=== PATIENT | female | born 1980 | race Caucasian/White ===

== ENCOUNTER 2019-04-14 20:53 | Inpatient (IN) | payer OTHER, SELFPAY ==
--- NOTE | ~2019-04-14 | XR_ITS ---
EXAMINATION: XR chest 2V DATE: 04/15/2019 07:27 INDICATION: Asthma. TECHNIQUE: Frontal and lateral views of the chest were obtained. COMPARISON: Chest single view 07/23/2017 FINDINGS: The chest demonstrates clear lungs without pneumonia, pleural effusion, or pneumothorax. Th e heart size is normal. IMPRESSION: 1. No acute cardiopulmonary disease. Reviewed, dictated and finalized at location A. NING BATH PERSON
--- NOTE | ~2019-04-14 | NM_ITS ---
EXAM: NM gastric emptying study DATE: 04/17/2019 17:10 INDICATION: Frequent nausea and vomiting. Assess for gastroparesis. TECHNIQUE: A gastric emptying study was performed using the methodology of Yeny BATES, et al. J Nucl Med 2007; 48:568-572. The patient was given a meal consisting of 2 scrambled eggs labeled with 1 mCi Tc-99m sulfur colloid, 2 slices of toast, two packages of jam, and approximately 120 mL of water. Si multaneous anterior and posterior 1-min images of the abdomen were obtained with the patient supine a t multiple time points over a total period of 4 hours. The geometric mean of anterior and posterior v iews was determined, and the percentage retention was calculated for each time point. COMPARISON: 07/25/2015 FINDINGS: Gastric retention of the radiotracer-labeled meal was 100%, 97%, and 32% at the 1-hour, 2-hour, and 4 -hour time points, respectively. With this technique, apparent rapid gastric emptying is suggested by <30% gastric retention at 1 hour. Delayed gastric emptying is defined by gastric retention of >90% a t 1 hour, >60% retention at 2 hours, or >10% retention at 4 hours. IMPRESSION: 1. Delayed gastric emptying. Reviewed, dictated and finalized at location A. RVISOR REMELT
[2019-04-14] MEDS: SODIUM CHLORIDE 0.45% 1,000 ML 125 ML IV CONT (23:03)
[2019-04-14 23:05] VITALS: BP 153/91; PULSE 123; RESP 20; TEMP 36.4; O2SAT 98; BMI 42.2
--- NOTE | 2019-04-14 23:14 | PC.NURSE ---
This patient, Alannah Ruano, was admitted to 2 Medical Room 245-. Patient/family oriented to hospital policies and general routines including ID bracelet, bed and alarms, visiting hours, pain management, procedures, bathroom and other care routines, personal items, smoking policy, room service/diet, and visiting hours. Valuables list has been completed. Information on how to activate the Rapid Response Team has been discussed. Patient/Family are encouraged to report perceived risks to care and to ask questions if they do not understand what they are told or what they should do. Dr. Nascimento called and orders received.
[2019-04-14] MEDS: MONTELUKAST SODIUM 10 MG TABLET PO (23:50)
[2019-04-15] VITALS (17 sets, daily range): BP systolic 112–160; BP diastolic 67–98; PULSE 93–116; RESP 12–24; TEMP 36.3–38.1; O2SAT 93–100
[2019-04-15 06:19] LABS: Basophils Absolute Auto 0.1 K/mm3 (0.0-0.1); Basophils Percent Auto 0.6 % (0.2-1.2); Eosinophils Absolute Auto 0.2 K/mm3 (0-0.3); Eosinophils Percent Auto 1.8 % (0-4.4); Hematocrit 40.7 % (37.0-47.0); Hemoglobin 13.9 g/dL (12.0-15.0); Immature Granulocyte Absolute 0.06 K/mm3 (0.00-0.031); Immature Granulocyte Percent A 0.7 % (0-0.5); Lymphocytes Absolute Auto 1.62 K/mm3 (0.9-3.2); Lymphocytes Percent Auto 17.9 % (18.3-44.2); Mean Corpuscular HGB Conc 34.2 g/dl (32-36); Mean Corpuscular Hemoglobin 29.1 pg (26-34); Mean Corpuscular Volume 85.3 fl (80-100); Monocytes Absolute Auto 0.7 K/mm3 (0.1-0.6); Monocytes Percent Auto 8.2 % (2.6-8.5); Neutrophils Absolute Auto 6.4 K/mm3 (1.3-6.7); Neutrophils Percent Auto 70.8 % (45.5-73.1); Platelet Count Result 184 k/mm3 (150-375); Red Blood Count 4.77 M/mm3 (4.2-5.4); Red Cell Distribution Width 12.5 % (11.5-14.5); White Blood Count 9.1 K/mm3 (4.5-10.0)
--- NOTE | 2019-04-15 07:15 | PM.IMHP ---
H&P: HPI History of Present Illness Chief complaint: dm hypertension,perineal abccess Narrative: Alannah Ruano is a 39 year old female Review of Systems Review of Systems: All systems reviewed & are unremarkable except as noted in HPI and below PMFSH Past Medical History Medical History Asthma Eczema GERD (gastroesophageal reflux disease) Kidney stones Migraines PCOS (polycystic ovarian syndrome) Seasonal allergies Surgical History Surgical History S/P cubital tunnel release Left S/P tonsillectomy and adenoidectomy Family History Family History (Updated 04/15/19 @ 07:18 by Whitney Pinto PA-C) Father Family history of heart disease in male family member before age 55 Diabetes mellitus Asthma Hypertension Sibling Hypertension Social History Social History Smoking status: Former smoker Tobacco type: cigarettes Smoking end date: 04/14/19 Alcohol intake: never Substance use: never Gender identity (if verbalized by the patient): Female Spiritual care concerns: No Agree to blood products: Yes Meds Home Medications and Allergies Home Medications Medication Instructions Recorded Confirmed Type Benadryl 25 mg BYMOUTH QID PRN 04/14/19 04/14/19 History albuterol sulfate [ProAir HFA] 2 puff INHALATION QID PRN 04/14/19 04/14/19 History carbamazepine 100 mg BYMOUTH TID 04/14/19 04/14/19 History clonazepam 0.5 mg PO DAILY 04/14/19 04/14/19 History fenofibrate 160 mg PO DAILY 04/14/19 04/14/19 History fexofenadine-pseudoephedrine 1 tablet PO QAM PRN 04/14/19 04/14/19 History [Sherri-D 24 Hour] lisinopril 20 mg PO DAILY 04/14/19 04/14/19 History montelukast [Singulair] 10 mg PO HS 04/14/19 04/14/19 History ondansetron HCl [Zofran] 8 mg PO Q8H PRN 04/14/19 04/14/19 History propranolol 40 mg PO DAILY 04/14/19 04/14/19 History rizatriptan 10 mg PO ONCE PRN 04/14/19 04/14/19 History sertraline 200 mg PO DAILY 04/14/19 04/14/19 History topiramate 400 mg PO DAILY 04/14/19 04/14/19 History Vital Signs Vital Signs - 24 hr 04/14/19 23:05 04/15/19 06:28 Temperature 97.6 F 97.4 F L Pulse Rate 123 H 94 Respiratory Rate 20 18 Blood Pressure 153/91 H 122/67 Pulse Oximetry 98 98 Exam Narrative: Exam Narrative: General: 39-year-old woman laying flat in bed. Appears comfortable. In no acute distress. Skin: No jaundice or cyanosis. Good skin turgor. Neck: Full range of motion. Supple. Nontender. Respiratory: Lungs are clear to auscultation bilaterally. No bony chest wall tenderness. Cardiovascular: The heart has a regular rate and rhythm without murmur. No carotid bruits. Lower extremities: No lower extremity edema. Distal pulses are easily palpated. No calf tenderness to palpation. Gastrointestinal: The abdomen is soft, nontender and nondistended with active bowel sounds. Psychiatric: Lucid and oriented. Memory intact. Neurologic: No focal deficits. Speech is clear. No facial drooping. H&P: Results Labs Labs: Short CBC 04/15/19 Range/Units 04:49 WBC 9.1 (4.5-10.0) K/mm3 Hgb 13.9 (12.0-15.0) g/dL Hct 40.7 (37.0-47.0) % Plt Count 184 (150-375) k/mm3 Quality VTE Prophylaxis VTE prophylaxis: mechanical ordered
--- NOTE | 2019-04-15 07:50 | PC.NURSE ---
Spoke with Dr. Nascimento in regards to patients AM oral medications. Received orders okay to give meds even though patient NPO for surgery today.
[2019-04-15 08:15] LABS: Estimated CRCL calculation 189 ml/min; Estimated Glomerular Filt Rate > 60
[2019-04-15] MEDS: ONDANSETRON INJ 4 MG/2 ML VIAL 8 MG IV PUSH ×2 (08:25→16:28)
[2019-04-15 08:46] LABS: Glucose Point of Care 322 (65-105)
--- NOTE | 2019-04-15 09:09 | PM.IMCN ---
Assessment and Plan Assessment and plan (1) Abscess of right buttock: Code(s): L02.31 - Cutaneous abscess of buttock Status: Acute Assessment and Plan: Dr. Nascimento SEPARATOR OPERATOR [employer] is the admitting physician and is going to take the patient to the OR this afternoon for an I&D. The patient was started on IV vancomycin. Dr. Nascimento consulted infectious disease doctor pattern painter on the case for further evaluation and treatment with IV antibiotics. The patient's pain is improved today rated 3/10. Will continue IV antibiotics at this time. Continue monitoring patient's symptoms and appreciate human resources benefits coordinator and Infectious Disease input. (2) Hyperglycemia due to type 2 diabetes mellitus: Code(s): E11.65 - Type 2 diabetes mellitus with hyperglycemia Status: Acute Assessment and Plan: The patient serum glucose was 322 this morning. The patient is NPO at this time and I gave her 1 dose of 5 units NovoLog. Instructed the nurse to recheck her glucose 2 hours after administration and prior to surgery. Will check hemoglobin A1c in the morning. Continue monitoring glucose ACHS, sliding scale NovoLog as needed, continue patient's home long-acting insulin. Hypoglycemia protocol in place. (3) Nausea & vomiting: Code(s): R11.2 - Nausea with vomiting, unspecified Status: Acute Assessment and Plan: Patient reports multiple episodes of vomiting over the last few days. Currently she is no longer nauseous. Continue IV Zofran as needed for nausea. (4) Essential (primary) hypertension: Code(s): I10 - Essential (primary) hypertension Status: Acute Assessment and Plan: Patient's blood pressure was elevated on arrival. Today BP is 120/70. Will continue monitoring her blood pressure and continue her home medications. [facility] Data of Consult Consult date: 04/15/19 Requesting Physician: Kylee Nascimento MD Primary Care Provider: Bisi Low, PA-C Consult Narrative Narrative: Alannah Ruano is a 39 year old female with a history of diabetes mellitus type 2, asthma, chronic sinusitis, who was directly admitted by Dr. Nascimento fws faculty assistant for further evaluation and treatment for right buttock abscess. The patient reports having multiple abscesses over the last few months. She had 1 over her right shoulder, and on her stomach which both opened and drained on their own. Then she had a abscess on her labia that she saw Dr. Nascimento and he performed an I&D. The patient reports having swelling, pain, warmth to her right buttock which has been gradually worsening since Saturday (4 days). The patient reports associated symptoms of nausea, vomiting, decreased appetite, subjective fevers and chills. The patient called Dr. Nascimento's office for an appointment yesterday and upon his evaluation he decided to directly admit her into the hospital for IV antibiotics and to take the patient to the OR for an I and D. The patient states her glucose is normally well controlled in ranges about 120 before breakfast and around 140 before dinner. She states when she is normally sick she changes her diet to a Brat diet and this normally cause her glucose was to be more elevated than normal and she is normally unable to keep her glipizide down and does not administer her insulin. She has not taken her diabetes medication since Saturday when her symptoms began. Currently the patient's pain to her buttock is rated 3/10. She was taking Tylenol and Excedrin as needed at home with only slight relief. She reports having headache to the back of her head which is ?aching? in nature. She denies any vision changes, neck pain, neck stiffness. She also reports sinus pressure, postnasal drip, and a dry cough. She denies any dysuria, frequent urination, calf pain, leg swelling, chest
[2019-04-15] MEDS: INSULIN ASPART (*BKC) 100 UNITS/ML SUB-Q ×2 (09:35→16:31)
[2019-04-15] MEDS: SODIUM CHLORIDE 0.45% 1,000 ML 125 ML IV CONT ×2 (09:40→21:52)
--- NOTE | 2019-04-15 12:12 | WPDINFPN2 ---
Progress Note: A&P Assessment and Plan (1) Abscess of right buttock: Code(s): L02.31 - Cutaneous abscess of buttock Status: Acute Assessment and Plan: perirectal abscess. DM, poor control REC AmpSulbactam #1, Vanc #2. Request intra-operative cultures: Aerobic and anaerobic. Subjective Date/time seen: 04/15/19 12:12 Objective Data Vital Signs Vital Signs: Vital Signs - 24 hr 04/14/19 23:05 04/15/19 06:28 Temperature 36.4 C 36.3 C L Pulse Rate 123 H 94 Respiratory Rate 20 18 Blood Pressure 153/91 H 122/67 Pulse Oximetry 98 98 Intake/Output Intake/Output: Intake & Output 04/12/19 04/13/19 04/14/19 04/15/19 23:59 23:59 23:59 23:59 Intake Total 1500 Output Total 600 Balance 900 Meds/Results Medications: Active Medications Generic Name Dose Route Start Last Admin Trade Name Freq PRN Reason Stop Dose Admin Acetaminophen 650 mg 04/14/19 22:28 Tylenol Tablet PO Q4H PRN Pain or Fever Albuterol 2 puff 04/14/19 22:30 Proventil Hfa INHALATION QIDRT PRN Shortness Of Breath Carbamazepine 100 mg 04/15/19 09:00 04/15/19 09:05 Tegretol Chew BY MOUTH 05/15/19 09:01 Not Given TID CARMEN Clonazepam 0.5 mg 04/15/19 09:00 04/15/19 09:05 Klonopin Tablet PO Not Given DAILY CARMEN Dextrose 12.5 gm 04/15/19 09:03 Dextrose 50% Syringe IV PUSH PRN PRN Hypoglycemia Protocol Diphenhydramine HCl 25 mg 04/14/19 22:30 Benadryl Cap BY MOUTH QID PRN Itching Fenofibrate 160 mg 04/15/19 09:00 04/15/19 09:05 Fenofibrate PO Not Given DAILY [facility] Fentanyl Citrate 100 mcg 04/15/19 07:47 04/15/19 11:06 Sublimaze IV PUSH 100 mcg Q2H PRN Administration PAIN 7-10 Glucagon 1 mg 04/15/19 09:03 Glucagon For Inj IM PRN PRN Hypoglycemia Protocol Glucose 15 gm 04/15/19 09:03 Glutose 15 PO PRN PRN Hypoglycemia Protocol Sodium Chloride 1,000 mls @ 125 mls/hr 04/14/19 22:25 04/15/19 09:40 Sodium Chloride 0.45% IV CONT 125 mls/hr .Q8H CARMEN Administration Vancomycin HCl 1,750 mg in 500 mls @ 250 mls/hr 04/15/19 12:00 Vancomycin 1,750 Mg/D5w 500 Ml IVPB Q12H CARMEN Dextrose 1,000 mls @ 100 mls/hr 04/15/19 09:03 Dextrose 5% 1,000 Ml IVPB PRN PRN Hypoglycemia Protocol Insulin Aspart 2 - 5 units 04/15/19 12:00 Novolog SUB-Q TIDWM CARMEN Protocol Lisinopril 20 mg 04/15/19 09:00 04/15/19 09:05 Prinivil PO Not Given DAILY [facility] Loratadine/Pseudoephedrine Sulfate 1 tab 04/14/19 22:30 Claritin-D 24 Hour Tablet PO QAM PRN Allergy Symptoms Montelukast Sodium 10 mg 04/14/19 23:30 04/14/19 23:50 Singulair PO 10 mg HS CARMEN Administration Ondansetron HCl 8 mg 04/15/19 07:48 04/15/19 08:25 Zofran Inj IV PUSH 8 mg Q8HR PRN Administration Nausea Propranolol HCl 40 mg 04/15/19 09:00 04/15/19 09:05 Inderal PO Not Given DAILY [facility] Rizatriptan Benzoate 10 mg 04/14/19 22:30 Maxalt Sander Portable Machine PO DAILY PRN Headache Sertraline HCl 200 mg 04/15/19 09:00 04/15/19 09:05 Zoloft PO Not Given DAILY [facility] Topiramate 200 mg 04/15/19 09:00 04/15/19 09:05 Topamax PO Not Given BID [facility] Radiology Results: ITS Impressions Chest X-Ray 04/15/19 07:29 IMPRESSION: 1. No acute cardiopulmonary disease. Labs Labs: Laboratory Results - last 24 hr 04/15/19 04/15/19 04/15/19 04:49 07:58 08:32 WBC 9.1 RBC 4.77 Hgb 13.9 Hct 40.7 MCV 85.3 MCH 29.1 MCHC 34.2 RDW 12.5 Plt Count 184 MPV 9.0 Immature Gran % (Auto) 0.7 H Neut % (Auto) 70.8 Lymph % (Auto) 17.9 L [place] % (Auto) 8.2 Eos % (Auto) 1.8 Baso % (Auto) 0.6 Lymph # (Auto) 1.62 [place] # (Auto) 0.7 H Eos # (Auto) 0.2 Baso # (Auto) 0.1 Abs Immat Gran (auto) 0.06 H Absolute Neuts (auto) 6.4 Absolute Nuclea
--- NOTE | 2019-04-15 12:26 | PM.IMHP ---
H&P: HPI History of Present Illness Chief complaint: dm hypertension,perineal abccess Narrative: Alannah Ruano is a 39 year old female she has recurrence vulvar and perineal abscesses. She presented yesterday with a painful abscess at the right gluteal fold, medially. It is been present and getting worse for about a week. There has been no discharge from the area. It is firm and hard. It covers a a large area according to the patient. We have drained 2 previous abscess in this area over the last year. Her pelvis complicated by obesity, diabetes and hypertension. She reports feeling a fever. She says she measured a fever at home. She denies any nausea or vomiting. She denies any chest pain or shortness of breath. Review of Systems Constitutional: Constitutional: Reports no additional constitutional complaints, Denies fatigue, Denies headache(s), Denies lethargy and Denies weakness Eyes: Eyes: Reports no additional eye complaints, Denies blurry vision and Denies photophobia ENT: Reports as per HPI, Denies headache(s) and Denies neck pain Cardiovascular: Cardiovascular: Denies chest pain, Denies diaphoresis, Denies leg edema, Denies palpitations and Denies dyspnea Respiratory: Respiratory: Denies hemoptysis, Denies dyspnea and Denies wheezing Gastrointestinal: Gastrointestinal: Denies abdominal pain, Denies melena, Denies bloating, Denies hematochezia, Denies nausea and Denies vomiting Genitourinary: Genitourinary: Reports no additional female genitourinary complaints Musculoskeletal: Musculoskeletal: Denies joint swelling, Denies neck pain, Denies numbness and Denies stiffness Neurologic: Denies Abnormal speech present, Denies confusion, Denies headache(s), Denies numbness and Denies weakness Psychiatric: Psychiatric: Denies anxiety, Denies confusion, Denies depression, Denies homicidal ideation and Denies suicidal ideation Endocrine: Endocrine: Denies fatigue and Denies palpitations Allergic/Immunologic: Allergic/Immunologic: Denies wheezing PMFSH Past Medical History Medical History (Updated 04/15/19 @ 11:14 by Whitney Pinto PA-C) Asthma Chronic sinusitis Diabetes mellitus Eczema Essential (primary) hypertension GERD (gastroesophageal reflux disease) HLD (hyperlipidemia) Kidney stones Migraines PCOS (polycystic ovarian syndrome) Seasonal allergies Surgical History Surgical History (Updated 04/15/19 @ 11:14 by Whitney Pinto PA-C) S/P cubital tunnel release Left S/P myringotomy with insertion of tube S/P nasal surgery Dr. Grimm for chronic sinusitis S/P tonsillectomy and adenoidectomy Family History Family History (Updated 04/15/19 @ 11:16 by Whitney Pinto PA-C) Father Family history of heart disease in male family member before age 55 Diabetes mellitus Asthma Hypertension Acute myocardial infarction Cerebrovascular accident COPD (chronic obstructive pulmonary disease) Sibling Hypertension Mother COPD (chronic obstructive pulmonary disease) Grandparent Cerebrovascular accident Alzheimer disease Parkinson disease Social History Social History (Updated 04/15/19 @ 11:17 by Whitney Pinto PA-C) Smoking status: Never smoker Alcohol intake: never Substance use: never Additional living arrangements comments: Lives in [place], [place] Occupation/Education: occupation Additional occupation/education comments: Works at a [employer] Gender identity (if verbalized by the patient): Female Spiritual care concerns: No Agree to blood products: Yes Meds Home Medications and Allergies Home Medications Medication Instructions Recorded Confirmed Type Benadryl 25 mg BYMOUTH QID PRN 04/14/19 04/14/19 History albuterol sulfate [ProAir HFA] 2 puff INHALATION QID PRN 04/14/19 04/14/19 History carbamazepine 100 mg BYMOUTH TID 04/14/19 04/14/19 History clonazepam 0.5 mg PO BID 04/14/19 04/15/19 History fenofibrate 160 mg PO DAILY 04/14/19 0
[2019-04-15 12:36] LABS: Glucose Point of Care 212 (65-105)
--- NOTE | 2019-04-15 12:49 | PC.NURSE ---
To OR per bed, IV saline locked.
--- NOTE | 2019-04-15 12:50 | PC.NURSE ---
Notified DELMER Muir of patient blood sugar recheck after receiving 5U Novolog this morning. Blood sugar now 212. Patient headed to OR. Nancy stated okay to not give patient any additional insulin. Will continue to monitor.
--- NOTE | 2019-04-15 13:14 | WPDANESEPPF ---
Anes - Initial Pre Proc Eval Procedure: Operation Date: 04/15/19 13:30 Proposed Procedures p INCISION AND DRAINAGE PERINEAL ABSCESS - Kylee Nascimento MD Date/Time: 04/15/19 13:14 Surgeon: Kylee Nascimento MD Pre Op Diagnosis: dm hypertension,perineal abccess Patient Data Age: 39 Gender: F Height: 5 ft 4 in Weight: 111.5 kg Last Vital Signs Temp 36.3 C L 04/15/19 06:28 Pulse 94 04/15/19 06:28 Resp 18 04/15/19 06:28 BP 122/67 04/15/19 06:28 Pulse Ox 98 04/15/19 06:28 Allergies Allergy/AdvReac Type Severity Reaction Status Date / Time Enviromental Allergy Sneezing Uncoded 04/15/19 07:40 Home Medications Medication Instructions Recorded Confirmed Type Benadryl 25 mg BYMOUTH QID PRN 04/14/19 04/14/19 History albuterol sulfate [ProAir HFA] 2 puff INHALATION QID PRN 04/14/19 04/14/19 History carbamazepine 100 mg BYMOUTH TID 04/14/19 04/14/19 History clonazepam 0.5 mg PO BID 04/14/19 04/15/19 History fenofibrate 160 mg PO DAILY 04/14/19 04/14/19 History lisinopril 20 mg PO DAILY 04/14/19 04/14/19 History montelukast [Singulair] 10 mg PO HS 04/14/19 04/14/19 History ondansetron HCl [Zofran] 8 mg PO Q8H PRN 04/14/19 04/14/19 History propranolol 40 mg PO DAILY 04/14/19 04/14/19 History rizatriptan 10 mg PO ONCE PRN 04/14/19 04/14/19 History sertraline 200 mg PO DAILY 04/14/19 04/14/19 History topiramate 400 mg PO DAILY 04/14/19 04/14/19 History fexofenadine [Sherri Allergy] 180 mg PO DAILY 04/15/19 04/15/19 History glimepiride 4 mg PO BID 04/15/19 04/15/19 History insulin glargine [Basaglar KwikPen 68 unit SUBCUT HS 04/15/19 04/15/19 History U-100 Insulin] Laboratory Tests 04/15/19 04/15/19 04/15/19 04:49 07:58 08:32 WBC 9.1 K/mm3 K/mm3 (4.5-10.0) RBC 4.77 M/mm3 M/mm3 (4.2-5.4) Hgb 13.9 g/dL g/dL (12.0-15.0) Hct 40.7 % % (37.0-47.0) MCV 85.3 fl fl (80-100) MCH 29.1 pg pg (26-34) MCHC 34.2 g/dl g/dl (32-36) RDW 12.5 % % (11.5-14.5) Plt Count 184 k/mm3 k/mm3 (150-375) MPV 9.0 fl fl (7.4-10.4) Immature Gran % (Auto) 0.7 % H % (0-0.5) Neut % (Auto) 70.8 % % (45.5-73.1) Lymph % (Auto) 17.9 % L % (18.3-44.2) [place] % (Auto) 8.2 % % (2.6-8.5) Eos % (Auto) 1.8 % % (0-4.4) Baso % (Auto) 0.6 % % (0.2-1.2) Lymph # (Auto) 1.62 K/mm3 K/mm3 (0.9-3.2) [place] # (Auto) 0.7 K/mm3 H K/mm3 (0.1-0.6) Eos # (Auto) 0.2 K/mm3 K/mm3 (0-0.3) Baso # (Auto) 0.1 K/mm3 K/mm3 (0.0-0.1) Abs Immat Gran (auto) 0.06 K/mm3 H K/mm3 (0.00-0.031) Absolute Neuts (auto) 6.4 K/mm3 K/mm3 (1.3-6.7) Absolute Nucleated RBC 0.0 K/mm3 K/mm3 (0.0-0.012) Nucleated RBC % 0.0 % % (0.0-0.2) Creatinine 0.40 mg/dL L mg/dL (0.7-1.0) Estim Creat Clear Calc 189 ml/min ml/min Estimated GFR > 60 (59 - ) POC Capillary Glucose 322 mg/dl H mg/dl (65-105) 04/15/19 12:33 WBC RBC Hgb Hct MCV MCH MCHC RDW Plt Count MPV Immature Gran % (Auto) Neut % (Auto) Lymph % (Auto) [place] % (Auto) Eos % (Auto) Baso % (Auto) Lymph # (Auto) [place] # (Auto) Eos # (Auto) Baso # (Auto) Abs Immat Gran (auto) Absolute Neuts (auto) Absolute Nucleated RBC Nucleated RBC % Creatinine Estim Creat Clear Calc Estimated GFR POC Capillary Glucose 212 mg/dl H mg/dl (65-105) Patient hx anesthesia problems: none Family hx anesthesia problems: none [facility] Past Medical History Medical History Asthma Chronic sinusitis Diabetes mellitus Eczema Essential (primary) hypertension GERD (gastroesophageal reflux disease) HLD (h
[2019-04-15] MEDS: LACTATED RINGERS 1,000 ML 30 ML IV CONT ×2 (13:32→15:16)
[2019-04-15] MEDS: AMPICILLIN SULB 3 GM/NS 100 ML 3 GM/100 ML VIAL IVPB ×3 (14:13→23:14)
--- NOTE | 2019-04-15 14:23 | SUR.OPER ---
culture given to sara in lab at [id number]
--- NOTE | 2019-04-15 14:26 | P.OP_ITS ---
Procedure Note - Detailed Date of procedure: 04/15/19 Pre-op diagnosis: dm hypertension,perineal abccess Post-op diagnosis: same Procedure performed: Incision and drainage of perineal abscess Description of procedure: The patient was taken the operating room. She was prepped and draped in the dorsal lithotomy position. The flocculent area of the abscess was identified. The abscess was located in the medial right gluteal fold. It was just adjacent to the perineum. The entire indurated area was about 15 cm. The flocculent area was about 4 cm. The flocculent area was stabbed with a scalpel. A 3 cm incision was made in this area. The incision ran from anterior to posterior. Copious amounts of pus drained from the abscess. The inner cavity of the abscess was probed. It was a single open cavity. It was debrided. It was debrided using a [place] that was soaked with Betadine using a forceps. When that was completed stay sutures were placed in each side of the linear incision to keep it open. It was then packed with half- inch iodoform gauze. The procedure was terminated. The surrounding tissue was infiltrated with lidocaine. She tolerated the procedure well. She does take cover stable condition. Sponge lap and needle counts were correct x2. Anesthesia: GETA Surgeon: Kylee Nascimento MD Estimated blood loss (mL): 25 Packing: Yes Complications: No immediate complications Condition: stable Disposition: PACU Findings: Three and half cm perineal abscess cavity. It was a single cavity. It was located between the perineum and the right gluteal fold. This is the area where the gluteal fold the medial superior thigh and the perineum come together on the patient's right. The total area of induration was 15 x 10 cm.
[2019-04-15] MEDS: LIDO 1%/EPINEPHRINE 1:100,000 20 ML VIAL 10 ML INFILTRATE (14:27)
[2019-04-15] MEDS: ONDANSETRON INJ 4 MG/2 ML VIAL IV PUSH (15:03)
--- NOTE | 2019-04-15 15:40 | SUR.PHASEI ---
1541 RESP THERAPY AT BEDSIDE FOR TREATMENT
--- NOTE | 2019-04-15 15:43 | SUR.PHASEI ---
1433 PT VANCOMYCIN CONTINUES PER PLUM PUMP
[2019-04-15 15:52] LABS: Glucose Point of Care 374 (65-105)
--- NOTE | 2019-04-15 15:58 | SUR.PHASEI ---
1558 report given to floor rn, all questions answered. rn aware of pt blood sugar and states she will follow their protocol.
--- NOTE | 2019-04-15 16:23 | PC.NURSE ---
Returned from OR per bed. Report received from SILVER Grant.
[2019-04-15 16:48] LABS: Glucose Point of Care 379 (65-105)
--- NOTE | 2019-04-15 17:05 | CONS_ITS ---
DATE OF CONSULTATION: 04/15/2019 REASON FOR CONSULTATION: Perirectal abscess. HISTORY OF PRESENT ILLNESS: The patient is a 39-year-old female who 3 months ago had a right labial abscess, which required incision and drainage and postoperative oral antibiotics with clinical resolution. In the interim, she has had skin abscesses in the right upper quadrant and in the left posterior shoulder as well, neither one of these required operative intervention. Otherwise, she was in her usual state of health until about 9 days before admission when she developed chills without rigors, sweats, and temperature is high as 38.9. Two days prior to admission, she had new onset of swelling in the right perirectal area, which progressed over the next 48 hours. The area has been painful with pressure or whenever she sits. Also painful with passage of her bowel movement. She denies any skin trauma and there has been no drainage at this time. She was admitted last evening and has been started on vancomycin. Consultation was requested. She has been on no antibiotics from the last month for any other reason and no longer-term fevers. ALLERGIES: NO DRUG ALLERGIES. PRESENT MEDICATIONS: As above. No immunosuppressants. HABITS: No alcohol. No tobacco. PAST MEDICAL HISTORY: Hypertension, diabetes, obesity, chronic sinusitis, eczema, GERD, hyperlipidemia, nephrolithiasis, migraine headaches, PCOS, myringotomy, and sinus surgery. The latter was performed by Dr. Redmond some 3 years ago with improvement in her chronic sinusitis. SOCIAL HISTORY: She is single. Lives locally. Works at [employer]. FAMILY HISTORY: Diabetes, stroke, and COPD. REVIEW OF SYSTEMS: Blood sugars usually 130 to 170, but higher recently. Her A1c sometime last year was over 11% and Dr. Herrera adjusted the patient's medications; otherwise, endocrine, allergic, immunologic, constitutional, skin, GI, negative. PHYSICAL EXAMINATION: GENERAL: This is a young female, appears her actual age. No distress. VITAL SIGNS: Afebrile, 94, 18, 122/67, 98% on room air. SKIN: No generalized rashes. Warm and dry. EENT: The conjunctivae appear clear. The oral mucosa is normal. Teeth in excellent repair. NECK: No masses. No thyromegaly. No meningismus (viral meningitis 1 year ago). LUNGS: Clear to auscultation and percussion. CARDIAC: Regular rate and rhythm. No murmur, gallop, or rub. Pulses are 1+. ABDOMEN: Obese. No tenderness. No masses. EXTREMITIES: Well perfused. No clubbing, cyanosis, or edema. PELVIC: External vaginal exam reveals no abnormalities. She has a 3 cm indurated tender subcutaneous nodule in the right perirectal at approximately 5 o'clock position. No overlying erythema nor sinus tract. LABORATORY DATA: Blood cultures, no growth after short incubation. White blood cell count 9.1, hemoglobin 13.9, platelets are 184, her differential was normal. Creatinine 0.4. Accu-Chek 322. The remainder of chemistries are not yet available. RADIOLOGY DATA: Chest x-ray normal. ASSESSMENT: 1. Right buttock pain with fever, chills, sweats, suspected perirectal abscess. It is indeterminate if this is cutaneous or rectal in origin. There is no history of rectal fissures, rectal surgery, or previous I and D. 2. Past labial abscess, the patient is unaware of any positive microbiology. 3. Diabetes mellitus, poorly controlled overall. RECOMMENDATIONS: 1. Glycemic control underway. 2. Addition of ampicillin-sulbactam to the vancomycin. Target trough 10 to 15. 3. When taken for I and D today either bedside or operating room, request aerobic and anaerobic cultures. 4. We will follow up and advise on length of therapy. Thank you very much for asking me to see her.
[2019-04-15] MEDS: GLIMEPIRIDE 2 MG TABLET 4 MG PO (17:11)
[2019-04-15] MEDS: CARBAMAZEPINE 100 MG CHEW BY MOUTH (17:11)
[2019-04-15] MEDS: ACETAMINOPHEN 325 MG TABLET 650 MG PO (17:12)
[2019-04-15] MEDS: TOPIRAMATE 100 MG TABLET 200 MG PO (17:14)
[2019-04-15] MEDS: PROMETHAZINE HCL 25 MG/ML AMPUL 12.5 MG IV PUSH ×2 (17:47→22:31)
[2019-04-15 18:15] LABS: Glucose Point of Care 373 (65-105)
[2019-04-15] MEDS: INSULIN GLARGINE (*BKC) 100 UNITS/ML 40 UNITS SUB-Q (18:33)
[2019-04-15] MEDS: MONTELUKAST SODIUM 10 MG TABLET PO (21:52)
[2019-04-15 22:13] LABS: Glucose Point of Care 274 (65-105)
[2019-04-16] MEDS: PROMETHAZINE HCL 25 MG/ML AMPUL 12.5 MG IV PUSH (03:26)
[2019-04-16] MEDS: AMPICILLIN SULB 3 GM/NS 100 ML 3 GM/100 ML VIAL IVPB ×4 (06:01→23:36)
[2019-04-16 06:36] LABS: Basophils Absolute Auto 0.1 K/mm3 (0.0-0.1); Basophils Percent Auto 0.6 % (0.2-1.2); Eosinophils Absolute Auto 0.1 K/mm3 (0-0.3); Eosinophils Percent Auto 0.6 % (0-4.4); Hematocrit 39.2 % (37.0-47.0); Immature Granulocyte Absolute 0.07 K/mm3 (0.00-0.031); Immature Granulocyte Percent A 0.8 % (0-0.5); Lymphocytes Absolute Auto 1.02 K/mm3 (0.9-3.2); Lymphocytes Percent Auto 11.4 % (18.3-44.2); Mean Corpuscular HGB Conc 33.2 g/dl (32-36); Mean Corpuscular Hemoglobin 28.7 pg (26-34); Mean Corpuscular Volume 86.5 fl (80-100); Mean Platelet Volume 8.9 fl (7.4-10.4); Monocytes Absolute Auto 0.6 K/mm3 (0.1-0.6); Monocytes Percent Auto 7.2 % (2.6-8.5); Neutrophils Absolute Auto 7.1 K/mm3 (1.3-6.7); Neutrophils Percent Auto 79.4 % (45.5-73.1); Platelet Count Result 199 k/mm3 (150-375); Red Blood Count 4.53 M/mm3 (4.2-5.4); Red Cell Distribution Width 12.6 % (11.5-14.5); White Blood Count 8.9 K/mm3 (4.5-10.0)
[2019-04-16 06:41] VITALS: BP 142/71; PULSE 78; RESP 16; TEMP 35.7; O2SAT 99
[2019-04-16 06:49] LABS: Hemoglobin A1C 10.8 % (<5.7)
[2019-04-16 06:50] LABS: Blood Urea Nitrogen 8 mg/dL (7-17); Calcium 8.8 mg/dL (8.4-10.2); Carbon Dioxide 22 mmol/L (22-30); Chloride 99 mmol/L (98-107); Estimated CRCL calculation 189 ml/min; Estimated Glomerular Filt Rate > 60; Glucose 272 mg/dL (65-105); Potassium 4.8 mmol/L (3.4-5.0); Sodium 132 mmol/L (137-145)
[2019-04-16] MEDS: ONDANSETRON INJ 4 MG/2 ML VIAL 8 MG IV PUSH ×2 (09:18→17:31)
[2019-04-16 09:45] LABS: Glucose Point of Care 185 (65-105)
[2019-04-16] MEDS: SODIUM CHLORIDE 0.45% 1,000 ML 125 ML IV CONT (10:21)
[2019-04-16] MEDS: TOPIRAMATE 100 MG TABLET 200 MG PO ×2 (10:22→16:42)
[2019-04-16] MEDS: FENOFIBRATE 160 MG TABLET PO (10:22)
[2019-04-16 10:23] VITALS: PULSE 74
[2019-04-16] MEDS: CLONAZEPAM 0.5 MG TAB PO ×2 (10:23→16:35)
[2019-04-16] MEDS: PROPRANOLOL HCL 40 MG TABLET PO (10:23)
[2019-04-16] MEDS: GLIMEPIRIDE 2 MG TABLET 4 MG PO ×2 (10:24→16:34)
[2019-04-16] MEDS: lisinopriL 20 MG TABLET PO (10:25)
[2019-04-16] MEDS: CARBAMAZEPINE 100 MG CHEW BY MOUTH ×2 (10:25→16:34)
[2019-04-16 11:41] LABS: Vancomycin Trough 7.3 ug/mL (10.0-20.0)
--- NOTE | 2019-04-16 12:19 | PM.IMPN ---
Progress Note: A&P Assessment and Plan (1) Abscess of right buttock: Code(s): L02.31 - Cutaneous abscess of buttock Status: Acute Assessment and Plan: Dr. Nascimento FELT HAT FLANGING OPERATOR is the admitting physician and took the patient to the OR for an I&D on 04/15/2019. Dr. Nascimento consulted infectious disease doctor painter maintenance on the case for further evaluation and treatment with IV antibiotics. The patient's pain is rated 8/10. Infectious disease started the patient on IV Unasyn yesterday afternoon and continued IV vancomycin for therapy at this time. The patient's culture results from abscess has grown Gram-positive cocci in chains. We are pending official culture results and Infectious Disease recommendations for antibiotic usage and length of antibiotic therapy. Continue monitoring patient's symptoms and appreciate chainstitch tunnel elastic operator and Infectious Disease input. (2) Hyperglycemia due to type 2 diabetes mellitus: Code(s): E11.65 - Type 2 diabetes mellitus with hyperglycemia Status: Acute Assessment and Plan: The patient serum glucose was 272 this morning. Hemoglobin A1c was 10.8% this morning. We will continue on her long acting insulin, Glargine 40 Units and Sliding Scale Insulin TIDWM. I have consulted the DM educator and Oil Well Drilling Manager for better diet and DM education. Continue monitoring glucose ACHS, sliding scale NovoLog as needed, continue patient's home long-acting insulin. Hypoglycemia protocol in place. (3) Nausea & vomiting: Code(s): R11.2 - Nausea with vomiting, unspecified Status: Acute Assessment and Plan: Patient reports multiple episodes of vomiting over the last few days. Since surgery she has had increased nausea, no vomiting. She is on Zofran and Phenergan IV as needed for nausea at this time. Due to the patient's symptoms intermittent abdominal issues, nausea, vomiting I am going to work her up for possible gastroparesis and will order a nuclear medicine gastric emptying study. Will continue monitoring the patient's symptoms in the results of her study. (4) Essential (primary) hypertension: Code(s): I10 - Essential (primary) hypertension Status: Acute Assessment and Plan: Patient's blood pressure was elevated on arrival. Today BP is 142/71, elevated this morning most likely secondary to pain and IV fluids. Will continue monitoring her blood pressure and continue her home medications. Time Spent With Patient Time with patient: 25 - 35 minutes Subjective Date/time seen: 04/16/19 12:19 Interval history: Date of service 04/16/2019: She reports being in much pain today after her surgery yesterday. Currently her pain is rated at an 8/10. She has been intermittently nauseous since her surgery at having 2 different antiemetics as helped and she has not vomited all. She has not been eating too much since surgery as well or drinking very much, due to nausea and lack of appetite. She does report some intermittent fevers and chills right after her surgery last night has not had any at today. She also reports a slight cough and feels like it is in the back of her throat and upper chest but she is unable to produce any sputum. She also reports some chest tightness which could be related to her asthma and she would like to have her albuterol inhaler. She also takes DuoNeb nebulizer treatments but she does not think she needs 20 these at this time. She denies any chest pain, shortness of breath, abdominal pain, leg swelling, calf pains, or any other symptom this time. Review of Systems Review of Systems: All systems reviewed & are unremarkable except as noted in HPI and below Exam Narrative: Exam Narrative: General: 39-year-old woman laying on her right-side in bed. Appears comfortable. In no
[2019-04-16 12:58] LABS: Glucose Point of Care 233 (65-105)
--- NOTE | 2019-04-16 13:15 | WPDANESPN ---
Anes - Prog Note Post-Op Date/Time: 04/16/19 13:15 Cardiovascular status: normal Respiratory status: normal Airway patency: baseline Mental status: baseline Post-Op hydration status: normal Vital Signs: Last Vital Signs Temp 35.7 C L 04/16/19 06:41 Pulse 74 04/16/19 10:23 Resp 16 04/16/19 06:41 BP 142/71 H 04/16/19 06:41 Pulse Ox 99 04/16/19 06:41 I/O: Intake & Output 04/15/19 04/16/19 04/16/19 23:59 07:59 15:59 Intake Total 2330 1900 100 Output Total 2100 2000 Balance 230 -100 100 Laboratory Tests 04/16/19 06:00 04/16/19 06:00 04/15/19 04/15/19 04/15/19 15:49 16:32 18:12 WBC RBC Hgb Hct MCV MCH MCHC RDW Plt Count MPV Immature Gran % (Auto) Neut % (Auto) Lymph % (Auto) [place] % (Auto) Eos % (Auto) Baso % (Auto) Lymph # (Auto) [place] # (Auto) Eos # (Auto) Baso # (Auto) Abs Immat Gran (auto) Absolute Neuts (auto) Absolute Nucleated RBC Nucleated RBC % Sodium Potassium Chloride Carbon Dioxide BUN Creatinine Estim Creat Clear Calc Estimated GFR Glucose POC Capillary Glucose 374 H 379 H 373 H Hemoglobin A1c Calcium Vancomycin Trough 04/15/19 04/16/19 04/16/19 21:59 06:00 06:00 WBC 8.9 RBC 4.53 Hgb 13.0 Hct 39.2 MCV 86.5 MCH 28.7 MCHC 33.2 RDW 12.6 Plt Count 199 MPV 8.9 Immature Gran % (Auto) 0.8 H Neut % (Auto) 79.4 H Lymph % (Auto) 11.4 L [place] % (Auto) 7.2 Eos % (Auto) 0.6 Baso % (Auto) 0.6 Lymph # (Auto) 1.02 [place] # (Auto) 0.6 Eos # (Auto) 0.1 Baso # (Auto) 0.1 Abs Immat Gran (auto) 0.07 H Absolute Neuts (auto) 7.1 H Absolute Nucleated RBC 0.0 Nucleated RBC % 0.0 Sodium 132 L Potassium 4.8 Chloride 99 Carbon Dioxide 22 BUN 8 Creatinine 0.40 L Estim Creat Clear Calc 189 Estimated GFR > 60 Glucose 272 H POC Capillary Glucose 274 H Hemoglobin A1c Calcium 8.8 Vancomycin Trough 04/16/19 04/16/19 04/16/19 06:00 09:13 11:03 WBC RBC Hgb Hct MCV MCH MCHC RDW Plt Count MPV Immature Gran % (Auto) Neut % (Auto) Lymph % (Auto) [place] % (Auto) Eos % (Auto) Baso % (Auto) Lymph # (Auto) [place] # (Auto) Eos # (Auto) Baso # (Auto) Abs Immat Gran (auto) Absolute Neuts (auto) Absolute Nucleated RBC Nucleated RBC % Sodium Potassium Chloride Carbon Dioxide BUN Creatinine Estim Creat Clear Calc Estimated GFR Glucose POC Capillary Glucose 185 H Hemoglobin A1c 10.8 H Calcium Vancomycin Trough 7.3 L 04/16/19 12:54 WBC RBC Hgb Hct MCV MCH MCHC RDW Plt Count MPV Immature Gran % (Auto) Neut % (Auto) Lymph % (Auto) [place] % (Auto) Eos % (Auto) Baso % (Auto) Lymph # (Auto) [place] # (Auto) Eos # (Auto) Baso # (Auto) Abs Immat Gran (auto) Absolute Neuts (auto) Absolute Nucleated RBC Nucleated RBC % Sodium Potassium Chloride Carbon Dioxide BUN Creatinine Estim Creat Clear Calc Estimated GFR Glucose POC Capillary Glucose 233 H Hemoglobin A1c Calcium Vancomycin Trough Microbiology 04/15/19 14:17 Abscess Wound Culture - Preliminary 04/14/19 23:12 Blood Blood Culture - Preliminary 04/14/19 23:21 Blood Blood Culture - Preliminary Post-procedural complaints: none Patient Feedback: Patient satisfied with anesthetic care.
--- NOTE | 2019-04-16 13:28 | PCDIET ---
Nutrition Consult Complete: Pt current nutrition is DBCC. Nutrition recommendation:Agree Last recorded weight is 111.5 kg. Bowel Motility: Pt c/o gas/bloating/diarrhea/constipation Labs Reviewed:A1c 10.8, Glucose 272, Na 132 Meds Noted:Novolog, Lantus Additional Notes: Seeing pt today for uncontrolled DM. Pt states struggling with GI options as long as she can remember. Pt believes her DM was caused by need for BRAT diet due to GI issues. She states a 60+lb wt gain from eating low fiber, bland foods. She cannot tolerate raw veggies and c/o diarrhea or constipation, gas, bloating. She states she was checked for celiac disease but was not eating gluten at the time of testing. I explained it would be prudent to recheck due to this as she is eating gluten at this time. Due to symptoms of gas/bloating, diarrhea/constipation and a diet low in fiber she may also benefit from SIBO testing. Pt encouraged to discuss both testing options with MD. Diabetic diet edu was provided including balancing meals with well cooked veggies and protein, and limiting carb intake to 45g per meal as well as how to calculate carb grams. Pt eats keto drink and candi bar in am and normal L&D with celery and peanut butter in the evening with insulin. Handouts and contact info were provided. We will continue to monitor PO intake and labs every seven days.
--- NOTE | 2019-04-16 13:30 | PC.NURSE ---
Patient 0900 medications given late d/t patient request. She wanted to wait until after she ate breakfast before she received medications.
[2019-04-16] MEDS: ALBUTEROL SULFATE (*SP) AEROSOL 1 PUFF 2 PUFF INHALATION (13:31)
[2019-04-16] MEDS: INSULIN ASPART (*BKC) 100 UNITS/ML SUB-Q (13:43)
--- NOTE | 2019-04-16 13:59 | WPDINFPN2 ---
Progress Note: A&P Assessment and Plan (1) Abscess of right buttock: Code(s): L02.31 - Cutaneous abscess of buttock Status: Acute Assessment and Plan: 1. Perirectal abscess. Operative findings reviewed. Gram stain as above 2. DM, poor control REC AmpSulbactam #2 (antibiotic #3), and stop vanc. F/U intra-op culture and modify accordingly. Local care. IV therapy at least 2 days more. Subjective Date/time seen: 04/16/19 13:59 Interval history: + pain, no radiation. Exam Narrative: Exam Narrative: afebrile. Teary eyed from pain Const: General: in distress Eyes: General: appearance normal, both eyes and all related structures Resp: Effort & Inspection: normal respiratory effort Auscultation: clear to auscultation bilaterally Cardio: Rate: regular rate Rhythm: regular rhythm Heart sounds: no gallops and no murmurs GI: Inspection: non-distended GI Palp: Yes Soft to palpation, No Tenderness to palpation present (GI) and No Guarding due to palpation present (GI) Objective Data Vital Signs Vital Signs: Vital Signs - 24 hr 04/15/19 14:33 04/15/19 14:45 04/15/19 14:50 Temperature 36.4 C Pulse Rate 105 H 102 H 106 H Respiratory Rate 24 H 19 22 H Blood Pressure 160/84 H 134/85 Pulse Oximetry 100 100 04/15/19 15:00 04/15/19 15:15 04/15/19 15:30 Temperature Pulse Rate 110 H 112 H 113 H Respiratory Rate 12 12 13 Blood Pressure 131/81 116/98 H 123/80 Pulse Oximetry 95 93 95 04/15/19 15:45 04/15/19 16:00 04/15/19 16:15 Temperature 37.9 C H Pulse Rate 111 H 113 H 115 H Respiratory Rate 24 H 24 H 24 H Blood Pressure 132/78 142/81 H 151/84 H Pulse Oximetry 93 94 97 04/15/19 16:30 04/15/19 17:00 04/15/19 17:12 Temperature 38.1 C H 38.1 C H 37.9 C H Pulse Rate 109 H 112 H Respiratory Rate 22 H 20 Blood Pressure 139/75 112/68 Pulse Oximetry 97 98 04/15/19 18:00 04/15/19 18:14 04/15/19 22:21 Temperature 37.3 C 37.3 C 36.6 C Pulse Rate 116 H 93 Respiratory Rate 22 H 18 Blood Pressure 131/71 126/73 Pulse Oximetry 96 99 04/16/19 06:41 04/16/19 10:23 Temperature 35.7 C L Pulse Rate 78 74 Respiratory Rate 16 Blood Pressure 142/71 H Pulse Oximetry 99 Intake/Output Intake/Output: Intake & Output 04/13/19 04/14/19 04/15/19 04/16/19 23:59 23:59 23:59 23:59 Intake Total 4930 1999 Output Total 2700 1999 Balance 2230 0 Meds/Results Medications: Active Medications Generic Name Dose Route Start Last Admin Trade Name Freq PRN Reason Stop Dose Admin Acetaminophen 650 mg 04/14/19 22:28 04/15/19 17:12 Tylenol Tablet PO 650 mg Q4H PRN Administration Pain or Fever Hydrocodone Bitart/Acetaminophen 2 tab 04/16/19 12:36 04/16/19 12:48 [place] 5-325 Mg PO 2 tab Q4H PRN Administration Pain Rated 4-6 Albuterol 2 puff 04/14/19 22:30 04/16/19 13:31 Proventil Hfa INHALATION 2 puff QIDRT PRN Administration Shortness Of Breath Albuterol 2.5 mg 04/16/19 13:12 Albuterol Sulf Neb 2.5mg/0.5ml INHALATION Q6HRT PRN Shortness Of Breath Carbamazepine 100 mg 04/15/19 09:00 04/16/19 13:42 Tegretol Chew BY MOUTH 05/15/19 09:01 Not Given TID CARMEN Clonazepam 0.5 mg 04/15/19 17:30 04/16/19 10:23 Klonopin Tablet PO 0.5 mg BID CARMEN Administration Dextrose 12.5 gm 04/15/19 09:03 Dextrose 50% Syringe IV PUSH PRN PRN Hypoglycemia Protocol Diphenhydramine HCl 25 mg 04/14/19 22:30 Benadryl Cap BY MOUTH QID PRN Itching Fenofibrate 160 mg 04/15/19 09:00 04/16/19 10:22 Fenofibrate PO 160 mg DAILY CARMEN Administration Fentanyl Citrate 25 mcg 04/16/19 05:59 04/16/19 13:38 Sublimaze IV PUSH 25 mcg Q2H PRN Administration PAIN 7-10 Glimepiride 4 mg 04/15/19 17:00 04/16/19 10:24 Amaryl PO 4 mg BIDWM CARMEN Administration Glucagon 1 mg 04/15/19 09:03 Glucagon For Inj IM PRN PRN Hypoglycemia Protocol Gl
[2019-04-16 14:00] VITALS: BP 120/55; PULSE 74; RESP 20; TEMP 36.5; O2SAT 96
[2019-04-16] MEDS: MORPHINE SULFATE 2 MG/ML INJ IV PUSH ×3 (15:06→20:28)
--- NOTE | 2019-04-16 15:54 | PM.GYNPNOP ---
MILK INSPECTOR - A/P Assessment and plan (1) Abscess of right buttock: Code(s): L02.31 - Cutaneous abscess of buttock Status: Acute Assessment and Plan: Packing was removed at the bedside. New packing was placed inside the abscess. Patient had severe pain with the packing removal and with the new packing placement. Less packing was used. This was in hopes of having less pressure pain in this area. The patient cried uncontrollably. We aim to improve her pain control. She is afebrile. The area is much softer. There is little drainage from this open area. To follow up tomorrow with dressing changes. The patient needs a consult for home health. This will be for dressing changes daily. (2) Essential (primary) hypertension: Code(s): I10 - Essential (primary) hypertension Status: Acute (3) Hyperglycemia due to type 2 diabetes mellitus: Code(s): E11.65 - Type 2 diabetes mellitus with hyperglycemia Status: Acute (4) Nausea & vomiting: Code(s): R11.2 - Nausea with vomiting, unspecified Status: Acute Postoperative Procedures: Procedures Operation Date: 04/15/19 13:30 Actual Procedures Side Surgeon p INCISION AND DRAINAGE PERINEAL ABSCESS Right Kylee Nascimento MD Time Spent With Patient Time: Total time spent is greater than 50% in coordination of care (as documented) at patient's floor/unit and/or counseling patient: Time with patient: 15 - 25 minutes MILK INSPECTOR- PN:Subj Post-Op Subjective Date/time seen: 04/16/19 15:54 the patient has persistent pain. It is severe. I was hoping that the pain to be diminished after incision and drainage. Severe sharp pain in the right buttock near the perineum. No nausea, vomiting, fever, chills. No chest pain or shortness of breath. Interval history: + pain, no radiation. Exam Const: General: healthy appearing, comfortable and no acute distress Resp: Auscultation: clear to auscultation bilaterally, no rales, no rhonchi and no wheezes Cardio: Rate: regular rate Heart sounds: no click, no murmurs and no rubs GI: Inspection: non-distended Auscultation: normal bowel sounds Extrem: General: normal to inspection, no pedal edema and no calf tenderness MILK INSPECTOR - PN: Obj Data Vital Signs Vital Signs: Vital Signs - 24 hr 04/15/19 16:00 04/15/19 16:15 04/15/19 16:30 Temperature 100.3 F H 100.6 F H Pulse Rate 113 H 115 H 109 H Respiratory Rate 24 H 24 H 22 H Blood Pressure 142/81 H 151/84 H 139/75 Pulse Oximetry 94 97 97 04/15/19 17:00 04/15/19 17:12 04/15/19 18:00 Temperature 100.6 F H 100.3 F H 99.2 F Pulse Rate 112 H 116 H Respiratory Rate 20 22 H Blood Pressure 112/68 131/71 Pulse Oximetry 98 96 04/15/19 18:14 04/15/19 22:21 04/16/19 06:41 Temperature 99.2 F 97.8 F 96.3 F L Pulse Rate 93 78 Respiratory Rate 18 16 Blood Pressure 126/73 142/71 H Pulse Oximetry 99 99 04/16/19 10:23 04/16/19 14:00 Temperature 97.7 F Pulse Rate 74 74 Respiratory Rate 20 Blood Pressure 120/55 L Pulse Oximetry 96 Intake/Output Intake/Output: Intake & Output 04/13/19 04/14/19 04/15/19 04/16/19 23:59 23:59 23:59 23:59 Intake Total 4930 2360 Output Total 2700 2000 Balance 2230 360 Meds/Results Medications: Active Medications Generic Name Dose Route Start Last Admin Trade Name Freq PRN Reason Stop Dose Admin Acetaminophen 650 mg 04/14/19 22:28 04/15/19 17:12 Tylenol Tablet PO 650 mg Q4H PRN Administration Pain or Fever Hydrocodone Bitart/Acetaminophen 2 tab 04/16/19 12:36 04/16/19 12:48 [place] 5-325 Mg PO 2 tab Q4H PRN Administration Pain Rated 4-6 Albuterol 2 puff 04/14/19 22:30 04/16/19 13:31 Proventil Hfa INHALATION 2 puff QIDRT PRN Administration Shortness Of Breath Albuterol 2.5 mg 04/16/19 13:12 Albuterol Sulf Neb 2.5mg/0.5ml INHALATION Q6HRT PRN Shortness Of Breath Carbamazepine 100 mg 04/15/19 09:00 04/16/19 13:42 Tegretol
--- NOTE | 2019-04-16 16:55 | PC.NURSE ---
Patient has an order for 1800 Lantus. Blood sugar is currently 131.However, she has not tolerated her diet today and is complaining of nausea. Currently stating she is not going to eat dinner tonight. Spoke with DELMER Abraham and received orders to nonadminister Lantus dose for this evening.
[2019-04-16 17:02] LABS: Glucose Point of Care 131 (65-105)
[2019-04-16] MEDS: SERTRALINE HCL 50 MG TABLET 200 MG PO (17:32)
--- NOTE | 2019-04-16 18:04 | PC.NURSE ---
On 04/16/19, the student, Zamzam Emanuel, provided care and completed [facility] documentation on this patient. I have reviewed the student's documentation and agree with the findings.
[2019-04-16] MEDS: MONTELUKAST SODIUM 10 MG TABLET PO (20:04)
[2019-04-16 20:05] LABS: Glucose Point of Care 127 (65-105)
[2019-04-16 22:00] VITALS: BP 100/60; PULSE 79; RESP 20; TEMP 36.6; O2SAT 98
[2019-04-16] MEDS: SODIUM CHLORIDE 0.45% 1,000 ML 100 ML IV CONT (23:36)
[2019-04-17] MEDS: AMPICILLIN SULB 3 GM/NS 100 ML 3 GM/100 ML VIAL IVPB ×3 (05:10→17:47)
[2019-04-17 05:36] LABS: Basophils Absolute Auto 0.1 K/mm3 (0.0-0.1); Basophils Percent Auto 0.9 % (0.2-1.2); Eosinophils Absolute Auto 0.2 K/mm3 (0-0.3); Eosinophils Percent Auto 2.7 % (0-4.4); Hematocrit 37.2 % (37.0-47.0); Hemoglobin 12.2 g/dL (12.0-15.0); Immature Granulocyte Absolute 0.06 K/mm3 (0.00-0.031); Immature Granulocyte Percent A 0.8 % (0-0.5); Lymphocytes Absolute Auto 2.22 K/mm3 (0.9-3.2); Lymphocytes Percent Auto 28.9 % (18.3-44.2); Mean Corpuscular HGB Conc 32.8 g/dl (32-36); Mean Corpuscular Hemoglobin 28.8 pg (26-34); Mean Corpuscular Volume 87.9 fl (80-100); Mean Platelet Volume 8.7 fl (7.4-10.4); Monocytes Absolute Auto 0.6 K/mm3 (0.1-0.6); Monocytes Percent Auto 8.2 % (2.6-8.5); Neutrophils Absolute Auto 4.5 K/mm3 (1.3-6.7); Neutrophils Percent Auto 58.5 % (45.5-73.1); Platelet Count Result 180 k/mm3 (150-375); Red Blood Count 4.23 M/mm3 (4.2-5.4); White Blood Count 7.7 K/mm3 (4.5-10.0)
[2019-04-17 05:46] LABS: Blood Urea Nitrogen 10 mg/dL (7-17); Calcium 8.8 mg/dL (8.4-10.2); Carbon Dioxide 23 mmol/L (22-30); Chloride 104 mmol/L (98-107); Estimated CRCL calculation 132 ml/min; Estimated Glomerular Filt Rate > 60; Glucose 154 mg/dL (65-105); Potassium 3.5 mmol/L (3.4-5.0); Sodium 136 mmol/L (137-145)
[2019-04-17] MEDS: MORPHINE SULFATE 2 MG/ML INJ IV PUSH ×5 (05:55→21:29)
[2019-04-17 06:00] VITALS: BP 108/59; PULSE 74; RESP 20; TEMP 36.6; O2SAT 98
--- NOTE | 2019-04-17 09:14 | PM.IMPN ---
Progress Note: A&P Assessment and Plan (1) Abscess of right buttock: Code(s): L02.31 - Cutaneous abscess of buttock Status: Acute Assessment and Plan: Dr. Nascimento PLANNING CONSULTANT is the admitting physician and took the patient to the OR for an I&D on 04/15/2019. Dr. Nascimento consulted infectious disease doctor hand touch up painter on the case for further evaluation and treatment with IV antibiotics. The patient's pain is rated 10/10, after packing was changed. Infectious disease started the patient on IV Unasyn and IV vancomycin was discontinued. The patient's culture results from abscess has grown Gram-positive cocci in chains. Still pending official results. We are pending official culture results and Infectious Disease recommendations for antibiotic usage and length of antibiotic therapy. Continue monitoring patient's symptoms and appreciate card player and Infectious Disease input. (2) Hyperglycemia due to type 2 diabetes mellitus: Code(s): E11.65 - Type 2 diabetes mellitus with hyperglycemia Status: Acute Assessment and Plan: The patient serum glucose was 154 this morning. Hemoglobin A1c was 10.8% . We will continue on her long acting insulin, Glargine 40 Units and Sliding Scale Insulin TIDWM. I have consulted the DM educator and Director Child Abuse Therapy for better diet and DM education. Continue monitoring glucose ACHS, sliding scale NovoLog as needed, continue patient's home long-acting insulin. Hypoglycemia protocol in place. (3) Nausea & vomiting: Code(s): R11.2 - Nausea with vomiting, unspecified Status: Acute Assessment and Plan: Patient reports multiple episodes of vomiting over the last few days. Since surgery she has had increased nausea, no vomiting and not eating much. She is on Zofran and Phenergan IV as needed for nausea at this time. Due to the patient's symptoms intermittent abdominal issues, nausea, vomiting I am going to work her up for possible gastroparesis and will order a nuclear medicine gastric emptying study. Pending Gastric Emptying Study. Will continue monitoring the patient's symptoms in the results of her study. (4) Essential (primary) hypertension: Code(s): I10 - Essential (primary) hypertension Status: Acute Assessment and Plan: Patient's blood pressure was elevated on arrival. Today BP is 108/59, normal today, she has not been eating much. Continue IV fluids at this time. Will continue monitoring her blood pressure and continue her home medications. Time Spent With Patient Time with patient: 25 - 35 minutes Subjective Date/time seen: 04/17/19 09:14 Interval history: Date of service 04/17/2019: The patient's pain is better controlled today. She does had her packing changed by wound care and she is in pain but it is improved from yesterday. Her pain prior to having the packing change was rated 7/10 and now it is 10/10. She also continues to have associated nausea related to her pain. She did not eat any lunch or dinner yesterday and is currently NPO for a test today. She has not vomited all. She does have decreased appetite. She denies any fevers or chills. She also reports a slight cough but is better today. She denies any chest pain, shortness of breath, abdominal pain, leg swelling, calf pains, or any other symptom this time. Review of Systems Review of Systems: All systems reviewed & are unremarkable except as noted in HPI and below Exam Narrative: Exam Narrative: General: 39-year-old woman laying on her right-side in bed with wound care at bedside. Appears comfortable. In no acute distress. Skin: Dressing in place to right buttock, dressing was not removed. Appears to be healing well at this time with only slight erythema noted around surgical opening.No jaundice or
[2019-04-17 09:45] LABS: Glucose Point of Care 114 (65-105)
[2019-04-17] MEDS: SODIUM CHLORIDE 0.45% 1,000 ML 100 ML IV CONT (11:17)
[2019-04-17 11:31] LABS: Glucose Point of Care 90 (65-105)
--- NOTE | 2019-04-17 13:29 | WPDPN ---
Progress Note: A&P Additional Plan unavailable to be seen, in Nuc Med Objective Data Vital Signs Vital Signs: Vital Signs - 24 hr 04/16/19 14:00 04/16/19 22:00 04/17/19 06:00 Temperature 36.5 C 36.6 C 36.6 C Pulse Rate 74 79 74 Respiratory Rate 20 20 20 Blood Pressure 120/55 L 100/60 108/59 L Pulse Oximetry 96 98 98 Intake/Output Intake/Output: Intake & Output 04/14/19 04/15/19 04/16/19 04/17/19 23:59 23:59 23:59 23:59 Intake Total 4930 4300 1980 Output Total 2700 2650 1050 Balance 2230 1650 930 Meds/Results Medications: Active Medications Generic Name Dose Route Start Last Admin Trade Name Freq PRN Reason Stop Dose Admin Acetaminophen 650 mg 04/14/19 22:28 04/15/19 17:12 Tylenol Tablet PO 650 mg Q4H PRN Administration Pain or Fever Hydrocodone Bitart/Acetaminophen 2 tab 04/16/19 12:36 04/17/19 08:37 [place] 5-325 Mg PO 2 tab Q4H PRN Administration Pain Rated 4-6 Albuterol 2 puff 04/14/19 22:30 04/16/19 13:31 Proventil Hfa INHALATION 2 puff QIDRT PRN Administration Shortness Of Breath Albuterol 2.5 mg 04/16/19 13:12 Albuterol Sulf Neb 2.5mg/0.5ml INHALATION Q6HRT PRN Shortness Of Breath Carbamazepine 100 mg 04/15/19 09:00 04/16/19 16:34 Tegretol Chew BY MOUTH 05/15/19 09:01 100 mg TID CARMEN Administration Clonazepam 0.5 mg 04/15/19 17:30 04/16/19 16:35 Klonopin Tablet PO 0.5 mg BID CARMEN Administration Dextrose 12.5 gm 04/15/19 09:03 Dextrose 50% Syringe IV PUSH PRN PRN Hypoglycemia Protocol Diphenhydramine HCl 25 mg 04/14/19 22:30 Benadryl Cap BY MOUTH QID PRN Itching Docusate Sodium 100 mg 04/17/19 09:14 Colace Capsule PO Q12H PRN Constipation Fenofibrate 160 mg 04/15/19 09:00 04/16/19 10:22 Fenofibrate PO 160 mg DAILY CARMEN Administration Glimepiride 4 mg 04/15/19 17:00 04/16/19 16:34 Amaryl PO 4 mg BIDWM CARMEN Administration Glucagon 1 mg 04/15/19 09:03 Glucagon For Inj IM PRN PRN Hypoglycemia Protocol Glucose 15 gm 04/15/19 09:03 Glutose 15 PO PRN PRN Hypoglycemia Protocol Guaifenesin 600 mg 04/16/19 21:00 04/16/19 20:03 Mucinex 12 Hr Tab PO 600 mg Q12HR CARMEN Administration Sodium Chloride 1,000 mls @ 100 mls/hr 04/14/19 22:25 04/17/19 12:50 Sodium Chloride 0.45% IV CONT 0 mls/hr .Q10H CARMEN Infusion Dextrose 1,000 mls @ 100 mls/hr 04/15/19 09:03 Dextrose 5% 1,000 Ml IVPB PRN PRN Hypoglycemia Protocol Ampicillin Sodium/Sulbactam Sodium 3 gm in 100 mls @ 200 mls/hr 04/15/19 13:00 04/17/19 12:43 Unasyn 3 Gm/Ns 100 Ml IVPB Infused Q6HR CARMEN Infusion Insulin Aspart 2 - 5 units 04/15/19 12:00 04/17/19 11:25 Novolog SUB-Q Not Given TIDWM [facility] Protocol Insulin Glargine 40 units 04/15/19 18:25 04/16/19 16:54 Lantus SUB-Q Not Given QPM CARMEN Ipratropium [place] 0.5 mg 04/16/19 13:12 Atrovent Neb INHALATION Q6HRT PRN Shortness Of Breath Lisinopril 20 mg 04/15/19 09:00 04/16/19 10:25 Prinivil PO 20 mg DAILY CARMEN Administration Loratadine/Pseudoephedrine Sulfate 1 tab 04/14/19 22:30 Claritin-D 24 Hour Tablet PO QAM PRN Allergy Symptoms Montelukast Sodium 10 mg 04/14/19 23:30 04/16/19 20:04 Singulair PO 10 mg HS CARMEN Administration Morphine Sulfate 2 mg 04/16/19 13:59 04/17/19 11:22 Morphine Sulfate Inj IV PUSH 2 mg Q1H PRN Administration Pain Rated 7-10 Ondansetron HCl 8 mg 02/05/20 07:48 04/16/19 17:31 Zofran Inj IV PUSH 8 mg Q8HR PRN Administration Nausea Promethazine HCl 12.5 mg 04/15/19 17:26 04/16/19 03:26 Phenergan Inj IV PUSH 12.5 mg Q4H PRN Administration Nausea And Vomiting Propranolol HCl 40 mg 04/15/19 09:00 04/16/19 10:23 Inderal PO 40 mg DAILY CARMEN Administration Rizatriptan Benzoate 10 mg
[2019-04-17 14:00] VITALS: BP 110/65; PULSE 82; RESP 16; TEMP 36.9; O2SAT 97
[2019-04-17] MEDS: ONDANSETRON INJ 4 MG/2 ML VIAL 8 MG IV PUSH (14:15)
--- NOTE | 2019-04-17 15:10 | PC.NURSE ---
Outpatient referral for initial DSMT and MNT started. [facility] and to Deedee Low PA-C.
--- NOTE | 2019-04-17 15:11 | PC.NURSE ---
Outpatient referral started for Initial DSMT and MNT. Faxed to [facility]. Patient is unable to remember the name of his PCP.
[2019-04-17 16:40] VITALS: BMI 42.2
[2019-04-17] MEDS: PROMETHAZINE HCL 25 MG/ML AMPUL 12.5 MG IV PUSH (17:41)
--- NOTE | 2019-04-17 17:42 | PM.GYNPNOP ---
FRAME CLEANER - A/P Assessment and plan (1) Abscess of right buttock: Code(s): L02.31 - Cutaneous abscess of buttock Status: Acute Assessment and Plan: To continue daily wound packing of the abscess cavity. Wound care change the packing today and examined the area. Medicine infectious sees have seen the patient today Postoperative Procedures: Procedures Operation Date: 04/15/19 13:30 Actual Procedures Side Surgeon p INCISION AND DRAINAGE PERINEAL ABSCESS Right Kylee Nascimento MD Time Spent With Patient Time: Total time spent is greater than 50% in coordination of care (as documented) at patient's floor/unit and/or counseling patient: Time with patient: less than 15 minutes FRAME CLEANER- PN:Subj Post-Op Subjective Date/time seen: 04/17/19 17:42 Patient reports improvement in pain. She is afebrile. She states the area of the abscess softer. She continues to have nausea and vomiting. Interval history: Date of service 04/17/2019: The patient's pain is better controlled today. She does had her packing changed by wound care and she is in pain but it is improved from yesterday. Her pain prior to having the packing change was rated 7/10 and now it is 10/10. She also continues to have associated nausea related to her pain. She did not eat any lunch or dinner yesterday and is currently NPO for a test today. She has not vomited all. She does have decreased appetite. She denies any fevers or chills. She also reports a slight cough but is better today. She denies any chest pain, shortness of breath, abdominal pain, leg swelling, calf pains, or any other symptom this time. Exam Const: General: healthy appearing, comfortable and no acute distress Resp: Auscultation: clear to auscultation bilaterally, no rales, no rhonchi and no wheezes Cardio: Rate: regular rate Heart sounds: no click, no murmurs and no rubs GI: Inspection: non-distended Auscultation: normal bowel sounds Extrem: General: normal to inspection, no pedal edema and no calf tenderness FRAME CLEANER - PN: Obj Data Vital Signs Vital Signs: Vital Signs - 24 hr 04/16/19 22:00 04/17/19 06:00 04/17/19 14:00 Temperature 97.8 F 97.9 F 98.4 F Pulse Rate 79 74 82 Respiratory Rate 20 20 16 Blood Pressure 100/60 108/59 L 110/65 Pulse Oximetry 98 98 97 Intake/Output Intake/Output: Intake & Output 04/14/19 04/15/19 04/16/19 04/17/19 23:59 23:59 23:59 23:59 Intake Total 4930 4300 1980 Output Total 2700 2650 2050 Balance 2230 1650 -70 Meds/Results Medications: Active Medications Generic Name Dose Route Start Last Admin Trade Name Freq PRN Reason Stop Dose Admin Acetaminophen 650 mg 04/14/19 22:28 04/15/19 17:12 Tylenol Tablet PO 650 mg Q4H PRN Administration Pain or Fever Hydrocodone Bitart/Acetaminophen 2 tab 04/16/19 12:36 04/17/19 08:37 [place] 5-325 Mg PO 2 tab Q4H PRN Administration Pain Rated 4-6 Albuterol 2 puff 04/14/19 22:30 04/16/19 13:31 Proventil Hfa INHALATION 2 puff QIDRT PRN Administration Shortness Of Breath Albuterol 2.5 mg 04/16/19 13:12 Albuterol Sulf Neb 2.5mg/0.5ml INHALATION Q6HRT PRN Shortness Of Breath Carbamazepine 100 mg 04/15/19 09:00 04/17/19 17:33 Tegretol Chew BY MOUTH 05/15/19 09:01 Not Given TID CARMEN Clonazepam 0.5 mg 04/15/19 17:30 04/17/19 17:32 Klonopin Tablet PO Not Given BID CARMEN Dextrose 12.5 gm 04/15/19 09:03 Dextrose 50% Syringe IV PUSH PRN PRN Hypoglycemia Protocol Diphenhydramine HCl 25 mg 04/14/19 22:30 Benadryl Cap BY MOUTH QID PRN Itching Docusate Sodium 100 mg 04/17/19 09:14 Colace Capsule PO Q12H PRN Constipation Fenofibrate 160 mg 04/15/19 09:00 04/16/19 10:22 Fenofibrate PO 160 mg DAILY CARMEN Administration Glimepiride 4 mg 04/15/19 17:00 04/17/19 17:32 Amaryl PO Not Given BIDWM CARMEN Glucagon 1 mg 04/15/19 09:03 Glucagon For Inj IM
[2019-04-17 17:58] LABS: Glucose Point of Care 101 (65-105)
[2019-04-17 18:37] VITALS: PULSE 104
[2019-04-17] MEDS: lisinopriL 20 MG TABLET PO (18:37)
[2019-04-17] MEDS: FENOFIBRATE 160 MG TABLET PO (18:37)
[2019-04-17] MEDS: PROPRANOLOL HCL 40 MG TABLET PO (18:37)
[2019-04-17] MEDS: TOPIRAMATE 100 MG TABLET 200 MG PO (18:39)
[2019-04-17] MEDS: CARBAMAZEPINE 100 MG CHEW BY MOUTH (18:39)
[2019-04-17] MEDS: GLIMEPIRIDE 2 MG TABLET 4 MG PO (18:39)
[2019-04-17] MEDS: CLONAZEPAM 0.5 MG TAB PO (18:39)
[2019-04-17] MEDS: SERTRALINE HCL 50 MG TABLET 200 MG PO (18:40)
[2019-04-17] MEDS: INSULIN GLARGINE (*BKC) 100 UNITS/ML 10 UNITS SUB-Q (19:01)
[2019-04-17] MEDS: MONTELUKAST SODIUM 10 MG TABLET PO (21:24)
[2019-04-17 21:27] VITALS: BP 114/68; PULSE 89; RESP 18; TEMP 36.8; O2SAT 95
[2019-04-17] MEDS: DOCUSATE SODIUM 100 MG CAPSULE PO (21:32)
[2019-04-17 21:36] VITALS: PULSE 89; RESP 18; O2SAT 95
[2019-04-17 22:09] VITALS: O2SAT 96
[2019-04-18 00:07] LABS: Glucose Point of Care 117 (65-105)
[2019-04-18] MEDS: SODIUM CHLORIDE 0.45% 1,000 ML 100 ML IV CONT (00:13)
[2019-04-18] MEDS: MORPHINE SULFATE 2 MG/ML INJ IV PUSH ×6 (00:15→21:00)
[2019-04-18] MEDS: AMPICILLIN SULB 3 GM/NS 100 ML 3 GM/100 ML VIAL IVPB ×5 (00:19→23:36)
[2019-04-18 05:52] VITALS: BP 128/65; PULSE 76; RESP 16; TEMP 36.5; O2SAT 94
[2019-04-18 05:55] VITALS: BP 128/65; PULSE 112; RESP 20; TEMP 36.7; O2SAT 97
[2019-04-18 06:46] LABS: Hematocrit 38.1 % (37.0-47.0); Hemoglobin 12.8 g/dL (12.0-15.0); Mean Corpuscular HGB Conc 33.6 g/dl (32-36); Mean Corpuscular Hemoglobin 29.1 pg (26-34); Mean Corpuscular Volume 86.6 fl (80-100); Mean Platelet Volume 8.7 fl (7.4-10.4); Platelet Count Result 213 k/mm3 (150-375); Red Cell Distribution Width 12.9 % (11.5-14.5); White Blood Count 5.8 K/mm3 (4.5-10.0)
[2019-04-18 07:01] LABS: Blood Urea Nitrogen 8 mg/dL (7-17); Calcium 8.5 mg/dL (8.4-10.2); Carbon Dioxide 19 mmol/L (22-30); Chloride 103 mmol/L (98-107); Estimated CRCL calculation 156 ml/min; Estimated Glomerular Filt Rate > 60; Glucose 112 mg/dL (65-105); Magnesium 1.9 mg/dL (1.6-2.3); Potassium 3.1 mmol/L (3.4-5.0); Sodium 138 mmol/L (137-145)
--- NOTE | 2019-04-18 08:24 | ECG_ITS ---
Measurements Intervals [place] Rate: 76 P: 21 MT: 164 QRS: -17 QRSD: 96 T: -5 QT: 374 QTc: 422 Interpretive Statements SINUS RHYTHM CONSIDER INFERIOR INFARCT, AGE INDETERMINATE BASELINE ARTIFACT- V5-V6 ABNORMAL ECG Electronically Signed On 04-18-2019 9:32:08 GAMMA RAY OPERATOR by Giovani Woodard D.O.
[2019-04-18] MEDS: ONDANSETRON INJ 4 MG/2 ML VIAL 8 MG IV PUSH ×2 (09:43→23:00)
[2019-04-18] MEDS: DOCUSATE SODIUM 100 MG CAPSULE PO (10:05)
[2019-04-18] MEDS: CARBAMAZEPINE 100 MG CHEW BY MOUTH ×3 (10:06→17:30)
[2019-04-18] MEDS: FENOFIBRATE 160 MG TABLET PO (10:06)
[2019-04-18] MEDS: CLONAZEPAM 0.5 MG TAB PO ×2 (10:06→17:29)
[2019-04-18] MEDS: TOPIRAMATE 100 MG TABLET 200 MG PO ×2 (10:08→17:30)
[2019-04-18] MEDS: PROPRANOLOL HCL 40 MG TABLET PO (10:08)
[2019-04-18] MEDS: lisinopriL 20 MG TABLET PO (10:09)
[2019-04-18] MEDS: POTASSIUM CHLORIDE 20 MEQ TABLET 40 MEQ PO (10:10)
[2019-04-18 11:10] LABS: Glucose Point of Care 90 (65-105)
[2019-04-18] MEDS: METOCLOPRAMIDE HCL 10 MG/10 ML SOLN UDC 5 MG PO ×3 (12:10→20:56)
[2019-04-18 13:18] LABS: Glucose Point of Care 118 (65-105)
[2019-04-18 14:00] VITALS: BP 116/65; PULSE 77; RESP 20; TEMP 36.3; O2SAT 100
--- NOTE | 2019-04-18 17:07 | PM.IMPN ---
Progress Note: A&P Assessment and Plan (1) Abscess of right buttock: Code(s): L02.31 - Cutaneous abscess of buttock Status: Acute Assessment and Plan: Dr. Nascimento TRADER is the admitting physician and took the patient to the OR for an I&D on 04/15/2019. Dr. Nascimento consulted infectious disease doctor painter ordnance on the case for further evaluation and treatment with IV antibiotics. The patient's pain is still elevated at times and requiring IV pain medications. Will try and wean her off IV medications and stick to PO [place]. Infectious disease continued the patients IV Unasyn and we are pending culture results at this time. The patient's culture results from abscess has grown: Moderate amount of Staph aureus, Heavy growth of Group B Strep. Still pending official results and sensitivities. Appreciate input fro Infectious Disease about antibiotic usage and length of antibiotic therapy. Continue monitoring patient's symptoms and appreciate lawn caretaker and Infectious Disease input. (2) Delayed gastric emptying: Code(s): K30 - Functional dyspepsia Status: Acute Assessment and Plan: Due to the patient's symptoms intermittent abdominal issues, nausea, vomiting I am going to work her up for possible gastroparesis The patient also has a history of Benzoars in the past on EGD. Gastric Emptying Study did show delayed gastric output. I started the patient on Reglan 5 mg ACHS 15 minutes before meals to help with her intestinal mobility. I also consulted Dr. Tobar (GI) Specialist about the patient since this would be a new diagnosis. Continue monitoring patients symptoms. Appreciate GI Input at this time. (3) Hyperglycemia due to type 2 diabetes mellitus: Code(s): E11.65 - Type 2 diabetes mellitus with hyperglycemia Status: Acute Assessment and Plan: The patient serum glucose was 112 this morning. Hemoglobin A1c was 10.8% . We will continue on her long acting insulin, Glargine 40 Units and Sliding Scale Insulin TIDWM. I have consulted the DM educator and Hedge Trimmer for better diet and DM education. Continue monitoring glucose ACHS, sliding scale NovoLog as needed, continue patient's home long-acting insulin. Hypoglycemia protocol in place. (4) Nausea & vomiting: Code(s): R11.2 - Nausea with vomiting, unspecified Status: Acute Assessment and Plan: Patient reports multiple episodes of vomiting over the last few days. Nausea is improved today except with increased pain. She is on Zofran IV as needed for nausea at this time. Will continue monitoring the patient's symptoms in the results of her study. (5) Essential (primary) hypertension: Code(s): I10 - Essential (primary) hypertension Status: Acute Assessment and Plan: Patient's blood pressure was elevated on arrival. Today BP is normal, she has not been eating much. Continue IV fluids at this time. Will continue monitoring her blood pressure and continue her home medications. Time Spent With Patient Time with patient: 25 - 35 minutes Subjective Date/time seen: 04/18/19 17:07 Interval history: Date of service 04/18/2019: The patient's pain is better controlled today, but she just had the packing changed by the nurse and is in increased pain. She is eating better since yesterday. She still has intermittent nausea with pain, but denies any vomiting. She denies any fevers or chills. She denies any chest pain, shortness of breath, abdominal pain, leg swelling, calf pains, or any other symptom this time. Review of Systems Review of Systems: All systems reviewed & are unremarkable except as noted in HPI and below Exam Narrative: Exam Narrative: General: 39-year-old woman laying on
[2019-04-18] MEDS: SERTRALINE HCL 50 MG TABLET 200 MG PO (17:30)
[2019-04-18] MEDS: GLIMEPIRIDE 2 MG TABLET 4 MG PO (19:19)
[2019-04-18 19:22] LABS: Glucose Point of Care 119 (65-105)
--- NOTE | 2019-04-18 19:28 | PM.GYNPNOP ---
STUNT PERFORMER - A/P Assessment and plan (1) Abscess of right buttock: Code(s): L02.31 - Cutaneous abscess of buttock Status: Acute Assessment and Plan: immproved significantly - consider dc tomorrow Postoperative Procedures: Procedures Operation Date: 04/15/19 13:30 Actual Procedures Side Surgeon p INCISION AND DRAINAGE PERINEAL ABSCESS Right Kylee Nascimento MD Time Spent With Patient Time: Total time spent is greater than 50% in coordination of care (as documented) at patient's floor/unit and/or counseling patient: Time with patient: less than 15 minutes STUNT PERFORMER- PN:Subj Post-Op Subjective Date/time seen: 04/18/19 19:28 much improved pain, BM, tolerating regular diet Interval history: Date of service 04/17/2019: The patient's pain is better controlled today. She does had her packing changed by wound care and she is in pain but it is improved from yesterday. Her pain prior to having the packing change was rated 7/10 and now it is 10/10. She also continues to have associated nausea related to her pain. She did not eat any lunch or dinner yesterday and is currently NPO for a test today. She has not vomited all. She does have decreased appetite. She denies any fevers or chills. She also reports a slight cough but is better today. She denies any chest pain, shortness of breath, abdominal pain, leg swelling, calf pains, or any other symptom this time. STUNT PERFORMER - PN: Obj Data Vital Signs Vital Signs: Vital Signs - 24 hr 04/17/19 21:27 04/17/19 21:36 04/17/19 22:09 Temperature 98.3 F Pulse Rate 89 89 Respiratory Rate 18 18 Blood Pressure 114/68 Pulse Oximetry 95 95 96 04/18/19 05:52 04/18/19 05:55 04/18/19 14:00 Temperature 97.7 F 98.0 F 97.4 F L Pulse Rate 76 112 H 77 Respiratory Rate 16 20 20 Blood Pressure 128/65 128/65 116/65 Pulse Oximetry 94 97 100 Intake/Output Intake/Output: Intake & Output 04/15/19 04/16/19 04/17/19 04/18/19 23:59 23:59 23:59 23:59 Intake Total 4930 4300 3080 2507 Output Total 2700 2650 2050 2500 Balance 2230 1650 1030 7 Meds/Results Medications: Active Medications Generic Name Dose Route Start Last Admin Trade Name Freq PRN Reason Stop Dose Admin Acetaminophen 650 mg 04/14/19 22:28 04/15/19 17:12 Tylenol Tablet PO 650 mg Q4H PRN Administration MILD Pain or Fever Hydrocodone Bitart/Acetaminophen 2 tab 04/16/19 12:36 04/18/19 17:40 [place] 5-325 Mg PO 2 tab Q4H PRN Administration Pain Rated 4-6 Albuterol 2 puff 04/14/19 22:30 04/16/19 13:31 Proventil Hfa INHALATION 2 puff QIDRT PRN Administration Shortness Of Breath Albuterol 2.5 mg 04/16/19 13:12 Albuterol Sulf Neb 2.5mg/0.5ml INHALATION Q6HRT PRN Shortness Of Breath Carbamazepine 100 mg 04/15/19 09:00 04/18/19 17:30 Tegretol Chew BY MOUTH 05/15/19 09:01 100 mg TID CARMEN Administration Clonazepam 0.5 mg 04/15/19 17:30 04/18/19 17:29 Klonopin Tablet PO 0.5 mg BID CARMEN Administration Dextrose 12.5 gm 04/15/19 09:03 Dextrose 50% Syringe IV PUSH PRN PRN Hypoglycemia Protocol Diphenhydramine HCl 25 mg 04/14/19 22:30 Benadryl Cap BY MOUTH QID PRN Itching Docusate Sodium 100 mg 04/17/19 09:14 04/18/19 10:05 Colace Capsule PO 100 mg Q12H PRN Administration Constipation Fenofibrate 160 mg 04/15/19 09:00 04/18/19 10:06 Fenofibrate PO 160 mg DAILY CARMEN Administration Glimepiride 4 mg 04/15/19 17:00 04/18/19 19:19 Amaryl PO 4 mg BIDWM CARMEN Administration Glucagon 1 mg 04/15/19 09:03 Glucagon For Inj IM PRN PRN Hypoglycemia Protocol Glucose 15 gm 04/15/19 09:03 Glutose 15 PO PRN PRN Hypoglycemia Protocol Guaifenesin 600 mg 04/16/19 21:00 04/18/19 10:07 Mucinex 12 Hr Tab PO 600 mg Q12HR CARMEN Administration Dextrose 1,000 mls @ 100 mls/hr 04/15/19 09:03 Dextrose 5% 1,000 Ml IVPB PRN PRN
[2019-04-18] MEDS: MONTELUKAST SODIUM 10 MG TABLET PO (20:55)
[2019-04-18 21:35] LABS: Glucose Point of Care 176 (65-105)
[2019-04-18 22:54] VITALS: BP 118/66; PULSE 74; RESP 16; TEMP 35.9; O2SAT 95
[2019-04-19 05:51] VITALS: BP 118/65; PULSE 72; RESP 16; TEMP 36; O2SAT 96
[2019-04-19 05:56] LABS: Blood Urea Nitrogen 8 mg/dL (7-17); Calcium 8.8 mg/dL (8.4-10.2); Carbon Dioxide 21 mmol/L (22-30); Chloride 105 mmol/L (98-107); Estimated CRCL calculation 156 ml/min; Estimated Glomerular Filt Rate > 60; Glucose 156 mg/dL (65-105); Potassium 3.5 mmol/L (3.4-5.0); Sodium 139 mmol/L (137-145)
[2019-04-19] MEDS: AMPICILLIN SULB 3 GM/NS 100 ML 3 GM/100 ML VIAL IVPB (06:33)
[2019-04-19] MEDS: METOCLOPRAMIDE HCL 10 MG/10 ML SOLN UDC 5 MG PO ×2 (06:34→13:33)
--- NOTE | 2019-04-19 07:49 | WPDGICN ---
Assessment and Plan Additional Plan This is a 39-year-old white female patient I am asked to see at the request of the hospitalist. Patient has ongoing nausea. She was admitted to the hospital on April 15 with an abscess to her right buttock. This has subsequently been drained. She has been maintained on morphine for pain control. And continues to have nausea. Her past medical history is significant for diabetes mellitus. She is felt to have diabetic gastroparesis. In 2012 had an EGD with a gastric bezoar. She reports having several subsequent endoscopies that have also shown retained gastric contents and bezoars. During this hospital stay patient had a gastric emptying scan which confirms delayed gastric emptying at the current time. Patient reports that she remains somewhat nauseated. Past medical history is significant for diabetes. as stated diabetic gastroparesis .she has been treated for hypertension. Medications. Patient has recently been started on Reglan. She is also on broad-spectrum antibiotics. Physical exam reveals her to be alert. Oriented x3. Vital signs stable. She is anicteric. Lungs are clear to auscultation and percussion. Heart is without murmur or extra sounds. Abdominal exam is somewhat obese. Bowel sounds are present. No succession splash is identified. No localized tenderness. Impression 1. Diabetes mellitus. 2. Diabetic gastroparesis by history. Delayed gastric emptying on gastric emptying scan could be related to narcotic use. But agree with trial of Reglan. Will change to oral Reglan. Patient is advised to remain on a softer diet. Elevate head of bed at night. Reglan should only be used for brief several month interval at a time. Because of black box warning of potential tardive dyskinesia. 3. Right buttock abscess. Plan is as stated for a trial of Reglan. I can see her in my office electively over the next several weeks if nausea persists. GI Consult Note Consult date/time: 04/19/19 07:49 HPI: Alannah Ruano is a 39 year old female [facility] Past Medical History Medical History Asthma Chronic sinusitis Diabetes mellitus Eczema Essential (primary) hypertension GERD (gastroesophageal reflux disease) HLD (hyperlipidemia) Kidney stones Migraines PCOS (polycystic ovarian syndrome) Seasonal allergies Surgical History Surgical History S/P cubital tunnel release Left S/P myringotomy with insertion of tube S/P nasal surgery Dr. Grimm for chronic sinusitis S/P tonsillectomy and adenoidectomy Family History Family History Father Family history of heart disease in male family member before age 55 Diabetes mellitus Asthma Hypertension Acute myocardial infarction Cerebrovascular accident COPD (chronic obstructive pulmonary disease) Sibling Hypertension Mother COPD (chronic obstructive pulmonary disease) Grandparent Cerebrovascular accident Alzheimer disease Parkinson disease Social History Social History Smoking status: Never smoker Alcohol intake: never Substance use: never Additional living arrangements comments: Lives in [place], [place] Occupation/Education: occupation Additional occupation/education comments: Works at [employer] Gender identity (if verbalized by the patient): Female Spiritual care concerns: No Agree to blood products: Yes Meds Home Medications and Allergies Home Medications Medication Instructions Recorded Confirmed Type Benadryl 25 mg BYMOUTH QID PRN 04/14/19 04/14/19 History albuterol sulfate [ProAir HFA] 2 puff INHALATION QID PRN 04/14/19 04/14/19 History carbamazepine 100 mg BYMOUTH TID 04/14/19 04/14/19 History clonazepam 0.5 mg PO BID 04/14/19 04/15/19 History fenofibrat
[2019-04-19 08:04] VITALS: BP 100/65; PULSE 74
[2019-04-19] MEDS: PROPRANOLOL HCL 40 MG TABLET PO (08:05)
[2019-04-19] MEDS: FENOFIBRATE 160 MG TABLET PO (08:06)
[2019-04-19] MEDS: TOPIRAMATE 100 MG TABLET 200 MG PO (08:06)
[2019-04-19] MEDS: CARBAMAZEPINE 100 MG CHEW BY MOUTH ×2 (08:06→13:33)
[2019-04-19] MEDS: lisinopriL 20 MG TABLET PO (08:06)
[2019-04-19] MEDS: CLONAZEPAM 0.5 MG TAB PO (08:06)
[2019-04-19] MEDS: DOCUSATE SODIUM 100 MG CAPSULE PO (08:06)
[2019-04-19] MEDS: GLIMEPIRIDE 2 MG TABLET 4 MG PO (09:31)
[2019-04-19 11:36] LABS: Glucose Point of Care 139 (65-105)
--- NOTE | 2019-04-19 13:15 | PM.GYNPNOP ---
AMPHIBIOUS OPERATIONS OFFICER - A/P Assessment and plan (1) Abscess of right buttock: Code(s): L02.31 - Cutaneous abscess of buttock Status: Acute Assessment and Plan: Patient is a 39-year-old female with a abscess of the right buttock near the perineum. It was drained. Is been packed daily for 5 days. It has improved and healed well. Home Health has been arranged for wound packing at home. Doing it 2-3 times over the next 5 days should be fine. I will also see her in the office during that time. If the packing falls on she should do well even if it is not packed until the next day. The wound is open and not likely to collapse. Strep species were grown from the wound culture. She will be treated with oral antibiotics and oral pain medication upon discharge. She will follow up shortly. Postoperative Procedures: Procedures Operation Date: 04/15/19 13:30 Actual Procedures Side Surgeon p INCISION AND DRAINAGE PERINEAL ABSCESS Right Kylee Nascimento MD Time Spent With Patient Time: Total time spent is greater than 50% in coordination of care (as documented) at patient's floor/unit and/or counseling patient: Time with patient: 15 - 25 minutes AMPHIBIOUS OPERATIONS OFFICER- PN:Subj Post-Op Subjective Date/time seen: 04/19/19 13:15 improved pain today. Wound packing was changed. The patient tolerated it well. She denies any nausea, vomiting, fever, chills. She denies any chest pain or shortness of breath. She denies any discharge from the wound. She still reports significant pain from the site of the abscess. Interval history: Date of service 04/18/2019: The patient's pain is better controlled today, but she just had the packing changed by the nurse and is in increased pain. She is eating better since yesterday. She still has intermittent nausea with pain, but denies any vomiting. She denies any fevers or chills. She denies any chest pain, shortness of breath, abdominal pain, leg swelling, calf pains, or any other symptom this time. Exam Const: General: healthy appearing, comfortable and no acute distress Resp: Auscultation: clear to auscultation bilaterally, no rales, no rhonchi and no wheezes Cardio: Rate: regular rate Heart sounds: no click, no murmurs and no rubs GI: Inspection: non-distended Auscultation: normal bowel sounds : Other: There is improved induration of the tissue surrounding the opened abscess cavity. There is minimal discharge from the open cavity. The packing was removed and it was repacked. The defect is about 2 cm in diameter. Extrem: General: normal to inspection, no pedal edema and no calf tenderness AMPHIBIOUS OPERATIONS OFFICER - PN: Obj Data Vital Signs Vital Signs: Vital Signs - 24 hr 04/18/19 14:00 04/18/19 22:54 04/19/19 05:51 Temperature 97.4 F L 96.7 F L 96.8 F L Pulse Rate 77 74 72 Respiratory Rate 20 16 16 Blood Pressure 116/65 118/66 118/65 Pulse Oximetry 100 95 96 04/19/19 08:04 Temperature Pulse Rate 74 Respiratory Rate Blood Pressure 100/65 Pulse Oximetry Intake/Output Intake/Output: Intake & Output 04/16/19 04/17/19 04/18/19 04/19/19 23:59 23:59 23:59 23:59 Intake Total 4300 3080 2607 660 Output Total 2650 2050 2500 600 Balance 1650 1030 107 60 Meds/Results Medications: Active Medications Generic Name Dose Route Start Last Admin Trade Name Freq PRN Reason Stop Dose Admin Acetaminophen 650 mg 04/14/19 22:28 04/15/19 17:12 Tylenol Tablet PO 650 mg Q4H PRN Administration MILD Pain or Fever Hydrocodone Bitart/Acetaminophen 2 tab 04/16/19 12:36 04/19/19 09:38 [place] 5-325 Mg PO 2 tab Q4H PRN Administration Pain Rated 4-6 Albuterol 2 puff 04/14/19 22:30 04/16/19 13:31 Proventil Hfa INHALATION 2 puff QIDRT PRN Administration Shortness Of Breath Albuterol 2.5 mg 04/16/19 13:12 Albuterol Sulf Neb 2.5mg/0.5ml INHALATION Q6HRT PRN Shortness Of Breath Carbamazepine 100 mg 04/15/19 09:00 04/19/19 08:06 Tegretol Chew BY MOUTH 05/15/19 09:
--- NOTE | 2019-04-19 13:22 | PM.DS ---
DS: Diagnosis Admitting Diagnosis Admitting Diagnosis: Cutaneous abscess of buttock Discharge Diagnosis (1) Delayed gastric emptying: (2) Essential (primary) hypertension: (3) Hyperglycemia due to type 2 diabetes mellitus: (4) Nausea & vomiting: (5) Abscess of right buttock: DS: Summary Hospital Course Reason for hospitalization: Abscess of this subcutaneous skin in the area the right buttock where it meets the perineum. It was drained. She had a lot of pain prior to the drainage. The incision and drainage was performed in the operating room. It was packed daily for the following 5 days. Infectious Disease was consulted to determine antibiotic choices and ongoing therapy. Hospitalist has been taking care of her medical problems. Her hospital course since the I and D of the abscess has been unremarkable. She has been afebrile. Pain control was a bit of an issue. Over time we where able to controlled the pain. She will be discharged with pain medication and oral antibiotics. Status at Discharge Functional status at discharge: independent ambulation Time Spent with Patient Time attestation: Total time spent providing and/or coordinating discharge services: Time spent: Greater than 30 minutes DS: Data Data Completed and Pending Labs on day of discharge: Labs from last 24 hours 04/19/19 04/19/19 04/18/19 09:11 05:01 21:05 Sodium 139 Potassium 3.5 Chloride 105 Carbon Dioxide 21 L BUN 8 Creatinine 0.50 L Estim Creat Clear Calc 156 Estimated GFR > 60 Glucose 156 H POC Capillary Glucose 139 H 176 H Calcium 8.8 04/18/19 18:32 Sodium Potassium Chloride Carbon Dioxide BUN Creatinine Estim Creat Clear Calc Estimated GFR Glucose POC Capillary Glucose 119 H Calcium Preliminary micro results at discharge 04/14/19 23:12 Blood Culture - Preliminary Blood 04/14/19 23:21 Blood Culture - Preliminary Blood Discharge Plan Discharge Attending physician on discharge: Kylee Nascimento Consulting providers: Whitney Pinto ; Destin Barnard ; Dax Tobar ; Phong Bernard ; Eliot Keys V. ; Alo Hooks ; Giovani Woodard Patient Disposition: Home Health Service Activity: no straining and no driving Diet: regular Wound Care Instructions: change dressing daily Discharge Instructions: [facility] has been arranged at discharge to follow for wound care. [facility] will contact you prior to their first visit. [facility] can be reached at [phone]. Patient Instructions: Antibiotic Form, Pain Management (DC), Meal Planning with Diabetes Exchanges (DC), Abscess Incision and Drainage (DC) Stand Alone Forms: General Discharge Information Follow-up/Referrals: Kylee Nascimento MD [Physician] - Discharge Medications: New oxycodone [Roxicodone] 5 mg tablet 15 mg PO Q8H PRN (Reason: pain) Qty: 30 RF: 0 metoclopramide HCl 10 mg tablet 10 mg PO Q6H PRN (Reason: nausea and vomiting) Qty: 10 RF: 3 amoxicillin-pot clavulanate [Augmentin] 500-125 mg tablet 1 tablet PO TID Qty: 20 RF: 0 ibuprofen 600 mg tablet 600 mg PO TID Qty: 20 RF: 0 Continued ondansetron HCl [Zofran] 8 mg Tablet 8 mg PO Q8H PRN (Reason: Nausea) RF: 0 clonazepam 0.5 mg Tablet 0.5 mg PO BID RF: 0 sertraline 100 mg Tablet 200 mg PO DAILY RF: 0 topiramate 200 mg Tablet 400 mg PO DAILY RF: 0 fenofibrate 160 mg Tablet 160 mg PO DAILY RF: 0 lisinopril 20 mg Tablet 20 mg PO DAILY RF: 0 propranolol 40 mg Tablet 40 mg PO DAILY RF: 0 albuterol sulfate [ProAir HFA] 90 mcg/actuation Hfa Aerosol Inhaler 2 puff INHALATION QID PRN (Reason: Shortness Of Breath) RF: 0 rizatriptan 10 mg Tablet,Disintegrating 10 mg PO ONCE PRN (Reason: Headache) RF: 0 montelukast [Singulair] 10 mg Tablet 10 mg PO HS RF: 0 Benadryl tablet 25 mg BYMOUTH QID PRN (Reason: Itching) RF:
[2019-04-19 13:55] LABS: Glucose Point of Care 134 (65-105)
--- NOTE | 2019-04-19 16:05 | PM.IMPN ---
Progress Note: A&P Assessment and Plan (1) Abscess of right buttock: Code(s): L02.31 - Cutaneous abscess of buttock Status: Acute Assessment and Plan: Dr. Nascimento SUPERINTENDENT [employer]ION is the admitting physician and took the patient to the OR for an I&D on 04/15/2019. Dr. Nascimento consulted infectious disease doctor vehicle painter on the case for further evaluation and treatment with IV antibiotics. The patient's pain is better controlled today. The patient's culture results from abscess has grown: Moderate amount of Staph aureus, Heavy growth of Group B Strep. Still pending official results and sensitivities. Sensitivities were sensitive to everything other than clindamycin and erythromycin. From a medicine standpoint the patient is stable for discharge today. Dr. Nascimento motor and chassis inspector will be discharging the patient later today with antibiotics to continue and dressing changes with home health. (2) Delayed gastric emptying: Code(s): K30 - Functional dyspepsia Status: Acute Assessment and Plan: Due to the patient's symptoms intermittent abdominal issues, nausea, vomiting I am going to work her up for possible gastroparesis The patient also has a history of Benzoars in the past on EGD. Gastric Emptying Study did show delayed gastric output. I started the patient on Reglan 5 mg ACHS 15 minutes before meals to help with her intestinal mobility. I also consulted Dr. Tobar (GI) Specialist who evaluated the patient and recommended continuing the Reglan and have her follow-up in his office for further evaluation for nausea or abdominal issues in the future. I explained her that she should not be on Reglan constantly. She can follow with her primary care provider in every few months stop the medication because of his potential side effects of tardive dyskinesia and QT prolongation. The patient EKG prior to starting Reglan was normal with no signs of QT prolongation. This is something her primary care can follow-up with and Dr. Tobar she sees him as an outpatient for her GI issues. (3) Hyperglycemia due to type 2 diabetes mellitus: Code(s): E11.65 - Type 2 diabetes mellitus with hyperglycemia Status: Acute Assessment and Plan: The patient serum glucose was 156 this morning. Hemoglobin A1c was 10.8%. We had told her home glargine 40 units for the last few nights due to her decreased appetite and low glucose levels. I told the patient if she is not eating regularly that she should not take her diabetes medications. This is something that she has been doing on her own at home. Told her check her glucose 5 times a day and call her doctor if her glucose is greater than 350 or less than 70. Told her the signs and symptoms of low blood sugar. I have consulted the DM educator and Furnace Liner for better diet and DM education. She will follow-up with both of these as an outpatient for further education on diabetes and nutrition. (4) Nausea & vomiting: Code(s): R11.2 - Nausea with vomiting, unspecified Status: Acute Assessment and Plan: Patient reports multiple episodes of vomiting over the last few days. Nausea is improved today. (5) Essential (primary) hypertension: Code(s): I10 - Essential (primary) hypertension Status: Acute Assessment and Plan: Patient's blood pressure was elevated on arrival. Today BP is normal Time Spent With Patient Time with patient: 25 - 35 minutes Subjective Date/time seen: 04/19/19 12:05 Interval history: Date of service 04/19/2019: The patient's pain is better controlled today. She is eating better since yesterday. She had a bowel movement 2 days ago but feels like she is going to have another one today. She still has intermit
--- NOTE | 2019-04-24 13:11 | PC.NURSE ---
Blood cultures are negative.
== END 2019-04-19 15:00 | disposition home health service (06) | DRG 580 ==
PROVIDERS: Physician Assistant; Admitting Provider Obstetrics & Gynecology; PCP Physician Assistant; Visit Provider Obstetrics & Gynecology
PROC: 0J990ZZ Drainage of Buttock Subcutaneous Tissue and Fascia, Open Approach (ICD-10-PCS; principal; 2019-04-15 13:30)
DX: L02.31 Cutaneous abscess of buttock (principal); Z68.41 Body mass index [BMI] 40.0-44.9, adult; K30 Functional dyspepsia; E11.65 Type 2 diabetes mellitus with hyperglycemia; I10 Essential (primary) hypertension; R11.2 Nausea with vomiting, unspecified; J32.8 Other chronic sinusitis; J45.909 Unspecified asthma, uncomplicated; L30.9 Dermatitis, unspecified; K21.9 Gastro-esophageal reflux disease without esophagitis; E78.5 Hyperlipidemia, unspecified; E28.2 Polycystic ovarian syndrome; E66.01 Morbid (severe) obesity due to excess calories
CPT/HCPCS: 36415; 71046; 78264; 80048; 80202; 82565; 83036; 83735; 85025; 85027; 87040; 87070; 87147; 87186; 87205; 93005; 94640; A9270; A9541; G0378; J0295; J0330; J1100; J1815; J2250; J2270; J2405; J2550; J2704; J3010; J3370; J7120

== ENCOUNTER 2019-04-20 19:27 | Emergency (ER) | payer OTHER, SELFPAY ==
[2019-04-20 19:34] VITALS: BP 135/95; PULSE 110; RESP 16; TEMP 36.2; O2SAT 100
[2019-04-20 20:30] VITALS: BP 126/84; PULSE 84; RESP 18; TEMP 37; O2SAT 100
--- NOTE | 2019-04-20 21:07 | ED.WOUNDLAC ---
HPI - Wound/Laceration General Chief Complaint: Wound/Laceration <Hernesto Joiner PA-C - Last Filed: 04/20/19 21:42> Stated Complaint: post op complications <Hernesto Joiner PA-C - Last Filed: 04/20/19 21:42> Time Seen by Provider: 04/20/19 19:40 <Hernesto Joiner PA-C - Last Filed: 04/20/19 21:42> Source: patient <RUSS Lo Last Filed: 04/20/19 21:42> Mode of arrival: ambulatory <Hernesto Joiner PA-C - Last Filed: 04/20/19 21:42> Limitations: no limitations <RUSS Lo Last Filed: 04/20/19 21:42> History of Present Illness HPI narrative: Patient presents with chief complaint of feeling feverish and having pain to the right buttock. Patient states she was admitted last week and the abscess was drained by Dr. Nascimento and packing was placed. Patient states that her packing has been fallen out multiple times. Patient states she is on Augmentin and OxyContin. Patient was discharged on Saturday and has reported continually worsening pain to the area. Patient states that she called Dr. Nascimento's office who told her to come to the emergency department. Patient has a history of uncontrolled diabetes and chronic abdominal issues. <Hernesto Joiner PA-C - Last Filed: 04/20/19 21:42> Related Data Home Medications: Home Medications Medication Instructions Recorded Confirmed Pro HFA 8.5 02/11/19 carbamazepine mg PO 02/11/19 clonazepam 0.5 mg DAILY 02/11/19 02/11/19 ergocalciferol (vitamin D2) 50,000 unit PO WEEKLY 02/11/19 02/11/19 [Vitamin D2] fenofibrate 160 mg PO DAILY 02/11/19 02/11/19 fexofenadine-pseudoephedrine 1 tablet PO QAM 02/11/19 02/11/19 [Sherri-D 24 Hour] glimepiride 4 mg BID 02/11/19 02/11/19 lisinopril 20 mg DAILY 02/11/19 02/11/19 propranolol 40 mg PO DAILY 02/11/19 02/11/19 rizatriptan 10 mg PO ONCE 02/11/19 02/11/19 sertraline mg DAILY 02/11/19 topiramate 400 mg DAILY 02/11/19 02/11/19 sertraline 100 mg PO DAILY 03/17/19 03/17/19 <Hernesto Joiner PA-C - Last Filed: 04/20/19 21:42> Allergies/Adverse Reactions: Allergies Allergy/AdvReac Type Severity Reaction Status Date / Time No Known Allergies Allergy Unknown Uncoded 02/11/19 11:34 <Hernesto Joiner PA-C - Last Filed: 04/20/19 21:42> Review of Systems Review of Systems: Narrative: CONSTITUTIONAL: Denies fever, chills, or sweats. EYES: Denies visual changes, redness, or discharge. ENT: Denies rhinorrhea, congestion, sore throat, or otalgia. CARDIOVASCULAR: Denies chest pain, palpitations, or edema. RESPIRATORY: Denies cough or dyspnea. GASTROINTESTINAL: Denies abdominal pain, nausea, vomiting, or diarrhea. GENITOURINARY: Denies dysuria or hematuria. SKIN: Open abscess right buttock MUSCULOSKELETAL: Denies back pain, joint pain, or myalgia. NEUROLOGIC: Denies headache, numbness, dizziness, or weakness. PSYCHIATRIC: Denies anxiety or depression. <Hernesto Joiner PA-C - Last Filed: 04/20/19 21:42> PMFSH Social History Social History: Social History Gender identity (if verbalized by the patient): Female <Hernesto Joiner PA-C - Last Filed: 04/20/19 21:42> Exam Narrative: Exam Narrative: GENERAL: Well-appearing, well-nourished. Patient is tearful HEAD: Normocephalic, atraumatic. EYES: PERRLA and EOMI. ENT: Nares clear, no rhinorrhea or epistaxis. Mucous membranes moist. Oropharynx without tonsillar hypertrophy exudate or other lesions. Bilateral TMs pearly alva nonbulging NECK: Supple. No adenopathy or masses. No carotid bruits or JVD CHEST: Clear to auscultation. No respiratory distress. No wheezes rales or rhonchi HEART: Regular rate and rhythm. No murmur heard. Normal peripheral pulses. EXTREMITIES: Normal range of motion. No edema. SKIN: Abscess to the lower right buttock with opening without active draining and surrounding induration NEURO: No focal deficits. Alert and oriented x3. PSYCH: Normal
[2019-04-20 21:32] LABS: Basophils Absolute Auto 0.1 K/mm3 (0.0-0.1); Basophils Percent Auto 0.8 % (0.2-1.2); Eosinophils Absolute Auto 0.1 K/mm3 (0-0.3); Eosinophils Percent Auto 1.9 % (0-4.4); Hemoglobin 13.4 g/dL (12.0-15.0); Immature Granulocyte Absolute 0.12 K/mm3 (0.00-0.031); Immature Granulocyte Percent A 1.6 % (0-0.5); Lymphocytes Percent Auto 24.4 % (18.3-44.2); Mean Corpuscular HGB Conc 32.7 g/dl (32-36); Mean Corpuscular Hemoglobin 28.6 pg (26-34); Mean Corpuscular Volume 87.4 fl (80-100); Mean Platelet Volume 8.8 fl (7.4-10.4); Monocytes Absolute Auto 0.5 K/mm3 (0.1-0.6); Monocytes Percent Auto 7.2 % (2.6-8.5); Neutrophils Absolute Auto 4.7 K/mm3 (1.3-6.7); Neutrophils Percent Auto 64.1 % (45.5-73.1); Platelet Count Result 230 k/mm3 (150-375); Red Blood Count 4.69 M/mm3 (4.2-5.4); Red Cell Distribution Width 12.8 % (11.5-14.5); White Blood Count 7.4 K/mm3 (4.5-10.0)
[2019-04-20 21:49] LABS: Lactic Acid 0.7 mmol/L (0.7-2.1)
[2019-04-20 21:59] LABS: Alanine Aminotransferase 40 U/L (4-35); Albumin Level 3.9 g/dL (3.5-5.1); Alkaline Phosphatase 49 U/L (38-126); Aspartate Amino Transferase 44 U/L (14-36); Bilirubin,Total 0.3 mg/dL (0.2-1.3); Blood Urea Nitrogen 9 mg/dL (7-17); Calcium 9.6 mg/dL (8.4-10.2); Carbon Dioxide 23 mmol/L (22-30); Chloride 102 mmol/L (98-107); Estimated Glomerular Filt Rate > 60; Glucose 153 mg/dL (65-105); Potassium 4.2 mmol/L (3.4-5.0); Sodium 137 mmol/L (137-145)
[2019-04-20 22:25] VITALS: BP 135/84; PULSE 81; RESP 16; TEMP 36.9; O2SAT 100
== END 2019-04-20 22:26 | disposition home or self-care (01) ==
PROVIDERS: Physician Assistant; Emergency Provider Emergency Medicine; PCP Physician Assistant
DX: L02.31 Cutaneous abscess of buttock (principal); E11.9 Type 2 diabetes mellitus without complications
CPT/HCPCS: 36415; 80053; 83605; 85025; 87040; 99283

== ENCOUNTER → 2019-09-17 13:48 | Outpatient (CLI) | payer OTHER, SELFPAY ==
--- NOTE | ~2019-09-17 | XR_ITS ---
XR chest 2V DATE: 09/17/2019 14:17 INDICATION: Cough TECHNIQUE: 2 views COMPARISON: 04/15/2019 PA and lateral chest FINDINGS: Normal heart size. No hilar or mediastinal enlargement. No pulmonary infiltrate or consolid ation, pleural effusion, pulmonary vascular congestion, adenopathy or pneumothorax. IMPRESSION: No active cardiopulmonary disease Reviewed, dictated and finalized at location B.
== END ==
PROVIDERS: PCP Physician Assistant; Visit Provider Physician Assistant
DX: R05 Cough (principal)
CPT/HCPCS: 71046

== ENCOUNTER 2019-10-22 11:00 | Outpatient (RCR) | payer OTHER, SELFPAY ==
[2019-07-28 08:00] VITALS: BMI 42.2
[2019-10-22 10:48] VITALS: BMI 43.8
[2019-10-22 10:57] VITALS: BMI 43.8
== END 2019-10-26 23:59 | disposition home or self-care (01) ==
LOC: ANHDMC 11:00
PROVIDERS: PCP Physician Assistant; Visit Provider Physician Assistant
DX: E11.65 Type 2 diabetes mellitus with hyperglycemia (principal); L02.31 Cutaneous abscess of buttock; Z71.3 Dietary counseling and surveillance; Z71.89 Other specified counseling
CPT/HCPCS: 97802; 97803; G0108

== ENCOUNTER 2019-10-26 13:43 | Emergency (ER) | payer OTHER, SELFPAY ==
--- NOTE | ~2019-10-26 | CT_ITS ---
EXAMINATION: CT abdomen pelvis w con DATE: 10/26/2019 15:19 INDICATION: Low abdominal pain. TECHNIQUE: Computed tomography (CT) of the abdomen and pelvis was performed with 100 mL Omnipaque 350 intravenous contrast. Automated exposure control and iterative reconstruction technique were employe d. The dose-length product was 1403.99 mGy-cm. COMPARISON: Ultrasound abdomen 02/02/2013 FINDINGS: The visualized portions of the lung bases demonstrate minimal atelectasis. No pleural effus ion. The heart size is normal. No pericardial effusion. The liver, gallbladder, spleen, pancreas, adr enal glands, and left kidney are normal. There is a 5.6 cm mass in right kidney. There is a 4 mm ston e in right kidney. There is a 10 mm cyst in right kidney. There is an intrauterine device in expected position. There are no dilated loops of bowel. The appendix is normal. There is mild periportal lymp hadenopathy. There is no free intraperitoneal fluid. There is mild thoracolumbar spondylosis. IMPRESSION: 1. 5.6 cm right kidney mass, which may be a hemorrhagic cyst or less likely a solid neoplasm. Abdomen CT without and with contrast is recommended. 2. 4 mm nonobstructing right kidney stone. 3. Mild periportal lymphadenopathy, likely reactive. Reviewed, dictated and finalized at location A. IMPRESSION: 1. 5.6 cm right kidney mass, which may be a hemorrhagic cyst or less likely a s olid neoplasm. Abdomen CT without and with contrast is recommended. 2. 4 mm nonobstructing right kidney stone. 3. Mild periportal lymphadenopathy, likely reactive.
[2019-10-26 13:45] VITALS: BP 145/114; PULSE 105; RESP 20; TEMP 36.3; O2SAT 100
[2019-10-26 14:11] LABS: Basophils Absolute Auto 0.1 K/mm3 (0.0-0.1); Basophils Percent Auto 0.7 % (0.2-1.2); Eosinophils Absolute Auto 0.1 K/mm3 (0-0.3); Eosinophils Percent Auto 1.3 % (0-4.4); Hematocrit 44.7 % (37.0-47.0); Hemoglobin 15.6 g/dL (12.0-15.0); Immature Granulocyte Absolute 0.09 K/mm3 (0.00-0.031); Lymphocytes Absolute Auto 1.85 K/mm3 (0.9-3.2); Lymphocytes Percent Auto 20.5 % (18.3-44.2); Mean Corpuscular HGB Conc 34.9 g/dl (32-36); Mean Corpuscular Hemoglobin 29.6 pg (26-34); Mean Corpuscular Volume 84.8 fl (80-100); Mean Platelet Volume 9.3 fl (7.4-10.4); Monocytes Absolute Auto 0.6 K/mm3 (0.1-0.6); Monocytes Percent Auto 6.2 % (2.6-8.5); Neutrophils Absolute Auto 6.4 K/mm3 (1.3-6.7); Neutrophils Percent Auto 70.3 % (45.5-73.1); Platelet Count Result 255 k/mm3 (150-375); Red Blood Count 5.27 M/mm3 (4.2-5.4); Red Cell Distribution Width 12.8 % (11.5-14.5)
[2019-10-26] MEDS: SODIUM CHLORIDE 0.9% IV 1,000 ML 999 ML IV CONT (14:14)
[2019-10-26] MEDS: FAMOTIDINE 20 MG/2 ML VIAL IV PUSH (14:15)
[2019-10-26 14:22] VITALS: BP 144/109; PULSE 106; RESP 20; O2SAT 100
[2019-10-26 14:23] LABS: Alanine Aminotransferase 20 U/L (4-35); Albumin Level 4.6 g/dL (3.5-5.1); Alkaline Phosphatase 66 U/L (38-126); Anion Gap 12 mmol/L (8-16); Aspartate Amino Transferase 24 U/L (14-36); Bilirubin,Total 0.7 mg/dL (0.2-1.3); Blood Urea Nitrogen 12 mg/dL (7-17); Carbon Dioxide 23 mmol/L (22-30); Chloride 97 mmol/L (98-107); Estimated CRCL calculation 246 ml/min; Estimated Glomerular Filt Rate > 60; Glucose 229 mg/dL (65-105); Lipase 54 U/L (23-300); Sodium 132 mmol/L (137-145)
--- NOTE | 2019-10-26 14:40 | ED.ABDPAIN ---
HPI - Abdominal Pain General Chief Complaint: Abdominal Pain <RUSS Cedeño Last Filed: 10/26/19 16:32> Stated Complaint: lower abd pain <RUSS Cedeño Last Filed: 10/26/19 16:32> Time Seen by Provider: 10/26/19 13:52 <RUSS Cedeño Last Filed: 10/26/19 16:32> Source: patient <RUSS Cedeño Last Filed: 10/26/19 16:32> Mode of arrival: ambulatory <RUSS Cedeño Last Filed: 10/26/19 16:32> Limitations: no limitations <RUSS Cedeño Last Filed: 10/26/19 16:32> History of Present Illness HPI narrative: Patient is a 39-year-old female who presents to emergency department for evaluation of lower abdominal pain that is moderate to severe in nature began a few hours ago with associated nausea denies similar occurrence or etiology as the cause patient denies any recent illness or contacts with similar occurrence or any diarrhea vaginal or urinary complaints patient has not taken anything for symptoms and presents uncomfortable in no distress <RUSS Cedeño Last Filed: 10/26/19 16:32> Related Data Home Medications: Home Medications Medication Instructions Recorded Confirmed ProAir HFA 8.5 g 02/11/19 carbamazepine 100 mg PO TID 02/11/19 clonazepam 0.5 mg BID 02/11/19 02/11/19 ergocalciferol (vitamin D2) 50,000 unit PO WEEKLY 02/11/19 02/11/19 [Vitamin D2] sertraline 100 mg PO BID 03/17/19 03/17/19 fenofibrate 160 mg PO DAILY 04/14/19 04/14/19 lisinopril 20 mg PO DAILY 04/14/19 04/14/19 ondansetron HCl [Zofran] 8 mg PO Q8H PRN 04/14/19 04/14/19 propranolol 40 mg PO DAILY 04/14/19 04/14/19 rizatriptan 10 mg PO ONCE PRN 04/14/19 04/14/19 topiramate 400 mg PO DAILY 04/14/19 04/14/19 cetirizine [Zyrtec] 10 mg PO DAILY 10/26/19 doxycycline hyclate 100 mg PO DAILY 10/26/19 esomeprazole magnesium [Nexium] 20 mg PO DAILY 10/26/19 hydroxyzine HCl 25 mg PO 10/26/19 insulin aspart U-100 [Novolog 6 - 18 unit SUBCUT 10/26/19 Flexpen U-100 Insulin] insulin detemir U-100 [Levemir 25 unit SUBCUT HS 10/26/19 FlexTouch U-100 Insuln] <Ji Vyas PA-C - Last Filed: 10/26/19 16:32> Allergies/Adverse Reactions: Allergies Allergy/AdvReac Type Severity Reaction Status Date / Time No Known Allergies Allergy Unknown Uncoded 10/26/19 13:52 <Ji Vyas PA-C - Last Filed: 10/26/19 16:32> Review of Systems Review of Systems: All systems reviewed & are unremarkable except as noted in HPI and below <Ji Vyas PA-C - Last Filed: 10/26/19 16:32> [facility] Past Medical History Medical History: Medical History Asthma Chronic sinusitis Diabetes mellitus Eczema Essential (primary) hypertension GERD (gastroesophageal reflux disease) HLD (hyperlipidemia) Kidney stones Migraines PCOS (polycystic ovarian syndrome) Seasonal allergies <Ji Vyas PA-C - Last Filed: 10/26/19 16:32> Surgical History Surgical History: Surgical History S/P cubital tunnel release Left S/P myringotomy with insertion of tube S/P nasal surgery Dr. Grimm for chronic sinusitis S/P tonsillectomy and adenoidectomy <Ji Vyas PA-C - Last Filed: 10/26/19 16:32> Family History Family History: Family History Father Family history of heart disease in male family member before age 55 Diabetes mellitus Asthma Hypertension Acute myocardial infarction Cerebrovascular accident COPD (chronic obstructive pulmonary disease) Sibling Hypertension Mother COPD (chronic obstructive pulmonary disease) Grandparent Cerebrovascular accident Alzheimer disease Parkinson disease <Ji Vyas PA-C - Last Filed: 10/26/19 16:32> Social History Social History: Social History (Reviewed 10/26/19 @ 14:40 by Triston
[2019-10-26 14:43] LABS: Add Urine Microscopic? YES; Appearance Urine Clear (Clear); Bacteria Urine Trace /hpf; Bilirubin Urine Negative (Negative); Blood Urine Negative (Negative); Color Urine Yellow (Yellow); Glucose Urine UA 2+ mg/dL (Negative); Ketones Urine Negative (Negative); Leukocyte Esterase Ur Trace LEU/UL (Negative); Mucus Urine Rare /lpf; Nitrate Urine Negative (Negative); Protein Urine 2+ mg/dL (Negative); RBC Urine 0-2 /hpf (0-2); Specific Grav Ur 1.021 (1.001-1.035); Squamous Epithelial Cell Urine Moderate /hpf (Few); Urobilinogen Urine Negative mg/dL (<2.0); WBC Urine 0-3 /hpf
[2019-10-26 15:26] VITALS: BP 152/99; PULSE 103; RESP 13; O2SAT 99
[2019-10-26] MEDS: IBUPROFEN IV 800 MG/200 ML 800 MG/200 ML BAG 400 MG IVPB (17:01)
== END 2019-10-26 18:01 | disposition home or self-care (01) ==
PROVIDERS: Emergency Medicine Emergency Medical Services; Emergency Provider Emergency Medicine; PCP Physician Assistant
DX: N28.89 Other specified disorders of kidney and ureter (principal); R10.30 Lower abdominal pain, unspecified; J45.909 Unspecified asthma, uncomplicated; E11.9 Type 2 diabetes mellitus without complications; I10 Essential (primary) hypertension; K21.9 Gastro-esophageal reflux disease without esophagitis; E78.5 Hyperlipidemia, unspecified; Z79.4 Long term (current) use of insulin
CPT/HCPCS: 36415; 74177; 80053; 81001; 81025; 83690; 85025; 96361; 96365; 96367; 96375; 99284; J0131; J1741; J7030; Q9967

== ENCOUNTER 2019-11-05 06:41 | Outpatient (CLI) | payer OTHER, SELFPAY ==
--- NOTE | ~2019-11-05 | CT_ITS ---
EXAMINATION: CT abdomen pelvis wo/w con DATE: 11/05/2019 07:10 INDICATION: Right kidney mass. TECHNIQUE: Computed tomography (CT) of the abdomen and pelvis was performed without and with 100 mL O mnipaque 350 intravenous contrast. Automated exposure control and iterative reconstruction technique were employed. The dose-length product was 2237.01 mGy-cm. COMPARISON: CT abdomen and pelvis 10/26/2019 FINDINGS: The visualized portions of the lung bases are clear without pneumonia or pleural effusion. The heart size is normal. No pericardial effusion. There is diffuse hepatic steatosis. The gallbladde r is normal. There is splenomegaly measuring 17.4 cm. The pancreas, adrenal glands, and left kidney a re normal. There is a 5.6 cm hemorrhagic cyst in right kidney. There is an 11 mm cyst in right kidney . There is a 4 mm stone in right kidney. There is an intrauterine device in expected position. There are no dilated loops of bowel. The appendix is normal. There is mild periportal lymphadenopathy. Ther e is no free intraperitoneal fluid. There is mild thoracolumbar spondylosis. IMPRESSION: 1. Benign cysts in right kidney. 2. 4 mm nonobstructing right kidney stone. 3. Mild periportal lymphadenopathy, likely reactive. 4. Mild splenomegaly, which may be secondary to obesity. 5. Diffuse hepatic steatosis. Reviewed, dictated and finalized at location B.
== END 2019-11-05 06:42 | disposition home or self-care (01) ==
LOC: ANHIMG 06:42
PROVIDERS: PCP Physician Assistant; Visit Provider Physician Assistant
DX: K76.0 Fatty (change of) liver, not elsewhere classified (principal); N28.1 Cyst of kidney, acquired; N20.0 Calculus of kidney; R16.1 Splenomegaly, not elsewhere classified
CPT/HCPCS: 74178; Q9967

== ENCOUNTER 2019-12-24 08:00 | Outpatient (RCR) | payer OTHER, SELFPAY ==
[2019-12-24 08:09] VITALS: BMI 43.8
== END 2020-01-18 09:46 | disposition home or self-care (01) ==
LOC: ANHDMC 08:00
PROVIDERS: PCP Physician Assistant; Visit Provider Physician Assistant
DX: E11.65 Type 2 diabetes mellitus with hyperglycemia (principal); L02.31 Cutaneous abscess of buttock; Z71.89 Other specified counseling; Z71.3 Dietary counseling and surveillance
CPT/HCPCS: 97803; G0108

== ENCOUNTER 2020-02-25 13:00 | Outpatient (RCR) | payer OTHER, SELFPAY | END 2020-02-25 16:35 | disposition home or self-care (01) | LOC: ANHDMC 13:00 | PROVIDERS: PCP Physician Assistant; Visit Provider Physician Assistant | DX: E11.65 Type 2 diabetes mellitus with hyperglycemia (principal); L02.31 Cutaneous abscess of buttock; Z71.89 Other specified counseling | CPT/HCPCS: G0108 ==

== ENCOUNTER 2020-05-30 09:13 | Outpatient (RCR) | payer OTHER, SELFPAY | END 2020-05-30 13:45 | disposition home or self-care (01) | LOC: ANHDMC 09:13 | PROVIDERS: PCP Physician Assistant; Visit Provider Physician Assistant | DX: E11.65 Type 2 diabetes mellitus with hyperglycemia (principal); L02.31 Cutaneous abscess of buttock; Z71.89 Other specified counseling | CPT/HCPCS: G0108 ==

== ENCOUNTER 2020-07-21 15:52 | Outpatient (CLI) | payer OTHER, SELFPAY ==
--- NOTE | ~2020-07-21 | US_ITS ---
US venous doppler LE DATE: 07/21/2020 16:14 INDICATION: Swelling, mass of right leg TECHNIQUE: Real-time and color flow imaging and Doppler analysis of the veins of the right lower extr emity COMPARISON: None FINDINGS: The right greater saphenous vein is patent. There is spontaneous and phasic flow and normal augmentation and color flow signal and normal compression of the deep veins of the right leg. IMPRESSION: Negative examination; no evidence of deep venous thrombosis Reviewed, dictated and finalized at Location A. Reviewed, dictated and finalized at location A.
== END 2020-07-21 15:53 | disposition home or self-care (01) ==
LOC: ANHIMG 15:53
PROVIDERS: PCP Physician Assistant; Visit Provider Physician Assistant
DX: R22.41 Localized swelling, mass and lump, right lower limb (principal)
CPT/HCPCS: 93971

== ENCOUNTER 2020-07-22 06:54 | Outpatient (CLI) | payer OTHER, SELFPAY ==
--- NOTE | 2020-07-22 | ECHO_ITS ---
Patient Info Name: Alannah Ruano Age: 40 years : 1980 Gender: Female Ht: 62 in Wt: 282 lbs BSA: 2.45 m2 HR: 72 bpm BP: 124 / 94 mmHg Heart Rhythm: Sinus Rhythm Technical Quality: Good Exam Date: 07/22/2020 7:21 AM Exam Location: [facility] Patient Status: Outpatient Admit Date: 07/22/2020 Staff Ordering Physician: MarandaBisi PA-C Pattern Checker: [place], DENITA, RT Attending Provider: EbonyBisi PA-C Exam Type: CA echo doppler color flow Study Info Indications R60.0 - Localized edema Complete two-dimensional, color flow and Doppler transthoracic echocardiogram is performed. Strain analysis performed. Summary 1. Complete two-dimensional, color flow and Doppler transthoracic echocardiogram is performed. 2. Left ventricular chamber dimension is normal. 3. Left ventricular systolic function is normal, estimated at 65-70%. 4. There is mildly increased left ventricular wall thickness. 5. The left ventricular diastolic function is normal. 6. Global longitudinal strain is abnormal at -14 %. 7. There is trace aortic valve regurgitation. Left Ventricle Left ventricular chamber dimension is normal. Left ventricular systolic function is normal, estimated at 65-70%. There is mildly increased left ventricular wall thickness. The left ventricular diastolic function is normal. Global longitudinal strain is abnormal at -14 %. Right Ventricle Right ventricular chamber dimension is normal. Right ventricular systolic function is normal. Left Atria Left atrial chamber dimension is normal. Right Atria Right atrial chamber dimension is normal. Atrial Septum Intact interatrial septum visualized by color flow imaging. Aortic Valve The aortic valve is probable trileaflet. There is no aortic valve sclerosis. There is no aortic valve stenosis. There is trace aortic valve regurgitation. Pulmonic Valve The pulmonic valve is normal. There is no pulmonic valve stenosis. There is trace pulmonic regurgitation. Mitral Valve The mitral valve has normal leaflets. There is no mitral valve stenosis. There is trace mitral valve regurgitation. Tricuspid Valve The tricuspid valve leaflets are normal. There is no significant tricuspid valve stenosis. There is trace tricuspid valve regurgitation. Pericardium/Pleural The pericardium appears normal. There is no pericardial effusion. Inferior Vena Cava Normal inferior vena cava with >50% collapse upon inspiration consistent with normal right atrial pressure, 5 mmHg. Aorta The aortic root size at the sinus of Valsalva is normal. The prox ascending aorta size is normal. Left Ventricular Outflow Tract Name Value Normal LVOT 2D LVOT Diameter 2.0 cm LVOT Doppler LVOT Peak Gradient 3 mmHg LVOT Mean Gradient 1 mmHg LVOT VTI 19 cm LVOT VTI/AV VTI Ratio 0.7 LVOT Stroke Volume 60 ml LVOT CO 4.4 l/min LVOT CI
== END 2020-07-22 06:55 | disposition home or self-care (01) ==
PROVIDERS: PCP Physician Assistant; Visit Provider Physician Assistant
DX: R22.41 Localized swelling, mass and lump, right lower limb (principal)
CPT/HCPCS: 93306

== ENCOUNTER 2022-03-02 15:52 | Emergency (ER) | payer OTHER, SELFPAY ==
[2022-03-02 16:03] VITALS: BP 163/107; PULSE 84; RESP 16; TEMP 36.3; O2SAT 100
[2022-03-02 16:09] VITALS: BP 163/107; PULSE 84; RESP 16; TEMP 36.3; O2SAT 100
--- NOTE | 2022-03-02 16:17 | ED.EAR ---
HPI - Ear Problem General Chief complaint: Ear Stated complaint: rt ear pain,fever Time Seen by Provider: 03/02/22 16:17 Source: patient, RN notes reviewed and old records reviewed Mode of arrival: ambulatory Limitations: no limitations History of Present Illness HPI Narrative: 41 year old female who presents to [facility] with complaints of right ear ache, sinus congestion, drainage, sore throat, some cough worsening over the past 5 days.Patient reports that her ear pain has aggravated her trigeminal neuralgia and she has been having migraine headaches which have not resolved completely with us of Nurtec, and Topamax. Patient has taken OTC medication of Sherri, Tylenol cold and sinus, Sudafed PE and Coricidin HBP Complaint: ear pain and other (sinus congestion headache) Location: right ear Severity: moderate Treatment prior to arrival: other (sherri, coricidin, sudafed PE, ) Related Data Home Medications Medication Instructions Recorded Confirmed ergocalciferol (vitamin D2) 1,250 50,000 unit PO WEEKLY 02/11/19 03/02/22 mcg (50,000 unit) capsule (Vitamin D2) fenofibrate 160 mg tablet 160 mg PO DAILY 04/14/19 03/02/22 doxycycline hyclate 100 mg capsule 100 mg PO DAILY 10/26/19 03/02/22 esomeprazole magnesium 20 mg 20 mg PO DAILY 10/26/19 03/02/22 capsule,delayed release (Nexium) albuterol sulfate 2.5 mg/3 mL 2.5 mg continuous nebulization 03/02/22 03/02/22 (0.083 %) solution for nebulization DIRECTED atorvastatin 40 mg tablet 40 mg PO DAILY 03/02/22 03/02/22 bupropion HCl 100 mg tablet 100 mg PO DAILY 03/02/22 03/02/22 dapagliflozin 10 mg tablet 10 mg PO DAILY 03/02/22 03/02/22 (Farxiga) ergocalciferol (vitamin D2) 1,250 1,250 mcg PO DAILY 03/02/22 03/02/22 mcg (50,000 unit) capsule eszopiclone 3 mg tablet 3 mg PO DAILY 03/02/22 03/02/22 fluticasone 250 mcg-salmeterol 50 250 inh inhalation DIRECTED 03/02/22 03/02/22 mcg/dose blistr powdr for inhalation (Advair Diskus) insulin aspart U-100 100 unit/mL 100 unit subcut DAILY 03/02/22 03/02/22 subcutaneous solution (Novolog U-100 Insulin aspart) ketorolac 0.5 % eye drops 0.5 drp ophthalmic (eye) DAILY 03/02/22 03/02/22 losartan 50 mg tablet 50 mg PO DAILY 03/02/22 03/02/22 montelukast 10 mg tablet 10 mg PO DAILY 03/02/22 03/02/22 pantoprazole 40 mg tablet,delayed 40 mg PO DAILY 03/02/22 03/02/22 release semaglutide 0.25 mg or 0.5 mg (2 0.25 mg subcut WEEKLY 03/02/22 03/02/22 mg/1.5 mL) subcutaneous pen injector (Ozempic) topiramate 200 mg tablet 200 mg PO DAILY 03/02/22 03/02/22 Allergies Allergy/AdvReac Type Severity Reaction Status Date / Time No Known Allergies Allergy Unknown Uncoded 03/02/22 16:21 Review of Systems Review of Systems: CONSTITUTIONAL: Denies malaise, chills, sweats, or fever. EYES: Denies visual changes, redness, or discharge. ENT: Reports rhinorrhea, congestion, sinus pain, right otalgia and sore throat. CARDIOVASCULAR: Denies chest pain, palpitations, or edema. RESPIRATORY: Reports cough.? Denies dyspnea. GASTROINTESTINAL: Denies abdominal pain, nausea, vomiting, diarrhea SKIN: Denies rash or itching. MUSCULOSKELETAL: Denies myalgia. NEUROLOGIC: Reports headache. All systems reviewed & are unremarkable except as noted in HPI and below PMFSH Past Medical History Medical History Asthma Chronic sinusitis Diabetes mellitus Eczema Essential (primary) hypertension GERD (gastroesophageal reflux disease) HLD (hyperlipidemia) Kidney stones Migraines PCOS (polycystic ovarian syndrome) Seasonal allergies Surgical History Surgical History S/P cubital tunnel release Left S/P myringotomy with insertion of tube S/P nasal surgery Dr. Grimm for chronic sinusitis S/P tonsillectomy and adenoidectomy Family History Family History (Reviewed 03/02/22 @ 17:14 by Jen Dale, [employer] ARCHITECT
== END 2022-03-02 16:40 | disposition home or self-care (01) ==
PROVIDERS: Emergency Provider Registered Nurse; PCP Physician Assistant
DX: H60.311 Diffuse otitis externa, right ear (principal); J01.40 Acute pansinusitis, unspecified; J45.909 Unspecified asthma, uncomplicated; E11.9 Type 2 diabetes mellitus without complications; I10 Essential (primary) hypertension; K21.9 Gastro-esophageal reflux disease without esophagitis; E78.5 Hyperlipidemia, unspecified; E28.2 Polycystic ovarian syndrome
CPT/HCPCS: 99213; G0463

== ENCOUNTER 2023-04-03 10:43 | Emergency (ER) | payer OTHER, SELFPAY ==
[2023-04-03 10:54] VITALS: BP 137/105; PULSE 76; RESP 16; TEMP 36.7; O2SAT 100
--- NOTE | 2023-04-03 11:54 | ED.HA ---
HPI - Headache General Chief Complaint: Headache Stated Complaint: HEADACHE/EARACHE Time Seen by Provider: 04/03/23 11:35 Source: patient and RN notes reviewed Mode of arrival: ambulatory Limitations: no limitations History of Present Illness HPI Narrative: Patient presents today complaining of headache, right ear pain with muffled hearing. Since yesterday. Denies any additional symptoms to include congestion, rhinorrhea, cough, nausea or vomiting, fever. Currently rates her pain 6/10. She has tried sinus medication, Tylenol, ibuprofen, and multiple migraine medications. She does have history of migraine and states this does not feel similar. This is not her worst headache ever. Related Data Home Medications Medication Instructions Recorded Confirmed ergocalciferol (vitamin D2) 1,250 50,000 unit PO WEEKLY 02/11/19 04/03/23 mcg (50,000 unit) capsule (Vitamin D2) doxycycline hyclate 100 mg capsule 100 mg PO DAILY 10/26/19 04/03/23 albuterol sulfate 2.5 mg/3 mL 2.5 mg continuous nebulization 03/02/22 04/03/23 (0.083 %) solution for nebulization DIRECTED atorvastatin 40 mg tablet 40 mg PO DAILY 03/02/22 04/03/23 bupropion HCl 100 mg tablet 100 mg PO DAILY 03/02/22 04/03/23 dapagliflozin propanediol 10 mg 10 mg PO DAILY 03/02/22 04/03/23 tablet (Farxiga) ergocalciferol (vitamin D2) 1,250 1,250 mcg PO DAILY 03/02/22 04/03/23 mcg (50,000 unit) capsule eszopiclone 3 mg tablet 3 mg PO DAILY 03/02/22 04/03/23 fluticasone 250 mcg-salmeterol 50 250 inh inhalation DIRECTED 03/02/22 04/03/23 mcg/dose blistr powdr for inhalation (Advair Diskus) insulin aspart U-100 100 unit/mL 100 unit subcut DAILY 03/02/22 04/03/23 subcutaneous solution (Novolog U-100 Insulin aspart) losartan 50 mg tablet 50 mg PO DAILY 03/02/22 04/03/23 montelukast 10 mg tablet 10 mg PO DAILY 03/02/22 04/03/23 pantoprazole 40 mg tablet,delayed 40 mg PO DAILY 03/02/22 04/03/23 release semaglutide 0.25 mg or 0.5 mg (2 0.25 mg subcut WEEKLY 03/02/22 04/03/23 mg/1.5 mL) subcutaneous pen injector (Ozempic) topiramate 200 mg tablet 200 mg PO DAILY 03/02/22 04/03/23 carbamazepine 200 mg tablet 100 mg PO TID 04/03/23 04/03/23 oxymetazoline 1 % topical cream 1 applic topical DAILY 04/03/23 04/03/23 (Rhofade) rabeprazole 20 mg tablet,delayed 20 mg PO BID 04/03/23 04/03/23 release rimegepant 75 mg disintegrating 75 mg PO DAILY 04/03/23 04/03/23 tablet (Nurtec ODT) ubrogepant 100 mg tablet (Ubrelvy) 100 mg PO PRN PRN Migraine Headache 04/03/23 04/03/23 Allergies Allergy/AdvReac Type Severity Reaction Status Date / Time No Known Allergies Allergy Unknown Uncoded 04/03/23 11:17 Review of Systems Review of Systems: CONSTITUTIONAL: Denies body aches, fever, chills, or sweats. EYES: Denies visual changes, redness, or discharge. ENT: Denies rhinorrhea, congestion, sore throat. + right ear pain and muffled hearing CARDIOVASCULAR: Denies chest pain, palpitations, or edema. RESPIRATORY: Denies cough or dyspnea. GASTROINTESTINAL: Denies abdominal pain, nausea, vomiting, or diarrhea. GENITOURINARY: Denies dysuria or hematuria. SKIN: Denies rash, itching, or wounds. MUSCULOSKELETAL: Denies back pain, joint pain, or myalgia. NEUROLOGIC: Denies numbness, tingling, or weakness.+ headache PSYCH: Denies depression or anxiety. FOR[facility]LY [facility], [facility] Past Medical History Medical History Asthma Chronic sinusitis Diabetes mellitus Eczema Essential (primary) hypertension GERD (gastroesophageal reflux disease) HLD (hyperlipidemia) Kidney stones Migraines PCOS (polycystic ovarian syndrome) Seasonal allergies Surgical History Surgical History S/P cubital tunnel release Left S/P myringotomy with insertion of tube S/P nasal surgery Dr. Grimm for chronic sinusitis S/P tonsillectomy and adenoidectomy Family History Family
== END 2023-04-03 11:52 | disposition home or self-care (01) ==
PROVIDERS: Emergency Provider Nurse Practitioner; PCP Physician Assistant
DX: R51.9 Headache, unspecified (principal); H92.01 Otalgia, right ear; J45.909 Unspecified asthma, uncomplicated; E11.9 Type 2 diabetes mellitus without complications; Z79.4 Long term (current) use of insulin; I10 Essential (primary) hypertension; K21.9 Gastro-esophageal reflux disease without esophagitis; E78.5 Hyperlipidemia, unspecified; E28.2 Polycystic ovarian syndrome
CPT/HCPCS: 99213; G0463

== ENCOUNTER 2023-04-04 12:21 | Emergency (ER) | payer OTHER, SELFPAY ==
[2023-04-04 12:25] VITALS: BP 165/105; PULSE 124; RESP 17; TEMP 36.8; O2SAT 99
[2023-04-04] MEDS: SODIUM CHLORIDE 0.9% IV 1,000 ML 999 ML IV CONT (13:09)
[2023-04-04] MEDS: diphenhydrAMINE HCl INJ 50 MG/ML VIAL 25 MG IV PUSH (13:10)
[2023-04-04] MEDS: KETOROLAC 30 MG/ML VIAL (*BKC) IV PUSH (13:10)
[2023-04-04] MEDS: METOCLOPRAMIDE HCL INJ 10 MG/2 ML VIAL IV PUSH (13:10)
--- NOTE | 2023-04-04 15:08 | ED.HA ---
HPI - Headache General Chief Complaint: Headache Stated Complaint: Migraine Time Seen by Provider: 04/04/23 12:28 Patient is a 41-year-old female who presents to the ER with right-sided migraine headache. Patient has history of migraines headaches. She was seen at an urgent care yesterday concerned that she may have a sinus infection. She has been taking her home medication without improvement. No fevers or chills or sweats. No chest pain or chest pressure. patient has some photophobia. Related Data Home Medications Medication Instructions Recorded Confirmed ergocalciferol (vitamin D2) 1,250 50,000 unit PO WEEKLY 02/11/19 04/03/23 mcg (50,000 unit) capsule (Vitamin D2) doxycycline hyclate 100 mg capsule 100 mg PO DAILY 10/26/19 04/03/23 albuterol sulfate 2.5 mg/3 mL 2.5 mg continuous nebulization 03/02/22 04/03/23 (0.083 %) solution for nebulization DIRECTED atorvastatin 40 mg tablet 40 mg PO DAILY 03/02/22 04/03/23 bupropion HCl 100 mg tablet 100 mg PO DAILY 03/02/22 04/03/23 dapagliflozin propanediol 10 mg 10 mg PO DAILY 03/02/22 04/03/23 tablet (Farxiga) ergocalciferol (vitamin D2) 1,250 1,250 mcg PO DAILY 03/02/22 04/03/23 mcg (50,000 unit) capsule eszopiclone 3 mg tablet 3 mg PO DAILY 03/02/22 04/03/23 fluticasone 250 mcg-salmeterol 50 250 inh inhalation DIRECTED 03/02/22 04/03/23 mcg/dose blistr powdr for inhalation (Advair Diskus) insulin aspart U-100 100 unit/mL 100 unit subcut DAILY 03/02/22 04/03/23 subcutaneous solution (Novolog U-100 Insulin aspart) losartan 50 mg tablet 50 mg PO DAILY 03/02/22 04/03/23 montelukast 10 mg tablet 10 mg PO DAILY 03/02/22 04/03/23 pantoprazole 40 mg tablet,delayed 40 mg PO DAILY 03/02/22 04/03/23 release semaglutide 0.25 mg or 0.5 mg (2 0.25 mg subcut WEEKLY 03/02/22 04/03/23 mg/1.5 mL) subcutaneous pen injector (Ozempic) topiramate 200 mg tablet 200 mg PO DAILY 03/02/22 04/03/23 carbamazepine 200 mg tablet 100 mg PO TID 04/03/23 04/03/23 oxymetazoline 1 % topical cream 1 applic topical DAILY 04/03/23 04/03/23 (Rhofade) rabeprazole 20 mg tablet,delayed 20 mg PO BID 04/03/23 04/03/23 release rimegepant 75 mg disintegrating 75 mg PO DAILY 04/03/23 04/03/23 tablet (Nurtec ODT) ubrogepant 100 mg tablet (Ubrelvy) 100 mg PO PRN PRN Migraine Headache 04/03/23 04/03/23 Allergies Allergy/AdvReac Type Severity Reaction Status Date / Time No Known Allergies Allergy Unknown Uncoded 04/03/23 11:17 Review of Systems Review of Systems: All systems reviewed & are unremarkable except as noted in HPI and below Constitutional: Constitutional: Reports no additional constitutional complaints ENT: Reports system reviewed and no additional complaints, except as documented Cardiovascular: Cardiovascular: Reports no additional cardiovascular complaints Respiratory: Respiratory: Reports no additional respiratory complaints Gastrointestinal: Gastrointestinal: Reports no additional gastrointestinal complaints Musculoskeletal: Musculoskeletal: Reports no additional musculoskeletal complaints Neurologic: Denies syncope, Reports headache(s), Denies focal weakness and Denies numbness PMFSH Past Medical History Medical History (Updated 04/04/23 @ 15:09 by Nathan Zhang MD) Asthma Chronic sinusitis Diabetes mellitus Eczema Essential (primary) hypertension GERD (gastroesophageal reflux disease) HLD (hyperlipidemia) Kidney stones Migraines PCOS (polycystic ovarian syndrome) Seasonal allergies Surgical History Surgical History S/P cubital tunnel release Left S/P myringotomy with insertion of tube S/P nasal surgery Dr. Grimm for chronic sinusitis S/P tonsillectomy and adenoidectomy Family History Family History Father Family history of heart disease in male family member before age 55 Diabetes mellitus Ast
== END 2023-04-04 15:18 | disposition home or self-care (01) ==
PROVIDERS: Emergency Provider Emergency Medicine; PCP Physician Assistant
DX: G43.909 Migraine, unspecified, not intractable, without status migrainosus (principal); J45.909 Unspecified asthma, uncomplicated; J32.9 Chronic sinusitis, unspecified; I10 Essential (primary) hypertension; E11.9 Type 2 diabetes mellitus without complications; E78.5 Hyperlipidemia, unspecified; E28.2 Polycystic ovarian syndrome; K21.9 Gastro-esophageal reflux disease without esophagitis; Z87.442 Personal history of urinary calculi; Z79.85 Long-term (current) use of injectable non-insulin antidiabetic drugs; Z79.4 Long term (current) use of insulin
CPT/HCPCS: 96361; 96374; 96375; 99284; J1200; J1885; J2765; J7030

== ENCOUNTER 2024-02-21 14:15 | Outpatient (CLI) | payer OTHER, SELFPAY ==
--- NOTE | ~2024-02-21 | XR_ITS ---
EXAMINATION: XR abdomen/kub 1V DATE: 02/21/2024 14:32 INDICATION: Right ureteral stone. TECHNIQUE: A supine view of the abdomen on 2 radiographs was obtained. COMPARISON: CT abdomen and pelvis 11/05/2019 FINDINGS: There are no dilated loops of bowel. There is an intrauterine device in expected position. There are surgical clips in the abdomen. IMPRESSION: 1. No visible urolithiasis. Reviewed, dictated and finalized at location A. PER MACHINE IMPRESSION: 1. No visible urolithiasis.
--- OUTSIDE RECORDS SUMMARY | 2024-02-24 16:56 | XMS_ITS ---
Author Organization [facility] Address [address] [place] [address] Care Team Providers Care Paving Foreman Name Role Phone Deedee Low Primary Care Provider UnavailJung Boswell Unavailable [phone] Dwight KIM, Noam Unavailable Unavailable Car Angulo Unavailable [phone] REASON FOR VISIT SCIT (Aeroallergen) Encounters Encounter Location Date Provider Diagnosis [facility] [address] [place] [address] 02/10/2024 Car Angulo Plan Of Treatment Next Appt Details Provider Name:Car Angulo , 02/26/2024 08:00:00 AM, [address], [address], Provider Name:Car Angulo , 03/02/2024 12:40:00 PM, [address], [address], [place], [address], Provider Name:Car Angulo , 03/09/2024 08:30:00 AM, [address], [place], [address], Progress Notes * Alannah RUANODOB:[birth year] (43 yo F)Acc No.[id number]:02/10/2024 Generic Cluster 1 hour Patient:?Alannah RUANO Provider:?Car Angulo MD :[id number]???Age:43 Y???Sex:Female D ate:02/10/2024 Address:[address] [place] [address] [place], [id number] Pcp:Deedee Low Subjective: * Chief Complaints: * ???1. SCIT (Aeroallergen). * Medical History:? Objective: * Vitals:? Assessment: Plan: * Treatment: * Billing Information: * Visit Code:? * Procedure Codes:? * Electronic signature of Zulma Angulo MD, FAAAAI on 02/24/2024 at 04:56 PM C[employer]IER AND SALESPERSON Sign off status: Pending * Provider:?Car Angulo MD Date:?02/09 Generated for Sharoni rebekah/Kam/eTransmitting on:?02/24/2024 04:56 PM C[employer]IER AND SALESPERSON
--- OUTSIDE RECORDS SUMMARY | 2024-02-24 16:56 | XMS_ITS ---
Author Organization [facility] Address [address] [place] [address] Care Team Providers Care Emergency Vehicle Dispatcher Name Role Phone Deedee Low Primary Care Provider UnavailJung Boswell Unavailable [phone] Dwight KIM, Noam Unavailable Unavailable Car Angulo Unavailable [phone] REASON FOR VISIT SCIT - Cluster Schedule Immunotherapy (Week ), Needs evaluation for pre- immunotherapy health questionnaire to assess health status and medication review Medications Medication SIG (Take, Route, Frequency, Duration) Notes Start Date End Date Status Amoxicillin-Pot Clavulanate 875-125 MG as directed orally every 12 hours for 10 day(s) 1 Not-Taking SIT (Cluster) variable - see record per schedule subcutaneous per schedule for 999 days 4 Active Montelukast Sodium 10 MG Take 1 tablet b y mouth once daily for 30 Active Lisinopril 20 MG 1 tab(s) orally once a day Not-Taking Atorvastatin Calcium 20 MG 1 tab(s) orally once a day for 30 day(s) Not-Taking Topiramate 200 MG 2 CAPS ORALLY ONCE A DAY *Please review and pick correct strength-formul ation from [employer] options. If intended option is not shown, discontinue and re-order from Quick Search* Not-Taking Ziprasidone HCl 20 MG 1 cap(s) orally 2 times a day Not-Taking Linzess 72 MCG 1 cap(s) orally once a day for 30 day(s) Not-Taking Sherri Allergy 180 MG 1 tab(s) orally BID Not-Taking Advair Diskus 250 MCG-50 MCG INHALE 1 PUFF BY MOUTH TWICE DAILY for 30 *Please review and pick correct strength-formul ation from [employer] options. If intended option is not shown, discontinue and re-order from Quick Search* Not-Taking Farxiga 10 MG 1 tablet Orally Once a day for 30 day(s) 4 Active Ondansetron 4 MG 1 tablet on the tongue and allow to dissolve Orally Once a day for 30 day(s) 4 Active traZODone HCl 50 MG Oral for 30 Days Active Losartan Potassium 50 MG 1 tab(s) orally once a day Active Pantoprazole Sodium 40 MG 1 tab(s) orally once a day for 30 day(s) Active Vyepti 100 MG/ML as directed Intravenous Active Nurtec 75 MG 1 tablet on the tongue and allow to dissolve Orally Active Lunesta 2 MG 1 tablet immediately before bedtime Orally Once a day Active ZyrTEC Allergy 10 MG 1 tablet Orally Once a day Active lamoTRIgine 200 MG 1 tab(s) orally 2 times a day Active hydroCHLOROthiazide 25 MG 1 tablet in the morning Orally Once a day Active Avastin 100 MG/4ML as directed Intravenous Active Ketorolac Tromethamine 10 MG 1 tablet with food or milk as needed Orally every 6 hrs Active Airsupra 90-80 MCG/ACT 2 puffs as needed Inhalation Six times a day Active SIT (TRADITIONAL) variable per schedule 9 per schedule for 999 days Active AUVI -Q 0.3 mg 0.3 mg intramuscularly once for 30 day(s) Active NASAL WASHES N/A as directed intranasally as needed for 30 Active TRIAMCINOLONE ACETONIDE TOPICAL 0.1% 1 alex applied topically 3 times a day for 30 day(s) Active OLOPATADINE NASAL 665 mcg/inh 2 spray(s) intranasally 2 times a day for 30 days Active Trelegy Ellipta 100-62.5-25 MCG/ACT 1 puff Inhalation Once a day for 30 days Active ALBUTEROL SULFATE 2.5 mg/3 mL (0.083%) 3 mL by nebulizer every 6 hours for 30 day(s) Active SHERRI 24 HOUR ALLERGY 180 mg 1 tab(s) orally BID Active FLONASE SENSIMIST 27.5 mcg/inh 2 spray(s) intranasally once a day for 30 day(s) Active AEROCHAMBER MDI SPACER - MOUTHPIECE (ADULT) N/A As directed PO Per asthma action plan Active ADVAIR DISKUS 250 mcg-50 mcg 1 inh inhaled 2 times a day for 30 days Active CARBAMAZEPINE 200 mg 1 tab(s) orally 4 times a day Active INSULIN varies subcutaneously continuous Active DOXYCYCLINE hyclate 100 mg 1 tab(s) orally 2 times a day Active PROPRANOLOL 20 mg 2 tab(s) orally qhs Active PROAIR HFA 90 mcg/inh 2 puff(s) inhaled 4 times a day, prn Active TOPIRAMATE 200 mg 2 caps orally once a day Active ZIPRASIDONE 20 mg 1 cap(s) orally 2 times a day Active MOTEGRITY 2 mg 1 tab(s) orally once a day Active DIAZEPAM 5 mg 1 tab(s) orally 3 times a day Active VITAMIN D3 50,000 intl units as directed orally once a week Active Famotidine 40 mg 1 tab(s) orally 30 mins prior to SCIT for 30 days Active LAMOTRIGINE 200 mg 1 tab(s) orally 2 times a day Active BUPROPION 300 mg/24 hours 1 tab(s) orally every 24 hours Active Vital Signs Blood pressure systolic 133 mm Hg 02/12/20 24 Blood pressure diastolic 87 mm Hg 024 Oximetry 95 % 02/12/2024 Height 64 in 02/12/2024 Encounters Encounter Location Date Provider Diagnosis [facility] [address] [facility] [address] [place] [address] 02/12/2024 Car Angulo Allergic rhinitis du e to pollen J30.1 ; Allergic rhinitis due to animal (cat) (dog) hair and dander J30.81 ; Other allergic rhinitis J30.89 and Other chronic allergic conjunctivitis H10.45 Assessments Encounter Date Diagnosis (ICD Code) Assessment Notes Treatment Notes Treatment Clinical Notes Section Notes 02/12/2024 Allergic rhinitis due to pollen (ICD-10 - J30.1) 02/12/2024 Allergic rhinitis due to animal (cat) (dog) hair and dander (ICD-10 - J30.81) 02/12/2024 Other allergic rhinitis (ICD-10 - J30.89) 02/12/2024 Other chronic allergic conjunctivitis (ICD-10 - H10.45) 02/12/2024 Other Plan Of Treatment Next Appt Details Follow Up: 1 Week, Reason: E valuation and Management,Cluster/Rapid Desensitization Provider Name:Car Angulo , 02/26/2024 08:00:00 AM, [address], [address], [place], [address], Provider Name:Car Angulo , 03/02/2024 12:40:00 PM, [address] [facility] [employer], [address] [facility], [place], [address], Provider Name:Car Angulo , 03/09/2024 08:30:00 AM, [address] [facility] [employer], [address] [address], [place], [address], Procedure Notes * Category Sub-Category Detail Notes Cluster/Rapid IT Desensitization Cluster Visit: Cluster: 8 Dose 1 Nivia Villela 1 04/14/2023 03:11:12 PM PUMP TENDER >, Please see immunotherapy specialty forms for specifics on dosing of vaccine Dose 2 Nivia Villela 1 04/14/2023 03:42:46 PM PUMP TENDER >, Please see immunotherapy specialty forms for specifics on dosing of vaccine Post-procedural Vital Signs: Raulito Villela 02/12/2024 04:14:19 PM PUMP TENDER >, Patient was monitored for 30 minutes after last SCIT dose before discharge Progress Notes * Alannah RUANODOB:[birth year] (43 yo F)Acc No.[id number]:02/12/2024 Generic Cluster 1 hour Patient:?Alannah RUANO Provider:?Car Angulo MD :1980???Age:43 Y???Sex:Female D ate:02/12/2024 Address:[address] [place] [address] [facility] Pcp:Deedee Low Subjective: * Chief Complaints: * ???SCIT - Cluster Schedule I mmunotherapy (Week )Needs evaluation for pre-immunotherapy health questionnaire to assess health status and medication review * HPI: ???*Introduction:? The patient is here for scheduled immunotherapy via cluster desensitization. Please see the attached specialty form regarding the specifics of the administration of these vaccines. As per our protocol, they must undergo a screening health questionnaire (medication changes, reaction(s) to last immunotherapy dose(s), current health status, ACT (if appropriate), self-injectable epinephrine on patient(?) and peak flow (if appropriate)). Also, the patient must wait in our office for 30 minutes after receiving the vaccine(s). Furthermore, every patient must have an epinephrine pen (self-injectable) with them at the time of administration--and carry if for the following 1.5 hours after they leave our office. The patient must also have taken their antihistamine the day of the injection, preferably 2 hours prior. The consent form for SCIT (subcutaneous immunotherapy) is on file. * ROS:?ALLERGY:?Positive?per the HPI and history, otherwise unremarkable.?SPECIAL SENSES:?Positve for?none.?CONSTITUTIONAL:?Positive for?none.?ENT:?Positive?per the HPI and history, otherwise unremarkable.?RESPIRATORY:?Positive for?per the HPI and history, otherwise unremarkable.?OPHTHALMOLOGY:?Positive for?per the HPI and history, otherwise unremarkable.?ENDOCRINOLOGY:?Positive for?none.?CARDIOLOGY:?Positive for?none.?GASTROENTEROLOGY:?Positive for?none.?UROLOGY:?Positive for?none.?DERMATOLOGY:?Positive for?none.?NEUROLOGY:?Positive for?none.?HEMATOLOGY/LYMPH:?Positive for?none.?MUSCULOSKELETAL:?Positive for?none.?PSYCHOLOGY:?Positive for?none.?All other review of systems per the HPI and history, othwise unremarkable. * Medical History:? * Surgical History:? * Hospitalization/Major Diagno stic Procedure:? * Medications:?TakingFamotidin e 40 mg tablet 1 tab(s) orally 30 mins prior to SCIT Famotidine 40 mg tablet 1 tab(s) orally 30 mins prior to SCIT LAMOTRIGINE 200 mg tablet 1 tab(s) orally 2 times a day BUPROPION 300 mg/24 hours tablet, extended release 1 tab(s) orally every 24 hours VITAMIN D3 50,000 intl units capsule as directed orally once a week TOPIRAMATE 200 mg capsule, extended release 2 caps orally once a day ZIPRASIDONE 20 mg capsule 1 cap(s) orally 2 times a day MOTEGRITY 2 mg tablet 1 tab(s) orally once a day DIAZEPAM 5 mg tablet 1 tab(s) orally 3 times a day CARBAMAZEPINE 200 mg tablet 1 tab(s) orally 4 times a day INSULIN varies pump subcutaneously continuous DOXYCYCLINE hyclate 100 mg tablet 1 tab(s) orally 2 times a day PROPRANOLOL 20 mg tablet 2 tab(s) orally qhs PROAIR HFA 90 mcg/inh aerosol 2 puff(s) inhaled 4 times a day, prn AEROCHAMBER MDI SPACER - MOUTHPIECE (ADULT) N/A Spacer for MDI use As directed PO Per asthma action plan ADVAIR DISKUS 250 mcg- 50 mcg powder 1 inh inhaled 2 times a day ALBUTEROL SULFATE 2.5 mg/3 mL (0.083%) solution 3 mL by nebulizer every 6 hours SHERRI 24 HOUR ALLERGY 180 mg tablet 1 tab(s) orally BID FLONASE SENSIMIST 27.5 mcg/inh spray 2 spray(s) intranasally once a day AUVI -Q 0.3 mg kit 0.3 mg intramuscularly once NASAL WASHES N/A 1 quart of sterilized tap water or distilled water, 1 tsp NaCl, 1 pinch of baking soda as directed intranasally as needed TRIAMCINOLONE ACETONIDE TOPICAL 0.1% ointment 1 alex applied topically 3 times a day OLOPATADINE NASAL 665 mcg/inh spray 2 spray(s) intranasally 2 times a day Trelegy Ellipta 100-62.5-25 MCG/ACT Aerosol Powder Breath Activated 1 puff Inhalation Once a day Airsupra 90-80 MCG/ACT Aerosol 2 puffs as needed Inhalation Six times a day SIT (TRADITIONAL) variable see record per schedule 9 per schedule hydroCHLOROthiazide 25 MG Tablet 1 tablet in the morning Orally Once a day Avastin 100 MG/4ML Solution as directed Intravenous Ketorolac Tromethamine 10 MG Tablet 1 tablet with food or milk as needed Orally every 6 hrs Vyepti 100 MG/ML Solution as directed Intravenous Nurtec 75 MG Tablet Disintegrating 1 tablet on the tongue and allow to dissolve Orally Lunesta 2 MG Tablet 1 tablet immediately before bedtime Orally Once a day ZyrTEC Allergy 10 MG Tablet 1 tablet Orally Once a day lamoTRIgine 200 MG Tablet 1 tab(s) orally 2 times a day Losartan Potassium 50 MG Tablet 1 tab(s) orally once a day Pantoprazole Sodium 40 MG Tablet Delayed Release 1 tab(s) orally once a day Farxiga 10 MG Tablet 1 tablet Orally Once a day Ondansetron 4 MG Tablet Disintegrating 1 tablet on the tongue and allow to dissolve Orally Once a day traZODone HCl 50 MG Tablet Oral SIT (Cluster) variable - see record variable - see record per schedule subcutaneous per schedule Montelukast Sodium 10 MG Tablet Take 1 tablet by mouth once daily Taking Famotidine 40 mg tablet 1 tab(s) orally 30 mins prior to SCIT Taking Famotidine 40 mg tablet 1 tab(s) orally 30 mins prior to SCIT Taking LAMOTRIGINE 200 mg tablet 1 tab(s) orally 2 times a day Taking BUPROPION 300 mg/24 hours tablet, extended release 1 tab(s) orally every 24 hours Taking VITAMIN D3 50,000 intl units capsule as directed orally once a week Taking TOPIRAMATE 200 mg capsule, extended release 2 caps orally once a day Taking ZIPRASIDONE 20 mg capsule 1 cap(s) orally 2 times a day Taking MOTEGRITY 2 mg tablet 1 tab(s) orally once a day Taking DIAZEPAM 5 mg tablet 1 tab(s) orally 3 times a day Taking CARBAMAZEPINE 200 mg tablet 1 tab(s) orally 4 times a day Taking INSULIN varies pump subcutaneously continuous Taking DOXYCYCLINE hyclate 100 mg tablet 1 tab(s) orally 2 times a day Taking PROPRANOLOL 20 mg tablet 2 tab(s) orally qhs Taking PROAIR HFA 90 mcg/inh aerosol 2 puff(s) inhaled 4 times a day, prn Taking AEROCHAMBER MDI SPACER - MOUTHPIECE (ADULT) N/A Spacer for MDI use As directed PO Per asthma action plan Taking ADVAIR DISKUS 250 mcg-50 mcg powder 1 inh inhaled 2 times a day Taking ALBUTEROL SULFATE 2.5 mg/3 mL (0.083%) solution 3 mL by nebulizer every 6 hours Taking SHERRI 24 HOUR ALLERGY 180 mg tablet 1 tab(s) orally BID Taking FLONASE SENSIMIST 27.5 mcg/inh spray 2 spray(s) intranasally once a day Taking AUVI -Q 0.3 mg kit 0.3 mg intramuscularly once Taking NASAL WASHES N/A 1 quart of sterilized tap water or distilled water, 1 tsp NaCl, 1 pinch of baking soda as directed intranasally as needed Taking TRIAMCINOLONE ACETONIDE TOPICAL 0.1% ointment 1 alex applied topically 3 times a day Taking OLOPATADINE NASAL 665 mcg/inh spray 2 spray(s) intranasally 2 times a day Taking Trelegy Ellipta 100-62.5-25 MCG/ACT Aerosol Powder Breath Activated 1 puff Inhalation Once a day Taking Airsupra 90-80 MCG/ACT Aerosol 2 puffs as needed Inhalation Six times a day Taking SIT (TRADITIONAL) variable see record per schedule 9 per schedule Taking hydroCHLOROthiazide 25 MG Tablet 1 tablet in the morning Orally Once a day Taking Avastin 100 MG/4ML Solution as directed Intravenous Taking Ketorolac Tromethamine 10 MG Tablet 1 tablet with food or milk as needed Orally every 6 hrs Taking Vyepti 100 MG/ML Solution as directed Intravenous Taking Nurtec 75 MG Tablet Disintegrating 1 tablet on the tongue and allow to dissolve Orally Taking Lunesta 2 MG Tablet 1 tablet immediately before bedtime Orally Once a day Taking ZyrTEC Allergy 10 MG Tablet 1 tablet Orally Once a day Taking lamoTRIgine 200 MG Tablet 1 tab(s) orally 2 times a day Taking Losartan Potassium 50 MG Tablet 1 tab(s) orally once a day Taking Pantoprazole Sodium 40 MG Tablet Delayed Release 1 tab(s) orally once a day Taking Farxiga 10 MG Tablet 1 tablet Orally Once a day Taking Ondansetron 4 MG Tablet Disintegrating 1 tablet on the tongue and allow to dissolve Orally Once a day Taking traZODone HCl 50 MG Tablet Oral Taking SIT (Cluster) variable - see record variable - see record per schedule subcutaneous per schedule Taking Montelukast Sodium 10 MG Tablet Take 1 tablet by mouth once daily Not-Taking/PRNTopiramate 200 MG CAPSULE, EXTENDED RELEASE 2 CAPS ORALLY ONCE A DAY , Notes to Pharmacist: *Please review and pick correct strength-formulation from [employer] options. If intended option is not shown, discontinue and re-order from Quick Search*Ziprasidone HCl 20 MG Capsule 1 cap(s) orally 2 times a day Linzess 72 MCG Capsule 1 cap(s) orally once a day Sherri Allergy 180 MG Tablet 1 tab(s) orally BID Advair Diskus 250 MCG-50 MCG POWDER INHALE 1 PUFF BY MOUTH TWICE DAILY , Notes to Pharmacist: *Please review and pick correct strength-formulation from [employer] options. If intended option is not shown, discontinue and re-order from Quick Search*Lisinopril 20 MG Tablet 1 tab(s) orally once a day Atorvastatin Calcium 20 MG Tablet 1 tab(s) orally once a day Amoxicillin-Pot Clavulanate 875-125 MG Tablet as directed orally every 12 hours Not-Taking/PRN Topiramate 200 MG CAPSULE, EXTENDED RELEASE 2 CAPS ORALLY ONCE A DAY , Notes to Pharmacist: *Please review and pick correct strength-formulation from [employer] options. If intended option is not shown, discontinue and re-order from Quick Search*Not-Taking/PRN Ziprasidone HCl 20 MG Capsule 1 cap(s) orally 2 times a day Not-Taking/PRN Linzess 72 MCG Capsule 1 cap(s) orally once a day Not-Taking/PRN Sherri Allergy 180 MG Tablet 1 tab(s) orally BID Not-Taking/PRN Advair Diskus 250 MCG-50 MCG POWDER INHALE 1 PUFF BY MOUTH TWICE DAILY , Notes to Pharmacist: *Please review and pick correct strength-formulation from [employer] options. If intended option is not shown, discontinue and re-order from Quick Search*Not-Taking/PRN Lisinopril 20 MG Tablet 1 tab(s) orally once a day Not-Taking/PRN Atorvastatin Calcium 20 MG Tablet 1 tab(s) orally once a day Not-Taking/PRN Amoxicillin-Pot Clavulanate 875-125 MG Tablet as directed orally every 12 hours Objective: * Vitals:?BP:133/87mm Hg, HR:1 06/min, Pulse Oximetry:95%, Ht: 64 in. Assessment: * Assessment: 1.?Allergic rhinitis due to pollen - J30.1 (Primary)???2.?Allergic rhinitis due to animal (cat) (dog) hair and dander - J30.81???3.?Other allergic rhinitis - J30.89???4.?Other chronic allergic conjunctivitis - H10.45??? Plan: * Treatment: * Procedures:?Cluster/Rapid IT Desensitization:?Cluster Visit:?Cluster: 8.?Dose 1?ManoharMemoNivia M 02/12/2024 03:11:12 PM PUMP TENDER >, Please see immunotherapy specialty forms for specifics on dosing of vaccine.?Dose 2?Nivia Villela 02/12/2024 03:42:46 PM PUMP TENDER >, Please see immunotherapy specialty forms for specifics on dosing of vaccine.?Post-procedural Vital Signs:?Nivia Villela Jessie 02/12/2024 04:14:19 PM PUMP TENDER >, Patient was monitored for 30 minutes after last SCIT dose before discharge.? * Procedure Codes:?18355 RAPID DESENSITIZATION * Preventive Medicine:? ??Counseling:?Exercise?Continue activity as usual, Avoid heavy lifting on days of allergy immunotherapy.?Medication instruction:?Watch for side effects of prescribed medications.?Education:?Our staff spent an additional 30 minutes in direct contact with the patient educating them on their current diagnoses and proper treatment and prevention of symptoms and the proper use of medications.?Education 2:?Our staff discussed the appropriate allergen avoidance measures and medication utilization including upper airway hygiene with daily nasal washes given the patient's clinical status and diagnoses.?Previously discussed allergy immunotherapy including the relative risks, benefits and alternatives to this treatment as an adjunctive measure to current therapy, Allergy Immunotherapy: Risks: bleeding, infection, allergic reaction, anaphylaxis = severe allergic reaction that can cause ; Benefits: reduced need for medications, improved symptoms, disease modification. Alternatives: watch/wait, change medication regimen, improve allergy avoidance measures, Our staff discussed the warning signs of anaphylaxis and the indications to use self-injectable epinephrine and seek urgent or emergent care. Able to return demonstration of self-injectable epinephrine. * Follow Up:?1 Week (Reason: E valuation and Management,Cluster/Rapid Desensitization) * Billing Information: * Visit Code:? * Procedure Codes:? 35782 RAPID DESENSITIZATION. * TENDER Sign off status: Completed true * Provider:?Car Angulo MD Date:?02/11 Generated for Nguyễn welch/Kam/Anupam on:?02/24/2024 04:56 PM PUMP TENDER History and Physical Notes * HPI (History of Present Illness) Category Sub-Category Detail Notes Category Not es *Introduction The patient is here for scheduled immunotherapy via cluster desensitization. Please see the attached specialty form regarding the specifics of the administration of these vaccines. As per our protocol, they must undergo a screening health questionnaire (medication changes, reaction(s) to last immunotherapy dose(s), current health status, ACT (if appropriate), self-injectable epinephrine on patient(?) and peak flow (if appropriate)). Also, the patient must wait in our office for 30 minutes after receiving the vaccine(s). Furthermore, every patient must have an epinephrine pen (self-injectable) with them at the time of administration--and carry if for the following 1.5 hours after they leave our office. The patient must also have taken their antihistamine the day of the injection, preferably 2 hours prior. The consent form for SCIT (subcutaneous immunotherapy) is on file.
--- OUTSIDE RECORDS SUMMARY | 2024-02-24 16:56 | XMS_ITS ---
Author Organization [facility] Address [address] [place] [address] Care Team Providers Care Box Loader Name Role Phone Deedee Low Primary Care Provider UnavailJung Boswell Unavailable [phone] Dwight KIM, Noam Unavailable Unavailable Car Angulo Unavailable [phone] REASON FOR VISIT Cluster (Aeroallergen) Encounters Encounter Location Date Provider Diagnosis [facility] [address] [place] [address] 02/20/2024 Car Angulo Plan Of Treatment Next Appt Details Provider Name:Car Angulo , 02/26/2024 08:00:00 AM, [address], [address], Provider Name:Car Angulo , 03/02/2024 12:40:00 PM, [address], [address], [address], Provider Name:Car Angulo , 03/09/2024 08:30:00 AM, [address], [address], [place], [address], Progress Notes * Alannah RUANODOB:[birth year] (43 yo F)Acc No.[id number]:02/20/2024 Generic Cluster 1 hour Patient:?Alannah RUANO Provider:?Car Angulo MD :1980???Age:43 Y???Sex:Female D ate:02/20/2024 Address:[address] [place] [address] [facility] Pcp:Deedee Low Subjective: * Chief Complaints: * ???1. Cluster (Aeroallergen) . * Medical History:? Objective: * Vitals:? Assessment: Plan: * Treatment: * Billing Information: * Visit Code:? * Procedure Codes:? * Electronic signature of Zulma Angulo MD, FAAAAI on 02/24/2024 at 04:55 PM PICKER / PACKER Sign off status: Pending * Provider:?Car Angulo MD Date:?02/19 Generated for Nguyễn welch/Kam/eTransmitting on:?02/24/2024 04:55 PM PICKER / PACKER
--- OUTSIDE RECORDS SUMMARY | 2024-02-24 16:56 | XMS_ITS | Data Portability ---
Author Organization [facility] Address [address] [place] [address] Assessment Encounter Date Assessment Date Assessment LastModified by Organization Details LastModified Time 08/16/2020 08/16/2020 Annual gynecological exam performed. Patient will come back in a year unless there are new symptoms. Not available 08/16/2020 09:45:23 09/28/2022 09/28/2022 Annual gynecological exam performed. Patient will come back in a year unless there are new symptoms. Not available 09/28/2022 16:10:58 10/03/2023 10/03/2023 Annual gynecological exam performed. Patient will come back in a year unless there are new symptoms. [email or web address] Not available 10/03/2023 09:39:05 Plan of Treatment Reminders Order Date Submit Date Provider Last Modified By Organization Details Last Modified Time Details Appointments None record ed. Lab None record ed. Referral None record ed. Procedures None record ed. Surgeries None record ed. Imaging None record ed. Medication Orders None record ed. Patient TargetsNo targets recorded. Patient InstructionsNo instructions recorded. Reason for Referral None Reported. Results Created Date Observation Date Name Description Value Unit Range Abnormal Flag Note LastModifiedBy Organization Detail LastModifiedTime 08/17/1908/16/2020 pap, IG + HR HPV image guided Pap, HPV regardless of Pap result SEE RESULT S BELOW CASE REPOR T: Cytol ogy Gynec ologi garima Repor t Case: [id number] Autho kassandra g Provi haily: Agnes Nascimento MD Colle cted: 06/08 /2021 1041 Order ing Locat ion: [place] Patho loggabino Recei prince: 08/16 2358 First Scree n: Sheri fontanez, [place] , [place] Speci men: Scree irish Pap - Image d, Cervi x STATE MENT OF ADEQU ACY: Satis facto ry for evalu ation Trans forma tion zone compo nent prese nt FINAL DIAGN OSIS: Negat chris for Intra epith elial Lesio n or Silverig kendall Elect yahirshaw mickey daljit d by Sheri fontanez, [place] , [place] on 021 at 2:37 PM ----- ----- ----- ----- ----- ----- ----- ----- ----- ----- ----- ----- ----- ----- ----- ----- ----- ---- HPV RESUL TS: HPV mRNA E6/E7 : No HPV mRNA Detec erika NOTE: This high risk HPV mRNA assay detec ts fourt een high- risk HPV types (16, 18, 31, 33, 35, 39, 45, 51, 52, 56, 58, 59, 66, 68) witho ut diffe renti ation . CHART ABLE COMME NT: Note: This speci men was revie wed by a Cytot echno logis t and/o r Patho logis t (as indic ated in this repor t) after evalu ation using the Thinp rep Imagi ng Syste m. CLINI GARIMA INFOR MATIO N: Menst rual Statu s: LMP (if appli cable ): 017 Clini garima Histo ry/Pr eviou s Pap: Type of Neopl kendell (if appli cable ): Other Histo ry: Hormo ryder (if appli cable ): PAP EDUCA DAVID L NOTE: The Pap Test is a scree irish test with an inher ent false negat chris rate. Liqui d-bas e sampl ing may decre ase, but will not elimi analia, false negat chris resul ts. A negat chris resul t does not precl ude the prese nce and/o r devel opmen t of disea se, since the prese nce of abnor mal cells in the sampl e depen ds on the locat ion of the lesio n and sampl ing techn ique. Gurmeet nued regul ar scree irish is the best metho d of cance r preve ntion . If repor erika cytol ogic findi ng do not corre late with physi garima and/o r histo rical findi ngs, furth er inves tigat ion is recom kaiser d, as clini kyle bui nted. Not Available [facility] (Lab) [address], [place], [address], 08/17/2020 16:09:43 09/29/19 23 09/28/2022 IMAGE GUIDE D PAP AND HPV REGAR DLESS image guided Pap, HPV regardless of Pap result SEE RESULT S BELOW CASE REPOR T: Cytol ogy Gynec ologi garima Repor t Case: [id number] Autho kassandra jackson Provi haily: Agnes Nascimento MD Colle cted: 09/28 1610 Order ing Locat ion: [place] Patho logy Recei prince: 09/29 0122 First Scree n: Cira Loya, [place] Rescr een: Gustavo ontiveros, [place], [place] Speci men: Scree irish Pap - Image d, Cervi x STATE MENT OF ADEQU ACY: Satis facto ry for evalu ation Trans forma tion zone compo nent absen t The absen ce of an endoc ervic al compo nent was confi rmed by an addit ional scree ner. FINAL DIAGN OSIS: Negat chris for Intra epith elial Lesio n or Leonie argeuta (NIL) . Elect concetta arevalo daljit d by Gustavo ontiveros, [place], [place] on 2022 at 4:14 PM ----- ----- ----- ----- ----- ----- ----- ----- ----- ----- ----- ----- ----- ----- ----- ----- ----- ---- HPV RESUL TS: HPV mRNA E6/E7 : No HPV mRNA Detec erika NOTE: This high risk HPV mRNA assay detec ts fourt een high- risk HPV types (16, 18, 31, 33, 35, 39, 45, 51, 52, 56, 58, 59, 66, 68) witho ut diffe renti ation . COMME NT: This speci men was revie wed by a Cytot echno logis t and/o r Patho logis t (as indic ated in this repor t) after evalu ation using the Thinp rep Imagi ng Syste m. CLINI GARIMA INFOR MATIO N: Menst rual Statu s: LMP (if appli cable ): Clini garima Histo ry/Pr eviou s Pap: Type of Neopl kendell (if appli cable ): Signi fican t Clini garima Findi ngs: Other Histo ry: Hormo ryder (if appli cable ): PAP EDUCA DAVID L NOTE: The Pap Test is a scree irish test with an inher ent false negat chris rate. Liqui d-bas ed sampl ing may decre ase, but will not elimi analia, false negat chris resul ts. A negat chris resul t does not precl ude the prese nce and/o r devel opmen t of disea se, since the prese nce of abnor mal cells in the sampl e depen ds on the locat ion of the lesio n and sampl ing techn ique. Gurmeet nued regul ar scree irish is the best metho d of cance r preve ntion . If repor erika cytol ogic findi ng do not corre late with physi garima and/o r histo rical findi ngs, furth er inves tigat ion is recom kaiser d, as clini kyle bui nted. Not Available [facility] (Lab) [address], [place], [address], 10/01/2022 17:18:55 10/03/1910/03/2023 IMAGE GUIDE D PAP AND HPV REGAR DLESS image guided Pap, HPV regardless of Pap result SEE RESULT S BELOW CASE REPOR T: Cytol ogy Gynec ologi garima Repor t Case: [id number] Autho kassandra jackson Provi haily: Agnes Nascimento MD Colle cted: 10/02 1106 Order ing Locat ion: [place] Patho loggabino Recei prince: 10/03 0254 First Scree n: Cira Loay ay, [place] Rescr een: Veronica David ret, [place] Speci men: Scree irish Pap - Image d, Cervi x STATE MENT OF ADEQU ACY: Satis facto ry for evalu ation Trans forma tion zone compo nent absen t The absen ce of an endoc ervic al compo nent was confi rmed by an addit ional scree ner. ----- ----- ----- ----- ----- ----- ----- ----- ----- ----- ----- ----- ----- ----- ----- ----- ----- ---- FINAL DIAGN OSIS: Negat chris for Intra epith elial Silverio james or Leonie argueta (NIL) . Elect concetta bocanegra d by Veronica David ret, [place] on 024 at 10:49 AM ----- ----- ----- ----- ----- ----- ----- ----- ----- ----- ----- ----- ----- ----- ----- ----- ----- ---- HPV RESUL TS: HPV mRNA E6/E7 : No HPV mRNA Detec erika NOTE: This high risk HPV mRNA assay detec ts fourt een high- risk HPV types (16, 18, 31, 33, 35, 39, 45, 51, 52, 56, 58, 59, 66, 68) witho ut diffe renti ation . COMME NT: This speci men was revie wed by a Cytot echno logis t and/o r Patho logis t (as indic ated in this repor t) after evalu ation using the Thinp rep Imagi ng Syste m. CLINI GARIMA INFOR MATIO N: Menst rual Statu s: LMP (if appli cable ): Clini garima Histo ry/Pr eviou s Pap: Type of Neopl kendell (if appli cable ): Signi fican t Clini garima Findi ngs: Other Histo ry: Hormo ryder (if appli cable ): PAP EDUCA DAVID L NOTE: The Pap Test is a scree irish test with an inher ent false negat chris rate. Liqui d-bas ed sampl ing may decre ase, but will not elimi analia, false negat chris resul ts. A negat chris resul t does not precl ude the prese nce and/o r devel opmen t of disea se, since the prese nce of abnor mal cells in the sampl e depen ds on the locat ion of the lesio n and sampl ing techn ique. Gurmeet nued regul ar scree irish is the best metho d of cance r preve ntion . If repor erika cytol ogic findi ng do not corre late with physi garima and/o r histo rical findi ngs, furth er inves tigat ion is recom kaiser d, as clini kyle bui nted. Not Available [facility] (Lab) [address], [place], [address], 10/10/2023 11:54:46 Result Notes None recorded. Problems Name Problem SNOMED Code Status Onset Date Resolution Date Notes Provider Name and Address Organization Details Recorded Time Asthma 233538357 Completed 201908/16/2020 [facility] 09:46:39 Type 1 diabetes mellitus 90432787 Active 2019 Regi bedoya [facility] 0 12:01:15 Hypercho lesterol emia 37851039 Completed 201908/16/2020 Darlin bedoya [facility] 1 09:46:52 Hyperten sive disorder 91071912 Active 2019 Regitrudi Kaur [facility], [facility] 0 12:08:57 Mental disorder 46921465 [facility] 2019 [facility] 0 12:09:25 Abscess of vulva [id number] Completed 201908/16/2020 Abscess of vulva;Re corded Elsewher e: No Locat ion: [facility] S ource: EHR Bioinformatics Programmer jayna: N Willie ce ID: 0001 Cristopher lable Time: 03:15:00 PM Darlinisaura Schmitt [facility] 1 09:46:[address] Concept Completed 201508/16/2020 Encntr for general adult medical exam w/o abnormal findings ;Recorde d Elsewher e: No Locat ion: [facility] S ource: EHR Bioinformatics Programmer jayna: N Willie ce ID: 0001 Cristopher lable Time: 03:30:00 PM Darlinisaura Schmitt [facility] 1 09:47:05 Clinical finding Completed 201608/16/2020 Presence of (intraut erine) contrace ptive device;R ecorded Elsewher e: No Locat ion: [facility] S ource: EHR Bioinformatics Programmer jayna: N Wolfti ce ID: 0001 Cristopher lable Time: 12:45:00 PM Darlinisaura Schmitt [facility] 1 09:46:44 Pregnanc y test negative [id number] Completed 201608/16/2020 Encounte r for pregnanc y test, result negative ;Recorde d Elsewher e: No Locat ion: [facility] S ource: EHR Bioinformatics Programmer jayna: N Wolfti ce ID: 0001 Cristopher lable Time: 12:45:00 PM Darlin bedoya [facility] 1 09:47:[address] Concept Completed 201508/16/2020 Encntr for board catcher exam (general ) (routine ) w/o abn findings ;Recorde d Elsewher e: No Locat ion: [facility] S ource: EHR Bioinformatics Programmer jayna: N Practi ce ID: 0001 Cristopher lable Time: 03:30:00 PM Darlin bedoya [facility] 1 09:47:07 Insertio n of intraute rine contrace ptive device Completed 201608/16/2020 Encounte r for insertio n of intraute rine contrace ptive device;R ecorded Elsewher e: No Locat ion: [facility] S ource: EHR Bioinformatics Programmer jayna: N Practi ce ID: 0001 Cristopher lable Time: 12:45:00 PM Darlin Schmitt [facility] 1 09:46:58 Syphilis test finding [id number] Active 2016 Encntr screen for infectio ns w sexl mode of transmis s;Record ed Elsewher e: No Locat ion: [facility] S ource: EHR Bioinformatics Programmer jayna: N Wolfti ce ID: 0001 Cristopher lable Time: 10:00:00 AM Not Available [facility] 0 14:28:21 Acute vaginiti s 20971377 Completed 201608/16/2020 Vaginiti s;Record ed Elsewher e: No Locat ion: [facility] S ource: EHR Bioinformatics Programmer jayna: N Practi ce ID: 0001 Cristopher lable Time: 10:00:00 AM Darlin bedoya [facility] 1 09:46:38 Educatio n Completed 201508/16/2020 Encounte r for other general counseli ng and advice on contrace ption;Re corded Elsewher e: No Locat ion: [facility] S ource: EHR Bioinformatics Programmer jayna: N Practi ce ID: 0001 Cristopher lable Time: 03:30:00 PM Darlin bedoya [facility] 09:46:50 Contrace ptive sheath status [id number] Completed 201608/16/2020 IUD follow up;Recor ded Elsewher e: No Locat ion: [facility] S ource: EHR Bioinformatics Programmer jayna: N Practi ce ID: 0001 Cristopher lable Time: 04:30:00 PM Darlin Schmitt [facility] 09:46:47 Infectio n screenin g Completed 201608/16/2020 Encounte r for screenin g for oth infec/pa rastc diseases ;Recorde d Elsewher e: No Locat ion: [facility] S ource: EHR Bioinformatics Programmer jayna: N Practi ce ID: 0001 Cristopher lable Time: 10:00:00 AM Darlin bedoya [facility] 1 09:46:56 Wound dehiscen ce Completed 201908/16/2020 Disrupti on of wound, unspecif ied, initial encounte r;Record ed Elsewher e: No Locat ion: [facility] S ource: EHR Bioinformatics Programmer jyana: N Practi ce ID: 0001 Cristopher lable Time: 05:00:00 PM Darlin bedoya [facility] 09:46:41 Abscess of buttock [id number] Completed 201908/16/2020 Cutaneou s abscess of buttock; Practice ID: 0001 Darlin Schmitt [facility] 09:46:33 Nausea and vomiting [id number] Completed 201908/16/2020 Nausea with vomiting , unspecif ied;Prac junie ID: 0001 Darlin Schmitt [facility] 1 09:47:01 Problem Notes None recorded. Procedures Surgical History Date Name Laterality Status Provider Name and Address Organization Details Recorded Time 3 Date of Last Colonoscopy completed [facility] 10/03/2023 09:43:32 3 Date of Last Pap Smear completed [facility] 10/03/2023 09:44:05 Unlisted px accessory sinus completed [facility] 06/18/2019 12:25:51 tonsilectomy/ad enoids completed [facility] 06/18/2019 12:25:57 repair of ulnar digital nerve completed [facility] 06/18/2019 12:25:44 Bariatric Surgery completed Darlin Schmitt [facility] 09/28/2022 16:12:11 Imaging Results None recorded. Procedure Notes None recorded. Medical Equipment None Reported. Allergies No known drug allergies Medications Name Sig Start Date Stop Date Status Note LastModified by Organization Details LastModified Time losartan 50 mg tablet TAKE 1 TABLET BY MOUTH ONCE DAILY active Not Available Not Available No t Available amoxicill in 500 mg capsule TAKE 1 CAPSULE BY MOUTH THREE TIMES A DAY UNTIL GONE 09/28 completed Not Available Not Available Not Available atorvasta tin 40 mg tablet TAKE 1 TABLET BY MOUTH ONCE DAILY WITH DINNER active Not Available Not Available No t Available rabeprazo le 20 mg tablet,de layed release TAKE 1 TABLET BY MOUTH TWICE DAILY active Not Available Not Available No t Available doxycycli ne hyclate 100 mg capsule TAKE 1 CAPSULE BY MOUTH ONCE DAILY active Not Available Not Available No t Available cefuroxim e axetil 250 mg tablet 09/28 completed Not Available Not Available Not Available atorvasta tin 20 mg tablet TAKE 1 TABLET BY MOUTH EVERY DAY IN THE EVENING 10/01 completed Not Available Not Available Not Available lamotrigi ne 200 mg tablet TAKE 1 TABLET BY MOUTH EVERY DAY 10/01 completed Not Available Not Available Not Available clindamyc in HCl 300 mg capsule 09/28 completed Not Available Not Available Not Available albuterol sulfate 2.5 mg/3 mL (0.083 %) solution for nebulizat ion USE 1 VIAL IN NEBULIZE R EVERY 6 HOURS NEEDED 10/02 completed Not Available Not Available Not Available trazodone 50 mg tablet TAKE 1 TO 2 TABLETS BY MOUTH ONCE DAILY AT NIGHT active Not Available Not Available No t Available azithromy estelle 250 mg tablet TAKE 2 TABLETS BY MOUTH ON DAY 1, AND THEN TAKE 1 TABLET BY MOUTH ONCE A DAY ON DAY 2 THROUGH DAY 5 09/28 completed Not Available Not Available Not Available fluconazo le 150 mg tablet take 1 tablet by oral route once every other day x 3 09/28 completed Not Available Not Available Not Available benzonata te 200 mg capsule TAKE 1 CAPSULE BY MOUTH THREE TIMES DAILY NEEDED FOR COUGH active Not Available Not Available No t Available Lotrisone 1 %-0.05 % topical cream apply by topical route 2 times every day for 2 weeks to the affected and surround ing areas of skin in the morning and evening 01/11 completed Prescrib ed Elsewher e: No [facility] od[facility] By: [email or web address] Encounte r DateTime : 12/30/19 03:15:00 PM Not Available Not Available Not Available hydrocodo ne 5 mg-acetam inophen 325 mg tablet take 1-2 tablet by oral route every 6 hours as needed for pain 09/28 completed Not Available Not Available Not Available promethaz ine 6.25 mg/5 mL oral syrup 10/01 completed Not Available Not Available Not Available lisinopri l 20 mg tablet TAKE 1 TABLET BY MOUTH EVERY DAY 10/01 completed Not Available Not Available Not Available clonazepa m 0.5 mg tablet TAKE 1 TABLET BY MOUTH TWICE DAILY 09/28 completed Not Available Not Available Not Available rizatript an 10 mg tablet take 1 tablet by oral route once, may repeat at 2 hour interval s; do not exceed 30 mg in 24 hours active Not Available Not Available No t Available propranol ol ER 60 mg capsule,2 4 hr,extend ed release take 2 capsule by oral route every day 10/01 completed Prescrib ed Elsewher e: Yes Loca tion: Dionte barnett [facility] odify By: eden Oliver r DateTime : 12/17/19 04:45:00 PM Not Available Not Available Not Available sertralin e 100 mg tablet TAKE 1 TABLET BY MOUTH EVERYDAY AT BEDTIME active Not Available Not Available No t Available clonazepa m 1 mg tablet take 1 tablet by oral route 3 times every day 09/28 completed Prescrib ed Elsewher e: Yes Loca tion: Dionte [facility] odify By: savi Oliver r DateTime : 12/07/19 16 03:30:00 PM Not Available Not Available Not Available methylpre dnisolone 4 mg tablet TAKE 1 TABLET BY MOUTH ONCE DAILY FOR 7 DAYS active Not Available Not Available No t Available clindamyc in HCl 150 mg capsule 09/28 completed Not Available Not Available Not Available Wellbutri n SR 150 mg tablet, 12 hr sustained -release active Not Available Not Available Not Available metronida zole 500 mg tablet TAKE 1 TABLET BY MOUTH TWICE A DAY UNTIL FINISHED active Not Available Not Available No t Available phentermi ne 37.5 mg tablet TAKE 1 TABLET BY MOUTH ONCE DAILY BEFORE BREAKFAS T active Not Available Not Available No t Available sulfameth oxazole 800 mg-trimet hoprim 160 mg tablet Take 1 tablet every 72 hours by oral route. active Not Available Not Available No t Available peg-elect rolyte solution 420 gram oral solution FOLLOW THE INSTRUCT IONS FROM DR. ROBLEDO OFFICE. DO NOT FOLLOW THE INSTRUCT IONS ON BOTTLE. active Not Available Not Available No t Available triamcino lone acetonide 0.1 % topical cream 10/02 completed Not Available Not Available Not Available glimepiri de 2 mg tablet 09/28 completed Not Available Not Available Not Available glimepiri de 1 mg tablet take 1 tablet by oral route every day 09/28 completed Prescrib ed Elsewher e: Yes Loca tion: Dionte [facility] odify By: eden Oliver r DateTime : 12/17/19 04:45:00 PM Not Available Not Available Not Available lamotrigi ne 25 mg tablet TAKE 1 TAB DAILY FOR 2 WEEKS, THEN 2 TABLETS DAILY FOR 2 WEEKS, THEN 4 TABLETS DAILY 10/01 completed Not Available Not Available Not Available ketorolac 10 mg tablet active Not Available Not Available Not Available ketorolac 0.5 % eye drops INSTILL 1 DROP INTO EACH EYE 4 TIMES DAILY active Not Available Not Available No t Available carbamaze pine 200 mg tablet TAKE 1/2 (ONE-MISSY F) TABLET BY MOUTH THREE TIMES DAILY active Not Available Not Available No t Available Zofran 4 mg tablet Take 1 tablet every day by oral route. 2019 active Not Available Not Available Not Avai lable oxycodone -acetamin ophen 5 mg-325 mg tablet take 1 tablet by oral route every 6 hours as needed active Not Available Not Available No t Available bupropion HCl 100 mg tablet TAKE 1 TABLET BY MOUTH TWICE DAILY active Not Available Not Available No t Available ofloxacin 0.3 % ear drops INSTILL 5 DROPS INTO RIGHT EAR TWICE DAILY FOR 7 DAYS active Not Available Not Available No t Available ziprasido ne 20 mg capsule TAKE 1 CAPSULE BY MOUTH TWICE A DAY active Not Available Not Available No t Available famotidin e 20 mg tablet TAKE 1 TABLET BY MOUTH TWICE A DAY 09/28 completed Not Available Not Available Not Available lorazepam 0.5 mg tablet TAKE 1 2 TABLETS BY MOUTH EVERY DAY NEEDED FOR PANIC ATTACKS 10/01 completed Not Available Not Available Not Available Humalog U-100 Insulin 100 unit/mL subcutane ous solution INJECT UP TO 100 UNITS DAILY VIA INSULIN PUMP active Not Available Not Available No t Available OneTouch Ultra Test strips USE DIRECTED THREE TIMES DAILY active Not Available Not Available No t Available dexametha sone 1 mg tablet TAKE 1 TABLET BY MOUTH WHEN DIRECTED 09/28 completed Not Available Not Available Not Available cephalexi n 500 mg capsule active Not Available Not Available Not Available pantopraz ole 40 mg tablet,de layed release TAKE 1 TABLET BY MOUTH ONCE DAILY active Not Available Not Available No t Available hyoscyami ne sulfate 0.125 mg tablet TAKE 1 TABLET BY MOUTH FOUR TIMES A DAY active Not Available Not Available No t Available triamcino lone acetonide 0.1 % topical ointment APPLY OINTMENT TOPICALL Y TO THE AFFECTED AREA(S) THREE TIMES DAILY active Not Available Not Available No t Available lisinopri l 10 mg tablet take 1 tablet by oral route every day 10/01 completed Prescrib ed Elsewher e: Yes Loca tion: Dionte barnett [facility] M odify By: savi mehta DateTime : 12/07/19 16 03:30:00 PM Not Available Not Available Not Available prednison e 50 mg tablet TAKE 1 TABLET BY MOUTH ONCE DAILY FOR 5 DAYS 10/02 completed Not Available Not Available Not Available carbamaze pine 100 mg chewable tablet CHEW AND SWALLOW 1 TABLET BY MOUTH THREE TIMES DAILY active Not Available Not Available No t Available promethaz ine 25 mg tablet TAKE 1 TABLET BY MOUTH EVERY 6 HOURS NEEDED active Not Available Not Available No t Available Advair Diskus 250 mcg-50 mcg/dose powder for inhalatio n INHALE 1 DOSE BY MOUTH TWICE DAILY active Not Available Not Available No t Available hydrochlo rothiazid e 12.5 mg capsule TAKE 1 CAPSULE BY MOUTH ONCE DAILY active Not Available Not Available No t Available monteluka st 10 mg tablet TAKE 1 TABLET BY MOUTH ONCE DAILY active Not Available Not Available No t Available hydroxyzi ne HCl 25 mg tablet 09/28 completed Not Available Not Available Not Available codeine 10 mg-guaife nesin 100 mg/5 mL oral liquid TAKE 10 ML BY MOUTH EVERY 4 HOURS NEEDED 09/28 completed Not Available Not Available Not Available topiramat e 200 mg tablet TAKE 1 TABLET BY MOUTH TWICE DAILY active Not Available Not Available No t Available mupirocin 2 % topical ointment APPLY TOPICALL Y TO THE AFFECTED AREA THREE TIMES DAILY active Not Available Not Available No t Available THSC Propranol ol HCl 20 mg tablet 10/01 completed Not Available Not Available Not Available ergocalci ferol (vitamin D2) 1,250 mcg (50,000 unit) capsule TAKE 1 CAPSULE BY MOUTH ONCE A WEEK active Not Available Not Available No t Available Novolog U-100 Insulin aspart 100 unit/mL subcutane ous solution USE UP TO 160 UNITS DAILY USING INSULIN PUMP active Not Available Not Available No t Available lorazepam 1 mg tablet TAKE 1 TABLET FOUR TIMES A DAY NEEDED 10/01 completed Not Available Not Available Not Available ibuprofen 600 mg tablet TAKE 1 TABLET BY MOUTH FOUR TIMES A DAY NEEDED active Not Available Not Available No t Available hydrocodo ne 10 mg-chlorp heniramin e 8 mg/5 mL oral susp extend.re l 12hr TAKE 5 ML BY MOUTH EVERY 12 HOURS 07/21 /2023 completed Not Available Not Available Not Available albuterol sulfate HFA 90 mcg/actua tion aerosol inhaler INHALE 2 PUFFS BY MOUTH FOUR TIMES DAILY NEEDED 10/02 completed Not Available Not Available Not Available propranol ol 20 mg tablet TAKE 1 TABLET BY MOUTH TWICE DAILY active Not Available Not Available No t Available Zoloft 25 mg tablet take 1 tablet by oral route every day 2015 active Prescrib ed Elsewher e: Yes Loca tion: Sandradeborah ericka [facility] odify By: savi Oliver r DateTime : 12/07/19 16 03:30:00 PM Not Available Not Available Not Available ondansetr on 4 mg disintegr ating tablet active Not Available Not Available Not Available losartan 100 mg tablet TAKE 1 TABLET BY MOUTH ONCE DAILY active Not Available Not Available No t Available doxycycli ne hyclate 100 mg tablet TAKE 1 TABLET BY MOUTH ONCE DAILY 09/28 completed Not Available Not Available Not Available lamotrigi ne 100 mg tablet TAKE 1 TABLET BY MOUTH IN THE MORNING AND 2 NIGHTLY active Not Available Not Available No t Available Ketostix strips active Not Available Not Available Not Available risperido ne 0.5 mg tablet TAKE 1 TABLET TWICE A DAY (OR MAY TAKE AT NIGHT) active Not Available Not Available No t Available Microlet Lancet active Not Available Not Available Not Available diazepam 5 mg tablet TAKE 1 TABLET BY MOUTH THREE TIMES DAILY NEEDED active Not Available Not Available No t Available metoclopr amide 10 mg tablet active Not Available Not Available No t Available amoxicill in 500 mg-potass ium clavulana te 125 mg tablet 09/28 completed Not Available Not Available Not Available oxycodone 5 mg tablet active Not Available Not Available Not Available albuterol sulfate ER 4 mg tablet,ex tended release,1 2 hr take 1 tablet by oral route every 12 hours 09/28 completed Prescrib ed Elsewher e: Yes Loca tion: Dionte barnett [facility] odify By: savi mehta DateTime : 12/07/19 16 03:30:00 PM Not Available Not Available Not Available Vitamin D3 25 mcg (1,000 unit) capsule 2015 active Prescrib ed Elsewher e: Yes Loca tion: Dionte [facility] odify By: emernst Encounte r DateTime : 12/07/19 16 03:30:00 PM Not Available Not Available Not Available monteluka st 4 mg oral granules in packet 10/01 completed Prescrib ed Elsewher e: Yes [facility] By: eden Oliver r DateTime : 12/17/19 19 04:45:00 PM Not Available Not Available Not Available Novolog FlexPen U-100 Insulin aspart 100 unit/mL (3 mL) subcutane ous INJECT UP TO 44 UNITS 3 TIMES A DAY BEFORE MEALS active Not Available Not Available No t Available ketorolac 0.4 % eye drops INSTILL 1 DROP INTO EACH EYE 4 TIMES DAILY active Not Available Not Available No t Available bupropion HCl XL 150 mg 24 hr tablet, extended release TAKE 1 TABLET DAILY FOR 7 DAYS, THEN 2 TABLETS DAILY 09/28 completed Not Available Not Available Not Available hydrocodo ne 10 mg-acetam inophen 300 mg tablet Take 1 tablet every 6 hours by oral route. 09/28 completed Not Available Not Available Not Available eszopiclo ne 3 mg tablet TAKE 1 TABLET BY MOUTH ONCE DAILY AT BEDTIME active Not Available Not Available No t Available eszopiclo ne 2 mg tablet TAKE 1 TABLET BY MOUTH EVERY NIGHT AT BEDTIME 09/28 completed Not Available Not Available Not Available carbamaze pine ER 100 mg capsule,e xtended release [id number] r take 1 capsule by oral route every 12 hours 09/28 completed Prescrib ed Elsewher e: Yes Loca tion: Dionte [facility] M odify By: eden Oliver r DateTime : 12/17/19 04:45:00 PM Not Available Not Available Not Available fenofibra te 160 mg tablet 09/28 completed Not Available Not Available Not Available Zoloft 10/02 completed Not Available Not Available Not Available carbamaze pine 09/28 completed Not Available Not Available Not Available propranol ol 10/01 completed Not Available Not Available Not Available monteluka st 10/01 completed Not Available Not Available Not Available lisinopri l 10/01 completed Not Available Not Available Not Available rizatript an active Not Available Not Available Not Available Botox active Not Available Not Availa ble Not Available Vitamin D3 10/01 completed Not Available Not Available Not Available glimepiri de 09/28 completed Not Available Not Available Not Available clonazepa m 09/28 completed Not Available Not Available Not Available Avastin 10/02 completed Not Available Not Available Not Available fenofibra te 09/28 completed Not Available Not Available Not Available fenofibra te 50 mg capsule take 1 capsule by oral route every day with a meal 09/28 completed Prescrib ed Elsewher e: Yes Loca tion: [facility] odify By: savi Oliver r DateTime : 12/07/19 16 03:30:00 PM Not Available Not Available Not Available lubiprost one 8 mcg capsule TAKE 1 CAPSULE BY MOUTH TWICE DAILY WITH MEALS active Not Available Not Available No t Available olopatadi ne 0.6 % nasal spray SPRAY 2 SPRAY(S) IN EACH NOSTRIL TWICE DAILY active Not Available Not Available No t Available asenapine 5 mg sublingua l tablet PLACE 1 TABLET UNDER THE TONGUE EACH MORNING AND 2 TABLETS EACH NIGHT 09/28 completed Not Available Not Available Not Available BD Ultra-Fin e Florina Pen Needle 32 gauge x 5/32 USE DIRECTED UP TO 7 TIMES DAILY active Not Available Not Available No t Available Sherri Allergy 60 mg tablet take 1 tablet by oral route 2 times every day 09/28 completed Prescrib ed Elsewher e: Yes Loca tion: [facility] odify By: savi Oliver r DateTime : 12/07/19 16 03:30:00 PM Not Available Not Available Not Available Sherri Allergy 09/28 completed Not Available Not Available Not Available Auvi-Q 0.3 mg/0.3 mL injection , auto-inje ctor ADMINIST ER 0.3 MG IN THE MUSCLE 1 TIME 10/02 completed Not Available Not Available Not Available Farxiga 10 mg tablet TAKE 1 TABLET BY MOUTH ONCE DAILY active Not Available Not Available No t Available Levemir FlexTouch U-100 Insulin 100 unit/mL (3 mL) subcutane ous pen INJECT 50 UNITS UNDER THE SKIN NIGHTLY active Not Available Not Available No t Available Jardiance 25 mg tablet TAKE 1 TABLET BY MOUTH ONCE DAILY active Not Available Not Available No t Available Invokamet 150 mg-1,000 mg tablet take 1 tablet by oral route 2 times every day with meals active Prescrib ed Elsewher e: Yes Loca tion: Dionte barnett [facility] odify By: eden Oliver r DateTime : 12/17/19 19 04:45:00 PM Not Available Not Available Not Available Invokamet active Not Available Not Bhumi ilable Not Available Xigduo XR 10 mg-1,000 mg tablet,ex tended release take 1 tablet by oral route every day in the morning with food 12/16 completed Prescrib ed Elsewher e: Yes Loca tion: Dionte barnett [facility] odify By: eden Oliver r DateTime : 12/07/19 16 03:30:00 PM Not Available Not Available Not Available Soolantra 1 % topical cream APPLY A PEA SIZED AMOUNT TO RED AREAS ON THE FACE EVERY NIGHT AT BEDTIME active Not Available Not Available No t Available Christoph Bryant U-300 Insulin 300 unit/mL (1.5 mL) subcutane ous pen inject by subcutan eous route as per insulin protocol 12/16 completed Prescrib ed Elsewher e: Yes Loca tion: [facility] odify By: eden Oliver r DateTime : 12/07/19 16 03:30:00 PM Not Available Not Available Not Available Linzess 72 mcg capsule TAKE 1 CAPSULE BY MOUTH ONCE DAILY active Not Available Not Available No t Available Rhofade 1 % topical cream active Not Available Not Available Not Available Ozempic 0.25 mg or 0.5 mg (2 mg/1.5 mL) subcutane ous pen injector INJECT 1/2 (ONE-MISSY F) MG SUBCUTAN EOUSLY ONCE A WEEK active Not Available Not Available No t Available Dexcom G6 Sensor device REPLACE SENSOR DIRECTED EVERY 10 DAYS active Not Available Not Available No t Available Dexcom G6 Transmitt er device CHANGE EVERY 3 MONTHS DIRECTED active Not Available Not Available No t Available Dexcom G6 Sensor active Not Available Not Available Not Available Omnipod Dash Pods (Gen 4) subcutane ous cartridge CHANGE EVERY 3 DAYS 10/02 completed Not Available Not Available Not Available Omnipod Dash Pods (Gen 4) 10/02 completed Not Available Not Available Not Available Motegrity 2 mg tablet TAKE 1 TABLET BY MOUTH ONCE DAILY active Not Available Not Available No t Available OneTouch Ultra2 Meter USE DIRECTED active Not Available Not Available No t Available OneTouch Delica Plus Lancet 33 gauge TEST THREE TIMES DAILY active Not Available Not Available No t Available Baqsimi 3 mg/actuat ion nasal spray USE 1 SPRAY INTO ONE NOSTRIL ONCE DIRECTED FOR LOW BLOOD SUGAR 09/28 completed Not Available Not Available Not Available albuterol sulf 90 mcg/actua tion breath activated powder inhaler,s ensor Inhale 2 puffs every 4 hours by inhalati on route. 10/02 completed Not Available Not Available Not Available Amzeeq 4 % topical foam active Not Available Not Available Not Available Ubrelvy 100 mg tablet TAKE 1 TABLET BY MOUTH TWICE DAILY . DO NOT EXCEED 2 EVERY 24 HOURS . active Not Available Not Available No t Available Nurtec ODT 75 mg disintegr ating tablet DISSOLVE 1 TABLET BY MOUTH ONCE DAILY NEEDED. MAX OF 1 TABELT IN 24 HOURS. active Not Available Not Available No t Available Vyepti 2023 active Not Available Not Available Not Avai lable FreeStyle Sofie 2 Sensor kit APPLY ONE NEW SENSOR EVERY 14 DAYS active Not Available Not Available No t Available FreeStyle Sofie 2 [place] USE TO SCAN BLOOD SUGAR 4 TIMES DAILY active Not Available Not Available No t Available Ozempic 1 mg/dose (4 mg/3 mL) subcutane ous pen injector INJECT 1 MG UNDER THE SKIN EVERY 7 DAYS 10/02 completed Not Available Not Available Not Available Qulipta 60 mg tablet TAKE 1 TABLET BY MOUTH ONCE DAILY active Not Available Not Available No t Available Paxlovid 300 mg (150 mg x 2)-100 mg tablets in a dose pack TAKE 3 TABLETS TOGETHER (TWO 150 MG NIRMATRE LVIR TABLETS AND ONE 100 MG RITONAVI R TABLET) BY MOUTH TWICE DAILY FOR 5 DAYS. active Not Available Not Available No t Available Ozempic 2 mg/dose (8 mg/3 mL) subcutane ous pen injector INJECT 2 MG UNDER THE SKIN EVERY 7 DAYS 10/02 completed Not Available Not Available Not Available Omnipod 5 G6 Pods (Gen 5) subcutane ous cartridge CHANGE POD EVERY 3 DAYS active Not Available Not Available No t Available Omnipod 5 G6 Intro Kit (Gen 5) subcutane ous cartridge with controlle r CHANGE POD EVERY 3 DAYS active Not Available Not Available No t Available Mounjaro 5 mg/0.5 mL subcutane ous pen injector INJECT 5 MG SUBCUTAN EOUSLY ONCE A WEEK active Not Available Not Available No t Available Mounjaro 2.5 mg/0.5 mL subcutane ous pen injector INJECT 2 & 1/2 (TWO & ONE-HALF ) MG SUBCUTAN EOUSLY ONCE A WEEK active Not Available Not Available No t Available Ozempic 0.25 mg or 0.5 mg (2 mg/3 mL) subcutane ous pen injector active Not Available Not Available Not Available Vitals Date Recorded Body height Body mass index (BMI) Body weight Systolic blood pressure Diastolic blood pressure Provider Name and Address Organization Details Last Updated DateTime 08/16/2020 162.56 cm 46.2 kg/m2 970182.3 5 g 119 mm[Hg] 81 mm[Hg] [facility] 1 09:45:56 Date Recorded Body weight Body mass index (BMI) Body height Systolic blood pressure Diastolic blood pressure Provider Name and Address Organization Details Last Updated DateTime 06/18/2019 374399.6 8 g 43.1 kg/m2 162.56 cm 153 mm[Hg] 100 mm[Hg] [facility] 0 11:56:37 Date Recorded Body height Body mass index (BMI) Body weight Systolic blood pressure Diastolic blood pressure Provider Name and Address Organization Details Last Updated DateTime 09/28/2022 162.56 cm 37.6 kg/m2 68786.73 g 136 mm[Hg] 82 mm[Hg] [facility] 3 16:11:33 Date Recorded Body height Body mass index (BMI) Body weight Systolic blood pressure Diastolic blood pressure Provider Name and Address Organization Details Last Updated DateTime 10/03/2023 162.56 cm 37.8 kg/m2 54888.32 g 132 mm[Hg] 88 mm[Hg] Kelsi Anguiano [facility] 4 09:41:47 Social History Question Answer Notes LastModified by Organizat ion Details LastModified Time Tobacco Smoking Status Never Smoker Darlin Schmitt elke, [facility] 09/28/2022 16:12:03 Do You Have An Advance Directive? No Information not available 08/16/2020 What Is Your Level Of Alcohol Consumption? Occasional Information not available 09/28/2022 How Many Years Have You Consumed Alcohol? 20 [email or web address] Information not available 10/03/2023 Are You Blind Or Do You Have Difficulty Seeing? No Information not available 08/16/2020 What Is Your Level Of Caffeine Consumption? Moderate Information not available 08/16/2020 How Much Tobacco Do You Chew? None Information not available 09/28/2022 In The 14 Days Before Symptom Onset, Have You Had Close Contact With A Laboratory-confir med COVID-19 While That Case Was Ill? No Information not available 08/16/2020 In The 14 Days Before Symptom Onset, Have You Had Close Contact With A Person Who Is Under Investigation For COVID-19 While That Person Was Ill? No Information not available 08/16/2020 Have You Been To An Area Known To Be High Risk For COVID-19? No Information not available 08/16/2020 Are You Deaf Or Do You Have Serious Difficulty Hearing? No Information not available 08/16/2020 What Type Of Diet Are You Following? DIABETIC Information not available 08/16/2020 What Is The Highest Grade Or Level Of School You Have Completed Or The Highest Degree You Have Received? 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 No Information not available 08/16/2020 Do You Use Protection During Sex? Always Information not available 08/16/2020 Do You Use Your Seat Belt Or Car Seat Routinely? Yes Information not available 08/16/2020 Do You Have Smoke And Carbon Monoxide Detectors In Your Home? Yes Information not available 08/16/2020 How Much Tobacco Do You Smoke? No Information not available 08/16/2020 Do You Feel Stressed (tense, Restless, Nervous, Or Anxious, Or Unable To Sleep At Night)? [id number] Information not available 08/16/2020 Do You Use Any Illicit Or Recreational Drugs? No Information not available 08/16/2020 Do You Use Sunscreen Routinely? Yes Information not available 08/16/2020 Have You Used IV Drugs? No Information not available 08/16/2020 Sex: Unknown Functional Status Question Answer Note LastModified by Organizat ion Details LastModified Time Do you have difficulty walking or climbing stairs? No [email or web address] Information not available 10/03/2023 Are you able to walk? YESWOREST Information not available 08/16/2020 Are you able to care for yourself? Yes [email or web address] Information not available 10/03/2023 Do you have difficulty dressing or bathing? No [email or web address] Information not available 10/03/2023 What is your exercise level? Occasional Information not available 08/16/2020 Mental Status None recorded. Family History Relationship Description Onset Age of this Age Resolved Age Notes LastModified by Organization Details LastModified Time Father Hypercholest erolemia [email or web address] Not available 2019 12:22:49 Father Asthma [email or web address] Not available 12:22:58 Father Hypertensive disorder [email or web address] Not available 2019 12:23:07 Father Mental disorder Not available 2022 16:11:38 Maternal Grandmother Anemia smcaley Not available 2019 12:23:16 Maternal Grandfather Hypercholest erolemia smcaley Not available 2019 12:23:29 Maternal Grandfather Hypertensive disorder smcaley Not available 2019 12:24:06 Sister Mental disorder [email or web address] Not available 2019 12:24:23 Medical History Condition Response Diabetes Y Anxiety Disorder Y Allergies (Food, seasonal, environmental ) Y Other High Cholesterol Y Acid Reflux (GERD) Y Headaches Y Hypertension Y Asthma Y Psychiatric Illness Y Gynecological History Statement/Question Response Abnormal Pap N Date of Last Mammogram On BCP's at Conception? N N Was last menstrual period normal Y STIs/STDs N HPV Vaccine Y Current Control Method IUD Date of Last Colonoscopy 11/01/2022 Sexually Active? N IUD Age of first menstrual cycle 12 Date of Last Pap Smear 09/28/2022 Sexual Problems? N Desired Control Method IUD LMP Unknown N Obstetrics History GPAL:G 0 P 0 0 0 0 Past Encounters Encounter ID Performer Location Encounter Start Date Encounter Closed Date Diagnosis/Indication Diagnosis SNOMED-CT Code Diagnosis ICD10 Code [id number] Epifanio Nascimento MD [facility] [address],[place] [address] 06/18/2019 11:40:02 06/18/2019 16:17:59 Abscess of vulva 84558568 N76.4 [id number] Epifanio Nascimento MD [place] [address],[place] [address] 08/16/2020 09:33:34 08/16/2020 10:11:26 Gynecologic examination 45229557 Z01.419 [id number] Epifanio Nascimento MD [place] [address],[place] [address] 09/28/2022 15:44:49 09/28/2022 17:03:32 Gynecologic examination 35208169 Z01.419 Z11.51 [id number] Epifanio Nascimento MD [place] [address],[place] [address] 10/03/2023 09:35:38 10/03/2023 10:55:06 Gynecologic examination 48200677 Z01.419 Z11.51 Health Concerns Section Related Observation LastModified by Organization Detai ls LastModified Time None Recorded Concern Status LastModified by Organization Details LastModified Time None Recorded Advance Directives Directive N: Payers Encounter Date Sequence Insurance Name Policy Number Policy Acevedo Covered Member ID Acevedo Member ID Guarantor Name 06/18/2019 1 [employer] (POS) [id number] Alannah Ruano [id number] Alannah Ruano 08/16/2020 1 T (POS) [id number] Alannah Ruano [id number] Alannah Ruano 09/28/2022 1 [facility] (PPO) [id number] Alannah Ruano [id number] Alannah Ruano 10/03/2023 1 [facility] [id number] Alannah Ruano [id number] Alannah Ruano Notes Date Note Type Note Provider Name and Address Organization Details Recorded Time 06/18/2019 text/html TThis patient is a 34-year-old female who was seen previously for pelvic pain. She had concerns about her IUD placement. During the exam string could just be visualized. Ultrasound was performed today. The IUD is well position. Her ovaries are normal. The patient discussed some recent physical exertion the may account for her lower abdominal pain. We agreed to observe. She will contact us for continued problems or further investigation of her concerns. Epifanio Nascimento MD [address], [place], [address], [facility] 06/18/2019 12:41:56 08/16/2020 text/html Annual GYNReport ed bypatient.History:n o gynecologic complaints Menstrual cycle:Amenorrhea due to mirena Urinary symptoms:No hematuria; No incontinence Vulva:No genital lesion Vagina:Normal vaginal discharge Breast:No breast pain; No breast lump; No nipple discharge Current Contraception:Satis fied with current contraception; Intrauterine device (iud) Menopausal Symptoms:No menopausal symptoms; Normal vaginal lubrication Psychological symptoms:Depression ;Anxiety; Stable Preventive measures:Encourage self breast examination; Encourage regular exercise Epifanio Nascimento MD [address], [place], [address], [facility] 08/16/2020 10:10:14 09/28/2022 text/html Annual GYNReport ed bypatient.History:n o gynecologic complaints Menstrual cycle:Normal menses Urinary symptoms:No hematuria Vulva:No genital lesion Vagina:Normal vaginal discharge Breast:No breast pain; No breast lump Current Contraception:Satis fied with current contraception; Intrauterine device (iud) Sexual complaints:No sexual complaints Menopausal Symptoms:No menopausal symptoms Psychological symptoms:Depression ;Anxiety; stable, treated Preventive measures:Encourage self breast examination; Encourage regular exercise Epifanio Nascimento MD [address], [place], [address], [facility] 09/28/2022 16:56:33 10/03/2023 text/html Annual GYNReport ed bypatient.History:n o gynecologic complaints Urinary symptoms:No hematuria Vulva:No genital lesion Vagina:Normal vaginal discharge Breast:No breast pain; No breast lump Sexual complaints:No sexual complaints; No pain during intercourse Menopausal Symptoms:No menopausal symptoms Psychological symptoms:Depression ;Anxiety; Txed Preventive measures:Encourage self breast examination; Encourage regular exercise Epifanio Nascimento MD [address], [place], [address], [facility] 10/03/2023 10:14:53 OBGyn Episode No OBEpisode recorded.
--- OUTSIDE RECORDS SUMMARY | 2024-02-24 16:57 | XMS_ITS | Encounter Summary ---
Author Organization [facility] Address [address] [place] [address]. [place] [address] [place] [address] Care Team Providers Care Subassembler Name Role Phone Deedee Low Primary Care Provider [phone] Reason for Visit * Reason Onset Date Comments Question 11/04/2023 Encounter Details Date Type Department Care Team (Late st Contact Info) Description 11/04/2023 Telephone [facility] - [address] [place] [address] Presley Hernandez MD [address] [place] [id number] Question Social History Tobacco Use Types Packs/Day Years Used Date Smoking Tobacco: Former Cigarettes Passive Smoke Exposure: Past Smokeless Tobacco: Former Comments: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 * Gia Bone - 11/04/2023 11:40 AM CDT [facility] called concerning BOTOX doses. Please call her back [phone] Jen. Reference # [id number] documented in this encounter Plan of Treatment Upcoming Encounters Date Type Department Care Team (Late st Contact Info) Description 04/15/2024 1:00 PM PROJECT LEAD [facility] [address] [facility], [address] [place] [id number] Presley Hernandez MD [address] [place] [address] 04/30/2024 10:40 AM PROJECT LEAD [facility] [address] [facility], [address] [place] [address] Presley Hernandez MD [address] [place] [address] documented as of this encounter Visit Diagnoses Not on filedocumented in this encounter Care Teams Subassembler Relationship Specialty Start Date End Date Deedee Low PA [address] [place] [address] PCP - General PHYSICIAN ACCOUNTS PAYABLE TECHNICIAN 07/22/20 documented as of this encounter
--- OUTSIDE RECORDS SUMMARY | 2024-02-24 16:57 | XMS_ITS | Encounter Summary ---
Author Organization [facility] Address [address] [place] [address]. [place], [place] [id number] [place] [address] Care Team Providers Care Housekeeping Associate Name Role Phone Jennifermary Deedee DELMER Primary Care Provider [phone] Encounter Details Date Type Department Care Team (Latest Contact Info) Description 12/12/2023 Scan HEALTH INFO [facility] Scanned, Doc Med Group Social History Tobacco Use Types Packs/Day Years [...] on file documented as of this encounter Plan of Treatment Upcoming Encounters Date Type Department Care Team (Late st Contact Info) Description 04/15/2024 1:[address] BOSS Office Visit [facility] - [facility] [address] [facility], [address] [place] [id number] Presley Hernandez MD [address] [place] [address] 04/30/2024 10:[address] BOSS Office Visit [facility] - [facility] [address] [facility], [address] [place] [address] Presley Hernandez MD [address] [place] [address] documented as of this encounter Visit Diagnoses Not on filedocumented in this encounter Care Teams Housekeeping Associate Relationship Specialty Start Date End Date Deedee Low PA [address] [place] [address] PCP - General PHYSICIAN CLINIC LEAD 07/22/20 documented as of this encounter
--- OUTSIDE RECORDS SUMMARY | 2024-02-24 16:57 | XMS_ITS | Encounter Summary ---
Author Organization [facility] Address [address] [place] [address]. [place], [place] [id number] [place] [address] Care Team Providers Care Log Marker Name Role Phone Jennifermary Deedee DELMER Primary Care Provider [phone] Encounter Details Date Type Department Care Team (Latest Contact Info) Description 01/30/2024 Scan HEALTH INFO SRVCS Scanned, Doc Med Group Social History Tobacco Use Types Packs/Day Years Used Date Smoking Tobacco: Former Cigarettes Passive Smoke Exposure: Past Smokeless Tobacco: Former Comments:Pt states just tri ed in high school Alcohol Use Standard Drinks/Week Comments Yes 0 (1 standard drink = 0.6 oz pur e alcohol) occasionally PHQ-2 Answer Date Recorded Patient Health Questionnaire-2 Score 0 01/22/2024 Comments No Sex and Gender Information Value Date Recorded Sex Assigned at Not on file Legal Sex Female 2:06 PM CDT Gender Identity Not on file Sexual Orientation Not on file documented as of this encounter Plan of Treatment Upcoming Encounters Date Type Department Care Team (Late st Contact Info) Description 04/15/2024 1:00 PM FINANCIAL SERVICES AUDITOR Office Visit [facility] Multispecialty Care - [facility] [address] [facility], [address] [place] [phone] Presley Hernandez MD 3 [place] [address] 04/30/2024 10:40 AM FINANCIAL SERVICES AUDITOR Office Visit [facility] Multispecialty Care - [facility] [address] [facility], [address] [place] [address] Presley Hernandez MD 3 [place] [address] documented as of this encounter Visit Diagnoses Not on filedocumented in this encounter Care Teams Log Marker Relationship Specialty Start Date End Date Deedee Low PA [address] [place] [address] PCP - General PHYSICIAN COMPUTER TECHNOLOGIST 07/22/20 documented as of this encounter
--- OUTSIDE RECORDS SUMMARY | 2024-02-24 16:57 | XMS_ITS | Encounter Summary ---
Author Organization [facility] Address [address] [place] [address]. [place], [place] [address] [place] [address] Care Team Providers Care Backhoe Operator Name Role Phone Jennifermary Deedee DELMER Primary Care Provider [phone] Encounter Details Date Type Department Care Team (Latest Contact Info) Description 10/23/2023 Scan HEALTH INFO SRVCS Scanned, Doc Med [...] st Contact Info) Description 04/15/2024 1:00 PM HOSE MAKER Office Visit [facility] Medical Group Multispecialty Care - [facility] [address] [facility], [address] [place] [phone] Presley Hernandez MD 3 [place] [address] 04/30/2024 10:40 AM HOSE MAKER Office Visit [facility] Medical Group Multispecialty Care - [facility] [address] [facility], [address] [place] [address] Presley Hernandez MD 3 [place] [address] documented as of this encounter Visit Diagnoses Not on filedocumented in this encounter Care Teams Backhoe Operator Relationship Specialty Start Date End Date Deedee Low PA [address] [place] [address] PCP - General PHYSICIAN LEGAL STENOGRAPHER 07/22/20 documented as of this encounter
--- OUTSIDE RECORDS SUMMARY | 2024-02-24 16:57 | XMS_ITS | Encounter Summary ---
Author Organization [facility] Address [address] [place] [address]. [place], [place] [address] [place] [address] Care Team Providers Care [place] Name Role Phone Deedee Low Primary Care Provider [phone] Encounter Details Date Type Department Care Team (Latest Contact Info) Description 08/08/2023 Travel Social History Tobacco Use Types Packs/Day Years Used Date Smoking Tobacco: Former Cigarettes Passive Smoke Exposure: Past Smokeless Tobacco: Former Comments:Pt states just tri ed in high school Alcohol Use Standard Drinks/Week Comments Yes 0 (1 standard drink = 0.6 oz pur e alcohol) occasionally PHQ-2 Answer Date Recorded Patient Health Questionnaire-2 Score 0 10/10/2022 Comments No Sex and Gender Information Value Date Recorded Sex Assigned at Not on file Legal Sex Female 2:06 PM CDT Gender Identity Not on file Sexual Orientation Not on file documented as of this encounter Plan of Treatment Upcoming Encounters Date Type Department Care Team (Late st Contact Info) Description 04/15/2024 1:00 PM POST SPLITTER Office Visit [facility] Multispecialty Care - [facility] 3 [facility], [address] [place] [address] Presley Hernandez MD 3 [place] [address] 04/30/2024 10:40 AM POST SPLITTER Office Visit [facility] Multispecialty Care - [facility] [address] [facility], [address] [place] [address] Presley Hernandez MD 3 [place] [address] documented as of this encounter Visit Diagnoses Not on filedocumented in this encounter Care Teams [place] Relationship Specialty Start Date End Date Deedee Low PA [address] [address] [place] [address] PCP - General PHYSICIAN ORGANIC GARDENING TEACHER 07/22/20 documented as of this encounter
--- OUTSIDE RECORDS SUMMARY | 2024-02-24 16:57 | XMS_ITS | Encounter Summary ---
Author Organization [facility] [employer] Address [address] [place] [address] Care Team Providers Care Cutter And Paster Press Clippings Name Role Phone Deedee Huerta Primary Care Pr ovider Reason for Visit * Reason Onset Date Comments Follow-up 09/10/2018 Encounter Details Date Type Department Care Team (Late st Contact Info) Description 09/10/2018 Telephone [facility] [employer] [facility] AT [address] [phone] Provider, [facility] Exp Success Follow-up Social History Tobacco Use Types Packs/Day Years Used Date Smoking Tobacco: Former Smokeless Tobacco: Never Sex and Gender Information Value Date Recorded Sex Assigned at Not on file Gender Identity Not on file Sexual Orientation Not on file documented as of this encounter Miscellaneous Notes * Telephone Encounter - Khushi Austin - 09/10/2018 9:56 AM CDT Courtesy follow-up phone call made to patient. Message left advising patient to call [facility] [phone] if they have any questions or concerns. Khushi Austin 09/10/2018 10:01 AM documented in this encounter Plan of Treatment Not on file documented as of this encounter Visit Diagnoses Not on filedocumented in this encounter Care Teams Cutter And Paster Press Clippings Relationship Specialty Start Date End Date Deedee Huerta PA [address] [place] [address] [place] [phone] PCP - General Physician Leasing Agent 02/08/18 documented as of this encounter
--- OUTSIDE RECORDS SUMMARY | 2024-02-24 16:57 | XMS_ITS | Encounter Summary ---
Author Organization [facility] Address [address] [place] [address]. [place], [place] [address] [place] [address] Care Team Providers Care Director Of Financial Aid Name Role Phone Jennifermary Deedee DELMER Primary Care Provider [phone] Encounter Details Date Type Department Care Team (Latest Contact Info) Description 08/13/2023 Scan HEALTH INFO SRVCS Scanned, Doc Med Group Social History Tobacco Use Types Packs/Day Years Used Date Smoking Tobacco: Former Cigarettes Passive Smoke Exposure: Past Smokeless Tobacco: Former Comments:Pt states just tri ed in high school Alcohol Use Standard Drinks/Week Comments Yes 0 (1 standard drink = 0.6 oz pur e alcohol) occasionally PHQ-2 Answer Date Recorded Patient Health Questionnaire-2 Score 0 08/22/2023 Comments No Sex and Gender Information Value Date Recorded Sex Assigned at Not on file Legal Sex Female 2:06 PM CDT Gender Identity Not on file Sexual Orientation Not on file documented as of this encounter Plan of Treatment Upcoming Encounters Date Type Department Care Team (Late st Contact Info) Description 04/15/2024 1:00 PM COOK FAST FOOD Office Visit [facility] Group Multispecialty Care - [facility] [address] [facility], [address] [place] [address] Presley Hernandez MD 3 [place] [address] 04/30/2024 10:40 AM COOK FAST FOOD Office Visit [facility] Multispecialty Care - [facility] [address] [facility], [address] [place] [address] Presley Hernandez MD 3 [place] [address] documented as of this encounter Visit Diagnoses Not on filedocumented in this encounter Care Teams Director Of Financial Aid Relationship Specialty Start Date End Date Deedee Low PA [address] [place] [address] PCP - General PHYSICIAN DATA INTEGRITY ANALYST 07/22/20 documented as of this encounter
--- OUTSIDE RECORDS SUMMARY | 2024-02-24 16:57 | XMS_ITS | Encounter Summary ---
Author Organization [facility] Address [address] [place] [address]. [place], [place] [address] [place] [address] Care Team Providers Care Coffee Roaster Helper Name Role Phone Deedee Low Primary Care Provider [phone] Encounter Details Date Type Department Care Team (Latest Contact Info) Description 01/30/2024 Travel Social History Tobacco Use Types Packs/Day [...] st Contact Info) Description 04/15/2024 1:00 PM DISTRIBUTION OPERATIONS SUPERVISOR Office Visit [facility] Multispecialty Care - [facility] [address] [facility], [address] [place] [address] Presley Hernandez MD 3 [place] [address] 04/30/2024 10:40 AM DISTRIBUTION OPERATIONS SUPERVISOR Office Visit [facility] Multispecialty Care - [facility] [address] [facility], [address] [place] [address] Presley Hernandez MD 3 [place] [address] documented as of this encounter Visit Diagnoses Not on filedocumented in this encounter Care Teams Coffee Roaster Helper Relationship Specialty Start Date End Date Deedee Low PA [address] [facility] [place] [address] PCP - General PHYSICIAN MILLSTONE CLEANER 07/22/20 documented as of this encounter
--- OUTSIDE RECORDS SUMMARY | 2024-02-24 16:57 | XMS_ITS | Encounter Summary ---
Author Organization [facility] Address [address] [facility] [place] [address] Care Team Providers Care Substation Engineer Name Role Phone Deedee Huerta Primary Care Pr ovider Reason for Visit * Reason Comments URI Encounter Details Date Type Department Care Team (Late st Contact Info) Description 02/08/2018 2:20 PM RN LONG TERM CARE Office Visit [facility] AT [address] [address] [facility] [place] Acute maxillary sinusitis, recurrence not specified (Primary Dx) Social History Tobacco Use Types Packs/Day Years Used Date Smoking Tobacco: Former Smokeless Tobacco: Never Sex and Gender Information Value Date Recorded Sex Assigned at Not on file Gender Identity Not on file Sexual Orientation Not on file documented as of this encounter Last Filed Vital Signs Vital Sign Reading Time Taken Comments Blood Pressure 124/82 02/08/2018 2:58 PM RN LONG TERM CARE Pulse 102 02/08/2018 2:58 PM RN LONG TERM CARE Temperature 36.7 ??C (98 ??F) 02/08/2018 2:58 PM RN LONG TERM CARE Respiratory Rate 20 02/08/2018 2:58 PM RN LONG TERM CARE Oxygen Saturation 99% 02/08/2018 2:58 PM RN LONG TERM CARE Inhaled Oxygen Concentration - - Weight 113.4 kg (250 lb) 02/08/2018 2:58 PM RN LONG TERM CARE Height 162.6 cm (5' 4 ) 02/08/2018 2:58 PM RN LONG TERM CARE Body Mass Index 42.91 02/08/2018 2:58 PM RN LONG TERM CARE documented in this encounter Patient Instructions * Patient Instructions* Angelita Schilling, KHARI-ROBERTO - 02/08/2018 3:13 PM RN LONG TERM CARE Images from the original note were not included. 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 It is most often caused by a virus. Acute sinusitis may last up to 12 weeks. Chronic sinusitis lasts longer than 12 weeks. Recurrent sinusitis means you have 4 or more times in 1 year. Common symptoms include the following: ?? Fever ?? Pain, pressure, redness, or swelling around the forehead, cheeks, or eyes ?? Thick yellow or green discharge from your nose ?? Tenderness when you touch your face over your sinuses ?? Dry cough that happens mostly at night or when you lie down ?? Headache and face pain that is worse when you lean forward ?? Tooth pain, or pain when you chew Seek care immediately if: ?? Your eye and eyelid are red, swollen, and painful. ?? You cannot open your eye. ?? You have vision changes, such as double vision. ?? Your eyeball bulges out or you cannot move your eye. ?? You are more sleepy than normal, or you notice changes in your ability to think, move, or talk. ?? You have a stiff neck, a fever, or a bad headache. ?? You have swelling of your forehead or scalp. Contact your healthcare provider if: ?? Your symptoms do not improve after 3 days. ?? Your symptoms do not go away after 10 days. ?? You have nausea and are vomiting. ?? Your nose is bleeding. ?? You have questions or concerns about your condition or care. Treatment for sinusitis: Your symptoms may go away on their own. Your healthcare provider may recommend watchful waiting for up to 10 days before starting antibiotics. You may need any of the following: ?? Acetaminophen decreases pain and fever. It is available without a doctor's order. Ask how much to take and how often to take it. Follow directions. Read the labels of all other medicines you are using to see if they also contain acetaminophen, or ask your doctor or pharmacist. Acetaminophen can cause liver damage if not taken correctly. Do not use more than 4 grams (4,000 milligrams) total of acetaminophen in one day. ?? NSAIDs , such as ibuprofen, help decrease swelling, pain, and fever. This medicine is available with or without a doctor's order. NSAIDs can cause stomach bleeding or kidney problems in certain people. If you take blood thinner medicine, always ask your healthcare provider if NSAIDs are safe foryou. Always read the medicine label and follow directions. ?? Nasal steroid sprays may help decrease inflammation in your nose and sinuses. ?? Decongestants help reduce swelling and drain mucus in the nose and sinuses. They may help you breathe easier. ?? Antihistamines help dry mucus in the nose and relieve sneezing. ?? Antibiotics help treat or prevent a bacterial infection. ?? Take your medicine as directed. Contact your healthcare provider if you think your medicine is not helping or if you have side effects. Tell him or her if you are allergic to any medicine. Keep a list of the medicines, vitamins, and herbs you take. Include the amounts, and when and why you take them. Bring the list or the pill bottles to follow-up visits. Carry your medicine list with you in case of an emergency. Self-care: ?? Rinse your sinuses. Use a sinus rinse device to rinse your nasal passages with a saline (salt water) solution or distilled water. Do not use tap water. This will help thin the mucus in your nose and rinse away pollen and dirt. It will also help reduce swelling so you can breathe normally. Ask your healthcare provider how often to do this. ?? Breathe in steam. Heat a bowl of water until you see steam. Lean over the bowl and make a tent over your head with a large towel. Breathe deeply for about 20 minutes. Be careful not to get too close to the steam or burn yourself. Do this 3 times a day. You can also breathe deeply when you take ahot shower. ?? Sleep with your head elevated. Place an extra pillow under your head before you go to sleep to help your sinuses drain. ?? Drink liquids as directed. Ask your healthcare provider how much liquid to drink each day and which liquids are best for you. Liquids will thin the mucus in your nose and help it drain. Avoid drinks that contain alcohol or caffeine. ?? Do not smoke, and avoid secondhand smoke. Nicotine and other chemicals in cigarettes and cigars can make your symptoms worse. Ask your healthcare provider for information if you currently smoke and need help to quit. E-cigarettes or smokeless tobacco still contain nicotine. Talk to your healthcare provider before you use these products. Prevent the spread of germs that cause sinusitis: Wash your hands often with soap and water. Wash your hands after you use the bathroom, change a child's diaper, or sneeze. Wash your hands before youprepare or eat food. Follow up with your healthcare provider as directed: You may be referred to an ear, nose, and throat specialist. Write down your questions so you remember to ask them during your visits. ?? Copyright [employer] 2018 Information is for End User's use only and may not be sold, redistributed or otherwise used for commercial purposes. All illustrations and images included in CareNotes?? are the copyrighted property of [employer]. or [employer]pp The above information is an cafe aide only. It is not intended as medical advice for individual conditions or treatments. Talk to your doctor, nurse or pharmacist before following any medical regimen to see if it is safe and effective for you. 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 Common causes of an acute cough include a cold, allergies, or a lung infection. Seek care immediately if: ?? You have trouble breathing or feel short of breath. ?? You cough up blood, or you see blood in your mucus. ?? You faint or feel weak or dizzy. ?? You have chest pain when you cough or take a deep breath. ?? You have new wheezing. Contact your healthcare provider if: ?? You have a fever. ?? Your cough lasts longer than 4 weeks. ?? Your symptoms do not improve with treatment. ?? You have questions or concerns about your condition or care. Treatment: An acute cough usually goes away on its own. Ask your healthcare provider about medicines you can take to decrease your cough. You may need medicine to stop the cough, decrease swelling inyour airways, or help open your airways. Medicine may also be given to help you cough up mucus. If you have an infection caused by bacteria, you may need antibiotics. Manage your symptoms: ?? Do not smoke and stay away from others who smoke. Nicotine and other chemicals in cigarettes andcigars can cause lung damage and make your cough worse. Ask your healthcare provider for information if you currently smoke and need help to quit. E-cigarettes or smokeless tobacco still contain nicotine. Talk to your healthcare provider before you use these products. ?? Drink extra liquids as directed. Liquids will help thin and loosen mucus so you can cough it up.Liquids will also help prevent dehydration. Examples of good liquids to drink include water, fruit juice, and broth. Do not drink liquids that contain caffeine. Caffeine can increase your risk for dehydration. Ask your healthcare provider how much liquid to drink each day. ?? Rest as directed. Do not do activities that make your cough worse, such as exercise. ?? Use a humidifier or vaporizer. Use a cool mist humidifier or a vaporizer to increase air moisture in your home. This may make it easier for you to breathe and help decrease your cough. ?? Eat 2 to 5 mL of honey 2 times each day. Honey can help thin mucus and decrease your cough. ?? Use cough drops or lozenges. These can help decrease throat irritation and your cough. Follow up with your healthcare provider as directed: Write down your questions so you remember to ask them during your visits. ?? Copyright [employer] Software 2018 Information is for End User's use only and may not be sold, redistributed or otherwise used for commercial purposes. All illustrations and images included in CareNotes?? are the copyrighted property of [employer]. or [employer]pp The above information is an cafe aide only. It is not intended as medical advice for individual conditions or treatments. Talk to your doctor, nurse or pharmacist before following any medical regimen to see if it is safe and effective for you. LONG TERM CARE documented in this encounter Progress Notes * Angelita Schilling APRN-CNP - 02/08/2018 3:06 PM CST Subjective: Alannah Ruano is a 37 y.o. female who presents for evaluation: Chief Complaint Patient presents with ??? URI Primary Care Physician is DELMER Basurto. Symptoms include URI symptoms including Cough, congestion, runny, bilateral ear pain, sore throat pt states from drainage, sore throat is worse in am and pm, feverish 101F was the highest, with sweats and chills, decreased sense of smell. Onset of symptoms was 10 days ago, gradually worsening since that time. She is drinking moderate amounts of fluids. Evaluation to date: none. Treatment to date: theraflu No Known Allergies Outpatient Prescriptions Marked as Taking for the 02/08/18 encounter (Office Visit) with Provider, Joesph Eid Medication Sig ??? clonazePAM (KLONOPIN) 0.5 MG tablet Take 0.5 mg by mouth 2 times daily ??? topiramate (TOPAMAX) 200 MG tablet Take 200 mg by mouth 2 times daily ??? sertraline (ZOLOFT) 100 MG tablet Take 100 mg by mouth 2 times daily ??? fenofibrate (LOFIBRA) 160 MG tablet Take 160 mg by mouth once daily Take with largest meal of the day. ??? ondansetron (ZOFRAN) 8 MG tablet Take 8 mg by mouth every 6 hours as needed for Nausea/Vomiting ??? albuterol HFA (PROAIR HFA) 108 (90 BASE) MCG/ACT inhaler Inhale 2 puffs by mouth every 6 hours as needed ??? Cholecalciferol (VITAMIN D3) 91429 UNITS TABS Take by mouth every 36 hours ??? lisinopril (PRINIVIL; ZESTRIL) 20 MG tablet Take 20 mg by mouth once daily ??? propranolol (INDERAL) 40 MG tablet Take 40 mg by mouth once daily ??? rizatriptan (MAXALT) 10 MG tablet Take 10 mg by mouth daily as needed - may repeat one time forMigraine N ??? MONTELUKAST SODIUM PO ??? carBAMazepine XR 12hr (TEGRETOL XR) 100 MG tablet Take 100 mg by mouth 3 times daily ??? Fexofenadine HCl (OCHOA PO) ??? Exenatide (BYDUREON SC) Inject subcutaneously every 7 days ??? canagliflozin-metFORMIN (INVOKAMET) 150-1000 MG tablet Take 1 tablet by mouth 2 times daily with morning and evening meal ??? Insulin Degludec (TRESIBA FLEXTOUCH SC) ??? levonorgestrel (MIRENA, 52 MG,) 20 MCG/24HR IUD 1 device by Intrauterine route as directed ??? doxycycline hyclate (VIBRAMYCIN) 100 MG capsule Take 1 capsule by mouth 2 times daily for 7 days ??? benzonatate (TESSALON) 200 MG capsule Take 1 capsule by mouth 3 times daily as needed for Cough Past Medical History: Diagnosis Date ??? Anxiety ??? Depression ??? Diabetes 2 ??? Environmental and seasonal allergies ??? Hypertension ??? Meningitis spinal Social History Social History ??? Marital status: Single Spouse name: N/A ??? Number of children: N/A ??? Years of education: N/A Occupational History ??? Not on file. Social History Main Topics ??? Smoking status: Former Smoker ??? Smokeless tobacco: Never Used ??? Alcohol use Not on file ??? Drug use: Not on file ??? Sexual activity: Not on file Other Topics Concern ??? Not on file Social History Narrative ??? No narrative on file Medications reviewed. Review of Systems Pertinent items are noted in HPI Constitutional: Positive for fevers, chills, sweats Eyes: Negative Ears, nose, mouth, and throat: Positive for congestion, runny nose, bilateral ear pain, sore throatpt states it feels like it is from drainage, sore throat is worse in am and pm, decreased sense of smell. Respiratory: Positive for acute cough Cardiovascular: Negative Gastrointestinal: Negative Skin: Negative Hematologic/lymphatic: Negative Musculoskeletal:Negative Neurological: Negative Objective: BP 124/82 (BP SITE: LEFT ARM, BP POSITION: SITTING, BP CUFF SIZE: 12) Pulse 102 Temp 98 ??F (36.7 ??C) (Oral) Resp 20 Ht 1.626 m (5' 4 ) Wt 113.4 kg (250 lb) SpO2 99% BMI 42.91 kg/m2 Skin: Physical Exam Exam General appearance: alert, cooperative, no distress, oriented to person, place, and time, wellappearing Head: normocephalic, without trauma Eyes: sclera and conjunctiva clear, EOMI and PERRLA, lids normal Ears: canals clear, tympanic membranes normal, hearing intact to voice Nose: nares open; no septal deviation is noted, mucosa erythematous and swollen, maxillary and ethmoid tenderness bilaterally, No ethmoid tenderness Throat: no mucous membrane abnormalities, lips, mucosa, and tongue normal; teeth and gums normal Neck: range of motion is intact, Nodes: no cervical adenopathy, non tender Lungs: breath sounds normal and symmetric; no rales or wheezes, non-productive cough noted with exam Heart: regular rhythm, normal S1 and S2, without murmurs, gallops or rubs Neurologic: mental status normal; alert and oriented X 3 Assessment: . Encounter Diagnoses Name Primary? Acute maxillary sinusitis, recurrence not specified Yes Plan: Discussed dx and tx of URIs Discussed the dx and tx of sinusitis. Discussed the importance of avoiding unnecessary abx therapy. Suggested symptomatic OTC remedies. Antibiotics per orders. RTC prn. You can take tylenol as needed for pain and discomfort as needed (per package directions). You can take Coricidin as needed (per package directions). Avoid other decongestants due to the risk of increasing your blood pressure. Monitor blood pressure at least 2-3 times per week during illness, call your Primary physician or go to the ER if blood pressure is greater than 160/90. If you begin to run a fever or if symptoms worsen, such as difficulty breathing or shortness of breath, seek medial attention as soon as possible. Humidifier may be helpful especially at night Drink plenty of fluids and get plenty of rest If symptoms persist or worsen at any time, follow up with a health care provider, clinic or emergency care Continue to follow up with DELMER Basurto as directed. After Visit Summary reviewed with patient. The patient indicates understanding of these issues and agrees with the plan. Patient discharged to Home .HERNANDEZ Ken 02/08/2018 3:19 PM Orders Placed This Encounter ??? INFLUENZA A+B - POINT OF CARE (AMB) ??? doxycycline hyclate (VIBRAMYCIN) 100 MG capsule Sig: Take 1 capsule by mouth 2 times daily for 7 days Dispense: 14 capsule Refill: 0 ??? benzonatate (TESSALON) 200 MG capsule Sig: Take 1 capsule by mouth 3 times daily as needed for Cough Dispense: 30 capsule Refill: 0 Recent Results (from the past 24 hour(s)) INFLUENZA A+B - POINT OF CARE (AMB) Collection Time: 02/08/18 3:08 PM Result Value Ref Range Influenza A Antigen Rapid Negative Negative Influenza B Antigen Rapid Negative Negative Influenza Internal Control positive NEGATIVE - POSITIVE Influenza Lot Number [id number] Influenza Expiration Date [id number] LONG TERM CARE documented in this encounter Plan of Treatment Not on file documented as of this encounter Procedures Procedure Name Priority Date/Time Associated Diagnosis Comments INFLUENZA A+B - POINT OF CARE (AMB) Routine 02/08/2018 3:08 PM RN LONG TERM CARE Acute maxillary sinusitis, recurrence not specified documented in this encounter Results * INFLUENZA A+B - POINT OF CARE (AMB) (02/08/2018 3:08 PM RN LONG TERM CARE) Influenza A Antigen Rapid Negative Negative Influenza B Antigen Rapid Negative Negative Influenza Internal Control positive NEGATIVE - POSITIVE Influenza Lot Number [id number] Influenza Expiration Date Other NASOPHARYNGEAL SWAB / Unknown 02/08/2018 3:08 PM RN LONG TERM CARE Angelita Schilling APRN-[employer] ADVANCED OPERATOR MAINTAINER LAB - POINT OF CA RE ORDERABLES documented in this encounter Visit Diagnoses Diagnosis Acute maxillary sinusitis, recurrence not specified- Primary documented in this encounter Care Teams Substation Engineer Relationship Specialty Start Date End Date Deedee Huerta PA [address] [place] [address] PCP - General Physician Administrative Court Justice 02/08/18 documented as of this encounter
--- OUTSIDE RECORDS SUMMARY | 2024-02-24 16:57 | XMS_ITS | Encounter Summary ---
Author Organization [facility] Address [address] [place] [address]. 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 MANAGER Office Visit [facility] - [facility] [address], [address] [place] [id number] Presley Hernandez MD [address] [place] [address] 04/30/2024 10:40 AM BROWNFIELD REDEVELOPMENT SITE MANAGER Office Visit [facility] - [facility] [address], [address] [place] [address] Presley Hernandez MD [address] [place] [address] documented as of this encounter Visit Diagnoses Not on filedocumented in this encounter Care Teams Postal Clerk Relationship Specialty Start Date End Date Deedee Low PA [address] [facility] [place] [address] PCP - General PHYSICIAN VALVE REPAIRER RECLAMATION 07/22/20 documented as of this encounter
--- OUTSIDE RECORDS SUMMARY | 2024-02-24 16:57 | XMS_ITS | Clinical Summary ---
Author Organization [facility] Address [address] [place] [address] Care Team Providers Care Director Law Enforcement Name Role Phone Deedee Huerta Primary Care Pr ovider Source Comments [facility],non-owned Affiliates and Associated Physician Practices is amultiple site organization consisting of ambulatory clinics and hospital sitesin [place], [place], [place]. This disclosure is being madepursuant to the Care Everywhere program and may not contain all information available regarding this patient. Last updated [employer] [facility] Allergies No known active allergies Medications * Be aware that medications may not be up to date on this document. Alwaysverify current medications with the patient. Medication Sig Dispensed Refills Start Date End Date Status clonazePAM (KLONOPIN) 0.5 MG tablet Take 0.5 mg by mouth 2 times daily Active topiramate (TOPAMAX) 200 MG tablet Take 200 mg by mouth 2 times daily Active sertraline (ZOLOFT) 100 MG tablet Take 100 mg by mouth 2 times daily Active fenofibrate (LOFIBRA) 160 MG tablet Take 160 mg by mouth once daily Take with largest meal of the day. Active ondansetron (ZOFRAN) 8 MG tablet Take 8 mg by mouth every 6 hours as needed for Nausea/Vomiting Active albuterol HFA (PROAIR HFA) 108 (90 BASE) MCG/ACT inhaler Inhale 2 puffs by mouth every 6 hours as needed Active Cholecalciferol (VITAMIN D3) 77547 UNITS TABS Take by mouth every 36 hours Active lisinopril (PRINIVIL; ZESTRIL) 20 MG tablet Take 20 mg by mouth once daily Active propranolol (INDERAL) 40 MG tablet Take 40 mg by mouth once daily Active rizatriptan (MAXALT) 10 MG tablet Take 10 mg by mouth daily as needed - may repeat one time for Migraine N Active MONTELUKAST SODIUM PO Active carBAMazepine XR 12hr (TEGRETOL XR) 100 MG tablet Take 100 mg by mouth 3 times daily Active Fexofenadine HCl (OCHOA PO) Active Exenatide (BYDUREON SC) Inject subcutaneously every 7 days Active canagliflozin-met FORMIN (INVOKAMET) 150-1000 MG tablet Take 1 tablet by mouth 2 times daily with morning and evening meal Active Insulin Degludec (TRESIBA FLEXTOUCH SC) Active levonorgestrel (MIRENA, 52 MG,) 20 MCG/24HR IUD 1 device by Intrauterine route as directed Active benzonatate (TESSALON) 200 MG capsuleIndication s:Acute maxillary sinusitis, recurrence not specified Take 1 capsule by mouth 3 times daily as needed for Cough 30 capsule 02/08/2018 Active Additional Information Patient not taking.Reported on 09/08/2018 Insulin Glargine (BASAGLAR KWIKPEN SC) Active benzonatate (TESSALON) 200 MG capsule Take 1 capsule by mouth 3 times daily as needed for Cough 30 capsule 08/26/2018 Active Additional Information Patient not taking.Reported on 09/08/2018 albuterol-ipratro pium (DUO-NEB) 0.5-2.5 (3) MG/3ML nebulizer solutionIndicatio ns:Asthma, unspecified asthma severity, unspecified whether complicated, unspecified whether persistent (HCC),Medication refill Inhale 3 mL by mouth 4 times daily as needed for Shortness of Breath or Wheezing 1 Box 08/26/2018 Active Family History Medical History Relation Name Comments CAD (Coronary Artery Disease) Father CVA Father Cataract Father Diabetes - Type 2 Father Macular Degeneration Father Relation Name Status Comments Father Social History Tobacco Use Types Packs/Day Years Used Date Smoking Tobacco: Former Smokeless Tobacco: Never Sex and Gender Information Value Date Recorded Sex Assigned at Not on file Gender Identity Not on file Sexual Orientation Not on file Last Filed Vital Signs Vital Sign Reading Time Taken Comments Blood Pressure 128/88 09/08/2018 10:14 AM CDT Pulse 74 09/08/2018 10:14 AM CDT Temperature 36.7 ??C (98 ??F) 09/08/2018 10:14 AM CDT Respiratory Rate 16 09/08/2018 10:14 AM CDT Oxygen Saturation 98% 09/08/2018 10:14 AM CDT Inhaled Oxygen Concentration - - Weight 108.9 kg (240 lb) 09/08/2018 10:14 AM CDT Height 162.6 cm (5' 4 ) 09/08/2018 10:14 AM CDT Body Mass Index 41.2 09/08/2018 10:14 AM CDT Plan of Treatment Health Maintenance Due Date Last Done Comments LIPID TESTING 1981 MAMMOGRAM 1981 PAP SMEAR 1981 HIV SCREENING 1996 HEPATITIS C SCREENING 03/20/1999 DTAP/TDAP/TD VACCINES (1 - Tdap) 2000 HEPATITIS B VACCINE (1 of 3 - 19+ 3-dose series) 2000 DEPRESSION SCREENING 03/11/2023 COVID-19 VACCINE (1 - 2023-2 5 season) 2023 INFLUENZA VACCINE (#1) 2023 ZOSTER VACCINE (1 of 2) 2031 HIB VACCINE Aged Out No longer eligi ble based on patient's age to complete this topic HPV VACCINE Aged Out No longer eligi ble based on patient's age to complete this topic MENINGOCOCCAL VACCINE Aged Out No nevaeh ree eligible based on patient's age to complete this topic PNEUMOCOCCAL VACCINE Aged Out No long er eligible based on patient's age to complete this topic Care Teams Director Law Enforcement Relationship Specialty Start Date End Date Deedee Huerta PA [facility] [place] [id number] PCP - General Physician [employer] 02/08/18
--- OUTSIDE RECORDS SUMMARY | 2024-02-24 16:57 | XMS_ITS | Data Portability ---
Author Organization [place] - [facility], Main Office Address [address] [place] [address] Assessment No assessment recorded. Plan of Treatment Reminders Order Date Submit Date Provider Last Modified By Organization Details Last Modified Time Details Appointments None recorded. Lab lipid panel, serum 2022 024 [facility], [address], [place], [address], 4 18:33:17 HbA1c (hemoglobin A1c), blood 2022 024 [email or web address] [facility], [address], [place], [address], 4 18:33:17 CBC w/ auto diff 2022 024 [email or web address] [facility], [address], [place], [address], 4 18:33:16 CMP, serum or plasma 2022 024 [email or web address] [facility], [address], [place], [address], 4 18:33:16 TSH + free T4, serum 2022 024 [facility], [address], [place], [address], 4 18:33:16 vitamin B12 + folate, serum or blood 2022 024 [email or web address] [facility], [address], [place], [address], 4 18:33:17 Referral None recorded. Procedures None recorded. Surgeries None recorded. Imaging None recorded. Medication Orders benzonatate 200 mg capsule 2022 [email or web address] [place] [address] Pharmacy 4878, [address], [place], [address], 3 11:58:43 prednisone 50 mg tablet 2022 [email or web address] [place] [address] Pharmacy 4878, [address], [place], [address], 3 11:59:13 hydrocodone 10 mg-chlorphe niramine 8 mg/5 mL oral susp extend.rel 12hr 2022 [email or web address] [place] [address] Pharmacy 4878, [address], [place], [address], 3 11:58:55 azithromyci n 250 mg tablet 2022 [email or web address] [place] [address] Pharmacy 48, [address] [place], [address], 3 11:58:35 albuterol sulfate 2.5 mg/3 mL (0.083 %) solution for nebulizatio n 2022 023 [facility], [address] [place], [address], 3 11:34:03 losartan 100 mg tablet 2023 024 [facility], [address] [place], [address], 15:48:54 Patient TargetsNo targets recorded. Patient InstructionsNo instructions recorded. Reason for Referral None Reported. Results Created Date Observation Date Name Description Value Unit Range Abnormal Flag Note LastModifiedBy Organization Detail LastModifiedTime 11/08/1911/08/2022 IRON, TIBC AND RAJEEV TIN PANEL iron, total 71 mcg/d L 40-190 normal Not Available [address], [address], 11/08/2022 15:27:43 11/08/19 23 11/08/2022 IRON, TIBC AND RAJEEV TIN PANEL iron binding capacity 254 mcg/d L_(ca lc) 250-45 0 normal Not Available [address], [address], 11/08/2022 15:27:43 11/08/19 23 11/08/2022 IRON, TIBC AND RAJEEV TIN PANEL % saturation 28 %_(ca lc) 16-45 normal Not Available [address], [address], 11/08/2022 15:27:43 11/08/1911/08/2022 IRON, TIBC AND RAJEEV TIN PANEL ferritin 60 NG/mL 16-232 normal Not Available [address], [address], 11/08/2022 15:27:43 11/08/1911/08/2022 TSH+F REE T4 TSH 0.76 mIU/L normal Refer ence Range > or = 20 Years 0.40- 4.50 Pregn roslyn Range s First trime ster 0.26- 2.66 Secon d trime ster 0.55- 2.73 Third trime ster 0.43- 2.91 Not Available [address], [address], 11/08/2022 15:27:44 11/08/19 23 11/08/2022 TSH+F REE T4 T4, free 1.0 NG/dL 0.8-1. 8 normal Not Available [facility] [place] [address] [place], [address], 11/08/2022 15:27:44 11/08/19 23 11/08/2022 LIPID PANEL WITH RATIO S cholesterol, total 181 mg/dL <200 normal Not Available [facility] [place] [address] [place], [address], 11/08/2022 15:27:44 11/08/19 23 11/08/2022 LIPID PANEL WITH RATIO S HDL cholesterol 43 mg/dL > or = 50 low Not Available [facility] [address], [address], 11/08/2022 15:27:44 11/08/19 23 11/08/2022 LIPID PANEL WITH RATIO S triglyceride s 163 mg/dL <150 high Not Available [address], [address], 11/08/2022 15:27:44 11/08/19 23 11/08/2022 LIPID PANEL WITH RATIO S LDL-choleste rol 110 mg/dL _(garima c) high Refer ence range : <100 Jose able range <100 mg/dL for prima ry preve ntion ; <70 mg/dL for patie nts with CHD or diabe tic patie nts with > or = 2 CHD risk facto rs. LDL-C is now calcu lated using the Gilda n-Hop kins calcu randi n, which is a valid ated novel metho d lizyi maxine mehta accur acy than the Fried ananda equat ion in the estim ation of LDL-C . Gilda james SS et al. SEAN. 2013; 310(1 9): 2061- 2068 (http ://ed ucati on.Qu Booker encarnacionCREOpoints. com/f aq/FA Q164) Not Available [facility] [place] [address] [place], [address], 11/08/2022 15:27:44 11/08/19 23 11/08/2022 LIPID PANEL WITH RATIO S chol/HDLC ratio 4.2 (calc ) <5.0 normal Not Available [address], [address], 11/08/2022 15:27:44 11/08/19 23 11/08/2022 LIPID PANEL WITH RATIO S LDL/HDL ratio 2.6 (calc ) Below avera ge Risk: <2.34 [place] ge Risk: 2.35- 4.12 Moder ate Risk: 4.13- 5.56 High Risk: >5.57 Not Available [address], [address], 11/08/2022 15:27:44 11/08/19 23 11/08/2022 LIPID PANEL WITH RATIO S non HDL cholesterol 138 mg/dL _(garima c) <130 high For patie nts with diabe denita plus 1 major ASCVD risk facto r, treat ing to a non-H DL-C goal of <100 mg/dL (LDL- C of <70 mg/dL ) is consi daniela a lela pepancho c optio n. Not Available [address], [address], 11/08/2022 15:27:44 11/08/19 23 11/08/2022 COMPR EHENS MAGGIE METAB OLIC PANEL glucose 90 mg/dL 65-99 normal Fasti ng refer ence inter gem Not Available [address] [place], [address], 11/08/2022 15:27:45 11/08/19 23 11/08/2022 COMPR EHENS MAGGIE METAB OLIC PANEL urea nitrogen (BUN) 16 mg/dL 7-25 normal Not Available [address], [address], 11/08/2022 15:27:45 11/08/19 23 11/08/2022 COMPR EHENS MAGGIE METAB OLIC PANEL creatinine 0.69 mg/dL 0.50-0 .99 normal Not Available [address], [address], 11/08/2022 15:27:45 11/08/19 23 11/08/2022 COMPR EHENS MAGGIE METAB OLIC PANEL eGFR 112 mL/mi n/1.7 3m2 > or = 60 normal Not Available [address], [address], 11/08/2022 15:27:45 11/08/19 23 11/08/2022 COMPR EHENS MAGGIE METAB OLIC PANEL BUN/creatini ne ratio SEE NOTE: (calc ) 6-22 Not Repor erika: BUN and Creat inine are withi n refer ence range . Not Available [address], [address], 11/08/2022 15:27:45 11/08/19 23 11/08/2022 COMPR EHENS MAGGIE METAB OLIC PANEL sodium 139 mmol/ L 135-14 6 normal Not Available [address], [address], 11/08/2022 15:27:45 11/08/19 23 11/08/2022 COMPR EHENS MAGGIE METAB OLIC PANEL potassium 4.7 mmol/ L 3.5-5. 3 normal Not Available [address], [address], 11/08/2022 15:27:45 11/08/19 23 11/08/2022 COMPR EHENS MAGGIE METAB OLIC PANEL chloride 106 mmol/ L 98-110 normal Not Available [address], [address], 11/08/2022 15:27:45 11/08/19 23 11/08/2022 COMPR EHENS MAGGIE METAB OLIC PANEL carbon dioxide 27 mmol/ L 20-32 normal Not Available [address], [address], 11/08/2022 15:27:45 11/08/19 23 11/08/2022 COMPR EHENS MAGGIE METAB OLIC PANEL calcium 9.4 mg/dL 8.6-10 .2 normal Not Available [address], [address], 11/08/2022 15:27:45 11/08/19 23 11/08/2022 COMPR EHENS MAGGEI METAB OLIC PANEL protein, total 6.4 g/dL 6.1-8. 1 normal Not Available [address], [address], 11/08/2022 15:27:45 11/08/19 23 11/08/2022 COMPR EHENS MAGGIE METAB OLIC PANEL albumin 4.4 g/dL 3.6-5. 1 normal Not Available [address], [address], 11/08/2022 15:27:45 11/08/19 23 11/08/2022 COMPR EHENS MAGGIE METAB OLIC PANEL globulin 2.0 g/dL_ (calc ) 1.9-3. 7 normal Not Available [address], [address], 11/08/2022 15:27:45 11/08/19 23 11/08/2022 COMPR EHENS MAGGIE METAB OLIC PANEL albumin/glob ulin ratio 2.2 (calc ) 1.0-2. 5 normal Not Available [address], [address], 11/08/2022 15:27:45 11/08/19 23 11/08/2022 COMPR EHENS MAGGIE METAB OLIC PANEL bilirubin, total 0.3 mg/dL 0.2-1. 2 normal Not Available [address], [address], 11/08/2022 15:27:45 11/08/19 23 11/08/2022 COMPR EHENS MAGGIE METAB OLIC PANEL alkaline phosphatase 65 U/L 31-125 normal Not Available [facility] [place] [address] [place], [address], 11/08/2022 15:27:45 11/08/19 23 11/08/2022 COMPR EHENS MAGGIE METAB OLIC PANEL AST 21 U/L 10-30 normal Not Available [facility] [place] [address] [place], [address], 11/08/2022 15:27:45 11/08/19 23 11/08/2022 COMPR EHENS MAGGIE METAB OLIC PANEL ALT 32 U/L 6-29 high Not Available [facility] [place] [address] [place], [address], 11/08/2022 15:27:45 11/08/19 23 11/08/2022 HEMOG LOBIN A1C hemoglobin A1C 5.3 %_of_ total _HGB <5.7 normal For the purpo se of screericka patrickg for the prese nce of diabe denita: <5.7% Consi stent with the absen ce of diabe denita 5.7-6 .4% Consi stent with incre ased risk for diabe denita (pred iabet es) > or =6.5% Consi stent with diabe denita This assay resul t is consi stent with a decre ased risk of diabe denita. Curre ntly, no conse nsus exist s antoinette goodman use of hemog lobin A1c for diagn osis of diabe denita in [place]. Accor ding to Ameri can Diabe denita Assoc iatio n (ADA) guide lines , hemog lobin A1c <7.0% repre sents optim al contr ol in non-p regna nt diabe tic patie nts. Diffe rent metri cs may apply to speci fic patie nt popul ation s. Stand ards of Medic al Care in Diabe denita(A DA). Not Available [facility] [place] [address] [place], [address], 11/08/2022 15:27:46 11/08/19 23 11/08/2022 VITAM IN D,25- OH,TO MEAGHAN,I A vitamin D,25-oh,tota l,ia 80 NG/mL 30-100 normal Vitam in D Statu s 25-OH Vitam in D: Defic iency : <20 ng/mL Insuf ficie ncy: 20 - 29 ng/mL Optim al: > or = 30 ng/mL For 25-OH Vitam in D testi ng on patie nts on D2-willis pplem entat ion and patie nts for whom quant itati on of D2 and D3 fract ions is requi red, the [facility] Ass[facility] eD(TM ) 25-OH VIT D, (D2,D 3), LC/MS /MS is recom kaiser d: order code 47306 (jonathan ents >2yrs ). See Note 1 Note 1 For addit ional infor devon jarvis e refer to http: //[facility] Reedia gnost ics.c om/fa q/FAQ 199 (This link is being provi ded for infor salena betancur/ david rees purpo ses only. ) Not Available [address], [address], 11/08/2022 15:27:47 11/08/19 23 11/08/2022 MAGNE SIUM magnesium 2.3 mg/dL 1.5-2. 5 normal Not Available [address], [address], 11/08/2022 15:27:48 11/08/19 23 11/08/2022 CBC (INCL UDES DIFF/ PLT) white blood cell count 7.6 thous and/u L 3.8-10 .8 normal Not Available [address], [address], 11/08/2022 15:27:48 11/08/19 23 11/08/2022 CBC (INCL UDES DIFF/ PLT) red blood cell count 4.76 santiago on/uL 3.80-5 .10 normal Not Available [address], [address], 11/08/2022 15:27:48 11/08/19 23 11/08/2022 CBC (INCL UDES DIFF/ PLT) hemoglobin 14.5 g/dL 11.7-1 5.5 normal Not Available [address], [address], 11/08/2022 15:27:48 11/08/19 23 11/08/2022 CBC (INCL UDES DIFF/ PLT) hematocrit 44.1 % 35.0-4 5.0 normal Not Available [address], [address], 11/08/2022 15:27:48 11/08/19 23 11/08/2022 CBC (INCL UDES DIFF/ PLT) MCV 92.6 fL 80.0-1 00.0 normal Not Available [address], [address], 11/08/2022 15:27:48 11/08/19 23 11/08/2022 CBC (INCL UDES DIFF/ PLT) MCH 30.5 pg 27.0-3 3.0 normal Not Available [address], [address], 11/08/2022 15:27:48 11/08/19 23 11/08/2022 CBC (INCL UDES DIFF/ PLT) MCHC 32.9 g/dL 32.0-3 6.0 normal Not Available [address], [address], 11/08/2022 15:27:48 11/08/19 23 11/08/2022 CBC (INCL UDES DIFF/ PLT) RDW 12.6 % 11.0-1 5.0 normal Not Available [address], [place], [address], 11/08/2022 15:27:48 11/08/19 23 11/08/2022 CBC (INCL UDES DIFF/ PLT) platelet count 253 thous and/u L 140-40 0 normal Not Available [address], [address], 11/08/2022 15:27:48 11/08/19 23 11/08/2022 CBC (INCL UDES DIFF/ PLT) MPV 9.4 fL 7.5-12 .5 normal Not Available [facility] [address], [address], 11/08/2022 15:27:48 11/08/19 23 11/08/2022 CBC (INCL UDES DIFF/ PLT) absolute neutrophils 4438 cells /uL 1500-7 800 normal Not Available [address], [address], 11/08/2022 15:27:48 11/08/19 23 11/08/2022 CBC (INCL UDES DIFF/ PLT) absolute lymphocytes 2348 cells /uL 850-39 00 normal Not Available [address], [address], 11/08/2022 15:27:48 11/08/19 23 11/08/2022 CBC (INCL UDES DIFF/ PLT) absolute monocytes 540 cells /uL 200-95 0 normal Not Available [address], [address], 11/08/2022 15:27:48 11/08/19 23 11/08/2022 CBC (INCL UDES DIFF/ PLT) absolute eosinophils 190 cells /uL 15-500 normal Not Available [address], [address], 11/08/2022 15:27:48 11/08/19 23 11/08/2022 CBC (INCL UDES DIFF/ PLT) absolute basophils 84 cells /uL 0-200 normal Not Available [address], [address], 11/08/2022 15:27:48 11/08/19 23 11/08/2022 CBC (INCL UDES DIFF/ PLT) neutrophils 58.4 % normal Not Available [address], [address], 11/08/2022 15:27:48 11/08/19 23 11/08/2022 CBC (INCL UDES DIFF/ PLT) lymphocytes 30.9 % normal Not Available [address], [address], 11/08/2022 15:27:48 11/08/19 23 11/08/2022 CBC (INCL UDES DIFF/ PLT) monocytes 7.1 % normal Not Available [address], [address], 11/08/2022 15:27:48 11/08/19 23 11/08/2022 CBC (INCL UDES DIFF/ PLT) eosinophils 2.5 % normal Not Available [address], [address], 11/08/2022 15:27:48 11/08/19 23 11/08/2022 CBC (INCL UDES DIFF/ PLT) basophils 1.1 % normal Not Available [address], [address], 11/08/2022 15:27:48 11/08/19 23 11/08/2022 VITAM IN B12/F OLATE , SERUM PANEL vitamin B12 814 pg/mL 200-11 00 normal Not Available [address], [address], 11/08/2022 15:27:49 11/08/19 23 11/08/2022 VITAM IN B12/F OLATE , SERUM PANEL folate, serum 15.2 NG/mL normal Refer ence Range Low: <3.4 Borde rline : 3.4-5 .4 Debi l: >5.4 Not Available [email or web address] [facility] [address] [place], [address], 11/08/2022 15:27:49 11/03/19 22 10/25/2021 MRI, lumba r spine , w/o contr ast No observ ation record ed. [id number] [facility]: Pulmonology 1 [facility], [place], [address], 05/09/2022 17:01:28 11/03/19 22 10/26/2021 moo nuous elect roenc ephal ogram with video No observ ation record ed. [id number] Not Available 05/09/2022 17:01:28 11/30/19 22 11/27/2021 CT, head, w/o contr ast No observ ation record ed. [id number] Not Available 05/09/2022 17:01:28 01/03/20 22 01/02/2022 US, duple x, renal arter y No observ ation record ed. [id number] [facility] 1 [facility], [place], [address], 05/09/2022 17:01:28 01/18/20 22 11/27/2021 CT, head, w/o contr ast No observ ation record ed. [id number] [facility], [place], [address], 05/09/2022 17:01:28 06/05/19 23 05/14/2022 event monit or No observ ation record ed. [email or web address] Not Available 2022 13:56:17 11/02/19 23 11/01/2022 upper endos copy proce dure (EGD) (PROC ) No observ ation record ed. [email or web address] Not Available 2022 08:59:56 03/20/19 24 03/19/2023 MRI, brain + brain stem, w/wo contr ast No observ ation record ed. [email or web address] [facility]: Pulmonology [address], [place], [address], 03/21/2023 16:35:04 Result Notes None recorded. Problems Name Problem SNOMED Code Status Onset Date Resolution Date Notes Provider Name and Address Organization Details Recorded Time Intermittent palpitations 742629913 Active 2022 Not Available [facility] 3 17:54:24 Viral gastroenterit is 882417388 Active Not Available [facility] 3 17:54:24 Benign essential hypertension 0506963 Active Not Available [facility] 3 17:54:24 Injury of hand 772952412 Active Not Available [facility] 3 17:54:24 Acute sinusitis 73249485 Active Not Available [facility] 3 17:54:24 Body mass index 30+ - obesity 300003245 Active 2021 Not Available [facility] 3 17:54:24 Nausea and vomiting 00108446 Active Not Available [facility] 3 17:54:24 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 2 diabetes mellitus Active 2021 Not Available [facility] 3 17:54:24 Asthma 207220183 Active Not Available [facility] 3 17:54:24 Claustrophobi a 11918542 Active Not Available [facility] 3 17:54:24 Generalized anxiety disorder 97646404 Active Not Available [facility] 3 17:54:24 Panic attack 860750808 Active Not Available [facility] 3 17:54:24 Gastroesophag eal reflux disease 174684583 Active Not Available [facility] 3 17:54:24 Bezoar 627198570 Active Not Available [facility] 3 17:54:24 Microalbuminu apolonia diabetic nephropathy 633152767 Active Not Available [facility] 3 17:54:24 Long-term drug therapy Active 2021 Not Available [facility] 3 17:54:24 Mixed hyperlipidemi a 639002745 Active Not Available [facility] 3 17:54:24 Eruption 831887091 Active Not Available [facility] 3 17:54:24 Foot joint pain 963041228 Active Not Available [facility] 3 17:54:24 Vitamin D deficiency 90746965 Active Not Available [facility] 3 17:54:24 Major depressive disorder 533564010 Active Not Available [facility] 3 17:54:24 Dyslipidemia 335221027 Active Not Available [facility] 3 17:54:24 Migraine 13449368 Active Not Available [facility] 3 17:54:24 Headache following lumbar puncture 021284267 Active 2021 Not Available [facility] 3 17:54:24 Body mass index 40+ - severely obese 239683341 Active Not Available [facility] 3 17:54:24 Cyst of pineal gland 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 Active Not Available [facility] 3 17:54:24 Vomiting 858412312 Active Not Available [facility] 3 17:54:24 Chronic recurrent sinusitis 552925686 Active Not Available [facility] 3 17:54:24 Uncontrolled type 2 diabetes mellitus 466404421 Active Not Available [facility] 3 17:54:24 Well controlled type 2 diabetes mellitus 226977992 Active 2021 Not Available [facility] 3 17:54:24 Anxiety 64988752 Active Not Available [facility] 3 17:54:24 Sinus headache 0259429 Active Not Available [facility] 3 17:54:24 Cough 28322420 Active Not Available [facility] 3 17:54:24 Stomach cramps 29168424 Active Not Available [facility] 3 17:54:24 Keratosis pilaris 6306404 Active Not Available [facility] 3 17:54:25 Injury of finger 71125160 Active Not Available [facility] 3 17:54:25 Hyperlipidemi a 52666112 Active Not Available [facility] 3 17:54:25 Carpal tunnel syndrome 92469897 Active Not Available [facility] 3 17:54:25 Occult blood detected in feces 56882079 Active Not Available [facility] 3 17:54:25 History of bariatric surgical procedure 039008816 Active 2021 Not Available [facility] 3 17:54:25 Diarrhea 92195855 Active Not Available [facility] 3 17:54:25 Acute stress disorder 64339308 Active Not Available [facility] 3 17:54:25 Mild anxiety 99067052 Active Not Available [facility] 3 17:54:25 Posterior rhinorrhea 81803437 Active Not Available [facility] 3 17:54:25 Irregular periods 67347700 Active 2021 Not Available [facility] 3 17:54:25 Mild major depression 51468441 Active Not Available [facility] 3 17:54:25 Disorder of vision 11516215 Active 2021 Not Available [facility] 3 17:54:25 Conjunctiviti s 3878150 Active Not Available [facility] 3 17:54:25 COVID-19 277247755 Active 2022 Not Available [facility] 3 17:54:25 Postviral cough 138611221 Active 2022 DELMER Ardon [address], [address], [place], [address] , [facility] [employer] [facility] 3 16:16:20 Tachycardia 4422230 Active 2022 DELMER Ardon [address], [address], [place], [address] , [facility] 3 16:12:16 Facial paresthesia 39584654 Active 2023 DELMER Ardon [address], [address], [place], [address] , [place] [facility] [employer] [facility] 18:40:14 Notes:COVID pos 06/03/22 Problem Notes None recorded. Procedures Surgical History Date Name Laterality Status Provider Name and Address Organization Details Recorded Time 11/06/19 17 Date of Last Colonoscopy completed Not Available [facility] 05/09/2022 16:57:30 11/06/19 17 colonoscopy completed Not Available [facility] 05/10/19 16:57:30 08/04/19 16 ENT Surgery completed Not Available [facility] 05/10/19 16:57:30 ENT Surgery completed Not Available [facility] 05/09/2022 16:57:30 incision and drainage of wound completed Not Available [facility] 16:57:30 other completed Not Available [facility] 03/2022 16:57:30 Tonsillectomy and/or Adenoidectomy completed Not Available [facility] 05/09/2022 16:57:30 Imaging Results Imaging Date Name Status LastModified by Organization Details LastModified Time 11/27/2021 CT, head, w/o contrast completed [id number] Information not available 05/09/2022 17:01:28 11/27/2021 CT, head, w/o contrast completed [id number] [place], [address], 05/09/2022 17:01:28 01/02/2022 US, duplex, renal artery completed [id number], [address], 05/09/2022 17:01:28 10/25/2021 MRI, lumbar spine, w /o contrast completed [id number] [facility]: Pulmonology [address] [place], [address], 05/09/2022 17:01:28 10/26/2021 continuous electroencephalogram with video completed [id number] Information not available 05/09/2022 17:01:28 05/14/2022 event monitor completed Information not available 07/12/2022 13:56:17 11/01/2022 upper endoscopy procedure (EGD) (PROC) completed Information not available 12/28/2022 08:59:56 03/19/2023 MRI, brain + brain stem, w/wo contrast completed [email or web address] [facility]: Pulmonology 1 [facility], [place], [address], 03/21/2023 16:35:04 Procedure Notes None recorded. Medical Equipment None Reported. Allergies No known drug allergies Medications Name Sig Start Date Stop Date Status Note LastModified by Organization Details LastModified Time losartan 50 mg tablet TAKE 1 TABLET BY MOUTH ONCE DAILY 03/15 completed Not Available Not Available Not Available amoxicill in 500 mg capsule TAKE 1 CAPSULE BY MOUTH THREE TIMES A DAY UNTIL GONE active Not Available Not Available No t Available atorvasta tin 40 mg tablet TAKE 1 TABLET BY MOUTH ONCE DAILY WITH DINNER active Not Available Not Available No t Available metformin 500 mg tablet Take 1 tablet twice a day by oral route with meals. active Not Available Not Available No t Available hydrocodo ne 7.5 mg-ibupro fen 200 mg tablet 03/13 completed Not Available Not Available Not Available rabeprazo le 20 mg tablet,de layed release TAKE 1 TABLET BY MOUTH TWICE DAILY active Not Available Not Available No t Available doxycycli ne hyclate 100 mg capsule TAKE 1 CAPSULE BY MOUTH ONCE DAILY active Not Available Not Available No t Available cefuroxim e axetil 250 mg tablet TK 1 T PO BID 05/04 completed Not Available Not Available Not Available atorvasta tin 20 mg tablet TAKE 1 TABLET BY MOUTH EVERY DAY IN THE EVENING 05/04 completed Not Available Not Available Not Available lamotrigi ne 200 mg tablet TAKE 1 TABLET BY MOUTH EVERY DAY 05/03 completed Not Available Not Available Not Available ipratropi um 0.5 mg-albute rol 3 mg (2.5 mg base)/3 mL nebulizat ion soln Inhale 3 mL 4 times a day by nebuliza tion route as needed. 08/10 completed Not Available Not Available Not Available clindamyc in HCl 300 mg capsule 03/25 completed Not Available Not Available Not Available albuterol sulfate 2.5 mg/3 mL (0.083 %) solution for nebulizat ion USE 1 VIAL IN NEBULIZE R EVERY 6 HOURS NEEDED active Not Available Not Available No t Available trazodone 50 mg tablet TAKE 1 TO 2 TABLETS BY MOUTH ONCE DAILY AT NIGHT active Not Available Not Available No t Available Sulfatrim 200 mg-40 mg/5 mL oral suspensio n Take 20 mL every 12 hours by oral route. 05/03 completed Not Available Not Available Not Available Pneumovax -23 25 mcg/0.5 mL injection solution INJECT 0.5 ML INTRAMUS CULARLY DIRECTED . active Not Available Not Available No t Available Maxalt-ML T 10 mg disintegr ating tablet take one tablet po at onset of migraine . may repeat after 2 hours if needed. max of 2 tabs/24 hrs 08/21 completed Not Available Not Available Not Available azithromy estelle 250 mg tablet TAKE 2 TABLETS BY MOUTH ON DAY 1, AND THEN TAKE 1 TABLET BY MOUTH ONCE A DAY ON DAY 2 THROUGH DAY 5 12/27 completed Not Available Not Available Not Available fluconazo le 150 mg tablet 09/15 completed Not Available Not Available Not Available benzonata te 200 mg capsule TAKE 1 CAPSULE BY MOUTH THREE TIMES DAILY 12/27 completed Not Available Not Available Not Available Xanax 2 mg tablet Take 1 tablet as needed by oral route. 06/21 completed Not Available Not Available Not Available amoxicill in 250 mg-potass ium clavulana te 62.5 mg/5 mL oral suspensio n Take 10 mL every 12 hours by oral route for 7 days. 05/02 completed Not Available Not Available Not Available hydrocodo ne 5 mg-acetam inophen 325 mg tablet as needed active Not Available Not Available No t Available Cheratuss in DAC 30 mg-10 mg-100 mg/5 mL oral syrup Take 5 mL every 6 hours by oral route. active Not Available Not Available No t Available promethaz ine 6.25 mg/5 mL oral syrup 12/27 completed Not Available Not Available Not Available lisinopri l 20 mg tablet TAKE 1 TABLET BY MOUTH EVERY DAY 11/29 completed Not Available Not Available Not Available ondansetr on HCl 4 mg tablet take 1-2 tablets po q6 hours PRN nausea/v omiting. 09/15 completed Not Available Not Available Not Available prednison e 20 mg tablet TK 2 TS PO D FOR 5 DAYS 06/11 completed Not Available Not Available Not Available clonazepa m 0.5 mg tablet TAKE 1 TABLET BY MOUTH TWICE DAILY active Not Available Not Available No t Available rizatript an 10 mg tablet TAKE 1 TABLET BY MOUTH AT ONSET OF HEADACHE . MAY REPEAT AFTER 2 HOURS. MAX 2 PER DAY active Not Available Not Available No t Available sertralin e 100 mg tablet TAKE 1 TABLET BY MOUTH EVERYDAY AT BEDTIME 06/21 completed Not Available Not Available Not Available Zantac 300 mg tablet Take 2 tablets every day by oral route. 05/24 completed for acid reflux Not Available Not Available Not Available clonazepa m 1 mg tablet 10/29 completed Not Available Not Available Not Available methylpre dnisolone 4 mg tablet active Not Available Not Available Not Available moxifloxa estelle 400 mg tablet TK 1 T PO QD active Not Available Not Available No t Available clindamyc in HCl 150 mg capsule 02/13 completed Not Available Not Available Not Available penicilli n V potassium 500 mg tablet TK 1 T PO QID TAT WF active Not Available Not Available No t Available topiramat e 25 mg tablet 03/13 completed Not Available Not Available Not Available metronida zole 500 mg tablet TAKE 1 TABLET BY MOUTH TWICE A DAY UNTIL FINISHED active Not Available Not Available No t Available phentermi ne 37.5 mg tablet TAKE 1 TABLET BY MOUTH ONCE DAILY BEFORE BREAKFAS T active Not Available Not Available No t Available acetamino phen 300 mg-codein e 30 mg tablet TK 1 T PO Q 4 H PRN P active Not Available Not Available No t Available prochlorp erazine maleate 10 mg tablet TAKE 1 TABLET BY MOUTH EVERY 6 HORUS NEEDED FOR NAUSEA active Not Available Not Available No t Available sulfameth oxazole 800 mg-trimet hoprim 160 mg tablet Take 1 tablet every 12 hours by oral route. active Not Available Not Available No t Available peg-elect rolyte solution 420 gram oral solution FOLLOW THE INSTRUCT IONS FROM DR. ROBLEDO OFFICE. DO NOT FOLLOW THE INSTRUCT IONS ON BOTTLE. 12/28 completed Not Available Not Available Not Available triamcino lone acetonide 0.1 % topical cream APPLY A THIN LAYER TO THE AFFECTED AREA(S) arms/leg s/abdome n BY TOPICAL ROUTE 2 TIMES PER DAY active Not Available Not Available No t Available glimepiri de 2 mg tablet TAKE 2 TABLETS BY MOUTH TWICE DAILY WITH MEALS active Not Available Not Available No t Available ondansetr on 8 mg disintegr ating tablet DISSOLVE ONE TABLET IN MOUTH EVERY 8 HOURS NEEDED 05/04 completed Not Available Not Available Not Available fenofibra te micronize d 134 mg capsule Take 1 capsule every day by oral route at bedtime. active Not Available Not Available No t Available glimepiri de 1 mg tablet TK 1 T PO QD. active Not Available Not Available No t Available lamotrigi ne 25 mg tablet TAKE 1 TAB DAILY FOR 2 WEEKS, THEN 2 TABLETS DAILY FOR 2 WEEKS, THEN 4 TABLETS DAILY active Not Available Not Available No t Available nitrofura ntoin 25 mg/5 mL oral suspensio n Take 20 mL twice a day by oral route. 05/03 completed Not Available Not Available Not Available ketorolac 10 mg tablet Take 1 tablet every 6 hours by oral route as needed for 5 days. 05/04 completed Not Available Not Available Not Available ketorolac 0.5 % eye drops INSTILL 1 DROP INTO EACH EYE 4 TIMES DAILY 12/28 completed Not Available Not Available Not Available Nexium 20 mg capsule,d elayed release Take 1 capsule every day by oral route. 08/10 completed Not Available Not Available Not Available carbamaze pine 200 mg tablet TAKE 1/2 (ONE-MISSY F) TABLET BY MOUTH THREE TIMES DAILY active Not Available Not Available No t Available oxycodone -acetamin ophen 5 mg-325 mg tablet 09/15 completed Not Available Not Available Not Available bupropion HCl 100 mg tablet TAKE 1 TABLET BY MOUTH TWICE DAILY active Not Available Not Available No t Available alprazola m 0.5 mg tablet 05/31 completed Not Available Not Available Not Available ofloxacin 0.3 % ear drops INSTILL 5 DROPS INTO RIGHT EAR TWICE DAILY FOR 7 DAYS 05/04 completed Not Available Not Available Not Available amoxicill in 875 mg tablet Take 1 tablet every 12 hours by oral route. active Not Available Not Available No t Available citalopra m 20 mg tablet Take 1 tablet every day by oral route. active Not Available Not Available No t Available ziprasido ne 20 mg capsule TAKE 1 CAPSULE BY MOUTH TWICE A DAY 05/03 completed Not Available Not Available Not Available famotidin e 20 mg tablet TAKE 1 TABLET BY MOUTH TWICE A DAY active Not Available Not Available No t Available lorazepam 0.5 mg tablet TAKE 1 2 TABLETS BY MOUTH EVERY DAY NEEDED FOR PANIC ATTACKS active Not Available Not Available No t Available metoclopr amide 5 mg tablet 05/18 completed Not Available Not Available Not Available Humalog U-100 Insulin 100 unit/mL subcutane ous solution INJECT UP TO 100 UNITS DAILY VIA INSULIN PUMP active Not Available Not Available No t Available OneTouch Ultra Test strips USE DIRECTED THREE TIMES DAILY active Not Available Not Available No t Available dexametha sone 1 mg tablet TAKE 1 TABLET BY MOUTH WHEN DIRECTED 08/10 completed Not Available Not Available Not Available lorazepam 2 mg tablet active Not Available Not Available Not Available lithium carbonate 300 mg capsule TK ONE C PO TID active Not Available Not Available No t Available benzonata te 100 mg capsule 03/13 completed Not Available Not Available Not Available pantopraz ole 40 mg tablet,de layed release TAKE 1 BY MOUTH TWICE DAILY active Not Available Not Available No t Available simvastat in 20 mg tablet TK 1 T PO QPM active Not Available Not Available No t Available hyoscyami ne sulfate 0.125 mg tablet TAKE 1 TABLET BY MOUTH FOUR TIMES A DAY active Not Available Not Available No t Available tobramyci n 0.3 % eye drops Instill by ophthalm ic route as needed for 5 days. active Not Available Not Available No t Available triamcino lone acetonide 0.1 % topical ointment APPLY OINTMENT TOPICALL Y TO THE AFFECTED AREA(S) THREE TIMES DAILY active Not Available Not Available No t Available nystatin 100,000 unit/gram topical cream APPLY TO THE AFFECTED AREA(S) BY TOPICAL ROUTE 2 TIMES PER DAY PRN rash active Not Available Not Available No t Available buspirone 10 mg tablet take Half to One tablet PO BID active pt stopped due to vomittin g Not Available Not Available Not Available clotrimaz ole-betam ethasone 1 %-0.05 % topical cream 05/24 completed Not Available Not Available Not Available prednison e 50 mg tablet TAKE 1 TABLET BY MOUTH ONCE DAILY FOR 5 DAYS 12/27 completed Not Available Not Available Not Available carbamaze pine 100 mg chewable tablet CHEW AND SWALLOW 1 TABLET BY MOUTH THREE TIMES DAILY active Not Available Not Available No t Available promethaz ine 25 mg tablet TAKE 1 TABLET BY MOUTH EVERY 6 HOURS NEEDED active Not Available Not Available No t Available polymyxin B sulfate 10,000 unit-trim ethoprim 1 mg/mL eye drops 02/12 completed Not Available Not Available Not Available Advair Diskus 250 mcg-50 mcg/dose powder for inhalatio n INHALE 1 DOSE BY MOUTH TWICE DAILY active Not Available Not Available No t Available nystatin- triamcino lone 100,000 unit/g-0. 1 % topical cream APPLY TO THE AFFECTED AREA(S) BY TOPICAL ROUTE 2 TIMES PER DAY IN THEMORNI NG AND EVENING PRN rash flare up active Not Available Not Available No t Available hydrocort isone 2.5 % topical cream PRN 03/17 completed Not Available Not Available Not Available monteluka st 10 mg tablet TAKE 1 TABLET BY MOUTH ONCE DAILY active Not Available Not Available No t Available hydroxyzi ne HCl 25 mg tablet take 1-2 tabs po qhs active Not Available Not Available No t Available codeine 10 mg-guaife nesin 100 mg/5 mL oral liquid TAKE 10 ML BY MOUTH EVERY 4 HOURS NEEDED 06/27 completed Not Available Not Available Not Available topiramat e 200 mg tablet TAKE 1 TABLET BY MOUTH TWICE DAILY active Not Available Not Available No t Available mupirocin 2 % topical ointment 08/10 completed Not Available Not Available Not Available ziprasido ne 40 mg capsule 05/03 completed Not Available Not Available Not Available ergocalci ferol (vitamin D2) 1,250 mcg (50,000 unit) capsule TAKE 1 CAPSULE BY MOUTH ONCE A WEEK DIRECTED active Not Available Not Available No t Available Novolog U-100 Insulin aspart 100 unit/mL subcutane ous solution USE UP TO 160 UNITS DAILY USING INSULIN PUMP active Not Available Not Available No t Available Prometheg an 25 mg rectal supposito ry 03/17 completed Not Available Not Available Not Available lorazepam 1 mg tablet TAKE 1 TABLET FOUR TIMES A DAY NEEDED active Not Available Not Available No t Available azelastin e 137 mcg (0.1 %) nasal spray [place] 2 sprays every day by nasal route for 31 days. active She is off of them for a couple months. Not Available Not Available Not Available ibuprofen 600 mg tablet TAKE 1 TABLET BY MOUTH FOUR TIMES A DAY NEEDED active Not Available Not Available No t Available cefuroxim e axetil 500 mg tablet TK 1 T PO Q 12 H active Not Available Not Available No t Available levofloxa estelle 500 mg tablet Take 1 tablet every 24 hours by oral route. active Not Available Not Available No t Available levofloxa estelle 750 mg tablet 06/11 completed Not Available Not Available Not Available [place] 7.5 mg-325 mg tablet Take 1 tablet every 6-8 hours by oral route as needed. 06/19 completed Not Available Not Available Not Available zolpidem 10 mg tablet take one tab po as directed 03/17 completed Not Available Not Available Not Available scopolami ne 1 mg over 3 days transderm al patch 05/03 completed Not Available Not Available Not Available methylpre dnisolone 4 mg tablets in a dose pack take as directed 06/11 completed Not Available Not Available Not Available hydrocodo ne 10 mg-chlorp heniramin e 8 mg/5 mL oral susp extend.re l 12hr TAKE 5 ML BY MOUTH EVERY 12 HOURS 12/27 completed Not Available Not Available Not Available albuterol sulfate HFA 90 mcg/actua tion aerosol inhaler INHALE 2 PUFFS PO Q 4-6 H PRN active Not Available Not Available No t Available propranol ol 20 mg tablet TAKE 1 TABLET BY MOUTH TWICE DAILY active Not Available Not Available No t Available ziprasido ne 60 mg capsule Take 1 capsule every day by oral route for 30 days. 11/29 completed Not Available Not Available Not Available ondansetr on 4 mg disintegr ating tablet DISSOLVE 2 TABLETS IN MOUTH EVERY 8 HOURS NEEDED FOR NAUSEA AND FOR VOMITING active Not Available Not Available No t Available cefdinir 300 mg capsule Take 1 capsule every 12 hours by oral route. active Not Available Not Available No t Available topiramat e 100 mg tablet taking 400mg daily 03/17 completed Not Available Not Available Not Available losartan 100 mg tablet TAKE 1 TABLET BY MOUTH ONCE DAILY active Not Available Not Available No t Available fluticaso ne propionat e 50 mcg/actua tion nasal spray,[place] inhale 2 sprays each nostril daily active Not Available Not Available No t Available doxycycli ne hyclate 100 mg tablet TAKE 1 TABLET BY MOUTH ONCE DAILY 06/27 completed Not Available Not Available Not Available lamotrigi ne 100 mg tablet TAKE 1 TABLET BY MOUTH TWICE DAILY active Not Available Not Available No t Available risperido ne 0.5 mg tablet TAKE 1 TABLET TWICE A DAY (OR MAY TAKE AT NIGHT) active Not Available Not Available No t Available Microlet Lancet active Not Available Not Available Not Available diazepam 5 mg tablet TAKE 1 TABLET BY MOUTH THREE TIMES DAILY NEEDED active Not Available Not Available No t Available metoclopr amide 10 mg tablet 05/24 completed Not Available Not Available Not Available amoxicill in 875 mg-potass ium clavulana te 125 mg tablet Take 1 tablet every 12 hours by oral route. 02/12 completed Not Available Not Available Not Available amoxicill in 500 mg-potass ium clavulana te 125 mg tablet 05/24 completed Not Available Not Available Not Available oxycodone 5 mg tablet 05/24 completed Not Available Not Available Not Available enoxapari n 40 mg/0.4 mL subcutane ous syringe 05/03 completed Not Available Not Available Not Available bupropion HCl SR 200 mg tablet,12 hr sustained -release TK 1 T PO BID active Not Available Not Available No t Available Lexapro 10 mg tablet Take 1 tablet every day by oral route. active Not Available Not Available No t Available Novolog FlexPen U-100 Insulin aspart 100 unit/mL (3 mL) subcutane ous INJECT UP TO 44 UNITS 3 TIMES A DAY BEFORE MEALS active Not Available Not Available No t Available cyclobenz aprine 5 mg tablet 03/13 completed Not Available Not Available Not Available ketorolac 0.4 % eye drops INSTILL 1 DROP INTO EACH EYE 4 TIMES DAILY 05/04 completed Not Available Not Available Not Available bupropion HCl XL 150 mg 24 hr tablet, extended release TAKE 1 TABLET DAILY FOR 7 DAYS, THEN 2 TABLETS DAILY 05/03 completed Not Available Not Available Not Available hydrocodo ne 7.5 mg-acetam inophen 325 mg/15 mL oral solution TK 15ML PO Q 4 H PRN 05/03 completed Not Available Not Available Not Available eszopiclo ne 3 mg tablet TAKE 1 TABLET BY MOUTH ONCE DAILY AT BEDTIME active Not Available Not Available No t Available eszopiclo ne 2 mg tablet TAKE 1 TABLET BY MOUTH EVERY NIGHT AT BEDTIME 05/04 completed Not Available Not Available Not Available Boostrix Tdap 2.5 Lf unit-8 mcg-5 Lf/0.5 mL intramusc ular suspensio n INJECT 0.5 ML INTRAMUS CULARLY DIRECTED . active Not Available Not Available No t Available fenofibra te 160 mg tablet Take 1 tablet every day by oral route. 08/10 completed Not Available Not Available Not Available Compazine take 4 tablets daily PRN 06/19 completed Not Available Not Available Not Available Benadryl 2017 active Not Available Not Available Not Avai lable Sudafed will take 4 hour one if needed 05/18 completed Not Available Not Available Not Available trazodone takes one daily PRN 2015 active Not Available Not Available Not Avai lable clonazepa m 2014 active Not Available Not Available Not Avai lable BD Ultra-Fin e Short Pen Needle 31 gauge x 5/16 U A NEW PEN NEEDLE D UTD WITH INSULIN PEN active Not Available Not Available No t Available fenofibra te nanocryst allized 145 mg tablet Take 1 tablet every day by oral route. active Not Available Not Available No t Available Januvia 50 mg tablet TK 1 T PO QD active Not Available Not Available No t Available hydrochlo rothiazid e 12.5 mg tablet TK 1 T PO QAM active Not Available Not Available No t Available peg 3350 240 gram-elec trolytes 22.72 gram-6.72 g-5.84 g powdr for soln 03/13 completed Not Available Not Available Not Available lubiprost one 8 mcg capsule TAKE 1 CAPSULE BY MOUTH TWICE DAILY WITH MEALS active Not Available Not Available No t Available olopatadi ne 0.6 % nasal spray SPRAY 2 SPRAY(S) IN EACH NOSTRIL TWICE DAILY active Not Available Not Available No t Available ketorolac 30 mg/mL injection solution Inject 1 mL by intraven ous route. 10/[address] [facility] # [id number] Not Available Not Available Not Available asenapine 5 mg sublingua l tablet PLACE 1 TABLET UNDER THE TONGUE EACH MORNING AND 2 TABLETS EACH NIGHT 05/04 completed Not Available Not Available Not Available BD Ultra-Fin e Florina Pen Needle 32 gauge x 5/32 USE DIRECTED UP TO 7 TIMES DAILY active Not Available Not Available No t Available Sherri [employer]ergy 2017 active Not Available Not Available Not Avai lable Linzess 145 mcg capsule Take 1 capsule every day by oral route. active Not Available Not Available No t Available Auvi-Q 0.3 mg/0.3 mL injection , auto-inje ctor ADMINIST ER 0.3 MG IN THE MUSCLE 1 TIME 11/29 completed Not Available Not Available Not Available Farxiga 10 mg tablet TAKE 1 TABLET BY MOUTH ONCE DAILY active Not Available Not Available No t Available Levemir FlexTouch U-100 Insulin 100 unit/mL (3 mL) subcutane ous pen INJECT 50 UNITS UNDER THE SKIN NIGHTLY 05/03 completed Not Available Not Available Not Available Fluvirin [id number] (PF) 45 mcg (15 mcg x3)/0.5 mL intramusc ular syringe INJECT 0.5 ML INTRAMUS CULARLY DIRECTED . active Not Available Not Available No t Available Bydureon 2 mg/0.65 mL subcutane ous pen injector 05/24 completed Not Available Not Available Not Available Jardiance 25 mg tablet TAKE 1 TABLET BY MOUTH ONCE DAILY active Not Available Not Available No t Available Invokamet 150 mg-1,000 mg tablet TAKE 1 TABLET BY MOUTH TWICE DAILY WITH MEALS 05/24 completed Not Available Not Available Not Available Xigduo XR 5 mg-1,000 mg tablet,ex tended release 03/17 completed Not Available Not Available Not Available Soolantra 1 % topical cream APPLY A PEA SIZED AMOUNT TO RED AREAS ON THE FACE EVERY NIGHT AT BEDTIME active Not Available Not Available No t Available Flonase Allergy Relief 2 prays in each nostril 2014 active for allergie s Not Available Not Available Not Available Toujeo SoloStar U-300 Insulin 300 unit/mL (1.5 mL) subcutane ous pen INJECT 45-50 UNITS SUBCUTAN EOUSLY EVERY DAY DIRECTED . 08/13 completed Not Available Not Available Not Available Christoph SoloStar U-300 Insulin 40-45 units 08/13 completed Not Available Not Available Not Available Fluvirin [id number] (PF) 45 mcg (15 mcg x 3)/0.5 mL IM syringe active Not Available Not Available Not Available Tresiba FlexTouch U-200 insulin 200 unit/mL (3 mL) subcutane ous pen Inject 60 units every day by subcutan eous route at bedtime for 30 days. 01/27 completed Not Available Not Available Not Available Basaglar KwikPen U-100 Insulin 100 unit/mL (3 mL) subcutane ous INJECT UP TO 60 UNITS UNDER THE SKIN AT BEDTIME 03/17 completed Not Available Not Available Not Available Linzess 72 mcg capsule TAKE 1 CAPSULE BY MOUTH ONCE DAILY 12/28 completed Not Available Not Available Not Available Rhofade 1 % topical cream active Not Available Not Available Not Available Bydureon BCise 2 mg/0.85 mL subcutane ous auto-inje ctor Inject 2 mg every week by subcutan eous route with meals for 30 days. 06/21 completed Not Available Not Available Not Available Ozempic 0.25 mg or 0.5 mg (2 mg/1.5 mL) subcutane ous pen injector INJECT 1/2 (ONE-MISSY F) MG SUBCUTAN EOUSLY ONCE A WEEK 12/28 completed Not Available Not Available Not Available Dexcom G6 Sensor device REPLACE SENSOR DIRECTED EVERY 10 DAYS active Not Available Not Available No t Available Dexcom G6 Transmitt er device CHANGE EVERY 3 MONTHS DIRECTED active Not Available Not Available No t Available Omnipod Dash Pods (Gen 4) subcutane ous cartridge CHANGE EVERY 3 DAYS 12/28 completed Not Available Not Available Not Available Motegrity 2 mg tablet TAKE 1 TABLET BY MOUTH EVERY DAY 05/03 completed Not Available Not Available Not Available OneTouch Ultra2 Meter USE DIRECTED active Not Available Not Available No t Available OneTouch Delica Plus Lancet 33 gauge TEST THREE TIMES DAILY active Not Available Not Available No t Available Baqsimi 3 mg/actuat ion nasal spray USE 1 SPRAY INTO ONE NOSTRIL ONCE DIRECTED FOR LOW BLOOD SUGAR active Not Available Not Available No t Available Amzeeq 4 % topical foam active [...] Not Available Not Available No t Available ID NOW COVID-19 Test Kit TEST DIRECTED TODAY 05/03 completed Not Available Not Available Not Available FreeStyle Sofie 2 Sensor kit APPLY ONE NEW SENSOR EVERY 14 DAYS active Not Available Not Available No t Available FreeStyle Sofie 2 [place] USE TO SCAN BLOOD SUGAR 4 TIMES DAILY active Not Available Not Available No t Available Ozempic 1 mg/dose (4 mg/3 mL) subcutane ous pen injector INJECT 1 MG UNDER THE SKIN EVERY 7 DAYS active Not Available Not Available No t Available Qulipta 60 mg tablet TAKE 1 TABLET BY MOUTH ONCE DAILY 06/27 completed Not Available Not Available Not Available Paxlovid 300 mg (150 mg x 2)-100 mg tablets in a dose pack TAKE 3 TABLETS TOGETHER (TWO 150 MG NIRMATRE LVIR TABLETS AND ONE 100 MG RITONAVI R TABLET) BY MOUTH TWICE DAILY FOR 5 DAYS. 06/27 completed Not Available Not Available Not Available Omnipod 5 G6 Pods (Gen 5) subcutane ous cartridge CHANGE POD EVERY 3 DAYS active Not Available Not Available No t Available Omnipod 5 G6 Intro Kit (Gen 5) subcutane ous cartridge with controlle r CHANGE POD EVERY 3 DAYS 12/28 completed Not Available Not Available Not Available Mounjaro 5 mg/0.5 mL subcutane ous pen injector INJECT 5 MG SUBCUTAN EOUSLY ONCE A WEEK 03/15 completed Not Available Not Available Not Available Mounjaro 2.5 mg/0.5 mL subcutane ous pen injector INJECT 2 & 1/2 (TWO & ONE-HALF ) MG SUBCUTAN EOUSLY ONCE A WEEK 12/28 completed Not Available Not Available Not Available Ozempic 0.25 mg or 0.5 mg (2 mg/3 mL) subcutane ous pen injector INJECT 0.5MG SUBCUTAN EOUSLY ONCE A WEEK, EVERY 7 DAYS 12/28 completed Not Available Not Available Not Available Vitals Date Recorded Body mass index (BMI) Body height Oxygen saturation Oxygen saturation in Arterial blood by Pulse oximetry Heart rate Respiratory rate Body temperature Body weight Systolic blood pressure Diastolic blood pressure Provider Name and Address Organization Details Last Updated DateTime 2 36.5 kg/m2 162.56 cm 99 % 99 % 85 /min 16 /min 97.3 [degF] 19708.4 6 g 120 mm[Hg] 80 mm[Hg] Not Available [facility] 3 16:58:33 Date Recorded Body mass index (BMI) Body height Oxygen saturation Oxygen saturation in Arterial blood by Pulse oximetry Body temperature Body weight Systolic blood pressure Diastolic blood pressure Provider Name and Address Organization Details Last Updated DateTime 3 36 kg/m2 162.56 cm 98 % 98 % 97.4 [degF] 48028.4 g 116 mm[Hg] 70 mm[Hg] Not Available [facility] 3 16:58:33 Date Recorded Body height Body temperature Body mass index (BMI) Body weight Respiratory rate Oxygen saturation Oxygen saturation in Arterial blood by Pulse oximetry Heart rate Systolic blood pressure Diastolic blood pressure Provider Name and Address Organization Details Last Updated DateTime 3 162.56 cm 96.4 [degF] 36.6 kg/m2 62317.1 7 g 16 /min 99 % 99 % 90 /min 140 mm[Hg] 90 mm[Hg] INDER Gonzalez [employer] 3 16:06:06 Date Recorded Body height Body temperature Body mass index (BMI) Body weight Respiratory rate Oxygen saturation Oxygen saturation in Arterial blood by Pulse oximetry Heart rate Systolic blood pressure Diastolic blood pressure Provider Name and Address Organization Details Last Updated DateTime 3 162.56 cm 97.3 [degF] 38.4 kg/m2 867528. 69 g 16 /min 98 % 98 % 83 /min 138 mm[Hg] 80 mm[Hg] INDER Gonzalez [facility] [employer] [facility] 3 08:53:53 Date Recorded Systolic blood pressure Diastolic blood pressure Provider Name and Address Organization Details Last Updated DateTime 12/28/2022 124 mm[Hg] 80 mm[Hg] DELMER Ardon [address] [facility], [place] [address], [place], [address], [employer] 12/28/2022 09:14:39 Date Recorded Body height Body weight Body temperature Heart rate Respiratory rate Oxygen saturation Oxygen saturation in Arterial blood by Pulse oximetry Systolic blood pressure Diastolic blood pressure Provider Name and Address Organization Details Last Updated DateTime 162.56 cm 33765.6 6 g 97.7 [degF] 110 /min 16 /min 98 % 98 % 140 mm[Hg] 92 mm[Hg] INDER Gonzalez [employer] 4 15:11:16 Date Recorded Body mass index (BMI) Systolic blood pressure Diastolic blood pressure Provider Name and Address Organization Details Last Updated DateTime 03/15/2023 34.7 kg/m2 130 mm[Hg] 80 mm[Hg] DELMER Ardon [address] [facility], [address], [address], [employer] 03/15/2023 15:34:06 Date Recorded Systolic blood pressure Diastolic blood pressure Provider Name and Address Organization Details Last Updated DateTime 11/29/2021 110 mm[Hg] 80 mm[Hg] Not Available [facility] 0 05/09/2022 16:58:33 Social History Question Answer Notes LastModified by Organizat ion Details LastModified Time Tobacco Smoking Status Former Smoker 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 Occasional [id number] Information not available 05/09/2022 What Is Your Level Of Caffeine Consumption? Moderate Coffee/So da [id number] Information not available 05/09/2022 How Much Tobacco Do You Chew? None [id number] Information not available 05/09/2022 In The 14 Days Before Symptom Onset, Have You Had Close Contact With A Laboratory-confir med COVID-19 While That Case Was Ill? No [email or web address] Information not available 03/15/2023 In The 14 Days Before Symptom Onset, Have You Had Close Contact With A Person Who Is Under Investigation For COVID-19 While That Person Was Ill? No [email or web address] Information not available 03/15/2023 What Type Of Diet Are You Following? REGULAR [id number] Information not available 05/09/2022 Which Illicit Or Recreational Drugs Have You Used? None [email or web address] Information not available 03/15/2023 Do You Or Have You Ever Used E-cigarettes Or Vape? 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 No [email or web address] Information no t available 03/15/2023 Do You Use Insect Repellent Routinely? No [email or web address] Information not available 03/15/2023 What Is Your Relationship Status? Single [id number] Information not available 05/09/2022 Do You Use Your Seat Belt Or Car Seat Routinely? Yes [email or web address] Information not available 03/15/2023 Do You Have Smoke And Carbon Monoxide Detectors In Your Home? Yes [email or web address] Information not available 03/15/2023 At What Age Did You Start Smoking Tobacco? 17 [email or web address] Information not available 03/15/2023 Do You Or Have You Ever Used Smokeless Tobacco? Never Used Smokeless Tobacco MIGRATION.[id number] Information not available 05/09/2022 Do You Use Any Illicit Or Recreational Drugs? No [email or web address] Information not available 03/15/2023 Do You Use Sunscreen Routinely? Yes [email or web address] Information not available 03/15/2023 Have You Recently Traveled Abroad? No [email or web address] Information not available 03/15/2023 Do You Have Any Dietary Restrictions? No [email or web address] Information not available 03/15/2023 Do You Or Have You Ever Used Any Other Forms Of Tobacco Or Nicotine? No [email or web address] Information not available 03/15/2023 Sex: Unknown Functional Status Question Answer Note LastModified by Organizat ion Details LastModified Time What is your exercise level? Occasional [id number] Information not available 05/09/2022 Mental Status None recorded. Family History Relationship Description Onset Age of this Age Resolved Age Notes LastModified by Organization Details LastModified Time Father Myocardial infarction [id number] Not available 05/09/2022 16:57:32 Father Diabetes mellitus [id number] Not available 05/09/2022 16:57:32 Father Chronic obstructive pulmonary disease Not available 03/15 15:02:48 Father Cerebrovascu lar accident 75 [email or web address] Not available 15:02:48 Paternal Grandfather Diabetes mellitus [id number] Not available 05/09/2022 16:57:32 Maternal Grandmother Alzheimer's disease 84 [email or web address] Not available 03/15 15:02:48 Paternal Grandmother Dementia [email or web address] Not available 15:02:48 Sister Bipolar disorder [email or web address] Not available 03/15 15:02:48 Maternal Uncle Cardiac pacemaker in situ [email or web address] Not available 03/15 15:02:48 Medical History Condition Response NERVE DISEASE Y HEARTBURN / REFLUX Y EYE PROBLEMS Y DEPRESSION (INCLUDING POST ) Y BOWEL PROBLEMS Y HEADACHES/MIGRAINES Y DIZZINESS Y KIDNEY DISEASE Y HYPERTENSION Y OBESITY Y ANXIETY DISORDER Y Gynecological History Statement/Question Response Date of Last Colonoscopy 11/05/2016 Sexually Active? N Obstetrics History GPAL:G 0 P 0 0 0 0 Immunizations Vaccine Type Date Status Note Provider Nam e and Address Organization Details Recorded Time SARS-COV-2 (COVID-19) vaccine, UNSPECIFIED 1 completed Not Available [facility] 06/07/2022 17:54:25 influenza, unspecified formulation 4 completed Not Available [facility] 06/07/2022 17:54:25 tetanus toxoid, unspecified formulation 4 completed Not Available [facility] 06/07/2022 17:54:25 Pneumococcal Conjugate, unspecified formulation 4 completed Not Available [facility] 06/07/2022 17:54:25 influenza, unspecified formulation 5 completed Not Available [facility] 06/07/2022 17:54:25 Past Encounters Encounter ID Performer Location Encounter Start Date Encounter Closed Date Diagnosis/Indication Diagnosis SNOMED-CT Code Diagnosis ICD10 Code [id number] [facility] [address] [place] [address] 06/21/2020 00:00:00 07/08/2020 14:59:35 [id number] [facility] [place] [address] [place] [address] 07/15/2020 00:00:00 08/04/2020 23:14:50 [id number] [facility] [place] [address] [place] [address] 08/10/2020 00:00:00 09/03/2020 14:47:55 [id number] [facility] [place] [address] [place] [address] 09/13/2020 00:00:00 09/25/2020 19:54:24 [id number] [facility] [place] [address] [place] [address] 10/04/2020 00:00:00 10/04/2020 22:21:13 [id number] [facility] [place] [address] [place] [address] 05/03/2021 00:00:00 05/06/2021 21:22:17 [id number] [facility] [place] [address] [place] [address] 06/16/2021 00:00:00 07/08/2021 19:57:10 [id number] [facility] [place] [address] [place] [address] 09/19/2021 00:00:00 10/08/2021 16:14:59 [id number] [facility] [place] [address] [place] [address] 11/01/2021 00:00:00 11/04/2021 23:37:08 [id number] [facility] [place] [address] [place] [address] 11/29/2021 00:00:00 12/06/2021 17:54:41 [id number] [facility] [place] [address] [place] [address] 05/04/2022 00:00:00 05/05/2022 14:50:59 [id number] DELMER Ardon [facility] [place] [address] [place] [address] 06/27/2022 15:58:46 06/27/2022 16:18:05 Postviral cough 410611117 B94.8 [id number] DELMER Ardon [facility] [place] [address] [place] [address] 12/28/2022 08:45:06 12/28/2022 09:18:09 Mixed hyperlipidemia 473565072 E78.2 Long-term drug therapy 416051539 Z79.899 History of bariatric surgical procedure 982992037 Z98.84 Uncontroll ed type 2 diabetes mellitus 273524512 E11.65 Gastroesop hageal reflux disease 075203877 K21.9 Major depr essive disorder 548986576 F32.9 Benign ess ential hypertension 1582049 I10 Body mass index 30+ - obesity 637857450 Z68.37 [id number] DELMER Ardon [facility] [place] [address] [place] [address] 03/15/2023 15:02:41 03/15/2023 16:34:02 Benign essential hypertension 6167599 I10 Facial paresthesia 26340 007 R20.2 Health Concerns Section Related Observation LastModified by Organization Detai ls LastModified Time None Recorded Concern Status LastModified by Organization Details LastModified Time None Recorded Advance Directives Directive None Recorded Payers Encounter Date Sequence Insurance Name Policy Number Policy Acevedo Covered Member ID Acevedo Member ID Guarantor Name 06/27/2022 1 [employer] [id number] Alannah Ruano [id number] Alannah Ruano 12/28/2022 1 [facility] [id number] Alannah Ruano [id number] Alannah Ruano 03/15/2023 1 [facility] [id number] Alannah Ruano [id number] Alannah Ruano Notes Date Note Type Note Provider Name and Address Organization Details Recorded Time 022 text/ht ml Generic HPI TemplateReported bypatient.Notes:Pt is here for an e/r f/u. We have called for records and they haven't sent any. She went on 11/27/21 for headaches and they did tests and everything was fine. Today she still has the headache. Headache is located in forehead and down the R side of her head and into her shoulder. Pain rated 6/10. She has a neurologist managing her headache problems but was told to f/u here. Not Available [facility] 12/06/2021 17:54:41 023 text/ht ml Anxiety/DepressionReported bypatient.Quality:increased anxiety Severity:denies suicidal ideations; able to maintain relationships; does not interfere with activities of daily living Context:no major life stressors Associated Symptoms:denies homicidal ideations; no significant weight gain; no significant weight loss; no visual/auditory hallucinations; no delusions; no shortness of breath; no crying spells; no panic; no isolation; energy good; no apathy; maintaining functionality;eating less;eating more;anxiety;insomniaDiabetesReporte d bypatient.Control:usually well controlled; improved since last visit; normal range of home blood sugars (in the low 100s) Compliance:compliant with medications; compliant with follow-up visits; compliant with diet; compliant with home glucose monitoring Self Care:monitoring glucose Context:seeing eye doctor regularly; checking feet regularly Associated Symptoms:no weight gain; no weight loss; no dizziness; no sweats; no headaches; no confusion; no increased thirst; no increased appetite; no increased urination; no blurred vision; no numbness of feet; no calluses on feet; no fatigue; no blurred vision; no paresthesiasHyperlipidemiaReported bypatient.Control:usually well controlled; improving; at goal Compliance:compliant; compliant with diet; exercises Complications:no coronary artery disease; no peripheral artery disease; no cardiovascular diseaseHypertensionReported bypatient.Onset/Timing:better Self Care:not under emotional stress Associated Symptoms:no shortness of breath; no fatigue; no decline in exercise capacity; no snoring;palpitationsReflux/GERDRepor erika bypatient.Symptomsasymptomatic; no pain swallowing; no postprandial pain; heartburn; with acid / burning taste;difficulty swallowing (dysphagia) Severity:improving Context:non-smoker; no drug/alcohol abuse; no drug alcohol withdrawal; not related to food/drink Associated Symptoms:no frequent coughing; no feeling of fullness/mass in throat; no hoarseness; no food getting stuck; no belching/burping; no nausea; no vomiting; not vomiting blood; no regurgitation; no shortness of breath; no chest pain; no heartburn; no difficulty swallowing; no pain when swallowing; no bad taste; no decreased appetite; no weight loss; no black/tarry stools; no fatigue; no throat pain; no dental erosion; no bloating; no early satiety; no halitosis Not Available [employer] 05/05/2022 14:50:59 023 text/ht ml CoughReported bypatient.Quality:loose; non productive; no hemoptysis;harsh;tight Severity:improving;pain with cough Duration:symptoms lasting over 2 weeks Timing:gradual; actual date: (3 weeks) Context:non-smoker;worse at night;history of asthma;history of bronchitis; Had COVID 3 weeks ago. Modifying Factors:inhaler; took paxlovid and the cough syrup Associated Symptoms:no orthopnea; no wheezing ; no edema; no chest pain; no paroxysmal nocturnal dyspnea; no daytime somnolence; no snoring; no fever; no chills; no vomiting; no agitation; no sleep attacks;dyspnea with exertion(at rest);post nasal drip;chest pain(w/coughing);heartburn;nausea She has an event monitor in review DELMER Ardon [address] [place] [address], [address], [employer] 07/05/2022 22:47:37 023 text/ht ml Anxiety/DepressionReported bypatient.Quality:doesnt matter time of day. Severity:denies suicidal ideations; able to maintain relationships; does not interfere with activities of daily living Duration:symptoms lasting over 2 weeks Onset/Timing:still present Context:no major life stressors Associated Symptoms:denies homicidal ideations; no significant weight gain; no significant weight loss; no visual/auditory hallucinations; no delusions; no shortness of breathDiabetesReported bypatient.Duration:chronic Control:usually well controlled Compliance:compliant with medications; compliant with follow-up visits; compliant with diet; compliant with home glucose monitoring; had eye doctor visit in last year;has not had dietitian visit in last year;does not wear a medic alert bracelet or necklace;does not keep rapid-acting carbohydrate in car Self Care:monitoring glucose daily Context:normal range of home blood sugars (in the low 100s); seeing eye doctor regularly; checking feet regularly;not taking aspirin daily Associated Symptoms:no weight gain; no weight loss; no dizziness; no sweats; no headaches; no confusion; no increased thirst; no increased appetite; no increased urination; no blurred vision; no numbness of feet; no calluses on feet; no coronary artery disease; no kidney disease; no peripheral vascular disease; no diabetic retinopathy; no diabetic neuropathyHyperlipidemiaReported bypatient.Duration:chronic Control:usually well controlled Compliance:compliant; compliant with diet;does not exercise Complications:no coronary artery disease; no peripheral artery disease; no cardiovascular disease Risk Factors:diabetes;hypertensionHyperte nsionReported bypatient.Duration:has noted for years Onset/Timing:better Alleviating Factors:medication Associated Symptoms:no shortness of breath; no fatigue; no palpitations; no decline in exercise capacity; no snoring DELMER Ardon [address], [address], [place] [facility] 01/06/2023 13:44:20 024 text/ht ml Elevated Blood PressureReported bypatient.Quality:numbess Duration:has noted for months Onset/Timing:worse Alleviating Factors:medication; increased her losartan yesterday Associated Symptoms:no shortness of breath; no decline in exercise capacity; no snoring;fatigue;palpitations;numbnes s; chest tightnessNotes:She went to the e/r on 03/11/23 and her BP was high there. losartan was increased to 100mg yesterday DELMER Ardon [address] [facility], [facility] [address], [place], [address], [facility] [employer] [facility] 03/15/2023 18:40:48 OBGyn Episode No OBEpisode recorded.
--- OUTSIDE RECORDS SUMMARY | 2024-02-24 16:57 | XMS_ITS | Encounter Summary ---
Author Organization [facility] Address [address] [place] [address]. [place], [place] [address] [place] [address] Care Team Providers Care Produce Buyer Name Role Phone Jennifermary Deedee DELMER Primary Care Provider [phone] Encounter Details Date Type Department Care Team (Late Contact Info) Description 01/21/2024 [email or web address] Message Enc [address], [address] [place] [address] Presley Hernandez MD 3 [place] [address] FMLA Social History Tobacco Use Types Packs/Day Years [...] st Contact Info) Description 04/15/2024 1:00 PM ACTIVE DIRECTORY ARCHITECT [facility] [address] [facility], [address] [place] [address] Presley Hernandez MD 3 [place] [address] 04/30/2024 10:40 AM ACTIVE DIRECTORY ARCHITECT Office Visit [facility] [address] [facility], [address] [place] [address] Presley Hernandez MD [address] [place] [address] documented as of this encounter Visit Diagnoses Not on filedocumented in this encounter Care Teams Produce Buyer Relationship Specialty Start Date End Date Deedee Low PA [address] [place] [address] PCP - General PHYSICIAN SECRET CODE EXPERT 07/22/20 documented as of this encounter
--- OUTSIDE RECORDS SUMMARY | 2024-02-24 16:57 | XMS_ITS | Encounter Summary ---
Author Organization [facility] Address [address] [place] [address]. [place], [place] [address] [place] [address] Care Team Providers Care Biomedical Instrument Technician Name Role Phone Jennifermary Deedee DELMER Primary Care Provider [phone] Encounter Details Date Type Department Care Team (Latest Contact Info) Description 01/22/2024 Scan HEALTH INFO SRVCS Scanned, Doc Med [...] st Contact Info) Description 04/15/2024 1:00 PM WELT BEATER Office Visit [facility] Multispecialty Care - [facility] [address] [facility], [address] [place] [address] Presley Hernandez MD 3 [place] [address] 04/30/2024 10:40 AM WELT BEATER Office Visit [facility] Mult[facility]pec[facility]ty Care - [facility] [address] [facility], [address] [place] [address] Presley Hernandez MD 3 [place] [address] documented as of this encounter Visit Diagnoses Not on filedocumented in this encounter Care Teams Biomedical Instrument Technician Relationship Specialty Start Date End Date Deedee Low PA [address] [place] [address] PCP - General PHYSICIAN WINDSCREEN FITTER 07/22/20 documented as of this encounter
--- OUTSIDE RECORDS SUMMARY | 2024-02-24 16:57 | XMS_ITS | Encounter Summary ---
Author Organization [facility] Address [address] [place] [address]. [place] [address] [place] [address] Care Team Providers Care Metal Stud Framer Name Role Phone Jennifermary Deedee DELMER Primary Care Provider [phone] Encounter Details Date Type Department Care Team (Late Contact Info) Description 09/05/2023 Abstract [facility] BUSINESS OFFICE [address] [place] [address] Abstract, Doc Med Group Social History Tobacco Use [...] Upcoming Encounters Date Type Department Care Team ([facility] Contact Info) Description 04/15/2024 1:00 PM CERTIFIED CODING SPECIALIST Office Visit [facility] Multispecialty Care - [address], [address] [place] [address] Presley Hernandez MD 3 [place] [address] 04/30/2024 10:40 AM CERTIFIED CODING SPECIALIST Office Visit [facility] Multispecialty Care - [facility] [address] [facility], [address] [place] [address] Presley Hernandez MD 3 [place] [address] documented as of this encounter Procedures Procedure Name Priority Date/Time Associated Diagnosis Comments HEMOGLOBIN, GLYCOSYLATED Routine 09/05/2023 documented in this encounter Results * HEMOGLOBIN, GLYCOSYLATED (09/05/2023) HGB A1C 5.8 % 09/05/2023 us Default History Genericprovider LABORATORY Final Result documented in this encounter Visit Diagnoses Not on filedocumented in this encounter Care Teams Metal Stud Framer Relationship Specialty Start Date End Date Deedee Low PA [address] [place] [address] PCP - General PHYSICIAN BRANCH CUSTOMER SERVICE REPRESENTATIVE 07/22/20 documented as of this encounter
--- OUTSIDE RECORDS SUMMARY | 2024-02-24 16:57 | XMS_ITS | Encounter Summary ---
Author Organization [facility] Address [address] [place] [address]. [place], [place] [address] [place] [address] Care Team Providers Care Hospice Chaplain Name Role Phone Deedee Low Primary Care Provider [phone] Encounter Details Date Type Department Care Team (Latest Contact Info) Description 08/22/2023 Travel Social History Tobacco Use Types Packs/Day [...] st Contact Info) Description 04/15/2024 1:00 PM IMPROVEMENT MANAGER Office Visit [facility] Multispecialty Care - [facility] [address] [facility], [address] [place] [address] Presley Hernandez MD 3 [place] [address] 04/30/2024 10:40 AM IMPROVEMENT MANAGER Office Visit [facility] - [facility] [address] [facility], [address] [place] [address] Presley Hernandez MD 3 [place] [address] documented as of this encounter Visit Diagnoses Not on filedocumented in this encounter Care Teams Hospice Chaplain Relationship Specialty Start Date End Date Deedee Low PA [address] [facility] [address] [place] [address] PCP - General PHYSICIAN MECHANOTHERAPIST 07/22/20 documented as of this encounter
--- OUTSIDE RECORDS SUMMARY | 2024-02-24 16:57 | XMS_ITS | Encounter Summary ---
Author Organization [facility] Address [address] [place] [address]. [place] [address] [place] [address] Care Team Providers Care Fabrication Department Supervisor Name Role Phone Jennifermary Deedee DOWELL Primary Care Provider [phone] Encounter Details Date Type Department Care Team (Late st Contact Info) Description 10/24/2023 Therapy Plan [facility] Medical Group Multispecialty Care - [facility] [address] [facility] [address], [address] [place] [phone] Presley Hernandez MD 3 [place] [address] Social History Tobacco Use Types Packs/Day Years [...] as of this encounter Progress Notes * Juno Poe RN - 10/24/2023 11:24 AM CDTAddended by: JUNO POE on: 12/17/2023 02:56 PM Modules accepted: Orders documented in this encounter Plan of Treatment Upcoming Encounters Date Type Department Care Team (Late st Contact Info) Description 04/15/2024 1:00 PM ENGINEER OF SYSTEM DEVELOPMENT Office Visit [facility] - [facility] [address], [address] [place] [address] Presley Hernandez MD 3 [place] [address] 04/30/2024 10:40 AM ENGINEER OF SYSTEM DEVELOPMENT Office Visit [facility] - [facility] [address], [address] [place] [address] Presley Hernandez MD [address] [place] [address] documented as of this encounter Visit Diagnoses Not on filedocumented in this encounter Care Teams Fabrication Department Supervisor Relationship Specialty Start Date End Date Deedee Low PA [address] [place] [address] PCP - General PHYSICIAN ORACLE MANAGER 07/22/20 documented as of this encounter
--- OUTSIDE RECORDS SUMMARY | 2024-02-24 16:57 | XMS_ITS | Encounter Summary ---
Author Organization [facility] Address [address] [place] [address]. [place], [place] [address] [place] [address] Care Team Providers Care Fast Food Sales Assistant Name Role Phone Jennifermary Deedee DELMER Primary Care Provider [phone] Encounter Details Date Type Department Care Team (Latest Contact Info) Description 09/03/2023 Scan HEALTH INFO SRVCS Scanned, Doc Med [...] st Contact Info) Description 04/15/2024 1:00 PM FAST FOOD SALES ASSISTANT Office Visit [facility] Medical Group Multispecialty Care - [facility] [address] [facility], [address] [place] [phone] Presley Hernandez MD 3 [place] [address] 04/30/2024 10:40 AM FAST FOOD SALES ASSISTANT Office Visit [facility] Medical Group Multispecialty Care - [facility] [address] [facility], [address] [place] [address] Presley Hernandez MD 3 [place] [address] documented as of this encounter Visit Diagnoses Not on filedocumented in this encounter Care Teams Fast Food Sales Assistant Relationship Specialty Start Date End Date Deedee Low PA [address] [place] [address] PCP - General PHYSICIAN PRODUCTION TESTER 07/22/20 documented as of this encounter
--- OUTSIDE RECORDS SUMMARY | 2024-02-24 16:57 | XMS_ITS | Clinical Summary ---
Author Organization [facility] Address [address] [place] [address]. [place] [address] [place] [address] Care Team Providers Care Systems Coordinator Name Role Phone Deedee Low Primary Care Provider [phone] Allergies Active Allergy Reactions Criticality Noted Date Comments Mushroom Extract Complex (Do Not Select) Anaphylaxis High 01/04/2016 Pecans Anaphylaxis High 09/05/2021 Medications lamoTRIgine 100 MG tablet Take 1 tablet (100 mg total) by mouth 2 (two) times daily. Active diazePAM 5 MG tablet Take 1 tablet (5 mg total) by mouth every 8 (eight) hours as needed for Anxiety. Active montelukast 10 MG tablet Take 1 tablet (10 mg total) by mouth nightly at bedtime. Active doxycycline hyclate 100 MG tablet Take 1 tablet (100 mg total) by mouth daily. on an empty stomach Active cetirizine 10 MG tablet Take 1 tablet (10 mg total) by mouth daily. Active insulin aspart 100 UNIT/ML injection (VIAL) Inject into the skin 3 (three) times daily before meals. Active insulin aspart 100 UNIT/ML injection (PEN) Inject into the skin 3 (three) times daily before meals. Active albuterol sulfate HFA 108 (90 Base) MCG/ACT inhaler Inhale 2 puffs into the lungs every 6 (six) hours as needed for Wheezing. Active diphenhydrAMINE 25 MG capsule Take 1 capsule (25 mg total) by mouth every 6 (six) hours as needed for Itching. Active topiramate (TOPAMAX) 200 MG tabletIndications: MS (multiple sclerosis) (CMS/HCC HHS/HCC),Migraine without aura, not intractable, without status migrainosus Take 1 tablet (200 mg total) by mouth 2 (two) times daily. 60 tablet 6 08/09/19 Active Continuous Blood Gluc Sensor (DEXCOM G6 SENSOR) [facility] 09/29/19 Active Continuous Blood Gluc Transmit (DEXCOM G6 TRANSMITTER) [facility] 09/28/19 Active EPINEPHrine (EPIPEN) 0.3 MG/0.3ML injection Auvi-Q 0.3 mg/0.3 mL injection, auto-injector ADMINISTER 0.3 MG IN THE MUSCLE 1 TIME Active Glucagon (BAQSIMI ONE PACK) 3 MG/DOSE Powder Baqsimi 3 mg/actuation nasal spray USE 1 SPRAY INTO ONE NOSTRIL ONCE DIRECTED FOR LOW BLOOD SUGAR 09/13/19 Active pantoprazole EC (PROTONIX) 40 MG tablet Take 1 tablet (40 mg total) by mouth 2 (two) times daily. Active triamcinolone (KENALOG) 0.1 % ointment triamcinolone acetonide 0.1 % topical ointment Active losartan (COZAAR) 50 MG tablet Take 1 tablet (50 mg total) by mouth daily. Active fluticasone-salmet donavan (ADVAIR DISKUS) 250-50 MCG/ACT inhaler 2 (two) times daily. Active fenofibrate 160 MG tablet Take 1 tablet (160 mg total) by mouth daily. Active Insulin Disposable Pump (OMNIPOD DASH PODS, GEN 4,) [facility] Omnipod Dash Pods (Gen 4) Active atorvastatin (LIPITOR) 40 MG tablet atorvastatin 40 mg tablet TAKE 1 TABLET BY MOUTH ONCE DAILY WITH DINNER Active buPROPion (WELLBUTRIN) 100 MG tablet Take 1 tablet (100 mg total) by mouth 2 (two) times daily. Active traZODone (DESYREL) 50 MG tablet TAKE 1 TO 2 TABLETS BY MOUTH ONCE DAILY AT NIGHT Active vitamin D2, ergocalciferol, (DRISDOL) 1.25 mg capsule TAKE 1 CAPSULE BY MOUTH ONCE A WEEK DIRECTED Active fluticasone propionate (FLONASE) 50 MCG/ACT nasal spray fluticasone propionate 50 mcg/actuation nasal spray,suspension inhale 2 sprays each nostril daily Active eszopiclone (LUNESTA) 1 MG tablet Take 1 tablet (1 mg total) by mouth nightly at bedtime. at bedtime. Active carBAMazepine (TEGRETOL) 200 MG tabletIndications: MS (multiple sclerosis) (CMS/HCC HHS/HCC),Migraine without aura, not intractable, without status migrainosus TAKE 1/2 (ONE-HALF) TABLET BY MOUTH THREE TIMES DAILY 135 tablet 12/28/19 23 Active bevacizumab (AVASTIN) 0.625 mg/0.025 ml ophthalmic injection (NICU) 0.025 mLs (0.625 mg total) by Intravitreal route once. Active rimegepant (NURTEC) 75 MG disintegrating tabletIndications: Migraine without aura, not intractable, without status migrainosus Take 1 tablet (75 mg total) by mouth as needed. Max of 1 tablet (75 mg) in 24 hours. 16 tablet 11 01/24/20 23 Active ubrogepant (UBRELVY) 100 MG tabletIndications: Migraine without aura, not intractable, without status migrainosus Take 1 tablet (100 mg total) by mouth 2 (two) times daily as needed. Max of 2 tablets (200 mg) in 24 hours 16 tablet 11 03/12/19 24 Active Additional Information Patient not taking.Reported on 01/30/2024 JARDIANCE 25 MG tablet Take 1 tablet (25 mg total) by mouth daily. Active insulin lispro (HUMALOG) 100 UNIT/ML injection (VIAL) Inject 10,000 Units into the skin once. Active OZEMPIC 1 mg/dose injection (PEN) Inject 1 mg into the skin once a week. Active ketorolac (TORADOL) 10 MG tabletIndications: Migraine without aura, not intractable, without status migrainosus Take 1 tablet (10 mg total) by mouth every 6 (six) hours as needed for Pain. 20 tablet 11 06/03/19 24 Active hydroCHLOROthiazid e (MICROZIDE) 12.5 MG capsule Take 1 capsule (12.5 mg total) by mouth daily. 05/09/19 24 Active phentermine (ADIPEX-P) 37.5 MG tablet Take 1 tablet (37.5 mg total) by mouth before breakfast. Active RHOFADE 1 % Cream 07/02/19 24 Active MOTEGRITY 2 MG Tab Take 1 tablet by mouth daily. Active RABEprazole EC (ACIPHEX) 20 MG tablet Take 1 tablet (20 mg total) by mouth 2 (two) times daily. Active AMZEEQ 4 % Foam 08/20/19 Active SOOLANTRA 1 % Cream APPLY A PEA SIZED AMOUNT TO RED AREAS ON THE FACE EVERY NIGHT AT BEDTIME 09/21/19 23 Active propranolol (INDERAL) 20 MG tabletIndications: MS (multiple sclerosis) ([facility]),Migraine without aura, not intractable, without status migrainosus Take 1 tablet by mouth twice daily 120 tablet 09/02/19 24 Active ondansetron (ZOFRAN-ODT) 4 MG disintegrating tabletIndications: Nausea DISSOLVE 1 TABLET IN MOUTH EVERY 8 HOURS NEEDED FOR NAUSEA 20 tablet 09/09/19 Active KETOSTIX Strip Test if BG are high, or in case of abdominal pain / nausea, vomiting, suspected DKA 09/05/19 Active Active Problems Problem Noted Date Diagnosed Date Morbid obesity ([facility]) 07/24/2023 Skin eruption 07/24/2023 Sinus headache 07/24/2023 Stomach cramps 07/24/2023 Viral gastroenteritis 07/24/2023 Injury of hand 07/24/2023 Bezoar 07/24/2023 Asthma ([facility]) 07/24/2023 Acute sinusitis 07/24/2023 Facial paresthesia 03/14/2023 Nonsustained ventricular tachycardia ([facility]) 08/29/2022 Tachycardia 07/12/2022 Chronic migraine without aura 06/25/2022 Trigeminal neuralgia 06/25/2022 Spasmodic torticollis 06/25/2022 COVID-19 06/04/2022 Lumbar radiculopathy 05/23/2022 Overview (05/23/2022): Added automatically from request for surgery [id number] Cervical radiculopathy 05/07/2022 Overview (05/07/2022): Added automatically from request for surgery [id number] Intermittent palpitations 05/03/2022 Panic attack 11/23/2021 Posterior rhinorrhea 11/23/2021 Vitamin D deficiency 11/23/2021 Mild major depression 11/23/2021 Mild anxiety 11/23/2021 Microalbuminuric diabetic nephropathy ([facility]) 11/23/2021 Keratosis pilaris 11/23/2021 Generalized anxiety disorder 11/23/2021 Foot joint pain 11/23/2021 Dyslipidemia 11/23/2021 Diarrhea 11/23/2021 Cyst of pineal gland 11/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 Gave her info on target, AIT when she switches to OP5, along with setting up a [employer] account. She is planning to start on it this weekend. Diabetes mellitus type 2 wit h complications ([facility]) 10/08/2021 Physical deconditioning 09/11/2021 Overview (07/24/2023): Last Assessment & Plan: Patient's friends concerned about ability to care for herself -PT ordered, but unable to participate d/t BATES Migraine 09/10/2021 Overview (07/24/2023): Last Assessment & Plan: Patient has hx of migraines and is on prophylactic topamax, propranolol, lamictal. Also is on PRN maxalt. - will resume her prophylactic regimen and treatment of headache as above Hypoglycemia due to type 1 d iabetes mellitus ([facility]) 09/10/2021 Carpal tunnel syndrome 09/10/2021 Lumbar puncture headache 09/09/2021 Overview (07/24/2023): Last Assessment & Plan: Developed severe generalized headache radiating all the way to her toes and is positional since getting LP on 09/07, that is not consistent with her usual migraine headache and is associated with intractable n/v, dizziness and an episode of ?syncope. Her headache is most likely worsened due to further dehydration from poor oral intake and continued n/v. - No improvement in BATES despite IVF and analgesics. - Pain management consulted for blood patch. - continue analgesics and antiemetics Visual field constriction, bilateral 08/25/2021 Macular edema, diabetic ([facility]) 2021 Overview (07/24/2023): Last Assessment & Plan: Patient has bilateral macular edema and thought to be 2/2 her underlying diabetes. She follows with Dr Seth - continue Ketorolac ocular drop BID as reported by patient. 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 Hypercholesterolemia 06/18/2019 Type 1 diabetes mellitus ([facility]) 06/17 Mental disorder 06/18/2019 Hypertension associated with diabetes ([facility]) 06/18/2019 Overview (07/24/2023): Last Assessment & Plan: Chronic problem, not at goal. Add HCTZ 12.5 mg daily. Continue monitoring BP at home. Abscess of vulva 05/05/2019 Overview (07/24/2023): Abscess of vulva;Recorded Elsewhere: No Location: [facility] Source: EHR Chronic: N Practice ID: [id number] Billable Time: 03:15:00 PM Wound dehiscence 04/20/2019 Overview (07/24/2023): Disruption of wound, unspecified, initial encounter;Recorded Elsewhere: No Location: [facility] Source: EHR Chronic: N Practice ID: [id number] Billable Time: 05:00:00 PM Disruption of wound, unspecified, initial encounter;Recorded Elsewhere: No Location: [facility] Source: EHR Chronic: N Practice ID: [id number] Billable Time: 05:00:00 PM Nausea and vomiting 04/14/2019 Overview (07/24/2023): Nausea with vomiting, unspecified;Practice ID: [id number] Abscess of buttock 04/14/2019 Overview (07/24/2023): Cutaneous abscess of buttock;Practice ID: [id number] Gastroesophageal reflux disease without esophagi tis 07/18/2017 Irritable bowel syndrome 03/13/2017 Hemorrhoids 03/13/2017 Hematochezia 10/19/2016 Acute vaginitis 04/03/2016 Overview (07/24/2023): Vaginitis;Recorded Elsewhere: No Location: [facility] Source: EHR Chronic: N Practice ID: [id number] Billable Time: 10:00:00 AM Seasonal allergic rhinitis due to pollen 016 Severe recurrent major depre ssion without psychotic features ([facility]) 01/03/2016 Encounters Date Type Department Care Team Description 02/10/2024 Telephone [facility] - [address], [address] ' [place] [address] Presley Hernandez MD Prior Authorization ([facility]) 01/30/2024 10:40 AM HOT MIX OPERATOR [facility] [address], [address] [place] [address] Presley Hernandez MD Botox (botox cervical dystonia, neuralgia 100unit/) 01/30/2024 Scan [facility] HEALTH INFO SRVCS Scanned, Doc Med Group 01/30/2024 Travel 01/22/2024 1:40 PM HOT MIX OPERATOR [facility] [address] [facility], [address] [place] [phone] Presley Hernandez MD Botox (botox migraines 155 units/) 01/22/2024 Scan [facility] HEALTH INFO SRVCS Scanned, Doc Med Group 01/22/2024 Travel 01/21/2024 MyChart Message Enc [facility] [address] [facility], [address] [place] [phone] Presley Hernandez MD [facility] 12/24/2023 MyChart Message Enc [facility] [address], [address] [place] [phone] Presley Hernandez MD [facility] 12/20/2023 Therapy Plan [facility] [address], [address] [place] [address] Presley Hernandez MD 12/19/2023 Scan [facility] HEALTH INFO SRVCS Scanned, Doc Med Group 12/12/2023 Scan [facility] HEALTH INFO SRVCS Scanned, Doc Med Group 12/10/2023 MyChart Message Enc [facility] [address] [facility] [address] [place] [phone] Presley Hernandez MD Insurance update and prior authorizations 12/01/2023 Orders Only [facility] [address], [address] [place] [address] Presley Hernandez MD from Last 3 Months Immunizations Name Administration Dates Next Due COVID-19 Vaccine (Generic) 05/13/2020 Dtp (Generic) 08/30/1986, 4,1981,1981,1981 Influenza (Generic) 11/25/2014, 5,12/21/2013,2013,11/28/2012 Influenza Adult (Generic) 12/18/2021,11/30/2020 MMR (MMRII) 07/22/1991,09/28/1982 PFIZER COVID-19 (MOTTA CAP), MRNA, LNP-S, PF, 30 MCG/0.3 ML DOMINIQUE-SUCROSE, IM 05/05/2021 Pneumococcal (Generic) 03/11/2013 Pneumococcal (Pneumovax 23) 10/30/2013 Polio Opv (Generic) 08/30/1986, 4,1981,1981,1981 Td (TDVAX) 09/24/1995 Tdap (Generic) 10/30/2013 Tetanus Toxoid Inj 03/11/2013 Family History Medical History Relation Comments Diabetes type II Father Heart Attack Father Hypertension Father Migraines Father Stroke Father Macular Degeneration Maternal Grandmother Valve Disease Maternal Grandmother enlarged heart Maternal Uncle leaking valve Maternal Uncle Migraines Sister leaking valve Sister Relation Status Comments Father Maternal Grandmother Maternal Uncle Sister Social History Tobacco Use Types Packs/Day Years Used Date Smoking Tobacco: Former Cigarettes Passive Smoke Exposure: Past Smokeless Tobacco: Former Tobacco Cessation:Counseling Given: Yes Comments:Pt states just tried in high school Alcohol Use Standard Drinks/Week [...] Sign Reading Time Taken Comments Blood Pressure 148/91 01/30/2024 11:00 AM HOT MIX OPERATOR Pulse 91 01/30/2024 11:00 AM HOT MIX OPERATOR Temperature 36.7 ??C (98.1 ??F) 01/30/2024 1 1:00 AM HOT MIX OPERATOR Respiratory Rate 18 07/24/2023 3:55 PM CDT Oxygen Saturation 96% 01/30/2024 11: 00 AM HOT MIX OPERATOR Inhaled Oxygen Concentration - - Weight 102.1 kg (225 lb 1.6 oz) 024 11:00 AM HOT MIX OPERATOR Height 162.6 cm (5' 4 ) 01/30/2024 11:0 0 AM HOT MIX OPERATOR Body Mass Index 38.64 01/30/2024 11:00 AM HOT MIX OPERATOR Plan of Treatment Upcoming Encounters Date Type Department Care Team (Late st Contact Info) Description 04/15/2024 1:00 PM HOT MIX OPERATOR [facility] - [address], [address] [place] [address] Presley Hernandez MD [address] [place] [address] 04/30/2024 10:40 AM HOT MIX OPERATOR [facility] [address] [facility], [address] [place] [address] Presley Hernandez MD [address] [place] [address] Health Maintenance Due Date Last Done Comments ASCVD LDL 1981 ASCVD Statin 1981 Cervical Cancer Screening Pap Smear (Age 30 to 64) Every 3 Years 1981 Kidney Health Evaluation 1981 Lipid Panel 1981 Annual Physical 1984 Diabetes: Retinopathy Eye Exam 1999 Hepatitis C 1999 Hepatitis B Vaccines (1 of 3 - 19+ 3-dose series) 2000 Cervical Cancer Screening Pap with HPV Testing (Age 30 to 64) Every 5 Years 2011 Cervical Cancer Screening with HPV 2011 Pneumococcal Vaccine: Pediatrics (0 to 5 Years) and At-Risk Patients (6 to 64 Years) (2 of 2 - PCV) 10/30/2014 10/30/2013, 03/11/2013 Mammogram Screening 2021 DTaP, Tdap and Td Vaccines (7 - Td or Tdap) 10/31/2023 10/30/2013, 03/11/2013, 09/24/1995, Additional history exists COVID-19 Vaccine ( - season) 2023 05/05/2021, 05/13/2020, 05/13/2020 Influenza Adult (#1) 2023 12/18/2021, 11/30/2020, 11/25/2014, Additional history exists Hemoglobin A1C 03/06/2024 09/05/2023, 07/0 04/2021, 08/11/2020 HPV Vaccines Aged Out No longer eligi ble based on patient's age to complete this topic Meningococcal Vaccine Aged Out No nevaeh ree eligible based on patient's age to complete this topic RSV Immunizations Under 20 Months Aged Out No longer eligible based on patient's age to complete this topic Procedures Procedure Name Priority Date/Time Associated Diagnosis Comments HEMOGLOBIN, GLYCOSYLATED Routine 09/05/2023 from Last 3 Months or Most Recently Relevant to Health Maintenance Results * HEMOGLOBIN, GLYCOSYLATED (09/05/2023) HGB A1C 5.8 % 09/05/2023 us Default History Genericprovider LABORATORY Final Result from Last 3 Months or Most Recently Relevant to Health Maintenance Insurance [employer] Care Teams Systems Coordinator Relationship Specialty Start Date End Date Deedee Low PA [address] [place] [address] PCP - General PHYSICIAN WOMEN'S GARMENT FITTER 07/22/20
--- OUTSIDE RECORDS SUMMARY | 2024-02-24 16:57 | XMS_ITS | Encounter Summary ---
Author Organization [facility] Address [address] [place] [address]. [place] [address] [place] [address] Care Team Providers Care Resident Care Manager Name Role Phone Deedee Low Primary Care Provider [phone] Reason for Visit * Reason Onset Date Comments Prior Authorization 02/10/2024 [facility] Encounter Details Date Type Department Care Team (Late st Contact Info) Description 02/10/2024 Telephone [facility] Medical Group Multispecialty Care - [facility] [address] [facility] [facility], [address] [place] [phone] Presley Hernandez MD [address] [place] [address] Prior Authorization ([facility]) Social History Tobacco Use Types Packs/Day Years [...] Progress Notes * Lizy Suresh RN - 02/10/2024 12:13 PM CST Shanelle PA started through [facility] TOR TECH documented in this encounter Plan of Treatment Upcoming Encounters Date Type Department Care Team (Late st Contact Info) Description 04/15/2024 1:00 PM MONITOR TECH [facility] [address] [facility] [facility], [address] [place] [address] Presley Hernandez MD [address] [place] [address] 04/30/2024 10:40 AM MONITOR TECH Office Visit [facility] [address] [facility] [facility], [address] [place] [address] Presley Hernandez MD [address] [place] [address] documented as of this encounter Visit Diagnoses Not on filedocumented in this encounter Care Teams Resident Care Manager Relationship Specialty Start Date End Date Deedee Low PA [address] [place] [address] PCP - General PHYSICIAN CIGAR BANDER HAND 07/22/20 documented as of this encounter
--- OUTSIDE RECORDS SUMMARY | 2024-02-24 16:57 | XMS_ITS | Patient Health Summary ---
Author Organization [facility] [employer] Address [address] [place] [address] Care Team Providers Care Children'S Nursery Assistant Name Role Phone Deedee Huerta Primary Care Pr ovider Note from [facility] [place],non-owned Affiliates and Associated Physician Practices is amultiple site organization consisting of ambulatory clinics and hospital sitesin [place], [place], [place] and [place]. This disclosure is being madepursuant to the Care Everywhere program and may not contain all information available regarding this patient. Last updated 17.[facility] Allergies No known active allergies Medications * Be aware that medications may not be up to date on this document. Alwaysverify current medications with the patient. * clonazePAM (KLONOPIN) 0.5 MG tablet Take 0.5 mg by mouth 2 times daily * topiramate (TOPAMAX) 200 MG tablet Take 200 mg by mouth 2 times daily * sertraline (ZOLOFT) 100 MG tablet Take 100 mg by mouth 2 times daily * fenofibrate (LOFIBRA) 160 MG tablet Take 160 mg by mouth once daily Take with largest meal of the day. * ondansetron (ZOFRAN) 8 MG tablet Take 8 mg by mouth every 6 hours as needed for Nausea/Vomiting * albuterol HFA (PROAIR HFA) 108 (90 BASE) MCG/ACT inhaler Inhale 2 puffs by mouth every 6 hours as needed * Cholecalciferol (VITAMIN D3) 56552 UNITS TABS Take by mouth every 36 hours * lisinopril (PRINIVIL; ZESTRIL) 20 MG tablet Take 20 mg by mouth once daily * propranolol (INDERAL) 40 MG tablet Take 40 mg by mouth once daily * rizatriptan (MAXALT) 10 MG tablet Take 10 mg by mouth daily as needed - may repeat one time for Migraine N * MONTELUKAST SODIUM PO * carBAMazepine XR 12hr (TEGRETOL XR) 100 MG tablet Take 100 mg by mouth 3 times daily * Fexofenadine HCl (OCHOA PO) * Exenatide (BYDUREON SC) Inject subcutaneously every 7 days * canagliflozin-metFORMIN (INVOKAMET) 150-1000 MG tablet Take 1 tablet by mouth 2 times daily with morning and evening meal * Insulin Degludec (TRESIBA FLEXTOUCH SC) * levonorgestrel (MIRENA, 52 MG,) 20 MCG/24HR IUD 1 device by Intrauterine route as directed * benzonatate (TESSALON) 200 MG capsule(Started 02/08/2018) Take 1 capsule by mouth 3 times daily as needed for Cough * Insulin Glargine (BASAGLAR KWIKPEN SC) * benzonatate (TESSALON) 200 MG capsule(Started 08/26/2018) Take 1 capsule by mouth 3 times daily as needed for Cough * albuterol-ipratropium (DUO-NEB) 0.5-2.5 (3) MG/3ML nebulizer solution(Started 08/26/2018) Inhale 3 mL by mouth 4 times daily as needed for Shortness of Breath or Wheezing Social History Tobacco Use Types Packs/Day Years [...] Mass Index 41.2 09/08/2018 10:14 AM CDT Procedures * PULSE OXIMETRY - POINT OF CARE (AMB)(Performed 08/26/2018) Performed for Asthma, unspecified asthma severity, unspecified whether complicated, unspecified whether persistent (HCC) * INFLUENZA A+B - POINT OF CARE (AMB)(Performed 02/08/2018) Performed for Acute maxillary sinusitis, recurrence not specified Results * PULSE OXIMETRY - POINT OF CARE (AMB) (08/26/2018 3:15 PM CDT) Oximetry POCT 96 0 - 100 % QC Verified Yes Yes Blood BLOOD SPECIMEN / Unknown 08/26/2018 3:15 PM CDT Angelita Schilling APRN-REAL ESTATE ACQUISITION ANALYST LAB - POINT OF CA RE ORDERABLES * INFLUENZA A+B - POINT OF CARE (AMB) (02/08/2018 3:08 PM HAIR PREPARER) Influenza A Antigen Rapid Negative Negative Influenza B Antigen Rapid Negative Negative Influenza Internal Control positive NEGATIVE - POSITIVE Influenza Lot Number [id number] Influenza Expiration Date Other NASOPHARYNGEAL SWAB / Unknown 02/08/2018 3:08 PM HAIR PREPARER Angelita MCGHEEREAL ESTATE ACQUISITION ANALYST LAB - POINT OF CA RE ORDERABLES Care Teams Children'S Nursery Assistant Relationship Specialty Start Date End Date Deedee Huerta PA [address] [place] [phone] PCP - General Physician [address]Rd Pressman 02/08/18
--- OUTSIDE RECORDS SUMMARY | 2024-02-24 16:57 | XMS_ITS | Referral Summary ---
Author Organization [facility] [employer] Address [address] [facility] [facility] [place] [address] Care Team Providers Care Recovery Engineer Name Role Phone Deedee Huerta Primary Care Pr ovider Source Comments [facility] [employer],non-owned Affiliates and Associated Physician Practices is amultiple site organization consisting of ambulatory clinics and hospital sitesin [place], [place], [place] and [place]. This disclosure is being madepursuant to the Care Everywhere program and may not contain all information available regarding this patient. Last updated 17.[facility] [employer] Allergies No known active allergies Medications * [...] hours as needed Active Cholecalciferol (VITAMIN D3) 90744 UNITS TABS Take by mouth every 36 [...] Breath or Wheezing 1 Box 08/26/2018 Active Social History Tobacco Use Types Packs/Day Years [...] 09/08/2018 10:14 AM CDT Plan of Treatment Not on file Care Teams Recovery Engineer Relationship Specialty Start Date End Date Deedee Huerta PA [address] [place] [address] PCP - General Physician Doctor Of Naprapathy 02/08/18
--- OUTSIDE RECORDS SUMMARY | 2024-02-24 16:57 | XMS_ITS | Encounter Summary ---
Author Organization [facility] Address [address] [place] [address]. [place], [place] [address] [place] [address] Care Team Providers Care Hot Air Furnace Installer And Repairer Name Role Phone Jennifermary Deedee DOWELL Primary Care Provider [phone] Reason for Visit * Reason Comments Botox botox migraines 155 units * Treatment/Therapy Plan Authorization (Routine) - Closed Specialty Diagnoses / Procedures Referred By Angelita silva Referred To Contact Diagnoses Chronic migraine without aura without status migrainosus, not intractable Trigeminal neuralgia Spasmodic torticollis Procedures BOTULINUM TOXIN A PER UNIT Presley Hernandez MD [address] [place] [address] Phone: tel: fax: [facility] - [address], [address] [place] [phone] Phone: tel: Referral ID Status Reason Start Date Expiration Date Visits Re quested Visits Authorized [id number] Closed 12/14/2022 12/15/2023 8 8 Encounter Details Date Type Department Care Team (Latest Contact Info) Description 10/23/2023 3:20 PM CDT [facility] - [address], [address] [place] [phone] Presley Hernandez MD [address] [place] [address] Botox ( botox migraines 155 units/) Social History Tobacco Use Types Packs/Day Years [...] Sign Reading Time Taken Comments Blood Pressure 138/89 10/23/2023 3:29 PM CDT rec heck Pulse 91 10/23/2023 3:29 PM CDT Temperature 36.9 ??C (98.5 ??F) 10/23/2023 3:29 PM CD T Respiratory Rate - - Oxygen Saturation 99% 10/23/2023 3:29 PM CDT Inhaled Oxygen Concentration - - Weight 98.4 kg (217 lb) 10/23/2023 3:29 PM CDT Height 162.6 cm (5' 4 ) 10/23/2023 3:29 PM CDT Body Mass Index 37.25 10/23/2023 3:29 PM CDT documented in this encounter Progress Notes * Presley Hernandez MD - 10/23/2023 3:20 PM CDT Botox treatment cycle number: 11 Botox side effect: None Medication effect lasted for: 80% in 2.5 months Lot type: Buy and bill Wastage: 45 Botox Injection Procedure Informed consent: signed by patient. Confirmed: patient, procedure, safety procedures followed. Preparation: no contraindications noted to Botox, sterile preparation of site in usual fashion. Procedure tolerated: well. Complications: none. Indication : Chronic Migraines The patient was explained about the benefits and the possible side effects associated with Botox injections. The patient vocalized understanding and agreed to proceed with the injections. After the patient was prepped in a sterile manner, Botox was administered at 31 different sites andthe total amount of Botox administered was 155 units. PREEMPT protocol was followed for the administration. Per PREMPT protocol, patient was injected with botox - 155 units at 31 different sites. A. Health Occupations Teacher : 10 Units divided in 2 sites B. Procerus : 5 Units in one site C. Frontalis : 20 units divided in 4 sites D. Temporalis : 40 Units divided between 8 sites E. Occipitalis : 30 Units divided between 6 sites F. Cervical Paraspinals : 20 Units divided between 4 sites G. Trapezius : 30 Units divided in 6 sites Patient tolerated the procedure very well. There is very minimal blood loss during this procedure. There were no immediate post procedure complications. I educated the patient about the nature of the therapy, the usual therapeutic onset of the drug andthe duration of efficacy and also about the common side effects to watch out for. Return to neurology clinic 3 months documented in this encounter Plan of Treatment Upcoming Encounters Date Type Department Care Team (Late st Contact Info) Description 04/15/2024 1:00 PM ELECTRIC CRANE OPERATOR Office Visit [facility] - [address], [address] [phone] Presley Hernandez MD [address] [place] [phone] 04/30/2024 10:40 AM ELECTRIC CRANE OPERATOR [facility] - [address], [address] [place] [phone] Presley Hernandez MD [address] [place] [phone] Scheduled Orders Name Type Priority Associated Diagnoses Orde r Schedule CHEMODENERVATION MUSCLE INNERVTD, BILAT Procedures Routine Chronic migraine without aura without status migrainosus, not intractable Ordered: 10/24/2023 documented as of this encounter Visit Diagnoses Diagnosis Chronic migraine without aura without status migrainosus, not intractable- Primary Chronic migraine without aura, without mention of intractable migraine without mention of status migrainosus documented in this encounter Administered Medications Inactive Administered Medications - up to 3 most recent administrations Medication Order MAR Action Action Date Dose Rate Site botulinum toxin type A (BOTOX) injection 155 Units 155 Units, Intramuscular, Once, 1 dose, On Sat10/23/23 at 1645, * 200 unit vial *Indications:Chronic migraine without aura without status migrainosus, not intractable Given 10/23/2023 4:20 PM CDT 155 Units Other documented in this encounter Care Teams Hot Air Furnace Installer And Repairer Relationship Specialty Start Date End Date Deedee Low PA [address] [place] [address] PCP - General PHYSICIAN SPECIAL NEEDS NANNY 07/22/20 documented as of this encounter
--- OUTSIDE RECORDS SUMMARY | 2024-02-24 16:57 | XMS_ITS | Encounter Summary ---
Author Organization [facility] Address [address] [place] [address]. [place], [place] [id number] [place] [address] Care Team Providers Care Bilingual Teacher Assistant Name Role Phone Jennifermary Deedee DELMER Primary Care Provider [phone] Encounter Details Date Type Department Care Team (Latest Contact Info) Description 12/19/2023 Scan HEALTH INFO SRVCS Scanned, Doc Med [...] st Contact Info) Description 04/15/2024 1:00 PM NUCLEAR OPERATIONS SPECIALIST Office Visit [facility] Multispecialty Care - [facility] [address] [facility], [address] [place] [phone] Presley Hernandez MD [address] [place] [address] 04/30/2024 10:40 AM NUCLEAR OPERATIONS SPECIALIST Office Visit [facility] Multispecialty Care - [facility] [address] [facility], [address] [place] [address] Presley Hernandez MD [address] [place] [address] documented as of this encounter Visit Diagnoses Not on filedocumented in this encounter Care Teams Bilingual Teacher Assistant Relationship Specialty Start Date End Date Deedee Low PA [address] [place] [address] PCP - General PHYSICIAN DRILL OPERATOR 07/22/20 documented as of this encounter
--- OUTSIDE RECORDS SUMMARY | 2024-02-24 16:57 | XMS_ITS | Encounter Summary ---
Author Organization [facility] Address [address] [place] [address]. [place] [address] [place] [address] Care Team Providers Care Elevator Troubleshooter Name Role Phone Zeyadseveriano Deedee DELMER Primary Care Provider [phone] Encounter Details Date Type Department Care Team (Late Contact Info) Description 12/01/2023 Orders Only [facility] - [address], [address] [place] [phone] Presley Hernandez MD [address] [place] [phone] Social History Tobacco Use Types Packs/Day Years [...] Encounters Date Type Department Care Team (Late Contact Info) Description 04/15/2024 1:00 PM SEWING MACHINE OPERATOR PAPER BAGS [facility] [address] [facility], [address] [place] [address] Presley Hernandez MD [address] [place] [address] 04/30/2024 10:40 AM SEWING MACHINE OPERATOR PAPER BAGS Office Visit [facility] Multispecialty Care - [facility] [address] [facility], [address] [place] [phone] Presley Hernandez MD [address] [place] [address] documented as of this encounter Visit Diagnoses Not on filedocumented in this encounter Care Teams Elevator Troubleshooter Relationship Specialty Start Date End Date Deedee Lwo PA [address] [facility] [address] [place] [address] PCP - General PHYSICIAN PUBLIC POLICY PROFESSOR 07/22/20 documented as of this encounter
--- OUTSIDE RECORDS SUMMARY | 2024-02-24 16:57 | XMS_ITS | Encounter Summary ---
Author Organization [facility] Address [address] [facility] [place] [address] Care Team Providers Care Raftsman Name Role Phone Deedee Huerta Primary Care Pr ovider Reason for Visit * Reason Onset Date Comments Follow-up 02/10/2018 Encounter Details Date Type Department Care Team ([facility] Contact Info) Description 02/10/2018 Telephone [facility] [employer] [facility] [address] [phone] Provider, [facility] Follow-up Social History Tobacco Use Types Packs/Day Years Used Date Smoking Tobacco: Former Smokeless Tobacco: Never Sex and Gender Information Value Date Recorded Sex Assigned at Not on file Gender Identity Not on file Sexual Orientation Not on file documented as of this encounter Plan of Treatment Not on file documented as of this encounter Visit Diagnoses Not on filedocumented in this encounter Care Teams Raftsman Relationship Specialty Start Date End Date Deedee Huerta PA [address] [place] [address] PCP - General Physician Roll Reclaimer 02/08/18 documented as of this encounter
--- OUTSIDE RECORDS SUMMARY | 2024-02-24 16:57 | XMS_ITS | Patient Health Record ---
Author Organization [facility] Address [address] [place] [address] Care Team Providers Care Photo Lab Specialist Name Role Phone Deedee Low Primary Care Provider Unavailab Jung Ramirez Unavailable [phone] Noam Quintanilla MD Unavailable Unavailable Car Angulo Unavailable [phone] Tripp, Provider Unavailable Unavailab tobias Allergies Allergen (clinical drug ingredient) Drug/Non Drug Allergy documented on EMR Reaction Allergy Type Onset Date Status Streptococcus pneumoniae type 1 capsular polysaccharide antigen / Streptococcus pneumoniae type 10A capsular polysaccharide antigen / Streptococcus pneumoniae type 11A capsular polysaccharide antigen / Streptococcus pneumoniae type 12F capsular polysaccharide antigen / Streptococcus pneumoniae type 14 capsular polysaccharide antigen / Streptococcus pneumoniae type 15B capsular polysaccharide antigen / Streptococcus pneumoniae type 17F capsular polysaccharide antigen / Streptococcus pneumoniae type 18C capsular polysaccharide antigen / Streptococcus pneumoniae type 19A capsular polysaccharide antigen / Streptococcus pneumoniae type 19F capsular polysaccharide antigen / Streptococcus pneumoniae type 2 capsular polysaccharide antigen / Streptococcus pneumoniae type 20 capsular polysaccharide antigen / Streptococcus pneumoniae type 22F capsular polysaccharide antigen / Streptococcus pneumoniae type 23F capsular polysaccharide antigen / Streptococcus pneumoniae type 3 capsular polysaccharide antigen / Streptococcus pneumoniae type 33F capsular polysaccharide antigen / Streptococcus pneumoniae type 4 capsular polysaccharide antigen / Streptococcus pneumoniae type 5 capsular polysaccharide antigen / Streptococcus pneumoniae type 6B capsular polysaccharide antigen / Streptococcus pneumoniae type 7F capsular polysaccharide antigen / Streptococcus pneumoniae type 8 capsular polysaccharide antigen / Streptococcus pneumoniae type 9N capsular polysaccharide antigen / Streptococcus pneumoniae type 9V capsular polysaccharide antigen Pneumovax 23 fever, large local reaction Drug Allergy Active Results Component Value Reference Range Notes Spirometry Reviewed date:12/05/2023 08:07:43 AM Interpretation: Performing Lab: Notes/Report: SpiroPreBronchodilator_FVC 2.44 SpiroPostBronchodilator_FEF25_75 0 SpiroPreBronchodilator_FEF25_75 2.36 SpiroPreBronchodilator_FEV1 2.04 SpiroPrecentPredictionPost_F EF25_ 75 0 SpiroPrecentPredictionPost_FEV1 0 SpiroPrecentPredictionPost_F EV1_O VER_FVC 0 SpiroPrecentPredictionPost_FVC 0 SpiroPrecentPredictionPre_FE F25_7 5 72.6 SpiroPrecentPredictionPre_FEV1 70.1 SpiroPrecentPredictionPre_FE V1_OV ER_FVC 100.6 SpiroPrecentPredictionPre_FVC 70.1 SpiroPredicted_FEF25_75 3.25 SpiroPreBronchodilator_FEV1_ OVER_ FVC 83.7 SpiroPreBronchodilator_PEF 5.7 SpiroPostBronchodilator_FVC 0 SpiroPostBronchodilator_FEV1 0 SpiroPostBronchodilator_FEV1 _OVER _FVC 0 SpiroPostBronchodilator_PEF 0 SpiroPredicted_FVC 3.48 SpiroPredicted_FEV1 2.91 SpiroPredicted_FEV1_OVER_FVC 83.16 SpiroPredicted_PEF 6.18 Spirometry Reviewed date:11/05/2023 11:22:20 AM Interpretation:Abnormal - BD response Performing Lab: Notes/Report: Abnormal - BD response SpiroPreBronchodilator_FVC 2.34 SpiroPostBronchodilator_FEF25_75 3.44 SpiroPreBronchodilator_FEF25_75 2.51 SpiroPreBronchodilator_FEV1 2.01 SpiroPrecentPredictionPost_F EF25_ 75 105.8 SpiroPrecentPredictionPost_FEV1 93.1 SpiroPrecentPredictionPost_F EV1_O VER_FVC 105.1 SpiroPrecentPredictionPost_FVC 89.1 SpiroPrecentPredictionPre_FE F25_7 5 77.2 SpiroPrecentPredictionPre_FEV1 69.1 SpiroPrecentPredictionPre_FE V1_OV ER_FVC 102.9 SpiroPrecentPredictionPre_FVC 67.2 SpiroPredicted_FEF25_75 3.25 SpiroPreBronchodilator_FEV1_ OVER_ FVC 85.56 SpiroPreBronchodilator_PEF 4.48 SpiroPostBronchodilator_FVC 3.1 SpiroPostBronchodilator_FEV1 2.71 SpiroPostBronchodilator_FEV1 _OVER _FVC 87.38 SpiroPostBronchodilator_PEF 6.41 SpiroPredicted_FVC 3.48 SpiroPredicted_FEV1 2.91 SpiroPredicted_FEV1_OVER_FVC 83.16 SpiroPredicted_PEF 6.18 -Pneumococcal Ab (23 Serotyp e) Reviewed date:11/21/2023 04:51:04 PM Interpretation:Normal Performing Lab:[facility], [address], [facility], [place], [place] [id number], Phone - [phone], Director - PhDNein Notes/Report: Pneumo Ab Type 1* 10.7 >1.3 ug/mL Pneumo Ab Type 3* 0.2 >1.3 ug/mL Pneumo Ab Type 4* 0.9 >1.3 ug/mL Pneumo Ab Type 8* 61.6 >1.3 ug/mL Pneumo Ab Type 9 (9N)* 4.9 >1.3 ug/mL Pneumo Ab Type 12 (12F)* <0.1 >1.3 ug/mL Pneumo Ab Type 14* 29.2 >1.3 ug/mL Pneumo Ab Type 17 (17F)* >39.5 >1.3 ug/mL Pneumo Ab Type 19 (19F)* 8.1 >1.3 ug/mL Pneumo Ab Type 2* 3.8 >1.3 ug/mL Pneumo Ab Type 20* 15.7 >1.3 ug/mL Pneumo Ab Type 22 (22F)* 0.4 >1.3 ug/mL Pneumo Ab Type 23 (23F)* 8.8 >1.3 ug/mL Pneumo Ab Type 26 (6B)* 10.1 >1.3 ug/mL Pneumo Ab Type 34 (10A)* 25.5 >1.3 ug/mL Pneumo Ab Type 43 (11A)* 0.1 >1.3 ug/mL Pneumo Ab Type 5* 38.9 >1.3 ug/mL Pneumo Ab Type 51 (7F)* 4.1 >1.3 ug/mL Pneumo Ab Type 54 (15B)* 6.1 >1.3 ug/mL Pneumo Ab Type 56 (18C)* 1.7 >1.3 ug/mL Pneumo Ab Type 57 (19A)* 2.9 >1.3 ug/mL Pneumo Ab Type 68 (9V)* 0.8 >1.3 ug/mL Pneumo Ab Type 70 (33F)* 8.0 >1.3 ug/mL *This test was developed and its performance characteristics determined by [employer]. It has not been cleared or approved by the U.S. Food and Drug Administration. FLAG Interpretation: A = Abnormal, H = High, L = Low -Tetanus/Diphtheria Ab Reviewed date:11/18/2023 09:16:06 AM Interpretation:Normal Performing Lab:[address] [id number], Phone - [phone], Director - Bhavna Notes/Report: Tetanus Antitoxoid IgG Ab 1.38 <0.10 IU/mL Interpretation: Non-Protective <0.10 Protective >=0.10 Results for this test are for research purposes only by the assay's boarder steam. The performance characteristics of this product have not been established. Results should not be used as a diagnostic procedure without confirmation of the diagnosis by another medically established diagnostic product or procedure. Diphtheria Antitoxoid Ab 0.23 <0.10 IU/mL Interpretation: Non-Protective <0.10 Protective >=0.10 . For research use only. -Haemophilus influenzae B Ig G Reviewed date:11/18/2023 09:16:17 AM Interpretation:Normal Performing Lab:[address] [id number], Phone - [phone], Director - Bhavna Notes/Report: Haemophilus influenzae B IgG 1.71 NOTE: An anti-Hib level of 0.15 ug/mL is generally accepted as the minimum level for protection. Optimal protection post-vaccination requires a level greater than 1.00 ug/mL. -Immunoglobulins A/G/M, Qn, Ser Reviewed date:11/14/2023 08:14:41 AM Interpretation:Normal [facility]forming [facility] [address] [place] [id number], Phone - [phone], Director - Monica Notes/Report: Immunoglobulin G, Qn, Serum 944 538-9213 mg/d L Immunoglobulin A, Qn, Serum 128 87-352 mg/dL Immunoglobulin M, Qn, Serum 62 26-217 mg/dL Reason For Referral No Information Medications Medication SIG (Take, Route, Frequency, Duration) Notes Start Date End Date Status TOPIRAMATE 200 mg 2 caps orally once a day Active Farxiga 10 MG 1 tablet Orally Once a day for 30 day(s) 4 Active Ondansetron 4 MG 1 tablet on the tongue and allow to dissolve Orally Once a day for 30 day(s) 4 Active traZODone HCl 50 MG Oral for 30 Days Active Topiramate 200 MG 2 CAPS ORALLY ONCE A DAY *Please review and pick correct strength-formul ation from [employer] options. If intended option is not shown, [...] review and pick correct strength-formul ation from [employer] options. If intended option is not shown, discontinue and re-order from Quick Search* Not-Taking Famotidine 40 mg 1 tab(s) orally 30 mins prior to SCIT for 30 days Active Lisinopril 20 MG 1 tab(s) orally once a day Not-Taking Atorvastatin Calcium 20 MG 1 tab(s) orally once a day for 30 day(s) Not-Taking LAMOTRIGINE 200 mg 1 tab(s) orally 2 times a day Active FAMOTIDINE 40 mg 1 tab(s) orally 30 mins prior to SCIT for 30 days Active BUPROPION 300 mg/24 hours 1 tab(s) orally every 24 hours Active VITAMIN D3 50,000 intl units as directed orally once a week Active Amoxicillin-Pot Clavulanate 875-125 MG as directed orally every 12 hours for 10 day(s) 1 Not-Taking SIT (Cluster) variable - see record per schedule subcutaneous per schedule for 999 days 4 Active Montelukast Sodium 10 MG Take 1 tablet b y mouth once daily for 30 Active ZIPRASIDONE 20 mg 1 cap(s) orally 2 times a day Active MOTEGRITY 2 mg 1 tab(s) orally once a day Active DIAZEPAM 5 mg 1 tab(s) orally 3 times a day Active CARBAMAZEPINE 200 mg 1 tab(s) orally 4 times a day Active INSULIN varies subcutaneously continuous Active DOXYCYCLINE hyclate 100 mg 1 tab(s) orally 2 times a day Active PROPRANOLOL 20 mg 2 tab(s) orally qhs Active PROAIR HFA 90 mcg/inh 2 puff(s) inhaled 4 times a day, prn Active AEROCHAMBER MDI SPACER - MOUTHPIECE (ADULT) N/A As directed PO Per asthma action plan Active ADVAIR DISKUS 250 mcg-50 mcg 1 inh inhaled 2 times a day for 30 days Active ALBUTEROL SULFATE 2.5 mg/3 mL (0.083%) 3 mL by nebulizer every 6 hours for 30 day(s) Active SHERRI 24 HOUR ALLERGY 180 mg 1 tab(s) orally BID Active FLONASE SENSIMIST 27.5 mcg/inh 2 spray(s) intranasally once a day for 30 day(s) Active AUVI -Q 0.3 mg 0.3 mg [...] Once a day for 30 days Active Airsupra 90-80 MCG/ACT 2 puffs as needed Inhalation Six times a day Active SIT (TRADITIONAL) variable per schedule 9 per schedule for 999 days Active hydroCHLOROthiazide 25 MG 1 tablet in the morning Orally Once a day Active Avastin 100 MG/4ML as directed Intravenous Active Ketorolac Tromethamine 10 MG 1 tablet with food or milk as needed Orally every 6 hrs Active Vyepti 100 MG/ML as directed Intravenous Active Nurtec 75 MG 1 tablet on the tongue and allow to dissolve Orally Active Lunesta 2 MG 1 tablet immediately before bedtime Orally Once a day Active ZyrTEC Allergy 10 MG 1 tablet Orally Once a day Active lamoTRIgine 200 MG 1 tab(s) orally 2 times a day Active Losartan Potassium 50 MG 1 tab(s) orally once a day Active Pantoprazole Sodium 40 MG 1 tab(s) orally once a day for 30 day(s) Active Immunizations Vaccine Route Administration Date Status Comme nts NOC Fluzone Quadrivalent Unknown 04/03/2018 Refused Social History Tobacco Use: Social History Observation Description Date Details (start date - stop date) Former Smoker NA - NA Smoking Smart Form: Question Answer Notes Are you a: former smoker How long it has been since you last smoked? 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) Active confirmed Problem Essential hypertension (46134730) Essential (primary) hypertension (I10) Active confirmed Problem Allergic rhinitis (39813131) Other allergic rhinitis (J30.89) Active confirmed Problem Chronic sinusitis (44330611) Other chronic sinusitis (J32.8) Active confirmed Problem Adverse reaction to food (910683291) Other adverse food reactions, not elsewhere classified, subsequent encounter (T78.1XXD) Active confirmed Problem Food allergy (728621635) Allergy to other foods (Z91.018) Active confirmed Problem Allergic rhinitis caused by pollen (disorder) (74248285) Allergic rhinitis due to pollen (J30.1) Active confirmed Problem Allergic rhinitis caused by animal hair and dander (780485134831988) Allergic rhinitis due to animal (cat) (dog) hair and dander (J30.81) Active confirmed Problem Allergic rhinitis (47079562) Other allergic rhinitis (J30.89) Active confirmed Problem Uncomplicated moderate persistent asthma (227129383) Moderate persistent asthma, uncomplicated (J45.40) Active confirmed Problem Chronic allergic conjunctivitis (08799673) Other chronic allergic conjunctivitis (H10.45) Active confirmed Problem Idiopathic urticaria (80237482) Idiopathic urticaria (L50.1) Active confirmed Problem Lactose intolerance, unspecified (E73.9) Active confirmed Problem Swelling of head (323779307) Localized swelling, mass and lump, head (R22.0) Active confirmed Problem Acute cough (3084825741883243 04) Acute cough (R05.1) Active confirmed Problem Chronic cough (28836185) Chronic cough (R05.3) Active confirmed Vital Signs Oximetry 95 % 02/12/2024 Blood pressure diastolic 87 mm Hg 02/12/2024 Height 64 in 02/12/2024 Blood pressure systolic 133 mm Hg 02/12/2024 Weight 230 lbs 12/03/2023 BMI 39.48 kg/m2 12/03/2023 Encounters Encounter Location Date Provider Diagnosis [address] [address] 08/24/2023 Provider [facility] [address] [place], [place] [address] [address] [address] 11/05/2023 Jung Vidal Allergic rhinitis du e to pollen J30.1 ; Other allergic rhinitis J30.89 ; Other chronic allergic conjunctivitis H10.45 ; Other chronic sinusitis J32.8 ; Moderate persistent asthma, uncomplicated J45.40 ; Chronic cough R05.3 ; Idiopathic urticaria L50.1 ; Localized swelling, mass and lump, head R22.0 ; Viral meningitis, unspecified A87.9 ; Methicillin resistant Staphylococcus aureus infection as the cause of diseases classified elsewhere B95.62 ; Allergy to other foods Z91.018 ; Other adverse food reactions, not elsewhere classified, subsequent encounter T78.1XXD and Essential (primary) hypertension I10 [facility] [address] [address] 12/03/2023 Jung Vidal Allergic rhinitis du e to pollen J30.1 ; Other allergic rhinitis J30.89 ; Other chronic allergic conjunctivitis H10.45 ; Other chronic sinusitis J32.8 ; Moderate persistent asthma, uncomplicated J45.40 ; Chronic cough R05.3 ; Idiopathic urticaria L50.1 ; Localized swelling, mass and lump, head R22.0 ; Viral meningitis, unspecified A87.9 ; Methicillin resistant Staphylococcus aureus infection as the cause of diseases classified elsewhere B95.62 ; Allergy to other foods Z91.018 ; Other adverse food reactions, not elsewhere classified, subsequent encounter T78.1XXD and Essential (primary) hypertension I10 [facility] [address] [place] [phone] 12/18/2023 Car Angulo Allergic rhinitis du e to pollen J30.1 ; Allergic rhinitis due to animal (cat) (dog) hair and dander J30.81 ; Other allergic rhinitis J30.89 and Other chronic allergic conjunctivitis H10.45 [facility] [address] [place] [phone] 01/01/2024 Car Angulo Allergic rhinitis du e to pollen J30.1 ; Allergic rhinitis due to animal (cat) (dog) hair and dander J30.81 ; Other allergic rhinitis J30.89 and Other chronic allergic conjunctivitis H10.45 [facility] [address] [place] [phone] 01/06/2024 Car Angulo Allergic rhinitis du e to pollen J30.1 ; Allergic rhinitis due to animal (cat) (dog) hair and dander J30.81 ; Other allergic rhinitis J30.89 and Other chronic allergic conjunctivitis H10.[address] [address] 01/14/2024 Car Angulo Allergic rhinitis du e to pollen J30.1 ; Allergic rhinitis due to animal (cat) (dog) hair and dander J30.81 ; Other allergic rhinitis J30.89 and Other chronic allergic conjunctivitis H10.[address] [address] 01/23/2024 Car Angulo Allergic rhinitis du e to pollen J30.1 ; Allergic rhinitis due to animal (cat) (dog) hair and dander J30.81 ; Other allergic rhinitis J30.89 and Other chronic allergic conjunctivitis H10.[address] [address] 02/04/2024 Car Angulo Allergic rhinitis du e to pollen J30.1 ; Allergic rhinitis due to animal (cat) (dog) hair and dander J30.81 ; Other allergic rhinitis J30.89 and Other chronic allergic conjunctivitis H10.45 [facility] [address] [address] 02/12/2024 Car Angulo Allergic rhinitis du e to pollen J30.1 ; Allergic rhinitis due to animal (cat) (dog) hair and dander J30.81 ; Other allergic rhinitis J30.89 and Other chronic allergic conjunctivitis H10.[address] [address] 10/24/2023 Jung Vidal [facility] [address] [place], [place] [address] [address] 11/05/2023 Jung Vidal [address] [phone] 11/14/2023 Jung Vidal [address] [address] 11/14/2023 Jung Vidal Assessments Encounter Date Diagnosis (ICD Code) Assessment Notes Treatment Notes Treatment Clinical Notes Section Notes 11/05/2023 Other allergic rhinitis (ICD-10 - J30.89) Follow allergen avoidance, and meds as above. Continue SCIT 11/05/2023 Allergic rhinitis due to pollen (ICD-10 - J30.1) Alannah clearly suffers from atopic disease based upon our recent skin testing. Accordingly, we reintroduced a new, aggressive medication regimen, discussed nasal washes and allergy-specific avoidance measures. She initially started SCIT in early July 2017 and had been tolerating weekly build-up injections without problems. 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 She was back on MM with minimal issue but had to stop to help with a family member's medical care. Will plan on restarting SCIT via cluster build-up. Discussed continuing triple premedicating prior to SCIT. Hold BB 2 hours prior to SCIT. She knows to keep AIE on hand 2 hours after each visit. Return in one month fto restart SCIT and 3 months for E&M 12/03/2023 Other allergic rhinitis (ICD-10 - J30.89) Follow allergen avoidance, and meds as above. Continue SCIT 12/03/2023 Allergic rhinitis due to pollen (ICD-10 - J30.1) Alannah clearly suffers from atopic disease based upon our recent skin testing. Accordingly, we reintroduced a new, aggressive medication regimen, discussed nasal washes and allergy-specific avoidance measures. She initially started SCIT in early July 2017 and had been tolerating weekly build-up injections without problems. 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 She was back on MM with minimal issue but had to stop to help with a family member's medical care. We elected to restart SCIT via cluster build-up. Procedure tolerated today without issue. Continue triple premedicating prior to SCIT. Hold BB 2 hours prior to SCIT. She knows to keep AIE on hand 2 hours after each visit. Return in one week for SCIT and 7 weeks for E&M 12/18/2023 Allergic rhinitis due to pollen (ICD-10 - J30.1) 01/01/2024 Allergic rhinitis due to pollen (ICD-10 - J30.1) 01/06/2024 Allergic rhinitis due to pollen (ICD-10 - J30.1) 01/14/2024 Allergic rhinitis due to pollen (ICD-10 - J30.1) 01/23/2024 Allergic rhinitis due to pollen (ICD-10 - J30.1) 02/04/2024 Allergic rhinitis due to pollen (ICD-10 - J30.1) 02/12/2024 Allergic rhinitis due to pollen (ICD-10 - J30.1) 02/12/2024 Allergic rhinitis due to animal (cat) (dog) hair and dander (ICD-10 - J30.81) 02/04/2024 Allergic rhinitis due to animal (cat) (dog) hair and dander (ICD-10 - J30.81) 01/23/2024 Allergic rhinitis due to animal (cat) (dog) hair and dander (ICD-10 - J30.81) 01/14/2024 Allergic rhinitis due to animal (cat) (dog) hair and dander (ICD-10 - J30.81) 01/06/2024 Allergic rhinitis due to animal (cat) (dog) hair and dander (ICD-10 - J30.81) 01/01/2024 Allergic rhinitis due to animal (cat) (dog) hair and dander (ICD-10 - J30.81) 12/18/2023 Allergic rhinitis due to animal (cat) (dog) hair and dander (ICD-10 - J30.81) 12/03/2023 Other chronic allergic conjunctivitis (ICD-10 - H10.45) Given ocular signs and symptoms I encouraged allergy avoidance measures and meds as above. If symptoms persist, consider adding additional medications including intraocular antihistamine/mast cell stabilizer, PRN. Continue SCIT 11/05/2023 Other chronic allergic conjunctivitis (ICD-10 - H10.45) Given ocular signs and symptoms I encouraged allergy avoidance measures and meds as above. If symptoms persist, consider adding additional medications including intraocular antihistamine/mast cell stabilizer, PRN. Continue SCIT 12/03/2023 Other chronic sinusitis (ICD-10 - J32.8) Recurrent sinus infections occurring 6 times a year meeting JMF criteria for modified PIDD work-up. PI work-up returned normal. Vitamin D in managed by PCP. Of note, she does reprot priro LLR with pneumovax 10 years ago occuring a day later along with rash along her arm. No other systemic symptoms noted. Consider dose challenge 11/05/2023 Other chronic sinusitis (ICD-10 - J32.8) Recurrent sinus infections occurring 6 times a year meeting JMF criteria for modified PIDD work-up. Plan on obtaining modified PIDD work-up and plan on boosters based on results. Vitamin D in managed by PCP. Of note, she does reprot priro LLR with pneumovax 10 years ago occuring a day later along with rash along her arm. No other systemic symptoms noted. Consider dose challenge 12/18/2023 Other allergic rhinitis (ICD-10 - J30.89) 01/01/2024 Other allergic rhinitis (ICD-10 - J30.89) 01/06/2024 Other allergic rhinitis (ICD-10 - J30.89) 01/14/2024 Other allergic rhinitis (ICD-10 - J30.89) 01/23/2024 Other allergic rhinitis (ICD-10 - J30.89) 02/04/2024 Other allergic rhinitis (ICD-10 - J30.89) 02/12/2024 Other allergic rhinitis (ICD-10 - J30.89) 02/04/2024 Other chronic allergic conjunctivitis (ICD-10 - H10.45) 02/12/2024 Other chronic allergic conjunctivitis (ICD-10 - H10.45) 01/14/2024 Other chronic allergic conjunctivitis (ICD-10 - H10.45) 01/23/2024 Other chronic allergic conjunctivitis (ICD-10 - H10.45) 01/06/2024 Other chronic allergic conjunctivitis (ICD-10 - H10.45) 12/18/2023 Other chronic allergic conjunctivitis (ICD-10 - H10.45) 01/01/2024 Other chronic allergic conjunctivitis (ICD-10 - H10.45) 12/03/2023 Moderate persistent asthma, uncomplicated (ICD-10 - J45.40) Alannah carries a diagnosis of asthma but was previously not on a controller medication for >5 years. Initial spirometry and flow-volume loop were completely normal. Cough typically onset by PND and talking. At baseline she has had increased cough since surgery as above. Prior spirometry was performed showing decrease in FEV from 2017 by 17% and 480cc. There was also inspiratory blunting c/w VCD. No significant change in Post-BD. S/p evaluation with Yana Palacios, SHOOTING GALLERY OPERATOR who does not believe it be VCD. We elected to trial Advair given prior success with use. Since then, she reports subjective benefit with use. She has since seen Dr. Silverman who thought it may be related to MITESH inhibitor use though denies improvement since stopping. Spirometry last visit showed significant decline in FEV1 and FVC with significant improvement post-BD meeting ATS criteria for asthma. She was started on Trelegy with inital benefit thouhg with increased cough and congestion the past 4-5 days after going to a concert. COVID negative. Spritomery today essentially unchaged. Lugns clear today. Though with URI present, plan on repeating spiromtery at end of cluster. Pending results, consider biologic 11/05/2023 Moderate persistent asthma, uncomplicated (ICD-10 - J45.40) Alannah carries a diagnosis of asthma but was previously not on a controller medication for >5 years. Initial spirometry and flow-volume loop were completely normal. Cough typically onset by PND and talking. At baseline she has had increased cough since surgery as above. Prior spirometry was performed showing decrease in FEV from 2017 by 17% and 480cc. There was also inspiratory blunting c/w VCD. No significant change in Post-BD. S/p evaluation with Yana Palacios, SHOOTING GALLERY OPERATOR who does not believe it be VCD. We elected to trial Advair given prior success with use. Since then, she reports subjective benefit with use. She has since seen Dr. Silverman who thought it may be related to MITESH inhibitor use though denies improvement since stopping. Spirometry today showed significant decline in FEV1 and FVC with significant improvement post-BD meeting ATS criteria for asthma. Given this, will plan to increase Trelegy to assess benefit. Will also plan to trial Airsupra. Continue to use with spacer. Restart SCIT as above. Return in one month for repeat spirometry 12/03/2023 Chronic cough (ICD-10 - R05.3) as above 11/05/2023 Chronic cough (ICD-10 - R05.3) as above 12/03/2023 Idiopathic urticaria (ICD-10 - L50.1) Noted history of recurrent hives for the past 17-18 years occurring sporadically. Happening 2-3 times a month. Also noted eyelid swelling occurring once a week. No clear triggers. No regular NSAID use. Will treat with Benadryl PRN with benefit. Typically occurring to the chest without relation to heat or pressure. Continues on Sherri BID and nightly Singulair. Also with noted eyelid swelling in association with hives. Already keeps AIE on hand at all times. Holding daily Pepcid given ongoing PPI multiple times a day. Continue to take pictures when hives occur. Only one epsidoe in the past few months after messing in the bushes . If hives persist consider Xolair 11/05/2023 Idiopathic urticaria (ICD-10 - L50.1) Noted history of recurrent hives for the past 17-18 years occurring sporadically. Happening 2-3 times a month. Also noted eyelid swelling occurring once a week. No clear triggers. No regular NSAID use. Will treat with Benadryl PRN with benefit. Typically occurring to the chest without relation to heat or pressure. Continues on Sherri BID and nightly Singulair. Also with noted eyelid swelling in association with hives. Already keeps AIE on hand at all times. Holding daily Pepcid given ongoing PPI multiple times a day. Continue to take pictures when hives occur. Only one epsidoe in the past few months after messing in the bushes . If hives persist consider Xolair 12/03/2023 Localized swelling, mass and lump, head (ICD-10 - R22.0) Noted recurrent eyelid swelling occuring approx once a week in the setting of hives. Will plan on treating as above 11/05/2023 Localized swelling, mass and lump, head (ICD-10 - R22.0) Noted recurrent eyelid swelling occuring approx once a week in the setting of hives. Will plan on treating as above 12/03/2023 Viral meningitis, unspecified (ICD-10 - A87.9) Alannah has recovered from prior meningitis. Previously requested records from Dr. Jensen to further assess but never obtained. Continue per neurologist 11/05/2023 Viral meningitis, unspecified (ICD-10 - A87.9) Alannah has recovered from prior meningitis. Previously requested records from Dr. Jensen to further assess but never obtained. Continue per neurologist 11/05/2023 Methicillin resistant Staphylococcus aureus infection as the cause of diseases classified elsewhere (ICD-10 - B95.62) Reported prior MRSA infections. Now following with ID - Dr. Ventura with [facility]. Taking Doxy q daily. No current symptoms. Records previously requested but never obtained. Continue to follow with Dr. Ventura. 12/03/2023 Methicillin resistant Staphylococcus aureus infection as the cause of diseases classified elsewhere (ICD-10 - B95.62) Reported prior MRSA infections. Now following with ID - Dr. Ventura with [facility]. Taking Doxy q daily. No current symptoms. Records previously requested but never obtained. Continue to follow with Dr. Ventura. 12/03/2023 Allergy to other foods (ICD-10 - Z91.018) Alannah's reaction to macadamia nut in 2004 could have been an IgE-mediated process, as could her oral/cutaneous reactions to other tree nuts and peanut. Her isolated vomiting from wheat ingestion is less likely to represent IgE-mediated process. ImmunoCAPs to wheat, peanut and all available tree nuts was negative, making IgE-mediated process highly unlikely. Skin testing to tree nuts also with negative results. Passed OFC to Occupational Medicine Officer [employer] mixed nut butter without issue at prior visit. She is thus free to incorporate all tree nuts into diet. Prior ImmunoCAPs negative to macadamia. Consider oral challenge 11/05/2023 Allergy to other foods (ICD-10 - Z91.018) Alannah's reaction to macadamia nut in 2004 could have been an IgE-mediated process, as could her oral/cutaneous reactions to other tree nuts and peanut. Her isolated vomiting from wheat ingestion is less likely to represent IgE-mediated process. ImmunoCAPs to wheat, peanut and all available tree nuts was negative, making IgE-mediated process highly unlikely. Skin testing to tree nuts also with negative results. Passed OFC to Occupational Medicine Officer [place] mixed nut butter without issue at prior visit. She is thus free to incorporate all tree nuts into diet. Prior ImmunoCAPs negative to macadamia. Consider oral challenge 11/05/2023 Other adverse food reactions, not elsewhere classified, subsequent encounter (ICD-10 - T78.1XXD) Alannah's isolated oropharyngeal symptoms from fresh fruits likely represents oral allergy syndrome (OAS), a mild form of food allergy due to cross-reactivity between plant proteins on fresh produce and pollens. Food allergy testing is generally not indicated in this situation. Aeroallergen skin testing did reveal multiple pollen sensitizations. This will likely improve within one year of starting SCIT 12/03/2023 Other adverse food reactions, not elsewhere classified, subsequent encounter (ICD-10 - T78.1XXD) Alannah's isolated oropharyngeal symptoms from fresh fruits likely represents oral allergy syndrome (OAS), a mild form of food allergy due to cross-reactivity between plant proteins on fresh produce and pollens. Food allergy testing is generally not indicated in this situation. Aeroallergen skin testing did reveal multiple pollen sensitizations. This will likely improve within one year of starting SCIT 12/03/2023 Essential (primary) hypertension (ICD-10 - I10) Elevated BP w/o signs of hypertensive urgency or emergency. Continue serial checks Hold Beta-myah until 2 hours after SCIT given it's relative contraindication to SCIT in the setting of anaphylaxis 11/05/2023 Essential (primary) hypertension (ICD-10 - I10) Elevated BP w/o signs of hypertensive urgency or emergency. Continue serial checks Hold Beta-myah until 2 hours after SCIT given it's relative contraindication to SCIT in the setting of anaphylaxis 01/29/2024 Other 11/05/2023 Other 12/03/2023 Other 12/18/2023 Other 01/01/2024 Other 01/06/2024 Other 01/14/2024 Other 01/23/2024 Other 02/04/2024 Other 02/12/2024 Other Plan Of Treatment Next Appt Details Provider Name:Car Angulo , 02/26/2024 08:00:00 AM, [address], [address] [place] [address], [phone], Provider Name:Car Angulo , 03/02/2024 12:40:00 PM, [address], [address] [place] [address], [phone], Provider Name:Car Gilman Kev , 03/09/2024 08:30:00 AM, [address], [address] [place] [address], [phone], Insurance Providers Payer Name Payer Address Payer Phone Subscriber Number Group Number Insured Name Patient Relationship to Insured Coverage Start Date Coverage End Date [employer] POS II [address] [place] [address] [id number] 1 Alannah Ruano Self - patient is the insured Medical (General) History Medical History History ICD Code Anxiety disorder, unspecified Unspecified mood [affective] disorder Allergy to other foods Cough Other chronic sinusitis Gastro-esophageal reflux disease without esophagitis Type 2 diabetes mellitus without complic ations Headache Viral meningitis, unspecified Essential (primary) hypertension Aphasia MRSA Diabetes Menagitis Allergic rhinitis due to pollen J30.1 Other allergic rhinitis J30.89 Other chronic allergic conjunctivitis H1 0.45 Other adverse food reactions, not elsewh ere classified, subsequent encounter T78.1XXD Fibromyalgia M79.7 Venous engorgement, bilateral H34.823 Surgical History Surgery Date(Month/Year) sinus surgery - Dr. Quintanilla 07/29/2015 ulnar nerve transposition 10/15/2011 tonsillectomy/adenoidectomy 01/11/2006
--- OUTSIDE RECORDS SUMMARY | 2024-02-24 16:57 | XMS_ITS | Encounter Summary ---
Author Organization [facility] Address [address] [place] [address]. [place], [place] [address] [place] [address] Care Team Providers Care Check Cashier Name Role Phone Deedee Low Primary Care Provider Reason for Visit * Reason Comments Botox cervical dystonia, n euralgia 100unit * Treatment/Therapy Plan Authorization (Routine) - Closed Specialty Diagnoses / Procedures Referred By Contac t Referred To Contact Diagnoses Chronic migraine without aura without status migrainosus, not intractable Trigeminal neuralgia Spasmodic torticollis Procedures BOTULINUM TOXIN A PER UNIT Presley Hernandez MD [address] [place] [address] Phone: tel: fax: [facility] - [address], [address] [place] [phone] Phone: tel: Referral ID Status Reason Start Date Expiration Date Visits Re quested Visits Authorized [id number] Closed 12/14/2022 12/15/2023 8 8 Encounter Details Date Type Department Care Team (Latest Contact Info) Description 11/07/2023 9:40 AM CDT [facility] - [address], [address] [place] [phone] Presley Hernandez MD [address] [place] [address] Botox (cervical dystonia, neuralgia 100unit/) Social History Tobacco Use Types Packs/Day Years Used Date Smoking Tobacco: Former Cigarettes Passive Smoke Exposure: Past Smokeless Tobacco: Former Tobacco Cessation:Counseling Given: No Comments:Pt states just tried in high school [...] Sign Reading Time Taken Comments Blood Pressure 145/82 11/07/2023 10:02 AM CDT Pulse 94 11/07/2023 10:02 AM CDT Temperature 36.6 ??C (97.9 ??F) 11/07/2023 10:02 AM C DT Respiratory Rate - - Oxygen Saturation 98% 11/07/2023 10:02 AM CDT Inhaled Oxygen Concentration - - Weight 99.4 kg (219 lb 3.2 oz) 11/07/2023 10:02 AM CDT Height 162.6 cm (5' 4 ) 11/07/2023 10:02 AM CDT Body Mass Index 37.63 11/07/2023 10:02 AM CDT documented in this encounter Progress Notes * Presley Hernandez MD - 11/07/2023 9:40 AM CDT Botox treatment cycle number:9 Lot type: Buy and bill Benefits: 80% in 2 months Side effects: none Wastage: 30 Botox Injection Procedure Informed consent: signed by patient. Confirmed: patient, procedure, safety procedures followed. Preparation: no contraindications noted to Botox, sterile preparation of site in usual fashion. Procedure tolerated: well. Complications: none. Indication : Cervical dystonia The patient was explained about the benefits and the possible side effects associated with Botox injections. The patient vocalized understanding and agreed to proceed with the injections. This is a patient with cervical dystonia. We did time out procedure and confirmed patient identity and procedure planned, including target of injection. After informed consent was obtained, using aseptic technique and under EMG guidance the following muscles were injected with botulinum toxin type A (BOTOX). Under EMG Guidance We injected 15 units to left splenius capitis, 15 units to right splenius capitis, 15 units to right middle trapezius, 15 units to left middle trapezius A total of 60 units of botulinum toxin type A (BOTOX) were injected. The procedure was tolerated well without complication. will return to clinic in three months' time for repeat injections. Botox treatment cycle number: 3 Lot type: buy and bill Wastage: 5 Botox Injection Procedure Informed consent: signed by patient. Confirmed: patient, procedure, safety procedures followed. Preparation: no contraindications noted to Botox, sterile preparation of site in usual fashion. Procedure tolerated: well. Complications: none. Indication : b/lblepharospasm/neuralgia The patient was explained about the benefits and the possible side effects associated with Botox injections. The patient vocalized understanding and agreed to proceed with the injections. This is a patient with blepharospasm. We did time out procedure and confirmed patient identity and procedure planned, including target of injection. After informed consent was obtained, using aseptic technique the following areas of orbicularis oculi were injected with botulinum toxin type A (BOTOX) Right lateral lower eyelid 2.5 units. Right mediolateral eyelid: 2.5 units A total of 5 units of botulinum toxin type A (BOTOX) were injected;. The procedure was tolerated well without complication. The patient will return to clinic in three months' time for repeat injections. documented in this encounter Plan of Treatment Upcoming Encounters Date Type Department Care Team (Late st Contact Info) Description 04/15/2024 1:00 PM LAMINATE FLOOR INSTALLER Office Visit [facility] - [facility] [address] [facility], [address] [place] [address] Presley Hernandez MD [address] [place] [address] 04/30/2024 10:40 AM LAMINATE FLOOR INSTALLER Office Visit [facility] - [facility] [address] [facility], [address] [place] [address] Presley Hernandez MD 3 [place] [address] Scheduled Orders Name Type Priority Associated Diagnoses Orde r Schedule CHEMODENERVATION MUSCLE NECK UNILAT FOR SYSTONIA Procedures Routine Spasmodic torticollis Trigeminal neuralgia Ordered: 11/07/2023 NEEDLE EMG GUID W/CHEMODENERVATION Procedures Routine Spasmodic torticollis Trigeminal neuralgia Ordered: 11/07/2023 DEST,NERVE,FACIAL Procedures Routine Spasmodic torticollis Trigeminal neuralgia Ordered: 11/07/2023 documented as of this encounter Visit Diagnoses Diagnosis Spasmodic torticollis- Primary Trigeminal neuralgia documented in this encounter Administered Medications Inactive Administered Medications - up to 3 most recent administrations Medication Order MAR Action Action Date Dose Rate Site onabotulinumtoxinA (BOTOX) injection 100 Units 100 Units, Intramuscular, Once, 1 dose, On Mariaelena 11/07/23 at 1100, * 100 unit vial *Indications:Spasmodic torticollis,Trigeminal neuralgia Given 11/07/2023 10:35 AM CDT 65 Units Othe r documented in this encounter Care Teams Check Cashier Relationship Specialty Start Date End Date Deedee Low PA [address] [place] [address] PCP - General PHYSICIAN CHILLING HOOD OPERATOR 07/22/20 documented as of this encounter
--- OUTSIDE RECORDS SUMMARY | 2024-02-24 16:57 | XMS_ITS | Encounter Summary ---
Author Organization [facility] Address [address] [place] [address]. [place] [address] [place] [address] Care Team Providers Care Director Of Consulting Services Name Role Phone Zeyadseveriano Deedee DELMER Primary Care Provider [phone] Encounter Details Date Type Department Care Team (Late Contact Info) Description 12/20/2023 Therapy Plan [address], [address] [place] [phone] Presley Hernandez MD [address] [place] [address] Social History Tobacco Use Types Packs/Day Years [...] (Late Contact Info) Description 04/15/2024 1:00 PM BUSINESS CONTINUITY ANALYST [facility] [address] [facility], [address] [place] [address] Presley Hernandez MD 3 [place] [address] 04/30/2024 10:40 AM BUSINESS CONTINUITY ANALYST Office Visit [facility] Mult[facility]pecialty Care - [facility] [address] [facility], [address] [place] [address] Presley Hernandez MD [address] [place] [address] documented as of this encounter Visit Diagnoses Not on filedocumented in this encounter Care Teams Director Of Consulting Services Relationship Specialty Start Date End Date Deedee Low PA [address] [facility] [address] [place] [address] - [address] FREIGHT BRAKE COUPLER 07/22/20 documented as of this encounter
--- OUTSIDE RECORDS SUMMARY | 2024-02-24 16:57 | XMS_ITS | Encounter Summary ---
Author Organization [facility] Address [address] [place] [address]. [place], [place] [address] [place] [address] Care Team Providers Care Slope Runner Name Role Phone Jennifermary Deedee DELMER Primary Care Provider [phone] Encounter Details Date Type Department Care Team (Latest Contact Info) Description 08/08/2023 Scan HEALTH INFO SRVCS Scanned, Doc Med [...] st Contact Info) Description 04/15/2024 1:00 PM SPORTS CARTOONIST Office Visit [facility] Multispecialty Care - [facility] [address] [facility], [address] [place] [address] Presley Hernandez MD 3 [place] [address] 04/30/2024 10:40 AM SPORTS CARTOONIST Office Visit [facility] Multispecialty Care - [facility] [address] [facility], [address] [place] [address] Presley Hernandez MD 3 [place] [address] documented as of this encounter Visit Diagnoses Not on filedocumented in this encounter Care Teams Slope Runner Relationship Specialty Start Date End Date Deedee Low PA [address] [place] [address] PCP - General PHYSICIAN CONTRACT DESIGN AGENT 07/22/20 documented as of this encounter
--- OUTSIDE RECORDS SUMMARY | 2024-02-24 16:57 | XMS_ITS | Encounter Summary ---
Author Organization [facility] Address [address] [place] [address]. [place], [place] [address] [place] [address] Care Team Providers Care Director Of Recruiting Name Role Phone Jennifermray Deedee DOWELL Primary Care Provider [phone] Encounter Details Date Type Department Care Team (Latest Contact Info) Description 12/10/2023 Bridgestreamt Message Enc [facility] [address] [facility], [address] [place] [phone] Presley Hernandez MD 3 [place] [address] Insurance update and prior authorizations Social History Tobacco Use Types Packs/Day Years [...] st Contact Info) Description 04/15/2024 1:00 PM COCOA BEAN CLEANER [facility] [address] [facility], [address] [place] [address] Presley Hernandez MD 3 [place] [address] 04/30/2024 10:40 AM COCOA BEAN CLEANER [facility] [address] [facility], [address] [place] [address] Presley Hernandez MD [address] [place] [address] documented as of this encounter Visit Diagnoses Not on filedocumented in this encounter Care Teams Director Of Recruiting Relationship Specialty Start Date End Date Deedee Low PA [address] [place] [address] PCP - General PHYSICIAN HOG CONFINEMENT SYSTEM MANAGER 07/22/20 documented as of this encounter
--- OUTSIDE RECORDS SUMMARY | 2024-02-24 16:57 | XMS_ITS | Encounter Summary ---
Author Organization [facility] Address [address] [place] [address]. [place], [place] [address] [place] [address] Care Team Providers Care Minute Clerk For Basic Traffic Name Role Phone Jennifermary Deedee DELMER Primary Care Provider [phone] Encounter Details Date Type Department Care Team (Latest Contact Info) Description 11/07/2023 Scan HEALTH INFO SRVCS Scanned, Doc Med [...] st Contact Info) Description 04/15/2024 1:00 PM DIGITAL ANALYTICS MANAGER Office Visit [facility] Multispecialty Care - [facility] [address] [facility], [address] [place] [address] Presley Hernandez MD 3 [place] [address] 04/30/2024 10:40 AM DIGITAL ANALYTICS MANAGER Office Visit [facility] Mult[facility]pecialty Care - [facility] [address] [facility], [address] [place] [address] Presley Hernandez MD 3 [place] [address] documented as of this encounter Visit Diagnoses Not on filedocumented in this encounter Care Teams Minute Clerk For Basic Traffic Relationship Specialty Start Date End Date Deedee Low PA [address] [place] [address] PCP - General PHYSICIAN WOOD DOWEL MACHINE OPERATOR 07/22/20 documented as of this encounter
--- OUTSIDE RECORDS SUMMARY | 2024-02-24 16:57 | XMS_ITS | Encounter Summary ---
Author Organization [facility] Address [address] [place] [address]. [place], [place] [address] [place] [address] Care Team Providers Care Postal Mail Carrier Name Role Phone Deedee Low Primary Care Provider [phone] Encounter Details Date Type Department Care Team (Latest Contact Info) Description 01/22/2024 Travel Social History Tobacco Use Types Packs/Day [...] st Contact Info) Description 04/15/2024 1:00 PM CORPORATE DIRECTOR OF PHARMACY Office Visit [facility] - [facility] [address] [facility], [address] [place] [address] Presley Hernandez MD [address] [place] [address] 04/30/2024 10:40 AM CORPORATE DIRECTOR OF PHARMACY Office Visit [facility] - [facility] [address] [facility], [address] [place] [address] Presley Hernandez MD [address] [place] [address] documented as of this encounter Visit Diagnoses Not on filedocumented in this encounter Care Teams Postal Mail Carrier Relationship Specialty Start Date End Date Deedee Low PA [address] [facility] [address] [place] [address] PCP - General PHYSICIAN RIG MECHANIC 07/22/20 documented as of this encounter
--- OUTSIDE RECORDS SUMMARY | 2024-02-24 16:57 | XMS_ITS | Encounter Summary ---
Author Organization [facility] Address [address] [place] [address]. [place], [place] [id number] [place] [id number] Care Team Providers Care Metal Roaster Name Role Phone Jennifermary Deedee DOWELL Primary Care Provider [phone] Reason for Visit * Reason Comments Botox botox migraines 155 units * Treatment/Therapy Plan Authorization (Routine) - Pending Review Specialty Diagnoses / Procedures Referred By Angelita t Referred To Contact Diagnoses Intractable chronic migraine without aura and with status migrainosus Procedures INJECTION, ONABOTULINUMTOXINA, 1 UNIT Presley Hernandez MD [address] [place] [id number] Phone: tel: fax: [facility] - [address], [address] [place] [phone] Phone: tel: Referral ID Status Reason Start Date Expiration Date V isits Requested Visits Authorized [id number] Pending Review 01/02/2024 12/31/2024 5 5 Encounter Details Date Type Department Care Team (Latest Contact Info) Description 01/22/2024 1:40 PM POTATO GRADER Office Visit [facility] - [address], [address] [place] [address] Presley Hernandez MD [address] [place] [id number] Botox (botox migraines 155 units/) Social History Tobacco Use [...] Sign Reading Time Taken Comments Blood Pressure 155/94 01/22/2024 1:44 PM POTATO GRADER Pulse 83 01/22/2024 1:44 PM POTATO GRADER Temperature 37.1 ??C (98.8 ??F) 01/22/2024 1:44 PM CS T Respiratory Rate - - Oxygen Saturation 99% 01/22/2024 1:44 PM POTATO GRADER Inhaled Oxygen Concentration - - Weight 102.1 kg (225 lb) 01/22/2024 1:44 PM POTATO GRADER Height - - Body Mass Index 38.62 11/07/2023 10:02 AM CDT documented in this encounter Progress Notes * Presley Hernandez MD - 01/22/2024 1:40 PM CST Botox treatment cycle number: 12 Botox side effect: None Medication effect lasted [...] 155 units at 31 different sites. A. Stapler Machine : 10 Units divided in 2 sites [...] for. Return to neurology clinic 3 months TO GRADER documented in this encounter Plan of Treatment Upcoming Encounters Date Type Department Care Team (Late st Contact Info) Description 04/15/2024 1:00 PM POTATO GRADER Office Visit [facility] - [address], [facility] [address] [place] [phone] Presley Hernandez MD [address] [place] [phone] 04/30/2024 10:40 AM POTATO GRADER [facility] [place] - [address], [address] [place] [phone] Presley Hernandez MD [address] [place] [id number] Scheduled Orders Name Type Priority Associated Diagnoses Orde r Schedule CHEMODENERVATION MUSCLE INNERVTD, BILAT Procedures Routine Chronic migraine w/o aura w/o status migrainosus, not intractable Ordered: 01/22/2024 documented as of this encounter Visit Diagnoses Diagnosis Intractable chronic migraine without aura and with status migrainosus- Primary Chronic migraine without aura, with intractable migraine, so stated, with status migrainosus Chronic migraine w/o aura w/o status migrainosus, not intractable Chronic migraine without aura, without mention of intractable migraine without mention of status migrainosus documented in this encounter Administered Medications Inactive Administered Medications - up to 3 most recent administrations Medication Order MAR Action Action Date Dose Rate Site botulinum toxin type A (BOTOX) injection 155 Units 155 Units, Intramuscular, Once, 1 dose, On Sat01/22/24 at 1545, * 200 unit vial *Indications:Intractable chronic migraine without aura and with status migrainosus Given 01/22/2024 3:18 PM POTATO GRADER 155 Units Other documented in this encounter Care Teams Metal Roaster Relationship Specialty Start Date End Date Deedee Low PA [address] [place] [address] PCP - General PHYSICIAN CERTIFIED CYTOTECHNOLOGIST 07/22/20 documented as of this encounter
--- OUTSIDE RECORDS SUMMARY | 2024-02-24 16:57 | XMS_ITS | Encounter Summary ---
Author Organization [facility] Address [address] [facility] [place] [address] Care Team Providers Care Maintenance Plumber Name Role Phone Deedee Huerta Primary Care Pr ovider Reason for Visit * Reason Comments Eye Problem Sinusitis as well as nausea an d vomiting Encounter Details Date Type Department Care Team (Late st Contact Info) Description 09/08/2018 10:00 AM CDT Office Visit [facility] AT [address] [phone] Provider, [facility] Acute recurrent maxillary sinusitis (Primary Dx); Mucopurulent conjunctivitis of right eye Social History Tobacco Use Types Packs/Day Years [...] Mass Index 41.2 09/08/2018 10:14 AM CDT documented in this encounter Patient Instructions * Patient Instructions* Felipe Lewis APRN-CNP - 09/08/2018 10:27 AM CDT Bacterial Conjunctivitis is contagious until you have been on antibiotic eye drops for 24 hours. -Please wash your hands frequently and avoid touching and rubbing your eye(s) -Discard any eye makeup that you have been using. -If you wear contacts please disposed of your current ones and only open a new pair when your eye returns to normal. -Cool compresses as needed for irritation. Conjunctivitis - How to use eye drops You must be on antibiotic eye drops for at least 24 hours before returning to work or school ??? Tilt your head back. With one finger gently pull down on one lower eyelid ??? Drop the prescribed number of drops into one eye. DO NOT BLINK. Repeat for the other eye. ??? Then close both eyes WITHOUT BLINKING and block your tear ducts by using your fingers to put mild pressure on your tear ducts (where your eyes meet your nose). Stay in this position for 1-2 minutes to bathe your eyes in the medication. ??? Repeat according to the instructions on your prescription. FOLLOW-UP: If your eye(s) are not improving or worsening, or if you develop vision change or eye pain, over the next 24-48 hours you need to see an eye doctor IMMEDIATELY. documented in this encounter Progress Notes * Felipe Lewis APRN-CNP - 09/08/2018 10:28 AM CDT Subjective: Alannah Ruano is a 38 year old female who presents for evaluation: Chief Complaint Patient presents with ??? Eye Problem ??? Sinusitis as well as nausea and vomiting Primary Care Physician is DELMER Basurto. Symptoms include pt states she recently finished augmentin for a sinus infection but she is not feeling better and now she is having redness, matting and drainage from right eye. Onset of symptoms was 2 weeks ago or more, gradually worsening since that time. congestion, sinus pressure, eye symptoms. She is drinking plenty of fluids. Evaluation to date: Two weeks ago Treatment to date: Augmentin No Known Allergies Outpatient Prescriptions Marked as Taking for the 09/08/18 encounter (Office Visit) with Provider, Joesph Eid Medication Sig ??? albuterol HFA (PROAIR HFA) 108 (90 BASE) MCG/ACT inhaler Inhale 2 puffs by mouth every 6 hours as needed ??? albuterol-ipratropium (DUO-NEB) 0.5-2.5 (3) MG/3ML nebulizer solution Inhale 3 mL by mouth 4 times daily as needed for Shortness of Breath or Wheezing ??? canagliflozin-metFORMIN (INVOKAMET) 150-1000 MG tablet Take 1 tablet by mouth 2 times daily with morning and evening meal ??? carBAMazepine XR 12hr (TEGRETOL XR) 100 MG tablet Take 100 mg by mouth 3 times daily ??? Cholecalciferol (VITAMIN D3) 38418 UNITS TABS Take by mouth every 36 hours ??? clonazePAM (KLONOPIN) 0.5 MG tablet Take 0.5 mg by mouth 2 times daily ??? doxycycline hyclate (VIBRAMYCIN) 100 MG tablet Take 1 tablet by mouth 2 times daily for 10 days ??? Exenatide (BYDUREON SC) Inject subcutaneously every 7 days ??? fenofibrate (LOFIBRA) 160 MG tablet Take 160 mg by mouth once daily Take with largest meal of the day. ??? Fexofenadine HCl (OCHOA PO) ??? Insulin Degludec (TRESIBA FLEXTOUCH SC) ??? Insulin Glargine (BASAGLAR KWIKPEN SC) ??? levonorgestrel (MIRENA, 52 MG,) 20 MCG/24HR IUD 1 device by Intrauterine route as directed ??? lisinopril (PRINIVIL; ZESTRIL) 20 MG tablet Take 20 mg by mouth once daily ??? MONTELUKAST SODIUM PO ??? ondansetron (ZOFRAN) 8 MG tablet Take 8 mg by mouth every 6 hours as needed for Nausea/Vomiting ??? propranolol (INDERAL) 40 MG tablet Take 40 mg by mouth once daily ??? rizatriptan (MAXALT) 10 MG tablet Take 10 mg by mouth daily as needed - may repeat one time forMigraine N ??? sertraline (ZOLOFT) 100 MG tablet Take 100 mg by mouth 2 times daily ??? topiramate (TOPAMAX) 200 MG tablet Take 200 mg by mouth 2 times daily ??? trimethoprim-polymyxin B (POLYTRIM) 76357-2.1 UNIT/ML-% ophthalmic solution Instill 1 drop intoright eye 4 times daily for 5 days Past Medical History: Diagnosis Date ??? Anxiety ??? Asthma ??? Depression ??? Diabetes 2 ??? Environmental and seasonal allergies ??? Hypertension ??? Meningitis spinal There is no problem list on file for this patient. Past Surgical History: Procedure Laterality Date ??? LAPAROSCOPY ??? SINUS SURGERY ??? Tonsillectomy and Adenoidectomy ??? Tympanostomy ??? ULNAR NERVE TRANSPOSITION Social History Social History ??? Marital status: [...] ??? Not on file Social History Narrative Medications reviewed. Review of Systems Constitutional: Negative for fatigue, fevers, chills. Eyes: Positive for redness on right, irritation on right, thick drainage, Negative for visual blurring bilaterally, eye pain bilaterally Ears, nose, mouth, and throat: Positive for sinus trouble, congestion, Negative for earaches bilaterally, vertigo, persistent sore throat Respiratory: Negative Cardiovascular: Negative Neurological: Positive for headaches Objective: BP 128/88 (BP SITE: LEFT ARM, BP POSITION: SITTING, BP CUFF SIZE: 11) Pulse 74 Temp 98 ??F (36.7 ??C) (Oral) Resp 16 Ht 1.626 m (5' 4 ) Wt 108.9 kg (240 lb) SpO2 98% BMI 41.2 kg/m2 Skin: Physical Exam Exam General appearance: alert, cooperative, no distress Eyes: sclera and conjunctiva clear, EOMI and PERRLA, lids normal, Right Eye - conjunctivae/corneas - conjunctival injection and thick mucopurulent drainage to right inner canthus and lower conjunctiva, Left Eye - normal lid, conjunctivae, and cornea clear, pupil shape and reaction normal Ears: canals clear, tympanic membranes normal, hearing intact to voice Nose: nares open; no septal deviation is noted, mucosa erythematous and swollen, purulent rhinorrhea, maxillary tenderness bilaterally, frontal tenderness bilaterally Throat: no mucous membrane abnormalities Neck: range of motion is intact, no masses, thyroid not enlarged, no adenopathy Lungs: breath sounds normal and symmetric; no rales or wheezes Heart: regular rhythm, normal S1 and S2, without murmurs, gallops or rubs Neurologic: mental status normal; alert and oriented X 3; cranial nerves II - XII are grossly intact No results found for this or any previous visit (from the past 24 hour(s)). Assessment: . Encounter Diagnoses Name Primary? Acute recurrent maxillary sinusitis Yes ??? Mucopurulent conjunctivitis of right eye Plan: Discussed the dx and tx of sinusitis. Bacterial Conjunctivitis is contagious until you have been on antibiotic eye drops for 24 hours. -Please wash your hands frequently and avoid touching and rubbing your eye(s) -Discard any eye makeup that you have been using. -If you wear contacts please disposed of your current ones and only open a new pair when your eye returns to normal. -Cool compresses as needed for irritation. Conjunctivitis - How to use eye drops You must be on antibiotic eye drops for at least 24 hours before returning to work or school ??? Tilt your head back. With one finger gently pull down on one lower eyelid ??? Drop the prescribed number of drops into one eye. DO NOT BLINK. Repeat for the other eye. ??? Then close both eyes WITHOUT BLINKING and block your tear ducts by using your fingers to put mild pressure on your tear ducts (where your eyes meet your nose). Stay in this position for 1-2 minutes to bathe your eyes in the medication. ??? Repeat according to the instructions on your prescription. FOLLOW-UP: If your eye(s) are not improving or worsening, or if you develop vision change or eye pain, over the next 24-48 hours you need to see an eye doctor IMMEDIATELY. -Take and finish your prescriptions as directed. -If not already using, please start nasal saline wash, either Neti Pot or Sinus Rinse DAILY or a saline nasal spray 3-4 times a day. -Use guaifenesin expectorants (Maximum Strength Mucinex, Robitussin, store brand) to loosen secretions. -For cough you can use dextromethorphan (Delsym syrup, Robitussin cough capsules or store brand). Dextromethorphan is considered safe for and breast feeding women. -Increase fluid intake: drink 2 liters (2 quarts) of non-caffeinated, non- alcoholic beverages daily, drinking alcohol causes nasal and sinus membranes to swell -Steam inhalation and warm compresses to face often help relieve pressure -Avoid allergens and excessively dry heat -Sleep with head of bed elevated to encourage drainage. -Use of a humidifier if environment is heated by dry forced - air system -Avoid smoking, second-hand smoke and air pollutants. -You may try decongestants such as Sudafed (purchase at pharmacy) or Sudafed PE for congestion relief. Decongestants can keep you awake at night. Do not use decongestants if you have high blood pressure or if you are Pseudoephedrine (Sudafed) and Phenylephrine (Sudafed PE) are generally con sidered safe for breast feeding mothers. -If you are not improving or worsening, or develop facial swelling,in the next 3-5 days you must RETURN to the clinic, go to your PCP, or Urgent Care/ER to be SEEN and reevaluated. No further prescriptions or refills will be given by phone without another evaluation. Orders Placed This Encounter ??? doxycycline hyclate (VIBRAMYCIN) 100 MG tablet Sig: Take 1 tablet by mouth 2 times daily for 10 days Dispense: 20 tablet Refill: 0 May interchange for whichever salt form is preferred. ??? trimethoprim-polymyxin B (POLYTRIM) 90098-0.1 UNIT/ML-% ophthalmic solution Sig: Instill 1 drop into right eye 4 times daily for 5 days Dispense: 1 bottles Refill: 0 Continue to follow up with DELMER Basurto as directed. After Visit Summary reviewed with patient. The patient indicates understanding of these issues and agrees with the plan. Patient discharged to Home .HERNANDEZ Pacheco 09/08/2018 10:28 AM documented in this encounter Plan of Treatment Not on file documented as of this encounter Visit Diagnoses Diagnosis Acute recurrent maxillary sinusitis- Primary Acute maxillary sinusitis Mucopurulent conjunctivitis of right eye documented in this encounter Care Teams Maintenance Plumber Relationship Specialty Start Date End Date Deedee Huerta PA [address] [place] [address] PCP - General Physician Image Archivist 02/08/18 documented as of this encounter
--- OUTSIDE RECORDS SUMMARY | 2024-02-24 16:57 | XMS_ITS | Encounter Summary ---
Author Organization [facility] Address [address] [place] [address]. [place], [place] [id number] [place] [id number] Care Team Providers Care Industrial Garage Servicer Name Role Phone Deedee Low Primary Care Provider [phone] Reason for Referral * Occupational Therapy (Routine) - Closed Specialty Diagnoses / Procedures Referred By Angelita silva Referred To Contact Occupational Therapy Diagnoses Carpal tunnel syndrome on right Carpal tunnel syndrome on left Procedures OFFICE/OUTPATIENT NEW LOW MDM 30-44 MINUTES OFFICE/OUTPT VISIT,NEW,LEVL IV OFFICE/OUTPT VISIT,NEW,LEVL V OFFICE/OUTPT VISIT,EST,LEVL III OFFICE/OUTPT VISIT,EST,LEVL IV OFFICE/OUTPT VISIT,EST,LEVL V Raul Wang NP [address] [place] [address] Phone: tel: fax: [facility] [place] [address] Phone: tel: fax: Referral ID Status Reason Start Date Expiration Date V isits Requested Visits Authorized [id number] Closed Specialty Services 08/22/2023 08/21/2024 99 99 Reason for Visit * Reason Comments New Patient Bilateral carpal stu meggan syndrome * Surgical (Routine) - Pending Review Specialty Diagnoses / Procedures Referred By Contac t Referred To Contact HAND SURGERY / ORTHOPAEDICS Diagnoses Bilateral carpal tunnel syndrome Procedures OFFICE/OUTPATIENT NEW LOW MDM 30-44 MINUTES OFFICE/OUTPT VISIT,NEW,LEVL IV OFFICE/OUTPT VISIT,NEW,LEVL V OFFICE/OUTPT VISIT,EST,LEVL III OFFICE/OUTPT VISIT,EST,LEVL IV OFFICE/OUTPT VISIT,EST,LEVL V Presley Hernandez MD [address] [place] [address] Phone: tel: fax: Kalin Coyle MD [address] [place] [address] Phone: tel: fax: Referral ID Status Reason Start Date Expiration Date V isits Requested Visits Authorized [id number] Pending Review 07/08/2023 08/06/2024 99 99 Encounter Details Date Type Department Care Team (Late st Contact Info) Description 08/22/2023 8:00 AM CDT Office Visit [facility] - Mobile [address] [place], [place] [id number] [phone] Raul Wang NP [address] [place] [address] New Patient (Bilateral carpal tunnel syndrome) Social History Tobacco Use Types Packs/Day Years [...] Sign Reading Time Taken Comments Blood Pressure 137/81 08/22/2023 8:14 AM CDT Pulse 82 08/22/2023 8:14 AM CDT Temperature 36.6 ??C (97.8 ??F) 08/22/2023 8:14 AM CD T Respiratory Rate - - Oxygen Saturation 100% 08/22/2023 8:14 AM CDT Inhaled Oxygen Concentration - - Weight 99 kg (218 lb 3.2 oz) 08/22/2023 8:14 AM CDT Height 162.6 cm (5' 4 ) 08/22/2023 8:14 AM CDT Body Mass Index 37.45 08/22/2023 8:14 AM CDT documented in this encounter Progress Notes * Lali Ramirez RN - 08/22/2023 8:00 AM CDTAddended by: LALI RAMIREZ on: 08/23/2023 01:55 PM Modules accepted: Orders * Raul Wang NP - 08/22/2023 8:00 AM CDT Images from the original note were not included. OFFICE VISIT SUBJECTIVE Reason for Visit: New Patient (Bilateral carpal tunnel syndrome) History of Present Illness: 43-year-old right-hand dominant female, referred by Presley Hernandez MD, presents today for evaluation of numbness/tingling and pain. She has chronic neck pain and has had MELA at C5-C6 on 12/18/2021 and 10/05/2022. She states that the numbness, tingling and pain in her hands are improved for several months after the MELA. She has Type 2 diabetes. 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 She has a history of a crush injury to the left arm approximately 10 years ago. She states that shewas unloading a truck and her left arm was crushed by a 200# object. She states that after the injury, she had constant numbness to the small finger, she was unable to actively adduct her fingers, and that her pinky finger remained abducted. After the injury, she underwent a left ulnar nerve transpo sition. She continues to have constant numbness to the pinky finger, and her pinky finger remains in abduction and remains stable without worsening. Patient complaining of 5+ years history of a gradual onset of intermittent numbness, tingling and pain of Bilateral hands R>L involving thumb, index, and middle fingers primarily. She denies numbness, tingling and pain at the right ring and pinky fingers. Also describes associated aching pain on the volar aspect of the wrist that radiates up forearm. Inaddition describes stiffness, sensation of swelling and hot/cold sensation along affected fingers. During the day symptoms exacerbate with activities such as writing, doing housework, using her phone, using the computer, doing desk work, doing hair/make-up, driving, prolonged hold/web ui designer, prolong elbow flexion, resting arm on desk/chair. Pt also complains of right sided decreased dexterity, and dropping things and denies decreased gripstrength. She complains of left sided decreased web ui designer stremgth, decreased dexterity and dropping things which she relates to her crush injury. Positive night symptoms that wake her up 4 nights a week. Pt is frequently shaking or massaging the hands for relief. Previous treatment: denies EMG/NCS of 07/07/2023 reveals evidence of bilateral mild right worse than left median mononeuropathyat the wrist [carpal tunnel syndrome]. There is no evidence of a superimposed cervical radiculopathy. Other trauma history: states that she fractured her right wrist x 4 as a child. No other complaints. ROS: Constitutional: Negative for chills and fever. HENT: Negative for sore throat and trouble swallowing. Eyes: Negative for pain and discharge. Respiratory: Negative for chest tightness and shortness of breath. Cardiovascular: Negative for chest pain and palpitations. Gastrointestinal: Negative for abdominal pain and nausea. Endocrine: Negative for cold intolerance and heat intolerance. Genitourinary: Negative for difficulty urinating and dysuria. Skin: Negative for rash and wound. Allergic/Immunologic: Negative for immunocompromised state. Neurological: Negative for light-headedness, dizziness Hematological: Negative for adenopathy. Does not bruise/bleed easily. Psychiatric/Behavioral: Negative for agitation and confusion. History: Past Medical History: Diagnosis Date Anxiety disorder, unspecified Asthma (HHS/HCC) COVID 06/02/2022 Depression Diabetes mellitus ([facility]) GERD (gastroesophageal reflux disease) Hypertension Migraines Past Surgical History: Procedure Laterality Date ADENOIDECTOMY GASTRIC SLEEVE PROCEDURE--P 2020 REVISE ULNAR NERVE AT ELBOW Left SINUS SURGERY PROC UNLISTED TONSILLECTOMY Family History Problem Relation Name Age of Onset Hypertension Father Heart Attack Father Diabetes type II Father Stroke Father Migraines Father Other (leaking valve) Sister Migraines Sister Other (enlarged heart) Maternal Uncle Other (leaking valve) Maternal Uncle Macular Degeneration Maternal Grandmother Valve Disease Maternal Grandmother Social History Tobacco Use Smoking status: Former Types: Cigarettes Passive exposure: Past Smokeless tobacco: Former Tobacco comments: Pt states just tried in high school Vaping Use Vaping status: Never Used Substance Use Topics Alcohol use: Yes Comment: occasionally Drug use: Yes Comment: marijuana cream on elbow Medications and Allergies: Current Outpatient Medications: albuterol sulfate HFA 108 (90 Base) MCG/ACT inhaler, Inhale 2 puffs into the lungs every 6 (six) hours as needed for Wheezing., Disp: , Rfl: AMZEEQ 4 % Foam, , Disp: , Rfl: atorvastatin (LIPITOR) 40 MG tablet, atorvastatin 40 mg tablet TAKE 1 TABLET BY MOUTH ONCE DAILY WITH DINNER, Disp: , Rfl: bevacizumab (AVASTIN) 0.625 mg/0.025 ml ophthalmic injection (NICU), 0.025 mLs (0.625 mg total) by Intravitreal route once., Disp: , Rfl: buPROPion (WELLBUTRIN) 100 MG tablet, Take 1 tablet (100 mg total) by mouth 2 (two) times daily., Disp: , Rfl: carBAMazepine (TEGRETOL) 200 MG tablet, TAKE 1/2 (ONE-HALF) TABLET BY MOUTH THREE TIMES DAILY, Disp: 135 tablet, Rfl: 0 cetirizine 10 MG tablet, Take 1 tablet (10 mg total) by mouth daily., Disp: , Rfl: Continuous Blood Gluc Sensor (DEXCOM G6 SENSOR) Misc, , Disp: , Rfl: Continuous Blood Gluc Transmit (DEXCOM G6 TRANSMITTER) Misc, , Disp: , Rfl: diazePAM 5 MG tablet, Take 1 tablet (5 mg total) by mouth every 8 (eight) hours as needed for Anxiety., Disp: , Rfl: diphenhydrAMINE 25 MG capsule, Take 1 capsule (25 mg total) by mouth every 6 (six) hours as needed for Itching., Disp: , Rfl: doxycycline hyclate 100 MG tablet, Take 1 tablet (100 mg total) by mouth daily. on an empty stomach, Disp: , Rfl: EPINEPHrine (EPIPEN) 0.3 MG/0.3ML injection, Auvi-Q 0.3 mg/0.3 mL injection, auto-injector ADMINISTER 0.3 MG IN THE MUSCLE 1 TIME, Disp: , Rfl: eszopiclone (LUNESTA) 1 MG tablet, Take 1 tablet (1 mg total) by mouth nightly at bedtime. at bedtime., Disp: , Rfl: fenofibrate 160 MG tablet, Take 1 tablet (160 mg total) by mouth daily., Disp: , Rfl: fluticasone propionate (FLONASE) 50 MCG/ACT nasal spray, fluticasone propionate 50 mcg/actuation nasal spray,suspension inhale 2 sprays each nostril daily, Disp: , Rfl: fluticasone-salmeterol (ADVAIR DISKUS) 250-50 MCG/ACT inhaler, 2 (two) times daily., Disp: , Rfl: Glucagon (BAQSIMI ONE PACK) 3 MG/DOSE Powder, Baqsimi 3 mg/actuation nasal spray USE 1 SPRAY INTO ONE NOSTRIL ONCE DIRECTED FOR LOW BLOOD SUGAR, Disp: , Rfl: hydroCHLOROthiazide (MICROZIDE) 12.5 MG capsule, Take 1 capsule (12.5 mg total) by mouth daily., Disp: , Rfl: insulin aspart 100 UNIT/ML injection (PEN), Inject into the skin 3 (three) times daily before meals., Disp: , Rfl: insulin aspart 100 UNIT/ML injection (VIAL), Inject into the skin 3 (three) times daily before meals., Disp: , Rfl: Insulin Disposable Pump (OMNIPOD DASH PODS, GEN 4,) Misc, Omnipod Dash Pods (Gen 4), Disp: , Rfl: insulin lispro (HUMALOG) 100 UNIT/ML injection (VIAL), Inject 10,000 Units into the skin once., Disp: , Rfl: JARDIANCE 25 MG tablet, Take 1 tablet (25 mg total) by mouth daily., Disp: , Rfl: ketorolac (TORADOL) 10 MG tablet, Take 1 tablet (10 mg total) by mouth every 6 (six) hours as needed for Pain., Disp: 20 tablet, Rfl: 11 lamoTRIgine 100 MG tablet, Take 1 tablet (100 mg total) by mouth 2 (two) times daily., Disp: , Rfl: losartan (COZAAR) 50 MG tablet, Take 1 tablet (50 mg total) by mouth daily., Disp: , Rfl: montelukast 10 MG tablet, Take 1 tablet (10 mg total) by mouth nightly at bedtime., Disp: , Rfl: ondansetron (ZOFRAN ODT) 4 MG disintegrating tablet, Take 1 tablet (4 mg total) by mouth every 8 (eight) hours as needed for Nausea., Disp: 20 tablet, Rfl: 11 OZEMPIC 1 mg/dose injection (PEN), Inject 1 mg into the skin once a week., Disp: , Rfl: pantoprazole EC (PROTONIX) 40 MG tablet, Take 1 tablet (40 mg total) by mouth 2 (two) times daily.,Disp: , Rfl: phentermine (ADIPEX-P) 37.5 MG tablet, Take 1 tablet (37.5 mg total) by mouth before breakfast., Disp: , Rfl: propranolol (INDERAL) 20 MG tablet, Take 1 tablet by mouth twice daily, Disp: 120 tablet, Rfl: 0 RHOFADE 1 % Cream, , Disp: , Rfl: rimegepant (NURTEC) 75 MG disintegrating tablet, Take 1 tablet (75 mg total) by mouth as needed. Max of 1 tablet (75 mg) in 24 hours., Disp: 16 tablet, Rfl: 11 SOOLANTRA 1 % Cream, APPLY A PEA SIZED AMOUNT TO RED AREAS ON THE FACE EVERY NIGHT AT BEDTIME, Disp: , Rfl: topiramate (TOPAMAX) 200 MG tablet, Take 1 tablet (200 mg total) by mouth 2 (two) times daily., Disp: 60 tablet, Rfl: 6 traZODone (DESYREL) 50 MG tablet, TAKE 1 TO 2 TABLETS BY MOUTH ONCE DAILY AT NIGHT, Disp: , Rfl: triamcinolone (KENALOG) 0.1 % ointment, triamcinolone acetonide 0.1 % topical ointment, Disp: , Rfl: ubrogepant (UBRELVY) 100 MG tablet, Take 1 tablet (100 mg total) by mouth 2 (two) times daily as needed. Max of 2 tablets (200 mg) in 24 hours, Disp: 16 tablet, Rfl: 11 vitamin D2, ergocalciferol, (DRISDOL) 1.25 mg capsule, TAKE 1 CAPSULE BY MOUTH ONCE A WEEK DIRECTED, Disp: , Rfl: MOTEGRITY 2 MG Tab, Take 1 tablet by mouth daily., Disp: , Rfl: RABEprazole EC (ACIPHEX) 20 MG tablet, Take 1 tablet (20 mg total) by mouth 2 (two) times daily., Disp: , Rfl: Review of patient's allergies indicates: Allergen Reactions Mushroom Extract Complex Anaphylaxis Pecans Anaphylaxis OBJECTIVE Vital Signs: Filed Vitals: 08/22/23 0814 BP: 137/81 Pulse: 82 Temp: 97.8 ??F (36.6 ??C) TempSrc: Temporal SpO2: 100% Weight: 99 kg (218 lb 3.2 oz) Height: 1.626 m (5' 4 ) Body mass index is 37.45 kg/m??. Physical Exam: Physical Exam Constitutional: She is oriented to person, place, and time. She appears obese and well-developed. HENT: Head: Normocephalic. Eyes: EOM are normal. Lymph nodes: No palpable lymphadenopathy involving bilateral upper extremities. Cardiovascular: Intact distal pulses. Pulmonary/Chest: Effort normal. No respiratory distress. Neurological: She is alert and oriented to person, place, and time. Psychiatric: She has a normal mood and affect. Upper Extremity Exam: Right Upper Extremity Upper Arm : no tenderness, no swelling, no masses, no deformities Elbow: Inspection/Palpation: no tenderness, no swelling, no erythema, no induration, no bruising. All muscle compartments soft, no joint effusion present, no deformities noted, no masses present, no arthritic changes. Negative lateral/medial epicondylitis provocation test Range of Motion: Active and Passive ROM within functional range for age/activity level Strength: flexion and extension 5/5 Stability: no joint instability on provocative testing Tests/Signs: Tinel's and compression sign negative over cubital tunnel Forearm: no tenderness to palpation, no swelling, no forearm deformities noted, no masses present Wrist: Inspection/Palpation: no tenderness, no swelling, no erythema, no induration, no bruising. All muscle compartments soft, no joint effusion present, no deformities noted, no masses present, no arthritic changes, no crepitus noted in wrist/carpus Range of Motion: Active and Passive ROM within functional range for age/activity level Strength: flexion and extension and lateral deviation 5/5 Stability: no joint instability on provocative testing Tests/Signs: Tinel's and compression sign negative over carpal tunnel, Martín test negative, Froment's negative Hand : Inspection/Palpation: no tenderness, no swelling, no erythema, no induration, no bruising. All muscle compartments soft, no joint effusion present, no deformities noted, no masses present, no arthritic changes. No crepitus hand/fingers on ROM testing, no deformities of hand or fingers Range of Motion: Active and passive ROM within functional range for age/activity level Strength: all muscles 5/5 Stability: no joint instability on provocative testing Sensation: hand sensory exam intact Muscle Tone: tone normal Muscle Bulk: muscle bulk normal Skin: no skin lesions or discoloration Vascular Exam: radial artery pulse 2, ulnar artery pulse 2, capillary refill < 2 seconds Left Upper Extremity Upper Arm : no tenderness, no swelling, no masses, no deformities Elbow : Inspection/Palpation: well healed surgical scar at the medial elbow. No tenderness, no swelling, noerythema, no induration, no bruising. All muscle compartments soft, no joint effusion present, no deformities noted, no masses present, no arthritic changes. Negative lateral/medial epicondylitis provocation test Range of Motion: Active and Passive ROM within functional range for age/activity level Strength: flexion and extension 5/5 Stability: no joint instability on provocative testing Tests/Signs: Tinel's and compression sign negative over cubital tunnel Forearm: no tenderness to palpation, no swelling, no forearm deformities noted, no masses present Wrist: Inspection/Palpation: no tenderness, no swelling, no erythema, no induration, no bruising. All muscle compartments soft, no joint effusion present, no deformities noted, no masses present, no arthritic changes, no crepitus noted in wrist/carpus Range of Motion: Active and Passive ROM within functional range for age/activity level Strength: flexion and extension and lateral deviation 5/5 Stability: no joint instability on provocative testing Tests/Signs: Tinel's and compression sign positive over carpal tunnel, Martín test negative, Froment's negative Hand : Inspection/Palpation: +Wartenbergs, no clawing, no tenderness, no swelling, no erythema, no induration, no bruising. All muscle compartments soft, no joint effusion present, no deformities noted, no masses present, no arthritic changes. No crepitus hand/fingers on ROM testing, no deformities of hand or fingers Range of Motion: Unable to touch thumb to pinky finger. Minimal active adduction of fingers againstresistance, otherwise active and passive ROM within functional range for age/activity level Strength: finger adduction 3/5, Environmental Aid strength 4/5 otherwise all other muscles 5/5 Stability: no joint instability on provocative testing Sensation: subjective decrease in sensation to the ulnar nerve distribution, otherwise hand sensoryexam intact Muscle Tone: tone normal Muscle Bulk: muscle bulk normal Skin: no skin lesions or discoloration Vascular Exam: radial artery pulse 2, ulnar artery pulse 2, capillary refill < 2 seconds Recent Imaging: MRI of the cervical spine WWO contrast of 10/25/2021 reveals Findings: There is straightening of the normal cervical lordosis that is likely positional. The cervical vertebral bodies and facets are well aligned. The cervical vertebral body heights are preserved. There is incomplete segmentation of the C3 and C4 vertebral bodies. There is no abnormal prevertebral or par aspinal soft tissue swelling. The cervical spinal cord is a normal signal throughout its course. There is no abnormal enhancement of the cervical spinal cord. C2-3: No significant spinal canal or neural foraminal stenosis. C3-4: No significant spinal canal stenosis. Uncovertebral joint hypertrophy. Moderate left neural foraminal stenosis. No right neural foraminal stenosis. C4-5: Disc bulge impressing the ventral thecal sac. Mild spinal canal stenosis. Uncovertebral jointhypertrophy. Mild to moderate bilateral neural foraminal stenosis. C5-6: No significant spinal canal stenosis. Uncovertebral joint hypertrophy. Mild to moderate left neural foraminal stenosis. Mild right neural foraminal stenosis. C6-7: No significant spinal canal or neural foraminal stenosis. C7-T1: No significant spinal canal or neural foraminal stenosis. IMPRESSION: Mild multilevel cervical spondylosis, as described above. ASSESSMENT Alannah was seen today for new patient. Diagnoses and all orders for this visit: Carpal tunnel syndrome on right - Ambulatory referral to Occupational Therapy Carpal tunnel syndrome on left - Ambulatory referral to Occupational Therapy Cubital tunnel syndrome on right - provocative signs, asymptomatic Cervical spondylosis Injury of left ulnar nerve, unspecified injury location, sequela PLAN Treatment/Counselling: Carpal Tunnel Syndrome Discussed the etiology, pathophysiology and natural history of nerve compression neuropathies, including carpal tunnel, cubital tunnel and double crush phenomenon including a detailed explanation of anatomy. Patient provided with the following educational handout: Carpal Tunnel Syndrome, Cubital Tunnel Syndrome, Numbness and Tingling by the [place] [employer] Detailed review of non-operative and operative treatment options were discussed with patient including indications, risks and benefits. Treatment criteria such as nerve function status and quality oflife were discussed. Options such as NSAIDs, splinting, OT, oral and injected steroids, activity modification, open surgery and endoscopic surgery were discussed. Discussed risks of permanent nerve function deterioration associated with increase duration and/or severity of symptoms/nerve compression. Discussed possible risk of nerve entrapment from thickened (epineurum) tissue surrounding nerve which could require a separate procedure. Discussed surgical risks including but not limited to, infection, bleeding, injury to surrounding structures, cicatrix, recurrence, joint stiffness, joint pain, chronic swelling, incisional tenderness, chronic numbness, need of further surgery, possible anesthesia complications. Possible need of post-operative rehabilitation was also discussed. Acknowledgment of shared decision making. Patient voices understanding and wishes to proceed with bilateral nighttime bracing, OT referral. Observation for cubital tunnel syndrome as patient is asymptomatic. Splint use was discussed and demonstrated with appropriate return-demonstration of use. Discussed comfort measures: taking stretch breaks throughout the day - especially during prolonged desk work; avoiding heavy gripping and repetitive vibratory tasks, avoid repetitive activities that cause pain and begin to modify activities as needed. All questions answered to the patient's satisfaction. Verbalized understanding of all instructions. Return to the clinic in 6 - 8 weeks if no improvement, sooner if symptoms worsen. Injury of left ulnar nerve, unspecified injury location, sequela Sensory-motor deficits along ulnar distribution seem to be a result of the original injury and subsequent damage, and have not shown signs of further deterioration. Therefore subsequent treatments are not likely to be of benefit. I personally spent a total of 40 minutes on the day of the encounter. This includes [id number] and que-ebzt-[id number]-face time I provided on the day of the encounter & excludes time spent performing separately reportable services RAUL WANG NP 08/22/2023 Cc. DELMER BELL MD Cosigned by Kalin Coyle MD at 08/27/2023 1:34 PM CDT documented in this encounter Plan of Treatment Upcoming Encounters Date Type Department Care Team (Late st Contact Info) Description 04/15/2024 1:00 PM BRANCH ACCOUNT EXECUTIVE [facility] [address], [address] [place] [address] Presley Hernandez MD [address] [place] [address] 04/30/2024 10:40 AM BRANCH ACCOUNT EXECUTIVE Office Visit [facility] [address] [facility], [address] [place] [address] Presley Hernandez MD [address] [place] [address] Scheduled Referrals Name Type Priority Associated Diagnoses Orde r Schedule Ambulatory referral to Occupational Therapy Referral Routine Carpal tunnel syndrome on right Carpal tunnel syndrome on left Ordered: 08/23/2023 documented as of this encounter Visit Diagnoses Diagnosis Carpal tunnel syndrome on right- Primary Carpal tunnel syndrome Carpal tunnel syndrome on left Carpal tunnel syndrome Cubital tunnel syndrome on right Lesion of ulnar nerve Cervical spondylosis Cervical spondylosis without myelopathy Injury of left ulnar nerve, unspecified injury location, sequela documented in this encounter Care Teams Industrial Garage Servicer Relationship Specialty Start Date End Date Deedee Lwo PA [address] [place] [address] PCP - General PHYSICIAN BENEFITS ANALYST 07/22/20 documented as of this encounter
--- OUTSIDE RECORDS SUMMARY | 2024-02-24 16:57 | XMS_ITS | Encounter Summary ---
Author Organization [facility] Address [address] [place] [address]. [place] [address] [place] [address] Care Team Providers Care Insolvency Practitioner Name Role Phone Jennifermary Deedee DOWELL Primary Care Provider [phone] Reason for Visit * Reason Onset Date Comments Prior Authorization 11/05/2023 Encounter Details Date Type Department Care Team (Late st Contact Info) Description 11/05/[address] [facility]ty Care - [facility] [address] [facility], [address] [place] [phone] Presley Hernandez MD 3 [place] [address] Prior Authorization Social History Tobacco Use Types Packs/Day Years [...] Progress Notes * Lizy Suresh RN - 11/07/2023 10:34 AM CDT Approved on November 05 by [employer] 2017 [employer] Request Reference Number: [id number]. NURTEC TAB 75MG ODT is approved through 11/05/2024. * Lizy Suresh RN - 11/05/2023 11:50 AM CDT PA for Nurtec started on CMM. documented in this encounter Plan of Treatment Upcoming Encounters Date Type Department Care Team (Late st Contact Info) Description 04/15/2024 1:00 PM ANIMAL ANATOMY TEACHER Office Visit [facility] Care - [facility] [address] [facility], [address] [place] [phone] Presley Hernandez MD 3 [place] [address] 04/30/2024 10:40 AM ANIMAL ANATOMY TEACHER Office Visit [facility] Care - [facility] [address] [facility], [address] [place] [address] Presley Hernandez MD [address] [place] [address] documented as of this encounter Visit Diagnoses Not on filedocumented in this encounter Care Teams Insolvency Practitioner Relationship Specialty Start Date End Date Deedee Low PA [address] [place] [address] PCP - General PHYSICIAN CONSTRUCTION SAFETY CONSULTANT 07/22/20 documented as of this encounter
--- OUTSIDE RECORDS SUMMARY | 2024-02-24 16:57 | XMS_ITS | Encounter Summary ---
Author Organization [facility] Address [address] [place] [address]. [place], [place] [address] [place] [address] Care Team Providers Care Dental Ceramist Name Role Phone Deedee Low Primary Care Provider [phone] Reason for Visit * Reason Comments Botox botox cervical dysto isabel, neuralgia 100unit * Treatment/Therapy Plan Authorization (Routine) - Authorized Specialty Diagnoses / Procedures Referred By Angelita t Referred To Contact Diagnoses Spasmodic torticollis Presley Hernandez MD [address] [place] [address] Phone: tel: fax: [facility] - [address], [address] [place] [address] Phone: tel: Referral ID Status Reason Start Date Expiration Date V isits Requested Visits Authorized [id number] Authorized 01/14/2024 01/12/2025 4 4 Encounter Details Date Type Department Care Team (Latest Contact Info) Description 01/30/2024 10:40 AM CURRENCY COUNTER Office Visit [address], [address] [place] [address] Presley Hernandez MD 3 [place] [address] Botox (botox cervical dystonia, neuralgia 100unit/) Social History Tobacco Use [...] Comments Blood Pressure 148/91 01/30/2024 11:00 AM CURRENCY COUNTER Pulse 91 01/30/2024 11:00 AM CURRENCY COUNTER Temperature 36.7 ??C (98.1 ??F) 01/30/2024 1 1:00 AM CURRENCY COUNTER Respiratory Rate - - Oxygen Saturation 96% 01/30/2024 11: 00 AM CURRENCY COUNTER Inhaled Oxygen Concentration - - Weight 102.1 kg (225 lb 1.6 oz) 024 11:00 AM CURRENCY COUNTER Height 162.6 cm (5' 4 ) 01/30/2024 11:0 0 AM CURRENCY COUNTER Body Mass Index 38.64 01/30/2024 11:00 AM CURRENCY COUNTER documented in this encounter Progress Notes * Presley Hernandez MD - 01/30/2024 10:40 AM CST Botox treatment cycle number: 10 Lot type: Buy and bill Benefits: 80% in 2 months Side effects: none Wastage: 45 Botox Injection Procedure Informed consent: [...] capitis, 15 units to right splenius capitis, 10 units to right middle trapezius, 10 units to left middle trapezius A total of 50 units of botulinum toxin type A (BOTOX) were injected. The procedure was tolerated well without complication. will return to clinic in three months' time for repeat injections. Botox treatment cycle number: 3 Lot type: buy and bill Wastage: 0 Botox Injection Procedure Informed consent: signed by patient. Confirmed: patient, procedure, safety procedures followed. Preparation: no contraindications noted to Botox, sterile preparation of site in usual fashion. Procedure tolerated: well. Complications: none. Indication : right blepharospasm/neuralgia The patient was explained about the benefits [...] in three months' time for repeat injections. ENCY COUNTER documented in this encounter Plan of Treatment Upcoming Encounters Date Type Department Care Team (Late st Contact Info) Description 04/15/2024 1:00 PM CURRENCY COUNTER Office Visit [facility] Multispecialty Care - [facility] [address] [facility], [address] [place] [address] Presley Hernandez MD [address] [place] [address] 04/30/2024 10:40 AM CURRENCY COUNTER Office Visit [facility] Multispecialty Care - [facility] [address] [facility], [address] [place] [address] Presley Hernandez MD 3 [place] [address] Scheduled Orders Name Type Priority Associated Diagnoses Orde r Schedule CHEMODENERVATION MUSCLE NECK UNILAT FOR SYSTONIA Procedures Routine Spasmodic torticollis Ordered: 01/31/2024 NEEDLE EMG GUID W/CHEMODENERVATION Procedures Routine Spasmodic torticollis Ordered: 01/31/2024 DEST,NERVE,FACIAL Procedures Routine Hemifacial spasm of right side of face Ordered: 01/31/2024 documented as of this encounter Visit Diagnoses Diagnosis Spasmodic torticollis- Primary Hemifacial spasm of right side of face documented in this encounter Administered Medications Inactive Administered Medications - up to 3 most recent administrations Medication Order MAR Action Action Date Dose Rate Site onabotulinumtoxinA (BOTOX) injection 100 Units 100 Units, Intramuscular, Once, 1 dose, On Mariael[place] 01/30/24 at 1145, * 100 unit vial *Indications:Spasmodic torticollis Given 01/30/2024 11:27 AM CURRENCY COUNTER 55 Units Othe r documented in this encounter Care Teams Dental Ceramist Relationship Specialty Start Date End Date Deedee Low PA [address] [place] [address] PCP - General PHYSICIAN THERAPEUTIC CASE MANAGER 07/22/20 documented as of this encounter
--- OUTSIDE RECORDS SUMMARY | 2024-02-24 16:57 | XMS_ITS | Encounter Summary ---
Author Organization [facility] Address [address] [place] [address]. [place], [place] [address] [place] [address] Care Team Providers Care Pressure Dispatcher Name Role Phone Jennifermary Deedee DELMER Primary Care Provider [phone] Encounter Details Date Type Department Care Team (Late Contact Info) Description 12/24/2023 Antriat Message Enc [facility] [address] [facility], [address] [place] [address] Presley Hernandez MD 3 [place] [address] FMLA Social History Tobacco Use Types Packs/Day [...] (Late Contact Info) Description 04/15/2024 1:00 PM TEACHER OF GIFTED STUDENTS [facility] [address] [facility], [address] [place] [address] Presley Hernandez MD 3 [place] [address] 04/30/2024 10:40 AM TEACHER OF GIFTED STUDENTS Office [facility] [address] [facility], [address] [place] [address] Presley Hernandez MD [address] [place] [address] documented as of this encounter Visit Diagnoses Not on filedocumented in this encounter Care Teams Pressure Dispatcher Relationship Specialty Start Date End Date Deedee Low PA [address] [place] [address] PCP - General PHYSICIAN REMEDY DEVELOPER 07/22/20 documented as of this encounter
--- OUTSIDE RECORDS SUMMARY | 2024-02-24 16:57 | XMS_ITS | Encounter Summary ---
Author Organization [facility] Address [address] [place] [address] Care Team Providers Care Thread Cutter Name Role Phone Deedee Huerta Primary Care Pr ovider Reason for Visit * Reason Comments Cough sinus pressure Encounter Details Date Type Department Care Team (Late st Contact Info) Description 08/26/2018 2:40 PM CDT Office Visit [facility] AT [address] [phone] Provider, [facility] Acute maxillary sinusitis, recurrence not specified (Primary Dx); Asthma, unspecified asthma severity, unspecified whether complicated, unspecified whether persistent (HCC); Medication refill; Hypertension, unspecified type Social History Tobacco Use Types Packs/Day Years Used Date Smoking Tobacco: Former Smokeless Tobacco: Never Sex and Gender Information Value Date Recorded Sex Assigned at Not on file Gender Identity Not on file Sexual Orientation Not on file documented as of this encounter Last Filed Vital Signs Vital Sign Reading Time Taken Comments Blood Pressure 146/100 08/26/2018 2:56 PM CDT Pulse 100 08/26/2018 2:56 PM CDT Temperature 36.8 ??C (98.3 ??F) 08/26/2018 2:56 PM CD T Respiratory Rate 20 08/26/2018 2:56 PM CDT Oxygen Saturation 96% 08/26/2018 2:56 PM CDT Inhaled Oxygen Concentration - - Weight 108.9 kg (240 lb) 08/26/2018 2:56 PM CDT Height 162.6 cm (5' 4 ) 08/26/2018 2:56 PM CDT Body Mass Index 41.2 08/26/2018 2:56 PM CDT documented in this encounter Patient Instructions * Patient Instructions* Angelita Schilling, KHARI-SHEET METAL PATTERN CUTTER - 08/26/2018 3:05 PM CDT Cold Symptoms LAWYER: Cold symptoms include sneezing, dry throat, a stuffy nose, headache, watery eyes, and a cough. Yourcough may be dry, or you may cough up mucus. You may also have muscle aches, joint pain, and tiredness. Rarely, you may have a fever. Cold symptoms occur from inflammation in your upper respiratory system caused by a virus. Most colds go away without treatment. Seek care immediately if: ?? You have increased tiredness and weakness. ?? You are unable to eat. ?? Your heart is beating much faster than usual for you. ?? You see white spots in the back of your throat and your neck is swollen and sore to the touch. ?? You see pinpoint or larger reddish-purple dots on your skin. Contact your healthcare provider if: ?? You have a fever higher than 102??F (38.9??C). ?? You have new or worsening shortness of breath. ?? You have thick nasal drainage for more than 2 days. ?? Your symptoms do not improve or get worse within 5 days. ?? You have questions or concerns about your condition or care. Treatment for cold symptoms may include NSAIDS to decrease muscle aches and fever. Cold medicines may also be given to decrease coughing, nasal stuffiness, sneezing, and a runny nose. Manage your cold symptoms: The following may help relieve cold symptoms, such as a dry throat and congestion: ?? Gargle with mouthwash or warm salt water as directed. ?? Suck on throat lozenges or hard candy. ?? Use a cold or warm vaporizer or humidifier to ease your breathing. ?? Rest for at least 2 days and then as needed to decrease tiredness and weakness. ?? Use petroleum based jelly around your nostrils to decrease irritation from blowing your nose. ?? Drink plenty of liquids. Liquids will help thin and loosen thick mucus so you can cough it up. Liquids will also keep you hydrated. Ask your healthcare provider which liquids are best for you and how much to drink each day. Prevent the spread of germs by washing your hands often. You can spread your cold germs to others for at least 3 days after your symptoms start. Do not share items, such as eating utensils. Cover your nose and mouth when you cough or sneeze using the crook of your elbow instead of your hands. Throwused tissues in the garbage. Do not smoke: Smoking may worsen your symptoms and increase the length of time you feel sick. Talk with your healthcare provider if you need help to stop smoking. Follow up with your healthcare provider as directed: Write down your questions so you remember to ask them during your visits. ?? Copyright [employer] 2019 Information is for End User's use only and may not be sold, redistributed or otherwise used for commercial purposes. All illustrations and images included in CareNotes?? are the copyrighted property of [employer] or [employer] The above information is an braiding machine operator only. It is not intended as medical advice for individual conditions or treatments. Talk to your doctor, nurse or pharmacist before following any medical regimen to see if it is safe and effective for you. Acute Cough LAWYER: An acute cough can last up to [...] ask them during your visits. ?? Copyright [employer] 2019 Information is for End User's use only and may not be sold, redistributed or otherwise used for commercial purposes. All illustrations and images included in CareNotes?? are the copyrighted property of [employer] or [employer] The above information is an braiding machine operator only. It is not intended as medical advice for individual conditions or treatments. Talk to your doctor, nurse or pharmacist before following any medical regimen to see if it is safe and effective for you. documented in this encounter Progress Notes * Angelita Schilling APRN-CNP - 08/26/2018 2:59 PM CDT Subjective: Alannah Ruano is a 38 year old female who presents for evaluation: Chief Complaint Patient presents with ??? Cough sinus pressure Primary Care Physician is DELMER Basurto. Symptoms include Sinus drainage, mild left ear pain, cough, not sleeping well due to cough, and pt also having a low grade fever - never over 100F. Pt states she has been using her albuterol inhaler more often and is currently out of solution for her nebulizer Onset of symptoms was 1 week ago, gradually worsening since that time. She is drinking moderate amounts of fluids. Evaluation to date: none. Treatment to date: coricidin, and otc tylenol sinus and congestion, states the coricidin was not working so she switched to the tylenol sinus No Known Allergies Outpatient Prescriptions Marked as Taking for the 08/26/18 encounter (Office Visit) with Provider, Joesph Delgadowood Medication Sig ??? albuterol-ipratropium (DUO-NEB) 0.5-2.5 (3) MG/3ML nebulizer solution Inhale 3 mL by mouth 4 times daily as needed for Shortness of Breath or Wheezing ??? amoxicillin-clavulanate (AUGMENTIN) 875-125 MG tablet Take 1 tablet by mouth 2 times daily withmorning and evening meal for 7 days ??? benzonatate (TESSALON) 200 MG capsule Take 1 capsule by mouth 3 times daily as needed for Cough ??? canagliflozin-metFORMIN (INVOKAMET) 150-1000 MG tablet Take 1 tablet by mouth 2 times daily with morning and evening meal ??? carBAMazepine XR 12hr (TEGRETOL XR) 100 MG tablet Take 100 mg by mouth 3 times daily ??? Cholecalciferol (VITAMIN D3) 93730 UNITS TABS Take by mouth every 36 hours ??? clonazePAM (KLONOPIN) 0.5 MG tablet Take 0.5 mg by mouth 2 times daily ??? Exenatide (BYDUREON SC) Inject subcutaneously every 7 days ??? fenofibrate (LOFIBRA) 160 MG tablet Take 160 mg by mouth once daily Take with largest meal of the day. ??? Fexofenadine HCl (OCHOA PO) ??? Insulin Glargine (BASAGLAR KWIKPEN SC) ??? [...] 200 mg by mouth 2 times daily Past Medical History: Diagnosis Date ??? Anxiety [...] History Narrative Medications reviewed. Review of Systems Pertinent items are noted in HPI Constitutional: Positive for low grade fever, Eyes: Negative Ears, nose, mouth, and throat: Positive for nasal congestion, left ear pain, nasal drainage, post nasal drainage, sinus pressure and pain Respiratory: Positive for acute cough, asthma, wheezing Cardiovascular: Negative Gastrointestinal: Negative Hematologic/lymphatic: Negative Musculoskeletal:Negative Neurological: Negative Objective: BP 146/100 (BP SITE: LEFT ARM, BP POSITION: SITTING, BP CUFF SIZE: 11) Pulse 100 Temp 98.3 ??F (36.8 ??C) (Oral) Resp 20 Ht 1.626 m (5' 4 ) Wt 108.9 kg (240 lb) SpO2 96% BMI 41.2 kg/m2 Skin: Physical Exam Exam General appearance: alert, cooperative, no distress, oriented to person, place, and time, wellappearing Head: normocephalic, without trauma Eyes: sclera and conjunctiva clear, EOMI and PERRLA, lids normal Ears: canals clear, clear fluid noted behind tympanic membranes bilaterally, no erythema or bulging, hearing intact to voice Nose: nares open; no septal deviation is noted, mucosa erythematous and swollen, maxillary tenderness bilaterally Throat: no mucous membrane abnormalities, lips, mucosa, and tongue normal; teeth and gums normal Neck: range of motion is intact, Nodes: mild, benign-appearing anterior cervical adenopathy Lungs: breath sounds normal and symmetric; no rales or wheezes, non productive cough noted during exam Heart: regular rhythm, normal S1 and S2, without murmurs, gallops or rubs Neurologic: mental status normal; alert and oriented X 3 Recent Results (from the past 24 hour(s)) PULSE OXIMETRY - POINT OF CARE (AMB) Collection Time: 08/26/18 3:15 PM Result Value Ref Range Oximetry POCT 96 0 - 100 % QC Verified Yes Yes Assessment: . Encounter Diagnoses Name Primary? Acute maxillary sinusitis, recurrence not specified Yes ??? Asthma, unspecified asthma severity, unspecified whether complicated, unspecified whether persistent ??? Medication refill ??? Hypertension, unspecified type Plan: Discussed dx and tx of URIs Discussed the dx and tx of sinusitis. Discussed the importance of avoiding unnecessary abx therapy. Suggested symptomatic OTC remedies. Antibiotics per orders. RTC prn. If you begin to run a fever or if symptoms worsen, such as difficulty breathing or shortness of breath, seek medial attention as soon as possible. Honey can be used to help with cough. The honey (2.5 to 5 ml [0.5 to 1 teaspoon]) can be given straight or diluted in liquid (eg, tea, juice) Humidifier may be helpful especially at night You can take tylenol as needed for pain and discomfort as needed (per package directions). You can take Coricidin as needed (per package directions). Avoid other decongestants due to the risk of increasing your blood pressure. Monitor blood pressure at least 2-3 times per week during illness, call your Primary physician or go to the ER if blood pressure is greater than 160/90. Stop the otc medication with sudafed in it. If symptoms persist or worsen at any time, follow up with your primary health care provider, clinicor emergency care Orders Placed This Encounter ??? PULSE OXIMETRY - POINT OF CARE (AMB) ??? benzonatate (TESSALON) 200 MG capsule Sig: Take 1 capsule by mouth 3 times daily as needed for Cough Dispense: 30 capsule Refill: 0 ??? amoxicillin-clavulanate (AUGMENTIN) 875-125 MG tablet Sig: Take 1 tablet by mouth 2 times daily with morning and evening meal for 7 days Dispense: 14 tablet Refill: 0 ??? albuterol-ipratropium (DUO-NEB) 0.5-2.5 (3) MG/3ML nebulizer solution Sig: Inhale 3 mL by mouth 4 times daily as needed for Shortness of Breath or Wheezing Dispense: 1 Box Refill: 0 Continue to follow up with DELMER Basurto as directed. After Visit Summary reviewed with patient. The patient indicates understanding of these issues and agrees with the plan. Patient discharged to Home .HERNANDEZ Ken 08/26/2018 3:15 PM documented in this encounter Plan of Treatment Not on file documented as of this encounter Procedures Procedure Name Priority Date/Time Associated Diagnosis Comments PULSE OXIMETRY - POINT OF CARE (AMB) Routine 08/26/2018 3:15 PM CDT Asthma, unspecified asthma severity, unspecified whether complicated, unspecified whether persistent (HCC) documented in this encounter Results * PULSE OXIMETRY - POINT OF CARE (AMB) (08/26/2018 3:15 PM CDT) Oximetry POCT 96 0 - 100 % QC Verified Yes Yes Blood BLOOD SPECIMEN / Unknown 08/26/2018 3:15 PM CDT Angelita NG LAB - POINT OF CA RE ORDERABLES documented in this encounter Visit Diagnoses Diagnosis Acute maxillary sinusitis, recurrence not specified- Primary Asthma, unspecified asthma severity, unspecified whether complicated, unspecified whether persistent (HCC) Medication refill Issue of repeat prescriptions Hypertension, unspecified type documented in this encounter Care Teams Thread Cutter Relationship Specialty Start Date End Date Deedee Huerta PA [address] [place] [address] PCP - General Physician Horse Breaker 02/08/18 documented as of this encounter
--- OUTSIDE RECORDS SUMMARY | 2024-02-24 16:57 | XMS_ITS | Encounter Summary ---
Author Organization [facility] Address [address] [place] [address] Care Team Providers Care Material Attendant Name Role Phone Deedee Huerta Primary Care Pr ovider Reason for Visit * Reason Onset Date Comments Follow-up 08/28/2018 Encounter Details Date Type Department Care Team ([facility] Contact Info) Description 08/28/2018 Telephone [facility] [address] [phone] Provider, [facility] Follow-up Social History Tobacco Use [...] on filedocumented in this encounter Care Teams Material Attendant Relationship Specialty Start Date End Date Deedee Huerta PA [address] [place] [address] PCP - General Physician Mineralogy Teacher 02/08/18 documented as of this encounter
--- OUTSIDE RECORDS SUMMARY | 2024-02-24 16:57 | XMS_ITS | Encounter Summary ---
Author Organization [facility] Address [address] [place] [address]. [place], [place] [address] [place] [address] Care Team Providers Care Manager Hospitality Name Role Phone Deedee Low Primary Care Provider [phone] Encounter Details Date Type Department Care Team (Latest Contact Info) Description 10/23/2023 Travel Social History Tobacco Use Types Packs/Day [...] st Contact Info) Description 04/15/2024 1:00 PM VARNISH MELTER Office Visit [facility] Multispecialty Care - [facility] [address] [facility], [address] [place] [address] Presley Hernandez MD 3 [place] [address] 04/30/2024 10:40 AM VARNISH MELTER Office Visit [facility] Multispecialty Care - [facility] [address] [facility], [address] [place] [address] Presley Hernandez MD [address] [place] [address] documented as of this encounter Visit Diagnoses Not on filedocumented in this encounter Care Teams Manager Hospitality Relationship Specialty Start Date End Date Deedee Low PA [address] [facility] [address] [place] [address] PCP - General PHYSICIAN AMF MECHANIC 07/22/20 documented as of this encounter
--- OUTSIDE RECORDS SUMMARY | 2024-02-24 16:57 | XMS_ITS | Encounter Summary ---
Author Organization [facility] Address [address] [place] [address] Care Team Providers Care Sweeper Driver Name Role Phone Deedee Huerta Primary Care Pr ovider Reason for Visit * Reason Onset Date Comments Follow-up 08/28/2018 Encounter Details Date Type Department Care Team ([facility] Contact Info) Description 08/28/2018 Telephone [facility] [employer] [facility] [address] [phone] Provider, [facility] Follow-up Social History Tobacco Use Types Packs/Day [...] on filedocumented in this encounter Care Teams Sweeper Driver Relationship Specialty Start Date End Date Deedee Huerta PA [address] [place] [address] PCP - General Physician Licensed Bondsman 02/08/18 documented as of this encounter
--- OUTSIDE RECORDS SUMMARY | 2024-02-24 16:58 | XMS_ITS | Encounter Summary ---
Author Organization [facility] - [facility] Address [address] [place] [address]. [place] [address] [place] [address] Care Team Providers Care Cuff Runner Name Role Phone Jennifermary Deedee DOWELL Primary Care Provider [phone] Reason for Visit * Reason Onset Date Comments Prior Authorization 04/17/2023 Nurtec[address] Maldonado Encounter Details Date Type Department Care Team (Late st Contact Info) Description 04/17/2023 Telephone [facility] Medical Group Multispecialty Care - [facility] [address] [facility], [address] [place] [phone] Presley Hernandez MD 3 [place], [place] [id number] Prior Authorization (Shanelle/Dr. Maldonado) Social History Tobacco Use Types Packs/Day Years [...] as of this encounter Progress Notes * Tania Ha MA - 04/18/2023 10:11 AM CST Approval received for 8 tablets a month. Denied for 16 tablets a month. Spoke with pharmacy about filling 8 tablets and they stated that it went through for the 8 tablets. Patient advised that the pharmacy is filling for 8 to be taken for acute treatment of her migraines. RAM MANAGEMENT MANAGER * Tania Ha MA - 04/17/2023 4:42 PM CST Prior authorization started on CoverMyMeds for Nurtec. Kaur [id number] RAM MANAGEMENT MANAGER documented in this encounter Plan of Treatment Upcoming Encounters Date Type Department Care Team (Late st Contact Info) Description 04/15/2024 1:00 PM PROGRAM MANAGEMENT MANAGER Office Visit [facility] - [address], [address] [place] [phone] Presley Hernandez MD [address] [place] [id number] 04/30/2024 10:40 AM PROGRAM MANAGEMENT MANAGER Office Visit [facility] - [facility] [address] [facility], [address] [place] [phone] Presley Hernandez MD [address] [place] [phone] documented as of this encounter Visit Diagnoses Not on filedocumented in this encounter Care Teams Cuff Runner Relationship Specialty Start Date End Date Deedee Low PA [address] [facility] [address] [place] [address] PCP - General PHYSICIAN SENIOR QUALITY ENGINEER 07/22/20 documented as of this encounter
--- OUTSIDE RECORDS SUMMARY | 2024-02-24 16:58 | XMS_ITS | Encounter Summary ---
Author Organization [facility] Address [address] [place] [address]. [place], [place] [id number] [place] [address] Care Team Providers Care Computer Installation Engineer Name Role Phone Deedee Low Primary Care Provider [phone] Reason for Visit * Reason Comments Botox * Treatment/Therapy Plan Authorization (Routine) - Closed Specialty Diagnoses / Procedures Referred By Angelita silva Referred To Contact Diagnoses Chronic migraine without aura Spasmodic torticollis Procedures BOTULINUM TOXIN A PER UNIT Presley Hernandez MD [address] [place] [address] Phone: tel: fax: [facility] - [address], [address] [place] [address] Phone: tel: Referral ID Status Reason Start Date Expiration Date Visits Re quested Visits Authorized [id number] Closed 01/08/2022 01/07/2023 4 4 Encounter Details Date Type Department Care Team (Late st Contact Info) Description 10/10/2022 1:40 PM CDT Office Visit [address], [address] [place] [address] Presley Hernandez MD 3 [place] [address] Botox Social History Tobacco Use Types Packs/Day Years Used Date Smoking Tobacco: Former Cigarettes Smokeless Tobacco: Former Alcohol Use Standard Drinks/Week Comments Yes 0 [...] Sign Reading Time Taken Comments Blood Pressure 157/92 10/10/2022 2:21 PM CDT Pulse 95 10/10/2022 1:51 PM CDT Temperature 36.9 ??C (98.4 ??F) 10/10/2022 1:51 PM C DT Respiratory Rate - - Oxygen Saturation 98% 10/10/2022 1:51 PM CDT Inhaled Oxygen Concentration - - Weight 99.2 kg (218 lb 9.6 oz) 10/10/2022 1:51 P M CDT Height 162.6 cm (5' 4 ) 10/10/2022 1:51 PM CDT Body Mass Index 37.52 10/10/2022 1:51 PM CDT documented in this encounter Progress Notes * Michelle Meyer RN - 10/10/2022 1:40 PM CDTAddended by: MICHELLE MEYER on: 10/11/2022 07:35 AM Modules accepted: Orders * Presley Hernandez MD - 10/10/2022 1:40 PM CDTAddended by: PRESLEY HERNANDEZ on: 10/11/2022 10:38 AM Modules accepted: Orders * Presley Hernandez MD - 10/10/2022 1:40 PM CDT Botox treatment cycle number: 5 Botox side effect: None Medication effect lasted [...] 155 units at 31 different sites. A. Cost Estimator : 10 Units divided in 2 sites [...] st Contact Info) Description 04/15/2024 1:00 PM TRANSMISSION SUPERINTENDENT Office Visit [facility] Medical Group Multispecialty Care - [facility] [address] [facility], [address] [place] [address] Presley Hernandez MD 3 [place] [address] 04/30/2024 10:40 AM TRANSMISSION SUPERINTENDENT Office Visit [facility] Medical Group Multispecialty Care - [facility] [address] [facility], [address] [place] [address] Presley Hernandez MD 3 [place] [address] Scheduled Orders Name Type Priority Associated Diagnoses Orde r Schedule NECK MUSCLE EXCLUDING MUSCLES OF THE LARYNX UNILATERAL Procedures Routine Cervical dystonia Ordered: 10/11/2022 documented as of this encounter Visit Diagnoses Diagnosis Cervical dystonia- Primary Spasmodic torticollis Spasmodic torticollis Trigeminal neuralgia Chronic migraine without aura Chronic migraine without aura, without mention of intractable migraine without mention of status migrainosus documented in this encounter Administered Medications Inactive Administered Medications - up to 3 most recent administrations Medication Order MAR Action Action Date Dose Rate Site onabotulinumtoxinA (BOTOX) injection 210 Units 210 Units, Intramuscular, Once, 1 dose, On Mariaelena 10/11/22 at 0800Indications:Spasmodic torticollis,Trigeminal neuralgia,Chronic migraine without aura Given 10/10/2022 1:40 PM CDT 210 Units Other documented in this encounter Care Teams Computer Installation Engineer Relationship Specialty Start Date End Date Deedee Low PA [address] [place] [address] PCP - General PHYSICIAN STORE WORKER 07/22/20 documented as of this encounter
--- OUTSIDE RECORDS SUMMARY | 2024-02-24 16:58 | XMS_ITS | Encounter Summary ---
Author Organization [facility] Address [address] [place] [address]. [place], [place] [address] [place] [address] Care Team Providers Care Frame Welder Cargo Utility Trailers Name Role Phone Deedee Low Primary Care Provider [phone] Reason for Referral * Imaging (Urgent) - Closed Specialty Diagnoses / Procedures Referred By Angeilta silva Referred To Contact RADIOLOGY Diagnoses TIA (transient ischemic attack) Procedures MRI BRAIN WWO CON Presley Hernandez MD 3 [place] [address] Phone: tel: fax: Referral ID Status Reason Start Date Expiration Date Visits Re quested Visits Authorized [id number] Closed 03/12/2023 03/12/2024 1 1 DRIER OPERATOR * Imaging (Urgent) - Closed Specialty Diagnoses / Procedures Referred By Angelita silva Referred To Contact RADIOLOGY Diagnoses TIA (transient ischemic attack) Procedures MRA NECK WWO CON Presley Hernandez MD 3 [place] [address] Phone: tel: fax: Referral ID Status Reason Start Date Expiration Date Visits Re quested Visits Authorized [id number] Closed 03/12/2023 03/12/2024 1 1 DRIER OPERATOR * Imaging (Urgent) - Closed Specialty Diagnoses / Procedures Referred By Angelita silva Referred To Contact RADIOLOGY Diagnoses TIA (transient ischemic attack) Procedures MRA HEAD [facility] Presley Lea MD 3 [place] [address] Phone: tel: fax: Referral ID Status Reason Start Date Expiration Date Visits Re quested Visits Authorized [id number] Closed 03/12/2023 04/11/2024 1 1 DRIER OPERATOR Reason for Visit * Imaging (Urgent) - Closed Specialty Diagnoses / Procedures Referred By Angelita silva Referred To Contact RADIOLOGY Diagnoses TIA (transient ischemic attack) Procedures MRA HEAD [facility] CON Presley Hernandez MD 3 [place] [address] Phone: tel: fax: Referral ID Status Reason Start Date Expiration Date Visits Re quested Visits Authorized [id number] Closed 03/12/2023 04/11/2024 1 1 Encounter Details Date Type Department Care Team (Latest Contact Info) Description 03/19/2023 5:58 PM TRAY DRIER OPERATOR - 03/19/2023 11:59 PM TRAY DRIER OPERATOR Hospital Encounter [facility] [place] [address] Presley Hernandez MD 3 [place], [place] [address] Discharge Disposition: Home or Self Care (Routine Discharge) Social History Tobacco Use Types Packs/Day Years [...] on file documented as of this encounter Medications at Time of Discharge albuterol sulfate HFA 108 (90 Base) MCG/ACT inhaler Inhale 2 puffs into the lungs every 6 (six) hours as needed for Wheezing. atorvastatin (LIPITOR) 40 MG tablet atorvastatin 40 mg tablet TAKE 1 TABLET BY MOUTH ONCE DAILY WITH DINNER bevacizumab (AVASTIN) 0.625 mg/0.025 ml ophthalmic injection (NICU) 0.025 mLs (0.625 mg total) by Intravitreal route once. buPROPion (WELLBUTRIN) 100 MG tablet Take 1 tablet (100 mg total) by mouth 2 (two) times daily. carBAMazepine (TEGRETOL) 200 MG tabletIndications:M S (multiple sclerosis) ([facility]),Migraine without aura, not intractable, without status migrainosus TAKE 1/2 (ONE-HALF) TABLET BY MOUTH THREE TIMES DAILY 135 tablet 3 cetirizine 10 MG tablet Take 1 tablet (10 mg total) by mouth daily. Continuous Blood Gluc Sensor (DEXCOM G6 SENSOR[place] [facility] [place] Blood Gluc Transmit (DEXCOM G6 TRANSMITTER[place] [facility] [place] diazePAM 5 MG tablet Take 1 tablet (5 mg total) by mouth every 8 (eight) hours as needed for Anxiety. diphenhydrAMINE 25 MG capsule Take 1 capsule (25 mg total) by mouth every 6 (six) hours as needed for Itching. doxycycline hyclate 100 MG tablet Take 1 tablet (100 mg total) by mouth daily. on an empty stomach EPINEPHrine (EPIPEN) 0.3 MG/0.3ML injection Auvi-Q 0.3 mg/0.3 mL injection, auto-injector ADMINISTER 0.3 MG IN THE MUSCLE 1 TIME eszopiclone (LUNESTA) 1 MG tablet Take 1 tablet (1 mg total) by mouth nightly at bedtime. at bedtime. fenofibrate 160 MG tablet Take 1 tablet (160 mg total) by mouth daily. fluticasone propionate (FLONASE) 50 MCG/ACT nasal spray fluticasone propionate 50 mcg/actuation nasal spray,suspension inhale 2 sprays each nostril daily fluticasone-salmete rol (ADVAIR DISKUS) 250-50 MCG/ACT inhaler 2 (two) times daily. Glucagon (BAQSIMI ONE PACK) 3 MG/DOSE Powder Baqsimi 3 mg/actuation nasal spray USE 1 SPRAY INTO ONE NOSTRIL ONCE DIRECTED FOR LOW BLOOD SUGAR 2 insulin aspart 100 UNIT/ML injection (PEN) Inject into the skin 3 (three) times daily before meals. insulin aspart 100 UNIT/ML injection (VIAL) Inject into the skin 3 (three) times daily before meals. Insulin Disposable Pump (OMNIPOD DASH PODS, GEN 4,) Misc Omnipod Dash Pods (Gen 4) lamoTRIgine 100 MG tablet Take 1 tablet (100 mg total) by mouth 2 (two) times daily. losartan (COZAAR) 50 MG tablet Take 1 tablet (50 mg total) by mouth daily. montelukast 10 MG tablet Take 1 tablet (10 mg total) by mouth nightly at bedtime. pantoprazole EC (PROTONIX) 40 MG tablet Take 1 tablet (40 mg total) by mouth 2 (two) times daily. rimegepant (NURTEC) 75 MG disintegrating tabletIndications:M igraine without aura, not intractable, without status migrainosus Take 1 tablet (75 mg total) by mouth as needed. Max of 1 tablet (75 mg) in 24 hours. 16 tablet 11 3 SOOLANTRA 1 % Cream APPLY A PEA SIZED AMOUNT TO RED AREAS ON THE FACE EVERY NIGHT AT BEDTIME 3 topiramate (TOPAMAX) 200 MG tabletIndications:M S (multiple sclerosis) ([facility]/H[facility]),Migraine without aura, not intractable, without status migrainosus Take 1 tablet (200 mg total) by mouth 2 (two) times daily. 60 tablet 6 2 traZODone (DESYREL) 50 MG tablet TAKE 1 TO 2 TABLETS BY MOUTH ONCE DAILY AT NIGHT triamcinolone (KENALOG) 0.1 % ointment triamcinolone acetonide 0.1 % topical ointment ubrogepant (UBRELVY) 100 MG tabletIndications:M igraine without aura, not intractable, without status migrainosus Take 1 tablet (100 mg total) by mouth 2 (two) times daily as needed. Max of 2 tablets (200 mg) in 24 hours 16 tablet 11 4 vitamin D2, ergocalciferol, (DRISDOL) 1.25 mg capsule TAKE 1 CAPSULE BY MOUTH ONCE A WEEK DIRECTED FARXIGA 10 MG Tab 2 08/22/19 24 ondansetron (ZOFRAN ODT) 4 MG disintegrating tabletIndications:N ausea Take 1 tablet (4 mg total) by mouth every 8 (eight) hours as needed for Nausea. 20 tablet 2 09/09/19 24 propranolol (INDERAL) 20 MG tabletIndications:M S (multiple sclerosis) ([facility] HHS/HCC),Migraine without aura, not intractable, without status migrainosus Take 1 tablet by mouth twice daily 120 tablet 3 05/10/19 24 rimegepant (NURTEC) 75 MG disintegrating tabletIndications:M igraine without aura, not intractable, without status migrainosus Take 1 tablet (75 mg total) by mouth daily as needed for Migraine. 16 tablet 5 2 07/24/19 24 rimegepant (NURTEC) 75 MG disintegrating tabletIndications:M igraine without aura, not intractable, without status migrainosus Take 1 tablet (75 mg total) by mouth as needed for Migraine. 16 tablet 3 07/24/19 24 rimegepant (NURTEC) 75 MG disintegrating tabletIndications:M igraine without aura, not intractable, without status migrainosus Take 1 tablet (75 mg total) by mouth as needed. Max of 1 tablet (75 mg) in 24 hours. 16 tablet 11 3 07/24/19 24 rizatriptan (MAXALT) 10 MG tabletIndications:M S (multiple sclerosis) ([facility] HHS/HCC),Migraine without aura, not intractable, without status migrainosus Take 1 tablet (10 mg total) by mouth as needed for Migraine. May repeat in 2 hours if needed 16 tablet 5 2 07/24/19 24 documented as of this encounter Plan of Treatment Upcoming Encounters Date Type Department Care Team (Rodney st Contact Info) Description 04/15/2024 1:00 PM TRAY DRIER OPERATOR [facility] [address] [facility], [address] [place] [phone] Presley Hernandez MD 3 [place] [address] 04/30/2024 10:40 AM TRAY DRIER OPERATOR [facility] [address] [facility], [address] [place] [address] Presley Hernandez MD 3 [place] [address] documented as of this encounter Procedures Procedure Name Priority Date/Time Associated Diagnosis Comments MRI BRAIN WWO CON [facility] 03/19/2023 7:1 7 PM TRAY DRIER OPERATOR TIA (transient ischemic attack) MRA NECK WWO CON [facility] 03/19/2023 7:10 PM TRAY DRIER OPERATOR TIA (transient ischemic attack) MRA HEAD WWO CON [facility] 03/19/2023 7:08 PM TRAY DRIER OPERATOR TIA (transient ischemic attack) documented in this encounter Results * MRI BRAIN WWO CON (03/19/2023 7:17 PM TRAY DRIER OPERATOR) Anatomical Region Laterality Modality Head Magnetic Resonan ce 03/20/2023 7:00 AM TRAY DRIER OPERATOR Impressions 03/20/2023 7:04 AM TRAY DRIER OPERATOR IMPRESSION: Unremarkable contrast enhanced brain MRI. ??No focal signal abnormality, abnormal enhancement or interval change. Referred By: PRESLEY HERNANDEZ Interpreted By: Jose Garay MD, 03/20/2023 7:00 AM Narrative 03/20/2023 7:04 AM TRAY DRIER OPERATOR EXAMINATION:Brain MRI with and without contrast 03/19/2023 INDICATION:Facial numbness, TIA TECHNIQUE: Imaging of the head was performed prior to and following the administration of 20 mL of Dotarem contrast intravenously. COMPARISON: Head CT 11/27/2021, brain MRI 09/04/2021 FINDINGS:No restricted diffusion. ??No acute hemorrhage, mass effect, midline shift or extra-axial fluid collection. ??No ventriculomegaly. Flow-voids are noted within the intracranial internal carotid, vertebral and basilar arteries.. ??The cerebellopontine angles and internal auditory canals are unremarkable The pituitary gland midline structures are unremarkable. ??Bone marrow signal is within normal limits. ??The orbits and globes are unremarkable. ??Expected signal voids are seen within the paranasal sinuses and mastoid air cells. ??Small mucous retention cyst is noted within the inferior right maxillary sinus, unchanged Procedure Note Jose Garay MD - 03/20/2023 EXAMINATION:Brain MRI with and without contrast 03/19/2023 INDICATION:Facial numbness, TIA TECHNIQUE: Imaging of the head was performed prior to and following theadministration of 20 mL of Dotarem contrast intravenously. COMPARISON: Head CT 11/27/2021, brain MRI 09/04/2021 FINDINGS:No restricted diffusion. No acute hemorrhage, mass effect,midline shift or extra-axial fluid collection. No ventriculomegaly. Flow-voids are noted within the intracranial internal carotid, vertebraland basilar arteries.. The cerebellopontine angles and internal auditorycanals are unremarkable The pituitary gland midline structures are unremarkable. Bone marrowsignal is within normal limits. The orbits and globes are unremarkable.Expected signal voids are seen within the paranasal sinuses and mastoidair cells. Small mucous retention cyst is noted within the inferior rightmaxillary sinus, unchanged IMPRESSION: Unremarkable contrast enhanced brain MRI. No focal signalabnormality, abnormal enhancement or interval change. Referred By: PRESLEY HERNANDEZ Interpreted By: Jose Garay MD, 03/20/2023 7:00 AM us Presley Hernandez MD MRI Final Res ult * MRA NECK WWO CON (03/19/2023 7:10 PM TRAY DRIER OPERATOR) Anatomical Region Laterality Modality Neck Magnetic Resonan ce 03/20/2023 7:04 AM TRAY DRIER OPERATOR Impressions 03/20/2023 7:07 AM TRAY DRIER OPERATOR IMPRESSION: No measurable carotid or vertebral artery stenosis. ??No evidence of aneurysm or dissection within the neck. Referred By: PRESLEY HERNANDEZ Interpreted By: Jose Garay MD, 03/20/2023 7:04 AM Narrative 03/20/2023 7:07 AM TRAY DRIER OPERATOR EXAMINATION:Neck MRA with and without contrast 03/19/2023 INDICATION:Facial numbness TECHNIQUE: Noncontrast 3-D [id number] and postcontrast coronal 3-D images of the neck were constructed. COMPARISON: None FINDINGS:The aortic arch is grossly unremarkable.. ??Is common origin the innominate and left common carotid artery. ??The visualized proximal subclavian arteries are unremarkable. ??The common carotid and cervical internal carotid arteries are unremarkable The vertebral arteries are codominant and unremarkable No measurable carotid or vertebral artery stenosis. ??No evidence of aneurysm or dissection within the neck. Procedure Note Jose Garay MD - 03/20/2023 EXAMINATION:Neck MRA with and without contrast 03/19/2023 INDICATION:Facial numbness TECHNIQUE: Noncontrast 3-D [id number] and postcontrast coronal 3-Dimages of the neck were constructed. COMPARISON: None FINDINGS:The aortic arch is grossly unremarkable.. Is common origin theinnominate and left common carotid artery. The visualized proximalsubclavian arteries are unremarkable. The common carotid and cervicalinternal carotid arteries are unremarkable The vertebral arteries are codominant and unremarkable No measurable carotid or vertebral artery stenosis. No evidence ofaneurysm or dissection within the neck. IMPRESSION: No measurable carotid or vertebral artery stenosis. Noevidence of aneurysm or dissection within the neck. Referred By: PRESLEY HERNANDEZ Interpreted By: Jose Garay MD, 03/20/2023 7:04 AM us Presley Hernandez MD MRI Final Res ult * MRA HEAD WWO CON (03/19/2023 7:08 PM TRAY DRIER OPERATOR) Anatomical Region Laterality Modality Head Magnetic Resonan ce 03/20/2023 7:07 AM TRAY DRIER OPERATOR Impressions 03/20/2023 7:18 AM TRAY DRIER OPERATOR IMPRESSION: No focal intracranial stenosis, large vessel occlusion or aneurysm. Referred By: PRESLEY HERNANDEZ Interpreted By: Jose Garay MD, 03/20/2023 7:07 AM Narrative 03/20/2023 7:18 AM TRAY DRIER OPERATOR EXAMINATION:Brain MRI with and without contrast 03/19/2023 INDICATION:Facial numbness, TIA TECHNIQUE: Noncontrast 3-D cyyc-gz-[id number] and contrast-enhanced MRA images of the head were acquired in 3-D maximum intensity reduction images were constructed. COMPARISON: None FINDINGS:Flow signal is noted within the intracranial internal carotid, vertebral basilar is. ??Flow signal is noted within the anterior, middle and posterior cerebral arteries. There is a origin of the left posterior cerebral artery. ??No focal intracranial stenosis, large vessel occlusion or aneurysm. Procedure Note Jose Garay MD - 03/20/2023 EXAMINATION:Brain MRI with and without contrast 03/19/2023 INDICATION:Facial numbness, TIA TECHNIQUE: Noncontrast 3-D [id number]-gy-[id number] and contrast-enhanced MRA imagesof the head were acquired in 3-D maximum intensity reduction images wereconstructed. COMPARISON: None FINDINGS:Flow signal is noted within the intracranial internal carotid,vertebral basilar is. Flow signal is noted within the anterior, middleand posterior cerebral arteries. There is a origin of the left posterior cerebral artery. No focalintracranial stenosis, large vessel occlusion or aneurysm. IMPRESSION: No focal intracranial stenosis, large vessel occlusion oraneurysm. Referred By: PRESLEY HERNANDEZ Interpreted By: Jose Garay MD, 03/20/2023 7:07 AM Presley Hernandez MD MRI Final Res ult documented in this encounter Visit Diagnoses Diagnosis TIA (transient ischemic attack) Unspecified transient cerebral ischemia documented in this encounter Administered Medications Inactive Administered Medications - up to 3 most recent administrations Medication Order MAR Action Action Date Dose Rate Site gadoterate meglumine (DOTAREM) 10 MMOL/20ML injection 20 mL 20 mL, Intravenous, IMG once as needed, Contrast, 1 dose, Starting on Sat03/19/23 at 1909, Until Sat03/19/23 at 1909 Given 03/19/2023 7:09 PM TRAY DRIER OPERATOR 20 mLs Right Arm documented in this encounter Care Teams Frame Welder Cargo Utility Trailers Relationship Specialty Start Date End Date Deedee Low PA [address] [place] [address] PCP - General PHYSICIAN BAKER PAINT 07/22/20 documented as of this encounter
--- OUTSIDE RECORDS SUMMARY | 2024-02-24 16:58 | XMS_ITS | Encounter Summary ---
Author Organization [facility] Address [address] [place] [address]. [place], [place] [address] [place] [address] Care Team Providers Care Building Carpenter Helper Name Role Phone Jennifermary Deedee DOWELL Primary Care Provider [phone] Encounter Details Date Type Department Care Team (Latest Contact Info) Description 10/10/2022 Travel Social History Tobacco Use Types Packs/Day [...] st Contact Info) Description 04/15/2024 1:00 PM HEEL WASHER STRINGING MACHINE OPERATOR Office Visit [facility] - [address], [address] [place] [phone] Presley Hernandez MD [address] [place] [address] 04/30/2024 10:40 AM HEEL WASHER STRINGING MACHINE OPERATOR [facility] [address] [place] [address] Presley Hernandez MD 3 [place] [address] documented as of this encounter Visit Diagnoses Not on filedocumented in this encounter Care Teams Building Carpenter Helper Relationship Specialty Start Date End Date Deedee Low PA [address] [facility] [address] [place] [address] PCP - General PHYSICIAN NEWSPAPER DELIVERY DRIVER 07/22/20 documented as of this encounter
--- OUTSIDE RECORDS SUMMARY | 2024-02-24 16:58 | XMS_ITS | Encounter Summary ---
Author Organization [facility] Address [address] [place] [address]. [place], [place] [address] [place] [address] Care Team Providers Care House Furnishings Supervisor Name Role Phone Deedee Low Primary Care Provider [phone] Encounter Details Date Type Department Care Team (Latest Contact Info) Description 03/11/2023 Travel Social History Tobacco Use Types Packs/Day [...] st Contact Info) Description 04/15/2024 1:00 PM EMBEDDED SOFTWARE DEVELOPMENT ENGINEER Office Visit [facility] Multispecialty Care - [facility] [address] [facility], [address] [place] [phone] Presley Hernandez MD [address] [place] [address] 04/30/2024 10:40 AM EMBEDDED SOFTWARE DEVELOPMENT ENGINEER Office Visit [facility] Multispecialty Care - [facility] [address] [facility], [address] [place] [address] Presley Hernandez MD 3 [place] [address] documented as of this encounter Visit Diagnoses Not on filedocumented in this encounter Care Teams House Furnishings Supervisor Relationship Specialty Start Date End Date Deedee Low PA [address] [facility] [address] [place] [address] PCP - General PHYSICIAN COATER SLATE 07/22/20 documented as of this encounter
--- OUTSIDE RECORDS SUMMARY | 2024-02-24 16:58 | XMS_ITS | Encounter Summary ---
Author Organization [facility] Address [address] [place] [address]. [place], [place] [address] [place] [address] Care Team Providers Care Telecommunication Lines Repairer Name Role Phone Deedee Low Primary Care Provider [phone] Reason for Referral * Surgical (Routine) - Closed Specialty Diagnoses / Procedures Referred By Angelita silva Referred To Contact Diagnoses Cervical radiculopathy Procedures Case request operating room: INJECTION EPIDURAL STEROID CERVICAL C5-6 Tania Yang APNP Phone: tel: fax: Referral ID Status Reason Start Date Expiration Date Visits Re quested Visits Authorized [id number] Closed 08/07/2022 08/08/2023 1 1 Encounter Details Date Type Department Care Team (Late st Contact Info) Description 08/07/2022 Prep for Procedure [facility] [place] [address] [id number] Tania Yang APNP [address] [place] [phone] Social History Tobacco Use Types Packs/Day Years Used Date Smoking Tobacco: Former Cigarettes Smokeless Tobacco: Former Alcohol Use Standard Drinks/Week Comments Yes 0 (1 standard drink = 0.6 oz pur e alcohol) occasionally PHQ-2 Answer Date Recorded Patient Health Questionnaire-2 Score 0 07/11/2022 Comments No Sex and Gender Information Value Date Recorded Sex Assigned at Not on file Legal Sex Female 2:06 PM CDT Gender Identity Not on file Sexual Orientation Not on file COVID-19 Exposure Response Date Recorded In the last 10 days, have yo u been in contact with someone who was confirmed or suspected to have Coronavirus/COVID-19? No / Unsure 08/07/2022 7:09 AM CDT documented as of this encounter Plan of Treatment Upcoming Encounters Date Type Department Care Team (Late st Contact Info) Description 04/15/2024 1:00 PM MERCHANDISE PROCESSOR Office Visit [facility] - [address], [address] [place] [phone] Presley Hernandez MD [address] [place] [address] 04/30/2024 10:40 AM MERCHANDISE PROCESSOR Office Visit [facility] - [address], [address] [place] [phone] Presley Hernandez MD [address] [place] [address] Scheduled Orders Name Type Priority Associated Diagnoses Orde r Schedule Case request operating room: INJECTION EPIDURAL STEROID CERVICAL C5-6 Case Request Routine Cervical radiculopathy Once for 1 Occurrences starting 08/07/2022 until 08/07/2022 documented as of this encounter Visit Diagnoses Diagnosis Cervical radiculopathy- Primary Brachial neuritis or radiculitis nos documented in this encounter Care Teams Telecommunication Lines Repairer Relationship Specialty Start Date End Date Deedee Low PA [address] [place] [address] PCP - General PHYSICIAN HELIX COIL WINDER 07/22/20 documented as of this encounter
--- OUTSIDE RECORDS SUMMARY | 2024-02-24 16:58 | XMS_ITS | Encounter Summary ---
Author Organization [facility] Address [address] [place] [address]. [place], [place] [address] [place] [address] Care Team Providers Care Hull Drafter Name Role Phone Jennifermary Deedee DELMER Primary Care Provider [phone] Encounter Details Date Type Department Care Team (Latest Contact Info) Description 03/28/2023 Scan HEALTH INFO SRVCS Scanned, Doc Med [...] st Contact Info) Description 04/15/2024 1:00 PM WAITER/WAITRESS CAPTAIN Office Visit [facility] Mult[facility]pecialty Care - [facility] [address] [facility], [address] [place] [phone] Presley Hernandez MD [address] [place] [address] 04/30/2024 10:40 AM WAITER/WAITRESS CAPTAIN Office Visit [facility] Multispecialty Care - [facility] [address] [facility], [address] [place] [address] Presley Hernandez MD [address] [place] [address] documented as of this encounter Visit Diagnoses Not on filedocumented in this encounter Care Teams Hull Drafter Relationship Specialty Start Date End Date Deedee Low PA [address] [place] [address] PCP - General PHYSICIAN REMEDIATION PROJECT ENGINEER 07/22/20 documented as of this encounter
--- OUTSIDE RECORDS SUMMARY | 2024-02-24 16:58 | XMS_ITS | Encounter Summary ---
Author Organization [facility] Address [address] [place] [address]. [place], [place] [phone] [place] [address] Care Team Providers Care Janitor Cleaner Name Role Phone Deedee Low Primary Care Provider [phone] Reason for Visit * Reason Comments Botox Botox cervical dysto isabel, neuralgia 100 units * Treatment/Therapy Plan Authorization (Routine) - Closed Specialty Diagnoses / Procedures Referred By Contchicho t Referred To Contact Diagnoses Chronic migraine without aura Spasmodic torticollis Procedures BOTULINUM TOXIN A PER UNIT Presley Hernandez MD [address] [place] [address] Phone: tel: fax: [facility] - [address], [address] [place] [address] Phone: tel: Referral ID Status Reason Start Date Expiration Date Visits Re quested Visits Authorized [id number] Closed 01/08/2022 01/07/2023 4 4 Encounter Details Date Type Department Care Team (Latest Contact Info) Description 10/17/2022 9:40 AM CDT Office Visit [address], [address] [place] [phone] Presley Hernandez MD [address] [place] [address] Botox (Botox cervical dystonia, neuralgia 100 units) Social History Tobacco Use Types Packs/Day Years Used Date Smoking Tobacco: Former Cigarettes Passive Smoke Exposure: Past Smokeless Tobacco: Former Tobacco Cessation:Counseling Given: Not Answered Comments:Pt states just tried in high school [...] Sign Reading Time Taken Comments Blood Pressure 155/90 10/17/2022 10:27 AM CDT Pulse 77 10/17/2022 9:48 AM CDT Temperature 36.4 ??C (97.6 ??F) 10/17/2022 9:48 AM CD T Respiratory Rate 17 10/17/2022 9:48 AM CDT Oxygen Saturation 100% 10/17/2022 9:48 AM CDT Inhaled Oxygen Concentration - - Weight 99.9 kg (220 lb 4.8 oz) 10/17/2022 9:48 A M CDT Height 162.6 cm (5' 4 ) 10/17/2022 9:48 AM CDT Body Mass Index 37.81 10/17/2022 9:48 AM CDT documented in this encounter Progress Notes * Meghan Meyer MA - 10/17/2022 9:40 AM CDTAddended by: MEGHAN MEYER on: 10/22/2022 08:41 AM Modules accepted: Orders * Presley Hernandez MD - 10/17/2022 9:40 AM CDT Botox treatment cycle number:5 Lot type:?Buy and bill Benefits: 80% in 2 months Side effects: none?? Wastage:??30 ?? Botox Injection Procedure Informed consent: signed by patient.? Confirmed: patient, procedure, safety procedures followed.? Preparation: no contraindications noted to Botox, sterile preparation of site in usual fashion.? Procedure tolerated: well.? Complications: none.? Indication : Cervical dystonia ?? The patient was explained about the benefits and the possible side effects associated with Botox injections. The patient vocalized understanding and agreed to proceed with the injections. ?This is a patient with cervical dystonia.?We did time out procedure and confirmed patient identity and procedure planned, including target of injection.?After informed consent was obtained, using aseptic technique and under EMG guidance the following muscles were injected with botulinumtoxin type A (BOTOX).? Under EMG Guidance We injected 15 units to left splenius capitis, 15 units to right splenius capitis, 15??units to right middle trapezius, 15??units to left middle trapezius ?? A total of??60??units of botulinum toxin type A (BOTOX) were injected.?The procedure was tolerated well without complication. will return to clinic in three months' time for repeat injections Botox treatment cycle number: 1 Lot type: macy and bill Wastage: 10 Botox Injection Procedure Informed consent: signed by [...] 2.5 units. Right mediolateral eyelid: 2.5 units Left lateral lower eyelid 2.5 units. Left mediolateral eyelid: 2.5 units A total of 10 units of botulinum toxin type A (BOTOX) were injected;. The procedure was tolerated well without complication. The patient will return to clinic in three months' time for repeat injections. documented in this encounter Plan of Treatment Upcoming Encounters Date Type Department Care Team (Late st Contact Info) Description 04/15/2024 1:00 PM COUNSELOR AIDE Office Visit [facility] - [address], [address] [place] [address] Presley Hernandez MD [address] [place] [address] 04/30/2024 10:40 AM COUNSELOR AIDE Office Visit [facility] - [facility] [address] [facility], [address] [place] [address] Presley Hernandez MD [address] [place] [address] Scheduled Orders Name Type Priority Associated Diagnoses Orde r Schedule NECK MUSCLE EXCLUDING MUSCLES OF THE LARYNX UNILATERAL Procedures Routine Cervical dystonia Ordered: 10/17/2022 NDL EMG GDN CONJUNCT CHEMODNRVTJ Procedures Routine Cervical dystonia Ordered: 10/17/2022 DEST,NERVE,FACIAL Procedures Routine Blepharospasm Ordered: 10/17/2022 documented as of this encounter Visit Diagnoses Diagnosis Cervical dystonia- Primary Spasmodic torticollis Blepharospasm Spasmodic torticollis Trigeminal neuralgia documented in this encounter Administered Medications Inactive Administered Medications - up to 3 most recent administrations Medication Order MAR Action Action Date Dose Rate Site onabotulinumtoxinA (BOTOX) injection 210 Units 210 Units, Intramuscular, Once, 1 dose, On Sat10/22/22 at 0900Indications:Spasmodic torticollis,Trigeminal neuralgia Given 10/17/2022 9:40 AM CDT 70 Units Other documented in this encounter Care Teams Janitor Cleaner Relationship Specialty Start Date End Date Deedee Low PA [address] [place] [address] PCP - General PHYSICIAN RETAIL PRICING COORDINATOR 07/22/20 documented as of this encounter
--- OUTSIDE RECORDS SUMMARY | 2024-02-24 16:58 | XMS_ITS | Encounter Summary ---
Author Organization [facility] Address [address] [place] [address]. [place], [place] [id number] [place] [id number] Care Team Providers Care Licensed Mortgage Loan Officer Name Role Phone Deedee Low Primary Care Provider [phone] Reason for Visit * Auth/Cert (Routine) Specialty Diagnoses / Procedures Referred By Angelita t Referred To Contact Diagnoses Cervical radiculopathy cervical radiculopathy Procedures NJX INTERLAMINAR CRV/THRC INJECTION EPIDURAL STEROID CERVICAL C5-6 Lidia Weston MD Three [facility] [address] [place] [address] Phone: tel: fax: Referral ID Status Reason Start Date Expiration Date Visits Re quested Visits Authorized [id number] 1 1 Encounter Details Date Type Department Care Team (Late st Contact Info) Description 10/05/2022 9:40 AM CDT - 10/05/2022 10:00 AM CDT Surgery [facility] [address] [place], [place] [id number] Lidia Weston MD Three [facility] [address] [place] [address] [id number] INJECTION EPIDURAL STEROID CERVICAL C5-6 Surgery Details Date/Time Status Location OR Service Patient Class Case Class Case Type Trauma Case? 10/05/2022 9:40 AM Posted [facility] Proc Rm Pain Medicine Short Stay/Outpa tient Surgery E - Elective No Panel 1 Procedure LRB Anes Op Region Wound Class Comments INJECTION EPIDURAL STEROID CERVICAL C5-6 N/A Local Clean JESICA - returning patient will take valium from home - requests Hydrocodone upon admission no blood thinners dr Erica Azar scheduled 08/07/22 [facility] Surgeon Surgeon Role Service Panel Lidia Weston MD Primary Pain Medicine 1 documented in this encounter Social History Tobacco Use Types Packs/Day Years [...] AM CDT documented as of this encounter Last Filed Vital Signs Vital Sign Reading Time Taken Comments Blood Pressure 146/91 10/05/2022 9:50 AM CDT Pulse 91 10/05/2022 9:50 AM CDT Temperature 36.7 ??C (98 ??F) 10/05/2022 9:20 AM CDT Respiratory Rate 20 10/05/2022 9:50 AM CDT Oxygen Saturation 100% 10/05/2022 9:50 AM CDT Inhaled Oxygen Concentration - - Weight 99 kg (218 lb 3.2 oz) 10/05/2022 9:20 AM CDT Height 162.6 cm (5' 4 ) 10/05/2022 9:20 AM CDT Body Mass Index 37.45 10/05/2022 9:20 AM CDT documented in this encounter Discharge Instructions * Discharge Instructions* Tyra Sterling RN - 10/05/2022 9:08 AM CDT FOLLOW UP NEEDED AND CALL US WHEN PAIN RETURNS AND PERSISTS [place] Interventional Pain Management Discharge Instructions WHAT TO DO TODAY: Limit your activity today, but bedrest is not required You may resume your normal activity tomorrow as tolerated Do not drive a vehicle or operate hazardous equipment for the first 24 hours after your procedure. You may experience numbness, tingling, and weakness in your extremities for several hours after your injection. Please be careful when walking or standing so you do not fall. You may remove your bandage in the morning and you may shower. WHAT TO EXPECT OVER THE NEXT FEW DAYS TO A WEEK: Any weakness or tingling typically wears off after several hours but you may have some tingling forseveral days after some injections It is normal that once the numbing medicine wears off that you could be sore for several days before you notice relief. Pain should get better day by day. The steroid will start working after 2-3 days and can take up to 2 weeks for it to fully work. Everyone has different response to the injection depending on the amount of inflammation and diagnosis. HOW TO CONTROL YOUR PAIN: Injection site soreness is normal and will subside in a few days. We suggest ice packs to the injection site for 10-20 at a time every 2-3 hours. After 24 hours you may use heat if preferred or you may alternate heat and ice. Your pain may be worse for a couple of days; you may use any medications that you were using beforeyour visit. You may also use Tylenol, Motrin or Aleve if not contraindicated by your Primary Care Physician. If you no longer have any prescribed medicine, please get your refill from the physician who fist prescribed it for you. For patients who had a Radiofrequency Ablation your pain could last for up to 2 weeks. We are an Interventional pain management. We do not prescribe pain medicine. COMMON SIDE EFFECTS OF STEROIDS: You may experience warm, flushing sensation with redness in your face, neck and chest. You may feel anxious, jittery, irritable or have trouble sleeping. You may have increased hunger or menstrual changes (for women). If you are a diabetic you may have increased blood sugars. If you do and are unable to control please call your doctor who manages your diabetes. All side effects are temporary and should subside in approximately a week. WHEN TO CALL THE DOCTOR AND HOW TO REACH US: Call [phone] ext. [phone] for scheduling, insurance questions or speak with a nurse. Our hours are Saturday- 8:00am-4:00pm Call the number above for any bleeding/drainage/redness/swelling at the injection site, severe pain, persistent chills, fever over 101 or greater, or new or different pain or numbness. If you are unable to reach us call 911 or go to the nearest emergency room. If you have shortness of breath, fast heart rate, throat/tongue swelling call 911 or go to the nearest emergency room. ANY NEW BOWEL OR BLADDER INCONTINENCE ISSUES OR NUMBNESS TO PELVIC REGION PLEASE GO TO THE EMERGENCY ROOM IMMEDIATELY! If you have the following insurances, please read CAREFULLY. Medicare, Medicare replacement plans, and/or Government plans [facility] Commercial plans Your insurance recommends we do ONE injection every THREE months depending on the amount of relief that you obtained from your injection. You should call our clinic in 2 months to schedule your next injection. Your insurance would like to measure your overall percentage of relief along with improvements in activity 3 months after your injection. Our office will need to document your progress at the 3 monthmarker. AFTER 14 DAYS, if you feel like the injection did not give you sufficient relief, please call our office to discuss with a nurse. If your pain RETURNS AND PERSISTS BEFORE the 2 month kavita, please call our office to discuss with anurse. PLEASE CALL WITH YOUR PERCENTAGE OF RELIEF IN {[facility] F/U:[id number]} Please call [phone] Ext. [phone] option 4. You may need to leave a message. Please leave the following information... 1. Name, date of , a number we can reach you for questions and the date you were here. 2. The amount of relief you received from your injection in percentage and how long it has lasted or if it is still currently helping you. 3. If you still have pain where is the pain? 4. Are you taking any medications for your pain? 5. Are you doing your physical therapy exercises/stretches or any physical activity? 6. Is there any activity that you are able to do that you were unable to do prior to your injection? Please know that if we do not receive this information your next injection may not get authorized by your insurance company and your treatment could be delayed. documented in this encounter Medications at Time of Discharge albuterol sulfate HFA 108 (90 Base) MCG/ACT inhaler Inhale 2 puffs into the lungs every 6 (six) hours as needed for Wheezing. atorvastatin (LIPITOR) 40 MG tablet atorvastatin 40 mg tablet TAKE 1 TABLET BY MOUTH ONCE DAILY WITH DINNER buPROPion (WELLBUTRIN) 100 MG tablet Take 1 tablet (100 mg total) by mouth 2 (two) times daily. cetirizine 10 MG tablet Take 1 tablet (10 mg total) by mouth daily. Continuous Blood Gluc Sensor (DEXCOM G6 SENSOR) [facility] 2 Continuous Blood Gluc Transmit (DEXCOM G6 TRANSMITTER) [facility] 2 diazePAM 5 MG tablet Take 1 [...] total) by mouth 2 (two) times daily. SOOLANTRA 1 % Cream APPLY A PEA SIZED AMOUNT TO RED AREAS ON THE FACE EVERY NIGHT AT BEDTIME 3 topiramate (TOPAMAX) 200 MG tabletIndications:M S (multiple sclerosis) ([facility]),Migraine without aura, not intractable, without status migrainosus Take 1 tablet (200 mg total) by mouth 2 (two) times daily. 60 tablet 6 2 traZODone (DESYREL) 50 MG tablet TAKE 1 TO 2 TABLETS BY MOUTH ONCE DAILY AT NIGHT triamcinolone (KENALOG) 0.1 % ointment triamcinolone acetonide 0.1 % topical ointment vitamin D2, ergocalciferol, (DRISDOL) 1.25 mg capsule TAKE 1 CAPSULE BY MOUTH ONCE A WEEK DIRECTED carBAMazepine 200 MG tabletIndications:M S (multiple sclerosis) ([facility]),Migraine without aura, not intractable, without status migrainosus Take 0.5 tablets (100 mg total) by mouth 3 (three) times daily. 90 tablet 6 2 12/28/19 23 FARXIGA 10 MG Tab 2 08/22/19 24 ketorolac (ACULAR) 0.5 % ophthalmic solution ketorolac 0.5 % eye drops INSTILL 1 DROP INTO EACH EYE 4 TIMES DAILY 01/24/20 23 ondansetron (ZOFRAN ODT) 4 MG disintegrating tabletIndications:N ausea Take 1 tablet (4 mg total) by mouth every 8 (eight) hours as needed for Nausea. 20 tablet 11 2 09/09/19 24 propranolol (INDERAL) 20 MG tabletIndications:M S (multiple sclerosis) ([facility]),Migraine without aura, not intractable, without status migrainosus Take 1 tablet by mouth twice daily 120 tablet 3 10/10/19 23 rimegepant (NURTEC) 75 MG disintegrating tabletIndications:M igraine [...] for Migraine. 16 tablet 3 07/24/19 24 rizatriptan (MAXALT) 10 MG tabletIndications:M S (multiple sclerosis) ([facility]),Migraine without aura, not intractable, without status migrainosus Take 1 tablet (10 mg total) by mouth as needed for Migraine. May repeat in 2 hours if needed 16 tablet 2 07/24/19 24 documented as of this encounter H&P Notes * Lidia Weston MD - 10/05/2022 9:04 AM CDT Admission Note With PreProc Assess CC: NECK PAIN HPI: 42-year-old female seen as a follow-up patient was last seen for reevaluation 07/11/2022 no new pain complaints Prior to Admission medications Medication Sig Start Date End Date Taking? Authorizing Provider albuterol sulfate HFA 108 (90 Base) MCG/ACT inhaler Inhale 2 puffs into the lungs every 6 (six) hours as needed for Wheezing. Doc [facility] Abstract atorvastatin (LIPITOR) 40 MG tablet atorvastatin 40 mg tablet TAKE 1 TABLET BY MOUTH ONCE DAILY WITH DINNER Default History Genericprovider buPROPion (WELLBUTRIN) 100 MG tablet Take 1 tablet (100 mg total) by mouth 2 (two) times daily. Default History Genericprovider carBAMazepine 200 MG tablet Take 0.5 tablets (100 mg total) by mouth 3 (three) times daily. 08/08/21Presley Hernandez MD cetirizine 10 MG tablet Take 1 tablet (10 mg total) by mouth daily. Doc [facility] Abstract Continuous Blood Gluc Sensor (DEXCOM G6 SENSOR) [facility] 09/28/21 Doc [facility] Abstract Continuous Blood Gluc Transmit (DEXCOM G6 TRANSMITTER) [facility] 09/27/21 Doc [facility] diazePAM 5 MG tablet Take 1 tablet (5 mg total) by mouth every 8 (eight) hours as needed for Anxiety. Doc [facility] diphenhydrAMINE 25 MG capsule Take 1 capsule (25 mg total) by mouth every 6 (six) hours as needed for Itching. Doc [facility] doxycycline hyclate 100 MG tablet Take 1 tablet (100 mg total) by mouth daily. on an empty stomach Doc [facility] EPINEPHrine (EPIPEN) 0.3 MG/0.3ML injection Auvi-Q 0.3 mg/0.3 mL injection, auto-injector ADMINISTER 0.3 MG IN THE MUSCLE 1 TIME [facility] eszopiclone (LUNESTA) 1 MG tablet Take 1 tablet (1 mg total) by mouth nightly at bedtime. at bedtime. Default History Genericprovider FARXIGA 10 MG Tab 09/16/21 Doc [facility] fenofibrate 160 MG tablet Take 1 tablet (160 mg total) by mouth daily. Default History Genericprovider fluticasone propionate (FLONASE) 50 MCG/ACT nasal spray fluticasone propionate 50 mcg/actuation nasal spray,suspension inhale 2 sprays each nostril daily Default History Genericprovider fluticasone-salmeterol (ADVAIR DISKUS) 250-50 MCG/ACT inhaler 2 (two) times daily. Default History Genericprovider Glucagon (BAQSIMI ONE PACK) 3 MG/DOSE Powder Baqsimi 3 mg/actuation nasal spray USE 1 SPRAY INTO ONE NOSTRIL ONCE DIRECTED FOR LOW BLOOD SUGAR 09/12/21 Doc [facility] insulin aspart 100 UNIT/ML injection (PEN) Inject into the skin 3 (three) times daily before meals.Doc [facility] Abstract insulin aspart 100 UNIT/ML injection (VIAL) Inject into the skin 3 (three) times daily before meals. Doc [facility] Insulin Disposable Pump (OMNIPOD DASH PODS, GEN 4,) [facility] Omnipod Dash Pods (Gen 4) Default History Genericprovider ketorolac (ACULAR) 0.5 % ophthalmic solution ketorolac 0.5 % eye drops INSTILL 1 DROP INTO EACH EYE 4 TIMES DAILY Default History Genericprovider lamoTRIgine 100 MG tablet Take 1 tablet (100 mg total) by mouth 2 (two) times daily. Doc [facility] losartan (COZAAR) 50 MG tablet Take 1 tablet (50 mg total) by mouth daily. Doc [facility] montelukast 10 MG tablet Take 1 tablet (10 mg total) by mouth nightly at bedtime. Doc [facility] ondansetron (ZOFRAN ODT) 4 MG disintegrating tablet Take 1 tablet (4 mg total) by mouth every 8 (eight) hours as needed for Nausea. 10/05/21 Presley Hernandez MD OZEMPIC, 0.25 OR 0.5 MG/DOSE, 2 MG/3ML injection (PEN) Ozempic 0.25 mg or 0.5 mg (2 mg/3 mL) subcutaneous pen injector Default History Genericprovider pantoprazole EC (PROTONIX) 40 MG tablet Take 1 tablet (40 mg total) by mouth 2 (two) times daily. Doc [facility] phentermine (ADIPEX-P) 37.5 MG tablet 09/16/21 Doc [facility] propranolol (INDERAL) 20 MG tablet Take 1 tablet by mouth twice daily 08/17/22 Presley Hernandez MD rimegepant (NURTEC) 75 MG disintegrating tablet Take 1 tablet (75 mg total) by mouth daily as needed for Migraine. 08/08/21 Presley Hernandez MD rimegepant (NURTEC) 75 MG disintegrating tablet Take 1 tablet (75 mg total) by mouth as needed for Migraine. 10/04/22 Presley Hernandez MD rizatriptan (MAXALT) 10 MG tablet Take 1 tablet (10 mg total) by mouth as needed for Migraine. May repeat in 2 hours if needed 08/08/21 Presley Hernandez MD topiramate (TOPAMAX) 200 MG tablet Take 1 tablet (200 mg total) by mouth 2 (two) times daily. 08/08/21 Presley Hernandez MD traZODone (DESYREL) 50 MG tablet TAKE 1 TO 2 TABLETS BY MOUTH ONCE DAILY AT NIGHT Default History Genericprovider triamcinolone (KENALOG) 0.1 % ointment triamcinolone acetonide 0.1 % topical ointment Doc [facility] Abstract vitamin D2, ergocalciferol, (DRISDOL) 1.25 mg capsule TAKE 1 CAPSULE BY MOUTH ONCE A WEEK DIRECTED Default History Genericprovider Allergies Allergen Reactions Mushroom Extract Complex Anaphylaxis Pecans Anaphylaxis Past Medical History: Diagnosis Date Anxiety disorder, unspecified Asthma COVID 06/02/2022 Depression Diabetes mellitus ([facility]) GERD (gastroesophageal reflux disease) Hypertension Migraines Past Surgical History: Procedure Laterality Date ADENOIDECTOMY GASTRIC SLEEVE PROCEDURE--P 2020 REVISE ULNAR NERVE AT ELBOW Left SINUS SURGERY PROC UNLISTED TONSILLECTOMY Social History Socioeconomic History Marital status: Single Spouse name: Not on file Number of children: 0 Years of education: Some college Highest education level: Not on file Occupational History Not on file Tobacco Use Smoking status: Former Types: Cigarettes Smokeless tobacco: Former Vaping Use Vaping Use: Never used Substance and Sexual Activity Alcohol use: Yes Comment: occasionally Drug use: Yes Comment: marijuana cream on elbow Sexual activity: Not on file Other Topics Concern Service Not Asked Blood Transfusions Not Asked Caffeine Concern Not Asked Occupational Exposure Not Asked Hobby Hazards Not Asked Sleep Concern Not Asked Stress Concern Not Asked Weight Concern Not Asked Special Diet Not Asked Back Care Not Asked Exercise Not Asked Bike Helmet Not Asked Seat Belt Not Asked Self-Exams Not Asked Wheelchair Not Asked Walker Not Asked Upper extremity braces/slings Not Asked Lower extermity braces/slings Not Asked Self Care Yes Social History Narrative Lives at home alone. Social Determinants of Health Financial Resource Strain: Not on file Food Insecurity: Not on file Transportation Needs: Not on file Physical Activity: Not on file Stress: Not on file Social Connections: Not on file Intimate Partner Violence: Not on file Housing Stability: Not on file Review of Systems: no changes except specified in HPI, no bladder or bowel incontinence PHYSICAL EXAM There were no vitals filed for this visit. General: alert, appears stated age and cooperative Skin: normal and no rash or abnormalities HEENT: neck supple with midline trachea Lungs: no respiratory distress Heart: regular rate and rhythm Abdomen: soft Neuro: Unchanged 08/07/2022 ASSESSMENT Cervical radiculopathy PLAN 42-year-old female seen as a follow-up we will proceed with cervical epidural injection. Risk, benefits, alternatives were discussed. Patient agreeable plan. Risks including, but not limited to infection, permanent neurological deficit due to nerve root injury, bleeding, anaphylaxis, flushing, cerebral spinal fluid leak, paralysis, spinal cord injury, thinning of the skin, thinning of the bones, muscle cramping. documented in this encounter OR Notes * Op Note - Lidia Weston MD - 10/05/2022 9:50 AM CDT PROCEDURE: midline CERVICAL INTERLAMIINAR EPIDURAL STEROID INJECTION UNDER FLUOROSCOPY PREOPERATIVE DIAGNOSIS: CERVICAL RADICULOPATHY POSTOPERATIVE DIAGNOSIS: SAME PREOP RISKS, BENEFITS, ALTERNATE TREATMENTS DISCUSSED. WRITTEN CONSENT OBTAINED. PATIENT TAKEN TO PROCEDURE ROOM PLACED IN PRONE POSITION. PILLOW UNDER CHEST. HEAD IN A NEUTRAL POSITION. STERILE PREP AND DRAPE OF CERVICAL SPINE PERFORMED. ASA STANDARD MONITORS APPLIED. Risks including, but not limited to infection, permanent neurological deficit due to nerve root injury, bleeding, anaphylaxis, flushing, cerebral spinal fluid leak, paralysis, spinal cord injury, thinning of the skin, thinning of the bones, muscle cramping. VERTEBRAL BODIES WERE SQUARED.. SKIN AND SUBCUTANEOUS TISSUES ANESTHETIZED WITH 1% LIDOCAINE. 20 GAUGE TOUHY EPIDURAL NEEDLE WAS PLACED midline AT THE LEVEL OF C5-6 USING LOSS OF RESISTANCE TO SALINE. APPROPRIATE NEEDLE TIP POSITION WAS CONFIRMED IN THE AP AND LATERAL VIEWS. AFTER NEGATIVE ASPIRATION, 3 CC OF CONTRAST WAS INJECTED IN THE LATERAL VIEW CONFIRMING SPREAD IN THE POSTERIOR EPIDURAL SPACE. NEGATIVE ASPIRATION PRIOR TO 3 CC OF CONTRAST INJECTED IN THE AP VIEW CONFIRMING SPREAD IN THE EPIDURAL SPACE NO INTRAVASCULAR OR INTRATHECAL UPTAKE NOTED. NEGATIVE ASPIRATION PRIOR TO INJECTION OF 20 MG DECADRON and 2 CC 1% lidocaine. NEEDLE REMOVED. NO COMPLICATIONS. POST PROCEDURE: PATIENT TOLERATED PROCEDURE WELL AND OBSERVED PRIOR TO DISCHARGE. DISCHARGED IN STABLE CONDITION WITH APPROPRIATE POST-PROCEDURE INSTRUCTIONS. documented in this encounter Plan of Treatment Upcoming Encounters Date Type Department Care Team (Late st Contact Info) Description 04/15/2024 1:00 PM SOFTWARE ENGINEER Office Visit [facility] [address], [address] [place] [id number] Presley Hernandez MD [address] [place] [address] 04/30/2024 10:40 AM SOFTWARE ENGINEER Office Visit [facility] [address], [address] [place] [phone] Presley Hernandez MD [address] [place] [address] documented as of this encounter Procedures Procedure Name Priority Date/Time Associated Diagnosis Comments NJX INTERLAMINAR CRV/THRC 10/05/2022 9:37 AM CDT Cervical radiculopathy XR PAIN CLINIC C-ARM Today 10/05/2022 8:54 AM CDT documented in this encounter Results * XR PAIN CLINIC C-ARM (10/05/2022 8:54 AM CDT) Narrative Radiology, Technologist - 10/05/2022 8:54 AM CDT This report does not contain a radiologist's interpretation. Please review associated procedure and/or operative report. Lidia Weston MD GENERAL IMAGING Final Result documented in this encounter Visit Diagnoses Diagnosis Cervical radiculopathy- Primary Brachial neuritis or radiculitis nos Lumbar radiculopathy Thoracic or lumbosacral neuritis or radiculitis, unspecified Cervical radiculopathy Brachial neuritis or radiculitis nos Cervical radiculopathy Brachial neuritis or radiculitis nos documented in this encounter Admitting Diagnoses Diagnosis Cervical radiculopathy Brachial neuritis or radiculitis nos documented in this encounter Administered Medications Inactive Administered Medications - up to 3 most recent administrations Medication Order MAR Action Action Date Dose Rate Site chlorhexidine (PERIDEX) 0.12 % solution 15 mL 15 mL, Mouth/Throat, PRN, Prior to surgery, 1 dose, Starting on Sat10/05/22 at 0912, Until Sat10/05/22 at 1159, Patient to perform oral care first. Swish/Gargle in mouth for 30 seconds, and then discard, prior to going to surgery/ If ventilated use saturated swab to clean oral cavity., Pre-Op dexamethasone PF (DECADRON) injection As needed, Starting on Sat10/05/22 at 0944, Until Sat10/05/22 at 0945, Intra-Op Given 10/05/2022 9:44 AM CDT 20 mg diazePAM (VALIUM) tablet 10 mg 10 mg, Oral, Once as needed, Anxiety, 1 dose, Starting on Sat10/05/22 at 0912, Until Sat10/05/22 at 0930, Pre-Op Given 10/05/2022 9:30 AM CDT 10 mg HYDROcodone-acetaminophen (NORCO) 5-325 MG tablet 1 tablet 1 tablet, Oral, Once, 1 dose, On Sat10/05/22 at 0930, Maximum dose of acetaminophen is 4000 mg from all sources in 24 hours. Given 10/05/2022 9:29 AM CDT 1 tablet iopamidol (ISOVUE-M 300) 61 % injection As needed, Starting on Sat10/05/22 at 0944, Until Sat10/05/22 at 0945, Intra-Op Given 10/05/2022 9:44 AM CDT 5 mLs lidocaine (PF) (XYLOCAINE) 1 % injection As needed, Starting on Sat10/05/22 at 0941, Until Sat10/05/22 at 0945, Intra-Op Given 10/05/2022 9:41 AM CDT 2 mLs Other documented in this encounter Active and Recently Administered Medications Times are shown in CDT. Scheduled Medication Order 10/03/2022 10/04/2022 10/05/2022 HYDROcodone-acetaminophen (NORCO) 5-325 MG tablet 1 tablet (COMPLETED) 1 tablet, Oral, Once, 1 dose, On Sat10/05/22 at 0930, Maximum dose of acetaminophen is 4000 mg from all sources in 24 hours. 928 (Given - Provid er: Elyssa L Javed, RN) PRN Medication Order 10/03/2022 10/04/2022 10/05/2022 chlorhexidine (PERIDEX) 0.12 % solution 15 mL 15 mL, Mouth/Throat, PRN, Prior to surgery, 1 dose, Starting on Sat10/05/22 at 0912, Until Sat10/05/22 at 1159, Patient to perform oral care first. Swish/Gargle in mouth for 30 seconds, and then discard, prior to going to surgery/ If ventilated use saturated swab to clean oral cavity., Pre-Op dexamethasone PF (DECADRON) injection (CANCELED) As needed, Starting on Sat10/05/22 at 0944, Until Sat10/05/22 at 0945, Intra-Op 0944 (Given - Provid er: Lidia Weston MD) diazePAM (VALIUM) tablet 10 mg (COMPLETED) 10 mg, Oral, Once as needed, Anxiety, 1 dose, Starting on Sat10/05/22 at 0912, Until Sat10/05/22 at 0930, Pre-Op 0930 (Given - Provid er: Elyssa Burt RN) iopamidol (ISOVUE-M 300) 61 % injection (CANCELED) As needed, Starting on Sat10/05/22 at 0944, Until Sat10/05/22 at 0945, Intra-Op 0944 (Given - Provid er: Lidia Weston MD) lidocaine (PF) (XYLOCAINE) 1 % injection (CANCELED) As needed, Starting on Sat10/05/22 at 0941, Until Sat10/05/22 at 0945, Intra-Op 0941 (Given - Provid er: Lidia Weston MD) documented in this encounter Care Teams Licensed Mortgage Loan Officer Relationship Specialty Start Date End Date Deedee Low PA [address] [place] [address] PCP - General PHYSICIAN FREIGHT MANAGER 07/22/20 documented as of this encounter
--- OUTSIDE RECORDS SUMMARY | 2024-02-24 16:58 | XMS_ITS | Encounter Summary ---
Author Organization [facility] Address [address] [place] [address]. [place], [place] [id number] [place] [id number] Care Team Providers Care Electrical Continuity Inspector Name Role Phone Zeyadseveriano Deedee DELMER Primary Care Provider [phone] Reason for Visit * Reason Comments Numbness Encounter Details Date Type Department Care Team (Late st Contact Info) Description 03/11/2023 3:21 AM MOLD CLEANING AND STORAGE SUPERVISOR - 03/11/2023 6:35 AM MOLD CLEANING AND STORAGE SUPERVISOR Emergency [facility] [place] [address] Campbell Stoner MD,PHD [address] [place] [address] Numbness Discharge Disposition: Home or Self Care (Routine [...] Sign Reading Time Taken Comments Blood Pressure 129/86 03/11/2023 6:00 AM MOLD CLEANING AND STORAGE SUPERVISOR Pulse 95 03/11/2023 5:00 AM MOLD CLEANING AND STORAGE SUPERVISOR Temperature 36.9 ??C (98.4 ??F) 03/11/2023 3:18 AM CS T Respiratory Rate 18 03/11/2023 6:00 AM MOLD CLEANING AND STORAGE SUPERVISOR Oxygen Saturation 94% 03/11/2023 6:00 AM MOLD CLEANING AND STORAGE SUPERVISOR Inhaled Oxygen Concentration - - Weight 98 kg (216 lb) 03/11/2023 3:18 AM MOLD CLEANING AND STORAGE SUPERVISOR Height 162.6 cm (5' 4 ) 03/11/2023 3:18 AM MOLD CLEANING AND STORAGE SUPERVISOR Body Mass Index 37.08 03/11/2023 3:18 AM MOLD CLEANING AND STORAGE SUPERVISOR documented in this encounter Discharge Instructions * Attachments The following attachments cannot be sent through Care Everywhere. * Paresthesia Discharge Instructions (Mauritian) documented in this encounter Medications at Time [...] (TEGRETOL) 200 MG tabletIndications:M S (multiple sclerosis) ([facility]),Migraine without aura, not intractable, without status migrainosus TAKE 1/2 (ONE-HALF) TABLET BY MOUTH THREE TIMES DAILY 135 tablet 3 cetirizine 10 MG tablet Take 1 tablet (10 mg total) by mouth daily. Continuous Blood Gluc Sensor (DEXCOM G6 SENSOR) [facility] 2 Continuous Blood Gluc Transmit (DEXCOM G6 TRANSMITTER) [facility] 2 diazePAM 5 MG [...] (TOPAMAX) 200 MG tabletIndications:M S (multiple sclerosis) (CMS/HCC [facility]),Migraine without aura, not intractable, without status migrainosus [...] (INDERAL) 20 MG tabletIndications:M S (multiple sclerosis) (CMS/HCC HHS/HCC),Migraine without aura, not [...] mouth as needed for Migraine. 16 tablet 11 3 07/24/19 24 rimegepant (NURTEC) 75 MG disintegrating tabletIndications:M igraine without aura, not intractable, without status migrainosus Take 1 tablet (75 mg total) by mouth as needed. Max of 1 tablet (75 mg) in 24 hours. 16 tablet 11 3 07/24/19 24 rizatriptan (MAXALT) 10 MG tabletIndications:M S (multiple sclerosis) (CMS/HCC HHS/HCC),Migraine without aura, not intractable, without status migrainosus Take 1 tablet (10 mg total) by mouth as needed for Migraine. May repeat in 2 hours if needed 16 tablet 5 2 07/24/19 24 documented as of this encounter ED Notes * Campbell Stoner MD,PHD - 03/11/2023 4:53 AM CST EMERGENCY DEPARTMENT ENCOUNTER Chief Complaint Chief Complaint Patient presents with Numbness History of Present Illness 42-year-old female with a history of migraine headaches as well as trigeminal neuralgia presenting to the emergency department with perioral paresthesias. The patient has had the symptoms since sometimes yesterday. She has not had a headache though did states she had visual disturbances earlier in the day consistent with aura she has seen in the past associated with migraines. Physical Exam Filed Vitals: 03/11/23 0318 03/11/23 0500 03/11/23 0530 03/11/23 0600 BP: (!) 174/141 (!) 159/110 (!) 131/92 129/86 Pulse: 98 95 Resp: 18 18 18 Temp: 98.4 ??F (36.9 ??C) TempSrc: Temporal SpO2: 98% 98% 98% 94% Weight: 98 kg (216 lb) Height: 1.626 m (5' 4 ) CONSTITUTIONAL: Patient is awake, alert, in no acute distress, conversant RESPIRATORY: No respiratory distress or tachypnea NEUROLOGIC: GCS 15, moves all extremities clear without drift, ambulates without difficulty, fine touch sensation is intact in the face but subjectively different when comparing the perioral region to the forehead and cheek, this is equal bilaterally though the patient states it is slightly worse on the left, the cranial nerves are otherwise intact Diagnostic Studies / Procedures LABORATORY STUDIES: Results for orders placed or performed during the hospital encounter of 03/11/23 CBC W/DIFF AUTOMATED Result Value Ref Range WBC 8.0 4.5 - 11.0 x10'3/uL RBC 4.81 4.20 - 5.40 x10'6/uL HGB 14.7 12.0 - 16.0 G/DL HCT 43.7 38.0 - 48.0 % MCV 90.9 81.0 - 99.0 FL MCH 30.6 27.0 - 31.0 PG MCHC 33.6 32.0 - 36.0 G/DL RDW 12.6 11.5 - 14.5 % PLT 257 130 - 400 x10'3/uL MPV 9.0 (L) 9.3 - 12.2 FL DIFFERENTIAL TYPE AUTOMATED DIFFERENTIAL NEUTROPHILS 54.8 % LYMPHOCYTES 34.4 % MONOCYTES 6.8 % EOSINOPHILS 2.5 % BASOPHILS 1.1 % IMMATURE GRANS 0.4 % ABS. NEUTROPHILS TOTAL 4.40 1.80 - 7.70 x10'3/uL ABS. LYMPHOCYTES 2.76 1.00 - 4.80 x10'3/uL ABS. MONOCYTES 0.55 0.24 - 0.86 x10'3/uL ABS. EOSINOPHILS 0.20 0.04 - 0.36 x10'3/uL ABS. BASOPHILS 0.09 (H) 0.01 - 0.08 x10'3/uL ABS. IMMATURE GRANULOCYTES 0.03 0.00 - 0.49 x10'3/uL COMPREHENSIVE METABOLIC PANEL Result Value Ref Range GLUCOSE 104 (H) 70 - 99 MG/DL BUN 10 7 - 18 MG/DL CREATININE S/P/B 0.60 0.55 - 1.02 MG/DL SODIUM S/P/B 137 136 - 145 MMOL/L POTASSIUM S/P/B 3.7 3.5 - 5.1 MMOL/L CHLORIDE S/P/B 105 100 - 108 MMOL/L CO2 29.1 21 - 32 MMOL/L CALCIUM S/P/B 9.7 8.5 - 10.1 MG/DL BILIRUBIN TOTAL S/P/B 1.0 0.2 - 1.2 MG/DL TOTAL PROTEIN S/P/B 7.1 6.4 - 8.2 G/DL ALBUMIN S/P/B 3.8 3.4 - 5.0 G/DL AST 18 15 - 37 U/L ALT 28 14 - 55 U/L ALKALINE PHOSPHATASE S/P/B 65 50 - 136 U/L ANION GAP 2.9 (L) 5 - 15 MMOL/L BUN CREATININE RATIO 16.6 6 - 26 A/G RATIO 1.2 1.0 - 2.0 RATIO GFR ESTIMATE >90 >90 ML/MIN/1.73 M2 MAGNESIUM Result Value Ref Range MAGNESIUM 2.3 1.8 - 2.4 MG/DL PHOSPHORUS, INORGANIC PHOSPHATE Result Value Ref Range PHOSPHORUS 3.2 2.5 - 4.9 MG/DL ED Course / Medical Decision Making Patient presenting with a chief complaint of perioral paresthesias I reviewed the patient's labs, which are significant for borderline hyperglycemia and they are otherwise unremarkable and this includes a CBC, CMP, magnesium, and phosphorus. I interpreted the patient's pulse oximeter at rest, which is 94% on room air, which is normal and determined that this patient is not hypoxic Medication management: The patient takes a dose of Nurtec which she brought with her to the emergency department and has improvement in her paresthesias The patient's neurologic exam is normal. The distribution of her paresthesias is not consistent with a central nervous system lesion due to its bilateral nature periorally and thus neuroimaging is deemed not indicated. Due to her having improvement with Nurtec, I think this may be possibly an indicator of a complex migraine. The patient is established with neurology. The patient was thus deemed stable for discharge from emergency department Clinical Impression Paresthesias (Primary) Disposition: Discharge home Patient provided with printed and verbal discharge care instructions and was instructed to return to the emergency department immediately with worsening symptoms or new worrisome symptoms. Patient was instructed to follow-up with primary care physician within 1 week for further evaluation and treatment. Diagnoses & treatment discussed with patient Patient expressed understanding and agreed. Campbell Stoner MD,PHD 03/11/23 [id number] CLEANING AND STORAGE SUPERVISOR * Reyes Boyd RN - 03/11/2023 3:17 AM CST Patient ambulatory to triage from home with complaint of numbness to face and tongue and pain underright eye, numbness starts at nose and goes down, patient is A&Ox4 denies any other complaints at this time. Stroke scale Negative. CLEANING AND STORAGE SUPERVISOR documented in this encounter Plan of Treatment Upcoming Encounters Date Type Department Care Team (Late st Contact Info) Description 04/15/2024 1:00 PM MOLD CLEANING AND STORAGE SUPERVISOR Office Visit [facility] - [address], [address] [place] [address] Presley Hernandez MD [address] [place] [address] 04/30/2024 10:40 AM MOLD CLEANING AND STORAGE SUPERVISOR Office Visit [facility] - [address], [address] [place] [address] Presley Hernandez MD [address] [place] [address] documented as of this encounter Procedures Procedure Name Priority Date/Time Associated Diagnosis Comments COMPREHENSIVE METABOLIC PANEL STAT 03/11/2023 5:00 AM MOLD CLEANING AND STORAGE SUPERVISOR CBC W/DIFF AUTOMATED STAT 03/11/2023 5:00 AM MOLD CLEANING AND STORAGE SUPERVISOR PHOSPHORUS, INORGANIC PHOSPHATE STAT 03/11/2023 5:00 AM MOLD CLEANING AND STORAGE SUPERVISOR MAGNESIUM STAT 03/11/2023 5:00 AM MOLD CLEANING AND STORAGE SUPERVISOR documented in this encounter Results * PHOSPHORUS, INORGANIC PHOSPHATE (03/11/2023 5:00 AM MOLD CLEANING AND STORAGE SUPERVISOR) PHOSPHORUS 3.2 2.5 - 4.9 MG/DL 03/11/2023 6:01 AM MOLD CLEANING AND STORAGE SUPERVISOR [facility] 03/11/2023 5:00 AM MOLD CLEANING AND STORAGE SUPERVISOR Campbell Stoner MD,PHD LABORATORY Final Resu lt [facility] [address] [place] [address], [place] [phone] * MAGNESIUM (03/11/2023 5:00 AM MOLD CLEANING AND STORAGE SUPERVISOR) MAGNESIUM 2.3 1.8 - 2.4 MG/DL 03/11/2023 6:01 AM [facility] 03/11/2023 5:00 AM MOLD CLEANING AND STORAGE SUPERVISOR Campbell Stoner MD,PHD LABORATORY Final Resu lt [facility] [address] [place] [address], * (ABNORMAL) COMPREHENSIVE METABOLIC PANEL (03/11/2023 5:00 AM MOLD CLEANING AND STORAGE SUPERVISOR) Pathologist [facility] GLUCOSE 104(H) 70 - 99 MG/DL 03/11/2023 6:01 AM [facility] BUN 10 7 - 18 MG/DL 03/11/2023 6:01 AM [facility] CREATININE S/P/B 0.60 0.55 - 1.02 MG/DL 03/11/2023 6:01 AM [facility] SODIUM S/P/B 137 136 - 145 MMOL/L 03/11/2023 6:01 AM [facility] POTASSIUM S/P/B 3.7 3.5 - 5.1 MMOL/L 03/11/2023 6:01 AM [facility] CHLORIDE S/P/B 105 100 - 108 MMOL/L 03/11/2023 6:01 AM [facility] CO2 29.1 21 - 32 MMOL/L 03/11/2023 6:01 AM [facility] CALCIUM S/P/B 9.7 8.5 - 10.1 MG/DL 03/11/2023 6:01 AM [facility] BILIRUBIN TOTAL S/P/B 1.0 0.2 - 1.2 MG/DL 03/11/2023 6:01 AM [facility] Comment: THIS ASSAY IS NOT RECOMMENDED FOR PATIENTS UNDERGOING TREATMENT WITH ELTROMBOPAG DUE TO THE POTENTIAL FOR FALSELY ELEVATED RESULTS. TOTAL PROTEIN S/P/B 7.1 6.4 - 8.2 G/DL 03/11/2023 6:01 AM [facility] ALBUMIN S/P/B 3.8 3.4 - 5.0 G/DL 03/11/2023 6:01 AM [facility] AST 18 15 - 37 U/L 03/11/2023 6:01 AM [facility] ALT 28 14 - 55 U/L 03/11/2023 6:01 AM [facility] ALKALINE PHOSPHATASE S/P/B 65 50 - 136 U/L 03/11/2023 6:01 AM [facility] ANION GAP 2.9(L) 5 - 15 MMOL/L 03/11/2023 6:01 AM [facility] BUN CREATININE RATIO 16.6 6 - 26 03/11/2023 6:01 AM [facility] A/G RATIO 1.2 1.0 - 2.0 RATIO 03/11/2023 6:01 AM [facility] GFR ESTIMATE >90 >90 ML/MIN/1.7 3 M2 03/11/2023 6:01 AM [facility] Comment: NOTE: eGFR is not calculated for patients <18 years of age. This is an estimated GFR calculation using the new CKD EPI creatinine equation without race and so does not require a correction factor for race. This estimated GFR should not be used for calculating drug doses. 03/11/2023 5:00 AM MOLD CLEANING AND STORAGE SUPERVISOR us Campbell Stoner MD,PHD LABORATORY Final Resu lt [facility] [address] [place] [address], [place] [phone] * (ABNORMAL) CBC W/DIFF AUTOMATED (03/11/2023 5:00 AM MOLD CLEANING AND STORAGE SUPERVISOR) [facility] WBC 8.0 4.5 - 11.0 x10'3/uL 03/11/2023 5:12 AM [facility] RBC 4.81 4.20 - 5.40 x10'6/uL 03/11/2023 5:12 AM [facility] HGB 14.7 12.0 - 16.0 G/DL 03/11/2023 5:12 AM [facility] HCT 43.7 38.0 - 48.0 % 03/11/2023 5:12 AM [facility] MCV 90.9 81.0 - 99.0 FL 03/11/2023 5:12 AM [facility] MCH 30.6 27.0 - 31.0 PG 03/11/2023 5:12 AM [facility] MCHC 33.6 32.0 - 36.0 G/DL 03/11/2023 5:12 AM [facility] RDW 12.6 11.5 - 14.5 % 03/11/2023 5:12 AM [facility] PLT 257 130 - 400 x10'3/uL 03/11/2023 5:12 AM [facility] MPV 9.0(L) 9.3 - 12.2 FL 03/11/2023 5:12 AM [facility] DIFFERENTIAL TYPE AUTOMATED DIFFERENTIAL 03/11/2023 5:12 AM [facility] NEUTROPHILS % 54.8 % 03/11/2023 5:12 AM [facility] LYMPHOCYTES % 34.4 % 03/11/2023 5:12 AM [facility] MONOCYTES % 6.8 % 03/11/2023 5:12 AM MOLD CLEANING AND STORAGE SUPERVISOR [facility] EOSINOPHILS 2.5 % 03/11/2023 5:12 AM MOLD CLEANING AND STORAGE SUPERVISOR [facility] BASOPHILS 1.1 % 03/11/2023 5:12 AM MOLD CLEANING AND STORAGE SUPERVISOR [facility] IMMATURE GRANS % 0.4 % 03/11/19 5:12 AM MOLD CLEANING AND STORAGE SUPERVISOR [facility] ABS. NEUTROPHILS TOTAL 4.40 1.80 - 7.70 x10'3/uL 03/11/2023 5:12 AM MOLD CLEANING AND STORAGE SUPERVISOR [facility] ABS. LYMPHOCYTES 2.76 1.00 - 4.80 x10'3/uL 03/11/2023 5:12 AM MOLD CLEANING AND STORAGE SUPERVISOR [facility] ABS. MONOCYTES 0.55 0.24 - 0.86 x10'3/uL 03/11/2023 5:12 AM MOLD CLEANING AND STORAGE SUPERVISOR [facility] ABS. EOSINOPHILS 0.20 0.04 - 0.36 x10'3/uL 03/11/2023 5:12 AM MOLD CLEANING AND STORAGE SUPERVISOR [facility] ABS. BASOPHILS 0.09(H) 0.01 - 0.08 x10'3/uL 03/11/2023 5:12 AM [facility] ABS. IMMATURE GRANULOCYTES 0.03 0.00 - 0.49 x10'3/uL 03/11/2023 5:12 AM [facility] 03/11/2023 5:00 AM MOLD CLEANING AND STORAGE SUPERVISOR us Campbell Stoner MD,PHD LABORATORY Final Resu lt [facility] [address] [place] [address], [place] [phone] documented in this encounter Visit Diagnoses Diagnosis Paresthesias- Primary Disturbance of skin sensation documented in this encounter Care Teams Electrical Continuity Inspector Relationship Specialty Start Date End Date Deedee Low PA [address] [facility] [address] [place] [address] PCP - General PHYSICIAN [employer] REDEVELOPMENT SPECIALIST 07/22/20 documented as of this encounter
--- OUTSIDE RECORDS SUMMARY | 2024-02-24 16:58 | XMS_ITS | Encounter Summary ---
Author Organization [facility] Address [address] [place] [address]. [place], [place] [address] [place] [address] Care Team Providers Care Launch Commander [employer] Name Role Phone Deedee Low Primary Care Provider [phone] Reason for Referral * Procedure (Routine) - Closed Specialty Diagnoses / Procedures Referred By Contac t Referred To Contact Diagnoses Radiculopathy, cervical region Procedures NCVS\EMG (Hosp Performed) Presley Hernandez MD [address] [place] [address] Phone: tel: fax: Presley Hernandez MD [address] [place] [address] Phone: tel: fax: Referral ID Status Reason Start Date Expiration Date V isits Requested Visits Authorized [id number] Closed Office Procedure 06/03/2023 06/02/2024 1 1 Reason for Visit * Reason Comments Follow Up * Consultation/Treatment (Routine) - Pending Review Specialty Diagnoses / Procedures Referred By Contact Referred To Contact NEUROMUSCULOSKELETAL MEDICIN E / NEUROLOGY Diagnoses 2 mo f/u Procedures FOLLOW UP Presley Hernandez MD [address] [place] [address] Phone: tel:[phone] fax:[phone] Presley Hernandez MD [address] [place] [address] Phone: tel:[phone] fax:[phone] Referral ID Status Reason Start Date Expiration Date V isits Requested Visits Authorized [id number] Pending Review 06/03/2023 06/02/2024 99 99 Encounter Details Date Type Department Care Team (Late st Contact Info) Description 06/03/2023 3:00 PM CDT Office Visit [facility] Multispecialty Care - [address], [address] [place] [address] Presley Hernandez MD [address] [place], [place] [id number] Follow Up Social History Tobacco Use Types Packs/Day Years [...] Sign Reading Time Taken Comments Blood Pressure 133/84 06/03/2023 3:15 PM CDT Pulse 85 06/03/2023 3:15 PM CDT Temperature 36.8 ??C (98.3 ??F) 06/03/2023 3:15 PM CD T Respiratory Rate - - Oxygen Saturation 98% 06/03/2023 3:15 PM CDT Inhaled Oxygen Concentration - - Weight 97 kg (213 lb 12.8 oz) 06/03/2023 3:15 PM CDT Height 162.6 cm (5' 4 ) 06/03/2023 3:15 PM CDT Body Mass Index 36.7 06/03/2023 3:15 PM CDT documented in this encounter Progress Notes * Presley Hernandez MD - 06/03/2023 3:00 PM CDT Chief Complaint: Migraine HPI: With the pleasure of seeing Ms. Ruano in the clinic. Since I last saw her, she notes that her migraines have worsened. Botox has brought on the migraines, but she still having multiple days of migraine. Nurtec does help her. There is no side effects. Her neuralgia symptoms are also flared up in between. She is okay to get a Toradol shot today. Tinnitus is about the same. She still has neck pain.Its gotten worse as compared to before. MRI cervical spine done previously shows moderate level of neuroforaminal stenosis. She is okay to undergo nerve conduction EMG to see if this has worsened. She denies any recent falls or near falls. There is no concussion. There is no motor recollection. There is no change in the character of the headache, just become more frequent and severe. She is stillon Topamax 200 mg twice a day. I have asked her to make it once a day at bedtime. Review of Systems Gen: denies recent fever Eyes: denies double vision ENT: denies epistaxis Pulm: denies shortness of breath Cardiac: denies Chest pain Musc: denies back pain Heme: denies easy bruising Neuro: See HPI Current Outpatient Medications Medication Sig Dispense Refill albuterol sulfate HFA 108 (90 Base) MCG/ACT [...] (two) times daily. carBAMazepine (TEGRETOL) 200 MG tablet TAKE 1/2 (ONE-HALF) TABLET BY MOUTH THREE TIMES DAILY 135 tablet 0 cetirizine 10 MG tablet Take 1 tablet (10 mg total) by mouth daily. Continuous Blood Gluc Sensor (DEXCOM G6 SENSOR) [facility] Continuous Blood Gluc Transmit (DEXCOM G6 TRANSMITTER) [facility] diazePAM 5 MG tablet Take 1 tablet [...] by mouth nightly at bedtime. at bedtime. FARXIGA 10 MG Tab fenofibrate 160 MG tablet Take 1 tablet (160 mg total) by mouth daily. fluticasone propionate (FLONASE) 50 MCG/ACT nasal spray fluticasone propionate 50 mcg/actuation nasal spray,suspension inhale 2 sprays each nostril daily fluticasone-salmeterol (ADVAIR DISKUS) 250-50 MCG/ACT inhaler 2 (two) times daily. Glucagon (BAQSIMI ONE PACK) 3 MG/DOSE Powder Baqsimi 3 mg/actuation nasal spray USE 1 SPRAY INTO ONE NOSTRIL ONCE DIRECTED FOR LOW BLOOD SUGAR insulin aspart 100 UNIT/ML injection (PEN) Inject into the skin 3 (three) times daily before meals. insulin aspart 100 UNIT/ML injection (VIAL) Inject into the skin 3 (three) times daily before meals. Insulin Disposable Pump (OMNIPOD DASH PODS, GEN 4,) Misc Omnipod Dash Pods (Gen 4) insulin lispro (HUMALOG) 100 UNIT/ML injection (VIAL) Inject 10,000 Units into the skin once. JARDIANCE 25 MG tablet Take 1 tablet (25 mg total) by mouth daily. ketorolac (TORADOL) 10 MG tablet Take 1 tablet (10 mg total) by mouth every 6 (six) hours as neededfor Pain. 20 tablet 11 lamoTRIgine 100 MG tablet Take 1 tablet (100 mg total) by mouth 2 (two) times daily. losartan (COZAAR) 50 MG tablet Take 1 tablet (50 mg total) by mouth daily. montelukast 10 MG tablet Take 1 tablet (10 mg total) by mouth nightly at bedtime. ondansetron (ZOFRAN ODT) 4 MG disintegrating tablet Take 1 tablet (4 mg total) by mouth every 8 (eight) hours as needed for Nausea. 20 tablet 11 OZEMPIC 1 mg/dose injection (PEN) Inject 1 mg into the skin once a week. pantoprazole EC (PROTONIX) 40 MG tablet Take 1 tablet (40 mg total) by mouth 2 (two) times daily. propranolol (INDERAL) 20 MG tablet Take 1 tablet by mouth twice daily 120 tablet 0 rimegepant (NURTEC) 75 MG disintegrating tablet Take 1 tablet (75 mg total) by mouth daily as needed for Migraine. 16 tablet 5 rizatriptan (MAXALT) 10 MG tablet Take 1 tablet (10 mg total) by mouth as needed for Migraine. May repeat in 2 hours if needed 16 tablet 5 topiramate (TOPAMAX) 200 MG tablet Take 1 tablet (200 mg total) by mouth 2 (two) times daily. 60 tablet 6 traZODone (DESYREL) 50 MG tablet TAKE 1 TO 2 TABLETS BY MOUTH ONCE DAILY AT NIGHT triamcinolone (KENALOG) 0.1 % ointment triamcinolone acetonide 0.1 % topical ointment vitamin D2, ergocalciferol, (DRISDOL) 1.25 mg capsule TAKE 1 CAPSULE BY MOUTH ONCE A WEEK DIRECTED rimegepant (NURTEC) 75 MG disintegrating tablet Take 1 tablet (75 mg total) by mouth as needed for Migraine. (Patient not taking: Reported on 06/03/2023) 16 tablet 11 rimegepant (NURTEC) 75 MG disintegrating tablet Take 1 tablet (75 mg total) by mouth as needed. Maxof 1 tablet (75 mg) in 24 hours. (Patient not taking: Reported on 06/03/2023) 16 tablet 11 rimegepant (NURTEC) 75 MG disintegrating tablet Take 1 tablet (75 mg total) by mouth as needed. Maxof 1 tablet (75 mg) in 24 hours. (Patient not taking: Reported on 06/03/2023) 16 tablet 11 ubrogepant (UBRELVY) 100 MG tablet Take 1 tablet (100 mg total) by mouth 2 (two) times daily as needed. Max of 2 tablets (200 mg) in 24 hours (Patient not taking: Reported on 06/03/2023) 16 tablet 11 No current facility-administered medications for this visit. Filed Vitals: 06/03/23 1515 BP: 133/84 Pulse: 85 Temp: 98.3 ??F (36.8 ??C) TempSrc: Temporal SpO2: 98% Weight: 97 kg (213 lb 12.8 oz) Height: 1.626 m (5' 4 ) Past Medical History: Diagnosis Date Anxiety disorder, unspecified Asthma ([facility]) COVID 06/02/2022 Depression Diabetes mellitus ([facility]) GERD (gastroesophageal reflux disease) Hypertension Migraines Past [...] tried in high school Vaping Use Vaping Use: Never used Substance Use Topics Alcohol use: Yes Comment: occasionally Drug use: Yes Comment: marijuana cream on elbow MOTOR: Normal strength 5/5 on MRC scale in the upper and lower extremities. Normal muscle tone. Fine finger movements were normal bilaterally. No pronator drift COORDINATION: Absent dysmetria on finger -nose -finger. No tremor. GAIT: Normal stride and base. REFLEXES: Normal 2+/4 in upper and lower extremities.. Weiss's negative. Assessment and plan In summary Ms. Ruano has chronic migraine with aura not in status migrainosus not intractable. With Botox her migraines have come down from 25 days a month to 16 days a month. To further reduce the migraines, I will do IV Vyepti infusion every 3 months. She has previously been on gabapentin, Cymbalta, Topamax, amitriptyline, Qulipta, without much benefit. I will continue Botox for her neuralgia/hemifacial spasm. I will manage the tinnitus conservatively. For breakthrough migraine, she will useNurtec as needed. If Nurtec does not work, I will give her oral Toradol as well. She has a migrainetoday for which I am giving her Toradol 15 mg. I did not do in case oral Toradol or Nurtec is not he lping, she can come to the clinic for Toradol injection. I will also fill out her FMLA form to helpwith her migraines better. I will see her back soon for Botox, and I will complete workup by doing nerve conduction EMG of the upper limb to see if there is worsening cervical radiculopathy. Based onthat she would benefit from a MRI of the cervical spine as well. Time spent: 30 total minutes reviewing records, history that was separately obtained, performing the exam, providing education to the patient/caregiver, ordering medicine and documenting in the medical record. PRESLEY HERNANDEZ MD documented in this encounter Plan of Treatment Upcoming Encounters Date Type Department Care Team (Late st Contact Info) Description 04/15/2024 1:00 PM HEAVY DUTY DIESEL MECHANIC [facility] [address], [address] [place] [phone] Presley Hernandez MD [address] [place] [id number] 04/30/2024 10:40 AM HEAVY DUTY DIESEL MECHANIC [facility] [address], [address] [place] [phone] Presley Hernandez MD [address] [place] [id number] documented as of this encounter Results * NCVS\EMG (Hosp Performed) (07/05/2023 11:00 AM CDT) Narrative [facility] - 07/05/2023 11:00 AM CDT Presley Hernandez MD ? 07/07/2023 ??3:07 PM For sensory nerve conduction studies, the amplitude is measured [id number], the latency reported is the distal peak latency, and the conduction velocity, if measured, is determined from onset latencies and is over the forearm. For motor nerve conduction studies, the amplitude is measured [id number], the latency reported is the distal onset latency, the conduction velocity is calculated over the forearm, and the F wave latency is the minimum latency. Unless otherwise noted, the hand temperature was monitored continuously and remained between 32??C and 36??C during the performance of the NCSs.The study was performed with a concentric needle electrode. Fibrillation and fasciculation activity is graded from none (0) to continuous (4+). The configuration and recruitment pattern of motor unit action potentials under voluntary control, if not normal, are described below. Abbreviations: NCS= nerve conduction study SNAP= sensory nerve action potential CMAP= compound muscle action potential MUP= motor unit potential EMG= electromyogram F IBS= fibrillations PS W's= positive sharp waves Summary of findings Bilateral median motor NCS is normal Bilateral ulnar motor NCS is normal Bilateral median sensory NCS shows prolonged latency Bilateral ulnar sensory NCS is absent Bilateral radial sensory NCS shows normal snap amplitude Bilateral median and ulnar orthodromic mixed NCS is normal Needle EMG of the right upper limb is normal Conclusion This shows evidence of bilateral mild right worse than left median mononeuropathy at the wrist [carpal tunnel syndrome]. ?? There is no evidence of a superimposed cervical radiculopathy. us Presley Hernandez MD NEUROLOGY ORDERABLES Sarah l Result [facility] [address] [place] [address], [place] [phone] documented in this encounter Visit Diagnoses Diagnosis Migraine without aura, not intractable, without status migrainosus- Primary Radiculopathy, cervical region Brachial neuritis or radiculitis nos Bilateral carpal tunnel syndrome- Primary Carpal tunnel syndrome Radiculopathy, cervical region Brachial neuritis or radiculitis nos documented in this encounter Administered Medications Inactive Administered Medications - up to 3 most recent administrations Medication Order MAR Action Action Date Dose Rate Site ketorolac (TORADOL) injection 15 mg 15 mg, Intramuscular, Once, 1 dose, On 06/03/23 at 1545Indications:Migraine without aura, not intractable, without status migrainosus Given 06/03/2023 3:47 PM CDT 15 mg Right Deltoid documented in this encounter Care Teams Launch Commander [employer] Relationship Specialty Start Date End Date Deedee Low PA [address] [facility] [address] [place] [address] PCP - General PHYSICIAN MEDICAL PRACTITIONERS 07/22/20 documented as of this encounter
--- OUTSIDE RECORDS SUMMARY | 2024-02-24 16:58 | XMS_ITS | Encounter Summary ---
Author Organization [facility] Address [address] [place] [address]. [place], [place] [address] [place] [address] Care Team Providers Care Mixing Machine Tender Cork Rod Name Role Phone Deedee Low Primary Care Provider [phone] Reason for Visit * Reason Comments Botox botox cervical dysto isabel, neuralgia 100units * Treatment/Therapy Plan Authorization (Routine) - Closed Specialty Diagnoses / Procedures Referred By Angelita t Referred To Contact Diagnoses Chronic migraine without aura without status migrainosus, not intractable Trigeminal neuralgia Spasmodic torticollis Procedures BOTULINUM TOXIN A PER UNIT Presley Hernandez MD [address] [place] [address] Phone: tel: fax: [facility] - [address], [address] [place] [address] Phone: tel: Referral ID Status Reason Start Date Expiration Date Visits Re quested Visits Authorized [id number] Closed 12/14/2022 12/15/2023 8 8 Encounter Details Date Type Department Care Team (Latest Contact Info) Description 04/25/2023 9:20 AM LASTING FLOORWORKER Office Visit [address], [address] [place] [address] Presley Hernandez MD [address] [place] [address] Botox (botox cervical dystonia, neuralgia 100units) Social History Tobacco Use Types Packs/Day Years [...] Sign Reading Time Taken Comments Blood Pressure 138/86 04/25/2023 9:29 AM LASTING FLOORWORKER Pulse 95 04/25/2023 9:29 AM LASTING FLOORWORKER Temperature 36.6 ??C (97.9 ??F) 04/25/2023 9:29 AM CS T Respiratory Rate - - Oxygen Saturation 100% 04/25/2023 9:29 AM LASTING FLOORWORKER Inhaled Oxygen Concentration - - Weight 97.3 kg (214 lb 9.6 oz) 04/25/2023 9:29 A M LASTING FLOORWORKER Height 162.6 cm (5' 4 ) 04/25/2023 9:29 AM LASTING FLOORWORKER Body Mass Index 36.84 04/25/2023 9:29 AM LASTING FLOORWORKER documented in this encounter Progress Notes * Tuyet Torres MA - 04/25/2023 9:20 AM CSTAddended by: TUYET TORRES on: 05/01/2023 10:44 AM Modules accepted: Orders ING FLOORWORKER * Presley Hernandez MD - 04/25/2023 9:20 AM CST Botox treatment cycle number:7 Lot type: Buy and bill Benefits: 80% [...] for repeat injections. Botox treatment cycle number: 2 Lot type: Glaxstar and bill Wastage: 0 Botox Injection Procedure [...] in three months' time for repeat injections. ING FLOORWORKER ING FLOORWORKER documented in this encounter Plan of Treatment Upcoming Encounters Date Type Department Care Team (Late st Contact Info) Description 04/15/2024 1:00 PM LASTING FLOORWORKER Office Visit [facility] - [address], [address] [place] [address] Presley Hernandez MD [address] [place] [address] 04/30/2024 10:40 AM LASTING FLOORWORKER Office Visit [facility] - [address], [address] [place] [address] Presley Hernandez MD [address] [place] [address] Scheduled Orders Name Type Priority Associated Diagnoses Orde r Schedule CHEMODENERVATION MUSCLE NECK UNILAT FOR SYSTONIA Procedures Routine Cervical dystonia Ordered: 04/25/2023 NDL EMG GDN CONJUNCT CHEMODNRVTJ Procedures Routine Cervical dystonia Ordered: 04/25/2023 DEST,NERVE,FACIAL Procedures Routine Hemifacial spasm affecting both sides of face Ordered: 04/25/2023 documented as of this encounter Visit Diagnoses Diagnosis Chronic migraine w/o aura w/o status migrainosus, not intractable- Primary Chronic migraine without aura, without mention of intractable migraine without mention of status migrainosus Cervical dystonia Spasmodic torticollis Hemifacial spasm affecting both sides of face Spasmodic torticollis Trigeminal neuralgia documented in this encounter Administered Medications Inactive Administered Medications - up to 3 most recent administrations Medication Order MAR Action Action Date Dose Rate Site onabotulinumtoxinA (BOTOX) injection 100 Units 100 Units, Intramuscular, Once, 1 dose, On Sat05/01/23 at 1100, * 100 unit vial *Indications:Spasmodic torticollis,Trigeminal neuralgia Given 04/25/2023 9:00 AM LASTING FLOORWORKER 100 Units Other documented in this encounter Care Teams Mixing Machine Tender Cork Rod Relationship Specialty Start Date End Date Deedee Low PA [address] [place] [address] PCP - General PHYSICIAN FISH CLEANER 07/22/20 documented as of this encounter
--- OUTSIDE RECORDS SUMMARY | 2024-02-24 16:58 | XMS_ITS | Encounter Summary ---
Author Organization [facility] Address [address] [place] [address]. [place], [place] [address] [place] [address] Care Team Providers Care Gm Name Role Phone Deedee Low Primary Care Provider [phone] Encounter Details Date Type Department Care Team (Latest Contact Info) Description 07/24/2023 Travel Social History Tobacco Use Types Packs/Day [...] st Contact Info) Description 04/15/2024 1:00 PM SILK SNAPPER Office Visit [facility]pec[facility]ty Care - [facility] [address] [facility], [address] [place] [address] Presley Hernandez MD 3 [place] [address] 04/30/2024 10:40 AM SILK SNAPPER Office Visit [facility]pec[facility] Care - [facility] [address] [facility], [address] [place] [address] Presley Hernandez MD 3 [place] [address] documented as of this encounter Visit Diagnoses Not on filedocumented in this encounter Care Teams Gm Relationship Specialty Start Date End Date Deedee Low PA [address] [facility] [address] [place] [address] PCP - General PHYSICIAN LANDSCAPE PHOTOGRAPHER 07/22/20 documented as of this encounter
--- OUTSIDE RECORDS SUMMARY | 2024-02-24 16:58 | XMS_ITS | Encounter Summary ---
Author Organization [facility] Address [address] [place] [address]. [place], [place] [address] [place] [address] Care Team Providers Care Ukrainian Folk Arts Instructor Name Role Phone Jennifermary Deedee DELMER Primary Care Provider [phone] Encounter Details Date Type Department Care Team (Latest Contact Info) Description 08/07/2022 Travel Social History Tobacco Use Types Packs/Day [...] st Contact Info) Description 04/15/2024 1:00 PM JEWEL GAUGER Office Visit [facility] Multispecialty Care - [address], [address] [place] [address] Presley Hernandez MD 3 [place] [address] 04/30/2024 10:40 AM JEWEL GAUGER Office Visit [facility] Multispecialty Care - [facility] [address] [facility], [address] [place] [address] Presley Hernandez MD [address] [place] [address] documented as of this encounter Visit Diagnoses Not on filedocumented in this encounter Care Teams Ukrainian Folk Arts Instructor Relationship Specialty Start Date End Date Deedee Low PA [address] [place] [address] PCP - General PHYSICIAN LITERACY COACH 07/22/20 documented as of this encounter
--- OUTSIDE RECORDS SUMMARY | 2024-02-24 16:58 | XMS_ITS | Encounter Summary ---
Author Organization [facility] Address [address] [place] [address]. [place], [place] [address] [place] [address] Care Team Providers Care Technical Marketing Consultant Name Role Phone Jennifermary Deedee DEMLER Primary Care Provider [phone] Encounter Details Date Type Department Care Team (Latest Contact Info) Description 05/10/2023 Scan HEALTH INFO SRVCS Scanned, Doc Med [...] st Contact Info) Description 04/15/2024 1:00 PM FUNERAL DIRECTOR'S ASSISTANT Office Visit [facility] Multispecialty Care - [facility] [address] [facility], [address] [place] [phone] Presley Hernandez MD 3 [place] [address] 04/30/2024 10:40 AM FUNERAL DIRECTOR'S ASSISTANT Office Visit [facility] Multispecialty Care - [facility] [address] [facility], [address] [place] [address] Presley Hernandez MD [address] [place] [address] documented as of this encounter Visit Diagnoses Not on filedocumented in this encounter Care Teams Technical Marketing Consultant Relationship Specialty Start Date End Date Deedee Low PA [address] [place] [address] PCP - General PHYSICIAN GENERAL INTERNAL MEDICINE DOCTOR 07/22/20 documented as of this encounter
--- OUTSIDE RECORDS SUMMARY | 2024-02-24 16:58 | XMS_ITS | Encounter Summary ---
Author Organization [facility] Address [address] [place] [address]. [place], [place] [address] [place] [address] Care Team Providers Care Operating Room Surgical Technician Name Role Phone Jennifermary Deedee DELMER Primary Care Provider [phone] Encounter Details Date Type Department Care Team (Latest Contact Info) Description 04/25/2023 Scan HEALTH INFO SRVCS Scanned, Doc Med [...] st Contact Info) Description 04/15/2024 1:00 PM RACKING TECHNICIAN Office Visit [facility] Multispecialty Care - [facility] [address] [facility], [address] [place] [address] Presley Hernandez MD 3 [place] [address] 04/30/2024 10:40 AM RACKING TECHNICIAN Office Visit [facility] Multispecialty Care - [facility] [address] [facility], [address] [place] [address] Presley Hernandez MD 3 [place] [address] documented as of this encounter Visit Diagnoses Not on filedocumented in this encounter Care Teams Operating Room Surgical Technician Relationship Specialty Start Date End Date Deedee Low PA [address] [place] [address] PCP - General PHYSICIAN BUSINESS CENTER REPRESENTATIVE 07/22/20 documented as of this encounter
--- OUTSIDE RECORDS SUMMARY | 2024-02-24 16:58 | XMS_ITS | Encounter Summary ---
Author Organization [facility] Address [address] [place] [address]. [place], [place] [address] [place] [address] Care Team Providers Care Plastic Shaper Name Role Phone Deedee Low Primary Care Provider [phone] Encounter Details Date Type Department Care Team (Latest Contact Info) Description 01/16/2023 Travel Social History Tobacco Use Types Packs/Day [...] st Contact Info) Description 04/15/2024 1:00 PM CYLINDER PRESS OPERATOR HELPER Office Visit [facility] Multispecialty Care - [facility] [address] [facility], [address] [place] [address] Presley Hernandez MD 3 [place] [address] 04/30/2024 10:40 AM CYLINDER PRESS OPERATOR HELPER Office Visit [facility]pec[facility]ty Care - [facility] [address] [facility], [address] [place] [address] Presley Hernandez MD 3 [place] [address] documented as of this encounter Visit Diagnoses Not on filedocumented in this encounter Care Teams Plastic Shaper Relationship Specialty Start Date End Date Deedee Low PA [address] [place] [address] PCP - General PHYSICIAN DIETITIAN CONSULTANT 07/22/20 documented as of this encounter
--- OUTSIDE RECORDS SUMMARY | 2024-02-24 16:58 | XMS_ITS | Encounter Summary ---
Author Organization [facility] Address [address] [place] [address]. [place], [place] [address] [place] [address] Care Team Providers Care Technical Support Engineer Name Role Phone Deedee Low Primary Care Provider [phone] Reason for Referral * Consultation (Routine) - Pending Review Specialty Diagnoses / Procedures Referred By Angelita silva Referred To Contact OTOLARYNGOLOGY Diagnoses Nasal polyp Procedures OFFICE/OUTPATIENT NEW LOW MDM 30-44 MINUTES OFFICE/OUTPT VISIT,NEW,LEVL IV OFFICE/OUTPT VISIT,NEW,LEVL V OFFICE/OUTPT VISIT,EST,LEVL III OFFICE/OUTPT VISIT,EST,LEVL IV OFFICE/OUTPT VISIT,EST,LEVL V Presley Hernandez MD [address] [place] [address] Phone: tel: fax: [facility], [address] [address] Phone: tel: fax: Referral ID Status Reason Start Date Expiration Date V isits Requested Visits Authorized [id number] Pending Review 03/12/2023 03/12/2024 99 99 GER MARITIME * Imaging (Urgent) - Closed Specialty Diagnoses / Procedures Referred By Contac t Referred To Contact RADIOLOGY Diagnoses TIA (transient ischemic attack) Procedures MRI BRAIN WWO CON Presley Hernandez MD 3 [place] [address] Phone: tel: fax: Referral ID Status Reason Start Date Expiration Date Visits Re quested Visits Authorized [id number] Closed 03/12/2023 03/12/2024 1 1 GER MARITIME * Imaging (Urgent) - Closed Specialty Diagnoses / Procedures Referred By Contac t Referred To Contact RADIOLOGY Diagnoses TIA (transient ischemic attack) Procedures MRA NECK WWO CON Presley Hernandez MD 3 [place] [address] Phone: tel: fax: Referral ID Status Reason Start Date Expiration Date Visits Re quested Visits Authorized [id number] Closed 03/12/2023 03/12/2024 1 1 GER MARITIME * Imaging (Urgent) - Closed Specialty Diagnoses / Procedures Referred By Contchicho t Referred To Contact RADIOLOGY Diagnoses TIA (transient ischemic attack) Procedures MRA HEAD WWO CON Presley Hernandez MD [address] [place] [address] Phone: tel: fax: Referral ID Status Reason Start Date Expiration Date Visits Re quested Visits Authorized [id number] Closed 03/12/2023 04/11/2024 1 1 GER MARITIME Reason for Visit * Reason Comments Headache Encounter Details Date Type Department Care Team (Late st Contact Info) Description 03/12/2023 3:40 PM MANAGER MARITIME Office Visit [facility]pec[facility]ty Care - [facility] [address] [facility], [address] [place] [address] Presley Hernandez MD 3 [place] [address] Headache Social History Tobacco Use Types Packs/Day Years [...] Sign Reading Time Taken Comments Blood Pressure 154/115 03/12/2023 3:52 PM MANAGER MARITIME Pulse 87 03/12/2023 3:52 PM MANAGER MARITIME Temperature 36.4 ??C (97.5 ??F) 03/12/2023 3:52 PM CS T Respiratory Rate 16 03/12/2023 3:52 PM MANAGER MARITIME Oxygen Saturation 98% 03/12/2023 3:52 PM MANAGER MARITIME RA Inhaled Oxygen Concentration - - Weight 94.3 kg (208 lb) 03/12/2023 3:52 PM MANAGER MARITIME Height 162.6 cm (5' 4 ) 03/12/2023 3:52 PM MANAGER MARITIME Body Mass Index 35.7 03/12/2023 3:52 PM MANAGER MARITIME documented in this encounter Progress Notes * Presley Hernandez MD - 03/12/2023 3:40 PM CST Chief Complaint: Face numbness HPI: We had the pleasure of seeing Ms. Ruano in the clinic. Since we last saw her, she has a lot episodes of right hemifacial numbness. She also has pain along the mid cheek region on the right side. Shehad gone to the ER. She had no workup done, she was told this is part of migraine and discharged home. She is currently on statin. She does not take an aspirin. She notes that she gets migraine headaches. The migraine headache symptoms are independent of the hemifacial symptoms. Nurtec does help with the migraine headache, and also helps with the hemifacial symptoms unfortunately the symptoms do come back. With Nurtec she is only able to take 1 a day, and she has no abortive therapy available. She is okay to try Ubrelvy as it gives the option of twice a day dosing. Botox is helping her migraines, there are no major side effects. Her blood pressure has been running high. She has been unable to touch base with her primary care, apparently she is leaving. She is her heart doctor recently whodid not comment on her blood pressure being high. She also has nasal polyp and allergy, worse on the right as compared to left. She has not seen ENT in a while. Current Outpatient Medications Medication Sig Dispense Refill [...] Continuous Blood Gluc Sensor (DEXCOM G6 SENSOR) Misc Continuous Blood Gluc Transmit (DEXCOM G6 TRANSMITTER) Mis diazePAM 5 MG tablet Take 1 tablet [...] tablet (50 mg total) by mouth daily. methylPREDNISolone (MEDROL) 4 MG tablet Take 1 tablet (4 mg total) by mouth daily for 7 days. 7 tablet 0 montelukast 10 MG tablet Take 1 tablet (10 mg total) by mouth nightly at bedtime. ondansetron (ZOFRAN ODT) 4 MG disintegrating tablet Take 1 tablet (4 mg total) by mouth every 8 (eight) hours as needed for Nausea. 20 tablet 11 pantoprazole EC (PROTONIX) 40 MG tablet Take 1 tablet (40 mg total) by mouth 2 (two) times daily. propranolol (INDERAL) 20 MG tablet Take 1 tablet by mouth twice daily 120 tablet 0 rimegepant (NURTEC) 75 MG disintegrating tablet Take 1 tablet (75 mg total) by mouth daily as needed for Migraine. 16 tablet 5 rimegepant (NURTEC) 75 MG disintegrating tablet Take 1 tablet (75 mg total) by mouth as needed for Migraine. 16 tablet 11 rimegepant (NURTEC) 75 MG disintegrating tablet Take 1 tablet (75 mg total) by mouth as needed. Maxof 1 tablet (75 mg) in 24 hours. 16 tablet 11 rimegepant (NURTEC) 75 MG disintegrating tablet Take 1 tablet (75 mg total) by mouth as needed. Maxof 1 tablet (75 mg) in 24 hours. 16 tablet 11 rizatriptan (MAXALT) 10 MG tablet Take 1 [...] % topical ointment ubrogepant (UBRELVY) 100 MG tablet Take 1 tablet (100 mg total) by mouth 2 (two) times daily as needed. Max of 2 tablets (200 mg) in 24 hours 16 tablet 11 vitamin D2, ergocalciferol, (DRISDOL) 1.25 mg capsule TAKE 1 CAPSULE BY MOUTH ONCE A WEEK DIRECTED No current facility-administered medications for this visit. Filed Vitals: 03/12/23 1552 BP: (!) 154/115 Pulse: 87 Resp: 16 Temp: 97.5 ??F (36.4 ??C) TempSrc: Temporal SpO2: 98% Weight: 94.3 kg (208 lb) Height: 1.626 m (5' 4 ) Past Medical History: Diagnosis Date Anxiety disorder, unspecified Asthma COVID 06/02/2022 Depression Diabetes mellitus ([facility]/HCC) ([facility]/HCC) GERD (gastroesophageal reflux disease) Hypertension Migraines Past [...] in upper and lower extremities.. Weiss's negative. Impression and Plan: In summary Ms. Ruano has chronic migraine with aura. I will continue Botox injections for migraine. She has also developed hemifacial numbness, and pain worse on the right hemiface. TIA is in the differential. I will do MRI of the brain with and without contrast to rule out any vascular event. I will complete workup by doing MRA of the head with and without contrast and MRI of the neck with and without contrast. I have ordered these MRI scans to be done JOHANNY. However, if her symptoms worsen, Antonella asked her to come to the ER right away. Given her vascular risk factors, I have asked her to take aspirin 81 mg daily, and continue with her atorvastatin. I recommend LDL goal of less than 70 mg/dL, and A1c less than 6.5. Her blood pressure has been running high. Unfortunately she has not beenable to get in touch with her primary care, and her pe manager has not given any feedback on the blood pressure. I suspect some of her symptoms could be coming from the high blood pressure as well.I did note to her that untreated high blood pressure could be responsible for more severe stroke. Antonella asked her to touch base with her PCP and pe manager are in case they are unable to help her,she will contact me at which time I will put referral to a new PCP and a new pe manager here locally. Migraine with aura symptoms are also differential. To help with the symptoms, I given a tapering course of Medrol Dosepak as well. For abortive therapy, she has been using Nurtec. We cannot use triptans because of the vasoconstrictive side effects, and increased risk of stroke and TIA. Unfortunately effects of Nurtec do not last. I will just prescribe her Ubrelvy 100 mg take 1 tablet twice a day as needed 2 hours apart. She also has sinusitis nasal polyp. For this I will refer her to ENT. Itzel call her with results of testing, and see her back in the clinic for Botox for migraine. Time spent: 30 total minutes reviewing records, history that was separately obtained, performing the exam, providing education to the patient/caregiver, ordering medicine and documenting in the medical record. PRESLEY HERNANDEZ MD GER MARITIME documented in this encounter Plan of Treatment Upcoming Encounters Date Type Department Care Team (Late st Contact Info) Description 04/15/2024 1:00 PM MANAGER MARITIME Office Visit [facility] Emergency Department - [facility] [address] [facility], [address] [place] [phone] Presley Hernandez MD 3 [place] [address] 04/30/2024 10:40 AM MANAGER MARITIME Office Visit [facility] Emergency Department - [facility] [address] [facility], [address] [place] [address] Presley Hernandez MD 3 [place] [address] Scheduled Referrals Name Type Priority Associated Diagnoses Orde r Schedule Ambulatory referral to ENT Referral Routine Nasal polyp Ordered: 03/12/2023 documented as of this encounter Results * MRI BRAIN WWO CON (03/19/2023 7:17 PM MANAGER MARITIME) Anatomical Region Laterality Modality Head Magnetic Resonan ce 03/20/2023 7:00 AM MANAGER MARITIME Impressions 03/20/2023 7:04 AM MANAGER MARITIME IMPRESSION: Unremarkable contrast enhanced brain MRI. ??No focal signal abnormality, abnormal enhancement or interval change. Referred By: PRESLEY HERNANDEZ Interpreted By: Jose Garay MD, 03/20/2023 7:00 AM Narrative 03/20/2023 7:04 AM MANAGER MARITIME EXAMINATION:Brain MRI with and without contrast 03/19/2023 [...] MRA NECK WWO CON (03/19/2023 7:10 PM MANAGER MARITIME) Anatomical Region Laterality Modality Neck Magnetic Resonan ce 03/20/2023 7:04 AM MANAGER MARITIME Impressions 03/20/2023 7:07 AM MANAGER MARITIME IMPRESSION: No measurable carotid or vertebral artery stenosis. ??No evidence of aneurysm or dissection within the neck. Referred By: PRESLEY HERNANDEZ Interpreted By: Jose Garay MD, 03/20/2023 7:04 AM Narrative 03/20/2023 7:07 AM MANAGER MARITIME EXAMINATION:Neck MRA with and without contrast 03/19/2023 INDICATION:Facial numbness TECHNIQUE: Noncontrast 3-D xlqk-ol-nryutv and postcontrast coronal 3-D images of the [...] contrast 03/19/2023 INDICATION:Facial numbness TECHNIQUE: Noncontrast 3-D jlcq-hh-yonvag and postcontrast coronal 3-Dimages of the neck [...] By: Jose Garay MD, 03/20/2023 7:04 AM Presley Hernandez MD MRI Final Res ult * MRA HEAD WWO CON (03/19/2023 7:08 PM MANAGER MARITIME) Anatomical Region Laterality Modality Head Magnetic Resonan ce 03/20/2023 7:07 AM MANAGER MARITIME Impressions 03/20/2023 7:18 AM MANAGER MARITIME IMPRESSION: No focal intracranial stenosis, large vessel occlusion or aneurysm. Referred By: PRESLEY HERNANDEZ Interpreted By: Jose Garay MD, 03/20/2023 7:07 AM Narrative 03/20/2023 7:18 AM MANAGER MARITIME EXAMINATION:Brain MRI with and without contrast 03/19/2023 INDICATION:Facial numbness, TIA TECHNIQUE: Noncontrast 3-D lfcb-bi-[id number] and contrast-enhanced MRA images of the head [...] 03/19/2023 INDICATION:Facial numbness, TIA TECHNIQUE: Noncontrast 3-D gmoe-de-[id number] and contrast-enhanced MRA imagesof the head were [...] encounter Visit Diagnoses Diagnosis TIA (transient ischemic attack)- Primary Unspecified transient cerebral ischemia Migraine without aura, not intractable, without status migrainosus Nasal polyp Unspecified nasal polyp TIA (transient ischemic attack) Unspecified transient cerebral ischemia documented in this encounter Care Teams Technical Support Engineer Relationship Specialty Start Date End Date Deedee Low PA [address] [place] [address] PCP - General PHYSICIAN PHARMACIST TECHNICIAN 07/22/20 documented as of this encounter
--- OUTSIDE RECORDS SUMMARY | 2024-02-24 16:58 | XMS_ITS | Encounter Summary ---
Author Organization [facility] Address [address] [place] [address]. [place], [place] [address] [place] [address] Care Team Providers Care Thermite Bomb Loader Name Role Phone Deedee Low Primary Care Provider [phone] Reason for Visit * Reason Comments Botox Botox- cervical dyst onia, neuralgia 100 units * Treatment/Therapy Plan Authorization (Routine) - Closed Specialty Diagnoses / Procedures Referred By Contac t Referred To Contact Diagnoses Chronic migraine without aura without status migrainosus, not intractable Trigeminal neuralgia Spasmodic torticollis Procedures BOTULINUM TOXIN A PER UNIT Presley Hernandez MD [address] [place] [address] Phone: tel: fax: [facility] - [address], [address] [place] [address] Phone: tel: Referral ID Status Reason Start Date Expiration Date Visits Re quested Visits Authorized [id number] Closed 12/14/2022 12/15/2023 8 8 Encounter Details Date Type Department Care Team (Latest Contact Info) Description 01/23/2023 9:40 AM PRODUCT MGR Office Visit [address], [address] [place] [address] Presley Hernandez MD [address] [place] [address] Botox (Botox- cervical dystonia, neuralgia 100 units ) Social History Tobacco Use Types Packs/Day Years [...] Sign Reading Time Taken Comments Blood Pressure 139/90 01/23/2023 9:43 AM PRODUCT MGR Pulse 85 01/23/2023 9:43 AM PRODUCT MGR Temperature 36.9 ??C (98.4 ??F) 01/23/2023 9:43 AM CS T Respiratory Rate - - Oxygen Saturation 99% 01/23/2023 9:43 AM PRODUCT MGR Inhaled Oxygen Concentration - - Weight 98 kg (216 lb) 01/23/2023 9:43 AM PRODUCT MGR Height 162.6 cm (5' 4 ) 01/23/2023 9:43 AM PRODUCT MGR Body Mass Index 37.08 01/23/2023 9:43 AM PRODUCT MGR documented in this encounter Progress Notes * Farideh Martins MA - 01/23/2023 9:40 AM CSTAddended by: FARIDEH MARTINS on: 01/25/2023 08:10 AM Modules accepted: Orders UCT MGR * Presley Hernandez MD - 01/23/2023 9:40 AM CSTAddended by: PRESLEY HERNANDEZ on: 02/05/2023 01:20 PM Modules accepted: Orders UCT MGR * Presley Hernandez MD - 01/23/2023 9:40 AM CST Botox treatment cycle number:6 Lot type: Buy and bill Benefits: 80% [...] in three months' time for repeat injections For her abortive therapy for migraine, I have refilled Nurtec 75 mg ODT take 1 tablet as needed daily. She does have a history of poorly controlled diabetes, poorly controlled hypertension, cardiovascular and several risk of complication. I will thus avoid triptans as noted does not have these complications. UCT MGR UCT MGR documented in this encounter Plan of Treatment Upcoming Encounters Date Type Department Care Team (Late st Contact Info) Description 04/15/2024 1:00 PM PRODUCT MGR Office Visit [facility] Multispecialty Care - [facility] [address] [facility], [address] [place] [address] Presley Hernandez MD 3 [place] [address] 04/30/2024 10:40 AM PRODUCT MGR Office Visit [facility] Multispecialty Care - [facility] [address] [facility], [address] [place] [address] Presley Hernandez MD 3 [place] [address] Scheduled Orders Name Type Priority Associated Diagnoses Orde r Schedule NECK MUSCLE EXCLUDING MUSCLES OF THE LARYNX UNILATERAL Procedures Routine Spasmodic torticollis Ordered: 02/05/2023 NDL EMG GDN CONJUNCT CHEMODNRVTJ Procedures Routine Spasmodic torticollis Ordered: 02/05/2023 documented as of this encounter Visit Diagnoses Diagnosis Migraine without aura, not intractable, without status migrainosus- Primary Chronic migraine w/o aura w/o status migrainosus, not intractable Chronic migraine without aura, without mention of intractable migraine without mention of status migrainosus Spasmodic torticollis Trigeminal neuralgia documented in this encounter Administered Medications Inactive Administered Medications - up to 3 most recent administrations Medication Order MAR Action Action Date Dose Rate Site onabotulinumtoxinA (BOTOX) injection 100 Units 100 Units, Intramuscular, Once, 1 dose, On Sat01/25/23 at 0830, * 100 unit vial *Indications:Spasmodic torticollis,Trigeminal neuralgia Given 01/23/2023 9:40 AM PRODUCT MGR 100 Units Other documented in this encounter Care Teams Thermite Bomb Loader Relationship Specialty Start Date End Date Deedee Low PA [address] [place] [address] PCP - General PHYSICIAN FORENSIC TOXICOLOGIST 07/22/20 documented as of this encounter
--- OUTSIDE RECORDS SUMMARY | 2024-02-24 16:58 | XMS_ITS | Encounter Summary ---
Author Organization [facility] Address [address] [place] [address]. [place], [place] [address] [place] [address] Care Team Providers Care Compliance Monitor Name Role Phone Deedee Low Primary Care Provider Encounter Details Date Type Department Care Team (Latest Contact Info) Description 04/17/2023 Travel Social History Tobacco Use Types Packs/Day [...] st Contact Info) Description 04/15/2024 1:00 PM MACHINIST MECHANIC Office Visit [facility] Multispecialty Care - [facility] [address] [facility], [address] [place] [address] Presley Hernandez MD 3 [place] [address] 04/30/2024 10:40 AM MACHINIST MECHANIC Office Visit [facility] - [facility] [address] [facility], [address] [place] [address] Presley Hernandez MD 3 [place] [address] documented as of this encounter Visit Diagnoses Not on filedocumented in this encounter Care Teams Compliance Monitor Relationship Specialty Start Date End Date Deedee Low PA [address] [facility] [address] [place] [address] PCP - General PHYSICIAN PRODUCTION BORING MACHINE OPERATOR 07/22/20 documented as of this encounter
--- OUTSIDE RECORDS SUMMARY | 2024-02-24 16:58 | XMS_ITS | Encounter Summary ---
Author Organization [facility] Address [address] [place] [address]. [place], [place] [address] [place] [address] Care Team Providers Care Drop Hammer Set Up Operator Name Role Phone Deedee Low Primary Care Provider Encounter Details Date Type Department Care Team (Latest Contact Info) Description 03/12/2023 Travel Social History Tobacco Use Types Packs/Day [...] st Contact Info) Description 04/15/2024 1:00 PM INSEAM TRIMMER Office Visit [facility] Multispecialty Care - [facility] [address] [facility], [address] [place] [address] Presley Hernandez MD 3 [place] [address] 04/30/2024 10:40 AM INSEAM TRIMMER Office Visit [facility] - [facility] [address] [facility], [address] [place] [address] Presley Hernandez MD 3 [place] [address] documented as of this encounter Visit Diagnoses Not on filedocumented in this encounter Care Teams Drop Hammer Set Up Operator Relationship Specialty Start Date End Date Deedee Low PA [address] [facility] [address] [place] [address] PCP - General PHYSICIAN STATION BAGGAGE AGENT 07/22/20 documented as of this encounter
--- OUTSIDE RECORDS SUMMARY | 2024-02-24 16:58 | XMS_ITS | Encounter Summary ---
Author Organization [facility] Address [address] [place] [address]. [place] [address] [place] [address] Care Team Providers Care University Teacher Name Role Phone Maranda Deedee DOWELL Primary Care Provider [phone] Reason for Visit * Reason Onset Date Comments Orders 06/04/2023 Vyepti Encounter Details Date Type Department Care Team (Late st Contact Info) Description 06/04/2023 Telephone [facility] Multispecialty Care - [facility] [address] [facility], [address] [place] [phone] Presley Hernandez MD 3 [place] [address] Orders (Vyepti) Social History Tobacco Use Types Packs/Day Years [...] as of this encounter Progress Notes * Tuyet Torres MA - 06/04/2023 9:41 AM CDT Vyepti Referral form was completed and faxed to [facility] along with 06/03/23 progress note, pt demographics, insurance card. documented in this encounter Plan of Treatment Upcoming Encounters Date Type Department Care Team (Late st Contact Info) Description 04/15/2024 1:00 PM BEADING SAWYER Office Visit [facility] Care - [facility] [address] [facility], [address] [place] [phone] Presley Hernandez MD [address] [place] [address] 04/30/2024 10:40 AM BEADING SAWYER Office Visit [facility] [address] [facility], [address] [place] [phone] Presley Hernandez MD [address] [place] [address] documented as of this encounter Visit Diagnoses Not on filedocumented in this encounter Care Teams University Teacher Relationship Specialty Start Date End Date Deedee Low PA [address] [place] [address] PCP - General PHYSICIAN WHOLESALE MANAGER 07/22/20 documented as of this encounter
--- OUTSIDE RECORDS SUMMARY | 2024-02-24 16:58 | XMS_ITS | Encounter Summary ---
Author Organization [facility] Address [address] [place] [address]. [place] [address] [place] [address] Care Team Providers Care Concrete Inspector Name Role Phone Deedee Low Primary Care Provider [phone] Reason for Visit * Reason Onset Date Comments Results 03/20/2023 Encounter Details Date Type Department Care Team (Late st Contact Info) Description 03/20/2023 Telephone [facility] - [address] [place] [phone] Presley Hernandez MD [address] [place] [address] Results Social History Tobacco Use Types Packs/Day Years [...] as of this encounter Progress Notes * Sandra Watson MA - 03/20/2023 9:45 AM CST Patient reviewed results in my chart RITY RISK ANALYST * Sandra Watson MA - 03/20/2023 9:45 AM CST ----- Message from Presley Hernandez MD sent at 03/20/2023 8:48 AM SECURITY RISK ANALYST ----- Please let patient know MRI of the brain, MR angiogram of the head and neck was normal RITY RISK ANALYST documented in this encounter Plan of Treatment Upcoming Encounters Date Type Department Care Team (Late st Contact Info) Description 04/15/2024 1:00 PM SECURITY RISK ANALYST [facility] [address], [address] [place] [address] Presley Hernandez MD [address] [place] [address] 04/30/2024 10:40 AM SECURITY RISK ANALYST Office Visit [facility] - [address], [address] [place] [address] Presley Hernandez MD [address] [place] [address] documented as of this encounter Visit Diagnoses Not on filedocumented in this encounter Care Teams Concrete Inspector Relationship Specialty Start Date End Date Deedee Low PA [address] [place] [address] PCP - General PHYSICIAN ROBOT DESIGNER 07/22/20 documented as of this encounter
--- OUTSIDE RECORDS SUMMARY | 2024-02-24 16:58 | XMS_ITS | Encounter Summary ---
Author Organization [facility] Address [address] [place] [address]. [place], [place] [address] [place] [address] Care Team Providers Care Livestock Handler Name Role Phone Jennifermary Deedee DELMER Primary Care Provider [phone] Encounter Details Date Type Department Care Team (Latest Contact Info) Description 10/03/2022 GlassBoxt Message Enc [facility] Multispecialty Care - [address], [address] [place] [phone] Presley Hernandez MD [address] [place] [address] [facility] Social History Tobacco Use Types Packs/Day Years [...] as of this encounter Progress Notes * Presley Hernandez MD - 10/04/2022 10:26 AM CDTFrom: Alannah Ruano To: Dr. Presley Hernandez Sent: 10/03/2022 11:36 AM CDT Subject: Nurtec prescription Hello, my prescription and I need a refill. Can I get a new prescription or do I need to schedule an appointment? Thank you! documented in this encounter Plan of Treatment Upcoming Encounters Date Type Department Care Team (Late st Contact Info) Description 04/15/2024 1:00 PM IT ARCHITECT Office Visit [facility] - [address], [address] [place] [address] Presley Hernandez MD [address] [place] [address] 04/30/2024 10:40 AM IT ARCHITECT Office Visit [facility] - [address], [facility] [address] [place] [address] Presley Hernandez MD [address] [place] [address] documented as of this encounter Visit Diagnoses Diagnosis Migraine without aura, not intractable, without status migrainosus- Primary documented in this encounter Care Teams Livestock Handler Relationship Specialty Start Date End Date Deedee Low PA [address] [place] [address] PCP - General PHYSICIAN VIDEO EDITING INTERN 07/22/20 documented as of this encounter
--- OUTSIDE RECORDS SUMMARY | 2024-02-24 16:58 | XMS_ITS | Encounter Summary ---
Author Organization [facility] Address [address] [place] [address]. [place] [address] [place] [address] Care Team Providers Care Yarn Weight And Strength Tester Name Role Phone Jennifermary Deedee DELMER Primary Care Provider [phone] Encounter Details Date Type Department Care Team (Late st Contact Info) Description 03/14/2023 Medication Management [facility] Multispecialty Care - [facility] [address] [facility], [address] [place] [address] Presley Hernandez MD [address] [place] [address] Social History Tobacco Use Types Packs/Day Years [...] Progress Notes * Tuyet Torres MA - 03/14/2023 10:18 AM CST Ubrelvy 100mg prior auth was started through [employer]. Wtg on determination. TRESSED CONCRETE LABORER documented in this encounter Plan of Treatment Upcoming Encounters Date Type Department Care Team (Late st Contact Info) Description 04/15/2024 1:00 PM PRESTRESSED CONCRETE LABORER Office Visit [facility] [address] [facility], [address] [place] [address] Presley Hernandez MD [address] [place] [address] 04/30/2024 10:40 AM PRESTRESSED CONCRETE LABORER Office Visit [facility] [address] [facility], [address] [place] [address] Presley Hernandez MD [address] [place] [address] documented as of this encounter Visit Diagnoses Not on filedocumented in this encounter Care Teams Yarn Weight And Strength Tester Relationship Specialty Start Date End Date Deedee Low PA [address] [place] [address] PCP - General PHYSICIAN CHECK EXAMINER 07/22/20 documented as of this encounter
--- OUTSIDE RECORDS SUMMARY | 2024-02-24 16:58 | XMS_ITS | Encounter Summary ---
Author Organization [facility] Address [address] [place] [address]. [place], [place] [address] [place] [address] Care Team Providers Care Property Field Adjuster Name Role Phone Deedee Low Primary Care Provider Encounter Details Date Type Department Care Team (Latest Contact Info) Description 01/23/2023 Travel Social History Tobacco Use Types Packs/Day [...] st Contact Info) Description 04/15/2024 1:00 PM GUARD MUSEUM Office Visit [facility] Multispecialty Care - [facility] [address] [facility], [address] [place] [address] Presley Hernandez MD 3 [place] [address] 04/30/2024 10:40 AM GUARD MUSEUM Office Visit [facility] Multispecialty Care - [facility] [address] [facility], [address] [place] [address] Presley Hernandez MD [address] [place] [address] documented as of this encounter Visit Diagnoses Not on filedocumented in this encounter Care Teams Property Field Adjuster Relationship Specialty Start Date End Date Deedee Low PA [address] [facility] [address] [place] [address] PCP - General PHYSICIAN MANAGER PAYER 07/22/20 documented as of this encounter
--- OUTSIDE RECORDS SUMMARY | 2024-02-24 16:58 | XMS_ITS | Encounter Summary ---
Author Organization [facility] Address [address] [place] [address]. [place] [address] [place] [address] Care Team Providers Care Diamond Cleaver Name Role Phone JennifermaryDeedee Primary Care Provider [phone] Reason for Visit * Reason Onset Date Comments Fax 08/07/2022 Encounter Details Date Type Department Care Team (Late st Contact Info) Description 08/07/2022 Telephone [facility] [place] [id number] Tania Yang APNP [address] [place] [phone] Fax Social History Tobacco Use Types Packs/Day Years [...] AM CDT documented as of this encounter Progress Notes * Maryjane Casanova RN - 08/07/2022 10:17 AM CDT Order for PT faxed to [facility] at [phone]. documented in this encounter Plan of Treatment Upcoming Encounters Date Type Department Care Team (Late st Contact Info) Description 04/15/2024 1:00 PM HUMAN RESOURCES COORDINATOR Office Visit [facility] [address] [facility], [address] [place] [address] Presley Hernandez MD [address] [place] [address] 04/30/2024 10:40 AM HUMAN RESOURCES COORDINATOR Office Visit [facility] [address] [facility], [address] [place] [address] Presley Hernandez MD [address] [place] [address] documented as of this encounter Visit Diagnoses Not on filedocumented in this encounter Care Teams Diamond Cleaver Relationship Specialty Start Date End Date Deedee Low PA [address] [facility] [address] [place] [address] PCP - General PHYSICIAN QUILL PICKING MACHINE OPERATOR 07/22/20 documented as of this encounter
--- OUTSIDE RECORDS SUMMARY | 2024-02-24 16:58 | XMS_ITS | Encounter Summary ---
Author Organization [facility] Address [address] [place] [address]. [place], [place] [address] [place] [address] Care Team Providers Care Hvac/R Instructor Name Role Phone Jennifermary Deedee DELMER Primary Care Provider Encounter Details Date Type Department Care Team (Latest Contact Info) Description 07/11/2022 Scan HEALTH INFO SRVCS Scanned, Doc Med [...] suspected to have Coronavirus/COVID-19? No / Unsure 07/18/2022 9:14 AM CDT documented as of this encounter Plan of Treatment Upcoming Encounters Date Type Department Care Team (Late st Contact Info) Description 04/15/2024 1:00 PM TEAM ASSEMBLY LINE MACHINE OPERATOR Office Visit [facility] Multispecialty Care - [address], [address] [place] [address] Presley Hernandez MD [address] [place] [address] 04/30/2024 10:40 AM TEAM ASSEMBLY LINE MACHINE OPERATOR Office Visit [facility] Multispecialty Care - [facility] [address] [facility], [address] [place] [address] Presley Hernandez MD 3 [place] [address] documented as of this encounter Visit Diagnoses Not on filedocumented in this encounter Care Teams Hvac/R Instructor Relationship Specialty Start Date End Date Deedee Low PA [address] [place] [address] PCP - General PHYSICIAN TOWER WATCHMAN 07/22/20 documented as of this encounter
--- OUTSIDE RECORDS SUMMARY | 2024-02-24 16:58 | XMS_ITS | Encounter Summary ---
Author Organization [facility] Address [address] [place] [address]. [place], [place] [address] [place] [address] Care Team Providers Care Boilermaker Fitter Name Role Phone Deedee Low Primary Care Provider [phone] Encounter Details Date Type Department Care Team (Latest Contact Info) Description 03/19/2023 Travel Social History Tobacco Use Types Packs/Day [...] st Contact Info) Description 04/15/2024 1:00 PM SANITARIAN AIDE Office Visit [facility] Multispecialty Care - [facility] [address] [facility], [address] [place] [address] Presley Hernandez MD 3 [place] [address] 04/30/2024 10:40 AM SANITARIAN AIDE Office Visit [facility] - [facility] [address] [facility], [address] [place] [address] Presley Hernandez MD [address] [place] [address] documented as of this encounter Visit Diagnoses Not on filedocumented in this encounter Care Teams Boilermaker Fitter Relationship Specialty Start Date End Date Deedee Low PA [address] [facility] [address] [place] [address] PCP - General PHYSICIAN EVAPORATOR OPERATOR 07/22/20 documented as of this encounter
--- OUTSIDE RECORDS SUMMARY | 2024-02-24 16:58 | XMS_ITS | Encounter Summary ---
Author Organization [facility] Address [address] [place] [address]. [place], [place] [address] [place] [address] Care Team Providers Care County Demonstrator Name Role Phone Jennifermary Deedee DELMER Primary Care Provider [phone] Encounter Details Date Type Department Care Team (Latest Contact Info) Description 07/18/2022 Travel Social History Tobacco Use Types Packs/Day [...] st Contact Info) Description 04/15/2024 1:00 PM GRIPPER INSTALLER Office Visit [facility] Group Multispecialty Care - [address], [address] [place] [address] Presley Hernandez MD 3 [place] [address] 04/30/2024 10:40 AM GRIPPER INSTALLER Office Visit [facility] Group Multispecialty Care - [facility] [address] [facility], [address] [place] [address] Presley Hernandez MD [address] [place] [address] documented as of this encounter Visit Diagnoses Not on filedocumented in this encounter Care Teams County Demonstrator Relationship Specialty Start Date End Date Deedee Low PA [address] [place] [address] PCP - General PHYSICIAN COIL MAKER 07/22/20 documented as of this encounter
--- OUTSIDE RECORDS SUMMARY | 2024-02-24 16:58 | XMS_ITS | Encounter Summary ---
Author Organization [facility] Address [address] [place] [address]. [place], [place] [address] [place] [address] Care Team Providers Care Heat Curer Name Role Phone Jennifermary Deedee DOWELL Primary Care Provider [phone] Reason for Visit * Reason Comments Botox botox migraines 155 units * Treatment/Therapy Plan Authorization (Routine) - Closed Specialty Diagnoses / Procedures Referred By Angelita silva Referred To Contact Diagnoses Chronic migraine without aura without status migrainosus, not intractable Trigeminal neuralgia Spasmodic torticollis Procedures BOTULINUM TOXIN A PER UNIT Presley Hernandez MD [address] [place] [address] Phone: tel: fax: [facility] - [address], [address] [place] [address] Phone: tel: Referral ID Status Reason Start Date Expiration Date Visits Re quested Visits Authorized [id number] Closed 12/14/2022 12/15/2023 8 8 Encounter Details Date Type Department Care Team (Latest Contact Info) Description 01/16/2023 1:40 PM ICE CREAM TRUCK DRIVER [facility] - [address], [address] [place] [address] Presley Hernandez MD [address] [place] [address] Botox ( botox migraines 155 units/) Social [...] Sign Reading Time Taken Comments Blood Pressure 145/90 01/16/2023 2:01 PM ICE CREAM TRUCK DRIVER Pulse 80 01/16/2023 2:01 PM ICE CREAM TRUCK DRIVER Temperature 36.7 ??C (98 ??F) 01/16/2023 2:01 PM ICE CREAM TRUCK DRIVER Respiratory Rate 17 01/16/2023 2:01 PM ICE CREAM TRUCK DRIVER Oxygen Saturation 99% 01/16/2023 2:01 PM ICE CREAM TRUCK DRIVER Inhaled Oxygen Concentration - - Weight 97.6 kg (215 lb 3.2 oz) 01/16/2023 2:01 P M ICE CREAM TRUCK DRIVER Height 162.6 cm (5' 4 ) 01/16/2023 2:01 PM ICE CREAM TRUCK DRIVER Body Mass Index 36.94 01/16/2023 2:01 PM ICE CREAM TRUCK DRIVER documented in this encounter Progress Notes * Michelle Meyer RN - 01/16/2023 1:40 PM CSTAddended by: MICHELLE MEYER on: 01/17/2023 03:01 PM Modules accepted: Orders CREAM TRUCK DRIVER * Presley Hernandez MD - 01/16/2023 1:40 PM CSTAddended by: PRESLEY HERNANDEZ on: 01/29/2023 11:00 AM Modules accepted: Orders CREAM TRUCK DRIVER * Presley Hernandez MD - 01/16/2023 1:40 PM CST Botox treatment cycle number: 6 Botox side effect: None Medication effect lasted [...] 155 units at 31 different sites. A. Exchange Engineer : 10 Units divided in 2 sites [...] for. Return to neurology clinic 3 months Nurtec has reduced number of migraine days from 10 days a month to less than 5 days a month. I willthus refill Nurtec 75 mg ODT take 1 tablet as needed for abortive therapy for migraine. CREAM TRUCK DRIVER documented in this encounter Plan of Treatment Upcoming Encounters Date Type Department Care Team (Late st Contact Info) Description 04/15/2024 1:00 PM ICE CREAM TRUCK DRIVER Office Visit [facility] Multispecialty Care - [address], [address] [place], [place] [address] Presley Hernandez MD 3 [place] [address] 04/30/2024 10:40 AM ICE CREAM TRUCK DRIVER Office Visit [facility] Multispecialty Care - [facility] [address] [facility], [address] [place] [address] Presley Hernandez MD [address] [place] [address] Scheduled Orders Name Type Priority Associated Diagnoses Orde r Schedule CHEMODENERVATION MUSCLE INNERVTD, BILAT Procedures Routine Chronic migraine without aura without status migrainosus, not intractable Ordered: 01/29/2023 documented as of this encounter Visit Diagnoses Diagnosis Migraine without aura, not intractable, without status migrainosus- Primary Chronic migraine without aura without status migrainosus, not intractable Chronic migraine without aura, without mention of intractable migraine without mention of status migrainosus documented in this encounter Administered Medications Inactive Administered Medications - up to 3 most recent administrations Medication Order MAR Action Action Date Dose Rate Site botulinum toxin type A (BOTOX) injection 155 Units 155 Units, Intramuscular, Once, 1 dose, On Mariaelena 01/17/23 at 1515, * 200 unit vial *Indications:Chronic migraine without aura without status migrainosus, not intractable Given 01/16/2023 1:40 PM ICE CREAM TRUCK DRIVER 155 Units Other documented in this encounter Care Teams Heat Curer Relationship Specialty Start Date End Date Deedee Low PA [address] [place] [address] PCP - General PHYSICIAN OUTSIDE RIGGER 07/22/20 documented as of this encounter
--- OUTSIDE RECORDS SUMMARY | 2024-02-24 16:58 | XMS_ITS | Encounter Summary ---
Author Organization [facility] Address [address] [place] [address]. [place], [place] [address] [place] [address] Care Team Providers Care Medicaid Service Coordinator Name Role Phone Jennifermary Deedee DELMER Primary Care Provider [phone] Encounter Details Date Type Department Care Team (Latest Contact Info) Description 10/17/2022 Scan HEALTH INFO SRVCS Scanned, Doc Med [...] Contact Info) Description 04/15/2024 1:00 PM SILK BLOCKER Office Visit [facility] Group Multispecialty Care - [facility] 3 [facility], [address] [place] [address] Presley Hernandez MD [address] [place] [address] 04/30/2024 10:40 AM SILK BLOCKER Office Visit [facility] Medical Group Multispecialty Care - [facility] 3 [facility], [address] [place] [address] Presley Hernandez MD 3 [place] [address] documented as of this encounter Visit Diagnoses Not on filedocumented in this encounter Care Teams Medicaid Service Coordinator Relationship Specialty Start Date End Date Deedee Low PA [address] [place] [address] PCP - General PHYSICIAN BETTING CLERKS 07/22/20 documented as of this encounter
--- OUTSIDE RECORDS SUMMARY | 2024-02-24 16:58 | XMS_ITS | Encounter Summary ---
Author Organization [facility] Address [address] [place] [address]. [place], [place] [address] [place] [address] Care Team Providers Care Manager Customs Name Role Phone Deedee Low Primary Care Provider [phone] Reason for Referral * Surgical (Routine) - Pending Review Specialty Diagnoses / Procedures Referred By Angelita silva Referred To Contact HAND SURGERY / ORTHOPAEDICS Diagnoses Bilateral carpal tunnel syndrome Procedures OFFICE/OUTPATIENT NEW LOW MDM 30-44 MINUTES OFFICE/OUTPT VISIT,NEW,LEVL IV OFFICE/OUTPT VISIT,NEW,LEVL V OFFICE/OUTPT VISIT,EST,LEVL III OFFICE/OUTPT VISIT,EST,LEVL IV OFFICE/OUTPT VISIT,EST,LEVL V Presley Hernandez MD [address] [place] [address] Phone: tel: fax: Kalin Coyle MD [address] [place] [address] Phone: tel: fax: Referral ID Status Reason Start Date Expiration Date V isits Requested Visits Authorized [id number] Pending Review 07/08/2023 08/06/2024 99 99 Reason for Visit * Reason Comments EMG Testing BUE*CERVICAL RADICUL OPATHY * Procedure (Routine) - Closed Specialty Diagnoses / Procedures Referred By Angelita t Referred To Contact Diagnoses Radiculopathy, cervical region Procedures NCVS\EMG (Hosp Performed) Presley Hernandez MD [address] [place] [address] Phone: tel: fax: Presley Hernandez MD [address] [place] [address] Phone: tel: fax: Referral ID Status Reason Start Date Expiration Date V isits Requested Visits Authorized [id number] Closed Office Procedure 06/03/2023 06/02/2024 1 1 Encounter Details Date Type Department Care Team (Latest Contact Info) Description 07/05/2023 11:00 AM CDT Office Visit [facility] Multispecialty Care - [address], [address] [place] [address] Presley Hernandez MD [address] [place] [address] EMG Testing (BUE*CERVICAL RADICULOPATHY) Social History Tobacco Use Types Packs/Day Years [...] Progress Notes * Presley Hernandez MD - 07/05/2023 11:00 AM CDTAddended by: PRESLEY HERNANDEZ on: 07/08/2023 12:04 PM Modules accepted: Orders * Presley Hernandez MD - 07/05/2023 11:00 AM CDT EMG documented in this encounter Procedure Notes * Presley Hernandez MD - 07/05/2023 11:00 AM CDTAssociated Order(s): EMG For sensory nerve conduction studies, the amplitude is measured pyzg-ri-[id number], the latency reported is the distal peak latency, and the conduction velocity, if measured, is determined from onset latencies and is over the forearm. For motor nerve conduction studies, the amplitude is measured [id number], the latency reported is the distal onset [...] mononeuropathy at the wrist [carpal tunnel syndrome]. There is no evidence of a superimposed cervical radiculopathy. documented in this encounter Plan of Treatment Upcoming Encounters Date Type Department Care Team (Late st Contact Info) Description 04/15/2024 1:00 PM ROUNDER HAND Office Visit [facility] [address] [facility], [address] [place] [address] Persley Hernandez MD 3 [place] [address] 04/30/2024 10:40 AM ROUNDER HAND [facility] [address] [facility], [address] [place] [phone] Presley Hernandez MD [address] [place] [address] Scheduled Orders Name Type Priority Associated Diagnoses Orde r Schedule NERVE CONDUCTION, 13+ STUDIES Procedures Routine Radiculopathy, cervical region Ordered: 07/07/2023 COMPLETE FIVE OR MORE MUSCLES STUDIED INNERVATED Procedures Routine Radiculopathy, cervical region Ordered: 07/07/2023 Scheduled Referrals Name Type Priority Associated Diagnoses Orde r Schedule Ambulatory referral to Hand Surgery Referral Routine Bilateral carpal tunnel syndrome Ordered: 07/08/2023 documented as of this encounter Procedures Procedure Name Priority Date/Time Associated Diagnosis Comments EMG Routine 07/05/2023 11:00 AM CDT Radiculopathy, cervical region documented in this encounter Results * NCVS\EMG (Hosp Performed) (07/05/2023 11:00 AM CDT) Narrative [facility] - 07/05/2023 11:00 AM CDT Presley Hernandez MD ? 07/07/2023 ??3:07 PM For sensory nerve conduction studies, the amplitude is measured [id number], the latency reported is the distal peak latency, and the conduction velocity, if measured, is determined from onset latencies and is over the forearm. For motor nerve conduction studies, the amplitude is measured [id number]-[id number], the latency reported is the distal onset [...] us Presley Hernandez MD NEUROLOGY ORDERABLES Sarah rees Result [facility] [address] [place] [address], documented in this encounter Visit Diagnoses Diagnosis Bilateral carpal tunnel syndrome- Primary Carpal tunnel syndrome Radiculopathy, cervical region Brachial neuritis or radiculitis nos documented in this encounter Care Teams Manager Customs Relationship Specialty Start Date End Date Deedee Low PA [address] [place] [address] PCP - General PHYSICIAN STUDIO TECHNICIAN VIDEO OPERATOR 07/22/20 documented as of this encounter
--- OUTSIDE RECORDS SUMMARY | 2024-02-24 16:58 | XMS_ITS | Encounter Summary ---
Author Organization [facility] Address [address] [place] [address]. [place], [place] [address] [place] [address] Care Team Providers Care Psychologist Clinical Name Role Phone Deedee Low Primary Care Provider [phone] Reason for Visit * Reason Comments Botox * Treatment/Therapy Plan Authorization (Routine) - Closed Specialty Diagnoses / Procedures Referred By Angelita silva Referred To Contact Diagnoses Chronic migraine without aura without status migrainosus, not intractable Trigeminal neuralgia Spasmodic torticollis Procedures BOTULINUM TOXIN A PER UNIT Presley Hernandez MD [address] [place] [address] Phone: tel: fax: [facility] - [address], [address] [place] [address] Phone: tel: Referral ID Status Reason Start Date Expiration Date Visits Re quested Visits Authorized [id number] Closed 12/14/2022 12/15/2023 8 8 Encounter Details Date Type Department Care Team (Late st Contact Info) Description 08/08/2023 9:40 AM CDT Office Visit [address], [address] [place] [address] Presley Hernandez MD [address] [place] [address] Botox Social History Tobacco Use Types Packs/Day [...] Sign Reading Time Taken Comments Blood Pressure 131/84 08/08/2023 10:02 AM CDT Pulse 81 08/08/2023 10:02 AM CDT Temperature 36.3 ??C (97.3 ??F) 08/08/2023 10:02 AM C DT Respiratory Rate - - Oxygen Saturation 98% 08/08/2023 10:02 AM CDT Inhaled Oxygen Concentration - - Weight 98.9 kg (218 lb) 08/08/2023 10:02 AM CDT Height 162.6 cm (5' 4 ) 08/08/2023 10:02 AM CDT Body Mass Index 37.42 08/08/2023 10:02 AM CDT documented in this encounter Progress Notes * Amada Schuster MA - 08/08/2023 9:40 AM CDTAddended by: AMADA SCHUSTER on: 08/09/2023 09:06 AM Modules accepted: Orders * Presley Hernandez MD - 08/08/2023 9:40 AM CDT Botox treatment cycle number:8 Lot type: Buy and bill Benefits: 80% [...] Contact Info) Description 04/15/2024 1:00 PM MANAGER METROLOGY Office Visit [facility] Mult[facility]pecialty Care - [facility] [address] [facility], [address] [place] [address] Presley Hernandez MD 3 [place] [address] 04/30/2024 10:40 AM MANAGER METROLOGY Office Visit [facility] Mult[facility] - [facility] [address] [facility], [address] [place] [address] Presley Hernandez MD 3 [place] [address] Scheduled Orders Name Type Priority Associated Diagnoses Orde r Schedule CHEMODENERVATION MUSCLE NECK UNILAT FOR SYSTONIA Procedures Routine Cervical dystonia Ordered: 08/08/2023 NDL EMG GDN CONJUNCT CHEMODNRVTJ Procedures Routine Cervical dystonia Ordered: 08/08/2023 DEST,NERVE,FACIAL Procedures Routine Blepharospasm Ordered: 08/08/2023 documented as of this encounter Visit Diagnoses Diagnosis Cervical dystonia- Primary Spasmodic torticollis Blepharospasm Spasmodic torticollis Trigeminal neuralgia documented in this encounter Administered Medications Inactive Administered Medications - up to 3 most recent administrations Medication Order MAR Action Action Date Dose Rate Site onabotulinumtoxinA (BOTOX) injection 100 Units 100 Units, Intramuscular, Once, 1 dose, On Sat08/09/23 at 0930, * 100 unit vial *Indications:Spasmodic torticollis,Trigeminal neuralgia Given 08/08/2023 9:40 AM CDT 100 Units Other documented in this encounter Care Teams Psychologist Clinical Relationship Specialty Start Date End Date Deedee Low PA [address] [place] [address] PCP - General PHYSICIAN TELECOMMUNICATIONS LINE INSTALLER 07/22/20 documented as of this encounter
--- OUTSIDE RECORDS SUMMARY | 2024-02-24 16:58 | XMS_ITS | Encounter Summary ---
Author Organization [facility] Address [address] [place] [address]. [place] [address] [place] [address] Care Team Providers Care Warehouse Representative Name Role Phone Deedee Low Primary Care Provider [phone] Reason for Visit * Reason Onset Date Comments Prior Authorization 01/10/2023 Encounter Details Date Type Department Care Team (Late st Contact Info) Description 01/10/2023 Telephone [facility] - [place] [phone] [facility] [address] [place] [address] Presley Hernandez MD [address] [place] [address] Prior Authorization Social History Tobacco Use Types [...] as of this encounter Progress Notes * Michelle Begum RN - 01/10/2023 9:35 AM CDT Returned call to patient. Her botox is not authorized at this time. Patient voiced understanding. * Iris Sinclair - 01/10/2023 9:29 AM CDT Pt called today with some questions about her prior auth for Botox,Please call to discuss documented in this encounter Plan of Treatment Upcoming Encounters Date Type Department Care Team (Late st Contact Info) Description 04/15/2024 1:00 PM SENIOR CONSTRUCTION MANAGER [facility] [address], [address] [place] [address] Presley Hernandez MD [address] [place] [address] 04/30/2024 10:40 AM SENIOR CONSTRUCTION MANAGER [facility] [address] [facility], [address] [place] [address] Presley Hernandez MD [address] [place] [address] documented as of this encounter Visit Diagnoses Not on filedocumented in this encounter Care Teams Warehouse Representative Relationship Specialty Start Date End Date Deedee Low PA [address] [place] [address] PCP - General PHYSICIAN SPECIALTY MANUFACTURING SUPERVISOR 07/22/20 documented as of this encounter
--- OUTSIDE RECORDS SUMMARY | 2024-02-24 16:58 | XMS_ITS | Encounter Summary ---
Author Organization [facility] Address [address] [place] [address]. [place], [place] [address] [place] [address] Care Team Providers Care Stock Counter Name Role Phone Jennifermary Deedee DOWELL Primary Care Provider [phone] Reason for Visit * Reason Comments Botox Procedure Chronic migraines * Treatment/Therapy Plan Authorization (Routine) - Closed Specialty Diagnoses / Procedures Referred By Angelita silva Referred To Contact Diagnoses Chronic migraine without aura without status migrainosus, not intractable Trigeminal neuralgia Spasmodic torticollis Procedures BOTULINUM TOXIN A PER UNIT Presley Hernandez MD [address] [place] [address] Phone: tel: fax: [facility] - [address], [address] [place] [address] Phone: tel: Referral ID Status Reason Start Date Expiration Date Visits Re quested Visits Authorized [id number] Closed 12/14/2022 12/15/2023 8 8 Encounter Details Date Type Department Care Team (Latest Contact Info) Description 07/24/2023 3:40 PM CDT [facility] - [address], [address] [place] [address] Presley Hernandez MD [address] [place] [address] Botox Procedure (Chronic migraines) Social History Tobacco Use Types Packs/Day Years [...] Sign Reading Time Taken Comments Blood Pressure 144/92 07/24/2023 3:55 PM CDT Pulse 96 07/24/2023 3:55 PM CDT Temperature 36.8 ??C (98.2 ??F) 07/24/2023 3:55 PM CD T Respiratory Rate 18 07/24/2023 3:55 PM CDT Oxygen Saturation 99% 07/24/2023 3:55 PM CDT Inhaled Oxygen Concentration - - Weight 100.2 kg (221 lb) 07/24/2023 3:55 PM CDT Height 162.6 cm (5' 4 ) 07/24/2023 3:55 PM CDT Body Mass Index 37.93 07/24/2023 3:55 PM CDT documented in this encounter Progress Notes * Amada Schuster MA - 07/24/2023 3:40 PM CDTAddended by: AMADA SCHUSTER on: 07/26/2023 01:36 PM Modules accepted: Orders * Presley Hernandez MD - 07/24/2023 3:40 PM CDT Botox treatment cycle number: 10 Botox side effect: None Medication effect lasted [...] 155 units at 31 different sites. A. Extrusion Former : 10 Units divided in 2 sites [...] for. Return to neurology clinic 3 months Chief Complaint: migraine HPI: We had the pleasure of seeing Ms. Ruano in the clinic. Since I last saw her, she notes that Botox has been helping her migraine. But she still has 15 migraine headache days a month. She is also on Botox for cervical dystonia which is helping her. She is following up with hand specialist. She is going to follow-up with pain specialist as well. She wants to try IV Vyepti to help with migraines. Review of Systems Gen: denies recent fever Eyes: denies double vision ENT: denies epistaxis Pulm: denies shortness of breath Cardiac: denies Chest pain Musc:denies back pain Heme: denies easy bruising Neuro: [...] Continuous Blood Gluc Transmit (DEXCOM G6 TRANSMITTER) Misc diazePAM 5 MG tablet Take 1 tablet [...] NOSTRIL ONCE DIRECTED FOR LOW BLOOD SUGAR hydroCHLOROthiazide (MICROZIDE) 12.5 MG capsule Take 1 capsule (12.5 mg total) by mouth daily. insulin aspart 100 UNIT/ML injection (PEN) Inject [...] total) by mouth 2 (two) times daily. phentermine (ADIPEX-P) 37.5 MG tablet Take 1 tablet (37.5 mg total) by mouth before breakfast. propranolol (INDERAL) 20 MG tablet Take 1 tablet by mouth twice daily 120 tablet 0 RHOFADE 1 % Cream rimegepant (NURTEC) 75 MG disintegrating tablet Take 1 tablet (75 mg total) by mouth as needed. Maxof 1 tablet (75 mg) in 24 hours. 16 tablet 11 topiramate (TOPAMAX) 200 MG tablet Take 1 [...] facility-administered medications for this visit. Filed Vitals: 07/24/23 1555 BP: (!) 144/92 Pulse: 96 Resp: 18 Temp: 98.2 ??F (36.8 ??C) TempSrc: Temporal SpO2: 99% Weight: 100.2 kg (221 lb) Height: 1.626 m (5' 4 ) Past Medical History: Diagnosis Date Anxiety disorder, unspecified Asthma ([facility]) COVID 06/02/2022 Depression Diabetes mellitus ([facility]) GERD (gastroesophageal reflux disease) Hypertension Migraines Past [...] use: Yes Comment: marijuana cream on elbow MENTAL STATUS: Patient was alert, awake and oriented x3, regards and follows commands. Normal language. CRANIAL NERVES: II: Pupils were equal, round and reactive to light and accommodation. III, IV, : normal extraocular movements VII: face was symmetric. IX-X: palate elevates at midline. XI: normal symmetric shoulder shrug. XII: tongue was midline and strong. No fasciculations. MOTOR: Normal strength 5/5 on MRC scale in the upper and lower extremities. Normal muscle tone. COORDINATION: Absent dysmetria on finger -nose -finger. No tremor. GAIT: Normal stride and base. REFLEXES: Normal 2+/4 in upper and lower extremities. Weiss's negative. Impression and Plan: In summary Ms. Ruano has chronic migraine with aura not in status migrainosus not intractable. Shehas been on gabapentin, Cymbalta, Topamax, metoprolol, Aimovig, without much benefit. With Botox, number of migraine headaches has come down from 30 days a month to 15 days a month. For chronic migraine, I will do IV Vyepti infusions every 3 months. Time spent: 20 total minutes reviewing records, history that was separately obtained, performing the exam, providing education to the patient/caregiver, ordering medicine and documenting in the medical record. PRESLEY HERNANDEZ MD documented in this encounter Plan of Treatment Upcoming Encounters Date Type Department Care Team (Late st Contact Info) Description 04/15/2024 1:00 PM ACTIVITIES AIDE [facility] [address], [address] [place] [address] Presley Hernandez MD [address] [place] [address] 04/30/2024 10:40 AM ACTIVITIES AIDE [facility] [address], [address] [place] [address] Presley Hernandez MD [address] [place] [address] Scheduled Orders Name Type Priority Associated Diagnoses Orde r Schedule CHEMODENERVATION MUSCLE INNERVTD, BILAT Procedures Routine Chronic migraine w/o aura w/o status migrainosus, not intractable Ordered: 07/24/2023 documented as of this encounter Visit Diagnoses Diagnosis Chronic migraine w/o aura w/o status migrainosus, not intractable- Primary Chronic migraine without aura, without mention of intractable migraine without mention of status migrainosus Chronic migraine without aura without status migrainosus, not intractable Chronic migraine without aura, without mention of intractable migraine without mention of status migrainosus documented in this encounter Administered Medications Inactive Administered Medications - up to 3 most recent administrations Medication Order MAR Action Action Date Dose Rate Site botulinum toxin type A (BOTOX) injection 155 Units 155 Units, Intramuscular, Once, 1 dose, On Sat07/26/23 at 1345, * 200 unit vial *Indications:Chronic migraine without aura without status migrainosus, not intractable Given 07/24/2023 3:40 AM CDT 155 Units Other documented in this encounter Care Teams Stock Counter Relationship Specialty Start Date End Date Deedee Low PA [address] [place] [address] PCP - General PHYSICIAN MOLD WORKER 07/22/20 documented as of this encounter
--- OUTSIDE RECORDS SUMMARY | 2024-02-24 16:58 | XMS_ITS | Encounter Summary ---
Author Organization [facility] Address [address] [place] [address]. [place] [address] [place] [address] Care Team Providers Care Topper Packer Name Role Phone Deedee Low Primary Care Provider [phone] Reason for Visit * Reason Onset Date Comments Referral 07/12/2023 Encounter Details Date Type Department Care Team (Late st Contact Info) Description 07/12/2023 Telephone [facility] Orthopedic & [facility] Medicine - [place] [address] [place], [place] [address] [phone] Kalin Coyle MD [address] [place] [address] Referral Social History Tobacco Use Types Packs/Day Years [...] as of this encounter Progress Notes * Lali Zapata RN - 07/12/2023 2:38 PM CDT Called pt from referral no answer left message to call back. When pt calls back we will schedule with flakita. documented in this encounter Plan of Treatment Upcoming Encounters Date Type Department Care Team (Late st Contact Info) Description 04/15/2024 1:00 PM LEAVE SPECIALIST Office Visit [facility] [address] [facility], [address] [place] [address] Presley Hernandez MD [address] [place] [address] 04/30/2024 10:40 AM LEAVE SPECIALIST Office Visit [facility] [address] [facility], [address] [place] [address] Presley Hernandez MD [address] [place] [address] documented as of this encounter Visit Diagnoses Not on filedocumented in this encounter Care Teams Topper Packer Relationship Specialty Start Date End Date Deedee Low PA [address] [place] [address] PCP - General PHYSICIAN BREED TO WEAN PRODUCTION TECHNICIAN 07/22/20 documented as of this encounter
--- OUTSIDE RECORDS SUMMARY | 2024-02-24 16:58 | XMS_ITS | Encounter Summary ---
Author Organization [facility] Address [address] [place] [address]. [place], [place] [address] [place] [address] Care Team Providers Care Refractory Grinder Operator Name Role Phone Jennifermary Deedee DOWELL Primary Care Provider Encounter Details Date Type Department Care Team (Latest Contact Info) Description 10/05/2022 Travel Social History Tobacco Use Types Packs/Day [...] st Contact Info) Description 04/15/2024 1:00 PM HEALTH SAFETY COORDINATOR Office Visit [facility] - [address], [address] [place] [address] Presley Hernandez MD [address] [place] [address] 04/30/2024 10:40 AM HEALTH SAFETY COORDINATOR [facility] [address] [place] [address] Presley Hernandez MD [address] [place] [address] documented as of this encounter Visit Diagnoses Not on filedocumented in this encounter Care Teams Refractory Grinder Operator Relationship Specialty Start Date End Date Deedee Low PA [address] [facility] [address] [place] [address] PCP - General PHYSICIAN INDUSTRIAL RELATIONS COMMISSIONER 07/22/20 documented as of this encounter
--- OUTSIDE RECORDS SUMMARY | 2024-02-24 16:58 | XMS_ITS | Encounter Summary ---
Author Organization [facility] Address [address] [place] [address]. [place], [place] [address] [place] [address] Care Team Providers Care Appetizer Packer Name Role Phone Deedee Low Primary Care Provider [phone] Encounter Details Date Type Department Care Team (Latest Contact Info) Description 07/05/2023 Travel Social History Tobacco Use Types Packs/Day [...] st Contact Info) Description 04/15/2024 1:00 PM GLUE SPRAYER Office Visit [facility] - [facility] [address] [facility], [address] [place] [address] Presley Hernandez MD 3 [place] [address] 04/30/2024 10:40 AM GLUE SPRAYER Office Visit [facility] - [facility] [address] [facility], [address] [place] [address] Presley Hernandez MD [address] [place] [address] documented as of this encounter Visit Diagnoses Not on filedocumented in this encounter Care Teams Appetizer Packer Relationship Specialty Start Date End Date Deedee Low PA [address] [facility] [address] [place] [address] PCP - General PHYSICIAN BAR POINTER 07/22/20 documented as of this encounter
--- OUTSIDE RECORDS SUMMARY | 2024-02-24 16:58 | XMS_ITS | Encounter Summary ---
Author Organization [facility] Address [address] [place] [address]. [place], [place] [address] [place] [address] Care Team Providers Care Pulverizer Name Role Phone Deedee Low Primary Care Provider [phone] Reason for Referral * Physical Medicine (Routine) - Closed Specialty Diagnoses / Procedures Referred By Contac t Referred To Contact PHYSICAL THERAPY Diagnoses Lumbar radiculopathy Procedures OFFICE/OUTPT VISIT,NEW,LEVL III OFFICE/OUTPT VISIT,NEW,LEVL IV OFFICE/OUTPT VISIT,NEW,LEVL V OFFICE/OUTPT VISIT,EST,LEVL III OFFICE/OUTPT VISIT,EST,LEVL IV OFFICE/OUTPT VISIT,EST,LEVL V Tania Yang APNP Phone: tel: fax: Referral ID Status Reason Start Date Expiration Date V isits Requested Visits Authorized [id number] Closed Physical Therapy 08/07/2022 08/08/2023 1 1 Reason for Visit * Consultation/Treatment (Routine) - Closed Specialty Diagnoses / Procedures Referred By Contact Referred To Contact PAIN MANAGEMENT / [facility] Pain Management Diagnoses Lumbosacral radiculopathy Procedures OFFICE/OUTPT VISIT,NEW,LEVL III OFFICE/OUTPT VISIT,NEW,LEVL IV OFFICE/OUTPT VISIT,NEW,LEVL V OFFICE/OUTPT VISIT,EST,LEVL III OFFICE/OUTPT VISIT,EST,LEVL IV OFFICE/OUTPT VISIT,LASHAUNLEVL V Presley Hernandez MD [address] [place] [address] Phone: tel:[phone] fax:[phone] [facility] [place] [address] Phone: tel: [phone] Referral ID Status Reason Start Date Expiration Date V isits Requested Visits Authorized [id number] Closed Specialty Services 10/25/2021 11/25/2022 10 10 Encounter Details Date Type Department Care Team (Latest Contact Info) Description 08/07/2022 7:11 AM CDT - 08/07/2022 11:59 PM CDT Hospital Encounter [facility] [place], [place] [id number] Tania Yang APNP [address] [place] [phone] Discharge Disposition: Home or Self Care (Routine [...] Sign Reading Time Taken Comments Blood Pressure 131/86 08/07/2022 7:22 AM CDT Pulse 79 08/07/2022 7:22 AM CDT Temperature 35.8 ??C (96.4 ??F) 08/07/2022 7:22 AM CD T Respiratory Rate 18 08/07/2022 7:22 AM CDT Oxygen Saturation 100% 08/07/2022 7:22 AM CDT Inhaled Oxygen Concentration - - Weight 95.8 kg (211 lb 3.2 oz) 08/07/2022 7:22 A M CDT Height 162.6 cm (5' 4 ) 08/07/2022 7:22 AM CDT Body Mass Index 36.25 08/07/2022 7:22 AM CDT documented in this encounter Medications at Time [...] Continuous Blood Gluc Sensor (DEXCOM G6 SENSOR) [facility] 2 Continuous Blood Gluc Transmit (DEXCOM G6 TRANSMITTER) [facility] 2 diazePAM 5 MG tablet Take 1 [...] total) by mouth 2 (two) times daily. topiramate (TOPAMAX) 200 MG tabletIndications:M S (multiple sclerosis) (CMS/HCC HHS/HCC),Migraine [...] carBAMazepine 200 MG tabletIndications:M S (multiple sclerosis) (CMS/HCC HHS/HCC),Migraine [...] Nausea. 20 tablet 11 2 09/09/19 24 OZEMPIC, 0.25 OR 0.5 MG/DOSE, 2 MG/3ML injection (PEN) Ozempic 0.25 mg or 0.5 mg (2 mg/3 mL) subcutaneous pen injector 10/06/19 23 phentermine (ADIPEX-P) 37.5 MG tablet 2 10/06/19 23 propranolol (INDERAL) 20 MG tabletIndications:M S (multiple sclerosis) ([facility] HHS/HCC),Migraine without aura, not intractable, without status migrainosus Take 1 tablet by mouth twice daily 120 tablet 3 08/18/19 23 rimegepant (NURTEC) 75 MG disintegrating tabletIndications:M igraine without aura, not intractable, without status migrainosus Take 1 tablet (75 mg total) by mouth daily as needed for Migraine. 16 tablet 2 07/24/19 24 rizatriptan (MAXALT) 10 MG tabletIndications:M S (multiple sclerosis) ([facility] HHS/HCC),Migraine without aura, not intractable, without status migrainosus Take 1 tablet (10 mg total) by mouth as needed for Migraine. May repeat in 2 hours if needed 16 tablet 2 07/24/19 24 documented as of this encounter H&P Notes * Tania Yang, NICO - 08/07/2022 8:00 AM CDTSummary: Neck pain that radiates across her shoulders and down her arms to her hands Interventional Pain Management History & Physical Chief Complaint: Neck pain that radiates across her shoulders and down her arms to her hands with a zapping sensation to all fingers of both hands HPI: Alannah Ruano is a right hand dominant 42-year-old female who has is seen today for reevaluation of neck pain. She is status post C5-6 cervical epidural steroid injection on 01/18/2022, reports 80% improvement that lasted for 3-1/2 months following the procedure. She began to notice return of pain, denies trauma. She underwent bilateral L5-S1 lumbar transforaminal epidural steroid injection completed by Dr. Weston on 07/02/2022, and states she experienced 90% improvement of the pain/burning sensation to her lateral feet, and 50% improvement of the low back pain. She says she no longer experiences significant pain to her feet with ambulation. She denies urinary or bowel incontinence, de nies anesthesia to the saddle region. Her chief complaint today is the neck pain, which she rates a6 on a 0-to-10 scale. She said the neck pain and pain to the posterior shoulders is constant, but that she experiences intermittent zapping sensation down her arms into all digits of her hands. Shesays she notices this particularly when she extends her arms. She said that opening things is impossible , she does use devices at home to open jars, and lift lives from jars and cans. She says she also has a specialty can e commerce manager that is attached to one of her cabinets. She does mention she continues to receive Botox injections completed by Dr. Hernandez. She said that she uses Tylenol, applic ation of ice and heat for pain relief. Past medications include Heath and Toradol. Past Medical History: Diagnosis Date Anxiety disorder, unspecified Asthma COVID 06/02/2022 Depression Diabetes mellitus ([facility]) GERD (gastroesophageal reflux disease) Hypertension Migraines Past Surgical History: Procedure Laterality Date ADENOIDECTOMY GASTRIC SLEEVE PROCEDURE--P 2020 REVISE ULNAR NERVE AT ELBOW Left SINUS SURGERY PROC UNLISTED TONSILLECTOMY (Not in a hospital admission) Allergies Allergen Reactions Mushroom Extract Complex Anaphylaxis Pecans Anaphylaxis Social History Socioeconomic History Marital status: Single [...] on file Housing Stability: Not on file No family history on file. Review of Systems Constitutional: Negative. HENT: Negative. Eyes: Negative. Respiratory: Negative. Cardiovascular: Negative. Gastrointestinal: Negative. Denies incontinence of bowels Endocrine: Negative. Genitourinary: Negative. Denies urinary incontinence Musculoskeletal: Neck pain that radiates across her shoulders and down her arms to her hands with a zapping sensation to all fingers of both hands. Low back pain. Skin: Negative. Allergic/Immunologic: Negative. Neurological: She reports a zapping sensation to all fingers of both hands Hematological: Negative. Psychiatric/Behavioral: Negative. Filed Vitals: 08/07/22 0722 BP: 131/86 Pulse: 79 Resp: 18 Temp: 96.4 ??F (35.8 ??C) TempSrc: Skin SpO2: 100% Weight: 95.8 kg (211 lb 3.2 oz) Height: 5' 4 (1.626 m) Diagnostic Workup: She had a cervical MRI completed on 10/25/2021. The radiologist report was reviewed and is copied below: Findings: There is straightening of the normal [...] Mild multilevel cervical spondylosis, as described above. Ordered By: PRESLEY HERNANDEZ Interpreted By: Ciaran Franco MD, 10/25/2021 11:46 AM Physical Exam Body mass index is 36.25 kg/m??. The patient is alert and oriented x 3, and follows directions and answers questions appropriately. Skin is warm and dry. Mood and affect: Calm, pleasant, and cooperative. General examination of her heart lungs and abdomen was unremarkable. No scarring, redness, discoloration or sign of infection noted to the cervical region or shoulders. No pain to direct palpation of the cervical spine. Tenderness and muscle shortening is noted palpation of the cervical paraspinous, as well as across trapezius muscles. No pain to palpation of the cervical facets. No pain to palpation of the clavicals, scapulae, or shoulder joint lines bilaterally. Range of motion of her neck is limited with extension, forward flexion, left lateral rotation, right lateral rotation. Negative Weiss's sign. No cervical adenopathy noted to palpation. Range of motion of the upper extremities is within normal limits with abduction, reaching posteriorly toward the cervical and thoracic spine, with elbow flexion extension. Motor strength to the upper extremities is 5/5 with shoulder shrug, abduction, elbow extension and flexion, lift off test, vault worker and finger abduction. No color changes,redness, warmth, edema is present to the upper extremities. Triceps, biceps, and brachiaradialis reflexes are 2/4 bilaterally. Sensation to palpation of the upper extremities is equal and intact bilaterally. Radial pulses are +2 bilaterally. Capillary refill of the upper extremities is less than 3 seconds bilaterally. Impression: Cervical radiculopathy Recommendations: I spent 30 minutes today reviewing the patient's medical record, obtaining history, performing an exam, ordering medications, tests, and/or procedures, documenting in the medical record, referring and/or communicating with other health care providers, counseling and educating the patient, reviewingand communicating test results, and coordinating care. She has been experiencing neck with a zapping sensation to all fingers of both hands. pain that radiates across her shoulders and down her arms to her hands . We discussed a C5-6 cervical epidural steroid injection as a treatment option. The procedure was described in detail as were the benefits and risks[; risks including, but not limited to infection, permanent neurological deficit due to nerve root injury, bleeding, anaphylaxis, flushing, elevations in blood glucose levels, increased urinary frequency, cerebral spinal fluid leak, paralysis, spinal cord injury, thinning of the skin, thinning of the bones, muscle cramping were discussed, and patient verbalized understanding. She is agreeable to a plan to move forward with the cervical epidural steroid injection injection procedure, which will be completed by Dr. Weston at her next office visit. I did place referral for aqua therapy for continued low back pain, which will be forwarded to [facility] in [place], [place], and she is agreeable. It was my pleasure to participate in her care. Thank you for referring this very pleasant patient. NICO BLANDON CC: Presley Hernandez MD Cosigned by Lidia Weston MD at 08/07/2022 10:30 AM CDT documented in this encounter Plan of Treatment Upcoming Encounters Date Type Department Care Team (Late st Contact Info) Description 04/15/2024 1:00 PM LABORATORY ANIMAL FACILITY SUPERVISOR [facility] [address] [facility], [address] [place] [phone] Presley Hernandez MD [address] [place] [address] 04/30/2024 10:40 AM LABORATORY ANIMAL FACILITY SUPERVISOR Office Visit [facility] [address] [facility], [address] [place] [address] Presley Hernandez MD [address] [place] [address] Scheduled Referrals Name Type Priority Associated Diagnoses Orde r Schedule Ambulatory referral to Physical Therapy Referral Routine Lumbar radiculopathy Ordered: 08/07/2022 documented as of this encounter Visit Diagnoses Diagnosis Lumbar radiculopathy- Primary Thoracic or lumbosacral neuritis or radiculitis, unspecified documented in this encounter Care Teams Pulverizer Relationship Specialty Start Date End Date Deedee Low PA [address] [place] [address] PCP - General PHYSICIAN STATIONARY ENGINEER REFRIGERATION 07/22/20 documented as of this encounter
--- OUTSIDE RECORDS SUMMARY | 2024-02-24 16:58 | XMS_ITS | Encounter Summary ---
Author Organization [facility] Address [address] [place] [address]. [place] [address] [place] [address] Care Team Providers Care Auto Club Travel Counselor Name Role Phone Jennifermary Deedee DELMER Primary Care Provider [phone] Encounter Details Date Type Department Care Team (Latest Contact Info) Description 12/18/2022 [place] 1 Credit Facilityt Message Enc [facility] [address] [facility], [address] [place] [phone] Presley Hernandez MD [address] [place] [address] Insurance Change - prior authorizations Social History Tobacco Use Types [...] st Contact Info) Description 04/15/2024 1:00 PM MOTORBOAT MECHANIC HELPER [facility] [address] [facility], [address] [place] [address] Presley Hernandez MD [address] [place] [address] 04/30/2024 10:40 AM MOTORBOAT MECHANIC HELPER [facility] [address] [facility], [address] [place] [address] Presley Hernandez MD [address] [place] [address] documented as of this encounter Visit Diagnoses Not on filedocumented in this encounter Care Teams Auto Club Travel Counselor Relationship Specialty Start Date End Date Deedee Low PA [address] [place] [address] PCP - General PHYSICIAN REJECTED ITEMS CLERK 07/22/20 documented as of this encounter
--- OUTSIDE RECORDS SUMMARY | 2024-02-24 16:58 | XMS_ITS | Encounter Summary ---
Author Organization [facility] Address [address] [place] [address]. [place] [address] [place] [address] Care Team Providers Care Sales Floor Associate Name Role Phone Deedee Low Primary Care Provider [phone] Reason for Visit * Reason Onset Date Comments Medication 01/24/2023 Encounter Details Date Type Department Care Team (Late st Contact Info) Description 01/24/2023 Telephone [facility] - [address] [place] [phone] Presley Hernandez MD [address] [place] [address] Medication Social History Tobacco Use Types Packs/Day Years [...] as of this encounter Progress Notes * Farideh Martins MA - 01/24/2023 3:19 PM CST Called and was transferred 3 times and on the phone for 30 minutes. States that pt was denied for 16 tablets, but was approved for 8 tablets since her migraines have come down. DESK TROUBLE LOCATOR * Gia Bone - 01/24/2023 12:22 PM CST Macrina from [facility] called today to see if the patient has more then 8 migraines per month. Please call her at [phone] DESK TROUBLE LOCATOR documented in this encounter Plan of Treatment Upcoming Encounters Date Type Department Care Team (Late st Contact Info) Description 04/15/2024 1:00 PM TEST DESK TROUBLE LOCATOR Office Visit [facility] - [address], [address] [place] [address] Presley Hernandez MD [address] [place] [address] 04/30/2024 10:40 AM TEST DESK TROUBLE LOCATOR Office Visit [facility] - [address], [address] [place] [address] Presley Hernandez MD [address] [place] [address] documented as of this encounter Visit Diagnoses Not on filedocumented in this encounter Care Teams Sales Floor Associate Relationship Specialty Start Date End Date Deedee Low PA [address] [place] [address] PCP - General PHYSICIAN EARLY CHILDHOOD ASSOCIATE TEACHER 07/22/20 documented as of this encounter
--- OUTSIDE RECORDS SUMMARY | 2024-02-24 16:58 | XMS_ITS | Encounter Summary ---
Author Organization [facility] Address [address] [place] [address]. [place], [place] [address] [place] [address] Care Team Providers Care Electrician Machine Shop Name Role Phone Jennifermary Deedee DELMER Primary Care Provider [phone] Encounter Details Date Type Department Care Team (Latest Contact Info) Description 07/24/2023 Scan HEALTH INFO SRVCS Scanned, Doc Med [...] st Contact Info) Description 04/15/2024 1:00 PM PYTHON DEVELOPER Office Visit [facility] - [facility] [address] [facility], [address] [place] [phone] Presley Hernandez MD [address] [place] [address] 04/30/2024 10:40 AM PYTHON DEVELOPER Office Visit [facility] [address] [facility], [address] [place] [address] Presley Hernandez MD [address] [place] [address] documented as of this encounter Visit Diagnoses Not on filedocumented in this encounter Care Teams Electrician Machine Shop Relationship Specialty Start Date End Date Deedee Low PA [address] [place] [address] PCP - General PHYSICIAN SHANK ARCHER 07/22/20 documented as of this encounter
--- OUTSIDE RECORDS SUMMARY | 2024-02-24 16:58 | XMS_ITS | Encounter Summary ---
Author Organization [facility] Address [address] [place] [address]. [place], [place] [address] [place] [address] Care Team Providers Care Auto Parker Name Role Phone Deedee Low Primary Care Provider [phone] Encounter Details Date Type Department Care Team (Latest Contact Info) Description 10/17/2022 Travel Social History Tobacco Use Types Packs/Day [...] Contact Info) Description 04/15/2024 1:00 PM MANAGER RESORT Office Visit [facility] [address] [facility], [address] [place] [address] Presley Hernandez MD 3 [place] [address] 04/30/2024 10:40 AM MANAGER RESORT Office Visit [facility] [address] [facility], [address] [place] [address] Presley Hernandez MD 3 [place] [address] documented as of this encounter Visit Diagnoses Not on filedocumented in this encounter Care Teams Auto Parker Relationship Specialty Start Date End Date Deedee Low PA [address] [facility] [address] [place] [address] PCP - General PHYSICIAN RECREATION TECHNICIAN 07/22/20 documented as of this encounter
--- OUTSIDE RECORDS SUMMARY | 2024-02-24 16:58 | XMS_ITS | Encounter Summary ---
Author Organization [facility] Address [address] [place] [address]. [place], [place] [address] [place] [address] Care Team Providers Care Unit Support Representative Name Role Phone Jennifermary Deedee DELMER Primary Care Provider [phone] Encounter Details Date Type Department Care Team (Latest Contact Info) Description 04/17/2023 Scan HEALTH INFO SRVCS Scanned, Doc Med [...] st Contact Info) Description 04/15/2024 1:00 PM CAREER EDUCATION TEACHER Office Visit [facility] - [facility] [address] [facility], [address] [place] [address] Presley Hernandez MD 3 [place] [address] 04/30/2024 10:40 AM CAREER EDUCATION TEACHER Office Visit [facility] - [facility] [address] [facility], [address] [place] [address] Presley Hernandez MD [address] [place] [address] documented as of this encounter Visit Diagnoses Not on filedocumented in this encounter Care Teams Unit Support Representative Relationship Specialty Start Date End Date Deedee Low PA [address] [place] [address] PCP - General PHYSICIAN TABLE RUNNER 07/22/20 documented as of this encounter
--- OUTSIDE RECORDS SUMMARY | 2024-02-24 16:58 | XMS_ITS | Encounter Summary ---
Author Organization [facility] Address [address] [place] [address]. [place], [place] [address] [place] [address] Care Team Providers Care Glass Embosser Name Role Phone Deedee Low Primary Care Provider [phone] Reason for Visit * Reason Comments Botox * Treatment/Therapy Plan Authorization (Routine) - Closed Specialty Diagnoses / Procedures Referred By Angelita silva Referred To Contact Diagnoses Chronic migraine without aura Spasmodic torticollis Procedures BOTULINUM TOXIN A PER UNIT Presley Hernandez MD [address] [place] [address] Phone: tel: fax: [facility] - [address], [address] [place] [address] Phone: tel: Referral ID Status Reason Start Date Expiration Date Visits Re quested Visits Authorized [id number] Closed 01/08/2022 01/07/2023 4 4 Encounter Details Date Type Department Care Team (Late st Contact Info) Description 07/18/2022 9:20 AM CDT Office Visit [address], [address] [place] [address] Presley Hernandez MD [address] [place] [address] Botox Social History Tobacco Use Types Packs/Day [...] Reading Time Taken Comments Blood Pressure 131/86 07/18/2022 9:30 AM CDT Pulse 75 07/18/2022 9:30 AM CDT Temperature 36.7 ??C (98 ??F) 07/18/2022 9:30 AM CDT Respiratory Rate - - Oxygen Saturation 98% 07/18/2022 9:30 AM CDT Inhaled Oxygen Concentration - - Weight 95.8 kg (211 lb 3.2 oz) 07/18/2022 9:30 A M CDT Height 162.6 cm (5' 4 ) 07/18/2022 9:30 AM CDT Body Mass Index 36.25 07/18/2022 9:30 AM CDT documented in this encounter Progress Notes * Larry Villanueva MA - 07/18/2022 9:20 AM CDTAddended by: LARRY VILLANUEVA on: 07/19/2022 02:23 PM Modules accepted: Orders * Presley Hernandez MD - 07/18/2022 9:20 AM CDT Botox treatment cycle number:4 Lot type:?Buy and bill Benefits: 80% in 2 months Side effects: none Wastage:??40 ?? Botox Injection Procedure Informed consent: signed [...] trapezius, 15 units to left middle trapezius ?? A total of??60??units of botulinum toxin type A (BOTOX) were injected.?The procedure was tolerated well without complication. will return to clinic in three months' time for repeat injections documented in this encounter Plan of Treatment Upcoming Encounters Date Type Department Care Team (Late st Contact Info) Description 04/15/2024 1:00 PM CLINICAL NURSING COORDINATOR [facility] - [address], [address] [place] [address] Presley Hernandez MD [address] [place] [address] 04/30/2024 10:40 AM CLINICAL NURSING COORDINATOR [facility] - [address], [address] [place] [address] Presley Hernandez MD [address] [place] [address] Scheduled Orders Name Type Priority Associated Diagnoses Orde r Schedule NECK MUSCLE EXCLUDING MUSCLES OF THE LARYNX UNILATERAL Procedures Routine Cervical dystonia Ordered: 07/18/2022 [facility] EM[facility] GDN CONJUNCT CHEMODNRVTJ Procedures Routine Cervical dystonia Ordered: 07/18/2022 documented as of this encounter Visit Diagnoses [...] Units, Intramuscular, Once, 1 dose, On Mariaelena 07/19/22 at 1445Indications:Spasmodic torticollis,Trigeminal neuralgia,Chronic migraine without aura Given 07/18/2022 9:00 AM CDT 210 Units Other documented in this encounter Care Teams Glass Embosser Relationship Specialty Start Date End Date Deedee Low PA [address] [place] [address] PCP - General PHYSICIAN POWER NUT RUNNER OPERATOR 07/22/20 documented as of this encounter
--- OUTSIDE RECORDS SUMMARY | 2024-02-24 16:58 | XMS_ITS | Encounter Summary ---
Author Organization [facility] Address [address] [place] [address]. [place], [place] [address] [place] [address] Care Team Providers Care Reconstructive Dentist Name Role Phone JennifermaryDeedee Primary Care Provider [phone] Reason for Visit * Reason Comments Botox Patient here for Bot ox. * Treatment/Therapy Plan Authorization (Routine) - Closed Specialty Diagnoses / Procedures Referred By Angelita silva Referred To Contact Diagnoses Chronic migraine without aura without status migrainosus, not intractable Trigeminal neuralgia Spasmodic torticollis Procedures BOTULINUM TOXIN A PER UNIT Presley Hernandez MD [address] [place] [address] Phone: tel: fax: [facility] - [address], [address] [place] [address] Phone: tel: Referral ID Status Reason Start Date Expiration Date Visits Re quested Visits Authorized [id number] Closed 12/14/2022 12/15/2023 8 8 Encounter Details Date Type Department Care Team (Latest Contact Info) Description 04/17/2023 3:40 PM CREMATORY OPERATOR [facility] - [address], [address] [place] [address] Presley Hernandez MD [address] [place] [id number] Botox (Patient here for Botox.) Social History Tobacco Use Types Packs/Day Years [...] Sign Reading Time Taken Comments Blood Pressure 138/94 04/17/2023 4:08 PM CREMATORY OPERATOR Pulse 88 04/17/2023 3:30 PM CREMATORY OPERATOR Temperature 36.6 ??C (97.9 ??F) 04/17/2023 3:30 PM CS T Respiratory Rate 18 04/17/2023 3:30 PM CREMATORY OPERATOR Oxygen Saturation 100% 04/17/2023 3:30 PM CREMATORY OPERATOR Inhaled Oxygen Concentration - - Weight 96.6 kg (212 lb 14.4 oz) 04/17/2023 3:30 PM CREMATORY OPERATOR Height 162.6 cm (5' 4 ) 04/17/2023 3:30 PM CREMATORY OPERATOR Body Mass Index 36.54 04/17/2023 3:30 PM CREMATORY OPERATOR documented in this encounter Progress Notes * Tuyet Torres MA - 04/17/2023 3:40 PM CSTAddended by: TUYET TORRES on: 04/19/2023 03:02 PM Modules accepted: Orders ATORY OPERATOR * Presley Hernandez MD - 04/17/2023 3:40 PM CST Botox treatment cycle number: 9 Botox side effect: None Medication effect lasted [...] 155 units at 31 different sites. A. Automation And Control Engineer : 10 Units divided in 2 [...] for. Return to neurology clinic 3 months ATORY OPERATOR documented in this encounter Plan of Treatment Upcoming Encounters Date Type Department Care Team (Late st Contact Info) Description 04/15/2024 1:00 PM CREMATORY OPERATOR [facility] [address] [facility], [address] [place] [address] Presley Hernandez MD 3 [place] [address] 04/30/2024 10:40 AM CREMATORY OPERATOR [facility] [address] [facility], [address] [place] [address] Presley Hernandez MD 3 [place] [address] Scheduled Orders Name Type Priority Associated Diagnoses Orde r Schedule CHEMODENERVATION MUSCLE INNERVTD, BILAT Procedures Routine Chronic migraine w/o aura w/o status migrainosus, not intractable Ordered: 04/18/2023 documented as of this encounter Visit Diagnoses Diagnosis Chronic migraine w/o aura w/o status migrainosus, not intractable- Primary Chronic migraine without aura, without mention of intractable migraine without mention of status migrainosus Spasmodic torticollis Trigeminal neuralgia Chronic migraine without aura without status migrainosus, not intractable Chronic migraine without aura, without mention of intractable migraine without mention of status migrainosus documented in this encounter Administered Medications Inactive Administered Medications - up to 3 most recent administrations Medication Order MAR Action Action Date Dose Rate Site botulinum toxin type A (BOTOX) injection 155 Units 155 Units, Intramuscular, Once, 1 dose, On Sat04/19/23 at 1515, * 200 unit vial *Indications:Spasmodic torticollis,Trigeminal neuralgia,Chronic migraine without aura without status migrainosus, not intractable Given 04/17/2023 3:40 PM CREMATORY OPERATOR 155 Units Other documented in this encounter Care Teams Reconstructive Dentist Relationship Specialty Start Date End Date Deedee Low PA [address] [place] [address] PCP - General PHYSICIAN VICE PRESIDENT COMM[employer]CIAL BANK 07/22/20 documented as of this encounter
--- OUTSIDE RECORDS SUMMARY | 2024-02-24 16:58 | XMS_ITS | Encounter Summary ---
Author Organization [facility] Address [address] [place] [address]. [place], [place] [address] [place] [address] Care Team Providers Care Commissioner Of Conciliation Name Role Phone Deedee Low Primary Care Provider [phone] Encounter Details Date Type Department Care Team (Latest Contact Info) Description 04/25/2023 Travel Social History Tobacco Use Types Packs/Day [...] st Contact Info) Description 04/15/2024 1:00 PM BAND SALVAGER Office Visit [facility] - [facility] 3 [facility], [address] [place] [address] Presley Hernandez MD 3 [place] [address] 04/30/2024 10:40 AM BAND SALVAGER Office Visit [facility] - [facility] [address] [facility], [address] [place] [address] Presley Hernandez MD 3 [place] [address] documented as of this encounter Visit Diagnoses Not on filedocumented in this encounter Care Teams Commissioner Of Conciliation Relationship Specialty Start Date End Date Deedee Low PA [address] [facility] [address] [place] [address] PCP - General PHYSICIAN BICYCLE COURIER 07/22/20 documented as of this encounter
--- OUTSIDE RECORDS SUMMARY | 2024-02-24 16:58 | XMS_ITS | Encounter Summary ---
Author Organization [facility] Address [address] [place] [address]. [place], [place] [address] [place] [address] Care Team Providers Care Intensive Care Specialist Name Role Phone Jennifermary Deedee DELMER Primary Care Provider Encounter Details Date Type Department Care Team (Latest Contact Info) Description 05/29/2023 Scan HEALTH INFO SRVCS Scanned, Doc Med [...] st Contact Info) Description 04/15/2024 1:00 PM WELDER ASSEMBLER Office Visit [facility] - [facility] 3 [facility], [address] [place] [address] Presley Hernandez MD 3 [place] [address] 04/30/2024 10:40 AM WELDER ASSEMBLER Office Visit [facility] - [facility] [address] [facility], [address] [place] [address] Presley Hernandez MD 3 [place] [address] documented as of this encounter Visit Diagnoses Not on filedocumented in this encounter Care Teams Intensive Care Specialist Relationship Specialty Start Date End Date Deedee Low PA [address] [place] [address] PCP - General PHYSICIAN JUVENILE JUSTICE SPECIALIST 07/22/20 documented as of this encounter
--- OUTSIDE RECORDS SUMMARY | 2024-02-24 16:58 | XMS_ITS | Encounter Summary ---
Author Organization [facility] Address [address] [place] [address]. [place], [place] [address] [place] [address] Care Team Providers Care Sorter Packer Name Role Phone Deedee Low Primary Care Provider [phone] Encounter Details Date Type Department Care Team (Latest Contact Info) Description 06/03/2023 Travel Social History Tobacco Use Types Packs/Day [...] st Contact Info) Description 04/15/2024 1:00 PM JOGGER OPERATOR Office Visit [facility]ty Care - [facility] 3 [facility], [address] [place] [address] Presley Hernandez MD 3 [place] [address] 04/30/2024 10:40 AM JOGGER OPERATOR Office Visit [facility] - [facility] 3 [facility], [address] [place] [address] Presley Hernandez MD 3 [place] [address] documented as of this encounter Visit Diagnoses Not on filedocumented in this encounter Care Teams Sorter Packer Relationship Specialty Start Date End Date Deedee Low PA [address] [facility] [address] [place] [address] PCP - General PHYSICIAN MACHINE SHOP WORKER 07/22/20 documented as of this encounter
--- OUTSIDE RECORDS SUMMARY | 2024-02-24 16:58 | XMS_ITS | Encounter Summary ---
Author Organization [facility] Address [address] [place] [address]. [place], [place] [address] [place] [address] Care Team Providers Care Manager Of Distribution Name Role Phone Deedee Low Primary Care Provider [phone] Reason for Visit * Auth/Cert (Routine) Specialty Diagnoses / Procedures Referred By Angelita t Referred To Contact Diagnoses Cervical radiculopathy cervical radiculopathy Procedures NJX INTERLAMINAR CRV/THRC INJECTION EPIDURAL STEROID CERVICAL C5-6 Lidia Weston MD [facility] [address] [place] [address] Phone: tel: fax: Referral ID Status Reason Start Date Expiration Date Visits Re quested Visits Authorized [id number] 1 1 Encounter Details Date Type Department Care Team (Latest Contact Info) Description 10/05/2022 8:50 AM CDT - 10/05/2022 9:53 AM T Hospital Encounter [facility] [place], [place] [phone] Lidia Weston MD [facility] [address] [place] [phone] Discharge Disposition: Home or Self Care (Routine [...] CALL US WHEN PAIN RETURNS AND PERSISTS [place] Inter[facility] Management Discharge Instructions WHAT TO [...] DOCTOR AND HOW TO REACH US: Call [phone] ext. [phone] for scheduling, insurance questions or speak with [...] Medicare, Medicare replacement plans, and/or Government plans [facility] Commercial plans Your insurance recommends we do [...] PERCENTAGE OF RELIEF IN {[facility] F/U:07599} Please call [phone] Ext. [phone] option 4. You may need to leave [...] Continuous Blood Gluc Sensor (DEXCOM G6 SENSOR) [facility] 2 Continuous Blood Gluc Transmit (DEXCOM G6 TRANSMITTER) [facility] 2 diazePAM 5 MG tablet Take 1 [...] Disposable Pump (OMNIPOD DASH PODS, GEN 4,) [facility] Omnipod Dash Pods (Gen 4) lamoTRIgine 100 [...] (TOPAMAX) 200 MG tabletIndications:M S (multiple sclerosis) ([facility]),Migraine without aura, not intractable, without status migrainosus [...] carBAMazepine 200 MG tabletIndications:M S (multiple sclerosis) ([facility]),Migraine without aura, not intractable, without status migrainosus [...] (INDERAL) 20 MG tabletIndications:M S (multiple sclerosis) ([facility]),Migraine without aura, not intractable, without status migrainosus [...] Migraine. 16 tablet 11 3 07/24/19 24 rizatriptan [...] Continuous Blood Gluc Sensor (DEXCOM G6 SENSOR) [facility] 09/28/21 Doc Prevea Abstract Continuous Blood Gluc Transmit (DEXCOM G6 TRANSMITTER) [facility] 09/27/21 Doc Prevea Abstract diazePAM 5 MG [...] Disposable Pump (OMNIPOD DASH PODS, GEN 4,) [facility] Omnipod Dash Pods (Gen 4) Default History [...] unspecified Asthma COVID 06/02/2022 Depression Diabetes mellitus ([facility]) GERD (gastroesophageal reflux disease) Hypertension Migraines [...] st Contact Info) Description 04/15/2024 1:00 PM FORESTRY PATROLMAN [facility] - [address], [address] [place] [address] Presley Hernandez MD [address] [place] [address] 04/30/2024 10:40 AM FORESTRY PATROLMAN [facility] [address] [facility], [address] [place] [address] Presley Hernandez MD 3 [place] [address] documented as of this encounter Procedures Procedure [...] saturated swab to clean oral cavity., Pre-Op diazePAM (VALIUM) tablet 10 mg 10 mg, [...] Given 10/05/2022 9:29 AM CDT 1 tablet documented in this encounter Active and Recently Administered Medications Times are shown in CDT. Scheduled Medication Order 10/03/2022 10/04/2022 10/05/2022 HYDROcodone-acetaminophen (NORCO) 5-325 MG tablet 1 tablet (COMPLETED) 1 tablet, Oral, Once, 1 dose, On Sat10/05/22 at 0930, Maximum dose of acetaminophen is 4000 mg from all sources in 24 hours. 928 (Given - Provid er: Elyssa Burt RN) PRN Medication Order 10/03/2022 10/04/2022 10/05/2022 [...] at 0944, Until Sat10/05/22 at 0945, Intra-Op 943 (Given - Provid er: Lidia Weston MD) diazePAM (VALIUM) tablet 10 mg (COMPLETED) 10 mg, Oral, Once as needed, Anxiety, 1 dose, Starting on Sat10/05/22 at 0912, Until Sat10/05/22 at 0930, Pre-Op 929 (Given - Provid er: Elyssa Burt RN) [...] MD) documented in this encounter Care Teams Manager Of Distribution Relationship Specialty Start Date End Date Deedee Low PA [address] [facility] [address] [place] [address] PCP - General PHYSICIAN EVALUATION ADVISOR 07/22/20 documented as of this encounter
--- OUTSIDE RECORDS SUMMARY | 2024-02-24 16:58 | XMS_ITS | Encounter Summary ---
Author Organization [facility] Address [address] [place] [address]. [place], [place] [address] [place] [address] Care Team Providers Care Tank Builder Name Role Phone Jennifermary Deedee DELMER Primary Care Provider [phone] Encounter Details Date Type Department Care Team (Latest Contact Info) Description 01/16/2023 Scan HEALTH INFO SRVCS Scanned, Doc Med [...] st Contact Info) Description 04/15/2024 1:00 PM US CUSTOMS AND BORDER OFFICER Office Visit [facility] Care - [facility] [address] [facility], [address] [place] [address] Presley Hernandez MD 3 [place] [address] 04/30/2024 10:40 AM US CUSTOMS AND BORDER OFFICER Office Visit [facility] - [facility] [address] [facility], [address] [place] [address] Presley Hernandez MD 3 [place] [address] documented as of this encounter Visit Diagnoses Not on filedocumented in this encounter Care Teams Tank Builder Relationship Specialty Start Date End Date Deedee Low PA [address] [place] [address] PCP - General PHYSICIAN STRIP CUTTING MACHINE OPERATOR 07/22/20 documented as of this encounter
--- OUTSIDE RECORDS SUMMARY | 2024-02-24 16:58 | XMS_ITS | Encounter Summary ---
Author Organization [facility] Address [address] [place] [address]. [place] [address] [place] [address] Care Team Providers Care Supervisor Graphite Name Role Phone Jennifermary Deedee DOWELL Primary Care Provider [phone] Reason for Visit * Reason Onset Date Comments Appointment Request 04/17/2023 Encounter Details Date Type Department Care Team (Late st Contact Info) Description 04/17/2023 Telephone [facility]ty Care - [facility] [address] [facility], [address] [place] [address] Presley Hernandez MD 3 [place] [address] Appointment Request Social History Tobacco Use Types Packs/Day Years [...] Progress Notes * Tania Ha MA - 04/17/2023 1:15 PM CST Left voicemail for patient to return call to the office or come in early for today's appointment-- patient can come in anytime 2PM or after today. ONHOLE MAKER documented in this encounter Plan of Treatment Upcoming Encounters Date Type Department Care Team (Late st Contact Info) Description 04/15/2024 1:00 PM BUTTONHOLE MAKER Office Visit [facility] - [address], [address] [place] [address] Presley Hernandez MD [address] [place] [address] 04/30/2024 10:40 AM BUTTONHOLE MAKER Office Visit [facility] - [address], [address] [place] [address] Presley Hernandez MD [address] [place] [address] documented as of this encounter Visit Diagnoses Not on filedocumented in this encounter Care Teams Supervisor Graphite Relationship Specialty Start Date End Date Deedee Low PA [address] [place] [address] PCP - General PHYSICIAN DOUBLE END CHUCKING MACHINE OPERATOR 07/22/20 documented as of this encounter
--- OUTSIDE RECORDS SUMMARY | 2024-02-24 16:58 | XMS_ITS | Encounter Summary ---
Author Organization [facility] Address [address] [place] [address]. [place], [place] [address] [place] [address] Care Team Providers Care Silk Screen Operator Name Role Phone Deedee Low Primary Care Provider [phone] Encounter Details Date Type Department Care Team (Latest Contact Info) Description 10/10/2022 Scan HEALTH INFO SRVCS Scanned, Doc Med [...] st Contact Info) Description 04/15/2024 1:00 PM RUG FRAME MOUNTER [facility] - [facility] [address] [facility], [address] [place] [address] Presley Hernandez MD 3 [place] [address] 04/30/2024 10:40 AM RUG FRAME MOUNTER Office Visit [facility] - [facility] [address] [facility], [address] [place] [address] Presley Hernandez MD 3 [place] [address] documented as of this encounter Visit Diagnoses Not on filedocumented in this encounter Care Teams Silk Screen Operator Relationship Specialty Start Date End Date Deedee Low PA [address] [place] [address] PCP - General PHYSICIAN TAPE FASTENER MACHINE OPERATOR 07/22/20 documented as of this encounter
--- OUTSIDE RECORDS SUMMARY | 2024-02-24 16:58 | XMS_ITS | Encounter Summary ---
Author Organization [facility] Address [address] [place] [address]. [place], [place] [address] [place] [address] Care Team Providers Care Dealer Sales Rep Name Role Phone Jennifermary Deedee DELMER Primary Care Provider [phone] Encounter Details Date Type Department Care Team (Latest Contact Info) Description 07/18/2022 Scan HEALTH INFO SRVCS Scanned, Doc Med [...] st Contact Info) Description 04/15/2024 1:00 PM MANUFACTURING APPLICATIONS ENGINEER Office Visit [facility] Multispec[facility]ty Care - [address], [address] [place] [address] Presley Hernandez MD 3 [place] [address] 04/30/2024 10:40 AM MANUFACTURING APPLICATIONS ENGINEER Office Visit [facility] Care - [facility] 3 [facility], [address] [place] [address] Presley Hernandez MD 3 [place] [address] documented as of this encounter Visit Diagnoses Not on filedocumented in this encounter Care Teams Dealer Sales Rep Relationship Specialty Start Date End Date Deedee Low PA [address] [place] [address] PCP - General PHYSICIAN SUPERVISOR STERILE PROCESSING 07/22/20 documented as of this encounter
--- OUTSIDE RECORDS SUMMARY | 2024-02-24 16:58 | XMS_ITS | Encounter Summary ---
Author Organization [facility] Address [address] [place] [address]. [place], [place] [address] [place] [address] Care Team Providers Care Planer Tailer Name Role Phone Jennifermray Deedee DELMER Primary Care Provider [phone] Encounter Details Date Type Department Care Team (Latest Contact Info) Description 07/11/2022 Travel Social History Tobacco Use Types Packs/Day [...] suspected to have Coronavirus/COVID-19? No / Unsure 07/11/2022 1:27 PM CDT documented as of this encounter Plan of Treatment Upcoming Encounters Date Type Department Care Team (Late st Contact Info) Description 04/15/2024 1:00 PM WEB ANALYTICS SPECIALIST Office Visit [facility] Multispecialty Care - [address], [address] [place] [address] Presley Hernandez MD 3 [place] [address] 04/30/2024 10:40 AM WEB ANALYTICS SPECIALIST Office Visit [facility] - [facility] 3 [facility], [address] [place] [address] Presley Hernandez MD 3 [place] [address] documented as of this encounter Visit Diagnoses Not on filedocumented in this encounter Care Teams Planer Tailer Relationship Specialty Start Date End Date Deedee Low PA [address] [place] [address] PCP - General PHYSICIAN INTERNAL CONSULTANT 07/22/20 documented as of this encounter
--- OUTSIDE RECORDS SUMMARY | 2024-02-24 16:59 | XMS_ITS | Encounter Summary ---
Author Organization [facility] Address [address] [place] [address]. [place], [place] [address] [place] [address] Care Team Providers Care Maintenance Helper Utility Engineer Name Role Phone Jennifermary Deedee DELMER Primary Care Provider [phone] Encounter Details Date Type Department Care Team (Latest Contact Info) Description 07/02/2022 Travel Social History Tobacco Use Types Packs/Day Years Used Date Smoking Tobacco: Former Cigarettes Smokeless Tobacco: Former Alcohol Use Standard Drinks/Week Comments Yes 0 (1 standard drink = 0.6 oz pur e alcohol) occasionally PHQ-2 Answer Date Recorded Patient Health Questionnaire-2 Score 0 04/18/2022 Comments No Sex and Gender Information Value Date Recorded Sex Assigned at Not on file Legal Sex Female 2:06 PM CDT Gender Identity Not on file Sexual Orientation Not on file COVID-19 Exposure Response Date Recorded In the last 10 days, have yo u been in contact with someone who was confirmed or suspected to have Coronavirus/COVID-19? No / Unsure 07/02/2022 8:01 AM CDT documented as of this encounter Plan of Treatment Upcoming Encounters Date Type Department Care Team (Late st Contact Info) Description 04/15/2024 1:00 PM WATER QUALITY SPECIALIST Office Visit [facility] Multispecialty Care - [address], [address] [place] [address] Presley Hernandez MD 3 [place] [address] 04/30/2024 10:40 AM WATER QUALITY SPECIALIST Office Visit [facility]ialty Care - [facility] 3 [facility], [address] [place] [address] Presley Hernandez MD 3 [place] [address] documented as of this encounter Visit Diagnoses Not on filedocumented in this encounter Care Teams Maintenance Helper Utility Engineer Relationship Specialty Start Date End Date Deedee Low PA [address] [place] [address] PCP - General PHYSICIAN FLY RAISER LOCKSTITCH 07/22/20 documented as of this encounter
--- OUTSIDE RECORDS SUMMARY | 2024-02-24 16:59 | XMS_ITS | Encounter Summary ---
Author Organization [facility] Address [address] [place] [address]. [place], [place] [address] [place] [address] Care Team Providers Care Identity Access Management Architect Name Role Phone Deedee Low Primary Care Provider [phone] Reason for Visit * Reason Comments Botox * Injection (Routine) - Closed Specialty Diagnoses / Procedures Referred By Angelita silva Referred To Contact Diagnoses Chronic migraine without aura, not intractable, without status migrainosus Trigeminal neuralgia Spasmodic torticollis chronic migraines--200 units trigeminal neuralgia--50 units Procedures BOTOX Presley Hernandez MD [address] [place] [address] Phone: tel: fax: Presley Hernandez MD [address] [place] [address] Phone: tel: fax: Referral ID Status Reason Start Date Expiration Date Visits Re quested Visits Authorized [id number] Closed 01/07/2022 01/08/2023 8 8 Encounter Details Date Type Department Care Team (Late st Contact Info) Description 04/18/2022 9:20 AM CANVAS REPAIRER Office Visit [facility] Multispecialty Care - [address], [address] [place] [address] Presley Hernandez MD [address] [place] [address] Botox Social History Tobacco Use Types Packs/Day Years Used Date Smoking Tobacco: Former Cigarettes Smokeless Tobacco: Former Tobacco Cessation:Counseling Given: Yes Alcohol Use Standard Drinks/Week Comments Yes 0 [...] Sign Reading Time Taken Comments Blood Pressure 141/82 04/18/2022 9:22 AM CANVAS REPAIRER Pulse 74 04/18/2022 9:22 AM CANVAS REPAIRER Temperature 37.1 ??C (98.7 ??F) 04/18/2022 9:22 AM CS T Respiratory Rate 18 04/18/2022 9:22 AM CANVAS REPAIRER Oxygen Saturation 100% 04/18/2022 9:22 AM CANVAS REPAIRER Inhaled Oxygen Concentration - - Weight 97.8 kg (215 lb 8 oz) 04/18/2022 9:22 AM CANVAS REPAIRER Height 162.6 cm (5' 4 ) 04/18/2022 9:22 AM CANVAS REPAIRER Body Mass Index 36.99 04/18/2022 9:22 AM CANVAS REPAIRER documented in this encounter Progress Notes * Presley Hernandez MD - 04/18/2022 9:20 AM CSTAddended by: PRESLEY HERNANDEZ on: 07/04/2022 11:06 AM Modules accepted: Orders * Presley Hernandez MD - 04/18/2022 9:20 AM CST Botox treatment cycle number:3 Lot type: Buy and bill Benefits: 80% in 2 months Side effects: none Wastage: 40 ?? Botox Injection Procedure Informed consent: signed [...] to left middle trapezius ?? A total of 60 units of botulinum toxin type A (BOTOX) were injected.?The procedure was toleratedwell without complication. will return to clinic in three months' time for repeat injections AS REPAIRER documented in this encounter Plan of Treatment Upcoming Encounters Date Type Department Care Team (Late st Contact Info) Description 04/15/2024 1:00 PM CANVAS REPAIRER Office Visit [facility] [address] [facility], [address] [place] [phone] Presley Hernandez MD [address] [place] [address] 04/30/2024 10:40 AM CANVAS REPAIRER [facility] [address], [address] [place] [phone] Presley Hernandez MD [address] [place] [address] Scheduled Orders Name Type Priority Associated Diagnoses Orde r Schedule NECK MUSCLE EXCLUDING MUSCLES OF THE LARYNX UNILATERAL Procedures Routine Cervical dystonia Ordered: 04/18/2022 NDL EMG GDN CONJUNCT CHEMODNRVTJ Procedures Routine Cervical dystonia Ordered: 04/18/2022 documented as of this encounter Visit Diagnoses Diagnosis Cervical dystonia- Primary Spasmodic torticollis Migraine without aura, not intractable, without status migrainosus documented in this encounter Administered Medications Inactive Administered Medications - up to 3 most recent administrations Medication Order MAR Action Action Date Dose Rate Site onabotulinumtoxinA (BOTOX) injection 100 Units 100 Units, Intramuscular, Once, 1 dose, On Sat04/18/22 at 2100Indications:Cervical dystonia Given 04/18/2022 9:20 AM CANVAS REPAIRER 100 Units Other documented in this encounter Care Teams Identity Access Management Architect Relationship Specialty Start Date End Date Deedee Low PA [address] [place] [address] PCP - General PHYSICIAN RECORD SEARCHER 07/22/20 documented as of this encounter
--- OUTSIDE RECORDS SUMMARY | 2024-02-24 16:59 | XMS_ITS | Encounter Summary ---
Author Organization [facility] Address [address] [place] [address]. [place], [place] [address] [place] [address] Care Team Providers Care Reshipping Clerk Name Role Phone Deedee Low Primary Care Provider [phone] Reason for Referral * Surgical (Routine) - Closed Specialty Diagnoses / Procedures Referred By Angelita silva Referred To Contact Diagnoses Lumbar radiculopathy Procedures Case request operating room: INJECTION EPIDURAL TRANSFORAMINAL L5-S1 Tania Yang APNP Phone: tel: fax: Referral ID Status Reason Start Date Expiration Date Visits Re quested Visits Authorized [id number] Closed 05/23/2022 05/24/2023 1 1 Encounter Details Date Type Department Care Team (Late st Contact Info) Description 05/23/2022 Prep for Procedure [facility] [place] [address] [phone] Tania Yang APNP [address] [place] [phone] Social History Tobacco Use Types Packs/Day Years [...] suspected to have Coronavirus/COVID-19? No / Unsure 05/23/2022 8:06 AM CDT documented as of this encounter Plan of Treatment Upcoming Encounters Date Type Department Care Team (Late st Contact Info) Description 04/15/2024 1:00 PM TRANSPORTATION AID Office Visit [facility] - [address], [address] [address] Presley Hernandez MD [address] [place] [address] 04/30/2024 10:40 AM TRANSPORTATION AID Office Visit [facility] - [address], [address] [place] [address] Presley Hernandez MD [address] [place] [address] Scheduled Orders Name Type Priority Associated Diagnoses Orde r Schedule Case request operating room: INJECTION EPIDURAL TRANSFORAMINAL L5-S1 Case Request Routine Lumbar radiculopathy Once for 1 Occurrences starting 05/23/2022 until 05/23/2022 documented as of this encounter Visit Diagnoses Diagnosis Lumbar radiculopathy- Primary Thoracic or lumbosacral neuritis or radiculitis, unspecified documented in this encounter Care Teams Reshipping Clerk Relationship Specialty Start Date End Date Deedee Low PA [address] [place] [address] PCP - General PHYSICIAN PROFESSIONAL NURSING TUTOR 07/22/20 documented as of this encounter
--- OUTSIDE RECORDS SUMMARY | 2024-02-24 16:59 | XMS_ITS | Encounter Summary ---
Author Organization [facility] Address [address] [place] [address]. [place], [place] [address] [place] [address] Care Team Providers Care Assistant Credit Manager Name Role Phone Deedee Low Primary Care Provider [phone] Reason for Visit * Reason Onset Date Comments Question 05/07/2022 Encounter Details Date Type Department Care Team (Late st Contact Info) Description 05/07/2022 Telephone [facility] [place] [address] [phone] Nadia Gallo, RN Question Social History Tobacco Use Types Packs/Day [...] suspected to have Coronavirus/COVID-19? No / Unsure 04/18/2022 9:01 AM LEGISLATIVE AIDE documented as of this encounter Progress Notes * Nadia Gallo RN - 05/07/2022 1:54 PM CSTSummary: pt questions Pt called today to get scheduled for lower back injections. Pt states she has had SI already, pt states she had good relief on one side. Pt states there was talk about changing procedure/levels. Pt states pain is in lower back and hips/ right side is worse than left. Pt also questioning level of cervical injection. States she thought she may be getting a level up injected instead of repeating last procedure. SLATIVE AIDE documented in this encounter Plan of Treatment Upcoming Encounters Date Type Department Care Team (Late st Contact Info) Description 04/15/2024 1:00 PM LEGISLATIVE AIDE Office Visit [facility] [address] [facility], [address] [place] [phone] Presley Hernandez MD [address] [place] [phone] 04/30/2024 10:40 AM LEGISLATIVE AIDE Office Visit [facility] [address] [facility], [address] [place] [address] Presley Hernandez MD [address] [place] [address] documented as of this encounter Visit Diagnoses Not on filedocumented in this encounter Care Teams Assistant Credit Manager Relationship Specialty Start Date End Date Deedee Low PA [address] [place] [address] PCP - General PHYSICIAN CUSTOMER SERVICE CONSULTANT 07/22/20 documented as of this encounter
--- OUTSIDE RECORDS SUMMARY | 2024-02-24 16:59 | XMS_ITS | Encounter Summary ---
Author Organization [facility] Address [address] [place] [address]. [place], [place] [address] [place] [address] Care Team Providers Care [employer] Instruments Inspector Name Role Phone Jennifermary Deedee DELMER Primary Care Provider [phone] Encounter Details Date Type Department Care Team (Latest Contact Info) Description 04/18/2022 Travel Social History Tobacco Use Types Packs/Day [...] Coronavirus/COVID-19? No / Unsure 04/18/2022 9:01 AM SENIOR QUALITY CONTROL INSPECTOR documented as of this encounter Plan of Treatment Upcoming Encounters Date Type Department Care Team (Late st Contact Info) Description 04/15/2024 1:00 PM SENIOR QUALITY CONTROL INSPECTOR Office Visit [facility] Multispecialty [facility] - [address], [address] [place] [address] Presley Hernandez MD [address] [place] [address] 04/30/2024 10:40 AM SENIOR QUALITY CONTROL INSPECTOR Office Visit [facility] - [facility] [address] [facility], [address] [place] [address] Presley Hernandez MD [address] [place] [address] documented as of this encounter Visit Diagnoses Not on filedocumented in this encounter Care Teams [employer] Inspector Relationship Specialty Start Date End Date Deedee Low PA [address] [place] [address] PCP - General PHYSICIAN TECHNICIAN TEST SYSTEMS 07/22/20 documented as of this encounter
--- OUTSIDE RECORDS SUMMARY | 2024-02-24 16:59 | XMS_ITS | Encounter Summary ---
Author Organization [facility] Address [address] [place] [address]. [place] [address] [place] [address] Care Team Providers Care Senior Instructor Name Role Phone Deedee Low Primary Care Provider [phone] Reason for Visit * Reason Onset Date Comments Medication 06/18/2022 Encounter Details Date Type Department Care Team (Late st Contact Info) Description 06/18/2022 Telephone [facility] - [address] [place] [phone] Presley Hernandez MD [address] [place] [address] Medication Social History Tobacco Use Types Packs/Day [...] Progress Notes * Michelle Begum RN - 06/18/2022 2:16 PM CDT Spoke with Aylin. Explained that office notes states she had 3 headaches and 20 headaches. Unfortunately this will have to go to an MD to review. * Haydee De Los Santos - 06/18/2022 2:12 PM CDT Aylin with [facility] retn call, xferred to AF * Michelle Begum RN - 06/18/2022 1:20 PM CDT LVM for return call. * Haydee De Los Santos - 06/18/2022 9:55 AM CDT Aylin with [facility] calling re: form we sent for Qulipta We stated pt has more than 15 h/a per month Med can only be approved if h/a per month are between 4-15. If this is just an error on our part please let her know and she will approve the meds [phone] Aylin, this is her direct line documented in this encounter Plan of Treatment Upcoming Encounters Date Type Department Care Team (Late st Contact Info) Description 04/15/2024 1:00 PM SHARK BIOLOGIST Office Visit [facility] Mult[facility]pecial[facility] - [facility] [address] [facility], [address] [place] [phone] Presley Hernandez MD [address] [place] [address] 04/30/2024 10:40 AM SHARK BIOLOGIST Office Visit [facility] Mult[facility]pec[facility] - [facility] [address] [facility], [address] [place] [address] Presley Hernandez MD [address] [place] [address] documented as of this encounter Visit Diagnoses Not on filedocumented in this encounter Care Teams Senior Instructor Relationship Specialty Start Date End Date Deedee Low PA [address] [place] [address] PCP - General PHYSICIAN INSTRUCTIONAL CONSULTANT 07/22/20 documented as of this encounter
--- OUTSIDE RECORDS SUMMARY | 2024-02-24 16:59 | XMS_ITS | Encounter Summary ---
Author Organization [facility] Address [address] [place] [address]. [place], [place] [address] [place] [address] Care Team Providers Care Speech Pathologist Name Role Phone Deedee Low Primary Care Provider [phone] Reason for Visit * Auth/Cert (Routine) Specialty Diagnoses / Procedures Referred By Angelita t Referred To Contact Diagnoses Lumbar radiculopathy lumbar radiculopathy Procedures INJECTION EPIDURAL TRANSFORAMINAL L5-S1 Ishmael Weston MD [facility] [address] [place] [address] Phone: tel: fax: Referral ID Status Reason Start Date Expiration Date Visits Re quested Visits Authorized [id number] 1 1 Encounter Details Date Type Department Care Team (Late st Contact Info) Description 07/02/2022 9:00 AM CDT - 07/02/2022 9:20 AM CDT Surgery [facility] [place], [place] [phone] [phone] Ishmael Weston MD [facility] [address] [place] [address] [phone] INJECTION EPIDURAL TRANSFORAMINAL L5-S1 Surgery Details Date/Time Status Location OR Service Patient Class Case Class Case Type Trauma Case? 07/02/2022 9:00 AM Posted [facility] Rm Pain Medicine Short Stay/Outpa tient Surgery No Panel 1 Procedure LRB Anes Op Region Wound Class Comments INJECTION EPIDURAL TRANSFORAMINAL L5-S1 Bilateral Local Clean INJECTION EPIDURAL TRANSFORAMINAL L5-S1 NO BT [employer]IG[employer] OPEN ACCESS SCHED 05/23/22 CN Surgeon Surgeon Role Service Panel Ishmael Weston MD Primary Pain Medicine 1 documented in this encounter Social History Tobacco Use Types Packs/Day Years Used Date Smoking Tobacco: Former Cigarettes Smokeless Tobacco: Former Tobacco Cessation:Counseling Given: Not Answered Alcohol Use Standard Drinks/Week Comments Yes 0 [...] Sign Reading Time Taken Comments Blood Pressure 140/96 07/02/2022 8:30 AM CDT Pulse 94 07/02/2022 8:30 AM CDT Temperature 36.6 ??C (97.8 ??F) 07/02/2022 8:30 AM CD T Respiratory Rate 18 07/02/2022 8:30 AM CDT Oxygen Saturation 100% 07/02/2022 8:30 AM CDT Inhaled Oxygen Concentration - - Weight 96.7 kg (213 lb 3.2 oz) 07/02/2022 8:30 A M CDT Height 162.6 cm (5' 4 ) 07/02/2022 8:30 AM CDT Body Mass Index 36.6 07/02/2022 8:30 AM CDT documented in this encounter Discharge Instructions * Discharge Instructions* Tyra Sterling RN - 07/02/2022 9:31 AM CDT FOLLOW UP WITH JACQUELYN WOODS N.P. ON JULY 20 ARRIVE AT 0700 AM AT REGISTRATION DESK FOR RE-EVALUATION [place] Interventional Pain Management Discharge Instructions WHAT [...] injection site for 10-20 at a time ever 2-3 hours. After 24 hours you may [...] DOCTOR AND HOW TO REACH US: Call [phone] ext. [phone] for scheduling, insurance questions or speak with [...] PLEASE GO TO THE EMERGENCY ROOM IMMEDIATELY! documented in this encounter Medications at Time of Discharge albuterol sulfate HFA 108 (90 Base) MCG/ACT inhaler Inhale 2 puffs into the lungs every 6 (six) hours as needed for Wheezing. cetirizine 10 MG tablet Take 1 tablet (10 mg total) by mouth daily. Continuous Blood Gluc Sensor (DEXCOM G6 SENSOR) [facility] 2 Continuous Blood Gluc Transmit (DEXCOM G6 TRANSMITTER) [facility] 2 diazePAM 5 MG [...] 0.3 MG IN THE MUSCLE 1 TIME Glucagon (BAQSIMI ONE PACK) 3 MG/DOSE Powder Baqsimi 3 mg/actuation nasal spray USE 1 SPRAY INTO ONE NOSTRIL ONCE DIRECTED FOR LOW BLOOD SUGAR 2 insulin aspart 100 UNIT/ML injection (PEN) Inject into the skin 3 (three) times daily before meals. insulin aspart 100 UNIT/ML injection (VIAL) Inject into the skin 3 (three) times daily before meals. lamoTRIgine 100 MG tablet Take 1 tablet [...] (TOPAMAX) 200 MG tabletIndications:M S (multiple sclerosis) ([facility]/HCC HHS/HCC),Migraine without aura, not intractable, without status migrainosus Take 1 tablet (200 mg total) by mouth 2 (two) times daily. 60 tablet 2 triamcinolone (KENALOG) 0.1 % ointment triamcinolone acetonide 0.1 % topical ointment ADVAIR DISKUS 250-50 MCG/ACT inhaler 2 07/19/19 23 asenapine (SAPHRIS) 5 MG SL tablet 2 07/12/19 23 atogepant (QULIPTA) tabletIndications:M igraine without aura, not intractable, without status migrainosus Take 1 tablet (60 mg total) by mouth daily. 30 tablet 2 07/12/19 23 atogepant (QULIPTA) tabletIndications:M igraine without aura, not intractable, without status migrainosus Take 1 tablet (60 mg total) by mouth daily. 30 tablet 3 07/12/19 23 atorvastatin (LIPITOR) 20 MG tablet atorvastatin 20 mg tablet 07/12/19 23 buPROPion (WELLBUTRIN) 100 MG tablet bupropion HCl 100 mg tablet TAKE 1 TABLET BY MOUTH TWICE DAILY 07/19/19 23 carBAMazepine 200 MG tabletIndications:M S (multiple sclerosis) ([facility]/HCC HHS/HCC),Migraine without aura, not intractable, without status migrainosus Take 0.5 tablets (100 mg total) by mouth 3 (three) times daily. 90 tablet 6 2 12/28/19 23 diazePAM (VALIUM) 5 MG tabletIndications:C ervical radiculopathy Take 3 tabs po 1 hour prior to procedure 3 tablet 2 07/12/19 23 FARXIGA 10 MG Tab 2 08/22/19 24 Insulin Disposable Pump (OMNIPOD DASH PODS, GEN 4,) Misc 2 07/19/19 23 ketorolac (ACULAR LS) 0.4 % ophthalmic solution Apply 1 drop to eye 2 (two) times daily. 07/19/19 23 Nirmatrelvir-Ritona vir (PAXLOVID, 300/100, OR) TAKE 3 TABLETS TOGETHER (TWO 150 MG NIRMATRELVIR TABLETS AND ONE 100 MG RITONAVIR TABLET) BY MOUTH TWICE DAILY FOR 5 DAYS. 3 07/19/19 23 ondansetron (ZOFRAN ODT) 4 MG disintegrating tabletIndications:N ausea Take 1 tablet (4 mg total) by mouth every 8 (eight) hours as needed for Nausea. 20 tablet 11 2 09/09/19 24 ondansetron 8 MG tablet Take by mouth every 8 (eight) hours as needed for Nausea. 07/12/19 23 phentermine (ADIPEX-P) 37.5 MG tablet 2 10/06/19 23 promethazine 6.25 MG/5ML syrupIndications:MS (multiple sclerosis) ([facility] HHS/HCC),Migraine without aura, not intractable, without status migrainosus Take 10 mLs (12.5 mg total) by mouth once as needed for Nausea. 120 mL 5 2 07/12/19 23 propranolol (INDERAL) 20 MG tabletIndications:M S (multiple sclerosis) ([facility] HHS/HCC),Migraine without aura, not intractable, without status migrainosus Take 1 tablet by mouth twice daily 120 tablet 3 08/18/19 23 rimegepant (NURTEC) 75 MG disintegrating tabletIndications:M igraine without aura, not intractable, without status migrainosus Take 1 tablet (75 mg total) by mouth daily as needed for Migraine. 16 tablet 5 2 07/24/19 24 rizatriptan (MAXALT) 10 MG tabletIndications:M S (multiple sclerosis) (CMS/HCC HHS/HCC),Migraine without aura, not intractable, without status migrainosus Take 1 tablet (10 mg total) by mouth as needed for Migraine. May repeat in 2 hours if needed 16 tablet 5 2 07/24/19 24 documented as of this encounter H&P Notes * Ishmael Weston MD - 07/02/2022 9:22 AM CDT Admission Note With PreProc Assess CC: Low back and leg pain HPI: 42 year old female seen as a follow up. Patient last seen for re-eval 05/23/22 Prior to Admission medications Medication Sig Start Date End Date Taking? Authorizing Provider ADVAIR DISKUS 250-50 MCG/ACT inhaler 08/28/21 Yes Doc [facility] albuterol sulfate HFA 108 (90 Base) MCG/ACT inhaler Inhale 2 puffs into the lungs every 6 (six) hours as needed for Wheezing. Yes Doc [facility] atorvastatin (LIPITOR) 20 MG tablet atorvastatin 20 mg tablet Yes Doc [facility] buPROPion (WELLBUTRIN) 100 MG tablet bupropion HCl 100 mg tablet TAKE 1 TABLET BY MOUTH TWICE DAILY Yes Doc [facility] carBAMazepine 200 MG tablet Take 0.5 tablets (100 mg total) by mouth 3 (three) times daily. 08/08/21Yes Presley Hernandez MD cetirizine 10 MG tablet Take 1 tablet (10 mg total) by mouth daily. Yes Doc [facility] Continuous Blood Gluc Sensor (DEXCOM G6 SENSOR) Misc 09/28/21 Yes Doc [facility] diazePAM (VALIUM) 5 MG tablet Take 3 tabs po 1 hour prior to procedure 01/04/22 Yes Ishmael Weston MD diazePAM 5 MG tablet Take 1 tablet (5 mg total) by mouth every 8 (eight) hours as needed for Anxiety. Yes Doc [facility] diphenhydrAMINE 25 MG capsule Take 1 capsule (25 mg total) by mouth every 6 (six) hours as needed for Itching. Yes Doc [facility] doxycycline hyclate 100 MG tablet Take 1 tablet (100 mg total) by mouth daily. on an empty stomach Yes Doc [facility] EPINEPHrine (EPIPEN) 0.3 MG/0.3ML injection Auvi-Q 0.3 mg/0.3 mL injection, auto-injector ADMINISTER 0.3 MG IN THE MUSCLE 1 TIME Yes [facility] FARXIGA 10 MG Tab 09/16/21 Yes [facility] Glucagon (BAQSIMI ONE PACK) 3 MG/DOSE Powder Baqsimi 3 mg/actuation nasal spray USE 1 SPRAY INTO ONE NOSTRIL ONCE DIRECTED FOR LOW BLOOD SUGAR 09/12/21 Yes [facility] insulin aspart 100 UNIT/ML injection (PEN) Inject into the skin 3 (three) times daily before meals.Yes [facility] insulin aspart 100 UNIT/ML injection (VIAL) Inject into the skin 3 (three) times daily before meals. Yes [facility] Insulin Disposable Pump (OMNIPOD DASH PODS, GEN 4,) Misc 09/28/21 Yes [facility] ketorolac (ACULAR LS) 0.4 % ophthalmic solution Apply 1 drop to eye 2 (two) times daily. Yes [facility] lamoTRIgine 100 MG tablet Take 1 tablet (100 mg total) by mouth 2 (two) times daily. Yes [facility] losartan (COZAAR) 50 MG tablet Take 1 tablet (50 mg total) by mouth daily. Yes Doc [facility] montelukast 10 MG tablet Take 1 tablet (10 mg total) by mouth nightly at bedtime. Yes [facility] ondansetron (ZOFRAN ODT) 4 MG disintegrating tablet Take 1 tablet (4 mg total) by mouth every 8 (eight) hours as needed for Nausea. 10/05/21 Yes Presley Hernandez MD ondansetron 8 MG tablet Take by mouth every 8 (eight) hours as needed for Nausea. Yes Doc [facility] pantoprazole EC (PROTONIX) 40 MG tablet Take 1 tablet (40 mg total) by mouth 2 (two) times daily. Yes [facility] phentermine (ADIPEX-P) 37.5 MG tablet 09/16/21 Yes [facility] propranolol (INDERAL) 20 MG tablet Take 1 tablet by mouth twice daily 06/25/22 Yes Presley Hernandez MD rimegepant (NURTEC) 75 MG disintegrating tablet Take 1 tablet (75 mg total) by mouth daily as needed for Migraine. 08/08/21 Yes Presley Hernandez MD rizatriptan (MAXALT) 10 MG tablet Take 1 tablet (10 mg total) by mouth as needed for Migraine. May repeat in 2 hours if needed 08/08/21 Yes Presley Hernandez MD topiramate (TOPAMAX) 200 MG tablet Take 1 tablet (200 mg total) by mouth 2 (two) times daily. 08/08/21 Yes Presley Hernandez MD triamcinolone (KENALOG) 0.1 % ointment triamcinolone acetonide 0.1 % topical ointment Yes Doc [facility] asenapine (SAPHRIS) 5 MG SL tablet 10/11/21 Doc [facility] atogepant (QULIPTA) tablet Take 1 tablet (60 mg total) by mouth daily. Patient taking differently: Take 1 tablet (60 mg total) by mouth daily. PA Not approved yet 11/28/21Presley Hernandez MD Continuous Blood Gluc Transmit (DEXCOM G6 TRANSMITTER) Misc 09/27/21 Doc [facility] promethazine 6.25 MG/5ML syrup Take 10 mLs (12.5 mg total) by mouth once as needed for Nausea. 08/08/21 Presley Hernandez MD Allergies Allergen Reactions Mushroom Extract Complex Anaphylaxis Pecans Anaphylaxis Past Medical History: Diagnosis Date Anxiety disorder, unspecified Asthma COVID 06/02/2022 Depression Diabetes mellitus ([facility]) GERD (gastroesophageal reflux disease) Hypertension [...] no bladder or bowel incontinence PHYSICAL EXAM Filed Vitals: 07/02/22 0830 BP: (!) 140/96 Pulse: 94 Resp: 18 Temp: 97.8 ??F (36.6 ??C) TempSrc: Tympanic SpO2: 100% Weight: 96.7 kg (213 lb 3.2 oz) Height: 5' 4 (1.626 m) General: alert, appears stated age and cooperative Skin: normal and no rash or abnormalities HEENT: neck supple with midline trachea Lungs: no respiratory distress Heart: regular rate and rhythm Abdomen: soft Neuro: No change 05/23/22 ASSESSMENT Lumbar radiculopathy PLAN 42 year old seen as a follow up. We will proceed with bilat L5-S1 transforaminal injections. Risks including, but not limited to infection, permanent neurological deficit due to nerve root injury, bleeding, anaphylaxis, flushing, cerebral spinal fluid leak, paralysis, spinal cord injury, thinning of the skin, thinning of the bones, muscle cramping. documented in this encounter OR Notes * Op Note - Ishmael Weston MD - 07/02/2022 9:33 AM CDT PROCEDURE: LUMBAR TRANSFORAMINAL EPIDURAL STEROID INJECTION UNDER FLUOROSCOPY LEVELS: Bilateral L5-S1 PREOPERATIVE DIAGNOSIS: LUMBAR RADICULOPATHY POSTOPERATIVE DIAGNOSIS: SAME PREOP SURGEON: ISHMAEL WESTON MD RISKS, BENEFITS, ALTERNATE TREATMENTS DISCUSSED. WRITTEN CONSENT OBTAINED. PATIENT TAKEN TO PROCEDURE ROOM PLACED IN PRONE POSITION. PILLOW UNDER ABDOMEN TO REDUCE LUMBAR LORDOSIS. STERILE PREP AND DRAPE OF LUMBOSACRAL SPINE PERFORMED. ASA STANDARD MONITORS APPLIED. Risks including, but not limited to infection, permanent neurological deficit due to nerve root injury, bleeding, anaphylaxis, flushing, cerebral spinal fluid leak, paralysis, spinal cord injury, thinning of the skin, thinning of the bones, muscle cramping. PROCEDURE: VERTEBRAL BODIES WERE SQUARED.. SKIN AND SUBCUTANEOUS TISSUES ANESTHETIZED WITH 1% LIDOCAINE. 22 GAUGE CHIBA NEEDLES WITH BENT TIPS WERE USED. C ARM WAS MOVED TO THE OBLIQUE X RAY VIEW. TARGET FOR L 5-S1 NERVE ROOT IS THE 6 O???CLOCK POSITION OF THE PEDICLE SHADOW IN THE OBLIQUE X RAYVIEW AT THE LEVEL OF L 5-S1 ON THE left and right SIDE. APPROPRIATE NEEDLE TIP POSITION WAS CONFIRMED IN THE AP,OBLIQUE AND LATERAL VIEWS. AFTER NEGATIVE ASPIRATION, 5 CC OF CONTRAST SPLIT BETWEEN THE ABOVE MENTIONED LEVELS WAS INJECTED IN THE LATERAL VIEW CONFIRMING SPREAD IN THE ANTERIOR EPIDURAL SPACE. NEGATIVE ASPIRATION PRIOR TO 5 CC OF CONTRAST INJECTED IN THE AP VIEW CONFIRMING SPREAD ALONG THE APPROPRIATE NERVE ROOTS ALONG WITH EDIDURAL SPREAD. NO INTRAVASCULAR OR INTRATHECAL UPTAKE NOTED. NEGATIVE ASPIRATION PRIOR TO INJECTION OF 4OMG DEPOMEDROL AND 2 CC OF 0.25% BUPIVACAINE INJECTED PER LEVEL. NEEDLES REMOVED. NO COMPLICATIONS. POST PROCEDURE: PATIENT TOLERATED PROCEDURE WELL AND OBSERVED PRIOR TO DISCHARGE. DISCHARGED IN STABLE CONDITION WITH APPROPRIATE POST-PROCEDURE INSTRUCTIONS. documented in this encounter Plan of Treatment Upcoming Encounters Date Type Department Care Team (Late st Contact Info) Description 04/15/2024 1:00 PM DIRECTOR OF PLACEMENT Office Visit [facility] - [address], [address] [place] [phone] Presley Hernandez MD [address] [place] [address] 04/30/2024 10:40 AM DIRECTOR OF PLACEMENT [facility] - [address], [address] [place] [phone] Presley Hernandez MD [address] [place], [place] [address], [place] [address] Scheduled Referrals Name Type Priority Associated Diagnoses Orde r Schedule Ambulatory referral to Physical Therapy Referral Routine Lumbar radiculopathy Ordered: 07/02/2022 documented as of this encounter Procedures Procedure Name Priority Date/Time Associated Diagnosis Comments INJECTION EPIDURAL TRANSFORAMINAL 07/02/2022 9:21 AM CDT Lumbar radiculopathy XR PA[facility] C-[facility] Today 07/02/2022 8:16 AM CDT documented in this encounter Results * XR PAIN CLINIC C-ARM (07/02/2022 8:16 AM CDT) Narrative Radiology, Technologist - 07/02/2022 8:16 AM CDT This report does not contain a radiologist's interpretation. Please review associated procedure and/or operative report. Ishmael Weston MD GENERAL IMAGING Final Result documented in this encounter Visit Diagnoses Diagnosis Lumbar radiculopathy- Primary Thoracic or lumbosacral neuritis or radiculitis, unspecified Lumbar radiculopathy Thoracic or lumbosacral neuritis or radiculitis, unspecified Lumbar radiculopathy Thoracic or lumbosacral neuritis or radiculitis, unspecified documented in this encounter Admitting Diagnoses Diagnosis Lumbar radiculopathy Thoracic or lumbosacral neuritis or radiculitis, unspecified documented in this encounter Administered Medications Inactive Administered Medications - up to 3 most recent administrations Medication Order MAR Action Action Date Dose Rate Site BUpivacaine (PF) (MARCAINE) 0.25 % injection As needed, Starting on Sat07/02/22 at 0930, Until Sat07/02/22 at 0931, Intra-Op Given 07/02/2022 9:30 AM CDT 4 mLs chlorhexidine (PERIDEX) 0.12 % solution 15 mL 15 mL, Mouth/Throat, PRN, Prior to surgery, 1 dose, Starting on Sat07/02/22 at 0817, Until Sat07/02/22 at 1155, Patient to perform oral care first. Swish/Gargle in mouth for 30 seconds, and then discard, prior to going to surgery/ If ventilated use saturated swab to clean oral cavity., Pre-Op diazePAM (VALIUM) tablet 10 mg 10 mg, Oral, Once as needed, Anxiety, 1 dose, Starting on Sat07/02/22 at 0817, Until Sat07/02/22 at 1155, Pre-Op HYDROcodone-acetaminophen (NORCO) 5-325 MG tablet 1 tablet 1 tablet, Oral, Once, 1 dose, On Sat07/02/22 at 0845, Maximum dose of acetaminophen is 4000 mg from all sources in 24 hours. Given 07/02/2022 8:28 AM CDT 1 tablet HYDROcodone-acetaminophen (NORCO) 5-325 MG tablet 1 dose, Starting on Sat07/02/22 at 0825, Until Sat07/02/22 at 0828, Created by cabinet randalide iopamidol (ISOVUE-M 300) 61 % injection As needed, Starting on Sat07/02/22 at 0929, Until Sat07/02/22 at 0931, Intra-Op Given 07/02/2022 9:29 AM CDT 5 mLs Other lidocaine (PF) (XYLOCAINE) 1 % injection As needed, Starting on Sat07/02/22 at 0927, Until Sat07/02/22 at 0931, Intra-Op Given 07/02/2022 9:27 AM CDT 5 mLs Other methylPREDNISolone acetate (DEPO-Medrol) injection As needed, Starting on Sat07/02/22 at 0930, Until Sat07/02/22 at 0931, Intra-Op Given 07/02/2022 9:30 AM CDT 80 mg documented in this encounter Active and Recently Administered Medications Times are shown in CDT. Scheduled Medication Order 06/30/2022 07/01/2022 07/02/2022 HYDROcodone-acetaminophen (NORCO) 5-325 MG tablet 1 tablet (COMPLETED) 1 tablet, Oral, Once, 1 dose, On Sat07/02/22 at 0845, Maximum dose of acetaminophen is 4000 mg from all sources in 24 hours. 0828 (Given - Provid er: Kelly Medeiros RN) PRN Medication Order 06/30/2022 07/01/2022 07/02/2022 BUpivacaine (PF) (MARCAINE) 0.25 % injection (CANCELED) As needed, Starting on Sat07/02/22 at 0930, Until Sat07/02/22 at 0931, Intra-Op 09 (Given - Provid er: Ishmael Weston MD) chlorhexidine (PERIDEX) 0.12 % solution 15 mL 15 mL, Mouth/Throat, PRN, Prior to surgery, 1 dose, Starting on Sat07/02/22 at 0817, Until Sat07/02/22 at 1155, Patient to perform oral care first. Swish/Gargle in mouth for 30 seconds, and then discard, prior to going to surgery/ If ventilated use saturated swab to clean oral cavity., Pre-Op diazePAM (VALIUM) tablet 10 mg 10 mg, Oral, Once as needed, Anxiety, 1 dose, Starting on Sat07/02/22 at 0817, Until Sat07/02/22 at 1155, Pre-Op iopamidol (ISOVUE-M 300) 61 % injection (CANCELED) As needed, Starting on Sat07/02/22 at 0929, Until Sat07/02/22 at 0931, Intra-Op 09 (Given - Provid er: Ishmael Weston MD) lidocaine (PF) (XYLOCAINE) 1 % injection (CANCELED) As needed, Starting on Sat07/02/22 at 0927, Until Sat07/02/22 at 0931, Intra-Op 09 (Given - Provid er: Ishmael Weston MD) methylPREDNISolone acetate (DEPO-Medrol) injection (CANCELED) As needed, Starting on Sat07/02/22 at 0930, Until Sat07/02/22 at 0931, Intra-Op 09 (Given - Provid er: Ishmael Weston MD) documented in this encounter Care Teams Speech Pathologist Relationship Specialty Start Date End Date Deedee Low PA [address] [place] [address] PCP - General PHYSICIAN COFFEE TASTER 07/22/20 documented as of this encounter
--- OUTSIDE RECORDS SUMMARY | 2024-02-24 16:59 | XMS_ITS | Encounter Summary ---
Author Organization [facility] Address [address] [place] [address]. [place], [place] [id number] [place] [address] Care Team Providers Care Religious Educator Name Role Phone Jennifermary Deedee DELMER Primary Care Provider [phone] Encounter Details Date Type Department Care Team (Latest Contact Info) Description 04/11/2022 Travel Social History Tobacco Use Types Packs/Day Years Used Date Smoking Tobacco: Former Cigarettes Smokeless Tobacco: Former Alcohol Use Standard Drinks/Week Comments Yes 0 (1 standard drink = 0.6 oz pur e alcohol) occasionally PHQ-2 Answer Date Recorded Patient Health Questionnaire-2 Score 0 04/11/2022 Comments No Sex and Gender Information Value Date Recorded Sex Assigned at Not on file Legal Sex Female 2:06 PM CDT Gender Identity Not on file Sexual Orientation Not on file COVID-19 Exposure Response Date Recorded In the last 10 days, have yo u been in contact with someone who was confirmed or suspected to have Coronavirus/COVID-19? No / Unsure 04/11/2022 10:30 AM SEASONAL GREENERY BUNDLER documented as of this encounter Plan of Treatment Upcoming Encounters Date Type Department Care Team (Late st Contact Info) Description 04/15/2024 1:00 PM SEASONAL GREENERY BUNDLER Office Visit [facility] - [address], [address] [place] [address] Presley Hernandez MD [address] [place] [address] 04/30/2024 10:40 AM SEASONAL GREENERY BUNDLER Office Visit [facility] - [facility] [address] [facility], [address] [place] [address] Presley Hernandez MD [address] [place] [address] documented as of this encounter Visit Diagnoses Not on filedocumented in this encounter Care Teams Religious Educator Relationship Specialty Start Date End Date Deedee Low PA [address] [place] [address] PCP - General PHYSICIAN GEOSPATIAL APPLICATIONS DEVELOPER 07/22/20 documented as of this encounter
--- OUTSIDE RECORDS SUMMARY | 2024-02-24 16:59 | XMS_ITS | Encounter Summary ---
Author Organization [facility] Address [address] [place] [address]. [place], [place] [address] [place] [address] Care Team Providers Care Patient Financial Representative Name Role Phone Jennifermary Deedee DELMER Primary Care Provider [phone] Encounter Details Date Type Department Care Team (Latest Contact Info) Description 04/11/2022 Scan HEALTH INFO SRVCS Scanned, Doc Med [...] Coronavirus/COVID-19? No / Unsure 04/18/2022 9:01 AM CHANNEL PROCESS SUPERVISOR documented as of this encounter Plan of Treatment Upcoming Encounters Date Type Department Care Team (Late st Contact Info) Description 04/15/2024 1:00 PM CHANNEL PROCESS SUPERVISOR Office Visit [facility] Multispec[facility] - [address], [address] [place] [phone] Presley Hernandez MD [address] [place] [address] 04/30/2024 10:40 AM CHANNEL PROCESS SUPERVISOR Office Visit [facility] - [facility] [address] [facility], [address] [place] [address] Presley Hernandez MD [address] [place] [address] documented as of this encounter Visit Diagnoses Not on filedocumented in this encounter Care Teams Patient Financial Representative Relationship Specialty Start Date End Date Deedee Low PA [address] [place] [address] PCP - General PHYSICIAN ORTHOPEDIC CODER 07/22/20 documented as of this encounter
--- OUTSIDE RECORDS SUMMARY | 2024-02-24 16:59 | XMS_ITS | Encounter Summary ---
Author Organization [facility] Address [address] [place] [address]. [place], [place] [address] [place] [address] Care Team Providers Care Rug Sizer Name Role Phone Deedee Low Primary Care Provider [phone] Reason for Referral * Physical Medicine (Routine) - Closed Specialty Diagnoses / Procedures Referred By Angelita silva Referred To Contact PHYSICAL THERAPY Diagnoses Lumbar radiculopathy Procedures OFFICE/OUTPT VISIT,NEW,LEVL III OFFICE/OUTPT VISIT,NEW,LEVL IV OFFICE/OUTPT VISIT,NEW,LEVL V OFFICE/OUTPT VISIT,EST,LEVL III OFFICE/OUTPT VISIT,EST,LEVL IV OFFICE/OUTPT VISIT,EST,LEVL V Ishmael Weston MD [facility] [address] [place] [address] Phone: tel: fax: Referral ID Status Reason Start Date Expiration Date V isits Requested Visits Authorized [id number] Closed Physical Therapy 07/02/2022 07/03/2023 1 1 Reason for Visit * Auth/Cert (Routine) Specialty Diagnoses / Procedures Referred By Angelita silva Referred To Contact Diagnoses Lumbar radiculopathy lumbar radiculopathy Procedures INJECTION EPIDURAL TRANSFORAMINAL L5-S1 Ishmael Weston MD [facility] [address] [place] [address] Phone: tel: fax: Referral ID Status Reason Start Date Expiration Date Visits Re quested Visits Authorized [id number] 1 1 Encounter Details Date Type Department Care Team (Latest Contact Info) Description 07/02/2022 8:02 AM CDT - 07/02/2022 9:50 AM CDT Hospital Encounter [facility] Interventional Pain Management [place] [address] [id number] Ishmael Weston MD [facility] [address] [place], [place] [id number] Discharge Disposition: Home or Self Care (Routine [...] Sign Reading Time Taken Comments Blood Pressure 141/99 07/02/2022 9:37 AM CDT Pulse 89 07/02/2022 9:37 AM CDT Temperature 36.6 ??C (97.8 ??F) 07/02/2022 8:30 AM CD T Respiratory Rate 20 07/02/2022 9:37 AM CDT Oxygen Saturation 100% 07/02/2022 9:37 AM CDT Inhaled Oxygen Concentration - - [...] 0700 AM AT REGISTRATION DESK FOR RE-EVALUATION [place] Interventional Pain Management Discharge Instructions WHAT [...] DOCTOR AND HOW TO REACH US: Call [phone] for scheduling, insurance questions or speak with [...] Continuous Blood Gluc Sensor (DEXCOM G6 SENSOR) [facility] 2 Continuous Blood Gluc Transmit (DEXCOM G6 TRANSMITTER) [facility] 2 diazePAM 5 MG tablet Take 1 [...] (TOPAMAX) 200 MG tabletIndications:M S (multiple sclerosis) ([facility]/HCC [facility]/HCC),Migraine without aura, not intractable, without status migrainosus Take 1 tablet (200 mg total) by mouth 2 (two) times daily. 60 tablet 6 2 triamcinolone (KENALOG) 0.1 % ointment triamcinolone acetonide 0.1 % topical ointment ADVAIR DISKUS 250-50 MCG/ACT inhaler 2 07/19/19 23 asenapine (SAPHRIS) 5 MG SL tablet 2 07/12/19 23 atogepant (QULIPTA) tabletIndications:M igraine without aura, not intractable, without status migrainosus Take 1 tablet (60 mg total) by mouth daily. 30 tablet 11 2 07/12/19 23 atogepant (QULIPTA) tabletIndications:M igraine without aura, not intractable, without status migrainosus Take 1 tablet (60 mg total) by mouth daily. 30 tablet 11 3 07/12/19 23 atorvastatin (LIPITOR) 20 MG tablet atorvastatin 20 mg tablet 07/12/19 23 buPROPion (WELLBUTRIN) 100 MG tablet bupropion HCl 100 mg tablet TAKE 1 TABLET BY MOUTH TWICE DAILY 07/19/19 23 carBAMazepine 200 MG tabletIndications:M S (multiple sclerosis) ([facility] H[facility]/HCC),Migraine without aura, not intractable, [...] 23 promethazine 6.25 MG/5ML syrupIndications:MS (multiple sclerosis) ([facility] H[facility]/HCC),Migraine without aura, not intractable, without status migrainosus Take 10 mLs (12.5 mg total) by mouth once as needed for Nausea. 120 mL 5 2 07/12/19 23 propranolol (INDERAL) 20 MG tabletIndications:M S (multiple sclerosis) ([facility] HHS/HCC),Migraine without aura, not intractable, [...] (eight) hours as needed for Anxiety. Yes Hemant Daviesea Abstract diphenhydrAMINE 25 MG capsule Take 1 capsule (25 mg total) by mouth every 6 (six) hours as needed for Itching. Yes Hemant Chatterjee Abstract doxycycline hyclate 100 MG tablet Take 1 tablet (100 mg total) by mouth daily. on an empty stomach Yes Hemant Chatterjee Abstract EPINEPHrine (EPIPEN) 0.3 MG/0.3ML injection Auvi-Q 0.3 mg/0.3 mL injection, auto-injector ADMINISTER 0.3 MG IN THE MUSCLE 1 TIME Yes Hemant Chatterjee Abstract FARXIGA 10 MG Tab 09/16/21 Yes Hemant Chatterjee Abstract Glucagon (BAQSIMI ONE PACK) 3 MG/DOSE Powder Baqsimi 3 mg/actuation nasal spray USE 1 SPRAY INTO ONE NOSTRIL ONCE DIRECTED FOR LOW BLOOD SUGAR 09/12/21 Yes Hemant Chatterjee Abstract insulin aspart 100 UNIT/ML injection (PEN) Inject into the skin 3 (three) times daily before meals.Yes Hemant Daviesea Abstract insulin aspart 100 UNIT/ML injection (VIAL) Inject into the skin 3 (three) times daily before meals. Yes Hemant Daviesea Abstract Insulin Disposable Pump (OMNIPOD DASH PODS, GEN 4,) Misc 09/28/21 Yes Hemant Chatterjee Abstract ketorolac (ACULAR LS) 0.4 % ophthalmic solution Apply 1 drop to eye 2 (two) times daily. Yes Hemant Daviesea Abstract lamoTRIgine 100 MG tablet Take 1 tablet (100 mg total) by mouth 2 (two) times daily. Yes Hemant PreveaAbstract losartan (COZAAR) 50 MG tablet Take 1 tablet (50 mg total) by mouth daily. Yes Hemant Prevea Abstract montelukast 10 MG tablet Take [...] (eight) hours as needed for Nausea. Yes Hemant Prevea Abstract pantoprazole EC (PROTONIX) 40 MG tablet Take 1 tablet (40 mg total) by mouth 2 (two) times daily. Yes Doc Prevea Abstract phentermine (ADIPEX-P) 37.5 MG tablet 09/16/21 Yes Doc Prevea Abstract propranolol (INDERAL) 20 MG [...] unspecified Asthma COVID 06/02/2022 Depression Diabetes mellitus (CMS/HCC) GERD (gastroesophageal reflux disease) Hypertension Migraines Past [...] st Contact Info) Description 04/15/2024 1:00 PM RETAIL SUPERVISOR Office Visit [facility] - [address], [address] [place] [address] Presley Hernandez MD [address] [place] [address] 04/30/2024 10:40 AM RETAIL SUPERVISOR Office Visit [facility] - [facility] [address] [facility], [address] [place] [address] Presley Hernandez MD [address] [place] [address] Scheduled Referrals Name Type Priority Associated Diagnoses [...] Until Sat07/02/22 at 0828, Created by cabinet override documented in this encounter Active and Recently [...] at 0930, Until Sat07/02/22 at 0931, Intra-Op 0930 (Given - Provid er: Ishmael Weston MD) [...] at 0929, Until Sat07/02/22 at 0931, Intra-Op 0929 (Given - Provid er: Ishmael Weston MD) lidocaine (PF) (XYLOCAINE) 1 % injection (CANCELED) As needed, Starting on Sat07/02/22 at 0927, Until Sat07/02/22 at 0931, Intra-Op 09 (Given - Provid er: Ishmael Weston MD) methylPREDNISolone acetate (DEPO-Medrol) injection (CANCELED) As needed, Starting on Sat07/02/22 at 0930, Until Sat07/02/22 at 0931, Intra-Op 0930 (Given - Provid er: Ishmael Weston MD) documented in this encounter Care Teams Rug Sizer Relationship Specialty Start Date End Date Deedee Low PA [address] [place] [address] PCP - General PHYSICIAN ENGINE MECHANIC 07/22/20 documented as of this encounter
--- OUTSIDE RECORDS SUMMARY | 2024-02-24 16:59 | XMS_ITS | Encounter Summary ---
Author Organization [facility] Address [address] [place] [address]. [place], [place] [id number] [place] [address] Care Team Providers Care Taxicab Driver Name Role Phone Jennifermary Deedee DELMER Primary Care Provider Encounter Details Date Type Department Care Team (Latest Contact Info) Description 04/18/2022 Scan HEALTH INFO SRVCS Scanned, Doc Med [...] Coronavirus/COVID-19? No / Unsure 04/18/2022 9:01 AM INDUSTRIAL GARAGE SERVICER documented as of this encounter Plan of Treatment Upcoming Encounters Date Type Department Care Team (Late st Contact Info) Description 04/15/2024 1:00 PM INDUSTRIAL GARAGE SERVICER Office Visit [facility] - [address], [address] [place] [id number] Presley Hernandez MD [address] [place] [address] 04/30/2024 10:40 AM INDUSTRIAL GARAGE SERVICER Office Visit [facility] - [facility] [address] [facility], [address] [place] [address] Presley Hernandez MD [address] [place] [address] documented as of this encounter Visit Diagnoses Not on filedocumented in this encounter Care Teams Taxicab Driver Relationship Specialty Start Date End Date Deedee Low PA [address] [place] [address] PCP - General PHYSICIAN AERONAUTICS COMMISSION DIRECTOR 07/22/20 documented as of this encounter
--- OUTSIDE RECORDS SUMMARY | 2024-02-24 16:59 | XMS_ITS | Encounter Summary ---
Author Organization [facility] Address [address] [place] [address]. [place], [place] [id number] [place] [address] Care Team Providers Care Green Chain Puller Name Role Phone Deedee Low Primary Care Provider [phone] Reason for Referral * Physical Medicine (Routine) - Closed Specialty Diagnoses / Procedures Referred By Angelita silva Referred To Contact PHYSICAL THERAPY Diagnoses Lumbar radiculopathy Procedures OFFICE/OUTPT VISIT,NEW,LEVL III OFFICE/OUTPT VISIT,NEW,LEVL IV OFFICE/OUTPT VISIT,NEW,LEVL V OFFICE/OUTPT VISIT,EST,LEVL III OFFICE/OUTPT VISIT,EST,LEVL IV OFFICE/OUTPT VISIT,EST,LEVL V Tania Yang APNP Phone: tel: fax: Referral ID Status Reason Start Date Expiration Date V isits Requested Visits Authorized [id number] Closed Physical Therapy 05/23/2022 05/24/2023 1 1 Reason for Visit * Consultation/Treatment (Routine) - Closed Specialty Diagnoses / Procedures Referred By Angelita silva Referred To Contact NURSE PRACTITIONER / [facility] Pain Management Diagnoses RTN PT, REVAL, LUMBAR, NO BT, [employer] OPEN ACCESS, SCHED 05/23/2022 CW Procedures [place] RE-EVAL Tania Yang APNP Phone: tel: fax: Tania Yang APNP [address] [place] [address] Phone: tel: fax: Referral ID Status Reason Start Date Expiration Date Visits Requested Visits Authorized [id number] Closed Pain Management 05/23/2022 1 1 Encounter Details Date Type Department Care Team (Latest Contact Info) Description 05/23/2022 8:08 AM CDT - 05/23/2022 11:59 PM CDT Hospital Encounter [facility] Interventional Pain Management Center [address] [place], [place] [phone] [id number] Tania Yang APNP [address] [place] [phone] Discharge Disposition: Home or Self Care (Routine [...] Sign Reading Time Taken Comments Blood Pressure 138/92 05/23/2022 8:18 AM CDT Pulse 90 05/23/2022 8:18 AM CDT Temperature 36.5 ??C (97.7 ??F) 05/23/2022 8:18 AM CD T Respiratory Rate 20 05/23/2022 8:18 AM CDT Oxygen Saturation 100% 05/23/2022 8:18 AM CDT Inhaled Oxygen Concentration - - Weight 99.4 kg (219 lb 3.2 oz) 05/23/2022 8:18 A M CDT Height 162.6 cm (5' 4 ) 05/23/2022 8:18 AM CDT Body Mass Index 37.63 05/23/2022 8:18 AM CDT documented in this encounter Medications at Time of Discharge albuterol sulfate HFA 108 (90 Base) MCG/ACT inhaler Inhale 2 puffs into the lungs every 6 (six) hours as needed for Wheezing. cetirizine 10 MG tablet Take 1 tablet (10 mg total) by mouth daily. Continuous Blood Gluc Sensor (DEXCOM G6 SENSOR) [facility] 2 Continuous Blood Gluc Transmit (DEXCOM G6 TRANSMITTER) [facility] [...] (TOPAMAX) 200 MG tabletIndications:M S (multiple sclerosis) ([facility] HHS/HCC),Migraine without aura, not intractable, [...] carBAMazepine 200 MG tabletIndications:M S (multiple sclerosis) ([facility] HHS/HCC),Migraine without aura, not intractable, [...] eye 2 (two) times daily. 07/19/19 23 ondansetron (ZOFRAN ODT) 4 MG disintegrating tabletIndications:N ausea Take 1 tablet (4 mg total) by mouth every 8 (eight) hours as needed for Nausea. 20 tablet 11 2 09/09/19 24 ondansetron 8 MG tablet Take by mouth every 8 (eight) hours as needed for Nausea. 07/12/19 23 phentermine (ADIPEX-P) 37.5 MG tablet 2 10/06/19 23 promethazine 6.25 MG/5ML syrupIndications:MS (multiple sclerosis) ([facility]),Migraine without aura, not intractable, without status migrainosus Take 10 mLs (12.5 mg total) by mouth once as needed for Nausea. 120 mL 2 07/12/19 23 propranolol 20 MG tabletIndications:M S (multiple sclerosis) ([facility] HHS/[facility]),Migraine without aura, not intractable, without status migrainosus Take 1 tablet (20 mg total) by mouth 2 (two) times daily. 60 tablet 6 2 06/26/19 23 rimegepant (NURTEC) 75 MG disintegrating tabletIndications:M igraine without aura, not intractable, without status migrainosus Take 1 tablet (75 mg total) by mouth daily as needed for Migraine. 16 tablet 2 07/24/19 24 rizatriptan (MAXALT) 10 MG tabletIndications:M S (multiple sclerosis) ([facility]),Migraine without aura, not intractable, without status migrainosus Take 1 tablet (10 mg total) by mouth as needed for Migraine. May repeat in 2 hours if needed 16 tablet 2 07/24/19 24 documented as of this encounter H&P Notes * NICO Blandon - 05/23/2022 8:45 AM CDTSummary: Low back pain, radiates to buttocks, right hip, down the post/lat legs, to lateral right fo ot, numbness of lateral left thigh, tingling feet Interventional Pain Management History & Physical Chief Complaint: Low back pain, radiates to buttocks, right hip, down the posterior legs, to lateral right foot, numbness of lateral left thigh, tingling feet HPI: Alannah Ruano is a 42-year-old female who is seen today for reevaluation of low back pain. She is status post bilateral sacroiliac joint injections completed by Dr. Weston on 01/04/2022, and reports about 60% improvement of the back pain. She was last seen in this office on 01/18/2022, underwent C5-6 cervical epidural steroid injection at that time, reports significant improvement, but does states she has begun to notice a return of numbness of her hands, and continues to experience somemid posterior neck pain as well. Her chief complaint today is the low back pain. She says she has been experiencing low back pain, radiates to her buttocks to right hip, down the posterior/lateral legs, to the lateral right foot, with numbness of lateral left thigh, as well as tingling of her feet she denies recent trauma. She rates her pain today as 6 on a 0-to-10 scale, describe the pain as sharp, shooting, cramping, aching. She said her pain increases with all activity and movement, so the pain is at times sharp, but she notices some aching pain with ambulation. She said the pain makes it difficult for her to sleep and get comfortable. She denies urinary or bowel incontinence, denies anesthesia in the saddle region, denies foot drop. She said she has gotten some reduction of pain with application of a heating pad, and said that massager provides some temporary benefit. She says she has been getting some benefit with swimming; however the gym where she had been using the pool has since closed. She says she has been using Tylenol for pain relief. Past Medical History: Diagnosis Date ??? Anxiety disorder, unspecified ??? Asthma ??? Depression ??? Diabetes mellitus (CMS/HCC) ??? GERD (gastroesophageal reflux disease) ??? Hypertension ??? Migraines Past Surgical History: Procedure Laterality Date ??? ADENOIDECTOMY ??? GASTRIC SLEEVE PROCEDURE--P 2020 ??? REVISE ULNAR NERVE AT [place] Left ??? SINUS SURGERY PROC UNLISTED ??? TONSILLECTOMY (Not in a hospital admission) Allergies Allergen Reactions ??? Mushroom Extract Complex Anaphylaxis ??? Pecans Anaphylaxis Social History Socioeconomic History ??? Marital status: Single Spouse name: Not on file ??? Number of children: 0 ??? Years of education: Some college ??? Highest education level: Not on file Occupational History ??? Not on file Tobacco Use ??? Smoking status: Former Types: Cigarettes ??? Smokeless tobacco: Former Vaping Use ??? Vaping Use: Never used Substance and Sexual Activity ??? Alcohol use: Yes Comment: occasionally ??? Drug use: Yes Comment: marijuana cream on elbow ??? Sexual activity: Not on file Other Topics Concern ??? Service Not Asked ??? Blood Transfusions Not Asked ??? Caffeine Concern Not Asked ??? Occupational Exposure Not Asked ??? Hobby Hazards Not Asked ??? Sleep Concern Not Asked ??? Stress Concern Not Asked ??? Weight Concern Not Asked ??? Special Diet Not Asked ??? Back Care Not Asked ??? Exercise Not Asked ??? Bike Helmet Not Asked ??? Seat Belt Not Asked ??? Self-Exams Not Asked ??? Wheelchair Not Asked ??? Walker Not Asked ??? Upper extremity braces/slings Not Asked ??? Lower extermity braces/slings Not Asked ??? Self Care Yes Social History Narrative Lives [...] history on file. Review of Systems Constitutional: Disturbed sleeping habits, said pain makes it difficult for her to get comfortable. HENT: Negative. Eyes: Negative. Respiratory: Negative. Cardiovascular: Negative. Gastrointestinal: Denies incontinence of bowels Endocrine: Negative. Genitourinary: Denies urinary incontinence Musculoskeletal: Low back pain, radiates to her buttocks to right hip, down the posterior/lateral legs, to lateral right foot, with numbness of lateral left thigh, and tingling of her feet. Skin: Negative. Allergic/Immunologic: Negative. Neurological: Numbness of the lateral left thigh, tingling of her feet Hematological: Negative. Psychiatric/Behavioral: Negative. Filed Vitals: 05/23/22 0818 BP: (!) 138/92 Pulse: 90 Resp: 20 Temp: 97.7 ??F (36.5 ??C) TempSrc: Skin SpO2: 100% Weight: 99.4 kg (219 lb 3.2 oz) Height: 5' 4 (1.626 m) She she had an MRI of the lumbar spine on 10/25/2021. Radiologist report was reviewed and is copied below: FINDINGS: There are 5 nonrib-bearing lumbar-type vertebral bodies. The lumbar vertebral bodies and facets are well aligned. The lumbar vertebral body heights are preserved. There is intervertebral disc height loss at L4-5 and to a lesser extent at L5-S1 with endplate degenerative changes at these levels. Hemangioma of L1, normal. The conus medullaris terminates at T12-L1, normal. There is a normal distribution of the cauda equina within the thecal sac. There renal cysts. L1-2: There is no significant spinal canal or neural foraminal stenosis. L2-3: There is no significant spinal canal or neural foraminal stenosis. L3-4: There is no significant spinal canal or neural foraminal stenosis. L4-5: There is no significant spinal canal stenosis. Mild to moderate facet hypertrophy. Mild bilateral neural foraminal stenosis. L5-S1: No significant spinal canal stenosis. Mild facet hypertrophy. Mild left neural foraminal stenosis. No right neural foraminal stenosis. =====IMPRESSION:===== Mild multilevel lumbar spondylosis, as described above. Ordered By: PRESLEY HERNANDEZ Interpreted By: Ciaran Franco MD, 10/25/2021 11:16 AM Physical Exam Body mass index is 37.63 kg/m??. The patient is alert and oriented x 3 and follows directions and answers questions appropriately. Her skin is warm and dry. Mood and affect: Calm, pleasant, and cooperative. General examination of her heart, lungs and abdomen was unremarkable. The patient rises fromthe seated position without difficulty. Her gait is steady. She said that heel and toe walk is difficult for her due to pain to the lateral right foot, so these maneuvers were deferred at this time. No scarring, redness, lesions, or sign of infection noted to the lumbar region. She experiences painto deep palpation across the lumbar facets, as well as pain with facet loading. Tenderness noted topalpation of the lumbar paraspinous muscles, scattered trigger points noted palpation. She also experiences tenderness palpation over the SI joints, as well as across the upper buttocks.. Range of motion of her back is limited with extension, forward flexion and left and right lateral rotation. Right sitting straight leg raise produced pain to the posterior right leg. Motor strength to lower extremities is 5/5 with hip flexion, knee extension and flexion, ankle dorsiflexion, plantar flexion andhallux extension bilaterally. No color change, redness, warmth, edema or discrepancy in calf size noted to the lower extremities. Sensation to palpation of the lower extremities is equal and intact bilaterally. No clonus and downgoing Babinski's bilaterally. Patellar and achilles reflexes are dimini shed bilaterally. Dorsalis pedis pulses are +2 bilaterally. Capillary refill of the lower extremities is less than 3 seconds bilaterally. Impression: Lumbar radiculopathy Recommendations: I spent 40 minutes today reviewing the patient's medical record, obtaining history, performing an exam, ordering medications, tests, and/or procedures, documenting in the medical record, referring and/or communicating with other health care providers, counseling and educating the patient, reviewingand communicating test results and coordinating careDianne has been experiencing low back pain, radiates to her buttocks to right hip, down the posterior/lateral legs, to lateral right foot, with numbness of lateral left thigh, and tingling of her feet. We discussed a bilateral L5-S1 lumbar transforaminal epidural steroid as a treatment option. The procedure was described in detail as were the risks, benefits and alternative treatments, and she verbalized understanding. Risks including, but not limited to infection, elevations in blood glucose levels, permanent neurological deficit due to nerve root injury, bleeding, anaphylaxis, flushing, cerebral spinal fluid leak, paralysis, spinal cord inju ry, thinning of the skin, thinning of the bones, muscle cramping, were reviewed with her and she verbalized understanding. She is agreeable to a plan to move forward with the lumbar transforaminal epidural steroid procedure, which will be completed by Dr. Weston at her next office visit. She does report some pain to the mid posterior neck, as well as return of the numbness of her hands as well, we did discuss potential for C4-5 versus C5-6 cervical epidural steroid injection as future treatmentoptions. She will be provided with a referral for PT/aquatherapy, which will be forwarded to [facility]. NICO BLANDON CC: Presley Hernandez MD Cosigned by Lidia Weston MD at 06/01/2022 10:06 AM CDT documented in this encounter Plan of Treatment Upcoming Encounters Date Type Department Care Team (Late st Contact Info) Description 04/15/2024 1:00 PM DUST COLLECTOR ORE CRUSHING Office Visit [facility] - [address], [address] [place] [id number] Presley Hernandez MD [address] [place] [address] 04/30/2024 10:40 AM DUST COLLECTOR ORE CRUSHING Office Visit [facility] - [address], [address] [place] [address] Presley Hernandez MD [address] [place] [address] Scheduled Referrals Name Type Priority Associated Diagnoses Orde r Schedule Ambulatory referral to Physical Therapy Referral Routine Lumbar radiculopathy Ordered: 05/23/2022 documented as of this encounter Visit Diagnoses Diagnosis Lumbar radiculopathy- Primary Thoracic or lumbosacral neuritis or radiculitis, unspecified documented in this encounter Care Teams Green Chain Puller Relationship Specialty Start Date End Date Deedee Low PA [address] [place] [address] PCP - General PHYSICIAN LEGAL ADVISER 07/22/20 documented as of this encounter
--- OUTSIDE RECORDS SUMMARY | 2024-02-24 16:59 | XMS_ITS | Encounter Summary ---
Author Organization [facility] Address [address] [place] [address]. [place], [place] [address] [place] [address] Care Team Providers Care Human Resources Technician Name Role Phone Jennifermary Deedee DOWELL Primary Care Provider [phone] Reason for Visit * Reason Onset Date Comments Follow Up 05/24/2022 Encounter Details Date Type Department Care Team (Late st Contact Info) Description 05/24/2022 Telephone [facility] Interventional [place] [address] [id number] Tyra Sterling RN Follow Up Social History Tobacco Use Types [...] as of this encounter Progress Notes * Tyra Sterling RN - 05/24/2022 8:22 AM CDT PHYSICAL THERAPY REFERRAL ORDER AND INFO FAXED TO [facility] [place] [phone] documented in this encounter Plan of Treatment Upcoming Encounters Date Type Department Care Team (Late st Contact Info) Description 04/15/2024 1:00 PM MATERIAL HANDLER 1ST SHIFT Office Visit [facility] 3 [facility], [address] [place] [address] Presley Hernandez MD 3 [place] [address] 04/30/2024 10:40 AM MATERIAL HANDLER 1ST SHIFT Office Visit [facility] 3 [facility], [address] [place] [address] Presley Hernandez MD [address] [place] [address] documented as of this encounter Visit Diagnoses Not on filedocumented in this encounter Care Teams Human Resources Technician Relationship Specialty Start Date End Date Deedee Low PA [address] [place] [address] PCP - General PHYSICIAN REPLANTER 07/22/20 documented as of this encounter
--- OUTSIDE RECORDS SUMMARY | 2024-02-24 16:59 | XMS_ITS | Encounter Summary ---
Author Organization [facility] Address [address] [place] [address]. [place], [place] [address] [place] [address] Care Team Providers Care Special Education Secretary Name Role Phone Deedee Low Primary Care Provider [phone] Reason for Visit * Reason Comments Botox * Treatment/Therapy Plan Authorization (Routine) - Closed Specialty Diagnoses / Procedures Referred By Angelita silva Referred To Contact Diagnoses Chronic migraine without aura Spasmodic torticollis Procedures BOTULINUM TOXIN A PER UNIT Presley Hernandez MD [address] [place] [address] Phone: tel: fax: [facility] - [address], [address] [place] [address] Phone: tel: Referral ID Status Reason Start Date Expiration Date Visits Re quested Visits Authorized [id number] Closed 01/08/2022 01/07/2023 4 4 Encounter Details Date Type Department Care Team (Late st Contact Info) Description 07/11/2022 1:40 PM CDT Office Visit [address], [address] [place] [address] Presley Hernandez MD 3 [place] [address] Botox Social History Tobacco Use Types Packs/Day [...] PM CDT documented as of this encounter Last Filed Vital Signs Vital Sign Reading Time Taken Comments Blood Pressure 161/104 07/11/2022 2:19 PM CDT Pulse 81 07/11/2022 1:53 PM CDT Temperature 36.9 ??C (98.5 ??F) 07/11/2022 1:53 PM CD T Respiratory Rate - - Oxygen Saturation 98% 07/11/2022 1:53 PM CDT Inhaled Oxygen Concentration - - Weight 95.1 kg (209 lb 11.2 oz) 07/11/2022 1:53 PM CDT Height 162.6 cm (5' 4 ) 07/11/2022 1:53 PM CDT Body Mass Index 35.99 07/11/2022 1:53 PM CDT documented in this encounter Progress Notes * Meghan Meyer MA - 07/11/2022 1:40 PM CDTAddended by: MEGHAN MEYER on: 07/12/2022 10:04 AM Modules accepted: Orders * Presley Hernandez MD - 07/11/2022 1:40 PM CDT Botox treatment cycle number:??4 Botox side effect:?None?? Medication effect lasted for:??80% in 2.5 months?? Lot type:?Buy and bill Wastage:??45 ? Botox Injection Procedure Informed consent: signed by patient.? Confirmed: patient, procedure, safety procedures followed.? Preparation: no contraindications noted to Botox, sterile preparation of site in usual fashion.? Procedure tolerated: well.? Complications: none.? Indication : Chronic Migraines ? The patient was explained about the benefits and the possible side effects associated with Botox injections. The patient vocalized understanding and agreed to proceed with the injections. ?? After the patient was prepped in a sterile manner, Botox was administered at 31 different sites andthe total amount of Botox administered was 155 units. PREEMPT protocol was followed for the administration. ?? Per PREMPT protocol, patient was injected with??botox??- 155 units at 31 different sites. ?? A. Woods Manager : 10 Units divided in 2 sites B. Procerus?: 5 Units in one site C. Frontalis : 20 units divided in 4 sites D. Temporalis : 40 Units divided between 8 sites E. Occipitalis : 30 Units divided between 6 sites F. Cervical??Paraspinals??: 20 Units divided between 4 sites G. Trapezius : 30 Units divided in 6 sites ?? Patient tolerated the procedure very well. There is very minimal blood loss during this procedure. There were no immediate post procedure??complications. I educated the patient about the nature of the therapy, the usual therapeutic onset of the drug andthe duration of efficacy and also about the common side effects to watch out for. ?? Return to neurology clinic 3 months documented in this encounter Plan of Treatment Upcoming Encounters Date Type Department Care Team (Late st Contact Info) Description 04/15/2024 1:00 PM AIR CONDITIONING MECHANIC Office Visit [facility] Mult[facility]pecialty Care - [address], [address] [place] [address] Presley Hernandez MD [address] [place] [address] 04/30/2024 10:40 AM AIR CONDITIONING MECHANIC Office Visit [facility] - [facility] 3 [facility], [address] [place] [address] Presley Hernandez MD 3 [place] [address] Scheduled Orders Name Type Priority Associated Diagnoses Orde r Schedule CHEMODENERVATION MUSCLE INNERVTD, BILAT Procedures Routine Chronic migraine w/o aura, not intractable, w stat migr Ordered: 07/11/2022 documented as of this encounter Visit Diagnoses Diagnosis Chronic migraine w/o aura, not intractable, w stat migr- Primary Spasmodic torticollis Trigeminal neuralgia Chronic migraine without aura Chronic migraine without aura, without mention of intractable migraine without mention of status migrainosus documented in this encounter Administered Medications Inactive Administered Medications - up to 3 most recent administrations Medication Order MAR Action Action Date Dose Rate Site onabotulinumtoxinA (BOTOX) injection 210 Units 210 Units, Intramuscular, Once, 1 dose, On Mariaelena 07/12/22 at 1030Indications:Spasmodic torticollis,Trigeminal neuralgia,Chronic migraine without aura Given 07/11/2022 1:40 PM CDT 210 Units Other documented in this encounter Care Teams Special Education Secretary Relationship Specialty Start Date End Date Deedee Low PA [address] [place] [address] PCP - General PHYSICIAN CHEESE TESTER 07/22/20 documented as of this encounter
--- OUTSIDE RECORDS SUMMARY | 2024-02-24 16:59 | XMS_ITS | Encounter Summary ---
Author Organization [facility] Address [address] [place] [address]. [place] [address] [place] [address] Care Team Providers Care Catalogue Maker Name Role Phone Deedee Low Primary Care Provider [phone] Reason for Visit * Reason Onset Date Comments Medication Information 02/27/2022 Encounter Details Date Type Department Care Team (Late st Contact Info) Description 02/27/2022 Telephone [facility] Mult[facility]ty [facility] - [facility] 3 [facility], [address] [place] [address] Presley Hernandez MD 3 [place], [place] [phone] Medication Information Social History Tobacco Use Types Packs/Day Years Used Date Smoking Tobacco: Former Cigarettes Smokeless Tobacco: Former Alcohol Use Standard Drinks/Week Comments Yes 0 (1 standard drink = 0.6 oz pur e alcohol) occasionally PHQ-2 Answer Date Recorded PHQ-2 Score - If the patient scores above 3, please move on to questions 3-9 0 01/17/2022 Comments No Sex and Gender Information Value Date Recorded Sex Assigned at Not on file Legal Sex Female 2:06 PM CDT Gender Identity Not on file Sexual Orientation Not on file documented as of this encounter Progress Notes * Francis Gifford - 02/27/2022 9:59 AM CST Milind carbone [facility] called regarding the Pt medication. Call transferred to [place] OLOGIC MODELER documented in this encounter Plan of Treatment Upcoming Encounters Date Type Department Care Team (Late st Contact Info) Description 04/15/2024 1:00 PM HYDROLOGIC MODELER Office Visit [facility] 3 [facility], [address] [place] [address] Presley Hernandez MD [address] [place] [address] 04/30/2024 10:40 AM HYDROLOGIC MODELER Office Visit [facility] 3 [facility], [address] [place] [address] Presley Hernandez MD [address] [place] [address] documented as of this encounter Visit Diagnoses Not on filedocumented in this encounter Care Teams Catalogue Maker Relationship Specialty Start Date End Date Deeede Low PA [address] [place] [address] PCP - General PHYSICIAN FAN BLADE TRUER 07/22/20 documented as of this encounter
--- OUTSIDE RECORDS SUMMARY | 2024-02-24 16:59 | XMS_ITS | Encounter Summary ---
Author Organization [facility] Address [address] [place] [address]. [place], [place] [address] [place] [address] Care Team Providers Care Supervisor Riveting Name Role Phone Jennifermary Deedee DELMER Primary Care Provider [phone] Encounter Details Date Type Department Care Team (Latest Contact Info) Description 05/23/2022 Travel Social History Tobacco Use Types Packs/Day [...] st Contact Info) Description 04/15/2024 1:00 PM FLOOR COVERING INSTALLER Office Visit [facility] Multispecialty Care - [address], [address] [place] [address] Presley Hernandez MD 3 [place] [address] 04/30/2024 10:40 AM FLOOR COVERING INSTALLER Office Visit [facility] Mult[facility]pec[facility]ty Care - [facility] 3 [facility], [address] [place] [address] Presley Hernandez MD 3 [place] [address] documented as of this encounter Visit Diagnoses Not on filedocumented in this encounter Care Teams Supervisor Riveting Relationship Specialty Start Date End Date Deedee Low PA [address] [place] [address] PCP - General PHYSICIAN MORNING BABYSITTER 07/22/20 documented as of this encounter
--- OUTSIDE RECORDS SUMMARY | 2024-02-24 16:59 | XMS_ITS | Encounter Summary ---
Author Organization [facility] Address [address] [place] [address]. [place], [place] [address] [place] [address] Care Team Providers Care It Engineer Name Role Phone Deedee Low Primary Care Provider [phone] Reason for Visit * Reason Comments Botox * Injection (Routine) - Closed Specialty Diagnoses / Procedures Referred By Angelita silva Referred To Contact Diagnoses Chronic migraine without aura, not intractable, without status migrainosus Trigeminal neuralgia Spasmodic torticollis chronic migraines--200 units trigeminal neuralgia--50 units Procedures BOTOX Presley Hernandez MD [address] [place] [address] Phone: tel: fax: Presley Hernandez MD [address] [place] [address] Phone: tel: fax: Referral ID Status Reason Start Date Expiration Date Visits Re quested Visits Authorized [id number] Closed 01/07/2022 01/08/2023 8 8 Encounter Details Date Type Department Care Team (Late st Contact Info) Description 04/11/2022 10:20 AM SHEAR HELPER Office Visit [facility] Multispecialty Care - [address], [address] [place] [address] Presley Hernandez MD [address] [place] [address] Botox Social History Tobacco Use Types Packs/Day [...] Coronavirus/COVID-19? No / Unsure 04/11/2022 10:30 AM SHEAR HELPER documented as of this encounter Last Filed Vital Signs Vital Sign Reading Time Taken Comments Blood Pressure 132/87 04/11/2022 10:42 AM SHEAR HELPER Pulse 84 04/11/2022 10:42 AM SHEAR HELPER Temperature 37.4 ??C (99.3 ??F) 04/11/2022 10:[address] Respiratory Rate 18 04/11/2022 10:42 AM SHEAR HELPER Oxygen Saturation 98% 04/11/2022 10:42 AM SHEAR HELPER Inhaled Oxygen Concentration - - Weight 97.3 kg (214 lb 6.4 oz) 04/11/2022 10:42 AM SHEAR HELPER Height 162.6 cm (5' 4 ) 04/11/2022 10:42 AM SHEAR HELPER Body Mass Index 36.8 04/11/2022 10:42 AM SHEAR HELPER documented in this encounter Progress Notes * Presley Hernandez MD - 04/11/2022 10:20 AM CST Botox treatment cycle number:??3 Botox side effect:?None?? Medication effect lasted for:??80% [...] units at 31 different sites. ?? A. Tobacco Drummer : 10 Units divided in 2 sites [...] ?? Return to neurology clinic 3 months R HELPER documented in this encounter Plan of Treatment Upcoming Encounters Date Type Department Care Team (Late st Contact Info) Description 04/15/2024 1:00 PM SHEAR HELPER Office Visit [facility] 3 [facility], [address] [place] [address] Presley Hernandez MD 3 [place] [address] 04/30/2024 10:40 AM SHEAR HELPER [facility] 3 [facility], [address] [place] [address] Presley Hernandez MD 3 [place] [address] Scheduled Orders Name Type Priority Associated Diagnoses Orde r Schedule CHEMODENERVATION MUSCLE INNERVTD, BILAT Procedures Routine Chronic migraine w/o aura w/o status migrainosus, not intractable Ordered: 04/11/2022 documented as of this encounter Visit Diagnoses Diagnosis Chronic migraine w/o aura w/o status migrainosus, not intractable- Primary Chronic migraine without aura, without mention of intractable migraine without mention of status migrainosus documented in this encounter Administered Medications Inactive Administered Medications - up to 3 most recent administrations Medication Order MAR Action Action Date Dose Rate Site botulinum toxin type A (BOTOX) injection 145 Units 145 Units, Intramuscular, Once, 1 dose, On Sat04/11/22 at 2030Indications:Chronic migraine w/o aura w/o status migrainosus, not intractable Given 04/11/2022 10:20 AM SHEAR HELPER 155 Units Other documented in this encounter Care Teams It Engineer Relationship Specialty Start Date End Date Deedee Low PA [address] [place] [address] PCP - General PHYSICIAN CAPACITY PLANNING ANALYST 07/22/20 documented as of this encounter
--- OUTSIDE RECORDS SUMMARY | 2024-02-24 16:59 | XMS_ITS | Encounter Summary ---
Author Organization [facility] Address [address] [place] [address]. [place], [place] [address] [place] [address] Care Team Providers Care Construction Worker Name Role Phone Deedee Low Primary Care Provider [phone] Encounter Details Date Type Department Care Team (Latest Contact Info) Description 02/23/2022 Scan HEALTH INFO SRVCS Scanned, Doc Med [...] st Contact Info) Description 04/15/2024 1:00 PM DEPUTY CHIEF COUNSEL Office Visit [facility] Multispecialty Care - [facility] 3 [facility], [address] [place] [address] Presley Hernandez MD 3 [place] [address] 04/30/2024 10:40 AM DEPUTY CHIEF COUNSEL Office Visit [facility] Mult[facility]pec[facility] - [facility] 3 [facility], [address] [place] [address] Presley Hernandez MD 3 [place] [address] documented as of this encounter Visit Diagnoses Not on filedocumented in this encounter Care Teams Construction Worker Relationship Specialty Start Date End Date Deedee Low PA [address] [place] [address] PCP - General PHYSICIAN HOSPICE ENTRANCE ATTENDANT 07/22/20 documented as of this encounter
--- OUTSIDE RECORDS SUMMARY | 2024-02-24 16:59 | XMS_ITS | Encounter Summary ---
Author Organization [facility] Address [address] [place] [address]. [place], [place] [address] [place] [address] Care Team Providers Care Grain Inspector Name Role Phone JennifermaryDeedee Primary Care Provider [phone] Reason for Visit * Reason Onset Date Comments Follow Up 01/24/2022 Encounter Details Date Type Department Care Team (Late st Contact Info) Description 01/24/2022 Telephone [facility] Interventional Pain [place] [address] [id number] Tyra Sterling RN Follow Up Social History [...] suspected to have Coronavirus/COVID-19? No / Unsure 01/17/2022 9:02 AM ENVIRONMENTAL HEALTH PHYSICIAN documented as of this encounter Progress Notes * Tyra Sterling RN - 01/24/2022 9:06 AM CST SHE LEFT MESSAGE ON RN LINE. SHE SAID SHE HAS SIJ 01/04/22. SHE GOT 60% RELIEF MOSTLY ON LT SIDE. RT SIDE STILL QUITE A BIT OF PAIN AND NUMBNESS MOST OF THE TIME AND RT FOOT. CONSIDERABLY DIFFERENT THAN IT WAS BEFORE INJECTION. SHE ISN'T TAKING ANY PAIN MEDS JUST TYLENOL/MOTRIN ONCE IN AWHILE. NOT ANY PHYSICAL THERAPY BEFORE OR AFTER INJECTION. RONMENTAL HEALTH PHYSICIAN documented in this encounter Plan of Treatment Upcoming Encounters Date Type Department Care Team (Late st Contact Info) Description 04/15/2024 1:00 PM ENVIRONMENTAL HEALTH PHYSICIAN Office Visit [facility] - [address], [address] [place] [address] Presley Hernandez MD [address] [place] [address] 04/30/2024 10:40 AM ENVIRONMENTAL HEALTH PHYSICIAN Office Visit [facility] - [address], [address] [place] [address] Presley Hernandez MD [address] [place] [address] documented as of this encounter Visit Diagnoses Not on filedocumented in this encounter Care Teams Grain Inspector Relationship Specialty Start Date End Date Deedee Low PA [address] [place] [address] PCP - General PHYSICIAN LUMBER YARD WORKER 07/22/20 documented as of this encounter
--- OUTSIDE RECORDS SUMMARY | 2024-02-24 16:59 | XMS_ITS | Encounter Summary ---
Author Organization [facility] Address [address] [place] [address]. [place] [address] [place] [address] Care Team Providers Care Director Global Development Name Role Phone Deedee Low Primary Care Provider [phone] Encounter Details Date Type Department Care Team (Late st Contact Info) Description 06/25/2022 Therapy Plan [facility] - [address] [place] [address] Presley Hernandez MD [address] [place] [address] Social History Tobacco Use Types Packs/Day Years [...] of this encounter Progress Notes * Michelle Meyer RN - 06/25/2022 3:29 PM CDTAddended by: MICHELLE MEYER on: 12/14/2022 07:58 AM Modules accepted: Orders documented in this encounter Plan of Treatment Upcoming Encounters Date Type Department Care Team (Late st Contact Info) Description 04/15/2024 1:00 PM CAMPUS SAFETY OFFICER [facility] 3 [facility], [address] [place] [address] Presley Hernandez MD [address] [place] [address] 04/30/2024 10:40 AM CAMPUS SAFETY OFFICER Office Visit [facility] 3 [facility], [address] [place] [address] Presley Hernandez MD [address] [place] [address] documented as of this encounter Visit Diagnoses Not on filedocumented in this encounter Care Teams Director Global Development Relationship Specialty Start Date End Date Deedee Low PA [address] [place] [address] PCP - General PHYSICIAN PAINT SUPERVISOR 07/22/20 documented as of this encounter
--- OUTSIDE RECORDS SUMMARY | 2024-02-24 17:00 | XMS_ITS | Encounter Summary ---
Author Organization [facility] Address [address] [place] [address]. [place], [place] [address] [place] [address] Care Team Providers Care Neon Sign Erector Name Role Phone Deedee Low Primary Care Provider [phone] Reason for Referral * Imaging (Routine) - Closed Specialty Diagnoses / Procedures Referred By Angelita silva Referred To Contact RADIOLOGY Diagnoses Essential hypertension, malignant Procedures USV ABD PEL OR RETRO DUPLEX COMP Deedee Low PA [address] [facility] [address] [place] [address] Phone: tel: fax: Referral ID Status Reason Start Date Expiration Date Visits Re quested Visits Authorized [id number] Closed 11/29/2021 12/30/2022 1 1 Reason for Visit * Imaging (Routine) - Closed Specialty Diagnoses / Procedures Referred By Angelita silva Referred To Contact RADIOLOGY Diagnoses Essential hypertension, malignant Procedures USV ABD PEL OR RETRO DUPLEX COMP Deedee Low PA [address] [facility] [address] [place] [address] Phone: tel: fax: Referral ID Status Reason Start Date Expiration Date Visits Re quested Visits Authorized [id number] Closed 11/29/2021 12/30/2022 1 1 Encounter Details Date Type Department Care Team (Latest Contact Info) Description 01/02/2022 7:00 AM CDT - 01/02/2022 11:59 PM CDT Hospital Encounter [facility] [address] [facility] [place] [address] Deedee Low PA [address] [place] [address] Discharge Disposition: Home or Self Care (Routine Discharge) Social History Tobacco Use Types Packs/Day Years Used Date Smoking Tobacco: Former Cigarettes Smokeless Tobacco: Never Alcohol Use Standard Drinks/Week Comments Yes 0 (1 standard drink = 0.6 oz pur e alcohol) occasionally PHQ-2 Answer Date Recorded PHQ-2 Score - If the patient scores above 3, please move on to questions 3-9 2 10/04/2021 Comments No Sex and Gender Information Value Date Recorded Sex Assigned at Not on file Legal Sex Female 2:06 PM CDT Gender Identity Not on file Sexual Orientation Not on file COVID-19 Exposure Response Date Recorded In the last 10 days, have yo u been in contact with someone who was confirmed or suspected to have Coronavirus/COVID-19? No / Unsure 01/02/2022 7:23 AM CDT documented as of this encounter Medications at Time of Discharge albuterol sulfate HFA 108 (90 Base) MCG/ACT inhaler Inhale 2 puffs into the lungs every 6 (six) hours as needed for Wheezing. cetirizine 10 MG tablet Take 1 tablet (10 mg total) by mouth daily. Continuous Blood Gluc Sensor (DEXCOM G6 SENSOR) [facility] [place] Continuous Blood Gluc Transmit (DEXCOM G6 TRANSMITTER) [facility] [place] diazePAM 5 MG tablet Take 1 [...] (TOPAMAX) 200 MG tabletIndications:M S (multiple sclerosis) ([facility]/HCC HHS/HCC),Migraine without aura, not intractable, without status [...] daily. 30 tablet 11 2 07/12/19 23 atorvastatin (LIPITOR) 20 MG tablet [...] eye 2 (two) times daily. 07/19/19 23 ketorolac 0.4 % ophthalmic solution 1 drop 4 (four) times daily. 01/19/20 22 ondansetron (ZOFRAN ODT) 4 MG disintegrating tabletIndications:N ausea Take 1 tablet (4 mg total) by mouth every 8 (eight) hours as needed for Nausea. 20 tablet 11 2 09/09/19 24 ondansetron 8 MG tablet Take by mouth every 8 (eight) hours as needed for Nausea. 07/12/19 23 phentermine (ADIPEX-P) 37.5 MG tablet 2 10/06/19 23 promethazine 6.25 MG/5ML syrupIndications:MS (multiple sclerosis) ([facility] HHS/HCC),Migraine without aura, not intractable, without status migrainosus Take 10 mLs (12.5 mg total) by mouth once as needed for Nausea. 120 mL 5 2 07/12/19 23 propranolol 20 MG tabletIndications:M S (multiple sclerosis) ([facility] HHS/HCC),Migraine without aura, not intractable, [...] (MAXALT) 10 MG tabletIndications:M S (multiple sclerosis) ([facility]),Migraine without aura, not intractable, without status migrainosus Take 1 tablet (10 mg total) by mouth as needed for Migraine. May repeat in 2 hours if needed 16 tablet 5 2 07/24/19 24 documented as of this encounter Plan of Treatment Upcoming Encounters Date Type Department Care Team (Late st Contact Info) Description 04/15/2024 1:00 PM TECH INTERN Office Visit [facility] - [address], [address] [place] [phone] Presley Hernandez MD [address] [place] [address] 04/30/2024 10:40 AM TECH INTERN Office Visit [facility] - [facility] [address] [facility], [address] [place] [phone] Presley Hernandez MD [address] [place] [address] documented as of this encounter Procedures Procedure Name Priority Date/Time Associated Diagnosis Comments USV ABD PEL OR RETRO DUPLEX COMP Routine 01/02/2022 7:59 AM CDT Essential hypertension, malignant documented in this encounter Results * USV ABD PEL OR RETRO DUPLEX COMP (01/02/2022 7:59 AM CDT) Anatomical Region Laterality Modality NA Vascular Ultraso und 01/02/2022 7:30 AM CDT Narrative 01/03/2022 9:15 PM CDT ?RENAL-MESENTERIC DUPLEX IMAGING ? VASCULAR LAB Pat.Name: ??JUANA RUANO ?? Pat.ID: ?[id number] ? St.Date: ?? 01/02/2022 ?Exam Time: 7:30:00 AM ? Study Type:ELOINA VS Renal Mesenteric Duplex JERRICA ??Age: ??1980,41Y ? Sex: ? FEMALE ?Sonogrphr: Jose Murguia, RVS ? Pat. Stat.:Outpatient ? History / Clinical:HTN; PMH- xtob, HTN, DM, obese, no prior Procedures: Azar scale, Color Doppler imaging, Doppler Spectral Analysis Race: ?W ? ++++++++++++++++++++++++++++++++++++ SUMMARY: ++++++++++++++++++++++++++++++++++++ Herbert Renal artery Stenosis Criteria: ? < 60% = PSV >180 with RAR <3.5; ? >60% = PSV >180 with RAR >3.5; ? (RI >.80 = abnormal, kidney dz.) Right renal artery no evident narrowing, normal velocity, with RAR 1.66 . ??RI 0.57, with kidney length within normal range. There is a defined 5.07 x 3.14 cm right renal hypoechoic, fluid collection or mass noted. ?? There is a defined 0.84 cm right renal calcification noted. ?? Left renal artery no evident narrowing, normal velocity, with RAR 1.11 . ??RI 0.63, with kidney length within normal range. Renal veins are patent bilaterally. ??Aorta no evident narrowing, triphasic. CONCLUSION: Bilateral renal artery stenosis <60% with good kidney preservation bilaterally. ? ++++++++++++++++++++++++++++++++++++ FINDINGS: ++++++++++++++++++++++++++++++++++++ ++++++++++++++++++++++++++++++++++++ MEASUREMENTS: ++++++++++++++++++++++++++++++++++++ ? AO-ILIAC Left Kidney ?? Kidney Size ? 13 cm ? Right Kidney ?? Kidney Size ? 13.6 cm ?RENAL ART Right Origin ?? Origin PSV ? 105 cm/s ? Right Prox ?? Prox PSV ? 188 cm/s ? Right Mid ?? Mid PSV ?111 cm/s ? Right Distal ?? Distal PSV ?86.7 cm/s ? Right RAR ?? RAR PSV ? 1.66 ? Left Origin ?? Origin PSV ?70.2 cm/s ? Left Prox ?? Prox PSV ? 125 cm/s ? Left Mid ?? Mid PSV ?122 cm/s ? Left Distal ?? Distal PSV ?79.9 cm/s ? Left RAR ?? RAR PSV ? 1.11 ?PARENCHYMA Left Lower Pole Segmental Artery ?? Lower Pole Segm ??0.63 ? Left Upper Pole Segmental Artery ?? Upper Pole Segm ??0.58 ? Right Lower Pole Segmental Artery ?? Lower Pole Segm ?? 0.5 ? Right Upper Pole Segmental Artery ?? Upper Pole Segm ??0.57 ?DOPPLER Supra AO ?? Supra AO PSV ? 113 cm/s ? Signed 01/03/2022 09:15 PM Ciaran Vinson M.D. Procedure Note Ciaran Vinson MD - 01/03/2022 RENAL-MESENTERIC DUPLEX IMAGING VASCULAR LAB Pat.Name: JUANA RUANO Pat.ID: [id number] St.Date: 01/02/2022 Exam Time: 7:30:00 AM Study Type:ELOINA VS Renal Mesenteric Duplex JERRICA Age: 1 1980,41Y Sex: FEMALE Sonogrphr: ZEV Sandoval Pat. Stat.:Outpatient History / Clinical:HTN; PMH- xtob, HTN, DM, obese, no prior Procedures: Azar scale, Color Doppler imaging, Doppler Spectral Analysis Race: W ++++++++++++++++++++++++++++++++++++ SUMMARY: ++++++++++++++++++++++++++++++++++++ Herbert Renal artery Stenosis Criteria: < 60% = PSV >180 with RAR <3.5; >60% = PSV >180 with RAR >3.5; (RI >.80 = abnormal, kidney dz.) Right renal artery no evident narrowing, normal velocity, with RAR 1.66 . RI 0.57, with kidney length within normal range. There is a defined 5.07 x 3.14 cm right renal hypoechoic, fluid collection or mass noted. There is a defined 0.84 cm right renal calcification noted. Left renal artery no evident narrowing, normal velocity, with RAR 1.11 . RI 0.63, with kidney length within normal range. Renal veins are patent bilaterally. Aorta no evident narrowing, triphasic. CONCLUSION: Bilateral renal artery stenosis <60% with good kidney preservation bilaterally. ++++++++++++++++++++++++++++++++++++ FINDINGS: ++++++++++++++++++++++++++++++++++++ ++++++++++++++++++++++++++++++++++++ MEASUREMENTS: ++++++++++++++++++++++++++++++++++++ AO-ILIAC Left Kidney Kidney Size 13 cm Right Kidney Kidney Size 13.6 cm RENAL ART Right Origin Origin PSV 105 cm/s Right Prox Prox PSV 188 cm/s Right Mid Mid PSV 111 cm/s Right Distal Distal PSV 86.7 cm/s Right RAR RAR PSV 1.66 Left Origin Origin PSV 70.2 cm/s Left Prox Prox PSV 125 cm/s Left Mid Mid PSV 122 cm/s Left Distal Distal PSV 79.9 cm/s Left RAR RAR PSV 1.11 PARENCHYMA Left Lower Pole Segmental Artery Lower Pole Segm 0.63 Left Upper Pole Segmental Artery Upper Pole Segm 0.58 Right Lower Pole Segmental Artery Lower Pole Segm 0.5 Right Upper Pole Segmental Artery Upper Pole Segm 0.57 DOPPLER Supra AO Supra AO PSV 113 cm/s Signed 01/03/2022 09:15 PM Ciaran Vinson M.D. us Deedee DOWELL VASC Final Result documented in this encounter Visit Diagnoses Diagnosis Essential hypertension, malignant documented in this encounter Care Teams Neon Sign Erector Relationship Specialty Start Date End Date Deedee Low PA [address] [place] [address] PCP - General PHYSICIAN RETAIL BUSINESS DEVELOPMENT MANAGER 07/22/20 documented as of this encounter
--- OUTSIDE RECORDS SUMMARY | 2024-02-24 17:00 | XMS_ITS | Encounter Summary ---
Author Organization [facility] Address [address] [place] [address]. [place], [place] [address] [place] [address] Care Team Providers Care Community Theater Actor Name Role Phone Deedee Low Primary Care Provider [phone] Encounter Details Date Type Department Care Team (Latest Contact Info) Description 12/07/2021 Travel Social History Tobacco Use Types Packs/Day [...] suspected to have Coronavirus/COVID-19? No / Unsure 12/07/2021 12:16 PM CDT documented as of this encounter Plan of Treatment Upcoming Encounters Date Type Department Care Team (Late st Contact Info) Description 04/15/2024 1:00 PM PROCESS TRAINER Office Visit [facility] - [address], [address] [place] [address] Presley Hernandez MD [address] [place] [address] 04/30/2024 10:40 AM PROCESS TRAINER Office Visit [facility] - [address], [address] [place] [address] Presley Hernandez MD [address] [place] [address] documented as of this encounter Visit Diagnoses Not on filedocumented in this encounter Care Teams Community Theater Actor Relationship Specialty Start Date End Date Deedee Low PA [address] [place] [address] PCP - General PHYSICIAN BREAK AND LOAD OPERATOR 07/22/20 documented as of this encounter
--- OUTSIDE RECORDS SUMMARY | 2024-02-24 17:00 | XMS_ITS | Encounter Summary ---
Author Organization [facility] Address [address] [place] [address]. [place], [place] [address] [place] [address] Care Team Providers Care District Gauger Name Role Phone Deedee Low Primary Care Provider [phone] Encounter Details Date Type Department Care Team (Latest Contact Info) Description 01/10/2022 Travel Social History Tobacco Use Types Packs/Day Years Used Date Smoking Tobacco: Former Cigarettes Smokeless Tobacco: Former Alcohol Use Standard Drinks/Week Comments Yes 0 (1 standard drink = 0.6 oz pur e alcohol) occasionally PHQ-2 Answer Date Recorded PHQ-2 Score - If the patient scores above 3, please move on to questions 3-9 0 01/10/2022 Comments No Sex and Gender Information Value Date Recorded Sex Assigned at Not on file Legal Sex Female 2:06 PM CDT Gender Identity Not on file Sexual Orientation Not on file COVID-19 Exposure Response Date Recorded In the last 10 days, have yo u been in contact with someone who was confirmed or suspected to have Coronavirus/COVID-19? No / Unsure 01/10/2022 10:46 AM CDT documented as of this encounter Plan of Treatment Upcoming Encounters Date Type Department Care Team (Late st Contact Info) Description 04/15/2024 1:00 PM SUGAR HOUSE SUPERVISOR Office Visit [facility] - [address], [address] [place] [address] Presley Hernandez MD [address] [place] [address] 04/30/2024 10:40 AM SUGAR HOUSE SUPERVISOR Office Visit [facility] - [address], [address] [place] [address] Prseley Hernandez MD [address] [place] [address] documented as of this encounter Visit Diagnoses Not on filedocumented in this encounter Care Teams District Gauger Relationship Specialty Start Date End Date Deedee Low PA [address] [place] [address] PCP - General PHYSICIAN MONITORING TECH 07/22/20 documented as of this encounter
--- OUTSIDE RECORDS SUMMARY | 2024-02-24 17:00 | XMS_ITS | Encounter Summary ---
Author Organization [facility] Address [address] [place] [address]. [place] [address] [place] [address] Care Team Providers Care Hydraulic Chair Assembler Name Role Phone Deedee Low Primary Care Provider [phone] Encounter Details Date Type Department Care Team (Latest Contact Info) Description 10/26/2021 11:54 AM CDT - 10/26/2021 11:59 PM CDT Hospital Encounter [facility] [place] [address] Presley Hernandez MD [address] [place] [address] Discharge Disposition: Home or Self Care (Routine [...] suspected to have Coronavirus/COVID-19? No / Unsure 10/26/2021 11:54 AM CDT documented as of this encounter Medications at Time of Discharge albuterol sulfate HFA 108 (90 Base) MCG/ACT inhaler Inhale 2 puffs into the lungs every 6 (six) hours as needed for Wheezing. cetirizine 10 MG tablet Take 1 tablet (10 mg total) by mouth daily. Continuous Blood Gluc Sensor (DEXCOM G6 SENSOR) [facility] 09/28/2021 Continuous Blood Gluc Transmit (DEXCOM G6 TRANSMITTER) [facility] 09/27/2021 diazePAM 5 MG tablet Take 1 tablet (5 mg total) by mouth every 8 (eight) hours as needed for Anxiety. diphenhydrAMINE 25 MG capsule Take 1 capsule (25 mg total) by mouth every 6 (six) hours as needed for Itching. doxycycline hyclate 100 MG tablet Take 1 tablet (100 mg total) by mouth daily. on an empty stomach Glucagon (BAQSIMI ONE PACK) 3 MG/DOSE Powder Baqsimi 3 mg/actuation nasal spray USE 1 SPRAY INTO ONE NOSTRIL ONCE DIRECTED FOR LOW BLOOD SUGAR 09/12/2021 insulin aspart 100 UNIT/ML injection (PEN) Inject into the skin 3 (three) times daily before meals. insulin aspart 100 UNIT/ML injection (VIAL) Inject into the skin 3 (three) times daily before meals. lamoTRIgine 100 MG tablet Take 1 tablet (100 mg total) by mouth 2 (two) times daily. montelukast 10 MG tablet Take 1 tablet (10 mg total) by mouth nightly at bedtime. topiramate (TOPAMAX) 200 MG tabletIndications:MS (multiple sclerosis) (CMS/HCC HHS/HCC),Migraine without aura, not intractable, without status migrainosus Take 1 tablet (200 mg total) by mouth 2 (two) times daily. 60 tablet 6 08/08/2021 ADVAIR DISKUS 250-50 MCG/ACT inhaler 08/28/2021 3 asenapine (SAPHRIS) 5 MG SL tablet 10/11/2021 3 atogepant (QULIPTA) tabletIndications:Mi graine without aura, not intractable, without status migrainosus Take 1 tablet (60 mg total) by mouth daily. 30 tablet 11 11/28/2021 3 buPROPion SR 100 MG 12 hr tablet Take 100 mg by mouth 2 (two) times daily. 2 carBAMazepine 200 MG tabletIndications:MS (multiple sclerosis) ([facility] HHS/HCC),Migraine without aura, not intractable, without status migrainosus Take 0.5 tablets (100 mg total) by mouth 3 (three) times daily. 90 tablet 6 08/08/2021 3 FARXIGA 10 MG Tab 09/16/2021 02 4 Insulin Disposable Pump (OMNIPOD DASH PODS, GEN 4,) Misc 09/28/2021 3 ketorolac 0.4 % ophthalmic solution 1 drop 4 (four) times daily. 2 lamoTRIgine (LAMICTAL) 100 MG tablet Take 100 mg by mouth daily. 05/29/2021 2 lisinopril 20 MG tablet Take 20 mg by mouth daily. 06/16/2021 2 ondansetron (ZOFRAN ODT) 4 MG disintegrating tabletIndications:Na usea Take 1 tablet (4 mg total) by mouth every 8 (eight) hours as needed for Nausea. 20 tablet 11 10/05/2021 4 ondansetron 8 MG tablet Take by mouth every 8 (eight) hours as needed for Nausea. 3 pantoprazole EC 40 MG tablet Take 40 mg by mouth every 12 (twelve) hours. 2 phentermine (ADIPEX-P) 37.5 MG tablet 09/16/2021 3 promethazine 6.25 MG/5ML syrupIndications:MS (multiple sclerosis) ([facility] HHS/HCC),Migraine without aura, not intractable, without status migrainosus Take 10 mLs (12.5 mg total) by mouth once as needed for Nausea. 120 mL 5 08/08/2021 3 propranolol 20 MG tabletIndications:MS (multiple sclerosis) ([facility] HHS/HCC),Migraine without aura, not intractable, without status migrainosus Take 1 tablet (20 mg total) by mouth 2 (two) times daily. 60 tablet 6 08/08/2021 3 rimegepant (NURTEC) 75 MG disintegrating tabletIndications:Mi graine without aura, not intractable, without status migrainosus Take 1 tablet (75 mg total) by mouth daily as needed for Migraine. 16 tablet 5 08/08/2021 4 rizatriptan (MAXALT) 10 MG tabletIndications:MS (multiple sclerosis) (CMS/HCC HHS/HCC),Migraine without aura, not intractable, without status migrainosus Take 1 tablet (10 mg total) by mouth as needed for Migraine. May repeat in 2 hours if needed 16 tablet 5 08/08/2021 4 ziprasidone 20 MG capsule Take 60 mg by mouth daily. 2 documented as of this encounter Procedure Notes * Presley Hernandez MD - 10/26/2021 12:00 PM CDTAssociated Order(s): EEG AWAKE OR DROWSY ROUTINE EEG REPORT Type of EEG study: Extended EEG with video (>60min). Requesting Provider: Dr Hernandez Date of Study: 10/26/2021 Reason for EEG: seizures Technical Description and EEG Findings This is a 21-channel EEG recording utilizing the standard international 10-20 electrode placement along with additional electrodes to monitor eye movements; a single ECG channel was also utilized to record ECG. Bipolar and referential montages were utilized for analysis. EEG description: Awake: In the waking state, a continuous generalized medium-amplitude mixed- frequency background was noted; a symmetric posterior dominant rhythm of 10 Hz was recorded in the occipital regions bilaterally. The posterior dominant rhythm attenuated with eye opening and enhanced with eye closure. Drowsiness: There was waxing and waning of posterior dominant rhythm with appearance of diffuse synchronous and asynchronous theta-alpha activity during drowsiness. Provocative maneuvers: Hyperventilation: Hyperventilation for 3 minutes Provocative Maneuvers Hyperventilation: did not produce any significant change Photic stimulation: Intermittent photic stimulation produced Provocative maneuvers photic stimulation: symmetrical bi-occipital response ECG: Single ECG channel showed regular cardiac rhythm. Impression/Clinical Correlation This extended EEG (>60) recorded in awake and drowsy states is normal. Of note, a normal EEG does not rule out seizure/epilepsy. documented in this encounter Plan of Treatment Upcoming Encounters Date Type Department Care Team (Late st Contact Info) Description 04/15/2024 1:00 PM HEALTH AND SAFETY MANAGER Office Visit [facility] [address] [facility], [address] [place] [phone] Presley Hernandez MD [address] [place] [address] 04/30/2024 10:40 AM HEALTH AND SAFETY MANAGER Office Visit [facility] [address] [facility], [address] [place] [phone] Presley Hernandez MD [address] [place] [address] documented as of this encounter Procedures Procedure Name Priority Date/Time Associated Diagnosis Comments EEG AWAKE OR DROWSY ROUTINE Routine 10/26/2021 3:47 PM CDT Alteration of awareness EEG AWAKE OR DROWSY ROUTINE Routine 10/26/2021 12:00 PM CDT Alteration of awareness documented in this encounter Results * EEG awake or drowsy routine (10/26/2021 12:00 PM CDT) Narrative [facility] - 10/26/2021 12:00 PM CDT Presley Hernandez MD ? 10/26/2021 ??2:41 PM EEG REPORT Type of EEG study: Extended EEG with video (>60min). Requesting Provider: Dr Hernandez Date of Study: 10/26/2021 Reason for EEG: ?? seizures Technical Description and EEG Findings This is a 21-channel EEG recording utilizing the standard international 10-20 electrode placement along with additional electrodes to monitor eye movements; a single ECG channel was also utilized to record ECG. Bipolar and referential montages were utilized for analysis. EEG description: Awake: In the waking state, a continuous generalized medium-amplitude mixed-frequency background was noted; a symmetric posterior dominant rhythm of 10 Hz was recorded in the occipital regions bilaterally. The posterior dominant rhythm attenuated with eye opening and enhanced with eye closure. Drowsiness: ??There was waxing and waning of posterior dominant rhythm with appearance of diffuse synchronous and asynchronous theta-alpha activity during drowsiness. Provocative maneuvers: Hyperventilation: Hyperventilation for 3 minutes Provocative Maneuvers Hyperventilation: did not produce any significant change Photic stimulation: Intermittent photic stimulation produced Provocative maneuvers photic stimulation: symmetrical bi-occipital response ECG: Single ECG channel showed regular cardiac rhythm. Impression/Clinical Correlation This extended EEG (>60) recorded in awake and drowsy states is normal. Of note, a normal EEG does not rule out seizure/epilepsy. us Presley Hernandez MD NEUROLOGY ORDERABLES Sarah l Result [facility] [address] [place] [address], documented in this encounter Visit Diagnoses Diagnosis Alteration of awareness documented in this encounter Care Teams Hydraulic Chair Assembler Relationship Specialty Start Date End Date Deedee Low PA [address] [place] [address] PCP - General PHYSICIAN MEXICAN FOOD MAKER 07/22/20 documented as of this encounter
--- OUTSIDE RECORDS SUMMARY | 2024-02-24 17:00 | XMS_ITS | Encounter Summary ---
Author Organization [facility] Address [address] [place] [address]. [place] [address] [place] [address] Care Team Providers Care Photovoltaic Power Systems Engineer Name Role Phone Jenniefrmary Deedee DOWELL Primary Care Provider [phone] Reason for Visit * Reason Onset Date Comments Results 10/26/2021 Encounter Details Date Type Department Care Team (Late st Contact Info) Description 10/26/2021 Telephone [facility] Mult[facility]ty [facility] - [facility] [address] [facility], [address] [place] [phone] Presley Hernandez MD [address] [place], [place] [id number] Results Social History Tobacco Use Types Packs/Day [...] as of this encounter Progress Notes * Baylee Keen MA - 10/26/2021 3:11 PM CDT Spoke with pt about result. Pt verbalized understanding. * Baylee Keen MA - 10/26/2021 3:11 PM CDT ----- Message from Presley Hernandez MD sent at 10/26/2021 2:42 PM CDT ----- Please let her know eeg was normal documented in this encounter Plan of Treatment Upcoming Encounters Date Type Department Care Team (Late st Contact Info) Description 04/15/2024 1:00 PM RIP SAWYER [facility] [address], [address] [place] [phone] Presley Hernandez MD [address] [place] [phone] 04/30/2024 10:40 AM RIP SAWYER [facility] [address] [facility], [address] [place] [phone] Presley Hernandez MD [address] [place] [phone] documented as of this encounter Visit Diagnoses Not on filedocumented in this encounter Care Teams Photovoltaic Power Systems Engineer Relationship Specialty Start Date End Date Deedee Low PA [address] [place] [address] PCP - General PHYSICIAN WHITE SPOOLER 07/22/20 documented as of this encounter
--- OUTSIDE RECORDS SUMMARY | 2024-02-24 17:00 | XMS_ITS | Encounter Summary ---
Author Organization [facility] Address [address] [place] [address]. [place], [place] [address] [place] [address] Care Team Providers Care Manager Php Name Role Phone Deedee Low Primary Care Provider [phone] Reason for Referral * Surgical (Routine) - Closed Specialty Diagnoses / Procedures Referred By Angelita silva Referred To Contact Procedures Case request operating room: BLOCK SACROILIAC JOINT Tania Yang APNP Phone: tel: fax: Referral ID Status Reason Start Date Expiration Date Visits Re quested Visits Authorized [id number] Closed 11/01/2021 11/01/2022 1 1 Encounter Details Date Type Department Care Team (Late st Contact Info) Description 11/01/2021 Prep for Procedure [facility] [place] [address] [id number] Tania Yang APNP [address] [place] [phone] Social History Tobacco Use Types Packs/Day Years [...] suspected to have Coronavirus/COVID-19? No / Unsure 11/01/2021 7:48 AM CDT documented as of this encounter Plan of Treatment Upcoming Encounters Date Type Department Care Team (Late st Contact Info) Description 04/15/2024 1:00 PM FAN ENGINE ENGINEER Office Visit [facility] - [address], [address] [place] [address] Presley Hernandez MD [address] [place] [address] 04/30/2024 10:40 AM FAN ENGINE ENGINEER Office Visit [facility] - [address], [address] [place] [address] Presley Hernandez MD [address] [place] [address] Scheduled Orders Name Type Priority Associated Diagnoses Orde r Schedule Case request operating room: BLOCK SACROILIAC JOINT Case Request Routine Once for 1 Occurrences starting 11/01/2021 until 11/01/2021 documented as of this encounter Visit Diagnoses Not on filedocumented in this encounter Care Teams Manager Php Relationship Specialty Start Date End Date Deedee Low PA [address] [place] [address] PCP - General PHYSICIAN PERSONAL LINES SALES EXECUTIVE 07/22/20 documented as of this encounter
--- OUTSIDE RECORDS SUMMARY | 2024-02-24 17:00 | XMS_ITS | Encounter Summary ---
Author Organization [facility] Address [address] [place] [address]. [place], [place] [phone] [place] [address] Care Team Providers Care Diploma Pharmacy Technician Name Role Phone Deedee Low Primary Care Provider [phone] Reason for Visit * Auth/Cert Specialty Diagnoses / Procedures Referred By Angelita silva Referred To Contact Diagnoses sacroiliitis Procedures BLOCK SACROILIAC JOINT Lidia Weston MD [facility] [address] [place] [address] Phone: tel: fax: Referral ID Status Reason Start Date Expiration Date Visits Re quested Visits Authorized [id number] 1 1 Encounter Details Date Type Department Care Team (Late st Contact Info) Description 01/04/2022 9:00 AM CDT - 01/04/2022 9:20 AM CDT Surgery [facility] Interventional [place] [address] [id number] Lidia Weston MD [facility] [address] [place] [phone] BLOCK SACROILIAC JOINT Surgery Details Date/Time Status Location OR Service Patient Class Case Class Case Type Trauma Case? 01/04/2022 9:00 AM Posted [facility] Pain Proc Rm Pain Medicine Short Stay/Outpa tient Surgery No Panel 1 Procedure LRB Anes Op Region Wound Class Comments BLOCK SACROILIAC JOINT Bilateral Local Back Clean RTN PT BILAT SI INJ 01/04/22 PT IS REQUESTING ORAL PAIN PILL TO HELP WITH ANXIETY. 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 No / Unsure 01/04/2022 8:07 AM CDT documented as of this encounter Last Filed Vital Signs Vital Sign Reading Time Taken Comments Blood Pressure 152/99 01/04/2022 8:59 AM CDT Pulse 79 01/04/2022 8:59 AM CDT Temperature 36.8 ??C (98.3 ??F) 01/04/2022 8:59 AM CD T Respiratory Rate 18 01/04/2022 8:59 AM CDT Oxygen Saturation 100% 01/04/2022 8:59 AM CDT Inhaled Oxygen Concentration - - Weight 98.2 kg (216 lb 6.4 oz) 01/04/2022 8:36 A M CDT Height 162.6 cm (5' 4 ) 01/04/2022 8:36 AM CDT Body Mass Index 37.14 01/04/2022 8:36 AM CDT documented in this encounter Discharge Instructions * Discharge Instructions* Kaylan Toribio RN - 01/04/2022 9:51 AM CDT [place] Interventional [facility] Management Discharge Instructions You are scheduled for cervical injections . On January 18. Please arrive at registration desk [id number] AM. . Please arrive in outpatient registration at 7:55 AM . Please bring a responsible adult with you for your appointment along with someone who will drive you home. Please do not eat or drink anything for 4 hours prior to your appointment. Please shower the morning of your procedure to help prevent infection. Please take your medications as prescribed with sips of water. WHAT TO DO TODAY: Limit your activity [...] DOCTOR AND HOW TO REACH US: Call [phone] ext. [phone] for scheduling, insurance questions or speak with [...] Continuous Blood Gluc Sensor (DEXCOM G6 SENSOR) [facility] 2 Continuous Blood Gluc Transmit (DEXCOM G6 TRANSMITTER) [facility] 2 diazePAM 5 MG tablet Take 1 [...] 23 promethazine 6.25 MG/5ML syrupIndications:MS (multiple sclerosis) ([facility] HHS/HCC),Migraine without aura, not intractable, without status migrainosus Take 10 mLs (12.5 mg total) by mouth once as needed for Nausea. 120 mL 5 2 07/12/19 23 propranolol 20 MG tabletIndications:M S (multiple sclerosis) ([facility] HHS/HCC),Migraine without aura, not intractable, [...] (MAXALT) 10 MG tabletIndications:M S (multiple sclerosis) ([facility]),Migraine without aura, not intractable, without status migrainosus Take 1 tablet (10 mg total) by mouth as needed for Migraine. May repeat in 2 hours if needed 16 tablet 5 2 07/24/19 24 documented as of this encounter H&P Notes * Lidia Weston MD - 01/04/2022 9:00 AM CDT HISTORY AND PHYSICAL INTERVAL NOTE: I have reviewed Alannah Ruano History & Physical which was performed within the past 30 days. After examining Alannah Ruano, no change has occurred in the patient's condition since the H&P was completed. Informed Consent Discussion: Risks, benefits, alternatives as well as the consequences of not performing the surgery/procedure were discussed with the patient and/or family/personal account development representative. Questions were answered and the patient/family/personal account development representative verbalized understanding and desires to proceed. Previous Adverse Experience with Sedation, Analgesia, or Anesthesia? No Risk benefits and alternate treatments were discussed. Signed: LIDIA WESTON MD 9:20 AM Source Note - NICO Blandon - 12/07/2021 1:00 PM CDT Summary: Neck pain that radiates across her posterior shoulders and down her arms to her hands Interventional Pain Management History & Physical Referring Provider: Presley Hernandez MD Chief Complaint: Neck pain that radiates across her posterior shoulders and down her arms to her hands HPI: Alannah Ruano is a right hand dominant 41-year-old female who has is seen today as referred by Presley Hernandez MD for cervical radiculopathy. She was last seen in this office for evaluation of low back pain on 11/01/2021, and was diagnosed with sacroiliitis, and does plan to proceed withthe SI joint injection procedure to be completed by Dr. Weston. She presents today with neck pain that radiates across her posterior shoulders and down her arms to her hands. She said that she has had chronic neck pain and migraine headaches that began gradually. She also mentions some pain to the base of her palms, to the bones of her wrist, said that she receives daytime caregiver and does receive wrist injections. She does mention she is status post left ulnar nerve transposition completed by Dr. Dunbar in 2012. She also said that she underwent evaluation last week in the emergency room formigraine headache with elevation in blood pressure and heart rate. She has been receiving Botox injections, completed by Dr. Hernandez, said today has undergone 1 Botox injection procedure. She rates her pain today as 6 on a 0 to 10 scale, with an overlap to 4-5 on a 0-to-10 scale pain level, worst pain being 9 on a 0-to-10 scale, least pain being 2 on a 0-to-10 scale. She describes the pain as dull, achy, moderate, constant, intermittent, about the same over time. Associated symptoms includes numbness of her hands. She also reports nausea and vomiting, says she notices this in conjunctionwith migraines and particularly when she first lies down in bed at night. She denies urinary or bowel incontinence, denies anesthesia the saddle region. She said her pain is worsened with standing, weather changes, stress and fatigue. 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 She does report some relief of pain with lying down, massage, relaxation, application of heat and medications. Previous treatments: She has undergone physical therapy in the past at [place]. She has tried application of cold and heat, said has benefited from the heat. She receives daytime caregiver with [facility] in [place], [place]. She has tried TENS. She has tried [place], Toradol, Tylenol for pain relief. Past Medical History: [...] file Tobacco Use ??? Smoking status: Former Smoker Types: Cigarettes ??? Smokeless tobacco: Never Used Vaping Use ??? Vaping Use: Never used [...] Eyes: Negative. Respiratory: Negative. Cardiovascular: Negative. Gastrointestinal: She reports some nausea and vomiting in conjunction with migraines, says she notices particularly when she first lies in bed at night. She denies incontinence of bowels. Endocrine: Negative. Genitourinary: Negative. Denies urinary incontinence. Musculoskeletal: Neck pain that radiates across her posterior shoulders and down her arms to her hands. Low back pain. Skin: Negative. Allergic/Immunologic: Negative. Neurological: Migraine headaches, follows for management of the headaches with Dr. Hernandez. She says she hastoday undergone one Botox injection procedure. Numbness of her hands. Hematological: Negative. Psychiatric/Behavioral: Negative. Filed Vitals: 12/07/21 1253 BP: (!) 140/92 Pulse: 88 Resp: 20 Temp: 98 ??F (36.7 ??C) TempSrc: Skin SpO2: 99% Weight: 95.7 kg (211 lb) Height: 5' 4 (1.626 m) Diagnostic Workup: [...] AM Physical Exam Body mass index is 36.22 kg/m??. The patient is alert and oriented x 3, and follows directions and answers questions appropriately. Skin is warm and dry. Mood and affect: Calm, pleasant, and cooperative. General examination of her heart lungs and abdomen was unremarkable. No scarring, redness, discoloration or sign of infection noted to the cervical region or shoulders. A tattoo is present to theposterior left shoulder, which is well approximated with no sign of infection. Marked tenderness isnoted to palpation of the left and right occiput. She experiences tenderness palpation of the cervical paraspinous and thoracic paraspinous muscles, scattered trigger points are noted to palpation. No pain to palpation of the scapulae, or shoulder joint lines, but does report tenderness to palpation across the left and right clavicle. No lymphadenopathy noted to palpation. Range of motion of her neck is limited with extension, forward flexion, left lateral rotation, right lateral rotation. Negative Spurling's. Negative Weiss's sign. No cervical adenopathy noted to palpation. Range of motionof the upper extremities is within normal limits with abduction, reaching posteriorly toward the cervical and thoracic spine, with elbow flexion extension. Motor strength to the upper extremities is 5/5 with shoulder shrug, abduction, elbow extension and flexion, lift off test, fourdrinier tender and finger abduc tion. No color changes, redness, warmth, edema is present to the upper extremities. Triceps, biceps, and brachiaradialis reflexes are 2/4 bilaterally. She reports numbness of her hands. Radial pulsesare +2 bilaterally. Capillary refill of the upper extremities is less than 3 seconds bilaterally. Impression: Cervical radiculopathy Recommendations: I spent 35 minutes today reviewing the patient's medical record, obtaining history, performing an exam, ordering medications, tests, and/or procedures, documenting in the medical record, counseling and educating the patient/family/caregiver, reviewing and communicating test results and coordinationof care. She has been experiencing neck pain that radiates across her posterior shoulders and down her arms to her hands. We discussed a C5-6 cervical epidural steroid Inj as a treatment option. The procedure was described in detail as were the benefits and risks, and she voiced understanding. Risks including, but not limited to infection, permanent neurological deficit due to nerve root injury, bleeding, anaphylaxis, flushing, elevations in blood glucose levels, increased urinary frequency, cerebral spinal fluid leak, paralysis, spinal cord injury, thinning of the skin, thinning of the bones, muscle cramping were reviewed with her and she verbalized understanding. She is agreeable to a plan to move forward with the cervical epidural steroid Inj injection procedure, which will be completed by Dr. Weston. The cervical epidural and SI joint injection procedures will be completed by Dr. Weston in separate sessions. It was my pleasure to participate in her care. Thank you for referring this very pleasant patient. NICO BLANDON CC: Presley Hernandez MD Cosigned by Lidia Weston MD at 12/08/2021 12:15 PM CDT documented in this encounter OR Notes * Op Note - Lidia Weston MD - 01/04/2022 9:44 AM CDT PROCEDURE: bilateral SACROILIAC JOINT INJECTION UNDER FLUOROSCOPY PREOPERATIVE DIAGNOSIS: SACRAL ILIAC JOINT INFLAMMATION POSTOPERATIVE DIAGNOSIS: SAME PREOP SURGEON: LIDIA WESTON MD CHIEF COMPLAINT: LOW BACK PAIN RISKS, BENEFITS, ALTERNATE TREATMENTS DISCUSSED. WRITTEN CONSENT OBTAINED. PATIENT TAKEN TO PROCEDURE ROOM PLACED IN PRONE POSITION. PILLOW UNDER ABDOMEN TO REDUCE LUMBAR LORDOSIS.. STERILE PREP AND DRAPE OF LUMBOSACRAL SPINE PERFORMED. ASA STANDARD MONITORS APPLIED. Risks including, but not limited to infection, permanent neurological deficit due to nerve root injury, bleeding, anaphylaxis, flushing, cerebral spinal fluid leak, paralysis, spinal cord injury, thinning of the skin, thinning of the bones, muscle cramping. VERTEBRAL BODIES WERE SQUARED. SKIN AND SUBCUTANEOUS TISSUES ANESTHETIZED WITH 1% LIDOCAINE. OPTIMAL VIEW OF THE bilateral SACROILIAC JOINT WAS OBTAINED. THE POSTERIOR INFERIOR ASPECT OF THE JOINT WAS IDENTIFIED. USING A 22 GAUGE 3.5 INCH SPINAL NEEDLE WITH A BENT TIP WAS USED TO UNDER THE MEDIAL INFERIOR ASPECTS OF THE JOINT. NEEDLE TIP POSITION WAS CONFIRMED IN AP, OBLIQUE AND LATERAL VIEWS. NEGATIVE ASPIRATION PRIOR TO 2 CC OF CONTRAST INJECTED OUTLINING THE APPROPRIATE SACROLIAC JOINT. NEGATIVE ASPIRATION PRIOR TO INJECTING 2 CC OF 0.75% BUPIVACAINE AND 40MG OF KENALOG. NO COMPLICATIONS. POST PROCEDURE: PATIENT TOLERATED PROCEDURE WELL AND OBSERVED PRIOR TO DISCHARGE. DISCHARGED IN STABLE CONDITION WITH APPROPRIATE POST-PROCEDURE INSTRUCTIONS. documented in this encounter Plan of Treatment Upcoming Encounters Date Type Department Care Team (Late st Contact Info) Description 04/15/2024 1:00 PM TIRE INSPECTOR [facility] [address] [facility], [address] [place] [phone] Presley Hernandez MD [address] [place] [phone] 04/30/2024 10:40 AM TIRE INSPECTOR [facility] [address] [facility], [address] [place] [phone] Presley Hernandez MD [address] [place] [phone] documented as of this encounter Procedures Procedure Name Priority Date/Time Associated Diagnosis Comments BLOCK SACROILIAC JOINT 01/04/2022 9:26 AM CDT sacroiliitis XR PAIN CLINIC C-ARM Today 01/04/2022 9:20 AM CDT POCT GLUCOSE - [facility] DEVICE Routine 01/04/2022 8:57 AM CDT XR PAIN CLINIC C-ARM Today 01/04/2022 8:18 AM CDT documented in this encounter Results * XR PAIN CLINIC C-ARM (01/04/2022 9:20 AM CDT) Narrative Radiology, Technologist - 01/04/2022 9:20 AM CDT This report does not contain a radiologist's interpretation. Please review associated procedure and/or operative report. Lidia Weston MD GENERAL IMAGING Final Result * (ABNORMAL) POCT glucose (01/04/2022 8:57 AM CDT) GLUCOSE POC 119(H) 70 - 99 mg/dL 01/04/2022 9:02 AM CDT [facility] 01/04/2022 8:57 AM CDT us Lidia Weston MD POCT ORDERABLES - DEVICE Sarah l Result [facility] [address] [place] [address], [place] [phone] * XR PAIN CLINIC C-ARM (01/04/2022 8:18 AM CDT) Narrative Radiology, Technologist - 01/04/2022 8:18 AM CDT This report does not contain a radiologist's interpretation. Please review associated procedure and/or operative report. us Lidia Weston MD GENERAL IMAGING Final Result documented in this encounter Visit Diagnoses Not on filedocumented in this encounter Administered Medications Inactive Administered Medications - up to 3 most recent administrations Medication Order MAR Action Action Date Dose Rate Site bupivacaine (PF) (MARCAINE) 0.75 % injection As needed, Starting on Mariaelena 01/04/22 at 0937, Until Mariaelena 01/04/22 at 0939, Intra-Op Given 01/04/2022 9:37 AM CDT 4 mLs Operative Site chlorhexidine (PERIDEX) 0.12 % solution 15 mL 15 mL, Mouth/Throat, PRN, Prior to surgery, 1 dose, Starting on Mariaelena 01/04/22 at 0818, Until Mariaelena 01/04/22 at 1203, Patient to perform oral care first. Swish/Gargle in mouth for 30 seconds, and then discard, prior to going to surgery/ If ventilated use saturated swab to clean oral cavity., Pre-Op diazePAM (VALIUM) 5 MG tablet 1 dose, Starting on Mariaelena 01/04/22 at 0905, Until Mariaelena 01/04/22 at 0906, Created by cabinet override diazePAM (VALIUM) tablet 10 mg 10 mg, Oral, Once as needed, Anxiety, 1 dose, Starting on Mariaelena 01/04/22 at 0818, Until Mariaelena 01/04/22 at 1203, Pre-Op diazePAM (VALIUM) tablet 5 mg 5 mg, Oral, Once, 1 dose, On Mariaelena 01/04/22 at 0930 Given 01/04/2022 9:06 AM CDT 5 mg HYDROcodone-acetaminophen (NORCO) 5-325 MG tablet 2 tablet 2 tablet, Oral, Once, 1 dose, On Mariaelena 01/04/22 at 0900, Maximum dose of acetaminophen is 4000 mg from all sources in 24 hours. Given 01/04/2022 8:49 AM CDT 2 tablets HYDROcodone-acetaminophen (NORCO) 5-325 MG tablet 1 dose, Starting on Mariaelena 01/04/22 at 0845, Until Mariaelena 01/04/22 at 0849, Created by cabinet override iopamidol (ISOVUE-M 300) 61 % injection As needed, Starting on Mariaelena 01/04/22 at 0936, Until Mariaelena 01/04/22 at 0939, Intra-Op Given 01/04/2022 9:36 AM CDT 5 mLs Operative Site lidocaine (PF) (XYLOCAINE) 1 % injection As needed, Starting on Mariaelena 01/04/22 at 0931, Until Mariaelena 01/04/22 at 0939, Intra-Op Given 01/04/2022 9:31 AM CDT 2 mLs Back triamcinolone acetonide (KENALOG-40) injection As needed, Starting on Mariaelena 01/04/22 at 0937, Until Mariaelena 01/04/22 at 0939, Intra-Op Given 01/04/2022 9:37 AM CDT 80 mg Operative Site documented in this encounter Active and Recently Administered Medications Times are shown in CDT. Scheduled Medication Order 01/02/2022 01/03/2022 01/04/2022 diazePAM (VALIUM) tablet 5 mg (COMPLETED) 5 mg, Oral, Once, 1 dose, On Mariaelena 01/04/22 at 0930 0906 (Given - Provid er: Debbie Bai RN) HYDROcodone-acetaminophen (NORCO) 5-325 MG tablet 2 tablet (COMPLETED) 2 tablet, Oral, Once, 1 dose, On Mariaelena 01/04/22 at 0900, Maximum dose of acetaminophen is 4000 mg from all sources in 24 hours. 0849 (Given - Provid er: Debbie Bai RN) PRN Medication Order 01/02/2022 01/03/2022 01/04/2022 bupivacaine (PF) (MARCAINE) 0.75 % injection (CANCELED) As needed, Starting on Mariaelena 01/04/22 at 0937, Until Mariaelena 01/04/22 at 0939, Intra-Op 0937 (Given - Provid er: Lidia Wesotn MD) chlorhexidine (PERIDEX) 0.12 % solution 15 mL 15 mL, Mouth/Throat, PRN, Prior to surgery, 1 dose, Starting on Mariaelena 01/04/22 at 0818, Until Mariaelena 01/04/22 at 1203, Patient to perform oral care first. Swish/Gargle in mouth for 30 seconds, and then discard, prior to going to surgery/ If ventilated use saturated swab to clean oral cavity., Pre-Op diazePAM (VALIUM) tablet 10 mg 10 mg, Oral, Once as needed, Anxiety, 1 dose, Starting on Mariaelena 01/04/22 at 0818, Until Mariaelena 01/04/22 at 1203, Pre-Op iopamidol (ISOVUE-M 300) 61 % injection (CANCELED) As needed, Starting on Mariaelena 01/04/22 at 0936, Until Mariaelena 01/04/22 at 0939, Intra-Op 0936 (Given - Provid er: Lidia Weston MD) lidocaine (PF) (XYLOCAINE) 1 % injection (CANCELED) As needed, Starting on Mariaelena 01/04/22 at 0931, Until Mariaelena 01/04/22 at 0939, Intra-Op 0931 (Given - Provid er: Lidia Weston MD) triamcinolone acetonide (KENALOG-40) injection (CANCELED) As needed, Starting on Mariaelena 01/04/22 at 0937, Until Mariaelena 01/04/22 at 0939, Intra-Op 0937 (Given - Provid er: Lidia Weston MD) documented in this encounter Care Teams Diploma Pharmacy Technician Relationship Specialty Start Date End Date Deedee Low PA [address] [place] [address] PCP - General PHYSICIAN VEHICLE LEASING AND RENTAL MANAGER 07/22/20 documented as of this encounter
--- OUTSIDE RECORDS SUMMARY | 2024-02-24 17:00 | XMS_ITS | Encounter Summary ---
Author Organization [facility] Address [address] [place] [address]. [place] [address] [place] [address] Care Team Providers Care Application Architect Manager Name Role Phone Deedee Low Primary Care Provider [phone] Encounter Details Date Type Department Care Team (Late st Contact Info) Description 01/03/2022 Dinomarkett Message Enc [facility] Medical Group Multispecialty Care - [facility] [address] [facility], [address] [place] [phone] Presley Hernandez MD 3 [place] [address] FMLA Social History Tobacco Use Types Packs/Day [...] Progress Notes * Michelle Begum RN - 01/03/2022 11:48 AM CDT Please advise documented in this encounter Plan of Treatment Upcoming Encounters Date Type Department Care Team (Late st Contact Info) Description 04/15/2024 1:00 PM OPERATIONS AND MAINTENANCE MANAGER Office Visit [facility] [address] [facility], [address] [place] [address] Presley Hernandez MD 3 [place] [address] 04/30/2024 10:40 AM OPERATIONS AND MAINTENANCE MANAGER Office Visit [facility] [address] [facility], [address] [place] [address] Presley Hernandez MD 3 [place] [address] documented as of this encounter Visit Diagnoses Not on filedocumented in this encounter Care Teams Application Architect Manager Relationship Specialty Start Date End Date Deedee Low PA [address] [facility] [address] [place] [address] PCP - General PHYSICIAN FAST FOOD SHIFT LEAD 07/22/20 documented as of this encounter
--- OUTSIDE RECORDS SUMMARY | 2024-02-24 17:00 | XMS_ITS | Encounter Summary ---
Author Organization [facility] Address [address] [place] [address]. [place] [address] [place] [address] Care Team Providers Care Wood Tile Installation Helper Name Role Phone Jennifermary Deedee DOWELL Primary Care Provider [phone] Encounter Details Date Type Department Care Team (Late st Contact Info) Description 10/26/2021 Orders Only [facility] Medical Group Multispecialty Care - [facility] [address] [facility], [address] [place] [address] Presley Hernandez MD 3 [place] [address] Social History Tobacco Use Types Packs/Day Years [...] Progress Notes * Michelle Meyer RN - 10/26/2021 2:36 PM CDTAddended by: MICHELLE MEYER on: 10/26/2021 02:36 PM Modules accepted: Orders documented in this encounter Plan of Treatment Upcoming Encounters Date Type Department Care Team (Late st Contact Info) Description 04/15/2024 1:00 PM COORDINATE MEASURING MACHINE OPERATOR Office Visit [facility] [address] [facility], [address] [place] [address] Presley Hernandez MD [address] [place] [address] 04/30/2024 10:40 AM COORDINATE MEASURING MACHINE OPERATOR Office Visit [facility] [address] [facility], [address] [place] [address] Presley Hernandez MD [address] [place] [address] documented as of this encounter Visit Diagnoses Diagnosis Epilepsy without status epilepticus, not intractable ([facility]/HCC [facility])- Primary Unspecified epilepsy without mention of intractable epilepsy Alteration of awareness documented in this encounter Care Teams Wood Tile Installation Helper Relationship Specialty Start Date End Date Deedee Low PA [address] [place] [address] PCP - General PHYSICIAN BEATER ROOM HELPER 07/22/20 documented as of this encounter
--- OUTSIDE RECORDS SUMMARY | 2024-02-24 17:00 | XMS_ITS | Encounter Summary ---
Author Organization [facility] Address [address] [place] [address]. [place] [address] [place] [address] Care Team Providers Care Senior Abap Developer Name Role Phone Deedee Low Primary Care Provider [phone] Encounter Details Date Type Department Care Team (Latest Contact Info) Description 12/22/2021 Cardiosolutions Message Enc [facility] Medical Group Multispecialty Care - [address], [address] [place] [address] Presley Hernandez MD 3 [place] [address] Insurance change - new pre authorization needed Social History Tobacco Use Types Packs/Day Years [...] st Contact Info) Description 04/15/2024 1:00 PM POKER MACHINE ATTENDANT Office [facility] [address] [facility], [address] [place] [address] Presley Hernandez MD [address] [place] [address] 04/30/2024 10:40 AM POKER MACHINE ATTENDANT Office Visit [facility] - [address], [address] [place] [address] Presley Hernandez MD [address] [place] [address] documented as of this encounter Visit Diagnoses Not on filedocumented in this encounter Care Teams Senior Abap Developer Relationship Specialty Start Date End Date Deedee Low PA [address] [facility] [address] [place] [address] PCP - General PHYSICIAN AUTO BODY BUILDER APPRENTICE 07/22/20 documented as of this encounter
--- OUTSIDE RECORDS SUMMARY | 2024-02-24 17:00 | XMS_ITS | Encounter Summary ---
Author Organization [facility] Address [address] [place] [address]. [place], [place] [address] [place] [address] Care Team Providers Care Rack Room Worker Name Role Phone Deedee Low Primary Care Provider [phone] Encounter Details Date Type Department Care Team (Latest Contact Info) Description 11/27/2021 Travel Social History Tobacco Use Types Packs/Day [...] suspected to have Coronavirus/COVID-19? No / Unsure 11/27/2021 2:53 PM CDT documented as of this encounter Plan of Treatment Upcoming Encounters Date Type Department Care Team (Late st Contact Info) Description 04/15/2024 1:00 PM SAND CAR WORKER Office Visit [facility] Medical Group Multispecialty Care - [address], [address] [place] [address] Presley Hernandez MD 3 [place] [address] 04/30/2024 10:40 AM SAND CAR WORKER Office Visit [facility] Medical Group Multispecialty Care - [address], [address] [place] [address] Presley Hernandez MD 3 [place] [address] documented as of this encounter Visit Diagnoses Not on filedocumented in this encounter Care Teams Rack Room Worker Relationship Specialty Start Date End Date Deedee Low PA [address] [place] [address] PCP - General PHYSICIAN DOOR REPAIRER BUS 07/22/20 documented as of this encounter
--- OUTSIDE RECORDS SUMMARY | 2024-02-24 17:00 | XMS_ITS | Encounter Summary ---
Author Organization [facility] Address [address] [place] [address]. [place], [place] [address] [place] [address] Care Team Providers Care Track Man Name Role Phone Deedee Low Primary Care Provider [phone] Reason for Visit * Consultation/Treatment (Routine) - Closed Specialty Diagnoses / Procedures Referred By Contact Referred To Contact PAIN MANAGEMENT / [facility] Pain Management Diagnoses Lumbosacral radiculopathy Procedures OFFICE/OUTPT VISIT,NEW,LEVL III OFFICE/OUTPT VISIT,NEW,LEVL IV OFFICE/OUTPT VISIT,NEW,LEVL V OFFICE/OUTPT VISIT,EST,LEVL III OFFICE/OUTPT VISIT,EST,LEVL IV OFFICE/OUTPT VISIT,EST,LEVL V Presley Hernandez MD 3 [place] [address] Phone: tel:[phone] fax:[phone] [facility] [place] [address] Phone: tel: [phone] Referral ID Status Reason Start Date Expiration Date V isits Requested Visits Authorized [id number] Closed Specialty Services 10/25/2021 11/25/2022 10 10 Encounter Details Date Type Department Care Team (Latest Contact Info) Description 12/07/2021 12:19 PM CDT - 12/07/2021 11:59 PM CDT Hospital Encounter [facility] [place] [address] [id number] Tania Yang APNP [address] [place] [phone] Discharge Disposition: Home or Self Care (Routine [...] Sign Reading Time Taken Comments Blood Pressure 140/92 12/07/2021 12:53 PM CDT Pulse 88 12/07/2021 12:53 PM CDT Temperature 36.7 ??C (98 ??F) 12/07/2021 12:53 PM CDT Respiratory Rate 20 12/07/2021 12:53 PM CDT Oxygen Saturation 99% 12/07/2021 12:53 PM CDT Inhaled Oxygen Concentration - - Weight 95.7 kg (211 lb) 12/07/2021 12:53 PM CDT Height 162.6 cm (5' 4 ) 12/07/2021 12:53 PM CDT Body Mass Index 36.22 12/07/2021 12:53 PM CDT documented in this encounter Medications at Time of Discharge albuterol sulfate HFA 108 (90 Base) MCG/ACT inhaler Inhale 2 puffs into the lungs every 6 (six) hours as needed for Wheezing. cetirizine 10 MG tablet Take 1 tablet (10 mg total) by mouth daily. Continuous Blood Gluc Sensor (DEXCOM G6 SENSOR) [facility] 2 Continuous Blood Gluc Transmit (DEXCOM G6 TRANSMITTER) [facility] 2 diazePAM 5 MG tablet Take 1 [...] 200 MG tabletIndications:M S (multiple sclerosis) (CMS/HCC [facility]),Migraine without aura, not [...] mouth daily. 30 tablet 2 07/12/19 23 atorvastatin (LIPITOR) 20 MG tablet atorvastatin 20 mg tablet 07/12/19 23 buPROPion (WELLBUTRIN) 100 MG tablet bupropion HCl 100 mg tablet TAKE 1 TABLET BY MOUTH TWICE DAILY 07/19/19 23 carBAMazepine 200 MG tabletIndications:M S (multiple sclerosis) ([facility] HHS/[facility]),Migraine without aura, not [...] for Nausea. 20 tablet 2 09/09/19 24 ondansetron 8 MG tablet Take by mouth every 8 (eight) hours as needed for Nausea. 07/12/19 23 phentermine (ADIPEX-P) 37.5 MG tablet 2 10/06/19 23 promethazine 6.25 MG/5ML syrupIndications:MS (multiple sclerosis) ([facility] HHS/HCC),Migraine without aura, not intractable, without status migrainosus Take 10 mLs (12.5 mg total) by mouth once as needed for Nausea. 120 mL 5 2 07/12/19 23 propranolol 20 MG tabletIndications:M S (multiple sclerosis) ([facility] HHS/HCC),Migraine without [...] (MAXALT) 10 MG tabletIndications:M S (multiple sclerosis) ([facility] HHS/HCC),Migraine without aura, not intractable, without status migrainosus Take 1 tablet (10 mg total) by mouth as needed for Migraine. May repeat in 2 hours if needed 16 tablet 5 2 07/24/19 24 documented as of this encounter H&P Notes * NICO Blandon - 12/07/2021 1:00 PM CDTSummary: Neck pain that radiates across her posterior [...] of her wrist, said that she receives rn progressive care unit and does receive wrist injections. 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 She does report some relief of pain with lying down, massage, relaxation, application of heat and medications. Previous treatments: She has undergone physical therapy in the past at [facility]. She has tried application of cold and heat, said has benefited from the heat. She receives rn progressive care unit with [facility] in [place], [place]. She has tried TENS. She has tried Rumsey, Toradol, Tylenol for pain relief. Past Medical History: Diagnosis Date ??? Anxiety disorder, unspecified ??? Asthma ??? Depression ??? Diabetes mellitus ([facility]) ??? GERD (gastroesophageal reflux disease) ??? Hypertension [...] elbow extension and flexion, lift off test, pressurised container filler and finger abduc tion. No color changes, [...] 12:15 PM CDT documented in this encounter Plan of Treatment Upcoming Encounters Date Type Department Care Team (Late st Contact Info) Description 04/15/2024 1:00 PM INFORMATICS PHYSICIAN LIAISON Office Visit [facility] [address] [facility], [address] [place] [address] Presley Hernandez MD 3 [place] [address] 04/30/2024 10:40 AM INFORMATICS PHYSICIAN LIAISON Office Visit [facility] [address] [facility], [address] [place] [address] Presley Hernandez MD [address] [place] [address] documented as of this encounter Visit Diagnoses Not on filedocumented in this encounter Care Teams Track Man Relationship Specialty Start Date End Date Deedee Low PA [address] [place] [address] PCP - General PHYSICIAN DEFENCE INTELLIGENCE ANALYST 07/22/20 documented as of this encounter
--- OUTSIDE RECORDS SUMMARY | 2024-02-24 17:00 | XMS_ITS | Encounter Summary ---
Author Organization [facility] Address [address] [place] [address]. [place], [place] [address] [place] [address] Care Team Providers Care Cook Restaurant Name Role Phone Deedee Low Primary Care Provider [phone] Encounter Details Date Type Department Care Team (Latest Contact Info) Description 10/04/2021 Travel Social History Tobacco Use Types Packs/Day [...] suspected to have Coronavirus/COVID-19? No / Unsure 10/04/2021 10:35 AM CDT documented as of this encounter Plan of Treatment Upcoming Encounters Date Type Department Care Team (Late st Contact Info) Description 04/15/2024 1:00 PM CAN DRAGGER Office Visit [facility] Medical Group Multispecialty Care - [address], [address] [place] [address] Presley Hernandez MD 3 [place] [address] 04/30/2024 10:40 AM CAN DRAGGER Office Visit [facility] Medical Group Multispecialty Care - [address], [address] [place] [address] Presley Hernandez MD 3 [place] [address] documented as of this encounter Visit Diagnoses Not on filedocumented in this encounter Care Teams Cook Restaurant Relationship Specialty Start Date End Date Deedee Low PA [address] [place] [address] PCP - General PHYSICIAN VISCOSITY INSPECTOR 07/22/20 documented as of this encounter
--- OUTSIDE RECORDS SUMMARY | 2024-02-24 17:00 | XMS_ITS | Encounter Summary ---
Author Organization [facility] Address [address] [place] [address]. [place], [place] [address] [place] [address] Care Team Providers Care Lime Sludge Kiln Operator Name Role Phone Deedee Low Primary Care Provider [phone] Reason for Visit * Reason Comments Botox * Injection (Routine) - Closed Specialty Diagnoses / Procedures Referred By Angelita silva Referred To Contact Diagnoses Chronic migraine without aura, not intractable, without status migrainosus Trigeminal neuralgia Spasmodic torticollis chronic migraines--200 units trigeminal neuralgia--50 units Procedures BOTOX Presley Hernandez MD [address] [place] [address] Phone: tel: fax: Presley Hernandez MD [address] [place] [address] Phone: tel: fax: Referral ID Status Reason Start Date Expiration Date Visits Re quested Visits Authorized [id number] Closed 01/07/2022 01/08/2023 8 8 Encounter Details Date Type Department Care Team (Late st Contact Info) Description 01/17/2022 9:00 AM DIRECTOR WORKERS COMPENSATION Office Visit [facility] Medical Group Multispecialty Care - [address], [address] [place] [address] Presley Hernandez MD [address] [place] [address] Botox Social History Tobacco Use Types Packs/Day [...] Coronavirus/COVID-19? No / Unsure 01/17/2022 9:02 AM DIRECTOR WORKERS COMPENSATION documented as of this encounter Last Filed Vital Signs Vital Sign Reading Time Taken Comments Blood Pressure 139/84 01/17/2022 9:13 AM DIRECTOR WORKERS COMPENSATION Pulse 77 01/17/2022 9:13 AM DIRECTOR WORKERS COMPENSATION Temperature 36.9 ??C (98.4 ??F) 01/17/2022 9:13 AM CS T Respiratory Rate 18 01/17/2022 9:13 AM DIRECTOR WORKERS COMPENSATION Oxygen Saturation 100% 01/17/2022 9:13 AM DIRECTOR WORKERS COMPENSATION Inhaled Oxygen Concentration - - Weight 94.6 kg (208 lb 8 oz) 01/17/2022 9:13 AM DIRECTOR WORKERS COMPENSATION Height 162.6 cm (5' 4 ) 01/17/2022 9:13 AM DIRECTOR WORKERS COMPENSATION Body Mass Index 35.79 01/17/2022 9:13 AM DIRECTOR WORKERS COMPENSATION documented in this encounter Progress Notes * Presley Hernandez MD - 01/17/2022 9:00 AM CST Botox treatment cycle number: Lot type: Buy and bill Wastage: 50 Botox Injection Procedure Informed consent: signed by [...] injected. The procedure was tolerated well without complication.@ will return to clinic in three months' time for repeat injections. CTOR WORKERS COMPENSATION documented in this encounter Plan of Treatment Upcoming Encounters Date Type Department Care Team (Late st Contact Info) Description 04/15/2024 1:00 PM DIRECTOR WORKERS COMPENSATION Office Visit [facility] - [address], [address] [phone] Presley Hernandez MD [address] [place] [address] 04/30/2024 10:40 AM DIRECTOR WORKERS COMPENSATION Office Visit [facility] Care - [address], [address] [place] [address] Presley Hernandez MD [address] [place] [address] Scheduled Orders Name Type Priority Associated Diagnoses Orde r Schedule NECK MUSCLE EXCLUDING MUSCLES OF THE LARYNX UNILATERAL Procedures Routine Cervical dystonia Ordered: 01/17/2022 NDL EMG GDN CONJUNCT CHEMODNRVTJ Procedures Routine Cervical dystonia Ordered: 01/17/2022 documented as of this encounter Visit Diagnoses Diagnosis Cervical dystonia- Primary Spasmodic torticollis documented in this encounter Administered Medications Inactive Administered Medications - up to 3 most recent administrations Medication Order MAR Action Action Date Dose Rate Site onabotulinumtoxinA (BOTOX) injection 100 Units 100 Units, Intramuscular, Once, 1 dose, On Sat01/17/22 at 2015Indications:Cervical dystonia Given 01/17/2022 9:00 AM DIRECTOR WORKERS COMPENSATION 100 Units Other documented in this encounter Care Teams Lime Sludge Kiln Operator Relationship Specialty Start Date End Date Deedee Low PA [address] [facility] [address] [place] [address] PCP - General PHYSICIAN WEIR FISHER 07/22/20 documented as of this encounter
--- OUTSIDE RECORDS SUMMARY | 2024-02-24 17:00 | XMS_ITS | Encounter Summary ---
Author Organization [facility] Address [address] [place] [address]. [place], [place] [address] [place] [address] Care Team Providers Care Environmental Field Professional Name Role Phone Deedee Low Primary Care Provider [phone] Encounter Details Date Type Department Care Team (Latest Contact Info) Description 10/25/2021 Travel Social History Tobacco Use Types Packs/Day [...] suspected to have Coronavirus/COVID-19? No / Unsure 10/25/2021 6:59 AM CDT documented as of this encounter Plan of Treatment Upcoming Encounters Date Type Department Care Team (Late st Contact Info) Description 04/15/2024 1:00 PM SOCK LINING EXAMINER Office Visit [facility] Medical Group Multispecialty Care - [address], [address] [place] [address] Presley Hernandez MD 3 [place] [address] 04/30/2024 10:40 AM SOCK LINING EXAMINER Office Visit [facility] Medical Group Multispecialty Care - [address], [address] [place] [address] Presley Hernandez MD 3 [place] [address] documented as of this encounter Visit Diagnoses Not on filedocumented in this encounter Care Teams Environmental Field Professional Relationship Specialty Start Date End Date Deedee Low PA [address] [place] [address] PCP - General PHYSICIAN ASSOCIATE BUYER 07/22/20 documented as of this encounter
--- OUTSIDE RECORDS SUMMARY | 2024-02-24 17:00 | XMS_ITS | Encounter Summary ---
Author Organization [facility] Address [address] [place] [address]. [place], [place] [address] [place] [address] Care Team Providers Care Research Contracts Supervisor Name Role Phone Deedee Low Primary Care Provider [phone] Reason for Visit * Reason Comments Botox * Injection (Routine) - Closed Specialty Diagnoses / Procedures Referred By Angeliat silva Referred To Contact Diagnoses Chronic migraine without aura, not intractable, without status migrainosus Trigeminal neuralgia Spasmodic torticollis chronic migraines--200 units trigeminal neuralgia--50 units Procedures BOTOX Presley Hernandez MD [address] [place] [address] Phone: tel: fax: Presley Hernandez MD [address] [place] [address] Phone: tel: fax: Referral ID Status Reason Start Date Expiration Date Visits Re quested Visits Authorized [id number] Closed 01/07/2022 01/08/2023 8 8 Encounter Details Date Type Department Care Team (Late st Contact Info) Description 01/10/2022 10:40 AM CDT [facility] Mult[facility]pecialty Care - [address], [address] [place] [address] Presley Hernandez MD [address] [place] [address] Botox Social History Tobacco Use Types Packs/Day [...] Sign Reading Time Taken Comments Blood Pressure 138/91 01/10/2022 11:30 AM CDT Pulse 97 01/10/2022 11:00 AM CDT Temperature 36.6 ??C (97.8 ??F) 01/10/2022 1 1:00 AM CDT Respiratory Rate 18 01/10/2022 11:0 0 AM CDT Oxygen Saturation 99% 01/10/2022 11: 00 AM CDT Inhaled Oxygen Concentration - - Weight 95.6 kg (210 lb 12.8 oz) 022 11:00 AM CDT Height 162.6 cm (5' 4 ) 01/10/2022 11:0 0 AM CDT Body Mass Index 36.18 01/10/2022 11:00 AM CDT documented in this encounter Progress Notes * Presley Hernandez MD - 01/10/2022 10:40 AM CDT Botox treatment cycle number: 2 Botox side effect: None Medication effect lasted for: 80% in 2 months Lot type: Buy and bill Wastage: 45 ? Botox Injection Procedure Informed consent: signed [...] units at 31 different sites. ?? A. Field Attendant : 10 Units divided in 2 sites [...] st Contact Info) Description 04/15/2024 1:00 PM WELL DRILLER HELPER [facility] Mult[facility] Care - [facility] [address] [facility], [address] [place] [address] Presley Hernandez MD 3 [place] [address] 04/30/2024 10:40 AM WELL DRILLER HELPER [facility] Mult[facility]pecialty Care - [facility] [address] [facility], [address] [place] [address] Presley Hernandez MD 3 [facility] [place] [address] Scheduled Orders Name Type Priority Associated Diagnoses Orde r Schedule CHEMODENERVATION MUSCLE INNERVTD, BILAT Procedures Routine Chronic migraine w/o aura w/o status migrainosus, not intractable Ordered: 01/10/2022 documented as of this encounter Visit Diagnoses [...] 155 Units, Intramuscular, Once, 1 dose, On Sat01/10/22 at 2215Indications:Chronic migraine w/o aura w/o status migrainosus, not intractable Given 01/10/2022 10:40 AM CDT 155 Units Other documented in this encounter Care Teams Research Contracts Supervisor Relationship Specialty Start Date End Date Deedee Low PA [address] [place] [address] PCP - General PHYSICIAN LEARNING DISABLED TEACHER 07/22/20 documented as of this encounter
--- OUTSIDE RECORDS SUMMARY | 2024-02-24 17:00 | XMS_ITS | Encounter Summary ---
Author Organization [facility] Address [address] [place] [address]. [place], [place] [address] [place] [address] Care Team Providers Care Traffic Operator Name Role Phone Deedee Low Primary Care Provider [phone] Encounter Details Date Type Department Care Team (Latest Contact Info) Description 12/27/2021 Scan HEALTH INFO SRVCS Scanned, Doc Med [...] Contact Info) Description 04/15/2024 1:00 PM DIGITAL MARKETING ASSISTANT Office Visit [facility] Mult[facility]pec[facility] - [facility] 3 [facility], [address] [place] [address] Presley Hernandez MD 3 [place] [address] 04/30/2024 10:40 AM DIGITAL MARKETING ASSISTANT Office Visit [facility] Medical [facility] Multispecialty Care - [facility] 3 [facility], [address] [place] [address] Presley Hernandez MD 3 [place] [address] documented as of this encounter Visit Diagnoses Not on filedocumented in this encounter Care Teams Traffic Operator Relationship Specialty Start Date End Date Deedee Low PA [address] [place] [address] PCP - General PHYSICIAN PLEATING MACHINE OPERATOR 07/22/20 documented as of this encounter
--- OUTSIDE RECORDS SUMMARY | 2024-02-24 17:00 | XMS_ITS | Encounter Summary ---
Author Organization [facility] Address [address] [place] [address]. [place], [place] [address] [place] [address] Care Team Providers Care Oxidized Finish Plater Name Role Phone Deedee Low Primary Care Provider [phone] Encounter Details Date Type Department Care Team (Latest Contact Info) Description 10/05/2021 Travel Social History Tobacco Use Types Packs/Day [...] suspected to have Coronavirus/COVID-19? No / Unsure 10/05/2021 11:34 AM CDT documented as of this encounter Plan of Treatment Upcoming Encounters Date Type Department Care Team (Late st Contact Info) Description 04/15/2024 1:00 PM SALES PROMOTION REPRESENTATIVE Office Visit [facility] Medical Group Multispecialty Care - [address], [address] [place] [address] Presley Hernandez MD 3 [place] [address] 04/30/2024 10:40 AM SALES PROMOTION REPRESENTATIVE Office Visit [facility] Medical Group Multispecialty Care - [address], [address] [place] [address] Presley Hernandez MD 3 [place] [address] documented as of this encounter Visit Diagnoses Not on filedocumented in this encounter Care Teams Oxidized Finish Plater Relationship Specialty Start Date End Date Deedee Low PA [address] [place] [address] PCP - General PHYSICIAN R AND D LAB TECHNICIAN 07/22/20 documented as of this encounter
--- OUTSIDE RECORDS SUMMARY | 2024-02-24 17:00 | XMS_ITS | Encounter Summary ---
Author Organization [facility] Address [address] [place] [address]. [place] [address] [place] [address] Care Team Providers Care Power Generation Turbine Room Operator Name Role Phone Jennifermary Deedee DOWELL Primary Care Provider [phone] Reason for Visit * Reason Onset Date Comments Follow Up Call 09/18/2021 Encounter Details Date Type Department Care Team (Late st Contact Info) Description 09/18/2021 Telephone [facility] Medical Group Multispecialty Care - [facility] 3 [facility], [address] [place] [address] Presley Hernandez MD 3 [place] [address] Follow Up Call Social History Tobacco Use Types Packs/Day Years Used Date Smoking Tobacco: Former Cigarettes Smokeless Tobacco: Never Alcohol Use Standard Drinks/Week Comments Yes 0 (1 standard drink = 0.6 oz pur e alcohol) occasionally Comments No Sex and Gender Information Value Date Recorded Sex Assigned at Not on file Legal Sex Female 2:06 PM CDT Gender Identity Not on file Sexual Orientation Not on file COVID-19 Exposure Response Date Recorded In the last 10 days, have yo u been in contact with someone who was confirmed or suspected to have Coronavirus/COVID-19? No / Unsure 09/07/2021 7:35 AM CDT documented as of this encounter Progress Notes * Baylee Keen MA - 09/18/2021 3:15 PM CDT Spoke with Alannah. I had to make her a new appointment for September 27 Whoever made her first botoxapt didn't schedule her Visit Type as BOTOX they put it as a Follow Up. So, I made her a new apt. And Assigned the Botox Referral. * Haydee De Los Santos - 09/18/2021 2:02 PM CDT Pt is calling to verify that her September 27 and Botox appts are correct. The times are incorrect inthe computer and one appt is sched as a follow up not a botox appt. Please call pt back to f/u. documented in this encounter Plan of Treatment Upcoming Encounters Date Type Department Care Team (Late st Contact Info) Description 04/15/2024 1:00 PM FLORIST DESIGNER Office Visit [facility] - [address], [address] [place] [address] Presley Hernandez MD [address] [place] [phone] 04/30/2024 10:40 AM FLORIST DESIGNER [facility] 3 [facility], [address] [place] [address] Presley Hernandez MD [address] [place] [phone] documented as of this encounter Visit Diagnoses Not on filedocumented in this encounter Care Teams Power Generation Turbine Room Operator Relationship Specialty Start Date End Date Deedee Low PA [address] [facility] [address] [place] [address] PCP - General PHYSICIAN LAP POLISHER 07/22/20 documented as of this encounter
--- OUTSIDE RECORDS SUMMARY | 2024-02-24 17:00 | XMS_ITS | Encounter Summary ---
Author Organization [facility] Address [address] [place] [address]. [place], [place] [address] [place] [address] Care Team Providers Care Rib Trim Separator Name Role Phone Deedee Low Primary Care Provider [phone] Encounter Details Date Type Department Care Team (Latest Contact Info) Description 01/17/2022 Scan HEALTH INFO SRVCS Scanned, Doc Med [...] Coronavirus/COVID-19? No / Unsure 01/17/2022 9:02 AM JITTERBUG OPERATOR documented as of this encounter Plan of Treatment Upcoming Encounters Date Type Department Care Team (Late st Contact Info) Description 04/15/2024 1:00 PM JITTERBUG OPERATOR Office Visit [facility] Multispecialty Care - [facility] 3 [facility], [address] [place] [address] Presley Hernandez MD 3 [place] [address] 04/30/2024 10:40 AM JITTERBUG OPERATOR Office Visit [facility] Mult[facility]pecialty Care - [facility] 3 [facility], [address] [place] [address] Presley Hernandez MD 3 [place] [address] documented as of this encounter Visit Diagnoses Not on filedocumented in this encounter Care Teams Rib Trim Separator Relationship Specialty Start Date End Date Deedee Low PA [address] [place] [address] PCP - General PHYSICIAN POWDER SHOVELER 07/22/20 documented as of this encounter
--- OUTSIDE RECORDS SUMMARY | 2024-02-24 17:00 | XMS_ITS | Encounter Summary ---
Author Organization [facility] Address [address] [place] [address]. [place], [place] [address] [place] [address] Care Team Providers Care Cable Stretcher And Tester Name Role Phone Deedee Low Primary Care Provider [phone] Encounter Details Date Type Department Care Team (Latest Contact Info) Description 01/04/2022 Travel Social History Tobacco Use Types Packs/Day [...] Contact Info) Description 04/15/2024 1:00 PM FLOOR ASSEMBLER Office Visit [facility] Medical Group Multispecialty Care - [address], [address] [place] [address] Presley Hernandez MD 3 [place] [address] 04/30/2024 10:40 AM FLOOR ASSEMBLER Office Visit [facility] Medical Group Multispecialty Care - [address], [address] [place] [address] Presley Hernandez MD 3 [place] [address] documented as of this encounter Visit Diagnoses Not on filedocumented in this encounter Care Teams Cable Stretcher And Tester Relationship Specialty Start Date End Date Deedee Low PA [address] [place] [address] PCP - General PHYSICIAN CLINIC BUSINESS MANAGER 07/22/20 documented as of this encounter
--- OUTSIDE RECORDS SUMMARY | 2024-02-24 17:00 | XMS_ITS | Encounter Summary ---
Author Organization [facility] Address [address] [place] [address]. [place], [place] [address] [place] [address] Care Team Providers Care Hand Zipper Trimmer Name Role Phone Deedee Low Primary Care Provider [phone] Reason for Referral * Consultation/Treatment (Routine) - Closed Specialty Diagnoses / Procedures Referred By Contact Referred To Contact PAIN MANAGEMENT / [facility] Pain Management Diagnoses Radiculopathy, cervical region Procedures OFFICE/OUTPT VISIT,NEW,LEVL III OFFICE/OUTPT VISIT,NEW,LEVL IV OFFICE/OUTPT VISIT,NEW,LEVL V OFFICE/OUTPT VISIT,EST,LEVL III OFFICE/OUTPT VISIT,EST,LEVL IV OFFICE/OUTPT VISIT,EST,LEVL V Presley Hernandez MD 3 [place] [address] Phone: tel: fax: [facility] [place] [address] Phone: tel: [phone] Referral ID Status Reason Start Date Expiration Date V isits Requested Visits Authorized [id number] Closed Specialty Services 10/25/2021 11/25/2022 10 10 Encounter Details Date Type Department Care Team (Late st Contact Info) Description 10/25/2021 Orders Only [facility] - [address], [address] [place] [address] Presley Hernandez MD [address] [place] [address] Social History Tobacco Use Types Packs/Day Years [...] Info) Description 04/15/2024 1:00 PM DIRECTOR OF HEAD START [facility] [address], [address] [place] [address] Presley Hernandez MD [address] [place] [address] 04/30/2024 10:40 AM DIRECTOR OF HEAD START [facility] - [address], [address] [place] [address] Presley Hernandez MD [address] [place] [address] Scheduled Referrals Name Type Priority Associated Diagnoses Orde r Schedule Ambulatory Referral to Pain Management Referral Routine Radiculopathy, cervical region Ordered: 10/25/2021 documented as of this encounter Visit Diagnoses Diagnosis Radiculopathy, cervical region- Primary Brachial neuritis or radiculitis nos documented in this encounter Care Teams Hand Zipper Trimmer Relationship Specialty Start Date End Date Deedee Low PA [address] [facility] [address] [place] [address] PCP - General PHYSICIAN TRANSIT DEPARTMENT CLERK 07/22/20 documented as of this encounter
--- OUTSIDE RECORDS SUMMARY | 2024-02-24 17:00 | XMS_ITS | Encounter Summary ---
Author Organization [facility] Address [address] [place] [address]. [place], [place] [address] [place] [address] Care Team Providers Care Associate Project Manager Name Role Phone Jennifermary Deedee DOWELL Primary Care Provider [phone] Encounter Details Date Type Department Care Team (Latest Contact Info) Description 09/04/2021 Travel Social History Tobacco Use Types Packs/Day [...] suspected to have Coronavirus/COVID-19? No / Unsure 09/04/2021 4:38 PM CDT documented as of this encounter Plan of Treatment Upcoming Encounters Date Type Department Care Team (Late st Contact Info) Description 04/15/2024 1:00 PM INSIGHTS MANAGER Office Visit [facility] Medical Group Multispecialty Care - [facility] 3 [facility], [address] [place] [address] Presley Henrandez MD 3 [place] [address] 04/30/2024 10:40 AM INSIGHTS MANAGER Office Visit [facility] Medical Group Multispecialty Care - [facility] 3 [facility], [address] [place] [address] Presley Hernandez MD 3 [place] [address] documented as of this encounter Visit Diagnoses Not on filedocumented in this encounter Care Teams Associate Project Manager Relationship Specialty Start Date End Date Deedee Low PA [address] [place] [address] PCP - General PHYSICIAN X RAY TECH 07/22/20 documented as of this encounter
--- OUTSIDE RECORDS SUMMARY | 2024-02-24 17:00 | XMS_ITS | Encounter Summary ---
Author Organization [facility] Address [address] [place] [address]. [place], [place] [address] [place] [address] Care Team Providers Care Make Ready Mechanic Name Role Phone Deedee Low Primary Care Provider [phone] Encounter Details Date Type Department Care Team (Latest Contact Info) Description 11/01/2021 Travel Social History Tobacco Use Types Packs/Day [...] st Contact Info) Description 04/15/2024 1:00 PM PUBLIC EMPLOYMENT MEDIATOR Office Visit [facility] Medical Group Multispecialty Care - [address], [address] [place] [address] Presley Hernandez MD 3 [place] [address] 04/30/2024 10:40 AM PUBLIC EMPLOYMENT MEDIATOR Office Visit [facility] Medical Group Multispecialty Care - [address], [address] [place] [address] Presley Hernandez MD 3 [place] [address] documented as of this encounter Visit Diagnoses Not on filedocumented in this encounter Care Teams Make Ready Mechanic Relationship Specialty Start Date End Date Deedee Low PA [address] [place] [address] PCP - General PHYSICIAN DIRECTOR ELECTRICAL ENGINEERING 07/22/20 documented as of this encounter
--- OUTSIDE RECORDS SUMMARY | 2024-02-24 17:00 | XMS_ITS | Encounter Summary ---
Author Organization [facility] Address [address] [place] [address]. [place], [place] [address] [place] [address] Care Team Providers Care Sales Training Coordinator Name Role Phone Deedee Low Primary Care Provider [phone] Reason for Visit * Auth/Cert Specialty Diagnoses / Procedures Referred By Angelita silva Referred To Contact Diagnoses cervical radiculopathy Procedures NJX INTERLAMINAR CRV/THRC INJECTION EPIDURAL STEROID CERVICAL C5-6 Lidia Weston MD Three [facility] [address] [place] [address] Phone: tel: fax: Referral ID Status Reason Start Date Expiration Date Visits Re quested Visits Authorized [id number] 1 1 Encounter Details Date Type Department Care Team (Latest Contact Info) Description 01/18/2022 8:01 AM JEEPER OPERATOR - 01/18/2022 9:08 AM [facility] Hospital Encounter [facility] [place], [place] [id number] [phone] Lidia Weston MD Three [facility] [address] [place] [address] [phone] Discharge Disposition: Home or Self Care (Routine [...] Coronavirus/COVID-19? No / Unsure 01/17/2022 9:02 AM JEEPER OPERATOR documented as of this encounter Last Filed Vital Signs Vital Sign Reading Time Taken Comments Blood Pressure 141/94 01/18/2022 8:59 AM JEEPER OPERATOR Pulse 92 01/18/2022 8:59 AM JEEPER OPERATOR Temperature 36.4 ??C (97.5 ??F) 01/18/2022 8:00 AM CS T Respiratory Rate 22 01/18/2022 8:59 AM JEEPER OPERATOR Oxygen Saturation 100% 01/18/2022 8:59 AM JEEPER OPERATOR Inhaled Oxygen Concentration - - Weight 95.3 kg (210 lb) 01/18/2022 8:00 AM JEEPER OPERATOR Height 162.6 cm (5' 4 ) 01/18/2022 8:00 AM JEEPER OPERATOR Body Mass Index 36.05 01/18/2022 8:00 AM JEEPER OPERATOR documented in this encounter Discharge Instructions * Discharge Instructions* Debbie Bai RN - 01/18/2022 8:28 AM JEEPER OPERATOR [place] Interventional Pain Management Discharge Instructions PLEASE CALL WITH % OF RELIEF FROM YOUR INJECTION IN 3 WEEKS FOR INSURANCE AUTHORIZATION APPROVAL PER BS Please call [phone] Ext. [phone] option 4. You may need to leave a message. Please leave the following information... 1. Name, date of , a number we can reach you for questions and the date you were here. 2. The amount of relief you received from your injection in NUMBER percentage and how long it has lasted [...] that if we do not receive this in formation your next injection may not get authorized by your insurance company and your treatment could be delayed. FOLLOW UP NEEDED AND CALL US WHEN PAIN RETURNS AND PERSISTS WHAT TO DO TODAY: Limit your activity [...] call your doctor who manages your diabetes. BLOOD SUGAR 87 All side effects are temporary and should subside in approximately a week. WHEN TO CALL THE DOCTOR AND HOW TO REACH US: Call [phone] ext. [phone] for scheduling, insurance questions or speak with [...] PLEASE GO TO THE EMERGENCY ROOM IMMEDIATELY! ER OPERATOR ER OPERATOR documented in this encounter Medications at Time of Discharge albuterol sulfate HFA 108 (90 Base) MCG/ACT inhaler Inhale 2 puffs into the lungs every 6 (six) hours as needed for Wheezing. cetirizine 10 MG tablet Take 1 tablet (10 mg total) by mouth daily. Continuous Blood Gluc Sensor (DEXCOM G6 SENSOR) [facility] 2 Continuous Blood Gluc Transmit (DEXCOM G6 TRANSMITTER) [facility] 2 diazePAM 5 MG tablet Take 1 [...] (TOPAMAX) 200 MG tabletIndications:M S (multiple sclerosis) ([facility] HHS/HCC),Migraine without aura, not intractable, without status [...] carBAMazepine 200 MG tabletIndications:M S (multiple sclerosis) ([facility] H[facility]/HCC),Migraine without aura, not intractable, without status [...] 23 promethazine 6.25 MG/5ML syrupIndications:MS (multiple sclerosis) ([facility] H[facility]/HCC),Migraine without aura, not intractable, without status migrainosus Take 10 mLs (12.5 mg total) by mouth once as needed for Nausea. 120 mL 2 07/12/19 23 propranolol 20 MG tabletIndications:M S (multiple sclerosis) ([facility] H[facility]/HCC),Migraine without aura, not intractable, without status [...] (MAXALT) 10 MG tabletIndications:M S (multiple sclerosis) ([facility]/HCC),Migraine without aura, not intractable, without status migrainosus Take 1 tablet (10 mg total) by mouth as needed for Migraine. May repeat in 2 hours if needed 16 tablet 5 2 07/24/19 24 documented as of this encounter H&P Notes * Lidia Weston MD - 01/18/2022 8:38 AM CSTSummary: Neck pain that radiates across her posterior shoulders and down her arms to her hands Admission Note CC: Neck pain that radiates across her posterior shoulders and down her arms to her hands HPI: Alannah Galvin is a 41-year-old female patient seen today for follow-up for neck pain. She undergo evaluation for neck pain on 12/07/2021, and we discussed C5-6 cervical epidural steroid injection as a treatment option. She has been experiencing neck pain that radiates across her posterior shoulders and down her arms to her hands. She denies changes since her last office visit, which was on 01/04/2022. She underwent bilateral SI joint injections at that time, reports 50% improvement of the left low back pain, continues to experience right low back pain, which she said increases with walking and moving from sitting to standing. She says she has a sensation of coldness to her hands and feet as well as pain to her hands and feet. She said that the pain she is experiencing awakens her during the night. She denies urinary or bowel incontinence, denies anesthesia the saddle region. She does report constipation, says she follows with GI specialist and has an upcoming appointment in June,. Prior to Admission medications Medication Sig Start [...] Hernandez MD cetirizine 10 MG tablet Take 10 mg by mouth daily. Yes Doc [facility] Continuous Blood Gluc Sensor (DEXCOM G6 SENSOR) [facility] 09/28/21 Yes Hemant [facility] Abstract Continuous Blood Gluc Transmit (DEXCOM G6 TRANSMITTER) [facility] 09/27/21 Yes Hemant [facility] Abstract diazePAM (VALIUM) 5 MG tablet Take 3 tabs po 1 hour prior to procedure 01/04/22 Yes Lidia Weston MD diazePAM 5 MG tablet Take 5 mg by mouth every 8 (eight) hours as needed for Anxiety. Yes Hemant [facility] diphenhydrAMINE 25 MG capsule Take 25 mg by mouth every 6 (six) hours as needed for Itching. Yes Hemant [facility] doxycycline hyclate 100 MG tablet Take 1 tablet by mouth daily. on an empty stomach Yes Hemant [facility] EPINEPHrine (EPIPEN) 0.3 MG/0.3ML injection Auvi-Q 0.3 mg/0.3 mL injection, auto-injector ADMINISTER 0.3 MG IN THE MUSCLE 1 TIME Yes Hemant [facility] Abstract FARXIGA 10 MG Tab 09/16/21 Yes [...] Disposable Pump (OMNIPOD DASH PODS, GEN 4,) [facility] 09/28/21 Yes Hemant [facility] ketorolac (ACULAR LS) 0.4 % ophthalmic solution Apply 1 drop to eye 2 (two) times daily. Yes Hemant [facility] lamoTRIgine 100 MG tablet Take 100 mg by mouth 2 (two) times daily. Yes Doc [facility] losartan (COZAAR) 50 MG tablet Take 50 mg by mouth daily. Yes Hemant [facility] montelukast 10 MG tablet Take 10 mg by mouth nightly at bedtime. Yes Hemant [facility] ondansetron (ZOFRAN ODT) 4 MG disintegrating tablet Take 1 tablet (4 mg total) by mouth every 8 (eight) hours as needed for Nausea. 10/05/21 Yes Presley Hernandez MD ondansetron 8 MG tablet Take by mouth every 8 (eight) hours as needed for Nausea. Yes Doc [facility] pantoprazole EC (PROTONIX) 40 MG tablet Take 40 mg by mouth 2 (two) times daily. Yes Doc [facility] phentermine (ADIPEX-P) 37.5 MG tablet 09/16/21 Yes Doc [facility] promethazine 6.25 MG/5ML syrup Take 10 mLs (12.5 mg total) by mouth once as needed for Nausea. 08/08/21 Yes Presley Hernandez MD propranolol 20 MG tablet Take 1 tablet (20 mg total) by mouth 2 (two) times daily. 08/08/21 Yes Presley Hernandez MD rimegepant (NURTEC) 75 [...] by mouth daily. Patient taking differently: Take 60 mg by mouth daily. PA Not approved yet 11/28/21 Presley Hernandez MD Allergies Allergen Reactions ??? Mushroom Extract Complex Anaphylaxis ??? Pecans Anaphylaxis Past Medical History: Diagnosis Date ??? Anxiety disorder, unspecified ??? Asthma ??? Depression ??? Diabetes mellitus (CMS/HCC) ??? GERD (gastroesophageal reflux disease) ??? Hypertension ??? Migraines Past Surgical History: Procedure Laterality Date ??? ADENOIDECTOMY ??? GASTRIC SLEEVE PROCEDURE--P 2020 ??? REVISE ULNAR NERVE AT [place] Left ??? SINUS SURGERY PROC UNLISTED ??? TONSILLECTOMY Social History Socioeconomic History ??? Marital status: Single Spouse name: Not on file ??? Number of children: 0 ??? Years of education: Some college ??? Highest education level: Not on file Occupational History ??? Not on file Tobacco Use ??? Smoking status: Former Smoker Types: Cigarettes ??? Smokeless tobacco: Former User Vaping Use ??? Vaping Use: Never used [...] Stability: Not on file Review of Systems: 12 point review of systems was reviewed and is negative other than listed in HPI. She denies urinary or bowel incontinence, denies anesthesias in saddle region. She does report sheexperiences constipation, does follow with GI specialist PHYSICAL EXAM Filed Vitals: 01/18/22 0800 BP: (!) 145/95 Pulse: 84 Resp: 20 Temp: 97.5 ??F (36.4 ??C) TempSrc: Tympanic SpO2: 99% Weight: 95.3 kg (210 lb) Height: 5' 4 (1.626 m) General: alert, appears stated age and cooperative. Body mass index is 36.05 kg/m??. Skin: normal and no rash or abnormalities HEENT: neck supple with midline trachea Lungs: no respiratory distress Heart: regular rate and rhythm Abdomen: soft Neuro: No redness, warmth, edema, or sign of infection noted to the shoulder or cervical spine region. Motor strength testing of the upper extremities is 5/5 with shoulder abduction, elbow flexion extension, hostess party sales representative bilaterally ASSESSMENT Cervical radiculopathy PLAN Alannah Galvin is a 41-year-old female patient seen today for follow-up for neck pain. She undergo evaluation for neck pain on 12/07/2021, and we discussed C5-6 cervical epidural steroid injection as a treatment option. She has been experiencing neck pain that radiates across her posterior shoulders and down her arms to her hands. The procedure was described in detail as were the risks, benefits and alternative of treatments. Risks including, but not limited to infection, permanent neurological deficit due to nerve root injury, bleeding, anaphylaxis, flushing, increased urinary frequency,cerebral spinal fluid leak, paralysis, spinal cord injury, thinning of the skin, elevations in blood glucose levels, thinning of the bones were reviewed with her, and she verbalized understanding. She is agreeable to plan to proceed today with the cervical epidural steroid injection procedure, which will be completed by Dr. Weston. She will follow-up as needed. NICO BLANDON Patient seen and agrees with plan ER OPERATOR ER OPERATOR ER OPERATOR documented in this encounter OR Notes * Op Note - Lidia Weston MD - 01/18/2022 8:56 AM CST PROCEDURE: midline CERVICAL INTERLAMIINAR EPIDURAL STEROID INJECTION [...] IN STABLE CONDITION WITH APPROPRIATE POST-PROCEDURE INSTRUCTIONS. ER OPERATOR documented in this encounter Plan of Treatment Upcoming Encounters Date Type Department Care Team (Late st Contact Info) Description 04/15/2024 1:00 PM JEEPER OPERATOR Office Visit [facility] - [address], [address] [place] [phone] Presley Hernandez MD [address] [place] [address] [phone] 04/30/2024 10:40 AM JEEPER OPERATOR Office Visit [facility] [place] - [address], [address] [place] [phone] Presley Hernandez MD [address] [place] [phone] documented as of this encounter Procedures Procedure Name Priority Date/Time Associated Diagnosis Comments NJX INTERLAMINAR CRV/THRC 01/18/2022 8:41 AM JEEPER OPERATOR cervical radiculopathy XR PAIN CLINIC C-ARM Today 01/18/2022 8:17 AM JEEPER OPERATOR documented in this encounter Results * XR PAIN CLINIC C-ARM (01/18/2022 8:17 AM JEEPER OPERATOR) Narrative Radiology, Technologist - 01/18/2022 8:17 AM JEEPER OPERATOR This report does not contain a radiologist's [...] to surgery, 1 dose, Starting on Mariaelena 01/18/22 at 0826, Until Mariaelena 01/18/22 at 1129, Patient to perform oral care first. Swish/Gargle in mouth for 30 seconds, and then discard, prior to going to surgery/ If ventilated use saturated swab to clean oral cavity., Pre-Op HYDROcodone-acetaminophen (NORCO) 5-325 MG tablet 1 dose, Starting on Mariaelena 01/18/22 at 0830, Until Mariaelena 01/18/22 at 0831, Created by cabinet override Given 01/18/2022 8:31 AM JEEPER OPERATOR 2 tablets documented in this encounter Active and Recently Administered Medications Times are shown in JEEPER OPERATOR. PRN Medication Order 01/16/2022 01/17/2022 01/18/2022 chlorhexidine (PERIDEX) 0.12 % solution 15 mL 15 mL, Mouth/Throat, PRN, Prior to surgery, 1 dose, Starting on Mariaelena 01/18/22 at 0826, Until Mariaelena 01/18/22 at 1129, Patient to perform oral care first. Swish/Gargle in mouth for 30 seconds, and then discard, prior to going to surgery/ If ventilated use saturated swab to clean oral cavity., Pre-Op dexamethasone PF (DECADRON) injection (CANCELED) As needed, Starting on Mariaelena 01/18/22 at 0848, Until Mariaelena 01/18/22 at 0852, Intra-Op 0848 (Given - Provid er: Lidia Weston MD) iopamidol (ISOVUE-M 300) 61 % injection (CANCELED) As needed, Starting on Mariaelena 01/18/22 at 0848, Until Mariaeelna 01/18/22 at 0852, Intra-Op 0848 (Given - Provid er: Lidia Weston MD) lidocaine (PF) (XYLOCAINE) 1 % injection (CANCELED) As needed, Starting on Mariaelena 01/18/22 at 0846, Until Mariaelena 01/18/22 at 0852, Intra-Op 0846 (Given - Provid er: Lidia Weston MD) No Frequency Medication Order 01/16/2022 01/17/2022 01/18/2022 HYDROcodone-acetaminophen (NORCO) 5-325 MG tablet (COMPLETED) 1 dose, Starting on Mariaelena 01/18/22 at 0830, Until Mariaelena 01/18/22 at 0831, Created by cabinet override 0831 (Given - Provid er: Tyra Sterling RN) documented in this encounter Care Teams Sales Training Coordinator Relationship Specialty Start Date End Date Deedee Low PA [address] [place] [address] PCP - General PHYSICIAN SHEET METAL OPERATOR 07/22/20 documented as of this encounter
--- OUTSIDE RECORDS SUMMARY | 2024-02-24 17:00 | XMS_ITS | Encounter Summary ---
Author Organization [facility] Address [address] [place] [address]. [place], [place] [id number] [place] [address] Care Team Providers Care Furnace Firer Name Role Phone Deedee Low Primary Care Provider [phone] Reason for Referral * Surgical (Routine) - Closed Specialty Diagnoses / Procedures Referred By Angelita silva Referred To Contact Procedures Case request operating room: INJECTION EPIDURAL STEROID CERVICAL C5-6 Tania Yang APNP Phone: tel: fax: Referral ID Status Reason Start Date Expiration Date Visits Re quested Visits Authorized [id number] Closed 12/07/2021 12/07/2022 1 1 Encounter Details Date Type Department Care Team (Late st Contact Info) Description 12/07/[address] [facility] [place] [address] [phone] Tania Yang APNP [address] [place] [phone] Social History Tobacco Use Types Packs/Day Years [...] st Contact Info) Description 04/15/2024 1:00 PM LIME MIXER TENDER Office Visit [facility] - [address], [facility] [address] [place] [phone] Presley Hernandez MD [address] [place] [address] 04/30/2024 10:40 AM LIME MIXER TENDER Office Visit [facility] - [address], [facility] [address] [place] [phone] Presley Hernandez MD [address] [place] [address] Scheduled Orders Name Type Priority Associated Diagnoses Orde r Schedule Case request operating room: INJECTION EPIDURAL STEROID CERVICAL C5-6 Case Request Routine Once for 1 Occur rences starting 12/07/2021 until 12/07/2021 documented as of this encounter Visit Diagnoses Not on filedocumented in this encounter Care Teams Furnace Firer Relationship Specialty Start Date End Date Deedee Low PA [address] [place] [address] PCP - General PHYSICIAN MOTORCOACH DRIVER 07/22/20 documented as of this encounter
--- OUTSIDE RECORDS SUMMARY | 2024-02-24 17:00 | XMS_ITS | Encounter Summary ---
Author Organization [facility] Address [address] [place] [address]. [place], [place] [phone] [place] [address] Care Team Providers Care Yarder Operator Name Role Phone Deedee Lwo Primary Care Provider [phone] Encounter Details Date Type Department Care Team (Latest Contact Info) Description 10/26/2021 Travel Social History Tobacco Use Types Packs/Day [...] st Contact Info) Description 04/15/2024 1:00 PM MAT PACKER Office Visit [facility] - [address], [address] [place] [address] Presley Hernandez MD [address] [place] [address] 04/30/2024 10:40 AM MAT PACKER Office Visit [facility] - [address], [address] [place] [address] Presley Hernandez MD [address] [place] [address] documented as of this encounter Visit Diagnoses Not on filedocumented in this encounter Care Teams Yarder Operator Relationship Specialty Start Date End Date Deedee Low PA [address] [place] [address] PCP - General PHYSICIAN ALUMINUM MOLDING MACHINE OPERATOR 07/22/20 documented as of this encounter
--- OUTSIDE RECORDS SUMMARY | 2024-02-24 17:00 | XMS_ITS | Encounter Summary ---
Author Organization [facility] Address [address] [place] [address]. [place], [place] [address] [place] [address] Care Team Providers Care Senior Abap Developer Name Role Phone Deedee Low Primary Care Provider [phone] Reason for Referral * Imaging (Routine) - Closed Specialty Diagnoses / Procedures Referred By Angelita silva Referred To Contact Diagnoses MS (multiple sclerosis) ([facility]) Procedures IR LUMB PUNCTURE DIAGNOSTIC Presley Hernandez MD [address] [place] [address] Phone: tel: fax: [place] [address] Phone: tel: Referral ID Status Reason Start Date Expiration Date Visits Re quested Visits Authorized [id number] Closed 08/08/2021 09/07/2022 2 2 Reason for Visit * Imaging (Routine) - Closed Specialty Diagnoses / Procedures Referred By Angelita silva Referred To Contact Diagnoses MS (multiple sclerosis) ([facility]) Procedures IR LUMB PUNCTURE DIAGNOSTIC Presley Hernandez MD [address] [place] [address] Phone: tel: fax: [facility] [place] [address] Phone: tel: Referral ID Status Reason Start Date Expiration Date Visits Re quested Visits Authorized [id number] Closed 08/08/2021 09/07/2022 2 2 Encounter Details Date Type Department Care Team (Latest Contact Info) Description 09/07/2021 7:36 AM CDT - 09/07/2021 2:20 PM CDT Hospital [facility] [place] [place] [address] Presley Hernandez MD [address] [place], [place] [id number] Discharge Disposition: Home or Self Care (Routine [...] Sign Reading Time Taken Comments Blood Pressure 135/92 09/07/2021 1:55 PM CDT Pulse 81 09/07/2021 11:30 AM CDT Temperature 36.6 ??C (97.8 ??F) 09/07/2021 1:55 PM CD T Respiratory Rate 16 09/07/2021 1:55 PM CDT Oxygen Saturation 98% 09/07/2021 1:30 PM CDT Inhaled Oxygen Concentration - - Weight - - Height - - Body Mass Index - - documented in this encounter Discharge Instructions * Discharge Instructions* Bailey Castelan RN - 09/07/2021 9:14 AM CDT Rest today. Prefer 12 hours bedrest with bathroom privileges. You may remove your bandage and shower after 24 hours. Increase your fluid intake for the next 24 hours. You may resume taking any medications that were being held prior to your exam after 24 hours. Take tylenol for any headache. Caffeine may also be helpful. If you experience a severe headache lasting longer than 24 hours and is unrelieved with tylenol, caffeine and increasing your fluid intake please contact interventional radiology at [phone]. Follow up with your ordering provider to discuss the results of your exam. * Attachments The following attachments cannot be sent through Care Everywhere. * Lumbar Puncture Discharge Instructions (Italian) documented in this encounter Medications at Time of Discharge albuterol sulfate HFA 108 (90 Base) MCG/ACT inhaler Inhale 2 puffs into the lungs every 6 (six) hours as needed for Wheezing. cetirizine 10 MG tablet Take 1 tablet (10 mg total) by mouth daily. diazePAM 5 MG tablet Take 1 tablet (5 mg total) by mouth every 8 (eight) hours as needed for Anxiety. diphenhydrAMINE 25 MG capsule Take 1 capsule (25 mg total) by mouth every 6 (six) hours as needed for Itching. doxycycline hyclate 100 MG tablet Take 1 tablet (100 mg total) by mouth daily. on an empty stomach insulin aspart 100 UNIT/ML injection (PEN) Inject [...] (TOPAMAX) 200 MG tabletIndications:MS (multiple sclerosis) (CMS/HCC [facility]/HCC),Migraine without aura, not intractable, without status migrainosus Take 1 tablet (200 mg total) by mouth 2 (two) times daily. 60 tablet 6 08/08/2021 ADVAIR DISKUS 250-50 MCG/ACT inhaler 08/28/2021 3 buPROPion SR 100 MG 12 hr tablet Take 100 mg by mouth 2 (two) times daily. 2 carBAMazepine 200 MG tabletIndications:MS (multiple sclerosis) ([facility]),Migraine without aura, not intractable, without status migrainosus Take 0.5 tablets (100 mg total) by mouth 3 (three) times daily. 90 tablet 6 08/08/2021 3 ketorolac 0.4 % ophthalmic solution 1 drop 4 (four) times daily. 2 lamoTRIgine (LAMICTAL) 100 MG tablet Take 100 mg by mouth daily. 05/29/2021 2 lisinopril 20 MG tablet Take 20 mg by mouth daily. 06/16/2021 2 ondansetron 8 MG tablet Take by mouth every 8 (eight) hours as needed for Nausea. 3 pantoprazole EC 40 MG tablet Take 40 mg by mouth every 12 (twelve) hours. 2 promethazine 6.25 MG/5ML syrupIndications:MS (multiple sclerosis) ([facility]),Migraine without aura, not intractable, without status migrainosus Take 10 mLs (12.5 mg total) by mouth once as needed for Nausea. 120 mL 5 08/08/2021 3 propranolol 20 MG tabletIndications:MS (multiple sclerosis) ([facility]),Migraine without aura, not intractable, without [...] rizatriptan (MAXALT) 10 MG tabletIndications:MS (multiple sclerosis) ([facility] H[facility]/HCC),Migraine without aura, not intractable, without status migrainosus Take 1 tablet (10 mg total) by mouth as needed for Migraine. May repeat in 2 hours if needed 16 tablet 5 08/08/2021 4 ziprasidone 20 MG capsule Take 60 mg by mouth daily. 2 documented as of this encounter Nursing Notes * Dimple Thomas RN - 09/07/2021 11:15 AM CDT Pt. C/o back pain. Tylenol given * Coty Mcneill RN - 09/07/2021 9:17 AM CDT [id number] IR nurse aware that patients has contact. 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 Office Visit [facility] - [address], [facility] [address] [place] [phone] Presley Hernandez MD [address] [place] [address] 04/30/2024 10:40 AM PROFESSIONAL POKER PLAYER [facility] - [address], [address] [place] [phone] Presley Hernandez MD [address] [place] [address] documented as of this encounter Procedures Procedure Name Priority Date/Time Associated Diagnosis Comments IR LUMB PUNCTURE DIAGNOSTIC Routine 09/07/2021 10:06 AM CDT MS (multiple sclerosis) ([facility]) MYELIN OLIGODENDROCYTE GLYCOPROTEIN(MOG)ANTIBO DY W/REFLEX TITER, SERUM Routine 09/07/2021 9:50 AM CDT CELL COUNT CSF Routine 09/07/2021 9:50 AM CDT GLUCOSE CSF Routine 09/07/2021 9:50 AM CDT ANGIOTENSIN I ENZYME CSF Routine 09/07/2021 9:50 AM CDT PROTEIN TOTAL CSF Routine 09/07/2021 9:5 0 AM CDT MISCELLANEOUS LAB TEST Routine 2 9:50 AM CDT MYELIN BASIC PROTEIN, CSF Routine 09/07/2021 9:50 AM CDT IGG SYNTHESIS RATE *CSF AND SERUM REQUIRED* Routine 09/07/2021 8:20 AM CDT MISCELLANEOUS LAB TEST Routine 2 8:20 AM CDT PLATELET COUNT, AUTO Routine 09/07/2021 8:20 AM CDT PARTIAL THROMBOPLASTIN TIME,PTT Routine 09/07/2021 8:20 AM CDT PROTHROMBIN TIME, VENOUS Routine 09/07/2021 8:20 AM CDT documented in this encounter Results * IR LUMB PUNCTURE DIAGNOSTIC (09/07/2021 10:06 AM CDT) Anatomical Region Laterality Modality Spine Interventional R adiology, Radiographic Imaging, Radiographic Imaging 09/07/2021 12:5 1 PM CDT Impressions 09/07/2021 1:01 PM CDT IMPRESSION: Fluoroscopically guided lumbar puncture with acquisition of diagnostic fluid for laboratory evaluation. Opening pressure 10 cm H2O. Ordered By: PRESLEY HERNANDEZ Interpreted By: Cb Loaiza, 09/07/2021 12:51 PM Narrative 09/07/2021 1:01 PM CDT IMAGING STUDIES: ??IR LUMB PUNCTURE DIAGNOSTIC ? DATE: ??09/07/2021 8:57 AM HISTORY: ??MS ?41-year-old female with reported history of right facial pain, migraine headaches, dizziness, and ear ringing sensation/tinnitus. Neuromusculoskeletal medicine clinical note of 08/08/2021 was reviewed. Clinical concern for demyelinating disease. Reported height of 5 feet 4 inches and weight of 210 pounds. COMPARISON: ??MRI brain and internal auditory canal 09/04/2021. MRI brain 07/03/2021. DISCUSSION: Following discussion of the risks, benefits, and alternatives to the procedure, informed written consent was obtained from the patient. Discussed risks included but were not limited to spinal fluid leak, headache, bleeding, infection, nerve damage, paralysis, bladder and bowel problems and worsening of current symptoms. The patient agreed to proceed with the procedure. Patient was placed prone on the fluoroscopy table. On dietetics teacher fluoroscopy, there is a transitional vertebral body at the lumbosacral junction. At the thoracolumbar junction, transitional vertebral body with potential rudimentary left rib. The lumbar level was fluoroscopically localized and marked which may correspond to L3 or L4 level depending on the designation of the transitional vertebral bodies. Timeout procedure performed. Patient was sterilely prepped and draped and 5 mL lidocaine 1% utilized for local anesthesia. Using fluoroscopic guidance, a 22-gauge 5 inch length needle was advanced into the thecal sac with return of clear CSF. Opening pressure 10 cm H2O. A total of approximately 9 mL CSF acquired by gravity drainage into 4 vials. Needle was removed and compression applied. Sterile bandage applied. Patient tolerated the procedure well. Fluoroscopy time: 0.6 minutes Images acquired for the study: 2 Recorded radiation exposure: Total ED ??26.6 mGy, total DAP ??3073 mGycm2. Procedure Note Cb Loaiza MD - 09/07/2021 IMAGING STUDIES: IR LUMB PUNCTURE DIAGNOSTICDATE: 09/07/2021 8:57AM HISTORY: MS 41-year-old female with reported history of right facialpain, migraine headaches, dizziness, and ear ringing sensation/tinnitus.Neuromusculoskeletal medicine clinical note of 08/08/2021 was reviewed.Clinical concern for demyelinating disease. Reported height of 5 feet 4inches and weight of 210 pounds. COMPARISON: MRI brain and internal auditory canal 09/04/2021. MRI brain07/03/2021. DISCUSSION: Following discussion of the risks, benefits, and alternatives to theprocedure, informed written consent was obtained from the patient.Discussed risks included but were not limited to spinal fluid leak,headache, bleeding, infection, nerve damage, paralysis, bladder and bowelproblems and worsening of current symptoms. The patient agreed to proceedwith the procedure. Patient was placed prone on the fluoroscopy table. On dietetics teacher fluoroscopy,there is a transitional vertebral body at the lumbosacral junction. At thethoracolumbar junction, transitional vertebral body with potentialrudimentary left rib. The lumbar level was fluoroscopically localized andmarked which may correspond to L3 or L4 level depending on the designationof the transitional vertebral bodies. Timeout procedure performed. Patient was sterilely prepped and draped and 5 mL lidocaine 1% utilizedfor local anesthesia. Using fluoroscopic guidance, a 22-gauge 5 inch length needle was advancedinto the thecal sac with return of clear CSF. Opening pressure 10 cm H2O. A total of approximately 9 mL CSF acquired by gravity drainage into 4vials. Needle was removed and compression applied. Sterile bandage applied.Patient tolerated the procedure well. Fluoroscopy time: 0.6 minutes Images acquired for the study: 2 Recorded radiation exposure: Total ED 26.6 mGy, total DAP 3073 mGycm2. IMPRESSION: Fluoroscopically guided lumbar puncture with acquisition of diagnosticfluid for laboratory evaluation. Opening pressure 10 cm H2O. Ordered By: PRESLEY HERNANDEZ Interpreted By: Cb Loaiza, 09/07/2021 12:51 PM Presley Hernandez MD INTERVENTIONAL RADIOLOGY Final Result * MYELIN OLIGODENDROCYTE GLYCOPROTEIN(MOG)ANTIBODY W/REFLEX TITER, SERUM (09/07/2021 9:50 AM CDT) [facility] MOG AB CBA S/P/B NEGATIVE NEGATIVE 09/26/19 6:11 PM CDT [employer] ANDREWANSHUL BAIRES Comment: This test was developed and its analytical performance characteristics have been determined by [employer] [place]. It has not been cleared or approved by FDA. This assay has been validated pursuant to the CLIA regulations and is used for clinical purposes. Test performed by [employer] [facility] ? [address] [facility], ? [place] [address] ? Supervisor Phosphorus Processing: Blanca Tellez MD,PHD,SKYLER Test Reported by [facility], [employer] [facility], [address] [place] [address] Car Arroyo M.D., Ph.D., Director of Laboratories , CLIA [id number] 09/07/2021 9:50 AM CDT Presley Hernandez MD LABORATORY Final Res ult [facility] [address] [place], [place] , * MISCELLANEOUS LAB TEST (09/07/2021 9:50 AM CDT) TEST NAME: [id number] lyme lolis ancheloody igg igm 09/07/2021 11:00 AM CDT [facility] SPECIMEN TYPE CSF .5ML 09/07/2021 11:00 AM CDT [facility] TEST RESULT: Flexitest 1 09/22/2021 7:08 PM CDT [employer]UL [facility] Comment: Flexitest 1 TESTS RESULTS--------UNITS--REF. RANGE--- LYME DISEASE ANTIBODY (IgG), IBL (CSF) LYME DISEASE AB (IgG), IMMUNOB NO BANDS DETECTED LYME DISEASE ANTIBODY (IgM), IMMUNOBLOT, CSF LYME DISEASE AB (IgM), IMMUNOB NO BANDS DETECTED REFERENCE RANGE: NO BANDS DETECTED Lyme Disease (Borrelia burgdorferi) immunoblot (IBL) testing of CSF should only be performed on patients whose serum is POSITIVE for Lyme disease antibodies using an FDA/CDC recommended testing algorithm (either the standard two-tiered or modified two-tiered algorithm). No interpretive criteria for Lyme Disease IBL results have been established for CSF. ??The presence of reactive antibodies in CSF may represent compartmental antibody production, suggestive of neuroborreliosis; however, their presence may represent a false positive result either due to nonspecific transudation of plasma antibodies across the blood-brain barrier, or non-specific cross-reactivity. The preferred test to aid in diagnosing neuroborreliosis is the Lyme Antibody Index for INSURANCE LOSS ASSESSOR infection, [facility] national test code 91935. Test performed by [employer] ? [address] [facility], ? [place] [address] ? Supervisor Phosphorus Processing: Blanca Tellez MD,PHD,SKYLER Test Reported by [facility], [employer] [place], [address] [place], [place] Car Arroyo M.D., Ph.D., Director of Laboratories , CLIA [id number] CSF, LUMBAR 09/07/2021 9:50 AM CDT us Presley Hernandez MD LABORATORY Final Res ult Performing Organization Address City/[facility]/ZIP Co de Phone Number [facility] [address] [place], [place] , [place] [phone] [facility] [address] [place] [address], [place] [phone] * ANGIOTENSIN I ENZYME CSF (09/07/2021 9:50 AM CDT) MITESH (CSF) 9 <=15 U/L 09/12/2021 11:25 AM CDT [employer] CHARLY LAY Comment: Test Performed by Joseph Mccann, [employer] [place], [address] [place], [place] Car Arroyo M.D., Ph.D., Director of Laboratories , CLIA [id number] CSF, LUMBAR 09/07/2021 9:50 AM CDT us Presley Hernandez MD BODY FLUIDS AND STOOLS OR DERABLES Final Result Performing Organization Address [facility] Co de Phone Number [facility]opiPIERREP[facility] [address] [place], [place] , [place] [phone] * MYELIN BASIC PROTEIN, CSF (09/07/2021 9:50 AM CDT) MYELIN BASIC PROTEIN (CSF) <2.0 2.0 - 4.0 mcg/L 09/14/2021 1:14 PM CDT [employer] CHARLY LY Comment: Reference ranges for Myelin Basic Protein: Result ? Interpretation 2.0 - 4.0 mcg/L ?Negative 4.1 - 6.0 mcg/L ?Weakly Positive Greater than 6.0 mcg/L ? Positive This test was developed and its analytical performance characteristics have been determined by [employer] [place], [place]. It has not been cleared or approved by the U.S. Food and Drug Administration. This assay has been validated pursuant to the CLIA regulations and is used for clinical purposes. Test Performed by [facility], [employer] [facility], [address] [place], [place] Car Arroyo M.D., Ph.D., Director of Laboratories , CLIA [id number] CSF, LUMBAR 09/07/2021 9:50 AM CDT Presley Hernandez MD BODY FLUIDS AND STOOLS OR DERABLES Final Result [facility] [address] [place], [place] , [place] [phone] * CELL COUNT CSF (09/07/2021 9:50 AM CDT) SPECIMEN TYPE CEREBROSPINAL FLUID 09/07/2021 11:07 AM CDT [facility] TOTAL VOLUME (CSF) 9.0 mL 09/07/2021 11:07 AM CDT [facility] COLOR (CSF) PINK 09/07/2021 11:07 AM CDT [facility] CLARITY (CSF) CLOUDY 09/07/2021 11:07 AM CDT [facility] RBC (FLUID) 2,353 /cumm 09/07/2021 11:07 AM CDT [facility] WBC (FLUID) 0 0 - 5 /cumm 09/07/2021 11:07 AM CDT [facility] CSF, LUMBAR 09/07/2021 9:50 AM CDT us Presley Hernandez MD BODY FLUIDS AND STOOLS OR DERABLES Final Result Performing Organization Address [facility]/ZIP Co de Phone Number [facility] [address] [place] [address], [place] [phone] * (ABNORMAL) GLUCOSE CSF (09/07/2021 9:50 AM CDT) GLUCOSE (CSF) 74(H) 40 - 70 MG/DL 09/07/2021 11:00 AM CDT [facility] CSF, LUMBAR 09/07/2021 9:50 AM CDT us Presley Hernandez MD BODY FLUIDS AND STOOLS OR DERABLES Final Result Performing Organization Address [facility] Co de Phone Number [facility] [address] [place] [address], [place] [phone] * (ABNORMAL) PROTEIN TOTAL CSF (09/07/2021 9:50 AM CDT) TOTAL PROTEIN (CSF) 53(H) 15 - 45 MG/DL 09/07/2021 11:00 AM CDT [facility] CSF, LUMBAR 09/07/2021 9:50 AM CDT us Presley Hernandez MD BODY FLUIDS AND STOOLS OR DERABLES Final Result Performing Organization Address City/[facility]/ZIP Co de Phone Number [facility] [address] [place] [address], [place] [phone] * MISCELLANEOUS LAB TEST (09/07/2021 8:20 AM CDT) TEST NAME: [id number] MYELIN OLIGOE 09/07/2021 11:15 AM CDT [facility] SPECIMEN TYPE SERUM .5ML 09/07/2021 11:15 AM CDT [facility] TEST RESULT: Flexitest 1 09/21/2021 2:18 AM CDT [employer] WIL BAIRES Comment: Flexitest 1 TESTS RESULTS--------UNITS--REF. RANGE--- MOG Ab CBA, Serum ?NEGATIVE ? NEGATIVE This test was developed and its analytical performance characteristics have been determined by [employer] [facility]. It has not been cleared or approved by FDA. This assay has been validated pursuant to the CLIA regulations and is used for clinical purposes. Test performed by [employer] ? [address], ? [place] [address] ? Supervisor Phosphorus Processing: Blanca Tellez MD,PHD,SKYLER Test Reported by [facility], [employer] [place], [address] [place], [place] Car Arroyo M.D., Ph.D., Director of Laboratories , [place] [id number] CSF, LUMBAR 09/07/2021 8:20 AM CDT us Presley Hernandez MD LABORATORY Final Res ult [facility] [address] [place] [address], [place] [phone] [facility] [address] [place] [address], [place] [phone] * IGG SYNTHESIS RATE BLOOD/CSF (09/07/2021 8:20 AM CDT) CSF IGG SYNTH RATE minus0.6 minus9.9- 3.3 mg/24 h 09/13/2021 1:10 PM CDT [facility] DOUGLASS-ANSHUL BAIRES IGG INDEX (CSF) 0.51 <0.66 1:10 PM CDT [employer] [facility] DOUGLASS-ANSHUL LLY Comment: The IgG Synthesis rate, CSF and IgG index, CSF are two formulae for estimating the amount of IgG produced in the central nervous system. ??Evidence of increased synthesis of IgG provides support for the diagnosis of multiple sclerosis. ALBUMIN (CSF) 38.1 8.0 - 42.0 mg/dL 09/13/2021 1:10 PM CDT [employer] WIL BAIRES IGG (CSF) 3.4 0.8 - 7.7 mg/dL 09/13/2021 1:10 PM CDT [facility] [facility] DOUGLASSROSALINO BAIRES IMMUNOGLOBULIN G 798 600 - 1,640 mg/dL 09/13/2021 1:10 PM CDT [employer] [facility] DOUGLASSROSALINO COOKY ALBUMIN S/P/B 4.6 3.5 - 5.2 g/dL 09/13/2021 1:10 PM CDT [facility] [facility] WIL LLY Comment: Test Performed by [facility] Mccann, [facility], [address] [place] [address] Car Arroyo M.D., Ph.D., Director of Laboratories , CLIA [id number] CSF & SERUM 09/07/2021 8:20 AM CDT Presley Hernandez MD LABORATORY Final Res ult [facility] [address] [place], [place] , [place] [phone] * (ABNORMAL) PLATELET COUNT, AUTO (09/07/2021 8:20 AM CDT) PLT 228 130 - 400 x10'3/uL 09/07/2021 8:42 AM CDT [facility] MPV 9.2(L) 9.3 - 12.2 FL 09/07/2021 8:42 AM CDT [facility] 09/07/2021 8:20 AM CDT us Cb Loaiza MD LABORATORY Final Resul t Performing Organization Address [facility] Co de Phone Number [facility] [address] [place] [address], [place] [phone] * PTT, PARTIAL THROMBOPLASTIN TIME (09/07/2021 8:20 AM CDT) PTT 31.9 25.1 - 36.5 SEC 09/07/2021 8:59 AM CDT [facility] 09/07/2021 8:20 AM CDT us Cb Loaiza MD LABORATORY Final Resul t [facility] [address] [place] [address], [place] [phone] * PROTIME/INR, VENOUS (09/07/2021 8:20 AM CDT) PROTIME 11.6 10.2 - 12.9 SEC 09/07/2021 8:59 AM CDT [facility] INR 1.0 09/07/2021 8:59 AM CDT [facility] Comment: Recommended INR Therapeutic Goals: ??2.0-3.0 Routine Therapy ??2.5-3.5 Mechanical Prosthetic Valves (High Risk) 09/07/2021 8:20 AM CDT us Cb Loaiza MD LABORATORY Final Resul t [facility] [address] [facility] [place] [address], [place] [phone] documented in this encounter Visit Diagnoses Diagnosis MS (multiple sclerosis) ([facility]/H[facility]) Multiple sclerosis documented in this encounter Administered Medications Inactive Administered Medications - up to 3 most recent administrations Medication Order MAR Action Action Date Dose Rate Site acetaminophen (TYLENOL) tablet 1,000 mg 1,000 mg, Oral, Once, 1 dose, On Mariaelena 09/07/21 at 1130, Maximum dose of acetaminophen is 4000 mg from all sources in 24 hours. Given 09/07/2021 11:15 AM CDT 1,000 mg HYDROcodone-acetaminophen (NORCO) 5-325 MG tablet 1 tablet 1 tablet, Oral, Once, 1 dose, On Mariaelena 09/07/21 at 1300, Maximum dose of acetaminophen is 4000 mg from all sources in 24 hours. Given 09/07/2021 12:39 PM CDT 1 tablet documented in this encounter Active and Recently Administered Medications Times are shown in CDT. Scheduled Medication Order 09/05/2021 09/06/2021 09/07/2021 acetaminophen (TYLENOL) tablet 1,000 mg (COMPLETED) 1,000 mg, Oral, Once, 1 dose, On Mariaelena 09/07/21 at 1130, Maximum dose of acetaminophen is 4000 mg from all sources in 24 hours. 1115 (Given - Provid er: Dimple Thomas RN) HYDROcodone-acetaminophen (NORCO) 5-325 MG tablet 1 tablet (COMPLETED) 1 tablet, Oral, Once, 1 dose, On Mariaelena 09/07/21 at 1300, Maximum dose of acetaminophen is 4000 mg from all sources in 24 hours. 1239 (Given - Provid er: Coty Randhawa V RN) lidocaine (XYLOCAINE) 1 % injection SOLN 5 mL 5 mL, Intradermal, Once, 1 dose, On Mariaelena 09/07/21 at 1030 1030 (Canceled Entry - Provider: Automatic Discharge Provider - Comment: Automatically canceled at discontinue of medication order) documented in this encounter Care Teams Senior Abap Developer Relationship Specialty Start Date End Date Deedee Low PA [address] [place] [address] PCP - General PHYSICIAN COMMUNICATIONS ASSISTANT 07/22/20 documented as of this encounter
--- OUTSIDE RECORDS SUMMARY | 2024-02-24 17:00 | XMS_ITS | Encounter Summary ---
Author Organization [facility] Address [address] [place] [address]. [place] [address] [place] [address] Care Team Providers Care Meteorology Faculty Member Name Role Phone Jennifermary Deedee DOWELL Primary Care Provider [phone] Reason for Visit * Reason Onset Date Comments Results 10/25/2021 Encounter Details Date Type Department Care Team (Late st Contact Info) Description 10/25/[address] [facility] Multispecialty Care - [facility] [address] [facility], [address] [place] [phone] Presley Hernandez MD 3 [place], [place] [id number] Results Social History Tobacco Use Types Packs/Day [...] Progress Notes * Michelle Begum RN - 10/26/2021 8:29 AM CDT Spoke with patient to let her know that her EEG has updated to say no auth required. * Gia Bone - 10/25/2021 1:11 PM CDT Alannah called today to see if her EEG is authorized. Please call her to discuss. Michelle called from referrals and said they don't get the authorizations./ * Michelle Begum RN - 10/25/2021 12:50 PM CDT Patient verbalized understanding. 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 For this I will refer her to our pain specialist to get further opinion. documented in this encounter Plan of Treatment Upcoming Encounters Date Type Department Care Team (Late st Contact Info) Description 04/15/2024 1:00 PM OXYACETYLENE TORCH OPERATOR Office Visit [facility] Multispecialty Care - [facility] [address] [facility], [address] [place] [address] Presley Hernandez MD 3 [place] [address] 04/30/2024 10:40 AM OXYACETYLENE TORCH OPERATOR Office Visit [facility] Multispecialty Care - [facility] [address] [facility], [address] [place] [address] Presley Hernandez MD 3 [place] [address] documented as of this encounter Visit Diagnoses Not on filedocumented in this encounter Care Teams Meteorology Faculty Member Relationship Specialty Start Date End Date Deedee Low PA [address] [place] [address] PCP - General PHYSICIAN SYSTEMS SECURITY CONSULTANT 07/22/20 documented as of this encounter
--- OUTSIDE RECORDS SUMMARY | 2024-02-24 17:00 | XMS_ITS | Encounter Summary ---
Author [employer] Preferred Language Dutch Marital Status Single Confucianist Affiliation Unknown Race White Ethnic Group Not or Lati no Author Organization [facility] Address [address] [place] [address]. [place], [place] [id number] [place] [address] Care Team Providers Care Snow Plow Tractor Operator Name Role Phone Deedee Low Primary Care Provider [phone] Reason for Visit * Reason Onset Date Comments Returned Call 11/29/2021 Encounter Details Date Type Department Care Team (Late st Contact Info) Description 11/29/2021 Telephone [facility] [place] [address] [id number] Jo Ann Marley RN Returned Call Social History Tobacco Use Types Packs/Day [...] PM CDT documented as of this encounter Progress Notes * Jo Ann Marley RN - 11/29/2021 4:07 PM CDT PT CALLED SCHED LINE ASKING FOR CALL BACK, I RETURNED HER CALL AND SHE VERBALIZED THAT SHE HAS AN PPT SCHEDULED WITH OUR CLINIC FOR 12/14/[address] CASPER, SHE IS AWARE WE NEED PRIOR AUTH BUT HER INSCHANGES OF December 09 2021. SHE CALLED [employer] TODAY AND THEY SUPPLIED HER WITH A GRP NUMBER AND MEMBER NUMBER. THEY ALSO ADVISED HER TO TELL OUR OFFICE TO GO AHEAD AND SUBMIT FOR AUTH NOW, WE SHOULDASK FOR IT TO BE EXPEDITED B/C OF INSURANCE CHANGE. GRP # [id number] [employer] OPEN ACCESS PLUS SENDING THIS INFO TO [facility] TO REQUEST AUTH BE STARTED WITHIN THE NEXT 24 HOURS. documented in this encounter Plan of Treatment Upcoming Encounters Date Type Department Care Team (Late st Contact Info) Description 04/15/2024 1:00 PM MEDICAL TECHNOLOGIST HEMATOLOGY [facility] - [address], [facility] [address] [place] [phone] Presley Hernandez MD [address] [place] [address] 04/30/2024 10:40 AM MEDICAL TECHNOLOGIST HEMATOLOGY Office Visit [facility] Care - [address], [address] [place] [phone] Presley Hernandez MD [address] [place] [address] documented as of this encounter Visit Diagnoses Not on filedocumented in this encounter Care Teams Snow Plow Tractor Operator Relationship Specialty Start Date End Date Deedee Low PA [address] [place] [address] PCP - General PHYSICIAN RN CLINICAL 07/22/20 documented as of this encounter
--- OUTSIDE RECORDS SUMMARY | 2024-02-24 17:00 | XMS_ITS | Encounter Summary ---
Author Organization [facility] Address [address] [place] [address]. [place], [place] [address] [place] [address] Care Team Providers Care Dealer Card Room Name Role Phone Deedee Low Primary Care Provider [phone] Reason for Visit * Consultation/Treatment (Routine) - Closed Specialty Diagnoses / Procedures Referred By Contact Referred To Contact PAIN MANAGEMENT / [facility] Pain Management Diagnoses Lumbosacral radiculopathy Procedures OFFICE/OUTPT VISIT,NEW,LEVL III OFFICE/OUTPT VISIT,NEW,LEVL IV OFFICE/OUTPT VISIT,NEW,LEVL V OFFICE/OUTPT VISIT,EST,LEVL III OFFICE/OUTPT VISIT,EST,LEVL IV OFFICE/OUTPT VISIT,EST,LEVL V Presley Hernandez MD 3 [place] [address] Phone: tel:[phone] fax:[phone] [facility] Interventional [place] [address] Phone: [phone]: [phone] Referral ID Status Reason Start Date Expiration Date V isits Requested Visits Authorized [id number] Closed Specialty Services 10/25/2021 11/25/2022 10 10 Encounter Details Date Type Department Care Team (Latest Contact Info) Description 11/01/2021 7:49 AM CDT - 11/01/2021 11:59 PM CDT Hospital Encounter [facility] [place] [address] [phone] Tania Yang APNP [address] [place] [phone] Discharge Disposition: Home or Self Care (Routine [...] Sign Reading Time Taken Comments Blood Pressure 138/95 11/01/2021 8:11 AM CDT Pulse 72 11/01/2021 8:11 AM CDT Temperature 36.3 ??C (97.3 ??F) 11/01/2021 8:11 AM CD T Respiratory Rate 20 11/01/2021 8:11 AM CDT Oxygen Saturation 100% 11/01/2021 8:11 AM CDT Inhaled Oxygen Concentration - - Weight 97.1 kg (214 lb) 11/01/2021 8:11 AM CDT Height 162.6 cm (5' 4 ) 11/01/2021 8:11 AM CDT Body Mass Index 36.73 11/01/2021 8:11 AM CDT documented in this encounter Medications at Time of Discharge albuterol sulfate HFA 108 (90 Base) MCG/ACT inhaler Inhale 2 puffs into the lungs every 6 (six) hours as needed for Wheezing. cetirizine 10 MG tablet Take 1 tablet (10 mg total) by mouth daily. Continuous Blood Gluc Sensor (DEXCOM G6 SENSOR) [facility] 2 Continuous Blood Gluc Transmit (DEXCOM G6 TRANSMITTER) [facility] 2 diazePAM 5 MG tablet Take 1 [...] (TOPAMAX) 200 MG tabletIndications:M S (multiple sclerosis) ([facility]/H[facility]),Migraine without aura, not intractable, without [...] TABLET BY MOUTH TWICE DAILY 07/19/19 23 buPROPion SR 100 MG 12 hr tablet Take 100 mg by mouth 2 (two) times daily. 12/08/19 22 carBAMazepine 200 MG tabletIndications:M S (multiple sclerosis) ([facility]),Migraine without aura, not intractable, without [...] drop 4 (four) times daily. 01/19/20 22 lamoTRIgine (LAMICTAL) 100 MG tablet Take 100 mg by mouth daily. 2 12/08/19 22 lisinopril 20 MG tablet Take 20 mg by mouth daily. 2 12/08/19 22 ondansetron (ZOFRAN ODT) 4 MG disintegrating tabletIndications:N ausea Take 1 tablet (4 mg total) by mouth every 8 (eight) hours as needed for Nausea. 20 tablet 11 2 09/09/19 24 ondansetron 8 MG tablet Take by mouth every 8 (eight) hours as needed for Nausea. 07/12/19 23 pantoprazole EC 40 MG tablet Take 40 mg by mouth every 12 (twelve) hours. 12/08/19 22 phentermine (ADIPEX-P) 37.5 MG tablet 2 10/06/19 23 promethazine 6.25 MG/5ML syrupIndications:MS (multiple sclerosis) ([facility]CC),Migraine without aura, not intractable, without status migrainosus Take 10 mLs (12.5 mg total) by mouth once as needed for Nausea. 120 mL 2 07/12/19 23 propranolol 20 MG tabletIndications:M S (multiple sclerosis) ([facility] HHS/HCC),Migraine without aura, not intractable, [...] (MAXALT) 10 MG tabletIndications:M S (multiple sclerosis) ([facility] HHS/HCC),Migraine without aura, not intractable, without status migrainosus Take 1 tablet (10 mg total) by mouth as needed for Migraine. May repeat in 2 hours if needed 16 tablet 2 07/24/19 24 ziprasidone 20 MG capsule Take 60 mg by mouth daily. 12/08/19 22 documented as of this encounter H&P Notes * NICO Blandon - 11/01/2021 8:45 AM CDTSummary: Low back pain from upper lumbar region to lower lumbar that radiates toward the right lateral hip Interventional Pain Management History & Physical Referring Provider: Presley Hernandez MD Chief Complaint: Low back pain from upper lumbar region to lower lumbar that radiates toward the right lateral hip. HPI: Alannah Ruano is a 41-year-old female who is seen today as a new patient at referred by Presley Hernandez MD for lumbar radiculopathy. She reports history of migraine headaches, which are being addressed by Dr. Hernandez. She does state that she has headache pain, mid back pain, radiating pain, states headaches run through her body . She has had ongoing low back pain for years, that radiates toward the right hip. She is the pain begins at the upper lumbar region/mid back, and radiates to the lower lumbar region. She said that she did undergo trigger point injections at age 21, and has received customer care associate for management of her back pain. She mentions a couple of injuries whenluciana was a child, said that she injured her back during a gymnastics session, fell down some stairs,fell from a horse, but is not able to attribute the back pain specifically to these factors. She says she does not remember the incidents, but said her mother did let her know that they occurred. Shesaid the pain seems to start at her head, face, shoulders, collarbone, sometimes radiates to the hip, frequently to her toes, through her arm, is also one side or the other. She rates her pain today as 5 on a 0-to-10 scale, with an overall average of 5-6 on a 0-to-10 scale, worst pain being 9 on a 0-to-10 scale, least pain being 1 on a 0-to-10 scale. She described the pain as aching, sharp, electric shocklike, moderate, constant lately, intermittent, very variable, worsening over time. Associated symptoms includes numbness and tingling over thighs and calves, says she has episodic numbness ofher legs, like her legs are going to sleep , said this occurs a couple times a week and lasts from30 minutes to 1 hour. She also reports some nausea and headaches. She denies urinary or bowel incontinence, denies anesthesia the saddle region. She says she is experiencing difficulty urinating/emptying her bladder, says she notices 6 months ago, does mention she will be undergoing evaluation withher primary care provider today for further evaluation. She said her pain is worsened with coughing, noise, exercise, bright lights, sitting, menstrual cycle, sneezing, moving from sitting to standing, cold, weather changes, stress fatigue. Facet related pain include lying down, massage, walking, relaxation, application of ice and heat, medications. Previous treatments tried: She has undergone physical therapy in 2003 at [facility], says she completed a couple of rounds of therapy for the back pain, which did not really provide relief. She said she has gotten some benefit with application of cold, uses a heating pad, also has a massage/heat pad which has been beneficial. She has tried chiropractic treatment with Dr. Crocker in [place], [place], which she said has been helpful. She says she does follow with psychologist/psychiatrist. Medications tried for pain relief: She has tried hydrocodone, tramadol, ketorolac, gabapentin, Flexeril, carbamazepine, topical marijuana cream, all of which have been beneficial. Past Medical History: Diagnosis Date ??? Anxiety [...] use: Yes Comment: occasionally ??? Drug use: Not on file Comment: marijuana cream on elbow ??? Sexual [...] of Systems Constitutional: Negative. HENT: Negative. Eyes: She reports blurred vision, says she has undergone evaluation with neurological wound care technician forthe blurred vision. Respiratory: Negative. Cardiovascular: Negative. Gastrointestinal: Negative. Denies incontinence of bowels. Endocrine: Negative. Genitourinary: Denies urinary incontinence, does report difficulty with urination/emptying her bladder. She said this has been occurring for approximately 6 months. She does states she has an appointment with her primary care provider to discuss urinary difficulties today. Musculoskeletal: Low back pain from upper lumbar region to lower lumbar that radiates toward the right lateral hip. Skin: Negative. Allergic/Immunologic: Negative. Neurological: Migraine headaches, which are being addressed by Dr. Hernandez. She reports some intermittent numbness and tingling of her legs, said this occurs approximately 2 times per week, lasts for 30 minutes to an hour when it occurs, says her legs feel assist they are going to sleep . Hematological: Negative. Psychiatric/Behavioral: She does report history of depression, says she follows with psychiatrist. Filed Vitals: 11/01/21 0811 BP: (!) 138/95 Pulse: 72 Resp: 20 Temp: 97.3 ??F (36.3 ??C) TempSrc: Skin SpO2: 100% Weight: 97.1 kg (214 lb) Height: 5' 4 (1.626 m) Diagnostic Workup: She had an MRI of the cervical spine on 10/25/2021. The radiologist report was reviewed [...] spondylosis, as described above. Ordered By: PRESLEY HERNANEDZ Interpreted By: Ciaran Franco MD, 10/25/2021 11:46 AM She she had an MRI of the [...] AM Physical Exam Body mass index is 36.73 kg/m??. The patient is alert and oriented x 3 and follows directions and answers questions appropriately. Her skin is warm and dry. Mood and affect: Calm, pleasant, and cooperative. General examination of her heart, lungs and abdomen was unremarkable. The patient rises fromthe seated position without difficulty. Her gait is steady, no difficulty with heel and toe walk. No scarring, redness, lesions, or sign of infection noted to the lumbar region. She experiences pain to deep palpation across the lumbar facets, as well as pain with facet loading. Marked tenderness isnoted palpation of the SI joints, KAMILLA/thigh thrust, compression test are positive. Range of motion of her back is limited with right lateral flexion and extension. Sitting straight leg lift is negative bilaterally. Motor strength to lower extremities is 5/5 with hip flexion, knee extension and flexion, ankle dorsiflexion, plantar flexion and hallux extension bilaterally. No color change, redness, warmth, edema or discrepancy in calf size noted to the lower extremities. Sensation to palpation of the lower extremities is equal and intact bilaterally. No clonus and downgoing Babinski's bilaterally. Patellar reflexes are diminished. Achilles reflexes are 2/4 bilaterally. Dorsalis pedis pulsesare +2 bilaterally. Capillary refill of the lower extremities is less than 3 seconds bilaterally. Impression: Sacroiliitis Recommendations: I spent 45 minutes today reviewing the patient's medical record, obtaining history, performing an exam, ordering medications, tests, and/or procedures, documenting in the medical record, counseling and educating the patient/family/caregiver, reviewing and communicating test results and coordinationof care. She has been experiencing low back pain from upper lumbar region to lower lumbar that radiates toward the right lateral hip. I believe she has more than 1 generator of pain which include neuropathic pain, lumbar facet arthropathy, and SI joint pain, with the sacroiliitis being the primary source of her discomfort at this time. Marked tenderness is noted palpation of the SI joints, KAMILLA/thigh thrust, compression test are positive. We discussed a bilateral SI joint injection as a treatment option. The procedure was described in detail as were the risks, benefits and alternative treatments, and she verbalized understanding. Risks including, but not limited to infection, elevations inblood glucose levels, permanent neurological deficit due to nerve root injury, bleeding, anaphylaxis, flushing, cerebral spinal fluid leak, paralysis, spinal cord injury, thinning of the skin, thinning of the bones, muscle cramping, were reviewed with her and she verbalized understanding. She is agreeable to a plan to move forward with the SI joint injection procedure, which will be completed by Dr. Weston at her next office visit. Would consider bilateral L4-5, L5-S1 lumbar facets versus bilateral L4-5 lumbar transforaminal epidural steroid injections as potential future treatment options. It was my pleasure to participate in her care. Thank you for referring this very pleasant patient. NICO BLANDON CC: Presley Hernandez MD Cosigned by Lidia Weston MD at 11/02/2021 11:00 AM CDT documented in this encounter Plan of Treatment Upcoming Encounters Date Type Department Care Team (Late st Contact Info) Description 04/15/2024 1:00 PM DATER ASSEMBLER Office Visit [facility] Care - [address], [address] [place] [phone] Presley Hernandez MD [address] [place] [address] 04/30/2024 10:40 AM DATER ASSEMBLER [facility] [address] [facility], [address] [place] [phone] Presley Hernandez MD [address] [place] [address] documented as of this encounter Visit Diagnoses Not on filedocumented in this encounter Care Teams Dealer Card Room Relationship Specialty Start Date End Date Deedee Low PA [address] [place] [address] PCP - General PHYSICIAN ENVIRONMENTAL DEPARTMENT MANAGER 07/22/20 documented as of this encounter
--- OUTSIDE RECORDS SUMMARY | 2024-02-24 17:00 | XMS_ITS | Encounter Summary ---
Author Organization [facility] Address [address] [place] [address]. [place], [place] [address] [place] [address] Care Team Providers Care Fuel Agent Name Role Phone Deedee Low Primary Care Provider [phone] Encounter Details Date Type Department Care Team (Latest Contact Info) Description 10/04/2021 Scan HEALTH INFO SRVCS Scanned, Documents Social History Tobacco Use Types Packs/Day Years [...] st Contact Info) Description 04/15/2024 1:00 PM FAMILY CONSUMER SCIENCE FCS TEACHER Office Visit [facility] Multispecialty Care - [facility] [address] [facility], [address] [place] [address] Presley Hernandez MD 3 [place] [address] 04/30/2024 10:40 AM FAMILY CONSUMER SCIENCE FCS TEACHER Office Visit [facility] Multispecialty Care - [facility] [address] [facility], [address] [place] [address] Presley Hernandez MD 3 [place] [address] documented as of this encounter Visit Diagnoses Not on filedocumented in this encounter Care Teams Fuel Agent Relationship Specialty Start Date End Date Deedee Low PA [address] [place] [address] PCP - General PHYSICIAN INJECTION MOLD TECHNICIAN 07/22/20 documented as of this encounter
--- OUTSIDE RECORDS SUMMARY | 2024-02-24 17:00 | XMS_ITS | Encounter Summary ---
Author Organization [facility] Address [address] [place] [address]. [place], [place] [address] [place] [address] Care Team Providers Care Frozen Food Selector Name Role Phone Jennifermary Deedee DOWELL Primary Care Provider [phone] Encounter Details Date Type Department Care Team (Latest Contact Info) Description 09/07/2021 Travel Social History Tobacco Use Types Packs/Day [...] st Contact Info) Description 04/15/2024 1:00 PM DEVELOPMENT MGR Office Visit [facility] Group Multispecialty Care - [facility] [address] [facility], [address] [place] [address] Presley Hernandez MD 3 [place] [address] 04/30/2024 10:40 AM DEVELOPMENT MGR Office Visit [facility] Multispecialty Care - [facility] [address] [facility], [address] [place] [address] Presley Hernandez MD 3 [place] [address] documented as of this encounter Visit Diagnoses Not on filedocumented in this encounter Care Teams Frozen Food Selector Relationship Specialty Start Date End Date Deedee Low PA [address] [place] [address] PCP - General PHYSICIAN DISCOTHEQUE DANCER 07/22/20 documented as of this encounter
--- OUTSIDE RECORDS SUMMARY | 2024-02-24 17:00 | XMS_ITS | Encounter Summary ---
Author Organization [facility] Address [address] [place] [address]. [place], [place] [address] [place] [address] Care Team Providers Care Fur Matcher Name Role Phone Deedee Low Primary Care Provider [phone] Encounter Details Date Type Department Care Team (Latest Contact Info) Description 01/17/2022 Travel Social History Tobacco Use Types Packs/Day [...] Coronavirus/COVID-19? No / Unsure 01/17/2022 9:02 AM BANQUET CHEF documented as of this encounter Plan of Treatment Upcoming Encounters Date Type Department Care Team (Late st Contact Info) Description 04/15/2024 1:00 PM BANQUET CHEF Office Visit [facility] Multispecialty Care - [address], [address] [place] [address] Presley Hernandez MD 3 [place] [address] 04/30/2024 10:40 AM BANQUET CHEF Office Visit [facility] Multispecialty Care - [address], [address] [place] [address] Presley Hernandez MD 3 [place] [address] documented as of this encounter Visit Diagnoses Not on filedocumented in this encounter Care Teams Fur Matcher Relationship Specialty Start Date End Date Deedee Low PA [address] [place] [address] PCP - General PHYSICIAN SHEEP SORTER 07/22/20 documented as of this encounter
--- OUTSIDE RECORDS SUMMARY | 2024-02-24 17:00 | XMS_ITS | Encounter Summary ---
Author Organization [facility] Address [address] [place] [address]. [place], [place] [address] [place] [address] Care Team Providers Care Health Sciences Manager Name Role Phone JennifermaryDeedee Primary Care Provider [phone] Reason for Visit * Reason Comments Botox Botox #2 neuralgia * Injection (Routine) - Closed Specialty Diagnoses / Procedures Referred By Contact Referred To Contact NEUROMUSCULOSKELETAL MEDICIN E / NEUROLOGY Diagnoses Neuralgia Migraine without aura, not intractable, without status migrainosus botox/neuralgia Procedures BOTULINUM TOXIN A PER UNIT BOTOX Presley Hernandez MD [address] [place] [address] Phone: tel:[phone] fax:[phone] Presley Hernandez MD [address] [place] [address] Phone: tel:[phone] fax:[phone] Referral ID Status Reason Start Date Expiration Date Visits Re quested Visits Authorized [id number] Closed 10/04/2021 04/05/2022 99 99 Encounter Details Date Type Department Care Team (Latest Contact Info) Description 10/04/2021 10:50 AM CDT Office Visit [facility] Mult[facility]pec[facility]ty Care - [address], [address] [place] [phone] Presley Hernandez MD [address] [place] [address] Botox (Botox #2 neuralgia /) Social History Tobacco Use Types Packs/Day Years [...] Sign Reading Time Taken Comments Blood Pressure 110/70 10/04/2021 10:45 AM CDT Pulse 97 10/04/2021 10:45 AM CDT Temperature 36.7 ??C (98 ??F) 10/04/2021 10:45 AM CDT Respiratory Rate - - Oxygen Saturation 97% 10/04/2021 10:45 AM CDT Inhaled Oxygen Concentration - - Weight 93 kg (205 lb) 10/04/2021 10:45 AM CDT Height 162.6 cm (5' 4 ) 10/04/2021 10:45 AM CDT Body Mass Index 35.19 10/04/2021 10:45 AM CDT documented in this encounter Progress Notes * Presley Hernandez MD - 10/04/2021 10:50 AM CDT Botox treatment cycle number: 1 Lot type: buy and bill Wastage: 50 Botox Injection Procedure [...] A (BOTOX). Under EMG Guidance We injected 10 units to splenius capitis on the right, 10 units to splenius capitis on the left, 20units to trapezius on the right, 5 units to trapezius on the left, 5 units to right suboccipitalis A total of 50 units of botulinum toxin type A (BOTOX) were injected. The procedure was tolerated well without complication. will return to clinic in three months' time for repeat injections. Botox for trigeminal neuralgia, cycle 1 Waste: 95 Lot: buy and bill After obtaining informed consent, under aseptic precautions, we injected 2.5 units on the right medial zygomaticus, 2.5 units into right lateral zygomaticus. In addition, we also give Toradol injection 15 mg IM for the migraines. documented in this encounter Plan of Treatment Upcoming Encounters Date Type Department Care Team (Late st Contact Info) Description 04/15/2024 1:00 PM FARMWORKER FRUIT [facility] - [address], [address] [place] [phone] Presley Hernandez MD [address] [place] [address] 04/30/2024 10:40 AM FARMWORKER FRUIT [facility] [address] [facility], [address] [place] [phone] Presley Hernandez MD [address] [place] [address] Scheduled Orders Name Type Priority Associated Diagnoses Orde r Schedule NECK MUSCLE EXCLUDING MUSCLES OF THE LARYNX UNILATERAL Procedures Routine Cervical dystonia Trigeminal neuralgia of right side of face Ordered: 10/04/2021 NDL EMG GDN CONJUNCT CHEMODNRVTJ Procedures Routine Cervical dystonia Trigeminal neuralgia of right side of face Ordered: 10/04/2021 DEST,NERVE,FACIAL Procedures Routine Cervical dystonia Trigeminal neuralgia of right side of face Ordered: 10/04/2021 documented as of this encounter Visit Diagnoses Diagnosis Cervical dystonia- Primary Spasmodic torticollis Trigeminal neuralgia of right side of face documented in this encounter Administered Medications Inactive Administered Medications - up to 3 most recent administrations Medication Order MAR Action Action Date Dose Rate Site botulinum toxin type A (BOTOX) injection 200 Units 200 Units, Intramuscular, Once, 1 dose, On Sat10/04/21 at 1715Indications:Cervical dystonia,Trigeminal neuralgia of right side of face Given 10/04/2021 5:15 PM CDT 200 Units Other ketorolac (TORADOL) injection 15 mg 15 mg, Intramuscular, Once, 1 dose, On Sat10/04/21 at 1715Indications:Cervical dystonia,Trigeminal neuralgia of right side of face Given 10/04/2021 5:15 PM CDT 15 mg Other documented in this encounter Care Teams Health Sciences Manager Relationship Specialty Start Date End Date Deedee Low PA [address] [place] [address] PCP - General PHYSICIAN BRICK OR BLOCK MAKER 07/22/20 documented as of this encounter
--- OUTSIDE RECORDS SUMMARY | 2024-02-24 17:00 | XMS_ITS | Encounter Summary ---
Author Organization [facility] Address [address] [place] [address]. [place], [place] [id number] [place] [address] Care Team Providers Care Parking Regulation Enforcement Officer Name Role Phone Deedee Low Primary Care Provider Reason for Visit * Auth/Cert Specialty Diagnoses / Procedures Referred By Angelita silva Referred To Contact Diagnoses cervical radiculopathy Procedures NJX INTERLAMINAR CRV/THRC INJECTION EPIDURAL STEROID CERVICAL C5-6 Lidia Weston MD [facility] [address] [place] [address] Phone: tel: fax: Referral ID Status Reason Start Date Expiration Date Visits Re quested Visits Authorized [id number] 1 1 Encounter Details Date Type Department Care Team (Late st Contact Info) Description 01/18/2022 8:40 AM SLUNK SKINNER - 01/18/2022 9:00 AM SLUNK SKINNER Surgery [facility] [place], [place] [id number] [id number] Lidia Weston MD [facility] [address] [place] [phone] INJECTION EPIDURAL STEROID CERVICAL C5-6 Surgery Details Date/Time Status Location OR Service Patient Class Case Class Case Type Trauma Case? 01/18/2022 8:40 AM Posted [facility] Pain Proc Rm Pain Medicine Short Stay/Outpa tient Surgery No Panel 1 Procedure LRB Anes Op Region Wound Class Comments INJECTION EPIDURAL STEROID CERVICAL C5-6 N/A Local Spine Cervical Clean INJECTION EPIDURAL STEROID CERVICAL C5-6 NO BLOOD THINNERS RETURN PT SCHEDULED 12/07/2021 CELE VELÁSQUEZ Surgeon Surgeon Role Service Panel Lidia Weston [...] Coronavirus/COVID-19? No / Unsure 01/17/2022 9:02 AM SLUNK SKINNER documented as of this encounter Last Filed Vital Signs Vital Sign Reading Time Taken Comments Blood Pressure 141/94 01/18/2022 8:59 AM SLUNK SKINNER Pulse 92 01/18/2022 8:59 AM SLUNK SKINNER Temperature 36.4 ??C (97.5 ??F) 01/18/2022 8:00 AM CS T Respiratory Rate 22 01/18/2022 8:59 AM SLUNK SKINNER Oxygen Saturation 100% 01/18/2022 8:59 AM SLUNK SKINNER Inhaled Oxygen Concentration - - Weight 95.3 kg (210 lb) 01/18/2022 8:00 AM SLUNK SKINNER Height 162.6 cm (5' 4 ) 01/18/2022 8:00 AM SLUNK SKINNER Body Mass Index 36.05 01/18/2022 8:00 AM SLUNK SKINNER documented in this encounter Discharge Instructions * Discharge Instructions* Debbie Bai, SILVER - 01/18/2022 8:28 AM SLUNK SKINNER [place] Interventional Pain Management Discharge Instructions PLEASE CALL WITH % OF RELIEF FROM YOUR INJECTION IN 3 WEEKS FOR INSURANCE AUTHORIZATION APPROVAL PER [facility] Please call [phone] Ext. [phone] option 4. You may need to leave [...] DOCTOR AND HOW TO REACH US: Call [phone] ext. [phone] for scheduling, insurance questions or speak with [...] PLEASE GO TO THE EMERGENCY ROOM IMMEDIATELY! K SKINNER K SKINNER documented in this encounter Medications at Time [...] carBAMazepine 200 MG tabletIndications:M S (multiple sclerosis) ([facility] HHS/HCC),Migraine without aura, not intractable, [...] 23 promethazine 6.25 MG/5ML syrupIndications:MS (multiple sclerosis) ([facility] HHS/HCC),Migraine without aura, not intractable, without status migrainosus Take 10 mLs (12.5 mg total) by mouth once as needed for Nausea. 120 mL 5 2 07/12/19 23 propranolol 20 MG tabletIndications:M S (multiple sclerosis) ([facility] HHS/HCC),Migraine without aura, not intractable, [...] MG tablet atorvastatin 20 mg tablet Yes [facility] buPROPion (WELLBUTRIN) 100 MG tablet bupropion HCl 100 mg tablet TAKE 1 TABLET BY MOUTH TWICE DAILY Yes [facility] carBAMazepine 200 MG tablet Take 0.5 tablets (100 mg total) by mouth 3 (three) times daily. 08/08/21Yes Presley Hernandez MD cetirizine 10 MG tablet Take 10 mg by mouth daily. Yes Doc [facility] Continuous Blood Gluc Sensor (DEXCOM G6 SENSOR) [facility] 09/28/21 Yes [facility] Continuous Blood Gluc Transmit (DEXCOM G6 TRANSMITTER) [facility] 09/27/21 Yes [facility] diazePAM (VALIUM) 5 MG tablet Take 3 tabs po 1 hour prior to procedure 01/04/22 Yes Lidia Weston MD diazePAM 5 MG tablet Take 5 mg by mouth every 8 (eight) hours as needed for Anxiety. Yes Doc [facility] diphenhydrAMINE 25 MG capsule Take 25 [...] FARXIGA 10 MG Tab 09/16/21 Yes [facility] Glucagon (BAQSIMI ONE PACK) 3 MG/DOSE [...] Disposable Pump (OMNIPOD DASH PODS, GEN 4,) [facility] 09/28/21 Yes [facility] ketorolac (ACULAR LS) 0.4 % ophthalmic solution Apply 1 drop to eye 2 (two) times daily. Yes Doc [facility] lamoTRIgine 100 MG tablet Take 100 mg by mouth 2 (two) times daily. Yes Doc [facility] losartan (COZAAR) 50 MG tablet Take 50 mg by mouth daily. Yes Doc [facility] montelukast 10 MG tablet Take 10 mg by mouth nightly at bedtime. 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 K SKINNER documented in this encounter Plan of Treatment Upcoming Encounters Date Type Department Care Team (Late st Contact Info) Description 04/15/2024 1:00 PM SLUNK SKINNER [facility] [address], [address] [place] [phone] Presley Hernandez MD [address] [place] [address] 04/30/2024 10:40 AM SLUNK SKINNER [facility] [place] [address] [facility], [address] [place] [phone] Presley Hernandez MD [address] [place] [address] documented as of this encounter Procedures Procedure Name Priority Date/Time Associated Diagnosis Comments NJX INTERLAMINAR CRV/THRC 01/18/2022 8:41 AM SLUNK SKINNER cervical radiculopathy XR PAIN CLINIC C-ARM Today 01/18/2022 8:17 AM SLUNK SKINNER documented in this encounter Results * XR PAIN CLINIC C-ARM (01/18/2022 8:17 AM SLUNK SKINNER) Narrative Radiology, Technologist - 01/18/2022 8:17 AM SLUNK SKINNER This report does not contain a radiologist's [...] PF (DECADRON) injection As needed, Starting on Mariaelena 01/18/22 at 0848, Until Mariaelena 01/18/22 at 0852, Intra-Op Given 01/18/2022 8:48 AM SLUNK SKINNER 20 mg Operative Site HYDROcodone-acetaminophe n (NORCO) 5-325 MG tablet 1 dose, Starting on Mariaelena 01/18/22 at 0830, Until Mariaelena 01/18/22 at 0831, Created by cabinet override Given 01/18/2022 8:31 AM SLUNK SKINNER 2 tablets iopamidol (ISOVUE-M 300) 61 % injection As needed, Starting on Mariaelena 01/18/22 at 0848, Until Mariaelena 01/18/22 at 0852, Intra-Op Given 01/18/2022 8:48 AM SLUNK SKINNER 5 mLs Operative Site lidocaine (PF) (XYLOCAINE) 1 % injection As needed, Starting on Mariaelena 01/18/22 at 0846, Until Mariaelena 01/18/22 at 0852, Intra-Op Given 01/18/2022 8:46 AM SLUNK SKINNER 2 mLs Operative Site documented in this encounter Active and Recently Administered Medications Times are shown in SLUNK SKINNER. PRN Medication Order 01/16/2022 01/17/2022 01/18/2022 chlorhexidine [...] override 0831 (Given - Provid er: Tyra Sterling, SILVER) documented in this encounter Care Teams Parking Regulation Enforcement Officer Relationship Specialty Start Date End Date Deedee Low PA [address] [place] [address] PCP - General PHYSICIAN NURSE RECEPTIONIST 07/22/20 documented as of this encounter
--- OUTSIDE RECORDS SUMMARY | 2024-02-24 17:00 | XMS_ITS | Encounter Summary ---
Author Organization [facility] Address [address] [place] [address]. [place] [address] [place] [address] Care Team Providers Care Corrections Counselor Name Role Phone Deedee Low Primary Care Provider [phone] Reason for Visit * Reason Onset Date Comments Medication 11/27/2021 Headache 11/27/2021 Encounter Details Date Type Department Care Team (Late st Contact Info) Description 11/27/2021 Telephone [facility] Multispecialty Care - [facility] [address] [facility], [address] [place] [address] Presley Hernandez MD [address] [place], [place] [id number] Medication; Headache Social History Tobacco Use Types Packs/Day [...] Progress Notes * Michelle Begum RN - 11/28/2021 4:19 PM CDT Patient stated headaches are not better. Please order Qulipta. * Michelle eBgum RN - 11/28/2021 2:23 PM CDT Please advise. * Haydee De Los Santos - 11/28/2021 12:05 PM CDT Pt was seen in ER for migraine yesterday She is calling to follow up with Dr Maldonado per the ER instruction * Baylee Keen MA - 11/27/2021 1:53 PM CDT Spoke with pt I let her know what Dr. Maldonado stated Pt verbalized understanding and will go to the ER and keep us updated. * Sandra Santos - 11/27/2021 11:30 AM CDT Patient had a migraine early this morning and took medication Nurtek and then Maxalt. Her heart rate is high in the 120's and she feels shaky. Patient still having Migraine. Patient took Nurtek at 3 am and then took Maxalt at 6:30 am. Patient started feeling heart rate about 4:30 am. Patient had Migraine yesterday as well and took only Nurtek yesterday with no issues. Call patient to discuss [phone] documented in this encounter Plan of Treatment Upcoming Encounters Date Type Department Care Team (Late st Contact Info) Description 04/15/2024 1:00 PM FUR VAULT ATTENDANT [facility] [address] [facility], [address] [place] [phone] Presley Hernandez MD [address] [place] [address] 04/30/2024 10:40 AM FUR VAULT ATTENDANT [facility] [address] [facility], [address] [place] [phone] Presley Hernandez MD [address] [place] [address] documented as of this encounter Visit Diagnoses Not on filedocumented in this encounter Care Teams Corrections Counselor Relationship Specialty Start Date End Date Deedee Low PA [address] [place] [address] PCP - General PHYSICIAN UPHOLSTERY TECH 07/22/20 documented as of this encounter
--- OUTSIDE RECORDS SUMMARY | 2024-02-24 17:00 | XMS_ITS | Encounter Summary ---
Author Organization [facility] Address [address] [place] [address]. [place], [place] [phone] [place] [address] Care Team Providers Care Conservation Biology Professor Name Role Phone Jennifermary Deedee DOWELL Primary Care Provider [phone] Encounter Details Date Type Department Care Team (Latest Contact Info) Description 09/27/2021 Travel Social History Tobacco Use Types Packs/Day [...] suspected to have Coronavirus/COVID-19? No / Unsure 09/27/2021 10:41 AM CDT documented as of this encounter Plan of Treatment Upcoming Encounters Date Type Department Care Team (Late st Contact Info) Description 04/15/2024 1:00 PM NURSE TRANSITION Office Visit [facility] Mult[facility] - [facility] [address] [facility], [address] [place] [address] Presley Hernandez MD [address] [place] [address] 04/30/2024 10:40 AM NURSE TRANSITION Office Visit [facility] Mult[facility] - [facility] [address] [facility], [address] [place] [address] Presley Hernandez MD [address] [place] [address] documented as of this encounter Visit Diagnoses Not on filedocumented in this encounter Care Teams Conservation Biology Professor Relationship Specialty Start Date End Date Deedee Low PA [address] [place] [address] PCP - General PHYSICIAN MICROBIOLOGY TECHNOLOGIST 07/22/20 documented as of this encounter
--- OUTSIDE RECORDS SUMMARY | 2024-02-24 17:00 | XMS_ITS | Encounter Summary ---
Author Organization [facility] Address [address] [place] [address]. [place], [place] [address] [place] [address] Care Team Providers Care Administrative Representative Name Role Phone Deedee Low Primary Care Provider [phone] Reason for Referral * Imaging (Routine) - Closed Specialty Diagnoses / Procedures Referred By Angelita silva Referred To Contact RADIOLOGY Diagnoses Cervical radiculopathy Procedures MRI CERV SPINE WWO CON Presley Hernandez MD 3 [place] [address] Phone: tel: fax: Referral ID Status Reason Start Date Expiration Date Visits Re quested Visits Authorized [id number] Closed 10/20/2021 04/18/2022 1 1 * Imaging (Routine) - Closed Specialty Diagnoses / Procedures Referred By Angelita silva Referred To Contact RADIOLOGY Diagnoses Lumbosacral radiculopathy Procedures MRI LUMB SPINE WO CON Presley Hernandez MD 3 [place] [address] Phone: tel: fax: Referral ID Status Reason Start Date Expiration Date Visits Re quested Visits Authorized [id number] Closed 10/20/2021 04/18/2022 1 1 Reason for Visit * Imaging (Routine) - Closed Specialty Diagnoses / Procedures Referred By Angelita silva Referred To Contact RADIOLOGY Diagnoses Lumbosacral radiculopathy Procedures MRI LUMB SPINE WO CON Presley Hernandez MD 3 [place] [address] Phone: tel: fax: Referral ID Status Reason Start Date Expiration Date Visits Re quested Visits Authorized [id number] Closed 10/20/2021 04/18/2022 1 1 Encounter Details Date Type Department Care Team (Latest Contact Info) Description 10/25/2021 6:59 AM CDT - 10/25/2021 11:59 PM CDT Hospital Encounter [facility] [place], [place] [id number] Presley Hernandez MD [address] [place] [address] Discharge Disposition: Home or Self Care (Routine [...] Continuous Blood Gluc Sensor (DEXCOM G6 SENSOR) [facility] 09/28/2021 Continuous Blood Gluc Transmit (DEXCOM G6 TRANSMITTER) [facility] 09/27/2021 diazePAM 5 MG tablet Take 1 [...] topiramate (TOPAMAX) 200 MG tabletIndications:MS (multiple sclerosis) ([facility] HHS/HCC),Migraine without aura, not intractable, without status [...] 2 carBAMazepine 200 MG tabletIndications:MS (multiple sclerosis) (CMS/HCC HHS/HCC),Migraine [...] 3 promethazine 6.25 MG/5ML syrupIndications:MS (multiple sclerosis) ([facility]),Migraine without aura, not intractable, without status migrainosus Take 10 mLs (12.5 mg total) by mouth once as needed for Nausea. 120 mL 5 08/08/2021 3 propranolol 20 MG tabletIndications:MS (multiple sclerosis) ([facility]),Migraine without aura, not intractable, without status migrainosus Take 1 tablet (20 mg total) by mouth 2 (two) times daily. 60 tablet 6 08/08/2021 3 rimegepant (NURTEC) 75 MG disintegrating tabletIndications:Mi graine without aura, not intractable, without status migrainosus Take 1 tablet (75 mg total) by mouth daily as needed for Migraine. 16 tablet 5 08/08/2021 4 rizatriptan (MAXALT) 10 MG tabletIndications:MS (multiple sclerosis) ([facility]),Migraine without aura, not intractable, without status migrainosus Take 1 tablet (10 mg total) by mouth as needed for Migraine. May repeat in 2 hours if needed 16 tablet 5 08/08/2021 4 ziprasidone 20 MG capsule Take 60 mg by mouth daily. 2 documented as of this encounter Plan of Treatment Upcoming Encounters Date Type Department Care Team (Late st Contact Info) Description 04/15/2024 1:00 PM POLE SHAVER [facility] [address], [address] [address] Presley Hernandez MD [address] [place] [address] 04/30/2024 10:40 AM POLE SHAVER Office Visit [facility] - [address], [address] [place] [address] Presley Hernandez MD [address] [place] [address] documented as of this encounter Procedures Procedure Name Priority Date/Time Associated Diagnosis Comments MRI CERV SPINE WWO CON Routine 10/25/2021 8:26 AM CDT Cervical radiculopathy MRI LUMB SPINE WO CON Routine 10/25/2021 7:35 AM CDT Lumbosacral radiculopathy documented in this encounter Results * MRI CERV SPINE WWO CON (10/25/2021 8:26 AM CDT) Anatomical Region Laterality Modality Spine Magnetic Resonan ce 10/25/2021 11:4 6 AM CDT Impressions 10/25/2021 3:01 PM CDT IMPRESSION: Mild multilevel cervical spondylosis, as described above. Ordered By: PRESLEY HERNANDEZ Interpreted By: Ciaran Franco MD, 10/25/2021 11:46 AM Narrative 10/25/2021 3:01 PM CDT Examination: MRI CERV SPINE WWO CON, 10/25/2021 11:46 AM. Technique: Axial and sagittal T1, sagittal T2, sagittal T2 STIR, axial and sagittal T2 GRE, sagittal and sagittal oblique T2 3-D space, as well as axial and sagittal T1-weighted fat-saturated postcontrast magnetic resonance images of the cervical spine were obtained without intravenous contrast. Clinical history: Headaches/migraines with radiation of pain to body Comparison: MRI brain 09/04/2021 Findings: There is straightening of the normal cervical lordosis that is likely positional. The cervical vertebral bodies and facets are well aligned. The cervical vertebral body heights are preserved. There is incomplete segmentation of the C3 and C4 vertebral bodies. There is no abnormal prevertebral or paraspinal soft tissue swelling. The cervical spinal cord [...] thecal sac. Mild spinal canal stenosis. Uncovertebral joint hypertrophy. Mild to moderate bilateral neural foraminal stenosis. C5-6: No significant spinal canal stenosis. Uncovertebral joint hypertrophy. Mild to moderate left neural foraminal stenosis. Mild right neural foraminal stenosis. C6-7: No significant spinal canal or neural foraminal stenosis. C7-T1: No significant spinal canal or neural foraminal stenosis. Procedure Note Ciaran Franco MD - 10/25/2021 Examination: MRI CERV SPINE WWO CON, 10/25/2021 11:46 AM. Technique: Axial and sagittal T1, sagittal T2, sagittal T2 STIR, axial andsagittal T2 GRE, sagittal and sagittal oblique T2 3-D space, as well asaxial and sagittal T1-weighted fat-saturated postcontrast magneticresonance images of the cervical spine were obtained without intravenouscontrast. Clinical history: Headaches/migraines with radiation of pain to body Comparison: MRI brain 09/04/2021 Findings: There is straightening of the normal cervical lordosis that is likelypositional. The cervical vertebral bodies and facets are well aligned. Thecervical vertebral body heights are preserved. There is incompletesegmentation of the C3 and C4 vertebral bodies. There is no abnormalprevertebral or paraspinal soft tissue swelling. The cervical spinal cordis a normal signal throughout its course. There is no abnormal enhancementof the cervical spinal cord. C2-3: No significant spinal canal or neural foraminal stenosis. C3-4: No significant spinal canal stenosis. Uncovertebral jointhypertrophy. Moderate left neural foraminal stenosis. No right neuralforaminal stenosis. C4-5: Disc bulge impressing the ventral thecal sac. Mild spinal canalstenosis. Uncovertebral joint hypertrophy. Mild to moderate bilateralneural foraminal stenosis. C5-6: No significant spinal canal stenosis. Uncovertebral jointhypertrophy. Mild to moderate left neural foraminal stenosis. Mild rightneural foraminal stenosis. C6-7: No significant spinal canal or neural foraminal stenosis. C7-T1: No significant spinal canal or neural foraminal stenosis. IMPRESSION: Mild multilevel cervical spondylosis, as described above. Ordered By: PRESLEY HERNANDEZ Interpreted By: Ciaran Franco MD, 10/25/2021 11:46 AM us Presley Hernandez MD MRI Final Res ult * MRI LUMB SPINE WO CON (10/25/2021 7:35 AM CDT) Anatomical Region Laterality Modality Spine Magnetic Resonan ce 10/25/2021 11:1 6 AM CDT Impressions 10/25/2021 11:46 AM CDT =====IMPRESSION:===== Mild multilevel lumbar spondylosis, as described above. Ordered By: PRESLEY HERNANDEZ Interpreted By: Ciaran Franco MD, 10/25/2021 11:16 AM Narrative 10/25/2021 11:46 AM CDT EXAMINATION: MRI lumbar spine without contrast EXAM DATE/TIME: 10/25/2021 7:19 AM REASON FOR EXAM: ??lumbosacral radiculopathy, headaches/migraines with radiation to the body, patient describes pain from head to toes. COMPARISON: None available TECHNIQUE: Mutiplanar, multisequence MRI of the lumbar spine was obtained without the use of an IV contrast agent. FINDINGS: There are 5 nonrib-bearing lumbar-type vertebral [...] foraminal stenosis. No right neural foraminal stenosis. Procedure Note Ciaran Franco MD - 10/25/2021 EXAMINATION: MRI lumbar spine without contrast EXAM DATE/TIME: 10/25/2021 7:19 AM REASON FOR EXAM: lumbosacral radiculopathy, headaches/migraines withradiation to the body, patient describes pain from head to toes. COMPARISON: None available TECHNIQUE: Mutiplanar, multisequence MRI of the lumbar spine was obtainedwithout the use of an IV contrast agent. FINDINGS: There are 5 nonrib-bearing lumbar-type vertebral bodies. Thelumbar vertebral bodies and facets are well aligned. The lumbar vertebralbody heights are preserved. There is intervertebral disc height loss atL4-5 and to a lesser extent at L5-S1 with endplate degenerative changes atthese levels. Hemangioma of L1, normal. The conus medullaris terminates [id number], normal. There is a normal distribution of the cauda equina withinthe thecal sac. There renal cysts. L1-2: There is no significant spinal canal or neural foraminal stenosis. L2-3: There is no significant spinal canal or neural foraminal stenosis. L3-4: There is no significant spinal canal or neural foraminal stenosis. L4-5: There is no significant spinal canal stenosis. Mild to moderatefacet hypertrophy. Mild bilateral neural foraminal stenosis. L5-S1: No significant spinal canal stenosis. Mild facet hypertrophy. Mildleft neural foraminal stenosis. No right neural foraminal stenosis. =====IMPRESSION:===== Mild multilevel lumbar spondylosis, as described above. Ordered By: PRESLEY HERNANDEZ Interpreted By: Ciaran Franco MD, 10/25/2021 11:16 AM Presley Hernandez MD MRI Final Res ult documented in this encounter Visit Diagnoses Diagnosis Lumbosacral radiculopathy Thoracic or lumbosacral neuritis or radiculitis, unspecified Cervical radiculopathy Brachial neuritis or radiculitis nos documented in this encounter Administered Medications Inactive Administered Medications - up to 3 most recent administrations Medication Order MAR Action Action Date Dose Rate Site gadoterate meglumine (DOTAREM) 10 MMOL/20ML injection 20 mL 20 mL, Intravenous, IMG once as needed, Contrast, 1 dose, Starting on Sat10/25/21 at 0908, Until Sat10/25/21 at 0908 Given 10/25/2021 9:08 AM CDT 20 mLs Right Arm documented in this encounter Care Teams Administrative Representative Relationship Specialty Start Date End Date Deedee Low PA [address] [place] [address] PCP - General PHYSICIAN VACUUM FRAME OPERATOR 07/22/20 documented as of this encounter
--- OUTSIDE RECORDS SUMMARY | 2024-02-24 17:00 | XMS_ITS | Encounter Summary ---
Author Organization [facility] Address [address] [place] [address]. [place] [address] [place] [address] Care Team Providers Care Automatic Head Sawyer Name Role Phone Jennifermary Deedee DELMER Primary Care Provider [phone] Reason for Visit * Reason Onset Date Comments Medication Question 09/13/2021 Encounter Details Date Type Department Care Team (Late st Contact Info) Description 09/13/2021 Telephone [facility] Multispecialty Care - [facility] 3 [facility], [address] [place] [address] Presley Hernandez MD 3 [place], [place] [id number] Medication Question Social History Tobacco Use Types Packs/Day [...] Progress Notes * Presley Hernandez MD - 09/14/2021 1:15 PM CDTAddended by: PRESLEY HERNANDEZ on: 09/14/2021 01:15 PM Modules accepted: Orders * Miranda Wendi Espino - 09/13/2021 1:23 PM CDT Alannah called and asked to speak with someone about what medication she should take. She was in [facility] over the weekend with a lumbar puncture and is experiencing a different headache experience. Please follow up to advise. documented in this encounter Plan of Treatment Upcoming Encounters Date Type Department Care Team (Late st Contact Info) Description 04/15/2024 1:00 PM CAN CRIMPER [facility] [address], [facility] [address] [place] [phone] Presley Hernandez MD [address] [place] [address] 04/30/2024 10:40 AM CAN CRIMPER Office Visit [facility] Care - [address], [address] [place] [phone] Presley Hernandez MD [address] [place] [address] documented as of this encounter Visit Diagnoses Diagnosis Migraine without aura, not intractable, without status migrainosus- Primary documented in this encounter Care Teams Automatic Head Sawyer Relationship Specialty Start Date End Date Deedee Low PA [address] [place] [address] PCP - General PHYSICIAN MARBLE CLEANER 07/22/20 documented as of this encounter
--- OUTSIDE RECORDS SUMMARY | 2024-02-24 17:00 | XMS_ITS | Encounter Summary ---
Author Organization [facility] Address [address] [place] [address]. [id number] [place] [address] Care Team Providers Care Pediatric Surgeon Name Role Phone Deedee Low Primary Care Provider [phone] Reason for Referral * Consultation/Treatment (Routine) - Closed Specialty Diagnoses / Procedures Referred By Contact Referred To Contact PAIN MANAGEMENT / [facility] Pain Management Diagnoses Lumbosacral radiculopathy Procedures OFFICE/OUTPT VISIT,NEW,LEVL III OFFICE/OUTPT VISIT,NEW,LEVL IV OFFICE/OUTPT VISIT,NEW,LEVL V OFFICE/OUTPT VISIT,EST,LEVL III OFFICE/OUTPT VISIT,EST,LEVL IV OFFICE/OUTPT VISIT,EST,LEVL V Presley Hernandez MD 3 [place] [address] Phone: tel:[phone] fax:[phone] [facility] [place] [address] Phone: tel: [phone] Referral ID Status Reason Start Date Expiration Date V isits Requested Visits Authorized [id number] Closed Specialty Services 10/25/2021 11/25/2022 10 10 Encounter Details Date Type Department Care Team (Late st Contact Info) Description 10/25/2021 Orders Only [facility] - [address], [address] [place] [phone] Presley Hernandez MD 3 [place] [address] Social History Tobacco Use Types Packs/Day Years [...] st Contact Info) Description 04/15/2024 1:00 PM BUDGET COUNSELOR [facility] - [address], [address] [place] [phone] Presley Hernandez MD [address] [place] [address] 04/30/2024 10:40 AM BUDGET COUNSELOR Office Visit [facility] - [address], [address] [place] [phone] Presley Hernandez MD [address] [place] [address] [place] [address] Scheduled Referrals Name Type Priority Associated Diagnoses Orde r Schedule Ambulatory Referral to Pain Management Referral Routine Lumbosacral radiculopathy Ordered: 10/25/2021 documented as of this encounter Visit Diagnoses Diagnosis Lumbosacral radiculopathy- Primary Thoracic or lumbosacral neuritis or radiculitis, unspecified documented in this encounter Care Teams Pediatric Surgeon Relationship Specialty Start Date End Date Deedee Low PA [address] [place] [address] PCP - General PHYSICIAN RECEIVER SETTER 07/22/20 documented as of this encounter
--- OUTSIDE RECORDS SUMMARY | 2024-02-24 17:00 | XMS_ITS | Encounter Summary ---
Author Organization [facility] Address [address] [place] [address]. [place], [place] [phone] [place] [address] Care Team Providers Care Cargo Inspector Name Role Phone Deedee Low Primary Care Provider [phone] Encounter Details Date Type Department Care Team (Latest Contact Info) Description 01/09/2022 Scan HEALTH INFO SRVCS Scanned, Doc Med [...] Coronavirus/COVID-19? No / Unsure 01/17/2022 9:02 AM INSURANCE HEALTHCARE CONSULTANT documented as of this encounter Plan of Treatment Upcoming Encounters Date Type Department Care Team (Late st Contact Info) Description 04/15/2024 1:00 PM INSURANCE HEALTHCARE CONSULTANT Office Visit [facility] Medical Group Multispecialty Care - [facility] 3 [facility], [address] [place] [address] Presley Hernandez MD 3 [place] [address] 04/30/2024 10:40 AM INSURANCE HEALTHCARE CONSULTANT Office Visit [facility] Medical Group Multispecialty Care - [facility] 3 [facility], [address] [place] [address] Presley Hernandez MD 3 [place] [address] documented as of this encounter Visit Diagnoses Not on filedocumented in this encounter Care Teams Cargo Inspector Relationship Specialty Start Date End Date Deedee Low PA [address] [place] [address] PCP - General PHYSICIAN AUDIO VISUAL AIDE 07/22/20 documented as of this encounter
--- OUTSIDE RECORDS SUMMARY | 2024-02-24 17:00 | XMS_ITS | Encounter Summary ---
Author Organization [facility] Address [address] [place] [address]. [place], [place] [id number] [place] [id number] Care Team Providers Care Cable Television Technician Name Role Phone Deedee Low Primary Care Provider [phone] Reason for Referral * Imaging (Emergency) - Closed Specialty Diagnoses / Procedures Referred By Angelita silva Referred To Contact RADIOLOGY Procedures CT HEAD WO CON Chris Ch PA [address] [place] [address] Phone: tel: fax: Referral ID Status Reason Start Date Expiration Date Visits Re quested Visits Authorized [id number] Closed 11/27/2021 11/27/2022 1 1 Reason for Visit * Reason Comments Headache Recurrent Or Know Dx Migraine Tachycardia Encounter Details Date Type Department Care Team (Late st Contact Info) Description 11/27/2021 4:36 PM CDT - 11/28/2021 12:39 AM CDT Emergency [facility] [place] [address] Court Gaines PA [address] [place], [place] [address] Headache Recurrent Or Know Dx Migraine; Tachycardia Discharge Disposition: Home or Self Care (Routine [...] Sign Reading Time Taken Comments Blood Pressure 148/114 11/27/2021 11:42 PM CDT Pulse 100 11/27/2021 11:42 PM CDT Temperature 36.3 ??C (97.3 ??F) 11/27/2021 3:15 PM CD T Respiratory Rate 18 11/27/2021 11:4 2 PM CDT Oxygen Saturation 99% 11/27/2021 11: 42 PM CDT Inhaled Oxygen Concentration - - Weight 95.7 kg (210 lb 15.7 oz) 022 3:15 PM CDT Height 162.6 cm (5' 4 ) 11/27/2021 3:15 PM CDT Body Mass Index 36.21 11/27/2021 3:15 PM CDT documented in this encounter Discharge Instructions * Discharge Instructions* DELMER Padilla - 11/28/2021 12:32 AM CDT Follow up with Dr. Maldonado. Take all daily medication as directed. Try the toradol for pain relief at home, do not take in combination with other NSAIDs Thank you for giving us the opportunity to care for you today. If at any point you are becoming more ill, your condition worsens or you have concerns, please call your doctor or return for re-evaluation. You are always welcome back. Our practice is committed to providing you the exceptional care. We want to hear from you! Please fill out the survey you get from us. Your feedback is anonymous & helps us improve the patient experience for you and others in the community we serve. - Court Gaines PA-C - Emergency Medicine Provider documented in this encounter Medications at Time [...] 2 (two) times daily. 07/19/19 23 ketorolac (TORADOL) 10 MG tablet Take 1 tablet (10 mg total) by mouth 4 (four) times daily as needed for Pain. 20 tablet 2 12/04/19 22 ketorolac 0.4 % ophthalmic solution 1 drop [...] 23 promethazine 6.25 MG/5ML syrupIndications:MS (multiple sclerosis) (CMS/HCC HHS/HCC),Migraine without aura, not intractable, without status migrainosus Take 10 mLs (12.5 mg total) by mouth once as needed for Nausea. 120 mL 5 2 07/12/19 23 propranolol 20 MG tabletIndications:M S (multiple sclerosis) (CMS/HCC [...] needed 16 tablet 5 2 07/24/19 24 ziprasidone 20 MG capsule Take 60 mg by mouth daily. 12/08/19 22 documented as of this encounter ED Notes * Wendy Scott RN - 11/28/2021 12:39 AM CDT Discharge instructions reviewed with patient. No further questions. IV removed. No s/s distress. Ambulatory out of ED. * DELMER Padilla - 11/27/2021 10:45 PM CDT ED NOTE Chief Complaint Chief Complaint Patient presents with ??? Headache Recurrent Or Know Dx Migraine ??? Tachycardia History of Present Illness Alannah Ruano is a 41-year-old female presents ambulatory with stable gait for migraine headache and rapid heart rate. Has migraine headaches and is on several abortive and preventative medications, noting that this migraine has been ongoing for 3 days. Is under the care of a neurologist, Dr. Maldonado. This is her typical migraine but it has been ongoing longer than usual and wasn't improving with migraine headaches. Nausea was noted but improved with Zofran at home. Denies chest pain, shortness of breath, upper back pain, visual changes, or unexplained sweating. Medical History ALLERGIES: Allergies Allergen Reactions ??? Mushroom Extract Complex Anaphylaxis ??? Pecans Anaphylaxis MEDICATIONS: Prior to Admission medications Medication Sig Start Date End Date Taking? Authorizing Provider ketorolac (TORADOL) 10 MG tablet Take 1 tablet (10 mg total) by mouth 4 (four) times daily as needed for Pain. 11/28/21 12/03/21 Yes DELMER Padilla ADVAIR DISKUS 250-50 MCG/ACT inhaler 08/28/21 [facility] albuterol sulfate HFA 108 (90 Base) MCG/ACT inhaler Inhale 2 puffs into the lungs every 6 (six) hours as needed for Wheezing. [facility] asenapine (SAPHRIS) 5 MG SL tablet 10/11/21 [facility] atogepant (QULIPTA) tablet Take 1 tablet (60 mg total) by mouth daily. 11/28/21 Presley Hernandez MD atorvastatin (LIPITOR) 20 MG tablet atorvastatin 20 mg tablet [facility] buPROPion (WELLBUTRIN) 100 MG tablet bupropion HCl 100 mg tablet TAKE 1 TABLET BY MOUTH TWICE DAILY [facility] buPROPion SR 100 MG 12 hr tablet Take 100 mg by mouth 2 (two) times daily. [facility] carBAMazepine 200 MG tablet Take 0.5 tablets (100 mg total) by mouth 3 (three) times daily. 08/08/21Presley Hernandez MD cetirizine 10 MG tablet Take 10 mg by mouth daily. [facility] Continuous Blood Gluc Sensor (DEXCOM G6 SENSOR) [facility] 09/28/21 [facility] Continuous Blood Gluc Transmit (DEXCOM G6 TRANSMITTER) [facility] 09/27/21 [facility] diazePAM 5 MG tablet Take 5 mg by mouth every 8 (eight) hours as needed for Anxiety. [facility] diphenhydrAMINE 25 MG capsule Take 25 mg by mouth every 6 (six) hours as needed for Itching. [facility] doxycycline hyclate 100 MG tablet Take 1 tablet by mouth daily. on an empty stomach [facility] EPINEPHrine (EPIPEN) 0.3 MG/0.3ML injection Auvi-Q 0.3 mg/0.3 mL injection, auto-injector ADMINISTER 0.3 MG IN THE MUSCLE 1 TIME [facility] FARXIGA 10 MG Tab 09/16/21 [facility] Glucagon (BAQSIMI ONE PACK) 3 [...] Disposable Pump (OMNIPOD DASH PODS, GEN 4,) [facility] 09/28/21 [facility] ketorolac (ACULAR LS) 0.4 % ophthalmic solution Apply 1 drop to eye 2 (two) times daily. [facility] ketorolac 0.4 % ophthalmic solution 1 drop 4 (four) times daily. [facility] lamoTRIgine (LAMICTAL) 100 MG tablet Take 100 mg by mouth daily. 05/29/21 [facility] lamoTRIgine 100 MG tablet Take 100 mg by mouth 2 (two) times daily. [facility] lisinopril 20 MG tablet Take 20 mg by mouth daily. 06/16/21 [facility] montelukast 10 MG tablet Take 10 mg by mouth nightly at bedtime. [facility] ondansetron (ZOFRAN ODT) 4 MG disintegrating tablet Take 1 tablet (4 mg total) by mouth every 8 (eight) hours as needed for Nausea. 10/05/21 Presley Hernandez MD ondansetron 8 MG tablet Take by mouth every 8 (eight) hours as needed for Nausea. [facility] pantoprazole EC (PROTONIX) 40 MG tablet Take 40 mg by mouth 2 (two) times daily. [facility] pantoprazole EC 40 MG tablet Take 40 mg by mouth every 12 (twelve) hours. [facility] phentermine (ADIPEX-P) 37.5 MG tablet 09/16/21 [facility] promethazine 6.25 MG/5ML syrup Take 10 mLs (12.5 mg total) by mouth once as needed for Nausea. 08/08/21 Presley Hernandez MD propranolol 20 MG tablet Take 1 tablet (20 mg total) by mouth 2 (two) times daily. 08/08/21 Presley Hernandez MD rimegepant (NURTEC) 75 MG disintegrating tablet Take 1 tablet (75 mg total) by mouth daily as needed for Migraine. 08/08/21 Presley Hernandez MD rizatriptan (MAXALT) 10 MG tablet Take 1 tablet (10 mg total) by mouth as needed for Migraine. May repeat in 2 hours if needed 08/08/21 Presley Hernandez MD topiramate (TOPAMAX) 200 MG tablet Take 1 tablet (200 mg total) by mouth 2 (two) times daily. 08/08/21 Presley Hernandez MD triamcinolone (KENALOG) 0.1 % ointment triamcinolone acetonide 0.1 % topical ointment [facility] ziprasidone 20 MG capsule Take 60 mg by mouth daily. [facility] PAST MEDICAL HISTORY: Past Medical History: Diagnosis Date ??? Anxiety disorder, unspecified ??? Asthma ??? Depression ??? Diabetes mellitus (CMS/HCC) ??? GERD (gastroesophageal reflux disease) ??? Hypertension ??? Migraines PAST SURGICAL HISTORY: Past Surgical History: Procedure Laterality Date ??? ADENOIDECTOMY ??? GASTRIC SLEEVE PROCEDURE--P 2020 ??? REVISE ULNAR NERVE AT ELBOW Left ??? SINUS SURGERY PROC UNLISTED ??? TONSILLECTOMY FAMILY HISTORY: No family history on file. SOCIAL HISTORY: Social History Tobacco Use ??? Smoking status: Former Smoker Types: Cigarettes ??? Smokeless tobacco: Never Used Vaping Use ??? Vaping Use: Never used Substance Use Topics ??? Alcohol use: Yes Comment: occasionally ??? Drug use: Yes Comment: marijuana cream on elbow Review of Systems Review of Systems Constitutional: Negative for diaphoresis and fever. Eyes: Negative for visual disturbance. Respiratory: Negative for shortness of breath. Cardiovascular: Positive for palpitations. Negative for chest pain. Musculoskeletal: Negative for neck stiffness. Neurological: Positive for headaches. Negative for syncope, facial asymmetry, speech difficulty andweakness. Physical Exam Filed Vitals: 11/27/21 1515 11/27/21 1640 11/27/21 2252 11/27/21 2342 BP: (!) 165/132 (!) 174/104 (!) 200/108 (!) 148/114 Pulse: 141 134 130 100 Resp: 18 Temp: 97.3 ??F (36.3 ??C) TempSrc: Temporal SpO2: 99% 98% 99% Weight: 95.7 kg (210 lb 15.7 oz) Height: 5' 4 (1.626 m) Physical Exam Vitals and nursing note reviewed. Constitutional: General: She is not in acute distress. Appearance: Normal appearance. She is not ill-appearing. HENT: Head: Normocephalic and atraumatic. Nose: Nose normal. Mouth/Throat: Mouth: Mucous membranes are moist. Eyes: Extraocular Movements: Extraocular movements intact. Conjunctiva/sclera: Conjunctivae normal. Pupils: Pupils are equal, round, and reactive to light. Cardiovascular: Rate and Rhythm: Normal rate and regular rhythm. Pulses: Normal pulses. Heart sounds: Normal heart sounds. No murmur heard. Pulmonary: Effort: Pulmonary effort is normal. No respiratory distress. Breath sounds: Normal breath sounds. Musculoskeletal: General: Normal range of motion. Cervical back: Normal range of motion and neck supple. No rigidity. Skin: General: Skin is warm and dry. Neurological: General: No focal deficit present. Mental Status: She is alert and oriented to person, place, and time. Mental status is at baseline. Sensory: No sensory deficit. Motor: No weakness. Psychiatric: Mood and Affect: Mood normal. Behavior: Behavior normal. 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: : 1980 Requested By: CHRIS CH Order Number: [id number] Reading MD: Josep Cheatham Measurements Intervals [place] Rate: 117 P: 16 NH: 155 QRS: -40 QRSD: 77 T: 16 QT: 317 QTc: 443 Interpretive Statements SINUS TACHYCARDIA LEFT AXIS DEVIATION [QRS AXIS < -30] PATTERN CONSISTENT WITH PULMONARY DISEASE No previous ECG available for comparison LABORATORY STUDIES: Results for orders placed or performed during the hospital encounter of 11/27/21 CBC W/DIFF AUTOMATED Result Value Ref Range WBC 9.3 4.5 - 11.0 x10'3/uL RBC 4.94 4.20 - 5.40 x10'6/uL HGB 15.1 12.0 - 16.0 G/DL HCT 44.1 38.0 - 48.0 % MCV 89.3 81.0 - 99.0 FL MCH 30.6 27.0 - 31.0 PG MCHC 34.2 32.0 - 36.0 G/DL RDW 12.9 11.5 - 14.5 % PLT 258 130 - 400 x10'3/uL MPV 9.1 (L) 9.3 - 12.2 FL DIFFERENTIAL TYPE AUTOMATED DIFFERENTIAL NEUTROPHILS 65.8 % LYMPHOCYTES 25.3 % MONOCYTES 7.1 % EOSINOPHILS 0.9 % BASOPHILS 0.6 % IMMATURE GRANS 0.3 % ABS. NEUTROPHILS TOTAL 6.08 1.80 - 7.70 x10'3/uL ABS. LYMPHOCYTES 2.34 1.00 - 4.80 x10'3/uL ABS. MONOCYTES 0.66 0.24 - 0.86 x10'3/uL ABS. EOSINOPHILS 0.08 0.04 - 0.36 x10'3/uL ABS. BASOPHILS 0.06 0.01 - 0.08 x10'3/uL ABS. IMMATURE GRANULOCYTES 0.03 0.00 - 0.49 x10'3/uL COMPREHENSIVE METABOLIC PANEL Result Value Ref Range GLUCOSE 128 (H) 70 - 99 MG/DL BUN 12 7 - 18 MG/DL CREATININE S/P/B 0.59 0.55 - 1.02 MG/DL SODIUM 138 136 - 145 MMOL/L POTASSIUM 3.9 3.5 - 5.1 MMOL/L CHLORIDE S/P/B 106 100 - 108 MMOL/L CO2 23.5 21 - 32 MMOL/L CALCIUM 9.3 8.5 - 10.1 MG/DL BILIRUBIN TOTAL S/P/B 0.3 0.2 - 1.2 MG/DL TOTAL PROTEIN S/P/B 7.7 6.4 - 8.2 G/DL ALBUMIN S/P/B 4.0 3.4 - 5.0 G/DL AST 17 15 - 37 U/L ALT 41 14 - 55 U/L ALKALINE PHOSPHATASE S/P/B 81 50 - 136 U/L ANION GAP 8.5 5 - 15 MMOL/L BUN CREATININE RATIO 20.2 6 - 26 A/G RATIO 1.1 1.0 - 2.0 RATIO GFR ESTIMATE >90 >90 ML/MIN/1.73 M2 TROPONIN, QUANT Result Value Ref Range TROPONIN I HIGH SENSITIVITY 4 <54 ng/L TSH W/REFLEX Result Value Ref Range TSH 0.381 0.358 - 3.74 uIU/ML MAGNESIUM Result Value Ref Range MAGNESIUM 2.3 1.8 - 2.4 MG/DL PHOSPHORUS, INORGANIC PHOSPHATE Result Value Ref Range PHOSPHORUS 2.7 2.5 - 4.9 MG/DL TSH W/REFLEX Result Value Ref Range TSH 0.375 0.358 - 3.74 uIU/ML THYROXINE, FREE (FT4) Result Value Ref Range FREE T4 1.14 0.76 - 1.46 NG/DL IMAGING STUDIES CT HEAD WO CON Final Result by User, [id number] (11/27 1364) EXAMINATION: CT of the head CLINICAL HISTORY: Headache COMPARISON: None TECHNIQUE: CT examination of the head without contrast was performed with axial images obtained. A radiation dose lowering technique was used for this procedure, which may include, but is not limited to, dose reduction technique, automated exposure control, the use of iterative reconstruction, ALARA (As Low As Reasonably Achievable) techniques, and Image Gently techniques. FINDINGS: There is no evidence of acute intracranial hemorrhage, abnormal extra-axial collections, intracranial mass effect, or midline shift. The ventricles and extra-axial/subarachnoid spaces are unremarkable. The alva-white matter differentiation is grossly preserved. There is no definite CT evidence to suggest acute territorial infarction. The calvarium is unremarkable without evidence of acute fracture. The visualized mastoid air cells, paranasal sinuses, and orbits are grossly unremarkable. IMPRESSION: No definite CT evidence for acute intracranial abnormality. Please note that CT has limited sensitivity for the detection of acute ischemia. Referred By: Interpreted By: Gian Henderson MD, 11/27/2021 5:35 PM ED Course / Medical Decision Making MDM Number of Diagnoses or Management Options Migraine headache Diagnosis management comments: Pt presents w/ migraine BATES, pretty typical but lasting longer. No acute thunderclap sensation to suggest SAH. No fever/neck stiffness or meningitic signs seen on exam to suggest meningitis. No trauma/injury. No neurological findings, CN deficit or focal weakness. Benign PE as noted above. Pt reports improvement in sx after migraine cocktail but returned after long visit in ED (please refer to ED course below for additional details). CT scan negative for acute intracranial abnormality. Advised follow up with PCP/neurologist for further work up/evaluation. Strict verbal return precautions reviewed. Patient expresses verbal understanding and agreement with plan. All questions answered to the best of my ability. Nontoxic exit exam. Patient discharged home in stable condition. Amount and/or Complexity of Data Reviewed Clinical lab tests: ordered Tests in the radiology section of CPT??: ordered ED Course as of 11/29/21 1148 Tue Nov 28, 2021 2300 Patient notes that headache did improve with migraine cocktail. States that if she had left after the migraine cocktail and gone home to rest, she expects that her headache would have continued to improve. But since she stayed in the ED waiting to be discharged her headache returned. [AN] ED Course User Index [AN] An T Gaines, PA Medications sodium chloride 0.9% bolus infusion 1,000 mL (0 mLs Intravenous Infusion Stop Time 11/27/21 225) ketorolac (TORADOL) injection 30 mg (30 mg Intravenous Given 11/27/21 1705) diphenhydrAMINE (BENADRYL) injection 25 mg (25 mg Intravenous Given 11/27/21 1705) metoclopramide (REGLAN) injection 10 mg (10 mg Intravenous Given 11/27/21 1704) labetalol (TRANDATE) injection 20 mg (20 mg Intravenous Given 11/27/21 2313) Clinical Impression Migraine headache (Primary) Discharge Medication List as of 11/28/2021 12:33 AM START taking these medications Details ketorolac (TORADOL) 10 MG tablet Take 1 tablet (10 mg total) by mouth 4 (four) times daily as needed for Pain., Starting 11/28/2021, Until 12/03/2021 at 2449, Eprescribe Class: Eprescribe Pharmacy: [id number] [place], [place] - [facility] [place] [address]) [facility] ( #: [phone]) Disposition: Discharge Follow-Up: Presley Hernandez MD [address] [place] [address] Call DELMER PADILLA 11/29/2021 DELMER Padilla 11/29/21 1148 Cosigned by Campbell Stoner MD,PHD at 11/30/2021 6:43 AM CDT * Rosa Shepard RN - 11/27/2021 4:44 PM CDT Notified patient neurologist, per her request, that patient is here in ED. * DELMER Shah - 11/27/2021 3:10 PM CDT [place], [place] EMERGENCY DEPARTMENT ENCOUNTER Medical Screening Examination 11/27/21 3:22 PM Chief Complaint : Headache Recurrent Or Know Dx Migraine and Tachycardia HPI : Alannah Ruano is a 41-year-old female who presents with migraine, typical for her, for the past 3 days. States it has not improved with medications she takes for migraines (nurtec, maxalt, ibu, tylenol). Pt also notes elevated HR and blood pressure which is unusual for her. Denies any cardiac history. Feels the palpitations. Vital Signs: Filed Vitals: 11/27/21 1515 BP: (!) 165/132 Pulse: 141 Resp: 20 Temp: 97.3 ??F (36.3 ??C) TempSrc: Temporal SpO2: 99% Weight: 95.7 kg (210 lb 15.7 oz) Height: 5' 4 (1.626 m) Physical exam: A brief physical exam was completed to facilitate/expedite patient care. Tachycardia noted. Ambulatory. Plan: Necessary labs/imaging/medications ordered to initiate pt care. DELMER Shah 11/27/21 1522 Cosigned by Maria Guadalupe Valiente MD at 11/27/2021 3:23 PM CDT * Wilda Borrego RN - 11/27/2021 3:06 PM CDT Pt from home with migraine for the past three days. Has elevated heart rate and states her BP was high at home this morning. Has taken Nurtec,Maxalt, and Tylenol with no relief. Is under the care of a neurologist for her migraines. BP is 165/132 in triage. Pt was nauseous this AM, but took some Zofran with relief of nausea. documented in this encounter Plan of Treatment Upcoming Encounters Date Type Department Care Team (Late st Contact Info) Description 04/15/2024 1:00 PM LINING FELLER BLINDSTITCH [facility] Emergency [facility] - [facility] [address], [address] [place] [id number] Presley Hernandez MD [address] [place] [address] 04/30/2024 10:40 AM [employer]ING [employer]LLER BLINDST[employer] [facility] [address], [address] [place] [id number] Presley Hernandez MD [address] [place] [address] documented as of this encounter Procedures Procedure Name Priority Date/Time Associated Diagnosis Comments CT HEAD WO CON STAT 11/27/2021 5:23 PM CDT ECG 12-LEAD Routine 11/27/2021 4:51 PM CDT TSH W/REFLEX Routine 11/27/2021 4:22 PM CDT TSH W/REFLEX STAT 11/27/2021 4:22 PM CDT COMPREHENSIVE METABOLIC PANEL STAT 11/27/2021 4:22 PM CDT CBC W/DIFF AUTOMATED STAT 11/27/2021 4:22 PM CDT THYROXINE, FREE (FT4) Routine 11/27/2021 4:22 PM CDT TROPONIN, QUANT STAT 11/27/2021 4:22 PM CDT PHOSPHORUS, INORGANIC PHOSPHATE Routine 11/27/2021 4:22 PM CDT MAGNESIUM Routine 11/27/2021 4:22 PM CDT documented in this encounter Results * CT HEAD WO CON (11/27/2021 5:23 PM CDT) Anatomical Region Laterality Modality Head Computed Tomogra phy 11/27/2021 5:35 PM CDT Impressions 11/27/2021 5:36 PM CDT IMPRESSION: No definite CT evidence for acute intracranial abnormality. Please note that CT has limited sensitivity for the detection of acute ischemia. ?? Referred By: ?? Interpreted By: Gian Henderson MD, 11/27/2021 5:35 PM Narrative 11/27/2021 5:36 PM CDT EXAMINATION: CT of the head CLINICAL HISTORY: Headache COMPARISON: None TECHNIQUE: CT examination of the head without contrast ??was performed with axial images obtained. ??A radiation dose lowering technique was used for this procedure, which may include, but is not limited to, dose reduction technique, automated exposure control, the use of iterative reconstruction, ALARA (As Low As Reasonably Achievable) techniques, and Image Gently techniques. FINDINGS: There is no evidence of acute intracranial hemorrhage, abnormal extra-axial collections, intracranial mass effect, or midline shift. The ventricles and extra-axial/subarachnoid spaces are unremarkable. The alva-white matter differentiation is grossly preserved. There is no definite CT evidence to suggest acute territorial infarction. The calvarium is unremarkable without evidence of acute fracture. The visualized mastoid air cells, paranasal sinuses, and orbits are grossly unremarkable. Procedure Note Gian Henderson MD - 11/27/2021 EXAMINATION: CT of the head CLINICAL HISTORY: Headache COMPARISON: None TECHNIQUE: CT examination of the head without contrast was performed withaxial images obtained. A radiation dose lowering technique was used forthis procedure, which may include, but is not limited to, dose reductiontechnique, automated exposure control, the use of iterativereconstruction, ALARA (As Low As Reasonably Achievable) techniques, andImage Gently techniques. FINDINGS: There is no evidence of acute intracranial hemorrhage, abnormalextra-axial collections, intracranial mass effect, or midline shift. Theventricles and extra-axial/subarachnoid spaces are unremarkable. Thegray-white matter differentiation is grossly preserved. There is nodefinite CT evidence to suggest acute territorial infarction. Thecalvarium is unremarkable without evidence of acute fracture. Thevisualized mastoid air cells, paranasal sinuses, and orbits are grosslyunremarkable. IMPRESSION: No definite CT evidence for acute intracranial abnormality. Please note that CT has limited sensitivity for the detection of acuteischemia. Referred By: Interpreted By: Gian Henderson MD, 11/27/2021 5:35 PM us Chris DOWELL CT Final Resul t * ECG 12 lead (11/27/2021 4:51 PM CDT) 11/27/2021 4:51 PM CDT Narrative [facility] ([facility]) RAD - 11/28/2021 3:46 PM CDT ?[facility] ? [address] [facility] [place] ? Test Date: ?2021-11-27 Pat Name: ? ALANNAH RUANO ?Department: ?? 41 ? Room: ? EXAM24 Gender: ? Female ? Annual Greenhouse Manager: ?? : ?1980 ? Requested By: CHRIS CH Order Number: [id number] ? Reading : ?? Josep Cheatham ? Measurements Intervals ?[place] ? Rate: ? 117 ?P: ?16 NH: ? 155 ?QRS: ?-40 QRSD: ? 77 ? T: ?16 QT: ? 317 ? QTc: ?443 ? Interpretive Statements SINUS TACHYCARDIA LEFT AXIS DEVIATION ??[QRS AXIS < -30] PATTERN CONSISTENT WITH PULMONARY DISEASE No previous ECG available for comparison Procedure Note Josep Cheatham MD - 11/28/[address] [place] Test Date: 2021-11-27 Pat Name: ALANNAH RUANO Department: 41 Room: EXAM24 Gender: Female Annual Greenhouse Manager: : 1980 Requested By: CHRIS CH Order Number: [id number] Reading MD: Josep Cheatham Measurements Intervals [place] Rate: 117 P: 16 NH: 155 QRS: -40 QRSD: 77 T: 16 QT: 317 QTc: 443 Interpretive Statements SINUS TACHYCARDIA LEFT AXIS DEVIATION [QRS AXIS < -30] PATTERN CONSISTENT WITH PULMONARY DISEASE No previous ECG available for comparison us Chris Ch PA ECG ORDERABLES Final Resul t Performing Organization Address City/[facility]/ZIP Co de Phone Number [facility] ([facility]) RAD * THYROXINE, FREE (FT4) (11/27/2021 4:22 PM CDT) FREE T4 1.14 0.76 - 1.46 NG/DL 11/27/2021 8:31 PM CDT [facility] 11/27/2021 4:22 PM CDT us Campbell Stoner MD,PHD LABORATORY Final Resu lt Performing Organization Address City/[facility]/ZIP Co de Phone Number [facility] [address] [place] [address], [place] [phone] * TSH W/REFLEX (11/27/2021 4:22 PM CDT) TSH 0.375 0.358 - 3.74 uIU/ML 11/27/2021 8:31 PM CDT [facility] Comment: HIGH DOSES OF BIOTIN MAY INTERFERE WITH THIS TEST RESULT. CORRELATION TO CLINICAL HISTORY AND PRESENTATION RECOMMENDED. FREE T4 NOT INDICATED 11/27/2021 4:22 PM CDT Campbell Stoner MD,PHD LABORATORY Final Resu lt [facility] [address] [place] [address], [place] [phone] * PHOSPHORUS, INORGANIC PHOSPHATE (11/27/2021 4:22 PM CDT) PHOSPHORUS 2.7 2.5 - 4.9 MG/DL 11/27/2021 8:31 PM CDT [facility] 11/27/2021 4:22 PM CDT Campbell Stoner MD,PHD LABORATORY Final Resu lt Performing Organization Address City/[facility]/ZIP Co de Phone Number [facility] [address] [place] [address], [place] [phone] * MAGNESIUM (11/27/2021 4:22 PM CDT) MAGNESIUM 2.3 1.8 - 2.4 MG/DL 11/27/2021 8:31 PM CDT [facility] 11/27/2021 4:22 PM CDT Campbell Stoner MD,PHD LABORATORY Final Resu lt Performing Organization Address City/[facility]/ZIP Co de Phone Number [facility] [address] [place] [address], [place] [phone] * TSH W/REFLEX (11/27/2021 4:22 PM CDT) TSH 0.381 0.358 - 3.74 uIU/ML 11/27/2021 5:34 PM CDT [facility] Comment: HIGH DOSES OF BIOTIN MAY INTERFERE WITH THIS TEST RESULT. CORRELATION TO CLINICAL HISTORY AND PRESENTATION RECOMMENDED. FREE T4 NOT INDICATED 11/27/2021 4:22 PM CDT Chris DOWELL LABORATORY Final Resul t Performing Organization Address [facility] Co de Phone Number [facility] [address] [place] [address], [place] [phone] * TROPONIN, QUANT (11/27/2021 4:22 PM CDT) TROPONIN I HIGH SENSITIVITY 4 <54 ng/L 11/27/2021 5:34 PM CDT [facility] Comment: HIGH DOSES OF BIOTIN, TROPONIN-SPECIFIC AUTOANTIBODIES, AND ANTIBODY THERAPY CONTAINING HAMA MAY INTERFERE WITH THIS TEST RESULT. CORRELATION TO CLINICAL HISTORY AND PRESENTATION RECOMMENDED. 11/27/2021 4:22 PM CDT Chris DOWELL LABORATORY Final Resul t Performing Organization Address [facility] Co de Phone Number [facility] [address] [place] [address], [place] [phone] * (ABNORMAL) COMPREHENSIVE METABOLIC PANEL (11/27/2021 4:22 PM CDT) GLUCOSE 128(H) 70 - 99 MG/DL 11/27/2021 5:34 PM CDT [facility] BUN 12 7 - 18 MG/DL 11/27/2021 5:34 PM CDT [facility] CREATININE S/P/B 0.59 0.55 - 1.02 MG/DL 11/27/2021 5:34 PM CDT [facility] SODIUM S/P/B 138 136 - 145 MMOL/L 11/27/2021 5:34 PM CDT [facility] POTASSIUM S/P/B 3.9 3.5 - 5.1 MMOL/L 11/27/2021 5:34 PM CDT [facility] CHLORIDE S/P/B 106 100 - 108 MMOL/L 11/27/2021 5:34 PM CDT [facility] CO2 23.5 21 - 32 MMOL/L 11/27/2021 5:34 PM CDT [facility] CALCIUM S/P/B 9.3 8.5 - 10.1 MG/DL 11/27/2021 5:34 PM CDT [facility] BILIRUBIN TOTAL S/P/B 0.3 0.2 - 1.2 MG/DL 11/27/2021 5:34 PM CDT [facility] Comment: THIS ASSAY IS NOT RECOMMENDED FOR PATIENTS UNDERGOING TREATMENT WITH ELTROMBOPAG DUE TO THE POTENTIAL FOR FALSELY ELEVATED RESULTS. TOTAL PROTEIN S/P/B 7.7 6.4 - 8.2 G/DL 11/27/2021 5:34 PM CDT [facility] ALBUMIN S/P/B 4.0 3.4 - 5.0 G/DL 11/27/2021 5:34 PM CDT [facility] AST 17 15 - 37 U/L 11/27/2021 5:34 PM CDT [facility] ALT 41 14 - 55 U/L 11/27/2021 5:34 PM CDT [facility] ALKALINE PHOSPHATASE S/P/B 81 50 - 136 U/L 11/27/2021 5:34 PM CDT [facility] ANION GAP 8.5 5 - 15 MMOL/L 11/27/2021 5:34 PM CDT [facility] BUN CREATININE RATIO 20.2 6 - 26 11/27/2021 5:34 PM CDT [facility] A/G RATIO 1.1 1.0 - 2.0 RATIO 11/27/2021 5:34 PM CDT [facility] GFR ESTIMATE >90 >90 ML/MIN/1.7 3 M2 11/27/2021 5:34 PM CDT [facility] Comment: NOTE: eGFR is not calculated for patients <18 years of age. This is an estimated GFR calculation using the new CKD EPI creatinine equation without race and so does not require a correction factor for race. This estimated GFR should not be used for calculating drug doses. 11/27/2021 4:22 PM CDT us Chris DOWELL LABORATORY Final Resul t [facility] [address] [place] [address], [place] [phone] * (ABNORMAL) CBC W/DIFF AUTOMATED (11/27/2021 4:22 PM CDT) WBC 9.3 4.5 - 11.0 x10'3/uL 11/27/2021 4:55 PM CDT [facility] RBC 4.94 4.20 - 5.40 x10'6/uL 11/27/2021 4:55 PM CDT [facility] HGB 15.1 12.0 - 16.0 G/DL 11/27/2021 4:55 PM CDT [facility] HCT 44.1 38.0 - 48.0 % 11/27/2021 4:55 PM CDT [facility] MCV 89.3 81.0 - 99.0 FL 11/27/2021 4:55 PM CDT [facility] MCH 30.6 27.0 - 31.0 PG 11/27/2021 4:55 PM CDT [facility] MCHC 34.2 32.0 - 36.0 G/DL 11/27/2021 4:55 PM CDT [facility] RDW 12.9 11.5 - 14.5 % 11/27/2021 4:55 PM CDT [facility] PLT 258 130 - 400 x10'3/uL 11/27/2021 4:55 PM CDT [facility] MPV 9.1(L) 9.3 - 12.2 FL 11/27/2021 4:55 PM CDT [facility] DIFFERENTIAL TYPE AUTOMATED DIFFERENTIAL 11/27/2021 4:55 PM CDT [facility] NEUTROPHILS % 65.8 % 11/27/2021 4:55 PM CDT [facility] LYMPHOCYTES % 25.3 % 11/27/2021 4:55 PM CDT [facility] MONOCYTES % 7.1 % 11/27/2021 4:55 PM CDT [facility] EOSINOPHILS 0.9 % 11/27/2021 4:55 PM CDT [facility] BASOPHILS 0.6 % 11/27/2021 4:55 PM CDT [facility] IMMATURE GRANS % 0.3 % 11/28/19 4:55 PM CDT [facility] ABS. NEUTROPHILS TOTAL 6.08 1.80 - 7.70 x10'3/uL 11/27/2021 4:55 PM CDT [facility] ABS. LYMPHOCYTES 2.34 1.00 - 4.80 x10'3/uL 11/27/2021 4:55 PM CDT [facility] ABS. MONOCYTES 0.66 0.24 - 0.86 x10'3/uL 11/27/2021 4:55 PM CDT [facility] ABS. EOSINOPHILS 0.08 0.04 - 0.36 x10'3/uL 11/27/2021 4:55 PM CDT [facility] ABS. BASOPHILS 0.06 0.01 - 0.08 x10'3/uL 11/27/2021 4:55 PM CDT [facility] ABS. IMMATURE GRANULOCYTES 0.03 0.00 - 0.49 x10'3/uL 11/27/2021 4:55 PM CDT [facility] 11/27/2021 4:22 PM CDT us Chris DOWELL LABORATORY Final Resul t [facility] [address] [place] [address], [place] [phone] documented in this encounter Visit Diagnoses Diagnosis Migraine headache- Primary Migraine, unspecified, without mention of intractable migraine without mention of status migrainosus documented in this encounter Administered Medications Inactive Administered Medications - up to 3 most recent administrations Medication Order MAR Action Action Date Dose Rate Site diphenhydrAMINE (BENADRYL) injection 25 mg 25 mg, Intravenous, Once, 1 dose, On Sat11/27/21 at 1700, For IV administration, give no faster than 25 mg/min. Given 11/27/2021 5:05 PM CDT 25 mg ketorolac (TORADOL) injection 30 mg 30 mg, Intravenous, Once, 1 dose, On Sat11/27/21 at 1700, For IV administration, give over 15 seconds. Given 11/27/2021 5:05 PM CDT 30 mg labetalol (TRANDATE) injection 20 mg 20 mg, Intravenous, Once, 1 dose, On Sat11/27/21 at 2315, Bolus may be administered by IV push at a rate of 10 mg/min. Monitor HR and BP prior to admin, 15 and 30 minutes post administration. Do not give if SBP <100mm or HR <55. Patient to stay supine during and for 30 minutes after IV administration due to potential for orthostatic hypotension. Given 11/27/2021 11:13 PM CDT 20 mg metoclopramide (REGLAN) injection 10 mg 10 mg, Intravenous, Once, 1 dose, On Sat11/27/21 at 1700, Administer IV over 1-2 minutes Given 11/27/2021 5:04 PM CDT 10 mg sodium chloride 0.9% bolus infusion 1,000 mL 1,000 mL, Intravenous, Administer over 60 Minutes, Once, 1 dose, On Sat11/27/21 at 1700 New Bag 11/27/2021 5:09 PM CDT 1,000 mLs 999 mL/hr documented in this encounter Active and Recently Administered Medications Times are shown in CDT. Scheduled Medication Order 11/26/2021 11/27/2021 11/28/2021 diphenhydrAMINE (BENADRYL) injection 25 mg (COMPLETED) 25 mg, Intravenous, Once, 1 dose, On Sat11/27/21 at 1700, For IV administration, give no faster than 25 mg/min. 1705 (Given - Provider: Rosa Shepard RN) ketorolac (TORADOL) injection 30 mg (COMPLETED) 30 mg, Intravenous, Once, 1 dose, On Sat11/27/21 at 1700, For IV administration, give over 15 seconds. 170 (Given - Provider: Rosa Shepard RN) labetalol (TRANDATE) injection 20 mg (COMPLETED) 20 mg, Intravenous, Once, 1 dose, On Sat11/27/21 at 2315, Bolus may be administered by IV push at a rate of 10 mg/min. Monitor HR and BP prior to admin, 15 and 30 minutes post administration. Do not give if SBP <100mm or HR <55. Patient to stay supine during and for 30 minutes after IV administration due to potential for orthostatic hypotension. 2313 (Given - Provider: Wendy Scott RN) metoclopramide (REGLAN) injection 10 mg (COMPLETED) 10 mg, Intravenous, Once, 1 dose, On Sat11/27/21 at 1700, Administer IV over 1-2 minutes 170 (Given - Provider: Rosa Shepard RN) sodium chloride 0.9% bolus infusion 1,000 mL (COMPLETED) 1,000 mL, Intravenous, Administer over 60 Minutes, Once, 1 dose, On Sat11/27/21 at 1700 170 (New Bag - Provider: Rosa Shepard RN)2252 (Infusion Stop Time - Provider: Wendy Scott RN) documented in this encounter Care Teams Cable Television Technician Relationship Specialty Start Date End Date Deedee Low PA [address] [place] [address] PCP - General PHYSICIAN AIRLINE SECURITY REPRESENTATIVE 07/22/20 documented as of this encounter
--- OUTSIDE RECORDS SUMMARY | 2024-02-24 17:00 | XMS_ITS | Encounter Summary ---
Author Organization [facility] Address [address] [place] [address]. [place], [place] [address] [place] [id number] Care Team Providers Care Service Coordinator Name Role Phone Deedee Low Primary Care Provider [phone] Reason for Referral * Imaging (Routine) - Closed Specialty Diagnoses / Procedures Referred By Angelita silva Referred To Contact RADIOLOGY Diagnoses Lumbosacral radiculopathy Procedures MRI LUMB SPINE WO CON Presley Hernandez MD [address] [place] [address] Phone: tel: fax: Referral ID Status Reason Start Date Expiration Date Visits Re quested Visits Authorized [id number] Closed 10/20/2021 04/18/2022 1 1 * Imaging (Routine) - Closed Specialty Diagnoses / Procedures Referred By Angelita silva Referred To Contact RADIOLOGY Diagnoses Cervical radiculopathy Procedures MRI CERV SPINE WWO CON Presley Hernandez MD [address] [place] [address] Phone: tel: fax: Referral ID Status Reason Start Date Expiration Date Visits Re quested Visits Authorized [id number] Closed 10/20/2021 04/18/2022 1 1 Reason for Visit * Reason Comments Follow Up * Injection (Routine) - Closed Specialty Diagnoses / Procedures Referred By Contact Referred To Contact NEUROMUSCULOSKELETAL MEDICIN E / NEUROLOGY Diagnoses Neuralgia Migraine without aura, not intractable, without status migrainosus botox/neuralgia Procedures BOTULINUM TOXIN A PER UNIT BOTOX Presley Hernandez MD [address] [place] [address] Phone: tel:[phone] fax:[phone] Presley Hernandez MD [address] [place] [address] Phone: tel: fax:[phone] Referral ID Status Reason Start Date Expiration Date Visits Re quested Visits Authorized [id number] Closed 10/04/2021 04/05/2022 99 99 Encounter Details Date Type Department Care Team (Late st Contact Info) Description 10/05/2021 11:40 AM CDT Office Visit [facility] Mult[facility] - [address], [address] [place] [phone] Presley Hernandez MD [address] [place] [id number] Follow Up Social History Tobacco Use Types [...] Sign Reading Time Taken Comments Blood Pressure 136/82 10/05/2021 11:39 AM CDT Pulse 64 10/05/2021 11:39 AM CDT Temperature 36.6 ??C (97.9 ??F) 10/05/2021 11:39 AM C DT Respiratory Rate - - Oxygen Saturation 99% 10/05/2021 11:39 AM CDT Inhaled Oxygen Concentration - - Weight - - Height - - Body Mass Index - - documented in this encounter Progress Notes * Presley Hernandez MD - 10/05/2021 11:40 AM CDTAddended by: PRESLEY HERNANDEZ on: 11/28/2021 04:30 PM Modules accepted: Orders * Presley Hernandez MD - 10/05/2021 11:40 AM CDT Chief Complaint: headaches, neck pain HPI: With the pleasure of seeing Ms. Ruano in the clinic. Since I last saw her, she notes her headachesare better. Short of neck pain are better. She got Toradol injections as well as Botox injections but this seems to have helped her. She still has migraines and notes Nurtec sometimes help her sometimes it does not. She is okay to continue Botox for this as well. Next, she has neck pain and low back pain. Neck pain radiates down her spine. She has had x-rays in the past which showed arthritis. She has done therapy for this. This has been not helpful. She also has low back pain which radiates down her spine in the leg. Again she has had x-rays and therapy in the past without much benefit. She also continues to have nausea. Unfortunately she has been having hard time keeping promethazine down. She is okay to try Zofran. She has history of macular edema. So far lumbar puncture has been unrevealing. I have asked her to follow-up with neuro-ophthalmology on this. Review of Systems Gen:?denies??recent fever Eyes:?denies??double vision ENT:?denies??epistaxis Pulm:?denies??shortness of breath Cardiac:??denies??Chest pain GI:??denies??lower abdominal pain Musc:?has??back pain Neuro: ??See HPI Current Outpatient Medications Medication Sig Dispense Refill ??? ondansetron (ZOFRAN ODT) 4 MG disintegrating tablet Take 1 tablet (4 mg total) by mouth every 8(eight) hours as needed for Nausea. 20 tablet 11 ??? ADVAIR DISKUS 250-50 MCG/ACT inhaler ??? albuterol sulfate HFA 108 (90 Base) MCG/ACT inhaler Inhale 2 puffs into the lungs every 6 (six)hours as needed for Wheezing. ??? buPROPion SR 100 MG 12 hr tablet Take 100 mg by mouth 2 (two) times daily. ??? carBAMazepine 200 MG tablet Take 0.5 tablets (100 mg total) by mouth 3 (three) times daily. 90 tablet 6 ??? cetirizine 10 MG tablet Take 10 mg by mouth daily. ??? diazePAM 5 MG tablet Take 5 mg by mouth every 8 (eight) hours as needed for Anxiety. ??? diphenhydrAMINE 25 MG capsule Take 25 mg by mouth every 6 (six) hours as needed for Itching. ??? doxycycline hyclate 100 MG tablet Take 1 tablet by mouth daily. on an empty stomach ??? insulin aspart 100 UNIT/ML injection (PEN) Inject into the skin 3 (three) times daily before meals. ??? insulin aspart 100 UNIT/ML injection (VIAL) Inject into the skin 3 (three) times daily before meals. ??? ketorolac 0.4 % ophthalmic solution 1 drop 4 (four) times daily. ??? lamoTRIgine 100 MG tablet Take 100 mg by mouth 2 (two) times daily. ??? lisinopril 20 MG tablet Take 20 mg by mouth daily. ??? montelukast 10 MG tablet Take 10 mg by mouth nightly at bedtime. ??? ondansetron 8 MG tablet Take by mouth every 8 (eight) hours as needed for Nausea. ??? pantoprazole EC 40 MG tablet Take 40 mg by mouth every 12 (twelve) hours. ??? promethazine 6.25 MG/5ML syrup Take 10 mLs (12.5 mg total) by mouth once as needed for Nausea. 120 mL 5 ??? propranolol 20 MG tablet Take 1 tablet (20 mg total) by mouth 2 (two) times daily. 60 tablet 6 ??? rimegepant (NURTEC) 75 MG disintegrating tablet Take 1 tablet (75 mg total) by mouth daily as needed for Migraine. 16 tablet 5 ??? rizatriptan (MAXALT) 10 MG tablet Take 1 tablet (10 mg total) by mouth as needed for Migraine. May repeat in 2 hours if needed 16 tablet 5 ??? topiramate (TOPAMAX) 200 MG tablet Take 1 tablet (200 mg total) by mouth 2 (two) times daily. 60 tablet 6 ??? ziprasidone 20 MG capsule Take 60 mg by mouth daily. No current facility-administered medications for this visit. Filed Vitals: 10/05/21 1139 BP: 136/82 Pulse: 64 Temp: 97.9 ??F (36.6 ??C) TempSrc: Temporal SpO2: 99% Past Medical History: Diagnosis Date ??? Anxiety disorder, unspecified ??? Asthma ??? Depression ??? Diabetes mellitus (CMS/HCC) ??? GERD (gastroesophageal reflux disease) ??? Hypertension ??? Migraines Past Surgical History: Procedure Laterality Date ??? ADENOIDECTOMY ??? GASTRIC SLEEVE PROCEDURE--P 2020 ??? REVISE ULNAR NERVE AT ELBOW Left ??? SINUS SURGERY PROC UNLISTED ??? TONSILLECTOMY No family history on file. Social History Tobacco Use ??? Smoking status: Former Smoker Types: Cigarettes ??? Smokeless tobacco: Never Used Vaping Use ??? Vaping Use: Never used Substance Use Topics ??? Alcohol use: Yes Comment: occasionally ?? MOTOR: Normal strength 5/5 on MRC scale in the upper and lower extremities. Normal muscle tone. Fine finger movements were normal bilaterally. No pronator drift ? COORDINATION: Absent dysmetria on finger -nose -finger. No tremor. ?? GAIT: Normal stride and base. REFLEXES: Normal 2+/4 in upper and lower extremities.. Weiss's negative. Impression and Plan: In summary Ms. Ruano has chronic migraine with aura. I will continue Botox injections every 3 months for 12 months for the migraine. In addition she also has features of cervical dystonia. I will doEMG guided Botox injections for this. For trigeminal neuralgia, will continue home medications and I will complete treatment with Botox injections as well. For her macular edema, I noted to her do not have a clear etiology. Extensive work-up including lumbar puncture was normal with normal opening pressure. I have asked her to make an appointment with the neuro-transitions manager to further evaluatethis. She has neck pain and low back pain. I suspect this could be mechanical in nature. I also suspect she may have a component of radiculopathy. She has had normal x-rays in the past and has done physical therapy for 6 to 8 weeks. To further evaluate this, I will do MRI of the C-spine and MRI of the lumbar spine with and without contrast. Based on this, I think she would benefit from referral to pain management as well. For her history of migraines, and aura along with nausea and vomiting, I will continue Nurtec. In addition I prescribed her Zofran 4 mg ODT. She has been using oral medication, liquid promethazine. Unfortunate she gets vomiting and she is unable to keep the medication downand the symptoms continue. Does have prescribed a already formulation as this can control her nausea and vomiting. Time spent: 30 total minutes reviewing records, history that was separately obtained, performing the exam, providing education to the patient/caregiver, ordering medicine and documenting in the medical record. PRESLEY HERNANDEZ MD documented in this encounter Plan of Treatment Upcoming Encounters Date Type Department Care Team (Late st Contact Info) Description 04/15/2024 1:00 PM QA DEVELOPER Office Visit [facility] Mult[facility] - [address], [address] [place] [phone] Presley Hernandez MD [address] [place] [address] 04/30/2024 10:40 AM QA DEVELOPER Office Visit [facility] - [facility] [address] [facility], [address] [place] [phone] Presley Hernandez MD [address] [place] [address] documented as of this encounter Results * MRI CERV SPINE [...] MD - 10/25/2021 Examination: MRI CERV SPINE [facility], 10/25/2021 11:46 AM. Technique: Axial and sagittal [...] of L1, normal. The conus medullaris terminates [id number], normal. There is a normal distribution of [...] radiculopathy- Primary Brachial neuritis or radiculitis nos Lumbosacral radiculopathy Thoracic or lumbosacral neuritis or radiculitis, unspecified Nausea Nausea alone Migraine without aura, not intractable, without status migrainosus Lumbosacral radiculopathy Thoracic or lumbosacral neuritis or radiculitis, unspecified Cervical radiculopathy Brachial neuritis or radiculitis nos documented in this encounter Care Teams Service Coordinator Relationship Specialty Start Date End Date Deedee Low PA [address] [place] [address] PCP - General PHYSICIAN MINE INSPECTOR 07/22/20 documented as of this encounter
--- OUTSIDE RECORDS SUMMARY | 2024-02-24 17:00 | XMS_ITS | Encounter Summary ---
Author Organization [facility] Address [address] [place] [address]. [place], [place] [address] [place] [address] Care Team Providers Care Agronomy Instructor Name Role Phone Deedee Low Primary Care Provider [phone] Reason for Visit * Auth/Cert Specialty Diagnoses / Procedures Referred By Angelita silva Referred To Contact Diagnoses sacroiliitis Procedures BLOCK SACROILIAC JOINT Ishmael Casper MD Three [facility] [address] [place] [address] Phone: tel: fax: Referral ID Status Reason Start Date Expiration Date Visits Re quested Visits Authorized [id number] 1 1 Encounter Details Date Type Department Care Team (Latest Contact Info) Description 01/04/2022 8:08 AM CDT - 01/04/2022 10:02 AM T Hospital Encounter [facility] Interventional Pain Management Center [place], [place] [id number] [id number] Ishmael Casper MD Three [facility] [address] [place] [address] [id number] Discharge Disposition: Home or Self Care (Routine [...] Sign Reading Time Taken Comments Blood Pressure 143/94 01/04/2022 9:46 AM CDT Pulse 78 01/04/2022 9:46 AM CDT Temperature 36.8 ??C (98.3 ??F) 01/04/2022 8:59 AM CD T Respiratory Rate 20 01/04/2022 9:37 AM CDT Oxygen Saturation 97% 01/04/2022 9:46 AM CDT Inhaled Oxygen Concentration - - Weight 98.2 kg (216 lb 6.4 oz) 01/04/2022 8:36 A M CDT Height 162.6 cm (5' 4 ) 01/04/2022 8:36 AM CDT Body Mass Index 37.14 01/04/2022 8:36 AM CDT documented in this encounter Discharge Instructions * Discharge Instructions* Kaylan Toribio RN - 01/04/2022 9:51 AM CDT [place] Interventional Pain Management Discharge Instructions You are scheduled for cervical injections . On January 18. Please arrive at registration desk [id number] AM. . Please arrive in outpatient registration [...] DOCTOR AND HOW TO REACH US: Call [phone] ext. [phone] for scheduling, insurance questions or speak with [...] Continuous Blood Gluc Sensor (DEXCOM G6 SENSOR) [facility] 2 Continuous Blood Gluc Transmit (DEXCOM G6 TRANSMITTER) [facility] 2 diazePAM 5 [...] 23 promethazine 6.25 MG/5ML syrupIndications:MS (multiple sclerosis) ([facility]),Migraine without aura, not intractable, without status migrainosus Take 10 mLs (12.5 mg total) by mouth once as needed for Nausea. 120 mL 5 2 07/12/19 23 propranolol 20 MG tabletIndications:M S (multiple sclerosis) ([facility]),Migraine without aura, not intractable, without status migrainosus [...] (MAXALT) 10 MG tabletIndications:M S (multiple sclerosis) ([facility]),Migraine without aura, not intractable, without status migrainosus Take 1 tablet (10 mg total) by mouth as needed for Migraine. May repeat in 2 hours if needed 16 tablet 5 2 07/24/19 24 documented as of this encounter H&P Notes * Ishmael Casper MD - 01/04/2022 9:00 AM CDT HISTORY [...] were discussed with the patient and/or family/personal patient financial representative. Questions were answered and the patient/family/personal patient financial representative verbalized understanding and desires to proceed. Previous Adverse Experience with Sedation, Analgesia, or Anesthesia? No Risk benefits and alternate treatments were discussed. Signed: ISHMAEL CASPER MD 9:20 AM Source Note - NICO [...] injection procedure to be completed by Dr. Casper. She presents today with neck pain that radiates across her posterior shoulders and down her arms to her hands. She said that she has had chronic neck pain and migraine headaches that began gradually. She also mentions some pain to the base of her palms, to the bones of her wrist, said that she receives managed care director and does receive wrist injections. 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 She does report some relief of pain with lying down, massage, relaxation, application of heat and medications. Previous treatments: She has undergone physical therapy in the past at [facility]. She has tried application of cold and heat, said has benefited from the heat. She receives managed care director with [facility] in [place], [place]. She has tried TENS. She has tried [place], Toradol, Tylenol for pain relief. Past Medical History: Diagnosis Date ??? Anxiety disorder, unspecified ??? Asthma ??? Depression ??? Diabetes mellitus ([facility]) ??? GERD (gastroesophageal reflux disease) ??? Hypertension [...] elbow extension and flexion, lift off test, stunt performer and finger abduc tion. No color changes, [...] procedure, which will be completed by Dr. Casper. The cervical epidural and SI joint injection procedures will be completed by Dr. Casper in separate sessions. It was my pleasure to participate in her care. Thank you for referring this very pleasant patient. NICO BLANDON CC: Presley Hernandez MD Cosigned by Ishmael Casper MD at 12/08/2021 12:15 PM CDT documented in this encounter OR Notes * Op Note - Ishmael Casper MD - 01/04/2022 9:44 AM CDT PROCEDURE: bilateral SACROILIAC JOINT INJECTION UNDER FLUOROSCOPY PREOPERATIVE DIAGNOSIS: SACRAL ILIAC JOINT INFLAMMATION POSTOPERATIVE DIAGNOSIS: SAME PREOP SURGEON: ISHMAEL CASPER MD CHIEF COMPLAINT: LOW BACK PAIN RISKS, [...] st Contact Info) Description 04/15/2024 1:00 PM SEWER CONNECTOR [facility] [address] [facility], [address] [place] [phone] Presley Hernandez MD 3 [place] [address] 04/30/2024 10:40 AM SEWER CONNECTOR [facility] [address] [facility], [address] [place] [phone] Presley Hernandez MD 3 [place] [address] documented as of this encounter Procedures Procedure Name Priority Date/Time Associated Diagnosis Comments BLOCK SACROILIAC JOINT 01/04/2022 9:26 AM CDT sacroiliitis XR PAIN CLINIC C-ARM Today 01/04/2022 9:20 AM CDT POCT GLUCOSE - PELAEZ DOCKED DEVICE Routine 01/04/2022 8:57 AM CDT XR PAIN CLINIC C-ARM Today 01/04/2022 8:18 AM CDT documented in this encounter Results * XR PAIN CLINIC C-ARM (01/04/2022 9:20 AM CDT) Narrative Radiology, Technologist - 01/04/2022 9:20 AM CDT This report does not contain a radiologist's interpretation. Please review associated procedure and/or operative report. us Ishmael Casper MD GENERAL IMAGING Final Result * (ABNORMAL) POCT glucose (01/04/2022 8:57 AM CDT) GLUCOSE POC 119(H) 70 - 99 mg/dL 01/04/2022 9:02 AM CDT [facility] 01/04/2022 8:57 AM CDT us Ishmael Casper MD POCT ORDERABLES - DEVICE Sarah l Result [facility] 3 [facility] [place] [address], [place] [phone] * XR PAIN CLINIC C-ARM (01/04/2022 8:18 AM CDT) Narrative Radiology, Technologist - 01/04/2022 8:18 AM CDT This report does not contain a radiologist's interpretation. Please review associated procedure and/or operative report. Ishmael Casper MD GENERAL IMAGING Final Result documented in [...] 01/04/22 at 0849, Created by cabinet override documented in this [...] 0939, Intra-Op 0937 (Given - Provid er: Ishmael Casper MD) chlorhexidine (PERIDEX) 0.12 % solution 15 [...] 0939, Intra-Op 0936 (Given - Provid er: Ishmael Casper MD) lidocaine (PF) (XYLOCAINE) 1 % injection (CANCELED) As needed, Starting on Mariaelena 01/04/22 at 0931, Until Mariaelena 01/04/22 at 0939, Intra-Op 0931 (Given - Provid er: Ismhael Casper MD) triamcinolone acetonide (KENALOG-40) injection (CANCELED) As needed, Starting on Mariaelena 01/04/22 at 0937, Until Mariaelena 01/04/22 at 0939, Intra-Op 0937 (Given - Provid er: Ishmael Casper MD) documented in this encounter Care Teams Agronomy Instructor Relationship Specialty Start Date End Date Deedee Low PA [address] [place] [address] PCP - General PHYSICIAN PRODUCTION SORTER 07/22/20 documented as of this encounter
--- OUTSIDE RECORDS SUMMARY | 2024-02-24 17:00 | XMS_ITS | Encounter Summary ---
Author Organization [facility] Address [address] [place] [address]. [place], [place] [phone] [place] [address] Care Team Providers Care Fleet Administrative Assistant Name Role Phone Deedee Low Primary Care Provider [phone] Reason for Visit * Reason Comments Botox Procedure * Medication (Routine) - Canceled Specialty Diagnoses / Procedures Referred By Contact Referred To Contact NEUROMUSCULOSKELETAL MEDICIN E / NEUROLOGY Diagnoses b Migraines #1 200 unit Procedures BOTOX Presley Hernandez MD [address] [place] [address] Phone: tel:[phone] fax:[phone] Presley Hernandez MD [address] [place] [address] Phone: tel:[phone] fax: Referral ID Status Reason Start Date Expiration Date V isits Requested Visits Authorized [id number] Canceled 09/27/2021 09/27/2022 4 4 Encounter Details Date Type Department Care Team (Late st Contact Info) Description 09/27/2021 10:55 AM CDT Office Visit [facility] Multispecialty Care - [address], [address] [place] [address] Presley Hernandez MD [address] [place], [place] [address], [place] [address] Botox Procedure Social History Tobacco Use Types Packs/Day Years [...] Sign Reading Time Taken Comments Blood Pressure 128/86 09/27/2021 10:56 AM CDT Pulse 77 09/27/2021 10:56 AM CDT Temperature 36.8 ??C (98.2 ??F) 09/27/2021 1 0:56 AM CDT Respiratory Rate 16 09/27/2021 10:5 6 AM CDT Oxygen Saturation 99% 09/27/2021 10: 56 AM CDT Inhaled Oxygen Concentration - - Weight 95.6 kg (210 lb 12.8 oz) 022 10:56 AM CDT Height 162.6 cm (5' 4 ) 09/27/2021 10:5 6 AM CDT Body Mass Index 36.18 09/27/2021 10:56 AM CDT documented in this encounter Progress Notes * Presley Hernandez MD - 09/27/2021 10:55 AM CDT Botox treatment cycle number: 1 Lot type: buy and bill Wastage: 45 Botox Injection Procedure [...] 155 units at 31 different sites. A. Bow Tacker : 10 Units divided in 2 sites [...] st Contact Info) Description 04/15/2024 1:00 PM DYNAMICS AX SOLUTION ARCHITECT [facility] [address], [address] [phone] Presley Hernandez MD [address] [place] [phone] 04/30/2024 10:40 AM DYNAMICS AX SOLUTION ARCHITECT [facility] [address], [address] [place] [phone] Presley Hernandez MD [address] [place] [address] Scheduled Orders Name Type Priority Associated Diagnoses Orde r Schedule CHEMODENERVATION MUSCLE INNERVTD, BILAT Procedures Routine Chronic migraine w/o aura w/o status migrainosus, not intractable Ordered: 09/27/2021 documented as of this encounter Visit Diagnoses [...] 155 Units, Intramuscular, Once, 1 dose, On Sat09/27/21 at 2200Indications:Chronic migraine w/o aura w/o status migrainosus, not intractable Given 09/27/2021 10:00 PM CDT 155 Units Other documented in this encounter Care Teams Fleet Administrative Assistant Relationship Specialty Start Date End Date Deedee Low PA [address] [place] [address] PCP - General PHYSICIAN SECOND BAKER 07/22/20 documented as of this encounter
--- OUTSIDE RECORDS SUMMARY | 2024-02-24 17:00 | XMS_ITS | Encounter Summary ---
Author Organization [facility] Address [address] [place] [address]. [place] [address] [place] [address] Care Team Providers Care Autos Disassembler Name Role Phone Jennifermary Deedee DOWELL Primary Care Provider [phone] Reason for Visit * Reason Onset Date Comments Results 10/25/2021 Encounter Details Date Type Department Care Team (Late st Contact Info) Description 10/25/2021 Telephone [facility] Mult[facility]pecialty Care - [facility] [address] [facility], [address] [place] [phone] Presley Hernandez MD 3 [place], [place] [phone] Results Social History Tobacco Use Types Packs/Day [...] Progress Notes * Michelle Begum RN - 10/25/2021 4:12 PM CDT Spoke with patient to discuss MRI results. Patient verbalized understanding. 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 AgainI will put a referral to our pain specialist to get this further evaluated. documented in this encounter Plan of Treatment Upcoming Encounters Date Type Department Care Team (Late st Contact Info) Description 04/15/2024 1:00 PM BEHAVIORAL HEALTH CONSULTANT Office Visit [facility] - [facility] [address] [facility], [address] [place] [phone] Presley Hernandez MD [address] [place] [phone] 04/30/2024 10:40 AM BEHAVIORAL HEALTH CONSULTANT [facility] [address] [facility], [address] [place] [phone] Presley Hernandez MD 3 [place], [place] [phone] documented as of this encounter Visit Diagnoses Not on filedocumented in this encounter Care Teams Autos Disassembler Relationship Specialty Start Date End Date Deedee Low PA [address] [facility] [address] [place] [address] PCP - General PHYSICIAN ASBESTOS REMOVAL WORKER 07/22/20 documented as of this encounter
--- OUTSIDE RECORDS SUMMARY | 2024-02-24 17:00 | XMS_ITS | Encounter Summary ---
Author Organization [facility] Address [address] [place] [address]. [place], [place] [address] [place] [address] Care Team Providers Care Centerless Grinder Set Up Operator Name Role Phone Deedee Low Primary Care Provider [phone] Encounter Details Date Type Department Care Team (Latest Contact Info) Description 01/02/2022 Travel Social History Tobacco Use Types Packs/Day [...] st Contact Info) Description 04/15/2024 1:00 PM FRONT END DEVELOPER DESIGNER Office Visit [facility] Multispecialty Care - [address], [address] [place] [address] Presley Hernandez MD 3 [place] [address] 04/30/2024 10:40 AM FRONT END DEVELOPER DESIGNER Office Visit [facility] Mult[facility]ty Care - [address], [address] [place] [address] Presley Hernandez MD [address] [place] [address] documented as of this encounter Visit Diagnoses Not on filedocumented in this encounter Care Teams Centerless Grinder Set Up Operator Relationship Specialty Start Date End Date Deedee Low PA [address] [place] [address] PCP - General PHYSICIAN PRODUCER ARBORIST MANAGER 07/22/20 documented as of this encounter
--- OUTSIDE RECORDS SUMMARY | 2024-02-24 17:01 | XMS_ITS | Encounter Summary ---
Author Organization [facility] Address [address] [place] [address]. [place], [place] [address] [place] [address] Care Team Providers Care Builder Beam Name Role Phone Deedee Low Primary Care Provider [phone] Reason for Visit * Reason Comments Breathing Problem * Speech Therapy (Routine) - Closed Specialty Diagnoses / Procedures Referred By Angelita silva Referred To Contact SPEECH THERAPY / [facility] Speech Therapy Diagnoses Cough COUGH RO5 / MENOSSI / AETNA Procedures EVAL 60 MIN Deedee Low PA [address] [place] [address] Phone: tel: fax: Yana Mason, [place] [address] Phone: tel: fax: Referral ID Status Reason Start Date Expiration Date Visits Re quested Visits Authorized [id number] Closed 07/25/2020 07/26/2021 10 10 Encounter Details Date Type Department Care Team (Latest Contact Info) Description 07/29/2020 8:00 AM CDT - 07/29/2020 11:59 PM CDT Hospital Encounter [facility] Outpatient [place] [address] Deedee Low PA [address] [place] [address] Y[place] [address] Breathing Problem Discharge Disposition: Home or Self Care (Routine Discharge) Social History Tobacco Use Types Packs/Day Years Used Date Smoking Tobacco: Never Assessed Comments Unknown Sex and Gender Information Value Date Recorded Sex Assigned at Not on file Legal Sex Female 2:06 PM CDT Gender Identity Not on file Sexual Orientation Not on file COVID-19 Exposure Response Date Recorded In the last month, have you been in contact with someone who was confirmed or suspected to have Coronavirus / COVID-19? No / Unsure 07/29/2020 8:13 AM CDT documented as of this encounter Medications at Time of Discharge insulin detemir (LEVEMIR FLEXTOUCH) 100 UNIT/ML flextouch PEN Levemir FlexTouch U-100 Insulin 100 unit/mL (3 mL) subcutaneous pen INJECT 50 UNITS UNDER THE SKIN NIGHTLY 06/21/2020 documented as of this encounter Progress Notes * JOBY Damico - 07/29/2020 8:00 AM CDT Speech Therapy Daily Treatment Note Patient Name: Alannah Date of report: July 29, 2020 : 07/29/2020 Age: 40-year-old Diagnosis: SNOMED CT(R) 1. Vocal cord dysfunction VOCAL CORD DYSFUNCTION Physician: DELMER BELL Therapist: JOBY DAMICO TIME IN: 08 TIME OUT: 0845 Total Treatment Time: 30 min Visit 2 of 8 PPE Worn During Session: Therapist wore medical grade mask during the session. Patient wore mask during the session. Subjective: Patient was seen in the clinic for ST treatment to address VCD. Patient reported that she has been practicing breathing relaxation exercises, but continues to have difficulty performing them independently. Patient presents with a hoarse voice quality and persistent cough is noted. Pain: Patient reports a sore throat rated 3/10 on pain scale. Objective: After a review, patient demonstrated breathing relaxation exercises at rest independently in the seated and standing positions. She required verbal cueing to perform exercises with movement. Movementtoday consisted of walking on a flat surface. Patient presented with decreased exhalation cycle with movement. This improved with verbal cueing by the therapist given during the exhalation cycle. Patient reported that she did not experience improved symptoms with breathing relaxation exercises. Education: Therapist provided education on ways to incorporate breathing relaxation exercises into activities and overall plan of care. Patient expressed understanding and agreement. Clinical Assessment: Patient appears to understand breathing relaxation exercises, but symptoms are not improving at this time. Recommendations/Plan: Plan to continue plan of care and contact referring provider after next session if symptoms have not improve. JOBY DAMICO 07/29/2020 documented in this encounter Plan of Treatment Upcoming Encounters Date Type Department Care Team (Late st Contact Info) Description 04/15/2024 1:00 PM SOFTWARE DEVELOPMENT PROJECT MANAGER Office Visit [facility] Care - [address], [address] [place] [phone] Presley Hernandez MD [address] [place] [address] 04/30/2024 10:40 AM SOFTWARE DEVELOPMENT PROJECT MANAGER [facility] [address], [address] [place] [address] Presley Hernandez MD [address] [place] [address] documented as of this encounter Visit Diagnoses Diagnosis Vocal cord dysfunction- Primary Other diseases of vocal cords documented in this encounter Care Teams Builder Beam Relationship Specialty Start Date End Date Deedee Low PA [address] [facility] [address] [place] [address] PCP - General PHYSICIAN BARBER TOOL SHARPENER 07/22/20 documented as of this encounter
--- OUTSIDE RECORDS SUMMARY | 2024-02-24 17:01 | XMS_ITS | Encounter Summary ---
Author Organization [facility] Address [address] [place] [address]. [place], [place] [phone] [place] [address] Care Team Providers Care Poacher Wringer Operator Name Role Phone Jennifermary Deedee DELMER Primary Care Provider [phone] Encounter Details Date Type Department Care Team (Latest Contact Info) Description 07/25/2020 Travel Social History Tobacco Use Types Packs/Day [...] have Coronavirus / COVID-19? No / Unsure 07/25/2020 12:48 PM CDT documented as of this encounter Plan of Treatment Upcoming Encounters Date Type Department Care Team (Late st Contact Info) Description 04/15/2024 1:00 PM FLAGMAN [facility] 3 [facility], [address] [place] [phone] Presley Hernandez MD 3 [place] [address] 04/30/2024 10:40 AM FLAGMAN [facility] [address] [facility], [address] [place] [phone] Presley Hernandez MD 3 [place] [address] documented as of this encounter Visit Diagnoses Not on filedocumented in this encounter Care Teams Poacher Wringer Operator Relationship Specialty Start Date End Date Deedee Low PA [address] [place] [address] PCP - General PHYSICIAN AIR TRAFFIC SYSTEMS TECHNICIAN 07/22/20 documented as of this encounter
--- OUTSIDE RECORDS SUMMARY | 2024-02-24 17:01 | XMS_ITS | Encounter Summary ---
Author Organization [facility] Address [address] [place] [address]. [place], [place] [id number] [place] [address] Care Team Providers Care Admitting Coordinator Name Role Phone Deedee Snatana Primary Care Provider [phone] Reason for Visit * Reason Comments Hypoglycemia Encounter Details Date Type Department Care Team (Late st Contact Info) Description 06/13/2021 7:43 PM CDT - 06/13/2021 8:38 PM CDT Emergency [facility] Emergency Room [address] [place] [address] Brandyn Nunez MD [address] [place], [place] [id number] Hypoglycemia Discharge Disposition: Home or Self Care (Routine Discharge) Social History Tobacco Use Types Packs/Day Years Used Date Smoking Tobacco: Never Assessed Comments No Sex and Gender Information Value Date Recorded Sex Assigned at Not on file Legal Sex Female 2:06 PM CDT Gender Identity Not on file Sexual Orientation Not on file COVID-19 Exposure Response Date Recorded In the last 10 days, have yo u been in contact with someone who was confirmed or suspected to have Coronavirus/COVID-19? No / Unsure 06/13/2021 7:36 PM CDT documented as of this encounter Last Filed Vital Signs Vital Sign Reading Time Taken Comments Blood Pressure 174/106 06/13/2021 7:46 PM CDT Pulse 96 06/13/2021 8:38 PM CDT Temperature 36.3 ??C (97.4 ??F) 06/13/2021 7:46 PM CD T Respiratory Rate 20 06/13/2021 7:46 PM CDT Oxygen Saturation 97% 06/13/2021 7:46 PM CDT Inhaled Oxygen Concentration - - Weight 95.7 kg (211 lb) 06/13/2021 7:46 PM CDT Height 162.6 cm (5' 4 ) 06/13/2021 7:46 PM CDT Body Mass Index 36.22 06/13/2021 7:46 PM CDT documented in this encounter Discharge Instructions * Discharge Instructions* Brandyn Nunez MD - 06/13/2021 8:11 PM CDT Continue all present medication as prescribed. Take and record your blood sugar. Fluids. Diabetic diet. Follow-up with both your primary care provider Deedee santana and your paper inspector Dr. Mojica in next 3 to 5 days. Call both their offices in the a.m. for appointments. Return to emergency department for any problems or concerns. documented in this encounter Medications at Time [...] mg total) by mouth nightly at bedtime. buPROPion SR 100 MG 12 hr tablet Take 100 mg by mouth 2 (two) times daily. 2 carBAMazepine 100 MG chewable tablet Chew 100 mg by mouth 3 (three) times daily. 2 insulin detemir (LEVEMIR FLEXTOUCH) 100 UNIT/ML flextouch PEN Levemir FlexTouch U-100 Insulin 100 unit/mL (3 mL) subcutaneous pen INJECT 50 UNITS UNDER THE SKIN NIGHTLY 06/21/2020 2 Insulin Disposable Pump (OMNIPOD DASH PODS, GEN 4[facility] 04/12[facility]21 2 ketorolac 0.4 % ophthalmic solution 1 drop 4 (four) times daily. 2 lamoTRIgine (LAMICTAL) 100 MG tablet Take 100 mg by mouth daily. 05/29/2021 2 ondansetron 8 MG tablet Take by mouth every 8 (eight) hours as needed for Nausea. 3 pantoprazole EC 40 MG tablet Take 40 mg by mouth 2 (two) times a day. 2 propranolol 40 MG tablet Take 40 mg by mouth daily. 2 rizatriptan 10 MG tablet Take 10 mg by mouth as needed for Migraine. May repeat in 2 hours if needed 2 topiramate 200 MG tablet Take 2 tablets by mouth daily. 2 ziprasidone 20 MG capsule Take 60 mg by mouth daily. 2 documented as of this encounter ED Notes * Genoveva Castillo RN - 06/13/2021 8:37 PM CDT Discharge discussed with patient. Understanding of follow up care and medications. * Brandyn Nunez MD - 06/13/2021 8:11 PM CDT [facility] Emergency Department Note Chief Complaint Chief Complaint Patient presents with ??? Hypoglycemia History of Present Illness 41-year-old white female BMI of 36.22 presents emergency department with her blood sugar meter reading low. Her Dexcom has been reading in the 40s since approximately 2:00 today. She felt diaphoresisx1. No nausea vomit diarrhea constipation. No fevers or chills. No chest pain palpitation. No shortness breath or cough. She was unable to use her normal glucometer due to batteries being low. Blood sugar checked here was 75. Patient primary care provider is Deedee Santana. [facility] Miller is in [place] [facility] it is Dr. Mojica. Patient has no known drug allergies. Medications include albuterol bupropion cetirizine diazepam diphenhydramine insulin lamotrigine Singulair Zofran pantoprazole propranolol.. Patient did eat 75 g of carbohydrates this afternoon. Previous surgeries tonsillectomy and myringotomy tubes. Patient is non-smoker. Rarely drinks alcohol. Patient is single. Patientis employed at [employer]. Family history hypertension diabetes heart disease COPD. Patient is COVID immunized Medical History ALLERGIES: Not on File MEDICATIONS: Prior to Admission medications Medication Sig Start Date End Date Taking? Authorizing Provider albuterol sulfate HFA (PROAIR HFA) 108 (90 Base) MCG/ACT inhaler Inhale 2 puffs into the lungs every 6 (six) hours as needed for Wheezing. Yes Doc Abstract buPROPion SR 100 MG 12 hr tablet Take 100 mg by mouth 2 (two) times daily. Yes Doc Abstract carBAMazepine 100 MG chewable tablet Chew 100 mg by mouth 3 (three) times daily. Yes Doc Abstract cetirizine 10 MG tablet Take 10 mg by mouth daily. Yes Doc Abstract diazePAM 5 MG tablet Take 5 mg by mouth every 8 (eight) hours as needed for Anxiety. Yes Doc Abstract diphenhydrAMINE 25 MG capsule Take 25 mg by mouth every 6 (six) hours as needed for Itching. Yes Doc Abstract doxycycline hyclate 100 MG tablet Take 1 tablet by mouth daily. on an empty stomach Yes Doc Abstract insulin aspart 100 UNIT/ML injection (PEN) Inject into the skin 3 (three) times daily before meals.Yes Doc Abstract insulin aspart 100 UNIT/ML injection (VIAL) Inject into the skin 3 (three) times daily before meals. Yes Doc Abstract ketorolac 0.4 % ophthalmic solution 1 drop 4 (four) times daily. Yes Doc Abstract lamoTRIgine 100 MG tablet Take 100 mg by mouth 2 (two) times daily. Yes Doc Abstract montelukast 10 MG tablet Take 10 mg by mouth nightly at bedtime. Yes Doc Abstract ondansetron 8 MG tablet Take by mouth every 8 (eight) hours as needed for Nausea. Yes Doc Abstract pantoprazole EC 40 MG tablet Take 40 mg by mouth 2 (two) times a day. Yes Doc Abstract propranolol 40 MG tablet Take 40 mg by mouth daily. Yes Doc Abstract rizatriptan 10 MG tablet Take 10 mg by mouth as needed for Migraine. May repeat in 2 hours if needed Yes Doc Abstract topiramate 200 MG tablet Take 2 tablets by mouth daily. Yes Doc Abstract ziprasidone 20 MG capsule Take 60 mg by mouth daily. Yes Doc Abstract PAST MEDICAL HISTORY: No past medical history on file. PAST SURGICAL HISTORY: No past surgical history on file. FAMILY HISTORY: No family history on file. SOCIAL HISTORY: Social History Tobacco Use ??? Smoking status: Not on file Substance Use Topics ??? Alcohol use: Not on file ??? Drug use: Not on file Review of Systems Review of Systems Constitutional: Negative for chills and fever. Dexcom reading blood glucose low HENT: Negative for congestion, rhinorrhea and sore throat. Eyes: Negative for photophobia. Respiratory: Negative for cough, shortness of breath and wheezing. Cardiovascular: Negative for chest pain, palpitations and leg swelling. Gastrointestinal: Negative for abdominal pain, constipation, diarrhea, nausea and vomiting. Endocrine: Negative for polydipsia and polyuria. Genitourinary: Negative for dysuria and frequency. Musculoskeletal: Negative for back pain, neck pain and neck stiffness. Skin: Negative for pallor and rash. Allergic/Immunologic: Negative for immunocompromised state. Neurological: Negative for syncope, light-headedness, numbness and headaches. Hematological: Does not bruise/bleed easily. Psychiatric/Behavioral: Negative for suicidal ideas. Physical Exam Filed Vitals: 06/13/21194506/13/212037 BP: (!) 174/106 Pulse: 96 Resp: 20 Temp: 97.4 ??F (36.3 ??C) SpO2: 97% Weight: 95.7 kg (211 lb) Height: 5' 4 (1.626 m) Physical Exam Vitals and nursing note reviewed. Constitutional: General: She is not in acute distress. Appearance: She is well-developed. HENT: Head: Normocephalic and atraumatic. Right Ear: External ear normal. Left Ear: External ear normal. Eyes: General: No scleral icterus. Conjunctiva/sclera: Conjunctivae normal. Pupils: Pupils are equal, round, and reactive to light. Neck: Vascular: No JVD. Cardiovascular: Rate and Rhythm: Normal rate and regular rhythm. Heart sounds: Normal heart sounds. No murmur heard. No friction rub. No gallop. Pulmonary: Effort: Pulmonary effort is normal. No respiratory distress. Breath sounds: Normal breath sounds. No stridor. No wheezing or rales. Chest: Chest wall: No tenderness. Abdominal: General: Bowel sounds are normal. There is no distension. Palpations: Abdomen is soft. There is no mass. Tenderness: There is no abdominal tenderness. There is no guarding or rebound. Musculoskeletal: General: No deformity. Normal range of motion. Cervical back: Normal range of motion and neck supple. Skin: General: Skin is warm and dry. Findings: No rash. Neurological: Mental Status: She is alert and oriented to person, place, and time. Psychiatric: Behavior: Behavior normal. Thought Content: Thought content normal. Judgment: Judgment normal. Diagnostic Studies / Procedures ELECTROCARDIOGRAMS: No results found for this visit on 06/13/21. LABORATORY STUDIES: Results for orders placed or performed during the hospital encounter of 06/13/21 Bedside Blood Glucose Result Value Ref Range GLUCOSE WHOLE BLOOD 75 70 - 100 mg/dL POCT glucose Result Value Ref Range GLUCOSE POC 75 70 - 110 mg/dL IMAGING STUDIES No orders to display ED Course / Medical Decision Making MDM Number of Diagnoses or Management Options Amount and/or Complexity of Data Reviewed Clinical lab tests: reviewed and ordered Risk of Complications, Morbidity, and/or Mortality Presenting problems: moderate Diagnostic procedures: moderate Management options: moderate ED Course as of Jun 13 2301 Tue Jun 13, [id number] Discussed all results with patient and patient's family. Offered to draw blood patient prefersnot to. Will check blood sugar at home. And follow-up with her paper inspector and her primary careprovider later this week. [CA] ED Course User Index [CA] Brandyn Nunez MD Medications - No data to display Clinical Impression History of hypoglycemia (Primary) Discharge Medication List as of 06/13/2021 8:33 PM Disposition: Discharge Voice recognition software used Follow-Up: DELMER Ardon [address] [facility] [address] In 3 days Brandyn Nunez MD 06/13/2021 Brandyn Nunez MD 06/13/212301 * Ulises Ty RN - 06/13/2021 7:43 PM CDT Pt here for hypoglycemia. Pt states that her dexcom has been reading around 40 since 1400 today. Ptstates that she has had 75 grams of carbs since 1400. Stats that she a hx of non reactive hypoglycemic events. documented in this encounter Plan of Treatment Upcoming Encounters Date Type Department Care Team (Late st Contact Info) Description 04/15/2024 1:00 PM LOAN CLOSER Office Visit [facility] - [address], [address] [phone] Presley Hernandez MD [address] [place] [address] 04/30/2024 10:40 AM LOAN CLOSER Office Visit [facility] - [address], [address] [place] [id number] Presley Hernandez MD [address] [place] [address] documented as of this encounter Procedures Procedure Name Priority Date/Time Associated Diagnosis Comments POCT BEDSIDE BLOOD GLUCOSE STAT 06/13/2021 7:54 PM CDT POCT GLUCOSE - PELAEZ DOCKED DEVICE Routine 06/13/2021 7:50 PM CDT documented in this encounter Results * Bedside Blood Glucose (06/13/2021 7:54 PM CDT) GLUCOSE WHOLE BLOOD 75 70 - 100 mg/dL us Brandyn Nunez MD NURSING TREATMENT ORDERABLES - ONCE OR INTERVALS Final Result * POCT glucose (06/13/2021 7:50 PM CDT) GLUCOSE POC 75 70 - 110 mg/dL 06/13/2021 7:51 PM CDT [facility] 06/13/2021 7:50 PM CDT Attending Physician Emergency MD POCT ORDERABLES - DEVICE Final Result Performing Organization Address City/State/[facility] Co de Phone Number [facility] [address] [address] [place] [address], [place] [phone] documented in this encounter Visit Diagnoses Diagnosis History of hypoglycemia- Primary Personal history of other endocrine, metabolic, and immunity disorders documented in this encounter Care Teams Admitting Coordinator Relationship Specialty Start Date End Date Deedee Santana PA [address] [place] [address] PCP - General PHYSICIAN PRODUCT CONSULTANT 07/22/20 documented as of this encounter
--- OUTSIDE RECORDS SUMMARY | 2024-02-24 17:01 | XMS_ITS | Encounter Summary ---
Author Organization [facility] Address [address] [place] [address]. [place], [place] [id number] [place] [address] Care Team Providers Care Showplace Manager Name Role Phone Jennifermary Deedee DELMER Primary Care Provider [phone] Encounter Details Date Type Department Care Team (Latest Contact Info) Description 08/10/2021 Scan HEALTH INFO SRVCS Scanned, Documents Social [...] suspected to have Coronavirus/COVID-19? No / Unsure 08/08/2021 8:02 AM CDT documented as of this encounter Plan of Treatment Upcoming Encounters Date Type Department Care Team (Late st Contact Info) Description 04/15/2024 1:00 PM LIMEHOUSE WORKER Office Visit [facility] - [address], [address] [place] [address] Presley Hernandez MD [address] [place] [address] 04/30/2024 10:40 AM LIMEHOUSE WORKER Office Visit [facility] - [facility], [address] [place] [address] Presley Hernandez MD [address] [place] [address] documented as of this encounter Visit Diagnoses Not on filedocumented in this encounter Care Teams Showplace Manager Relationship Specialty Start Date End Date Deedee Low PA [address] [place] [address] PCP - General PHYSICIAN ACADEMIC DIRECTOR 07/22/20 documented as of this encounter
--- OUTSIDE RECORDS SUMMARY | 2024-02-24 17:01 | XMS_ITS | Encounter Summary ---
Author Organization [facility] Address [address] [place] [address]. [place], [place] [id number] [place] [id number] Care Team Providers Care Pay Per Click Strategist Name Role Phone Deedee Low Primary Care Provider [phone] Reason for Referral * Imaging (Routine) - Closed Specialty Diagnoses / Procedures Referred By Angelita silva Referred To Contact Diagnoses MS (multiple sclerosis) ([facility]) Procedures IR LUMB PUNCTURE DIAGNOSTIC Presley Hernandez MD [address] [place] [address] Phone: tel: fax: [place] [address] Phone: tel: Referral ID Status Reason Start Date Expiration Date Visits Re quested Visits Authorized [id number] Closed 08/08/2021 09/07/2022 2 2 * Imaging (Routine) - Closed Specialty Diagnoses / Procedures Referred By Angelita silva Referred To Contact RADIOLOGY Diagnoses MS (multiple sclerosis) ([facility]) Procedures MRI BRAIN WWO CON Presley Hernandez MD [address] [place] [address] Phone: tel: fax: Referral ID Status Reason Start Date Expiration Date Visits Re quested Visits Authorized [id number] Closed 08/28/2021 02/24/2022 1 1 * Imaging (Routine) - Closed Specialty Diagnoses / Procedures Referred By Contac t Referred To Contact RADIOLOGY Diagnoses MS (multiple sclerosis) ([facility]) Procedures MRI BRAIN WWO CON Presley Hernandez MD [address] [place] [address] Phone: tel: fax: Referral ID Status Reason Start Date Expiration Date Visits Re quested Visits Authorized [id number] Closed 08/28/2021 02/24/2022 1 1 Reason for Visit * Reason Comments Establish Care Pt. C/o chronic migr aines * Consultation/Treatment (Routine) - Closed Specialty Diagnoses / Procedures Referred By Contac t Referred To Contact NEUROLOGY Diagnoses Migraine, unspecified, not intractable, without status migrainosus migraine Procedures migraine Deedee Low PA [address] [facility] [address] [place] [address] Phone: tel: fax: [facility] - [address], [address] [place] [phone] Phone: tel: Referral ID Status Reason Start Date Expiration Date Visits Re quested Visits Authorized [id number] Closed 05/03/2021 07/31/2022 99 99 Encounter Details Date Type Department Care Team (Latest Contact Info) Description 08/08/2021 8:00 AM CDT Office Visit [facility] Medical [facility] - [address], [address] [place] [address] Presley Hernandez MD [address] [place] [address] Establish Care (Pt. C/o chronic migraines) Social History Tobacco Use Types Packs/Day Years Used Date Smoking Tobacco: Former Cigarettes Smokeless Tobacco: Never Tobacco Cessation:Counseling Given: No Alcohol Use Standard Drinks/Week Comments Yes 0 [...] Sign Reading Time Taken Comments Blood Pressure 122/86 08/08/2021 8:07 AM CDT Pulse 99 08/08/2021 8:07 AM CDT Temperature 36.4 ??C (97.6 ??F) 08/08/2021 8:07 AM CD T Respiratory Rate 16 08/08/2021 8:07 AM CDT Oxygen Saturation 98% 08/08/2021 8:07 AM CDT Inhaled Oxygen Concentration - - Weight 97.5 kg (215 lb) 08/08/2021 8:07 AM CDT Height 162.6 cm (5' 4 ) 08/08/2021 8:07 AM CDT Body Mass Index 36.9 08/08/2021 8:07 AM CDT documented in this encounter Progress Notes * Presley Hernandez MD - 08/08/2021 8:00 AM CDT Chief Complaint: migraines HPI: With the pleasure of seeing Ms. Ruano in the clinic. She is here for multiple complaints. First she notes that she has history of migraines. Is been going on for many years. The gotten progressivelyworse. She has headaches more than 3 days a month, last more than 6 to 8 hours. She has been on propranolol, Topamax, Tegretol, without much benefit. Initially these medications were helping, now they have stopped helping and she has headaches almost daily. She has never been on Botox. She has not had recent MRI of the brain. Next she has trigeminal neuralgia. She has sharp shooting pain that goes down to her teeth on the left hemiface. She has been on lamotrigine as well as on Tegretol withoutmuch benefit. She has seen a dentist but there is no dental issue causing her symptoms. Next, she has history of spinal meningitis. She notes the headaches come with tinnitus at times and dizziness. She has not had a spinal tap recently. She is anxious about the spinal tap. She also has macular edema and features of optic neuropathy. She has seen neuro ophthalmology. She had MRI of the orbits which was normal. Infectious and nutritional work-up has been normal. She has further work-up pending with them. She has not had work-up done for MS recently. She has not had work-up done for neuromyelitis optica. She has also noticed hemibody weakness and numbness. She has gait unsteadiness and wobblin ess. Review of Systems Gen:?denies??recent fever Eyes:?denies??double vision ENT:?denies??epistaxis Pulm:?denies??shortness of breath Cardiac:??denies??Chest pain GI:??denies??lower abdominal pain Musc:?has??back pain Neuro: ??See HPI Current Outpatient Medications Medication Sig Dispense Refill ??? carBAMazepine 200 MG tablet Take 0.5 tablets (100 mg total) by mouth 3 (three) times daily. 90 tablet 6 ??? promethazine 6.25 MG/5ML syrup Take 10 [...] (two) times daily. 60 tablet 6 ??? albuterol sulfate HFA (PROAIR HFA) 108 (90 Base) MCG/ACT inhaler Inhale 2 puffs into the lungs every 6 (six) hours as needed for Wheezing. ??? buPROPion SR 100 MG 12 hr tablet Take 100 mg by mouth 2 (two) times daily. ??? carBAMazepine 100 MG chewable tablet Chew 100 mg by mouth 3 (three) times daily. ??? cetirizine 10 MG tablet Take 10 [...] by mouth 2 (two) times daily. ??? montelukast 10 MG tablet Take 10 mg by mouth nightly at bedtime. ??? ondansetron 8 MG tablet Take by mouth every 8 (eight) hours as needed for Nausea. ??? pantoprazole EC 40 MG tablet Take 40 mg by mouth 2 (two) times a day. ??? propranolol 40 MG tablet Take 40 mg by mouth daily. ??? rizatriptan 10 MG tablet Take 10 mg by mouth as needed for Migraine. May repeat in 2 hours if needed ??? topiramate 200 MG tablet Take 2 tablets by mouth daily. ??? ziprasidone 20 MG capsule Take 60 mg by mouth daily. No current facility-administered medications for this visit. Filed Vitals: 08/08/21 0807 BP: 122/86 Pulse: 99 Resp: 16 Temp: 97.6 ??F (36.4 ??C) TempSrc: Temporal SpO2: 98% Weight: 97.5 kg (215 lb) Height: 5' 4 (1.626 m) Past Medical History: Diagnosis Date ??? Anxiety disorder, unspecified ??? Depression ??? Diabetes mellitus (CMS/HCC) ??? [...] Topics ??? Alcohol use: Yes Comment: occasionally MENTAL STATUS: Patient was alert, awake and oriented x3, regards and follows commands. Normal language. CRANIAL NERVES: II: . Pupils were equal, round and reactive to light III, IV, : normal extraocular movements V: Normal jaw closure and opening. VII: face was symmetric. IX-X: palate elevates [...] and Plan: In summary Ms. Ruano has a complex neurological history. First she has chronic migraine. She has headaches more than 20 days a month, last more than 6 hours. She has been on Topamax, propranolol, Tegretol without much benefit. For chronic migraines, I will do Botox injections 155 units every 3 months for 12 months. For abortive therapy, I will do Nurtec 75 mg ODT. She will take 1 pill as needed at the onset of migraine. Since she has nausea and UTI can cause nausea, I have prescribed Ywfffpwzz75.5 mg syrup to be taken as needed with onset of migraine. She has been on Imitrex and Maxalt without much benefit, in addition she has cardiovascular and cerebrovascular risk factors. Triptans increase the risk of having stroke and heart attacks. [facility] not [facility] of [facility] effects andthus I have prescribed for abortive therapy. Next, she has refractory trigeminal neuralgia. She hasbeen on Tegretol and lamotrigine without much benefit. For this I will do Botox injections 15 unitsevery 3 months for 12 months. She also has optic neuropathy, weakness, hemibody numbness and trigemi nal neuralgia in the setting of her gastric bypass surgeries, normal infectious work-up, normal nutritional work-up. Rule out multiple sclerosis, I will do MRI brain with and without contrast. In addition, I will send NMO antibody and Mog antibodies as well. In addition, I will do a spinal tap and send for cell count, protein, glucose, MITESH levels, Lyme's testing, IgG index, oligoclonal bands. She will continue follow-up with neuro ophthalmology at [facility]. She will keep me posted on thefindings. She also has episodes of alteration of awareness. We will complete work-up by doing EEG. She is already on lamotrigine to prevent seizure-like activity in addition to Topamax and Tegretol. She is anxious about this testing. I have asked her to use Valium as needed to help with the anxiety as she is already on it. I have asked her to refrain from driving when she takes it and to have someone drive her for Botox injections. I will see her in 8 weeks for discussing results. I will see her in 6 weeks for Botox injection for migraine. I will do Botox injections for trigeminal neuralgia in 7 weeks. Time spent: 90 total minutes reviewing records, history that was separately obtained, performing the exam, providing education to the patient/caregiver, ordering medicine and documenting in the medical record. PRESLYE HERNANDEZ MD topamax 200mg BID CBZ 100MG TID PROPRNALOL 20MG BID Lamotrigine 100 BID Maxalt 10mg Phenergan dissolvable/tablet documented in this encounter Plan of Treatment Upcoming Encounters Date Type Department Care Team (Late st Contact Info) Description 04/15/2024 1:00 PM FINANCIAL INTERN Office Visit [facility] - [facility] [address] [facility], [address] [place] [id number] Presley Hernandez MD [address] [place] [address] 04/30/2024 10:40 AM FINANCIAL INTERN Office Visit [facility] - [facility] [address], [address] [place] [phone] Presley Hernandez MD [address] [place] [phone] documented as of this encounter Results * EEG awake or drowsy routine (10/26/2021 12:00 PM CDT) Narrative [facility] - 10/26/2021 12:00 PM CDT [...] Hernandez MD NEUROLOGY ORDERABLES Sarah l Result [facility] [address] [place] [address], * IR LUMB PUNCTURE DIAGNOSTIC (09/07/2021 10:06 [...] placed prone on the fluoroscopy table. On category planner fluoroscopy, there is a transitional vertebral body [...] placed prone on the fluoroscopy table. On category planner fluoroscopy,there is a transitional vertebral body at [...] Hernandez MD INTERVENTIONAL RADIOLOGY Final Result * MRI BRAIN WWO CON (09/04/2021 6:56 PM CDT) Anatomical Region Laterality Modality Head Magnetic Resonan ce 09/04/2021 7:38 PM CDT Impressions 09/04/2021 9:48 PM CDT IMPRESSION: 1. ??Normal appearance of the brain and internal auditory canals. 2. 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 Axial, coronal and sagittal T1 weighted fat saturated postcontrast, axial T2 3-D space, coronal T2, axial and coronal T1, as well as axial T1 vibe 3-D fat saturated postcontrast magnetic resonance images of the internal auditory canals were obtained before and after the administration of intravenous contrast, as described above. HISTORY: Right-sided facial pain, chronic migraine headaches, dizziness, tinnitus COMPARISON: MRI brain 07/03/2021 FINDINGS: No restricted diffusion to suggest an acute infarction. ??The alva- white matter differentiation appear normal. ??There is no abnormally enhancing intracranial parenchyma or mass. ??There is a 0.5 cm cyst within the pineal gland. ??The sellar, callosal, and craniovertebral junction regions appear within normal limits. There is no extra-axial fluid collection. ??The ventricles are normal in size. ??The basal cisterns appear normal. ??The proximal intracranial flow voids appear normal. ??There is a mucous retention cyst within the right maxillary sinus. ??Otherwise, the paranasal sinuses and mastoid air cells are well aerated. ??The orbital contents appear normal. The internal auditory canals, cochlea and semicircular canals have a normal appearance. ??There is no abnormally enhancement of the internal auditory canals, cochlea or semicircular canals. ??The facial nerves demonstrate normal enhancement. 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 Intervertebral disc height loss at C4-5. Procedure Note Ciaran Franco MD - 09/04/2021 EXAMINATION: MRI BRAIN WWO CON, MRI IACs WWO CON, 09/04/2021 7:39 PM TECHNIQUE: Axial and sagittal T1, axial T2, axial DWI, axial and sagittalT2 FLAIR, axial T2 GRE, as well as axial, coronal and sagittal T2 1weighted postcontrast magnetic resonance images of the brain were obtainedbefore and after the administration of 20 mL of Dotarem injected throughthe right antecubital fossa, without evidence of an adverse reaction. Axial, coronal and sagittal T1 weighted fat saturated postcontrast, axialT2 3-D space, coronal T2, axial and coronal T1, as well as axial T1 vibe3-D fat saturated postcontrast magnetic resonance images of the internalauditory canals were obtained before and after the administration ofintravenous contrast, as described above. HISTORY: Right-sided facial pain, chronic migraine headaches, dizziness,tinnitus COMPARISON: MRI brain 07/03/2021 FINDINGS: No restricted diffusion to suggest an acute infarction. Thegray-white matter differentiation appear normal. There is no abnormallyenhancing intracranial parenchyma or mass. There is a 0.5 cm cyst withinthe pineal gland. The sellar, callosal, and craniovertebral junctionregions appear within normal limits. There is no extra-axial fluid collection. The ventricles are normal insize. The basal cisterns appear normal. The proximal intracranial flowvoids appear normal. There is a mucous retention cyst within the rightmaxillary sinus. Otherwise, the paranasal sinuses and mastoid air cellsare well aerated. The orbital contents appear normal. The internal auditory canals, cochlea and semicircular canals have anormal appearance. There is no abnormally enhancement of the internalauditory canals, cochlea or semicircular canals. The facial nervesdemonstrate normal enhancement. Congenital incomplete segmentation of theC3 and C4 vertebral bodies. Intervertebral disc height loss at C4-5. IMPRESSION: 1. Normal appearance of the brain and internal auditory canals. 2. 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 ??Normal appearance of the brain and internal auditory canals. 2. 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 Axial, coronal and sagittal T1 weighted fat saturated postcontrast, axial T2 3-D space, coronal T2, axial and coronal T1, as well as axial T1 vibe 3-D fat saturated postcontrast magnetic resonance images of the internal auditory canals were obtained before and after the administration of intravenous contrast, as described above. HISTORY: Right-sided facial pain, chronic migraine headaches, dizziness, tinnitus COMPARISON: MRI brain 07/03/2021 FINDINGS: No restricted diffusion to suggest an acute infarction. ??The alva- white matter differentiation appear normal. ??There is no abnormally enhancing intracranial parenchyma or mass. ??There is a 0.5 cm cyst within the pineal gland. ??The sellar, callosal, and craniovertebral junction regions appear within normal limits. There is no extra-axial fluid collection. ??The ventricles are normal in size. ??The basal cisterns appear normal. ??The proximal intracranial flow voids appear normal. ??There is a mucous retention cyst within the right maxillary sinus. ??Otherwise, the paranasal sinuses and mastoid air cells are well aerated. ??The orbital contents appear normal. The internal auditory canals, cochlea and semicircular canals have a normal appearance. ??There is no abnormally enhancement of the internal auditory canals, cochlea or semicircular canals. ??The facial nerves demonstrate normal enhancement. 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 Intervertebral disc height loss at C4-5. Procedure Note Ciaran Franco MD - 09/04/2021 EXAMINATION: MRI BRAIN WWO CON, MRI IACs WWO CON, 09/04/2021 7:39 PM TECHNIQUE: Axial and sagittal T1, axial T2, axial DWI, axial and sagittalT2 FLAIR, axial T2 GRE, as well as axial, coronal and sagittal T2 1weighted postcontrast magnetic resonance images of the brain were obtainedbefore and after the administration of 20 mL of Dotarem injected throughthe right antecubital fossa, without evidence of an adverse reaction. Axial, coronal and sagittal T1 weighted fat saturated postcontrast, axialT2 3-D space, coronal T2, axial and coronal T1, as well as axial T1 vibe3-D fat saturated postcontrast magnetic resonance images of the internalauditory canals were obtained before and after the administration ofintravenous contrast, as described above. HISTORY: Right-sided facial pain, chronic migraine headaches, dizziness,tinnitus COMPARISON: MRI brain 07/03/2021 FINDINGS: No restricted diffusion to suggest an acute infarction. Thegray-white matter differentiation appear normal. There is no abnormallyenhancing intracranial parenchyma or mass. There is a 0.5 cm cyst withinthe pineal gland. The sellar, callosal, and craniovertebral junctionregions appear within normal limits. There is no extra-axial fluid collection. The ventricles are normal insize. The basal cisterns appear normal. The proximal intracranial flowvoids appear normal. There is a mucous retention cyst within the rightmaxillary sinus. Otherwise, the paranasal sinuses and mastoid air cellsare well aerated. The orbital contents appear normal. The internal auditory canals, cochlea and semicircular canals have anormal appearance. There is no abnormally enhancement of the internalauditory canals, cochlea or semicircular canals. The facial nervesdemonstrate normal enhancement. Congenital incomplete segmentation of theC3 and C4 vertebral bodies. Intervertebral disc height loss at C4-5. IMPRESSION: 1. Normal appearance of the brain and internal auditory canals. 2. 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 RANGE--- INTERPRETATION NEGATIVE This test did not detect abnormal levels of anti-AQP4 antibodies. TECHNICAL RESULTS Interpretive Result Table INTERPRETIVE RESULT: Negative TEST: anti-AQP4 TECHNICAL RESULT: <1.5 REFERENCE RANGE: Negative <3.0 U/ml, Positive >=3.0 U/ml COMMENTS Comments: This result does not exclude a diagnosis of Neuromyelitis Optica. Recommendations: Health care providers, please contact the [facility] Client Services Department at if you wish to speak with a clinical vmware consultant regarding this test result. Background information: NMO (neuromyelitis optica, Devic disease) is an immune-mediated chronic inflammatory disease that predominantly affects the optic nerve and spinal cord and presents with optic neuritis (ON) and myelitis (1,2). Limited forms of this disease, such as isolated ON, brainstem encephalitis and longitudinal extensive transverses myelitis (LETM), have been referred to as NMO spectrum disorders (NMOSD) (2). NMO was originally thought to be a variant of multiple sclerosis, however, now is recognized as a distinct disease (2). The presence of autoantibodies against aquaporin-4 (AQP4), sometimes referred to as AQP4-IgG or NMO IgG, in patient serum is associated with NMO (3,4). Patients seropositive for AQP4 antibodies present with poor visual outcome and longitudinally extensive spinal cord lesions (3,5). METHODS Detection of antibodies was performed by Enzyme Linked Immunosorbent Assay (GIOVANNI) methodology. Limitations of analysis: Although rare, false positive or false negative results may occur. All results should be interpreted in the context of clinical findings, relevant history, and other laboratory data. REFERENCES 1. Elizabeth Tidwell, et al. (2014) SEAN Neurol 71:276-83. (PMID: 39750868) 2. Toyin C, et al. (2014) J Neurol 261: 1-16. (PMID: 40013076) 3. Jemima T, et al. (2012) J Neuroophthalmol 32: 107-10. (PMID: 62718662) 4. AliciaLEIF, et al. (2014) Neurology 82: 474-81. (PMID: 09560304) 5. Min S, et al. (2008) Brain 131: 3072-80. (PMID: 45432992) Laboratory oversight provided by Amanda Charles M.D., Ph.D., CLIA license odom, [facility] (CLIA# [id number]) Testing performed at: [facility] [address] [place] [id number] Test performed by [facility] [facility] ? [address] ? [address] ? [place] [id number] ? [employer] Technician: Amanda Charles M.D., Ph.D. Test Reported by Joseph Mccann, [facility], [address] [place], [place] Car Arroyo M.D., Ph.D., Director of Laboratories , [facility] [id number] 08/08/2021 9:42 AM CDT Presley Hernandez MD LABORATORY Final Res ult [facility] [address] [place], [place] , [place] [phone] [facility] [address] [place] [id number], documented in this encounter Visit Diagnoses Diagnosis MS (multiple sclerosis) ([facility])- Primary Multiple sclerosis Migraine without aura, not intractable, without status migrainosus Alteration of awareness MS (multiple sclerosis) ([facility]) Multiple sclerosis Alteration of awareness documented in this encounter Care Teams Pay Per Click Strategist Relationship Specialty Start Date End Date Deedee Low PA [address] [place] [address] PCP - General PHYSICIAN ALL PURPOSE CLERK 07/22/20 documented as of this encounter
--- OUTSIDE RECORDS SUMMARY | 2024-02-24 17:01 | XMS_ITS | Encounter Summary ---
Author Organization [facility] Address [address] [place] [address]. [place], [place] [address] [place] [address] Care Team Providers Care Clinical Unit Coordinator Name Role Phone Jennifermary Deedee DELMER Primary Care Provider [phone] Encounter Details Date Type Department Care Team (Latest Contact Info) Description 08/17/2020 Travel Social History Tobacco Use Types Packs/Day [...] have Coronavirus / COVID-19? No / Unsure 08/17/2020 8:14 AM CDT documented as of this encounter Plan of Treatment Upcoming Encounters Date Type Department Care Team (Late st Contact Info) Description 04/15/2024 1:00 PM INCIDENT ENGINEER [facility] [address] [facility], [address] [place] [address] Presley Hernandez MD 3 [place] [address] 04/30/2024 10:40 AM INCIDENT ENGINEER [facility] [address] [facility], [address] [place] [address] Presley Hernandez MD 3 [place] [address] documented as of this encounter Visit Diagnoses Not on filedocumented in this encounter Care Teams Clinical Unit Coordinator Relationship Specialty Start Date End Date Deedee oLw PA [address] [place] [address] PCP - General PHYSICIAN R&D LAB TECHNICIAN 07/22/20 documented as of this encounter
--- OUTSIDE RECORDS SUMMARY | 2024-02-24 17:01 | XMS_ITS | Encounter Summary ---
Author Organization [facility] Address [address] [place] [address]. [place] [address] [place] [address] Care Team Providers Care Cardiovascular Operating Room Nurse Name Role Phone Jennifermary Deedee DOWELL Primary Care Provider [phone] Reason for Visit * Reason Onset Date Comments Preprocedure Call 08/15/2021 Encounter Details Date Type Department Care Team (Late st Contact Info) Description 08/15/2021 Pre-Procedure Call [facility] Interventional Radiology [place], [place] [id number] Cb Loaiza MD [facility] [place], [place] [address] Preprocedure Call Social History Tobacco Use Types Packs/Day [...] Sign Reading Time Taken Comments Blood Pressure - - Pulse - - Temperature - - Respiratory Rate - - Oxygen Saturation - - Inhaled Oxygen Concentration - - Weight 95.3 kg (210 lb) 08/15/2021 12:01 AM CDT Height 162.6 cm (5' 4 ) 08/15/2021 12:01 AM CDT Body Mass Index 36.05 08/15/2021 12:01 AM CDT documented in this encounter Plan of Treatment Upcoming Encounters Date Type Department Care Team (Late st Contact Info) Description 04/15/2024 1:00 PM AUDIT MACHINE OPERATOR Office Visit [facility] - [address], [address] [place] [address] Presley Hernandez MD [address] [place] [address] 04/30/2024 10:40 AM AUDIT MACHINE OPERATOR Office Visit [facility] - Health system [address] [facility], [address] [place] [address] Presley Hernandez MD [address] [place] [address] documented as of this encounter Visit Diagnoses Not on filedocumented in this encounter Care Teams Cardiovascular Operating Room Nurse Relationship Specialty Start Date End Date Deedee Low PA [address] [place] [address] PCP - General PHYSICIAN INTERNAL SALES ENGINEER 07/22/20 documented as of this encounter
--- OUTSIDE RECORDS SUMMARY | 2024-02-24 17:01 | XMS_ITS | Encounter Summary ---
Author Organization [facility] Address [address] [place] [address]. [place], [place] [address] [place] [address] Care Team Providers Care Working Foreman Name Role Phone Jennifermary Deedee DOWELL Primary Care Provider [phone] Encounter Details Date Type Department Care Team (Latest Contact Info) Description 08/31/2021 Travel Social History Tobacco Use Types Packs/Day [...] suspected to have Coronavirus/COVID-19? No / Unsure 08/31/2021 2:18 AM CDT documented as of this encounter Plan of Treatment Upcoming Encounters Date Type Department Care Team (Late st Contact Info) Description 04/15/2024 1:00 PM GEOCHEMISTRY TEACHER Office Visit [facility] Multispecialty Care - [facility] [address] [facility], [address] [place] [address] Presley Hernandez MD 3 [place] [address] 04/30/2024 10:40 AM GEOCHEMISTRY TEACHER Office Visit [facility]pecialty Care - [facility] [address] [facility], [address] [place] [address] Presley Hernandez MD 3 [place] [address] documented as of this encounter Visit Diagnoses Not on filedocumented in this encounter Care Teams Working Foreman Relationship Specialty Start Date End Date Deedee Low PA [address] [place] [address] PCP - General PHYSICIAN DATA COLLECTOR 07/22/20 documented as of this encounter
--- OUTSIDE RECORDS SUMMARY | 2024-02-24 17:01 | XMS_ITS | Encounter Summary ---
Author Organization [facility] Address [address] [place] [address]. [place], [place] [address] [place] [address] Care Team Providers Care Balance Wheel Motion Inspector Name Role Phone Jennifermary Deedee DOWELL Primary Care Provider [phone] Encounter Details Date Type Department Care Team (Late st Contact Info) Description 08/08/2021 Orders Only [facility] [place] [address] Presley Hernandez MD 3 [place] [address] Social History Tobacco Use Types Packs/Day Years [...] (Late Contact Info) Description 04/15/2024 1:00 PM SCRAPER TENDER Office Visit [facility] Medical Group Multispecialty Care - [facility] [address] [facility], [address] [place] [address] Presley Hernandez MD 3 [place] [address] 04/30/2024 10:40 AM SCRAPER TENDER Office Visit [facility] Medical Group Multispecialty Care - [facility] [address] [facility], [address] [place] [address] Presley Hernandez MD 3 [place] [address] documented as of this encounter Results * MYELIN OLIGODENDROCYTE GLYCOPROTEIN(MOG)ANTIBODY W/REFLEX TITER, SERUM (08/08/2021 9:42 AM CDT) [facility] MOG AB CBA S/P/B NEGATIVE NEGATIVE 08/13/19 9:47 PM CDT [employer] ANDREWANSHUL BAIRES Comment: This test was developed and its analytical performance characteristics have been determined by [facility]. It has not been cleared or approved by FDA. This assay has been validated pursuant to the CLIA regulations and is used for clinical purposes. Test performed by [facility] ? [address] [facility], ? [place] [address] ? Concentrator Operator: Blanca Tellez MD,PHD,SKYLER Test Reported by [facility], [facility], [address] [place] [address] Car Arroyo M.D., Ph.D., Director of Laboratories , [facility] [id number] 08/08/2021 9:42 AM CDT Presley Hernandez MD LABORATORY Final Res ult [facility] [address] [address], [place] [phone] documented in this encounter Visit Diagnoses Diagnosis MS (multiple sclerosis) (CMS/HCC [facility])- Primary Multiple sclerosis documented in this encounter Care Teams Balance Wheel Motion Inspector Relationship Specialty Start Date End Date Deedee Low PA [address] [place] [address] PCP - General PHYSICIAN GUARD MUSEUM 07/22/20 documented as of this encounter
--- OUTSIDE RECORDS SUMMARY | 2024-02-24 17:01 | XMS_ITS | Encounter Summary ---
Author Organization [facility] Address [address] [place] [address]. [place], [place] [address] [place] [address] Care Team Providers Care Environmental Restoration Planner Name Role Phone Jennifermary Deedee DELMER Primary Care Provider [phone] Encounter Details Date Type Department Care Team (Latest Contact Info) Description 07/29/2020 Travel Social History Tobacco Use Types Packs/Day [...] st Contact Info) Description 04/15/2024 1:00 PM VISUALLY IMPAIRED TEACHER [facility] [address] [facility], [address] [place] [address] Presley Hernandez MD 3 [place] [address] 04/30/2024 10:40 AM VISUALLY IMPAIRED TEACHER [facility] 3 [facility], [address] [place] [address] Presley Hernandez MD 3 [place] [address] documented as of this encounter Visit Diagnoses Not on filedocumented in this encounter Care Teams Environmental Restoration Planner Relationship Specialty Start Date End Date Deedee Low PA [address] [place] [address] PCP - General PHYSICIAN CNC LATHE PROGRAMMER 07/22/20 documented as of this encounter
--- OUTSIDE RECORDS SUMMARY | 2024-02-24 17:01 | XMS_ITS | Encounter Summary ---
Author Organization [facility] Address [address] [place] [address]. [place], [place] [address] [place] [address] Care Team Providers Care Glass Edger Name Role Phone Jennifermary Deedee DELMER Primary Care Provider [phone] Encounter Details Date Type Department Care Team (Latest Contact Info) Description 08/24/2020 Travel Social History Tobacco Use Types Packs/Day [...] have Coronavirus / COVID-19? No / Unsure 08/24/2020 8:00 AM CDT documented as of this encounter Plan of Treatment Upcoming Encounters Date Type Department Care Team (Late st Contact Info) Description 04/15/2024 1:00 PM FEDERAL JUDGE [facility] [address] [facility], [address] [place] [address] Presley Hernandez MD 3 [place] [address] 04/30/2024 10:40 AM FEDERAL JUDGE [facility] [address] [facility], [address] [place] [address] Presley Hernandez MD 3 [place] [address] documented as of this encounter Visit Diagnoses Not on filedocumented in this encounter Care Teams Glass Edger Relationship Specialty Start Date End Date Deedee Low PA [address] [place] [address] PCP - General PHYSICIAN ANODE WORKER 07/22/20 documented as of this encounter
--- OUTSIDE RECORDS SUMMARY | 2024-02-24 17:01 | XMS_ITS | Encounter Summary ---
Author Organization [facility] Address [address] [place] [address]. [place] [address] [place] [address] Care Team Providers Care Real Estate Attorney Name Role Phone Jennifermary Deedee DELMER Primary Care Provider [phone] Encounter Details Date Type Department Care Team (Latest Contact Info) Description 08/22/2021 [employer] Message Enc [facility] Medical Group Multispecialty Care - [address], [address] [place] [address] Presley Hernandez MD 3 [place] [address] Pre approval from insurance for upcoming appointments Social History Tobacco Use Types Packs/Day Years [...] Progress Notes * Presley Hernandez MD - 08/23/2021 9:32 AM CDT Jennifer Michelle- any updates on her botox? Jennifer Candida-any updates on her spinal tap scheduling? Jennifer Meraz-any updates on when we can schedule her MRIs ? documented in this encounter Plan of Treatment Upcoming Encounters Date Type Department Care Team (Late st Contact Info) Description 04/15/2024 1:00 PM CHRISTIAN SCIENCE HEALER Office Visit [facility] Care - [facility] 3 [facility], [address] [place] [address] Presley Hernandez MD 3 [place] [address] 04/30/2024 10:40 AM CHRISTIAN SCIENCE HEALER Office Visit [facility] Care - [facility] 3 [facility], [address] [place] [address] Presley Hernandez MD 3 [place] [address] documented as of this encounter Visit Diagnoses Not on filedocumented in this encounter Care Teams Real Estate Attorney Relationship Specialty Start Date End Date Deedee Low PA [address] [place] [address] PCP - General PHYSICIAN STEWARD/STEWARDESS SMOKE ROOM 07/22/20 documented as of this encounter
--- OUTSIDE RECORDS SUMMARY | 2024-02-24 17:01 | XMS_ITS | Encounter Summary ---
Author Organization [facility] Address [address] [place] [address]. [place], [place] [address] [place] [address] Care Team Providers Care Historical Site Guide Name Role Phone Deedee Low Primary Care Provider [phone] Reason for Referral * Imaging (Routine) - Closed Specialty Diagnoses / Procedures Referred By Angelita silva Referred To Contact RADIOLOGY Diagnoses MS (multiple sclerosis) ([facility]) Procedures MRI BRAIN WWO CON Presley Hernandez MD 3 [place] [address] Phone: tel: fax: Referral ID Status Reason Start Date Expiration Date Visits Re quested Visits Authorized [id number] Closed 08/28/2021 02/24/2022 1 1 * Imaging (Routine) - Closed Specialty Diagnoses / Procedures Referred By Angelita silva Referred To Contact RADIOLOGY Diagnoses MS (multiple sclerosis) ([facility]) Procedures MRI BRAIN WWO CON Presley Hernandez MD 3 [place] [address] Phone: tel: fax: Referral ID Status Reason Start Date Expiration Date Visits Re quested Visits Authorized [id number] Closed 08/28/2021 02/24/2022 1 1 Reason for Visit * Imaging (Routine) - Closed Specialty Diagnoses / Procedures Referred By Angelita t Referred To Contact RADIOLOGY Diagnoses MS (multiple sclerosis) ([facility]) Procedures MRI BRAIN WWO CON Presley Hernandez MD 3 [place] [address] Phone: tel: fax: Referral ID Status Reason Start Date Expiration Date Visits Re quested Visits Authorized [id number] Closed 08/28/2021 02/24/2022 1 1 Encounter Details Date Type Department Care Team (Latest Contact Info) Description 09/04/2021 4:38 PM CDT - 09/04/2021 11:59 PM CDT Hospital Encounter [facility] [place], [place] [id number] Presley Hernandez MD 3 [place], [place] [id number] Discharge Disposition: Home or Self Care (Routine [...] PM CDT documented as of this encounter Medications [...] nightly at bedtime. topiramate (TOPAMAX) 200 MG tabletIndications:M S (multiple sclerosis) (CMS/HCC HHS/HCC),Migraine without aura, not intractable, without status migrainosus Take 1 tablet (200 mg total) by mouth 2 (two) times daily. 60 tablet 6 2 ADVAIR DISKUS 250-50 MCG/ACT inhaler 2 07/19/19 23 atorvastatin 20 MG tablet 2 09/06/19 22 AUVI-Q 0.3 MG/0.3ML injection ADMINISTER 0.3 MG IN THE MUSCLE 1 TIME 2 09/06/19 22 benzonatate 200 MG capsule benzonatate 200 mg capsule 09/06/19 22 buPROPion 100 MG tablet 2 09/06/19 22 buPROPion SR 100 MG 12 hr tablet Take 100 mg by mouth 2 (two) times daily. 12/08/19 22 Canagliflozin-metFO RMIN HCl (INVOKAMET) 150-1000 MG Tab Invokamet 150 mg-1,000 mg tablet 09/06/19 22 carBAMazepine 100 MG chewable tablet Chew 100 mg by mouth 3 (three) times daily. 09/06/19 22 carBAMazepine 200 MG tabletIndications:M S (multiple sclerosis) (CMS/HCC HHS/HCC),Migraine without aura, not intractable, without status migrainosus Take 0.5 tablets (100 mg total) by mouth 3 (three) times daily. 90 tablet 6 2 12/28/19 23 clotrimazole-betame thasone cream clotrimazole-betame thasone 1 %-0.05 % topical cream 09/06/19 22 Dapagliflozin-metFO RMIN HCl ER (XIGDUO XR) 5-1000 MG TABLET SR 24 HR daily. 09/06/19 22 Exenatide ER (BYDUREON) 2 MG Pen-injector PEN Bydureon 2 mg/0.65 mL subcutaneous pen injector 09/06/19 22 famotidine 20 MG tablet famotidine 20 mg tablet TAKE 1 TABLET BY MOUTH TWICE A DAY 09/06/19 22 FARXIGA 10 MG Tab 2 09/06/19 22 fenofibrate 160 MG tablet Take 160 mg by mouth daily. 09/06/19 22 guaiFENesin-codeine 100-10 MG/5ML syrup Virtussin AC 10 mg-100 mg/5 mL oral liquid 09/06/19 22 insulin detemir (LEVEMIR FLEXTOUCH) 100 UNIT/ML flextouch PEN Levemir FlexTouch U-100 Insulin 100 unit/mL (3 mL) subcutaneous pen INJECT 50 UNITS UNDER THE SKIN NIGHTLY 1 09/06/19 22 Insulin Disposable Pump (OMNIPOD DASH PODS, GEN 4,) [facility] 2 09/06/19 22 ketorolac 0.4 % ophthalmic solution 1 drop 4 (four) times daily. 01/19/20 ketorolac 0.4 % ophthalmic solution Place 1 drop into both eyes 4 (four) times daily. 09/06/19 22 lamoTRIgine (LAMICTAL) 100 MG tablet Take 100 mg by mouth daily. 2 12/08/19 22 lamoTRIgine 25 MG tablet lamotrigine 25 mg tablet TAKE 1 TAB DAILY FOR 2 WEEKS, THEN 2 TABLETS DAILY FOR 2 WEEKS, THEN 4 TABLETS DAILY 09/06/19 22 levonorgestrel 20 MCG/DAY IUD 1 Device by Intrauterine route. 09/06/19 22 lisinopril 20 MG tablet Take 20 mg by mouth daily. 2 12/08/19 22 metoclopramide 10 MG tablet metoclopramide 10 mg tablet 09/06/19 22 Olopatadine HCl 0.6 % Solution olopatadine 0.6 % nasal spray 09/06/19 22 ondansetron 4 MG tablet ondansetron HCl 4 mg tablet 09/06/19 22 ondansetron 8 MG tablet Take by mouth every 8 (eight) hours as needed for Nausea. 07/12/19 23 oxyCODONE immediate release 5 MG immediate release tablet oxycodone 5 mg tablet 09/06/19 22 oxyCODONE-acetamino phen 5-325 MG tablet oxycodone-acetamino phen 5 mg-325 mg tablet 09/06/19 22 pantoprazole EC 40 MG tablet Take 40 mg by mouth 2 (two) times a day. 09/06/19 22 pantoprazole EC 40 MG tablet Take 40 mg by mouth every 12 (twelve) hours. 12/08/19 22 phentermine 37.5 MG tablet 2 09/06/19 22 predniSONE 20 MG tablet prednisone 20 mg tablet 09/06/19 22 promethazine 6.25 MG/5ML syrupIndications:MS (multiple sclerosis) ([facility]),Migraine without aura, not intractable, without status migrainosus Take 10 mLs (12.5 mg total) by mouth once as needed for Nausea. 120 mL 5 2 07/12/19 23 propranolol 20 MG tabletIndications:M S (multiple sclerosis) ([facility]),Migraine without aura, not intractable, without status migrainosus Take 1 tablet (20 mg total) by mouth 2 (two) times daily. 60 tablet 6 2 06/26/19 23 propranolol 40 MG tablet Take 40 mg by mouth daily. 09/06/19 22 Prucalopride Succinate (MOTEGRITY) 2 MG Tab Motegrity 2 mg tablet TAKE 1 TABLET BY MOUTH EVERY DAY 09/06/19 22 rimegepant (NURTEC) 75 MG disintegrating tabletIndications:M igraine without aura, not intractable, without status migrainosus Take 1 tablet (75 mg total) by mouth daily as needed for Migraine. 16 tablet 5 2 07/24/19 24 rizatriptan (MAXALT) 10 MG tabletIndications:M S (multiple sclerosis) ([facility]),Migraine without aura, not intractable, without status migrainosus Take 1 tablet (10 mg total) by mouth as needed for Migraine. May repeat in 2 hours if needed 16 tablet 5 2 07/24/19 24 rizatriptan 10 MG tablet Take 10 mg by mouth as needed for Migraine. May repeat in 2 hours if needed 09/06/19 sertraline 100 MG tablet sertraline 100 mg tablet TAKE 1 TABLET BY MOUTH EVERYDAY AT BEDTIME 09/06/19 topiramate 200 MG tablet Take 2 tablets by mouth daily. 09/06/19 22 triamcinolone 0.1 % ointment 2 09/06/19 trimethoprim-polymy aimee b ophthalmic solution polymyxin B sulfate 10,000 unit-trimethoprim 1 mg/mL eye drops 09/06/19 ziprasidone 20 MG capsule Take 60 mg by mouth daily. 12/08/19 documented as of this encounter Plan of Treatment Upcoming Encounters Date Type Department Care Team (Late st Contact Info) Description 04/15/2024 1:00 PM ON CALL PHARMACY TECHNICIAN [facility] - [address], [facility] [address] [place] [phone] Presley Hernandez MD [address] [place] [address] 04/30/2024 10:40 AM ON CALL PHARMACY TECHNICIAN [facility] - [address], [address] [place] [address] Presley Hernandez MD [address] [place] [address] documented as of this encounter Procedures Procedure Name Priority Date/Time Associated Diagnosis Comments MRI BRAIN WWO CON Routine 09/04/2021 6:5 6 PM CDT MS (multiple sclerosis) (CMS/HCC HHS/HCC) MRI BRAIN WWO CON Routine 09/04/2021 6:5 2 PM CDT MS (multiple sclerosis) (CMS/HCC HHS/HCC) documented in this encounter Results * MRI BRAIN WWO CON (09/04/2021 6:56 [...] encounter Visit Diagnoses Diagnosis MS (multiple sclerosis) ([facility]) Multiple sclerosis documented in this encounter Administered Medications Inactive Administered Medications - up to 3 most recent administrations Medication Order MAR Action Action Date Dose Rate Site gadoterate meglumine (DOTAREM) 10 MMOL/20ML injection 20 mL 20 mL, Intravenous, IMG once as needed, Contrast, 1 dose, Starting on 09/04/21 at 1818, Until Sat09/04/21 at 1819 Given 09/04/2021 6:19 PM CDT 20 mLs Right Arm documented in this encounter Care Teams Historical Site Guide Relationship Specialty Start Date End Date Deedee Low PA [address] [place] [address] PCP - General PHYSICIAN TUBING OILER 07/22/20 documented as of this encounter
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
--- OUTSIDE RECORDS SUMMARY | 2024-02-24 17:01 | XMS_ITS | Encounter Summary ---
Author Organization [facility] Address [address] [place] [address]. [place], [place] [address] [place] [address] Care Team Providers Care Therapeutic Strategy Lead Name Role Phone Jennifermary Deedee DELMER Primary Care Provider [phone] Encounter Details Date Type Department Care Team (Latest Contact Info) Description 08/05/2021 Travel Social History Tobacco Use Types Packs/Day [...] suspected to have Coronavirus/COVID-19? No / Unsure 08/05/2021 1:57 PM CDT documented as of this encounter Plan of Treatment Upcoming Encounters Date Type Department Care Team (Late st Contact Info) Description 04/15/2024 1:00 PM NUCLEAR MONITORING TECHNICIAN [facility] [address] [facility], [address] [place] [address] Presley Hernandez MD [address] [place] [address] 04/30/2024 10:40 AM NUCLEAR MONITORING TECHNICIAN [facility] [address] [facility], [address] [place] [address] Presley Hernandez MD [address] [place] [address] documented as of this encounter Visit Diagnoses Not on filedocumented in this encounter Care Teams Therapeutic Strategy Lead Relationship Specialty Start Date End Date Deedee Low PA [address] [place] [address] PCP - General PHYSICIAN AERIAL CROP DUSTER 07/22/20 documented as of this encounter
--- OUTSIDE RECORDS SUMMARY | 2024-02-24 17:01 | XMS_ITS | Encounter Summary ---
Author Organization [facility] Address [address] [place] [address]. [place] [address] [place] [address] Care Team Providers Care It Applications Analyst Name Role Phone Maranda Deedee DOWELL Primary Care Provider [phone] Encounter Details Date Type Department Care Team (Latest Contact Info) Description 08/08/2021 9:23 AM CDT - 08/08/2021 11:59 PM CDT Hospital Encounter [facility] [place] [address] Presley Hernandez MD 3 [place] [address] Discharge Disposition: Home or Self Care (Routine [...] 200 MG tabletIndications:M S (multiple sclerosis) ([facility] HHS/HCC),Migraine without aura, not intractable, without status migrainosus Take 1 tablet (200 mg total) by mouth 2 (two) times daily. 60 tablet 6 2 atorvastatin 20 MG tablet 2 09/06/19 22 buPROPion 100 MG tablet 2 09/06/19 22 buPROPion SR 100 MG 12 hr tablet Take 100 mg by mouth 2 (two) times daily. 12/08/19 22 carBAMazepine 100 MG chewable tablet Chew 100 mg by mouth 3 (three) times daily. 09/06/19 22 carBAMazepine 200 MG tabletIndications:M S (multiple sclerosis) ([facility] HHS/HCC),Migraine without aura, not intractable, without status migrainosus Take 0.5 tablets (100 mg total) by mouth 3 (three) times daily. 90 tablet 6 2 12/28/19 23 insulin detemir (LEVEMIR FLEXTOUCH) 100 UNIT/ML flextouch PEN Levemir FlexTouch U-100 Insulin 100 unit/mL (3 mL) subcutaneous pen INJECT 50 UNITS UNDER THE SKIN NIGHTLY 1 09/06/19 22 Insulin Disposable Pump (OMNIPOD DASH PODS, GEN 4,) Misc 2 09/06/19 22 ketorolac 0.4 % ophthalmic solution 1 drop 4 (four) times daily. 01/19/20 22 lamoTRIgine (LAMICTAL) 100 MG tablet Take 100 mg by mouth daily. 2 12/08/19 22 lisinopril 20 MG tablet Take 20 mg by mouth daily. 2 12/08/19 22 ondansetron 8 MG tablet Take by mouth every 8 (eight) hours as needed for Nausea. 07/12/19 23 pantoprazole EC 40 MG tablet Take 40 mg by mouth 2 (two) times a day. 09/06/19 22 phentermine 37.5 MG tablet 2 09/06/19 22 promethazine 6.25 MG/5ML syrupIndications:MS (multiple sclerosis) ([facility]),Migraine without aura, not intractable, without status migrainosus Take 10 mLs (12.5 mg total) by mouth once as needed for Nausea. 120 mL 5 2 07/12/19 23 propranolol 20 MG tabletIndications:M S (multiple sclerosis) ([facility]),Migraine without aura, not intractable, without status migrainosus Take 1 tablet (20 mg total) by mouth 2 (two) times daily. 60 tablet 6 2 06/26/19 23 propranolol 40 MG tablet Take 40 mg by mouth daily. 09/06/19 22 rimegepant (NURTEC) 75 MG disintegrating tabletIndications:M igraine without aura, not intractable, without status migrainosus Take 1 tablet (75 mg total) by mouth daily as needed for Migraine. 16 tablet 5 2 07/24/19 24 rizatriptan (MAXALT) 10 MG tabletIndications:M S (multiple sclerosis) ([facility] HHS/HCC),Migraine without aura, not intractable, without status migrainosus Take 1 tablet (10 mg total) by mouth as needed for Migraine. May repeat in 2 hours if needed 16 tablet 5 2 05/15/20 24 rizatriptan 10 MG tablet Take 10 mg by mouth as needed for Migraine. May repeat in 2 hours if needed 09/06/19 topiramate 200 MG tablet Take 2 tablets by mouth daily. 09/06/19 ziprasidone 20 MG capsule Take 60 mg by mouth daily. 12/08/19 documented as of this encounter Plan of Treatment Upcoming Encounters Date Type Department Care Team (Late st Contact Info) Description 04/15/2024 1:00 PM DIRECTOR OF CONSUMER AFFAIRS Office Visit [facility] - [address], [facility] [address] [place] [address] Presley Hernandez MD [address] [place] [address] 04/30/2024 10:40 AM DIRECTOR OF CONSUMER AFFAIRS Office Visit [facility] - [address], [facility] [address] [place] [address] Presley Hernandez MD [address] [place] [address] documented as of this encounter Procedures Procedure Name Priority Date/Time Associated Diagnosis Comments MYELIN OLIGODENDROCYTE GLYCOPROTEIN(MOG)ANTIBO DY W/REFLEX TITER, SERUM Routine 08/08/2021 9:42 AM CDT MS (multiple sclerosis) ([facility]) MISCELLANEOUS LAB TEST Routine 9:42 AM CDT MS (multiple sclerosis) ([facility]) documented in this encounter Results * MYELIN OLIGODENDROCYTE GLYCOPROTEIN(MOG)ANTIBODY W/REFLEX TITER, SERUM (08/08/2021 9:42 AM CDT) MOG AB CBA S/P/B NEGATIVE NEGATIVE 08/13/19 9:47 PM CDT [facility] Comment: This test was developed and its analytical performance characteristics have been determined by [facility]. It has not been cleared or approved by FDA. This assay has been validated pursuant to the CLIA regulations and is used for clinical purposes. Test performed by [facility] ? [address], ? [place] [address] ? Animal Care Taker: Blanca Tellez MD,PHD,SKYLER Test Reported by [facility], [facility], [address] [place] [address] Car Arroyo M.D., Ph.D., Director of Laboratories , [place] [id number] 08/08/2021 9:42 AM CDT us Presley Hernandez MD LABORATORY Final Res ult [address]people [address] [address], [place] [phone] * MISCELLANEOUS LAB TEST (08/08/2021 9:42 AM CDT) TEST NAME: AQUAPORIN 4(AQP4)AB (NMO IGG), GIOVANNI 08/08/2021 11:59 AM CDT [facility] LAB SPECIMEN TYPE SERUM/2ML 08/08/2021 11:59 AM CDT [facility] LAB TEST RESULT: Flexitest 1 08/14/2021 12:21 PM CDT [employer]people WIL BAIRES Comment: Flexitest 1 Aquaporin-4 (AQP4) [...] Recommendations: Health care providers, please contact the [employer] Client Services Department at if you wish to speak with a clinical sales operations consultant regarding this test result. Background information: [...] and other laboratory data. REFERENCES 1. Elizabeth Tidwell et al. (2014) SAEN Neurol 71:276-83. (PMID: 13433132) 2. Toyin C, et al. (2014) J Neurol 261: 1-16. (PMID: 98886545) 3. Jemima T, et al. (2012) J Neuroophthalmol 32: 107-10. (PMID: 95410864) 4. AliciaLEIF, et al. (2014) Neurology 82: 474-81. (PMID: 40475253) 5. Min S, et al. (2008) Brain 131: 3072-80. (PMID: 37883448) Laboratory oversight provided by Amanda Charles M.D., Ph.D., CLIA license odom, [employer] (CLIA# [id number]) Testing performed at: [employer] [address] [place] [address] Test performed by [employer] ? [address] [place] [address] ? [address]nd Floor ? [place] [address] ? Animal Care Taker: Amanda Charles M.D., Ph.D. Test Reported by Joseph Mccann, [email or web address], [address] [place] [address] Car Arroyo M.D., Ph.D., Director of Laboratories , CLIA [id number] 08/08/2021 9:42 AM CDT us Presley Hernandez MD LABORATORY Final Res ult [facility] [place] [id number] [place], [place] , [place] [phone] [facility] [address] [place] [address], documented in this encounter Visit Diagnoses Diagnosis MS (multiple sclerosis) ([facility]/HCC [facility]) Multiple sclerosis documented in this encounter Care Teams It Applications Analyst Relationship Specialty Start Date End Date Deedee Low PA [address] [facility] [address] [place] [address] PCP - General PHYSICIAN BRAKE LINING MAKER 07/22/20 documented as of this encounter
--- OUTSIDE RECORDS SUMMARY | 2024-02-24 17:01 | XMS_ITS | Encounter Summary ---
Author Organization [facility] Address [address] [place] [address]. [place], [place] [address] [place] [address] Care Team Providers Care Raised Printer Name Role Phone Deedee Low Primary Care Provider [phone] Reason for Visit * Reason Comments Voice Disorder * Speech Therapy (Routine) - Closed Specialty Diagnoses / Procedures Referred By Angelita silva Referred To Contact SPEECH THERAPY / [facility] Speech Therapy Diagnoses Cough COUGH RO5 / MENOSSI / AETNA Procedures EVAL 60 MIN Deedee Lwo PA [address] [place] [address] Phone: tel: fax: Yana Mason, BARREL [place] [address] Phone: tel: fax: Referral ID Status Reason Start Date Expiration Date Visits Re quested Visits Authorized [id number] Closed 07/25/2020 07/26/2021 10 10 Encounter Details Date Type Department Care Team (Latest Contact Info) Description 08/24/2020 8:00 AM CDT - 08/24/2020 11:59 PM CDT Hospital Encounter [facility] Outpatient [place] [address] Deedee Low PA [address] [place] [address] Yana Mason, BARREL [place] [address] Voice Disorder Discharge Disposition: Home or Self Care (Routine [...] encounter Progress Notes * JOBY Damico - 08/24/2020 8:00 AM CDT SPEECH THERAPY DISCHARGE NOTE Date: 08/24/20 Name: Alannah Ruano : 1980 Diagnosis: SNOMED CT(R) 1. Vocal cord dysfunction VOCAL CORD DYSFUNCTION PPE Worn During Session: Therapist wore medical grade mask during the session. Patient wore mask during the session. Subjective: Patient has attended 3 out of 3 for the reporting period of 07/25/20 to 08/24/20. Patientis compliant with home program. Patient/Family reports: that she understands her exercises and is able to perform them independently. However, the patient reports that exercises provided do not provide complete relief of her symptoms. The patient reported that she recently received allergy testing and that she will soon start treatment to alleviate allergy symptoms. Patient reported that she is allergic to many things found in the outside environment and that her VCD symptoms often start or worsen when she is outside. OBJECTIVE DATA: N/A Assessment: Remains the Same. Patient has participated well in therapy and has implemented vocal cord dysfunction exercises as recommended. However, frequent coughing persists. Patient's primary complaint is a frequent cough. This appears to be triggered by her allergies. Further treatment is not recommended at this time. Current Goal Status: 1.??MET-Patient will use breathing relaxation exercises to decrease symptoms of vocal cord dysfunction at rest with verbal cueing from the therapist 2.??MET-Patient will use breathing relaxation exercises to decrease symptoms of vocal cord dysfunction at rest independently 3.??MET-Patient will use breathing relaxation exercises to decrease symptoms of vocal cord dysfunction with movement for greater than 10 min across??2??consecutive sessions given verbal cueing by thetherapist 4. NOT TARGETED-Patient will use breathing relaxation exercises to decrease symptoms of vocal cord dysfunction with movement for greater than 10 min across??2??consecutive sessions independently 5. ??NOT MET-Patient will use breathing relaxation exercises to decrease symptoms of vocal cord dysfunction in the home environment??independently Family Contact: Patient has been informed of the progress and are in agreement with this new treatment plan. PLAN: Discontinue direct ST services at this time. Patient will continue HEP and continue to be followed by aerial sprayer. Physician Contact: A copy of this report will be sent to the referring physician. BARREL RAISER HELPER: JOBY DAMICO Date: 08/24/20?? Time: 9:23 AM I HAVE READ AND APPROVED THE TREATMENT PLAN FOR THIS PATIENT. Provider Signature: Date: Time: Patient Name: Alannah Ruano : 1980 documented in this encounter Plan of Treatment Upcoming Encounters Date Type Department Care Team (Late st Contact Info) Description 04/15/2024 1:00 PM CUSTOM SHOE DESIGNER AND MAKER Office Visit [facility] Medical Group Multispecialty Care - [facility] [address] [facility], [address] [place] [address] Presley Hernandez MD [address] [place] [address] 04/30/2024 10:40 AM CUSTOM SHOE DESIGNER AND MAKER Office Visit [facility] [address] [facility], [address] [place] [address] Presley Hernandez MD [address] [place] [address] documented as of this encounter Visit Diagnoses Diagnosis Vocal cord dysfunction- Primary Other diseases of vocal cords documented in this encounter Care Teams Raised Printer Relationship Specialty Start Date End Date Deedee Low PA [address] [place] [address] PCP - General PHYSICIAN OPTHALMIC TECH 07/22/20 documented as of this encounter
--- OUTSIDE RECORDS SUMMARY | 2024-02-24 17:01 | XMS_ITS | Encounter Summary ---
Author Organization [facility] Address [address] [place] [address]. [place], [place] [address] [place] [address] Care Team Providers Care Religious Education Director Name Role Phone JennifermaryDeedee Primary Care Provider Encounter Details Date Type Department Care Team (Latest Contact Info) Description 1980 Scan HEALTH INFO SR[facility]CS Scanned, Doc Med Group Social History Tobacco Use Types Packs/Day Years Used Date Smoking Tobacco: Never Assessed PHQ-2 Answer Date Recorded Patient Health Questionnaire-2 Score 0 10/10/2022 Comments Unknown Sex and Gender Information Value [...] st Contact Info) Description 04/15/2024 1:00 PM CATHEAD WORKER Office Visit [facility] Medical Group Multispecialty Care - [facility] [address] [facility], [address] [place] [address] Presley Hernandez MD 3 [place] [address] 04/30/2024 10:40 AM CATHEAD WORKER Office Visit [facility] Medical Group Multispecialty Care - [facility] [address] [facility], [address] [place] [address] Presley Hernandez MD 3 [place] [address] documented as of this encounter Visit Diagnoses Not on filedocumented in this encounter Care Teams Religious Education Director Relationship Specialty Start Date End Date Deedee Low PA [address] [place] [address] PCP - General PHYSICIAN BRUSH OR BROOM CUTTER 07/22/20 documented as of this encounter
--- OUTSIDE RECORDS SUMMARY | 2024-02-24 17:01 | XMS_ITS | Encounter Summary ---
Author Organization [facility] Address [address] [place] [address]. [place] [address] [place] [address] Care Team Providers Care Grain Picker Name Role Phone Jennifermary Deedee DELMER Primary Care Provider [phone] Reason for Visit * Reason Onset Date Comments Prior Authorization 08/23/2021 Encounter Details Date Type Department Care Team (Late st Contact Info) Description 08/23/2021 Telephone [facility] Multispecialty Care - [facility] [address] [facility], [address] [place] [id number] Presley Hernandez MD [address] [place] [address] Prior Authorization Social History Tobacco Use Types [...] st Contact Info) Description 04/15/2024 1:00 PM ROTARY DRYER OPERATOR [facility] [address], [address] [place] [phone] Presley Hernandez MD [address] [place] [address] 04/30/2024 10:40 AM ROTARY DRYER OPERATOR Office Visit [facility] Care - [address], [address] [place] [id number] Presley Hernandez MD [address] [place] [address] documented as of this encounter Visit Diagnoses Not on filedocumented in this encounter Care Teams Grain Picker Relationship Specialty Start Date End Date Deedee Low PA [address] [place] [address] PCP - General PHYSICIAN EMPLOYMENT PROGRAMS ANALYST 07/22/20 documented as of this encounter
--- OUTSIDE RECORDS SUMMARY | 2024-02-24 17:01 | XMS_ITS | Encounter Summary ---
Author Organization [facility] Address [address] [place] [address]. [place], [place] [id number] [place] [address] Care Team Providers Care Crew Attendant Name Role Phone Jennifermary Deedee DOWELL Primary Care Provider [phone] Encounter Details Date Type Department Care Team (Latest Contact Info) Description 08/08/2021 Travel Social History Tobacco Use Types Packs/Day [...] st Contact Info) Description 04/15/2024 1:00 PM INTERN Office Visit [facility] Medical [facility] Multispecialty Care - [facility] [address] [facility], [address] [place] [address] Presley Hernandez MD 3 [place] [address] 04/30/2024 10:40 AM INTERN Office Visit [facility] Medical Group Multispecialty Care - [facility] [address] [facility], [address] [place] [address] Presley Hernandez MD 3 [place] [address] documented as of this encounter Visit Diagnoses Not on filedocumented in this encounter Care Teams Crew Attendant Relationship Specialty Start Date End Date Deedee Low PA [address] [place] [address] PCP - General PHYSICIAN COMPOUND WORKER 07/22/20 documented as of this encounter
--- OUTSIDE RECORDS SUMMARY | 2024-02-24 17:01 | XMS_ITS | Encounter Summary ---
Author Organization [facility] Address [address] [place] [address]. [place], [place] [id number] [place] [address] Care Team Providers Care Air Conditioning Installer Name Role Phone Jennifermary Deedee DELMER Primary Care Provider Encounter Details Date Type Department Care Team (Latest Contact Info) Description 06/13/2021 Travel Social History Tobacco Use Types Packs/Day [...] Contact Info) Description 04/15/2024 1:00 PM BUDGET OFFICER [facility] [address] [facility], [address] [place] [phone] Presley Hernandez MD 3 [place] [address] 04/30/2024 10:40 AM BUDGET OFFICER [facility] [address] [facility], [address] [place] [phone] Presley Hernandez MD 3 [place] [address] documented as of this encounter Visit Diagnoses Not on filedocumented in this encounter Care Teams Air Conditioning Installer Relationship Specialty Start Date End Date Deedee Low PA [address] [place] [address] PCP - General PHYSICIAN SURGICAL ATTENDANT 07/22/20 documented as of this encounter
--- OUTSIDE RECORDS SUMMARY | 2024-02-24 17:09 | XMS_ITS | Clinical Summary ---
Author Organization [facility] Care Team Providers Care Field Application Engineer Name Role Phone Unavailable Primary Care Provider Unavailabl e Social History Tobacco Use Types Packs/Day Years Used Date Smoking Tobacco: Never Assessed Comments Unknown Sex and Gender Information Value Date Recorded Sex Assigned at Not on file Legal Sex Female 10:06 PM CDT Gender Identity Not on file Sexual Orientation Not on file Plan of Treatment Not on file
--- OUTSIDE RECORDS SUMMARY | 2024-02-24 17:10 | XMS_ITS | Encounter Summary ---
Author Organization [facility] Healthcare Address [address] [place] [address] Care Team Providers Care Manager Housekeeping Name Role Phone Deedee Low Primary Care Pr ovider Reason for Referral * MRI/CAT/PET Scan (Routine) - Denied Specialty Diagnoses / Procedures Referred By Contac t Referred To Contact Radiology Diagnoses Cervical radiculopathy Procedures MRI [place]ervical [place] [address] [place] [address] Phone: tel: fax: [address] [phone] Referral ID Status Reason Start Date Expiration Date Visits Re quested Visits Authorized [id number] Denied 01/07/2024 02/05/2025 1 0 * MRI/CAT/PET Scan (Routine) - Denied Specialty Diagnoses / Procedures Referred By Contac t Referred To Contact Radiology Diagnoses Lumbar radiculopathy Procedures MRI Lumbar [place] [id number] [place] [id number] Phone: tel: fax: [address] [phone] Referral ID Status Reason Start Date Expiration Date Visits Re quested Visits Authorized [id number] Denied 01/07/2024 02/05/2025 1 0 * Consultation (Routine) - Closed Specialty Diagnoses / Procedures Referred By Angelita silva Referred To Contact Pain Management Diagnoses [place] [address] [place] [address] Phone: tel: fax: Brendan Oconnell [place] [id number] [place] [address] Phone: tel: fax: Referral ID Status Reason Start Date Expiration Date V isits Requested Visits Authorized [id number] Closed Specialty Services Required 01/01/2024 01/30/2025 1 1 Question Answer Please select the performing region: [facility] [[id number]] Please select the performing department: [facility] [[id number]] To provider: BRENDAN OCONNELL [[id number]] # of visits: 1 Reason for Visit * Reason Comments Initial Consult Back Pain * Consultation (Routine) - Closed Specialty Diagnoses / Procedures Referred By Angelita silva Referred To Contact Pain Management Diagnoses Chronic [place] [address] [place] [address] Phone: tel: fax: Brendan Oconnell MD [id number] [place] [address] Phone: tel: fax: Referral ID Status Reason Start Date Expiration Date V isits Requested Visits Authorized [id number] Closed Specialty Services Required 01/01/2024 01/30/2025 1 1 Encounter Details Date Type Department Care Team (Latest Contact Info) Description 01/07/2024 8:25 AM CDT - 01/07/2024 11:59 PM CDT Hospital Encounter [facility] [address] [place] [address] [place] [id number] [facility] [address] [place] [address] Cervical radiculopathy (Primary Dx); Chronic pain syndrome; Lumbar radiculopathy; Myofascial pain Discharge Disposition: Discharge to home or self care Social History Tobacco Use Types Packs/Day Years Used Date Smoking Tobacco: Former Cigarettes Smokeless Tobacco: Never Comments:Randomly in late [employer] school Alcohol Use Standard Drinks/Week Comments Yes 0 (1 standard drink = 0.6 oz pur e alcohol) AUDIT-C Answer Date Recorded Q1: How often do you have a drink containing alcohol? Never 09/05/2023 Q2: How many drinks containi ng alcohol do you have on a typical day when you are drinking? Patient does not drink Q3: How often do you have si x or more drinks on one occasion? Never 09/05/2023 PHQ-2 Answer Date Recorded PHQ-2 Total Score (If total score is 3 or more points, staff should administer the PHQ-9) 0 09/05/2023 Personal Safety Answer Date Recorded Have you ever been in or are you currently in a harmful physical or emotional relationship or is someone making you feel afraid or unsafe? 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 Gender Identity Female 09/21/2019 9:02 PM CDT Sexual Orientation Not on file Occupation Industry Job Start Date Job End Date [address] [employer] Not on file Not on file Not on file documented as of this encounter Last Filed Vital Signs Vital Sign Reading Time Taken Comments Blood Pressure 129/89 01/07/2024 8:49 AM CDT Pulse 79 01/07/2024 8:49 AM CDT Temperature - - Respiratory Rate 18 01/07/2024 8:49 AM CDT Oxygen Saturation 100% 01/07/2024 8:49 AM CDT Inhaled Oxygen Concentration - - Weight 100.8 kg (222 lb 3.2 oz) 01/07/2024 8:49 AM CDT Height - - Body Mass Index 38.14 10/07/2023 11:30 AM CDT documented in this encounter Medications at Time of Discharge acetone, urine, test strip Test if BG are high, or in case of abdominal pain / nausea, vomiting, suspected DKA 20 strip 3 4 albuterol 2.5 mg /3 mL (0.083 %) nebulizer solution albuterol sulfate 2.5 mg/3 mL (0.083 %) solution for nebulization PRN albuterol ER (VOSPIRE ER) 8 mg 12 hr tablet every 12 (twelve) hours 6 albuterol HFA (ProAir HFA) 90 mcg/actuation inhaler albuterol HFA (ProAir HFA) 90 mcg/actuation inhaler Inhale 2 puffs every 4 (four) hours as needed for wheezing or shortness of breath 3 each 4 4 10/07/19 25 albuterol HFA (PROVENTIL HFA,VENTOLIN HFA,PROAIR HFA) 90 mcg/actuation inhaler Inhale 2 puffs every 6 (six) hours as needed for wheezing or shortness of breath (cough) 1 each 4 Amzeeq 4 % foam qd 3 atorvastatin (LIPITOR) 40 mg tablet 1 tablet (40 mg total) azelastine (ASTELIN) 137 mcg (0.1 %) nasal spray azelastine 137 mcg (0.1 %) nasal spray aerosol [place] 2 sprays every day by nasal route for 31 days. bevacizumab (AVASTIN) 25 mg/mL injection prn blood glucose diagnostic stripIndications:Ty pe 2 diabetes mellitus with hyperglycemia, with long-term current use of insulin ([facility]) Use to check bg 7 times daily 500 each 1 0 blood-glucose meter miscIndications:Typ e 2 diabetes mellitus with hyperglycemia, with long-term current use of insulin (HCC) Check bg daily 1 each 0 blood-glucose transmitter (Dexcom G6 Transmitter) device USE DIRECTED CHANGE EVERY 3 MONTHS 1 each 3 3 buPROPion (WELLBUTRIN) 100 mg tablet Take 1 tablet (100 mg total) by mouth 2 (two) times a day carBAMazepine (TEGretol) 200 mg tablet Take 0.5 tablets (100 mg total) by mouth 3 (three) times a day 0 cetirizine (ZyrTEC) 10 mg tablet Take 1 tablet (10 mg total) by mouth daily diazePAM (VALIUM) 5 mg tablet Take 1 tablet (5 mg total) by mouth every 8 (eight) hours as needed 1 diphenhydrAMINE (BENADRYL) 25 mg capsule Take 1 tablet/capsule (25 mg total) by mouth every 6 (six) hours as needed doxycycline 100 mg capsuleIndications: Prophylaxis, Medical,Skin/Soft Tissue Infection Take 1 tablet/capsule (100 mg total) by mouth daily 90 tablet/capsu le 3 4 05/01/19 25 EPINEPHrine 0.3 mg/0.3 mL auto-injection syringe eptinezumab-jjmr (Vyepti) Infuse 1 mL (100 mg total) into a venous catheter every 3 (three) months ergocalciferol (VITAMIN D) 50,000 unit capsule ergocalciferol (vitamin D2) 1,250 mcg (50,000 unit) capsule TAKE 1 CAPSULE BY MOUTH EVERY WEEK DIRECTED eszopiclone (LUNESTA) 1 mg tablet Take 1 tablet (1 mg total) by mouth daily fenofibrate (TRIGLIDE) 160 mg tablet Take 1 tablet (160 mg total) by mouth daily 4 fexofenadine (OCHOA) 180 mg tablet daily 6 fluticasone propion-salmeteroL (ADVAIR DISKUS) 250-50 mcg/dose diskus inhaler glucagon (Baqsimi) 3 mg/actuation spray,non-aerosol One spray into one nostril once as directed by provider for low blood sugar. 1 each 2 HumaLOG 100 unit/mL vial for injectionIndication s:Type 2 diabetes mellitus with hyperglycemia, with long-term current use of insulin (HCC) INJECT UP TO 100 UNITS DAILY VIA INSULIN PUMP 90 mL 1 4 hydroCHLOROthiazide (MICROZIDE) 12.5 mg capsule Take 1 capsule (12.5 mg total) by mouth daily 90 capsule 1 4 05/08/19 25 hydrOXYzine (ATARAX) 25 mg tablet Take 1 tablet (25 mg total) by mouth 1-2 nightly insulin pump cart,auto,BT-cntr (Omnipod 5 G6 Intro Kit, Gen 5,) cartridge Change pod q 3days 1 each 3 insulin pump cart,automated,BT (Omnipod 5 G6 Pods, Gen 5,) cartridge Change pod q 3 days 30 each 3 3 ketorolac (TORADOL) 10 mg tablet 4 ketorolac (TORADOL) 10 mg tablet Take 1 tablet (10 mg total) by mouth every 6 (six) hours as needed 4 lamoTRIgine (LaMICtal) 100 mg tablet Take 1 tablet (100 mg total) by mouth daily 2 linaCLOtide (Linzess) 72 mcg capsule daily losartan (COZAAR) 100 mg tablet Take 1 tablet (100 mg total) by mouth daily 4 montelukast (SINGULAIR) 10 mg tablet nightly 1 olopatadine 0.6 % spray,non-aerosol olopatadine 0.6 % nasal spray OneTouch Delica Plus Lancet 33 gauge misc 2 oxymetazoline (Rhofade) 1 % cream Rhofade 1 % topical cream pen needle, diabetic (BD Ultra-Fine Florina Pen Needle) 32 gauge x 5/32 needleIndications:T ype 2 diabetes mellitus with hyperglycemia, with long-term current use of insulin (HCC) USE DIRECTED up to 7 times daily 700 each 0 propranoloL (INDERAL) 20 mg tablet Take 1 tablet (20 mg total) by mouth 2 (two) times a day 0 rimegepant (NURTEC ODT) tablet,disintegrati ng Take 1 tablet (75 mg total) by mouth daily as needed 2 Soolantra 1 % cream APPLY A PEA SIZED AMOUNT TO RED AREAS ON THE FACE EVERY NIGHT AT BEDTIME 3 topiramate (TOPAMAX) 200 mg tablet 1 tablet (200 mg total) 2 (two) times a day 2 topiramate (TOPAMAX) 200 mg tablet daily traZODone (DESYREL) 50 mg tablet Take 1 tablet (50 mg total) by mouth nightly triamcinolone (KENALOG) 0.1 % ointment 2 (two) times a day 09/17/19 2 2 blood-glucose sensor (Dexcom G6 Sensor) device REPLACE SENSOR DIRECTED EVERY 10 DAYS 9 each 4 01/20/20 24 empagliflozin (JARDIANCE) 25 mg tablet Take 1 tablet (25 mg total) by mouth daily 90 tablet 3 3 02/18/20 24 ketorolac (TORADOL) 10 mg tablet 4 02/12/20 24 ondansetron ODT (ZOFRAN-ODT) 4 mg disintegrating tablet DISSOLVE 2 TABLETS IN MOUTH EVERY 8 HOURS NEEDED FOR NAUSEA FOR VOMITING 20 tablet 4 02/18/[address] (PROTONIX) 40 mg EC tablet Take 1 tablet (40 mg total) by mouth daily 60 tablet 11 4 02/18/20 24 phentermine (ADIPEX-P) 37.5 mg tabletIndications:T ype 2 diabetes mellitus with hyperglycemia, with long-term current use of insulin (HCC) TAKE 1 TABLET BY MOUTH ONCE DAILY BEFORE BREAKFAST 30 tablet 4 01/21/[address] (ACIPHEX) 20 mg EC tablet Take 1 tablet (20 mg total) by mouth 2 (two) times a day 02/18/20 24 semaglutide (OZEMPIC) 2 mg/dose (8 mg/3 mL) pen injector injection Inject 2 mg under the skin every 7 days 9 mL 3 4 02/18/20 24 documented as of this encounter Discharge Disposition Disposition Code Departure Means Destination Discharge to home or self care documented in this encounter Progress Notes * Mesfin Epstein NP - 01/07/2024 8:30 AM CDT Images from the original note were not included. Patient Name: Alannah Ruano : 1980 Today's Date: 01/07/2024 PCP: Deedee Low PA Referring: Deedee Low PA Chief Complaint Patient presents with Initial Consult Back Pain HPI: Alannah is here for initial visit. She referred to our clinic by her primary care provider. Alannah has a history of morbid obesity, chronic pain since 2003 without inciting event. Over the years, she underwent trigger point, epidural and sacroiliac joint injection with some pain relief. Her last injection was done in 2022, she is not sure what kind. In the past she tried and failed at least 6 months of conservative care including physical therapy, ice and heat application, prescribed and [id number] NSAIDs. The patient states that often, physical therapy aggravated her pain. Today she presents complaining of aching sharp and burning neck pain radiating to shoulders bilaterally. Additionally, she is complaining of sensation of pins and needles in her upper extremities. This pain is usually worse with ambulation and standing and can be relieved by sitting down and layingdown Additionally, she is complaining of aching and sharp ???muscular?? pain around her bra line. This pain is felt as aching. Usually, this pain is worse after standing and walking, sometimes it can be relieved by rest and lying down. Additionally, she is complaining of severe aching and sharp axial low back pain made worse with lumbar spine extension and lateral rotation. At times, her pain will radiate to hips, but axial low back pain is certainly the worst. This pain is often worse in the morning hours and can improve throughout the day. Today she is rating her pain 4/10 with PEG score of 5. Going forward, she is asking for imaging for neck and low back. She would like to return in 2 weeks for imaging review and possible injection planning. Currently, for relief of the pain, she is taking Tylenol, gabapentin, methocarbamol and p.r.n. Toradol which all are somewhat helpful. The patient denies any acute onset of upper or lower extremity numbness or weakness or changes in bowel or bladder function. Previous treatments: Epidural injections, trigger point injections, sacroiliac joint injection Prior medications utilized: [x] Tylenol [] Aspirin [x] Aleve/ Naproxen [x] Ibuprofen [] Meloxicam/ Mobic [] Diclofenac [] Celebrex [] Gabapentin [] Lyrica [] Cymbalta [] Amitriptyline [] Nortriptyline [] Topamax [] Tylenol #3/ #4 [] Tramadol [] Kersey/ Hydrocodone [] Percocet/ Oxycodone [] Morphine [] Nucynta [] Oxycontin [] Hydromorphone/ Dilaudid [] Fentanyl [] Belbuca [] Butrans [] Steroids [] Flexeril [] Zanaflex/ Tizanidine [] Soma [] Skelaxin [x] gabapentin Other: Allergies Allergen Reactions Mushroom Anaphylaxis Nut Flavor Anaphylaxis MAINLY PECANS CAN TOLERATE PEANUTS Pecan Nut Anaphylaxis Pneumovax-23 [Pneumococcal 23-Giselle Ps Vaccine] Unknown Past Medical History: Diagnosis Date Anxiety and depression Asthma Back pain Chronic constipation Cough Diarrhea Fatigue GERD (gastroesophageal reflux disease) Hypercholesterolemia Hypertension Infection Kidney stone Menstrual problem Migraines Muscle pain Numbness and tingling Pain with urination PONV (postoperative nausea and vomiting) Seizure ([facility]) TMJ dysfunction Type 2 diabetes mellitus ([facility]) Insulin pump Patient Active Problem List Diagnosis Type 2 diabetes mellitus with hyperglycemia, with long-term current use of insulin ([facility]) BMI 38.0-38.9,adult Hypertension associated with diabetes ([facility]) Mixed hyperlipidemia hand edger associated with adverse incidents Visual field constriction, bilateral Macular edema, diabetic ([facility]) Lumbar puncture headache Migraine Trigeminal neuralgia Recurrent boils Carpal tunnel syndrome Hypoglycemia due to type 1 diabetes mellitus (CMS/HCC) ([facility]) Physical deconditioning Hyperlipidemia associated with type 2 diabetes mellitus ([facility]) Insulin pump in place Abscess of buttock Abscess of vulva Asthma Chronic recurrent sinusitis Claustrophobia Conjunctivitis Cough Cyst of pineal gland Diarrhea Disorder of vision Dyslipidemia Foot joint pain Gastroesophageal reflux disease without esophagitis Generalized anxiety disorder Hematochezia Hemorrhoids Irregular periods Irritable bowel syndrome Keratosis pilaris Mental disorder Microalbuminuric diabetic nephropathy (CMS/HCC) ([facility]) Mild anxiety Mild major depression ([facility]) Occult blood in stools Panic attack Posterior rhinorrhea Routine general medical examination at a health care facility Seasonal allergic rhinitis due to pollen Severe recurrent major depression without psychotic features ([facility]) Uncontrolled type 2 diabetes mellitus Vitamin D deficiency Morbid (severe) obesity due to excess calories ([facility]) Nausea and vomiting Nonsustained ventricular tachycardia ([facility]) Cervical radiculopathy Lumbar radiculopathy Chronic migraine without aura COVID-19 Intermittent palpitations Spasmodic torticollis Tachycardia Wound dehiscence Myofascial pain Past Surgical History: Procedure Laterality Date ADENOIDECTOMY adenoidectomy BARIATRIC SURGERY 09/07/20 COLONOSCOPY 2007 GASTRECTOMY LUMBAR PUNCTURE WO INJECTION, DIAGNOSTIC N/A 09/07/2021 ORAL SURGERY Oral Surgery SINUS SURGERY 2014 TONSILLECTOMY tonsillectomy Social History Tobacco Use Smoking status: Former Types: Cigarettes Smokeless tobacco: Never Tobacco comments: Randomly in late high school Substance and Sexual Activity Drug use: Never Comment: Rare alcohol use Sexual activity: Not Currently Partners: Male control/protection: Abstinence, Condom Male, I.U.D. Alcohol Use: Not At Risk (09/05/2023) AUDIT-C Frequency of Alcohol Consumption: Never Average Number of Drinks: Patient does not drink Frequency of Binge Drinking: Never Family History Problem Relation Age of Onset Other (smoker) Mother Heart attack Father Family history of myocardial infarction - (Added by TW Conv) Stroke Father Migraines Father Hypertension Father Diabetes Father Asthma Father COPD Father Depression Father Obesity Father Hypertension Sister Family history of hypertension - (Added by TW Conv) Depression Sister Family history of depression - (Added by TW Conv) Mental illness Sister FH: mental illness - (Added by TW Conv) Migraines Sister Family history of migraine headaches - (Added by TW Conv) Hypertension Sister Family history of hypertension - (Added by TW Conv) Hypertension Sister Depression Sister Mental illness Sister Obesity Sister Glaucoma Maternal Grandmother Macular degeneration Maternal Grandmother Hearing loss Maternal Grandmother HOME MEDICATIONS : acetone, urine, test strip albuterol 2.5 mg /3 mL (0.083 %) nebulizer solution albuterol HFA (ProAir HFA) 90 mcg/actuation inhaler albuterol HFA (ProAir HFA) 90 mcg/actuation inhaler albuterol HFA (PROVENTIL HFA,VENTOLIN HFA,PROAIR HFA) 90 mcg/actuation inhaler Amzeeq 4 % foam atorvastatin (LIPITOR) 40 mg tablet azelastine (ASTELIN) 137 mcg (0.1 %) nasal spray bevacizumab (AVASTIN) 25 mg/mL injection blood glucose diagnostic strip blood-glucose meter misc blood-glucose sensor (Dexcom G6 Sensor) device blood-glucose transmitter (Dexcom G6 Transmitter) device buPROPion (WELLBUTRIN) 100 mg tablet carBAMazepine (TEGretol) 200 mg tablet cetirizine (ZyrTEC) 10 mg tablet diazePAM (VALIUM) 5 mg tablet diphenhydrAMINE (BENADRYL) 25 mg capsule doxycycline 100 mg capsule empagliflozin (JARDIANCE) 25 mg tablet ergocalciferol (VITAMIN D) 50,000 unit capsule eszopiclone (LUNESTA) 1 mg tablet fenofibrate (TRIGLIDE) 160 mg tablet fexofenadine (OCHOA) 180 mg tablet HumaLOG 100 unit/mL vial for injection hydroCHLOROthiazide (MICROZIDE) 12.5 mg capsule insulin pump cart,auto,BT-cntr (Omnipod 5 G6 Intro Kit, Gen 5,) cartridge insulin pump cart,automated,BT (Omnipod 5 G6 Pods, Gen 5,) cartridge ketorolac (TORADOL) 10 mg tablet lamoTRIgine (LaMICtal) 100 mg tablet losartan (COZAAR) 100 mg tablet montelukast (SINGULAIR) 10 mg tablet olopatadine 0.6 % spray,non-aerosol ondansetron ODT (ZOFRAN-ODT) 4 mg disintegrating tablet OneTouch Delica Plus Lancet 33 gauge misc oxymetazoline (Rhofade) 1 % cream pantoprazole DR (PROTONIX) 40 mg EC tablet pen needle, diabetic (BD Ultra-Fine Florina Pen Needle) 32 gauge x 5/32 needle phentermine (ADIPEX-P) 37.5 mg tablet propranoloL (INDERAL) 20 mg tablet rimegepant (NURTEC ODT) tablet,disintegrating semaglutide (OZEMPIC) 2 mg/dose (8 mg/3 mL) pen injector injection traZODone (DESYREL) 50 mg tablet triamcinolone (KENALOG) 0.1 % ointment albuterol ER (VOSPIRE ER) 8 mg 12 hr tablet EPINEPHrine 0.3 mg/0.3 mL auto-injection syringe eptinezumab-jjmr (Vyepti) fluticasone propion-salmeteroL (ADVAIR DISKUS) 250-50 mcg/dose diskus inhaler glucagon (Baqsimi) 3 mg/actuation spray,non-aerosol hydrOXYzine (ATARAX) 25 mg tablet ketorolac (TORADOL) 10 mg tablet ketorolac (TORADOL) 10 mg tablet linaCLOtide (Linzess) 72 mcg capsule prucalopride (MOTEGRITY) [address] (ACIPHEX) 20 mg EC tablet Soolantra 1 % cream topiramate (TOPAMAX) 200 mg tablet topiramate (TOPAMAX) 200 mg tablet Review of Systems Significant for neck, mid back and low back pain Physical Exam Vitals: 01/07/24 0849 BP: 129/89 Pulse: 79 Resp: 18 SpO2: 100% Weight: 100.8 kg (222 lb 3.2 oz) Estimated body mass index is 38.14 kg/m?? as calculated from the following: Height as of 10/07/23: 162.6 cm (5' 4 ). Weight as of this encounter: 100.8 kg (222 lb 3.2 oz). Alert and oriented. Normal pupils. Normal respiratory effort. Abdomen not distended. CN 2-12 grossly intact. Generalized tenderness to palpation over cervical spine with multiple trigger points within cervical paraspinous musculature. Spurling's is positive bilaterally. Generalized tenderness to palpation over mid back at thoracic paraspinous musculature with multipleactive trigger points within the thoracic paraspinous musculature at the bra line. There is generalized tenderness to palpation over the lumbar spine, mostly facet joints. The patient's axial low back pain is reproducible with lumbar spine extension and lateral rotation. Straight leg raising is also positive bilaterally Assessment Encounter Diagnoses Name Primary? Chronic pain syndrome Cervical radiculopathy Yes Lumbar radiculopathy Myofascial pain Medical Decision Making / Plan: VAS reviewed with score of: 4/10 PEG Scale Assessing Pain Intensity and Interference reviewed with score of: 5/10 [facility] Prescription Drug Monitoring reviewed and found appropriate. No data to display Plan: Today I saw Helena. She presents with multiple complaints of neck mid back and low back pain. I believe the majority of the patient neck pain is a combination of cervical radiculopathy as well as cervical myofascial pain. We have discussed the plan of care. We will order cervical spine MRI to workup asource of pain. Depending on the results of the MRI, the patient might benefit from epidural injection versus cervical paraspinal trigger point injections or both. As far as the patient's mid back pain, I think it is secondary to myofascial dysfunction. We have discussed the plan of care. We will consider bilateral thoracic paraspinal trigger point injections in the future. The patient's low back and radicular pain I think is a combination of axial low back pain associated with facet arthropathy and lumbar spondylosis, however, I can not entirely rule out radicular component to the pain. We have discussed the plan of care. We will order lumbar spine MRI without contrast. Depending on the results of the MRI, we will consider lumbar medial branch nerve block and RFA fo r more durable relief of axial low back pain versus epidural injection or maybe even sacroiliac joint injection if MRI does not reveal pathology associated with lumbar radiculopathy. We have also discussed importance of continuation of physical therapy, but the patient is worried that physical therapy can make her pain worse and refuses for right now. We have also discussed importance of weight loss for overall pain relief and health promotion. Follow-up in 2 weeks for imaging review and injection schedule Goals of Treatment: Treat underlying pathology, improve pain control, improve function and quality of life. Use of Medications: The pain management contract has been previously reviewed. Questions solicited and answered, and the patient endorses a clear understanding. The patient understands random toxicology screening and prescription drug monitoring will be used. Instructed to take the smallest effective dose of opioid medication. Risks/side-effects of opioid medications, if utilizing, have been reviewed including: drowsiness, tolerance, addiction, abuse, constipation, nausea, vomiting, itching, dizziness, allergic reaction, respiratory depression, lack of benefit, endocrine abnormalities, low testosterone, sexual dysfunction, or . If utilizing, risks/side-effects of NSAID???s and potential for gastrointestinal bleeding, gastritis/esophagitis, and increased cardiac risk reviewed. Risks/side-effects of Gabapentin, Lyrica, and other potential sedative medications, if utilizing, have been reviewed including drowsiness, sedation, dizziness, fluid retention, weight gain, respiratory depression, and . If utilizing medications, the patient has been instructed to take every medication appropriately, storing and disposing properly, never sharing medication. The patient has been instructed on opioid medications, including but not limited to: do not combine with other medications such as benzodiazepines, alcohol, muscle relaxers, or other depressant medications. Patient instructed to avoid driving and operating heavy machinery. UDS screens will be performed to assess for medication, metabolites, other medications, and illicit substances. Results may be discussed at the next visit. Pre-hypertension/Hypertension: The patient has been informed that they may have pre-hypertension orhypertension based on a blood pressure reading in the office today. I recommend that the patient call their primary care provider or a physician of their choice this week to arrange follow up for further evaluation of possible pre-hypertension or hypertension. I have also recommended that they try weight loss and exercise for management. Tobacco Screening: This patient was screened for tobacco use. Patient is not a tobacco user. Tobacco counseling not applicable. Mini Shifter: Mini Shifter done with Fluency Direct: variances and inaccuracies may occur. Dictations not proofread. Problem list pertinent to today???s visit reviewed, but entire patient problem list not reviewed today. This note is prepared by MAYKEL Garcia. I electronically signed this note at 9:31 AM on 01/07/24. I, MAYKEL Garcia, have personally performed the services described in the documentation, reviewed the documentation as recorded by the scribe in my presence, and it accurately and completelyrecords my words and actions though there are potential variances in recording and regulated program manager. Dictations not proofread. Cosigned by Brendan Oconnell MD at 01/07/2024 12:34 PM CDT documented in this encounter Plan of Treatment Scheduled Orders Name Type Priority Associated Diagnoses Orde r Schedule MRI Lumbar Spine WO Contrast Imaging Schedule Routine, Read Routine (OP Routine) Lumbar radiculopathy Expected: 01/07/2024, Expires: 01/06/2025 MRI Cervical Spine WO Contrast Imaging Schedule Routine, Read Routine (OP Routine) Cervical radiculopathy Expected: 01/14/2024, Expires: 01/06/2025 Scheduled Referrals Name Type Priority Associated Diagnoses Order Schedule Ambulatory referral to Pain Management Outpatient Referral Routine Chronic pain syndrome Once for 1 Occurrences starting 01/07/2024 until 01/07/2024 documented as of this encounter Visit Diagnoses Diagnosis Cervical radiculopathy- Primary Brachial neuritis or radiculitis nos Chronic pain syndrome Lumbar radiculopathy Thoracic or lumbosacral neuritis or radiculitis, unspecified Myofascial pain Unspecified myalgia and myositis documented in this encounter Historical Medications * This list may reflect changes made after this encounter. eptinezumab-jjmr (Vyepti) Infuse 1 mL (100 mg total) into a venous catheter every 3 (three) months added in this encounter Care Teams Manager Housekeeping Relationship Specialty Start Date End Date Deedee Low PA PCP - General 03/13/17 documented as of this encounter
--- OUTSIDE RECORDS SUMMARY | 2024-02-24 17:10 | XMS_ITS | Encounter Summary ---
Author Organization [facility] Healthcare Address [address] [place] [address] Care Team Providers Care Blueprinting Machine Operator Name Role Phone Deedee Low Primary Care Pr ovider Encounter Details Date Type Department Care Team (Latest Contact Info) Description 02/20/2024 11:49 AM COMMUNITY ACTION WORKER - 02/20/2024 11:59 PM COMMUNITY ACTION WORKER Hospital Encounter [address] [address] Acute nasopharyngitis Discharge Disposition: Discharge to home or self care Social History Tobacco Use Types Packs/Day Years Used Date Smoking Tobacco: Former Cigarettes Smokeless Tobacco: Never Comments:Randomly in late [employer] Alcohol Use Standard Drinks/Week Comments [...] points, staff should administer the PHQ-9) 0 02/18/2024 Personal Safety Answer Date Recorded Have you ever been in or are you currently in a harmful physical or emotional relationship or is someone making you feel afraid or unsafe? 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 bevacizumab (AVASTIN) 25 mg/mL injection prn blood glucose diagnostic stripIndications:Typ e 2 diabetes mellitus with hyperglycemia, with long-term current use of insulin (HCC) Use to check bg 7 times daily 500 each 1 0 blood-glucose meter miscIndications:Type 2 diabetes mellitus with hyperglycemia, with long-term [...] tablet (10 mg total) by mouth daily dapagliflozin propanediol (FARXIGA) 10 mg tablet Take 1 tablet (10 mg total) by mouth daily 30 tablet 11 4 [employer] G6 Sensor device REPLACE SENSOR DIRECTED EVERY 10 DAYS 9 each 4 diazePAM (VALIUM) 5 mg tablet Take 1 tablet (5 mg total) by mouth every 8 (eight) hours as needed 1 diphenhydrAMINE (BENADRYL) 25 mg capsule Take 1 tablet/capsule (25 mg total) by mouth every 6 (six) hours as needed doxycycline 100 mg capsuleIndications:P rophylaxis, Medical,Skin/Soft Tissue Infection Take 1 tablet/capsule (100 [...] each 2 HumaLOG 100 unit/mL vial for injectionIndications :Type 2 diabetes mellitus with hyperglycemia, with long-term current use of insulin (HCC) INJECT UP TO 100 UNITS DAILY VIA INSULIN PUMP 90 mL 1 4 hydroCHLOROthiazide (MICROZIDE) 12.5 mg capsule Take 1 capsule (12.5 mg total) by mouth daily 90 capsule 1 4 05/08/19 25 hydrOXYzine (ATARAX) 25 mg tablet Take 1 tablet (25 mg total) by mouth 1-2 nightly insulin aspart (NovoLOG) 100 unit/mL vial for injection Inject up to 100 units/day via insulin pump 90 mL 3 4 insulin pump cart,auto,BT,G6/7 (Omnipod 5 G6-G7 Pods, Gen 5,) cartridge CHANGE POD EVERY 3 DAYS 10 each 11 4 insulin pump cart,auto,BT-cntr (Omnipod 5 G6 Intro [...] (100 mg total) by mouth daily 2 lidocaine viscous (XYLOCAINE) 2 % solutionIndications: Acute nasopharyngitis Apply 5-10 mL to the mouth or throat 4 (four) times a day as needed (gargle and spit) for up to 5 days 100 mL 4 02/25/20 24 linaCLOtide (Linzess) 72 mcg capsule daily losartan (COZAAR) 100 mg tablet Take 1 tablet (100 mg total) by mouth daily 4 montelukast (SINGULAIR) 10 mg tablet nightly 1 olopatadine 0.6 % spray,non-aerosol olopatadine 0.6 % nasal spray ondansetron ODT (ZOFRAN-ODT) 4 mg disintegrating tabletIndications:Ga stroparesis Take 2 tablets (8 mg total) by mouth every 8 (eight) hours as needed for nausea or vomiting 180 tablet 4 OneTouch Delica Plus Lancet 33 gauge misc 02 2 oxymetazoline (Rhofade) 1 % cream Rhofade 1 % topical cream pen needle, diabetic (BD Ultra-Fine Florina Pen Needle) 32 gauge x 5/32 needleIndications:Ty pe 2 diabetes mellitus with hyperglycemia, with long-term current use of insulin (HCC) USE DIRECTED up to 7 times daily 700 each 0 phentermine (ADIPEX-P) 37.5 mg tabletIndications:Ty pe 2 diabetes mellitus with hyperglycemia, with long-term current use of insulin (HCC) TAKE 1 TABLET BY MOUTH ONCE DAILY BEFORE BREAKFAST 30 tablet 4 propranoloL (INDERAL) 20 mg tablet Take 1 tablet (20 mg total) by mouth 2 (two) times a day 0 rimegepant (NURTEC ODT) tablet,disintegratin g Take 1 tablet (75 mg total) by mouth daily as needed 2 semaglutide (OZEMPIC) 2 mg/dose (8 mg/3 mL) pen injector injection Inject 2 mg under the skin every 7 days 3 mL 11 4 Soolantra 1 % cream APPLY A PEA [...] % ointment 2 (two) times a day 2 vonoprazan 10 mg tabletIndications:Ga stroesophageal reflux disease without esophagitis Take 10 mg by mouth daily 90 tablet 4 documented as of this encounter Discharge Disposition Disposition Code Departure Means Destination Discharge to home or self care documented in this encounter Plan of Treatment Not on file documented as of this encounter Procedures Procedure Name Priority Date/Time Associated Diagnosis Comments INFLUENZA A/B, RSV, AND COVID-19 PCR Routine 02/20/2024 11:49 AM COMMUNITY ACTION WORKER Acute nasopharyngitis THROAT CULTURE Routine 02/20/2024 11:49 AM COMMUNITY ACTION WORKER Acute nasopharyngitis documented in this encounter Results * Influenza A/B, RSV, and COVID-19 PCR Nasopharyngeal (02/20/2024 11:49 AM COMMUNITY ACTION WORKER) COVID-19 RNA Negative Negative Influenza A RNA Negative Negative [facility] Influenza B RNA Negative Negative [facility] RSV RNA Negative Negative [facility] Comment: Interpretive data: Testing performed by [facility]. This test is performed using the e[employer] Xpert Xpress CoV-2/Flu/RSV plus assay. This is a multiplex, real-time reverse transcriptase PCR assay intended for the qualitative detection of nucleic acid from SARS-CoV-2, influenza A, influenza B, and respiratory syncytial virus. This assay has been cleared by the [place] Food and Drug administration. The performance characteristics have been verified by the [facility]. ??Results must be considered in the clinical context, and a negative result does not rule out infection. Interpretive Data last revised 2023 Nasopharyngeal 02/20/2024 11 :49 AM COMMUNITY ACTION WORKER 02/20/2024 3:05 PM COMMUNITY ACTION WORKER Narrative [facility] - 02/20/2024 4:07 PM COMMUNITY ACTION WORKER Is the Patient experiencing symptoms consistent with COVID?->Yes Angelita Schilling NP LAB MICROBIOLOGY - GENERAL АННА DEL CID Final Result [facility] [address] Department [place] [address] * Throat culture Throat (02/20/2024 11:49 AM COMMUNITY ACTION WORKER) Report Final Report: No growth of pathogens. Comment:Testing performed by : [facility], [address] [facility], [place]., [address] Throat 02/20/2024 11:4 9 AM COMMUNITY ACTION WORKER 02/20/2024 6:18 PM COMMUNITY ACTION WORKER Narrative [facility] - 02/21/2024 3:15 PM COMMUNITY ACTION WORKER Testing performed by [facility] ([phone]). us Angelita Schilling NP LAB MICROBIOLOGY - GENERAL АННА DEL CID Final Result [facility] [address] Department [place] [address] documented in this encounter Visit Diagnoses Diagnosis Acute nasopharyngitis Acute nasopharyngitis (common cold) documented in this encounter Additional Health Concerns Infection Onset Date Last Indicated Resolved Time COVID: Suspected 02/20/2024 02/20/2024 02/20/2024 4:08 PM COMMUNITY ACTION WORKER documented as of this encounter Care Teams Blueprinting 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
--- OUTSIDE RECORDS SUMMARY | 2024-02-24 17:10 | XMS_ITS | Encounter Summary ---
Author Organization [facility] Healthcare Address [address] [place] [address] Care Team Providers Care Development Chemist Name Role Phone Deedee Low Primary Care Pr ovider Reason for Referral * Procedure (Routine) - Pending Review Specialty Diagnoses / Procedures Referred By Angelita silva Referred To Contact Diagnoses Cervical radiculopathy Cervical myofascial pain syndrome Procedures [place] [address] [address] [place] [address] Phone: tel: fax: [facility] [id number] [place] [id number] Phone: tel: fax: Referral ID Status Reason Start Date Expiration Date V isits Requested Visits Authorized [id number] Pending Review 02/24/2024 03/25/2025 1 1 MATIC CLIPPER * MRI/CAT/PET Scan (Routine) - Pending Review Specialty Diagnoses / Procedures Referred By Angelita silva Referred To Contact Radiology Diagnoses Cervical radiculopathy Procedures MRI Cervical [place] [address] [place] [address] Phone: tel: fax: [address] [phone] Referral ID Status Reason Start Date Expiration Date V isits Requested Visits Authorized [id number] Pending Review 02/24/2024 03/25/2025 1 1 MATIC CLIPPER Reason for Visit * Reason Comments Follow-up Back Pain Neck Pain Encounter Details Date Type Department Care Team (Latest Contact Info) Description 02/24/2024 7:22 AM AUTOMATIC CLIPPER Hospital Encounter [facility] [address] [place] [address] [place] [address] [facility] [address] [place] [address] Cervical radiculopathy (Primary Dx); Lumbar radiculopathy; Cervical myofascial pain syndrome Social History Tobacco Use Types Packs/Day Years Used Date Smoking Tobacco: Former Cigarettes Smokeless Tobacco: Never Comments:Randomly in late [employer] Alcohol Use Standard Drinks/Week Comments [...] on file Legal Sex Female 10:18 AM AUTOMATIC CLIPPER Gender Identity Female 09/21/2019 9:02 PM CDT Sexual Orientation Not on file 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 Patient Name: Alannah Ruano : 1980 Today's Date: 02/24/2024 PCP: Deedee Low PA Referring: Deedee Low PA Chief Complaint Patient presents with Follow-up Back Pain Neck Pain HPI: Today she presents complaining of aching sharp and burning neck pain radiating to shoulders bilaterally. Additionally, she is complaining of sensation of pins and needles in her upper extremities. This pain is usually worse with ambulation and standing and can be relieved by sitting down and layingdown. This pain is not improving. It was recalcitrant to at least 6 weeks of conservative care including ice and heat application, prescribed and [id number]-tjqfcko NSAIDs, at least 6 weeks' course of physical therapy. The patient continues exercises for the neck range of motion, but no significant pain relief has been achieved. She is also complaining of generalized low back pain mostly on the right. This pain is thought to be associated with kidney stones. The patient will undergo a procedure tomorrow to treat this situation. Today she is rating her pain 5/10 with PEG score of 5. Going forward, she is asking for imaging forneck . She also would like to schedule trigger point injections for relief of her neck pain. Currently, for relief of the pain, she is taking Tylenol, gabapentin, methocarbamol and p.r.n. Toradol which all are somewhat helpful. The patient denies any acute onset of upper or lower extremity numbness or weakness or changes in bowel or bladder function. Alannah is here for initial visit. She [...] therapy, ice and heat application, prescribed and zrwo-wgy-jjnonjk NSAIDs. The patient states that often, physical therapy aggravated her pain. Previous treatments: Epidural injections, trigger point injections, sacroiliac joint injection Prior medications utilized: [x] Tylenol [] Aspirin [x] Aleve/ Naproxen [x] Ibuprofen [] Meloxicam/ Mobic [] Diclofenac [] Celebrex [] Gabapentin [] Lyrica [] Cymbalta [] Amitriptyline [] Nortriptyline [] Topamax [] Tylenol #3/ #4 [] Tramadol [] Assumption/ Hydrocodone [] Percocet/ Oxycodone [] Morphine [] [...] urination PONV (postoperative nausea and vomiting) Seizure ([facility]) TMJ dysfunction Type 2 diabetes mellitus ([facility]) Insulin pump Patient Active Problem List Diagnosis Type 2 diabetes mellitus with hyperglycemia, with long-term current use of insulin ([facility]) BMI 38.0-38.9,adult Hypertension associated with diabetes ([facility]) Mixed hyperlipidemia supervisor coating associated with adverse incidents Visual field constriction, bilateral Macular edema, diabetic ([facility]) Lumbar puncture headache Migraine Trigeminal neuralgia Recurrent boils Carpal tunnel syndrome Physical deconditioning Hyperlipidemia associated with type 2 diabetes mellitus ([facility]) Insulin pump in place Abscess of buttock Abscess of vulva Asthma Chronic recurrent sinusitis Claustrophobia Conjunctivitis Cough Cyst of pineal gland Diarrhea Disorder of vision Dyslipidemia Foot joint pain Gastroesophageal reflux disease without esophagitis Generalized anxiety disorder Hematochezia Hemorrhoids Irregular periods Irritable bowel syndrome Keratosis pilaris Mental disorder Microalbuminuric diabetic nephropathy (CMS/HCC) (HCC) Mild anxiety Mild major depression (HCC) Occult blood in stools Panic attack Posterior rhinorrhea Routine general medical examination at a health care facility Seasonal allergic rhinitis due to pollen Severe recurrent major depression without psychotic features (HCC) Uncontrolled type 2 diabetes mellitus Vitamin D deficiency Morbid (severe) obesity due to excess calories (HCC) Nausea and vomiting Nonsustained ventricular tachycardia (HCC) Cervical radiculopathy Lumbar radiculopathy Chronic migraine without aura COVID-19 Intermittent palpitations Spasmodic torticollis Tachycardia Wound dehiscence Myofascial pain Past Surgical History: Procedure Laterality Date ADENOIDECTOMY adenoidectomy BARIATRIC SURGERY 09/07/20 COLONOSCOPY 2007 GASTRECTOMY LUMBAR PUNCTURE WO INJECTION, DIAGNOSTIC N/A 09/07/2021 ORAL SURGERY Oral Surgery SINUS SURGERY 2015 TONSILLECTOMY tonsillectomy Social History Tobacco Use Smoking [...] /3 mL (0.083 %) nebulizer solution albuterol ER (VOSPIRE ER) 8 mg 12 hr tablet albuterol HFA (ProAir HFA) 90 mcg/actuation inhaler albuterol HFA (ProAir HFA) 90 mcg/actuation inhaler albuterol HFA (PROVENTIL HFA,VENTOLIN HFA,PROAIR HFA) 90 mcg/actuation inhaler Amzeeq 4 % foam atorvastatin (LIPITOR) 40 mg tablet azelastine (ASTELIN) 137 mcg (0.1 %) nasal spray bevacizumab (AVASTIN) 25 mg/mL injection blood glucose diagnostic strip blood-glucose meter misc blood-glucose transmitter (Dexcom G6 Transmitter) device buPROPion (WELLBUTRIN) 100 mg tablet carBAMazepine (TEGretol) 200 mg tablet cetirizine (ZyrTEC) 10 mg tablet dapagliflozin propanediol (FARXIGA) 10 mg tablet Dexcom G6 Sensor device diazePAM (VALIUM) 5 mg tablet diphenhydrAMINE (BENADRYL) 25 mg capsule doxycycline 100 mg capsule EPINEPHrine 0.3 mg/0.3 mL auto-injection syringe eptinezumab-jjmr (Vyepti) ergocalciferol (VITAMIN D) 50,000 unit capsule eszopiclone (LUNESTA) 1 mg tablet fenofibrate (TRIGLIDE) 160 mg tablet fexofenadine (OCHOA) 180 mg tablet fluticasone propion-salmeteroL (ADVAIR DISKUS) 250-50 mcg/dose diskus inhaler glucagon (Baqsimi) 3 mg/actuation spray,non-aerosol HumaLOG 100 unit/mL vial for injection hydroCHLOROthiazide (MICROZIDE) 12.5 mg capsule hydrOXYzine (ATARAX) 25 mg tablet insulin aspart (NovoLOG) 100 unit/mL vial for injection insulin pump cart,auto,BT,G6/7 (Omnipod 5 G6-G7 Pods, Gen 5,) cartridge insulin pump cart,auto,BT-cntr (Omnipod 5 G6 Intro Kit, Gen 5,) cartridge insulin pump cart,automated,BT (Omnipod 5 G6 Pods, Gen 5,) cartridge ketorolac (TORADOL) 10 mg tablet ketorolac (TORADOL) 10 mg tablet lamoTRIgine (LaMICtal) 100 mg tablet lidocaine viscous (XYLOCAINE) 2 % solution linaCLOtide (Linzess) 72 mcg capsule losartan (COZAAR) 100 mg tablet montelukast (SINGULAIR) 10 mg tablet olopatadine 0.6 % spray,non-aerosol ondansetron ODT (ZOFRAN-ODT) 4 mg disintegrating tablet OneTouch Delica Plus Lancet 33 gauge misc oxymetazoline (Rhofade) 1 % cream pen needle, diabetic (BD Ultra-Fine Florina Pen Needle) 32 gauge x 5/32 needle phentermine (ADIPEX-P) 37.5 mg tablet propranoloL (INDERAL) 20 mg tablet rimegepant (NURTEC ODT) tablet,disintegrating semaglutide (OZEMPIC) 2 mg/dose (8 mg/3 mL) pen injector injection Soolantra 1 % cream topiramate (TOPAMAX) 200 mg tablet topiramate (TOPAMAX) 200 mg tablet traZODone (DESYREL) 50 mg tablet triamcinolone (KENALOG) 0.1 % ointment vonoprazan 10 mg tablet prucalopride (MOTEGRITY) 2 mg tablet Review of Systems Significant for neck, mid back and low back pain Physical Exam Vitals: 02/24/24 0728 BP: (!) 155/105 Comment: hasnt taken bp meds Pulse: 94 Resp: 15 SpO2: 100% Estimated body mass index is 37.42 kg/m?? as calculated from the following: Height as of 02/20/24: 162.6 cm (5' 4 ). Weight as of 02/20/24: 98.9 kg (218 lb). Alert and oriented. Normal pupils. Normal respiratory [...] positive bilaterally Assessment Encounter Diagnoses Name Primary? Lumbar radiculopathy Cervical radiculopathy Yes Cervical myofascial pain syndrome Medical Decision Making / Plan: VAS reviewed with score of: 5/10 PEG Scale Assessing Pain Intensity and Interference reviewed with score of: 5/10 [facility] Prescription Drug Monitoring reviewed and found appropriate. No data to display Plan: Today I saw Helena. I believe the majority of the patient's neck pain and radiating bilateral shoulderpain is secondary to cervical radiculopathy and at least some degree of cervical spinal stenosis. Concerning failure of conservative measures to control the patient's pain, I will order cervical spine MRI without contrast. I believe at least some of the patient's cervical pain is secondary to myofas cial dysfunction as evidenced by multiple active trigger points within cervical paraspinal musculature. We have discussed the plan of care. I will schedule the patient for bilateral cervical paraspinal trigger point injections. We will follow-up 2 weeks after the procedure. Goals of Treatment: Treat underlying pathology, improve [...] a tobacco user. Tobacco counseling not applicable. Molder Pipe Covering: Molder Pipe Covering done with Fluency Direct: variances and inaccuracies may occur. Dictations not proofread. Problem list pertinent to today???s visit reviewed, but entire patient problem list not reviewed today. This note is prepared by MAYKEL Garcia. I electronically signed this note at 8:01 AM on 02/24/24. I, MAYKEL Garcia, have personally performed the services described in the documentation, reviewed the documentation as recorded by the scribe in my presence, and it accurately and completelyrecords my words and actions though there are potential variances in recording and bag hanger. Dictations not proofread. MATIC CLIPPER documented in this encounter Miscellaneous Notes * Addendum Note - Radha Kay RN - 02/24/2024 7:30 AM CSTEncounter addended by: Radha Kay RN on: 02/24/2024 8:15 AM Actions taken: Order list changed, Diagnosis association updated MATIC CLIPPER documented in this encounter Plan of Treatment Scheduled Orders Name Type Priority Associated Diagnoses Orde r Schedule MRI Cervical Spine WO Contrast Imaging Schedule Routine, Read Routine (OP Routine) Cervical radiculopathy Expected: 02/24/2024, Expires: 02/23/2025 TRIGGER POINT INJECTION Procedures Routine Cervical radiculopathy Cervical myofascial pain syndrome 1 Occurrences starting 02/24/2024 until 02/23/2025 documented as of this encounter Visit Diagnoses Diagnosis Cervical radiculopathy- Primary Brachial neuritis or radiculitis nos Lumbar radiculopathy Thoracic or lumbosacral neuritis or radiculitis, unspecified Cervical myofascial pain syndrome documented in this encounter Care Teams Development Chemist Relationship Specialty Start Date End Date Deedee Low PA PCP - General 03/13/17 documented as of this encounter
--- OUTSIDE RECORDS SUMMARY | 2024-02-24 17:10 | XMS_ITS | Clinical Summary ---
Author Organization [facility] [place] [address] Address [address] [place] [address] Care Team Providers Care Office Support Assistant Name Role Phone ZeyadAmelia العليbul DOWELL Primary [facility] Pr ovider Allergies Active Allergy Reactions Criticality Noted Date Comments Mushroom Anaphylaxis High 01/04/2016 Nut Flavor Anaphylaxis High 01/04/2016 MAINLY PECANS CAN TOLERATE PEANUTS Pecan Nut Anaphylaxis High 09/05/2021 Pneumococcal 23-Giselle Ps Vaccine Unknown 01/09/2022 Medications albuterol ER (VOSPIRE ER) 8 mg 12 hr tablet every 12 (twelve) hours 016 Active fexofenadine (OCHOA) 180 mg tablet daily 016 Active hydrOXYzine (ATARAX) 25 mg tablet Take 1 tablet (25 mg total) by mouth 1-2 nightly Active blood-glucose meter miscIndications:T ype 2 diabetes mellitus with hyperglycemia, with long-term current use of insulin (HCC) Check bg daily 1 each 020 Active blood glucose diagnostic stripIndications: Type 2 diabetes mellitus with hyperglycemia, with long-term current use of insulin ([facility]) Use to check bg 7 times daily 500 each 1 020 Active pen needle, diabetic (BD Ultra-Fine Florina Pen Needle) 32 gauge x 5/32 needleIndications :Type 2 diabetes mellitus with hyperglycemia, with long-term current use of insulin ([facility]) USE DIRECTED up to 7 times daily 700 each 020 Active propranoloL (INDERAL) 20 mg tablet Take 1 tablet (20 mg total) by mouth 2 (two) times a day Active carBAMazepine (TEGretol) 200 mg tablet Take 0.5 tablets (100 mg total) by mouth 3 (three) times a day Active montelukast (SINGULAIR) 10 mg tablet nightly Active diazePAM (VALIUM) 5 mg tablet Take 1 tablet (5 mg total) by mouth every 8 (eight) hours as needed Active azelastine (ASTELIN) 137 mcg (0.1 %) nasal spray azelastine 137 mcg (0.1 %) nasal spray aerosol [place] 2 sprays every day by nasal route for 31 days. Active buPROPion (WELLBUTRIN) 100 mg tablet Take 1 tablet (100 mg total) by mouth 2 (two) times a day Active topiramate (TOPAMAX) 200 mg tablet 1 tablet (200 mg total) 2 (two) times a day Active lamoTRIgine (LaMICtal) 100 mg tablet Take 1 tablet (100 mg total) by mouth daily Active OneTouch Delica Plus Lancet 33 gauge misc Active albuterol 2.5 mg /3 mL (0.083 %) nebulizer solution albuterol sulfate 2.5 mg/3 mL (0.083 %) solution for nebulization PRN Active rimegepant (NURTEC ODT) tablet,disintegra ting Take 1 tablet (75 mg total) by mouth daily as needed Active diphenhydrAMINE (BENADRYL) 25 mg capsule Take 1 tablet/capsule (25 mg total) by mouth every 6 (six) hours as needed Active cetirizine (ZyrTEC) 10 mg tablet Take 1 tablet (10 mg total) by mouth daily Active atorvastatin (LIPITOR) 40 mg tablet 1 tablet (40 mg total) Active glucagon (Baqsimi) 3 mg/actuation spray,non-aerosol One spray into one nostril once as directed by provider for low blood sugar. 1 each Active triamcinolone (KENALOG) 0.1 % ointment 2 (two) times a day 07/09/2 022 Active fluticasone propion-salmetero L (ADVAIR DISKUS) 250-50 mcg/dose diskus inhaler Activ e ergocalciferol (VITAMIN D) 50,000 unit capsule ergocalciferol (vitamin D2) 1,250 mcg (50,000 unit) capsule TAKE 1 CAPSULE BY MOUTH EVERY WEEK DIRECTED Active EPINEPHrine 0.3 mg/0.3 mL auto-injection syringe Active traZODone (DESYREL) 50 mg tablet Take 1 tablet (50 mg total) by mouth nightly Active eszopiclone (LUNESTA) 1 mg tablet Take 1 tablet (1 mg total) by mouth daily Active olopatadine 0.6 % spray,non-aerosol olopatadine 0.6 % nasal spray Active oxymetazoline (Rhofade) 1 % cream Rhofade 1 % topical cream Active insulin pump cart,auto,BT-cntr (Omnipod 5 G6 Intro Kit, Gen 5,) cartridge Change pod q 3days 1 each 023 Active insulin pump cart,automated,BT (Omnipod 5 G6 Pods, Gen 5,) cartridge Change pod q 3 days 30 each 3 023 Active bevacizumab (AVASTIN) 25 mg/mL injection prn Acti ve Soolantra 1 % cream APPLY A PEA SIZED AMOUNT TO RED AREAS ON THE FACE EVERY NIGHT AT BEDTIME 023 Active Amzeeq 4 % foam qd 023 Active blood-glucose transmitter (Dexcom G6 Transmitter) device USE DIRECTED CHANGE EVERY 3 MONTHS 1 each 3 023 Active losartan (COZAAR) 100 mg tablet Take 1 tablet (100 mg total) by mouth daily 024 Active doxycycline 100 mg capsuleIndication s:Prophylaxis, Medical,Skin/Soft Tissue Infection Take 1 tablet/capsule (100 mg total) by mouth daily 90 tablet/cap yari 3 024 2024 Active fenofibrate (TRIGLIDE) 160 mg tablet Take 1 tablet (160 mg total) by mouth daily 024 Active hydroCHLOROthiazi de (MICROZIDE) 12.5 mg capsule Take 1 capsule (12.5 mg total) by mouth daily 90 capsule 1 024 02/28/ 2025 Active prucalopride (MOTEGRITY) 2 mg tablet Take 1 tablet (2 mg total) by mouth daily 30 tablet 11 Active albuterol HFA (ProAir HFA) 90 mcg/actuation inhaler Active linaCLOtide (Linzess) 72 mcg capsule daily Active ketorolac (TORADOL) 10 mg tablet Active ketorolac (TORADOL) 10 mg tablet Take 1 tablet (10 mg total) by mouth every 6 (six) hours as needed Active topiramate (TOPAMAX) 200 mg tablet daily Active acetone, urine, test strip Test if BG are high, or in case of abdominal pain / nausea, vomiting, suspected DKA 20 strip 3 Active albuterol HFA (ProAir HFA) 90 mcg/actuation inhaler Inhale 2 puffs every 4 (four) hours as needed for wheezing or shortness of breath 3 each 4 024 2024 Active albuterol HFA (PROVENTIL HFA,VENTOLIN HFA,PROAIR HFA) 90 mcg/actuation inhaler Inhale 2 puffs every 6 (six) hours as needed for wheezing or shortness of breath (cough) 1 each Active HumaLOG 100 unit/mL vial for injectionIndicati ons:Type 2 diabetes mellitus with hyperglycemia, with long-term current use of insulin (HCC) INJECT UP TO 100 UNITS DAILY VIA INSULIN PUMP 90 mL 1 Active eptinezumab-jjmr (Vyepti) Infuse 1 mL (100 mg total) into a venous catheter every 3 (three) months Active phentermine (ADIPEX-P) 37.5 mg tabletIndications :Type 2 diabetes mellitus with hyperglycemia, with long-term current use of insulin (HCC) TAKE 1 TABLET BY MOUTH ONCE DAILY BEFORE BREAKFAST 30 tablet Active Dexcom G6 Sensor device REPLACE SENSOR DIRECTED EVERY 10 DAYS 9 each Active insulin pump cart,auto,BT,G6/7 (Omnipod 5 G6-G7 Pods, Gen 5,) cartridge CHANGE POD EVERY 3 DAYS 10 each 11 Active insulin aspart (NovoLOG) 100 unit/mL vial for injection Inject up to 100 units/day via insulin pump 90 mL 3 Active dapagliflozin propanediol (FARXIGA) 10 mg tablet Take 1 tablet (10 mg total) by mouth daily 30 tablet 11 Active semaglutide (OZEMPIC) 2 mg/dose (8 mg/3 mL) pen injector injection Inject 2 mg under the skin every 7 days 3 mL 11 Active ondansetron ODT (ZOFRAN-ODT) 4 mg disintegrating tabletIndications :Gastroparesis Take 2 tablets (8 mg total) by mouth every 8 (eight) hours as needed for nausea or vomiting 180 tablet Active vonoprazan 10 mg tabletIndications :Gastroesophageal reflux disease without esophagitis Take 10 mg by mouth daily 90 tablet Active lidocaine viscous (XYLOCAINE) 2 % solutionIndicatio ns:Acute nasopharyngitis Apply 5-10 mL to the mouth or throat 4 (four) times a day as needed (gargle and spit) for up to 5 days 100 mL 024 2023 Active empagliflozin (JARDIANCE) 25 mg tablet Take 1 tablet (25 mg total) by mouth daily 90 tablet 3 023 2023 Discontinued( Alternate therapy) pantoprazole DR (PROTONIX) 40 mg EC tablet Take 1 tablet (40 mg total) by mouth daily 60 tablet 11 024 2023 Discontinued( Alternate therapy) RABEprazole DR (ACIPHEX) 20 mg EC tablet Take 1 tablet (20 mg total) by mouth 2 (two) times a day 2023 Discontinued( Alternate therapy) ketorolac (TORADOL) 10 mg tablet 024 2023 Discontinued semaglutide (OZEMPIC) 2 mg/dose (8 mg/3 mL) pen injector injection Inject 2 mg under the skin every 7 days 9 mL 3 024 2023 Discontinued( Reorder) ondansetron ODT (ZOFRAN-ODT) 4 mg disintegrating tablet DISSOLVE 2 TABLETS IN MOUTH EVERY 8 HOURS NEEDED FOR NAUSEA FOR VOMITING 20 tablet 024 2023 Discontinued( Reorder) prucalopride (Motegrity) 2 mg tablet 1 tablet (2 mg total) daily 2023 Discontinued( Alternate therapy) Active Problems Problem Noted Date Diagnosed Date Myofascial pain 01/07/2024 Nonsustained ventricular tachycardia 08/29/2022 Nausea and vomiting 08/22/2022 Tachycardia 07/12/2022 Chronic migraine without aura 06/25/2022 Spasmodic torticollis 06/25/2022 COVID-19 06/04/2022 Lumbar radiculopathy 05/23/2022 Overview (12/24/2022): Added automatically from request for surgery [id number] Cervical radiculopathy 05/07/2022 Overview (12/24/2022): Added automatically from request for surgery [id number] Intermittent palpitations 05/04/2022 Morbid (severe) obesity due to excess calories 0 03/29/2022 Assessment & Plan (05/09/2023 10:21 AM PRODUCTION CONSULTANT): Chronic stable problem. Assessment & Plan (03/29/2022 2:33 PM PRODUCTION CONSULTANT): Chronic problem. Try lowering insulin. Will leave Ozempic dose same for now but she'll let us know if she wants to try a higher dose. 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 On statin therapy, no changes. Assessment & Plan (05/09/2023 9:38 AM PRODUCTION CONSULTANT): Chronic problem. On statin therapy, no changes. Assessment & Plan (01/02/2023 10:14 AM CDT): Chronic problem. On statin therapy, no changes. Assessment & Plan (08/30/2022 4:34 PM CDT): Chronic problem. On statin therapy, no changes. Assessment & Plan (03/29/2022 2:33 PM PRODUCTION CONSULTANT): Chronic problem. On statin therapy, no changes. Assessment & Plan (11/23/2021 1:19 PM CDT): Chronic problem. On statin therapy, no changes. Insulin pump in place 11/22/2021 Assessment & Plan (02/18/2024 10:09 AM PRODUCTION CONSULTANT): Basal 12a 0.8, 12p 1.1 IC 8 SF 25 T 110, correct above 150 AIT 3 hrs Assessment & Plan (01/02/2023 10:15 AM CDT): No pump setting changes. Gave her info on target, AIT when she switches to OP5, along with setting up a [employer]ogg account. She is planning to start on it this weekend. Assessment & Plan (08/30/2022 4:30 PM CDT): No pump setting changes. Assessment & Plan (03/29/2022 1:35 PM PRODUCTION CONSULTANT): Change BR to 12a 0.8, 12p 1.1 Assessment & Plan (11/23/2021 2:07 PM CDT): No pump setting changes. Physical deconditioning 09/11/2021 Assessment & Plan (09/12/2021 1:23 PM CDT): Patient's friends concerned about ability to care for herself -PT ordered, but unable to participate d/t BATES Migraine 09/10/2021 Assessment & Plan (09/12/2021 1:20 PM CDT): Patient has hx of migraines and is on prophylactic topamax, propranolol, lamictal. Also is on PRN maxalt. - will resume her prophylactic regimen and treatment of headache as above Assessment & Plan (09/10/2021 12:15 PM CDT): Patient has hx of migraine and is on prophylactic topamax, propranolol, lamictal. Also is on PRN maxalt (trying to wean of), nurtec (should be her first line). Patient concerned that her current symptoms are not consistent with her usual migraine headache. - will resume her prophylactic regimen and treatment of headache as above Trigeminal neuralgia 09/10/2021 Assessment & Plan (09/12/2021 1:20 PM CDT): -Continue home dose of lamotrigine. Assessment & Plan (09/10/2021 12:15 PM CDT): Continue home dose of lamotrigine. Recurrent boils 09/10/2021 Assessment & Plan (09/12/2021 1:20 PM CDT): -Continue daily doxycycline. Assessment & Plan (09/10/2021 12:15 PM CDT): Continue daily doxycycline. Carpal tunnel syndrome 09/10/2021 Lumbar puncture headache 09/09/2021 Assessment & Plan (09/12/2021 1:19 PM CDT): Developed severe generalized headache radiating all the [...] blood patch. - continue analgesics and antiemetics Assessment & Plan (09/10/2021 12:14 PM CDT): Developed severe generalized headache radiating all the way to her toes and is positional since getting LP on 09/07, that is not consistent with her usual migraine headache and is associated with intractable n/v, dizziness and an episode of ?syncope. Her headache is most likely worsened due to further dehydration from poor oral intake and continued n/v. - Patient has received Tylenol 1 g x 2, Compazine 5 mg. Benadryl 25 mg, droperidol 0.625 mg, ketorolac 30 mg, LR bolus 1 L in the ED. Continue LR maintenance fluid. Control n/v with PRN zofran. Will treat headache with PRN tylenol, added oxycodone this morning - She was originally planning to follow-up with anesthesia at [place] were her procedure was performed in order to receive an epidural blood patch. Encouraged patient to follow up out patient as planned, could consider neuro radiology consult if headache does not improve Visual field constriction, bilateral 08/25/2021 Macular edema, diabetic 08/25/2021 Assessment & Plan (09/10/2021 11:34 PM CDT): Patient has bilateral macular edema and thought to be 2/2 her underlying diabetes. She follows with Dr Seth - continue Ketorolac ocular drop BID as reported by patient. Assessment & Plan (09/10/2021 12:36 AM CDT): Patient has bilateral macular edema and thought to be 2/2 her underlying diabetes. She follows with Dr Seth - continue Ketorolac ocular drop BID as reported by patient. 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 Assessment & Plan (06/22/2021 2:27 PM CDT): Change settings per below: Basal 12a 1.0, 12p 1.2 IC 8 SF 25 T 100 I also wrote down further setting adjustments if sugars drop with SGLT2i despite the changes above. She is comfortable adjusting pump settings on her own as long as someone tells her what to adjust it to. Assessment & Plan (10/27/2020 3:02 PM CDT): Change correction target to 150. Advised to adjust basal rates to keep BG in low 100's as continues to lose wt. Assessment & Plan (03/26/2020 10:24 PM PRODUCTION CONSULTANT): Increase basal to 3.2 Assessment & Plan (01/27/2020 3:17 PM PRODUCTION CONSULTANT): Increase basal rate to 3.0 per hour = 72 units TDB Lower target to 100 Assessment & Plan (12/25/2019 10:24 AM CDT): Insulin pump setting calculations as follows: Basal 2.9 units per hour = 70.5 TD basal She will run temp basal at 50% for 12 hours Bolus: IC 5 SF 15 T 120 AI 5 . She has gastroparesis and also instructed on how to extend bolus for this. Hypertension associated with diabetes 12/10/2019 Assessment & Plan (02/18/2024 9:36 AM PRODUCTION CONSULTANT): Chronic problem, Controlled on losartan, propranolol, HCTZ. No changes. Assessment & Plan (05/09/2023 10:20 AM PRODUCTION CONSULTANT): Chronic problem, not at goal. Add HCTZ 12.5 mg daily. Continue monitoring BP at home. Assessment & Plan (01/02/2023 10:14 AM CDT): Controlled on losartan. No changes. Assessment & Plan (08/30/2022 4:34 PM CDT): Controlled on losartan. No changes. Assessment & Plan (03/29/2022 2:33 PM PRODUCTION CONSULTANT): Chronic problem, improved on recheck. Continue losartan. Assessment & Plan (11/23/2021 1:19 PM CDT): Controlled on current medications, no changes. Assessment & Plan (09/12/2021 1:17 PM CDT): BP stable. -Continue home lisinopril. Assessment & Plan (09/10/2021 12:12 PM CDT): Continue home lisinopril. Assessment & Plan (06/22/2021 2:25 PM CDT): Controlled on current medications, no changes. Assessment & Plan (10/27/2020 3:04 PM CDT): Controlled on current medications. Continue plan. Assessment & Plan (03/26/2020 10:26 PM PRODUCTION CONSULTANT): Monitor home BP. Assessment & Plan (12/14/2019 3:44 PM CDT): Controlled on current medications. Continue plan. Mixed hyperlipidemia 12/10/2019 Assessment & Plan (09/10/2021 11:34 PM CDT): Continue home lipitor. Assessment & Plan (09/10/2021 12:12 PM CDT): Continue home lipitor. Assessment & Plan (06/22/2021 2:25 PM CDT): Chronic problem. On statin therapy, no changes. Assessment & Plan (10/27/2020 3:04 PM CDT): At goal on current medications. Continue statin therapy. Assessment & Plan (07/28/2020 3:23 PM CDT): Goal of treatment , LDL cholesterol less than 100 ( less than 70 in patients with history of heart attacks and / or strokes ) NonHDL cholesterol ( total cholesterol minus HDL cholesterol ) goal less than 130 ( less than 100 in patients with history of heart attacks and / or strokes ) Low cholesterol, low fat diet was discussed and advised. Daily exercise Get fasting lipid profile Start Atorvastatin Assessment & Plan (03/26/2020 10:24 PM PRODUCTION CONSULTANT): At goal on current medications. Continue statin therapy. Assessment & Plan (12/14/2019 3:44 PM CDT): Hypertriglyceridemia. Needs to be more focused on blood glucose control and diet. Continue fenofibrate. Asthma 06/18/2019 Mental disorder 06/18/2019 Type 2 diabetes mellitus wit h hyperglycemia, with long-term current use of insulin 06/04/2019 Assessment & Plan (02/18/2024 11:09 AM PRODUCTION CONSULTANT): Chronic problem, overall stable but lately issues with getting medications. Change Jardiance to Farxiga for insurance. Will do PA for Ozempic. I fixed her pump settings in the alex and updated AIT to 3 hrs. We reviewed again food bolusing, she sometimes exits auto mode so she can do extended bolus for high fat meal. But the pump itself in auto mode should have similar effect of extended bolus, or she can do dual wave if needed, 50% of the bolus at time of eating, 50% 1 hr later if blood sugar is >200. Update routine labs and request eye exam. Assessment & Plan (09/05/2023 2:02 PM CDT): Chronic, stable Increae Ozempic to 2 mg wkly In BG start dropping, pt to adjust basal by lowering it 20 % Continue Jardiance, Risk of DKA discussed Pt to check ketones, in case of abdominal pain, n /v Continue pump at current settings. Assessment & Plan (05/09/2023 10:23 AM PRODUCTION CONSULTANT): Chronic problem, generally stable. Recommend she stay in automated mode as much as possible. She should not need to extend boluses as much anymore since on an integrated system. She can try entering the carbs she thinks she will be able to eat (sometimes not able to get full meal or gets nauseated), then enter rest in after eating if higher amount. Assessment & Plan (01/02/2023 10:16 AM CDT): Chronic stable problem. She feels Ozempic 1 mg worked better for her than Mounjaro so wants to switch back. Rx sent. She also continues to use phentermine prn (maybe 2-3x/week) on her hungry days . We discussed her diet and exercise routine. Assessment & Plan (08/30/2022 4:32 PM CDT): Chronic problem, stable per A1c. Lows seems typically to be pC when she boluses for more than she ends up eating. We discussed strategies for this. She is interested in trying Mounjaro for weight loss, has tolerated Ozempic 0.5 mg well and stomach issues are actually doing better lately. Start 2.5 mg weekly x 4 weeks, then can walk up dose slowly as tolerated which we discussed. She will email in for dose adjustment between visits. Her control is very good so integrated system is not necessary, but she does have issues with gastroparesis and especially pC lows depending on food absorption. She already uses G6 alex on her phone and is interested in upgrading. I sent in rx's and she can do e-learning upgrade but will let us know if she has any issues. Update routine labs. Assessment & Plan (03/29/2022 2:34 PM PRODUCTION CONSULTANT): Chronic problem, very well controlled. Will lower BR per below. Also dicussed her bolusing habits. For meals with more carbs should try to deliver at least 50% of the bolus at time of eating to prevent PPG spike. Assessment & Plan (11/23/2021 2:08 PM CDT): Chronic problem, stable w/o hypoglycemia. Rx sent in for Ozempic, she will see first if she can get this covered. If she can, try 0.25 mg for 4 weeks to see how she tolerates (historically has GI issues with new medications) and increase to 0.5 mg if tolerated. We discussed pump adjustments as needed, she will call if having hypoglycemia. Will send request for phentermine to Dr. Saini. Assessment & Plan (09/12/2021 1:16 PM CDT): Patient has well controlled T2DM on insulin pump. Follows with Kurt Saini. Her pump setting at home is: Basal 12a 1.0, 12p 1.2 ICR 1:8, SF 25, T 100-150 - will continue insulin pump. Endocrine managing. - continue Farxiga Assessment & Plan (09/10/2021 12:15 PM CDT): Patient has well controlled T2DM on insulin pump. Follows with Kurt Saini. Her pump setting is Basal 12a 1.0, 12p 1.2 IC 8 SF 25 T 100 - will continue insulin pump. Endo consulted Assessment & Plan (06/22/2021 2:29 PM CDT): Chronic problem. Per her history and download she is overall in very good range with minimal hypoglycemia. Her A1c is 5.2% though and struggling to lose further weight, as well as noticing some pC variability based on food absorption. Will see if SGLT2i is covered now, and lowered insulin per below. Reviewed acceptable CBG targets and avoiding over-insulinization/ hypoglycemia. She will send a note in a few weeks with how this is working for her. Assessment & Plan (03/30/2021 4:10 PM PRODUCTION CONSULTANT): Hba1c was Lab Results Component Value Date HGBA1C 5.6 % 03/30/2021 today, indicating adequate DM control with hypoglycemia Goal Hba1c and blood glucose explained Diet and exercise were advised Prevention and treatment of hyypoglcyemia were discussed with the patient Blood glucose monitoring : Dexcom Adjustment to medications: BASALS 12AM 1.1 12PM 1.3 IC 7 CF 20 Start Ozempic 0.25 mg weekly x 4 weeks, then continue with 0.5 mg weekly If you have severe nausea, vomiting , abdominal pain and/or diarrhea, stop the medication and call the office. Patient to send me a message in about 3-4 wks to let me know how she is tolerating Ozempic before sending the prescription. Start phentermine. Assessment & Plan (10/27/2020 3:06 PM CDT): A1c 5.7 without hypoglycemia. Advised to check urine at home for ketones and strive to keep at trace to small. Add more carb to diet and increase exercise more slowly. BG goals ac and pc reviewed. Consider GLP1 at NOV once ketones resolved. Assessment & Plan (07/28/2020 3:23 PM CDT): Hba1c was Lab Results Component Value Date HGBA1C 6.4 07/28/2020 today, indicating adequate DM control Goal blood sugars in the 120-150 range , with Hb1c under 7.0 % was explained 1800 calorie, consistent carb diet recommended. No more than 30-45 grams of carbs per meal recommended, as well as avoiding high concentrated sweet drinks . 25-45 min daily exercise, combining both aerobic and resistance exercise recommended. The need to monitor blood glucose before meals and bedtime was discussed. Prevention and treatment of hyypoglcyemia discussed. Continue insulin pump at current settings Start Jardiance Might have to adjust dose of insulin Assessment & Plan (03/26/2020 10:34 PM PRODUCTION CONSULTANT): A1c 6.7. Basal pattern above goal. Will increase basal rate. Will additionally order dexamethasone suppression test to r/o Mary[facility] as this might also be impacting glycemic control. Conferred with Dr. Parveen VIRGEN to order Assessment & Plan (01/27/2020 3:17 PM PRODUCTION CONSULTANT): Basal pattern above goal. PC excursions acceptable. Will adjust settings and advised to upload pump q 2-4 weeks for evaluation. Assessment & Plan (12/25/2019 11:41 AM CDT): Demonstrates appropriate ability to fill and insert infusion set. Understands concepts of basal vs. Bolus and is able to enter BG and carbs into pump. Has been provided with contact information for insulin pump outside medical sales representative and how to reach our office after hours if any issues arise with BG. Has injectable basal insulin at home and understands to contact office in the event of pump failure so that appropriate basal dose can be determined. Advised follow up appt in office in one to two weeks so settings can be evaluated and adjusted as indicated. Total face to face time = 72 minutes 9:08-10:20 Greater than 50% of visit was spent counseling pt. Counseling consisted of filling of infusion set, entering carbs and BG levels, troubleshooting hyperglycemia, importance of follow up appointment in 2 weeks. Assessment & Plan (12/14/2019 3:48 PM CDT): A1c improved to 8.0, down 3%. Continue to adjust insulin as previously instructed to keep fasting/ac BG in lower 100's. Advised to scan sensor 2 hours pc and to make a concerted effort to manage diet and exercise better. Assessment & Plan (10/29/2019 12:11 PM CDT): Hba1c was Lab Results Component Value Date HGBA1C 11.0 (A) 10/29/2019 today, indicating Poor DM control 1800 calorie, consistent carb diet recommended. No more than 30-45 grams of carbs per meal recommended, as well as avoiding high concentrated sweet drinks . 25-45 min daily exercise, combining both aerobic and resistance exercise recommended. The need to monitor blood glucose before meals and bedtime was discussed. Prevention and treatment of hyypoglcyemia discussed. Insulin dose: Adjust insulin as follows: Levemir, 35 units twice a day Take Humalog, 10 units with meals if sugars are over 100. If sugars under 80, do not take any For sugars over 150, take 12 units For sugars over 200, take 16units For sugars over 250, take 20 units For sugars over 300, take 24 units For sugars over 350 , take 28 units If sugars, before meals, are persistently over 160, increase each range of the sliding scale by 4 units ,every 3 days. If morning sugars are persistently over 150, increase bedtime Levemir by 3 units every 3 days until morning sugars are persistently under 150 Will also request OmniPod insulin pump paperwork to start Assessment & Plan (09/22/2019 1:05 PM CDT): Hba1c was Lab Results Component Value Date HGBA1C 11.0 09/22/2019 today, indicating very poor DM control 1800 calorie, consistent carb diet recommended. No more than 30-45 grams of carbs per meal recommended, as well as avoiding high concentrated sweet drinks . 25-45 min daily exercise, combining both aerobic and resistance exercise recommended. The need to monitor blood glucose before meals and bedtime was discussed. Will request Freestyle Sofie CGM Prevention and treatment of hyypoglcyemia discussed. Take Levemir, 25 units twice a day, morning and bedtime Take Novolog, 6 units before meals and add as follows: For sugar over 150, add 4 units For sugars over 200, Add 6 units For sugars over 250, add 8 units For sugars over 300, add 10 units For sugars over 400 ( or HI ) , add 12 units Fax sugar logs weekly Stop glimepiride BMI 38.0-38.9,adult 06/04/2019 Assessment & Plan (09/10/2021 11:34 PM CDT): Patient is s/p gastric sleeve and has been intolerant of GLP 1. Currently on fraxiga, continue Assessment & Plan (09/10/2021 12:11 PM CDT): Patient is s/p gastric sleeve and has been intolerant of GLP 1. Currently on fraxiga, continue Assessment & Plan (10/27/2020 3:03 PM CDT): Continue recommendations from surgeon Assessment & Plan (07/28/2020 3:24 PM CDT): Diet and exercise were discussed. 1200 Calorie diet advised 45-60 min aerobic / resistance exercise most days of the week recommended. Bariatric surgery medically indicated Will send referral to bariatric center a [facility] Start Phentermine Assessment & Plan (03/26/2020 10:31 PM PRODUCTION CONSULTANT): Wt. Continues to increase. Importance of following diet and exercising discussed. Abscess of vulva 05/06/2019 Wound dehiscence 04/20/2019 Overview (12/24/2022): Disruption of wound, unspecified, initial encounter;Recorded Elsewhere: No Location: [facility] Source: EHR Chronic: N Practice ID: [id number] Billable Time: 05:00:00 PM Abscess of buttock 04/15/2019 Gastroesophageal reflux disease without esophagi tis 07/18/2017 Hemorrhoids 03/13/2017 Irritable bowel syndrome 03/13/2017 Hematochezia 10/19/2016 Routine general medical exam ination at a health care facility 01/05/2016 Seasonal allergic rhinitis due to pollen 016 Severe recurrent major depre ssion without psychotic features 01/03/2016 Resolved Problems Problem Noted Date Diagnosed Date Resolved Date Acute sinusitis 11/23/2021 07/25/2022 Injury of hand 11/23/2021 07/25/2022 Rash 11/23/2021 07/25/2022 Sinus headache 11/23/2021 07/25/2022 Stomach cramps 11/23/2021 07/25/2022 Viral gastroenteritis 11/23/20212022 Hypoglycemia due to type 1 d iabetes mellitus ([facility]) 09/10/2021 02/11/2024 Morbid obesity 06/04/2019 07/25/2022 Assessment & Plan (06/22/2021 2:27 PM CDT): Chronic problem, improving s/p gastric sleeve. Intolerant of GLP1. Will try lowering insulin dose and adding SGLT2i to see if further benefit. Assessment & Plan (03/26/2020 10:24 PM PRODUCTION CONSULTANT): No change. Importance of following diet and exercising discussed. Assessment & Plan (12/14/2019 3:42 PM CDT): Needs to be more focused on increasing to daily exercise and limiting calories. Acute vaginitis 04/04/2016 07/25/2022 Nausea and vomiting 02/16/2016 07/26/19 23 Encounters Date Type Department Care Team Description 02/24/2024 7:22 AM PRODUCTION CONSULTANT Hospital Encounter [facility] [address] [place] [address] Mesfin Epstein NP Cervical radiculopathy (Primary Dx); Lumbar radiculopathy; Cervical myofascial pain syndrome 02/20/2024 11:49 AM PRODUCTION CONSULTANT - 02/20/2024 11:59 PM PRODUCTION CONSULTANT Hospital Encounter [address] [address] Acute nasopharyngitis Discharge Disposition: Discharge to home or self care 02/20/2024 11:15 AM PRODUCTION CONSULTANT Office Visit [facility] Care at [address] [phone] Angelita Schilling NP Acute nasopharyngitis (Primary Dx) 02/19/2024 Documentation [facility] [address] [place] [address] [place] [address] Rosa Ortiz 02/19/2024 Telephone [facility] [address] [place] [address] Tania Shell RN 02/18/2024 9:00 AM PRODUCTION CONSULTANT [facility] [address] [address] Deedee Hussein PA Type 2 diabetes mellitus with hyperglycemia, with long-term current use of insulin (HCC) (Primary Dx); Hypertension associated with diabetes (HCC); Insulin pump in place; Hyperlipidemia associated with type 2 diabetes mellitus (HCC) 02/18/2024 Orders Only [facility] [address] [place] [address] [place] [address] [place] [address] Yancy Desai MD Gastroparesis (Primary Dx); Gastroesophageal reflux disease without esophagitis; Constipation, unspecified constipation type 02/18/2024 Telephone [facility] [address] [address] Deedee Hussein PA Prior Auth (Ozempic) 02/18/2024 Orders Only [facility] Diabetes and Endocrinology [address] [place] [phone] Lynn Moon MD 02/18/2024 Telephone [facility] Diabetes [facility] Endocrinology [address] [place] [phone] Deedee Hussein PA Test Results (Labs) 02/12/2024 9:40 AM PRODUCTION CONSULTANT Office Visit [facility] [address] [place] [address] [place] [phone] Yancy Desai MD Gastroparesis (Primary Dx); Gastroesophageal reflux disease without esophagitis; Other irritable bowel syndrome; Nausea and vomiting, unspecified vomiting type; Constipation, unspecified constipation type 01/10/2024 Telephone [facility] [address] [place] [address] [place] [phone] Carmelita Lopez (Motegrity 2MG tablets ) 01/07/2024 8:25 AM CDT - 01/07/2024 11:59 PM CDT Hospital Encounter [facility] [address] [place] [phone] Mesfin Epstein NP Cervical radiculopathy (Primary Dx); Chronic pain syndrome; Lumbar radiculopathy; Myofascial pain Discharge Disposition: Discharge to home or self care from Last 3 Months Immunizations Name Administration Dates Next Due DTP 08/30/1986, 4,1981,08/18,1981 Influenza, Trivalent, IM (MDV) 11/28/2012 Influenza, Trivalent, Preser vative Free, Intramuscular 11/25/2014,12/21/2013 Influenza, Unspecified 03/11/2014,03/11/2013 Neptune (J&J) SARS-CoV-2 Vaccination 05/13/2020 MMR 07/22/1991,09/28/1982 OPV 08/30/1986, 4,1981,08/18,1981 Pneumococcal Conjugate, Unspecified 03/11/2013 Pneumococcal Polysaccharide PPV23 10/30/2013 Td, adsorbed 09/24/1995 Tdap 10/30/2013 Tetanus Toxoid, Unspecified 03/11/2013 Surgical History Surgery Date Site/Laterality Comments ADENOIDECTOMY adenoidectomy TONSILLECTOMY tonsillectomy ORAL SURGERY Oral Surgery COLONOSCOPY 2007 SINUS SURGERY 2015 GASTRECTOMY BARIATRIC SURGERY 09/07/20 LUMBAR PUNCTURE WO INJECTION, DIAGNOSTIC 09/07/2021 N/A Medical History Medical History Date Comments Hypercholesterolemia Asthma Type 2 diabetes mellitus (HCC) I nsulin pump Anxiety and depression Cough Diarrhea Numbness and tingling Pain with urination Fatigue Hypertension Migraines Seizure (HCC) Muscle pain Back pain GERD (gastroesophageal reflux disease) TMJ dysfunction PONV (postoperative nausea and vomiting) Chronic constipation Infection Kidney stone Menstrual problem Family History Medical History Relation Name Comments Asthma Father Car COPD Father Car Depression Father Car Diabetes Father Car Heart attack Father Car Family history of myocardial infarction - (Added by TW Conv) Hypertension Father Car Migraines Father Car Obesity Father Car Stroke Father Car Glaucoma Maternal Grandmother Mimi Hearing loss Maternal Grandmother Mimi Macular degeneration Maternal Grandmother Mimi smoker Mother Hypertension Sister 1 Family history of hypertension - (Added by TW Conv) Depression Sister 2 Family history of depression - (Added by TW Conv) Mental illness Sister 3 FH: mental il lness - (Added by TW Conv) Migraines Sister 4 Family history of migraine headaches - (Added by TW Conv) Hypertension Sister 5 Family history of hypertension - (Added by TW Conv) Depression Sister 6 Jesika Hypertension Sister 6 Jesika Mental illness Sister 6 Jesika Obesity Sister 6 Jesika Relation Name Status Comments Father Car Maternal Grandmother Mimi Mother Alive Other Alive Sister 1 Sister 2 Sister 3 Sister 4 Sister 5 Sister 6 Jesika Social History Tobacco Use Types Packs/Day Years Used Date Smoking Tobacco: Former Cigarettes Smokeless Tobacco: Never Tobacco Cessation:Counseling Given: Not Answered Comments:Randomly in late high school Alcohol Use Standard Drinks/Week Comments [...] on file Legal Sex Female 10:18 AM PRODUCTION CONSULTANT Gender Identity Female 09/21/2019 9:02 PM CDT Sexual Orientation Not on file Occupation Industry Job Start Date Job End Date [employer] Not on file Not on file Not on file Obstetrics History Last Filed Vital Signs Vital Sign Reading Time Taken Comments Blood Pressure 155/105 02/24/2024 7:28 AM PRODUCTION CONSULTANT hasnt taken bp meds Pulse 94 02/24/2024 7:28 AM PRODUCTION CONSULTANT Temperature 36.6 ??C (97.9 ??F) 02/20/2024 1 1:16 AM PRODUCTION CONSULTANT Respiratory Rate 15 02/24/2024 7:28 AM PRODUCTION CONSULTANT Oxygen Saturation 100% 02/24/2024 7:2 8 AM PRODUCTION CONSULTANT Inhaled Oxygen Concentration - - Weight 98.9 kg (218 lb) 02/20/2024 11:1 6 AM PRODUCTION CONSULTANT Height 162.6 cm (5' 4 ) 02/20/2024 11:1 6 AM PRODUCTION CONSULTANT Body Mass Index 37.42 02/20/2024 11:16 AM PRODUCTION CONSULTANT Plan of Treatment Health Maintenance Due Date Last Done Comments Breast Cancer Screening-Mammogram 1981 Cervical Cancer Screening 1981 Hepatitis C Screening 1981 Varicella Vaccines (1 of 2 - 13+ 2-dose series) 1994 Hepatitis B Screening 1999 Regular Well Visit/Exam 18-64 1999 Zoster Vaccine (1 of 2) 2000 Pneumococcal vaccine <65 (3 of 3 - PPSV23 or PCV20) 10/30/2018 10/30/2013, 03/11/2013 Dilated Eye Exam 07/20/2023 07/19/2022 Albumin Creatinine Ratio, Urine 09/25/2023 09/24/2022, 06/09/2021, 12/07/2019 Lipid Panel 09/25/2023 09/24/2022, 06/2 03/2022, 09/09/2021, Additional history exists DTaP/Tdap/Td Vaccine (7 - Td or Tdap) 10/31/2023 10/30/2013, 09/24/1995, 08/30/1986, Additional history exists Covid-19 Vaccine ( season) 2023 05/05/2021, 05/13/2020 Influenza Vaccine (#1) 2023 , 11/30/2020, 11/25/2014, Additional history exists Hemoglobin A1C 08/18/2024 02/18/2024, 08/10, 05/09/2023, Additional history exists eGFR 02/15/2025 02/16/2024, 09/08, 09/12/2021, Additional history exists Depression Screening 02/17/2025 02/18/2024, 09/05/2023, 05/09/2023, Additional history exists Foot Exam 02/17/2025 02/18/2024, 12/10, 11/23/2021, Additional history exists HPV Vaccines Aged Out No longer eligi ble based on patient's age to complete this topic Medical Devices Implanted Type Area Tappet Adjuster Device Identifier Shelf Expiration Date Model / Serial / Lot Iud Cervix Procedures Procedure Name Priority Date/Time Associated Diagnosis Comments INFLUENZA A/B, RSV, AND COVID-19 PCR Routine 02/20/2024 11:49 AM PRODUCTION CONSULTANT Acute nasopharyngitis THROAT CULTURE Routine 02/20/2024 11:49 AM PRODUCTION CONSULTANT Acute nasopharyngitis POCT RAPID STREP Routine 02/20/2024 11:4 3 AM PRODUCTION CONSULTANT Acute nasopharyngitis POCT HEMOGLOBIN A1C Routine 02/18/2024 9 :38 AM PRODUCTION CONSULTANT Type 2 diabetes mellitus with hyperglycemia, with long-term current use of insulin (HCC) POCT GLUCOSE Routine 02/18/2024 9:35 AM PRODUCTION CONSULTANT Type 2 diabetes mellitus with hyperglycemia, with long-term current use of insulin (HCC) COMPREHENSIVE METABOLIC PANEL Routine 02/16/2024 12:41 PM PRODUCTION CONSULTANT LIPID PANEL Routine 09/24/2022 8:39 AM CDT Type 2 diabetes mellitus with hyperglycemia, with long-term current use of insulin ([facility]) ([facility]) ALBUMIN CREATININE RATIO, URINE Routine 09/24/2022 8:39 AM CDT Type 2 diabetes mellitus with hyperglycemia, with long-term current use of insulin ([facility]) ([facility]) DIABETES EYE EXAM Routine 07/19/2022 8:49 AM CDT from Last 3 Months or Most Recently Relevant to Health Maintenance Results * Influenza A/B, RSV, and COVID-19 PCR Nasopharyngeal (02/20/2024 11:49 AM PRODUCTION CONSULTANT) COVID-19 RNA Negative Negative Influenza A RNA Negative Negative [facility] Influenza B RNA Negative Negative [facility] RSV RNA Negative Negative [facility] Comment: Interpretive data: Testing performed by [facility]. This test is performed using the [employer] Xpert Xpress CoV-2/Flu/RSV plus assay. This is a multiplex, real-time reverse transcriptase PCR assay intended for the qualitative detection of nucleic acid from SARS-CoV-2, influenza A, influenza B, and respiratory syncytial virus. This assay has been cleared by the [place] Food and Drug administration. The performance characteristics have been verified by the [facility]. ??Results must be considered in the clinical context, and a negative result does not rule out infection. Interpretive Data last revised 2023 Nasopharyngeal 02/20/2024 11 :49 AM PRODUCTION CONSULTANT 02/20/2024 3:05 PM PRODUCTION CONSULTANT Narrative [facility] - 02/20/2024 4:07 PM PRODUCTION CONSULTANT Is the Patient experiencing symptoms consistent with COVID?->Yes us Angelita Schilling NP LAB MICROBIOLOGY - GENERAL АННА DEL CID Final Result [facility]LE[facility] [address] Department [place] [address] * Throat culture Throat (02/20/2024 11:49 AM PRODUCTION CONSULTANT) Report Final Report: No growth of pathogens. Comment:Testing performed by : [facility], [address], [place]., [address] Throat 02/20/2024 11:4 9 AM PRODUCTION CONSULTANT 02/20/2024 6:18 PM PRODUCTION CONSULTANT Narrative [facility]LEEN Márquez 02/21/2024 3:15 PM PRODUCTION CONSULTANT Testing performed by [facility] Laboratory ([phone]). us Angelita Schilling NP LAB MICROBIOLOGY - GENERAL ORDE RABLES Final Result [facility] [address] Department [place] [address] * POCT rapid strep A (02/20/2024 11:43 AM PRODUCTION CONSULTANT) Rapid Strep A, POC Negative Negative Swab 02/20/2024 11:4 3 AM PRODUCTION CONSULTANT us Angelita Schilling NP POINT OF CARE TEST ORDERABLES F inal Result * POCT hemoglobin A1c (02/18/2024 9:38 AM PRODUCTION CONSULTANT) Hemoglobin A1C, POC 6.0 4.0 - 5.6 % Blood 02/18/2024 9:38 AM PRODUCTION CONSULTANT Deedee DOWELL POINT OF CARE TEST ORDE RABJOSÉ Final Result * POCT glucose (02/18/2024 9:35 AM PRODUCTION CONSULTANT) Glucose Blood, POC 135 mg/dL Blood 02/18/2024 9:35 AM PRODUCTION CONSULTANT us Deedee DOWELL POINT OF CARE TEST ORDE RABJOSÉ Final Result * (ABNORMAL) Comprehensive metabolic panel (02/16/2024 12:41 PM PRODUCTION CONSULTANT) SCRIBED Sodium 140 136 - 145 mmol/L EXTERNAL LAB SCRIBED Potassium 4.2 3.4 - 5.1 mmol/L EXTERNAL LAB SCRIBED Chloride 106 98 - 107 mmol/L EXTERNAL LAB SCRIBED Carbon Dioxide 24 22 - 29 mmol/L EXTERNAL LAB SCRIBED Anion Gap 10 8 - 16 mmol/L EXTERNAL LAB SCRIBED Urea Nitrogen (BUN) 11 6 - 20 mg/dl EXTERNAL LAB SCRIBED Creatinine 1.00(A) 0.51 - 0.95 mg/dl EXTERNAL LAB SCRIBED Glucose 138(A) 74 - 99 mg/dl EXTERNAL LAB SCRIBED Calcium 9.1 8.6 - 10.4 mg/dl EXTERNAL LAB SCRIBED Bilirubin 0.5 0.3 - 1.2 mg/dl EXTERNAL LAB SCRIBED Plasma Protein 6.7 6.3 - 8.7 g/dl EXTERNAL LAB SCRIBED Albumin 4.0 3.5 - 5.2 g/dl EXTERNAL LAB SCRIBED Alkaline Phosphatase 69 40 - 150 Units/L EXTERNAL LAB SCRIBED Alanine Transaminase (ALT) 23 0 - 33 Units/L EXTERNAL LAB SCRIBED Aspartate Transaminase (AST) 29 0 - 33 Units/L EXTERNAL LAB SCRIBED eGFR in NonAfrican [place] >60 >=60 - NA EXTERNAL LAB Blood 02/16/2024 12:4 1 PM PRODUCTION CONSULTANT Historical Provider MD LAB BLOOD ORDERABLES Edit ed Result - Final EXTERNAL LAB * Albumin Creatinine Ratio, Urine (09/24/2022 8:39 AM CDT) Albumin Ur 23.4 mg/L [facility] Comment: Interpretive Data No reference range established. Current interpretive data was last revised 2018. Creatinine Ur 165.9 mg/dL [facility] Comment: Interpretive Data No reference range established. Current interpretive data was last revised 2018. Albumin Creatinine Ratio, Ur 14 1 - 29 mg/g [facility] Urine 09/24/2022 8:39 AM CDT 09/24/2022 3:18 PM CDT Deedee DOWELL LAB URINE ORDERABLES Fi nal Result [facility] [address] [facility] [place] [address] * Lipid panel (09/24/2022 8:39 AM CDT) Cholesterol 169 30 - 199 mg/dL [facility] ZHAO Comment: Interpretive Data Ages < or = 19 years ??Acceptable: ? <170 mg/dL ??Borderline high: ??170-199 mg/dL ??High: ? >or= 200 mg/dL Ages > or = 20 years ??Desirable: ?<200 mg/dL ??Borderline high: ??200-239 mg/dL ??High: ? >or= 240 mg/dL Literature References: 1. Expert Panel on Integrated Guidelines for Cardiovascular Health and Risk Reduction in Children and Adolescents. Pediatrics 2011;128:S213 2. NCEP Expert Panel. Circulation 2004;110:227 Current Interpretive Data was last revised on 2017. Triglycerides 139 <=149 mg/dL [facility] ZHAO Comment: Interpretive Data Ages < or = 9 years ??Acceptable: ? <75 mg/dL ??Borderline high: ??75-99 mg/dL ??High: ? >or= 100 mg/dL Ages 10 to 20 years ??Acceptable: ? <90 mg/dL ??Borderline high: ??90-129 mg/dL ??High: ? >or= 130 mg/dL Ages > or = 20 years ??Desirable: ?<150 mg/dL ??Borderline high: ??150-199 mg/dL ??High: ? 200-499 mg/dL ?Very high: ?? >or= 499 mg/dL Literature References: 1. Expert Panel on Integrated Guidelines for Cardiovascular Health and Risk Reduction in Children and Adolescents. Pediatrics 2011;128:S213 2. NCEP Expert Panel. Circulation 2004;110:227 Current Interpretive Data was last revised on 2017. HDL 41 >=40 mg/dL [facility] Comment: Interpretive Data Ages < or = 19 years ??Acceptable: ? >45 mg/dL ??Borderline low: ?? 40-45 mg/dL ??Low: ? <40 mg/dL Ages > or = 20 years ??Desirable: ?>or= 60 mg/dL ??Low: ? <40 mg/dL Literature References: 1. Expert Panel on Integrated Guidelines for Cardiovascular Health and Risk Reduction in Children and Adolescents. Pediatrics 2011;128:S213 2. NCEP Expert Panel. Circulation 2004;110:227 Current Interpretive Data was last revised on 2017. LDL, calculated 100 <=129 mg/dL [facility] Comment: Interpretive Data Ages < or = 19 years ??Acceptable: ? <110 mg/dL ??Borderline high: ??110-129 mg/dL ??High: ?>or= 130 mg/dL Ages > or = 20 years ??Optimal: ? <100 mg/dL ??Near optimal: ?100-129 mg/dL ??Borderline high: ?? 130-159 mg/dL ??High: ?>160 mg/dL Literature References: 1. Expert Panel on Integrated Guidelines for Cardiovascular Health and Risk Reduction in Children and Adolescents. Pediatrics 2011;128:S213 2. NCEP Expert Panel. Circulation 2004;110:227 Current Interpretive Data was last revised on 2017. Non-HDL Cholesterol 128 mg/dL [facility] Comment: Interpretive Data Ages < or = 19 years ??Acceptable: ?<120 mg/dL ??Borderline high: ??120-144 mg/dL ??High: ?>145 mg/dL Ages > or = 20 years ??When triglycerides are >200 mg/dL, Non-HDL cholesterol is a secondary target of ? therapy with treatment goals that are 30 mg/dL greater than the LDL cholesterol target. ? Literature References: 1. Expert Panel on Integrated Guidelines for Cardiovascular Health and Risk Reduction in Children and Adolescents. Pediatrics 2011;128:S213 2. NCEP Expert Panel. Circulation 2004;110:227 Current Interpretive Data was last revised on 2017. Chol/HDL ratio 4 [facility] ZHAO Blood 09/24/2022 8:39 AM CDT 09/24/2022 3:18 PM CDT Deedee DOWELL LAB BLOOD ORDERABLES nal Result [facility] ZHAO [address] Department [place] [address] * (ABNORMAL) DIABETES EYE EXAM (07/19/2022 8:49 AM CDT) Historical Provider HEALTH MAINTENANCE Edited Result - Final from Last 3 Months or Most Recently Relevant to Health Maintenance Insurance [employer] HMO/POS [employer] HMO/POS Advance Directives For more information, please contact: [phone] * Full Code (Latest Code Status on File) Date Activated Date Inactivated Comments 11/01/2022 9:49 AM 11/01/2022 4:55 PM * Full Code Date Activated Date Inactivated Comments 09/09/2021 9:24 PM 09/12/2021 7:37 PM Care Teams Office Support Assistant Relationship Specialty Start Date End Date Deedee Low PA PCP - General 03/13/17
--- OUTSIDE RECORDS SUMMARY | 2024-02-24 17:10 | XMS_ITS | Encounter Summary ---
Author Organization [facility] Healthcare Address [address] [place] [address] Care Team Providers Care Release Of Information Specialist Name Role Phone Deedee Low Primary Care Pr ovider Encounter Details Date Type Department Care Team (Late Contact Info) Description 09/11/2023 Telephone [facility] [place] [facility] [place] [facility] [address] [facility] [address] [place] [phone] [place] [id number] [id number] Social History Tobacco Use Types Packs/Day Years Used Date Smoking Tobacco: Former Cigarettes Smokeless Tobacco: Never Comments:Randomly in late [facility] school Alcohol Use Standard Drinks/Week Comments [...] on file Legal Sex Female 10:18 AM 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 Authorization Expiration Date: September 25, 2023. * Telephone Encounter - Anusha Rahman MA - 09/11/2023 12:02 PM CDT PA has been started through the [facility] BONDS:[id number] documented in this encounter Plan of Treatment Not on file documented as of this encounter Visit Diagnoses Not on filedocumented in this encounter Care Teams Release Of Information Specialist Relationship Specialty Start Date End Date Deedee Low PA PCP - General 03/13/17 documented as of this encounter
--- OUTSIDE RECORDS SUMMARY | 2024-02-24 17:10 | XMS_ITS | Encounter Summary ---
Author Organization [facility] Address [address] [place] [address] Phone Care Team Providers Care Hoop Rolls Operator Name Role Phone Deedee Low Primary Care Pr ovider Encounter Details Date Type Department Care Team (Late st Contact Info) Description 02/19/2024 Documentation [facility] [address] 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 [id number] DEGRADATION ANALYST documented in this encounter Plan of Treatment Not on file documented as of this encounter Visit Diagnoses Not on filedocumented in this encounter Care Teams Hoop Rolls Operator Relationship Specialty Start Date End Date Deedee Low PA PCP - General 03/13/17 documented as of this encounter
--- OUTSIDE RECORDS SUMMARY | 2024-02-24 17:10 | XMS_ITS | Encounter Summary ---
Author Organization [facility] Healthcare Address [address] [place] [address] Care Team Providers Care Beauty Sales Consultant Name Role Phone Deedee Low Primary Care Pr ovider Reason for Visit * Reason Comments Diabetes Type 2 Encounter Details Date Type Department Care Team (Late Contact Info) Description 02/18/2024 9:00 AM LUTE PACKER OR APPLIER Office Visit [facility] [place] [facility] [id number] [place] [phone] [place] [id number] [place] [id number] Type 2 diabetes mellitus with hyperglycemia, with long-term current use of insulin (HCC) (Primary Dx); Hypertension associated with diabetes (HCC); Insulin pump in place; Hyperlipidemia associated with type 2 diabetes mellitus (HCC) Social History Tobacco Use Types Packs/Day Years Used Date Smoking Tobacco: Former Cigarettes Smokeless Tobacco: Never Comments:Randomly in late [employer] [facility] [employer] school Alcohol Use Standard Drinks/Week Comments Yes [...] on file Legal Sex Female 10:18 AM LUTE PACKER OR APPLIER Gender Identity Female 09/21/2019 9:02 PM CDT Sexual Orientation Not on file 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 Not on file Not on file documented as of this encounter Last Filed Vital Signs Vital Sign Reading Time Taken Comments Blood Pressure 122/80 02/18/2024 9:27 AM LUTE PACKER OR APPLIER Pulse 84 02/18/2024 9:27 AM LUTE PACKER OR APPLIER Temperature - - Respiratory Rate - - Oxygen Saturation - - Inhaled Oxygen Concentration - - Weight 99 kg (218 lb 3.2 oz) 02/18/2024 9:27 AM LUTE PACKER OR APPLIER Height 162.6 cm (5' 4.02 ) 02/18/2024 9:27 AM CS T Body Mass Index 37.44 02/18/2024 9:27 AM LUTE PACKER OR APPLIER documented in this encounter Patient Instructions * Patient Instructions* Deedee Hussein PA - 02/18/2024 9:00 AM LUTE PACKER OR APPLIER Switch to Farxiga to replace Jardiance. Send me an email if they need a PA for this. Current settings: Basal rates 12a 0.8, 12p 1.1 Carb ratio 8 Correction factor 25 Target 110, correct above 150 Active insulin time 3 hrs Max basal rate: 2.5 units/hour Max bolus: 25 units PACKER OR APPLIER PACKER OR APPLIER documented in this encounter Ordered Prescriptions Prescription Sig Dispense Quantity Refills Last Filled Start Date End Date semaglutide (OZEMPIC) 2 mg/dose (8 mg/3 mL) pen injector injection Inject 2 mg under the skin every 7 days 3 mL 11 02/18/2024 dapagliflozin propanediol (FARXIGA) 10 mg tablet Take 1 tablet (10 mg total) by mouth daily 30 tablet 11 02/18/2024 documented in this encounter Progress Notes * Deedee Hussein PA - 02/18/2024 9:00 AM CST Images from the original note were not included. [facility] Diabetes Follow Up Visit Subjective/Objective Patient ID: Alannah Ruano is a 43 y.o. female who comes in today to our Endocrinology clinic tofollow up for DM management. Chief Complaint Diabetes Type 2 HPI Had an issue with the myRete alex, had to delete and reinstall it, all her settings were erased. Also having trouble with her medications at the pharmacy. Diabetes complications and/or comorbidity include: s/p gastric sleeve 08/29 (285 lbs prior to surgery, lowest 205 lbs), gastroparesis, macular edema. Current medications: Jardiance 25 mg - not covered, needs to switch to Farxiga. Ozempic 2 mg weekly - not taking, needs PA. Novolog via Omnipod 5 insulin pump Basal 12a 0.8, 12p 1.1 IC 8 SF 25 - was set at 5 T 110, correct above 150 AIT 5 hrs Also on phentermine, takes intermittently on her hungry days . Dietary habits: unchanged Exercise routine: unchanged Home CBG monitoring results: checks blood sugars 4x/day via Dexcom. Overnight pattern: generally in range Postprandial pattern: more variability off Ozempic No severe hypoglycemia. Neuropathy: Last foot exam: 03/03 Statin therapy: Yes. Atorvastatin 40 mg. Last lipid panel: 09/30. Nephropathy: On MITESH-I / ARB???s: Yes. Losartan 50 mg. Last MA: 09/30. Last creat/GFR: 03/03. Retinopathy: Date of last eye examination: 01/01 HTN - on losartan, propranolol, HCTZ. Wt Readings from Last 5 Encounters: 02/18/24 99 kg (218 lb 3.2 oz) 02/12/24 98.9 kg (218 lb) 01/07/24 100.8 kg (222 lb 3.2 oz) 10/07/23 98.9 kg (218 lb) 09/05/23 99.2 kg (218 lb 11.2 oz) Labs: Last A1c: Lab Results Component Value Date HGBA1C 6.0 02/18/2024 HGBA1C 5.8 09/05/2023 HGBA1C 5.6 05/09/2023 HGBA1C 5.4 01/02/2023 HGBA1C 5.4 08/30/2022 Microalbumin: Lab Results Component Value Date MICROALBUR 18.3 12/07/2019 Lab Results Component Value Date ALBCREATRATU 14 09/24/2022 Lab Results Component Value Date MALBCRTRAT 173 (H) 12/07/2019 Lipid profile: Lab Results Component Value Date CHOL 169 09/24/2022 Lab Results Component Value Date TRIG 139 09/24/2022 Lab Results Component Value Date HDL 41 09/24/2022 Lab Results Component Value Date LDLCALC 100 09/24/2022 Vitals: 02/18/24926 BP: 122/80 BP Location: Right arm Patient Position: Sitting Pulse: 84 Weight: 99 kg (218 lb 3.2 oz) Height: 162.6 cm (5' 4.02 ) Physical Exam Vitals reviewed. Constitutional: General: She is awake. Appearance: Normal appearance. HENT: Head: Normocephalic and atraumatic. Cardiovascular: Rate and Rhythm: Normal rate and regular rhythm. Pulses: Dorsalis pedis pulses are 2+ on the right side and 2+ on the left side. Heart sounds: Normal heart sounds. Pulmonary: Effort: Pulmonary effort is normal. Breath sounds: Normal breath sounds. Musculoskeletal: Right lower leg: No edema. Left lower leg: No edema. Right foot: No deformity. Left foot: No deformity. Feet: Right Foot: Monofilament exam: normal. Protective Sensation: 5 sites tested. 5 sites sensed. Skin Integrity: Negative for ulcer or callus. Left Foot: Monofilament exam: normal. Protective Sensation: 5 sites tested. 5 sites sensed. Skin Integrity: Negative for ulcer or callus. Neurological: General: No focal deficit present. Mental Status: She is alert. Psychiatric: Attention and Perception: Attention normal. Mood and Affect: Mood normal. Behavior: Behavior normal. Assessment/Plan Diagnoses and all orders for this visit: Type 2 diabetes mellitus with hyperglycemia, with long-term current use of insulin (HCC) (Primary) Assessment & Plan: Chronic problem, overall stable but lately issues with getting medications. Change Jardiance to OptionEasexiga for insurance. Will do PA for Ozempic. [...] 50% 1 hr later if blood sugar is>200. Update routine labs and request eye exam. Orders: - POCT glucose - POCT hemoglobin A1c - Lipid panel; Future - Albumin Creatinine Ratio, Urine; Future Hypertension associated with diabetes (HCC) Assessment & Plan: Chronic problem, Controlled on losartan, propranolol, HCTZ. No changes. Insulin pump in place Assessment & Plan: Basal 12a 0.8, 12p 1.1 IC 8 SF 25 T 110, correct above 150 AIT 3 hrs Hyperlipidemia associated with type 2 diabetes mellitus (HCC) Assessment & Plan: Chronic problem. On statin therapy, no changes. Other orders - dapagliflozin propanediol (FARXIGA) 10 mg tablet; Take 1 tablet (10 mg total) by mouth daily - semaglutide (OZEMPIC) 2 mg/dose (8 mg/3 mL) pen injector injection; Inject 2 mg under the skin every 7 days DELMER Dong PACKER OR APPLIER documented in this encounter Miscellaneous Notes * Assessment & Plan Note - Deedee Hussein PA - 02/18/2024 10:06 AM LUTE PACKER OR APPLIER Associated Problem(s): Type 2 diabetes mellitus with hyperglycemia, with long- term current use of insulin (HCC) Chronic problem, overall stable but lately issues [...] 50% 1 hr later if blood sugar is>200. Update routine labs and request eye exam. PACKER OR APPLIER PACKER OR APPLIER * Assessment & Plan Note - Deedee Hussein PA - 02/18/2024 9:53 AM LUTE PACKER OR APPLIER Associated Problem(s): Insulin pump in place Basal 12a 0.8, 12p 1.1 IC 8 SF 25 T 110, correct above 150 AIT 3 hrs PACKER OR APPLIER PACKER OR APPLIER * Assessment & Plan Note - Deedee Hussein PA - 02/18/2024 9:36 AM LUTE PACKER OR APPLIER Associated Problem(s): Hypertension associated with diabetes (HCC) Chronic problem, Controlled on losartan, propranolol, HCTZ. No changes. PACKER OR APPLIER * Assessment & Plan Note - Deedee Hussein PA - 02/18/2024 9:36 AM LUTE PACKER OR APPLIER Associated Problem(s): Hyperlipidemia associated with type 2 diabetes mellitus (HCC) Chronic problem. On statin therapy, no changes. PACKER OR APPLIER documented in this encounter Plan of Treatment Scheduled Orders Name Type Priority Associated Diagnoses Orde r Schedule Lipid panel Lab Routine Type 2 diabetes mellitus with hyperglycemia, with long-term current use of insulin (HCC) Expected: 02/21/2024, Expires: 02/17/2025 Albumin Creatinine Ratio, Urine Lab Routine Type 2 diabetes mellitus with hyperglycemia, with long-term current use of insulin (HCC) Expected: 02/21/2024, Expires: 02/17/2025 documented as of this encounter Procedures Procedure Name Priority Date/Time Associated Diagnosis Comments POCT HEMOGLOBIN A1C Routine 02/18/2024 9 :38 AM LUTE PACKER OR APPLIER Type 2 diabetes mellitus with hyperglycemia, with long-term current use of insulin (HCC) POCT GLUCOSE Routine 02/18/2024 9:35 AM LUTE PACKER OR APPLIER Type 2 diabetes mellitus with hyperglycemia, with long-term current use of insulin (HCC) documented in this encounter Results * POCT hemoglobin A1c (02/18/2024 9:38 AM LUTE PACKER OR APPLIER) Hemoglobin A1C, POC 6.0 4.0 - 5.6 % Blood 02/18/2024 9:38 AM LUTE PACKER OR APPLIER Deedee DOWELL POINT OF CARE TEST ORDE RABLES Final Result * POCT glucose (02/18/2024 9:35 AM LUTE PACKER OR APPLIER) Glucose Blood, POC 135 mg/dL Blood 02/18/2024 9:35 AM LUTE PACKER OR APPLIER Deedee DOWELL POINT OF CARE TEST ORDE RABLES Final Result documented in this encounter Visit Diagnoses Diagnosis Type 2 diabetes mellitus with hyperglycemia, with long-term current use of insulin (HCC)- Primary Hypertension associated with diabetes (HCC) Unspecified essential hypertension Insulin pump in place Insulin pump status Hyperlipidemia associated with type 2 diabetes mellitus (HCC) documented in this encounter Discontinued Medications Medication Sig Discontinue Reason Start Date End Da te empagliflozin (JARDIANCE) 25 mg tablet Take 1 tablet (25 mg total) by mouth daily Alternate therapy 01/17/2023 02/18/2024 semaglutide (OZEMPIC) 2 mg/dose (8 mg/3 mL) pen injector injection Inject 2 mg under the skin every 7 days Reorder 09/05/2023 02/18/2024 documented as of this encounter Care Teams Beauty Sales Consultant Relationship Specialty Start Date End Date Deedee Low PA PCP - General 03/13/17 documented as of this encounter
--- OUTSIDE RECORDS SUMMARY | 2024-02-24 17:10 | XMS_ITS | Referral Summary ---
Author Organization [facility] [address] Address [address] [place] [address] Care Team Providers Care Awning Erector Name Role Phone ZeyadDeedee العلي Aylin DOWELL Primary Care Pr ovider Encounters Date Type Department Care Team Description 02/24/2024 7:22 AM BAKERY ASSISTANT Hospital Encounter [facility] [id number] [place] [id number] Mesfin Epstein NP Cervical radiculopathy (Primary Dx); Lumbar radiculopathy; Cervical myofascial pain syndrome 02/20/2024 11:49 AM BAKERY ASSISTANT - 02/20/2024 11:59 PM BAKERY ASSISTANT Hospital Encounter [address] [address] Acute nasopharyngitis Discharge Disposition: Discharge to home or self care 02/20/2024 11:15 AM BAKERY ASSISTANT Office Visit [facility] at [address] [phone] Angelita Schilling NP Acute nasopharyngitis (Primary Dx) 02/19/2024 Documentation [facility] 12th [place] [address] [place] [phone] Rosa Ortiz 02/19/[address] [facility] [address] [place] [phone] Tania Shell RN 02/18/2024 Orders Only [facility] [address] [place] [address] [place] [address] Yancy Desai MD Gastroparesis (Primary Dx); Gastroesophageal reflux disease without esophagitis; Constipation, unspecified constipation type 02/18/2024 Telephone [facility] Specialists of [address] [address] Deedee Hussein PA Prior Auth (Ozempic) 02/18/2024 Orders Only [facility] Diabetes [facility] Endocrinology [address] [place] [phone] Lynn Moon MD 02/18/2024 Telephone [facility] Medical [facility] [address] [place] [phone] Deedee Hussein PA Test Results (Labs) 02/18/2024 9:00 AM BAKERY ASSISTANT Office Visit [facility] Specialists of [address] [address] Deedee Hussein PA Type 2 diabetes mellitus with hyperglycemia, with long-term current use of insulin (HCC) (Primary Dx); Hypertension associated with diabetes (HCC); Insulin pump in place; Hyperlipidemia associated with type 2 diabetes mellitus (HCC) 02/12/2024 9:40 AM BAKERY ASSISTANT Office Visit [facility] [address] [place] [address] Yancy Desai MD Gastroparesis (Primary Dx); Gastroesophageal reflux disease without esophagitis; Other irritable bowel syndrome; Nausea and vomiting, unspecified vomiting type; Constipation, unspecified constipation type 01/10/2024 Telephone [facility] [address] [place] [address] Carmelita Lopez Prior Auth (Motegrity 2MG tablets ) 01/07/2024 8:25 AM CDT - 01/07/2024 11:59 PM CDT Hospital Encounter [facility] [place] [address] Mesfin Epstein NP Cervical radiculopathy (Primary Dx); Chronic pain syndrome; Lumbar radiculopathy; Myofascial pain Discharge Disposition: Discharge to home or self care from Last 3 Months Allergies Active Allergy Reactions Criticality Noted Date Comments Mushroom Anaphylaxis High 01/04/2016 Nut Flavor Anaphylaxis High 01/04/2016 MAINLY PECANS CAN TOLERATE PEANUTS Pecan Nut Anaphylaxis High 09/05/2021 Pneumococcal 23-Giselle Ps Vaccine Unknown 01/09/2022 Medications albuterol ER (VOSPIRE ER) 8 mg 12 hr tablet every 12 (twelve) hours Active fexofenadine (OCHOA) 180 mg tablet daily Active hydrOXYzine (ATARAX) 25 mg tablet Take 1 tablet (25 mg total) by mouth 1-2 nightly Active blood-glucose meter miscIndications:T ype 2 diabetes mellitus with hyperglycemia, with long-term current use of insulin ([facility]) Check bg daily 1 each Active blood glucose diagnostic stripIndications: Type 2 diabetes mellitus with hyperglycemia, with long-term current use of insulin ([facility]) Use to check bg 7 times daily 500 each 1 Active pen needle, diabetic (BD Ultra-Fine Florina Pen Needle) 32 gauge x 5/32 needleIndications :Type 2 diabetes mellitus with hyperglycemia, with long-term current use of insulin (HCC) USE DIRECTED up to 7 times daily 700 each Active propranoloL (INDERAL) 20 mg tablet Take [...] 137 mcg (0.1 %) nasal spray aerosol [place] 2 sprays every day by nasal route [...] % ointment 2 (two) times a day Active fluticasone propion-salmetero L (ADVAIR DISKUS) 250-50 [...] 023 Active Amzeeq 4 % foam qd Active blood-glucose transmitter (Dexcom G6 Transmitter) device USE DIRECTED CHANGE EVERY 3 MONTHS 1 each 3 023 Active losartan (COZAAR) 100 mg tablet Take 1 tablet (100 mg total) by mouth daily Active doxycycline 100 mg capsuleIndication s:Prophylaxis, Medical,Skin/Soft Tissue Infection Take 1 tablet/capsule (100 mg total) by mouth daily 90 tablet/cap yari 3 024 2024 Active fenofibrate (TRIGLIDE) 160 mg tablet Take 1 tablet (160 mg total) by mouth daily Active hydroCHLOROthiazi de (MICROZIDE) 12.5 mg capsule Take 1 capsule (12.5 mg total) by mouth daily 90 capsule 1 024 2024 Active prucalopride (MOTEGRITY) 2 mg tablet Take [...] hyperglycemia, with long-term current use of insulin ([facility]) INJECT UP TO 100 UNITS DAILY VIA INSULIN PUMP 90 mL 1 Active eptinezumab-jjmr (Vyepti) Infuse 1 mL (100 mg total) into a venous catheter every 3 (three) months Active phentermine (ADIPEX-P) 37.5 mg tabletIndications :Type 2 diabetes mellitus with hyperglycemia, with long-term current use of insulin ([facility]) TAKE 1 TABLET BY MOUTH ONCE DAILY [...] (12/24/2022): Added automatically from request for surgery [id number] Cervical radiculopathy 05/07/2022 Overview (12/24/2022): Added automatically from request for surgery [id number] Intermittent palpitations 05/04/2022 Morbid (severe) obesity due to excess calories 0 03/29/2022 Assessment & Plan (05/09/2023 10:21 AM BAKERY ASSISTANT): Chronic stable problem. Assessment & Plan (03/29/2022 2:33 PM BAKERY ASSISTANT): Chronic problem. Try lowering insulin. Will leave [...] 11/23/2021 Hyperlipidemia associated with type 2 diabetes m ellitus 11/22/2021 Assessment & Plan (02/18/2024 9:36 AM BAKERY ASSISTANT): Chronic problem. On statin therapy, no changes. Assessment & Plan (05/09/2023 9:38 AM BAKERY ASSISTANT): Chronic problem. On statin therapy, no changes. Assessment & Plan (01/02/2023 10:14 AM CDT): Chronic problem. On statin therapy, no changes. Assessment & Plan (08/30/2022 4:34 PM CDT): Chronic problem. On statin therapy, no changes. Assessment & Plan (03/29/2022 2:33 PM BAKERY ASSISTANT): Chronic problem. On statin therapy, no changes. Assessment & Plan (11/23/2021 1:19 PM CDT): Chronic problem. On statin therapy, no changes. Insulin pump in place 11/22/2021 Assessment & Plan (02/18/2024 10:09 AM BAKERY ASSISTANT): Basal 12a 0.8, 12p 1.1 IC 8 SF 25 T 110, correct above 150 AIT 3 hrs Assessment & Plan (01/02/2023 10:15 AM CDT): No pump setting changes. Gave her info on target, AIT when she switches to OP5, along with setting up a [employer] account. She is planning to start on it this weekend. Assessment & Plan (08/30/2022 4:30 PM CDT): No pump setting changes. 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 Assessment & Plan (03/26/2020 10:24 PM BAKERY ASSISTANT): Increase basal to 3.2 Assessment & Plan (01/27/2020 3:17 PM BAKERY ASSISTANT): Increase basal rate to 3.0 per hour [...] 12/10/2019 Assessment & Plan (02/18/2024 9:36 AM BAKERY ASSISTANT): Chronic problem, Controlled on losartan, propranolol, HCTZ. No changes. Assessment & Plan (05/09/2023 10:20 AM BAKERY ASSISTANT): Chronic problem, not at goal. Add HCTZ 12.5 mg daily. Continue monitoring BP at home. Assessment & Plan (01/02/2023 10:14 AM CDT): Controlled on losartan. No changes. Assessment & Plan (08/30/2022 4:34 PM CDT): Controlled on losartan. No changes. Assessment & Plan (03/29/2022 2:33 PM BAKERY ASSISTANT): Chronic problem, improved on recheck. Continue losartan. [...] plan. Assessment & Plan (03/26/2020 10:26 PM BAKERY ASSISTANT): Monitor home BP. Assessment & Plan (12/14/2019 [...] Atorvastatin Assessment & Plan (03/26/2020 10:24 PM BAKERY ASSISTANT): At goal on current medications. Continue statin therapy. Assessment & Plan (12/14/2019 3:44 PM CDT): Hypertriglyceridemia. Needs to be more focused on blood glucose control and diet. Continue fenofibrate. Asthma 06/18/2019 Mental disorder 06/18/2019 Type 2 diabetes mellitus wit h hyperglycemia, with long-term current use of insulin 06/04/2019 Assessment & Plan (02/18/2024 11:09 AM BAKERY ASSISTANT): Chronic problem, overall stable but lately issues [...] settings. Assessment & Plan (05/09/2023 10:23 AM BAKERY ASSISTANT): Chronic problem, generally stable. Recommend she stay [...] labs. Assessment & Plan (03/29/2022 2:34 PM BAKERY ASSISTANT): Chronic problem, very well controlled. Will lower [...] continue insulin pump. Endocrine managing. - continue Preciousga Assessment & Plan (09/10/2021 12:15 PM CDT): [...] her. Assessment & Plan (03/30/2021 4:10 PM BAKERY ASSISTANT): Hba1c was Lab Results Component Value Date [...] insulin Assessment & Plan (03/26/2020 10:34 PM BAKERY ASSISTANT): A1c 6.7. Basal pattern above goal. Will increase basal rate. Will additionally order dexamethasone suppression test to r/o [place]'s as this might also be impacting glycemic control. Conferred with Dr. Parveen VIRGEN to order Assessment & Plan (01/27/2020 3:17 PM BAKERY ASSISTANT): Basal pattern above goal. PC excursions acceptable. Will adjust settings and advised to upload pump q 2-4 weeks for evaluation. Assessment & Plan (12/25/2019 11:41 AM CDT): Demonstrates appropriate ability to fill and insert infusion set. Understands concepts of basal vs. Bolus and is able to enter BG and carbs into pump. Has been provided with contact information for insulin pump international account representative and how to reach our office [...] Will send referral to bariatric center a [facility] Start Phentermine Assessment & Plan (03/26/2020 10:31 PM BAKERY ASSISTANT): Wt. Continues to increase. Importance of following diet and exercising discussed. Abscess of vulva 05/06/2019 Wound dehiscence 04/20/2019 Overview (12/24/2022): Disruption of wound, unspecified, initial encounter;Recorded Elsewhere: No Location: [facility] Source: EHR Chronic: N Practice ID: [id number] [...] due to type 1 d iabetes mellitus ([facility]) 09/10/2021 02/11/2024 Morbid obesity 06/04/2019 07/25/2022 Assessment & Plan (06/22/2021 2:27 PM CDT): Chronic problem, improving s/p gastric sleeve. Intolerant of GLP1. Will try lowering insulin dose and adding SGLT2i to see if further benefit. Assessment & Plan (03/26/2020 10:24 PM BAKERY ASSISTANT): No change. Importance of following diet and exercising discussed. Assessment & Plan (12/14/2019 3:42 PM CDT): Needs to be more focused on increasing to daily exercise and limiting calories. Acute vaginitis 04/04/2016 07/25/2022 Nausea and vomiting 02/16/2016 07/26/19 23 Immunizations Name Administration Dates Next Due DTP 08/30/1986, 4,1981,08/18,1981 Influenza, Trivalent, IM (MDV) 11/28/2012 Influenza, Trivalent, Preser vative Free, Intramuscular 11/25/2014,12/21/2013 Influenza, Unspecified 03/11/2014,03/11/2013 Dpivision (J&J) SARS-CoV-2 Vaccination 05/13/2020 MMR 07/22/1991,09/28/1982 OPV 08/30/1986, 4,1981,08/18,1981 Pneumococcal Conjugate, Unspecified 03/11/2013 Pneumococcal Polysaccharide PPV23 10/30/2013 Td, adsorbed 09/24/1995 Tdap 10/30/2013 Tetanus Toxoid, Unspecified 03/11/2013 Social History Tobacco Use Types Packs/Day Years [...] on file Legal Sex Female 10:18 AM BAKERY ASSISTANT Gender Identity Female 09/21/2019 9:02 PM CDT Sexual Orientation Not on file 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 Not on file Not on file Last Filed Vital Signs Vital Sign Reading Time Taken Comments Blood Pressure 155/105 02/24/2024 7:28 AM BAKERY ASSISTANT hasnt taken bp meds Pulse 94 02/24/2024 7:28 AM BAKERY ASSISTANT Temperature 36.6 ??C (97.9 ??F) 02/20/2024 1 1:16 AM BAKERY ASSISTANT Respiratory Rate 15 02/24/2024 7:28 AM BAKERY ASSISTANT Oxygen Saturation 100% 02/24/2024 7:2 8 AM BAKERY ASSISTANT Inhaled Oxygen Concentration - - Weight 98.9 kg (218 lb) 02/20/2024 11:1 6 AM BAKERY ASSISTANT Height 162.6 cm (5' 4 ) 02/20/2024 11:1 6 AM BAKERY ASSISTANT Body Mass Index 37.42 02/20/2024 11:16 AM BAKERY ASSISTANT Plan of Treatment Not on file Medical Devices Implanted Type Area Wire Frame Lamp Shade Maker Device Identifier Shelf Expiration Date Model / Serial / Lot Iud Cervix Procedures Procedure Name Priority Date/Time Associated Diagnosis Comments INFLUENZA A/B, RSV, AND COVID-19 PCR Routine 02/20/2024 11:49 AM BAKERY ASSISTANT Acute nasopharyngitis THROAT CULTURE Routine 02/20/2024 11:49 AM BAKERY ASSISTANT Acute nasopharyngitis POCT RAPID STREP Routine 02/20/2024 11:4 3 AM BAKERY ASSISTANT Acute nasopharyngitis POCT HEMOGLOBIN A1C Routine 02/18/2024 9 :38 AM BAKERY ASSISTANT Type 2 diabetes mellitus with hyperglycemia, with long-term current use of insulin ([facility]) POCT GLUCOSE Routine 02/18/2024 9:35 AM BAKERY ASSISTANT Type 2 diabetes mellitus with hyperglycemia, with long-term current use of insulin ([facility]) COMPREHENSIVE METABOLIC PANEL Routine 02/16/2024 12:41 PM BAKERY ASSISTANT LIPID PANEL Routine 09/24/2022 8:39 AM CDT Type 2 diabetes mellitus with hyperglycemia, with long-term current use of insulin ([facility]) ([facility]) ALBUMIN CREATININE RATIO, URINE Routine 09/24/2022 8:39 AM CDT Type 2 diabetes mellitus with hyperglycemia, with long-term current use of insulin ([facility]) ([facility]) DIABETES EYE EXAM Routine 07/19/2022 8:49 AM CDT from Last 3 Months or Most Recently Relevant to Health Maintenance Results * Influenza A/B, RSV, and COVID-19 PCR Nasopharyngeal (02/20/2024 11:49 AM BAKERY ASSISTANT) Pathologist [facility] COVID-19 RNA Negative Negative Influenza A RNA Negative Negative [facility] Influenza B RNA Negative Negative [facility] RSV RNA Negative Negative [facility] Comment: Interpretive data: Testing performed by [facility]. This test is performed using the Updater Xpert Xpress CoV-2/Flu/RSV plus assay. This is a multiplex, real-time reverse transcriptase PCR assay intended for the qualitative detection of nucleic acid from SARS-CoV-2, influenza A, influenza B, and respiratory syncytial virus. This assay has been cleared by the [place] Food and Drug administration. The performance characteristics have been verified by the [facility]. ??Results must be considered in the clinical context, and a negative result does not rule out infection. Interpretive Data last revised 2023 Nasopharyngeal 02/20/2024 11 :49 AM BAKERY ASSISTANT 02/20/2024 3:05 PM BAKERY ASSISTANT Narrative [facility] - 02/20/2024 4:07 PM BAKERY ASSISTANT Is the Patient experiencing symptoms consistent with COVID?->Yes us Angelita Schilling NP LAB MICROBIOLOGY - GENERAL ORDE RABLES Final Result Performing Organization Address [facility]/ZIP Co de Phone Number AILEEN ZHAO [address] [place] [address] [place] * Throat culture Throat (02/20/2024 11:49 AM BAKERY ASSISTANT) Report Final Report: No growth of pathogens. Comment:Testing performed by : [facility], [address] [place]., [address] Throat 02/20/2024 11:4 9 AM BAKERY ASSISTANT 02/20/2024 6:18 PM BAKERY ASSISTANT Narrative [facility] - 02/21/2024 3:15 PM BAKERY ASSISTANT Testing performed by [facility] Microbiology Laboratory ([phone]). us Angelita Schilling NP LAB MICROBIOLOGY - GENERAL ORDE RABJOSÉ Final Result Performing Organization Address [facility] Co de Phone Number AILEEN CECE [address] [place] [address] * POCT rapid strep A (02/20/2024 11:43 AM BAKERY ASSISTANT) Rapid Strep A, POC Negative Negative Swab 02/20/2024 11:4 3 AM BAKERY ASSISTANT us Angelita Schilling NP POINT OF CARE TEST ORDERABLES F inal Result * POCT hemoglobin A1c (02/18/2024 9:38 AM BAKERY ASSISTANT) Hemoglobin A1C, POC 6.0 4.0 - 5.6 % Blood 02/18/2024 9:38 AM BAKERY ASSISTANT Result [facility] [place] Deedee DOWELL POINT OF CARE TEST ORDE RABLES Final Result * POCT glucose (02/18/2024 9:35 AM BAKERY ASSISTANT) Glucose Blood, POC 135 mg/dL Blood 02/18/2024 9:35 AM BAKERY ASSISTANT Deedee DOWELL POINT OF CARE TEST ORDE RABLES Final Result * (ABNORMAL) Comprehensive metabolic panel (02/16/2024 12:41 PM BAKERY ASSISTANT) SCRIBED Sodium 140 136 - 145 mmol/L [...] Units/L EXTERNAL LAB SCRIBED eGFR in NonAfrican Cambodian >60 >=60 - NA EXTERNAL LAB Blood 02/16/2024 12:4 1 PM BAKERY ASSISTANT us Historical Provider MD LAB BLOOD ORDERABLES Edit ed Result - Final Performing Organization Address City/[facility] Co de Phone Number EXTERNAL LAB * Albumin Creatinine Ratio, Urine (09/24/2022 8:39 AM CDT) Albumin Ur 23.4 mg/L AILEEN ZHAO Comment: Interpretive Data No reference range established. Current interpretive data was last revised 2018. Creatinine Ur 165.9 mg/dL AILEEN Comment: Interpretive Data No reference range established. Current interpretive data was last revised 2018. Albumin Creatinine Ratio, Ur 14 1 - 29 mg/g AILEEN Urine 09/24/2022 8:39 AM CDT 09/24/2022 3:18 PM CDT Deedee DOWELL LAB URINE ORDERABLES Fi nal Result Performing Organization Address [facility] de Phone Number [facility] [address] Department [place] [address] * Lipid panel (09/24/2022 8:39 AM CDT) Cholesterol 169 30 - 199 mg/dL AILEEN Comment: Interpretive Data Ages < [...] on 2017. HDL 41 >=40 mg/dL AILEEN ZHAO Comment: Interpretive Data Ages [...] 2017. LDL, calculated 100 <=129 mg/dL AILEEN ZHAO Comment: Interpretive Data Ages [...] revised on 2017. Chol/HDL ratio 4 AILEEN Blood 09/24/2022 8:39 AM CDT 09/24/2022 3:18 PM CDT Deedee DOWELL LAB BLOOD ORDERABLES Fi nal Result AILEEN [id number] [place] [address] * (ABNORMAL) DIABETES EYE EXAM (07/19/2022 8:49 AM CDT) Historical Provider HEALTH MAINTENANCE Edited Result - Final from Last 3 Months or Most Recently Relevant to Health Maintenance Insurance [employer] [place] HMO/POS [employer] COVENTRY HMO/POS Advance Directives For more information, please contact: [phone] * Full Code (Latest Code Status on File) Date Activated Date Inactivated Comments 11/01/2022 9:49 AM 11/01/2022 4:55 PM * Full Code Date Activated Date Inactivated Comments 09/09/2021 9:24 PM 09/12/2021 7:37 PM Care Teams Awning Erector Relationship Specialty Start Date End Date Deedee Low PA PCP - General 03/13/17
--- OUTSIDE RECORDS SUMMARY | 2024-02-24 17:10 | XMS_ITS | Encounter Summary ---
Author Organization [facility] Healthcare Address [address] [place] [address] Care Team Providers Care Telehealth Case Manager Name Role Phone Deedee Low Primary Care Pr ovider Reason for Visit * Reason Comments Sore Throat Started about two da ys ago. Still has a stuffy nose. Clear drainage from nose. Sinus pressure also. At home Covid test yesterday was negative. Ear Problem Right ear popping an d ringing. Encounter Details Date Type Department Care Team (Latest Contact Info) Description 02/20/2024 11:15 AM MACHINIST GENERAL Office Visit [facility] at [address] [address] Angelita Schilling NP [address] [place] [address] [address] [place] [address] Acute nasopharyngitis (Primary Dx) Social History Tobacco Use Types Packs/Day Years Used Date Smoking Tobacco: Former Cigarettes Smokeless Tobacco: Never Comments:Randomly in late [employer] school Alcohol Use Standard Drinks/Week Comments [...] on file Legal Sex Female 10:18 AM MACHINIST GENERAL Gender Identity Female 09/21/2019 9:02 PM CDT Sexual Orientation Not on file 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 Not on file Not on file documented as of this encounter Last Filed Vital Signs Vital Sign Reading Time Taken Comments Blood Pressure 142/89 02/20/2024 11:16 AM MACHINIST GENERAL Pulse 84 02/20/2024 11:16 AM MACHINIST GENERAL Temperature 36.6 ??C (97.9 ??F) 02/20/2024 11:[address] Respiratory Rate 20 02/20/2024 11:16 AM MACHINIST GENERAL Oxygen Saturation 98% 02/20/2024 11:16 AM MACHINIST GENERAL Inhaled Oxygen Concentration - - Weight 98.9 kg (218 lb) 02/20/2024 11:16 AM MACHINIST GENERAL Height 162.6 cm (5' 4 ) 02/20/2024 11:16 AM MACHINIST GENERAL Body Mass Index 37.42 02/20/2024 11:16 AM MACHINIST GENERAL documented in this encounter Patient Instructions * Patient Instructions* Angelita Schilling NP - 02/20/2024 11:15 AM MACHINIST GENERAL If you have no improvement or worsening of your symptoms, please follow up with your Primary Care Provider, [facility] and or Emergency Room. I strive to provide you with EXCELLENT service. You may receive a survey after your visit today. If you cannot rate your experience as EXCELLENT, please let us know how we can improve and better meet your needs. Thank you for choosing [facility]! It was my pleasure to see you today, I hope you feel better soon! Angelita Schilling UNIVERSITY RELATIONS DIRECTOR INIST GENERAL * Attachments The following attachments cannot be sent through Care Everywhere. * Upper Respiratory Infection (Case Packer And Sealer) (Bangladeshi) documented in this encounter Ordered Prescriptions Prescription Sig Dispense Quantity Refills Last Filled Start Date End Date lidocaine viscous (XYLOCAINE) 2 % solutionIndications:A cute nasopharyngitis Apply 5-10 mL to the mouth or throat 4 (four) times a day as needed (gargle and spit) for up to 5 days 100 mL 02/20/2024 4 documented in this encounter Progress Notes * Angelita Schilling, SOPHIA - 02/20/2024 11:15 AM CST Images from the original note were not included. Subjective/Objective Patient ID: Alannah Ruano is a 43 y.o. female. Chief Complaint Sore Throat (Started about two days ago. Still has a stuffy nose. Clear drainage from nose. Sinus pressure also. At home Covid test yesterday was negative. ) and Ear Problem (Right ear popping and ringing. ) Pt presents to [facility] Sore Throat This is a new problem. Episode onset: saturday, 2 days ago. The problem has been gradually worsening. Neither side of throat is experiencing more pain than the other. There has been no fever. The painis at a severity of 4/10. Associated symptoms include congestion, ear pain (right ear pain, left decreased hearing and popping), headaches, a hoarse voice, a plugged ear sensation and neck pain. Pertinent negatives include no abdominal pain, coughing, diarrhea, drooling, ear discharge, shortness ofbreath, stridor, swollen glands, trouble swallowing or vomiting. She has had no exposure to strep or mono. Treatments tried: tylenol cold and sinus, salt water gargle, hot tea. The treatment providedmoderate relief. Home covid test negative. Patient denies any known exposures or recent travel Review of Systems Constitutional: Negative for appetite change, chills, diaphoresis, fatigue and fever. HENT: Positive for congestion, ear pain (right ear pain, left decreased hearing and popping), hoarse voice, rhinorrhea, sinus pressure and sore throat. Negative for drooling, ear discharge, postnasaldrip, sinus pain, sneezing and trouble swallowing. Respiratory: Negative for cough, chest tightness, shortness of breath, wheezing and stridor. Cardiovascular: Negative for chest pain. Gastrointestinal: Negative for abdominal pain, diarrhea, nausea and vomiting. Musculoskeletal: Positive for neck pain. Negative for myalgias and neck stiffness. Skin: Negative for rash. Neurological: Positive for headaches. Negative for dizziness. Hematological: Negative for adenopathy. Physical Exam Vitals and nursing note reviewed. Constitutional: General: She is awake. She is not in acute distress. Appearance: Normal appearance. HENT: Head: Normocephalic and atraumatic. Right Ear: Tympanic membrane and ear canal normal. Left Ear: Tympanic membrane and ear canal normal. Nose: Congestion and rhinorrhea present. Right Sinus: No maxillary sinus tenderness or frontal sinus tenderness. Left Sinus: No maxillary sinus tenderness or frontal sinus tenderness. Mouth/Throat: Lips: [place]. Mouth: Mucous membranes are moist. Tongue: Tongue does not deviate from midline. Pharynx: Uvula midline. No pharyngeal swelling, oropharyngeal exudate, posterior oropharyngeal erythema or uvula swelling. Tonsils: No tonsillar exudate or tonsillar abscesses. Eyes: General: Lids are normal. Pupils: Pupils are equal, round, and reactive to light. Cardiovascular: Rate and Rhythm: Normal rate and regular rhythm. Pulses: Normal pulses. Heart sounds: Normal heart sounds. Pulmonary: Effort: Pulmonary effort is normal. No respiratory distress. Breath sounds: Normal breath sounds. No decreased breath sounds, wheezing, rhonchi or rales. Musculoskeletal: Cervical back: Full passive range of motion without pain, normal range of motion and neck supple. Lymphadenopathy: Cervical: No cervical adenopathy. Skin: General: Skin is warm and dry. Neurological: Mental Status: She is alert and oriented to person, place, and time. Gait: Gait normal. Psychiatric: Behavior: Behavior is cooperative. Vitals: 02/20/24 1116 BP: 142/89 Pulse: 84 Resp: 20 Temp: 36.6 ??C (97.9 ??F) TempSrc: Oral SpO2: 98% Weight: 98.9 kg (218 lb) Height: 162.6 cm (5' 4 ) No results found. Past Medical History: Diagnosis Date Anxiety and depression Asthma Back pain Chronic constipation Cough Diarrhea Fatigue GERD (gastroesophageal reflux disease) Hypercholesterolemia Hypertension Infection Kidney stone Menstrual problem Migraines Muscle pain Numbness and tingling Pain with urination PONV (postoperative nausea and vomiting) Seizure (HCC) TMJ dysfunction Type 2 diabetes mellitus (HCC) Insulin pump Patient Active Problem List Diagnosis Type 2 diabetes mellitus with hyperglycemia, with long-term current use of insulin (HCC) BMI 38.0-38.9,adult Hypertension associated with diabetes (HCC) Mixed hyperlipidemia process development associate associated with adverse incidents Visual field constriction, bilateral Macular edema, diabetic (HCC) Lumbar puncture headache Migraine Trigeminal neuralgia Recurrent boils Carpal tunnel syndrome Physical deconditioning Hyperlipidemia associated with type 2 diabetes mellitus (HCC) Insulin pump in place Abscess of buttock Abscess of vulva Asthma Chronic recurrent sinusitis Claustrophobia Conjunctivitis Cough Cyst of pineal gland Diarrhea Disorder of vision Dyslipidemia Foot joint pain Gastroesophageal reflux disease without esophagitis Generalized anxiety disorder Hematochezia Hemorrhoids Irregular periods Irritable bowel syndrome Keratosis pilaris Mental disorder Microalbuminuric diabetic nephropathy (CMS/HCC) (HCC) Mild anxiety Mild major depression ([facility]) Occult blood in stools Panic attack Posterior rhinorrhea Routine general medical examination at a health care facility Seasonal allergic rhinitis due to pollen Severe recurrent major depression without psychotic features (HCC) Uncontrolled type 2 diabetes mellitus Vitamin D deficiency Morbid (severe) obesity due to excess calories ([facility]) Nausea and vomiting Nonsustained ventricular tachycardia (HCC) Cervical radiculopathy Lumbar radiculopathy Chronic migraine without aura COVID-19 Intermittent palpitations Spasmodic torticollis Tachycardia Wound dehiscence Myofascial pain Current Outpatient Medications: acetone, urine, test strip, Test if BG are high, or in case of abdominal pain / nausea, vomiting, suspected DKA, Disp: 20 strip, Rfl: 3 albuterol 2.5 mg /3 mL (0.083 %) nebulizer solution, albuterol sulfate 2.5 mg/3 mL (0.083 %) solution for nebulization PRN, Disp: , Rfl: albuterol ER (VOSPIRE ER) 8 mg 12 hr tablet, every 12 (twelve) hours, Disp: , Rfl: albuterol HFA (ProAir HFA) 90 mcg/actuation inhaler, , Disp: , Rfl: albuterol HFA (ProAir HFA) 90 mcg/actuation inhaler, Inhale 2 puffs every 4 (four) hours as needed for wheezing or shortness of breath, Disp: 3 each, Rfl: 4 albuterol HFA (PROVENTIL HFA,VENTOLIN HFA,PROAIR HFA) 90 mcg/actuation inhaler, Inhale 2 puffs every 6 (six) hours as needed for wheezing or shortness of breath (cough), Disp: 1 each, Rfl: 0 Amzeeq 4 % foam, qd, Disp: , Rfl: atorvastatin (LIPITOR) 40 mg tablet, 1 tablet (40 mg total), Disp: , Rfl: azelastine (ASTELIN) 137 mcg (0.1 %) nasal spray, azelastine 137 mcg (0.1 %) nasal spray aerosol Gravelly 2 sprays every day by nasal route for 31 days., Disp: , Rfl: bevacizumab (AVASTIN) 25 mg/mL injection, prn, Disp: , Rfl: blood glucose diagnostic strip, Use to check bg 7 times daily, Disp: 500 each, Rfl: 1 blood-glucose meter misc, Check bg daily, Disp: 1 each, Rfl: 0 blood-glucose transmitter (Dexcom G6 Transmitter) device, USE DIRECTED CHANGE EVERY 3 MONTHS, Disp: 1 each, Rfl: 3 buPROPion (WELLBUTRIN) 100 mg tablet, Take 1 tablet (100 mg total) by mouth 2 (two) times a day, Disp: , Rfl: carBAMazepine (TEGretol) 200 mg tablet, Take 0.5 tablets (100 mg total) by mouth 3 (three) times a day, Disp: , Rfl: cetirizine (ZyrTEC) 10 mg tablet, Take 1 tablet (10 mg total) by mouth daily, Disp: , Rfl: dapagliflozin propanediol (FARXIGA) 10 mg tablet, Take 1 tablet (10 mg total) by mouth daily, Disp:30 tablet, Rfl: 11 Dexcom G6 Sensor device, REPLACE SENSOR DIRECTED EVERY 10 DAYS, Disp: 9 each, Rfl: 0 diazePAM (VALIUM) 5 mg tablet, Take 1 tablet (5 mg total) by mouth every 8 (eight) hours as needed,Disp: , Rfl: diphenhydrAMINE (BENADRYL) 25 mg capsule, Take 1 tablet/capsule (25 mg total) by mouth every 6 (six) hours as needed, Disp: , Rfl: doxycycline 100 mg capsule, Take 1 tablet/capsule (100 mg total) by mouth daily, Disp: 90 tablet/capsule, Rfl: 3 EPINEPHrine 0.3 mg/0.3 mL auto-injection syringe, , Disp: , Rfl: eptinezumab-jjmr (Vyepti), Infuse 1 mL (100 mg total) into a venous catheter every 3 (three) months, Disp: , Rfl: ergocalciferol (VITAMIN D) 50,000 unit capsule, ergocalciferol (vitamin D2) 1,250 mcg (50,000 unit)capsule TAKE 1 CAPSULE BY MOUTH EVERY WEEK DIRECTED, Disp: , Rfl: eszopiclone (LUNESTA) 1 mg tablet, Take 1 tablet (1 mg total) by mouth daily, Disp: , Rfl: fenofibrate (TRIGLIDE) 160 mg tablet, Take 1 tablet (160 mg total) by mouth daily, Disp: , Rfl: fexofenadine (OCHOA) 180 mg tablet, daily, Disp: , Rfl: fluticasone propion-salmeteroL (ADVAIR DISKUS) 250-50 mcg/dose diskus inhaler, , Disp: , Rfl: glucagon (Baqsimi) 3 mg/actuation spray,non-aerosol, One spray into one nostril once as directed byprovider for low blood sugar., Disp: 1 each, Rfl: 0 HumaLOG 100 unit/mL vial for injection, INJECT UP TO 100 UNITS DAILY VIA INSULIN PUMP, Disp: 90 mL,Rfl: 1 hydroCHLOROthiazide (MICROZIDE) 12.5 mg capsule, Take 1 capsule (12.5 mg total) by mouth daily, Disp: 90 capsule, Rfl: 1 hydrOXYzine (ATARAX) 25 mg tablet, Take 1 tablet (25 mg total) by mouth 1-2 nightly, Disp: , Rfl: insulin aspart (NovoLOG) 100 unit/mL vial for injection, Inject up to 100 units/day via insulin pump, Disp: 90 mL, Rfl: 3 insulin pump cart,auto,BT,G6/7 (Omnipod 5 G6-G7 Pods, Gen 5,) cartridge, CHANGE POD EVERY 3 DAYS, Disp: 10 each, Rfl: 11 insulin pump cart,auto,BT-cntr (Omnipod 5 G6 Intro Kit, Gen 5,) cartridge, Change pod q 3days, Disp: 1 each, Rfl: 0 insulin pump cart,automated,BT (Omnipod 5 G6 Pods, Gen 5,) cartridge, Change pod q 3 days, Disp: 30each, Rfl: 3 ketorolac (TORADOL) 10 mg tablet, , Disp: , Rfl: ketorolac (TORADOL) 10 mg tablet, Take 1 tablet (10 mg total) by mouth every 6 (six) hours as needed, Disp: , Rfl: lamoTRIgine (LaMICtal) 100 mg tablet, Take 1 tablet (100 mg total) by mouth daily, Disp: , Rfl: linaCLOtide (Linzess) 72 mcg capsule, daily, Disp: , Rfl: losartan (COZAAR) 100 mg tablet, Take 1 tablet (100 mg total) by mouth daily, Disp: , Rfl: montelukast (SINGULAIR) 10 mg tablet, nightly, Disp: , Rfl: olopatadine 0.6 % spray,non-aerosol, olopatadine 0.6 % nasal spray, Disp: , Rfl: ondansetron ODT (ZOFRAN-ODT) 4 mg disintegrating tablet, Take 2 tablets (8 mg total) by mouth every8 (eight) hours as needed for nausea or vomiting, Disp: 180 tablet, Rfl: 0 OneTouch Delica Plus Lancet 33 gauge misc, , Disp: , Rfl: oxymetazoline (Rhofade) 1 % cream, Rhofade 1 % topical cream, Disp: , Rfl: pen needle, diabetic (BD Ultra-Fine Florina Pen Needle) 32 gauge x 5/32 needle, USE DIRECTED up to7 times daily, Disp: 700 each, Rfl: 0 phentermine (ADIPEX-P) 37.5 mg tablet, TAKE 1 TABLET BY MOUTH ONCE DAILY BEFORE BREAKFAST, Disp: 30tablet, Rfl: 0 propranoloL (INDERAL) 20 mg tablet, Take 1 tablet (20 mg total) by mouth 2 (two) times a day, Disp:, Rfl: rimegepant (NURTEC ODT) tablet,disintegrating, Take 1 tablet (75 mg total) by mouth daily as needed, Disp: , Rfl: semaglutide (OZEMPIC) 2 mg/dose (8 mg/3 mL) pen injector injection, Inject 2 mg under the skin every 7 days, Disp: 3 mL, Rfl: 11 Soolantra 1 % cream, APPLY A PEA SIZED AMOUNT TO RED AREAS ON THE FACE EVERY NIGHT AT BEDTIME, Disp: , Rfl: topiramate (TOPAMAX) 200 mg tablet, 1 tablet (200 mg total) 2 (two) times a day, Disp: , Rfl: topiramate (TOPAMAX) 200 mg tablet, daily, Disp: , Rfl: traZODone (DESYREL) 50 mg tablet, Take 1 tablet (50 mg total) by mouth nightly, Disp: , Rfl: triamcinolone (KENALOG) 0.1 % ointment, 2 (two) times a day, Disp: , Rfl: vonoprazan 10 mg tablet, Take 10 mg by mouth daily, Disp: 90 tablet, Rfl: 0 lidocaine viscous (XYLOCAINE) 2 % solution, Apply 5-10 mL to the mouth or throat 4 (four) times a day as needed (gargle and spit) for up to 5 days, Disp: 100 mL, Rfl: 0 prucalopride (MOTEGRITY) 2 mg tablet, Take 1 tablet (2 mg total) by mouth daily, Disp: 30 tablet, Rfl: 11 No current facility-administered medications for this visit. Facility-Administered Medications Ordered in Other Visits: perflutren lipid (DEFINITY) 1.5 mL in sodium chloride 0.9% 10 mL syringe, 1-10 mL, intravenous, Once in imaging, Cristhian Fernandez MD Allergies Allergen Reactions Mushroom Anaphylaxis Nut Flavor Anaphylaxis MAINLY PECANS CAN TOLERATE PEANUTS Pecan Nut Anaphylaxis Pneumovax-23 [Pneumococcal 23-Giselle Ps Vaccine] Unknown Social History Tobacco Use Smoking status: Former [...] not drink Frequency of Binge Drinking: Never Past Surgical History: Procedure Laterality Date ADENOIDECTOMY adenoidectomy BARIATRIC SURGERY 09/07/20 COLONOSCOPY 2006 GASTRECTOMY LUMBAR PUNCTURE WO INJECTION, DIAGNOSTIC N/A 09/07/2021 ORAL SURGERY Oral Surgery SINUS SURGERY 2015 TONSILLECTOMY tonsillectomy Assessment/Plan Diagnoses and all orders for this visit: Acute nasopharyngitis (Primary) - POCT rapid strep A - lidocaine viscous (XYLOCAINE) 2 % solution; Apply 5-10 mL to the mouth or throat 4 (four) times aday as needed (gargle and spit) for up to 5 days - Influenza A/B, RSV, and COVID-19 PCR Nasopharyngeal; Future - Throat culture Throat; Future Recent Results (from the past 4 hours) POCT rapid strep A Collection Time: 02/20/24 11:43 AM Result Value Ref Range Rapid Strep A, POC Negative Negative Patient Education: The main treatment for respiratory infections of any kind is to rest, eat healthy, and drink plentyof fluids. Cold symptoms will likely last anywhere from 7-14 days with symptoms feeling much worse on days 3-5. Antibiotic medications do not cure a cold nor do antibiotic medications help to shortenthe symptoms of viral illness. -You may try: Nasal saline wash, either Neti Pot or Sinus Rinse DAILY or a saline nasal spray 3-4 times a day. Guaifenesin expectorants (Maximum Strength Mucinex, Robitussin, store brand) to loosen secretions. Warm salt water gargles as needed for sore throat. For cough you can use dextromethorphan (Delsym syrup, Robitussin cough capsules or store brand). Dextromethorphan is considered safe for and breast feeding women. You may try decongestants such as Sudafed (purchase at pharmacy) or Sudafed PE for congestion relief. Decongestants can keep you awake at night. Do not use decongestants if you have high blood pressure or if you are . If you have high blood pressure you can take otc Coricidin per package directions -Increase fluid intake: drink 2 liters (2 quarts) of non-caffeinated, non- alcoholic beverages daily, drinking alcohol causes nasal and sinus membranes to swell -Steam inhalation and warm compress to face often help relieve pressure -Avoid allergens and excessively dry heat -Sleep with head of bed elevated to encourage drainage. -Use of a humidifier if environment is heated by dry forced - air system -Avoid smoking, second-hand smoke and air pollutants. -If you are not improving within 2 weeks or worsening at anytime, follow up with your primary care provider, [facility] and or the emergency room. Disposition Treatment plan including expectations, follow up, and return precautions discussed with patient/parent, verbalizes understanding. Medication dosage, use, and potential adverse reactions discussed with patient/parent. Advised to follow up with PCP if symptoms do not resolve as expected or sooner if condition worsens. Signs/symptoms warranting ER evaluation reviewed. Patient and/or guardian was given an opportunity to ask questions, questions answered. Angelita Schilling NP This office note has been partially dictated using Loccit (ML4D) software, and as a result portions of the record may have been created with this software. Occasional wrong-word or '[id number]' substitutions may have occurred due to the inherent limitations of voice recognition software. Read the chartcarefully and recognize, using context, where substitutions have occurred. Cosigned by Jose Morales MD at 02/20/2024 11:49 AM MACHINIST GENERAL INIST GENERAL INIST GENERAL documented in this encounter Plan of Treatment Not on file documented as of this encounter Procedures Procedure Name Priority Date/Time Associated Diagnosis Comments POCT RAPID STREP Routine 02/20/2024 11:4 3 AM MACHINIST GENERAL Acute nasopharyngitis documented in this encounter Results * Throat culture Throat (02/20/2024 11:49 AM MACHINIST GENERAL) Report Final Report: No growth of pathogens. Comment:Testing performed by : [facility], [address] [place]., [address] Throat 02/20/2024 11:4 9 AM MACHINIST GENERAL 02/20/2024 6:18 PM MACHINIST GENERAL Narrative [facility] 02/21/2024 3:15 PM MACHINIST GENERAL Testing performed by [facility] Microbiology Laboratory ([phone]). us Angelita Schilling NP LAB MICROBIOLOGY - GENERAL АННА DEL CID Final Result [facility] [address] Department [place] [address] * Influenza A/B, RSV, and COVID-19 PCR Nasopharyngeal (02/20/2024 11:49 AM MACHINIST GENERAL) COVID-19 RNA Negative Negative Influenza A RNA Negative Negative [facility] Influenza B RNA Negative Negative [facility] RSV RNA Negative Negative [facility] Comment: Interpretive data: Testing performed by [facility]. This test is performed using the [employer] Xpert Xpress CoV-2/Flu/RSV plus assay. This is a multiplex, real-time reverse transcriptase PCR assay intended for the qualitative detection of nucleic acid from SARS-CoV-2, influenza A, influenza B, and respiratory syncytial virus. This assay has been cleared by the [place] Food and Drug administration. The performance characteristics have been verified by the [facility]. ??Results must be considered in the clinical context, and a negative result does not rule out infection. Interpretive Data last revised 2023 Nasopharyngeal 02/20/2024 11 :49 AM MACHINIST GENERAL 02/20/2024 3:05 PM MACHINIST GENERAL Narrative [facility] - 02/20/2024 4:07 PM MACHINIST GENERAL Is the Patient experiencing symptoms consistent with COVID?->Yes Angelita Schilling NP LAB MICROBIOLOGY - [facility] АННА DEL CID Final Result [facility] [id number] Department of Laboratories [place] [phone] * POCT rapid strep A (02/20/2024 11:43 AM MACHINIST GENERAL) [facility] Rapid Strep A, POC Negative Negative Swab 02/20/2024 11:4 3 AM MACHINIST GENERAL Angelita Schilling NP POINT OF CARE TEST ORDERABLES F inal Result documented in this encounter Visit Diagnoses Diagnosis Acute nasopharyngitis- Primary Acute nasopharyngitis (common cold) Acute nasopharyngitis Acute nasopharyngitis (common cold) documented in this encounter Care Teams Telehealth Case Manager Relationship Specialty Start Date End Date Deedee Low PA PCP - General 03/13/17 documented as of this encounter
--- OUTSIDE RECORDS SUMMARY | 2024-02-24 17:10 | XMS_ITS | Encounter Summary ---
Author Organization [facility] Address [address] [place] [address] Phone Care Team Providers Care Web Offset Press Feeder Name Role Phone Deedee Low Primary Care Pr ovider Reason for Visit * Reason Onset Date Comments Prior Auth 01/10/2024 Motegrity 2MG ta blets Encounter Details Date Type Department Care Team (Late st Contact Info) Description 01/10/2024 Telephone [facility] Gastroenterology [address] [place] [address] [place] [address] Carmelita Lopez Prior Auth (Motegrity 2MG tablets ) Social History Tobacco Use Types Packs/Day Years Used Date Smoking Tobacco: Former Cigarettes Smokeless Tobacco: Never Comments:Randomly in late [employer] school Alcohol Use Standard Drinks/Week Comments [...] on file Legal Sex Female 10:18 AM AEROSOL LINE OPERATOR Gender Identity Female 09/21/2019 9:02 PM CDT Sexual Orientation Not on file 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 SOL LINE OPERATOR SOL LINE OPERATOR * Telephone Encounter - Carmelita Lopez - 01/10/2024 1:42 PM CDT Please attain PA. Medication: Motegrity 2 mg tablet Directions: take 1 tablet by mouth daily Days/ Quantity:30 per 30 New Start/ Continuation started on: 06/26/2023 Diagnosis: K59.04 Chronic Idiopathic Constipation Tried and failed medications: Linzess 72 mcg, Amitiza, Miralax, Ducolax. [employer] [id number] BIN: [id number] PCN: [id number] Group Rx: [id number] documented in this encounter Plan of Treatment Not on file documented as of this encounter Visit Diagnoses Not on filedocumented in this encounter Care Teams Web Offset Press Feeder Relationship Specialty Start Date End Date Deedee Low PA PCP - General 03/13/17 documented as of this encounter
--- OUTSIDE RECORDS SUMMARY | 2024-02-24 17:10 | XMS_ITS | Encounter Summary ---
Author Organization [facility] Healthcare Address [address] [place] [address] Care Team Providers Care Tool Liaison Name Role Phone Deedee Low Primary Care Pr ovider Reason for Visit * Reason Comments Cough Nothing coming up. F eels like constant tickle in back of throat. Congestion Symptoms started Mariaelena rsday and getting progressively worse. 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 Gender Identity Female 09/21/2019 9:02 PM CDT Sexual Orientation Not on file 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 If you develop any thick mucus drink warm liquids to help thin out secretions. Follow up with PCP if no improvement * Attachments The following attachments cannot be sent through Care Everywhere. * Upper Respiratory Infection (AfterCare(R) Instructions(ER/ED)) ([place]) documented in this encounter Ordered Prescriptions Prescription Sig Dispense Quantity Refills Last Filled Start Date End Date albuterol HFA (PROVENTIL HFA,VENTOLIN HFA,PROAIR HFA) 90 mcg/actuation inhaler Inhale 2 puffs every 6 (six) hours as needed for wheezing or shortness of breath (cough) 1 each 10/07/2023 albuterol HFA (ProAir HFA) 90 mcg/actuation inhaler Inhale 2 puffs every 4 (four) hours as needed for wheezing or shortness of breath 3 each 4 10/07/2023 benzonatate (TESSALON) 200 mg capsule Take 1 capsule (200 mg total) by mouth 3 (three) times a day as needed for cough for up to 7 days 20 capsule 10/07/2023 documented in this encounter Progress Notes * Trinity Gallego NP - 10/07/2023 11:30 AM CDT Images from the original note were not included. Subjective/Objective Patient ID: Alannah Ruano is a 43 y.o. female. Chief Complaint Cough (Nothing coming up. Feels like constant tickle in back of throat. ) and Congestion (Symptoms started and getting progressively worse. ) Pt presents to [facility] Care HPI 43 y/o female presents with c/o cough and congestion x 5 days Mucinex and Corcidin HBP No recent travel no known ill contact but went to 2 concerts. Review of Systems Constitutional: Body aches HENT: Positive for congestion, ear pain and sore throat. Negative for drooling, ear discharge and trouble swallowing. Bilateral ear pain and pressure Respiratory: Positive for cough and shortness of breath. Negative for stridor. Cough is worse at night Gastrointestinal: Negative for abdominal pain, diarrhea, nausea and vomiting. Musculoskeletal: Negative for neck pain. Neurological: Positive for headaches. Negative for dizziness. Physical Exam Vitals and nursing note reviewed. Constitutional: Appearance: Normal appearance. HENT: Head: Normocephalic and atraumatic. Ears: Comments: Bilateral TM small amount of clear air fluid present Nose: Nose normal. Mouth/Throat: Mouth: Mucous membranes are dry. Eyes: Extraocular Movements: Extraocular movements intact. Cardiovascular: Rate and Rhythm: Normal rate and regular rhythm. Heart sounds: Normal heart sounds. Pulmonary: Breath sounds: Normal breath sounds. Comments: Dry cough Musculoskeletal: Cervical back: Normal range of motion and neck supple. Neurological: General: No focal deficit present. Mental Status: She is alert and oriented to person, place, and time. Vitals: 10/07/23 1130 Weight: 98.9 kg (218 lb) Height: 162.6 cm (5' 4 ) Assessment/Plan Diagnoses and all orders for this visit: Cough, unspecified type (Primary) - POC Influenza A/B, COVID-19 antigen Other orders - benzonatate (TESSALON) 200 mg capsule; Take 1 capsule (200 mg total) by mouth 3 (three) times a day as needed for cough for up to 7 days - albuterol HFA (ProAir HFA) 90 mcg/actuation inhaler; Inhale 2 puffs every 4 (four) hours as needed for wheezing or shortness of breath - albuterol HFA (PROVENTIL HFA,VENTOLIN HFA,PROAIR HFA) 90 mcg/actuation inhaler; Inhale 2 puffs every 6 (six) hours as needed for wheezing or shortness of breath (cough) Plan Sleep with head elevated to help with cough. If you develop any thick mucus drink warm liquids to help thin out secretions. Follow up with PCP if no improvement Disposition Treatment plan including expectations, follow up, and return precautions discussed with patient/parent, verbalizes understanding. Medication dosage, use, and potential adverse reactions discussed with patient/parent. Advised to follow up with PCP if symptoms do not resolve as expected or sooner if condition worsens. Signs/symptoms warranting ER evaluation reviewed. Patient and/or guardian was given an opportunity to ask questions, questions answered. Trinity Gallego NP documented in this encounter Plan of Treatment Not on file documented as of this encounter Procedures Procedure Name Priority Date/Time Associated Diagnosis Comments POC INFLUENZA A/B, COVID-19 ANTIGEN Routine 10/07/2023 12:05 PM CDT Cough, unspecified type documented in this encounter Results * POC Influenza A/B, COVID-19 antigen (10/07/2023 12:05 PM CDT) Influenza A Ag, POC Negative Negative [facility] Influenza B Ag, POC Negative Negative [facility] COVID-19 Ag POC Presumptive Negative Presumptive Negative, Invalid [facility] Nasal 10/07/2023 12:0 5 PM CDT Trinity Gallego FLEXIBLE BABYSITTER POINT OF CARE TEST ORDERABLES Final Result [facility] [address] documented in this encounter Visit Diagnoses Diagnosis Cough, unspecified type- Primary documented in this encounter Discontinued Medications Medication Sig Discontinue Reason Start Date End Da te albuterol HFA (PROVENTIL HFA,VENTOLIN HFA,PROAIR HFA) 90 mcg/actuation inhaler Inhale 2 puffs every 6 (six) hours as needed for wheezing Reorder 10/07/2023 documented as of this encounter Additional Health Concerns Infection Onset Date Last Indicated Resolved Time COVID: Suspected 10/07/2023 10/07/2023 10/07/2023 12:06 PM CDT documented as of this encounter Care Teams Tool Liaison Relationship Specialty Start Date End Date Deedee Low PA PCP - General 03/13/17 documented as of this encounter
--- OUTSIDE RECORDS SUMMARY | 2024-02-24 17:10 | XMS_ITS | Encounter Summary ---
Author Organization [facility] Address [address] [place] [address] Phone Care Team Providers Care Lead Manufacturing Engineering Tech Name Role Phone Jennifermary Deedee DOWELL Primary Care Pr ovider Reason for Referral * (Routine) - Pending Review Specialty Diagnoses / Procedures Referred By Contac t Referred To Contact Diagnoses Constipation, unspecified constipation type Procedures High Resolution Anorectal Motility (Rectal Sensation/Tone) with Balloon Expulsion - Yancy Desai MD [address] [place] [address] Phone: tel: fax: [facility] [address] [place] [address] Referral ID Status Reason Start Date Expiration Date V isits Requested Visits Authorized [id number] Pending Review 02/18/2024 03/19/2025 1 1 IFICATION CONSULTANT Encounter Details Date Type Department Care Team (Late st Contact Info) Description 02/18/2024 Orders Only [facility] [address] [place] [address] [place] [address] Yancy Desai MD [address] [place] [address] Gastroparesis (Primary Dx); Gastroesophageal reflux disease without esophagitis; Constipation, unspecified constipation type Social History Tobacco Use Types Packs/Day Years Used Date Smoking Tobacco: Former Cigarettes Smokeless Tobacco: Never Comments:Randomly in late [facility] school Alcohol Use Standard Drinks/Week Comments [...] on file Legal Sex Female 10:18 AM SPECIFICATION CONSULTANT Gender Identity Female 09/21/2019 9:02 PM CDT Sexual Orientation Not on file 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 Not on file Not on file documented as of this encounter Ordered Prescriptions Prescription Sig Dispense Quantity Refills Last Filled Start Date End Date vonoprazan 10 mg tabletIndications:Ga stroesophageal reflux disease without esophagitis Take 10 mg by mouth daily 90 tablet 02/18/2024 ondansetron ODT (ZOFRAN-ODT) 4 mg disintegrating tabletIndications:Ga stroparesis Take 2 tablets (8 mg total) by mouth every 8 (eight) hours as needed for nausea or vomiting 180 tablet 02/18/2024 documented in this encounter Progress Notes * Jose Olson LPN - 02/18/2024 11:43 AM CST Almita Garcia, here is the plan for [place] Needs ARM We stopped her motegrity and gave her samples of Ibsrela, can you check on her in a week or two to see if she wants a prescription sent in We gave her samples of Vonoprazan 10mg a day, please send a script to her pharmacy and info to her for [facility] to help with cost/copay Please send a script for Zofran ODT 8mg to [facility], Do you have info to send her on sign up for [facility]? I did discuss with her but want to make sure she has the info IFICATION CONSULTANT documented in this encounter Miscellaneous Notes * Addendum Note - Jose Olson LPN - 02/18/2024 11:43 AM CSTAddended by: JOSE OLSON on: 02/18/2024 11:47 AM Modules accepted: Orders IFICATION CONSULTANT documented in this encounter Plan of Treatment Scheduled Orders Name Type Priority Associated Diagnoses Orde r Schedule High Resolution Anorectal Motility (Rectal Sensation/Tone) with Balloon Expulsion - GI Routine Constipation, unspecified constipation type 1 Occurrences starting 02/18/2024 until 02/17/2025 documented as of this encounter Visit Diagnoses Diagnosis Gastroparesis- Primary Gastroesophageal reflux disease without esophagitis Esophageal reflux Constipation, unspecified constipation type documented in this encounter Discontinued Medications Medication Sig Discontinue Reason Start Date End Da te prucalopride (Motegrity) 2 mg tablet 1 tablet (2 mg total) daily Alternate therapy 02/18/2024 ondansetron ODT (ZOFRAN-ODT) 4 mg disintegrating tablet DISSOLVE 2 TABLETS IN MOUTH EVERY 8 HOURS NEEDED FOR NAUSEA FOR VOMITING Reorder 12/09/2023 02/18/[address] (PROTONIX) 40 mg EC tablet Take 1 tablet (40 mg total) by mouth daily Alternate therapy 06/26/2023 02/18/[address] (ACIPHEX) 20 mg EC tablet Take 1 tablet (20 mg total) by mouth 2 (two) times a day Alternate therapy 02/18/2024 documented as of this encounter Care Teams Lead Manufacturing Engineering Tech Relationship Specialty Start Date End Date Deedee Low PA PCP - General 03/13/17 documented as of this encounter
--- OUTSIDE RECORDS SUMMARY | 2024-02-24 17:10 | XMS_ITS | Encounter Summary ---
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 Sex Female 10:18 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 Gender Identity Female 09/21/2019 9:02 PM CDT Sexual Orientation Not on file 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
--- OUTSIDE RECORDS SUMMARY | 2024-02-24 17:10 | XMS_ITS | Encounter Summary ---
Author Organization [facility] Healthcare Address [address] [place] [address] Care Team Providers Care Strategic Alliances Manager Name Role Phone Deedee Low Primary Care Pr ovider Encounter Details Date Type Department Care Team (Late Contact Info) Description 02/18/2024 Orders Only [facility] Medical Group Diabetes and Endocrinology [address] [place] [phone] Provider, MD Lynn [address] [place], [place] [id number] Social History Tobacco Use Types Packs/Day Years Used Date Smoking Tobacco: Former Cigarettes Smokeless Tobacco: Never Comments:Randomly in late [facility] school Alcohol Use Standard Drinks/Week Comments [...] on file Legal Sex Female 10:18 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 Gender Identity Female 09/21/2019 9:02 PM CDT Sexual Orientation Not on file 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 Not on file Not on file documented as of this encounter Plan of Treatment Not on file documented as of this encounter Procedures Procedure Name Priority Date/Time Associated Diagnosis Comments COMPREHENSIVE METABOLIC PANEL Routine 02/16/2024 12:41 PM 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 documented in this encounter Results * (ABNORMAL) Comprehensive metabolic panel (02/16/2024 12:41 PM 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) SCRIBED Sodium 140 136 - 145 mmol/L [...] Units/L EXTERNAL LAB SCRIBED eGFR in NonAfrican Israeli >60 >=60 - NA EXTERNAL LAB Blood 02/16/2024 12:4 1 PM 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 us Historical Provider LAB BLOOD ORDERABLES Edit ed Result - Final EXTERNAL LAB documented in this encounter Visit Diagnoses Not on filedocumented in this encounter Additional Health Concerns Infection Onset Date Last Indicated Resolved Time COVID: Suspected 02/20/2024 02/20/2024 02/20/2024 11:38 AM 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 COVID: Suspected 02/20/2024 02/20/2024 02/20/2024 4:08 PM 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 documented as of this encounter Care Teams Strategic Alliances Manager Relationship Specialty Start Date End Date Deedee Low PA PCP - General 03/13/17 documented as of this encounter
--- OUTSIDE RECORDS SUMMARY | 2024-02-24 17:10 | XMS_ITS | Encounter Summary ---
Author Organization [facility] Healthcare Address [address] [place] [address] Care Team Providers Care Air Analysis Engineering Technician Name Role Phone Deedee Low Primary Care Pr ovider Reason for Visit * Reason Onset Date Comments Prior Auth 02/18/2024 Ozempic Encounter Details Date Type Department Care Team ([facility] Contact Info) Description 02/18/2024 Telephone [facility] [id number] [place] [phone] De[place] Hussein [place] [phone] [place] [address], [place] [address] Prior Auth (Ozempic) Social History Tobacco Use Types Packs/Day Years Used Date Smoking Tobacco: Former Cigarettes Smokeless Tobacco: Never Comments:Randomly in late [employer] school Alcohol Use Standard Drinks/Week Comments [...] on file 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 Rohini informed of approval at [facility] [employer]HTENER [employer] ALIGNER IGHTENER [employer] ALIGNER * Telephone Encounter - Tania Lux MA - 02/18/2024 11:17 AM CST Prior auth for Ozempic started on CMM Kaur: [id number] IGHTENER AND ALIGNER documented in this encounter Plan of Treatment Not on file documented as of this encounter Visit Diagnoses Not on filedocumented in this encounter Care Teams Air Analysis Engineering Technician Relationship Specialty Start Date End Date Deedee Low PA PCP - General 03/13/17 documented as of this encounter
--- OUTSIDE RECORDS SUMMARY | 2024-02-24 17:10 | XMS_ITS | Encounter Summary ---
Author Organization [facility] Healthcare Address [address] [place] [address] Care Team Providers Care Food Service Kitchen Supervisor Name Role Phone Deedee Low Primary Care Pr ovider Reason for Visit * Reason Onset Date Comments Test Results 02/18/2024 Labs Encounter Details Date Type Department Care Team ([facility] Contact Info) Description 02/18/2024 Telephone [facility] Medical Group Diabetes and Endocrinology [address] [place] [phone] [place] [address] [address] Test Results (Labs) Social History Tobacco Use Types Packs/Day Years Used Date Smoking Tobacco: Former Cigarettes Smokeless Tobacco: Never Comments:Randomly in late [facility] [employer] school Alcohol Use Standard Drinks/Week Comments [...] on file Legal Sex Female 10:18 AM FUR LINER Gender Identity Female 09/21/2019 9:02 PM CDT Sexual Orientation Not on file 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 LINER documented in this encounter Plan of Treatment Not on file documented as of this encounter Visit Diagnoses Not on filedocumented in this encounter Care Teams Food Service Kitchen Supervisor Relationship Specialty Start Date End Date Deedee Low PA PCP - General 03/13/17 documented as of this encounter
--- OUTSIDE RECORDS SUMMARY | 2024-02-24 17:10 | XMS_ITS | Encounter Summary ---
Author Organization [facility] Address [address] [place] [address] Phone Care Team Providers Care Manager Discovery Name Role Phone Deedee Low Primary Care Pr ovider Encounter Details Date Type Department Care Team (Late st Contact Info) Description 02/12/2024 9:40 AM FLOATING DERRICK OPERATOR Office Visit [facility] [address] 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 on file Not on file Not on file documented as of this encounter Last Filed Vital Signs Vital Sign Reading Time Taken Comments Blood Pressure 125/86 02/12/2024 9:26 AM FLOATING DERRICK OPERATOR Pulse 85 02/12/2024 9:26 AM FLOATING DERRICK OPERATOR Temperature 36.4 ??C (97.6 ??F) 02/12/2024 9:26 AM CS T Respiratory Rate - - Oxygen Saturation - - Inhaled Oxygen Concentration - - Weight 98.9 kg (218 lb) 02/12/2024 9:26 AM FLOATING DERRICK OPERATOR Height 162.6 cm (5' 4 ) 02/12/2024 9:26 AM FLOATING DERRICK OPERATOR Body Mass Index 37.42 02/12/2024 9:26 AM FLOATING DERRICK OPERATOR documented in this encounter Patient Instructions * Patient Instructions* Coty Galaviz PA - 02/12/2024 9:40 AM FLOATING DERRICK OPERATOR Stop pantoprazole, start Vonoprazan 10mg once a day for acid reflux. [employer] for copay card Continue zofran, will send a script to [facility], please go on line and sign up for an account Stop Motegrity and start trial of Ibsrela, take 1 pill twice a day with food, message in a couple weeks if this is helpful and we can send in a script Dr Desai's nurse will call to set up the anorectal manometry Follow up with DELMER Peters in [address] Desai in 1 year TING DERRICK OPERATOR TING DERRICK OPERATOR TING DERRICK OPERATOR documented in this encounter Progress Notes * Coty Galaviz PA - 02/12/2024 9:40 AM CST Subjective NAME: Alannah Ruano : 1980 DOS: 02/12/2024 Referring Physician Consult requested by: Referral, Self Primary Care Physician: Deedee Low PA Chief Complaint: nausea, constipation, GERD, gastroparesis HPI Alannah Ruano is a 43 y.o. female here for follow up in GI clinic. Her last visit with me was 06/26/2023. She last saw Dr Desai 12/19/2022. Her PMH includes gastric sleeve 08/2020, DM2, HTN, HLD, MRSA skin infections on chronic doxy. Summary of GI history She has had GI symptoms since 2019, nausea, early satiety, bloating, constipation 04/2019 reports an abnl gastric emptying scan Started reglan, sxs improved Failed Miralax Started motegrity and PPI, helped but ins issues with motegrity 08/2020 s/p gastric sleeve - GI sxs improved until late 2021 Late 2021- nausea returned, some vomiting, acid reflux, constipation and cramping 04/2022 MBS- negative 06/2022 started Mounjaro 10/2022 EGD- LA grade A esophagitis, s/p sleeve gastrectomy , path showed minimal gastritis, H pylori negative 10/2022 Colonoscopy- 3mm polyp (TA) repeat in 7 years 12/2022 persistent reflux despite pantoprazole 40mg BID, prescribed Aciphex 20mg BID and motegrity.Ins denied motegrity, had to try amitiza 02/2023 stopped mounjara and started ozempic Persistent constipation despite amitiza Persistent reflux despite Aciphex 06/2023 started pantoprazole BID, famotidine, started motegrity She is on motegrity, still having constipation. Has a BM a few times a week. Still a lot of straining. Some rectal bleeding. Still abdominal cramping and pain. Some hard stools. Does use a squatty potty. Takes laxatives and stool softeners as needed, symptoms persist. Has been on pantoprazole once a day, still severe reflux. Severe burning in her chest. Wakes up choking on acid reflux. No dysphagia. Still having nausea, not better with motegrity. Takes zofran daily several doses a day. Does help with her nausea, takes 8mg 2-3 times a day. Still some vomiting on and off. No melena. On NSAIDs for the past 2 weeks for dental issues She is on Ozempic. Has not needed eye injections since starting this. No FH of colon cancer Past Medical History: Diagnosis Date Anxiety and depression Asthma Back pain Chronic constipation Cough Diarrhea Fatigue GERD (gastroesophageal reflux disease) Hypercholesterolemia Hypertension Infection Kidney stone Menstrual problem Migraines Muscle pain Numbness and tingling Pain with urination PONV (postoperative nausea and vomiting) Seizure ([facility]) TMJ dysfunction Type 2 diabetes mellitus ([facility]) Insulin pump Past Surgical History: Procedure Laterality Date ADENOIDECTOMY adenoidectomy BARIATRIC SURGERY 09/07/20 COLONOSCOPY 2006 GASTRECTOMY LUMBAR PUNCTURE WO INJECTION, DIAGNOSTIC N/A 09/07/2021 ORAL SURGERY Oral Surgery SINUS SURGERY 2015 TONSILLECTOMY tonsillectomy Patient Active Problem List Diagnosis Type 2 diabetes mellitus with hyperglycemia, with long-term current use of insulin ([facility]) BMI 38.0-38.9,adult Hypertension associated with diabetes ([facility]) Mixed hyperlipidemia complaint adjuster associated with adverse incidents Visual field constriction, bilateral Macular edema, diabetic ([facility]) Lumbar puncture headache Migraine Trigeminal neuralgia Recurrent boils Carpal tunnel syndrome Physical deconditioning Hyperlipidemia associated with type 2 diabetes mellitus ([facility]) Insulin pump in place Abscess of buttock Abscess of vulva Asthma Chronic recurrent sinusitis Claustrophobia Conjunctivitis Cough Cyst of pineal gland Diarrhea Disorder of vision Dyslipidemia Foot joint pain Gastroesophageal reflux disease without esophagitis Generalized anxiety disorder Hematochezia Hemorrhoids Irregular periods Irritable bowel syndrome Keratosis pilaris Mental disorder Microalbuminuric diabetic nephropathy (CMS/HCC) ([facility]) Mild anxiety Mild major depression ([facility]) Occult blood in stools Panic attack Posterior rhinorrhea Routine general medical examination at a health care facility Seasonal allergic rhinitis due to pollen Severe recurrent major depression without psychotic features ([facility]) Uncontrolled type 2 diabetes mellitus Vitamin D deficiency Morbid (severe) obesity due to excess calories ([facility]) Nausea and vomiting Nonsustained ventricular tachycardia (HCC) Cervical radiculopathy Lumbar radiculopathy Chronic migraine without aura COVID-19 Intermittent palpitations Spasmodic torticollis Tachycardia Wound dehiscence Myofascial pain Current Outpatient Medications Medication Sig Dispense Refill acetone, urine, test strip Test if BG are high, or in case of abdominal pain / nausea, vomiting, suspected DKA 20 strip 3 albuterol 2.5 mg /3 mL (0.083 %) nebulizer solution albuterol sulfate 2.5 mg/3 mL (0.083 %) solution for nebulization PRN albuterol ER (VOSPIRE ER) 8 mg 12 hr tablet every 12 (twelve) hours (Patient not taking: Reported on 09/05/2023) albuterol HFA (ProAir HFA) 90 mcg/actuation inhaler 2 PUFF(S) INHALED 4 TIMES A DAY, PRN albuterol HFA (ProAir HFA) 90 mcg/actuation inhaler Inhale 2 puffs every 4 (four) hours as needed for wheezing or shortness of breath 3 each 4 albuterol HFA (PROVENTIL HFA,VENTOLIN HFA,PROAIR HFA) 90 mcg/actuation inhaler Inhale 2 puffs every6 (six) hours as needed for wheezing or shortness of breath (cough) 1 each 0 Amzeeq 4 % foam qd atorvastatin (LIPITOR) 40 mg tablet 1 tablet (40 mg total) azelastine (ASTELIN) 137 mcg (0.1 %) nasal spray azelastine 137 mcg (0.1 %) nasal spray aerosol [place] 2 sprays every day by nasal route for 31 days. bevacizumab (AVASTIN) 25 mg/mL injection prn blood glucose diagnostic strip Use to check bg 7 times daily 500 each 1 blood-glucose meter misc Check bg daily 1 each 0 blood-glucose transmitter (Dexcom G6 Transmitter) device USE DIRECTED CHANGE EVERY 3 MONTHS 1 each 3 buPROPion (WELLBUTRIN) 100 mg tablet Take 1 tablet (100 mg total) by mouth 2 (two) times a day carBAMazepine (TEGretol) 200 mg tablet Take 0.5 tablets (100 mg total) by mouth 3 (three) times a day cetirizine (ZyrTEC) 10 mg tablet Take 1 tablet (10 mg total) by mouth daily Dexcom G6 Sensor device REPLACE SENSOR DIRECTED EVERY 10 DAYS 9 each 0 diazePAM (VALIUM) 5 mg tablet Take 1 tablet (5 mg total) by mouth every 8 (eight) hours as needed diphenhydrAMINE (BENADRYL) 25 mg capsule Take 1 tablet/capsule (25 mg total) by mouth every 6 (six)hours as needed doxycycline 100 mg capsule Take 1 tablet/capsule (100 mg total) by mouth daily 90 tablet/capsule 3 empagliflozin (JARDIANCE) 25 mg tablet Take 1 tablet (25 mg total) by mouth daily 90 tablet 3 EPINEPHrine 0.3 mg/0.3 mL auto-injection syringe Auvi-Q 0.3 mg/0.3 mL injection, auto-injector ADMINISTER 0.3 MG IN THE MUSCLE 1 TIME (Patient not taking: Reported on 01/07/2024) eptinezumab-jjmr (Vyepti) Infuse 1 mL (100 mg [...] tablet (160 mg total) by mouth daily fexofenadine (OCHOA) 180 mg tablet daily fluticasone propion-salmeteroL (ADVAIR DISKUS) 250-50 mcg/dose diskus inhaler Advair Diskus 250 mcg-50 mcg/dose powder for inhalation INHALE 1 PUFF BY MOUTH TWICE DAILY (Patient not taking: Reported on 01/07/2024) glucagon (Baqsimi) 3 mg/actuation spray,non-aerosol One spray into one nostril once as directed by provider for low blood sugar. (Patient not taking: Reported on 01/07/2024) 1 each 0 HumaLOG 100 unit/mL vial for injection INJECT UP TO 100 UNITS DAILY VIA INSULIN PUMP 90 mL 1 hydroCHLOROthiazide (MICROZIDE) 12.5 mg capsule Take 1 capsule (12.5 mg total) by mouth daily 90 capsule 1 hydrOXYzine (ATARAX) 25 mg tablet Take 1 tablet (25 mg total) by mouth 1-2 nightly (Patient not taking: Reported on 09/05/2023) insulin aspart (NovoLOG) 100 unit/mL vial for injection Inject up to 100 units/day via insulin pump90 mL 3 insulin pump cart,auto,BT,G6/7 (Omnipod 5 G6-G7 Pods, Gen 5,) cartridge CHANGE POD EVERY 3 DAYS 10 each 11 insulin pump cart,auto,BT-cntr (Omnipod 5 G6 Intro Kit, Gen 5,) cartridge Change pod q 3days 1 each0 insulin pump cart,automated,BT (Omnipod 5 G6 Pods, Gen 5,) cartridge Change pod q 3 days 30 each 3 ketorolac (TORADOL) 10 mg tablet ketorolac (TORADOL) 10 mg tablet (Patient not taking: Reported on 09/05/2023) ketorolac (TORADOL) 10 mg tablet Take 1 tablet (10 mg total) by mouth every 6 (six) hours as needed(Patient not taking: Reported on 01/07/2024) lamoTRIgine (LaMICtal) 100 mg tablet Take 1 tablet (100 mg total) by mouth daily linaCLOtide (Linzess) 72 mcg capsule daily (Patient not taking: Reported on 09/05/2023) losartan (COZAAR) 100 mg tablet Take 1 tablet (100 mg total) by mouth daily montelukast (SINGULAIR) 10 mg tablet nightly olopatadine 0.6 % spray,non-aerosol olopatadine 0.6 % nasal spray ondansetron ODT (ZOFRAN-ODT) 4 mg disintegrating tablet DISSOLVE 2 TABLETS IN MOUTH EVERY 8 HOURS NEEDED FOR NAUSEA FOR VOMITING 20 tablet 0 OneTouch Delica Plus Lancet 33 gauge misc oxymetazoline (Rhofade) 1 % cream Rhofade 1 % topical cream pantoprazole DR (PROTONIX) 40 mg EC tablet Take 1 tablet (40 mg total) by mouth daily 60 tablet 11 pen needle, diabetic (BD Ultra-Fine Florina Pen Needle) 32 gauge x 5/32 needle USE DIRECTED up to 7 times daily 700 each 0 phentermine (ADIPEX-P) 37.5 mg tablet TAKE 1 TABLET BY MOUTH ONCE DAILY BEFORE BREAKFAST 30 tablet 0 propranoloL (INDERAL) 20 mg tablet Take 1 tablet (20 mg total) by mouth 2 (two) times a day prucalopride (MOTEGRITY) 2 mg tablet Take 1 tablet (2 mg total) by mouth daily [address] (ACIPHEX) 20 mg EC tablet Take 1 tablet (20 mg total) by mouth 2 (two) times a day (Patient not taking: Reported on 09/05/2023) rimegepant (NURTEC ODT) tablet,disintegrating Take 1 tablet (75 mg total) by mouth daily as needed semaglutide (OZEMPIC) 2 mg/dose (8 mg/3 mL) pen injector injection Inject 2 mg under the skin every7 days 9 mL 3 Soolantra 1 % cream APPLY A PEA SIZED AMOUNT TO RED AREAS ON THE FACE EVERY NIGHT AT BEDTIME topiramate (TOPAMAX) 200 mg tablet 1 tablet (200 mg total) 2 (two) times a day (Patient not taking:Reported on 09/05/2023) topiramate (TOPAMAX) 200 mg tablet daily (Patient not taking: Reported on 01/07/2024) traZODone (DESYREL) 50 mg tablet Take 1 tablet (50 mg total) by mouth nightly triamcinolone (KENALOG) 0.1 % ointment 2 (two) times a day No current facility-administered medications for this visit. Facility-Administered Medications Ordered in Other Visits Medication Dose Route Frequency Provider Last Rate Last Admin perflutren lipid (DEFINITY) 1.5 mL in sodium chloride 0.9% 10 mL syringe 1-10 mL intravenous Once in imaging Cristhian Fernandez MD Mushroom, Nut flavor, Pecan nut, and Pneumovax-23 [pneumococcal 23-gem ps vaccine] Family History Problem Relation Age of Onset [...] degeneration Maternal Grandmother Hearing loss Maternal Grandmother Social History Tobacco Use Smoking [...] not drink Frequency of Binge Drinking: Never ROS As outlined in HPI. Vital Signs Ht 162.6 cm (5' 4 ) Wt 98.9 kg (218 lb) BMI 37.42 kg/m?? Wt Readings from Last 6 Encounters: 02/12/24 98.9 kg (218 lb) 01/07/24 100.8 kg (222 lb 3.2 oz) 10/07/23 98.9 kg (218 lb) 09/05/23 99.2 kg (218 lb 11.2 oz) 06/26/23 97.8 kg (215 lb 9.6 oz) 06/20/23 96.6 kg (213 lb) Estimated body mass index is 37.42 kg/m?? as calculated from the following: Height as of this encounter: 162.6 cm (5' 4 ). Weight as of this encounter: 98.9 kg (218 lb). Physical Exam GENERAL: Well-appearing, in no acute distress. HEENT: Sclerae anicteric. LUNGS: Patient breathing comfortably. Lungs clear to auscultation bilaterally. CARDIOVASCULAR: Regular rate and rhythm with no murmur. ABDOMEN: soft, mild RUQ and LLQ tenderness, EXTREMITIES: No clubbing, cyanosis or edema. SKIN: No rash or jaundice. NEUROLOGIC: Grossly nonfocal on simple observation with normal insight, memory, affect, and orientation. MENTAL STATUS/PSYCH: Alert and oriented. Answers questions appropriately with normal affect. Assessment/Plan: GERD persistent symptoms despite Aciphex, pantoprazole, Severe reflux, burning in her chest, regurgitation of acid, choking on acid. Will try vonoprazan 10mg daily. Continue lifestyle management, no eating within 3 hours before bed. Advised to make sure to take doxy with lots of water and stay upright at least 30 minutes. Will start trial of Vonoprazan 10mg daily. Discussed. Chronic nausea/gastroparesis hx of abnl gastric emptying scan 2019, had gastric bypass in 2020. GI sxs improved initially after surgery then recurred late 2021. EGD as above 2022, continue PPI. She is on low dose Ozempic more for macular edema. Advised to continue low fat, small meals. No relief with motegrity. She takes 8mg Zofran BID-TID which does help. Chronic constipation/IBS-C Symptoms persist despite motegrity, failed Linzess, Amitiza. Will try Ibsrela instead. Will proceed with anorectal manometry. Discussed dyssynergic defecation, will proceedwith ARM to eval for that. She does use a squatty potty. Colon cancer screening last colonoscopy 10/2022, small polyp, repeat in 7 years I have asked her to return for a follow up visit in 6 months. DELMER Romero-C Physician Slab Grinder for Yancy Desai MD Division of Gastroenterology [facility] No orders of the defined types were placed in this encounter. Cosigned by Yancy Desai MD at 02/14/2024 1:49 PM FLOATING DERRICK OPERATOR TING DERRICK OPERATOR TING DERRICK OPERATOR Associated attestation - Yancy Desai MD - 02/14/2024 1:49 PM FLOATING DERRICK OPERATOR I have seen and examined the patient. I agree with the findings and plan of care as documented in the note by DELMER Romero. documented in this encounter Plan of Treatment Not on file documented as of this encounter Visit Diagnoses Diagnosis Gastroparesis- Primary Gastroesophageal reflux disease without esophagitis Esophageal reflux Other irritable bowel syndrome Nausea and vomiting, unspecified vomiting type Constipation, unspecified constipation type documented in this encounter Discontinued Medications Medication Sig Discontinue Reason Start Date End Da te ketorolac (TORADOL) 10 mg tablet 06/10/2023 02/12/2024 documented as of this encounter Historical Medications * This list may reflect changes made after this encounter. prucalopride (Motegrity) 2 mg tablet 1 tablet (2 mg total) daily 02/18/2024 added in this encounter Care Teams Manager Discovery Relationship Specialty Start Date End Date Deedee Low PA PCP - General 03/13/17 documented as of this encounter
--- OUTSIDE RECORDS SUMMARY | 2024-02-24 17:11 | XMS_ITS | Encounter Summary ---
Author Organization [facility] Address [address] [place] [address] Phone Care Team Providers Care Mixer Helper Name Role Phone Deedee Low Primary Care Pr ovider Encounter Details Date Type Department Care Team (Late st Contact Info) Description 12/19/2022 Documentation [facility] [address] [facility] [facility] 12th [place] [address] [place] [address] Rosa Ortiz Social History Tobacco Use Types Packs/Day Years Used Date Smoking Tobacco: Former Smokeless Tobacco: Never Comments:smoked for 3 years Alcohol Use Standard Drinks/Week Comments Yes 0 (1 standard drink = 0.6 oz pur e alcohol) AUDIT-C Answer Date Recorded Q1: How often do you have a drink containing alc ohol? Monthly or less 11/01/2022 Q2: How many drinks containi ng alcohol do you have on a typical day when you are drinking? 1 or 2 11/01/2022 Q3: How often do you have si x or more drinks on one occasion? Never 11/01/2022 PHQ-2 Answer Date Recorded PHQ-2 Total Score (If total score is 3 or more points, staff should administer the PHQ-9) 0 06/22/2021 Personal Safety Answer Date Recorded Have you ever been in or are you currently in a harmful physical or emotional relationship or is someone making you feel afraid or unsafe? 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
--- OUTSIDE RECORDS SUMMARY | 2024-02-24 17:11 | XMS_ITS | Encounter Summary ---
Author Organization [facility] Healthcare Address [address] [place] [address] Care Team Providers Care Advisory Internship Name Role Phone Zeyadseveriano Deedee DOWELL Primary Care Pr ovider Reason for Visit * Reason Comments Cold Symptoms Pt c/o sore throat, headache, sinus pain/pressure, sinus drainage, coughing up phlegm, chest congestion, body chills, body achesPt states no fever, chest pain, SOB, nausea, vomitingS/s started 3-4 days agoPt has self medicated with tylenol and dayquil. 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 Not on file Not on file documented as of this encounter Last Filed Vital Signs Vital Sign Reading Time Taken Comments Blood Pressure 136/84 12/24/2022 3:08 PM CDT Pulse 90 12/24/2022 3:08 PM CDT Temperature 36.8 ??C (98.2 ??F) 12/24/2022 3:08 PM CD T Respiratory Rate 18 12/24/2022 3:08 PM CDT Oxygen Saturation 98% 12/24/2022 3:08 PM CDT Inhaled Oxygen Concentration - - Weight 99.8 kg (220 lb) 12/24/2022 3:08 PM CDT Height 162.6 cm (5' 4 ) 12/24/2022 3:08 PM CDT Body Mass Index 37.76 12/24/2022 3:08 PM CDT documented in this encounter Ordered Prescriptions Prescription Sig Dispense Quantity Refills Last Filled Start Date End Date benzonatate (TESSALON) 200 mg capsuleIndications :Acute cough Take 1 capsule (200 mg total) by mouth 3 (three) times a day as needed for cough 30 capsule 12/24/2022 3 documented in this encounter Progress Notes * Baylee Hector NP - 12/24/2022 3:00 PM CDT Images from the original note were not included. Patient ID: Alannah Ruano is a 42 y.o. female followed by Deedee Low PA Chief Complaint Patient presents with Cold Symptoms Pt c/o sore throat, headache, sinus pain/pressure, sinus drainage, coughing up phlegm, chest congestion, body chills, body aches Pt states no fever, chest pain, SOB, nausea, vomiting S/s started 3-4 days ago Pt has self medicated with tylenol and dayquil. Patient presents to the clinic with reports of sore throat, headache, sinus pressure, chills, body aches, and cough for 4 days. Denies fevers, chest pain, difficulty breathing, vomiting, rash, and diarrhea. She has taken tylenol and dayquil for her symptoms. Review of Systems Constitutional: Positive for chills. Negative for fatigue and fever. HENT: Positive for congestion, sinus pressure and sore throat. Negative for ear pain, postnasal drip and rhinorrhea. Respiratory: Positive for cough. Negative for chest tightness, shortness of breath and wheezing. Cardiovascular: Negative for chest pain. Gastrointestinal: Negative for diarrhea, nausea and vomiting. Musculoskeletal: Positive for myalgias. Neurological: Positive for headaches. Vitals: 12/24/22 1508 BP: 136/84 BP Location: Left arm Patient Position: Sitting Pulse: 90 Resp: 18 Temp: 36.8 ??C (98.2 ??F) TempSrc: Oral SpO2: 98% Weight: 99.8 kg (220 lb) Height: 162.6 cm (5' 4 ) Recent Results (from the past 24 hour(s)) POC Influenza A/B, COVID-19 antigen Collection Time: 12/24/22 3:21 PM Result Value Ref Range Influenza A Ag, POC Negative Negative Influenza B Ag, POC Negative Negative COVID-19 Ag POC Presumptive Negative Presumptive Negative, Invalid POCT rapid strep A Collection Time: 12/24/22 3:21 PM Result Value Ref Range Rapid Strep A, POC Negative Negative Physical Exam Vitals reviewed. Constitutional: General: She is not in acute distress. Appearance: She is well-developed. She is not ill-appearing. HENT: Right Ear: Tympanic membrane, ear canal and external ear normal. Tympanic membrane is not injected,erythematous or bulging. Left Ear: Tympanic membrane, ear canal and external ear normal. Tympanic membrane is not injected, erythematous or bulging. Nose: Congestion present. No rhinorrhea. Right Turbinates: Swollen. Left Turbinates: Swollen. Right Sinus: No maxillary sinus tenderness or frontal sinus tenderness. Left Sinus: No maxillary sinus tenderness or frontal sinus tenderness. Mouth/Throat: Lips: Hector. Mouth: Mucous membranes are moist. Pharynx: Uvula midline. No pharyngeal swelling, oropharyngeal exudate or posterior oropharyngeal erythema. Cardiovascular: Rate and Rhythm: Normal rate and regular rhythm. Pulmonary: Effort: Pulmonary effort is normal. No respiratory distress. Breath sounds: Normal breath sounds. No decreased breath sounds, wheezing or rhonchi. Lymphadenopathy: Cervical: No cervical adenopathy. Skin: General: Skin is warm and dry. Neurological: Mental Status: She is alert and oriented to person, place, and time. Diagnoses and all orders for this visit: Acute cough (Primary) - POC Influenza A/B, COVID-19 antigen - Influenza A/B, RSV, and COVID-19 PCR Nasopharyngeal; Future - POCT rapid strep A - Throat culture Throat; Future - benzonatate (TESSALON) 200 mg capsule; Take 1 capsule (200 mg total) by mouth 3 (three) times a day as needed for cough Acute URI Orders Placed This Encounter Procedures Influenza A/B, RSV, and COVID-19 PCR Nasopharyngeal Standing Status: Future Standing Expiration Date: 12/25/2023 Order Specific Question: Is the Patient experiencing symptoms consistent with COVID? Answer: Yes Order Specific Question: Date of Symptom Onset Answer: 12/21/2022 Order Specific Question: Reason for testing? Answer: Symptomatic Throat culture Throat Standing Status: Future Standing Expiration Date: 12/25/2023 POC Influenza A/B, COVID-19 antigen Order Specific Question: Is the Patient experiencing symptoms consistent with COVID? Answer: Yes Order Specific Question: Date of Symptom Onset Answer: 12/20/2022 Order Specific Question: Is the patient hospitalized? Answer: No Order Specific Question: Is the patient admitted to an ICU? Answer: No Order Specific Question: Is this the first COVID-19 test for this patient? Answer: No Order Specific Question: Does the patient currently work in a healthcare facility with direct patient contact? Answer: No Order Specific Question: Is the patient a resident of a congregate care or living setting? Answer: No Order Specific Question: ? Answer: No POCT rapid strep A Assessment/Plan # acute upper respiatory infection --likely viral --exam findings warrant no antibiotics, antiviral, or steroid at this time --recommended antihistamine with or without decongestant pending symptoms --Ctlt-xsn-qnsnyea antihistamine such as Claritin or Zyrtec will aid in alleviation of symptoms such as nasal drainage and sinus drainage. Benadryl can be sedating, I suggest using it at bedtime. --Nasal spray, such as Flonase may also aid in nasal congestion. This may also be purchased over the counter. --COVID/FLU swab negative today, pending PCR --ED presentation with one or more of the following symptoms: fever uncontrolled with antipyretics,shortness of breath, chest discomfort, uncontrolled n/v/d --f/u with PCP in 5-7 days if symptoms do not improve/worsen Disposition Treatment plan including expectations, follow up, and return precautions discussed with patient/parent, verbalizes understanding. Medication dosage, use, and potential adverse reactions discussed with patient/parent. Advised to follow up with PCP if symptoms do not resolve as expected or sooner if condition worsens. Discussed Signs/symptoms warranting ER evaluation including worsening fever, increased shortness ofbreath, chest pain, severe N/V/D, or any other worrisome symptoms Patient and/or guardian was given an opportunity to ask questions, questions answered. Patient Education The main treatment for respiratory infections of any kind is to rest, eat healthy, and drink plentyof fluids. Cold symptoms will likely last anywhere from 7-10 days with symptoms feeling much worse on days 3-5. Antibiotic medications do not cure a cold nor do antibiotic medications help to shortenthe symptoms of viral illness. The following may help you feel better: Over the counter antihistamine such as loratadine (Claritin) or cetirizine (Zyrtec) to reduce secretions. The D formula includes pseudoephedrine and can be helpful as a decongestant but should not be used if you have a history of high blood pressure. Tessalon if prescribed for cough. Don't smoke and avoid second hand smoke. Suck on cough drops or hard candies to soothe a dry or sore throat. Cough drops won't stop your cough, but they may make your throat feel better. Over the counter loratadine (Claritin) or cetirizine (Zyrtec) to reduce secretions. Mucinex to thin secretions Breathe moist air from a humidifier, a hot shower, or a sink filled with hot water. The heat and moisture can help keep mucus in your airways moist so you can cough it out easily. Use nonprescription medicine, such as acetaminophen, ibuprofen, or aspirin, to relieve fever and body aches. Don't give aspirin to anyone younger than age 20. Rest more than usual. Drink plenty of fluids so that you do not become dehydrated and to keep mucous thin. Use an rlce-mvp-pvjfaln cough medicine such as Delsym or Robitussin. (Cough medicines may not be safe for young children or for people who have certain health problems.) Cough suppressants may help you to stop coughing. Expectorants, such as Mucinex, can help you bring up mucus when you cough. Follow up with primary care physician in 1 week, or sooner if symptoms worsen. If you experience worsening shortness of breath or fever >101, go to the Emergency Room. Baylee Hector NP Cosigned by Jose Morales MD at 12/24/2022 4:24 PM CDT documented in this encounter Plan of Treatment Not on file documented as of this encounter Procedures Procedure Name Priority Date/Time Associated Diagnosis Comments POCT RAPID STREP Routine 12/24/2022 3:21 PM CDT Acute cough POC INFLUENZA A/B, COVID-19 ANTIGEN Routine 12/24/2022 3:21 PM CDT Acute cough documented in this encounter Results * POCT rapid strep A (12/24/2022 3:21 PM CDT) Rapid Strep A, POC Negative Negative Swab 12/24/2022 3:21 PM CDT Baylee Hector NP POINT OF CARE TEST ORDERABLES Final Result * POC Influenza A/B, COVID-19 antigen (12/24/2022 3:21 PM CDT) Influenza A Ag, POC Negative Negative [facility] Influenza B Ag, POC Negative Negative [facility] COVID-19 Ag POC Presumptive Negative Presumptive Negative, Invalid [facility] Nasal 12/24/2022 3:21 PM CDT us 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 Comment:Testing performed by : [facility], [address] [place] [address]., [id number] Throat 12/24/2022 1:59 PM CDT 12/25/2022 2:53 AM CDT Narrative AILEEN - 12/25/2022 10:45 PM CDT Testing performed by [facility] ([phone]). us Baylee Hector NP LAB MICROBIOLOGY - GENERAL ORD ERABLES Final Result Performing Organization Address [facility] de Phone Number [facility] [address] Department of Laboratories [place], [place] [id number] * Influenza A/B, RSV, and COVID-19 PCR Nasopharyngeal (12/24/2022 1:59 PM CDT) COVID-19 RNA Negative Negative Influenza A RNA Negative Negative [facility] Influenza B RNA Negative Negative [facility] RSV RNA Negative Negative [facility] Comment: Interpretive data: This test is performed using the [employer] Xpress CoV-2/Flu/RSV plus assay. This is a multiplex, real-time reverse transcriptase PCR assay intended for the qualitative detection of nucleic acid from SARS-CoV-2, influenza A, influenza B, and respiratory syncytial virus. This assay has been reviewed by the FDA for Emergency Use Authorization (EUA). The performance characteristics have been verified by the performing laboratory. Results must be considered in the clinical context, and a negative result does not rule out infection. Interpretive Data last revised 2021. Nasopharyngeal 12/24/2022 1: 59 PM CDT 12/24/2022 11:05 PM CDT Narrative AILEEN ZHAO - 12/25/2022 12:52 AM CDT Is the Patient experiencing symptoms consistent with COVID?->Yes Date of Symptom Onset->12/21/22 Reason for testing?->Symptomatic Baylee Hector NP LAB MICROBIOLOGY - GENERAL ORD ERABLES Final Result AILEEN ZHAO [address] Department [place] [address] documented in this encounter Visit Diagnoses Diagnosis Acute cough- Primary Acute URI Acute upper respiratory infections of unspecified site Acute cough documented in this encounter Discontinued Medications Medication Sig Discontinue Reason Start Date End Da te phentermine (ADIPEX-P) 37.5 mg tablet TAKE 1 TABLET BY MOUTH ONCE DAILY BEFORE BREAKFAST Other 07/17/2022 12/24/2022 HYDROcodone-chlorphenir amine ER (TUSSIONEX PENNKINETIC) 2-1.6 mg/mL ER suspension TAKE 5 ML BY MOUTH EVERY 12 HOURS Other 06/27/2022 12/24/2022 documented as of this encounter Historical Medications * This list may reflect changes made after this encounter. Soolantra 1 % cream APPLY A PEA SIZED AMOUNT TO RED AREAS ON THE FACE EVERY NIGHT AT BEDTIME 09/20/2022 semaglutide (Ozempic) 0.25 mg or 0.5 mg (2 mg/3 mL) pen injector injection INJECT 0.5MG SUBCUTANEOUSLY ONCE A WEEK, EVERY 7 DAYS 3 semaglutide (Ozempic) 0.25 mg or 0.5 mg(2 mg/1.5 mL) pen injector injection INJECT 1/2 (ONE-HALF) MG SUBCUTANEOUSLY ONCE A WEEK 3 risperiDONE (RisperDAL) 0.5 mg tablet TAKE 1 TABLET TWICE A DAY (OR MAY TAKE AT NIGHT) 3 methylPREDNISol one (MEDROL) 4 mg tablet 3 insulin aspart (NovoLOG) 100 unit/mL vial for injection USE UP TO 160 UNITS DAILY USING INSULIN PUMP 3 insulin aspart (NovoLOG) 100 unit/mL (3 mL) pen for injection INJECT UP TO 44 UNITS 3 TIMES A DAY BEFORE MEALS 3 dexAMETHasone (DECADRON) 1 mg tablet TAKE 1 TABLET BY MOUTH WHEN DIRECTED 02/28/20 2 3 asenapine maleate (SAPHRIS) 5 mg tablet, sublingual PLACE 1 TABLET UNDER THE TONGUE EACH MORNING AND 2 TABLETS EACH NIGHT 3 added in this encounter Care Teams Advisory Internship Relationship Specialty Start Date End Date Deedee Lwo PA PCP - General 03/13/17 documented as of this encounter
--- OUTSIDE RECORDS SUMMARY | 2024-02-24 17:11 | XMS_ITS | Encounter Summary ---
Author Organization Formerly [facility] Address [address] [place] [address] Care Team Providers Care Block Layer Name Role Phone Zyeadseveriano Deedee DOWELL Primary Care Pr ovider Reason for Visit * Auth/Cert (Routine) Specialty Diagnoses / Procedures Referred By Angelita silva Referred To Contact Diagnoses Other irritable bowel syndrome Nausea and vomiting, unspecified vomiting type Gastroesophageal reflux disease without esophagitis Diarrhea, unspecified type Hematochezia Other irritable bowel syndrome [K58.8] Nausea and vomiting, unspecified vomiting type [R11.2] Gastroesophageal reflux disease without esophagitis [K21.9] Diarrhea, unspecified type [R19.7] Hematochezia [K92.1] Procedures GA COLONOSCOPY FLX DX W/COLLJ SPEC WHEN PFRMD GA ESOPHAGOGASTRODUODENOSCOPY TRANSORAL DIAGNOSTIC ESOPHAGOGASTRODUODENOSCOPY COLONOSCOPY Referral ID Status Reason Start Date Expiration Date Visits Re quested Visits Authorized [id number] 1 1 Encounter Details Date Type Department Care Team (Late st Contact Info) Description 11/01/2022 11:16 AM CDT Anesthesia Event [facility] Endoscopy [address] [place] [address] Johnny Woodward MD [address] [facility] [address] [place] [address] Anesthesia Record Procedure Summary Procedure Name Responsible Anesthesiologist Anesthesia Start Time Anesthesia Stop Time ESOPHAGOGASTRODUODENOSCOPY BIOPSY (Esophagus) Johnny Woodward MD 11/01/22 1116 11/01/22 1210 Events Date Time Event Comment 11/01/2022 1050 1102 AN Equip Check 1116 An Start 1117 In Room 1117 An Start Data 1118 Start Supplemental O2 1122 Patient Positioned Laterally 1122 An Induction The patient was reevaluated immediately before moderate or deep sedation use and before anesthesia induction. 1123 Anesthesia Ready 1124 Proc Start 1159 Proc Fin 1202 an stop data 1203 Out of Room 1210 An Stop 1211 Handoff to RN I completed my handoff to the receiving nurse during which we: 1. Patient identified 2. Responsible provider identified 3. Pertinent medical history reviewed 4. Procedure type and surgical course discussed 5. Intraoperative anesthetic management and any significant issues discussed 6. Expectations and concerns for postop period discussed 7. Questions solicited from receiving nurse 8. Patient disposition at the time of handoff: No value filed. Meds Name Total propofol 600 mg Lidocaine IV 2 % 5 mL ondansetron (ZOFRAN) injection 4 mg 0 mg ondansetron (ZOFRAN) injection 4 mg 0 mg sodium chloride 0.9% flush 0.5-20 mL 0 m L sodium chloride 0.9% infusion 1,200 mL * Agents Name O2 N2O Air * Blood No blood administrations on file. 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 Not on file Not on file documented as of this encounter OR Notes * Anesthesia Postprocedure Evaluation - Johnny Woodward MD - 11/01/2022 1:37 PM CDT Patient: Alannah Ruano Procedure Summary Date: 11/01/22 Room / Location: [facility] ENDOSCOPY ROOM 01 / [facility] ENDOSCOPY Anesthesia Start: 1116 Anesthesia Stop: 1210 Procedures: ESOPHAGOGASTRODUODENOSCOPY BIOPSY (Esophagus) COLON REMOVAL SNARE (Colon) Diagnosis: Other irritable bowel syndrome Nausea and vomiting, unspecified vomiting type Gastroesophageal reflux disease without esophagitis Diarrhea, unspecified type Hematochezia (Other irritable bowel syndrome [K58.8]) (Nausea and vomiting, unspecified vomiting type [R11.2]) (Gastroesophageal reflux disease without esophagitis [K21.9]) (Diarrhea, unspecified type [R19.7]) (Hematochezia [K92.1]) Providers: Yancy Desai MD Responsible Provider: Johnny oWodward MD Anesthesia Type: general ASA Status: 3 Anesthesia Type: general Last vitals BP 148/95 Pulse 73 Temp 36.3 ??C (97.3 ??F) (Temporal) Resp 10 SpO2 100% Anesthesia Post Evaluation Patient location during evaluation: PACU Patient participation: complete - patient participated Level of consciousness: fully awake Pain score: 0 Pain management: adequate Airway patency: adequate Evidence of recall: no Cardiovascular status: hemodynamically stable and acceptable Respiratory status: acceptable and room air Hydration status: acceptable Pt is: normothermic Nausea/Vomiting status: none No notable events documented. * Anesthesia Preprocedure Evaluation - Johnny Woodward MD - 11/01/2022 10:50 AM CDT Images from the original note were not included. Anesthesia Evaluation Alannah Ruano is a 42 y.o. female Procedure(s): ESOPHAGOGASTRODUODENOSCOPY COLONOSCOPY Pre-Op Diagnosis Codes: * Other irritable bowel syndrome [K58.8] * Nausea and vomiting, unspecified vomiting type [R11.2] * Gastroesophageal reflux disease without esophagitis [K21.9] * Diarrhea, unspecified type [R19.7] * Hematochezia [K92.1] Patient Active Problem List Diagnosis Type 2 diabetes mellitus with hyperglycemia, with long-term current use of insulin ([facility]) ([facility]) BMI 38.0-38.9,adult Hypertension associated with diabetes ([facility]) Mixed 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 Visual field constriction, bilateral Macular edema, diabetic ([facility]) Lumbar puncture headache Migraine Trigeminal neuralgia Recurrent boils Carpal tunnel syndrome Hypoglycemia due to type 1 diabetes mellitus ([facility]) ([facility]) Physical deconditioning Hyperlipidemia associated with type 2 diabetes mellitus ([facility]) Insulin pump in place Abscess of buttock Abscess of vulva Asthma Chronic recurrent sinusitis Claustrophobia Conjunctivitis Cough Cyst of pineal gland Diarrhea Disorder of vision Dyslipidemia Foot joint pain Gastroesophageal reflux disease without esophagitis Generalized anxiety disorder Hematochezia Hemorrhoids Irregular periods Irritable bowel syndrome Keratosis pilaris Mental disorder Microalbuminuric diabetic nephropathy ([facility]) ([facility]) Mild anxiety Mild major depression ([facility]) Occult blood in stools Panic attack Posterior rhinorrhea Routine general medical examination at a health care facility Seasonal allergic rhinitis due to pollen Severe recurrent major depression without psychotic features ([facility]) Uncontrolled type 2 diabetes mellitus Vitamin D deficiency Morbid (severe) obesity due to excess calories ([facility]) Nausea and vomiting Nonsustained ventricular tachycardia ([facility]) Past Medical History: Diagnosis Date Anxiety and depression Asthma Back pain Chronic constipation Cough Diarrhea Fatigue GERD (gastroesophageal reflux disease) Hypercholesterolemia Hypertension Migraines Muscle pain Numbness and tingling Pain with urination PONV (postoperative nausea and vomiting) Seizure (HCC) TMJ dysfunction Type 2 diabetes mellitus (HCC) Insulin pump Past Surgical History: Procedure Laterality Date ADENOIDECTOMY adenoidectomy COLONOSCOPY 2007 GASTRECTOMY ORAL SURGERY Oral Surgery SINUS SURGERY 2015 TONSILLECTOMY tonsillectomy OB History No obstetric history on file. Allergies Allergen Reactions Mushroom Anaphylaxis Nut Flavor Anaphylaxis MAINLY PECANS CAN TOLERATE PEANUTS Pecan Nut Anaphylaxis Pneumovax-23 [Pneumococcal 23-Giselle Ps Vaccine] Unknown Med List Status: Nurse Complete Set By: Elin Garza RN at 11/01/2022 9:56 AM Taking? Last Dose Start Date End Date Provider albuterol 2.5 mg /3 mL (0.083 %) nebulizer solution Past Month -- -- Lynn Moon MD albuterol ER (VOSPIRE ER) 8 mg 12 hr tablet 10/31/2022 02/16/16 -- Lynn Moon MD atorvastatin (LIPITOR) 40 mg tablet 10/31/2022 -- -- Lynn Moon MD azelastine (ASTELIN) 137 mcg (0.1 %) nasal spray 10/31/2022 -- -- ProviderLynn MD blood glucose diagnostic strip -- 09/24/19 -- Kurt Saini MD Use to check bg 7 times daily blood-glucose meter misc -- 09/24/19 -- Kurt Saini MD Check bg daily blood-glucose sensor (Dexcom G6 Sensor) device -- 10/17/22 -- Kurt Saini MD USE DIRECTED CHANGE EVERY 10 DAYS blood-glucose transmitter (Dexcom G6 Transmitter) device -- 01/01/22 -- Deedee Hussein PA Change q 3 months buPROPion (WELLBUTRIN) 100 mg tablet 11/01/2022 -- -- Lynn Moon MD carBAMazepine (TEGretol) 200 mg tablet 10/31/2022 12/10/19 -- Lynn Moon MD cetirizine (ZyrTEC) 10 mg tablet 10/31/2022 -- -- Lynn Moon MD dapagliflozin propanediol (FARXIGA) 10 mg tablet 10/31/2022 08/30/22 -- Deedee Hussein PA Take 1 tablet (10 mg total) by mouth daily diazePAM (VALIUM) 5 mg tablet 10/31/2022 07/25/20 -- Lynn Moon MD diphenhydrAMINE (BENADRYL) 25 mg capsule Past Week -- -- Lynn Moon MD doxycycline 100 mg capsule 10/31/2022 05/31/22 05/31/23 Sergio Rios MD Take 1 tablet/capsule (100 mg total) by mouth daily EPINEPHrine 0.3 mg/0.3 mL auto-injection syringe More than a month -- -- Lynn Moon MD ergocalciferol (VITAMIN D) 50,000 unit capsule 10/31/2022 -- -- Lynn Moon MD eszopiclone (LUNESTA) 1 mg tablet Past Week -- -- Lynn Moon MD fenofibrate (TRIGLIDE) 160 mg tablet -- -- -- Lynn Moon MD fexofenadine (OCHOA) 180 mg tablet -- 02/16/16 -- Lynn Moon MD fluticasone propion-salmeteroL (ADVAIR DISKUS) 250-50 mcg/dose diskus inhaler 10/31/2022 -- -- Lynn Moon MD glucagon (Baqsimi) 3 mg/actuation spray,non-aerosol More than a month 09/12/21 -- Debbie Smith NP One spray into one nostril once as directed by provider for low blood sugar. hydrOXYzine (ATARAX) 25 mg tablet -- -- -- Lynn Moon MD insulin lispro (HumaLOG) 100 unit/mL vial for injection 11/01/2022 08/30/22 -- Deedee Hussein PA Inject up to 100 units daily via insulin pump insulin pump cart,auto,BT-cntr (Omnipod 5 G6 Intro Kit, Gen 5,) cartridge -- 08/30/22 -- Deedee Hussein PA Change pod q 3days insulin pump cart,automated,BT (Omnipod 5 G6 Pods, Gen 5,) cartridge -- 08/30/22 -- Deedee Hussein PA Change pod q 3 days insulin pump cart,cont inf,BT (Omnipod Dash Pods, Gen 4,) cartridge -- 08/13/22 -- Kurt Saini MD Change q 3 days ketorolac (ACULAR LS) 0.4 % drops -- -- -- ProviderLynn MD lamoTRIgine (LaMICtal) 100 mg tablet 10/31/2022 05/29/21 -- Lynn Moon MD Linzess 72 mcg capsule 10/31/2022 10/23/22 -- Yancy Desai MD Take 1 capsule by mouth once daily losartan (COZAAR) 50 mg tablet 10/31/2022 -- -- Lynn Moon MD montelukast (SINGULAIR) 10 mg tablet 10/31/2022 07/11/20 -- Lynn Moon MD olopatadine 0.6 % spray,non-aerosol -- -- -- Lynn Moon MD ondansetron ODT (ZOFRAN-ODT) 4 mg disintegrating tablet 11/01/2022 06/13/22 -- Yancy Desai MD Take 2 tablets (8 mg total) by mouth every 8 (eight) hours as needed for nausea or vomiting [facility] Delica Plus Lancet 33 gauge misc -- 06/16/21 -- Lynn Moon MD oxymetazoline (Rhofade) 1 % cream -- -- -- Provider, MD Lynn pantoprazole DR (PROTONIX) 40 mg EC tablet 11/01/2022 -- -- Provider, MD Lynn pen needle, diabetic (BD Ultra-Fine Florina Pen Needle) 32 gauge x 5/32 needle -- 11/26/19 -- Kurt Saini MD USE DIRECTED up to 7 times daily polyethylene glycol (GoLYTELY) 236-22.74-6.74 -5.86 gram solution 11/01/2022 08/22/22 -- Yancy Desai MD Follow the instructions from Dr. Desai's office not the instructions on the bottle. propranoloL (INDERAL) 20 mg tablet 11/01/2022 12/24/19 -- Lynn Moon MD rimegepant (NURTEC ODT) tablet,disintegrating 10/31/2022 08/08/21 -- Lynn Moon MD tirzepatide (Mounjaro) 5 mg/0.5 mL pen injector 10/31/2022 09/24/22 -- Deedee Hussein PA Inject 5 mg under the skin every 7 days topiramate (TOPAMAX) 200 mg tablet 10/31/2022 08/09/21 -- Lynn Moon MD traZODone (DESYREL) 50 mg tablet Past Week -- -- Lynn Moon MD triamcinolone (KENALOG) 0.1 % ointment -- 09/16/21 -- Lynn Moon MD ziprasidone (GEODON) 20 mg capsule -- 07/25/20 -- Lynn Moon MD Flag for Review Taking? Last Dose Start Date End Date Provider HYDROcodone-chlorpheniramine ER (TUSSIONEX PENNKINETIC) 2-1.6 mg/mL ER suspension -- 06/27/22 -- Lynn Moon MD phentermine (ADIPEX-P) 37.5 mg tablet -- 07/17/22 -- Kurt Saini MD TAKE 1 TABLET BY MOUTH ONCE DAILY BEFORE BREAKFAST Current Facility-Administered Medications: ondansetron (ZOFRAN) injection 4 mg, 4 mg, intravenous, Once ondansetron (ZOFRAN) injection 4 mg, 4 mg, intravenous, Q6H PRN, 4 mg at 11/01/22 1008 sodium chloride 0.9% flush 0.5-20 mL, 0.5-20 mL, intra-catheter, PRN sodium chloride 0.9% infusion, 30 mL/hr, intravenous, Continuous, Last Rate: 30 mL/hr at 11/01/22 1008, 30 mL/hr at 11/01/22 1008 Social History Tobacco Use Smoking Status Former Smokeless Tobacco Never Tobacco Comments smoked for 3 years Alcohol Use: Not At Risk (11/01/2022) AUDIT-C Frequency of Alcohol Consumption: Monthly or less Average Number of Drinks: 1 or 2 Frequency of Binge Drinking: Never Substance and Sexual Activity Drug Use Never Comment: Rare alcohol use Family History Problem Relation Age of Onset Other (smoker) Mother Heart attack Father Family history of myocardial infarction - (Added by TW Conv) Stroke Father Migraines Father Hypertension Father Diabetes Father Asthma Father Hypertension Sister Family history of hypertension - (Added by TW Conv) Depression Sister Family history of depression - (Added by TW Conv) Mental illness Sister FH: mental illness - (Added by TW Conv) Migraines Sister Family history of migraine headaches - (Added by TW Conv) Hypertension Sister Family history of hypertension - (Added by TW Conv) Hypertension Sister Glaucoma Maternal Grandmother Macular degeneration Maternal Grandmother Hearing loss Maternal Grandmother Vitals: 11/01/22 1000 11/01/22 1002 BP: 160/93 160/93 Pulse: 77 80 Resp: 15 11 Temp: 36.2 ??C (97.2 ??F) SpO2: 99% 97% PT: No results found for requested labs within last 30 days. INR: No results found for requested labs within last 30 days. APTT: No results found for requested labs within last 30 days. Hgb A1C: No results found for requested labs within last 30 days. CBC RBC: No results found for requested labs within last 30 days. RDW: No results found for requested labs within last 30 days. MCHC: No results found for requested labs within last 30 days. MCH: No results found for requested labs within last 30 days. MCV: No results found for requested labs within last 30 days. Hct: No results found for requested labs within last 30 days. Hgb: No results found for requested labs within last 30 days. WBC: No results found for requested labs within last 30 days. MPV: No results found for requested labs within last 30 days. Platelets: No results found for requested labs within last 30 days. RDW CV: No results found for requested labs within last 30 days. RDW Sd: No results found for requested labs within last 30 days. BMP Glucose: 11/01/2022: 96 mg/dL Calcium: No results found for requested labs within last 30 days. Sodium: No results found for requested labs within last 30 days. Potassium: No results found for requested labs within last 30 days. CO2: No results found for requested labs within last 30 days. Chloride: No results found for requested labs within last 30 days. BUN: No results found for requested labs within last 30 days. Creatinine: No results found for requested labs within last 30 days. DOS Physical Exam Medical history, medications, and allergies reviewed. Attestation: This PAT evaluation Airway Exam: Mallampati: III Cervical ROM: FROM Cardiovascular Exam: Rate: regular Rhythm: regular Pulmonary Exam: LCTA, bilat Anesthesia Plan ASA 3 My patient is approved for the Anesthesia Controlled Medication protocol when under care of a UNDERWRITING CONSULTANT Planned anesthesia: General Informed Consent: Anesthesia plan and risks discussed with patient. Plan and Consent Comments: M obesity Consent and Attending signature: I and/or my designee have discussed the anesthesia plan, benefits, possible alternatives, parental presence at time of induction (if indicated), and clinically relevant risks that may include dental injury, unintentional awareness, and/or other complications. The patient and/or parent/legal guardian understand, and agree to proceed. All questions answered. documented in this encounter Plan of Treatment Not on file documented as of this encounter Visit Diagnoses Not on filedocumented in this encounter Administered Medications Inactive Administered Medications - up to 3 most recent administrations Medication Order MAR Action Action Date Dose Rate Site lidocaine (XYLOCAINE) 20 mg/mL (2 %) injection intravenous, As needed, Starting on [place] 11/01/22 at 1122, Anesthesia Intra-op, Indications: Administration of Local AnesthesiaIndications:Administrati on of Local Anesthesia Given 11/01/2022 11:22 AM CDT 5 mL propofoL (DIPRIVAN) 10 mg/mL IV intravenous, As needed, Starting on [place]el[place] 11/01/22 at 1122, Anesthesia Intra-op Given 11/01/2022 11:51 AM CDT 50 mg Given 11/01/2022 11:50 AM CDT 50 mg Given 11/01/2022 11:45 AM CDT 50 mg sodium chloride 0.9% infusion 30 mL/hr, intravenous, Continuous, Starting on [place]el[place] 11/01/22 at 1030, Pre-Procedure (GI) Rate/Dose Verify 11/01/2022 11:16 AM CDT 30 mL/hr New Bag 11/01/2022 10:08 AM CDT 30 mL/hr 30 mL/hr documented in this encounter Care Teams Block Layer Relationship Specialty Start Date End Date Deedee Low PA PCP - General 03/13/17 documented as of this encounter
--- OUTSIDE RECORDS SUMMARY | 2024-02-24 17:11 | XMS_ITS | Encounter Summary ---
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 Gender Identity Female 09/21/2019 9:02 PM CDT Sexual Orientation Not on file 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
--- OUTSIDE RECORDS SUMMARY | 2024-02-24 17:11 | XMS_ITS | Encounter Summary ---
Author Organization [facility] Address [address] [facility] [address] [place] [address] Care Team Providers Care Marine Photographer Name Role Phone Deedee Low Primary Care Pr ovider Encounter Details Date Type Department Care Team (Late st Contact Info) Description 10/24/2022 Telephone [facility] Cardiology [address] [facility] [address] [facility] [address] [place] [phone] Cristhian Fernandez MD [address] [facility] [address] [place] [address] Social History Tobacco Use Types Packs/Day Years [...] on file 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 * Telephone Encounter - Yanni Galvan - 10/24/2022 11:21 AM CDT Pt requesting a call in regard to how she would go about her insulin pump the day of stress test. Idid go over instructions with her, although she states the pump in continuous and isn't sure how togo about it. Contact:[phone] documented in this encounter Plan of Treatment Not on file documented as of this encounter Visit Diagnoses Not on filedocumented in this encounter Care Teams Marine Photographer Relationship Specialty Start Date End Date Deedee Low PA PCP - General 03/13/17 documented as of this encounter
--- OUTSIDE RECORDS SUMMARY | 2024-02-24 17:11 | XMS_ITS | Encounter Summary ---
Author Organization [facility] Address [address] [place] [address] Care Team Providers Care Termite Exterminator Name Role Phone Zeyadseveriano Deedee DOWELL Primary [...] Diarrhea, unspecified type [R19.7] Hematochezia [K92.1] Procedures AL COLONOSCOPY FLX DX W/COLLJ SPEC WHEN PFRMD AL ESOPHAGOGASTRODUODENOSCOPY TRANSORAL DIAGNOSTIC ESOPHAGOGASTRODUODENOSCOPY COLONOSCOPY Referral ID Status Reason Start Date Expiration Date Visits Re quested Visits Authorized [id number] 1 1 Encounter Details Date Type Department Care Team (Latest Contact Info) Description 11/01/2022 10:45 AM CDT - 11/01/2022 11:45 AM CDT Surgery [facility] Endoscopy [id number] [place] [id number] Yancy Desai MD [address] [place] [address] ESOPHAGOGASTRODUODENOSCOPY BIOPSY Surgery Details Date/Time Status Location OR Service Patient Class Case Class Case Type Trauma Case? 11/01/2022 10:45 AM Posted [facility] ENDOSCOPY Endo 01 Gastroenterology Outpatient Elective Panel 1 Procedure LRB Anes Op Region Wound Class Comments ESOPHAGOGASTRODUODENOSCOPY BIOPSY N/A Monitor Anesthesia Care Esophagus N/A COLON REMOVAL SNARE N/A Monitor Anesthesia Care Colon N/A Surgeon Surgeon Role Service Panel Yancy Desai MD Primary Gastroenterolog y 1 documented in this encounter Social History Tobacco Use Types Packs/Day Years Used Date Smoking Tobacco: Former Smokeless Tobacco: Never Tobacco Cessation:Counseling Given: Not Answered Comments:smoked for 3 years Alcohol Use Standard [...] on file 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 Gender Identity Female 09/21/2019 9:02 PM CDT Sexual Orientation Not on file 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 Not on file Not on file documented as of this encounter Last Filed Vital Signs Vital Sign Reading Time Taken Comments Blood Pressure 139/85 11/01/2022 11:05 AM CDT Pulse 75 11/01/2022 11:15 AM CDT Temperature 36.2 ??C (97.2 ??F) 11/01/2022 10:02 AM C DT Respiratory Rate 13 11/01/2022 11:15 AM CDT Oxygen Saturation 96% 11/01/2022 11:15 AM CDT Inhaled Oxygen Concentration - - Weight 97.5 kg (215 lb) 11/01/2022 10:02 AM CDT Height 162.6 cm (5' 4 ) 11/01/2022 10:02 AM CDT Body Mass Index 36.9 11/01/2022 10:02 AM CDT documented in this encounter Discharge Instructions * Attachments The following attachments cannot be sent through Care Everywhere. * Upper Endoscopy (Discharge Care) (Romanian) * Colonoscopy (Discharge Care) (Romanian) documented in this encounter Medications at Time of Discharge albuterol 2.5 mg /3 mL (0.083 %) nebulizer solution albuterol sulfate 2.5 mg/3 mL (0.083 %) solution for nebulization PRN albuterol ER (VOSPIRE ER) 8 mg 12 hr tablet every 12 (twelve) hours 6 atorvastatin (LIPITOR) 40 mg tablet 1 tablet (40 mg total) azelastine (ASTELIN) 137 mcg (0.1 %) nasal spray azelastine 137 mcg (0.1 %) nasal spray aerosol [place] 2 sprays every day by nasal route for 31 days. blood glucose diagnostic stripIndications:Ty pe 2 diabetes mellitus with hyperglycemia, with long-term current use of insulin ([facility]) Use to check bg 7 times daily 500 each 1 0 blood-glucose meter miscIndications:Typ e 2 diabetes mellitus with hyperglycemia, with long-term current use of insulin ([facility]) Check bg daily 1 each 0 buPROPion (WELLBUTRIN) 100 mg tablet Take 1 [...] mouth every 6 (six) hours as needed EPINEPHrine 0.3 mg/0.3 mL auto-injection syringe ergocalciferol (VITAMIN D) 50,000 unit capsule ergocalciferol (vitamin D2) 1,250 mcg (50,000 unit) capsule TAKE 1 CAPSULE BY MOUTH EVERY WEEK DIRECTED eszopiclone (LUNESTA) 1 mg tablet Take 1 tablet (1 mg total) by mouth daily fexofenadine (OCHOA) 180 mg tablet daily 6 fluticasone propion-salmeteroL (ADVAIR DISKUS) 250-50 mcg/dose diskus inhaler glucagon (Baqsimi) 3 mg/actuation spray,non-aerosol One spray into one nostril once as directed by provider for low blood sugar. 1 each 2 hydrOXYzine (ATARAX) 25 mg tablet Take 1 tablet (25 mg total) by mouth 1-2 nightly insulin pump cart,auto,BT-cntr (Omnipod 5 G6 Intro Kit, Gen 5,) cartridge Change pod q 3days 1 each 3 insulin pump cart,automated,BT (Omnipod 5 G6 Pods, Gen 5,) cartridge Change pod q 3 days 30 each 3 3 lamoTRIgine (LaMICtal) 100 mg tablet Take 1 tablet (100 mg total) by mouth daily 2 montelukast (SINGULAIR) 10 mg tablet nightly 1 olopatadine 0.6 % spray,non-aerosol olopatadine 0.6 % nasal spray OneTouch Delica Plus Lancet 33 gauge misc 2 oxymetazoline (Rhofade) 1 % cream Rhofade 1 % topical cream pen needle, diabetic (BD Ultra-Fine Florina Pen Needle) 32 gauge x needleIndications:T ype 2 diabetes mellitus with hyperglycemia, [...] total) 2 (two) times a day 2 traZODone (DESYREL) 50 mg tablet Take 1 tablet (50 mg total) by mouth nightly triamcinolone (KENALOG) 0.1 % ointment 2 (two) times a day 09/17/19 2 2 blood-glucose sensor (Dexcom G6 Sensor) device USE DIRECTED CHANGE EVERY 10 DAYS 9 each 3 3 10/21/19 24 blood-glucose transmitter (Dexcom G6 Transmitter) device Change q 3 months 1 each 3 2 01/22/20 23 dapagliflozin propanediol (FARXIGA) 10 mg tablet Take 1 tablet (10 mg total) by mouth daily 90 tablet 3 3 01/18/20 23 doxycycline 100 mg capsuleIndications: Prophylaxis, Medical Take 1 tablet/capsule (100 mg total) by mouth daily 90 tablet/capsu le 3 3 05/02/19 24 fenofibrate (TRIGLIDE) 160 mg tablet Take 1 tablet (160 mg total) by mouth daily 05/09/19 24 HYDROcodone-chlorph eniramine ER (TUSSIONEX PENNKINETIC) 2-1.6 mg/mL ER suspension TAKE 5 ML BY MOUTH EVERY 12 HOURS 3 12/25/19 23 insulin lispro (HumaLOG) 100 unit/mL vial for injection Inject up to 100 units daily via insulin pump 90 mL 1 3 12/09/19 24 insulin pump cart,cont inf,BT (Omnipod Dash Pods, Gen 4,) cartridgeIndication s:Type 2 diabetes mellitus with hyperglycemia, with long-term current use of insulin (HCC) Change q 3 days 30 each 3 3 02/28/20 23 ketorolac (ACULAR LS) 0.4 % drops Administer 1 drop into both eyes 2 (two) times a day 01/03/20 23 Linzess 72 mcg capsuleIndications: Other irritable bowel syndrome Take 1 capsule by mouth once daily 90 capsule 3 12/20/19 23 losartan (COZAAR) 50 mg tablet losartan 50 mg tablet TAKE 1 TABLET BY MOUTH EVERY DAY 03/21/19 24 ondansetron ODT (ZOFRAN-ODT) 4 mg disintegrating tablet Take 2 tablets (8 mg total) by mouth every 8 (eight) hours as needed for nausea or vomiting 20 tablet 6 3 01/18/[address] (PROTONIX) 40 mg EC tablet Take 1 tablet (40 mg total) by mouth 2 (two) times a day 12/20/19 23 phentermine (ADIPEX-P) 37.5 mg tablet TAKE 1 TABLET BY MOUTH ONCE DAILY BEFORE BREAKFAST 30 tablet 3 12/25/19 23 polyethylene glycol (GoLYTELY) 236-22.74-6.74 -5.86 gram solution Follow the instructions from Dr. Desai's office not the instructions on the bottle. 4000 mL 3 01/03/20 23 tirzepatide (Mounjaro) 5 mg/0.5 mL pen injector Inject 5 mg under the skin every 7 days 2 mL 2 3 12/21/19 23 ziprasidone (GEODON) 20 mg capsule Take 1 capsule (20 mg total) by mouth 2 (two) times a day with meals 1 01/03/20 23 documented as of this encounter Discharge Disposition Disposition Code Departure Means Destination Comment s Discharge to home or self care Wheelchair documented in this encounter H&P Notes * Yancy Desai MD - 11/01/2022 11:16 AM CDT Pre Endoscopy History and Physical Alannah Ruano is a 42 y.o. female who is here for Procedure(s): ESOPHAGOGASTRODUODENOSCOPY COLONOSCOPY The indication(s) for the procedure(s): nausea, GERD, suspected GI bleeding, constipation. History of gastric sleeve, history of gastroparesis Past Medical History: Diagnosis Date Anxiety and depression Asthma Back pain Chronic constipation Cough Diarrhea Fatigue GERD (gastroesophageal reflux disease) Hypercholesterolemia Hypertension Migraines Muscle pain Numbness and tingling Pain with urination PONV (postoperative nausea and vomiting) Seizure (HCC) TMJ dysfunction Type 2 diabetes mellitus (HCC) Insulin pump Past Surgical History: Procedure Laterality Date ADENOIDECTOMY adenoidectomy COLONOSCOPY 2006 GASTRECTOMY ORAL SURGERY Oral Surgery SINUS SURGERY 2015 TONSILLECTOMY tonsillectomy Social History Tobacco Use Smoking status: Former Smokeless tobacco: Never Tobacco comments: smoked for 3 years Substance and Sexual Activity Drug use: Never Comment: Rare alcohol use Sexual activity: Defer Alcohol Use: Not At Risk (11/01/2022) AUDIT-C Frequency of Alcohol Consumption: Monthly or less Average Number of Drinks: 1 or 2 Frequency of Binge Drinking: Never Family History [...] degeneration Maternal Grandmother Hearing loss Maternal Grandmother Mushroom, Nut flavor, Pecan nut, and Pneumovax-23 [pneumococcal 23-gem ps vaccine] Prior to Admission medications Medication Sig Start Date End Date Taking? Authorizing Provider albuterol 2.5 mg /3 mL (0.083 %) nebulizer solution albuterol sulfate 2.5 mg/3 mL (0.083 %) solution for nebulization PRN Yes Lynn Moon MD albuterol ER (VOSPIRE ER) 8 mg 12 hr tablet PATIENT TAKES 8.5 GM DAILY PRN 02/16/16 Yes Lynn Moon MD atorvastatin (LIPITOR) 40 mg tablet 1 tablet (40 mg total) Yes Lynn Moon MD azelastine (ASTELIN) 137 mcg (0.1 %) nasal spray azelastine 137 mcg (0.1 %) nasal spray aerosol [place] 2 sprays every day by nasal route for 31 days. Yes Lynn Moon MD buPROPion (WELLBUTRIN) 100 mg tablet Take 1 tablet (100 mg total) by mouth 2 (two) times a day Yes Lynn Moon MD carBAMazepine (TEGretol) 200 mg tablet Take 0.5 tablets (100 mg total) by mouth 3 (three) times a day 12/10/19 Yes Lynn Moon MD cetirizine (ZyrTEC) 10 mg tablet Take 1 tablet (10 mg total) by mouth daily Yes Lynn Moon MD dapagliflozin propanediol (FARXIGA) 10 mg tablet Take 1 tablet (10 mg total) by mouth daily 08/30/22Yes Deedee Hussein PA diazePAM (VALIUM) 5 mg tablet Take 1 tablet (5 mg total) by mouth every 8 (eight) hours as needed 07/25/20 Yes Lynn Moon MD diphenhydrAMINE (BENADRYL) 25 mg capsule Take 1 tablet/capsule (25 mg total) by mouth every 6 (six)hours as needed Yes Lynn Moon MD doxycycline 100 mg capsule Take 1 tablet/capsule (100 mg total) by mouth daily 05/31/22 05/31/23 Yes Sergio Rios MD ergocalciferol (VITAMIN D) 50,000 unit capsule ergocalciferol (vitamin D2) 1,250 mcg (50,000 unit) capsule TAKE 1 CAPSULE BY MOUTH EVERY WEEK DIRECTED Yes Lynn Moon MD eszopiclone (LUNESTA) 1 mg tablet Take 1 tablet (1 mg total) by mouth daily Yes Lynn Moon MD fluticasone propion-salmeteroL (ADVAIR DISKUS) 250-50 mcg/dose diskus inhaler Advair Diskus 250 mcg-50 mcg/dose powder for inhalation INHALE 1 PUFF BY MOUTH TWICE DAILY Yes Lynn Moon MD insulin lispro (HumaLOG) 100 unit/mL vial for injection Inject up to 100 units daily via insulin pump 08/30/22 Yes Deedee Hussein PA lamoTRIgine (LaMICtal) 100 mg tablet Take 1 tablet (100 mg total) by mouth daily 05/29/21 Yes Lynn Moon MD Linzess 72 mcg capsule Take 1 capsule by mouth once daily 10/23/22 Yes Yancy Desai MD losartan (COZAAR) 50 mg tablet losartan 50 mg tablet TAKE 1 TABLET BY MOUTH EVERY DAY Yes Lynn Moon MD montelukast (SINGULAIR) 10 mg tablet 07/11/20 Yes Lynn Moon MD ondansetron ODT (ZOFRAN-ODT) 4 mg disintegrating tablet Take 2 tablets (8 mg total) by mouth every 8 (eight) hours as needed for nausea or vomiting 06/13/22 Yes Yancy Desai MD pantoprazole DR (PROTONIX) 40 mg EC tablet Take 1 tablet (40 mg total) by mouth 2 (two) times a dayYes Lynn Moon MD polyethylene glycol (GoLYTELY) 236-22.74-6.74 -5.86 gram solution Follow the instructions from Dr. Desai's office not the instructions on the bottle. 08/22/22 Yes Yancy Desai MD propranoloL (INDERAL) 20 mg tablet Take 1 tablet (20 mg total) by mouth 2 (two) times a day 12/24/19 Yes Lynn Moon MD rimegepant (NURTEC ODT) tablet,disintegrating Take 1 tablet (75 mg total) by mouth daily as needed 08/08/21 Yes Lynn Moon MD tirzepatide (Mounjaro) 5 mg/0.5 mL pen injector Inject 5 mg under the skin every 7 days 09/24/22 Deedee El PA topiramate (TOPAMAX) 200 mg tablet 1 tablet (200 mg total) 2 (two) times a day 08/09/21 Yes Lynn Moon MD traZODone (DESYREL) 50 mg tablet Take 1 tablet (50 mg total) by mouth nightly Yes Lynn Moon MD blood glucose diagnostic strip Use to check bg 7 times daily 09/24/19 Kurt Saini MD blood-glucose meter misc Check bg daily 09/24/19 Kurt Saini MD blood-glucose sensor (Dexcom G6 Sensor) device USE DIRECTED CHANGE EVERY 10 DAYS 10/17/22 Kurt Saini MD blood-glucose transmitter (Dexcom G6 Transmitter) device Change q 3 months 01/01/22 Deedee Hussein PA EPINEPHrine 0.3 mg/0.3 mL auto-injection syringe Auvi-Q 0.3 mg/0.3 mL injection, auto-injector ADMINISTER 0.3 MG IN THE MUSCLE 1 TIME Lynn Moon MD fenofibrate (TRIGLIDE) 160 mg tablet Take 1 tablet (160 mg total) by mouth daily Patient not taking: Reported on 08/29/2022 Lynn Moon MD fexofenadine (OCHOA) 180 mg tablet TAKE 1 TABLET DAILY NEEDED. 02/16/16 Lynn Moon MD glucagon (Baqsimi) 3 mg/actuation spray,non-aerosol One spray into one nostril once as directed by provider for low blood sugar. 09/12/21 Debbie Smith, SOPHIA HYDROcodone-chlorpheniramine ER (TUSSIONEX PENNKINETIC) 2-1.6 mg/mL ER suspension TAKE 5 ML BY MOUTH EVERY 12 HOURS 06/27/22 Lynn Moon MD hydrOXYzine (ATARAX) 25 mg tablet Take 1 tablet (25 mg total) by mouth 1-2 nightly Patient not taking: Reported on 08/29/2022 Lynn Moon MD insulin pump cart,auto,BT-cntr (Omnipod 5 G6 Intro Kit, Gen 5,) cartridge Change pod q 3days 08/30/22 Deedee Hussein PA insulin pump cart,automated,BT (Omnipod 5 G6 Pods, Gen 5,) cartridge Change pod q 3 days 08/30/22 eDedee Hussein PA insulin pump cart,cont inf,BT (Omnipod Dash Pods, Gen 4,) cartridge Change q 3 days 08/13/22 Kurt Saini MD ketorolac (ACULAR LS) 0.4 % drops Administer 1 drop into both eyes 2 (two) times a day Lynn Moon MD olopatadine 0.6 % spray,non-aerosol olopatadine 0.6 % nasal spray ProviderLynn MD OneTouch Delica Plus Lancet 33 gauge misc 06/16/21 Lynn Moon MD oxymetazoline (Rhofade) 1 % cream Rhofade 1 % topical cream Lynn Moon MD pen needle, diabetic (BD Ultra-Fine Florina Pen Needle) 32 gauge x 5/32 needle USE DIRECTED up to 7 times daily 11/26/19 Kurt Saini MD phentermine (ADIPEX-P) 37.5 mg tablet TAKE 1 TABLET BY MOUTH ONCE DAILY BEFORE BREAKFAST 07/17/22 Kurt Saini MD triamcinolone (KENALOG) 0.1 % ointment APPLY TOPICALLY TO THE AFFECTED AREA THREE TIMES DAILY Patient not taking: Reported on 08/29/2022 09/16/21 Lynn Moon MD ziprasidone (GEODON) 20 mg capsule Take 1 capsule (20 mg total) by mouth 2 (two) times a day with meals Patient not taking: Reported on 08/29/2022 07/25/20 Provider, MD Lynn Review of Systems A pertinent, focused review of systems was completed and negative, except as noted above. OBJECTIVE: Vitals: Vitals: 11/01/22 1000 11/01/22 1002 BP: 160/93 160/93 Pulse: 77 80 Resp: 15 11 Temp: 36.2 ??C (97.2 ??F) TempSrc: Temporal SpO2: 99% 97% Weight: 97.5 kg (215 lb) Height: 162.6 cm (5' 4 ) Physical Exam: Airway: No significant abnormality. Cardiac: No significant abnormality. Pulmonary: No significant abnormality. Neurological: No significant abnormality. Gastrointestinal: No significant abnormality. ASA Score: per Anesthesia Sedation/Anesthesia Plan: per Anesthesia The risks and complications of the procedure have been explained to the patient. Informed consent was signed. Impression and plan: Will proceed with the planned procedure for the reasons stated above. documented in this encounter Procedure Notes * Yancy Desai MD - 11/01/2022 11:34 AM CDTAssociated Order(s): COLONOSCOPY ENDOSCOPY LAB Patient Name: Alannah Ruano Procedure Date: 11/01/2022 11:34 AM Date of : 1980 Admit Type: Outpatient Age: 42 Gender: Female Attending MD: Yancy Desai M.D. Room: [facility] ENDOSCOPY ROOM 01 Note Status: Finalized Procedure: Colonoscopy Indications: Change in bowel habits, constipation, possible blood in stool Providers: Yancy Desai M.D. Referring MD: Deedee Low PA-C Medicines: Monitored Anesthesia Care Complications: No immediate complications. Estimated Blood Loss: Estimated blood loss was minimal. Procedure: Pre-Anesthesia Assessment: - Prior to the procedure, a History and Physical was performed, and patient medications, allergies and sensitivities were reviewed. The patient's tolerance of previous anesthesia was reviewed. The benefits, risks and alternatives of the procedure and sedation were discussed and informed consent was obtained. All questions were answered. Please refer to the signed informed consent document in the medical record. The scope was passed under direct vision. The [id number] was introduced through the anus and advanced to the terminal ileum, with identification of the appendiceal orifice and IC valve. The colonoscopy was performed without difficulty. The patient tolerated the procedure well. The quality of the bowel preparation was evaluated using the BBPS (T[place]man Bowel Preparation Scale) with scores of: Right Colon = 2 (minor amount of residual staining, small fragments of stool and/or opaque liquid, but mucosa seen well), Transverse Colon = 2 (minor amount of residual staining, small fragments of stool and/or opaque liquid, but mucosa seen well) and Left Colon = 2 (minor amount of residual staining, small fragments of stool and/or opaque liquid, but mucosa seen well). The total BBPS score equals 6. The bowel prep was adequate. The bowel preparation used was GoLYTELY via split dose instruction. Findings: The perianal and digital rectal examinations were normal. The terminal ileum appeared normal. A 3 mm polyp was found in the rectum. The polyp was sessile. The polyp was removed with a cold snare. Resection and retrieval were complete. The exam was otherwise without abnormality on direct and retroflexion views. Impression: - The examined portion of the ileum was normal. - One 3 mm polyp in the rectum, removed with a cold snare. Resected and retrieved. - The examination was otherwise normal on direct and retroflexion views. Recommendation: - The patient will be observed post-procedure, until all discharge criteria are met. - Await pathology results. - Repeat colonoscopy in 7 years for surveillance based on pathology results. - Biopsy results are typically available within 7 -10 days and you will be contacted with the results. If you have not recieved your results within this timeframe, please call [phone] regarding your results. - Contact Information: During normal business hours - Please call the Nurse Coordinator: [phone] After hours, evening, nights, weekends and holidays - Please call the hospital trimmer and borer machine operator at and ask for the GI fellow environmental lawyer. - . Attending Participation: I personally performed the entire procedure. Electronically Signed By: Yancy Desai M.D. Yancy Desai M.D. 11/01/2022 12:03:25 PM Number of Addenda: 0 Note Initiated On: 11/01/2022 11:34 AM * Yancy Desai MD - 11/01/2022 11:14 AM CDTAssociated Order(s): EGD ENDOSCOPY LAB Patient Name: Alannah Ruano Procedure Date: 11/01/2022 11:14 AM Date of : 1980 Admit Type: Outpatient Age: 42 Gender: Female Attending MD: Yancy Desai M.D. Room: [facility] ENDOSCOPY ROOM 01 Note Status: Finalized Procedure: Upper GI endoscopy Indications: Follow-up of gastro-esophageal reflux disease, persistent symptoms despite PPI, Nausea, history of gastric sleeve, possible blood in stool Providers: Yancy Desai M.D. Referring MD: Deedee Low PA-C Medicines: Monitored Anesthesia Care Complications: No immediate complications. Estimated Blood Loss: Estimated blood loss was minimal. Procedure: Pre-Anesthesia Assessment: - Prior to the procedure, a History and Physical was performed, and patient medications, allergies and sensitivities were reviewed. The patient's tolerance of previous anesthesia was reviewed. After obtaining informed consent, the endoscope was passed under direct vision. Throughout the procedure, the patient's blood pressure, pulse, and oxygen saturations were monitored continuously. The [id number] was introduced through the mouth, and advanced to the second part of duodenum. Findings: LA Grade A (one or more mucosal breaks less than 5 mm, not extending between tops of 2 mucosal folds) esophagitis with no bleeding was found in the lower third of the esophagus. Biopsies were taken with a cold forceps for histology. The exam of the esophagus was otherwise normal. Evidence of a sleeve gastrectomy was found in the stomach. This was characterized by healthy appearing mucosa. Biopsies were taken with a cold forceps for histology. The exam of the stomach was otherwise normal. The examined duodenum was normal. Impression: - LA Grade A reflux esophagitis with no bleeding. Biopsied. - A sleeve gastrectomy was found, characterized by healthy appearing mucosa. Biopsied. - Normal examined duodenum. Recommendation: - Await pathology results. - Follow up in GI clinic for ongoing care. - Biopsy results are typically available within 7 -10 days and you will be contacted with the results. If you have not recieved your results within this timeframe, please call [phone] regarding your results. - Contact Information: During normal business hours - Please call the Nurse Coordinator: [phone] After hours, evening, nights, weekends and holidays - Please call the hospital trimmer and borer machine operator at and ask for the GI fellow environmental lawyer. - - Attending Participation: I personally performed the entire procedure. Electronically Signed By: Yancy Desai M.D. Yancy Desai M.D. 11/01/2022 11:34:46 AM Number of Addenda: 0 Note Initiated On: 11/01/2022 11:14 AM documented in this encounter Miscellaneous Notes * Pre-Procedure Instructions - Charlotte Juarez RN - 10/30/2022 10:00 AM CDT Instructed pt to removed dexcom device preproc and bring replacement with her as well as turning off insulin pump for procedure documented in this encounter Plan of Treatment Not on file documented as of this encounter Procedures Procedure Name Priority Date/Time Associated Diagnosis Comments COLONOSCOPY 11/01/2022 11:34 AM CDT SURGICAL PATHOLOGY Routine 11/01/2022 11:27 AM CDT Other irritable bowel syndrome Nausea and vomiting, unspecified vomiting type Gastroesophageal reflux disease without esophagitis Diarrhea, unspecified type Hematochezia COLON REMOVAL SNARE 11/01/2022 11:17 AM CDT Other irritable bowel syndrome Nausea and vomiting, unspecified vomiting type Gastroesophageal reflux disease without esophagitis Diarrhea, unspecified type Hematochezia ESOPHAGOGASTRODUODENOSCOPY BIOPSY 11/01/2022 11:17 AM CDT Other irritable bowel syndrome Nausea and vomiting, unspecified vomiting type Gastroesophageal reflux disease without esophagitis Diarrhea, unspecified type Hematochezia EGD 11/01/2022 11:14 AM CDT POCT GLUCOSE DEVICE Routine 11/01/2022 10:00 AM CDT POCT HCG, URINE Routine 11/01/2022 9:52 AM CDT documented in this encounter Results * COLONOSCOPY (11/01/2022 11:34 AM CDT) Anatomical Region Laterality Modality Other Narrative Procedure Note Yancy Desai MD - 11/01/2022 11:34 AM CDT ENDOSCOPY LAB Patient Name: Alannah Ruano Procedure Date: 11/01/2022 11:34 AM Date of : 1980 Admit Type: Outpatient Age: 42 Gender: Female Attending MD: Yancy Desai M.D. Room: [facility] ENDOSCOPY ROOM 01 Note Status: Finalized Procedure: Colonoscopy Indications: Change in bowel habits, constipation, possibleblood in stool Providers: Yancy Desai M.D. Referring MD: Deedee Low PA-C Medicines: Monitored Anesthesia Care Complications: No immediate complications. Estimated Blood Loss: Estimated blood loss was minimal. Procedure: Pre-Anesthesia Assessment: - Prior to the procedure, a History and Physicalwas performed, and patient medications, allergies and sensitivities were reviewed. The patient'stolerance of previous anesthesia was reviewed. The benefits, risks and alternatives of theprocedure and sedation were discussed and informed consentwas obtained. All questions were answered. Please referto the signed informed consent document in the medical record. The scope was passed under direct vision.The [id number] was introduced through the anusand advanced to the terminal ileum, with identificationof the appendiceal orifice and IC valve. Thecolonoscopy was performed without difficulty. The patient tolerated the procedure well. The quality of thebowel preparation was evaluated using the BBPS (BostonBowel Preparation Scale) with scores of: Right Colon = 2 (minor amount of residual staining, small fragmentsof stool and/or opaque liquid, but mucosa seen well), Transverse Colon = 2 (minor amount of residual staining, small fragments of stool and/or opaque liquid, but mucosa seen well) and Left Colon = 2 (minor amount of residual staining, small fragmentsof stool and/or opaque liquid, but mucosa seen well).The total BBPS score equals 6. The bowel prep was adequate. The bowel preparation used was GoLYTELYvia split dose instruction. Findings: The perianal and digital rectal examinations were normal. The terminal ileum appeared normal. A 3 mm polyp was found in the rectum. The polyp was sessile. Thepolyp was removed with a cold snare. Resection and retrieval werecomplete. The exam was otherwise without abnormality on direct and retroflexion views. Impression: - The examined portion of the ileum was normal. - One 3 mm polyp in the rectum, removed with a cold snare. Resected and retrieved. - The examination was otherwise normal on directand retroflexion views. Recommendation: - The patient will be observed post-procedure,until all discharge criteria are met. - Await pathology results. - Repeat colonoscopy in 7 years for surveillancebased on pathology results. - Biopsy results are typically available within 7-10 days and you will be contacted with the results. If you have not recieved your results within this timeframe, please call [phone] regarding your results. - Contact Information: During normal business hours - Please call theNurse Coordinator: [phone] After hours, evening, nights, weekends and holidays- Please call the hospital trimmer and borer machine operator at and ask for the GI fellow environmental lawyer. - . Attending Participation: I personally performed the entire procedure. Electronically Signed By: Yancy Desai M.D. Yancy Desai M.D. 11/01/2022 12:03:25 PM Number of Addenda: 0 Note Initiated On: 11/01/2022 11:34 AM Yancy Desai MD ENDOSCOPY PROCEDURES Fin al Result * Surgical pathology (11/01/2022 11:27 AM CDT) Tissue (Gastric/Stomach biopsy) 11/01/2022 11:27 AM CDT Tissue (Esophageal biopsy) 11/01/2022 11:30 AM CDT Tissue (Polyp(s), colon/colorectal, esophageal, gastric) 11/01/2022 11:57 AM CDT Narrative PATHOLOGY [facility] - 11/04/2022 11:18 AM CDT EPIC results best viewed via link to PDF [facility] Daniella Wright Laboratory of Surgical Pathology [place] [address] Note to Patients: This report may contain a detailed description of human tissue sent by a health care provider to the laboratory for pathologic evaluation. The content of this report is essential for diagnosis and may provide important critical findings. This information may be unfamiliar to patients to review without a medical professional present. It is advised that the patient review this report in the presence of a health care provider who can answer questions and explain the details. SURGICAL PATHOLOGY REPORT FINAL Patient Name: ?? ALANNAH RUANO Gender: ??F : ??1980 (Age: 42) Address: ??[address] [place] [address] ??[id number] Hospital #: ??[id number] Taken:11/01/2022 Received:11/01/2022 Reported: 11/04/2022 Patient Type: [facility] EP SAME Client [facility] Service: Gastro Location: Physician(s): ??Salvatore Chandler P.A. Diagnosis: A. ??Stomach, biopsy ? - Oxyntic and antral type gastric mucosa with minimal chronic gastritis ? - No acute inflammation or ulcer ? - No Helicobacter pylori identified by H&E sections ? - No intestinal metaplasia, dysplasia or malignancy B. ??Esophagus, biopsy ? - Squamous mucosa with no histopathologic abnormality ? - Separate fragment of oxyntic/fundic type gastric mucosa with no histopathologic abnormality ? - No acute or chronic inflammation, ulcers, or microorganisms by H&E sections ? - No intestinal metaplasia, dysplasia or malignancy C. ??Large intestine, rectum polyp, biopsy/polypectomy ? - Tubular adenoma ? - No high-grade dysplasia or malignancy id2/11/02/2022 08:20 By this signature, I attest that the above diagnosis is based upon my personal examination of the slides(and/or other material indicated in the diagnosis). Nba Noble MD Report Electronically Reviewed and Signed Out By ??Nba Noble MD 11/04/2022 11:18:02 Microscopic Description and Comment: Microscopic examination substantiates the above cited diagnosis. Ibeth Matias MD History: The patient is a 42-year-old woman with a history of a gastric sleeve resection in August 2020, type 2 diabetes mellitus, on chronic doxycycline, an irritable bowel syndrome, who presents for evaluation of nausea, constipation, and gastroesophageal reflux disease. ??Operative procedure: ??Upper GI endoscopy and colonoscopy. Specimen(s) Received: A: Stomach biopsy B: Esophagus biopsy C: Rectal polyp Gross Description: Received in three formalin jars labeled with the patient's identifiers. A. ??Labeled gastric biopsies are multiple irregular tissue fragment(s) (measuring 1.3 x 0.4 x 0.1 cm in aggregate). ?? Labeled A1. Jar 0. B. ??Labeled esophagus biopsy are multiple irregular tissue fragment(s) (measuring 0.9 x 0.3 x 0.1 cm in aggregate. ??Stained with hematoxylin). ?? Labeled B1. Jar 0. C. ??Labeled rectal colon polyp; cold snare removal is a single irregular tissue fragment(s) (measuring 0.8 x 0.6 x 0.1 cm). ?? Labeled C1. Jar 0. cnewho/11/01/2022 15:01 PA(s): [facility] Maloney[facility] By this signature, I attest that the above diagnosis is based upon my personal examination of the slides(and/or other material). Addenda/Procedures Microscopic slide review and interpretation for this case was performed at [facility], Department of Surgical Pathology, [address] [facility], [place] [id number], ??[facility], [place] ??[address] ?? CLIA # [id number] The performance characteristics of some immunohistochemical stains, fluorescence in-situ hybridization tests and immunophenotyping by flow cytometry cited in this report (if any) were determined by the Surgical Pathology and Flow Cytometry Departments at [facility] as part of an ongoing senior quality assurance analyst program and in compliance with federally mandated regulations drawn from the Clinical Laboratory Improvement Act of 1988 (CLIA '88). ??Some of these tests rely on the use of analyte specific reagents and are subject to specific labeling requirements by the US Food and Drug Administration. ??Such diagnostic tests may only be performed in a facility that is certified by the Department of Health and Human Services as a high complexity laboratory under CLIA '88. ??The FDA has determined that such clearance or approval is not necessary. ??This test is used for clinical purposes. ??It should not be regarded as investigational or for research. ??Nevertheless, federal rules concerning the medical use of analyte specific reagents require that the following disclaimer be attached to the report: This test was developed and its performance characteristics determined by the Surgical Pathology and Flow Cytometry Departments of [facility]. ??It has not been cleared or approved by the U. S. Food and Drug Administration. IMAGES AND SCANNED DOCUMENTS, IF INCLUDED, ONLY VIEWABLE IN PDF VERSION OF REPORT Yancy Desai MD LAB PATHOLOGY ORDERABLES Final Result PATHOLOGY [facility] [phone] * EGD (11/01/2022 11:14 AM CDT) Anatomical Region Laterality Modality Other Narrative Procedure Note Yancy Desai MD - 11/01/2022 11:14 AM CDT ENDOSCOPY LAB Patient Name: Alannah Ruano Procedure Date: 11/01/2022 11:14 AM Date of : 1980 Admit Type: Outpatient Age: 42 Gender: Female Attending MD: Yancy Desai M.D. Room: [facility] ENDOSCOPY ROOM 01 Note Status: Finalized Procedure: Upper GI endoscopy Indications: Follow-up of gastro-esophageal reflux disease, persistent symptoms despite PPI, Nausea, history of gastric sleeve, possible blood in stool Providers: Yancy Desai M.D. Referring MD: Deedee Low PA-C Medicines: Monitored Anesthesia Care Complications: No immediate complications. Estimated Blood Loss: Estimated blood loss was minimal. Procedure: Pre-Anesthesia Assessment: - Prior to the procedure, a History and Physicalwas performed, and patient medications, allergies and sensitivities were reviewed. The patient'stolerance of previous anesthesia was reviewed. After obtaining informed consent, the endoscope was passed under direct vision. Throughout theprocedure, the patient's blood pressure, pulse, and oxygen saturations were monitored continuously. The [id number] was introduced through the mouth,and advanced to the second part of duodenum. Findings: LA Grade A (one or more mucosal breaks less than 5 mm, not extending between tops of 2 mucosal folds) esophagitis with no bleeding wasfound in the lower third of the esophagus. Biopsies were taken with a cold forceps for histology. The exam of the esophagus was otherwise normal. Evidence of a sleeve gastrectomy was found in the stomach. This was characterized by healthy appearing mucosa. Biopsies were taken with a cold forceps for histology. The exam of the stomach was otherwise normal. The examined duodenum was normal. Impression: - LA Grade A reflux esophagitis with no bleeding. Biopsied. - A sleeve gastrectomy was found, characterized by healthy appearing mucosa. Biopsied. - Normal examined duodenum. Recommendation: - Await pathology results. - Follow up in GI clinic for ongoing care. - Biopsy results are typically available within 7-10 days and you will be contacted with the results. If you have not recieved your results within this timeframe, please call [phone] regarding your results. - Contact Information: During normal business hours - Please call theNurse Coordinator: [phone] After hours, evening, nights, weekends and holidays- Please call the hospital trimmer and borer machine operator at and ask for the GI fellow environmental lawyer. - - Attending Participation: I personally performed the entire procedure. Electronically Signed By: Yancy Desai M.D. Yancy Desai M.D. 11/01/2022 11:34:46 AM Number of Addenda: 0 Note Initiated On: 11/01/2022 11:14 AM Yancy Desai MD ENDOSCOPY PROCEDURES Fin al Result * POCT glucose (11/01/2022 10:00 AM CDT) Pathologist [facility] Glucose, POC 96 70 - 199 mg/dL AILEEN LANGFORD Comment: Interpretive Data Glucose is assumed to be non-fasting. Fasting Glucose reference ranges are: 0 - 150 years: ??70 mg/dL - 99 mg/dL Current interpretive data was last revised on 2013. POC Performer [id number] [facility] Device Number [id number] [facility] Blood 11/01/2022 10:0 0 AM CDT 11/01/2022 10:00 AM CDT Yancy Desai MD LAB POCT ORDERABLES - DE VICE Final Result Performing Organization Address City/State/[facility] de Phone Number [facility] [address] [facility] [place] [address] * POCT hCG, urine (11/01/2022 9:52 AM CDT) HCG, ur, POC Negative Lot Number [id number] QC Backgroud Clear Acceptable QC Control Line Acceptable Urine 11/01/2022 9:52 AM CDT Lynn Moon MD POINT OF CARE TEST ORDERA BLES Final Result documented in this encounter Visit Diagnoses Diagnosis Other irritable bowel syndrome Nausea and vomiting, unspecified vomiting type Gastroesophageal reflux disease without esophagitis Esophageal reflux Diarrhea, unspecified type Hematochezia Blood in stool Irritable bowel syndrome Other irritable bowel syndrome Nausea and vomiting, unspecified vomiting type Gastroesophageal reflux disease without esophagitis Esophageal reflux Diarrhea, unspecified type Hematochezia Blood in stool documented in this encounter Admitting Diagnoses Diagnosis Irritable bowel syndrome Gastroesophageal reflux disease without esophagitis Esophageal reflux Diarrhea Hematochezia Blood in stool Nausea and vomiting Nausea with vomiting documented in this encounter Administered Medications Inactive Administered Medications - up to 3 most recent administrations Medication Order MAR Action Action Date Dose Rate Site famotidine (PEPCID) injection 20 mg 20 mg, intravenous, Administer over 2 Minutes, Once, On Mariaelena 11/01/22 at 1030, For 1 dose, Pre-Op Given 11/01/2022 10:08 AM CDT 20 mg ondansetron (ZOFRAN) injection 4 mg 4 mg, intravenous, Administer over 2 Minutes, Every 6 hours PRN, nausea, vomiting, Starting on Mariaelena 11/01/22 at 0949, Pre-Procedure (GI) Given 11/01/2022 12:21 PM CDT 4 mg Given 11/01/2022 10:08 AM CDT 4 mg sodium chloride 0.9% flush 0.5-20 mL 0.5-20 mL, intra-catheter, As needed, line care, Starting on Mariaelena 11/01/22 at 0949, Pre-Procedure (GI), Flush volume based on line type and size. Flush before and after each use. , Indications: FlushingIndications:Flushing sodium chloride 0.9% infusion 30 mL/hr, intravenous, Continuous, Starting on Mariaelena 11/01/22 at 1030, Pre-Procedure (GI) Rate/Dose Verify 11/01/2022 11:16 AM CDT 30 mL/hr New Bag 11/01/2022 10:08 AM CDT 30 mL/hr 30 mL/hr documented in this encounter Active and Recently Administered Medications Times are shown in CDT. Scheduled Medication Order 10/30/2022 10/31/2022 11/01/2022 famotidine (PEPCID) injection 20 mg (COMPLETED) 20 mg, intravenous, Administer over 2 Minutes, Once, On Mariaelena 11/01/22 at 1030, For 1 dose, Pre-Op 1008 (Given - Provid er: Elin Garza RN) Continuous Medication Order 10/30/2022 10/31/2022 11/01/2022 sodium chloride 0.9% infusion 30 mL/hr, intravenous, Continuous, Starting on Mariaelena 11/01/22 at 1030, Pre-Procedure (GI) 1008 (New Bag - Prov ider: Elin Garza RN)1116 (Rate/Dose Verify - Provider: Maribell Echavarria CRNA)1145 (Anesthesia Volume Adjustment - Provider: Nadia Smyth CRNA)1159 (Anesthesia Volume Adjustment - Provider: Nadia Smyth CRNA)1650 (Due: Stopped) PRN Medication Order 10/30/2022 10/31/2022 11/01/2022 ondansetron (ZOFRAN) injection 4 mg 4 mg, intravenous, Administer over 2 Minutes, Every 6 hours PRN, nausea, vomiting, Starting on Mariaelena 11/01/22 at 0949, Pre-Procedure (GI) 1008 (Given - Provid er: Elin Garza RN)1221 (Given - Provider: Tona Mcdaniels RN) sodium chloride 0.9% flush 0.5-20 mL 0.5-20 mL, intra-catheter, As needed, line care, Starting on Mariaelena 11/01/22 at 0949, Pre-Procedure (GI), Flush volume based on line type and size. Flush before and after each use. , Indications: Flushing documented in this encounter Orders Medications Ordered That Jorje ht Not Have Been Administered Count Last Ordered Date First Ordered Date famotidine (PEPCID) injection 20 mg 1 11/01 ondansetron (ZOFRAN) injection 4 mg 1 11/01 sodium chloride 0.9% flush 0.5-20 mL 1 10/10 Discharge Count Last Ordered Date First Orde red Date DISCHARGE PATIENT 1 11/01/2022 documented in this encounter Care Teams Termite Exterminator Relationship Specialty Start Date End Date Deedee Low PA PCP - General 03/13/17 documented as of this encounter
--- OUTSIDE RECORDS SUMMARY | 2024-02-24 17:11 | XMS_ITS | Encounter Summary ---
Author Organization [facility] Healthcare Address [address] [place] [address] Care Team Providers Care Superintendent Sales Name Role Phone Jennifermary Deedee DOWELL Primary Care Pr ovider Reason for Visit * Reason Comments Back Pain Pt complains of the following symptoms mid-back pain that has been radiating up causing migraines for the past 4 days. 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 Not on file Not on file documented as of this encounter Last Filed Vital Signs Vital Sign Reading Time Taken Comments Blood Pressure 119/88 02/23/2023 2:25 PM NATURAL RESOURCES EXTENSION EDUCATOR Pulse 97 02/23/2023 2:25 PM NATURAL RESOURCES EXTENSION EDUCATOR Temperature 36.7 ??C (98.1 ??F) 02/23/2023 2:25 PM CS T Respiratory Rate 16 02/23/2023 2:25 PM NATURAL RESOURCES EXTENSION EDUCATOR Oxygen Saturation 98% 02/23/2023 2:25 PM NATURAL RESOURCES EXTENSION EDUCATOR Inhaled Oxygen Concentration - - Weight 97.5 kg (215 lb) 02/23/2023 2:25 PM NATURAL RESOURCES EXTENSION EDUCATOR Height 162.6 cm (5' 4 ) 02/23/2023 2:25 PM NATURAL RESOURCES EXTENSION EDUCATOR Body Mass Index 36.9 02/23/2023 2:25 PM NATURAL RESOURCES EXTENSION EDUCATOR documented in this encounter Progress Notes * Angelita Schilling NP - 02/23/2023 2:15 PM CST Images from the original note were not included. Subjective/Objective Patient ID: Alannah Ruano is a 42 y.o. female. Chief Complaint Back Pain (Pt complains of the following symptoms mid-back pain that has been radiating up causing migraines for the past 4 days. ) Pt presents to [facility] Back Pain This is a new problem. The current episode started in the past 7 days. The problem has been gradually worsening since onset. The pain is present in the lumbar spine and thoracic spine. The quality ofthe pain is described as aching and burning. The pain is at a severity of 7/10. The pain is severe (States she is unable to perform activities of daily living such as even getting in the shower, raising her hands above her head etc.). The pain is The same all the time. The symptoms are aggravated by sitting, standing and twisting. Stiffness is present All day. Associated symptoms include headaches, numbness (And tingling in bilateral upper extremities), paresthesias, tingling and weakness. Pertinent negatives include no abdominal pain, bladder incontinence, bowel incontinence, chest pain, dysuria, fever, leg pain, paresis, pelvic pain, perianal numbness or weight loss. Risk factors include obesity and sedentary lifestyle (Patient has history of herniated disc, congenital spinal fusion). Tr eatments tried: Tylenol. The treatment provided no relief. Heart feels racey, pain is so bad can't take a shower Started Saturday, 5 days ago No trauma Burning pain 24 hours Also started with migraine a few days ago, and has hx of migraines Hx of herniated disc and congenital fusion and getting joint injections and injections for sacroiliac joint. Sees pain management. Review of Systems Constitutional: Negative for fever and weight loss. Cardiovascular: Negative for chest pain. States heart is racing due to the extreme pain Gastrointestinal: Negative for abdominal pain and bowel incontinence. Genitourinary: Negative for bladder incontinence, dysuria and pelvic pain. Musculoskeletal: Positive for back pain. Decreased range of motion in bilateral upper extremities Skin: Negative for rash. Neurological: Positive for tingling, weakness, numbness (And tingling in bilateral upper extremities), headaches and paresthesias. Physical Exam Vitals and nursing note reviewed. Constitutional: General: She is not in acute distress. Cardiovascular: Rate and Rhythm: Normal rate. Pulses: Normal pulses. Pulmonary: Effort: Pulmonary effort is normal. Musculoskeletal: Comments: Thoracic spine exam - decreased active range of motion throughout thoracic spine region secondary to pain; pain diffuse over the thoracic spine without step-off, deformity, ecchymosis, erythema, warmth, or swelling; decreased motor and sensory to bilateral upper extremities Skin: General: Skin is warm and moist. Capillary Refill: Capillary refill takes less than 2 seconds. Findings: No ecchymosis, erythema or rash. Neurological: Mental Status: She is alert. Vitals: 02/23/23 1425 BP: 119/88 Pulse: 97 Resp: 16 Temp: 36.7 ??C (98.1 ??F) SpO2: 98% Weight: 97.5 kg (215 lb) Height: 162.6 cm (5' 4 ) No results found. Past Medical History: Diagnosis Date Anxiety and depression Asthma Back pain Chronic constipation Cough Diarrhea Fatigue GERD (gastroesophageal reflux disease) Hypercholesterolemia Hypertension Migraines Muscle pain Numbness and tingling Pain with urination PONV (postoperative nausea and vomiting) Seizure (HCC) TMJ dysfunction Type 2 diabetes mellitus (HCC) Insulin pump Current Outpatient Medications: albuterol 2.5 mg /3 mL (0.083 %) nebulizer solution, albuterol sulfate 2.5 mg/3 mL (0.083 %) solution for nebulization PRN, Disp: , Rfl: albuterol ER (VOSPIRE ER) 8 mg 12 hr tablet, , Disp: , Rfl: Amzeeq 4 % foam, , Disp: , Rfl: atorvastatin (LIPITOR) 40 mg tablet, 1 tablet (40 mg total), Disp: , Rfl: azelastine (ASTELIN) 137 mcg (0.1 %) nasal spray, azelastine 137 mcg (0.1 %) nasal spray aerosol [place] 2 sprays every day by nasal route for 31 days., Disp: , Rfl: bevacizumab (AVASTIN) 25 mg/mL injection, , Disp: , Rfl: blood glucose diagnostic strip, Use to check bg 7 times daily, Disp: 500 each, Rfl: 1 blood-glucose meter misc, Check bg daily, Disp: 1 each, Rfl: 0 blood-glucose sensor (Dexcom G6 Sensor) device, USE DIRECTED CHANGE EVERY 10 DAYS, Disp: 9 each,Rfl: 3 blood-glucose transmitter (Dexcom G6 Transmitter) device, USE [...] total) by mouth daily, Disp: , Rfl: diazePAM (VALIUM) 5 mg tablet, Take 1 tablet (5 mg total) by mouth every 8 (eight) hours as needed,Disp: , Rfl: diphenhydrAMINE (BENADRYL) 25 mg capsule, Take 1 tablet/capsule (25 mg total) by mouth every 6 (six) hours as needed, Disp: , Rfl: doxycycline 100 mg capsule, Take 1 tablet/capsule (100 mg total) by mouth daily, Disp: 90 tablet/capsule, Rfl: 3 empagliflozin (JARDIANCE) 25 mg tablet, Take 1 tablet (25 mg total) by mouth daily, Disp: 90 tablet, Rfl: 3 EPINEPHrine 0.3 mg/0.3 mL auto-injection syringe, Auvi-Q 0.3 mg/0.3 mL injection, auto-injector ADMINISTER 0.3 MG IN THE MUSCLE 1 TIME, Disp: , Rfl: ergocalciferol (VITAMIN D) 50,000 [...] , Rfl: fexofenadine (OCHOA) 180 mg tablet, TAKE 1 TABLET DAILY NEEDED., Disp: , Rfl: fluticasone propion-salmeteroL (ADVAIR DISKUS) 250-50 mcg/dose diskus inhaler, Advair Diskus 250 mcg-50 mcg/dose powder for inhalation INHALE 1 PUFF BY MOUTH TWICE DAILY, Disp: , Rfl: glucagon (Baqsimi) 3 mg/actuation spray,non-aerosol, One spray into one nostril once as directed byprovider for low blood sugar., Disp: 1 each, Rfl: 0 hydrOXYzine (ATARAX) 25 mg tablet, Take 1 tablet (25 mg total) by mouth 1-2 nightly, Disp: , Rfl: insulin lispro (HumaLOG) 100 unit/mL vial for injection, Inject up to 100 units daily via insulin pump, Disp: 90 mL, Rfl: 1 insulin pump cart,auto,BT-cntr (Omnipod 5 G6 Intro Kit, Gen 5,) cartridge, Change pod q 3days, Disp: 1 each, Rfl: 0 insulin pump cart,automated,BT (Omnipod 5 G6 Pods, Gen 5,) cartridge, Change pod q 3 days, Disp: 30each, Rfl: 3 insulin pump cart,cont inf,BT (Omnipod Dash Pods, Gen 4,) cartridge, Change q 3 days, Disp: 30 each, Rfl: 3 lamoTRIgine (LaMICtal) 100 mg tablet, Take 1 tablet (100 mg total) by mouth daily, Disp: , Rfl: losartan (COZAAR) 50 mg tablet, losartan 50 mg tablet TAKE 1 TABLET BY MOUTH EVERY DAY, Disp: , Rfl: lubiprostone (AMITIZA) 8 mcg capsule, Take 1 capsule (8 mcg total) by mouth 2 (two) times a day with meals, Disp: 60 capsule, Rfl: 2 montelukast (SINGULAIR) 10 mg tablet, , Disp: , Rfl: olopatadine 0.6 % spray,non-aerosol, olopatadine 0.6 % nasal spray, Disp: , Rfl: ondansetron ODT (ZOFRAN-ODT) 4 mg disintegrating tablet, DISSOLVE 2 TABLETS IN MOUTH EVERY 8 HOURS NEEDED FOR NAUSEA FOR VOMITING, Disp: 20 tablet, Rfl: 0 OneTouch Delica Plus Lancet 33 gauge misc, , Disp: , Rfl: oxymetazoline (Rhofade) 1 % cream, Rhofade 1 % topical cream, Disp: , Rfl: pen needle, diabetic (BD Ultra-Fine Florina Pen Needle) 32 gauge x 5/32 needle, USE DIRECTED up to7 times daily, Disp: 700 each, Rfl: 0 phentermine (ADIPEX-P) 37.5 mg tablet, Take 1 tablet (37.5 mg total) by mouth daily before breakfast, Disp: 30 tablet, Rfl: 2 propranoloL (INDERAL) 20 mg tablet, Take 1 tablet (20 mg total) by mouth 2 (two) times a day, Disp:, Rfl: RABEprazole DR (ACIPHEX) 20 mg EC tablet, Take 1 tablet (20 mg total) by mouth 2 (two) times a day,Disp: 60 tablet, Rfl: 2 rimegepant (NURTEC ODT) tablet,disintegrating, Take 1 tablet (75 mg total) by mouth daily as needed, Disp: , Rfl: semaglutide (OZEMPIC) 1 mg/dose (4 mg/3 mL) pen injector injection, Inject 1 mg under the skin every 7 days, Disp: 9 mL, Rfl: 3 Soolantra 1 % cream, APPLY A PEA SIZED AMOUNT TO RED AREAS ON THE FACE EVERY NIGHT AT BEDTIME, Disp: , Rfl: topiramate (TOPAMAX) 200 mg tablet, 1 tablet (200 mg total) 2 (two) times a day, Disp: , Rfl: traZODone (DESYREL) 50 mg tablet, Take 1 tablet (50 mg total) by mouth nightly, Disp: , Rfl: triamcinolone (KENALOG) 0.1 % ointment, , Disp: , Rfl: asenapine maleate (SAPHRIS) 5 mg tablet, sublingual, PLACE 1 TABLET UNDER THE TONGUE EACH MORNING AND 2 TABLETS EACH NIGHT, Disp: , Rfl: benzonatate (TESSALON) 200 mg capsule, Take 1 capsule (200 mg total) by mouth 3 (three) times a dayas needed for cough, Disp: 30 capsule, Rfl: 0 dexAMETHasone (DECADRON) 1 mg tablet, TAKE 1 TABLET BY MOUTH WHEN DIRECTED, Disp: , Rfl: risperiDONE (RisperDAL) 0.5 mg tablet, TAKE 1 TABLET TWICE A DAY (OR MAY TAKE AT NIGHT), Disp: , Rfl: No current facility-administered medications for this visit. [...] or 2 Frequency of Binge Drinking: Never Past Surgical History: Procedure Laterality Date ADENOIDECTOMY adenoidectomy COLONOSCOPY 2007 GASTRECTOMY ORAL SURGERY Oral Surgery SINUS SURGERY 2015 TONSILLECTOMY tonsillectomy Assessment/Plan Diagnoses and all orders for this visit: Acute thoracic back pain, unspecified back pain laterality (Primary) -discussed with patient that due to severity of pain, new onset of numbness and tingling in bilateral upper extremities, history of her congenital spinal fusion and herniated disc I recommend that she be evaluated in higher level of care, emergency room for further evaluation, pain control and treatment as needed. Patient states understanding and agrees to plan of care. Patient will go to emergency room by private car. Patient Education: Patient to go to emergency room Disposition Treatment plan including expectations, follow up, [...] office note has been partially dictated using Tablus software, and as a result portions of the record may have been created with this software. Occasional wrong-word or '[id number]' substitutions may have occurred due to the inherent limitations of voice recognition software. Read the chartcarefully and recognize, using context, where substitutions have occurred. Cosigned by Jose Morales MD at 02/24/2023 9:12 PM NATURAL RESOURCES EXTENSION EDUCATOR RAL RESOURCES EXTENSION EDUCATOR RAL RESOURCES EXTENSION EDUCATOR documented in this encounter Plan of Treatment Not on file documented as of this encounter Visit Diagnoses Diagnosis Acute thoracic back pain, unspecified back pain laterality- Primary documented in this encounter Care Teams Superintendent Sales Relationship Specialty Start Date End Date Deedee Low PA PCP - General 03/13/17 documented as of this encounter
--- OUTSIDE RECORDS SUMMARY | 2024-02-24 17:11 | XMS_ITS | Encounter Summary ---
Author Organization [facility] Address [address] [place] [address] Phone Care Team Providers Care User Experience Architect Name Role Phone Jennifermary Deedee DOWELL Primary Care Pr ovider Encounter Details Date Type Department Care Team (Late Contact Info) Description 06/27/2023 Documentation [facility] [address] [facility] 12th [place] [address] [place] [address] Rosa Ortiz Social History Tobacco Use Types Packs/Day Years Used Date Smoking Tobacco: Former Cigarettes Smokeless Tobacco: Never Comments:Randomly in late [employer] school Alcohol Use Standard Drinks/Week [...] points, staff should administer the PHQ-9) 0 05/09/2023 Personal Safety Answer Date Recorded Have you ever been in or are you currently in a harmful physical or emotional relationship or is someone making you feel afraid or unsafe? 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
--- OUTSIDE RECORDS SUMMARY | 2024-02-24 17:11 | XMS_ITS | Encounter Summary ---
Author Organization [facility] Healthcare Address [address] [place] [address] Care Team Providers Care Elastic Assembler Name Role Phone Deedee Low Primary Care Pr ovider Reason for Visit * Reason Comments Diabetes Type 2 Encounter Details Date Type Department Care Team (Late Contact Info) Description 05/09/2023 9:15 AM TWISTING PRESS OPERATOR Office Visit [facility] [id number] [place] [phone] Deedee Hussein PA [address] [place] [id number] Type 2 diabetes mellitus with hyperglycemia, with long-term current use of insulin (CMS/HCC) (HCC) (Primary Dx); Insulin pump in place; Hyperlipidemia associated with type 2 diabetes mellitus (HCC); Hypertension associated with diabetes (HCC); Morbid (severe) obesity due to excess calories (HCC) Social History Tobacco Use Types Packs/Day [...] on file Legal Sex Female 10:18 AM TWISTING PRESS OPERATOR Gender Identity Female 09/21/2019 9:02 PM CDT Sexual Orientation Not on file 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 Not on file Not on file documented as of this encounter Last Filed Vital Signs Vital Sign Reading Time Taken Comments Blood Pressure 150/98 05/09/2023 9:29 AM TWISTING PRESS OPERATOR Pulse 90 05/09/2023 9:29 AM TWISTING PRESS OPERATOR Temperature - - Respiratory Rate 18 05/09/2023 9:29 AM TWISTING PRESS OPERATOR Oxygen Saturation - - Inhaled Oxygen Concentration - - Weight 97 kg (213 lb 12.8 oz) 05/09/2023 9:29 AM TWISTING PRESS OPERATOR Height 162.6 cm (5' 4.02 ) 05/09/2023 9:29 AM CS T Body Mass Index 36.68 05/09/2023 9:29 AM TWISTING PRESS OPERATOR documented in this encounter Patient Instructions * Patient Instructions* Deedee Hussein PA - 05/09/2023 9:15 AM TWISTING PRESS OPERATOR In case of pump failure Tresiba 24 units once a day TING PRESS OPERATOR documented in this encounter Ordered Prescriptions Prescription Sig Dispense Quantity Refills Last Filled Start Date End Date hydroCHLOROthiazid e (MICROZIDE) 12.5 mg capsule Take 1 capsule (12.5 mg total) by mouth daily 90 capsule 1 05/09/2023 fenofibrate (TRIGLIDE) 160 mg tablet Take 1 tablet (160 mg total) by mouth daily 05/09/2023 documented in this encounter Progress Notes * Deedee Hussein PA - 05/09/2023 9:15 AM CST Images from the original note were not included. [facility] Diabetes Follow Up Visit Subjective/Objective Patient ID: Alannah Ruano is a 43 y.o. female who comes in today to our Endocrinology clinic tofollow up for DM management. Chief Complaint Diabetes Type 2 HPI Having a lot of issues with migraines lately, on multiple meds and Botox. BP has been higher due topain. Diabetes complications and/or comorbidity include: s/p gastric sleeve 08/29 (285 lbs prior to surgery, lowest 205 lbs), gastroparesis, macular edema. Current medications: Jardiance 25 mg Ozempic 1 mg weekly Novolog via Omnipod 5 insulin pump - switched since last visit. Basal 12a 0.8, 12p 1.1 IC 8 SF 25 T 110, correct above 150 AIT 5 hrs She switches out of automated mode to give her boluses bc she has to extend them. Then often forgets to switch back into it. Also on phentermine, takes intermittently on her hungry days . Dietary habits: tries to limit carbs most days Exercise routine: Home CBG monitoring results: checks blood sugars 4x/day via Dexcom G6. Overnight pattern: in range Postprandial pattern: minimal pC excursions No hypoglycemia. Neuropathy: Last foot exam: 12/31 Statin therapy: Yes. Atorvastatin 40 mg. Last lipid panel: 09/30. Nephropathy: On MITESH-I / ARB???s: Yes. Losartan 50 mg. Last MA: 09/30. Last creat/GFR: 04/03. Retinopathy: Date of last eye examination: 07/31 HTN - on losartan, propranolol. Wt Readings from Last 3 Encounters: 05/09/23 97 kg (213 lb 12.8 oz) 05/02/23 95.7 kg (211 lb) 04/19/23 93 kg (205 lb) Labs: Last A1c: Recent Labs Lab Units 05/09/23 0933 HEMOGLOBIN A1C POC % 5.6 No lab exists for component: [id number] Component Latest Ref Rng 11/23/2021 03/29/2022 08/30/2022 01/02/2023 Hgb A1C, POC % 5.5 5.3 5.4 5.4 Lab Results Component Value Date MICROALBUR 18.3 12/07/2019 Lab Results Component Value Date ALBCREATRATU 14 09/24/2022 Lab Results Component Value Date MALBCRTRAT 173 (H) 12/07/2019 Lipid profile within the last year: Lab Results Component Value Date CHOL 169 09/24/2022 Lab Results Component Value Date TRIG 139 09/24/2022 Lab Results Component Value Date HDL 41 09/24/2022 Lab Results Component Value Date LDLCALC 100 09/24/2022 Review of Systems Constitutional: Negative. Eyes: Negative. Respiratory: Negative. Cardiovascular: Negative. Gastrointestinal: Negative. Endocrine: Negative. Genitourinary: Negative. Skin: Negative. Neurological: Negative. Psychiatric/Behavioral: Negative. Vitals: 05/09/23 0929 BP: 150/98 BP Location: Left arm Patient Position: Sitting Pulse: 90 Resp: 18 Weight: 97 kg (213 lb 12.8 oz) Height: 162.6 cm (5' 4.02 ) Physical Exam Constitutional: Appearance: Normal appearance. HENT: Head: Normocephalic and atraumatic. Neck: Thyroid: No thyromegaly. Cardiovascular: Rate and Rhythm: Normal rate and regular rhythm. Heart sounds: Normal heart sounds. Pulmonary: Effort: Pulmonary effort is normal. Breath sounds: Normal breath sounds. Skin: General: Skin is warm and dry. Neurological: General: No focal deficit present. Mental Status: She is alert. Psychiatric: Attention and Perception: Attention normal. Mood and Affect: Mood normal. Behavior: Behavior normal. Assessment/Plan Diagnoses and all orders for this visit: Type 2 diabetes mellitus with hyperglycemia, with long-term current use of insulin ([facility] ([facility]) (Primary) Assessment & Plan: Chronic problem, generally stable. Recommend she stay in automated mode as much as possible. She should not need to extend boluses as much anymore since on an integrated system. She can try entering the carbs she thinks she will be able to eat (sometimes not able to get full meal or gets nauseated), then enter rest in after eating if higher amount. Orders: - POCT glucose - POCT hemoglobin A1c Insulin pump in place Hyperlipidemia associated with type 2 diabetes mellitus ([facility]) Assessment & Plan: Chronic problem. On statin therapy, no changes. Hypertension associated with diabetes ([facility]) Assessment & Plan: Chronic problem, not at goal. Add HCTZ 12.5 mg daily. Continue monitoring BP at home. Morbid (severe) obesity due to excess calories (HCC) Assessment & Plan: Chronic stable problem. Other orders - fenofibrate (TRIGLIDE) 160 mg tablet; Take 1 tablet (160 mg total) by mouth daily - hydroCHLOROthiazide (MICROZIDE) 12.5 mg capsule; Take 1 capsule (12.5 mg total) by mouth daily DELMER Dong TING PRESS OPERATOR documented in this encounter Miscellaneous Notes * Assessment & Plan Note - Deedee Hussein PA - 05/09/2023 10:21 AM TWISTING PRESS OPERATOR Associated Problem(s): Morbid (severe) obesity due to excess calories (HCC) Chronic stable problem. TING PRESS OPERATOR * Assessment & Plan Note - Deedee Hussein PA - 05/09/2023 10:20 AM TWISTING PRESS OPERATOR Associated Problem(s): Hypertension associated with diabetes (HCC) Chronic problem, not at goal. Add HCTZ 12.5 mg daily. Continue monitoring BP at home. TING PRESS OPERATOR * Assessment & Plan Note - Deedee Hussein PA - 05/09/2023 9:38 AM TWISTING PRESS OPERATOR Associated Problem(s): Type 2 diabetes mellitus with hyperglycemia, with long- term current use of insulin (HCC) Chronic problem, generally stable. Recommend she stay in automated mode as much as possible. She should not need to extend boluses as much anymore since on an integrated system. She can try entering the carbs she thinks she will be able to eat (sometimes not able to get full meal or gets nauseated), then enter rest in after eating if higher amount. TING PRESS OPERATOR TING PRESS OPERATOR * Assessment & Plan Note - Deedee Hussein PA - 05/09/2023 9:38 AM TWISTING PRESS OPERATOR Associated Problem(s): Hyperlipidemia associated with type 2 diabetes mellitus (HCC) Chronic problem. On statin therapy, no changes. TING PRESS OPERATOR documented in this encounter Plan of Treatment Not on file documented as of this encounter Procedures Procedure Name Priority Date/Time Associated Diagnosis Comments POCT HEMOGLOBIN A1C Routine 05/09/2023 9 :33 AM TWISTING PRESS OPERATOR Type 2 diabetes mellitus with hyperglycemia, with long-term current use of insulin ([facility] ([facility]) POCT GLUCOSE Routine 05/09/2023 9:27 AM TWISTING PRESS OPERATOR Type 2 diabetes mellitus with hyperglycemia, with long-term current use of insulin ([facility] ([facility]) documented in this encounter Results * POCT hemoglobin A1c (05/09/2023 9:33 AM TWISTING PRESS OPERATOR) Hemoglobin A1C, POC 5.6 % Blood 05/09/2023 9:33 AM TWISTING PRESS OPERATOR Result [facility] Deedee DOWELL POINT OF CARE TEST ORDE RABLES Final Result * POCT glucose (05/09/2023 9:27 AM TWISTING PRESS OPERATOR) Glucose Blood, POC 127 mg/dL Blood 05/09/2023 9:27 AM TWISTING PRESS OPERATOR Deedee DOWELL POINT OF CARE TEST ORDE RABLES Final Result documented in this encounter Visit Diagnoses Diagnosis Type 2 diabetes mellitus with hyperglycemia, with long-term current use of insulin ([facility])- Primary Insulin pump in place Insulin pump status Hyperlipidemia associated with type 2 diabetes mellitus (HCC) Hypertension associated with diabetes ([facility]) Unspecified essential hypertension Morbid (severe) obesity due to excess calories ([facility]) documented in this encounter Discontinued Medications Medication Sig Discontinue Reason Start Date End Da te fenofibrate (TRIGLIDE) 160 mg tablet Take 1 tablet (160 mg total) by mouth daily Alternate therapy 05/09/2023 documented as of this encounter Care Teams Elastic Assembler Relationship Specialty Start Date End Date Deedee Low PA PCP - General 03/13/17 documented as of this encounter
--- OUTSIDE RECORDS SUMMARY | 2024-02-24 17:11 | XMS_ITS | Encounter Summary ---
Author Organization [facility] Healthcare Address [address] [place] [address] Care Team Providers Care Cafeteria Team Leader Name Role Phone Deedee Low Primary Care Pr ovider Reason for Visit * Reason Comments Follow-up Increased BP Encounter Details Date Type Department Care Team ([facility] Contact Info) Description 03/21/2023 11:00 AM FIELD MECHANICAL METER TESTER Office Visit [facility] Medical Group Cardiology [address] [place] [address] Karolina Iqbal NP [address] [facility] [address] [place] [address] Hypertension associated with diabetes (HCC) (Primary Dx); Nonsustained ventricular tachycardia (HCC) Social History Tobacco Use Types Packs/Day Years Used Date Smoking Tobacco: Former Cigarettes Smokeless Tobacco: Never Comments:Randomly in late [facility] Alcohol Use Standard Drinks/Week Comments Yes [...] on file Legal Sex Female 10:18 AM FIELD MECHANICAL METER TESTER Gender Identity Female 09/21/2019 9:02 PM CDT Sexual Orientation Not on file 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 on file Not on file Not on file documented as of this encounter Last Filed Vital Signs Vital Sign Reading Time Taken Comments Blood Pressure 128/78 03/21/2023 11:16 AM FIELD MECHANICAL METER TESTER Pulse 77 03/21/2023 11:16 AM FIELD MECHANICAL METER TESTER Temperature - - Respiratory Rate - - Oxygen Saturation 97% 03/21/2023 11:16 AM FIELD MECHANICAL METER TESTER Inhaled Oxygen Concentration - - Weight 93 kg (205 lb) 03/21/2023 11:16 AM FIELD MECHANICAL METER TESTER Height 162.6 cm (5' 4 ) 03/21/2023 11:16 AM FIELD MECHANICAL METER TESTER Body Mass Index 35.19 03/21/2023 11:16 AM FIELD MECHANICAL METER TESTER documented in this encounter Progress Notes * Karolina Iqbal, SOPHIA - 03/21/2023 11:00 AM CST Images from the original note were not included. [facility] Medical [facility] Cardiology [address] [place] [address] Date of Visit: 03/21/2023 Patient ID: Alannah Ruano 1980 Chief Complaint Patient presents with Follow-up Increased BP Alannah Ruano is a 42 y.o. female who saw Dr. Fernandez in consultation last year for NSVT seenon an event monitor. She returns to the office today under the advice of her neurologist for hypertension. History of Present Illness: Alannah uRano is a 42 y.o. female who presents for consultation regarding nonsustained ventricular tachycardia. This is a patient with the underlying diagnoses of diabetes hypertension and obesity who had a 14 day event monitor done in May of 2022 at the request of her primary care provider. The exam demonstrated sinus rhythm throughout and there was one 4 beat episode of nonsustained ventricular tachycardia noted which occurred on 1 day at 11:48 a.m.. The patient did have some episodes of the sense of palpitations which were associated with sinus rhythm/sinus tachycardia. The episode of VT was not symptomatic. Because of this finding she was referred today as a new patient. The patient states that she is not known to have cardiac problems prior to this. This evaluation occurred following an episode earlier this year when she experienced a severe migraine headache and was seen in the emergency room. In that setting her blood pressure was very high in excess of 200 mmHg and she re ports that there was some concern after that on her Apple watch that she had an elevated heart rateand so her primary care provider had her wear a 14 day event monitor. The event monitor demonstrated sinus rhythm with normal heart rate variability and on 1 of the days as mentioned above there was an episode of nonsustained VT. She was not symptomatic with this. She has never had an episode of syncope. She is able to carry on normal daily activities without any problems. She did state that she had a previous cardiac echocardiogram done demonstrating a mild regurgitant lesion in 1 of her cardiac valves. This was done as a preop evaluation prior to bariatric surgery in the past. She does have diabetes for about 5-6 years she also has hypertension which is generally well controlled with losartan. She states that when she does see her primary care and she is not experiencing pain her blood pressure is generally nicely controlled. 02/27/[address] Fernandez: She returns to the office today for consultation follow-up after her stress echocardiogram. The stress echo was done in the office in December of 2022 and was completely unremarkable there was no ECG or echocardiographic evidence of ischemia. She was happyto hear this. At this time I did not recommend any additional cardiac workup or follow-up she can follow-up with her PCP in this time I believe 03/21/2023 office visit with ROADABILITY MACHINE OPERATOR: 10 days ago she developed numbness in her face and went to the ER.Blood pressure was 174/141 and improved to 120 9/86 by the end of the evaluation. She then have follow-up in the office with her neurologist. At that visit her blood pressure was 154/115 and the neurologist advised to return to us for follow-up to address the high blood pressure. Patient states herprimary care provider increased her losartan from 50 mg to 100 mg daily and her blood pressure has improved. Records that I personally reviewed on the day of this visit include: (the interpretation is outlined in the HPI above) 02/27/[address] Fernandez, 03/11/2023 ER note and 03/12/[address] Hernandez. I have also reviewed: allergies, current medications, past family history, past medical history, past social history, past surgical history and problem list. Medical History: Past Medical History: Diagnosis Date Anxiety and [...] adenoidectomy BARIATRIC SURGERY 09/07/20 COLONOSCOPY 2007 GASTRECTOMY ORAL SURGERY Oral Surgery SINUS SURGERY 2015 TONSILLECTOMY tonsillectomy Social History Tobacco Use Smoking Status Former Packs/day: 0 Types: Cigarettes Smokeless Tobacco Never Tobacco Comments Randomly in late high school Social History Tobacco Use Smoking status: Former Packs/day: 0 Types: Cigarettes Smokeless tobacco: Never Tobacco comments: Randomly in late high school Substance and Sexual Activity Drug use: Never Comment: Rare alcohol use Sexual activity: Not Currently Partners: Male control/protection: Abstinence, Condom Male, I.U.D. Alcohol Use: Not At Risk (11/01/2022) AUDIT-C [...] degeneration Maternal Grandmother Hearing loss Maternal Grandmother Review of Systems Constitutional: Negative for malaise/fatigue, weight gain and weight loss. Cardiovascular: Negative for chest pain, near-syncope, orthopnea, palpitations, paroxysmal nocturnal dyspnea and syncope. Respiratory: Negative for shortness of breath. Neurological: Positive for headaches and paresthesias. Vital Signs: BP 128/78 (BP Location: Left arm, Patient Position: Sitting) Pulse 77 Ht 162.6 cm (5' 4 ) Wt 93 kg (205 lb) SpO2 97% BMI 35.19 kg/m?? Physical Exam Constitutional: General: She is not in acute distress. Appearance: She is well-developed. She is obese. HENT: Head: Normocephalic and atraumatic. Eyes: General: No scleral icterus. Conjunctiva/sclera: Conjunctivae normal. Neck: Vascular: No JVD. Trachea: No tracheal deviation. Cardiovascular: Rate and Rhythm: Normal rate and regular rhythm. Heart sounds: Normal heart sounds. No murmur heard. Pulmonary: Effort: Pulmonary effort is normal. No respiratory distress. Breath sounds: Normal breath sounds. Skin: General: Skin is warm and dry. Neurological: Mental Status: She is alert and oriented to person, place, and time. Psychiatric: Mood and Affect: Mood normal. Behavior: Behavior normal. Allergies Allergen Reactions Mushroom Anaphylaxis Nut Flavor Anaphylaxis MAINLY PECANS CAN TOLERATE PEANUTS Pecan Nut Anaphylaxis Pneumovax-23 [Pneumococcal 23-Giselle Ps Vaccine] Unknown Current Outpatient Medications: albuterol 2.5 mg /3 mL (0.083 %) nebulizer solution, albuterol sulfate 2.5 mg/3 mL (0.083 %) solution for nebulization PRN, Disp: , Rfl: albuterol HFA (PROVENTIL HFA,VENTOLIN HFA,PROAIR HFA) 90 mcg/actuation inhaler, Inhale 2 puffs every 6 (six) hours as needed for wheezing, Disp: , Rfl: Amzeeq 4 % foam, , Disp: , Rfl: atorvastatin (LIPITOR) 40 mg tablet, 1 tablet (40 mg total), Disp: , Rfl: azelastine (ASTELIN) 137 mcg (0.1 %) nasal spray, azelastine 137 mcg (0.1 %) nasal spray aerosol [place] 2 sprays every day by nasal route for 31 days., Disp: , Rfl: bevacizumab (AVASTIN) 25 mg/mL injection, , Disp: , Rfl: blood-glucose sensor (Dexcom G6 Sensor) device, USE DIRECTED CHANGE EVERY 10 DAYS, Disp: 9 each,Rfl: 3 buPROPion (WELLBUTRIN) 100 mg tablet, Take [...] total) by mouth daily, Disp: , Rfl: fluticasone propion-salmeteroL (ADVAIR DISKUS) 250-50 mcg/dose diskus inhaler, Advair Diskus 250 mcg-50 mcg/dose powder for inhalation INHALE 1 PUFF BY MOUTH TWICE DAILY, Disp: , Rfl: glucagon (Baqsimi) 3 mg/actuation spray,non-aerosol, One spray into one nostril once as directed byprovider for low blood sugar., Disp: 1 each, Rfl: 0 insulin lispro (HumaLOG) 100 unit/mL vial for injection, Inject up to 100 units daily via insulin pump, Disp: 90 mL, Rfl: 1 insulin pump cart,automated,BT (Omnipod 5 G6 Pods, Gen 5,) cartridge, Change pod q 3 days, Disp: 30each, Rfl: 3 lamoTRIgine (LaMICtal) 100 mg tablet, Take 1 tablet (100 mg total) by mouth daily, Disp: , Rfl: losartan (COZAAR) 100 mg tablet, Take 1 tablet (100 mg total) by mouth daily, Disp: , Rfl: montelukast (SINGULAIR) 10 mg tablet, , Disp: , Rfl: olopatadine 0.6 % spray,non-aerosol, olopatadine 0.6 % nasal spray, Disp: , Rfl: ondansetron ODT (ZOFRAN-ODT) 4 mg disintegrating tablet, DISSOLVE 2 TABLETS IN MOUTH EVERY 8 HOURS NEEDED FOR NAUSEA OR VOMITING, Disp: 20 tablet, Rfl: 0 oxymetazoline (Rhofade) 1 % cream, Rhofade 1 % topical cream, Disp: , Rfl: phentermine (ADIPEX-P) 37.5 mg tablet, Take 1 [...] 0.1 % ointment, , Disp: , Rfl: ubrogepant (UBRELVY) 100 mg tablet, Take 1 tablet (100 mg total) by mouth 2 (two) times a day as needed, Disp: , Rfl: albuterol ER (VOSPIRE ER) 8 mg 12 hr tablet, , Disp: , Rfl: blood glucose diagnostic strip, Use to check bg 7 times daily, Disp: 500 each, Rfl: 1 blood-glucose meter misc, Check bg daily, Disp: 1 each, Rfl: 0 blood-glucose transmitter (Dexcom G6 Transmitter) device, USE DIRECTED CHANGE EVERY 3 MONTHS, Disp: 1 each, Rfl: 3 fexofenadine (OCHOA) 180 mg tablet, TAKE 1 TABLET DAILY NEEDED. (Patient not taking: Reported on 03/21/2023), Disp: , Rfl: hydrOXYzine (ATARAX) 25 mg tablet, Take 1 tablet (25 mg total) by mouth 1-2 nightly (Patient not taking: Reported on 03/21/2023), Disp: , Rfl: insulin pump cart,auto,BT-cntr (Omnipod 5 G6 Intro Kit, Gen 5,) cartridge, Change pod q 3days, Disp: 1 each, Rfl: 0 lubiprostone (AMITIZA) 8 mcg capsule, Take 1 capsule (8 mcg total) by mouth 2 (two) times a day with meals (Patient not taking: Reported on 03/21/2023), Disp: 60 capsule, Rfl: 2 OneTouch Delica Plus Lancet 33 gauge misc, , Disp: , Rfl: pen needle, diabetic (BD Ultra-Fine Florina Pen Needle) 32 gauge x 5/32 needle, USE DIRECTED up to7 times daily, Disp: 700 each, Rfl: 0 No current facility-administered medications for this visit. Facility-Administered Medications Ordered in Other Visits: perflutren lipid (DEFINITY) 1.5 mL in sodium chloride 0.9% 10 mL syringe, 1-10 mL, intravenous, Once in imaging, Cristhian Fernandez MD Lab Results Component Value Date POTASSIUM 4.2 09/24/2022 BUNSER 14 09/24/2022 CREATININE 0.61 09/24/2022 CHOL 169 09/24/2022 TRIG 139 09/24/2022 LDL 66 08/11/2020 LDLCALC 100 09/24/2022 HDL 41 09/24/2022 Lab Results Component Value Date WBC 7.9 09/24/2022 HGB 14.3 09/24/2022 HCT 42.2 09/24/2022 MCV 91.1 09/24/2022 No results found for this or any previous visit (from the past 4 hour(s)). Lab Results Component Value Date POCCHOL 150 08/29/2022 POCHDL 33 08/29/2022 POCTRIG 197 08/29/2022 POCLDL 78 08/29/2022 POCNONHDL 118 08/29/2022 POCCHLPL 150 08/29/2022 Assessment: Diagnoses and all orders for this visit: Hypertension associated with diabetes (HCC) (Primary) Nonsustained ventricular tachycardia (HCC) Plan/Recommendations: Blood pressure improved after losartan was increased to 100 mg daily under the direction of her PCP. I recommend she continue losartan 100 mg daily. She was seen by Dr. Fernandez last year for evaluation of 1 episode of asymptomatic nonsustained VTseen on an event monitor. Subsequently echocardiogram and stress echocardiogram were unremarkable and no further cardiac workup is indicated at this time. Ongoing management of her hypertension can occur with primary care provider. She has not need any further cardiac testing at this time but we would be happy to re-evaluate her in the future if other concerns arise. 03/21/2023 JAMES Devlin- Nurse Practitioner with [facility] Cardiology This note is dictated and transcribed using [employer] Direct Software. Accountant Budget variancesmay occur. Despite proofreading, typographical errors may occur. D MECHANICAL METER TESTER documented in this encounter Plan of Treatment Not on file documented as of this encounter Visit Diagnoses Diagnosis Hypertension associated with diabetes (HCC)- Primary Unspecified essential hypertension Nonsustained ventricular tachycardia (HCC) documented in this encounter Discontinued Medications Medication Sig Discontinue Reason Start Date End Da te losartan (COZAAR) 50 mg tablet losartan 50 mg tablet TAKE 1 TABLET BY MOUTH EVERY DAY Dose adjustment 03/21/2023 documented as of this encounter Historical Medications * This list may reflect changes made after this encounter. losartan (COZAAR) 100 mg tablet Take 1 tablet (100 mg total) by mouth daily 03/15/2023 albuterol HFA (PROVENTIL HFA,VENTOLIN HFA,PROAIR HFA) 90 mcg/actuation inhaler Inhale 2 puffs every 6 (six) hours as needed for wheezing 10/07/2023 ubrogepant (UBRELVY) 100 mg tablet Take 1 tablet (100 mg total) by mouth 2 (two) times a day as needed 03/12/2023 09/05/2023 added in this encounter Care Teams Cafeteria Team Leader Relationship Specialty Start Date End Date Deedee Low PA PCP - General 03/13/17 documented as of this encounter
--- OUTSIDE RECORDS SUMMARY | 2024-02-24 17:11 | XMS_ITS | Encounter Summary ---
Author Organization [facility] Healthcare Address [address] [place] [address] Care Team Providers Care Peoplesoft Hcm Consultant Name Role Phone ZeyadAmelia العليblu DOWELL Primary Care Pr ovider Reason for Visit * Reason Comments Boils Encounter Details Date Type Department Care Team (Late Contact Info) Description 05/02/2023 2:30 PM SET UP OPERATOR Office Visit [facility] [address] [place] [address] [address] [place] [phone] Sergio Ventura MD [address] [place] [address] [place] [id number] Recurrent boils (Primary Dx) Social History Tobacco Use Types [...] on file Legal Sex Female 10:18 AM SET UP OPERATOR Gender Identity Female 09/21/2019 9:02 PM CDT Sexual Orientation Not on file 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 Not on file Not on file documented as of this encounter Last Filed Vital Signs Vital Sign Reading Time Taken Comments Blood Pressure - - Pulse - - Temperature 35.9 ??C (96.6 ??F) 05/02/2023 2:43 PM CS T Respiratory Rate - - Oxygen Saturation - - Inhaled Oxygen Concentration - - Weight 95.7 kg (211 lb) 05/02/2023 2:43 PM SET UP OPERATOR Height - - Body Mass Index 36.22 04/19/2023 8:29 AM SET UP OPERATOR documented in this encounter Patient Instructions * Patient Instructions* Sergio Ventura MD - 05/02/2023 2:30 PM SET UP OPERATOR Continue low-dose of doxycycline return to clinic in 1 year UP OPERATOR documented in this encounter Ordered Prescriptions Prescription Sig Dispense Quantity Refills Last Filled Start Date End Date doxycycline 100 mg capsuleIndications :Prophylaxis, Medical,Skin/Soft Tissue Infection Take 1 tablet/capsule (100 mg total) by mouth daily 90 tablet/capsule 3 05/02/2023 5 mupirocin (BACTROBAN) 2 % ointmentIndication s:Minor Bacterial Skin Infections Apply topically 3 (three) times a day 22 g 1 05/02/2023 4 documented in this encounter Progress Notes * Sergio Ventura MD - 05/02/2023 2:30 PM CST Images from the original note were not included. Subjective/Objective Patient ID: Alannah Ruano is a 43 y.o. female. Chief Complaint Boils HPI Patient is a 43-year-old female history of diabetes mellitus type 2 dyslipidemia hypertension, frequent skin boils, on suppressive therapy with low-dose of doxycycline with good control. Over the past 2 weeks patient had developed a small boil on the right buttock which seems improving now. Good compliance with medications with no side effects. Current Outpatient Medications: albuterol 2.5 mg /3 [...] 137 mcg (0.1 %) nasal spray aerosol [place] 2 sprays every day by nasal route [...] (six) hours as needed, Disp: , Rfl: empagliflozin (JARDIANCE) 25 mg tablet, Take 1 [...] 8 HOURS NEEDED FOR NAUSEA AND FOR VOMITING, Disp: 20 tablet, Rfl: 0 [...] 12 hr tablet, , Disp: , Rfl: blood-glucose transmitter (Dexcom G6 Transmitter) device, USE DIRECTED CHANGE EVERY 3 MONTHS, Disp: 1 each, Rfl: 3 doxycycline 100 mg capsule, Take 1 tablet/capsule (100 mg total) by mouth daily, Disp: 90 tablet/capsule, Rfl: 3 fexofenadine (OCHOA) 180 mg tablet, TAKE 1 TABLET DAILY NEEDED. (Patient not taking: Reported on 03/21/2023), Disp: , Rfl: hydrOXYzine (ATARAX) 25 mg tablet, Take 1 tablet (25 mg total) by mouth 1-2 nightly (Patient not taking: Reported on 03/21/2023), Disp: , Rfl: lubiprostone (AMITIZA) 8 mcg capsule, Take 1 capsule (8 mcg total) by mouth 2 (two) times a day with meals (Patient not taking: Reported on 05/02/2023), Disp: 60 capsule, Rfl: 2 mupirocin (BACTROBAN) 2 % ointment, Apply topically 3 (three) times a day, Disp: 22 g, Rfl: 1 No current facility-administered medications for this visit. Facility-Administered Medications Ordered in Other Visits: perflutren lipid (DEFINITY) 1.5 mL in sodium chloride 0.9% 10 mL syringe, 1-10 mL, intravenous, Once in imaging, Cristhian Fernandez MD Review of Systems Constitutional: Negative for fatigue and fever. HENT: Negative for sore throat. Eyes: Negative for redness. Respiratory: Negative for cough and shortness of breath. Cardiovascular: Negative for chest pain and leg swelling. Gastrointestinal: Negative for abdominal pain and diarrhea. Genitourinary: Negative for dysuria and hematuria. Musculoskeletal: Negative for myalgias. Skin: Negative for rash and wound. Psychiatric/Behavioral: Negative for confusion. Physical Exam Constitutional: General: She is not in acute distress. Appearance: She is well-developed. She is not diaphoretic. HENT: Head: Normocephalic and atraumatic. Nose: Nose normal. Eyes: Conjunctiva/sclera: Conjunctivae normal. Pupils: Pupils are equal, round, and reactive to light. Cardiovascular: Rate and Rhythm: Normal rate and regular rhythm. Pulmonary: Effort: Pulmonary effort is normal. Breath sounds: Normal breath sounds. Abdominal: General: Bowel sounds are normal. There is no distension. Palpations: Abdomen is soft. Musculoskeletal: General: No deformity. Cervical back: Normal range of motion. Skin: General: Skin is warm and dry. Comments: Very small pimple right buttock Neurological: Mental Status: She is alert and oriented to person, place, and time. Psychiatric: Behavior: Behavior normal. Thought Content: Thought content normal. Judgment: Judgment normal. Assessment/Plan Diagnoses and all orders for this visit: Recurrent boils (L02.92) (Primary) Other orders - doxycycline 100 mg capsule; Take 1 tablet/capsule (100 mg total) by mouth daily - mupirocin (BACTROBAN) 2 % ointment; Apply topically 3 (three) times a day Patient is a 43-year-old female history of diabetes mellitus type 2 hypertension dyslipidemia morbidly obese frequent boils, suppressive therapy with low-dose of doxycycline. Clinically doing well tolerating medication with good results. I do not believe we are ready to discontinue antibiotic sincepersistent skin outbreaks occasionally. We will continue doxycycline for another year. Re- evaluate in a year Sergio Ventura MD UP OPERATOR documented in this encounter Plan of Treatment Not on file documented as of this encounter Visit Diagnoses Diagnosis Recurrent boils- Primary Carbuncle and furuncle of unspecified site documented in this encounter Discontinued Medications Medication Sig Discontinue Reason Start Date End Da te doxycycline 100 mg capsuleIndications:Prophy laxis, Medical Take 1 tablet/capsule (100 mg total) by mouth daily Reorder 05/31/2022 05/02/2023 documented as of this encounter Care Teams Peoplesoft Hcm Consultant Relationship Specialty Start Date End Date Deedee Low PA PCP - General 03/13/17 documented as of this encounter
--- OUTSIDE RECORDS SUMMARY | 2024-02-24 17:11 | XMS_ITS | Encounter Summary ---
Author Organization [facility] Healthcare Address [address] [place] [address] Care Team Providers Care Epic Ambulatory Analysts Name Role Phone Deedee Low Primary Care Pr ovider Reason for Visit * Reason Comments Blister Bilateral feet, feet blisters Encounter Details Date Type Department Care Team ([facility] Contact Info) Description 06/20/2023 9:00 AM CDT Office Visit [facility] at [address] [id number] Essie Castillo, ELECTRICAL MANAGER [address] [place] [id number] Wound infection (Primary Dx); Blister of foot, unspecified laterality, initial encounter Social History Tobacco Use Types Packs/Day Years Used Date Smoking Tobacco: Former Cigarettes Smokeless Tobacco: Never Comments:Randomly in late [facility] Alcohol Use Standard Drinks/Week [...] on file Legal Sex Female 10:18 AM CAMERA MAKER Gender Identity Female 09/21/2019 9:02 PM CDT Sexual Orientation Not on file 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 Not on file Not on file documented as of this encounter Last Filed Vital Signs Vital Sign Reading Time Taken Comments Blood Pressure 138/80 06/20/2023 9:10 AM CDT Pulse 92 06/20/2023 9:10 AM CDT Temperature 36.6 ??C (97.9 ??F) 06/20/2023 9:10 AM CD T Respiratory Rate 20 06/20/2023 9:10 AM CDT Oxygen Saturation 96% 06/20/2023 9:10 AM CDT Inhaled Oxygen Concentration - - Weight 96.6 kg (213 lb) 06/20/2023 9:10 AM CDT Height - - Body Mass Index 36.54 05/09/2023 9:29 AM CAMERA MAKER documented in this encounter Patient Instructions * Patient Instructions* Essie Castillo ELECTRICAL MANAGER - 06/20/2023 9:00 AM CDT If you have no improvement or worsening of your symptoms, please follow up with your Primary Care Provider, [facility] Care and or Emergency Room. I strive to provide you with EXCELLENT service. You may receive a survey after your visit today. If you cannot rate your experience as EXCELLENT, please let us know how we can improve and better meet your needs. Thank you for choosing [facility]! It was my pleasure to see you today, I hope you feel better soon! Essie Castillo [facility] W[facility] You may wash gently today with soap and water twice daily. Apply antibiotic ointment and a bandage twice a day. After this, keep it clean and dry. Check the wound every day for signs of infection (increased redness, drainage, or fever). See your doctor for a wound recheck if there is any question of infection or if not better. Call your doctor or return to the emergency department if worse or: 1. The wound opens or bleeds 2. Wound redness, swelling, or pus drainage occurs. 3. Fever occurs. 4. Pain worsens. * Attachments The following attachments cannot be sent through Care Everywhere. * Wound Infection (AfterCare(R) Instructions(ER/ED)) (Togolese) documented in this encounter Ordered Prescriptions Prescription Sig Dispense Quantity Refills Last Filled Start Date End Date mupirocin (BACTROBAN) 2 % ointmentIndication s:Minor Bacterial Skin Infections Apply topically 3 (three) times a day 22 g 1 06/20/2023 4 cephalexin (KEFLEX) 500 mg capsuleIndications :Wound infection,Blister of foot, unspecified laterality, initial encounter Take 1 capsule (500 mg total) by mouth 4 (four) times a day for 7 days 28 capsule 06/20/2023 4 documented in this encounter Progress Notes * Essie Castillo NP - 06/20/2023 9:00 AM CDT Images from the original note were not included. Subjective/Objective Patient ID: Alannah Ruano is a 43 y.o. female. Chief Complaint Blister (Bilateral feet, feet blisters ) 43-year-old female patient presents today with complaints of bilateral foot blisters. Patient reports that she returned this morning from [place]. Patient is a diabetic. Reports 2 of the blisters haveruptured causing scabs with surrounding erythema. Denies any fever. Review of Systems All other systems reviewed and are negative. Physical Exam Vitals reviewed. Constitutional: Appearance: Normal appearance. She is normal weight. HENT: Head: Normocephalic. Right Ear: External ear normal. Left Ear: External ear normal. Nose: Nose normal. Mouth/Throat: Mouth: Mucous membranes are moist. Eyes: Extraocular Movements: Extraocular movements intact. Cardiovascular: Rate and Rhythm: Normal rate. Pulses: Normal pulses. Pulmonary: Effort: Pulmonary effort is normal. Musculoskeletal: General: Normal range of motion. Cervical back: Normal range of motion. Skin: Capillary Refill: Capillary refill takes less than 2 seconds. Findings: Erythema present. Comments: 2 blisters and open wound left foot, 2 blisters and open wound right foot, see pictures attached. Neurological: General: No focal deficit present. Mental Status: She is alert and oriented to person, place, and time. Mental status is at baseline. Psychiatric: Mood and Affect: Mood normal. Behavior: Behavior normal. Thought Content: Thought content normal. Judgment: Judgment normal. Media From this encounter Patient Image - Scan on 06/20/2023 9:32 AM Patient Image - Scan on 06/20/2023 9:32 AM Vitals: 06/20/23 0910 BP: 138/80 Pulse: 92 Resp: 20 Temp: 36.6 ??C (97.9 ??F) TempSrc: Oral SpO2: 96% Weight: 96.6 kg (213 lb) No results found. Past Medical History: Diagnosis [...] 12 hr tablet, , Disp: , Rfl: albuterol HFA (PROVENTIL HFA,VENTOLIN HFA,PROAIR HFA) 90 mcg/actuation inhaler, Inhale 2 puffs every 6 (six) hours as needed for wheezing, Disp: , Rfl: Amzeeq 4 % foam, , Disp: , Rfl: atorvastatin (LIPITOR) 40 mg tablet, 1 tablet (40 mg total), Disp: , Rfl: azelastine (ASTELIN) 137 mcg (0.1 %) nasal spray, azelastine 137 mcg (0.1 %) nasal spray aerosol [place] 2 sprays every day by nasal route for 31 days., Disp: , Rfl: bevacizumab (AVASTIN) 25 mg/mL injection, , Disp: , Rfl: blood glucose diagnostic strip, Use to check bg 7 times daily, Disp: 500 each, Rfl: 1 blood-glucose meter [facility], Check bg daily, Disp: 1 each, Rfl: [...] , Rfl: fexofenadine (OCHOA) 180 mg tablet, , Disp: , Rfl: fluticasone propion-salmeteroL (ADVAIR DISKUS) 250-50 mcg/dose diskus inhaler, Advair Diskus 250 mcg-50 mcg/dose powder for inhalation INHALE 1 PUFF BY MOUTH TWICE DAILY, Disp: , Rfl: glucagon (Baqsimi) 3 mg/actuation spray,non-aerosol, One spray into one nostril once as directed byprovider for low blood sugar., Disp: 1 each, Rfl: 0 hydroCHLOROthiazide (MICROZIDE) 12.5 mg capsule, Take 1 [...] total) by mouth daily, Disp: , Rfl: lubiprostone (AMITIZA) 8 mcg [...] BY MOUTH ONCE DAILY BEFORE BREAKFAST, Disp: 90tablet, Rfl: 2 propranoloL (INDERAL) 20 mg tablet, [...] a day as needed, Disp: , Rfl: cephalexin (KEFLEX) 500 mg capsule, Take 1 capsule (500 mg total) by mouth 4 (four) times a day for7 days, Disp: 28 capsule, Rfl: 0 mupirocin (BACTROBAN) 2 % ointment, Apply topically 3 (three) times a day, Disp: 22 g, Rfl: 1 No current facility-administered medications for this visit. Facility-Administered Medications Ordered in Other Visits: perflutren lipid (DEFINITY) 1.5 mL in sodium chloride 0.9% 10 mL syringe, 1-10 mL, intravenous, Once in imaging, Cristhain Fernandez MD Allergies Allergen Reactions Mushroom Anaphylaxis [...] Oral Surgery SINUS SURGERY 2015 TONSILLECTOMY tonsillectomy Procedures Assessment/Plan No results found for this or any previous visit (from the past 4 hour(s)). Diagnoses and all orders for this visit: Wound infection (Primary) - cephalexin (KEFLEX) 500 mg capsule; Take 1 capsule (500 mg total) by mouth 4 (four) times a day for 7 days - mupirocin (BACTROBAN) 2 % ointment; Apply topically 3 (three) times a day Blister of foot, unspecified laterality, initial encounter Comments: left & right Orders: - cephalexin (KEFLEX) 500 mg capsule; Take 1 capsule (500 mg total) by mouth 4 (four) times a day for 7 days - mupirocin (BACTROBAN) 2 % ointment; Apply topically 3 (three) times a day Plan: Patient's wounds were cleansed and dressing was applied. Discussed with patient wound care athome. Patient does have some surrounding erythema. We will cover with Keflex and Bactroban. Patientverbalizes understanding. Disposition Treatment plan including expectations, follow up, and return precautions discussed with patient/parent, verbalizes understanding. Medication dosage, use, and potential adverse reactions discussed with patient/parent. Advised to follow up with PCP if symptoms do not resolve as expected or sooner if condition worsens. Signs/symptoms warranting ER evaluation reviewed. Patient and/or guardian was given an opportunity to ask questions, questions answered. Essie Castillo NP documented in this encounter Plan of Treatment Not on file documented as of this encounter Visit Diagnoses Diagnosis Wound infection- Primary Posttraumatic wound infection not elsewhere classified Blister of foot, unspecified laterality, initial encounter documented in this encounter Discontinued Medications Medication Sig Discontinue Reason Start Date End Da te mupirocin (BACTROBAN) 2 % ointmentIndications:Min or Bacterial Skin Infections Apply topically 3 (three) times a day Reorder 05/02/2023 06/20/2023 documented as of this encounter Care Teams Epic Ambulatory Analysts Relationship Specialty Start Date End Date Deedee Low PA PCP - General 03/13/17 documented as of this encounter
--- OUTSIDE RECORDS SUMMARY | 2024-02-24 17:11 | XMS_ITS | Encounter Summary ---
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 Gender Identity Female 09/21/2019 9:02 PM CDT Sexual Orientation Not on file 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
--- OUTSIDE RECORDS SUMMARY | 2024-02-24 17:11 | XMS_ITS | Encounter Summary ---
Author Organization [facility] Healthcare Address [address] [place] [address] Care Team Providers Care Licensed Veterinary Technician Name Role Phone Deedee Low Primary Care Pr ovider Reason for Visit * Reason Onset Date Comments Prior Auth 03/08/2023 Omnipod 5 pods Encounter Details Date Type Department Care Team (Late st Contact Info) Description 03/08/2023 [facility]phone [facility] [id number] [place] [phone] [place] [id number] [place] [id number] Prior Auth (Omnipod 5 pods) Social History Tobacco Use Types Packs/Day Years [...] on file Legal Sex Female 10:18 AM STENCIL TYPIST Gender Identity Female 09/21/2019 9:02 PM CDT Sexual Orientation Not on file 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 Not on file Not on file documented as of this encounter Miscellaneous Notes * Telephone Encounter - Tania Lux MA - 03/08/2023 1:16 PM CST Prior auth approved CIL TYPIST * Telephone Encounter - Tania Lux MA - 03/08/2023 12:43 PM CST Prior auth for Omnipod 5 pods [facility] Kaur: [id number] CIL TYPIST documented in this encounter Plan of Treatment Not on file documented as of this encounter Visit Diagnoses Not on filedocumented in this encounter Care Teams Licensed Veterinary Technician Relationship Specialty Start Date End Date Deedee Low PA PCP - General 03/13/17 documented as of this encounter
--- OUTSIDE RECORDS SUMMARY | 2024-02-24 17:11 | XMS_ITS | Encounter Summary ---
Author Organization [facility] Address [address] [place] [address] Care Team Providers Care Political Aide Name Role Phone Zeyadseveriano Deedee DOWELL Primary [...] Expiration Date Visits Re quested Visits Authorized [id number] 1 1 Encounter Details Date Type Department Care Team (Late st Contact Info) Description 11/01/2022 9:30 AM CDT - 11/01/2022 12:50 PM CDT Hospital Encounter [facility] Endoscopy [phone] [place] [address] Yancy Desai MD [address] [place] [address] Other irritable bowel syndrome; Nausea and vomiting, unspecified vomiting type; Gastroesophageal reflux disease without esophagitis; Diarrhea, unspecified type; Hematochezia Discharge Disposition: Discharge to home or self [...] on file 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 Sex Female 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 Gender Identity Female 09/21/2019 9:02 PM CDT Sexual Orientation Not on file 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 Not on file Not on file documented as of this encounter Last Filed Vital Signs Vital Sign Reading Time Taken Comments Blood Pressure 148/95 11/01/2022 12:35 PM CDT Pulse 73 11/01/2022 12:35 PM CDT Temperature 36.3 ??C (97.3 ??F) 11/01/2022 12:10 PM C DT Respiratory Rate 10 11/01/2022 12:35 PM CDT Oxygen Saturation 100% 11/01/2022 12:35 PM CDT Inhaled Oxygen Concentration - - Weight 97.5 kg (215 lb) 11/01/2022 10:02 AM CDT Height 162.6 cm (5' 4 ) 11/01/2022 10:02 AM CDT Body Mass Index 36.9 11/01/2022 10:02 AM CDT documented in this encounter Discharge Instructions * Attachments The following attachments cannot be sent through Care Everywhere. * Upper Endoscopy (Discharge Care) (Guamanian) * Colonoscopy (Discharge Care) (Guamanian) documented in this encounter Medications at Time [...] 137 mcg (0.1 %) nasal spray aerosol [place] 2 sprays every day by nasal route [...] mouth 2 (two) times a day 12/20/19 phentermine (ADIPEX-P) 37.5 mg tablet TAKE 1 TABLET BY MOUTH ONCE DAILY BEFORE BREAKFAST 30 tablet 3 12/25/19 polyethylene glycol (GoLYTELY) 236-22.74-6.74 -5.86 gram solution Follow the instructions from Dr. Desai's office not the instructions on the bottle. 4000 mL 3 01/03/20 tirzepatide (Mounjaro) 5 mg/0.5 mL pen injector Inject 5 mg under the skin every 7 days 2 mL 2 3 12/21/19 ziprasidone (GEODON) 20 mg capsule Take 1 capsule (20 mg total) by mouth 2 (two) times a day with meals 1 01/03/20 documented as of this encounter Discharge Disposition [...] (0.083 %) solution for nebulization PRN Yes ProviderLynn MD albuterol ER (VOSPIRE ER) 8 mg 12 hr tablet PATIENT TAKES 8.5 GM DAILY PRN 02/16/16 Yes ProviderLynn MD atorvastatin (LIPITOR) 40 mg tablet 1 tablet (40 mg total) Yes ProviderLynn MD azelastine (ASTELIN) 137 mcg (0.1 %) nasal spray azelastine 137 mcg (0.1 %) nasal spray aerosol [place] 2 sprays every day by nasal route for 31 days. Yes ProviderLynn MD buPROPion (WELLBUTRIN) 100 mg tablet Take 1 tablet (100 mg total) by mouth 2 (two) times a day Yes ProviderLynn MD carBAMazepine (TEGretol) 200 mg tablet Take 0.5 tablets (100 mg total) by mouth 3 (three) times a day 12/10/19 Yes ProviderLynn MD cetirizine (ZyrTEC) 10 mg tablet Take [...] by mouth daily 05/31/22 05/31/23 Yes Sergio Riso MD ergocalciferol (VITAMIN D) 50,000 unit capsule [...] for low blood sugar. 09/12/21 Debbie Smith, CANDLE EXTRUSION MACHINE OPERATOR HYDROcodone-chlorpheniramine ER (TUSSIONEX PENNKINETIC) 2-1.6 mg/mL ER [...] cartridge Change pod q 3 days 08/30/22 Deedee Hussein PA insulin pump cart,cont inf,BT (Omnipod Dash Pods, Gen 4,) cartridge Change q 3 days 08/13/22 Kurt Saini MD ketorolac (ACULAR LS) 0.4 % drops Administer 1 drop into both eyes 2 (two) times a day Lynn Moon MD olopatadine 0.6 % spray,non-aerosol olopatadine 0.6 % nasal spray Lynn Moon MD OneTouch Delica Plus Lancet 33 gauge [...] Patient not taking: Reported on 08/29/2022 07/25/20 Lynn Moon MD Review of Systems A pertinent, focused review [...] Female Attending MD: Yancy Desai M.D. Room: [facility] 01 Note Status: Finalized [...] scope was passed under direct vision. The [id number] was introduced through the anus and advanced to the terminal ileum, with identification of the appendiceal orifice and IC valve. The colonoscopy was performed without difficulty. The patient tolerated the procedure well. The quality of the bowel preparation was evaluated using the BBPS ([place] Bowel Preparation Scale) with scores of: Right [...] your results within this timeframe, please call [phone] regarding your results. - Contact Information: During normal business hours - Please call the Nurse Coordinator: [phone] After hours, evening, nights, weekends and holidays - Please call the hospital dull coat mill operator at and ask for the GI fellow cert occupational therapy asst. - . Attending Participation: I personally performed [...] Female Attending MD: Yancy Desai M.D. Room: [facility] 01 Note Status: Finalized [...] and oxygen saturations were monitored continuously. The [id number] was introduced through the mouth, and advanced [...] your results within this timeframe, please call [phone] regarding your results. - Contact Information: During normal business hours - Please call the Nurse Coordinator: [phone] After hours, evening, nights, weekends and holidays - Please call the hospital dull coat mill operator at and ask for the GI fellow cert occupational therapy asst. - - Attending Participation: I personally performed [...] Female Attending MD: Yancy Desai M.D. Room: [facility] 01 Note Status: Finalized [...] The scope was passed under direct vision.The [id number] was introduced through the anusand advanced to [...] your results within this timeframe, please call [phone] regarding your results. - Contact Information: During normal business hours - Please call theNurse Coordinator: [phone] After hours, evening, nights, weekends and holidays- Please call the hospital dull coat mill operator at and ask for the GI fellow cert occupational therapy asst. - . Attending Participation: I personally performed [...] gastric) 11/01/2022 11:57 AM CDT Narrative PATHOLOGY [facility] - 11/04/2022 11:18 AM CDT EPIC results best viewed via link to PDF [facility] Daniella Wright [facility] [place] [address] Note to Patients: This report may contain [...] PATHOLOGY REPORT FINAL Patient Name: ?? ALANNAH RUNAOAristides Gender: ??F : ??1980 (Age: 42) Address: ??[address] [place] [address] ??[id number] Hospital #: ??[id number] Taken:11/01/2022 Received:11/01/2022 Reported: 11/04/2022 Patient Type: C EP SAME Client ?[facility] Service: Gastro Location: Physician(s): ??Salvatore Chandler P.A. [...] ? - No high-grade dysplasia or malignancy ks2/11/02/2022 08:20 By this signature, I attest that [...] 0. cnewho/11/01/2022 15:01 PA(s): DONNA Maloney, CT ([facility]) By this signature, I attest that the above diagnosis is based upon my personal examination of the slides(and/or other material). Addenda/Procedures Microscopic slide review and interpretation for this case was performed at [facility], Department of Surgical Pathology, [address] [facility], [place] [id number], ??[place], [place] ??[address] ?? CLIA # [id number] The performance characteristics of some immunohistochemical stains, fluorescence in-situ hybridization tests and immunophenotyping by flow cytometry cited in this report (if any) were determined by the Surgical Pathology and Flow Cytometry Departments at [facility] as part of an ongoing director quality systems program and in compliance with federally mandated [...] Surgical Pathology and Flow Cytometry Departments of [facility]. ??It has not been cleared or approved by the U. S. Food and Drug Administration. IMAGES AND SCANNED DOCUMENTS, IF INCLUDED, ONLY VIEWABLE IN PDF VERSION OF REPORT Yancy Desai MD LAB PATHOLOGY ORDERABLES Final Result PATHOLOGY [facility] [phone] * EGD (11/01/2022 11:14 AM CDT) Anatomical Region Laterality Modality Other Narrative Procedure Note Yancy Desai MD - 11/01/2022 11:14 AM CDT ENDOSCOPY LAB Patient Name: Alannah Ruano Procedure Date: 11/01/2022 11:14 AM Date of : 1980 Admit Type: Outpatient Age: 42 Gender: Female Attending MD: Yancy Desai M.D. Room: [facility] 01 Note Status: Finalized [...] and oxygen saturations were monitored continuously. The [id number] was introduced through the mouth,and advanced to [...] your results within this timeframe, please call [phone] regarding your results. - Contact Information: During normal business hours - Please call theNurse Coordinator: [phone] After hours, evening, nights, weekends and holidays- Please call the hospital dull coat mill operator at and ask for the GI fellow cert occupational therapy asst. - - Attending Participation: I personally performed the entire procedure. Electronically Signed By: Yancy Desai M.D. Yancy Desai M.D. 11/01/2022 11:34:46 AM Number of Addenda: 0 Note Initiated On: 11/01/2022 11:14 AM Yancy Desai MD ENDOSCOPY PROCEDURES Fin al Result * POCT glucose (11/01/2022 10:00 AM CDT) Glucose, POC 96 70 - 199 mg/dL AILEEN LANGFORD Comment: Interpretive Data Glucose is assumed to be non-fasting. Fasting Glucose reference ranges are: 0 - 150 years: ??70 mg/dL - 99 mg/dL Current interpretive data was last revised on 2013. POC Performer [id number] AILEEN WILKINSONCECE POC Device Number [id number] AILEEN LANGFORD Blood 11/01/2022 10:0 0 AM CDT 11/01/2022 10:00 AM CDT Yancy Desai MD LAB POCT ORDERABLES - DE VICE Final Result [facility] [id number] [facility] [place] [address] * POCT hCG, urine (11/01/2022 9:52 AM CDT) HCG, ur, POC Negative Lot Number [id number] QC Backgroud Clear Acceptable QC Control Line Acceptable Urine 11/01/2022 9:52 AM CDT Historical Provider POINT OF CARE TEST ORDERA BLES Final Result documented in this encounter Visit Diagnoses Diagnosis Other irritable bowel syndrome Nausea and vomiting, unspecified vomiting type Gastroesophageal reflux disease without esophagitis Esophageal reflux Diarrhea, unspecified type Hematochezia Blood in stool Irritable bowel syndrome documented in this encounter Admitting Diagnoses Diagnosis [...] (GI) 1008 (Given - Provid er: Elin Garza, SILVER)1221 (Given - Provider: Tona Mcdaniels RN) sodium [...] 11/01/2022 documented in this encounter Care Teams Political Aide Relationship Specialty Start Date End Date Deedee Low PA PCP - General 03/13/17 documented as of this encounter
--- OUTSIDE RECORDS SUMMARY | 2024-02-24 17:11 | XMS_ITS | Encounter Summary ---
Author Organization [facility] Address [address] [place] [address] Phone Care Team Providers Care Property Insurance Claims Examiner Name Role Phone Deedee Low Primary Care Pr ovider Encounter Details Date Type Department Care Team (Late st Contact Info) Description 01/24/2023 Telephone [facility] Gastroenter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 ESS EXCELLENCE MANAGER * Telephone Encounter - Rosa Ortiz - 01/24/2023 1:30 PM PROCESS EXCELLENCE MANAGER Pharm called. Aciphex refills were canceled in their system. Would like refills sent again. ESS EXCELLENCE MANAGER documented in this encounter Plan of Treatment Not on file documented as of this encounter Visit Diagnoses Not on filedocumented in this encounter Care Teams Property Insurance Claims Examiner Relationship Specialty Start Date End Date Deedee Low PA PCP - General 03/13/17 documented as of this encounter
--- OUTSIDE RECORDS SUMMARY | 2024-02-24 17:11 | XMS_ITS | Encounter Summary ---
Author Organization [facility] Healthcare Address [address] [place] [address] Care Team Providers Care Casting House Laborer Name Role Phone Deedee Low Primary Care Pr ovider Encounter Details Date Type Department Care Team (Latest Contact Info) Description 09/24/2022 8:37 AM CDT - 09/24/2022 11:59 PM CDT Hospital Encounter [address] [address] Discharge Disposition: Discharge to home or self care Social History Tobacco Use Types Packs/Day Years Used Date Smoking Tobacco: Former Smokeless Tobacco: Never Comments:smoked for 3 years Alcohol Use Standard Drinks/Week Comments Yes 0 (1 standard drink = 0.6 oz pur e alcohol) AUDIT-C Answer Date Recorded Q1: How often do you have a drink containing alc ohol? 2-4 times a month 03/22/2022 Q2: How many drinks containi ng alcohol do you have on a typical day when you are drinking? 1 or 2 03/22/2022 Q3: How often do you have si x or more drinks on one occasion? 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 blood glucose diagnostic stripIndications:Ty pe 2 diabetes mellitus with hyperglycemia, with long-term current use of insulin ([facility]) Use to check bg 7 times daily 500 each 1 0 blood-glucose meter miscIndications:Typ e 2 diabetes mellitus with hyperglycemia, with long-term current use of insulin ([facility]) Check bg daily 1 each 0 buPROPion [...] Ultra-Fine Florina Pen Needle) 32 gauge x 32 needleIndications:T ype 2 diabetes mellitus with hyperglycemia, [...] 2 blood-glucose sensor (Dexcom G6 Sensor) device Change q 10 days 9 each 3 2 10/18/19 23 blood-glucose transmitter (Dexcom G6 Transmitter) device Change [...] 2 (two) times a day 01/03/20 23 linaCLOtide (Linzess) 72 mcg capsuleIndications: Other irritable bowel syndrome Take 1 capsule (72 mcg total) by mouth daily 90 capsule 3 10/24/19 23 losartan (COZAAR) 50 mg tablet losartan [...] on filedocumented in this encounter Care Teams Casting House Laborer Relationship Specialty Start Date End Date Deedee Low PA PCP - General 03/13/17 documented as of this encounter
--- OUTSIDE RECORDS SUMMARY | 2024-02-24 17:11 | XMS_ITS | Encounter Summary ---
Author Organization [facility] Healthcare Address [address] [place] [address] Care Team Providers Care Well Head Pumper Name Role Phone Deedee Low Primary Care Pr ovider Reason for Visit * Reason Comments Follow-up 6 mo f/u. SE on 12/09 05/03. 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 Not on file Not on file documented as of this encounter Last Filed Vital Signs Vital Sign Reading Time Taken Comments Blood Pressure 124/78 02/27/2023 8:32 AM DESK ATTENDANT Pulse 94 02/27/2023 8:32 AM DESK ATTENDANT Temperature - - Respiratory Rate - - Oxygen Saturation 99% 02/27/2023 8:32 AM DESK ATTENDANT Inhaled Oxygen Concentration - - Weight 93.9 kg (207 lb 1.6 oz) 02/27/2023 8:32 A M DESK ATTENDANT Height 162.6 cm (5' 4 ) 02/27/2023 8:32 AM DESK ATTENDANT Body Mass Index 35.55 02/27/2023 8:32 AM DESK ATTENDANT documented in this encounter Progress Notes * Cristhian Fernandez MD - 02/27/2023 8:30 AM CST [facility] 02/27/2023 Alannah Ruano is a 42 y.o. female who presents [...] her blood pressure is generally nicely controlled. She returns to the office today for consultation follow-up after her stress echocardiogram. The stress echo was done in the office in December of 2022 and was completely unremarkable there was no ECG or echocardiographic evidence of ischemia. She was happy to hear this. At this time I did not recommend any additional cardiac workup or follow-up she can follow-up with her PCP in this time I believe REVIEW OF SYSTEMS General ROS: negative for - chills, fatigue, fever, malaise, night sweats, weight gain or weight loss Psychological ROS: negative for - anxiety, depression, memory difficulties or sleep disturbances Ophthalmic ROS: negative for - blurry vision, decreased vision, loss of vision or scotomata ENT ROS: negative for - epistaxis, headaches, hearing change, nasal congestion, nasal discharge, sore throat, vertigo or visual changes Hematological and Lymphatic ROS: negative for - bleeding problems, blood clots, bruising, fatigue or weight loss Endocrine ROS: negative for - hot flashes, palpitations, polydipsia/polyuria or unexpected weight changes Respiratory ROS: negative for - cough, hemoptysis, orthopnea, shortness of breath, tachypnea or wheezing Cardiovascular ROS: negative for - chest pain, dyspnea on exertion, edema, irregular heartbeat, loss of consciousness, murmur, orthopnea, palpitations, paroxysmal nocturnal dyspnea, rapid heart rate or shortness of breath Gastrointestinal ROS: negative for - abdominal pain, appetite loss, blood in stools, constipation, diarrhea, gas/bloating, heartburn, hematemesis, melena or nausea/vomiting Genito-Urinary ROS: negative for - dysuria, erectile dysfunction or hematuria Musculoskeletal ROS: negative for - joint pain, muscle pain or muscular weakness Dermatological ROS: negative for dry skin, eczema, pruritus and rash HOME MEDICATIONS Current Outpatient Medications: albuterol 2.5 mg /3 [...] 137 mcg (0.1 %) nasal spray aerosol [place] 2 sprays every day by nasal route [...] OR VOMITING, Disp: 20 tablet, Rfl: 0 OneTouch [...] 0.1 % ointment, , Disp: , Rfl: No current facility-administered medications for this visit. Facility-Administered Medications Ordered in Other Visits: perflutren lipid (DEFINITY) 1.5 mL in sodium chloride 0.9% 10 mL syringe, 1-10 mL, intravenous, Once in imaging, Cristhian Fernandez MD LABS AND OTHER DIAGNOSTIC TESTS Lab Results Component Value Date CHOL 169 09/24/2022 CHOL 284 (H) 09/09/2021 CHOL 221 (H) 06/09/2021 Lab Results Component Value Date HDL 41 09/24/2022 HDL 43 09/09/2021 HDL 33 (L) 06/09/2021 Lab Results Component Value Date LDLCALC 100 09/24/2022 LDLCALC See Comment 09/09/2021 LDLCALC 163 (H) 06/09/2021 Lab Results Component Value Date TRIG 139 09/24/2022 TRIG See Comment 09/09/2021 TRIG 124 06/09/2021 Lab Results Component Value Date CHOLHDL 4 09/24/2022 CHOLHDL 7 09/09/2021 CHOLHDL 7 06/09/2021 Lab Results Component Value Date WBC 7.9 09/24/2022 HGB 14.3 09/24/2022 HCT 42.2 09/24/2022 MCV 91.1 09/24/2022 No lab exists for component: LABALBU PHYSICAL EXAM Vitals BP 124/78 (BP Location: Right arm, Patient Position: Sitting) Pulse 94 Ht 162.6 cm (5' 4 ) Wt 93.9 kg (207 lb 1.6 oz) SpO2 99% BMI 35.55 kg/m?? Physical Examination: General appearance - alert, pleasant overweight lady comfortable and cooperative and in no distress, oriented to person, place, and time and acyanotic, in no respiratory distress Mental status - affect appropriate to mood Eyes - extraocular eye movements intact, sclera anicteric, no pallor Ears - external earsappear normal, hearing grossly normal bilaterally Nose - normal and patent, no erythema or discharge Mouth - mucous membranes moist, pharynx appears normal, dental hygiene good and tongue normal Neck - supple, no significant neck masses, carotids upstroke normal bilaterally, no bruits, no JVD Chest - clear to auscultation, no wheezes, rales or rhonchi, symmetric air entry, no tachypnea, retractions or cyanosis Heart - normal rate, regular rhythm, normal S1, S2, no murmurs, rubs, clicks or gallops, no JVD Abdomen - soft, nontender, nondistended, no masses or organomegaly bowel sounds normal Neurological - alert, oriented, normal speech, no focal findings or movement disorder noted Musculoskeletal - no joint tenderness, deformity or swelling, no muscular tenderness noted Extremities - peripheral pulses normal, no pedal edema, no clubbing or cyanosis Skin - normal coloration and turgor, no rashes, no suspicious skin lesions noted ASSESSMENT Alannah Malik was seen today for follow-up and nonsustained vt. Diagnoses and all orders for this visit: Nonsustained ventricular tachycardia (HCC) Nonsustained ventricular tachycardia PLAN/RECOMMENDATIONS There is no evidence of structural or ischemic heart disease at this time despite her risk factors.I at this time would not recommend treating her arrhythmias with anything as they are brief and asymptomatic and occurring in the setting of normal LV function and no significant coronary disease. Patient can be seen p.r.n. Cristhian Fernandez MD ATTENDANT documented in this encounter Plan of Treatment Not on file documented as of this encounter Visit Diagnoses Diagnosis Nonsustained ventricular tachycardia (HCC)- Primary documented in this encounter Discontinued Medications Medication Sig Discontinue Reason Start Date End Da te asenapine maleate (SAPHRIS) 5 mg tablet, sublingual PLACE 1 TABLET UNDER THE TONGUE EACH MORNING AND 2 TABLETS EACH NIGHT Therapy completed 02/27/2023 benzonatate (TESSALON) 200 mg capsuleIndications:Acut e cough Take 1 capsule (200 mg total) by mouth 3 (three) times a day as needed for cough Therapy completed 12/24/2022 02/27/2023 dexAMETHasone (DECADRON) 1 mg tablet TAKE 1 TABLET BY MOUTH WHEN DIRECTED Therapy completed 02/27/2023 risperiDONE (RisperDAL) 0.5 mg tablet TAKE 1 TABLET TWICE A DAY (OR MAY TAKE AT NIGHT) Therapy completed 02/27/2023 insulin pump cart,cont inf,BT (Omnipod Dash Pods, Gen 4,) cartridgeIndications:Ty pe 2 diabetes mellitus with hyperglycemia, with long-term current use of insulin (HCC) Change q 3 days Alternate therapy 08/13/2022 3 documented as of this encounter Care Teams Well Head Pumper Relationship Specialty Start Date End Date Deedee Low PA PCP - General 03/13/17 documented as of this encounter
--- OUTSIDE RECORDS SUMMARY | 2024-02-24 17:11 | XMS_ITS | Encounter Summary ---
Author Organization [facility] Healthcare Address [address] [place] [address] Care Team Providers Care Senior Software Manager Name Role Phone Deedee Low Primary Care Pr ovider Reason for Referral * Diagnostic Imaging (Routine) - Closed Specialty Diagnoses / Procedures Referred By Angelita silva Referred To Contact Diagnoses Right hand pain Procedures XR Hand Right 3+ Vw Angelita Schilling NP [address] [address] Phone: tel: fax: [facility] Referral ID Status Reason Start Date Expiration Date Visits Re quested Visits Authorized [id number] Closed 04/19/2023 05/18/2024 1 1 ROOM PRESS OPERATOR Reason for Visit * Reason Comments Hand Injury Patient ran right tsang nd into door frame 2 days ago. Lots of pain with activity. Encounter Details Date Type Department Care Team (Late st Contact Info) Description 04/19/2023 8:30 AM MUSHROOM PRESS OPERATOR Office Visit [facility] Convenient Care at [address] [address] Angelita Schilling NP [address] [place] [id number] Right hand pain (Primary Dx); Right wrist pain Social History Tobacco Use Types Packs/Day Years Used Date Smoking Tobacco: Former Cigarettes Smokeless Tobacco: Never Comments:Randomly in late [employer] Alcohol Use Standard Drinks/Week Comments [...] on file Legal Sex Female 10:18 AM MUSHROOM PRESS OPERATOR Gender Identity Female 09/21/2019 9:02 PM CDT Sexual Orientation Not on file 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 Not on file documented as of this encounter Last Filed Vital Signs Vital Sign Reading Time Taken Comments Blood Pressure 124/72 04/19/2023 8:29 AM MUSHROOM PRESS OPERATOR Pulse 85 04/19/2023 8:29 AM MUSHROOM PRESS OPERATOR Temperature 37 ??C (98.6 ??F) 04/19/2023 8:29 AM MUSHROOM PRESS OPERATOR Respiratory Rate 14 04/19/2023 8:29 AM MUSHROOM PRESS OPERATOR Oxygen Saturation 99% 04/19/2023 8:29 AM MUSHROOM PRESS OPERATOR Inhaled Oxygen Concentration - - Weight 93 kg (205 lb) 04/19/2023 8:29 AM MUSHROOM PRESS OPERATOR Height 162.6 cm (5' 4 ) 04/19/2023 8:29 AM MUSHROOM PRESS OPERATOR Body Mass Index 35.19 04/19/2023 8:29 AM MUSHROOM PRESS OPERATOR documented in this encounter Patient Instructions * Patient Instructions* Angelita Schilling NP - 04/19/2023 8:30 AM MUSHROOM PRESS OPERATOR If you have no improvement or worsening [...] meet your needs. Thank you for choosing [facility]! It was my pleasure to see you today, I hope you feel better soon! Angelita Schilling HELP DESK ADMINISTRATOR ROOM PRESS OPERATOR documented in this encounter Progress Notes * Angelita Schilling NP - 04/19/2023 8:30 AM CST Images from the original note were not included. Subjective/Objective Patient ID: Alannah Ruano is a 43 y.o. female. Chief Complaint Hand Injury (Patient ran right hand into door frame 2 days ago. Lots of pain with activity. ) Pt presents to [facility] Hand Injury The incident occurred 2 days ago. The incident occurred at home. The injury mechanism was a direct blow (taking husky dog outside and dog pulled on leasch and hand hit metal door frame). The pain is present in the right hand. The quality of the pain is described as aching. Radiates to: right wrist and index finger. The pain is moderate. The pain has been Fluctuating since the incident. Associatedsymptoms include numbness. Pertinent negatives include no muscle weakness. The symptoms are aggravated by palpation and movement. She has tried NSAIDs for the symptoms. The treatment provided moderate (gradually improving over the past couple days) relief. Review of Systems Constitutional: Negative for chills, diaphoresis, fatigue and fever. Respiratory: Negative. Negative for cough and shortness of breath. Cardiovascular: Negative. Gastrointestinal: Negative for vomiting. Musculoskeletal: Right hand pain that radiates to wrist and index finger Skin: Negative for color change and wound. Neurological: Positive for numbness. Negative for dizziness and headaches. Psychiatric/Behavioral: Negative for self-injury. Physical Exam Vitals and nursing note reviewed. Constitutional: General: She is not in acute distress. Appearance: Normal appearance. She is not ill-appearing. Cardiovascular: Rate and Rhythm: Normal rate. Pulses: Normal pulses. Pulmonary: Effort: Pulmonary effort is normal. Musculoskeletal: Right wrist: Bony tenderness present. No swelling, deformity or lacerations. Normal range of motion. Right hand: Swelling, tenderness and bony tenderness present. No deformity or lacerations. Decreased strength (secondary to pain). Normal sensation. Normal capillary refill. Normal pulse. Skin: General: Skin is warm and dry. Capillary Refill: Capillary refill takes less than 2 seconds. Neurological: Mental Status: She is alert and oriented to person, place, and time. Vitals: 04/19/23 0829 BP: 124/72 Pulse: 85 Resp: 14 Temp: 37 ??C (98.6 ??F) SpO2: 99% Weight: 93 kg (205 lb) Height: 162.6 cm (5' 4 ) [...] 137 mcg (0.1 %) nasal spray aerosol [place] 2 sprays every day by nasal route for 31 days., Disp: , Rfl: bevacizumab (AVASTIN) 25 mg/mL injection, , Disp: , Rfl: blood glucose diagnostic strip, Use to check bg 7 times daily, Disp: 500 each, Rfl: 1 blood-glucose meter [facility], Check bg daily, Disp: 1 each, Rfl: [...] 12 hr tablet, , Disp: , Rfl: fexofenadine (OCHOA) 180 mg [...] on 03/21/2023), Disp: 60 capsule, Rfl: 2 No current facility-administered medications for this visit. [...] Diagnoses and all orders for this visit: Right hand pain (Primary) - XR Hand Right 3+ Vw; Future - Armand Wrap Right wrist pain - XR Wrist Right 3+ Vw; Future - Armand Wrap IMPRESSION: No acute findings right hand or wrist. Patient Education: RICE May alternate ibuprofen and Tylenol as needed for pain per package directions If symptoms persist past 7-10 days or worsen at any time please follow-up with your PCP and or orthopedics. Disposition Treatment plan including expectations, follow up, [...] office note has been partially dictated using LiveData software, and as a result portions of the record may have been created with this software. Occasional wrong-word or '[id number]' substitutions may have occurred due to the inherent limitations of voice recognition software. Read the chartcarefully and recognize, using context, where substitutions have occurred. ROOM PRESS OPERATOR ROOM PRESS OPERATOR documented in this encounter Plan of Treatment Not on file documented as of this encounter Results * XR Hand Right 3+ Vw (04/19/2023 8:59 AM MUSHROOM PRESS OPERATOR) Anatomical Region Laterality Modality Upper Extremities, Hand Right Digital Radiography 04/19/2023 9:32 AM MUSHROOM PRESS OPERATOR Narrative 04/19/2023 9:33 AM MUSHROOM PRESS OPERATOR EXAM DESCRIPTION: ?? XR HAND RIGHT 3 OR MORE VIEWS REASON FOR STUDY: ?? Other (type), hit hand on metal and wood door frame 2 days ago ?? Hit hand into door on the 6th. Pt complains of radial wrist pain and 1st metacarpal pain. No prior surgery ?? TECHNIQUE: ??Three views COMPARISON: ??None available FINDINGS: No fracture or dislocation. ??No lytic or destructive process. Joint spaces are maintained. Soft tissues are unremarkable. IMPRESSION: No acute findings right hand. THIS IS AN ELECTRONICALLY VERIFIED FINAL REPORT 04/19/2023 9:33 AM - Electronically signed by ??Obi Aly M.D. RB D: ??04/19/2023 9:33 AM T: Report ID: [id number] Reading Location: ??[id number] Procedure Note Obi Aly MD - 04/19/2023 EXAM DESCRIPTION: XR HAND RIGHT 3 OR MORE VIEWS REASON FOR STUDY: Other (type), hit hand on metal and wood door frame 2days ago Hit hand into door on the 6th. Pt complains of radial wrist pain and 1st metacarpal pain. No prior surgery TECHNIQUE: Three views COMPARISON: None available FINDINGS: No fracture or dislocation. No lytic or destructive process. Joint spaces are maintained. Soft tissues are unremarkable. IMPRESSION: No acute findings right hand. THIS IS AN ELECTRONICALLY VERIFIED FINAL REPORT 04/19/2023 9:33 AM - Electronically signed by Obi Aly M.D. RB T: Report ID: [id number] Reading Location: [place] [address] Angelita Schilling NP IMG XR PROCEDURES Final Result * XR Wrist Right 3+ Vw (04/19/2023 8:58 AM MUSHROOM PRESS OPERATOR) Anatomical Region Laterality Modality Upper Extremities, Wrist Right Digital Radiography 04/19/2023 9:33 AM MUSHROOM PRESS OPERATOR Narrative 04/19/2023 9:34 AM MUSHROOM PRESS OPERATOR EXAM DESCRIPTION: ?? XR WRIST RIGHT 3 OR MORE VIEWS REASON FOR STUDY: ?? Other (type) ?? Hit hand into door on the 6th. Pt complains of radial wrist pain and 1st metacarpal pain. No prior surgery ?? TECHNIQUE: ??Three views COMPARISON: ??None available FINDINGS: No acute fracture or dislocation. ??No lytic or destructive process. Joint spaces are preserved. Soft tissues are unremarkable. IMPRESSION: No acute findings right wrist. THIS IS AN ELECTRONICALLY VERIFIED FINAL REPORT 04/19/2023 9:34 AM - Electronically signed by ??Obi DENNIS D: ??04/19/2023 9:34 AM T: Report ID: [id number] Reading Location: ??[id number] Procedure Note Obi Aly MD - 04/19/2023 EXAM DESCRIPTION: XR WRIST RIGHT 3 OR MORE VIEWS REASON FOR STUDY: Other (type) Hit hand into door on the 6th. Pt complains of radial wrist pain and 1st metacarpal pain. No prior surgery TECHNIQUE: Three views COMPARISON: None available FINDINGS: No acute fracture or dislocation. No lytic or destructive process. Joint spaces are preserved. Soft tissues are unremarkable. IMPRESSION: No acute findings right wrist. THIS IS AN ELECTRONICALLY VERIFIED FINAL REPORT 04/19/2023 9:34 AM - Electronically signed by Obi DENNIS T: Report ID: [id number] Reading Location: [id number] Angelita Schilling NP IMG XR PROCEDURES Final Result documented in this encounter Visit Diagnoses Diagnosis Right hand pain- Primary Pain in soft tissues of limb Right wrist pain Pain in joint, forearm Right hand pain Pain in soft tissues of limb Right hand pain Pain in soft tissues of limb documented in this encounter Orders General Supply Count Last Ordered Date First Or dered Date ARMAND WRAP 1 04/19/2023 documented in this encounter Care Teams Senior Software Manager Relationship Specialty Start Date End Date Deedee Low PA PCP - General 03/13/17 documented as of this encounter
--- OUTSIDE RECORDS SUMMARY | 2024-02-24 17:11 | XMS_ITS | Encounter Summary ---
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 bevacizumab (AVASTIN) 25 mg/mL injection prn blood glucose diagnostic stripIndications:Ty pe 2 diabetes mellitus with hyperglycemia, with long-term current use of insulin ([facility]) Use to check bg 7 times daily 500 each 1 0 blood-glucose meter miscIndications:Typ e 2 diabetes mellitus with hyperglycemia, with long-term current use of insulin ([facility]) Check bg daily 1 each [...] (two) times a day 09/17/19 2 2 asenapine maleate (SAPHRIS) 5 mg tablet, sublingual PLACE 1 TABLET UNDER THE TONGUE EACH MORNING AND 2 TABLETS EACH NIGHT 02/28/20 23 benzonatate (TESSALON) 200 mg capsuleIndications: Acute cough Take 1 capsule (200 mg total) by mouth 3 (three) times a day as needed for cough 30 capsule 3 02/28/20 23 blood-glucose sensor (Dexcom G6 Sensor) device USE DIRECTED CHANGE EVERY 10 DAYS 9 each 3 3 10/21/19 24 blood-glucose transmitter (Dexcom G6 Transmitter) device Change q 3 months 1 each 3 2 01/22/20 23 dapagliflozin propanediol (FARXIGA) 10 mg tablet Take 1 tablet (10 mg total) by mouth daily 90 tablet 3 3 01/18/20 23 dexAMETHasone (DECADRON) 1 mg tablet TAKE 1 TABLET BY MOUTH WHEN DIRECTED 02/28/20 23 doxycycline 100 mg capsuleIndications: Prophylaxis, Medical Take 1 tablet/capsule (100 mg total) by mouth daily 90 tablet/capsu le 3 3 05/02/19 24 fenofibrate (TRIGLIDE) 160 mg tablet Take 1 tablet (160 mg total) by mouth daily 05/09/19 24 insulin aspart (NovoLOG) 100 unit/mL (3 mL) pen for injection INJECT UP TO 44 UNITS 3 TIMES A DAY BEFORE MEALS 01/03/20 23 insulin aspart (NovoLOG) 100 unit/mL vial for injection USE UP TO 160 UNITS DAILY USING INSULIN PUMP 01/03/20 23 insulin lispro (HumaLOG) 100 unit/mL vial [...] (two) times a day 01/03/20 23 linaCLOtide (LINZESS) 145 mcg capsule Take 1 capsule (145 mcg total) by mouth daily 16 capsule 3 01/05/20 23 losartan (COZAAR) 50 mg tablet losartan 50 mg tablet TAKE 1 TABLET BY MOUTH EVERY DAY 03/21/19 24 methylPREDNISolone (MEDROL) 4 mg tablet 01/03/20 23 ondansetron ODT (ZOFRAN-ODT) 4 mg disintegrating tablet Take 2 tablets (8 mg total) by mouth every 8 (eight) hours as needed for nausea or vomiting 20 tablet 6 3 01/18/20 23 polyethylene glycol (GoLYTELY) 236-22.74-6.74 -5.86 gram solution Follow the instructions from Dr. Desai's office not the instructions on the bottle. 4000 mL 3 01/03/20 23 prucalopride (Motegrity) 2 mg tabletIndications:O ther irritable bowel syndrome Take 1 tablet (2 mg total) by mouth daily 30 tablet 2 3 01/05/[address] (ACIPHEX) 20 mg EC tabletIndications:G astroesophageal reflux disease without esophagitis Take 1 tablet (20 mg total) by mouth 2 (two) times a day 60 tablet 2 3 01/26/20 23 risperiDONE (RisperDAL) 0.5 mg tablet TAKE 1 TABLET TWICE A DAY (OR MAY TAKE AT NIGHT) 02/28/20 23 semaglutide (Ozempic) 0.25 mg or 0.5 mg (2 mg/3 mL) pen injector injection INJECT 0.5MG SUBCUTANEOUSLY ONCE A WEEK, EVERY 7 DAYS 01/03/20 23 semaglutide (Ozempic) 0.25 mg or 0.5 mg(2 mg/1.5 mL) pen injector injection INJECT 1/2 (ONE-HALF) MG SUBCUTANEOUSLY ONCE A WEEK 01/03/20 23 tirzepatide (Mounjaro) 5 mg/0.5 mL pen injector INJECT 5 MG SUBCUTANEOUSLY ONCE A WEEK EVERY 7 DAYS 4 mL 6 3 01/03/20 ziprasidone (GEODON) 20 mg capsule Take 1 capsule (20 mg total) by mouth 2 (two) times a day with meals 1 01/03/20 documented as of this encounter Discharge Disposition Disposition Code Departure Means Destination Discharge to home or self care documented in this encounter Miscellaneous Notes * Result Encounter Note - Baylee Hector NP - 12/24/2022 11:59 PM CDT Please notify patient of negative COVID-19/RSV/FLU test. Patient should rest, stay hydrated, and take OTC medications as needed. Monitor symptoms and if they worsen follow up with primary care doctoror ER if needed. * Result Encounter Note - Khushi [place] MA - 12/24/2022 11:59 PM CDT Message sent, patient seen via [employer] * Result Encounter Note - Baylee Hector NP - 12/24/2022 11:59 PM CDT Please alert patient of negative strep culture. Patient should continue tylenol/ibuprofen as directed for discomfort and f/u with PCP if symptoms persist. * Result Encounter Note - Yanni Shrestha MA - 12/24/2022 11:59 PM CDT Patient view results on My Chart documented in this encounter Plan of Treatment Not on file documented as of this encounter Procedures Procedure Name Priority Date/Time Associated Diagnosis Comments INFLUENZA A/B, RSV, AND COVID-19 PCR Routine 12/24/2022 1:59 PM CDT Acute cough THROAT CULTURE Routine 12/24/2022 1:59 PM CDT Acute cough documented in this encounter Results * Influenza A/B, RSV, and COVID-19 PCR Nasopharyngeal (12/24/2022 1:59 PM CDT) COVID-19 RNA Negative Negative Influenza A RNA Negative Negative [facility] Influenza B RNA Negative Negative [facility] RSV RNA Negative Negative [facility] Comment: Interpretive data: This test is performed using the Telanetixert Xpress CoV-2/Flu/RSV plus assay. This is a [...] PM CDT 12/24/2022 11:05 PM CDT Narrative [facility] - 12/25/2022 12:52 AM CDT Is the Patient experiencing symptoms consistent with COVID?->Yes Date of Symptom Onset->12/21/22 Reason for testing?->Symptomatic Baylee Hector CLAIMS AGENT RIGHT OF WAY LAB MICROBIOLOGY - GENERAL ORD ERABLES Final Result [facility] [id number] Department [place] [address] * Throat culture Throat (12/24/2022 1:59 PM CDT) Pathologist [facility] Report Final Report: No growth of pathogens. Comment:Testing performed by : [facility], [address] [place]., [address] Throat 12/24/2022 1:59 PM CDT 12/25/2022 2:53 AM CDT Narrative [facility] - 12/25/2022 10:45 PM CDT Testing performed by [facility] Microbiology Laboratory ([phone]). Baylee Hector CLAIMS AGENT [address] OF [address] LAB MICROBIOLOGY - GENERAL ORD ERABLES Final Result [facility] [address] Department [place] [address] documented in this encounter Visit Diagnoses Diagnosis Acute cough documented in this encounter Additional Health Concerns Infection Onset Date Last Indicated Resolved Time COVID: Suspected 12/24/2022 12/24/2022 12/24/2022 3:32 PM CDT COVID: Suspected 12/24/2022 12/24/2022 12/25/2022 12:54 AM CDT documented as of this encounter Care Teams Franchise Broker Relationship Specialty Start Date End Date Deedee Low PA PCP - General 03/13/17 documented as of this encounter
--- OUTSIDE RECORDS SUMMARY | 2024-02-24 17:11 | XMS_ITS | Encounter Summary ---
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 * Telephone Encounter - Alannah Kim RN - 12/27/2022 12:01 PM CDT Will forward to [facility]. Please advise. * Telephone Encounter - Toña Cruz - 12/27/2022 11:38 AM CDT Pt requesting call to discuss stress echo results from 12/20. Contact: documented in this encounter Plan of Treatment Not on file documented as of this encounter Visit Diagnoses Not on filedocumented in this encounter Care Teams Watchmaking Teacher Relationship Specialty Start Date End Date Deedee Low PA PCP - General 03/13/17 documented as of this encounter
--- OUTSIDE RECORDS SUMMARY | 2024-02-24 17:11 | XMS_ITS | Encounter Summary ---
Author Organization [facility] Healthcare Address [address] [place] [address] Care Team Providers Care Masseur/Masseuse Name Role Phone Deedee Low Primary Care Pr ovider Reason for Visit * Reason Onset Date Comments Prior Auth 12/24/2022 Dexcom G6 Transm itter Encounter Details Date Type Department Care Team (Late st Contact Info) Description 12/24/[address] 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 * Telephone Encounter - Tania Lux MA - 12/24/2022 11:41 AM CDT Prior auth for Dexcom G6 Transmitter started on [facility] Kaur: [id number] documented in this encounter Plan of Treatment Not on file documented as of this encounter Visit Diagnoses Not on filedocumented in this encounter Additional Health Concerns Infection Onset Date Last Indicated Resolved Time COVID: Suspected 12/24/2022 12/24/2022 12/24/2022 3:32 PM CDT COVID: Suspected 12/24/2022 12/24/2022 12/25/2022 12:54 AM CDT documented as of this encounter Care Teams Masseur/Masseuse Relationship Specialty Start Date End Date Deedee Low PA PCP - General 03/13/17 documented as of this encounter
--- OUTSIDE RECORDS SUMMARY | 2024-02-24 17:11 | XMS_ITS | Encounter Summary ---
Author Organization [facility] Healthcare Address [address] [place] [address] Care Team Providers Care Transport Specialist Name Role Phone Deedee Low Primary Care Pr ovider Reason for Visit * Reason Comments Follow-up TYPE 2 DM Encounter Details Date Type Department Care Team (Late st Contact Info) Description 01/02/2023 9:15 AM CDT Office Visit [facility] [id number] [place] [phone] [place] [id number] [place] [id number] Type 2 diabetes mellitus with hyperglycemia, with long-term current use of insulin (CMS/HCC) (HCC) (Primary Dx); Hyperlipidemia associated with type 2 diabetes mellitus (HCC); Hypertension associated with diabetes (HCC); Insulin pump in place Social History Tobacco Use Types Packs/Day Years [...] on file 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 Gender Identity Female 09/21/2019 9:02 PM CDT Sexual Orientation Not on file 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 Not on file Not on file documented as of this encounter Last Filed Vital Signs Vital Sign Reading Time Taken Comments Blood Pressure 126/88 01/02/2023 9:13 AM CDT Pulse 85 01/02/2023 9:13 AM CDT Temperature - - Respiratory Rate 18 01/02/2023 9:13 AM CDT Oxygen Saturation - - Inhaled Oxygen Concentration - - Weight 101.3 kg (223 lb 6.4 oz) 01/02/2023 9:13 AM CDT Height 152.4 cm (5') 01/02/2023 9:13 AM CDT Body Mass Index 43.63 01/02/2023 9:13 AM CDT documented in this encounter Patient Instructions * Patient Instructions* Deedee Hussein PA - 01/02/2023 9:15 AM CDT Set up [employer] account so we can view your downloads. Enter your transmitter code into your new PDM and turn on automated mode. Set your target at 110, correct above 150. Active insulin time 3 hours. documented in this encounter Ordered Prescriptions Prescription Sig Dispense Quantity Refills Last Filled Start Date End Date semaglutide (OZEMPIC) 1 mg/dose (4 mg/3 mL) pen injector injection Inject 1 mg under the skin every 7 days 9 mL 3 01/02/2023 09/05/2023 documented in this encounter Progress Notes * Deedee Hussein PA - 01/02/2023 9:15 AM CDT Images from the original note were not included. [facility] Diabetes Follow Up Visit Subjective/Objective Patient ID: Alannah Ruano is a 42 y.o. female who comes in today to our Endocrinology clinic tofollow up for DM management. Chief Complaint Follow-up (TYPE 2 DM) HPI Diabetes complications and/or comorbidity include: s/p gastric sleeve 08/29 (285 lbs prior to surgery, lowest 210 lbs), gastroparesis, macular edema. Current medications: Farxiga 10 mg Mounjaro 5 mg weekly - tolerating well but doesn't work as well for her as Ozempic. More food noise and doesn't suppress appetite as much. Novolog via Omnipod Dash insulin pump. She has OP5 system but had a lot of leftover Dash supplies so using these up first Basal 12a 0.8, 12p 1.1 IC 8 SF 25 T 100 AIT 4 hrs Also on phentermine, takes intermittently on her hungry days . Dietary habits: unchanged but worried about her weight regain. Exercise routine: limited due to back pain, but did PT and planning to meet with a personal trainerto get some exercises she can do at home. Has a walking pad. Home CBG monitoring results: checks blood sugars 4x/day via Dexcom. BG Average: 120 mg/dl with: <1% very high 3% high 95% in target range <2% low. Overnight pattern: generally flat and in range Postprandial pattern: minimal pC excursions No severe hypoglycemia. Neuropathy: no complaints. Last foot exam: 12/31 Statin therapy: Yes. Atorvastatin 40 mg. Last lipid panel: 09/30. Nephropathy: On MITESH-I / ARB???s: Yes. Losartan 50 mg. Last MA: 09/30. Last creat/GFR: 11/30. Retinopathy: Date of last eye examination: 07/31 HTN - on losartan. Wt Readings from Last 3 Encounters: 01/02/23 101.3 kg (223 lb 6.4 oz) 12/24/22 99.8 kg (220 lb) 12/19/22 100.7 kg (222 lb) Labs: Last A1c: Recent Labs Lab Units 01/02/23 0915 HEMOGLOBIN A1C % 5.4 No lab exists for component: [id number] Component Latest Ref Rng 09/09/2021 11/23/2021 03/29/2022 08/30/2022 Hgb A1C % 5.6 5.5 5.3 5.4 Lab Results Component Value Date MICROALBUR [...] Skin: Negative. Neurological: Negative. Psychiatric/Behavioral: Negative. Vitals: 01/02/23 0913 BP: 126/88 BP Location: Right arm Patient Position: Sitting Pulse: 85 Resp: 18 Weight: 101.3 kg (223 lb 6.4 oz) Height: 152.4 cm (5') Physical Exam Vitals reviewed. Constitutional: General: She [...] Skin Integrity: Negative for ulcer or callus. Skin: General: Skin is warm and dry. Neurological: General: No focal deficit present. Mental Status: She is alert. Psychiatric: Attention and Perception: Attention normal. Mood and Affect: Mood normal. Behavior: Behavior normal. Assessment/Plan Diagnoses and all orders for this visit: Type 2 diabetes mellitus with hyperglycemia, with long-term current use of insulin ([facility]) ([facility]) (Primary) Assessment & Plan: Chronic stable problem. She feels Ozempic 1 mg worked better for her than Mounjaro so wants to switch back. Rx sent. She also continues to use phentermine prn (maybe 2-3x/week) on her hungry days . We discussed her diet and exercise routine. Orders: - POCT hemoglobin A1c - POCT glucose Hyperlipidemia associated with type 2 diabetes mellitus ([facility]) Assessment & Plan: Chronic problem. On statin therapy, no changes. Hypertension associated with diabetes ([facility]) Assessment & Plan: Controlled on losartan. No changes. Insulin pump in place Assessment & Plan: No pump setting changes. Gave her info on target, AIT when she switches to OP5, along with setting up a K[employer] account. She is planning to start on it this weekend. Other orders - semaglutide (OZEMPIC) 1 mg/dose (4 mg/3 mL) pen injector injection; Inject 1 mg under the skin every 7 days DELMER Dong documented in this encounter Miscellaneous Notes * Assessment & Plan Note - Deedee Hussein PA - 01/02/2023 10:16 AM CDT Associated Problem(s): Type 2 diabetes mellitus with hyperglycemia, with long- term current use of insulin ([facility]) Chronic stable problem. She feels Ozempic 1 mg worked better for her than Mounjaro so wants to switch back. Rx sent. She also continues to use phentermine prn (maybe 2-3x/week) on her hungry days . We discussed her diet and exercise routine. * Assessment & Plan Note - Deedee Hussein PA - 01/02/2023 10:15 AM CDT Associated Problem(s): Insulin pump in place No pump setting changes. Gave her info on target, AIT when she switches to OP5, along with setting up a [employer] account. She is planning to start on it this weekend. * Assessment & Plan Note - Deedee Hussein PA - 01/02/2023 10:14 AM CDT Associated Problem(s): Hypertension associated with diabetes (HCC) Controlled on losartan. No changes. * Assessment & Plan Note - Deedee Hussein PA - 01/02/2023 10:14 AM CDT Associated Problem(s): Hyperlipidemia associated with type 2 diabetes mellitus (HCC) Chronic problem. On statin therapy, no changes. documented in this encounter Plan of Treatment Not on file documented as of this encounter Procedures Procedure Name Priority Date/Time Associated Diagnosis Comments POCT HEMOGLOBIN A1C Routine 01/02/2023 9 :15 AM CDT Type 2 diabetes mellitus with hyperglycemia, with long-term current use of insulin ([facility]) ([facility]) POCT GLUCOSE Routine 01/02/2023 9:15 AM CDT Type 2 diabetes mellitus with hyperglycemia, with long-term current use of insulin ([facility]) ([facility]) documented in this encounter Results * (ABNORMAL) POCT glucose (01/02/2023 9:15 AM CDT) Glucose Blood, POC 129 mg/dL Blood 01/02/2023 9:15 AM CDT Deedee DOWELL POINT OF CARE TEST АННА DEL CID Final Result * POCT hemoglobin A1c (01/02/2023 9:15 AM CDT) Hemoglobin A1C, POC 5.4 % Capillary blood 01/02/2023 9 :15 AM CDT Deedee DOWELL POINT OF CARE TEST АННА DEL CID Final Result documented in this encounter Visit Diagnoses Diagnosis Type 2 diabetes mellitus with hyperglycemia, with long-term current use of insulin (HCC)- Primary Hyperlipidemia associated with type 2 diabetes mellitus (HCC) Hypertension associated with diabetes (HCC) Unspecified essential hypertension Insulin pump in place Insulin pump status documented in this encounter Discontinued Medications Medication Sig Discontinue Reason Start Date End Da te semaglutide (Ozempic) 0.25 mg or 0.5 mg(2 mg/1.5 mL) pen injector injection INJECT 1/2 (ONE-HALF) MG SUBCUTANEOUSLY ONCE A WEEK 01/02/2023 semaglutide (Ozempic) 0.25 mg or 0.5 mg (2 mg/3 mL) pen injector injection INJECT 0.5MG SUBCUTANEOUSLY ONCE A WEEK, EVERY 7 DAYS 01/02/2023 tirzepatide (Mounjaro) 5 mg/0.5 mL pen injector INJECT 5 MG SUBCUTANEOUSLY ONCE A WEEK EVERY 7 DAYS Alternate therapy 12/20/2022 01/02/2023 insulin aspart (NovoLOG) 100 unit/mL (3 mL) pen for injection INJECT UP TO 44 UNITS 3 TIMES A DAY BEFORE MEALS Alternate therapy 01/02/2023 insulin aspart (NovoLOG) 100 unit/mL vial for injection USE UP TO 160 UNITS DAILY USING INSULIN PUMP Alternate therapy 01/02/2023 methylPREDNISolone (MEDROL) 4 mg tablet Therapy completed polyethylene glycol (GoLYTELY) 236-22.74-6.74 -5.86 gram solution Follow the instructions from Dr. Desai's office not the instructions on the bottle. Therapy completed 08/22/2022 01/02/2023 ketorolac (ACULAR LS) 0.4 % drops Administer 1 drop into both eyes 2 (two) times a day Therapy completed 01/02/2023 ziprasidone (GEODON) 20 mg capsule Take 1 capsule (20 mg total) by mouth 2 (two) times a day with meals Alternate therapy 07/25/2020 01/02/2023 documented as of this encounter Historical Medications * This list may reflect changes made after this encounter. Medication Sig Dispense Quantity Refills Last Filled Start D ate End Date Amzeeq 4 % foam qd 12/26/2022 added in this encounter Care Teams Transport Specialist Relationship Specialty Start Date End Date Deedee Low PA PCP - General 03/13/17 documented as of this encounter
--- OUTSIDE RECORDS SUMMARY | 2024-02-24 17:11 | XMS_ITS | Encounter Summary ---
Author Organization [facility] Address [address] [place] [address] Phone Care Team Providers Care Soil Engineer Name Role Phone Deedee Low Primary Care Pr ovider Encounter Details Date Type Department Care Team (Late st Contact Info) Description 12/19/2022 8:40 AM CDT Office Visit [facility] Gastroenterology [address] [facility] 12th [place] [address] [place] [address] Yancy Desai MD [address] [place] [address] Other irritable bowel syndrome (Primary Dx); Gastroesophageal reflux disease without esophagitis Social History Tobacco Use Types Packs/Day Years [...] on file 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 Gender Identity Female 09/21/2019 9:02 PM CDT Sexual Orientation Not on file 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 on file Not on file Not on file documented as of this encounter Last Filed Vital Signs Vital Sign Reading Time Taken Comments Blood Pressure 119/83 12/19/2022 9:04 AM CDT Pulse 170 12/19/2022 9:04 AM CDT Temperature 36.7 ??C (98 ??F) 12/19/2022 9:04 AM CDT Respiratory Rate - - Oxygen Saturation 81% 12/19/2022 9:04 AM CDT Inhaled Oxygen Concentration - - Weight 100.7 kg (222 lb) 12/19/2022 9:04 AM CDT Height 162.6 cm (5' 4 ) 12/19/2022 9:04 AM CDT Body Mass Index 38.11 12/19/2022 9:04 AM CDT documented in this encounter Patient Instructions * Patient Instructions* Jose Bergman LPN - 12/19/2022 8:40 AM CDT Follow up with Dr. Desai in 1 year Follow up with Valencia DOWELL in 6 months Motegrity 2mg daily- sent in to [facility]- samples of Linzess 145mcg daily sent home during clinic to use while getting motegrity Stop protonix and start aciphex 20mg twice daily- sent in to [facility] if not covered we can send to [facility] documented in this encounter Ordered Prescriptions Prescription Sig Dispense Quantity Refills Last Filled Start Date End Date linaCLOtide (LINZESS) 145 mcg capsule Take 1 capsule (145 mcg total) by mouth daily 16 capsule 12/19/2022 3 Arlene SIMMONS (ACIPHEX) 20 mg EC tabletIndications: Gastroesophageal reflux disease without esophagitis Take 1 tablet (20 mg total) by mouth 2 (two) times a day 60 tablet 2 12/19/2022 3 prucalopride (Motegrity) 2 mg tabletIndications: Other irritable bowel syndrome Take 1 tablet (2 mg total) by mouth daily 30 tablet 2 12/19/2022 3 documented in this encounter Progress Notes * Coty Galaviz PA - 12/19/2022 8:40 AM CDT Subjective NAME: Alannah Ruano : 1980 DOS: 12/19/2022 Referring Physician Consult requested by: Referral, Self Primary Care Physician: Deedee Low PA Chief Complaint: nausea, constipation, GERD HPI Alannah Ruano is a 42 y.o. female here for follow up in GI clinic. Her last visit with Dr Desai was 06/13/2022. Her PMH includes gastric sleeve 08/2020, DM2, HTN, HLD, MRSA skin infections on chronic doxy. Summary of GI history She has had GI symptoms since 2019, nausea, early satiety, bloating, constipation 04/2019 reports an abnl gastric emptying scan Started reglan, sxs improved Failed Miralax Started motegrity and PPI 08/2020 s/p gastric sleeve - GI sxs improved until late 2021 Late 2021- nausea returned, some vomiting, acid reflux, constipation and cramping 04/2022 MBS- negative 10/2022 EGD- LA grade A esophagitis, s/p sleeve gastrectomy , path showed minimal gastritis, H pylori negative 10/2022 Colonoscopy- 3mm polyp (TA) repeat in 7 years Currently, she is on linzess 72mcg, better but still some constipation. At times needs Miralax or ducolax but this can give her diarrhea at times. She has been on Motegrity in the past, helped but issues with insurance. Now has new ins. She is on pantoprazole 40mg BID and pepcid. She continues to have breakthrough acid reflux symptoms, usually mild but at times is severe waking her up at night with reflux. She has tried dietary changes, helps some but still breakthrough symptoms. No dysphagia. She continues to have nausea daily, takes zofran, takes this BID, helps with her nausea and vomiting. She has vomiting with certain foodslike rice. Some gas and bloating at times. Some rectal bleeding with constipation only. No melena. No weight change. She is now on mounjara,has been on GLP1 for 6 months. NO FH of colon cancer Past Medical History: Diagnosis Date Anxiety and depression Asthma Back pain Chronic constipation Cough Diarrhea Fatigue GERD (gastroesophageal reflux disease) Hypercholesterolemia Hypertension Migraines Muscle pain Numbness and tingling Pain with urination PONV (postoperative nausea and vomiting) Seizure ([facility]) TMJ dysfunction Type 2 diabetes mellitus ([facility]) Insulin pump Past Surgical History: Procedure Laterality Date ADENOIDECTOMY adenoidectomy COLONOSCOPY 2006 GASTRECTOMY ORAL SURGERY Oral Surgery SINUS SURGERY 2015 TONSILLECTOMY tonsillectomy Patient Active Problem List Diagnosis Type 2 diabetes mellitus with hyperglycemia, with long-term current use of insulin ([facility]) ([facility]) BMI 38.0-38.9,adult Hypertension associated with diabetes ([facility]) 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 Visual field constriction, bilateral Macular edema, diabetic ([facility]) Lumbar puncture headache Migraine Trigeminal neuralgia Recurrent boils Carpal tunnel syndrome Hypoglycemia due to type 1 diabetes mellitus (CMS/HCC) ([facility]) Physical deconditioning Hyperlipidemia associated with type 2 diabetes mellitus ([facility]) Insulin pump in place Abscess of buttock Abscess of vulva Asthma Chronic recurrent sinusitis Claustrophobia Conjunctivitis Cough Cyst of pineal gland Diarrhea Disorder of vision Dyslipidemia Foot joint pain Gastroesophageal reflux disease without esophagitis Generalized anxiety disorder Hematochezia Hemorrhoids Irregular periods Irritable bowel syndrome Keratosis pilaris Mental disorder Microalbuminuric diabetic nephropathy (CMS/HCC) (HCC) Mild anxiety Mild major depression ([facility]) Occult blood in stools Panic attack Posterior rhinorrhea Routine general medical examination at a health care facility Seasonal allergic rhinitis due to pollen Severe recurrent major depression without psychotic features ([facility]) Uncontrolled type 2 diabetes mellitus Vitamin D deficiency Morbid (severe) obesity due to excess calories ([facility]) Nausea and vomiting Nonsustained ventricular tachycardia (HCC) Current Outpatient Medications Medication Sig Dispense Refill albuterol 2.5 mg /3 mL (0.083 %) nebulizer solution albuterol sulfate 2.5 mg/3 mL (0.083 %) solution for nebulization PRN albuterol ER (VOSPIRE ER) 8 mg 12 hr tablet PATIENT TAKES 8.5 GM DAILY PRN atorvastatin (LIPITOR) 40 mg tablet 1 tablet (40 mg total) azelastine (ASTELIN) 137 mcg (0.1 %) nasal spray azelastine 137 mcg (0.1 %) nasal spray aerosol [place] 2 sprays every day by nasal route for 31 days. blood glucose diagnostic strip Use to check bg 7 times daily 500 each 1 blood-glucose meter [facility] [place] bg daily 1 each 0 blood-glucose sensor (Dexcom G6 Sensor) device USE DIRECTED CHANGE EVERY 10 DAYS 9 each 3 blood-glucose transmitter (Dexcom G6 Transmitter) device Change q 3 months 1 each 3 buPROPion (WELLBUTRIN) 100 mg [...] total) by mouth daily 90 tablet 3 diazePAM (VALIUM) 5 mg tablet Take 1 tablet (5 mg total) by mouth every 8 (eight) hours as needed diphenhydrAMINE (BENADRYL) 25 mg capsule Take 1 tablet/capsule (25 mg total) by mouth every 6 (six)hours as needed doxycycline 100 mg capsule Take 1 tablet/capsule (100 mg total) by mouth daily 90 tablet/capsule 3 EPINEPHrine 0.3 mg/0.3 mL auto-injection syringe Auvi-Q 0.3 mg/0.3 mL injection, auto-injector ADMINISTER 0.3 MG IN THE MUSCLE 1 TIME ergocalciferol (VITAMIN D) 50,000 unit capsule ergocalciferol (vitamin D2) 1,250 mcg (50,000 unit) capsule TAKE 1 CAPSULE BY MOUTH EVERY WEEK DIRECTED eszopiclone (LUNESTA) 1 mg tablet Take 1 tablet (1 mg total) by mouth daily fenofibrate (TRIGLIDE) 160 mg tablet Take 1 tablet (160 mg total) by mouth daily (Patient not taking: Reported on 08/29/2022) fexofenadine (OCHOA) 180 mg tablet TAKE 1 TABLET DAILY NEEDED. fluticasone propion-salmeteroL (ADVAIR DISKUS) 250-50 mcg/dose diskus inhaler Advair Diskus 250 mcg-50 mcg/dose powder for inhalation INHALE 1 PUFF BY MOUTH TWICE DAILY glucagon (Baqsimi) 3 mg/actuation spray,non-aerosol One spray into one nostril once as directed by provider for low blood sugar. 1 each 0 HYDROcodone-chlorpheniramine ER (TUSSIONEX PENNKINETIC) 2-1.6 mg/mL ER suspension TAKE 5 ML BY MOUTH EVERY 12 HOURS hydrOXYzine (ATARAX) 25 mg tablet Take 1 tablet (25 mg total) by mouth 1-2 nightly (Patient not taking: Reported on 08/29/2022) insulin lispro (HumaLOG) 100 unit/mL vial for injection Inject up to 100 units daily via insulin pump 90 mL 1 insulin pump cart,auto,BT-cntr (Omnipod 5 G6 Intro Kit, Gen 5,) cartridge Change pod q 3days 1 each0 insulin pump cart,automated,BT (Omnipod 5 G6 Pods, Gen 5,) cartridge Change pod q 3 days 30 each 3 insulin pump cart,cont inf,BT (Omnipod Dash Pods, Gen 4,) cartridge Change q 3 days 30 each 3 ketorolac (ACULAR LS) 0.4 % drops Administer 1 drop into both eyes 2 (two) times a day lamoTRIgine (LaMICtal) 100 mg tablet Take 1 tablet (100 mg total) by mouth daily Linzess 72 mcg capsule Take 1 capsule by mouth once daily 90 capsule 0 losartan (COZAAR) 50 mg tablet losartan 50 mg tablet TAKE 1 TABLET BY MOUTH EVERY DAY montelukast (SINGULAIR) 10 mg tablet olopatadine 0.6 % spray,non-aerosol olopatadine 0.6 % nasal spray ondansetron ODT (ZOFRAN-ODT) 4 mg disintegrating tablet Take 2 tablets (8 mg total) by mouth every 8 (eight) hours as needed for nausea or vomiting 20 tablet 6 OneTouch Delica Plus Lancet 33 gauge misc oxymetazoline (Rhofade) 1 % cream Rhofade 1 % topical cream pantoprazole DR (PROTONIX) 40 mg EC tablet Take 1 tablet (40 mg total) by mouth 2 (two) times a day pen needle, diabetic (BD Ultra-Fine Florina Pen Needle) 32 gauge x 5/32 needle USE DIRECTED up to 7 times daily 700 each 0 phentermine (ADIPEX-P) 37.5 mg tablet TAKE 1 TABLET BY MOUTH ONCE DAILY BEFORE BREAKFAST 30 tablet 0 polyethylene glycol (GoLYTELY) 236-22.74-6.74 -5.86 gram solution Follow the instructions from Dr. Desai's office not the instructions on the bottle. 4000 mL 0 propranoloL (INDERAL) 20 mg tablet Take 1 tablet (20 mg total) by mouth 2 (two) times a day rimegepant (NURTEC ODT) tablet,disintegrating Take 1 tablet (75 mg total) by mouth daily as needed tirzepatide (Mounjaro) 5 mg/0.5 mL pen injector Inject 5 mg under the skin every 7 days 2 mL 2 topiramate (TOPAMAX) 200 mg tablet 1 tablet (200 mg total) 2 (two) times a day traZODone (DESYREL) 50 mg tablet Take 1 tablet (50 mg total) by mouth nightly triamcinolone (KENALOG) 0.1 % ointment APPLY TOPICALLY TO THE AFFECTED AREA THREE TIMES DAILY (Patient not taking: Reported on 08/29/2022) ziprasidone (GEODON) 20 mg capsule Take 1 capsule (20 mg total) by mouth 2 (two) times a day with meals (Patient not taking: Reported on 08/29/2022) No current facility-administered medications for this visit. Mushroom, Nut flavor, Pecan nut, and Pneumovax-23 [...] or 2 Frequency of Binge Drinking: Never ROS As outlined in HPI. Vital Signs There were no vitals taken for this visit. Wt Readings from Last 6 Encounters: 11/01/22 97.5 kg (215 lb) 08/30/22 97.4 kg (214 lb 12.8 oz) 08/29/22 97.2 kg (214 lb 3.2 oz) 06/13/22 95.3 kg (210 lb) 05/31/22 97.7 kg (215 lb 6.4 oz) 05/03/22 96.2 kg (212 lb) Estimated body mass index is 36.9 kg/m?? as calculated from the following: Height as of 11/01/22: 162.6 cm (5' 4 ). Weight as of 11/01/22: 97.5 kg (215 lb). Physical Exam GENERAL: Well-appearing, in no acute distress. HEENT: Sclerae anicteric. LUNGS: Patient breathing comfortably. Lungs clear to auscultation bilaterally. CARDIOVASCULAR: Regular rate and rhythm with no murmur. ABDOMEN: soft, nontender, no masses EXTREMITIES: No clubbing, cyanosis or edema. SKIN: No rash or jaundice. NEUROLOGIC: Grossly nonfocal on simple observation with normal insight, memory, affect, and orientation. MENTAL STATUS/PSYCH: Alert and oriented. Answers questions appropriately with normal affect. Relevant Laboratories/Testing: Assessment/Plan: GERD persistent symptoms despite pantoprazole 40mg BID and famotidine. Discussed lifestyle management, no eating within 3 hours before bed, will switch to Aciphex BID. Will follow. Advised to make sure to take doxy with lots of water and stay upright at least 30 minutes Nausea/gastroparesis hx of abnl gastric emptying scan 2019, had gastric bypass in 2020. GI sxs improved initially after surgery then recurred late 2021. EGD showed signs of acid reflux. She is still having reflux and nausea. Takes zofran. Is also on GLP1s low dose, more for macular edema. Advised Gastroparesis diet. IBS-C was better on motegrity, but ins denied. Is on Linzess 72mcg, still some constiaption but better. Can try to increase to 145mcg a day, will give samples. Can see if motegrity is approved with her new insurance, which will likely help with her upper GI motility as well. Caution that zofran cancontribute to constipation as well. Discussed. Colon cancer screening last colonoscopy 10/2022, small polyp, repeat in 7 years I have asked her to return for a follow up visit in 6 months. DELMER Romero-C Physician Filing Or Registry Clerk for Yancy Desai MD Division of Gastroenterology [facility] No orders of the defined types were placed in this encounter. Cosigned by Yancy Desai MD at 12/26/2022 8:29 AM CDT Associated attestation - Yancy Desai MD - 12/26/2022 8:29 AM CDT I have seen and examined the patient. I agree with the findings and plan of care as documented in the note by DELMER Romero. documented in this encounter Plan of Treatment Not on file documented as of this encounter Visit Diagnoses Diagnosis Other irritable bowel syndrome- Primary Gastroesophageal reflux disease without esophagitis Esophageal reflux documented in this encounter Discontinued Medications Medication Sig Discontinue Reason Start Date End Da te pantoprazole DR (PROTONIX) 40 mg EC tablet Take 1 tablet (40 mg total) by mouth 2 (two) times a day Alternate therapy 12/19/2022 Linzess 72 mcg capsuleIndications:Other irritable bowel syndrome Take 1 capsule by mouth once daily Duplicate order 10/23/2022 12/19/2022 documented as of this encounter Historical Medications * This list may reflect changes made after this encounter. Medication Sig Dispense Quantity Refills Last Filled Start D ate End Date bevacizumab (AVASTIN) 25 mg/mL injection prn added in this encounter Additional Health Concerns Infection Onset Date Last Indicated Resolved Time COVID: Suspected 12/24/2022 12/24/202212/2412/24/2022 3:32 PM CDT COVID: Suspected 12/24/2022 12/24/2022 12/25/2022 12:54 AM CDT documented as of this encounter Care Teams Soil Engineer Relationship Specialty Start Date End Date Deedee Low PA PCP - General 03/13/17 documented as of this encounter
--- OUTSIDE RECORDS SUMMARY | 2024-02-24 17:11 | XMS_ITS | Encounter Summary ---
Author Organization [facility] Healthcare Address [address] [place] [address] Care Team Providers Care Collar Baster Jumpbasting Name Role Phone Deedee Low Primary Care Pr ovider Reason for Visit * Reason Onset Date Comments Prior Auth 04/03/2023 Dexcom Encounter Details Date Type Department Care Team ([facility] Contact Info) Description 04/03/2023 Telephone [facility] [address] [address] [place] S[place] [id number] [place] [id number] Prior Auth (Dexcom) Social History Tobacco Use Types Packs/Day Years Used Date Smoking Tobacco: Former Cigarettes Smokeless Tobacco: Never Comments:Randomly in late [employer] school Alcohol Use Standard Drinks/Week Comments [...] on file 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 Gender Identity Female 09/21/2019 9:02 PM CDT Sexual Orientation Not on file 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 Not on file Not on file documented as of this encounter Miscellaneous Notes * Telephone Encounter - Tania Lux MA - 04/03/2023 7:22 AM CST Prior auth for Dexcom supplies started on [employer] Dexcom G6 Transmitter Kaur: [id number] Dexcom G6 Sensor Kaur: [id number] Approval received for Dexcom G6 Transmitter through 04/03/24 Approval received for Dexcom G6 Sensor through 04/03/24 UCT TRAINER UCT TRAINER documented in this encounter Plan of Treatment Not on file documented as of this encounter Visit Diagnoses Not on filedocumented in this encounter Care Teams Collar Baster Jumpbasting Relationship Specialty Start Date End Date Deedee Low PA PCP - General 03/13/17 documented as of this encounter
--- OUTSIDE RECORDS SUMMARY | 2024-02-24 17:11 | XMS_ITS | Encounter Summary ---
Author Organization [facility] Healthcare Address [address] [place] [address] Care Team Providers Care Strap Buckler Machine Name Role Phone Deedee Low Primary Care Pr ovider Reason for Visit * Diagnostic Imaging (Routine) - Closed Specialty Diagnoses / Procedures Referred By Angelita silva Referred To Contact Diagnoses Right hand pain Procedures XR Hand Right 3+ Vw Angelita Schilling, SOPH[place] [address] [place] [address] Phone: tel: fax: [facility] Referral ID Status Reason Start Date Expiration Date Visits Re quested Visits Authorized [id number] Closed 04/19/2023 05/18/2024 1 1 Encounter Details Date Type Department Care Team (Latest Contact Info) Description 04/19/2023 8:50 AM WEDDING DESIGNER Ancillary Procedure [facility] Imaging at [address] [address] Right hand pain Social History Tobacco Use Types Packs/Day Years Used Date Smoking Tobacco: Former Cigarettes Smokeless Tobacco: Never Comments:Randomly in late [employer] school Alcohol Use Standard Drinks/Week Comments [...] on file Legal Sex Female 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 Gender Identity Female 09/21/2019 9:02 PM CDT Sexual Orientation Not on file 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 Not on file Not on file documented as of this encounter Plan of Treatment Not on file documented as of this encounter Procedures Procedure Name Priority Date/Time Associated Diagnosis Comments XR HAND RIGHT 3 OR MORE VIEWS Schedule JOHNANY, Read JOHANNY (Appt Today, Awaiting Results) 04/19/2023 8:59 AM WEDDING DESIGNER Right hand pain documented in this encounter Results * XR Hand Right 3+ Vw (04/19/2023 8:59 AM WEDDING DESIGNER) Anatomical Region Laterality Modality Upper Extremities, Hand Right Digital Radiography 04/19/2023 9:32 AM WEDDING DESIGNER Narrative 04/19/2023 9:33 AM WEDDING DESIGNER EXAM DESCRIPTION: ?? XR HAND RIGHT 3 [...] 9:33 AM - Electronically signed by ??Obi DENNIS D: ??04/19/2023 9:33 AM T: Report ID: [id number] Reading Location: ??[id number] Procedure Note Obi Aly MD - 04/19/2023 [...] Obi Aly M.D. RB T: Report ID: [id number] Reading Location: [place] [address] Angelita Schilling NP IMG XR PROCEDURES Final Result documented in this encounter Visit Diagnoses Diagnosis Right hand pain Pain in soft tissues of limb documented in this encounter Care Teams Strap Buckler Machine Relationship Specialty Start Date End Date Deedee Low PA PCP - General 03/13/17 documented as of this encounter
--- OUTSIDE RECORDS SUMMARY | 2024-02-24 17:11 | XMS_ITS | Encounter Summary ---
Author Organization [facility] Healthcare Address [address] [place] [address] Care Team Providers Care Assistant Sales Director Name Role Phone Deedee Low Primary Care Pr ovider Reason for Visit * Cardiology (Routine) - Closed Specialty Diagnoses / Procedures Referred By Contac t Referred To Contact Diagnoses Tachycardia, unspecified Procedures Stress Echo Exercise W Doppler/CF Cristhian Fernandez MD [address] [address] Phone: tel: fax: [facility] Referral ID Status Reason Start Date Expiration Date Visits Re quested Visits Authorized [id number] Closed 08/29/2022 09/28/2023 1 1 Encounter Details Date Type Department Care Team (Late st Contact Info) Description 12/20/2022 3:00 PM CDT Ancillary Procedure [facility] Cardiology [address] [place] [phone] Social History Tobacco Use Types Packs/Day Years [...] on file 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 Gender Identity Female 09/21/2019 9:02 PM CDT Sexual Orientation Not on file 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 file Not on file documented as of this encounter Last Filed Vital Signs Vital Sign Reading Time Taken Comments Blood Pressure 150/96 12/20/2022 3:41 PM CDT Pulse - - Temperature - - Respiratory Rate - - Oxygen Saturation - - Inhaled Oxygen Concentration - - Weight - - Height - - Body Mass Index - - documented in this encounter Plan of Treatment Not on file documented as of this encounter Procedures Procedure Name Priority Date/Time Associated Diagnosis Comments STRESS ECHO EXERCISE W DOPPLER/CF W CONTRAST Routine 12/20/2022 4:37 PM CDT Tachycardia, unspecified documented in this encounter Visit Diagnoses Not on filedocumented in this encounter Administered Medications Active Administered Medications - up to 3 most recent administrations Medication Order MAR Action Action Date Dose Rate Site perflutren lipid (DEFINITY) 1.5 mL in sodium chloride 0.9% 10 mL syringe 1-10 mL, intravenous, Once in imaging, contrast, Starting on Mariaelena 12/20/22 at 1531, For 1 dose, Intra-Procedure (CV) documented in this encounter Orders Medications Ordered That Jorje ht Not Have Been Administered Count Last Ordered Date First Ordered Date perflutren lipid (DEFINITY) 1.5 mL in sodium chloride 0.9% 10 mL syringe 1 12/20/2022 documented in this encounter Care Teams Assistant Sales Director Relationship Specialty Start Date End Date Deedee Low PA PCP - General 03/13/17 documented as of this encounter
--- OUTSIDE RECORDS SUMMARY | 2024-02-24 17:11 | XMS_ITS | Encounter Summary ---
Author Organization [facility] Healthcare Address [address] [place] [address] Care Team Providers Care Equipment Engineer Name Role Phone Deedee Low Primary Care Pr ovider Encounter Details Date Type Department Care Team (Latest Contact Info) Description 04/19/2023 8:55 AM AIRCRAFT ENGINE CYLINDER MECHANIC Ancillary Procedure [facility] Imaging at [address] [address] Right hand pain Social History Tobacco Use Types Packs/Day Years Used Date Smoking Tobacco: Former Cigarettes Smokeless Tobacco: Never Comments:Randomly in late [facility] [facility] school Alcohol Use Standard Drinks/Week Comments [...] on file Legal Sex Female 10:18 AM AIRCRAFT ENGINE CYLINDER MECHANIC Gender Identity Female 09/21/2019 9:02 PM CDT Sexual Orientation Not on file 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 Not on file Not on file documented as of this encounter Plan of Treatment Not on file documented as of this encounter Procedures Procedure Name Priority Date/Time Associated Diagnosis Comments XR WRIST RIGHT 3 OR MORE VIEWS Schedule JOHANNY, Read JOHANNY (Appt Today, Awaiting Results) 04/19/2023 8:58 AM AIRCRAFT ENGINE CYLINDER MECHANIC Right hand pain documented in this encounter Results * XR Wrist Right 3+ Vw (04/19/2023 8:58 AM AIRCRAFT ENGINE CYLINDER MECHANIC) Anatomical Region Laterality Modality Upper Extremities, Wrist Right Digital Radiography 04/19/2023 9:33 AM AIRCRAFT ENGINE CYLINDER MECHANIC Narrative 04/19/2023 9:34 AM AIRCRAFT ENGINE CYLINDER MECHANIC EXAM DESCRIPTION: ?? XR WRIST RIGHT 3 [...] D: ??04/19/2023 9:34 AM T: Report ID: [id number] Reading Location: ??[id number] Procedure Note Obi Aly MD - 04/19/2023 [...] 9:34 AM - Electronically signed by Obi Aly M.D. RB T: Report ID: [id number] Reading Location: [place] [address] Angelita Schilling NP IMG XR PROCEDURES Final Result documented in this encounter Visit Diagnoses Diagnosis Right hand pain Pain in soft tissues of limb documented in this encounter Care Teams Equipment Engineer Relationship Specialty Start Date End Date Deedee Low PA PCP - General 03/13/17 documented as of this encounter
--- OUTSIDE RECORDS SUMMARY | 2024-02-24 17:11 | XMS_ITS | Encounter Summary ---
Author Organization [facility] Address [address] [place] [address] Phone Care Team Providers Care Labor Economist Name Role Phone Deedee Low Primary Care Pr ovider Encounter Details Date Type Department Care Team (Latest Contact Info) Description 06/26/2023 3:00 PM CDT Office Visit [facility] Gastroenterology [address] [facility] [facility] 12th [place] [address] [place] [address] Coty Galaviz PA [address] [place] [address] Gastroesophageal reflux disease without esophagitis (Primary Dx); Other irritable bowel syndrome; Nausea and vomiting, unspecified vomiting type; Gastroparesis Social History Tobacco Use Types Packs/Day Years [...] 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 Gender Identity Female 09/21/2019 9:02 PM CDT Sexual Orientation Not on file 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 Not on file Not on file documented as of this encounter Last Filed Vital Signs Vital Sign Reading Time Taken Comments Blood Pressure 149/108 06/26/2023 2:55 PM CDT pt has migraine Pulse 76 06/26/2023 2:55 PM CDT Temperature 36.8 ??C (98.3 ??F) 06/26/2023 2 :55 PM CDT Respiratory Rate - - Oxygen Saturation - - Inhaled Oxygen Concentration - - Weight 97.8 kg (215 lb 9.6 oz) 06/26/2023 2:55 PM CDT Height 162.6 cm (5' 4.02 ) 06/26/2023 2 :55 PM CDT Body Mass Index 36.98 06/26/2023 2:55 PM CDT documented in this encounter Ordered Prescriptions Prescription Sig Dispense Quantity Refills Last Filled Start Date End Date prucalopride (MOTEGRITY) 2 mg tablet Take 1 tablet (2 mg total) by mouth daily 30 tablet 11 06/26/[address] (PROTONIX) 40 mg EC tablet Take 1 tablet (40 mg total) by mouth daily 60 tablet 11 06/26/2023 02/18/2024 documented in this encounter Progress Notes * Coty Galaviz PA - 06/26/2023 3:00 PM CDT Subjective NAME: Alannah Ruano : 1980 DOS: 06/26/2023 Referring Physician Consult requested by: No ref. provider found Primary Care Physician: Deedee Low PA Chief Complaint: nausea, constipation, GERD, gastroparesis HPI Alannah Ruano is a 43 y.o. female here for follow up in GI clinic. Her last visit with Dr Desai/myself was 12/19/2022. Her PMH includes gastric sleeve 08/2020, DM2, HTN, HLD, MRSA skin infectionson chronic doxy. Summary of GI history She [...] amitiza 02/2023 stopped mounjara and started ozempic Of note, on doxy chronically. Currently, she is taking Amitiza BID. She continues to have constipation. Goes days without a BM, with assocaiated cramping and bloating, then eventually diarrhea. No blood in her stool or melena. She is on Aciphex 20mg, continue to have reflux symptoms, she had better relief with the pantoprazole. She uses gavascon as needed. Still some early satiety, worse when she is constipated. No vomiting, no unexplained weight loss. She has macular edema, on a GLP1 for this. 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 Visual field constriction, bilateral Macular edema, diabetic ([facility]) Lumbar puncture headache Migraine Trigeminal neuralgia Recurrent boils Carpal tunnel syndrome Hypoglycemia due to type 1 diabetes mellitus ([facility]/HCC) ([facility]) Physical deconditioning Hyperlipidemia associated with type 2 diabetes mellitus ([facility]) Insulin pump in place Abscess of buttock Abscess of vulva Asthma Chronic recurrent sinusitis Claustrophobia Conjunctivitis Cough Cyst of pineal gland Diarrhea Disorder of vision Dyslipidemia Foot joint pain Gastroesophageal reflux disease without esophagitis Generalized anxiety disorder Hematochezia Hemorrhoids Irregular periods Irritable bowel syndrome Keratosis pilaris Mental disorder Microalbuminuric diabetic nephropathy (CMS/HCC) (HCC) Mild anxiety Mild major depression ([facility]) Occult blood in stools Panic attack Posterior rhinorrhea Routine general medical examination at a health care facility Seasonal allergic rhinitis due to pollen Severe recurrent major depression without psychotic features ([facility]) Uncontrolled type 2 diabetes mellitus Vitamin D deficiency Morbid (severe) obesity due to excess calories ([facility]) Nausea and vomiting Nonsustained ventricular tachycardia ([facility]) Cervical radiculopathy Lumbar radiculopathy Chronic migraine without aura COVID-19 Intermittent palpitations Spasmodic torticollis Tachycardia Wound dehiscence Current Outpatient Medications Medication Sig Dispense Refill albuterol 2.5 mg /3 mL (0.083 %) nebulizer solution albuterol sulfate 2.5 mg/3 mL (0.083 %) solution for nebulization PRN albuterol ER (VOSPIRE ER) 8 mg 12 hr tablet albuterol HFA (PROVENTIL HFA,VENTOLIN HFA,PROAIR HFA) 90 mcg/actuation inhaler Inhale 2 puffs every6 (six) hours as needed for wheezing Amzeeq 4 % foam atorvastatin (LIPITOR) 40 mg tablet 1 tablet (40 mg total) azelastine (ASTELIN) 137 mcg (0.1 %) nasal spray azelastine 137 mcg (0.1 %) nasal spray aerosol Thayer 2 sprays every day by nasal route for 31 days. bevacizumab (AVASTIN) 25 mg/mL injection blood glucose diagnostic strip Use to check bg 7 times daily 500 each 1 blood-glucose meter [facility] Check bg daily 1 each 0 blood-glucose sensor (Dexcom G6 Sensor) device USE DIRECTED CHANGE EVERY 10 DAYS 9 each 3 blood-glucose transmitter (Dexcom G6 Transmitter) device USE DIRECTED CHANGE EVERY 3 MONTHS 1 each 3 buPROPion (WELLBUTRIN) 100 mg tablet Take 1 tablet (100 mg total) by mouth 2 (two) times a day carBAMazepine (TEGretol) 200 mg tablet Take 0.5 tablets (100 mg total) by mouth 3 (three) times a day cephalexin (KEFLEX) 500 mg capsule Take 1 capsule (500 mg total) by mouth 4 (four) times a day for 7 days 28 capsule 0 cetirizine (ZyrTEC) 10 mg tablet Take [...] mouth daily fexofenadine (OCHOA) 180 mg tablet fluticasone propion-salmeteroL (ADVAIR DISKUS) 250-50 mcg/dose diskus inhaler Advair Diskus 250 mcg-50 mcg/dose powder for inhalation INHALE 1 PUFF BY MOUTH TWICE DAILY glucagon (Baqsimi) 3 mg/actuation spray,non-aerosol One spray into one nostril once as directed by provider for low blood sugar. 1 each 0 hydroCHLOROthiazide (MICROZIDE) 12.5 mg capsule Take 1 capsule (12.5 mg total) by mouth daily 90 capsule 1 hydrOXYzine (ATARAX) 25 mg tablet Take 1 tablet (25 mg total) by mouth 1-2 nightly insulin lispro (HumaLOG) 100 unit/mL vial for injection Inject up to 100 units daily via insulin pump 90 mL 1 insulin pump cart,auto,BT-cntr (Omnipod 5 G6 Intro Kit, Gen 5,) cartridge Change pod q 3days 1 each0 insulin pump cart,automated,BT (Omnipod 5 G6 Pods, Gen 5,) cartridge Change pod q 3 days 30 each 3 lamoTRIgine (LaMICtal) 100 mg tablet Take 1 tablet (100 mg total) by mouth daily losartan (COZAAR) 100 mg tablet Take 1 tablet (100 mg total) by mouth daily lubiprostone (AMITIZA) 8 mcg capsule Take 1 capsule (8 mcg total) by mouth 2 (two) times a day withmeals 60 capsule 2 montelukast (SINGULAIR) 10 mg tablet mupirocin (BACTROBAN) 2 % ointment Apply topically 3 (three) times a day 22 g 1 olopatadine 0.6 % spray,non-aerosol olopatadine 0.6 % nasal spray ondansetron ODT (ZOFRAN-ODT) 4 mg disintegrating tablet DISSOLVE 2 TABLETS IN MOUTH EVERY 8 HOURS NEEDED FOR NAUSEA AND FOR VOMITING 20 tablet 0 OneTouch Delica Plus Lancet 33 gauge misc oxymetazoline (Rhofade) 1 % cream Rhofade 1 % topical cream pen needle, diabetic (BD Ultra-Fine Florina Pen Needle) 32 gauge x 5/32 needle USE DIRECTED up to 7 times daily 700 each 0 phentermine (ADIPEX-P) 37.5 mg tablet TAKE 1 TABLET BY MOUTH ONCE DAILY BEFORE BREAKFAST 90 tablet 2 propranoloL (INDERAL) 20 mg tablet Take 1 tablet (20 mg total) by mouth 2 (two) times a day RABEprazole DR (ACIPHEX) 20 mg EC tablet Take 1 tablet (20 mg total) by mouth 2 (two) times a day 60 tablet 2 rimegepant (NURTEC ODT) tablet,disintegrating Take 1 tablet (75 mg total) by mouth daily as needed semaglutide (OZEMPIC) 1 mg/dose (4 mg/3 mL) pen injector injection Inject 1 mg under the skin every7 days 9 mL 3 Soolantra 1 % cream APPLY A PEA SIZED AMOUNT TO RED AREAS ON THE FACE EVERY NIGHT AT BEDTIME topiramate (TOPAMAX) 200 mg tablet 1 tablet (200 mg total) 2 (two) times a day traZODone (DESYREL) 50 mg tablet Take 1 tablet (50 mg total) by mouth nightly triamcinolone (KENALOG) 0.1 % ointment ubrogepant (UBRELVY) 100 mg tablet Take 1 tablet (100 mg total) by mouth 2 (two) times a day as needed No current facility-administered medications for this visit. [...] visit. Wt Readings from Last 6 Encounters: 06/20/23 96.6 kg (213 lb) 05/09/23 97 kg (213 lb 12.8 oz) 05/02/23 95.7 kg (211 lb) 04/19/23 93 kg (205 lb) 03/21/23 93 kg (205 lb) 02/27/23 93.9 kg (207 lb 1.6 oz) Estimated body mass index is 36.54 kg/m?? as calculated from the following: Height as of 05/09/23: 162.6 cm (5' 4.02 ). Weight as of 06/20/23: 96.6 kg (213 lb). Physical Exam GENERAL: Well-appearing, in no acute distress. HEENT: Sclerae anicteric. LUNGS: Patient breathing comfortably. Lungs clear to auscultation bilaterally. CARDIOVASCULAR: Regular rate and rhythm with no murmur. ABDOMEN: soft, distended, mild left sided tenderness, no masses EXTREMITIES: No clubbing, cyanosis or edema. SKIN: No rash or jaundice. NEUROLOGIC: Grossly nonfocal on simple observation with normal insight, memory, affect, and orientation. MENTAL STATUS/PSYCH: Alert and oriented. Answers questions appropriately with normal affect. Assessment/Plan: GERD persistent symptoms despite Aciphex, she reports better control of her reflux with pantoprazole 40mg BID and famotidine. Will switch back to pantoprazole. Continue lifestyle management, no eating within 3 hours before bed. Advised to make sure to take doxy with lots of water and stay upright at least 30 minutes Nausea/gastroparesis hx of abnl gastric emptying scan 2019, had gastric bypass in 2020. GI sxs improved initially after surgery then recurred late 2021. EGD as above, continue PPI. She is on low doseOzempic more for macular edema. Advised continue Gastroparesis diet, low fat, small meals. Will seeif prucalopride/Motegrity is approved. IBS-C was better on motegrity, but ins denied. Failed Linzess 72 and 145mcg, Failed Amitiza. Will try to get Motegrity covered which was very helpful for her. Colon cancer screening last colonoscopy 10/2022, small polyp, repeat in 7 years Follow up in [address] Desai was planned, follow up with me in 1 year DELMER Romero-Arnol Physician Testing Lead for Yancy Desai MD Division of Gastroenterology [facility] [employer] [facility] No orders of the defined types were placed in this encounter. documented in this encounter Plan of Treatment Not on file documented as of this encounter Visit Diagnoses Diagnosis Gastroesophageal reflux disease without esophagitis- Primary Esophageal reflux Other irritable bowel syndrome Nausea and vomiting, unspecified vomiting type Gastroparesis documented in this encounter Discontinued Medications Medication Sig Discontinue Reason Start Date End Da te RABEprazole DR (ACIPHEX) 20 mg EC tabletIndications:Gastro esophageal reflux disease without esophagitis Take 1 tablet (20 mg total) by mouth 2 (two) times a day 01/25/2023 06/26/2023 lubiprostone (AMITIZA) 8 mcg capsuleIndications:Other irritable bowel syndrome Take 1 capsule (8 mcg total) by mouth 2 (two) times a day with meals 01/04/2023 06/26/2023 documented as of this encounter Care Teams Labor Economist Relationship Specialty Start Date End Date Deedee Low PA PCP - General 03/13/17 documented as of this encounter
--- OUTSIDE RECORDS SUMMARY | 2024-02-24 17:11 | XMS_ITS | Encounter Summary ---
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 Gender Identity Female 09/21/2019 9:02 PM CDT Sexual Orientation Not on file 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
--- OUTSIDE RECORDS SUMMARY | 2024-02-24 17:11 | XMS_ITS | Encounter Summary ---
Author Organization [facility] Healthcare Address [address] [place] [address] Care Team Providers Care Shellfish Processing Laborer Name Role Phone Deedee Low Primary Care Pr ovider Reason for Visit * Reason Comments Type 2 diabetes mellitus with hyperglyce farida, with long-term Encounter Details Date Type Department Care Team (Late Contact Info) Description 09/05/2023 1:15 PM CDT Office Visit [facility] Medical Group Diabetes and Endocrinology [address] [place] [phone] [place] [id number] [address] Type 2 diabetes mellitus with hyperglycemia, with long-term current use of insulin (HCC) (Primary Dx) Social History Tobacco Use [...] on file 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 Female 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 Gender Identity Female 09/21/2019 9:02 PM CDT Sexual Orientation Not on file 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 Not on file Not on file documented as of this encounter Last Filed Vital Signs Vital Sign Reading Time Taken Comments Blood Pressure 112/70 09/05/2023 1:36 PM CDT Pulse 86 09/05/2023 1:36 PM CDT Temperature - - Respiratory Rate 16 09/05/2023 1:36 PM CDT Oxygen Saturation - - Inhaled Oxygen Concentration - - Weight 99.2 kg (218 lb 11.2 oz) 09/05/2023 1:36 PM CDT Height 162.6 cm (5' 4 ) 09/05/2023 1:36 PM CDT Body Mass Index 37.54 09/05/2023 1:36 PM CDT documented in this encounter Patient Instructions * Patient Instructions* Kurt Saini MD - 09/05/2023 1:15 PM CDT Increase Ozempic to 2 mg weekly If you start having lower sugars, lower your basal rates, probably 20 % Jardiance can cause DKA; in case of abdominal pain, nausea or vomiting Check ketones in the urine ; if they are positive you need to go to the ER documented in this encounter Ordered Prescriptions Prescription Sig Dispense Quantity Refills Last Filled Start Date End Date acetone, urine, test strip Test if BG are high, or in case of abdominal pain / nausea, vomiting, suspected DKA 20 strip 3 09/05/2023 semaglutide (OZEMPIC) 2 mg/dose (8 mg/3 mL) pen injector injection Inject 2 mg under the skin every 7 days 9 mL 3 09/05/2023 documented in this encounter Progress Notes * Kurt Saini MD - 09/05/2023 1:15 PM CDT Images from the original note were not included. Subjective/Objective Patient ID: Alannah Ruano is a 43 y.o. female who comes for follow up on her Type 2 diabetes mellitus with hyperglycemia, with long-term HPI DM Follow up. Diabetes complications and/or comorbidity includes: Obesity, migraine Hba1c: Lab Results Component Value Date HGBA1C 5.8 09/05/2023 HGBA1C 5.6 05/09/2023 HGBA1C 5.4 01/02/2023 Current DM medications: Jardiance 25 mg Ozempic 1 mg weekly Novolog via Omnipod 5 insulin pump - switched since last visit. Basal 12a 0.8, 12p 1.1 IC 8 SF 25 T 110, correct above 150 AIT 5 hrs Changes, since last OV: non changes BG monitoring : [facility]EX[facility] CGM data from [facility] analyzed and interpreted , as follows :very even Hypoglycemic events : minimal Physical activity routine , changes since last OV: limited by back pain Dietary habits , changes since last OV: trying to work on small portions, watchRheonix Lipid profile within the last year: 09/24/2022: Cholesterol 169; HDL 41; LDL, calculated 100; Triglycerides 139 08/29/2022: Cholesterol, POC 150; HDL, POC 33; LDL, Direct, POC 78; Non-HDL Cholesterol, POC 118; Triglycerides, POC 197 Statin therapy: Atorvastatin Renal: currently on MITESH-I / ARB???s with: Losartan Microalbumin: Lab Results Component Value Date ALBCREATRATU 14 09/24/2022 Lab Results Component Value Date MALBCRTRAT 173 (H) 12/07/2019 GFR: No results found for: EGFR Lab Results Component Value Date GFRNAA 115 09/24/2022 Date of last eye examination: 12/2022 ( will try to get report ) ASSESSMENT AND PLAN Diagnoses and all orders for this visit: Type 2 diabetes mellitus with hyperglycemia, with long-term current use of insulin (HCC) (E11.65, Z79.4) (Primary) Assessment & Plan: Chronic, stable Increae Ozempic to 2 mg wkly In BG start dropping, pt to adjust basal by lowering it 20 % Continue Jardiance, Risk of DKA discussed Pt to check ketones, in case of abdominal pain, n /v Continue pump at current settings. Orders: - POCT glucose - POCT hemoglobin A1c Other orders - semaglutide (OZEMPIC) 2 mg/dose (8 mg/3 mL) pen injector injection; Inject 2 mg under the skin every 7 days - acetone, urine, test strip; Test if BG are high, or in case of abdominal pain / nausea, vomiting,suspected DKA Kurt Saini MD documented in this encounter Procedure Notes * Kurt Saini MD - 09/05/2023 1:15 PM CDT Procedures CGM data was downloaded , scanned ( under [employer] Folder ) , analyzed and interpreted . documented in this encounter Miscellaneous Notes * Assessment & Plan Note - Kurt Saini MD - 09/05/2023 2:02 PM CDTAssociated Problem(s): Type 2 diabetes mellitus with hyperglycemia, with long-term current use of insulin (HCC) Chronic, stable Increae Ozempic to 2 mg wkly In BG start dropping, pt to adjust basal by lowering it 20 % Continue Jardiance, Risk of DKA discussed Pt to check ketones, in case of abdominal pain, n /v Continue pump at current settings. documented in this encounter Plan of Treatment Not on file documented as of this encounter Procedures Procedure Name Priority Date/Time Associated Diagnosis Comments POCT HEMOGLOBIN A1C Routine 09/05/2023 1 :34 PM CDT Type 2 diabetes mellitus with hyperglycemia, with long-term current use of insulin (HCC) POCT GLUCOSE Routine 09/05/2023 1:34 PM CDT Type 2 diabetes mellitus with hyperglycemia, with long-term current use of insulin (HCC) documented in this encounter Results * (ABNORMAL) POCT hemoglobin A1c (09/05/2023 1:34 PM CDT) Hemoglobin A1C, POC 5.8 % Comment:None Capillary blood 09/05/2023 1 :34 PM CDT us Kurt Saini MD POINT OF CARE TEST ORDERABLES Fi nal Result * (ABNORMAL) POCT glucose (09/05/2023 1:34 PM CDT) Glucose Blood, POC 172 mg/dL Comment:None Blood 09/05/2023 1:34 PM CDT us Kurt Saini MD POINT OF CARE TEST ORDERABLES Fi nal Result documented in this encounter Visit Diagnoses Diagnosis Type 2 diabetes mellitus with hyperglycemia, with long-term current use of insulin (HCC)- Primary documented in this encounter Discontinued Medications Medication Sig Discontinue Reason Start Date End Da te ubrogepant (UBRELVY) 100 mg tablet Take 1 tablet (100 mg total) by mouth 2 (two) times a day as needed Patient Discharge 03/12/2023 09/05/2023 semaglutide (OZEMPIC) 1 mg/dose (4 mg/3 mL) pen injector injection Inject 1 mg under the skin every 7 days 01/02/2023 09/05/2023 documented as of this encounter Historical Medications * This list may reflect changes made after this encounter. topiramate (TOPAMAX) 200 mg tablet daily ketorolac (TORADOL) 10 mg tablet Take 1 tablet (10 mg total) by mouth every 6 (six) hours as needed 06/03/2023 ketorolac (TORADOL) 10 mg tablet 06/03/2023 linaCLOtide (Linzess) 72 mcg capsule daily albuterol HFA (ProAir HFA) 90 mcg/actuation inhaler ketorolac (TORADOL) 10 mg tablet 06/10/2023 02/12/[address] (ACIPHEX) 20 mg EC tablet Take 1 tablet (20 mg total) by mouth 2 (two) times a day 02/18/2024 added in this encounter Care Teams Shellfish Processing Laborer Relationship Specialty Start Date End Date Deedee Low PA PCP - General 03/13/17 documented as of this encounter
--- OUTSIDE RECORDS SUMMARY | 2024-02-24 17:12 | XMS_ITS | Encounter Summary ---
Author Organization [facility] Address [address] [place] [address] Phone Care Team Providers Care Founder And President Name Role Phone Deedee Low Primary Care Pr ovider Encounter Details Date Type Department Care Team (Late st Contact Info) Description 08/22/2022 Orders Only [facility] Gastroenterology [address] [facility] 12th [place] [address] [place] [phone] Yancy Desai MD [address] [place] [address] Other irritable bowel syndrome (Primary Dx); Nausea and vomiting, unspecified vomiting type; Gastroesophageal reflux disease without esophagitis; Diarrhea, unspecified type; Hematochezia Social History Tobacco Use Types Packs/Day Years [...] on file 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 Desai's office not the instructions on the bottle. 4000 mL 08/22/2022 3 documented in this encounter Plan of Treatment Not on file documented as of this encounter Visit Diagnoses Diagnosis Other irritable bowel syndrome- Primary Nausea and vomiting, unspecified vomiting type Gastroesophageal reflux disease without esophagitis Esophageal reflux Diarrhea, unspecified type Hematochezia Blood in stool documented in this encounter Orders Case Request Count Last Ordered Date First Orde red Date CASE REQUEST GI 1 08/22/2022 documented in this encounter Care Teams Founder And President Relationship Specialty Start Date End Date Deedee Low PA PCP - General 03/13/17 documented as of this encounter
--- OUTSIDE RECORDS SUMMARY | 2024-02-24 17:12 | XMS_ITS | Encounter Summary ---
Author Organization [facility] Address [address] [place] [address] Phone Care Team Providers Care Technical Solutions Consultant Name Role Phone Deedee Low Primary Care Pr ovider Encounter Details Date Type Department Care Team (Late st Contact Info) Description 08/22/2022 Orders Only [facility] Gastroenterology [address] 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 Not on file Not on file documented as of this encounter Ordered Prescriptions Prescription Sig Dispense Quantity Refills Last Filled Start Date End Date linaCLOtide (Linzess) 72 mcg capsuleIndications :Other irritable bowel syndrome Take 1 capsule (72 mcg total) by mouth daily 90 capsule 08/22/2022 documented in this encounter Plan of Treatment Not on file documented as of this encounter Visit Diagnoses Diagnosis Other irritable bowel syndrome- Primary documented in this encounter Discontinued Medications Medication Sig Discontinue Reason Start Date End Da te lubiprostone (AMITIZA) 8 mcg capsuleIndications:Other irritable bowel syndrome Take 1 capsule (8 mcg total) by mouth 2 (two) times a day with meals Take with meals 06/19/2022 08/22/2022 documented as of this encounter Care Teams Technical Solutions Consultant Relationship Specialty Start Date End Date Deedee Low PA PCP - General 03/13/17 documented as of this encounter
--- OUTSIDE RECORDS SUMMARY | 2024-02-24 17:12 | XMS_ITS | Encounter Summary ---
Author Organization [facility] Address [address] [place] [address] Care Team Providers Care Engraver Machine Name Role Phone Deedee Low Primary Care Pr ovider Reason for Visit * Reason Comments QUALITY ASSURANCE REPRESENTATIVE Initial Evaluation [facility] * Diagnostic Imaging (Routine) - Closed Specialty Diagnoses / Procedures Referred By Angelita t Referred To Contact Diagnoses Dysphagia, oropharyngeal phase Procedures FL Modified Barium Swallow W Video Romie Shields MD [address] [address] Phone: tel: fax: [address] [address] Referral ID Status Reason Start Date Expiration Date Visits Re quested Visits Authorized [id number] Closed 03/22/2022 04/21/2023 1 1 Encounter Details Date Type Department Care Team (Late st Contact Info) Description 05/03/2022 10:30 AM ENGINEERING TECHNICAL WRITER Therapy [facility] [address] [place] [phone] Dysphagia, unspecified type (Primary Dx); Cough, unspecified type Social History Tobacco Use Types [...] on file Legal Sex Female 10:18 AM ENGINEERING TECHNICAL WRITER Gender Identity Female 09/21/2019 9:02 PM CDT Sexual Orientation Not on file 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 chicken and grapes) get stuck in the back of the throat, pills are the main issue (takes several at a time) and feels them get stuck in her throat or mid esophagus; regurgitation PMH: HTN, hyperlipidemia, DMT2, GERD, IBS, generalized anxiety disorder, depression, trigeminal neuralgia, gastric sleeve 08/29, gastroparesis Date of onset: few months Current diet level: PO regular RECOMMENDATIONS Clinical Impression: WFL. Patient felt pill sticking in the mid esophagus, but when fluoro was turned back on it was not visualized. Recommend further esophageal workup related to reflux and symptoms of food/pills sticking in the mid-chest Diet Recommendations: Continue regular PO diet as tolerated. Successful modifications: n/a Unsuccessful modifications: n/a Patient Education: Pt educated on findings and recommendations based on MBS findings today. Oral Mechanism Exam: Oral tongue protrudes to midline. Oral tongue ROM, strength, and sensation areWNL. Soft palate elevates to midline. There is brisk, symmetrical contraction of the LPWs. Voice, resonance and articulation are WNL. Consistencies Administered: Thin liquid, puree, solid, barium pill Purpose and Procedure of Modified Barium Swallow Study: Modified Barium Swallow Study completed to assess oropharyngeal swallow function and safety/efficiency of the swallow so that diet recommendations can be made. This test is completed in conjunction with Radiology. Results of this test are indicative of performance at the time of the exam. Standard procedure is in lateral view at 90 degrees and AP view. MBSImp Scoring: Oral Impairment Domain: 1. Lip Closure (scale 0-4) 0 = No labial escape 2. Tongue Control During Bolus Hold (scale 0-3) 0 = Cohesive bolus between tongue to palatal seal 3. Bolus Preparation/Mastication (scale 0-3) 0 = Timely and efficient chewing and mashing 4. Bolus Transport/Lingual Motion (scale 0-4) 0 = Brisk tongue motion 5. Oral Residue (scale 0-4) 0 = Complete oral clearance Location: A = Floor of Mouth; B = Palate; C = Tongue; D = Lateral Sulci 6. Initiation of the Pharyngeal Swallow (scale 0-4) 0 = Bolus head at posterior angle of ramus (first hyoid excursion) Pharyngeal Impairment Domain: 7. Soft Palate Elevation (scale 0-4) 0 = No bolus between soft palate (SP)/pharyngeal wall (PW) 8. Laryngeal Elevation (scale 0-3) 0 = Complete superior movement of thyroid cartilage with complete approximation of arytenoids to epiglottic petiole 9. Anterior Hyoid Excursion (scale 0-2) 0 = Complete anterior movement 10. Epiglottic Movement (scale 0-2) 0 = Complete inversion 11. Laryngeal Vestibular Closure (scale 0-2) 0 = Complete; no air/contrast in laryngeal vestibule 12. Pharyngeal Stripping Wave (scale 0-2) 0 = Present - complete 13. Pharyngeal Contraction (scale 0-3) 0 = Complete 14. Pharyngoesophageal Segment Opening (scale 0-3) 0 = Complete distension and complete duration; no obstruction of flow 15. Tongue Base Retraction (scale 0-4) 0 = No contrast between TB and posterior pharyngeal wall (PW) 16. Pharyngeal Residue (scale 0-4) 0 = Complete pharyngeal clearance Location: A = Tongue Base; B = Valleculae; C = Pharyngeal wall; D = Aryepiglottic folds; E = Pyriform sinuses; F = Diffuse (>3 areas) Esophageal Impairment Domain: 17. Esophageal Clearance (upright position)/ (scale 0-4) 0 = Complete clearance; esophageal coating Thin Liquids: PAS score 1 Purees: PAS score 1 Solids: PAS score 1 Penetration Aspiration Scale 1- Material does not enter the airway 2- Material enters the airway, remains above the vocal folds, and is ejected from the airway 3- Material enters the airway, remains above the vocal folds, and is not ejected from the airway 4- Material enters the airway, contacts the vocal folds, and is ejected from the airway 5- Material enters the airway, contacts the vocal folds, and is not ejected from the airway 6- Material enters the airway, drops below the level of the vocal folds, and is ejected from the airway 7- Material enters the airway, drops below the level of the vocal folds, and is not ejected from the airway 8- Material enters the airway, drops below the level of the vocal folds, is not ejected from the airway, and there is no response to aspiration NOMS: Level 7: The individual's ability to eat independently is not limited by swallow function. Swallowing would be safe and efficient for all consistencies. Compensatory strategies are effectively used when needed. Start Time: 1050 Stop Time: 1115 NEERING TECHNICAL WRITER documented in this encounter Plan of Treatment Not on file documented as of this encounter Visit Diagnoses Diagnosis Dysphagia, unspecified type- Primary Cough, unspecified type documented in this encounter Care Teams Engraver Machine Relationship Specialty Start Date End Date Deedee Low PA PCP - General 03/13/17 documented as of this encounter
--- OUTSIDE RECORDS SUMMARY | 2024-02-24 17:12 | XMS_ITS | Encounter Summary ---
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 LINE OPERATOR Gender Identity Female 09/21/2019 9:02 PM CDT Sexual Orientation Not on file 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 Not on file Not on file documented as of this encounter Plan of Treatment Not on file documented as of this encounter Procedures Procedure Name Priority Date/Time Associated Diagnosis Comments DIABETES EYE EXAM Routine 07/19/2022 8:49 AM CDT documented in this encounter Results * (ABNORMAL) DIABETES EYE EXAM (07/19/2022 8:49 AM CDT) Historical Provider HEALTH MAINTENANCE Edited Result - Final documented in this encounter Visit Diagnoses Not on filedocumented in this encounter Care Teams B2B Sales Executive Relationship Specialty Start Date End Date Deedee Low PA PCP - General 03/13/17 documented as of this encounter
--- OUTSIDE RECORDS SUMMARY | 2024-02-24 17:12 | XMS_ITS | Encounter Summary ---
Author Organization [facility] Address [address] [place] [address] Phone Care Team Providers Care Painting Supervisor Name Role Phone Jennifermary Deedee DOWELL Primary Care Pr ovider Encounter Details Date Type Department Care Team (Late st Contact Info) Description 06/13/2022 Documentation [facility] [address] [facility] 12th [place] [address] [place] [id number] Rosa Ortiz Social History Tobacco Use Types [...] on file Legal Sex Female 10:[address]OR Gender Identity Female 09/21/2019 9:02 PM CDT Sexual Orientation Not on file 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
--- OUTSIDE RECORDS SUMMARY | 2024-02-24 17:12 | XMS_ITS | Encounter Summary ---
Author Organization [facility] Address [address] [facility] [address] [place] [address] Care Team Providers Care Care Transition Manager Name Role Phone Deedee Low Primary Care Pr ovider Encounter Details Date Type Department Care Team (Late st Contact Info) Description 07/13/2022 Telephone [facility] Cardiology [address] [facility] [address] [place] [address] Linda Lipscomb Social History Tobacco Use Types Packs/Day Years [...] on file Legal Sex Female 10:18 AM BINDER ROLLER Gender Identity Female 09/21/2019 9:02 PM CDT Sexual Orientation Not on file 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 documented in this encounter Plan of Treatment Not on file documented as of this encounter Visit Diagnoses Not on filedocumented in this encounter Care Teams Care Transition Manager Relationship Specialty Start Date End Date Deedee Low PA PCP - General 03/13/17 documented as of this encounter
--- OUTSIDE RECORDS SUMMARY | 2024-02-24 17:12 | XMS_ITS | Encounter Summary ---
Author Organization [facility] Healthcare Address [address] [place] [address] Care Team Providers Care Hot Metal Crane Operator Name Role Phone Deedee Low Primary Care Pr ovider Encounter Details Date Type Department Care Team (Latest Contact Info) Description 09/24/2022 8:39 AM CDT - 09/24/2022 11:59 PM CDT Hospital Encounter [facility] [address] [place] [address] Other irritable bowel syndrome; Gastroesophageal reflux disease without esophagitis; Nausea and vomiting, unspecified vomiting type; Type 2 diabetes mellitus with hyperglycemia, with long-term current use of insulin ([facility] ([facility]) Discharge Disposition: Discharge to home or self [...] on file Legal Sex Female 10:18 AM PUFF IRON OPERATOR Gender Identity Female 09/21/2019 9:02 PM CDT Sexual Orientation Not on file 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 blood glucose diagnostic stripIndications:Ty pe 2 diabetes mellitus with hyperglycemia, with long-term current use of insulin ([facility]) Use to check bg 7 times daily 500 each 1 0 blood-glucose meter miscIndications:Typ e 2 diabetes mellitus with hyperglycemia, with long-term current use of insulin ([facility]) Check bg daily 1 each 0 buPROPion [...] or vomiting 20 tablet 6 3 01/18/[address] (PROTONIX) 40 mg EC tablet [...] Procedure Name Priority Date/Time Associated Diagnosis Comments EGFR Routine 09/24/2022 8:39 AM CDT Type 2 diabetes mellitus with hyperglycemia, with long-term current use of insulin ([facility]) ([facility]) DIFFERENTIAL AUTO Routine 09/24/2022 8:3 9 AM CDT Other irritable bowel syndrome Gastroesophageal reflux disease without esophagitis Nausea and vomiting, unspecified vomiting type CBC WITH AUTO DIFFERENTIAL Routine 09/24/2022 8:39 AM CDT Other irritable bowel syndrome Gastroesophageal reflux disease without esophagitis Nausea and vomiting, unspecified vomiting type ALBUMIN CREATININE RATIO, URINE Routine 09/24/2022 8:39 AM CDT Type 2 diabetes mellitus with hyperglycemia, with long-term current use of insulin ([facility]) (HCC) TSH Routine 09/24/2022 8:39 AM CDT Type 2 diabetes mellitus with hyperglycemia, with long-term current use of insulin (CMS/HCC) (HCC) LIPID PANEL Routine 09/24/2022 8:39 AM CDT Type 2 diabetes mellitus with hyperglycemia, with long-term current use of insulin (CMS/HCC) (HCC) COMPREHENSIVE METABOLIC PANEL Routine 09/24/2022 8:39 AM CDT Type 2 diabetes mellitus with hyperglycemia, with long-term current use of insulin (CMS/HCC) ([facility]) documented in this encounter Results * eGFR (09/24/2022 8:39 AM CDT) [facility] eGFR 115 mL/min/1. 73 m2 AILEEN ZHAO Comment: Interpretive Data Reference Interval Normal ?>/= 90 mL/min/1.73m2 Mildly decreased* ? 60 - 89 mL/min/1.73m2 Mildly to moderately decreased ?45 - 59 mL/min/1.73m2 Moderately to severely decreased ??30 - 44 mL/min/1.73m2 Severely decreased ?15 - 29 mL/min/1.73m2 Kidney Failure ?< 15 ??mL/min/1.73m2 *Relative to young adult level Estimated glomerular filtration rate is determined by the 2020 CKD-EPI equation recommended by the National Kidney Foundation (A Unifying Approach to GFR Estimation: Recommendations of the NKF-ASK Task Force on Reassessing the Inclusion of Race in Diagnosing Kidney Disease, JASN 2020). The CKD-EPI equation should not be used for patients with unstable renal function and has not been validated in children and those over 70. Current interpretive data was last reviewed 2021. Blood 09/24/2022 8:39 AM CDT 09/24/2022 3:21 PM CDT Deedee DOWELL LAB BLOOD ORDERABLES Fi nal Result [facility] [address] Department [place] [address] * Differential, auto (09/24/2022 8:39 AM CDT) Neutrophil abs 4.7 1.7 - 6.5 K/cumm [facility] Imm gran abs 0.0 0.0 - 0.1 K/cumm [facility] Lymphocyte abs 2.4 0.8 - 3.3 K/cumm [facility] Monocyte abs 0.7 0.2 - 0.8 K/cumm [facility] Eosinophil abs 0.1 0.0 - 0.5 K/cumm [facility] Basophil abs 0.1 0.0 - 0.1 K/cumm [facility] Neutrophil pct 58.8 % [facility] Comment: Interpretive Data Percent cell count reference ranges are not reported, since discordance with absolute values may lead to misinterpretation of CBC data. Current Interpretive Data was last revised on 2017. Imm gran pct 0.1 % [facility] Comment: Interpretive Data Percent cell count reference ranges are not reported, since discordance with absolute values may lead to misinterpretation of CBC data. Current Interpretive Data was last revised on 2017. Lymphocyte pct 30.1 % [facility] Comment: Interpretive Data Percent cell count reference ranges are not reported, since discordance with absolute values may lead to misinterpretation of CBC data. Current Interpretive Data was last revised on 2017. Monocyte pct 8.3 % [facility] Comment: Interpretive Data Percent cell count reference ranges are not reported, since discordance with absolute values may lead to misinterpretation of CBC data. Current Interpretive Data was last revised on 2017. Eosinophil pct 1.8 % [facility] Comment: Interpretive Data Percent cell count reference ranges are not reported, since discordance with absolute values may lead to misinterpretation of CBC data. Current Interpretive Data was last revised on 2017. Basophil pct 0.9 % [facility] Comment: Interpretive Data Percent cell count reference ranges are not reported, since discordance with absolute values may lead to misinterpretation of CBC data. Current Interpretive Data was last revised on 2017. Blood 09/24/2022 8:39 AM CDT 09/24/2022 3:18 PM CDT Yancy Desai MD LAB BLOOD ORDERABLES Fin al Result Performing Organization Address [facility] Co de Phone Number AILEEN ZHAO [address] [facility] [place] [address] * Albumin Creatinine Ratio, Urine (09/24/2022 8:39 AM CDT) Albumin Ur 23.4 mg/L [facility] Comment: Interpretive Data No reference range established. Current interpretive data was last revised 2018. Creatinine Ur 165.9 mg/dL [facility] Comment: Interpretive Data No reference range established. Current interpretive data was last revised 2018. Albumin Creatinine Ratio, Ur 14 1 - 29 mg/g [facility] Urine 09/24/2022 8:39 AM CDT 09/24/2022 3:18 PM CDT Result [facility] Deedee DOWELL LAB URINE ORDERABLES Fi nal Result Performing Organization Address [facility] de Phone Number AILEEN ZHAO [id number] [facility] [place] [address] * TSH (09/24/2022 8:39 AM CDT) Thyroid Stimulating Hormone 0.67 0.30 - 4.20 mcIUnit/mL [facility] Blood 09/24/2022 8:39 AM CDT 09/24/2022 3:18 PM CDT Result [facility] Deedee DOWELL LAB BLOOD ORDERABLES Fi nal Result Performing Organization Address [facility] Co de Phone Number AILEEN ZHAO [phone] [facility] [place] [address] * Lipid panel (09/24/2022 8:39 AM CDT) [facility] Signature Cholesterol 169 30 - 199 mg/dL AILEEN [...] on 2017. Non-HDL Cholesterol 128 mg/dL AILEEN ZHAO Comment: Interpretive Data Ages [...] last revised on 2017. Chol/HDL ratio 4 [facility] Blood 09/24/2022 8:39 AM CDT 09/24/2022 3:18 PM CDT Deedee DOWELL LAB BLOOD [place] [address] [address] Department [place] [address] * (ABNORMAL) Comprehensive metabolic panel (09/24/2022 8:39 AM CDT) Sodium 140 135 - 145 mmol/L [facility] Potassium, pl 4.2 3.3 - 4.9 mmol/L [facility] Chloride 104 97 - 110 mmol/L [facility] CO2 27 22 - 32 mmol/L [facility] Anion gap 9 2 - 15 mmol/L [facility] BUN 14 6 - 25 mg/dL [facility] Creatinine 0.61 0.60 - 1.10 mg/dL [facility] Glucose 102 70 - 199 mg/dL [facility] Comment: Interpretive Data Fasting glucose >/= 126 mg/dl is diagnostic for diabetes. ?? Fasting is defined as no caloric intake for at least 8 hours. Fasting glucose between 100 mg/dl to 125 mg/dl is diagnostic of prediabetes. In a patient with classic symptoms of hyperglycemia or hyperglycemic crisis, a random glucose >/= 200 mg/dl is diagnostic for diabetes. In the absence of unequivocal hyperglycemia, results should be confirmed by repeat testing. The classification and Diagnosis of Diabetes Diabetes Care 2021; 46: S19-S40. Current interpretive data was last revised 2022. Calcium 9.2 8.5 - 10.3 mg/dL [facility] Bilirubin, total 0.3 0.1 - 1.2 mg/dL [facility] Protein, pl 6.4(L) 6.5 - 8.5 g/dL [facility] Albumin 4.2 3.5 - 5.0 g/dL [facility] Alk phos 65 40 - 130 Units/L [facility] ALT 51(H) 7 - 45 Units/L [facility] AST 32 10 - 45 Units/L [facility] Blood 09/24/2022 8:39 AM CDT 09/24/2022 3:18 PM CDT Deedee DOWELL LAB BLOOD ORDERABLES Fi nal Result Performing Organization Address City/[facility]/ZIP Co de Phone Number AILEEN ZHAO [address] Department [place], [place] [id number] * CBC with auto differential (09/24/2022 8:39 AM CDT) WBC 7.9 3.8 - 9.9 K/cumm [facility] Hgb 14.3 11.9 - 15.5 g/dL [facility] Hct 42.2 35.6 - 45.5 % [facility] Plt 229 150 - 400 K/cumm [facility] MPV 9.6 9.1 - 12.3 fL [facility] RBC 4.63 3.90 - 5.20 M/cumm [facility] MCV 91.1 81.3 - 96.4 fL [facility] MCH 30.9 27.1 - 33.3 pg [facility] MCHC 33.9 32.3 - 35.7 g/dL [facility] RDW CV 12.8 11.1 - 14.9 % [facility] RDW SD 42.9 35.7 - 48.1 fL [facility] NRBC abs 0.00 0.00 - 0.01 K/cumm [facility] Blood 09/24/2022 8:39 AM CDT 09/24/2022 3:18 PM CDT Yancy Desai MD LAB BLOOD ORDERABLES Fin al Result Performing Organization Address City/[facility]/ZIP Co de Phone Number AILEEN ZHAO [address] Department [place], [place] [phone] documented in this encounter Visit Diagnoses Diagnosis Other irritable bowel syndrome Gastroesophageal reflux disease without esophagitis Esophageal reflux Nausea and vomiting, unspecified vomiting type Type 2 diabetes mellitus with hyperglycemia, with long-term current use of insulin (HCC) documented in this encounter Care Teams Hot Metal Crane Operator Relationship Specialty Start Date End Date Deedee Low PA PCP - General 03/13/17 documented as of this encounter
--- OUTSIDE RECORDS SUMMARY | 2024-02-24 17:12 | XMS_ITS | Encounter Summary ---
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
--- OUTSIDE RECORDS SUMMARY | 2024-02-24 17:12 | XMS_ITS | Encounter Summary ---
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 * Telephone Encounter - Rosa Ortiz - 08/20/2022 8:50 AM CDT Pt called reporting severe constipation and rectal bleeding. Reports that she is taking the Amitizabut it is not working. documented in this encounter Plan of Treatment Not on file documented as of this encounter Visit Diagnoses Not on filedocumented in this encounter Care Teams Uc Architect Relationship Specialty Start Date End Date Deedee Low PA PCP - General 03/13/17 documented as of this encounter
--- OUTSIDE RECORDS SUMMARY | 2024-02-24 17:12 | XMS_ITS | Encounter Summary ---
Author Organization [facility] Address [address] [place] [address] Care Team Providers Care Elementary Math Tutor Name Role Phone Deedee Low Primary Care Pr ovider Reason for Visit * Cardiology (Routine) - Closed Specialty Diagnoses / Procedures Referred By Angelita t Referred To Contact Diagnoses Palpitations Procedures MCT Mobile Cardiac Telemetry Event Monitor Deedee Low PA Phone: tel: fax: [facility] Referral ID Status Reason Start Date Expiration Date Visits Re quested Visits Authorized [id number] Closed 05/09/2022 06/08/2023 1 1 Encounter Details Date Type Department Care Team (Late st Contact Info) Description 05/14/2022 1:30 PM PAYROLL AND BENEFITS SPECIALIST Ancillary Procedure [facility] Cardiology [address] [place] [address] Palpitations Social History Tobacco Use Types Packs/Day Years [...] on file Legal Sex Female 10:18 AM PAYROLL AND BENEFITS SPECIALIST Gender Identity Female 09/21/2019 9:02 PM CDT Sexual Orientation Not on file 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 AMBULATORY FIRER PORTABLE BOILER REPORT Patient Name: Alannah Ruano Date of : 1980 ?? Requesting Physician: Deedee Low M.D. Date of interpretation: 06/01/22 Type of monitor : 14 Day Event Monitor Date of the study/Enrollment period: 05/14/2022 to 05/27/2022 Indication: Palpitations Quality of the study: Good. ??Total analysis time is 11 days, 23 hours and 48 minutes Interpretation: Predominant rhythm is sinus rhythm. ??The average heart rate was 87 beats per minute. ??The minimum heart rate was 50 beats per minute and the maximum heart is 170 beats per minute. No evidence of atrial fibrillation, SVT, pauses, heart blocks. PVC burden is less than 1%. There was 1 episode of nonsustained ventricular tachycardia consisting of 4 beats (rate of 170BPM) that occurred on 05/25/2022 at 11:48 a.m.. There were 8 patient reported events. ??Patient reported symptoms of heart racing, lightheadedness, dizzy that all correlated to sinus tachycardia with a heart rate of 101 beats per minute to 128 beats per minute. Conclusions: Sinus rhythm. One episode of nonsustained ventricular tachycardia consisting of 4 beats. PVC burden is less than 1%. Patient's symptoms while wearing the monitor correlated to sinus tachycardia with a heart rate range of 101-128 BPM. Jaja Hooper M.D., [facility] 06/01/22 Voice recognition software was used to complete this document, therefore, supervisor core shop variances may occur. Procedure Note Jaja Hooper MD - 06/01/2022 Images from the original note were not included. AMBULATORY FIRER PORTABLE BOILER REPORT Patient Name: Alannah Ruano Date of : 1980 Requesting Physician: Deedee Low M.D. Date of interpretation: 06/01/22 Type of monitor : 14 Day Event Monitor Date of the study/Enrollment period: 05/14/2022 to 05/27/2022 Indication: Palpitations Quality of the study: Good. Total analysis time is 11 days, 23 hours and48 minutes Interpretation: Predominant rhythm is sinus rhythm. The average heart rate was 87 beatsper minute. The minimum heart rate was 50 beats per minute and themaximum heart is 170 beats per minute. No evidence of atrial fibrillation, SVT, pauses, heart blocks. PVC burden is less than 1%. There was 1 episode of nonsustained ventricular tachycardia consisting of4 beats (rate of 170BPM) that occurred on 05/25/2022 at 11:48 a.m.. There were 8 patient reported events. Patient reported symptoms of heartracing, lightheadedness, dizzy that all correlated to sinus tachycardiawith a heart rate of 101 beats per minute to 128 beats per minute. Conclusions: Sinus rhythm. One episode of nonsustained ventricular tachycardia consisting of 4beats. PVC burden is less than 1%. Patient's symptoms while wearing the monitor correlated to sinustachycardia with a heart rate range of 101-128 BPM. Jaja Hooper M.D., [facility] 06/01/22 Voice recognition software was used to complete this document, therefore,supervisor core shop variances may occur. us Deedee DOWELL CV CARDIAC SERVI [place] PROCEDURES Final Result documented in this encounter Visit Diagnoses Diagnosis Palpitations documented in this encounter Care Teams Elementary Math Tutor Relationship Specialty Start Date End Date Deedee Low PA PCP - General 03/13/17 documented as of this encounter
--- OUTSIDE RECORDS SUMMARY | 2024-02-24 17:12 | XMS_ITS | Encounter Summary ---
Author Organization [facility] Healthcare Address [address] [place] [address] Care Team Providers Care Library Helper Name Role Phone Deedee Low Primary Care Pr ovider Reason for Referral * Diagnostic Imaging (Routine) - Closed Specialty Diagnoses / Procedures Referred By Angelita silva Referred To Contact Diagnoses Dysphagia, oropharyngeal phase Procedures FL Modified Barium Swallow W Video Romie Shields MD [address] [address] Phone: tel: fax: [address] [phone] Referral ID Status Reason Start Date Expiration Date Visits Re quested Visits Authorized [id number] Closed 03/22/2022 04/21/2023 1 1 L OPERATOR Reason for Visit * Diagnostic Imaging (Routine) - Closed Specialty Diagnoses / Procedures Referred By Angelita silva Referred To Contact Diagnoses Dysphagia, oropharyngeal phase Procedures FL Modified Barium Swallow W Video Romie Shields MD [address] [address] Phone: tel: fax: [address] [phone] Referral ID Status Reason Start Date Expiration Date Visits Re quested Visits Authorized [id number] Closed 03/22/2022 04/21/2023 1 1 Encounter Details Date Type Department Care Team (Latest Contact Info) Description 05/03/2022 10:17 AM LOCAL OPERATOR - 05/03/2022 11:59 PM LOCAL OPERATOR Hospital Encounter [facility] [address] [place] [address] Dysphagia, oropharyngeal phase Discharge Disposition: Discharge to home or self [...] on file Legal Sex Female 10:18 AM LOCAL OPERATOR Gender Identity Female 09/21/2019 9:02 PM CDT Sexual Orientation Not on file 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 blood glucose diagnostic stripIndications:Ty pe 2 diabetes mellitus with hyperglycemia, with long-term current use of insulin (HCC) Use to check bg 7 times daily 500 each 1 0 blood-glucose meter miscIndications:Typ e 2 diabetes mellitus with hyperglycemia, with long-term current use of insulin (HCC) Check bg daily 1 each 0 buPROPion [...] 1 CAPSULE BY MOUTH EVERY WEEK DIRECTED fexofenadine (OCHOA) 180 mg tablet daily 6 fluticasone propion-salmeteroL (ADVAIR DISKUS) 250-50 mcg/dose diskus inhaler glucagon (Baqsimi) 3 mg/actuation spray,non-aerosol One spray into one nostril once as directed by provider for low blood sugar. 1 each 2 hydrOXYzine (ATARAX) 25 mg tablet Take 1 tablet (25 mg total) by mouth 1-2 nightly lamoTRIgine (LaMICtal) 100 mg tablet Take 1 tablet (100 mg total) by mouth daily 2 montelukast (SINGULAIR) 10 mg tablet nightly 1 OneTouch Delica Plus Lancet 33 gauge misc 2 pen needle, diabetic (BD Ultra-Fine Florina Pen [...] total) by mouth daily as needed 2 topiramate (TOPAMAX) 200 mg tablet 1 tablet (200 mg total) 2 (two) times a day 2 triamcinolone (KENALOG) 0.1 % ointment 2 (two) times a day 09/17/19 2 2 blood-glucose sensor (Dexcom G6 Sensor) device Change q 10 days 9 each 3 2 10/18/19 23 blood-glucose transmitter (Dexcom G6 Transmitter) device Change q 3 months 1 each 3 2 01/22/20 23 dapagliflozin (FARXIGA) 10 mg tablet Take 1 tablet (10 mg total) by mouth daily 90 tablet 3 3 08/31/19 23 doxycycline 100 mg tablet TAKE 1 TABLET BY MOUTH DAILY 90 tablet 3 2 06/01/19 23 fenofibrate (TRIGLIDE) 160 mg tablet Take 1 tablet (160 mg total) by mouth daily 05/09/19 24 insulin aspart (NovoLOG) 100 unit/mL vial for injection Use up to 160 units per day in insulin pump 150 mL 3 2 08/31/19 23 insulin pump cart,cont inf,BT (Omnipod Dash Pods, Gen 4,) cartridge Change q 3 days 30 each 3 2 08/14/19 23 ketorolac (ACULAR LS) 0.4 % drops Administer 1 drop into both eyes 2 (two) times a day 01/03/20 23 losartan (COZAAR) 50 mg tablet losartan 50 mg tablet TAKE 1 TABLET BY MOUTH EVERY DAY 03/21/19 24 ondansetron ODT (ZOFRAN-ODT) 4 mg disintegrating tablet 2 06/14/[address] (PROTONIX) 40 mg EC tablet Take 1 tablet (40 mg total) by mouth 2 (two) times a day 12/20/19 23 phentermine (ADIPEX-P) 37.5 mg tablet Take 1 tablet (37.5 mg total) by mouth daily before breakfast 30 tablet 4 2 07/04/19 rizatriptan (MAXALT) 10 mg tabletIndications:M igraine Take 1 tablet (10 mg total) by mouth once as needed for migraine May repeat in 2 hours if unresolved. Do not exceed 30 mg in 24 hours. 08/31/19 semaglutide (Ozempic) 0.25 mg or 0.5 mg(2 mg/1.5 mL) pen injector injection Inject 0.5 mg under the skin every 7 days 1.5 mL 11 2 08/31/19 ziprasidone (GEODON) 20 mg capsule Take 1 capsule (20 mg total) by mouth 2 (two) times a day with meals 1 01/03/20 documented as of this encounter Discharge Disposition Disposition Code Departure Means Destination Discharge to home or self care documented in this encounter Plan of Treatment Not on file documented as of this encounter Procedures Procedure Name Priority Date/Time Associated Diagnosis Comments FL MODIFIED BARIUM SWALLOW W VIDEO Schedule Routine, Read Routine (OP Routine) 05/03/2022 11:18 AM LOCAL OPERATOR Dysphagia, oropharyngeal phase documented in this encounter Results * FL Modified Barium Swallow W Video (05/03/2022 11:18 AM LOCAL OPERATOR) Anatomical Region Laterality Modality Head and Neck N/A Radio Fluoroscop y 05/03/2022 11:4 2 AM LOCAL OPERATOR Impressions 05/03/2022 11:45 AM LOCAL OPERATOR The swallowing mechanism is normal; see above comments. Please refer to the Speech Pathology procedure note for safe swallow recommendations as well as additional information regarding the oral-pharyngeal swallow function, plan of care, and recommended follow up. Dictated by: Neeraj Hussein MD ??PHD The radiology attending physician has personally reviewed this study, and had reviewed and/or edited this written report and agrees with it. Electronically signed by: Ciaran Gutierrez M.D. Narrative 05/03/2022 11:45 AM LOCAL OPERATOR EXAMINATION: MODIFIED BARIUM SWALLOW HISTORY: Dysphagia. TECHNIQUE: This procedure was completed in conjunction with a Speech Language Pathologist. The patient was given barium of multiple different consistencies to swallow. Video fluoroscopy was employed during the exam. FINDINGS: Oral-pharyngeal swallow function is normal. Penetration: No Aspiration: No Residue:No Other comments: None Procedure Note Ciaran Gutierrez MD - 05/03/2022 EXAMINATION: MODIFIED BARIUM SWALLOW HISTORY: Dysphagia. TECHNIQUE: This procedure was completed in conjunction with a Speech Language Pathologist. The patient was given barium of multiple different consistencies to swallow. Video fluoroscopy was employed during the exam. FINDINGS: Oral-pharyngeal swallow function is normal. Penetration: No Aspiration: No Residue:No Other comments: None IMPRESSION: The swallowing mechanism is normal; see above comments. Please refer to the Speech Pathology procedure note for safe swallow recommendations as well as additional information regarding the oral-pharyngeal swallow function, plan of care, and recommended follow up. Dictated by: Neeraj Hussein MD PHD The radiology attending physician has personally reviewed this study, and had reviewed and/or edited this written report and agrees with it. Electronically signed by: Ciaran Gutierrez M.D. Romie Shields MD IMG FLUOROSCOPY PROCEDUR ES Final Result documented in this encounter Visit Diagnoses Diagnosis Dysphagia, oropharyngeal phase documented in this encounter Administered Medications Inactive Administered Medications - up to 3 most recent administrations Medication Order MAR Action Action Date Dose Rate Site barium sulfate (E-Z DISK) 700 mg tablet 700 mg 700 mg, oral, Once in imaging, contrast, Starting on Mariaelena 05/03/22 at 1118, For 1 dose, Pre-Op/Floor Contrast Given 05/03/2022 11:20 AM LOCAL OPERATOR 1 mg barium sulfate (VARIBAR PUDDING) 40 % (w/v), 30% (w/w) pudding oral, Once in imaging, contrast, Starting on Mariaelena 05/03/22 at 1118, For 1 dose, Pre-Op/Floor Contrast Given 05/03/2022 11:20 AM LOCAL OPERATOR 20 mL barium sulfate (VARIBAR THIN LIQUID) 81 % (w/w) thin liquid oral, Once in imaging, contrast, Starting on Mariaelena 05/03/22 at 1118, For 1 dose, Pre-Op/Floor Contrast Given 05/03/2022 11:20 AM LOCAL OPERATOR 5 mL documented in this encounter Care Teams Library Helper Relationship Specialty Start Date End Date Deedee Low PA PCP - General 03/13/17 documented as of this encounter
--- OUTSIDE RECORDS SUMMARY | 2024-02-24 17:12 | XMS_ITS | Encounter Summary ---
Author Organization [facility] Address [address] [place] [address] Care Team Providers Care Cross Country Coach Name Role Phone ZeyadDeedee العلي Aylin DOWELL Primary Care Pr ovider Reason for Visit * Reason Comments Boils Encounter Details Date Type Department Care Team (Late st Contact Info) Description 05/31/2022 1:00 PM CDT Office Visit [facility] [address] [place] [id number] Sergio Ventura MD [address] [address] Recurrent boils (Primary Dx) Social History Tobacco [...] on file Legal Sex Female 10:18 AM CLEARANCE REPRESENTATIVE Gender Identity Female 09/21/2019 9:02 PM CDT Sexual Orientation Not on file 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 Return to clinic in 1 year documented in this encounter Ordered Prescriptions Prescription Sig Dispense Quantity Refills Last Filled Start Date End Date doxycycline 100 mg capsuleIndications: Prophylaxis, Medical Take 1 tablet/caps ule (100 mg total) by mouth daily 90 tablet/capsule 3 05/31/2022 05/02/2023 documented in this encounter Progress Notes * Sergio Ventura MD - 05/31/2022 1:00 PM CDT Images from the original note were not included. Subjective/Objective Patient ID: Alannah Ruano is a 42 y.o. female. Chief Complaint Boils HPI Alannah Ruano is a 41-year old female with history of hypertension, diabetes mellitus type II, depression, s/p gastric sleeve presents today for follow-up regarding recurrent boils. Patient has been on low dose of doxycycline for the past 2 years doing well. Patient reports 1 mild outbreak with apimple like lesion in the left upper back which resolved after a few days. Otherwise she had no newcomplaints. Current Outpatient Medications: albuterol 2.5 mg /3 mL (0.083 %) nebulizer solution, albuterol sulfate 2.5 mg/3 mL (0.083 %) solution for nebulization PRN, Disp: , Rfl: albuterol ER (VOSPIRE ER) 8 mg 12 hr tablet, PATIENT TAKES 8.5 GM DAILY PRN, Disp: , Rfl: atorvastatin (LIPITOR) 20 mg tablet, atorvastatin 20 mg tablet TAKE 1 TABLET BY MOUTH EVERY DAY IN THE EVENING, Disp: , Rfl: azelastine (ASTELIN) 137 mcg (0.1 %) nasal spray, azelastine 137 mcg (0.1 %) nasal spray aerosol [place] 2 sprays every day by nasal route for 31 days., Disp: , Rfl: blood glucose diagnostic strip, Use to check bg 7 times daily, Disp: 500 each, Rfl: 1 blood-glucose meter misc, Check bg daily, Disp: 1 each, Rfl: 0 blood-glucose sensor (Dexcom G6 Sensor) device, Change q 10 days, Disp: 9 each, Rfl: 3 blood-glucose transmitter (Dexcom G6 Transmitter) device, Change q 3 months, Disp: 1 each, Rfl: 3 buPROPion (WELLBUTRIN) 100 mg tablet, Take 100 mg by mouth 2 (two) times a day, Disp: , Rfl: carBAMazepine (TEGretol) 200 mg tablet, Take 100 mg by mouth 3 (three) times a day, Disp: , Rfl: cetirizine (ZyrTEC) 10 mg tablet, Take 10 mg by mouth daily, Disp: , Rfl: dapagliflozin (FARXIGA) 10 mg tablet, Take 1 tablet (10 mg total) by mouth daily, Disp: 90 tablet, Rfl: 3 diazePAM (VALIUM) 5 mg tablet, Take 5 mg by mouth every 8 (eight) hours as needed, Disp: , Rfl: diphenhydrAMINE (BENADRYL) 25 mg capsule, Take 25 mg by mouth every 6 (six) hours as needed, Disp: , Rfl: EPINEPHrine 0.3 mg/0.3 mL auto-injection syringe, Auvi-Q 0.3 mg/0.3 mL injection, auto-injector ADMINISTER 0.3 MG IN THE MUSCLE 1 TIME, Disp: , Rfl: ergocalciferol (VITAMIN D) 50,000 unit capsule, ergocalciferol (vitamin D2) 1,250 mcg (50,000 unit)capsule TAKE 1 CAPSULE BY MOUTH EVERY WEEK DIRECTED, Disp: , Rfl: fenofibrate (TRIGLIDE) 160 mg tablet, Take 160 mg by mouth daily, Disp: , Rfl: fexofenadine [...] 0 hydrOXYzine (ATARAX) 25 mg tablet, Take 25 mg by mouth 1-2 nightly, Disp: , Rfl: insulin aspart (NovoLOG) 100 unit/mL vial for injection, Use up to 160 units per day in insulin pump, Disp: 150 mL, Rfl: 3 insulin pump cart,cont inf,BT (Omnipod Dash Pods, Gen 4,) cartridge, Change q 3 days, Disp: 30 each, Rfl: 3 ketorolac (ACULAR LS) 0.4 % drops, Administer 1 drop into both eyes 2 (two) times a day, Disp: , Rfl: lamoTRIgine (LaMICtal) 100 mg tablet, Take 100 mg by mouth daily, Disp: , Rfl: losartan (COZAAR) 50 mg tablet, losartan 50 mg tablet TAKE 1 TABLET BY MOUTH EVERY DAY, Disp: , Rfl: montelukast (SINGULAIR) 10 mg tablet, , Disp: , Rfl: ondansetron ODT (ZOFRAN-ODT) 4 mg disintegrating tablet, , Disp: , Rfl: OneTouch Delica Plus Lancet 33 gauge misc, , Disp: , Rfl: pantoprazole DR (PROTONIX) 40 mg EC tablet, Take 40 mg by mouth 2 (two) times a day, Disp: , Rfl: pen needle, diabetic (BD Ultra-Fine Florina Pen Needle) 32 gauge x 5/32 needle, USE DIRECTED up to7 times daily, Disp: 700 each, Rfl: 0 phentermine (ADIPEX-P) 37.5 mg tablet, Take 1 tablet (37.5 mg total) by mouth daily before breakfast, Disp: 30 tablet, Rfl: 4 propranoloL (INDERAL) 20 mg tablet, Take 20 mg by mouth 2 (two) times a day, Disp: , Rfl: rimegepant (NURTEC ODT) tablet,disintegrating, Take 75 mg by mouth daily as needed, Disp: , Rfl: rizatriptan (MAXALT) 10 mg tablet, Take 10 mg by mouth once as needed for migraine May repeat in 2 hours if unresolved. Do not exceed 30 mg in 24 hours., Disp: , Rfl: semaglutide (Ozempic) 0.25 mg or 0.5 mg(2 mg/1.5 mL) pen injector injection, Inject 0.5 mg under the skin every 7 days, Disp: 1.5 mL, Rfl: 11 topiramate (TOPAMAX) 200 mg tablet, 200 mg 2 (two) times a day, Disp: , Rfl: triamcinolone (KENALOG) 0.1 % ointment, APPLY TOPICALLY TO THE AFFECTED AREA THREE TIMES DAILY, Disp: , Rfl: ziprasidone (GEODON) 20 mg capsule, Take 20 mg by mouth 2 (two) times a day with meals, Disp: , Rfl: doxycycline 100 mg capsule, Take 1 tablet/capsule (100 mg total) by mouth daily, Disp: 90 tablet/capsule, Rfl: 3 Review of Systems Constitutional: Negative for fatigue [...] are equal, round, and reactive to light. Pulmonary: Effort: Pulmonary effort is normal. Breath [...] all orders for this visit: Recurrent boils (L02.93) (Primary) Other orders - doxycycline 100 mg capsule; Take 1 tablet/capsule (100 mg total) by mouth daily Alannah Ruano is a 41-year old female with history of hypertension, diabetes mellitus type II, depression, s/p gastric sleeve presents today for follow-up regarding recurrent boils. Patient doing well on suppressive therapy with low- dose of doxycycline. Plan is to continue treatment for another year or 2, then may consider to stop and observe. Sergio Ventura MD documented in this encounter Plan of Treatment Not on file documented as of this encounter Visit Diagnoses Diagnosis Recurrent boils- Primary Carbuncle and furuncle of unspecified site documented in this encounter Discontinued Medications Medication Sig Discontinue Reason Start Date End Da te doxycycline 100 mg tablet TAKE 1 TABLET BY MOUTH DAILY Reorder 01/01/2022 05/31/2022 documented as of this encounter Care Teams Cross Country Coach Relationship Specialty Start Date End Date Deedee Low PA PCP - General 03/13/17 documented as of this encounter
--- OUTSIDE RECORDS SUMMARY | 2024-02-24 17:12 | XMS_ITS | Encounter Summary ---
Author Organization [facility] Address [address] [place] [address] Phone Care Team Providers Care Mass Spectrometry Manager Name Role Phone Jennifermary Deedee DOWELL Primary Care Pr ovider Reason for Visit * Reason Comments Follow-up Discuss results of M DONNA Encounter Details Date Type Department Care Team (Late st Contact Info) Description 05/03/2022 11:40 AM DIRECTOR OF IN SERVICE EDUCATION Office Visit [facility] - [facility] [address] [place] [address] [place] [address] Romie Shields MD [address] [place], [place] [id number] Chronic cough (Primary Dx); Dysphagia, unspecified type Social History Tobacco Use Types [...] on file Legal Sex Female 10:18 AM DIRECTOR OF IN SERVICE EDUCATION Gender Identity Female 09/21/2019 9:02 PM CDT Sexual Orientation Not on file 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 Not on file Not on file documented as of this encounter Last Filed Vital Signs Vital Sign Reading Time Taken Comments Blood Pressure - - Pulse - - Temperature - - Respiratory Rate - - Oxygen Saturation - - Inhaled Oxygen Concentration - - Weight 96.2 kg (212 lb) 05/03/2022 12:02 PM DIRECTOR OF IN SERVICE EDUCATION Height - - Body Mass Index 36.16 03/29/2022 12:59 PM DIRECTOR OF IN SERVICE EDUCATION documented in this encounter Progress Notes * Romie Shields MD - 05/03/2022 11:40 AM CST [facility] Department of Otolaryngology - Head & Neck Surgery [facility] Return Visit PATIENT NAME: Alannah Ruano : 1980 PATIENT ID: Alannah Ruano is a 42 y.o. previously evaluated and treated for dysphagia, epiphora, and chronic cough. LAST SURGERY: LAST VISIT: 03/22/2022 Subjective Alannah Ruano is a 42 y.o. female who presents today for follow-up of dysphagia, epiphora, and chronic cough. She reports that overall, her symptoms are improved compared to prior. She continues to have some difficulty with swallowing pills, but she is reassured by the swallow test today. Her epiphora has improved, and what remains she attributes to her ketorolac eyedrops. Her cough has also improved. REVIEW OF SYSTEMS: No changes since last office visit. Objective PHYSICAL EXAM: Constitutional: Vitals Wt 96.2 kg (212 lb) BMI 36.16 kg/m?? General: Well-developed, well-nourished in no apparent distress. Appropriate affect. Voice: perceptual evaluation of voice reveals overall no dysphonia; no roughness, no breathiness, no weakness, and no strain. The pitch is within expectations for age and gender. There is not evidence of tremor. Head and Face: Normocephalic, atraumatic. Skin: No cutaneous lesions of the face or neck. Neurologic: Cranial nerves II through XII are grossly intact. Eyes: Pupils are equal, round, and reactive to light and accommodation. Ears: Auricles are unremarkable bilaterally. Nose: Dorsum is midline. No external deformity. DATA REVIEWED: 05/03/2022 Lab Tests: no Pathology Reports: no Radiology Reports: Personally interpreted the modified barium swallow test. This shows an essentially normal study. There was no penetration or aspiration. No significant obstruction of the pharyngo esophageal segment. Old Records/Discussion with MD: Prior encounter notes reviewed as well as relevant notes from otherproviders. Assessment/Plan Alannah Ruano is a 42 y.o. referred for evaluation of chronic cough, chronic epiphora, and chronic dysphagia. I reviewed her modified barium swallow. We discussed that together. The study was overall reassuring. We did discuss her chronic cough and her epiphora. The cough itself is under relatively good control. It only bothers her when she is talking on the phone all day at work. The epiphora she attributes to her eyedrops and does not feel that it warrants additional workup or treatment. MEDICATION ORDERS: No orders of the defined types were placed in this encounter. OTHER ORDERS: No orders of the defined types were placed in this encounter. OR ORDERS: Return DISPOSITION: Return if symptoms worsen or fail to improve. Romie Shields M.D. Flooring Machine Feeder [facility] Department of Otolaryngology - Head & Neck Surgery [facility] Portions of this note were dictated using M*Modal Fluency Direct. English Composition Teacher errors and homophone substitutions may occur. CTOR OF IN SERVICE EDUCATION documented in this encounter Plan of Treatment Not on file documented as of this encounter Visit Diagnoses Diagnosis Chronic cough- Primary Cough Dysphagia, unspecified type documented in this encounter Care Teams Mass Spectrometry Manager Relationship Specialty Start Date End Date Deedee Low PA PCP - General 03/13/17 documented as of this encounter
--- OUTSIDE RECORDS SUMMARY | 2024-02-24 17:12 | XMS_ITS | Encounter Summary ---
Author Organization [facility] Address [address] [place] [address] Phone Care Team Providers Care Sidewalk Inspector Name Role Phone Deedee Low Primary Care Pr ovider Reason for Referral * Consultation (Routine) - Closed Specialty Diagnoses / Procedures Referred By Angelita silva Referred To Contact Gastroenterology Diagnoses Other irritable bowel syndrome Gastroesophageal reflux disease without esophagitis Nausea and vomiting, unspecified vomiting type Deedee Low PA Phone: tel: fax: [facility] (All Locations) Referral ID Status Reason Start Date Expiration Date V isits Requested Visits Authorized [id number] Closed Specialty Services Required 06/13/2022 07/13/2023 12 12 Question Answer Please select the performing region: [facility] (All Locations) [167] # of visits: 1 Reason for Visit * Consultation (Routine) - Closed Specialty Diagnoses / Procedures Referred By Angelita silva Referred To Contact Gastroenterology Diagnoses Other irritable bowel syndrome Gastroesophageal reflux disease without esophagitis Nausea and vomiting, unspecified vomiting type Deedee Low PA Phone: tel: fax: [facility] (All Locations) Referral ID Status Reason Start Date Expiration Date V isits Requested Visits Authorized [id number] Closed Specialty Services Required 06/13/2022 07/13/2023 12 12 Encounter Details Date Type Department Care Team (Late st Contact Info) Description 06/13/2022 11:40 AM CDT Office Visit [facility] Gastroenterology [address] [place] [address] [place] [address] Yancy Desai MD [address] [place] [address] Other irritable bowel syndrome (Primary Dx); Gastroesophageal reflux disease without esophagitis; Nausea and vomiting, unspecified vomiting type Social History Tobacco Use Types Packs/Day [...] on file Legal Sex Female 10:18 AM 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 Gender Identity Female 09/21/2019 9:02 PM CDT Sexual Orientation Not on file 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 Not on file Not on file documented as of this encounter Last Filed Vital Signs Vital Sign Reading Time Taken Comments Blood Pressure 162/109 06/13/2022 11:59 AM CDT Pulse 76 06/13/2022 11:59 AM CDT Temperature 36.4 ??C (97.6 ??F) 06/13/2022 11:59 AM C DT Respiratory Rate - - Oxygen Saturation - - Inhaled Oxygen Concentration - - Weight 95.3 kg (210 lb) 06/13/2022 11:59 AM CDT Height 162.6 cm (5' 4 ) 06/13/2022 11:59 AM CDT Body Mass Index 36.05 06/13/2022 11:59 AM CDT documented in this encounter Patient Instructions * Patient Instructions* Jose Bergman LPN - 06/13/2022 11:40 AM CDT Increase Zofran to 8mg, continue PPI, start motegrity 2mg- Sent to [employer]. Our office will be in touch to schedule your EGD. Clinic follow up in 6 months. Labs today [facility] (Main Location) [address] [place] [address] [address], [place] [address] Hours: 6:30 a.m. - 6 p.m., Saturday-Saturday Additional [facility] Location Floor [address], [address] Hours: 8 a.m. - 4:30 p.m., Saturday, Saturday, , Saturday 7:30 a.m. - 4 p.m. Saturday documented in this encounter Ordered Prescriptions Prescription Sig Dispense Quantity Refills Last Filled Start Date End Date ondansetron ODT (ZOFRAN-ODT) 4 mg disintegrating tablet Take 2 tablets (8 mg total) by mouth every 8 (eight) hours as needed for nausea or vomiting 20 tablet 6 06/13/2022 3 prucalopride (MOTEGRITY) 2 mg tablet Take 1 tablet (2 mg total) by mouth daily 30 tablet 2 06/13/2022 3 documented in this encounter Progress Notes * Bo Hernandez MD - 06/13/2022 11:40 AM CDT Images from the original note were not included. [facility] DIV[facility] OF GASTROENTEROLOGY GI Clinic Note NAME: Alannah Ruano : 1980 DOS: 06/13/2022 Subjective Chief complaint: Nausea, constipation HPI Ms. Ruano is a 42 y.o. female with history of gastric sleeve 08/2020, T2DM, HTN, HLD, MRSA skin infections (on chronic doxycycline) who presents for evaluation of nausea, constipation, and GERD. She was last seen in GI clinic in 02/2020 where she reported nausea, early satiety, and bloating inthe setting of a recent abnormal gastric emptying study. Reported transient improvement in symptomswith reglan. Also endorsed constipation with miralax being unhelpful for her symptoms. At this visit motegrity was started for management of constipation as well as gastroparesis. Continued on daily PPI for GERD. Since her last visit, she underwent gastric sleeve surgery in 08/2020. She states that following this procedure, all symptoms such as constipation, nausea, abdominal pain, and acid reflux resolved. However, all symptoms returned 6-8 months ago. During this time, she has experienced persistent nausea which improves only with zofran. She takes 1-3 doses per day. Reports 1-2 episodes of vomiting gastric contents each day. Denies hematemesis orcoffee ground emesis. Also experiences acid reflux pain at least once per day and often awakens at night due to coughing up stomach acid. She takes pantoprazole twice daily as well as famotidine eachAM. In the past, she has tried omeprazole and esomeprazole without improvement in symptoms. Appetite has been variable, weight is stable. Also endorses constipation, having one BM every 3-8 days. Reports associated abdominal cramping andbloating. She takes miralax daily. States that most BMs are small and hard, but 3x per month will have a stool like black sludge. She stopped motegrity in 2020 following her gastric sleeve procedure. This was previously effective. She is currently on farxiga and ozempic as well as insulin for DM, last A1c was 5.3 in 03/2022. Denies any changes in her pain or nausea since starting ozempic. Patient Active Problem List Diagnosis Type 2 diabetes mellitus with hyperglycemia, with long-term current use of insulin ([facility]) (HCC) BMI 38.0-38.9,adult Morbid obesity ([facility]) Hypertension associated with diabetes ([facility]) Mixed hyperlipidemia engagement lead associated with adverse incidents Visual field constriction, bilateral Macular edema, diabetic (HCC) Lumbar puncture headache Migraine Trigeminal neuralgia Recurrent boils Carpal tunnel syndrome Hypoglycemia due to type 1 diabetes mellitus (CMS/HCC) ([facility]) Physical deconditioning Hyperlipidemia associated with type 2 diabetes mellitus ([facility]) Insulin pump in place Abscess of buttock Abscess of vulva Acute sinusitis Acute vaginitis Asthma Chronic recurrent sinusitis Claustrophobia Conjunctivitis Cough Cyst of pineal gland Diarrhea Disorder of vision Dyslipidemia Foot joint pain Gastroesophageal reflux disease without esophagitis Generalized anxiety disorder Hematochezia Hemorrhoids Injury of hand Irregular periods Irritable bowel syndrome Keratosis pilaris Mental disorder Microalbuminuric diabetic nephropathy (CMS/HCC) ([facility]) Mild anxiety Mild major depression ([facility]) Nausea and vomiting Occult blood in stools Panic attack Posterior rhinorrhea Rash Routine general medical examination at a health care facility Seasonal allergic rhinitis due to pollen Severe recurrent major depression without psychotic features ([facility]) Sinus headache Stomach cramps Uncontrolled type 2 diabetes mellitus Viral gastroenteritis Vitamin D deficiency Morbid (severe) obesity due to excess calories ([facility]) Past Medical History: Diagnosis Date Anxiety Asthma Asthma Back pain Cough Depression Diarrhea Fatigue GERD (gastroesophageal reflux disease) Headache HX OTHER MEDICAL Migraines Hypercholesterolemia High cholesterol Hypertension Migraines Muscle pain Numbness and tingling Pain with urination Seizure ([facility]) TMJ dysfunction Type 2 diabetes mellitus ([facility]) Past Surgical History: Procedure Laterality Date ADENOIDECTOMY adenoidectomy COLONOSCOPY 2006 ORAL SURGERY Oral Surgery SINUS SURGERY 2015 TONSILLECTOMY tonsillectomy Current Outpatient Medications: albuterol 2.5 mg /3 [...] 137 mcg (0.1 %) nasal spray aerosol [place] 2 sprays every day by nasal route [...] 3 diazePAM (VALIUM) 5 mg tablet, Take 1 [...] 10 mg tablet, , Disp: , Rfl: OneTouch Delica Plus Lancet 33 gauge misc, , Disp: , Rfl: pantoprazole DR (PROTONIX) 40 mg EC tablet, Take 1 tablet (40 mg total) [...] 4 propranoloL (INDERAL) 20 mg tablet, Take 1 tablet (20 mg total) by mouth 2 (two) times a day, Disp:, Rfl: rimegepant (NURTEC ODT) tablet,disintegrating, Take 1 tablet (75 mg total) by mouth daily as needed, Disp: , Rfl: rizatriptan (MAXALT) 10 mg tablet, Take 1 tablet (10 mg total) by mouth once as needed for migraineMay repeat in 2 hours if unresolved. Do not exceed 30 mg in 24 hours., Disp: , Rfl: semaglutide (Ozempic) 0.25 mg or 0.5 mg(2 mg/1.5 mL) pen injector injection, Inject 0.5 mg under the skin every 7 days, Disp: 1.5 mL, Rfl: 11 topiramate (TOPAMAX) 200 mg tablet, 1 tablet (200 mg total) 2 (two) times a day, Disp: , Rfl: triamcinolone (KENALOG) 0.1 % ointment, APPLY TOPICALLY TO THE AFFECTED AREA THREE TIMES DAILY, Disp: , Rfl: ziprasidone (GEODON) 20 mg capsule, Take 1 capsule (20 mg total) by mouth 2 (two) times a day with meals, Disp: , Rfl: ondansetron ODT (ZOFRAN-ODT) 4 mg disintegrating tablet, Take 2 tablets (8 mg total) by mouth every8 (eight) hours as needed for nausea or vomiting, Disp: 20 tablet, Rfl: 6 prucalopride (MOTEGRITY) 2 mg tablet, Take 1 tablet (2 mg total) by mouth daily, Disp: 30 tablet, Rfl: 2 Allergies Allergen Reactions Mushroom Anaphylaxis Nut Flavor Anaphylaxis MAINLY PECANS CAN TOLERATE PEANUTS Pecan Nut Anaphylaxis Pneumovax-23 [Pneumococcal 23-Giselle Ps Vaccine] Unknown Family History Problem Relation Age of Onset Heart attack Father Family history of myocardial [...] of hypertension - (Added by TW Conv) Glaucoma Maternal Grandmother Macular degeneration Maternal Grandmother Hearing loss Maternal Grandmother Hypertension Sister Social History Tobacco Use Smoking Status Former Smokeless Tobacco Never Tobacco Comments smoked for 3 years Alcohol Use: Not At Risk Frequency of Alcohol Consumption: 2-4 times a month Average Number of Drinks: 1 or 2 Frequency of Binge Drinking: Never Substance and Sexual Activity Drug Use Never Comment: Rare alcohol use ROS As outlined in HPI. All other systems negative. Objective Vital Signs BP (!) 162/109 Pulse 76 Temp 36.4 ??C (97.6 ??F) Ht 162.6 cm (5' 4 ) Wt 95.3 kg (210 lb) BMI 36.05 kg/m?? Physical Exam General: NAD, appears comfortable sitting in chair HEENT: MMM, PERRL, sclerae anicteric CV: RRR, nl S1S2, no m/r/g Pulm: Lungs CTAB, nl WOB on RA; no wheezes or crackles Abd: Soft, NTND, normoactive BS; no masses or HSM appreciated Ext: WWP, no LE edema, distal pulses intact Neuro: Alert, clear speech, no gross focal deficits Results: Lab Results Component Value Date WBC 8.0 09/12/2021 HGB 12.3 09/12/2021 HCT 36.5 09/12/2021 MCV 88.4 09/12/2021 LABPLAT 201 09/12/2021 Chemistry Component Value Date/Time SODIUM 140 09/12/2021 0514 SODIUM 136 08/11/2020 0909 POTASSIUM 3.6 09/12/2021 0514 POTASSIUM 4.2 08/11/2020 0909 CHLORIDE 106 09/12/2021 0514 CHLORIDE 106 08/11/2020 0909 CO2 28 09/12/2021 0514 CO2 23 08/11/2020 0909 BUNSER 15 09/12/2021 0514 BUNSER 15 08/11/2020 0909 CREATININE 0.97 09/12/2021 0514 CREATININE 0.84 08/11/2020 0909 GLUCOSE 85 09/12/2021 1202 GLUCOSE 80 09/12/2021 0514 GLUCOSE 113 (H) 08/11/2020 0909 Component Value Date/Time CALCIUM 8.9 09/12/2021 0514 CALCIUM 9.4 08/11/2020 0909 ALKPHOS 74 06/09/2021 0855 ALKPHOS 67 08/11/2020 0909 AST 19 06/09/2021 0855 AST 12 08/11/2020 0909 ALT 23 06/09/2021 0855 ALT 15 08/11/2020 0909 BILITOT 0.4 06/09/2021 0855 BILITOT 0.4 08/11/2020 0909 No results found for: CRP Assessment/Plan 42 y.o. female with history of gastric sleeve 08/2020, T2DM, HTN, HLD, MRSA skin infections (on chronic doxycycline) who presents for evaluation of nausea, constipation, and GERD. She reports similar symptoms prior gastric sleeve in 2020 which resolved after the procedure. Her constipation and nausea have returned and worsened over the past 6 months. #Constipation - Pt reports one BM every 3-8 days, sometimes loose and black concerning for possible bleeding - Prior CBCs without evidence of anemia - Currently on miralax daily - Will restart motegrity - Check CBC today - Plan for EGD to evaluate GERD, nausea, and possible GI bleeding #Nausea #Gastroparesis - History of abnormal gastric emptying study in 04/2019, prior to gastric sleeve - Consider potential contribution from diabetes medications - Currently taking zofran multiple times each day with transient improvement in symptoms - Will increase zofran from 4mg to 8mg - Schedule EGD as above - Consider reglan in the future, attempting to limit given concern for possible extrapyramidal symptoms with prolonged use #GERD - Reports typical symptoms such as acid discomfort worsening with acidic and spicy foods, regurgitation of acid at night - Currently on pantoprazole BID, famotidine with persistent symptoms - Will evaluate with EGD as above - If EGD is unrevealing, consider further testing with pH-impedance manometry - Keep current med regimen for now Orders Orders Placed This Encounter Procedures Comprehensive metabolic panel Standing Status: Future Number of Occurrences: 1 Standing Expiration Date: 06/14/2023 CBC with auto differential Standing Status: Future Number of Occurrences: 1 Standing Expiration Date: 06/14/2023 Ambulatory referral to Gastroenterology Standing Status: Future Number of Occurrences: 1 Standing Expiration Date: 06/14/2023 Referral Priority: Routine Referral Type: Consultation Referral Reason: Specialty Services Required Referral Location: [facility] (All Locations) Requested Specialty: Gastroenterology Number of Visits Requested: 1 Follow up: Return in about 6 months (around 12/13/2022). Patient seen and discussed with attending, Dr. Desai. Bo Hernandez MD PGY-4, Gastroenterology Cosigned by Yancy Desai MD at 06/15/2022 3:02 PM CDT Associated attestation - Yancy Desai MD - 06/15/2022 3:02 PM CDT I have seen and examined the patient. I agree with the findings and plan of care as documented in the resident/fellow's note. My total encounter time on 06/13/2022 was 25 minutes which was spent in theactivities documented in the note. This includes time spent prior to the visit and after the visit in direct care of the patient. This time does not include time spent in any separately reportable ser vices. documented in this encounter Miscellaneous Notes * Addendum Note - Sabine Kendrick - 06/13/2022 11:40 AM CDTAddended by: SABINE KENDRICK on: 09/24/2022 08:39 AM Modules accepted: Orders documented in this encounter Plan of Treatment Scheduled Referrals Name Type Priority Associated Diagnoses Order Schedule Ambulatory referral to Gastroenterology Outpatient Referral Routine Other irritable bowel syndrome Gastroesophageal reflux disease without esophagitis Nausea and vomiting, unspecified vomiting type Expected: 06/27/2022 (Approximate), Expires: 06/14/2023 documented as of this encounter Results * CBC with auto differential (09/24/2022 8:39 [...] RDW SD 42.9 35.7 - 48.1 fL [facility] NRBC abs 0.00 0.00 - 0.01 K/cumm AILEEN Blood 09/24/2022 8:39 AM CDT 09/24/2022 3:18 PM CDT Yancy Desai MD LAB BLOOD ORDERABLES Fin al Result [facility] [address] Department [place] [address] documented in this encounter Visit Diagnoses Diagnosis Other irritable bowel syndrome- Primary Gastroesophageal reflux disease without esophagitis Esophageal reflux Nausea and vomiting, unspecified vomiting type documented in this encounter Discontinued Medications Medication Sig Discontinue Reason Start Date End Da te ondansetron ODT (ZOFRAN-ODT) 4 mg disintegrating tablet Reorder 10/05/2021 06/13/2022 documented as of this encounter Care Teams Sidewalk Inspector Relationship Specialty Start Date End Date Deedee Low PA PCP - General 03/13/17 documented as of this encounter
--- OUTSIDE RECORDS SUMMARY | 2024-02-24 17:12 | XMS_ITS | Encounter Summary ---
Author Organization [facility] Address [address] [place] [address] Phone Care Team Providers Care Judo Instructor Name Role Phone Deedee Low Primary Care Pr ovider Reason for Visit * Reason Onset Date Comments GI PRE PROCEDURE SCREENING ASSESSMENT 08/24/2022 Encounter Details Date Type Department Care Team (Late st Contact Info) Description 08/24/2022 Telephone [facility] Gastroenterology [address] [facility] [address] [place] [address] [place] [address] Jose Bergman LPN GI PRE PROCEDURE SCREENING ASSESSMENT Social History Tobacco Use Types Packs/Day Years [...] on file 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 Gender Identity Female 09/21/2019 9:02 PM CDT Sexual Orientation Not on file 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 Wt Readings from Last 1 Encounters: 06/13/22 95.3 kg (210 lb) [] Patient had GI procedure/CPAP clinic/GI clinic <30 days (if Yes, no medical screening questions needed unless new clinical issues in last 30 days) Medical screening questions: BMI/Weight: NA CARDIOVASCULAR: None RESPIRATORY/LUNG: COPD/asthma- If severe (FEV1 < 50% of predicted) or continuous O2 no SC. 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/: NA IMPLANTS.: None Notes: DIABETIC MEDS Y/N: No/NA []Yes- Discuss diabetes medication management with prescribing physician DIALYSIS Y/N: No/NA []HD- Schedule on non-HD day, see protocol []PD- Drain PD fluid AM of procedure, if colonoscopy order AB ppx, see protocol PACEMAKER/ICD Y/N: No/NA Device info: Last documented device check: Any shocks since last cards visit (if yes must see cardiology for procedure clearance): BLOOD THINNERS/ANTICOAG/ANTIPLATELET (BESIDES ASA) Medication: NONE CONTINUE ASPIRIN INFORMATION REQUESTED []Imaging: []Medical Progress Note/H&P []Medication list []Other: PATIENT OPTIMIZATION []Physician reviewing escalation: []CPAP: Date scheduled: Outcome : [] Location limitations: Scheduling Scheduling location limitations: Hopper Filler needed [] NA Language: POA [] NA Name: SPECIAL PROCEDURE INSTRUCTIONS Scheduling Notes Procedure information Date of procedure: 11/01/2022 Time of procedure: 1030 Arrival time: 929 Location: [facility] Proceduralist: Lloyd Instructions Method of instructions: MyChart [x]Confirmation of ride/napping machine operator [x]Post anesthesia restrictions given [x]NPO Instructions: [x]Diet Instructions: [x]Take non-blood thinner prescription meds that morning [x]Bring med list, photo ID, insurance card, no valuables [x]Bring COVID vaccination card (if vaccinated) Bowel Prep Prep prescribed: Nulytely Method of Bowel Prep (RX): E-Scribe Copy ----- Message from Alannah Ruano sent at 08/22/2022 12:50 PM CDT ----- Regarding: Follow Up Questions to Symptom Call Contact: I have asthma, I have had a Covid vaccine and one booster. I have not had or been exposed to Covid in the last 10 days. Thank you! documented in this encounter Plan of Treatment Not on file documented as of this encounter Visit Diagnoses Not on filedocumented in this encounter Care Teams Judo Instructor Relationship Specialty Start Date End Date Deedee Low PA PCP - General 03/13/17 documented as of this encounter
--- OUTSIDE RECORDS SUMMARY | 2024-02-24 17:12 | XMS_ITS | Encounter Summary ---
Author Organization [facility] Address [address] [place] [address] Care Team Providers Care Dog Pound Attendant Name Role Phone Deedee Low Primary Care Pr ovider Reason for Visit * Reason Comments Follow-up TYPE 2 DM Encounter Details Date Type Department Care Team (Late st Contact Info) Description 08/30/2022 2:00 PM CDT Office Visit [facility] [address] [place] [id number] [place] [address] [facility] [address] [place] [address] Type 2 diabetes mellitus with hyperglycemia, with long-term current use of insulin (CMS/HCC) (HCC) (Primary Dx); Hypertension associated with diabetes (HCC); Hyperlipidemia associated with type 2 diabetes mellitus (HCC); Insulin pump in place Social History [...] on file 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 Gender Identity Female 09/21/2019 9:02 PM CDT Sexual Orientation Not on file 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 Not on file Not on file documented as of this encounter Last Filed Vital Signs Vital Sign Reading Time Taken Comments Blood Pressure 138/90 08/30/2022 1:50 PM CDT Pulse 82 08/30/2022 1:50 PM CDT Temperature - - Respiratory Rate 18 08/30/2022 1:50 PM CDT Oxygen Saturation - - Inhaled Oxygen Concentration - - Weight 97.4 kg (214 lb 12.8 oz) 08/30/2022 1:50 PM CDT Height 162.6 cm (5' 4 ) 08/30/2022 1:50 PM CDT Body Mass Index 36.87 08/30/2022 1:50 PM CDT documented in this encounter Patient Instructions * Patient Instructions* Deedee Hussein PA - 08/30/2022 2:00 PM CDT Start Mounjaro 2.5 mg weekly for 4 weeks. Then increase Mounjaro to 5 mg weekly for 4 weeks. Call or email in if you're tolerating well and we can continue to increase the dose as it works foryou. documented in this encounter Ordered Prescriptions Prescription Sig Dispense Quantity Refills Last Filled Start Date End Date insulin pump cart,automated,BT (Omnipod 5 G6 Pods, Gen 5,) cartridge Change pod q 3 days 30 each 3 08/30/2022 insulin pump cart,auto,BT-cntr (Omnipod 5 G6 Intro Kit, Gen 5,) cartridge Change pod q 3days 1 each 08/30/2022 tirzepatide (Mounjaro) 5 mg/0.5 mL pen injector Inject 5 mg under the skin every 7 days 2 mL 2 08/30/2022 3 tirzepatide (Mounjaro) 2.5 mg/0.5 mL pen injector Inject 2.5 mg under the skin every 7 days 2 mL 08/30/2022 3 dapagliflozin propanediol (FARXIGA) 10 mg tablet Take 1 tablet (10 mg total) by mouth daily 90 tablet 3 08/30/2022 3 insulin lispro (HumaLOG) 100 unit/mL vial for injection Inject up to 100 units daily via insulin pump 90 mL 1 08/30/2022 4 documented in this encounter Progress Notes * Deedee Hussein PA - 08/30/2022 2:00 PM CDT Images from the original note were not included. [facility] ENDO[facility]INOLOG[facility] Diabetes Follow Up Visit Subjective/Objective Patient ID: Alannah Ruano is a 42 y.o. female who comes in today to our Endocrinology clinic tofollow up for DM management. Chief Complaint Follow-up (TYPE 2 DM) HPI Diabetes complications and/or comorbidity include: s/p gastric sleeve 08/29 (285 lbs prior to surgery), gastroparesis, macular edema (no h/o retinopathy but there was no other reason for ME, will be receiving injections). Current medications: Farxiga 10 mg Ozempic 0.5 mg weekly, tolerating well Novolog via Omnipod insulin pump Basal 12a 0.8, 12p 1.1 IC 8 SF 25 T 100 AIT 4 hrs Also on phentermine, takes intermittently as it can raise her heart rate. Dietary habits: tries to watch, feels hungrier lately Exercise routine: unchanged Home CBG monitoring results: checks blood sugars 4x/day via dexcom. BG Average: 128 mg/dl with: <1% very high 8% high 90% in target range <2% low. Overnight pattern: flat Postprandial pattern: minimal excursions No significant hypoglycemia. Neuropathy: no complaints. Last foot exam: 11/30 Statin therapy: Yes. Atorvastatin 40 mg. Last lipid panel: 09/29. Nephropathy: On MITESH-I / ARB???s: Yes. Losartan 50 mg. Last MA: 06/30. Last creat/GFR: 11/30. Retinopathy: Date of last eye examination: 3 mos ago HTN - on losartan. Wt Readings from Last 3 Encounters: 08/30/22 97.4 kg (214 lb 12.8 oz) 08/29/22 97.2 kg (214 lb 3.2 oz) 06/13/22 95.3 kg (210 lb) Labs: Last A1c: Recent Labs Lab Units 08/30/22 1404 HEMOGLOBIN A1C % 5.4 No lab exists for component: [id number] Hgb A1C 09/22/2019 11.0 10/29/2019 11.0 ! 12/10/2019 8.0 2020 6.7 ! 07/28/2020 6.4 08/11/2020 6.2 (H) 10/27/2020 5.7 03/30/2021 5.6 % 06/22/2021 5.2 09/09/2021 5.6 11/23/2021 5.5 03/29/2022 5.3 Legend: ! Abnormal (H) High Lab Results Component Value Date MICROALBUR 18.3 12/07/2019 Lab Results Component Value Date ALBCREATRATU 44 (H) 06/09/2021 Lab Results Component Value Date MALBCRTRAT 173 (H) 12/07/2019 Lipid profile within the last year: Lab Results Component Value Date CHOL 284 (H) 09/09/2021 Lab Results Component Value Date TRIG See Comment 09/09/2021 Lab Results Component Value Date HDL 43 09/09/2021 Lab Results Component Value Date LDLCALC See Comment 09/09/2021 Review of Systems Constitutional: Negative. Eyes: Negative. Respiratory: Negative. Cardiovascular: Negative. Gastrointestinal: Negative. Endocrine: Negative. Genitourinary: Negative. Skin: Negative. Neurological: Negative. Psychiatric/Behavioral: Negative. Vitals: 08/30/22 1350 BP: 138/90 BP Location: Right arm Patient Position: Sitting Pulse: 82 Resp: 18 Weight: 97.4 kg (214 lb 12.8 oz) Height: 162.6 cm (5' 4 ) Physical Exam Constitutional: Appearance: Normal appearance. [...] hyperglycemia, with long-term current use of insulin ([facility]) ([facility]) (Primary) Assessment & Plan: Chronic problem, stable per A1c. Lows seems typically to be pC when she boluses for more than she ends up eating. We discussed strategies for this. She is interested in trying Mounjaro for weight loss, has tolerated Ozempic 0.5 mg well and stomachissues are actually doing better lately. Start 2.5 [...] do e-learning upgrade but will let us knowif she has any issues. Update routine labs. Orders: - POCT hemoglobin A1c - POCT glucose - Comprehensive metabolic panel; Future - Lipid panel; Future - TSH; Future - Albumin Creatinine Ratio, Urine; Future Hypertension associated with diabetes ([facility]) Assessment & Plan: Controlled on losartan. No changes. Hyperlipidemia associated with type 2 diabetes mellitus ([facility]) Assessment & Plan: Chronic problem. On statin therapy, no changes. Insulin pump in place Assessment & Plan: No pump setting changes. Other orders - insulin pump cart,auto,BT-cntr (Omnipod 5 G6 Intro Kit, Gen 5,) cartridge; Change pod q 3days - insulin pump cart,automated,BT (Omnipod 5 G6 Pods, Gen 5,) cartridge; Change pod q 3 days - insulin lispro (HumaLOG) 100 unit/mL vial for injection; Inject up to 100 units daily via insulinpump - dapagliflozin propanediol (FARXIGA) 10 mg tablet; Take 1 tablet (10 mg total) by mouth daily - tirzepatide (Mounjaro) 2.5 mg/0.5 mL pen injector; Inject 2.5 mg under the skin every 7 days - tirzepatide (Mounjaro) 5 mg/0.5 mL pen injector; Inject 5 mg under the skin every 7 days DELMER Dong documented in this encounter Miscellaneous Notes * Assessment & Plan Note - Deedee Hussein PA - 08/30/2022 4:34 PM CDT Associated Problem(s): Hypertension associated with diabetes (HCC) Controlled on losartan. No changes. * Assessment & Plan Note - Deedee Hussein PA - 08/30/2022 4:34 PM CDT Associated Problem(s): Hyperlipidemia associated with type 2 diabetes mellitus (HCC) Chronic problem. On statin therapy, no changes. * Assessment & Plan Note - Deedee Hussein PA - 08/30/2022 4:32 PM CDT Associated Problem(s): Type 2 diabetes mellitus with hyperglycemia, with long- term current use of insulin (HCC) Chronic problem, stable per A1c. Lows seems typically to be pC when she boluses for more than she ends up eating. We discussed strategies for this. She is interested in trying Mounjaro for weight loss, has tolerated Ozempic 0.5 mg well and stomachissues are actually doing better lately. Start 2.5 [...] do e-learning upgrade but will let us knowif she has any issues. Update routine labs. * Assessment & Plan Note - Deedee Hussein PA - 08/30/2022 4:30 PM CDT Associated Problem(s): Insulin pump in place No pump setting changes. * Addendum Note - Sabine Kendrick - 08/30/2022 2:00 PM CDTAddended by: SABINE KENDRICK on: 09/24/2022 08:36 AM Modules accepted: Orders documented in this encounter Plan of Treatment Not on file documented as of this encounter Procedures Procedure Name Priority Date/Time Associated Diagnosis Comments POCT HEMOGLOBIN A1C Routine 08/30/2022 2 :04 PM CDT Type 2 diabetes mellitus with hyperglycemia, with long-term current use of insulin ([facility]) ([facility]) POCT GLUCOSE Routine 08/30/2022 2:04 PM CDT Type 2 diabetes mellitus with hyperglycemia, with long-term current use of insulin ([facility]) ([facility]) documented in this encounter Results * (ABNORMAL) Comprehensive metabolic panel (09/24/2022 8:39 [...] - 45 Units/L [facility] Blood 09/24/2022 8:3 9 AM CDT 09/24/2022 3:18 PM CDT Deedee DOWELL LAB BLOOD ORDERABLES nal Result [facility] [id number] Department [place] [address] * Lipid panel (09/24/2022 8:39 AM CDT) [facility] Cholesterol 169 30 - 199 mg/dL [facility] Comment: Interpretive Data Ages < or = [...] on 2017. Triglycerides 139 <=149 mg/dL [facility] Comment: Interpretive Data Ages < [...] revised on 2017. Non-HDL Cholesterol 128 mg/dL [facility] Comment: Interpretive Data Ages < or = [...] LAB BLOOD ORDERABLES Fi nal Result [facility] [address] Department [place] [address] * TSH (09/24/2022 8:39 AM CDT) Thyroid Stimulating Hormone 0.67 0.30 - 4.20 mcIUnit/mL [facility] Blood 09/24/2022 8:39 AM CDT 09/24/2022 3:18 PM CDT Result [facility] Deedee DOWELL LAB BLOOD ORDERABLES Fi nal Result Performing Organization Address [facility] Co de Phone Number AILEEN [phone] [address] [facility] [employer] [place] [address] * Albumin Creatinine Ratio, Urine (09/24/2022 8:39 AM CDT) Albumin Ur 23.4 mg/L [facility] Comment: Interpretive Data No reference range established. Current interpretive data was last revised 2018. Creatinine Ur 165.9 mg/dL [facility] Comment: Interpretive Data No reference range established. Current interpretive data was last revised 2018. Albumin Creatinine Ratio, Ur 14 1 - 29 mg/g [facility] Urine 09/24/2022 8:39 AM CDT 09/24/2022 3:18 PM CDT Result [facility] Deedee DOWELL LAB URINE ORDERABLES Fi nal Result Performing Organization Address [facility] de Phone Number AILEEN [phone] [address] [facility] [employer] [place] [address] * POCT glucose (08/30/2022 2:04 PM CDT) Glucose Blood, POC 107 mg/dL Comment:PPG 3 Hrs Capillary blood 08/30/2022 2 :04 PM CDT Result [facility] Deedee DOWELL POINT OF CARE TEST ORDE RABLES Final Result * POCT hemoglobin A1c (08/30/2022 2:04 PM CDT) Hemoglobin A1C, POC 5.4 % Capillary blood 08/30/2022 2 :04 PM CDT Result [facility] Deedee DOWELL POINT OF CARE TEST ORDE RABLES Final Result documented in this encounter Visit Diagnoses Diagnosis Type 2 diabetes mellitus with hyperglycemia, with long-term current use of insulin (HCC)- Primary Hypertension associated with diabetes (HCC) Unspecified essential hypertension Hyperlipidemia associated with type 2 diabetes mellitus (HCC) Insulin pump in place Insulin pump status documented in this encounter Discontinued Medications Medication Sig Discontinue Reason Start Date End Da te semaglutide (Ozempic) 0.25 mg or 0.5 mg(2 mg/1.5 mL) pen injector injection Inject 0.5 mg under the skin every 7 days Alternate therapy 02/27/2022 08/30/2022 rizatriptan (MAXALT) 10 mg tabletIndications:Migra ine Take 1 tablet (10 mg total) by mouth once as needed for migraine May repeat in 2 hours if unresolved. Do not exceed 30 mg in 24 hours. Alternate therapy 08/30/2022 insulin aspart (NovoLOG) 100 unit/mL vial for injection Use up to 160 units per day in insulin pump Reorder 04/25/2021 08/30/2022 dapagliflozin (FARXIGA) 10 mg tablet Take 1 tablet (10 mg total) by mouth daily Reorder 03/29/2022 08/30/2022 documented as of this encounter Historical Medications * This list may reflect changes made after this encounter. oxymetazoline (Rhofade) 1 % cream Rhofade 1 % topical cream olopatadine 0.6 % spray,non-aeroso l olopatadine 0.6 % nasal spray eszopiclone (LUNESTA) 1 mg tablet Take 1 tablet (1 mg total) by mouth daily added in this encounter Care Teams Dog Pound Attendant Relationship Specialty Start Date End Date Deedee Low PA PCP - General 03/13/17 documented as of this encounter
--- OUTSIDE RECORDS SUMMARY | 2024-02-24 17:12 | XMS_ITS | Encounter Summary ---
Author Organization [facility] Address [address] [place] [address] Care Team Providers Care Pocketed Spring Machine Operator Name Role Phone Jennifermary Deedeeblu DOWELL Primary Care Pr ovider Encounter Details Date Type Department Care Team (Late st Contact Info) Description 09/13/2022 Orders Only [facility] Cardiology [address] [place] [phone] Provider, MD Lynn [facility] [place] [address] Social History Tobacco Use Types Packs/Day [...] on file 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 Gender Identity Female 09/21/2019 9:02 PM CDT Sexual Orientation Not on file 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 Not on file Not on file documented as of this encounter Plan of Treatment Not on file documented as of this encounter Procedures Procedure Name Priority Date/Time Associated Diagnosis Comments SCAN - LABS Routine 04/12/2022 1:48 PM CALL CENTER PROFESSIONAL documented in this encounter Results * SCAN - LABS (04/12/2022 1:48 PM CALL CENTER PROFESSIONAL) us Historical Provider Final Res ult documented in this encounter Visit Diagnoses Not on filedocumented in this encounter Care Teams Pocketed Spring 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
--- OUTSIDE RECORDS SUMMARY | 2024-02-24 17:12 | XMS_ITS | Encounter Summary ---
Author Organization [facility] Address [address] [facility] [address] [place] [address] Care Team Providers Care Administrative Services Manager Name Role Phone Deedee Low Primary Care Pr ovider Reason for Referral * Cardiology (Routine) - Closed Specialty Diagnoses / Procedures Referred By Angelita silva Referred To Contact Diagnoses Tachycardia, unspecified Procedures Stress Echo Exercise W Doppler/CF Toney Fernandez MD [address] [address] Phone: tel: fax: [facility] Referral ID Status Reason Start Date Expiration Date Visits Re quested Visits Authorized [id number] Closed 08/29/2022 09/28/2023 1 1 Reason for Visit * Reason Comments New Patient Palpitations * Consultation (Routine) - Closed Specialty Diagnoses / Procedures Referred By Angelita silva Referred To Contact Cardiology Diagnoses Tachycardia, unspecified Deedee Low PA Phone: tel: fax: [facility] Cardiology [address] [address] Phone: tel: fax: Referral ID Status Reason Start Date Expiration Date V isits Requested Visits Authorized [id number] Closed Specialty Services Required 07/13/2022 08/12/2023 1 1 Encounter Details Date Type Department Care Team (Late st Contact Info) Description 08/29/2022 9:00 AM CDT Office Visit [facility] Cardiology at [address] [place] [address] Toney Fernandez MD [address] [facility] [address] [place] [address] Nonsustained ventricular tachycardia (HCC) (Primary Dx); Tachycardia, unspecified; Lipid screening Social History Tobacco Use Types Packs/Day Years [...] on file 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 Gender Identity Female 09/21/2019 9:02 PM CDT Sexual Orientation Not on file 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 Not on file Not on file documented as of this encounter Last Filed Vital Signs Vital Sign Reading Time Taken Comments Blood Pressure 122/80 08/29/2022 9:01 AM CDT Pulse 95 08/29/2022 9:01 AM CDT Temperature - - Respiratory Rate - - Oxygen Saturation 99% 08/29/2022 9:01 AM CDT Inhaled Oxygen Concentration - - Weight 97.2 kg (214 lb 3.2 oz) 08/29/2022 9:01 A M CDT Height 162.6 cm (5' 4 ) 08/29/2022 9:01 AM CDT Body Mass Index 36.77 08/29/2022 9:01 AM CDT documented in this encounter Progress Notes * Toney Fernandez MD - 08/29/2022 9:00 AM CDT [facility] 08/29/2022 Alannah Ruano is a 42 y.o. female [...] her blood pressure is generally nicely controlled. REVIEW OF SYSTEMS General ROS: negative for [...] DAILY PRN, Disp: , Rfl: atorvastatin (LIPITOR) 40 mg tablet, 1 tablet (40 mg total), Disp: , Rfl: blood glucose diagnostic strip, Use to check bg 7 times daily, Disp: 500 each, Rfl: 1 blood-glucose meter [facility] [place] [place], Check bg daily, [...] MOUTH EVERY WEEK DIRECTED, Disp: , Rfl: fexofenadine (OCHOA) 180 mg [...] blood sugar., Disp: 1 each, Rfl: 0 HYDROcodone-chlorpheniramine ER (TUSSIONEX PENNKINETIC) 2-1.6 mg/mL ER suspension, TAKE 5 ML BY MOUTH EVERY 12 HOURS, Disp: , Rfl: insulin aspart (NovoLOG) 100 [...] or vomiting, Disp: 20 tablet, Rfl: 6 OneTouch Delica Plus Lancet 33 gauge misc, [...] DAILY BEFORE BREAKFAST, Disp: 30tablet, Rfl: 0 polyethylene glycol (GoLYTELY) 236-22.74-6.74 -5.86 gram solution, Follow the instructions from 's office not the instructions on the bottle., Disp: 4000 mL, Rfl: 0 propranoloL (INDERAL) 20 mg tablet, Take 1 tablet (20 mg total) by mouth 2 (two) times a day, Disp:, Rfl: semaglutide (Ozempic) 0.25 mg or 0.5 mg(2 mg/1.5 mL) pen injector injection, Inject 0.5 mg under the skin every 7 days, Disp: 1.5 mL, Rfl: 11 topiramate (TOPAMAX) 200 mg tablet, 1 tablet (200 mg total) 2 (two) times a day, Disp: , Rfl: traZODone (DESYREL) 50 mg tablet, Take 1 tablet (50 mg total) by mouth nightly, Disp: , Rfl: azelastine (ASTELIN) 137 mcg (0.1 %) nasal spray, azelastine 137 mcg (0.1 %) nasal spray aerosol [place] 2 sprays every day by nasal route for 31 days., Disp: , Rfl: fenofibrate (TRIGLIDE) 160 mg tablet, Take 1 tablet (160 mg total) by mouth daily (Patient not taking: Reported on 08/29/2022), Disp: , Rfl: hydrOXYzine (ATARAX) 25 mg tablet, Take 1 tablet (25 mg total) by mouth 1-2 nightly (Patient not taking: Reported on 08/29/2022), Disp: , Rfl: linaCLOtide (Linzess) 72 mcg capsule, Take 1 capsule (72 mcg total) by mouth daily (Patient not taking: Reported on 08/29/2022), Disp: 90 capsule, Rfl: 0 rimegepant (NURTEC ODT) tablet,disintegrating, Take 1 tablet (75 mg total) by mouth daily as needed(Patient not taking: Reported on 08/29/2022), Disp: , Rfl: rizatriptan (MAXALT) 10 mg tablet, Take 1 tablet (10 mg total) by mouth once as needed for migraineMay repeat in 2 hours if unresolved. Do not exceed 30 mg in 24 hours. (Patient not taking: Reportedon 08/29/2022), Disp: , Rfl: triamcinolone (KENALOG) 0.1 % ointment, APPLY TOPICALLY TO THE AFFECTED AREA THREE TIMES DAILY (Patient not taking: Reported on 08/29/2022), Disp: , Rfl: ziprasidone (GEODON) 20 mg capsule, Take 1 capsule (20 mg total) by mouth 2 (two) times a day with meals (Patient not taking: Reported on 08/29/2022), Disp: , Rfl: LABS AND OTHER DIAGNOSTIC TESTS Lab Results Component Value Date CHOL 284 (H) 09/09/2021 CHOL 221 (H) 06/09/2021 CHOL 136 08/11/2020 Lab Results Component Value Date HDL 43 09/09/2021 HDL 33 (L) 06/09/2021 HDL 27 (L) 08/11/2020 Lab Results Component Value Date LDLCALC See Comment 09/09/2021 LDLCALC 163 (H) 06/09/2021 Lab Results Component Value Date TRIG See Comment 09/09/2021 TRIG 124 06/09/2021 TRIG 358 (H) 08/11/2020 Lab Results Component Value Date CHOLHDL 7 09/09/2021 CHOLHDL 7 06/09/2021 CHOLHDL 5.0 (H) 08/11/2020 Lab Results Component Value Date WBC 8.0 09/12/2021 HGB 12.3 09/12/2021 HCT 36.5 09/12/2021 MCV 88.4 09/12/2021 No lab exists for component: LABALBU PHYSICAL EXAM Vitals BP 122/80 (BP Location: Left arm, Patient Position: Sitting) Pulse 95 Ht 162.6 cm (5' 4 ) Wt 97.2 kg (214 lb 3.2 oz) SpO2 99% BMI 36.77 kg/m?? Physical Examination: General appearance - alert, [...] no suspicious skin lesions noted ASSESSMENT Alannah was seen today for new patient and palpitations. Diagnoses and all orders for this visit: Tachycardia, unspecified - Ambulatory referral to Cardiology - ECG 12 lead - Stress Echo Exercise W Doppler/CF Nonsustained ventricular tachycardia PLAN/RECOMMENDATIONS Because of her nonsustained ventricular tachycardia occurring in the setting of hypertension and diabetes I am going to recommend a stress echocardiogram to rule out ischemic heart disease. Hopefullythis will be a negative exam I will schedule this on an upcoming Saturday/ when I am in the [place] office. Toney Fernandez MD documented in this encounter Miscellaneous Notes * Addendum Note - Alannah Teixeira MA - 08/29/2022 9:00 AM CDTAddended by: ALANNAH TEIXEIRA on: 09/07/2022 05:37 PM Modules accepted: Orders documented in this encounter Plan of Treatment Not on file documented as of this encounter Procedures Procedure Name Priority Date/Time Associated Diagnosis Comments STRESS ECHO EXERCISE W DOPPLER/CF W CONTRAST Routine 12/20/2022 4:37 PM CDT Tachycardia, unspecified POCT LIPID PANEL Routine 08/29/2022 5:36 PM CDT Lipid screening ECG 12-LEAD Routine 08/29/2022 Tachycardia, unspecified documented in this encounter Results * STRESS ECHO EXERCISE W DOPPLER/CF W CONTRAST (12/20/2022 4:37 PM CDT) Anatomical Region Laterality Modality Ultrasound 12/20/2022 3:22 PM CDT Narrative 12/20/2022 4:46 PM CDT [facility] Cardiology [address], [place] [address] [address] [facility] [address], [place] [address] P:[phone] P:[phone] Echocardiographic Report Patient Name: ALANNAH RUANO A : 1980 Study Date: 12/20/2022 3:22:59 PM Gender: F Tech: YAMIL Location: [place] Ref.Provider: TONEY FERNANDEZ Height(Cm): 163 BSA: 2.05 Weight(Kg): 93 Heart Rate: 84 Quality: Good Order Provider: TONEY FERNANDEZ Procedures: Stress Echo Report: Treadmill stress echocardiogram with Definity contrast. Indications: Tachycardia, Medications: Outpatient Medications albuterol 2.5 mg /3 mL (0.083 %) nebulizer solution albuterol ER (VOSPIRE ER) 8 mg 12 hr tablet atorvastatin (LIPITOR) 40 mg tablet azelastine (ASTELIN) 137 mcg (0.1 %) nasal spray bevacizumab (AVASTIN) 25 mg/mL injection blood glucose diagnostic strip blood-glucose meter misc blood-glucose sensor (Dexcom G6 Sensor) device blood-glucose transmitter (Dexcom G6 Transmitter) device buPROPion (WELLBUTRIN) 100 mg tablet carBAMazepine (TEGretol) 200 mg tablet cetirizine (ZyrTEC) 10 mg tablet dapagliflozin propanediol (FARXIGA) 10 mg tablet diazePAM (VALIUM) 5 mg tablet diphenhydrAMINE (BENADRYL) 25 mg capsule doxycycline 100 mg capsule EPINEPHrine 0.3 mg/0.3 mL auto-injection syringe ergocalciferol (VITAMIN D) 50,000 unit capsule eszopiclone (LUNESTA) 1 mg tablet fenofibrate (TRIGLIDE) 160 mg tablet fexofenadine (OCHOA) 180 mg tablet fluticasone propion-salmeteroL (ADVAIR DISKUS) 250-50 mcg/dose diskus inhaler glucagon (Baqsimi) 3 mg/actuation spray,non-aerosol HYDROcodone-chlorpheniramine ER (TUSSIONEX PENNKINETIC) 2-1.6 mg/mL ER suspension hydrOXYzine (ATARAX) 25 mg tablet insulin lispro (HumaLOG) 100 unit/mL vial for injection insulin pump cart,auto,BT-cntr (Omnipod 5 G6 Intro Kit, Gen 5,) cartridge insulin pump cart,automated,BT (Omnipod 5 G6 Pods, Gen 5,) cartridge insulin pump cart,cont inf,BT (Omnipod Dash Pods, Gen 4,) cartridge ketorolac (ACULAR LS) 0.4 % drops lamoTRIgine (LaMICtal) 100 mg tablet linaCLOtide (LINZESS) 145 mcg capsule losartan (COZAAR) 50 mg tablet montelukast (SINGULAIR) 10 mg tablet olopatadine 0.6 % spray,non-aerosol ondansetron ODT (ZOFRAN-ODT) 4 mg disintegrating tablet OneTouch Delica Plus Lancet 33 gauge misc oxymetazoline (Rhofade) 1 % cream pen needle, diabetic (BD Ultra-Fine Florina Pen Needle) 32 gauge x 5/32 needle phentermine (ADIPEX-P) 37.5 mg tablet polyethylene glycol (GoLYTELY) 236-22.74-6.74 -5.86 gram solution propranoloL (INDERAL) 20 mg tablet prucalopride (Motegrity) [address] (ACIPHEX) 20 mg EC tablet rimegepant (NURTEC ODT) tablet,disintegrating tirzepatide (Mounjaro) 5 mg/0.5 mL pen injector topiramate (TOPAMAX) 200 mg tablet traZODone (DESYREL) 50 mg tablet triamcinolone (KENALOG) 0.1 % ointment ziprasidone (GEODON) 20 mg capsule tirzepatide (Mounjaro) 5 mg/0.5 mL pen injector Clinic-Administered Medications perflutren lipid (DEFINITY) 1.5 mL in sodium chloride 0.9% 10 mL syringe , and Stress test monitored by: Bernarda Méndez. Findings: Stress Echo: Protocol - Mitch Protocol. Exercise Time - 7.15 min. Baseline Heart Rate - 88. Peak Heart Rate - 180. Predicted Maximal Heart Rate - 179. 85% MPHR - 152. Baseline BP - 150/96. Peak BP - 166/90. Rate Pressure Product - 89139. METS Achieved - 10.10. Percent Predicted Maximal HR Achieved - 101 %. Interpretation Site: Exam was interpreted at [facility]. Performance: Below average exercise functional capacity. Hemodynamic Response: Normal blood pressure response. Arrhythmia: Occasional stress-induced premature ventricular contractions. Termination: Back pain. Resting ECG: Normal sinus rhythm. Poor R-wave progression. Exercise ECG: Non-diagnostic ST-T wave changes with exercise. Resting LV Function: Normal left ventricular size, normal systolic function, normal wall thickness with no segmental wall motion abnormalities at rest. Definity contrast agent used to visually enhance endocardial wall motion and contractility. Post Stress LV Function: Post exercise left ventricular global systolic contractility is hyperdynamic, no segmental wall motion abnormalities, and chamber size is smaller. Definity contrast agent used to visually enhance endocardial wall motion and contractility. Global Systolic Function is normal. Conclusions: Non-diagnostic ST-T wave changes with exercise. Normal hemodynamic response to exercise. No exercise induced chest pain. No Echocardiographic evidence of ischemia. Reduced functional capacity. Technically difficult study with limited views. Electronically Signed By: Ke Perez MD 2022-12-20 16:46:05 CDT CC: CC: Procedure Note Calvin Perez MD - 12/20/2022 [facility] Cardiology [address] [facility] [address], [place] [address] [address] [facility] [address], [place] [address] P:[phone] P:[phone] Echocardiographic Report Patient Name: ALANNAH RUANO APatiemariah ID: [id number] : [id number] Date: 12/20/2022 3:22:59 PM Gender: FAccession #: [id number] Tech: Location: [place] Ref.Provider: TONEY FERNANDEZHeight(Cm): 163 BSA: 2.05Weight(Kg): 93 Heart Rate: 84Quality: Good Order Provider: TONEY FERNANDEZ Procedures: Stress Echo Report: Treadmill stress echocardiogram with Definity contrast. Indications: Tachycardia, Medications: Outpatient Medications albuterol 2.5 mg /3 mL (0.083 %) nebulizer solution albuterol ER (VOSPIRE ER) 8 mg 12 hr tablet atorvastatin (LIPITOR) 40 mg tablet azelastine (ASTELIN) 137 mcg (0.1 %) nasal spray bevacizumab (AVASTIN) 25 mg/mL injection blood glucose diagnostic strip blood-glucose meter misc blood-glucose sensor (Dexcom G6 Sensor) device blood-glucose transmitter ([employer] G6 Transmitter) device buPROPion (WELLBUTRIN) 100 mg tablet carBAMazepine (TEGretol) 200 mg tablet cetirizine (ZyrTEC) 10 mg tablet dapagliflozin propanediol (FARXIGA) 10 mg tablet diazePAM (VALIUM) 5 mg tablet diphenhydrAMINE (BENADRYL) 25 mg capsule doxycycline 100 mg capsule EPINEPHrine 0.3 mg/0.3 mL auto-injection syringe ergocalciferol (VITAMIN D) 50,000 unit capsule eszopiclone (LUNESTA) 1 mg tablet fenofibrate (TRIGLIDE) 160 mg tablet fexofenadine (OCHOA) 180 mg tablet fluticasone propion-salmeteroL (ADVAIR DISKUS) 250-50 mcg/dose diskusinhaler glucagon (Baqsimi) 3 mg/actuation spray,non-aerosol HYDROcodone-chlorpheniramine ER (TUSSIONEX PENNKINETIC) 2-1.6 mg/mL ERsuspension hydrOXYzine (ATARAX) 25 mg tablet insulin lispro (HumaLOG) 100 unit/mL vial for injection insulin pump cart,auto,BT-cntr (Omnipod 5 G6 Intro Kit, Gen 5,)cartridge insulin pump cart,automated,BT (Omnipod 5 G6 Pods, Gen 5,) cartridge insulin pump cart,cont inf,BT (Omnipod Dash Pods, Gen 4,) cartridge ketorolac (ACULAR LS) 0.4 % drops lamoTRIgine (LaMICtal) 100 mg tablet linaCLOtide (LINZESS) 145 mcg capsule losartan (COZAAR) 50 mg tablet montelukast (SINGULAIR) 10 mg tablet olopatadine 0.6 % spray,non-aerosol ondansetron ODT (ZOFRAN-ODT) 4 mg disintegrating tablet OneTouch Delica Plus Lancet 33 gauge misc oxymetazoline (Rhofade) 1 % cream pen needle, diabetic (BD Ultra-Fine Florina Pen Needle) 32 gauge x 5/32 needle phentermine (ADIPEX-P) 37.5 mg tablet polyethylene glycol (GoLYTELY) 236-22.74-6.74 -5.86 gram solution propranoloL (INDERAL) 20 mg tablet prucalopride (Motegrity) [address] (ACIPHEX) 20 mg EC tablet rimegepant (NURTEC ODT) tablet,disintegrating tirzepatide (Mounjaro) 5 mg/0.5 mL pen injector topiramate (TOPAMAX) 200 mg tablet traZODone (DESYREL) 50 mg tablet triamcinolone (KENALOG) 0.1 % ointment ziprasidone (GEODON) 20 mg capsule tirzepatide (Mounjaro) 5 mg/0.5 mL pen injector Clinic-Administered Medications perflutren lipid (DEFINITY) 1.5 mL in sodium chloride 0.9% 10 mL syringe , and Stress test monitored by: Beranrda Méndez. Findings: Stress Echo: Protocol - Mitch Protocol. Exercise Time - 7.15 min. Baseline Heart Rate -88. Peak Heart Rate - 180. Predicted Maximal Heart Rate - 179. 85% MPHR - 152. BaselineBP - 150/96. Peak BP - 166/90. Rate Pressure Product - 78948. METS Achieved - 10.10.Percent Predicted Maximal HR Achieved - 101 %. Interpretation Site: Exam was interpreted at [facility]. Performance: Below average exercise functional capacity. Hemodynamic Response: Normal blood pressure response. Arrhythmia: Occasional stress-induced premature ventricular contractions. Termination: Back pain. Resting ECG: Normal sinus rhythm. Poor R-wave progression. Exercise ECG: Non-diagnostic ST-T wave changes with exercise. Resting LV Function: Normal left ventricular size, normal systolic function, normal wallthickness with no segmental wall motion abnormalities at rest. Definity contrast agent usedto visually enhance endocardial wall motion and contractility. Post Stress LV Function: Post exercise left ventricular global systolic contractility ishyperdynamic, no segmental wall motion abnormalities, and chamber size is smaller. Definitycontrast agent used to visually enhance endocardial wall motion and contractility. GlobalSystolic Function is normal. Conclusions: Non-diagnostic ST-T wave changes with exercise. Normal hemodynamic response to exercise. No exercise induced chest pain. No Echocardiographic evidence of ischemia. Reduced functional capacity. Technically difficult study with limited views. Electronically Signed By: Ke Perez MD 2022-12-20 16:46:05 CDT CC: CC: us Toney Fernandez MD CV ECHO PROCEDURES Final Result * POCT lipid panel (08/29/2022 5:36 PM CDT) [facility] Cholesterol, POC 150 mg/dL HDL, POC 33 mg/dL Triglycerides, POC 197 mg/dL LDL Cholesterol POC 78 mg/dL Chol/HDL Ratio, POC 4.6 Non-HDL Cholesterol, POC 118 mg/dL Cholesterol Total, POC 150 mg/dL Capillary blood 08/29/2022 5 :36 PM CDT Toney Fernandez MD POINT OF CARE TEST ORDER TOMMY Final Result * ECG 12 lead (08/29/2022) Toney Fernandez MD ECG ORDERABLES Final Re sult documented in this encounter Visit Diagnoses Diagnosis Nonsustained ventricular tachycardia (HCC)- Primary Tachycardia, unspecified Lipid screening Screening for lipoid disorders documented in this encounter Historical Medications * This list may reflect changes made after this encounter. traZODone (DESYREL) 50 mg tablet Take 1 tablet (50 mg total) by mouth nightly HYDROcodone-chlor pheniramine ER (TUSSIONEX PENNKINETIC) 2-1.6 mg/mL ER suspension TAKE 5 ML BY MOUTH EVERY 12 HOURS 06/27/2022 12/24/2022 added in this encounter Orders Outpatient Referral Count Last Ordered Date Fir st Ordered Date AMB REFERRAL TO CARDIOLOGY 1 08/29/2022 documented in this encounter Care Teams Administrative Services Manager Relationship Specialty Start Date End Date Deedee Low PA PCP - General 03/13/17 documented as of this encounter
--- OUTSIDE RECORDS SUMMARY | 2024-02-24 17:12 | XMS_ITS | Encounter Summary ---
Author Organization [facility] Address [address] [place] [address] Phone Care Team Providers Care Hot Bread Baker Name Role Phone Deedee Low Primary Care Pr ovider Encounter Details Date Type Department Care Team (Late st Contact Info) Description 06/19/2022 Orders Only [facility] Gastroenterology [address] [facility] [address] [place] [address] [place] [address] Yancy Desai MD [address] [place] [address] Other irritable bowel syndrome (Primary Dx) Social [...] on file 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 Gender Identity Female 09/21/2019 9:02 PM CDT Sexual Orientation Not on file 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 Not on file Not on file documented as of this encounter Ordered Prescriptions Prescription Sig Dispense Quantity Refills Last Filled Start Date End Date lubiprostone (AMITIZA) 8 mcg capsuleIndications :Other irritable bowel syndrome Take 1 capsule (8 mcg total) by mouth 2 (two) times a day with meals Take with meals 60 capsule 2 06/19/2022 3 documented in this encounter Plan of Treatment Not on file documented as of this encounter Visit Diagnoses Diagnosis Other irritable bowel syndrome- Primary documented in this encounter Discontinued Medications Medication Sig Discontinue Reason Start Date End Da te prucalopride (MOTEGRITY) 2 mg tablet Take 1 tablet (2 mg total) by mouth daily Alternate therapy 06/13/2022 06/19/2022 documented as of this encounter Care Teams Hot Bread Baker Relationship Specialty Start Date End Date Deedee Low PA PCP - General 03/13/17 documented as of this encounter
--- OUTSIDE RECORDS SUMMARY | 2024-02-24 17:12 | XMS_ITS | Encounter Summary ---
Author Organization [facility] Address [address] [facility] [address] [place] [address] Care Team Providers Care Back End Engineer Name Role Phone Deedee Low Primary Care Pr ovider Reason for Visit * Reason Onset Date Comments Appointment 07/26/2022 07/26/22 Encounter Details Date Type Department Care Team (Late st Contact Info) Description 07/26/2022 Telephone [facility] Diabetes and Endocrinology [address] [place] [phone] Darlin Avendaño, [employer] [address] [facility] [address] [place] [address] Appointment (07/26/22) Social History Tobacco Use Types Packs/Day Years [...] on file 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 mAPPn message also sent to the pt documented in this encounter Plan of Treatment Not on file documented as of this encounter Visit Diagnoses Not on filedocumented in this encounter Care Teams Back End Engineer Relationship Specialty Start Date End Date Deedee Low PA PCP - General 03/13/17 documented as of this encounter
--- OUTSIDE RECORDS SUMMARY | 2024-02-24 17:13 | XMS_ITS | Encounter Summary ---
Author Organization [facility] Address [address] [place] [address] Phone Care Team Providers Care Agricultural Produce Packer Name Role Phone JenniferAmelia hernandezblu DOWELL Primary Care Pr ovider Reason for Referral * Diagnostic Imaging (Routine) - Closed Specialty Diagnoses / Procedures Referred By Contchicho t Referred To Contact Diagnoses Peripheral vision loss, bilateral Procedures ERG Full Field - OU - Both Eyes Basilio Zurita MD [facility] [address] Phone: tel: fax: [facility] (All Locations) Referral ID Status Reason Start Date Expiration Date Visits Re quested Visits Authorized [id number] Closed 06/14/2021 07/14/2022 1 1 Encounter Details Date Type Department Care Team (Late st Contact Info) Description 06/14/2021 Orders Only [facility] Ophthalmology [address] [place] [address] [place] [address] Basilio Zurita MD [facility] [address] Peripheral vision loss, bilateral (Primary Dx) Social History Tobacco Use Types Packs/Day Years Used Date Smoking Tobacco: Former Smokeless Tobacco: Never Comments:smoked for 3 years Alcohol Use Standard Drinks/Week Comments Yes 0 (1 standard drink = 0.6 oz pur e alcohol) PHQ-2 Answer Date Recorded PHQ-2 Total Score (If total score is 3 or more points, staff should administer the PHQ-9) 1 10/27/2020 Comments No Sex and Gender Information Value Date Recorded Sex Assigned at Not on file 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 [employer] Gender Identity Female 09/21/2019 9:02 PM CDT Sexual Orientation Not on file 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 She has a known history of macular edema OU. Full field ERG was performed. ERG: Full field ERG was performed OU with DTL electrodes and Ganzfeld stimulation according to ISCEV standards. After 20 minutes of dark adaptation, a pure cade response was obtained with a dim white light. The light intensity was then increased to obtain a mixed cade-cone signal to dim and bright white lights under scotopic conditions. Light adapted cone responses were elicited by single flash and 30 Hz flicker. Amplitudes and implicit times were recorded. Responses were averaged to minimize noise. Cooperation and fixation were felt to be good for each eye. Results: All responses (cade specific, maximal flash scotopic, photopic, and 30 Hz flicker) were robust and normal OU. Impression: These results indicate normal cade and cone function OU. Clinical correlation is recommended. Thank you so much for referring this patient for electrodiagnostic testing. Please feel free to contact my office if you would like to discuss these results further. Basilio Zurita M.D. Professor, Departments of Ophthalmology and Visual Sciences and Neurology Director, Visual Electrophysiology Service [facility] [employer] [facility] E-mail: [email or web address] Basilio Zurita MD OPHTH ELECTRORETINOG [place] Final Result documented in this encounter Visit Diagnoses Diagnosis Peripheral vision loss, bilateral- Primary Peripheral vision loss, bilateral documented in this encounter Care Teams Agricultural Produce Packer Relationship Specialty Start Date End Date Deedee Low PA PCP - General 03/13/17 documented as of this encounter
--- OUTSIDE RECORDS SUMMARY | 2024-02-24 17:13 | XMS_ITS | Encounter Summary ---
Author Organization [facility] Address [address] [place] [address] Phone Care Team Providers Care Small Products I Assembler Name Role Phone Deedee Low Primary Care Pr ovider Reason for Visit * Consultation (Routine) - Closed Specialty Diagnoses / Procedures Referred By Angelita silva Referred To Contact Speech Therapy Diagnoses Vocal cord dysfunction Romie Shields MD [address] [facility] [address] [place] [address] Phone: tel: fax: [facility] (All Locations) Referral ID Status Reason Start Date Expiration Date V isits Requested Visits Authorized [id number] Closed Specialty Services Required 11/14/2021 12/14/2022 24 24 Encounter Details Date Type Department Care Team (Late st Contact Info) Description 11/16/2021 2:40 PM CDT Therapy [facility] Otolaryngology [facility] Advanced Medicine 11th [place] [address] [place] [id number] Tania Bojorquez, JOBY [address] [place] [address] Dysphonia (Primary Dx); Cough; Vocal cord dysfunction Social History Tobacco Use Types Packs/Day Years Used Date Smoking Tobacco: Former Smokeless Tobacco: Never Comments:smoked for 3 years Alcohol Use Standard Drinks/Week Comments Yes 0 (1 standard drink = 0.6 oz pur e alcohol) AUDIT-C Answer Date Recorded Q1: How often do you have a drink containing alc ohol? 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 adult who presents with complaints of voice, cough, and swallowing challenges, all of which began several years ago. In terms of her voice, she reports voice change (ie reduced vocal strength and endurance) following complicated tonsillectomy in 2004 for which she saw speech therapy with symptom improvement. The patient continues to experience vocal fatigue after prolonged talking. In terms of cough, the patient reports one-off cough and coughing episodes. Cough triggers include talking, cold air, wind blowing, strong smells, hot and cold drinks, drinking without a straw, taking pills, and eating solids. With talking, her cough is one-off in nature and is accompanied by feeling her throat closing up. With swallowing, the patient reports coughing episodes that often result in vomiting and are accompanied by the feeling of something stuck in her throat. The patient has an extensive GI history, including gastroparesis and uncontrolled reflux despite reported consistent adherence to reflux lifestyle modifications and protonix twice daily. VOICE EVALUATION: Clinician???s Perceptual Assessment ([id number]): The Consensus Auditory-Perceptual Evaluation of Voice (CAPE-V) was administered below to subjectively assess overall voice quality severity (Os), roughness (R), breathiness (B), strain (S), habitual speaking pitch (Fo), and habitual speaking loudness (Io). These were determined to be consistent/frequent (C) or infrequent/intermittent (I). Rating of 0-10 = no problem; 10-20 = mild; 21-34= mild to moderate; 35-49= moderate; 50-74= moderate to severe; 75-89= severe; 90-100= profound. This revealed: Os: 10/100, C R: 0/100, C B: 0/100, C S: 10/100, C Fo: 0/100, C Io: 0/100, C CAPE-V Dysphonia Severity Rating (determined by Os above): Mild (10-20) Mild to moderate (21-34) Moderate (35-49) Moderate to severe (50-74) Severe (75-89) Profound (90-100) STIMULABILITY: deferred today secondary to prioritization of additional factors likely contributingto cough and globus IMPRESSIONS & PLAN OF CARE: Alannah Ruano is a 41 y.o. adult who presents with voice, cough, and swallowing challenges. Based on the patient's examination today, the patient is appropriate for continued medical management at this time to assist with reducing cough and swallowing challenges.Once medical management of cough and swallowing has been addressed with primary care physician and GI, she may benefit from voice therapy to further optimize laryngeal biomechanics to further target voice and cough complaints. The patient is amendable to this plan of care. Note dictated with voice recognition software. Mild ibm websphere commerce developer variances may occur. Susie Bojorquez M.S., [facility]WOOD CAR BUILDER documented in this encounter Plan of Treatment Not on file documented as of this encounter Visit Diagnoses Diagnosis Dysphonia- Primary Cough Vocal cord dysfunction Other diseases of vocal cords documented in this encounter Orders Outpatient Referral Count Last Ordered Date Ordered Date AMB REFERRAL ORDER TO SPEECH THERAPY 10/2021 documented in this encounter Care Teams Small Products I Assembler Relationship Specialty Start Date End Date Menossi, Deedee Aylin Kerwin, PA PCP - General 03/13/17 documented as of this encounter
--- OUTSIDE RECORDS SUMMARY | 2024-02-24 17:13 | XMS_ITS | Encounter Summary ---
Author Organization [facility] Address [address] [facility] [address] [place] [address] Care Team Providers Care Program Clinician Name Role Phone Deedee Low Primary Care Pr ovider Reason for Visit * Reason Comments Diabetes Type 2 F/U Encounter Details Date Type Department Care Team (Late st Contact Info) Description 03/29/2022 1:00 PM BROOD HATCHERY MANAGER Office Visit [facility] Diabetes and Endocrinology [address] [place] [phone] [place] [address] [facility] [address] [place] [address] Type 2 diabetes mellitus with [...] on file Legal Sex Female 10:18 AM BROOD HATCHERY MANAGER Gender Identity Female 09/21/2019 9:02 PM CDT Sexual Orientation Not on file 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 Not on file Not on file documented as of this encounter Last Filed Vital Signs Vital Sign Reading Time Taken Comments Blood Pressure 136/86 03/29/2022 1:43 PM BROOD HATCHERY MANAGER Pulse 93 03/29/2022 12:59 PM BROOD HATCHERY MANAGER Temperature - - Respiratory Rate 18 03/29/2022 12:5 9 PM BROOD HATCHERY MANAGER Oxygen Saturation - - Inhaled Oxygen Concentration - - Weight 96.5 kg (212 lb 11.2 oz) 023 12:59 PM BROOD HATCHERY MANAGER Height 163.1 cm (5' 4.2 ) 03/29/2022 12 :59 PM BROOD HATCHERY MANAGER Body Mass Index 36.28 03/29/2022 12:59 PM BROOD HATCHERY MANAGER documented in this encounter Ordered Prescriptions Prescription Sig Dispense Quantity Refills Last Filled Start Date End Date dapagliflozin (FARXIGA) 10 mg tablet Take 1 tablet (10 mg total) by mouth daily 90 tablet 3 03/29/2022 08/30/2022 documented in this encounter Progress Notes * Deedee Hussein PA - 03/29/2022 1:00 PM CST Images from the original note were not included. [facility] ENDOCRINOLOGY Diabetes Follow Up Visit Subjective/Objective Patient ID: Alannah Ruano is a 42 y.o. female who comes in today to our Endocrinology clinic tofollow up for DM management. Chief Complaint Diabetes Type 2 (F/U) HPI Diabetes complications and/or comorbidity include: s/p gastric sleeve 08/29 (285 lbs prior to surgery), gastroparesis, macular edema (no h/o retinopathy but there was no other reason for ME, will be receiving injections). Recent prednisone use x 2 and 2 steroid injections (c-spine, SI) but no significant change. Current medications: Farxiga 10 mg Ozempic 0.5 mg weekly, tolerating well. Some nausea but around her baseline so feels shes's doing ok at this time. Novolog via Omnipod insulin pump Basal 12a 1.0, 12p 1.2 IC 8 SF 25 T 100 AIT 4 hrs Also on phentermine. Dietary habits: tries to go low carb Exercise routine: limited Home CBG monitoring results: dexcom. BG Average: 122 mg/dl with: <1% very high 5% high 94% in target range <2% low. Overnight pattern: flat, sometimes borderline low. Postprandial pattern: sometimes spikes high pC and then comes down, she usually gives extended boluses with 25% delivered at the beginning and 75% delivered over 30 minutes. Neuropathy: no complaints. Last foot exam: 11/30 Statin therapy: Yes. Atorvastatin 20 mg and fenofibrate. Last lipid panel: 09/29. Nephropathy: On MITESH-I / ARB???s: Yes. Lisinopril 10 mg. Last MA: 06/30. Last creat/GFR: 11/30. Retinopathy: Date of last eye examination: 05/30. Wt Readings from Last 3 Encounters: 03/29/22 96.5 kg (212 lb 11.2 oz) 03/22/22 96.9 kg (213 lb 9.6 oz) 11/23/21 96.6 kg (213 lb) Labs: Last A1c: Recent Labs Lab Units 03/29/22 1315 HEMOGLOBIN A1C 5.3 No lab exists for component: [id number] Component Latest Ref Rng & Units 03/30/2021 06/22/2021 09/09/2021 11/23/2021 Hgb A1C 5.6 % 5.2 5.6 5.5 Lab Results Component Value Date MICROALBUR 18.3 [...] Skin: Negative. Neurological: Negative. Psychiatric/Behavioral: Negative. Vitals: 03/29/22 1259 03/29/22 1343 BP: 136/100 136/86 BP Location: Right arm Patient Position: Sitting Pulse: 93 Resp: 18 Weight: 96.5 kg (212 lb 11.2 oz) Height: 163.1 cm (5' 4.2 ) Physical Exam Constitutional: Appearance: Normal appearance. She is obese. HENT: Head: Normocephalic and atraumatic. Neck: Thyroid: [...] hyperglycemia, with long-term current use of insulin ([facility]) ([facility]) (Primary) Assessment & Plan: Chronic problem, very well controlled. Will lower BR per below. Also dicussed her bolusing habits. For meals with more carbs should try to deliver at least 50% of the bolus at time of eating to prevent PPG spike. Orders: - POCT glucose - POCT hemoglobin A1c Hyperlipidemia associated with type 2 diabetes mellitus ([facility]) Assessment & Plan: Chronic problem. On statin therapy, no changes. Hypertension associated with diabetes ([facility]) Assessment & Plan: Chronic problem, improved on recheck. Continue losartan. Morbid (severe) obesity due to excess calories ([facility]) Assessment & Plan: Chronic problem. Try lowering insulin. Will leave Ozempic dose same for now but she'll let us know if she wants to try a higher dose. Other orders - dapagliflozin (FARXIGA) 10 mg tablet; Take 1 tablet (10 mg total) by mouth daily DELMER Dong D HATCHERY MANAGER documented in this encounter Miscellaneous Notes * Assessment & Plan Note - Deedee Hussein PA - 03/29/2022 2:34 PM BROOD HATCHERY MANAGER Associated Problem(s): Type 2 diabetes mellitus with hyperglycemia, with long- term current use of insulin (HCC) Chronic problem, very well controlled. Will lower BR per below. Also dicussed her bolusing habits. For meals with more carbs should try to deliver at least 50% of the bolus at time of eating to prevent PPG spike. D HATCHERY MANAGER * Assessment & Plan Note - Deedee Hussein PA - 03/29/2022 2:33 PM BROOD HATCHERY MANAGER Associated Problem(s): Morbid (severe) obesity due to excess calories (HCC) Chronic problem. Try lowering insulin. Will leave Ozempic dose same for now but she'll let us know if she wants to try a higher dose. D HATCHERY MANAGER * Assessment & Plan Note - Deedee Hussein PA - 03/29/2022 2:33 PM BROOD HATCHERY MANAGER Associated Problem(s): Hyperlipidemia associated with type 2 diabetes mellitus (HCC) Chronic problem. On statin therapy, no changes. D HATCHERY MANAGER * Assessment & Plan Note - Deedee Hussein PA - 03/29/2022 2:32 PM BROOD HATCHERY MANAGER Associated Problem(s): Hypertension associated with diabetes (HCC) Chronic problem, improved on recheck. Continue losartan. D HATCHERY MANAGER * Assessment & Plan Note - Deedee Hussein PA - 03/29/2022 1:34 PM BROOD HATCHERY MANAGER Associated Problem(s): Insulin pump in place Change BR to 12a 0.8, 12p 1.1 D HATCHERY MANAGER documented in this encounter Plan of Treatment Not on file documented as of this encounter Procedures Procedure Name Priority Date/Time Associated Diagnosis Comments POCT HEMOGLOBIN A1C Routine 03/29/2022 1 :15 PM BROOD HATCHERY MANAGER Type 2 diabetes mellitus with hyperglycemia, with long-term current use of insulin ([facility]) (HCC) POCT GLUCOSE Routine 03/29/2022 1:15 PM BROOD HATCHERY MANAGER Type 2 diabetes mellitus with hyperglycemia, with long-term current use of insulin ([facility]) ([facility]) documented in this encounter Results * POCT hemoglobin A1c (03/29/2022 1:15 PM BROOD HATCHERY MANAGER) Hemoglobin A1C, POC 5.3 Blood 03/29/2022 1:15 PM BROOD HATCHERY MANAGER Deedee DOWELL POINT OF CARE TEST ORDE RABLES Final Result * (ABNORMAL) POCT glucose (03/29/2022 1:15 PM BROOD HATCHERY MANAGER) Glucose Blood, POC 160 mg/dL Comment:Ate 30 Minutes ago Blood 03/29/2022 1:15 PM BROOD HATCHERY MANAGER Deedee DOWELL POINT OF CARE TEST ORDE RABLES Final Result documented in this encounter Visit Diagnoses Diagnosis Type 2 diabetes mellitus with hyperglycemia, with long-term current use of insulin (HCC)- Primary Hyperlipidemia associated with type 2 diabetes mellitus (HCC) Hypertension associated with diabetes (HCC) Unspecified essential hypertension Morbid (severe) obesity due to excess calories ([facility]) documented in this encounter Discontinued Medications Medication Sig Discontinue Reason Start Date End Da te dapagliflozin (FARXIGA) 10 mg tablet Take 1 tablet (10 mg total) by mouth daily Reorder 06/22/2021 03/29/2022 documented as of this encounter Care Teams Program Clinician Relationship Specialty Start Date End Date Deedee Low PA PCP - General 03/13/17 documented as of this encounter
--- OUTSIDE RECORDS SUMMARY | 2024-02-24 17:13 | XMS_ITS | Encounter Summary ---
Author Organization [facility] Address [address] [place] [address] Phone Care Team Providers Care Subject Scientific Research Name Role Phone Deedee Low Primary Care Pr ovider Encounter Details Date Type Department Care Team (Late st Contact Info) Description 07/12/2021 Telephone [facility] Ophthalmology [address] [facility] 6th [place] [address] Chalo Santiago MD [address] [address] Social History Tobacco Use Types Packs/Day Years [...] on file Legal Sex Female 10:18 AM CAP 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 We will plan to see her in August. She will see Dr. Seth next month for macular edema. documented in this encounter Plan of Treatment Not on file documented as of this encounter Visit Diagnoses Not on filedocumented in this encounter Care Teams Subject Scientific Research Relationship Specialty Start Date End Date Deedee Low PA PCP - General 03/13/17 documented as of this encounter
--- OUTSIDE RECORDS SUMMARY | 2024-02-24 17:13 | XMS_ITS | Encounter Summary ---
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; Mixed hyperlipidemia Social History Tobacco Use Types Packs/Day Years [...] on file 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 Gender Identity Female 09/21/2019 9:02 PM CDT Sexual Orientation Not on file Occupation Industry Job Start Date Job End Date [employer] Not on file Not on file Not on file documented as of this encounter Plan of Treatment Not on file documented as of this encounter Procedures Procedure Name Priority Date/Time Associated Diagnosis Comments EGFR Routine 06/09/2021 8:55 AM CDT Other terminal supervisor (current) drug therapy DIFFERENTIAL AUTO Routine 06/09/2021 8:5 5 AM CDT Other alf (current) drug therapy URINALYSIS AND REFLEX TO MICROSCOPIC AND CULTURE Routine 06/09/2021 8:55 AM CDT Other alf (current) drug therapy CBC WITH AUTO DIFFERENTIAL Routine 06/09/2021 8:55 AM CDT Other alf (current) drug therapy PROLACTIN Routine 06/09/2021 8:55 AM CDT Irregular menstrual cycle PROGESTERONE Routine 06/09/2021 8:55 AM CDT Irregular menstrual cycle INSULIN, TOTAL Routine 06/09/2021 8:55 AM CDT ESTRADIOL Routine 06/09/2021 8:55 AM CDT Irregular menstrual cycle TESTOSTERONE, TOTAL AND FREE, SERUM Routine 06/09/2021 8:55 AM CDT Irregular menstrual cycle TSH Routine 06/09/2021 8:55 AM CDT Other alf (current) drug therapy T4, FREE Routine 06/09/2021 8:55 AM CDT Other alf (current) drug therapy LUTEINIZING HORMONE (LH) Routine 06/09/2021 8:55 AM CDT Irregular menstrual cycle FOLLICLE STIMULATING HORMONE Routine 06/09/2021 8:55 AM CDT Irregular menstrual cycle LIPID PANEL Routine 06/09/2021 8:55 AM CDT Mixed hyperlipidemia COMPREHENSIVE METABOLIC PANEL Routine 06/09/2021 8:55 AM CDT Other terminal supervisor (current) 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 73 m2 AILENE ZHAO Comment: Interpretive Data Reference Interval Normal [...] interpretive data was last reviewed 2021. Blood 06/09/2021 8:55 AM CDT 06/09/2021 3:48 PM CDT Deedee DOWELL LAB BLOOD ORDERA BLES Final Result AILEEN [address] [place] [address] * (ABNORMAL) Differential, auto (06/09/2021 8:55 AM CDT) Neutrophil abs 7.2(H) 1.7 - 6.5 K/cumm [facility] Imm gran abs 0.0 0.0 - 0.1 K/cumm [facility] Lymphocyte abs 2.7 0.8 - 3.3 K/cumm [facility] Monocyte abs 0.6 0.2 - 0.8 K/cumm [facility] Eosinophil abs 0.2 0.0 - 0.5 K/cumm [facility] Basophil abs 0.1 0.0 - 0.1 K/cumm [facility] Neutrophil pct 66.4 % [facility] Comment: Interpretive Data Percent cell count reference ranges are not reported, since discordance with absolute values may lead to misinterpretation of CBC data. Current Interpretive Data was last revised on 2017. Imm gran pct 0.4 % [facility] Comment: Interpretive Data Percent cell count reference ranges are not reported, since discordance with absolute values may lead to misinterpretation of CBC data. Current Interpretive Data was last revised on 2017. Lymphocyte pct 24.9 % [facility] Comment: Interpretive Data Percent cell count reference ranges are not reported, since discordance with absolute values may lead to misinterpretation of CBC data. Current Interpretive Data was last revised on 2017. Monocyte pct 5.8 % [facility] Comment: Interpretive Data Percent cell count reference ranges are not reported, since discordance with absolute values may lead to misinterpretation of CBC data. Current Interpretive Data was last revised on 2017. Eosinophil pct 1.9 % [facility] Comment: Interpretive Data Percent cell count reference ranges are not reported, since discordance with absolute values may lead to misinterpretation of CBC data. Current Interpretive Data was last revised on 2017. Basophil pct 0.6 % AILEEN ZHAO Comment: Interpretive Data Percent cell count reference ranges are not reported, since discordance with absolute values may lead to misinterpretation of CBC data. Current Interpretive Data was last revised on 2017. Blood 06/09/2021 8:55 AM CDT 06/09/2021 3:48 PM CDT us Deedee DOWELL LAB BLOOD ORDERA BLES Final Result AILEEN ZHAO [address] Department [place] [address] * (ABNORMAL) Lipid panel (06/09/2021 8:55 AM CDT) Cholesterol 221(H) 30 - 199 mg/dL AILEEN ZHAO Comment: [...] Data was last revised on 2017. Triglycerides 124 <=149 mg/dL AILEEN ZHAO Comment: Interpretive Data [...] Data was last revised on 2017. HDL 33(L) >=40 mg/dL AILEEN Comment: Interpretive Data Ages [...] was last revised on 2017. LDL, calculated 163(H) <=129 mg/dL AILEEN Comment: Interpretive Data Ages [...] was last revised on 2017. Non-HDL Cholesterol 188 mg/dL [facility] Comment: Interpretive Data Ages [...] was last revised on 2017. Chol/HDL ratio 7 [facility] Blood (Blood, Venous) 06/09/2021 8:55 AM CDT 06/09/2021 3:48 PM CDT Narrative [facility] - 06/09/2021 4:41 PM CDT PLEASE FAX ORDERS TO DELMER BELL [phone] Deedee DOWELL LAB BLOOD ORDERA BLES Final Result [facility] [address] [place] [address] * Urinalysis reflex to microscopic and culture Urine (06/09/2021 8:55 AM CDT) Color, ur Yellow Yellow [facility] Clarity, ur Clear Clear [facility] Specific gravity, ur 1.012 1.003 - 1.030 [facility] pH, urine 6.0 [facility] Protein, ur ql Negative Negative [facility] Glucose, ur ql Negative Negative [facility] Ketones, ur Negative Negative [facility] Bilirubin, ur Negative Negative [facility] Blood, ur Negative Negative [facility] Urobilinogen, ur <2.0 <2.0 mg/dL [facility] Nitrite, ur Negative Negative [facility] Leukocyte esterase, ur Negative Negative [facility] UA reflex comment Reflex conditions for microscopic UA and culture not met. [facility] Urine 06/09/2021 8:55 AM CDT 06/09/2021 3:48 PM CDT Narrative [facility] - 06/09/2021 4:23 PM CDT PLEASE FAX ORDERS TO DELMER BELL [phone] Urine pH is affected by diet, medications, systemic acid-base disturbances, and renal tubular function. ??pH may affect urinary stone formation. ??For example, urine pH below 6.0 may help reduce the tendency for calcium phosphate stones and pH greater than 6.0 may reduce the tendency for uric acid stone formation. Source: [place]. Last revised 03-21-2017 us Deedee DOWELL LAB MICROBIOLOGY - GENERAL ORDERABLES Final Result [facility] [address] Department [place] [address] * Comprehensive metabolic panel (06/09/2021 8:55 AM CDT) Sodium 139 135 - 145 mmol/L [facility] Potassium, pl 4.4 3.3 - 4.9 mmol/L [facility] Chloride 102 97 - 110 mmol/L [facility] CO2 27 22 - 32 mmol/L [facility] Anion gap 10 2 - 15 mmol/L [facility] BUN 11 8 - 25 mg/dL [facility] Creatinine 0.66 0.60 - 1.10 mg/dL [facility] Glucose 87 70 - 199 mg/dL [facility] Comment: Interpretive Data Fasting glucose >/= 126 [...] classification and Diagnosis of Diabetes Diabetes Care 2017;40 (Suppl. 1):S11. Current interpretive data was last revised 2017. Calcium 10.2 8.5 - 10.3 mg/dL [facility] Bilirubin, total 0.4 0.1 - 1.2 mg/dL [facility] Protein, pl 7.0 6.5 - 8.5 g/dL [facility] Albumin 4.4 3.5 - 5.0 g/dL [facility] Alk phos 74 40 - 130 Units/L [facility] ALT 23 7 - 45 Units/L [facility] AST 19 10 - 45 Units/L [facility] Blood (Blood, Venous) 06/09/2021 8:55 AM CDT 06/09/2021 3:48 PM CDT Narrative [facility] - 06/09/2021 4:41 PM CDT PLEASE FAX ORDERS TO DELMER BELL [phone] us Deedee DOWELL LAB [place]LOOD [place] [address] [address] Department [place] [address] * (ABNORMAL) CBC with auto differential (06/09/2021 8:55 AM CDT) WBC 10.8(H) 3.8 - 9.9 K/cumm [facility] Hgb 15.1 11.9 - 15.5 g/dL [facility] Hct 45.6(H) 35.6 - 45.5 % [facility] Plt 277 150 - 400 K/cumm [facility] MPV 9.8 9.1 - 12.3 fL [facility] RBC 5.06 3.90 - 5.20 M/cumm [facility] MCV 90.1 81.3 - 96.4 fL [facility] MCH 29.8 27.1 - 33.3 pg [facility] MCHC 33.1 32.3 - 35.7 g/dL [facility] RDW CV 13.5 11.1 - 14.9 % [facility] RDW SD 44.6 35.7 - 48.1 fL [facility] NRBC abs 0.00 0.00 - 0.01 K/cumm [facility] Blood 06/09/2021 8:55 AM CDT 06/09/2021 3:48 PM CDT Narrative AILEEN - 06/09/2021 4:24 PM CDT PLEASE FAX ORDERS TO DELMER BELL [phone] us Deedee DOWELL LAB BLOOD ORDERA BLES Final Result Performing Organization Address City/[facility]/ZIP Co de Phone Number AILEEN [address] [address] [facility] [place] [employer] [place] [address] * TSH (06/09/2021 8:55 AM CDT) Thyroid Stimulating Hormone 0.84 0.30 - 4.20 mcIUnit/mL AILEEN Blood (Blood, Venous) 06/09/2021 8:55 AM CDT 06/09/2021 3:48 PM CDT Narrative AILEEN - 06/09/2021 5:12 PM CDT PLEASE FAX ORDERS TO DELMER BELL [phone] us Deedee DOWELL LAB BLOOD ORDERA BLES Final Result Performing Organization Address [facility] Co de Phone Number AILEEN [address] [address] [facility] [place] [place] [address] * T4, free (06/09/2021 8:55 AM CDT) Free T4 1.22 0.90 - 1.70 ng/dL AILEEN Blood (Blood, Venous) 06/09/2021 8:55 AM CDT 06/09/2021 3:48 PM CDT Narrative AILEEN - 06/09/2021 5:12 PM CDT PLEASE FAX ORDERS TO DELMER BELL [phone] us Deedee DOWELL LAB BLOOD ORDERA BLES Final Result Performing Organization Address City/[facility] Co de Phone Number AILEEN [address] [address] Department [place] [address] * Follicle stimulating hormone (06/09/2021 8:55 AM CDT) FSH 5.7 IUnits/L AILEEN ZHAO Comment: Interpretive Data Male: Adults: ?1.5 - 12.4 IUnits/L Female: ?? Follicular: ?3.5 - 12.5 IUnits/L Ovulation: ? 4.7 - 21.5 IUnits/L Luteal: ?1.7 - 7.7 IUnits/L Postmenopausal: 25.8 - 134.8 IUnits/L Current interpretive data was last revised 2015. Testing performed by: [facility], [address] [place]., [address] Blood (Blood, Venous) 06/09/2021 8:55 AM CDT 06/12/2021 9:38 AM CDT Narrative AILEEN ZHAO - 06/12/2021 10:22 AM CDT PLEASE FAX ORDERS TO DELMER BELL [phone] Deedee DOWELL LAB BLOOD ORDERA BLES Final Result AILEEN [address] [place] [address] * LH (06/09/2021 8:55 AM CDT) LH 9.5 IUnits/L AILEEN Comment: Interpretive Data Males: ??Adults: ? 1.7 - 8.6 ?? IUnits/L Females: ?Follicular: ? 2.4 - 12.6 ??IUnits/L ??Ovulation: ? 14.0 - 95.6 ??IUnits/L ?Luteal: ? 1.0 - 11.4 ??IUnits/L ??Postmenopausal: 7.7 - 58.5 ??IUnits/L Current interpretive data was last revised on 2018. Testing performed by: [facility], [address] [place]., [address] Blood (Blood, Venous) 06/09/2021 8:55 AM CDT 06/12/2021 9:38 AM CDT Narrative AILEEN - 06/12/2021 10:22 AM CDT PLEASE FAX ORDERS TO DELMER BELL [phone] Deedee DOWELL LAB BLOOD ORDERA BLES Final Result Performing Organization Address City/[facility]/ZIP Co de Phone Number AILEEN [address] [place] [address] * Prolactin (06/09/2021 8:55 AM CDT) Prolactin 10.8 4.8 - 23.3 ng/mL AILEEN Blood (Blood, Venous) 06/09/2021 8:55 AM CDT 06/09/2021 3:48 PM CDT Narrative AILEEN - 06/09/2021 5:15 PM CDT PLEASE FAX ORDERS TO DELMER BELL [phone] us Deedee DOWELL LAB BLOOD ORDERA BLES Final Result AILEEN [address] [facility] [address] [address] * Estradiol (06/09/2021 8:55 AM CDT) Estradiol 90.9 pg/mL [facility] Comment: Interpretive Data Male: ?11 - 43 pg/mL Female: ??Follicular ? 31 - 90 pg/mL ??Ovulation ?60 - 533 pg/mL ??Luteal ? 60 - 232 pg/mL ??Postmenopausal ?? < 50 ??pg/mL Patients treated with Fluvestrant (Faslodex) should be tested using an alternate assay such as LC-MS. Contact the [facility], , to request analysis by LC-MS. Current interpretive data was last revised 2020. Testing performed by: [facility], [address] [place]., [address] Blood (Blood, Venous) 06/09/2021 8:55 AM CDT 06/12/2021 9:38 AM CDT Narrative AILEEN ZHAO - 06/12/2021 10:22 AM CDT PLEASE FAX ORDERS TO DELMER BELL [phone] Deedee DOWELL LAB BLOOD ORDERA BLES Final Result AILEEN [address] Department [place] [address] * Progesterone (06/09/2021 8:55 AM CDT) [facility] Progesterone 0.93 ng/mL AILEEN ZHAO Comment: Interpretive Data Males: ?<0.15 ng/mL Females: ??Follicular ?<0.20 ng/mL ??Ovulation ? <4.1 ng/mL ??Luteal ?4.1 - ??14.5 ng/mL ??1st Trimester ?? 11.0 - ??44.0 ng/mL ??2nd Trimester ?? 25.0 - ??83.0 ng/mL ??3rd Trimester ?? 59.0 - 214.0 ng/mL ??Postmenopausal ??<0.13 ng/mL Current interpretive data was last revised 2021. Testing performed by: [facility], [address] [place] [address]., [address] Blood (Blood, Venous) 06/09/2021 8:55 AM CDT 06/12/2021 9:38 AM CDT Narrative AILEEN ZHAO - 06/12/2021 10:22 AM CDT PLEASE FAX ORDERS TO DELMER BELL [phone] Deedee DOWELL LAB BLOOD ORDERA BLES Final Result AILEEN [address] [address] Department [place] [address] * Testosterone, Total and Free, Serum (06/09/2021 8:55 AM CDT) [facility] Testosterone 15 8 - 60 ng/dL AILEEN Comment: ADDITIONAL INFORMATION Testing performed by Liquid Chromatography-Tandem Mass Spectrometry (LC-MS/MS). This test was developed and its performance characteristics determined by [facility] in a manner consistent with CLIA requirements. This test has not been cleared or approved by the U.S. Food and Drug Administration. Test Performed by: [facility] [place] [address] [employer] Sales Representative: Alexander Cerrato M.D. Ph.D.; CLIA# [id number] Testosterone, free 0.36 0.06 - 0.98 ng/dL AILEEN Comment: ADDITIONAL INFORMATION Testing performed by [facility]. This test was developed and its performance characteristics determined by [facility] in a manner consistent with CLIA requirements. This test has not been cleared or approved by the U.S. Food and Drug Administration. Blood (Blood, Venous) 06/09/2021 8:55 AM CDT 06/09/2021 3:48 PM CDT Narrative AILEEN ZHAO - 06/20/2021 9:35 AM CDT PLEASE FAX ORDERS TO DELMER BELL [phone] us Deedee DOWELL LAB BLOOD ORDERA BLES Final Result AILEEN ZHAO [address] [place] [address] documented in this encounter Visit Diagnoses Diagnosis Irregular menstrual cycle Class 1 obesity with body mass index (BMI) of 30.0 to 30.9 in adult, unspecified obesity type, unspecified whether serious comorbidity present Other alf (current) drug therapy Mixed hyperlipidemia documented in this encounter Care Teams Head Of Housekeeping Relationship Specialty Start Date End Date Deedee Low PA PCP - General 03/13/17 documented as of this encounter
--- OUTSIDE RECORDS SUMMARY | 2024-02-24 17:13 | XMS_ITS | Encounter Summary ---
Author Organization [facility] Address [address] [place] [address] Phone Care Team Providers Care Donor Services Specialist Name Role Phone JennifermaryDeedee Primary Care Pr ovider Reason for Referral * Diagnostic Imaging (Routine) - Closed Specialty Diagnoses / Procedures Referred By Contac t Referred To Contact Diagnoses Decreased peripheral vision of both eyes Procedures OCT, Retina - OU - Both Eyes Basilio Zurita MD [address] [place] [address] Phone: tel: fax: [facility] (All Locations) Referral ID Status Reason Start Date Expiration Date Visits Re quested Visits Authorized [id number] Closed 08/24/2021 09/23/2022 1 1 * Diagnostic Imaging (Routine) - Closed Specialty Diagnoses / Procedures Referred By Contac t Referred To Contact Diagnoses Decreased peripheral vision of both eyes Procedures OCT, Optic Nerve - OU - Both Eyes Basilio Zurita MD [address] [place] [address] Phone: tel: fax: [facility] (All Locations) Referral ID Status Reason Start Date Expiration Date Visits Re quested Visits Authorized [id number] Closed 08/24/2021 09/23/2022 1 1 * Diagnostic Imaging (Routine) - Closed Specialty Diagnoses / Procedures Referred By Angelita t Referred To Contact Diagnoses Decreased peripheral vision of both eyes Procedures Watkins Visual Field - OU - Both Eyes Basilio Zurita MD [address] [address] Phone: tel: fax: [facility] (All Locations) Referral ID Status Reason Start Date Expiration Date Visits Re quested Visits Authorized [id number] Closed 08/24/2021 09/23/2022 1 1 Encounter Details Date Type Department Care Team (Late st Contact Info) Description 08/24/2021 Orders Only [facility] Ophthalmology [address] [place] [address] Health [address] [place] [address] Basilio Zurita MD [address] [id number] Decreased peripheral vision of both eyes (Primary Dx) Social History Tobacco Use Types [...] on file 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 Scan locations included subfoveal. Macular thickness was 439 micrometers. Left Eye Quality was good. Scan locations included subfoveal. Macular thickness was 491 mircometers. Notes Macular edema OU. ??Essentially unchanged compared with prior scan OU. Basilio Zurita MD OPHTH TOMOGRAPHY Fin al Result * OCT, Optic Nerve - OU - Both Eyes (08/25/2021 8:55 AM CDT) RNFL OS 82 micrometers CONTINUUM RNFL OD 83 micrometers CONTINUUM Anatomical Region Laterality Modality Head Other Narrative 08/25/2021 2:43 PM CDT Right Eye Reliability was good. Average RNFL thickness 83 micrometers. Left Eye Reliability was good. Average RNFL thickness 82 micrometers. Notes Stable and normal retinal nerve fiber layer thickness OU. Basilio Zurita MD OPHTH TOMOGRAPHY Fin al Result * Watkins Visual Field - OU - Both Eyes (08/25/2021 8:54 AM CDT) Anatomical Region Laterality Modality Head Other Narrative 08/25/2021 2:42 PM CDT Right Eye Fixation was good. Cooperation was good. Reliability was good. Progression has improved. Left Eye Fixation was good. Cooperation was good. Reliability was good. Progression has improved. Notes Moderate generalized depression and constriction OU. ??Improved OU. Basilio Zurita MD OPHTH VISUAL FIELD F inal Result documented in this encounter Visit Diagnoses Diagnosis Decreased peripheral vision of both eyes- Primary Decreased peripheral vision of both eyes Decreased peripheral vision of both eyes documented in this encounter Care Teams Donor Services Specialist Relationship Specialty Start Date End Date Deedee Low PA PCP - General 03/13/17 documented as of this encounter
--- OUTSIDE RECORDS SUMMARY | 2024-02-24 17:13 | XMS_ITS | Encounter Summary ---
Author Organization [facility] Address [address] [place] [address] Phone Care Team Providers Care Straight Tooth Gear Generator Operator Name Role Phone Deedee Low Primary Care Pr ovider Encounter Details Date Type Department Care Team (Late st Contact Info) Description 03/22/2022 Telephone [facility] ([facility]) - [facility] [address] [facility] [address]th [place] [address] [place] [address] Romie Shields MD [address] [facility] [address] [place] [address] Social History Tobacco Use Types Packs/Day Years [...] on file 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 Pt stated that works great! Pt asked if she needed to do anything to prepare for this visit.I spoke with natalie and she will call the pt with this information. ----- Message from JOBY Madison sent at 03/22/2022 11:10 AM MUTUAL FUND ACCOUNTANT ----- Regarding: RE: MBS 05/03 would work. I have openings at 10:30, 11:00 or 11:30 am. Let me know what time works best to coordinate with f/u appt with Dr. Shields. Thanks, Natalie ----- Message ----- From: Kathy Rahman CMA Sent: 03/22/2022 10:01 AM MUTUAL FUND ACCOUNTANT To: Hal Rascon Sue, # Subject: [facility] Almita Sheriff, Dr. Shields asked to get a MBS on this pt on a and follow up with him the same day. He said it's no vazquez so about 6 weeks out would be good. The pt is not available on 03/29, 04/19, or 05/31 I was looking at the calender and I think 04/26 or 05/03 would be good days to aim for if possible. Let me know if I can help at all. Kathy AL FUND ACCOUNTANT AL FUND ACCOUNTANT AL FUND ACCOUNTANT documented in this encounter Plan of Treatment Not on file documented as of this encounter Visit Diagnoses Not on filedocumented in this encounter Care Teams Straight Tooth Gear Generator Operator Relationship Specialty Start Date End Date Deedee Low PA PCP - General 03/13/17 documented as of this encounter
--- OUTSIDE RECORDS SUMMARY | 2024-02-24 17:13 | XMS_ITS | Encounter Summary ---
Author Organization [facility] Address [address] [place] [address] Care Team Providers Care Audit Reviewer Name Role Phone Deedee Low Primary Care Pr ovider Encounter Details Date Type Department Care Team (Late st Contact Info) Description 06/27/2021 Telephone [facility] [address] [place] [id number] [place] [address] [facility] [address] [place] [address] Social History Tobacco Use Types Packs/Day [...] on file 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 Stating Farxiga 10 mg is not covered by her insurance. Called to her Rx member service/[facility] - Pauline [phone] to start a PA. PA started Ref # [id number] documented in this encounter Plan of Treatment Not on file documented as of this encounter Visit Diagnoses Not on filedocumented in this encounter Care Teams Audit Reviewer Relationship Specialty Start Date End Date Deedee Low PA PCP - General 03/13/17 documented as of this encounter
--- OUTSIDE RECORDS SUMMARY | 2024-02-24 17:13 | XMS_ITS | Encounter Summary ---
Author Organization [facility] Address [address] [place] [address] Care Team Providers Care Form Presser Name Role Phone Deedee Low Primary Care Pr ovider Reason for Visit * Reason Onset Date Comments Med Management 01/01/2022 Prior Auth 01/01/2022 Dexcom Encounter Details Date Type Department Care Team (Late st Contact Info) Description 01/01/2022 Telephone [facility] [address] [facility] [address] [place] [address] [place] [id number] [place] [address] [address] [place] [address] Med Management; Prior Auth (Dexcom) Social History Tobacco Use [...] on file 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 Gender Identity Female 09/21/2019 9:02 PM CDT Sexual Orientation Not on file 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 Not on file Not on file documented as of this encounter Ordered Prescriptions Prescription Sig Dispense Quantity Refills Last Filled Start Date End Date blood-glucose transmitter (Dexcom G6 Transmitter) device Change q 3 months 1 each 3 01/01/2022 01/21/2023 blood-glucose sensor (Dexcom G6 Sensor) device Change q 10 days 9 each 3 01/01/2022 10/17/2022 documented in this encounter Miscellaneous Notes * Telephone Encounter - Alex Lux MA - 01/03/2022 10:49 AM CDT Prior auth started on [facility] Dexcom G6 Transmitter Kaur: [id number] Dexcom G6 Sensor Kaur: [id number] Approval for transmitter received from [facility] Status: Approved Review Type: Prior Auth Coverage Start Date:01/03/2022 Coverage End Date: 01/03/2023 * Addendum Note - Max Thorpe PA - 01/01/2022 10:51 AM CDTAddended by: MAX THORPE on: 01/01/2022 10:51 AM Modules accepted: Orders * Telephone Encounter - Max Thorpe PA - 01/01/2022 10:51 AM CDT Both prescriptions sent. * Telephone Encounter - Evan Martin - 01/01/2022 10:37 AM CDT LV 11/23/2021 [place] 03/29/2022 Incoming call from patient Patient is requesting a refill on Dexcom Transmitter and Sensors Pt states Both will require a [facility] to send script To alex DOWELL documented in this encounter Plan of Treatment Not on file documented as of this encounter Visit Diagnoses Not on filedocumented in this encounter Discontinued Medications Medication Sig Discontinue Reason Start Date End Da te blood-glucose sensor (Dexcom G6 Sensor) device Change q 10 days Reorder 09/27/202101/01 blood-glucose transmitter (Dexcom G6 Transmitter) device Change q 3 months Reorder 09/27/2021 01/01/2022 documented as of this encounter Care Teams Form Presser Relationship Specialty Start Date End Date Deedee Low PA PCP - General 03/13/17 documented as of this encounter
--- OUTSIDE RECORDS SUMMARY | 2024-02-24 17:13 | XMS_ITS | Encounter Summary ---
Author Organization [facility] Address [address] [address] Care Team Providers Care Production Assembly Supervisor Name Role Phone Deedee Low Primary Care Pr ovider Encounter Details Date Type Department Care Team (Late st Contact Info) Description 06/09/2021 8:45 AM CDT Lab [facility] Outpatient Lab at [address] [address] Mixed hyperlipidemia (Primary Dx); Other mcfp (current) drug therapy; Class 1 obesity with body mass index (BMI) of 30.0 to 30.9 in adult, unspecified obesity type, unspecified whether serious comorbidity present; Irregular menstrual cycle; BMI 40.0-44.9, adult (HCC); Hyperlipidemia associated with type 2 diabetes mellitus (HCC); Hypertension associated with diabetes (HCC); Insulin pump status; Morbid obesity (CMS/HCC) (HCC); Type 2 diabetes mellitus with hyperglycemia, with long-term current use of insulin ([facility]) ([facility]) Social History Tobacco Use Types Packs/Day Years [...] on file 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 This test was developed and its performance characteristics determined by [facility] in a manner consistent with CLIA requirements. This test has not been cleared or approved by the U.S. Food and Drug Administration. Test Performed by: [facility] [address] Rn Telephone Triage: Alexander Cerrato M.D. Ph.D.; CLIA# [id number] Testosterone, free 0.36 0.06 - 0.98 ng/dL AILEEN Comment: ADDITIONAL INFORMATION Testing performed by [facility]. This test was developed and its performance characteristics determined by [facility] in a manner consistent with CLIA requirements. This test has not been cleared or approved by the U.S. Food and Drug Administration. Blood (Blood, Venous) 06/09/2021 8:55 AM CDT 06/09/2021 3:48 PM CDT Narrative AILEEN ZHAO - 06/20/2021 9:35 AM CDT PLEASE FAX ORDERS TO DELMER BELL [phone] Deedee DOWELL LAB BLOOD ORDERA BLES Final Result AILEEN [address] Department [place] [address] * Progesterone (06/09/2021 8:55 AM CDT) Progesterone 0.93 ng/mL AILEEN ZHAO Comment: Interpretive Data Males: ?<0.15 ng/mL Females: ??Follicular ?<0.20 ng/mL ??Ovulation ? <4.1 ng/mL ??Luteal ?4.1 - ??14.5 ng/mL ??1st Trimester ?? 11.0 - ??44.0 ng/mL ??2nd Trimester ?? 25.0 - ??83.0 ng/mL ??3rd Trimester ?? 59.0 - 214.0 ng/mL ??Postmenopausal ??<0.13 ng/mL Current interpretive data was last revised 2021. Testing performed by: [facility], [address] [place]., [address] Blood (Blood, Venous) 06/09/2021 8:55 AM CDT 06/12/2021 9:38 AM CDT Narrative AILEEN ZHAO - 06/12/2021 10:22 AM CDT PLEASE FAX ORDERS TO [facility]MER BELL [phone] us Deedee DOWELL LAB BLOOD ORDERA BLES Final Result Performing Organization Address City/State/[facility] Co pa Phone Number AILEEN [address] [address] Department [place] [address] * Estradiol (06/09/2021 8:55 AM CDT) Estradiol 90.9 pg/mL AILEEN ZHAO Comment: Interpretive Data Male: ?11 - 43 [...] was last revised 2020. Testing performed by: [facility], [address] [place]., [address] Blood (Blood, Venous) 06/09/2021 8:55 AM CDT 06/12/2021 9:38 AM CDT Narrative FERNER - 06/12/2021 10:22 AM CDT PLEASE FAX ORDERS TO DELMER BELL [phone] Deedee DOWELL LAB BLOOD ORDERA BLES Final Result Performing Organization Address City/[facility] Co de Phone Number [facility] [address] [place] [address] * Prolactin (06/09/2021 8:55 AM CDT) Prolactin 10.8 4.8 - 23.3 ng/mL AILEEN Blood (Blood, Venous) 06/09/2021 8:55 AM CDT 06/09/2021 3:48 PM CDT Narrative [facility] - 06/09/2021 5:15 PM CDT PLEASE FAX ORDERS TO DELMER BELL [phone] Deedee DOWELL LAB BLOOD ORDERA BLES Final Result Performing Organization Address City/[facility]/ZIP Co de Phone Number [facility] [address] [place] [address] * LH (06/09/2021 8:55 AM CDT) LH 9.5 IUnits/L CERNER CH Comment: Interpretive Data Males: ??Adults: ? 1.7 - 8.6 ?? IUnits/L Females: ?Follicular: ? 2.4 - 12.6 ??IUnits/L ??Ovulation: ? 14.0 - 95.6 ??IUnits/L ?Luteal: ? 1.0 - 11.4 ??IUnits/L ??Postmenopausal: 7.7 - 58.5 ??IUnits/L Current interpretive data was last revised on 2018. Testing performed by: [facility], [address] [place]., [address] Blood (Blood, Venous) 06/09/2021 8:55 AM CDT 06/12/2021 9:38 AM CDT Leila GALLAGHER CH - 06/12/2021 10:22 AM CDT PLEASE FAX ORDERS TO DELMER BELL [phone] Deedee DOWELL LAB BLOOD ORDERA BLES Final Result AILEEN [address] Department [place] [address] * Follicle stimulating hormone (06/09/2021 8:55 AM CDT) FSH 5.7 IUnits/L AILEEN ZHAO Comment: Interpretive Data Male: Adults: ?1.5 - 12.4 IUnits/L Female: ?? Follicular: ?3.5 - 12.5 IUnits/L Ovulation: ? 4.7 - 21.5 IUnits/L Luteal: ?1.7 - 7.7 IUnits/L Postmenopausal: 25.8 - 134.8 IUnits/L Current interpretive data was last revised 2015. Testing performed by: [facility], [address] [place] [address]., [address] Blood (Blood, Venous) 06/09/2021 8:55 AM CDT 06/12/2021 9:38 AM CDT Narrative AILEEN ZHAO - 06/12/2021 10:22 AM CDT PLEASE FAX ORDERS TO DELMER BELL [phone] Deedee DOWELL LAB BLOOD ORDERA BLES Final Result Performing Organization Address City/[facility]/ZIP Co de Phone Number AILEEN ZHAO [phone] [address] [facility] [place] [address] * T4, free (06/09/2021 8:55 AM CDT) Free T4 1.22 0.90 - 1.70 ng/dL AILEEN CH Blood (Blood, Venous) 06/09/2021 8:55 AM CDT 06/09/2021 3:48 PM CDT Narrative AILEEN ZHAO - 06/09/2021 5:12 PM CDT PLEASE FAX ORDERS TO DELMER BELL [phone] us Deedee DOWELL LAB BLOOD ORDERA BLES Final Result Performing Organization Address [facility] Co de Phone Number AILEEN ZHAO [phone] [address] [facility] [place] [address] * TSH (06/09/2021 8:55 AM CDT) Thyroid Stimulating Hormone 0.84 0.30 - 4.20 mcIUnit/mL AILEEN ZHOA Blood (Blood, Venous) 06/09/2021 8:55 AM CDT 06/09/2021 3:48 PM CDT Narrative AILEEN ZHAO - 06/09/2021 5:12 PM CDT PLEASE FAX ORDERS TO DELMER BELL [phone] Deedee DOWELL LAB BLOOD ORDERA BLES Final Result Performing Organization Address City/[facility]/ZIP Co de Phone Number AILEEN ZHAO [phone] [address] [facility] [place] [address] * (ABNORMAL) CBC with auto differential (06/09/2021 [...] PM CDT Narrative CERNER CH - 06/09/2021 4:24 PM CDT PLEASE FAX ORDERS TO DELMER BELL [phone] Deedee DOWELL LAB BLOOD ORDERA BLES Final Result [facility] [address] [address] Department [place] [address] * Comprehensive metabolic panel (06/09/2021 8:55 AM CDT) Sodium 139 135 - 145 mmol/L CERNER CH Potassium, pl 4.4 3.3 - 4.9 mmol/L CERNER CH Chloride 102 97 - 110 mmol/L CERNER CH CO2 27 22 - 32 mmol/L CERNER CH Anion gap 10 2 - 15 mmol/L CERNER CH BUN 11 8 - 25 mg/dL CERNER CH Creatinine 0.66 0.60 - 1.10 mg/dL CERNER CH Glucose 87 70 - 199 mg/dL CERNER CH Comment: [...] CDT PLEASE FAX ORDERS TO DELMER BELL [phone] Deedee DOWELL LAB BLOOD ORDERA BLES Final Result [facility] [address] [address] Department [place] [address] * Urinalysis reflex to microscopic and culture [...] for microscopic UA and culture not met. CERNER CH Urine 06/09/2021 8:55 AM CDT 06/09/2021 3:48 PM CDT Narrative CERNER CH - 06/09/2021 4:23 PM CDT PLEASE FAX ORDERS TO DELMER BELL [phone] Urine pH is affected by diet, medications, systemic acid-base disturbances, and renal tubular function. ??pH may affect urinary stone formation. ??For example, urine pH below 6.0 may help reduce the tendency for calcium phosphate stones and pH greater than 6.0 may reduce the tendency for uric acid stone formation. Source: [employer]. Last revised 03-21-2017 us Deedee DOWELL LAB MICROBIOLOGY - GENERAL ORDERABLES Final Result [facility] [address] [address] Department [place] [address] * (ABNORMAL) Lipid panel (06/09/2021 8:55 AM CDT) Cholesterol 221(H) 30 - 199 mg/dL CERNER Comment: Interpretive Data Ages < or = [...] on 2017. Triglycerides 124 <=149 mg/dL AILEEN Comment: Interpretive Data Ages [...] revised on 2017. Non-HDL Cholesterol 188 mg/dL AILEEN ZHAO Comment: Interpretive Data Ages [...] last revised on 2017. Chol/HDL ratio 7 CERGEOVANNY Blood (Blood, Venous) 06/09/2021 8:55 AM CDT 06/09/2021 3:48 PM CDT Narrative AILEEN - 06/09/2021 4:41 PM CDT PLEASE FAX ORDERS TO DELMER BELL [phone] us Deedee DOWELL LAB BLOOD ORDERA BLES Final Result AILEEN ZHAO [address] [address] Department [place] [address] documented in this encounter Visit Diagnoses Diagnosis Mixed hyperlipidemia- Primary Other technician terminal and repeater (current) drug therapy Class 1 obesity with body mass index (BMI) of 30.0 to 30.9 in adult, unspecified obesity type, unspecified whether serious comorbidity present Irregular menstrual cycle BMI 40.0-44.9, adult (HCC) Hyperlipidemia associated with type 2 diabetes mellitus (HCC) Hypertension associated with diabetes (HCC) Unspecified essential hypertension Insulin pump status Morbid obesity (HCC) Morbid obesity Type 2 diabetes mellitus with hyperglycemia, with long-term current use of insulin (HCC) Irregular menstrual cycle Class 1 obesity with body mass index (BMI) of 30.0 to 30.9 in adult, unspecified obesity type, unspecified whether serious comorbidity present Other mcfp (current) drug therapy Mixed hyperlipidemia documented in this encounter Care Teams Production Assembly Supervisor Relationship Specialty Start Date End Date Deedee Low PA PCP - General 03/13/17 documented as of this encounter
--- OUTSIDE RECORDS SUMMARY | 2024-02-24 17:13 | XMS_ITS | Encounter Summary ---
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 She is scheduled for MRI soon. PB documented in this encounter Plan of Treatment Not on file documented as of this encounter Visit Diagnoses Not on filedocumented in this encounter Care Teams Amortization Clerk Relationship Specialty Start Date End Date Deedee Low PA PCP - General 03/13/17 documented as of this encounter
--- OUTSIDE RECORDS SUMMARY | 2024-02-24 17:13 | XMS_ITS | Encounter Summary ---
Author Organization [facility] Address [address] [place] [address] Phone Care Team Providers Care Postie Name Role Phone Deedee Low Primary Care Pr ovider Reason for Visit * Diagnostic Imaging (Routine) - Closed Specialty Diagnoses / Procedures Referred By Contchicho t Referred To Contact Diagnoses Peripheral vision loss, bilateral Procedures ERG Full Field - OU - Both Eyes Basilio Zurita MD [address] [address] Phone: tel: fax: [facility] (All Locations) Referral ID Status Reason Start Date Expiration Date Visits Re quested Visits Authorized [id number] Closed 06/14/2021 07/14/2022 1 1 Encounter Details Date Type Department Care Team (Late st Contact Info) Description 06/15/2021 3:00 PM CDT Imaging Exam [facility] Ophthalmology [address] [facility] [address] [place] [address] Peripheral vision loss, bilateral Social History Tobacco Use Types Packs/Day Years [...] on file 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 Gender Identity Female 09/21/2019 9:02 PM CDT Sexual Orientation Not on file 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 Not on file Not on file documented as of this encounter Plan of Treatment Not on file documented as of this encounter Procedures Procedure Name Priority Date/Time Associated Diagnosis Comments ERG FULL FIELD - OU - BOTH EYES Routine 06/15/2021 5:24 PM CDT Peripheral vision loss, bilateral documented in this encounter Results * ERG Full Field [...] Sciences and Neurology Director, Visual Electrophysiology Service [facility] E-mail: [email or web address] Basilio Zurita MD OPHTH ELECTRORETINOG [place] Final Result documented in this encounter Visit Diagnoses Diagnosis Peripheral vision loss, bilateral documented in this encounter Care Teams Postie Relationship Specialty Start Date End Date Deedee Low PA PCP - General 03/13/17 documented as of this encounter
--- OUTSIDE RECORDS SUMMARY | 2024-02-24 17:13 | XMS_ITS | Encounter Summary ---
Author Organization [facility] Address [address] [place] [address] Care Team Providers Care Hvac Project Manager Name Role Phone Deedee Low Primary Care Pr ovider Reason for Visit * Reason Comments Diabetes Type 2 Encounter Details Date Type Department Care Team (Late st Contact Info) Description 11/23/2021 1:00 PM CDT Office Visit [facility] Diabetes and Endocrinology [address] [place] [phone] [place] [address] 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 If it is, see if you can tolerate it. Start at the 0.25mg dose again for at least 4 weeks. Can increase to 0.5 mg whenever you want to after that and see how you tolerate it. documented in this encounter Ordered Prescriptions Prescription Sig Dispense Quantity Refills Last Filled Start Date End Date semaglutide (Ozempic) 0.25 mg or 0.5 mg(2 mg/1.5 mL) pen injector injection Inject 0.5 mg under the skin every 7 days 1.5 mL 11 11/23/2021 11/23/2021 documented in this encounter Progress Notes * Deedee Hussein PA - 11/23/2021 1:00 PM CDT Images from the original note were not included. [facility] Diabetes Follow Up Visit Subjective/Objective Patient ID: Alannah Ruano is a 41 y.o. female who comes in today to our Endocrinology clinic tofollow up for DM management. Chief Complaint Diabetes Type 2 HPI Diabetes complications and/or comorbidity include: s/p gastric sleeve 08/29 (285 lbs prior to surgery), gastroparesis. She is scheduled for [facility] for low back/ SI pain. Current medications: Farxiga 10 mg (started last visit) Novolog via Omnipod insulin pump Basal 12a 1.0, 12p 1.2 IC 8 SF 25 T 100 AIT 4 hrs She requests to go back on phentermine. It was prescribed in 04/01 but she didn't take it for long b/c didn't feel like she needed it. But she has been gaining some weight back and feels her appetite has increased. We have in notes she was intolerant of GLP1a due to side effects, but she states she never tried to get it at the pharmacy. Dietary habits: stays low carb, really tries to watch. Exercise routine: stays active Home CBG monitoring results: dexcom. BG Average: 129 mg/dl with 0% very high, 7% high, and 0% low. Overnight pattern: flat Postprandial pattern: no excursions No hypoglycemia. Neuropathy: no complaints. Last foot exam: 11/30 Statin therapy: Yes. Atorvastatin 20 mg and fenofibrate. Last lipid panel: 09/29. Nephropathy: On MITESH-I / ARB???s: Yes. Lisinopril 10 mg. Last MA: 06/30. Last creat/GFR: 09/29. Retinopathy: Date of last eye examination: 05/30. Told at last eye exam that she had macular edema. She did not have any signs of retinopathy. She went to retinal specialist and neuro-ophtho and apparently unknown cause of ME but since she has DM they are calling it retinopathy. Wt Readings from Last 3 Encounters: 11/23/21 96.6 kg (213 lb) 11/16/21 96.2 kg (212 lb) 09/09/21 95.9 kg (211 lb 6.4 oz) Labs: Last A1c: Recent Labs Lab Units 11/23/21 1313 HEMOGLOBIN A1C 5.5 No lab exists for component: [id number] Component Latest Ref Rng & Units 10/27/2020 03/30/2021 06/22/2021 09/09/2021 Hgb A1C 4.0 - 5.6 % 5.7 5.6 % 5.2 5.6 Lab Results Component Value Date MICROALBUR 18.3 [...] Skin: Negative. Neurological: Negative. Psychiatric/Behavioral: Negative. Vitals: 11/23/21 1302 BP: 128/88 BP Location: Left arm Patient Position: Sitting Pulse: 70 Resp: 18 Weight: 96.6 kg (213 lb) Height: 162.6 cm (5' 4.02 ) Physical Exam Vitals reviewed. Constitutional: General: She is awake. Appearance: Normal appearance. She is obese. HENT: [...] hyperglycemia, with long-term current use of insulin ([facility]) ([facility]) (Primary) Assessment & Plan: Chronic problem, stable w/o hypoglycemia. Rx sent in for Ozempic, she will see first if she can getthis covered. If she can, try 0.25 mg for 4 weeks to see how she tolerates (historically has GI issues with new medications) and increase to 0.5 mg if tolerated. We discussed pump adjustments as needed, she will call if having hypoglycemia. Will send request for phentermine to Dr. Saini. Orders: - POCT hemoglobin A1c - POCT glucose Hypertension associated with diabetes ([facility]) Assessment & Plan: Controlled on current medications, no changes. Hyperlipidemia associated with type 2 diabetes mellitus ([facility]) Assessment & Plan: Chronic problem. On statin therapy, no changes. Insulin pump in place Assessment & Plan: No pump setting changes. Other orders - semaglutide (Ozempic) 0.25 mg or 0.5 mg(2 mg/1.5 mL) pen injector injection; Inject 0.5 mg under the skin every 7 days DELMER Dong documented in this encounter Miscellaneous Notes * Assessment & Plan Note - Deedee Hussein PA - 11/23/2021 2:06 PM CDT Associated Problem(s): Insulin pump in place No pump setting changes. * Assessment & Plan Note - Deedee Hussein PA - 11/23/2021 1:19 PM CDT Associated Problem(s): Type 2 diabetes mellitus with hyperglycemia, with long- term current use of insulin ([facility]) Chronic problem, stable w/o hypoglycemia. Rx sent in for Ozempic, she will see first if she can getthis covered. If she can, try 0.25 mg for 4 weeks to see how she tolerates (historically has GI issues with new medications) and increase to 0.5 mg if tolerated. We discussed pump adjustments as needed, she will call if having hypoglycemia. Will send request for phentermine to Dr. Saini. * Assessment & Plan Note - Deedee Hussein PA - 11/23/2021 1:19 PM CDT Associated Problem(s): Hyperlipidemia associated with type 2 diabetes mellitus (HCC) Chronic problem. On statin therapy, no changes. * Assessment & Plan Note - Deedee Hussein PA - 11/23/2021 1:19 PM CDT Associated Problem(s): Hypertension associated with diabetes (HCC) Controlled on current medications, no changes. documented in this encounter Plan of Treatment Not on file documented as of this encounter Procedures Procedure Name Priority Date/Time Associated Diagnosis Comments POCT HEMOGLOBIN A1C Routine 11/23/2021 1 :13 PM CDT Type 2 diabetes mellitus with hyperglycemia, with long-term current use of insulin ([facility]) ([facility]) POCT GLUCOSE Routine 11/23/2021 1:12 PM CDT Type 2 diabetes mellitus with hyperglycemia, with long-term current use of insulin ([facility]) ([facility]) documented in this encounter Results * POCT hemoglobin A1c (11/23/2021 1:13 PM CDT) Hemoglobin A1C, POC 5.5 Blood 11/23/2021 1:13 PM CDT Deedee DOWELL POINT OF CARE TEST АННА DEL CID Final Result * POCT glucose (11/23/2021 1:12 PM CDT) Glucose Blood, POC 104 mg/dL Blood 11/23/2021 1:12 PM CDT Deedee DOWELL POINT OF CARE TEST [...] Reason Start Date End Da te doxycycline (doxycycline) 100 mg capsuleIndications: Chronic Suppression Take 1 tablet/capsule (100 mg total) by mouth daily Therapy completed 06/01/2021 11/23/2021 methylPREDNISolone (MEDROL) 4 mg tablet methylprednisolone 4 mg tablet Therapy completed 11/23/2021 documented as of this encounter Historical Medications * This list may reflect changes made after this encounter. eszopiclone (LUNESTA) 2 mg tablet Take 2 mg by mouth nightly 11/20/2021 03/22/2022 added in this encounter Care Teams Hvac Project Manager Relationship Specialty Start Date End Date Deedee Low PA PCP - General 03/13/17 documented as of this encounter
--- OUTSIDE RECORDS SUMMARY | 2024-02-24 17:13 | XMS_ITS | Encounter Summary ---
Author Organization [facility] Address [address] [place] [address] Phone Care Team Providers Care Undercover Operator Name Role Phone Deedee Low Primary Care Pr ovider Reason for Visit * Diagnostic Imaging (Routine) - Closed Specialty Diagnoses / Procedures Referred By Contac t Referred To Contact Diagnoses Decreased peripheral vision of both eyes Procedures [facility] Visual Field - OU - Both Eyes Basilio Zurita MD [address] [facility] [address] [place] [address] Phone: tel: fax: [facility] (All Locations) Referral ID Status Reason Start Date Expiration Date Visits Re quested Visits Authorized [id number] Closed 08/24/2021 09/23/2022 1 1 Encounter Details Date Type Department Care Team (Late st Contact Info) Description 08/25/2021 8:00 AM CDT Imaging Exam [facility] Ophthalmology [address] [facility] [address] [facility] [address] [place] [address] Decreased peripheral vision of both eyes Social History Tobacco Use Types Packs/Day Years [...] on file 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 Gender Identity Female 09/21/2019 9:02 PM CDT Sexual Orientation Not on file 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 Cooperation was good. Reliability was good. Progression has improved. Left Eye Fixation was good. Cooperation was good. Reliability was good. Progression has improved. Notes Moderate generalized depression and constriction OU. ??Improved OU. us Basilio Zurita MD OPHTH VISUAL FIELD F inal Result documented in this encounter Visit Diagnoses Diagnosis Decreased peripheral vision of both eyes documented in this encounter Care Teams Undercover Operator Relationship Specialty Start Date End Date Deedee Low PA PCP - General 03/13/17 documented as of this encounter
--- OUTSIDE RECORDS SUMMARY | 2024-02-24 17:13 | XMS_ITS | Encounter Summary ---
Author Organization [facility] Address [address] [place] [address] Phone Care Team Providers Care Computer Analyst Name Role Phone Deedee Low Primary Care Pr ovider Reason for Referral * Consultation (Routine) - Closed Specialty Diagnoses / Procedures Referred By Angelita silva Referred To Contact Speech Therapy Diagnoses Vocal cord dysfunction Romie Shields MD [address] [address] Phone: tel: fax: [facility] (All Locations) Referral ID Status Reason Start Date Expiration Date V isits Requested Visits Authorized [id number] Closed Specialty Services Required 11/14/2021 12/14/2022 24 24 Question Answer Treatment Type Other (Specify) Other Reason for Referral Vocal cord dysfunction Therapy options discussed with patient? Yes Location provided for therapy services is: Patient requested/Patient preferred Please select the performing region: [facility] (All Locations) [[id number]] # of visits: 24 Reason for Visit * Reason Comments Vocal Cord Paralysis * Consultation (Routine) - Closed Specialty Diagnoses / Procedures Referred By Angelita t Referred To Contact Otolaryngology Diagnoses Vocal cord dysfunction Jung Vidal PA [address] [place] [address] Phone: tel: fax: [facility] (All Locations) Referral ID Status Reason Start Date Expiration Date V isits Requested Visits Authorized [id number] Closed Specialty Services Required 10/10/2021 11/09/2022 1 1 Encounter Details Date Type Department Care Team (Late st Contact Info) Description 11/16/2021 2:40 PM CDT Office Visit [facility] [address] [facility] 11th [place] [address] [place] [address] Romie Shields MD [address] [facility] [address] [place] [address] Vocal cord dysfunction (Primary Dx) Social History Tobacco Use Types [...] on file 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 Gender Identity Female 09/21/2019 9:02 PM CDT Sexual Orientation Not on file 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 Not on file Not on file documented as of this encounter Last Filed Vital Signs Vital Sign Reading Time Taken Comments Blood Pressure 125/82 11/16/2021 1:54 PM CDT Pulse 92 11/16/2021 1:54 PM CDT Temperature - - Respiratory Rate - - Oxygen Saturation - - Inhaled Oxygen Concentration - - Weight 96.2 kg (212 lb) 11/16/2021 1:54 PM CDT Height 162.6 cm (5' 4 ) 11/16/2021 1:54 PM CDT Body Mass Index 36.39 11/16/2021 1:54 PM CDT documented in this encounter Progress Notes * Romie Shields MD - 11/16/2021 2:40 PM CDT [facility] Department of Otolaryngology - Head & Neck Surgery [facility] Consultation Report 11/16/2021 Romie Shields MD Consultation Requested By: Jung Vidal PA Primary Care Provider: Deedee Low PA Name: Alannah Ruano Date of : 1980 Chief Complaint Patient presents with Vocal Cord Paralysis Subjective HISTORY OF PRESENT ILLNESS: Thank you for asking me to evaluate Ms. Ruano in the [facility]. The patient is unaccompanied. Ms. Ruano is referred for evaluation of chronic cough and globus sensation which has been present for about 15 years. She recalls that most of her symptoms began shortly after a tonsillectomy for chronic tonsillitis. She had great benefit from a tonsillectomy and no longer has chronic sore throats, but she experienced change in her voice as well as some new discomfort in the throat. She underwent voice therapy with good effect and now has much more control over her vocal quality. Currently, she is struggling with a globus sensation in the throat as well as chronic cough. Her cough is episodic and severe. She will often cough until she vomits. Her cough is triggered by many typical irritants including temperature changes, eating or drinking, and odors. Her cough is often worsened by swallowing liquids rather than helped. Her cough is also sometimes triggered by voice use. She has a extensive GI history including gastroparesis and including having undergone a weight reduction surgery. She had good effect from weight loss surgery and has lost about 60 lb already. She isexcited about this change in his noticed any improvements to her health including improvement in her digestion. She does continue to have severe symptomatic reflux despite taking twice daily pantoprazole and twice daily H2 myah. She is scheduled to see GI in the spring but was unable to have a sooner evaluation. Past Medical History: Diagnosis Date Anxiety Asthma Asthma Back pain Cough Depression Diarrhea Fatigue GERD (gastroesophageal reflux disease) Headache HX OTHER MEDICAL Migraines Hypercholesterolemia High cholesterol Hypertension Migraines Muscle pain Numbness and tingling Pain with urination Seizure (CMS/HCC) (HCC) TMJ dysfunction Type 2 diabetes mellitus (HCC) Past Surgical History: Procedure Laterality Date ADENOIDECTOMY adenoidectomy COLONOSCOPY 2006 ORAL SURGERY Oral Surgery SINUS SURGERY 2015 TONSILLECTOMY tonsillectomy Allergies Allergen Reactions Mushroom Anaphylaxis Nut Flavor Anaphylaxis MAINLY PECANS CAN TOLERATE PEANUTS Current Outpatient Medications: albuterol 2.5 mg /3 mL (0.083 %) nebulizer solution, albuterol sulfate 2.5 mg/3 mL (0.083 %) solution for nebulization PRN, Disp: , Rfl: albuterol ER (VOSPIRE ER) 8 mg 12 hr tablet, PATIENT TAKES 8.5 GM DAILY PRN, Disp: , Rfl: asenapine maleate (SAPHRIS) 5 mg tablet, sublingual, asenapine 5 mg sublingual tablet TAKE 1 TABLETBY MOUTH TWICE DAILY, Disp: , Rfl: atorvastatin (LIPITOR) 20 mg tablet, atorvastatin 20 mg tablet TAKE 1 TABLET BY MOUTH EVERY DAY IN THE EVENING, Disp: , Rfl: azelastine (ASTELIN) 137 mcg (0.1 %) nasal spray, azelastine 137 mcg (0.1 %) nasal spray aerosol Retsof 2 sprays every day by nasal route [...] (10 mg total) by mouth daily, Disp: 30 tablet, Rfl: 5 diazePAM (VALIUM) 5 mg tablet, Take 5 [...] mg by mouth daily, Disp: , Rfl: lisinopriL (PRINIVIL,ZESTRIL) 10 mg tablet, Take 10 mg by mouth daily, Disp: , Rfl: methylPREDNISolone (MEDROL) 4 mg tablet, methylprednisolone 4 mg tablet, Disp: , Rfl: montelukast (SINGULAIR) 10 mg [...] Rfl: 0 phentermine (ADIPEX-P) 37.5 mg tablet, , Disp: , Rfl: 4 propranoloL (INDERAL) 20 mg tablet, [...] mg in 24 hours., Disp: , Rfl: topiramate (TOPAMAX) 200 mg tablet, 200 mg 2 (two) times a day, Disp: , Rfl: triamcinolone (KENALOG) 0.1 % ointment, APPLY TOPICALLY TO THE AFFECTED AREA THREE TIMES DAILY, Disp: , Rfl: ziprasidone (GEODON) 20 mg capsule, Take 20 mg by mouth 2 (two) times a day with meals, Disp: , Rfl: doxycycline (doxycycline) 100 mg capsule, Take 1 tablet/capsule (100 mg total) by mouth daily, Disp: 90 capsule, Rfl: 3 Social History Tobacco Use Smoking status: Former Smokeless tobacco: Never Tobacco comments: smoked for 3 years Substance and Sexual Activity Drug use: Never Comment: Rare alcohol use Sexual activity: Not Currently Partners: Male control/protection: Abstinence, Condom Male, I.U.D. Alcohol Use: Unknown Frequency of Alcohol Consumption: Monthly or less Average Number of Drinks: Not on file Frequency of Binge Drinking: Not on file Family History Problem Relation Age of Onset [...] Grandmother Hearing loss Maternal Grandmother Hypertension Sister REVIEW OF SYSTEMS A complete review of systems was completed by the patient on the Patient History Form and reviewed with the patient during the visit. The patient intake form, including the past medical history, past surgical history, social history,family history, medications, allergies, and review of systems was reviewed in its entirety and was signed and dated by myself. The Patient History Form can be found in the electronic medical record as a scanned document. PATIENT REPORTED OUTCOMES: GFI: 2 VHI-10: 8 VCI: 0 RSI: 14 Objective PHYSICAL EXAM: Constitutional: Vitals BP 125/82 (BP Location: Right arm, Patient Position: Sitting) Pulse 92 Ht 162.6 cm (5' 4 ) Wt 96.2 kg (212 lb) BMI 36.39 kg/m?? General: Well-developed, well-nourished in no apparent distress. Appropriate affect. Voice: perceptual evaluation of voice reveals overall mild dysphonia; no roughness, no breathiness,no weakness, and mild strain. The pitch is within expectations for age and gender. There is not evidence of tremor. Head and Face: Normocephalic, atraumatic. Skin: No cutaneous lesions of the face or neck. Neurologic: Cranial nerves II through XII are grossly intact. Eyes: Pupils are equal, round, and reactive to light and accommodation. Extraocular muscles are intact. No notable scleral icterus or injection. Ears: Auricles are unremarkable bilaterally. EACs are clear. Tympanic membranes are intact. There is no evidence of middle ear effusion. Nose: Dorsum is midline. No masses or polyps visualized on anterior rhinoscopy. No drainage or discharge. Septum: midline Oral Cavity/Oropharynx: No visible mucosal lesions. Tongue protrudes midline, palate elevates symmetrically. Floor of mouth is pink and soft. No abnormalities of the floor of mouth, oral tongue, or oropharynx. Neck: No evidence of lymphadenopathy, masses or tenderness. There is not excessive tension in the cervical musculature. There is not excessive tenderness in the cervical musculature. Endocrine: No palpable abnormalities of the thyroid gland. Cardiovascular: Extremities are warm and well perfused. Pulmonary: Normal quiet breathing. No respiratory distress, stridor, or wheeze. PROCEDURE PERFORMED: Procedure: Flexible transnasal laryngoscopy In a separately identifiable procedure to better assess the larynx based on the history and other exam findings, the patient underwent flexible transnasal laryngoscopy via the right side of the nose.Tetracaine 1% and oxymetazoline 0.025% (1:1) was applied to the nasal cavity. The procedure was described in detail to the patient. The risks benefits, and alternatives were thoroughly discussed and the patient wished to proceed with the recommended procedure. After topical anesthesia and decongestion, the laryngoscope was passed. The nasal cavities, nasopharynx, oropharynx, hypopharynx, and larynx were all examined. Vocal folds were examined during respiration and phonation. The following findings were noted: - General: mucus consistency thin - Nasopharynx: no purulence or polyps - Hypopharynx: no lesions; no erythema - Supraglottis: no lesions; no erythema or edema; no constriction during phonation - Vocal Fold Mobility: normal and symmetric - Vocal Fold Anatomy: normal color; no lesions; no edema - Mucosal wave pattern: Not assessed - Phase symmetry: not assessed - Closure: grossly complete closure - Subglottis: subglottis patent without evidence of stenosis DATA REVIEWED: 11/16/2021 Lab Tests: no Pathology Reports: no Radiology Reports: no Old Records/Discussion with MD: Reviewed referring provider note(s) and other clinical encounters relevant to this visit. Assessment/Plan Alannah Ruano is a 41 y.o. referred for evaluation of chronic cough and globus sensation. Evaluation including laryngeal videoendoscopy was significant for essentially normal laryngeal structure and function. The findings were explained in detail to the patient. We discussed that her symptoms are most consistent with a combination of reflux, upper digestive pathology, and laryngeal hypersensitivity. We discussed a multistep plan for treatment of her cough and throat sensitivity. She is currently taking lisinopril so I recommended that she discuss with her primary care switching to an alternative antihypertensive. Next, I recommended that she continue follow-up and continue ongoing care with her weight loss and GI providers. Suspect that a large contributor to her throat discomfort andglobus sensation is her uncontrolled reflux and any associated esophageal pathology. Once these other variables are better controlled, we will consider additional treatment for laryngeal hypersensitivity such as cough suppression therapy, medications, or superior laryngeal nerve injection. MEDICATIONS: No orders of the defined types were placed in this encounter. OTHER ORDERS: Orders Placed This Encounter Procedures Ambulatory referral order to Speech Therapy - DISPOSITION: No follow-ups on file. Thank you for allowing me to participate in the care of Ms. Ruano. Should you have any questions or concerns, please do not hesitate to contact my office. Warm regards, Romie Shields M.D. [facility] Department of Otolaryngology - Head & Neck Surgery [facility] Portions of this note were dictated using M*Modal Fluency Direct. Breakdown Mill Operator errors and homophone substitutions may occur. documented in this encounter Plan of Treatment Scheduled Referrals Name Type Priority Associated Diagnoses Orde r Schedule Ambulatory referral order to Speech Therapy - Outpatient Referral Routine Vocal cord dysfunction Expected: 11/28/2021 (Approximate), Expires: 11/14/2022 documented as of this encounter Visit Diagnoses Diagnosis Vocal cord dysfunction- Primary Other diseases of vocal cords documented in this encounter Historical Medications * This list may reflect changes made after this encounter. EPINEPHrine 0.3 mg/0.3 mL auto-injection syringe ergocalciferol (VITAMIN D) 50,000 unit capsule ergocalciferol (vitamin D2) 1,250 mcg (50,000 unit) capsule TAKE 1 CAPSULE BY MOUTH EVERY WEEK DIRECTED fluticasone propion-salmeteroL (ADVAIR DISKUS) 250-50 mcg/dose diskus inhaler triamcinolone (KENALOG) 0.1 % ointment 2 (two) times a day 09/17/19 22 asenapine maleate (SAPHRIS) 5 mg tablet, sublingual asenapine 5 mg sublingual tablet TAKE 1 TABLET BY MOUTH TWICE DAILY 10/12/19 22 023 methylPREDNISolone (MEDROL) 4 mg tablet methylprednisolone 4 mg tablet 022 ondansetron ODT (ZOFRAN-ODT) 4 mg disintegrating tablet 10/06/19 22 023 added in this encounter Orders Outpatient Referral Count Last Ordered Date Fir st Ordered Date AMB REFERRAL TO ENT 1 11/16/2021 documented in this encounter Care Teams Computer Analyst Relationship Specialty Start Date End Date Deedee Low PA PCP - General 03/13/17 documented as of this encounter
--- OUTSIDE RECORDS SUMMARY | 2024-02-24 17:13 | XMS_ITS | Encounter Summary ---
Author Organization [facility] Address [address] [place] [address] Phone Care Team Providers Care Cable Machine Operator Name Role Phone JennifermaryDeedee Primary Care Pr ovider Reason for Referral * Diagnostic Imaging (Routine) - Closed Specialty Diagnoses / Procedures Referred By Angelita t Referred To Contact Diagnoses Dysphagia, oropharyngeal phase Procedures FL Modified Barium Swallow W Video Romie Shields MD [address] [address] Phone: tel: fax: [address] [address] Referral ID Status Reason Start Date Expiration Date Visits Re quested Visits Authorized [id number] Closed 03/22/2022 04/21/2023 1 1 NICIAN ASSISTANT Reason for Visit * Reason Comments Follow-up Encounter Details Date Type Department Care Team (Late st Contact Info) Description 03/22/2022 8:00 AM TECHNICIAN ASSISTANT [facility] [address] [facility] 11th [place] [address] [place] [address] Romie Shields MD [address] [address] Dysphagia, oropharyngeal phase (Primary Dx) Social History Tobacco Use Types [...] on file 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 Gender Identity Female 09/21/2019 9:02 PM CDT Sexual Orientation Not on file 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 Not on file Not on file documented as of this encounter Last Filed Vital Signs Vital Sign Reading Time Taken Comments Blood Pressure - - Pulse - - Temperature - - Respiratory Rate - - Oxygen Saturation - - Inhaled Oxygen Concentration - - Weight 96.9 kg (213 lb 9.6 oz) 03/22/2022 8:34 A M TECHNICIAN ASSISTANT Height - - Body Mass Index 36.65 11/23/2021 1:02 PM CDT documented in this encounter Progress Notes * Romie Shields MD - 03/22/2022 8:00 AM CST [facility] Department of Otolaryngology - Head & Neck Surgery [facility] Return Visit PATIENT NAME: Alannah Ruano : 1980 PATIENT ID: Alannah Ruano is a 41 y.o. previously evaluated and treated for chronic cough, dysphagia. LAST SURGERY: LAST VISIT: 11/16/2021 Subjective Alannah Ruano is a 41 y.o. female who presents today for follow-up of chronic cough and dysphagia. I last visit, I recommended that she transition away from the lisinopril. She was able to stop that medication with the help of her primary care doctor, and she feels that some of her cough is nowresolved. The remainder of the cough and throat irritation that she feels is easily managed with throat lozenges. She does still have cough triggered with extended voice use, but again she is learnedto manage this with conservative strategies. She is still significantly bothered by her swallowing.She mostly notices that pills get stuck when she swallows. She also has solid foods getting stuck up at the level of her throat. Occasionally, she coughs pills back up when she is unable to swallow them. In addition to all of this, she has contracted an upper respiratory infection over the past 3 weeksor so. This was associated with nasal congestion, right ear pain, and left eye epiphora. The symptoms have mostly resolved, but she continues to have the right-sided facial pain and epiphora. PATIENT REPORTED OUTCOMES: EAT-10: 3 RSI: - VHI-10: 1 REVIEW OF SYSTEMS: No changes since last office visit. Objective PHYSICAL EXAM: Constitutional: Vitals Wt 96.9 kg (213 lb 9.6 oz) BMI 36.65 kg/m?? General: Well-developed, well-nourished in no apparent [...] Nose: Dorsum is midline. No external deformity. Oral Cavity/Oropharynx: No visible mucosal lesions. Tongue protrudes midline, palate elevates symmetrically. Floor of mouth is pink and soft. No abnormalities of the floor of mouth, oral tongue, or oropharynx. Neck: No evidence of lymphadenopathy, masses or tenderness. There is not excessive tension in the cervical musculature. There is not excessive tenderness in the cervical musculature. LARYNGEAL EXAM Procedure: Flexible transnasal laryngoscopy In a separately identifiable procedure to better assess the larynx based on the history and other exam findings, the patient underwent flexible transnasal laryngoscopy via the left side of the nose. Tetracaine 1% and oxymetazoline 0.025% (1:1) was applied [...] patent without evidence of stenosis DATA REVIEWED: 03/22/2022 Lab Tests: no new Pathology Reports: no new Radiology Reports: no new Old Records/Discussion with MD: Prior encounter notes reviewed as well as relevant notes from otherproviders. Assessment/Plan Alannah Ruano is a 41 y.o. referred for evaluation of chronic dysphagia and chronic cough. Evaluation including laryngeal videoendoscopy was significant for normal laryngeal structure and function. There was no obvious sign of sinusitis. There was no obvious sign of reflux damage in the throat.The findings were explained in detail to the patient. We discussed that she seems to have recoveredappropriately from the upper respiratory infection. She does have small monomeric patches on the bilateral tympanic membranes, but she does not have evidence of active effusion or otitis media. Nasalendoscopy did not show any obvious signs of sinusitis. For her swallow, I recommended that we obtain a modified barium swallow to further evaluate the difficulty with pills and solids. For her continued upper respiratory infection symptoms, I recommended that she use a NeilMed sinus rinse as well as a steroid nasal spray. If she continues to have the epiphora at next visit, we may consider a referral for ocular and nasolacrimal duct testing. MEDICATION ORDERS: No orders of the defined types were placed in this encounter. OTHER ORDERS: Orders Placed This Encounter Procedures FL Modified Barium Swallow W Video OR ORDERS: Return DISPOSITION: Return for after imaging or testing. Romie Shields M.D. Weather Clerk [facility] Department of Otolaryngology - Head & Neck Surgery [facility] Portions of this note were dictated using M*Modal Fluency Direct. Kettle Worker errors and homophone substitutions may occur. NICIAN ASSISTANT documented in this encounter Plan of Treatment Not on file documented as of this encounter Results * FL Modified Barium Swallow W Video (05/03/2022 11:18 AM TECHNICIAN ASSISTANT) Anatomical Region Laterality Modality Head and Neck N/A Radio Fluoroscop y 05/03/2022 11:4 2 AM TECHNICIAN ASSISTANT Impressions 05/03/2022 11:45 AM TECHNICIAN ASSISTANT The swallowing mechanism is normal; see above [...] Ciaran Gutierrez M.D. Narrative 05/03/2022 11:45 AM TECHNICIAN ASSISTANT EXAMINATION: MODIFIED BARIUM SWALLOW HISTORY: Dysphagia. TECHNIQUE: [...] it. Electronically signed by: Ciaran Gutierrez M.D. us Romie Shields MD IMG FLUOROSCOPY PROCEDUR ES Final Result documented in this encounter Visit Diagnoses Diagnosis Dysphagia, oropharyngeal phase- Primary Dysphagia, oropharyngeal phase documented in this encounter Discontinued Medications Medication Sig Discontinue Reason Start Date End Da te asenapine maleate (SAPHRIS) 5 mg tablet, sublingual asenapine 5 mg sublingual tablet TAKE 1 TABLET BY MOUTH TWICE DAILY Other 10/11/2021 03/22/2022 eszopiclone (LUNESTA) 2 mg tablet Take 2 mg by mouth nightly Other 11/20/2021 03/22/2022 lisinopriL (PRINIVIL,ZESTRIL) 10 mg tablet Take 10 mg by mouth daily Other 02/16/2016 03/22/2022 documented as of this encounter Historical Medications * This list may reflect changes made after this encounter. losartan (COZAAR) 50 mg tablet losartan 50 mg tablet TAKE 1 TABLET BY MOUTH EVERY DAY 03/21/2023 added in this encounter Care Teams Cable 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
--- OUTSIDE RECORDS SUMMARY | 2024-02-24 17:13 | XMS_ITS | Encounter Summary ---
Author Organization [facility] Address [address] [place] [address] Phone Care Team Providers Care Bi Manager Name Role Phone JennifermaryDeedee Primary Care Pr ovider Encounter Details Date Type Department Care Team (Late st Contact Info) Description 08/25/2021 8:30 AM CDT Office Visit [facility] Ophthalmology [address] [facility] [address]th [place] [address] Basilio Zurita MD [address] [facility] [address] [place] [address] Visual field constriction, bilateral (Primary Dx); Macular edema, diabetic (CMS/HCC) (HCC) Social History Tobacco Use Types Packs/Day [...] on file 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 HPI Alannah Ruano returns for 3 month follow-up for visual field loss, macular edema, and functional visual loss. I initially saw her 05/24/21. She presented with 5-year history of peripheral vision loss and recentnotation of macular edema OU. Her exam revealed dyschromatopsia and generalized visual field constriction, but no optic nerve pallor. OCTs showed macular edema and RNFL thinning OU. I felt there was likely a functional component to the peripheral field loss. The central vision loss may have had a functional component as well but she also clearly had diabetic macular edema, which was contributing. We arrange full field ERG, which demonstrated normal cade and cone function. Lab results for Vitamin A, B1, B12, folate, RPR, HIV, and copper were normal. MRI brain and orbit with and without gadolinium was performed 07/03/2021. This was unremarkable. We communicated these results to her. She states vision has been stable since her previous exam. She has about 2 migraines weekly and a mild headache every day. She will take Tylenol and Maxalt once they become more severe. She just picked up her prescription for Nurtec, but has not began taking it. She has TVOs with migraines. She reports binocular diplopia after long hours of computer work. She will close one eye to cope. She sees flashes of lights multiple times daily, floaters are stable. She denies changes in color vision. She sees Dr. Seth (retina) for macular edema. She is using Ketorolac QID She is also seeing Dr. Hernandez at [facility] for chronic migraines. She is using combination of Topamax and propranolol. She is planning to begin treatment with Botox. She is scheduled for a follow-up MRI lumbar puncture through her neurologist. Last edited by Basilio Zurita MD on 08/25/2021 2:42 PM. (History) Current Medical Problems: Patient Active Problem List Diagnosis ??? Type 2 diabetes mellitus with hyperglycemia, with long-term current use of insulin ([facility]) ([facility]) ??? BMI 38.0-38.9,adult ??? Morbid obesity (CMS/HCC) (HCC) ??? Hypertension associated with diabetes (HCC) ??? Hyperlipidemia associated with type 2 diabetes mellitus (HCC) ??? Insulin pump status ??? Visual field constriction, bilateral ??? Macular edema, diabetic (CMS/HCC) (HCC) Past Medical History: Past Medical History: Diagnosis Date ??? Anxiety ??? Asthma Asthma ??? Back pain ??? Cough ??? Depression ??? Diarrhea ??? Fatigue ??? Headache ??? HX OTHER MEDICAL Migraines ??? Hypercholesterolemia High cholesterol ??? Hypertension ??? Migraines ??? Muscle pain ??? Numbness and tingling ??? Pain with urination ??? Seizure (CMS/HCC) (HCC) ??? Type 2 diabetes mellitus (HCC) Past Surgical History: Past Surgical History: Procedure Laterality Date ??? ADENOIDECTOMY adenoidectomy ??? ORAL SURGERY Oral Surgery ??? TONSILLECTOMY tonsillectomy Medications: Current Outpatient Medications on File Prior to Visit Medication Sig Dispense Refill ??? albuterol 2.5 mg /3 mL (0.083 %) nebulizer solution albuterol sulfate 2.5 mg/3 mL (0.083 %) solution for nebulization PRN ??? albuterol ER (VOSPIRE ER) 8 mg 12 hr tablet PATIENT TAKES 8.5 GM DAILY PRN ??? atorvastatin (LIPITOR) 20 mg tablet atorvastatin 20 mg tablet TAKE 1 TABLET BY MOUTH EVERY DAY IN THE EVENING ??? azelastine (ASTELIN) 137 mcg (0.1 %) nasal spray azelastine 137 mcg (0.1 %) nasal spray aerosol [place]on 2 sprays every day by nasal route for 31 days. ??? blood glucose diagnostic strip Use to check bg 7 times daily 500 each 1 ??? blood-glucose meter misc Check bg daily 1 each 0 ??? buPROPion (WELLBUTRIN) 100 mg tablet Take 100 mg by mouth 2 (two) times a day ??? carBAMazepine (TEGretol) 200 mg tablet Take 200 mg by mouth 2 (two) times a day ??? cetirizine (ZyrTEC) 10 mg tablet Take 10 mg by mouth daily ??? dapagliflozin (FARXIGA) 10 mg tablet Take 1 tablet (10 mg total) by mouth daily 30 tablet 5 ??? diazePAM (VALIUM) 5 mg tablet ??? diphenhydrAMINE (BENADRYL) 25 mg capsule Take 25 mg by mouth every 6 (six) hours as needed ??? fenofibrate (TRIGLIDE) 160 mg tablet Take 160 mg by mouth daily ??? fexofenadine (OCHOA) 180 mg tablet TAKE 1 TABLET DAILY NEEDED. ??? hydrOXYzine (ATARAX) 25 mg tablet Take 25 mg by mouth 1-2 nightly ??? hyoscyamine (LEVSIN) 0.125 mg tablet TAKE 1 TABLET 3 TIMES DAILY PRN for pain ??? insulin aspart (NovoLOG) 100 unit/mL (3 mL) pen for injection Novolog Flexpen U-100 Insulin aspart 100 unit/mL (3 mL) subcutaneous INJECT UP TO 44 UNITS 3 TIMES A DAY BEFORE MEALS ??? insulin aspart (NovoLOG) 100 unit/mL vial for injection Use up to 160 units per day in insulin pump 150 mL 3 ??? insulin aspart (NovoLOG) 100 unit/mL vial for injection Novolog U-100 Insulin aspart 100 unit/mL subcutaneous solution ??? insulin aspart U-100 (NovoLOG Flexpen U-100 Insulin) 100 unit/mL (3 mL) insulin pen Inject up to 44 units TIDAC 15 pen 0 ??? insulin glargine (BASAGLAR) 100 unit/mL (3 mL) pen for injection Basaglar KwikPen U-100 [id number] unit/mL (3 mL) subcutaneous INJECT UP TO 60 UNITS UNDER THE SKIN AT BEDTIME ??? insulin pump cartridge (Omnipod Dash 5 Pack Pod) cartridge Omnipod Dash 5 Pack Insulin Pod subcutaneous cartridge ??? ketorolac (ACULAR LS) 0.4 % drops 1 drop 4 (four) times a day ??? lamoTRIgine (LaMICtal) 100 mg tablet ??? Levemir FlexTouch U-100 Insuln 100 unit/mL (3 mL) insulin pen INJECT 50 UNITS UNDER THE SKIN NIGHTLY 45 mL 1 ??? lisinopril (PRINIVIL,ZESTRIL) 20 mg tablet daily. ??? montelukast (SINGULAIR) 10 mg tablet ??? OneTouch Delica Plus Lancet 33 gauge misc ??? pantoprazole DR (PROTONIX) 40 mg EC tablet pantoprazole 40 mg tablet,delayed release ??? pen needle, diabetic (BD Ultra-Fine Florina Pen Needle) 32 gauge x needle USE DIRECTED upto 7 times daily 700 each 0 ??? phentermine (ADIPEX-P) 37.5 mg tablet 4 ??? propranoloL (INDERAL) 20 mg tablet ??? rimegepant (NURTEC ODT) tablet,disintegrating Take 75 mg by mouth daily as needed ??? topiramate (TOPAMAX) 200 mg tablet ??? ziprasidone (GEODON) 20 mg capsule ??? doxycycline (doxycycline) 100 mg capsule Take 1 tablet/capsule (100 mg total) by mouth daily 90capsule 3 ??? [DISCONTINUED] dapagliflozin (Farxiga) 10 mg tablet Take 1 tablet (10 mg total) by mouth daily Sample lot [id number] exp 10/09/2023 x 1 bx=7 tablets 76 tablet 0 ??? [DISCONTINUED] dapagliflozin (Farxiga) 10 mg tablet Take 1 tablet (10 mg total) by mouth daily SAMPLE LOT [id number] EXP 10/09/2023 X 1 BX= 7 TABLETS 7 tablet 0 ??? [DISCONTINUED] ergocalciferol (VITAMIN D) 50,000 unit capsule ??? [DISCONTINUED] lamoTRIgine (LaMICtal) 200 mg tablet ??? [DISCONTINUED] lancets misc Use to check bg 7 times a day 500 each 1 ??? [DISCONTINUED] metoclopramide (REGLAN) 5 mg tablet 2 times daily. ??? [DISCONTINUED] Omnipod Dash 5 Pack Pod cartridge Change pod daily 90 each 3 ??? [DISCONTINUED] topiramate (TOPAMAX) 50 mg tablet 400 mg daily No current facility-administered medications on file prior to visit. Review of Systems: Complete 14 point review of systems was reviewed and is scanned. Base Eye Exam Visual Acuity (Snellen - Linear) Right Left Dist cc 20/150 20/200 Dist ph cc 20/90 -1 20/150 Correction: Contacts Tonometry (Tonopen, 9:16 AM) Right Left Pressure STP STP Pupils Dark Light Shape React Right 5 3 Round Brisk Left 5 3 Round Brisk Visual Qiu (Counting fingers) Left Right Restrictions Partial outer superior temporal, inferior temporal, superior nasal, inferior nasal deficiencies Partial outer superior temporal, inferior temporal, superior nasal, inferior nasal deficiencies Accurate saccades to targets in temporal qiu OU. Extraocular Movement Right Left Full, Ortho Full, Ortho Neuro/Psych Oriented x3: Yes Mood/Affect: Normal Dilation defers Additional Tests Color Right Left Ishihara control only 04/21 Slit Lamp and Fundus Exam External Exam Right Left External Normal Normal Slit Lamp Exam Right Left Lids/Lashes Normal Normal Conjunctiva/Sclera White and quiet White and quiet Cornea Clear Clear Anterior Chamber Deep and quiet Deep and quiet Iris Round and reactive Round and reactive Lens Nuclear sclerosis Nuclear sclerosis Vitreous Normal Normal Fundus Exam Right Left Disc no pallor or disc edema, mild PPA no pallor or disc edema, mild PPA C/D Ratio 0.3 0.45 Macula macular edema macular edema No results found for this or any previous visit. Watkins Visual Field - OU - Both Eyes Right Eye Fixation was good. Cooperation was good. Reliability was good. Progression has improved. Left Eye Fixation was good. Cooperation was good. Reliability was good. Progression has improved. Notes Moderate generalized depression and constriction OU. Improved OU. Linked Images OCT, Optic Nerve - OU - Both Eyes Component Value Flag Ref Range Units Status RNFL OS 82 micrometers RNFL OD 83 micrometers Right Eye Reliability was good. Average RNFL thickness 83 micrometers. Left Eye Reliability was good. Average RNFL thickness 82 micrometers. Notes Stable and normal retinal nerve fiber layer thickness OU. OCT, Retina - OU - Both Eyes Component Value Flag Ref Range Units Status Central Macular Thickness OS 491 mircometers Central Macular Thickness OD 439 micrometers Right Eye Quality was good. Scan locations included subfoveal. Macular thickness was 439 micrometers. Left Eye Quality was good. Scan locations included subfoveal. Macular thickness was 491 mircometers. Notes Macular edema OU. Essentially unchanged compared with prior scan OU. Assessment/Plan Diagnoses and all orders for this visit: Visual field constriction, bilateral (Primary) Macular edema, diabetic (CMS/HCC) (HCC) Alannah Ruano has a stable examination. The visual field constriction has improved but as before, I suspect this is more related to functional overlay or performance. MRI showed no occipital lobepathology and the consistently normal disc appearance and nerve fiber layer thickness would argue against anterior visual pathway dysfunction. She has persistent macular edema and is following with Dr. Seth at the [facility] for management. At this point, I recommended observation and continued treatment of macular edema and chronic migraine. We had previously discussed the nature of functional visual loss. Better control of the migraine and certainly of the macular edema might result in improved visual function. I would not recommend any further neuro-diagnostic testing, at least as regard her visual symptoms.She will continue to follow with her local providers. I would be happy to see her again if there carey concern about worsening visual function. MD Obi Jules Department of Ophthalmology and Visual Sciences [email or web address] documented in this encounter Plan of Treatment Not on file documented as of this encounter Visit Diagnoses Diagnosis Visual field constriction, bilateral- Primary Macular edema, diabetic (HCC) Type II or unspecified type diabetes mellitus with ophthalmic manifestations, not stated as uncontrolled documented in this encounter Discontinued Medications Medication Sig Discontinue Reason Start Date End Da te metoclopramide (REGLAN) 5 mg tablet 2 times daily. Duplicate order 02/16/2016 08/25/2021 [employer] Dash 5 Pack Pod cartridgeIndications:Typ e 2 diabetes mellitus with hyperglycemia, with long-term current use of insulin ([facility]) Change pod daily Duplicate order 04/20/2020 08/25/2021 ergocalciferol (VITAMIN D) 50,000 unit capsule Duplicate order 02/16/2016 dapagliflozin (Farxiga) 10 mg tablet Take 1 tablet (10 mg total) by mouth daily Sample lot [id number] exp 10/09/2023 x 1 bx=7 tablets Duplicate order 06/22/2021 08/25/2021 dapagliflozin (Farxiga) 10 mg tablet Take 1 tablet (10 mg total) by mouth daily SAMPLE LOT [id number] EXP 10/09/2023 X 1 BX= 7 TABLETS Duplicate order 06/22/2021 08/25/2021 topiramate (TOPAMAX) 50 mg tablet 400 mg daily Duplicate order 08/25/2021 lamoTRIgine (LaMICtal) 200 mg tablet Duplicate order 07/27/2020 08/25/2021 lancets miscIndications:Type 2 diabetes mellitus with hyperglycemia, with long-term current use of insulin ([facility]) Use to check bg 7 times a day Duplicate order 09/24/2019 08/25/2021 documented as of this encounter Historical Medications * This list may reflect changes made after this encounter. atorvastatin (LIPITOR) 40 mg tablet 1 tablet (40 mg total) cetirizine (ZyrTEC) 10 mg tablet Take 1 tablet (10 mg total) by mouth daily diphenhydrAMINE (BENADRYL) 25 mg capsule Take 1 tablet/capsule (25 mg total) by mouth every 6 (six) hours as needed rimegepant (NURTEC ODT) tablet,disintegr ating Take 1 tablet (75 mg total) by mouth daily as needed 08/08/2021 albuterol 2.5 mg /3 mL (0.083 %) nebulizer solution albuterol sulfate 2.5 mg/3 mL (0.083 %) solution for nebulization PRN OneTouch Delica Plus Lancet 33 gauge misc 06/16/2021 lamoTRIgine (LaMICtal) 100 mg tablet Take 1 tablet (100 mg total) by mouth daily 05/29/2021 topiramate (TOPAMAX) 200 mg tablet 1 tablet (200 mg total) 2 (two) times a day 08/09/2021 fenofibrate (TRIGLIDE) 160 mg tablet Take 1 tablet (160 mg total) by mouth daily 4 ketorolac (ACULAR LS) 0.4 % drops Administer 1 drop into both eyes 2 (two) times a day [address] (PROTONIX) 40 mg EC tablet Take 1 tablet (40 mg total) by mouth 2 (two) times a day 3 phentermine (ADIPEX-P) 37.5 mg tablet 4 08/08/2021 2 insulin aspart (NovoLOG) 100 unit/mL vial for injection Novolog U-100 Insulin aspart 100 unit/mL subcutaneous solution 2 insulin aspart (NovoLOG) 100 unit/mL (3 mL) pen for injection Novolog Flexpen U-100 Insulin aspart 100 unit/mL (3 mL) subcutaneous INJECT UP TO 44 UNITS 3 TIMES A DAY BEFORE MEALS 2 added in this encounter Eye Exam Visual Acuity (Snellen - Linear) Right eye Left eye Dist cc 20/150 20/200 Dist ph cc 20/90 -1 20/150 Correction: Contacts Tonometry (Tonopen, 9:16 AM) Right eye Left eye Pressure STP STP Pupils Dark Light Shape React Right eye 5 3 Round Brisk Left eye 5 3 Round Brisk Visual Qiu (Counting fingers) Right eye Left eye Restrictions Partial outer superi or temporal, inferior temporal, superior nasal, inferior nasal deficiencies Partial outer superior temporal, inferior temporal, superior nasal, inferior nasal deficiencies Accurate saccades to targets in temporal qiu OU. Extraocular Movement Right eye Left eye Full, Ortho Full, Ortho Neuro/Psych Oriented x3: Yes Mood/Affect: Normal Dilation defers Color Right eye Left eye Ishihara control only 04/21 External Exam Right eye Left eye External Normal Normal Slit Lamp Exam Right eye Left eye Lids/Lashes Normal Normal Conjunctiva/Sclera White and quiet White and tyler et Cornea Clear Clear Anterior Chamber Deep and quiet Deep and quiet Iris Round and reactive Round and henry ctive Lens Nuclear sclerosis Nuclear sclero sis Vitreous Normal Normal Fundus Exam Right eye Left eye Disc no pallor or disc edema, mild PP A no pallor or disc edema, mild PPA C/D Ratio 0.3 0.45 Macula macular edema macular edema Care Teams Bi Manager Relationship Specialty Start Date End Date Deedee Low PA PCP - General 03/13/17 documented as of this encounter
--- OUTSIDE RECORDS SUMMARY | 2024-02-24 17:13 | XMS_ITS | Encounter Summary ---
Author Organization [facility] Address [address] [place] [address] Phone Care Team Providers Care Entry Level Sales Consultant Name Role Phone Jennifermary Deedee DOWELL Primary Care Pr ovider Encounter Details Date Type Department Care Team (Late st Contact Info) Description 08/24/2021 Orders Only [facility] Ophthalmology [address] [facility] [address] 6th [place] [address] Basilio Zurita MD [address] [facility] [address] [place] [address] Social History Tobacco Use Types Packs/Day [...] on file 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
--- OUTSIDE RECORDS SUMMARY | 2024-02-24 17:13 | XMS_ITS | Encounter Summary ---
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 Name Role Phone Deedee Low Primary Care Pr ovider Reason for Visit * Diagnostic Imaging (Routine) - Closed Specialty Diagnoses / Procedures Referred By Contac t Referred To Contact Diagnoses Decreased peripheral vision of both eyes Procedures OCT, Optic Nerve - OU - Both Eyes Basilio Zurita MD [address] [facility] [address] [place] [address] Phone: tel: fax: [facility] (All Locations) Referral ID Status Reason Start Date Expiration Date Visits Re quested Visits Authorized [id number] Closed 08/24/2021 09/23/2022 1 1 Encounter Details Date Type Department Care Team (Late st Contact Info) Description 08/25/2021 7:40 AM CDT Imaging Exam [facility] Ophthalmology [address] [facility] 6th [place] [address] Decreased peripheral vision of both [...] on file 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 Gender Identity Female 09/21/2019 9:02 PM CDT Sexual Orientation Not on file 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 Not on file Not on file documented as of this encounter Plan of Treatment Not on file documented as of this encounter Procedures Procedure Name Priority Date/Time Associated Diagnosis Comments OCT, RETINA - OU - BOTH EYES Routine 08/25/2021 8:55 AM CDT Decreased peripheral vision of both eyes OCT, OPTIC NERVE - OU - BOTH EYES Routine 08/25/2021 8:55 AM CDT Decreased peripheral vision of both eyes documented in this encounter Results * OCT, Retina - [...] Zurita MD OPHTH TOMOGRAPHY Fin al Result documented in this encounter Visit Diagnoses Diagnosis Decreased peripheral vision of both eyes documented in this encounter Care Teams Veneer Taping 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
--- OUTSIDE RECORDS SUMMARY | 2024-02-24 17:13 | XMS_ITS | Encounter Summary ---
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 Name Role Phone Deedee Low Primary Care Pr ovider Reason for Referral * MRI/CAT/PET Scan (Routine) - Closed Specialty Diagnoses / Procedures Referred By Angelita silva Referred To Contact Radiology Diagnoses Peripheral vision loss, bilateral Procedures MRI Brain Incl Orbits W WO Contrast CHG MRI BRAIN COMBO CHG MRI, FACE, NECK, COMBO Chalo Santiago MD [address] [address] Phone: tel: fax: [address] [phone] Referral ID Status Reason Start Date Expiration Date Visits Re quested Visits Authorized [id number] Closed 05/25/2021 11/21/2021 1 1 Reason for Visit * MRI/CAT/PET Scan (Routine) - Closed Specialty Diagnoses / Procedures Referred By Angelita silva Referred To Contact Radiology Diagnoses Peripheral vision loss, bilateral Procedures MRI Brain Incl Orbits W WO Contrast CHG MRI BRAIN COMBO CHG MRI, FACE, NECK, COMBO Chalo Santiago MD [address] [address] Phone: tel: fax: [facility] [address] [place] [address] Referral ID Status Reason Start Date Expiration Date Visits Re quested Visits Authorized [id number] Closed 05/25/2021 11/21/2021 1 1 Encounter Details Date Type Department Care Team (Latest Contact Info) Description 07/03/2021 5:14 PM CDT - 07/03/2021 11:59 PM CDT Hospital Encounter [facility] [address] [place] [address] Chalo Santiago MD [address] [address] Peripheral vision loss, bilateral Discharge Disposition: Discharge to home or self [...] on file 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 blood glucose diagnostic stripIndications: Type 2 diabetes mellitus with hyperglycemia, with long-term current use of insulin ([facility]) Use to check bg 7 times daily 500 each 1 09/24/2019 blood-glucose meter miscIndications:T ype 2 diabetes mellitus with hyperglycemia, with long-term current use of insulin ([facility]) Check bg daily 1 each 09/24/2019 buPROPion (WELLBUTRIN) 100 mg tablet Take 1 tablet (100 mg total) by mouth 2 (two) times a day carBAMazepine (TEGretol) 200 mg tablet Take 0.5 tablets (100 mg total) by mouth 3 (three) times a day 12/10/2019 diazePAM (VALIUM) 5 mg tablet Take 1 tablet (5 mg total) by mouth every 8 (eight) hours as needed 07/25/2020 fexofenadine (OCHOA) 180 mg tablet daily 02/16/2016 hydrOXYzine (ATARAX) 25 mg tablet Take 1 tablet (25 mg total) by mouth 1-2 nightly lamoTRIgine (LaMICtal) 100 mg tablet Take 1 tablet (100 mg total) by mouth daily 05/29/2021 montelukast (SINGULAIR) 10 mg tablet nightly 07/11/2020 OneTouch Delica Plus Lancet 33 gauge misc 06/16/2021 pen needle, diabetic (BD Ultra-Fine Florina Pen Needle) 32 gauge x needleIndications :Type 2 diabetes mellitus with hyperglycemia, with long-term current use of insulin (HCC) USE DIRECTED up to 7 times daily 700 each 11/26/2019 propranoloL (INDERAL) 20 mg tablet Take 1 tablet (20 mg total) by mouth 2 (two) times a day 12/24/2019 dapagliflozin (FARXIGA) 10 mg tablet Take 1 tablet (10 mg total) by mouth daily 30 tablet 5 06/22/2021 3 dapagliflozin (Farxiga) 10 mg tablet Take 1 tablet (10 mg total) by mouth daily Sample lot [id number] exp 10/09/2023 x 1 bx=7 tablets 76 tablet 06/22/2021 2 dapagliflozin (Farxiga) 10 mg tablet Take 1 tablet (10 mg total) by mouth daily SAMPLE LOT [id number] EXP 10/09/2023 X 1 BX= 7 TABLETS 7 tablet 06/22/2021 2 doxycycline (doxycycline) 100 mg capsuleIndication s:Chronic Suppression Take 1 tablet/capsule (100 mg total) by mouth daily 90 capsule 3 06/01/2021 2 ergocalciferol (VITAMIN D) 50,000 unit capsule 02/16/2016 2 hyoscyamine (LEVSIN) 0.125 mg tabletIndications :Urinary Incontinence TAKE 1 TABLET 3 TIMES DAILY PRN for pain 03/13/2017 2 insulin aspart (NovoLOG) 100 unit/mL vial for injection Use up to 160 units per day in insulin pump 150 mL 3 04/25/2021 3 insulin aspart U-100 (NovoLOG Flexpen U-100 Insulin) 100 unit/mL (3 mL) insulin pen Inject up to 44 units TIDAC 15 pen 12/14/2019 2 insulin glargine (BASAGLAR) 100 unit/mL (3 mL) pen for injection Basaglar KwikPen U-100 Insulin 100 unit/mL (3 mL) subcutaneous INJECT UP TO 60 UNITS UNDER THE SKIN AT BEDTIME 2 insulin pump cartridge (Omnipod Dash 5 Pack Pod) cartridge Omnipod Dash 5 Pack Insulin Pod subcutaneous cartridge 2 lamoTRIgine (LaMICtal) 200 mg tablet 07/27/2020 2 lancets miscIndications:T ype 2 diabetes mellitus with hyperglycemia, with long-term current use of insulin (HCC) Use to check bg 7 times a day 500 each 1 09/24/2019 2 Levemir FlexTouch U-100 Insuln 100 unit/mL (3 mL) insulin pen INJECT 50 UNITS UNDER THE SKIN NIGHTLY 45 mL 1 02/03/2020 2 lisinopriL (PRINIVIL,ZESTRIL ) 10 mg tablet Take 10 mg by mouth daily 02/16/2016 3 metoclopramide (REGLAN) 5 mg tablet 2 times daily. 02/16/2016 2 Omnipod Dash 5 Pack Pod cartridgeIndicati ons:Type 2 diabetes mellitus with hyperglycemia, with long-term current use of insulin (HCC) Change pod daily 90 each 3 04/20/2020 2 topiramate (TOPAMAX) 50 mg tablet 400 mg daily 2 ziprasidone (GEODON) 20 mg capsule Take 1 capsule (20 mg total) by mouth 2 (two) times a day with meals 07/25/2020 3 documented as of this encounter Discharge Disposition Disposition Code Departure Means Destination Discharge to home or self care documented in this encounter Plan of Treatment Not on file documented as of this encounter Procedures Procedure Name Priority Date/Time Associated Diagnosis Comments MRI BRAIN INCL ORBITS W WO CONTRAST Schedule Routine, Read Routine (OP Routine) 07/03/2021 7:55 PM CDT Peripheral vision loss, bilateral documented in this encounter Results * MRI Brain Incl Orbits W WO Contrast (07/03/2021 7:55 PM CDT) Anatomical Region Laterality Modality Head and Neck N/A Magnetic Resonan ce 07/04/2021 10:2 0 AM CDT Impressions 07/04/2021 10:20 AM CDT 1. No acute intracranial abnormality. No findings to explain patient's symptoms. The radiology attending physician has personally reviewed this study, and had reviewed and/or edited this written report and agrees with it. Electronically signed by: Romie Olmedo M.D. Narrative 07/04/2021 10:20 AM CDT EXAMINATION: Magnetic resonance imaging (MRI) of the brain and brainstem without and with contrast Magnetic resonance imaging (MRI) of the orbits without and with contrast HISTORY: Bilateral vision loss, visual field constriction TECHNIQUE: Multiplanar multi-weighted MRI of the brain and brainstem was performed without and with ??intravenous contrast using the orbital protocol. This included multiplanar high resolution imaging of the orbits and optic nerves using separate data set acquisitions. Contrast information: 18 mL gadoterate meglumine COMPARISON: ??None available. FINDINGS: Both globes are normal in shape and outline without proptosis. The extraocular muscles are normal in size. No intra- or extraconal masses are present. The intraconal fat is normal. The orbital mackenzie are intact. Both lacrimal glands are normal in appearance. Meckel's cave appears normal on each side. The carotid artery flow voids are normal. The optic chiasm is normal. The suprasellar cistern is normal. There are no areas of abnormal contrast enhancement. Incidental note of small subcentimeter pineal gland cyst measuring 5 mm. The scalp and calvarium are normal. The superior sagittal sinus demonstrates normal venous flow. The corpus callosum is normal in shape and signal intensity. The posterior fossa is unremarkable. The pituitary and sella are normal. The brainstem and craniocervical junction are unremarkable. Minimal nonspecific FLAIR hyperintensities in the periventricular white matter. Diffusion weighted images reveal no hyperintensities to suggest acute cerebral infarction. The susceptibility weighted sequences reveal no evidence of acute or chronic hemorrhage. The ventricles are normal in size and position without evidence of hydrocephalus. Small retention cyst in the right maxillary sinus. The visualized portions of the mastoids are unremarkable. Normal flow voids are demonstrated in the carotid arteries and basilar artery. Procedure Note Romie Olmedo MD - 07/04/2021 EXAMINATION: Magnetic resonance imaging (MRI) of the brain and brainstem without and with contrast Magnetic resonance imaging (MRI) of the orbits without and with contrast HISTORY: Bilateral vision loss, visual field constriction TECHNIQUE: Multiplanar multi-weighted MRI of the brain and brainstem was performed without and with intravenous contrast using the orbital protocol. This included multiplanar high resolution imaging of the orbits and optic nerves using separate data set acquisitions. Contrast information: 18 mL gadoterate meglumine COMPARISON: None available. FINDINGS: Both globes are normal in shape and outline without proptosis. The extraocular muscles are normal in size. No intra- or extraconal masses are present. The intraconal fat is normal. The orbital mackenzie are intact. Both lacrimal glands are normal in appearance. Meckel's cave appears normal on each side. The carotid artery flow voids are normal. The optic chiasm is normal. The suprasellar cistern is normal. There are no areas of abnormal contrast enhancement. Incidental note of small subcentimeter pineal gland cyst measuring 5 mm. The scalp and calvarium are normal. The superior sagittal sinus demonstrates normal venous flow. The corpus callosum is normal in shape and signal intensity. The posterior fossa is unremarkable. The pituitary and sella are normal. The brainstem and craniocervical junction are unremarkable. Minimal nonspecific FLAIR hyperintensities in the periventricular white matter. Diffusion weighted images reveal no hyperintensities to suggest acute cerebral infarction. The susceptibility weighted sequences reveal no evidence of acute or chronic hemorrhage. The ventricles are normal in size and position without evidence of hydrocephalus. Small retention cyst in the right maxillary sinus. The visualized portions of the mastoids are unremarkable. Normal flow voids are demonstrated in the carotid arteries and basilar artery. IMPRESSION: 1. No acute intracranial abnormality. No findings to explain patient's symptoms. The radiology attending physician has personally reviewed this study, and had reviewed and/or edited this written report and agrees with it. Electronically signed by: Romie Olmedo M.D. Chalo Santiago MD IMG MRI PROCEDURES Final Res ult documented in this encounter Visit Diagnoses Diagnosis Peripheral vision loss, bilateral documented in this encounter Administered Medications Inactive Administered Medications - up to 3 most recent administrations Medication Order MAR Action Action Date Dose Rate Site gadoterate meglumine 0.5 mmol/mL injection 18 mL 18 mL, intravenous, Once in imaging, contrast, Starting on 07/03/21 at 1923, For 1 dose Contrast Given 07/03/2021 7:24 PM CDT 18 mL documented in this encounter Orders Medications Ordered That Jorje ht Not Have Been Administered Count Last Ordered Date First Ordered Date gadoterate meglumine 0.5 mmo l/mL injection 18 mL 1 07/03/2021 documented in this encounter 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
--- OUTSIDE RECORDS SUMMARY | 2024-02-24 17:13 | XMS_ITS | Encounter Summary ---
Author Organization [facility] Address [address] [place] [address] Phone Care Team Providers Care Executive Director Of Marketing Name Role Phone Deedee Low Primary Care Pr ovider Reason for Referral * MRI/CAT/PET Scan (Routine) - Closed Specialty Diagnoses / Procedures Referred By Angelita silva Referred To Contact Radiology Diagnoses Peripheral vision loss, bilateral Procedures MRI Brain Incl Orbits W WO Contrast CHG MRI BRAIN COMBO CHG MRI, FACE, NECK, COMBO Chalo Santiago MD [address] [address] Phone: tel: fax: [address] [phone] Referral ID Status Reason Start Date Expiration Date Visits Re quested Visits Authorized [id number] Closed 05/25/2021 11/21/2021 1 1 * Diagnostic Imaging (Routine) - Closed Specialty Diagnoses / Procedures Referred By Angelita silva Referred To Contact Diagnoses Peripheral vision loss, bilateral Procedures Watkins Visual Field - OU - Both Eyes Chalo Santiago MD [address] [address] Phone: tel: fax: [facility] (All Locations) Referral ID Status Reason Start Date Expiration Date Visits Re quested Visits Authorized [id number] Closed 05/24/2021 06/23/2022 1 1 * Diagnostic Imaging (Routine) - Closed Specialty Diagnoses / Procedures Referred By Contac t Referred To Contact Diagnoses Peripheral vision loss, bilateral Procedures OCT, Retina - OU - Both Eyes Chalo Santiago MD [address] [place] [address] Phone: tel: fax: [facility] (All Locations) Referral ID Status Reason Start Date Expiration Date Visits Re quested Visits Authorized [id number] Closed 05/24/2021 06/23/2022 1 1 * Diagnostic Imaging (Routine) - Closed Specialty Diagnoses / Procedures Referred By Angelita silva Referred To Contact Diagnoses Peripheral vision loss, bilateral Procedures OCT, Optic Nerve - OU - Both Eyes Chalo Santiago MD [address] [place] [address] Phone: tel: fax: [facility] (All Locations) Referral ID Status Reason Start Date Expiration Date Visits Re quested Visits Authorized [id number] Closed 05/24/2021 06/23/2022 1 1 Encounter Details Date Type Department Care Team (Late st Contact Info) Description 05/24/2021 10:00 AM CDT Office Visit [facility] Ophthalmology [address] [place] [address] Health [address] [place] [address] Basilio Zurita MD [address] [place] [address] Peripheral vision loss, bilateral (Primary Dx) [...] on file Legal Sex Female 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 CC peripheral vision loss Referring provider: Dr. Seth [facility] SUBJECTIVE: Alannah Ruano is a 41 y.o. female 2016 (circa) she noted constant difficulty seeing off to the side. She saw Dr. Jensen (neurology) attributed this to migraine or trigeminal issues 2016 or 2017 she reportedly had two GTCs and was hospitalized over night. She apparently had an MRIand they saw an arachnoid cyst. She had a lumbar puncture which was abnormal. Ultimately meningitiswas diagnosed and deemed viral in origin; she was not treated with antibiotics. Her peripheral vision seemed to worsen around this time. [id number] she started to have blur OU which progressively worsened but did not seek care due to pandemic December [address] Mariee OD. Macular edema was noted and she was sent to see Dr. Seth at [facility]. Apparently she had FA and there was macular edema noted. 05/2021 She was started on ketoralac QID for macular edema 05/24/2021 office visit: She has difficulties with reading. Her contact prescription seems to be changing every few weeks. She currently has daily headaches with constant light sensitivity and sound sensitivity. She sees flashing lights that occur in both eyes multiple times daily. She has longstandi ng history of difficulty driving at night which has been worsening in the past few years. She feelsthat her visual field defects have been stable for the past 5 years. Past Medical History Past Medical History: Diagnosis Date ??? Anxiety ??? Asthma Asthma ??? Back pain ??? Cough ??? Depression ??? Diarrhea ??? Fatigue ??? Headache ??? HX OTHER MEDICAL Migraines ??? Hypercholesterolemia High cholesterol ??? Hypertension ??? Migraines ??? Muscle pain ??? Numbness and tingling ??? Pain with urination ??? Seizure (CMS/HCC) (HCC) ??? Type 2 diabetes mellitus (HCC) Family History Family History Problem Relation Age of Onset ??? Heart attack Father Family history of myocardial infarction - (Added by TW Conv) ??? Stroke Father ??? Migraines Father ??? Hypertension Father ??? Diabetes Father ??? Hypertension Sister Family history of hypertension - (Added by TW Conv) ??? Depression Sister Family history of depression - (Added by TW Conv) ??? Mental illness Sister FH: mental illness - (Added by TW Conv) ??? Migraines Sister Family history of migraine headaches - (Added by TW Conv) ??? Hypertension Sister Family history of hypertension - (Added by TW Conv) ??? Glaucoma Maternal Grandmother ??? Macular degeneration Maternal Grandmother Allergies Allergies Allergen Reactions ??? Mushroom Anaphylaxis ??? Nut Flavor Anaphylaxis MAINLY PECANS CAN TOLERATE PEANUTS Physical Exam Visual Acuity Right Left Dist ph cc 20/70 -2 20/150 +1 bottom up monocular diplopia OD sees 20/30 Z OD w/o ph sees 2 20/40 optotypes OD with ph sees 20/50 optotype OS Pupils Dark Light Shape React APD Right 4 3 Round Brisk - Left 4 3 Round Brisk - Color Color Right Left Ishihara 3/11 2.5/11 Stereo Stereo Fly: + Animals: 1/3 Confrontational Visual Lewis Visual Lewis Left Right Restrictions Partial outer superior temporal, inferior temporal, superior nasal, inferior nasal deficiencies Partial outer superior temporal, inferior temporal, superior nasal, inferior nasal deficiencies inconsistently could saccade to target in the periphery Extraocular Movement Extraocular Movement Right Left Full, Ortho Full, Ortho Main Ophthalmology Exam External Exam Right Left External Normal [...] 0.3 0.45 Macula macular edema macular edema Vessels Normal Normal Periphery Normal Normal OCT, Optic Nerve - OU - Both Eyes Component Value Flag Ref Range Units Status RNFL OS 79 micrometers Final RNFL OD 79 micrometers Final Right Eye Reliability was good. Average RNFL thickness 79 micrometers. Left Eye Reliability was good. Average RNFL thickness 79 micrometers. Notes Mild inferior RNFL thinning OU with mild average RNFL thinning OU OCT, Retina - OU - Both Eyes Component Value Flag Ref Range Units Status Central Macular Thickness OS 447 mircometers Final Central Macular Thickness OD 424 micrometers Final Right Eye Quality was good. Scan locations included subfoveal. Macular thickness was 424 micrometers. Left Eye Quality was good. Scan locations included subfoveal. Macular thickness was 447 mircometers. Notes ganglion cell layer (GCL) + inner plexiform layer (IPL) right eye (OD): unreliable ganglion cell layer (GCL) + inner plexiform layer (IPL) left eye (OS): unreliable macular thickening OU with cystoid macular edema GCL complex unreliable OU Color Fundus Photography - OU - Both Eyes Right eye (OD): macular edema, otherwise normal findings including optic nerve, vessels, and periphery Left eye (OS): macular edema, otherwise normal findings including optic nerve, vessels, and periphery Autofluorescence - OU - Both Eyes Hyperautofluorescence in the periphery OU which may reflect artifact Watkins Visual Field - OU - Both Eyes Severe generalized depression and constriction with size 5 STIM OU, worsened compared to outside size 3 HVF Linked Images Assessment/Plan Diagnoses and all orders for this visit: Peripheral vision loss, bilateral (Primary) - OCT, Optic Nerve - OU - Both Eyes - OCT, Retina - OU - Both Eyes - Color Fundus Photography - OU - Both Eyes - Autofluorescence - OU - Both Eyes - Watkins Visual Field - OU - Both Eyes - Vitamin A; Future - Folate; Future - RPR; Future - Vitamin B1; Future - Vitamin B12; Future - HIV 1/2 Antibody plus p24 Antigen Blood; Future - Copper, serum; Future Alannah Ruano presents to neuro-ophthalmology clinic with approximately 5- year history of peripheral vision loss and recent notation of macular edema OU. 05/24/2021 examination revealed reduced visual acuity, dyschromatopsia, and generalized visual field constriction although she was able to see motion and saccade to targets in the far periphery. There was no optic nerve pallor noted. Ancillary testing revealed macular edema on OCT and mild RNFL thinning OU. There were no clear abnormalities on fundus photography and autofluorescence other than the macular edema, although there were areasof hyperautofluorescence in the periphery which appeared artifactual in nature. Although there is no clear evidence of optic neuropathy, this is confounded by macular edema and unreliable GCL analysis, and there is reduced color vision and RNFL loss which could be consistent with optic neuropathy. The peripheral visual field loss constriction would not be expected to be related to optic neuropathy due to the pattern of defect, however theoretically bilateral occipital lesions could cause similar findings. More concerning however would be an occult retinal disorder which can cause visual field constriction. Some patients in the Retinitis Pigmentosa spectrum can develop macular edema and the fundus changes are not always dramatic until later in the course. Finally, we discussed the possibility of functional neurologic disorder as one of the etiologies of the visual field loss, although further work-up is needed to rule out other causes. Surprisingly, she has not been told that her visual field constriction would render her illegal to drive in [place] and [place] a. We did discuss the fact that her visual field testing today may not fully represent her true visual field but unfortunately, these would not meet legal criteria. We will plan a formal driving visual field at her next visit. Plan: Vitamin A, B1, B12, folate, RPR, HIV, Copper MRI brain/orbits w/wo ffERG OU Follow-up in 3-4 months with OCT and HVF We informed her that she does not currently meet criteria to legally drive in [place] Continue f/u with Dr. Seth Call with questions/concerns/clinical worsening Chalo Santiago MD Neuro-ophthalmology Fellow [facility] Patient seen with Dr. Zurita Cosigned by Basilio Zurita MD at 05/25/2021 10:55 AM CDT Associated attestation - Basilio Zurita MD - 05/25/2021 10:55 AM CDT I have seen and examined the patient. I agree with the assessment and plan as detailed by the NeuroOphthalmology fellow, Dr. Santiago. I have revised and edited the note as needed. MD Obi Jules Department of Ophthalmology and Visual Sciences [facility] [email or web address] 50 minutes were spent in review of records; independent review of available ophthalmic testing, laboratories, and imaging, as detailed above; reviewing the history obtained by the resident and/or criminal records technician; obtaining additional history from the patient; performing a detailed examination; counseling and educating the patient (and family); ordering appropriate diagnostic tests; documenting the encounter, including a detailed assessment and recommendations; and preparing correspondence with the patient's referring physician and primary care provider. documented in this encounter Miscellaneous Notes * Addendum Note - Angelika Mcdermott - 05/24/2021 10:00 AM CDTAddended by: ANGELIKA MCDERMOTT on: 06/09/2021 08:38 AM Modules accepted: Orders * Addendum Note - Angelika Mcdermott - 05/24/2021 10:00 AM CDTAddended by: ANGELIKA MCDERMOTT on: 06/09/2021 08:39 AM Modules accepted: Orders documented in this encounter Plan of Treatment Not on file documented as of this encounter Procedures Procedure Name Priority Date/Time Associated Diagnosis Comments AUTOFLUORESCENCE - OU - BOTH EYES Routine 05/24/2021 12:08 PM CDT Peripheral vision loss, bilateral WATKINS VISUAL FIELD - OU - BOTH EYES Routine 05/24/2021 12:08 PM CDT Peripheral vision loss, bilateral COLOR FUNDUS PHOTOGRAPHY - OU - BOTH EYES Routine 05/24/2021 12:08 PM CDT Peripheral vision loss, bilateral OCT, RETINA - OU - BOTH EYES Routine 05/24/2021 11:56 AM CDT Peripheral vision loss, bilateral OCT, OPTIC NERVE - OU - BOTH EYES Routine 05/24/2021 11:55 AM CDT Peripheral vision loss, bilateral documented in [...] MD IMG MRI PROCEDURES Final Res ult * Vitamin A (06/09/2021 8:40 AM CDT) Pathologist [facility] Vitamin A 48.1 32.5 - 78.0 mcg/dL [facility] Comment: ADDITIONAL INFORMATION This test was developed and its performance characteristics determined by [facility] in a manner consistent with CLIA requirements. This test has not been cleared or approved by the U.S. Food and Drug Administration. Test Performed by: [place] [address] Spray Gun Operator: Alexander Cerrato M.D. Ph.D.; CLIA# [id number] Blood 06/09/2021 8:40 AM CDT 06/09/2021 3:48 PM CDT Chalo Santiago MD LAB BLOOD ORDERABLES Final R esult Performing Organization Address [facility] de Phone Number [facility] [address] [facility] [place] [address] * HIV 1/2 Antibody plus p24 Antigen Blood (06/09/2021 8:40 AM CDT) [facility] HIV 1/2 ab + p24 ag Nonreactive Nonreactive [facility] Comment: Nonreactive for HIV-1 antigen and HIV-1/HIV-2 antibodies. No laboratory evidence of HIV infection. If acute HIV infection is suspected, consider testing for HIV-1 RNA. Blood 06/09/2021 8:40 AM CDT 06/09/2021 3:48 PM CDT Chalo Santiago MD LAB MICROBIOLOGY - GENERAL O RDERABLES Final Result Performing Organization Address City/[facility] Co de Phone Number [facility]O [address] [place] [address] * Vitamin B12 (06/09/2021 8:40 AM CDT) Pathologist [facility] Vitamin B12 669 230 - 1,250 pg/mL [facility] Blood 06/09/2021 8:40 AM CDT 06/09/2021 3:48 PM CDT Chalo Santiago MD LAB BLOOD ORDERABLES Final R esult Performing Organization Address [facility] de Phone Number [facility] Z[facility] [address] [address] [facility] [place] [address] * Vitamin B1 (06/09/2021 8:40 AM CDT) [facility] Thiamine (Vit B1) 167 70 - 180 nmol/L [facility] Comment: ADDITIONAL INFORMATION This test was developed and its performance characteristics determined by [facility] in a manner consistent with CLIA requirements. This test has not been cleared or approved by the U.S. Food and Drug Administration. Test Performed by: [place] [address] Spray Gun Operator: Alexander Cerrato M.D. Ph.D.; CLIA# [id number] Blood 06/09/2021 8:40 AM CDT 06/09/2021 3:48 PM CDT Chalo Santiago MD LAB BLOOD ORDERABLES Final R esult Performing Organization Address [facility] de Phone Number [facility] [address] [address] [facility] [place] [address] * RPR (06/09/2021 8:40 AM CDT) [facility] RPR Nonreactive Nonreactive [facility] Blood 06/09/2021 8:40 AM CDT 06/09/2021 3:48 PM CDT Chalo Santiago MD LAB MICROBIOLOGY - GENERAL O RDERABLES Final Result Performing Organization Address [facility] Co de Phone Number [facility] ZHA[facility] [address] [address] [place] [address] * Folate (06/09/2021 8:40 AM CDT) Folic acid 6.4 >=5.0 ng/mL [facility] Comment:Hemolysis present. R esults may be affected. Blood 06/09/2021 8:40 AM CDT 06/09/2021 3:48 PM CDT Chalo Santiago MD LAB BLOOD ORDERABLES Final R esult Performing Organization Address [facility] de Phone Number FERGEOVANNY ZHAO [address] [address] [facility] [place] [address] * Copper, serum (06/09/2021 8:40 AM CDT) Copper 1.43 0.75 - 1.45 mcg/mL [facility] Comment: ADDITIONAL INFORMATION This test was developed and its performance characteristics determined by [facility] in a manner consistent with CLIA requirements. This test has not been cleared or approved by the U.S. Food and Drug Administration. Test Performed by: [facility] [id number] [place] [address] Spray Gun Operator: Alexander Cerrato M.D. Ph.D.; CLIA# [id number] Blood 06/09/2021 8:40 AM CDT 06/09/2021 3:48 PM CDT Chalo Santiago MD LAB BLOOD ORDERABLES Final R esult Performing Organization Address [facility] Co de Phone Number [facility] ZHA[facility] [address] [address] [place] [address] * Autofluorescence - OU - Both Eyes (05/24/2021 12:08 PM CDT) Anatomical Region Laterality Modality Head Other Narrative 05/24/2021 4:46 PM CDT Hyperautofluorescence in the periphery OU which may reflect artifact Chalo Santiago MD OPHTH PHOTOGRAPHY Edited Res ult - Final * Watkins Visual Field - OU - Both Eyes (05/24/2021 12:08 PM CDT) Anatomical Region Laterality Modality Head Visual Field Narrative 05/24/2021 4:42 PM CDT Severe generalized depression and constriction with size 5 STIM OU, worsened compared to outside size 3 HVF Chalo Santiago MD OPHTH VISUAL FIELD Edited Re sult - Final * Color Fundus Photography - OU - Both Eyes (05/24/2021 12:08 PM CDT) Anatomical Region Laterality Modality Head Fundus Photograp hy Narrative 05/24/2021 4:45 PM CDT Right eye (OD): macular edema, otherwise normal findings including optic nerve, vessels, and periphery Left eye (OS): macular edema, otherwise normal findings including optic nerve, vessels, and periphery Chalo Santiago MD OPHTH PHOTOGRAPHY Edited Res ult - Final * OCT, Retina - OU - Both Eyes (05/24/2021 11:56 AM CDT) Pathologist [facility] Central Macular Thickness OS 447 mircometers CONTINUUM Central Macular Thickness OD 424 micrometers CONTINUUM Anatomical Region Laterality Modality Head Optical Coherenc e Tomography Narrative 05/24/2021 11:56 AM CDT Right Eye Quality was good. Scan locations included subfoveal. Macular thickness was 424 micrometers. Left Eye Quality was good. Scan locations included subfoveal. Macular thickness was 447 mircometers. Notes ganglion cell layer (GCL) + inner plexiform layer (IPL) right eye (OD): unreliable ganglion cell layer (GCL) + inner plexiform layer (IPL) ??left eye (OS): unreliable macular thickening OU with cystoid macular edema GCL complex unreliable OU Chalo Santiago MD OPHTH TOMOGRAPHY Edited Resu lt - Final * OCT, Optic Nerve - OU - Both Eyes (05/24/2021 11:55 AM CDT) RNFL OS 79 micrometers CONTINUUM RNFL OD 79 micrometers CONTINUUM Anatomical Region Laterality Modality Head Optical Coherenc e Tomography Narrative 05/24/2021 11:55 AM CDT Right Eye Reliability was good. Average RNFL thickness 79 micrometers. Left Eye Reliability was good. Average RNFL thickness 79 micrometers. Notes Mild inferior RNFL thinning OU with mild average RNFL thinning OU Chalo Santiago MD OPHTH TOMOGRAPHY Edited Resu lt - Final documented in this encounter Visit Diagnoses Diagnosis Peripheral vision loss, bilateral- Primary Peripheral vision loss, bilateral documented in this encounter Historical Medications * This list may reflect changes made after this encounter. buPROPion (WELLBUTRIN) 100 mg tablet Take 1 tablet (100 mg total) by mouth 2 (two) times a day added in this encounter Eye Exam Visual Acuity Right eye Left eye Dist ph cc 20/70 -2 20/150 +1 bottom up monocular diplopia OD sees 20/30 Z OD w/o ph sees 2 20/40 optotypes OD with ph sees 20/50 optotype OS Pupils Dark Light Shape React APD Right eye 4 3 Round Brisk - Left eye 4 3 Round Brisk - Visual Lewis Right eye Left eye Restrictions Partial outer superi or temporal, inferior temporal, superior nasal, inferior nasal deficiencies Partial outer superior temporal, inferior temporal, superior nasal, inferior nasal deficiencies inconsistently could saccade to target in the periphery Extraocular Movement Right eye Left eye Full, Ortho Full, Ortho Neuro/Psych Oriented x3: Yes Mood/Affect: Normal Color Right eye Left eye Ishihara 3 2.5/11 Stereo Fly: + Animals: 03/13 External Exam Right eye Left eye External [...] 0.3 0.45 Macula macular edema macular edema Vessels Normal Normal Periphery Normal Normal Care Teams Executive Director Of Marketing Relationship Specialty Start Date End Date Deedee Low PA PCP - General 03/13/17 documented as of this encounter
--- OUTSIDE RECORDS SUMMARY | 2024-02-24 17:13 | XMS_ITS | Encounter Summary ---
Author Organization [facility] Address [address] [place] [address] Care Team Providers Care Position Classifier Name Role Phone ZeyadDeedee العلي Aylin DOWELL Primary Care Pr ovider Reason for Visit * Reason Comments Boils Encounter Details Date Type Department Care Team (Late st Contact Info) Description 06/01/2021 2:45 PM CDT Office Visit [facility] [address] [place] [phone] Jessy Bonner, SPORTS MARKETING COORDINATOR [address] [address] Recurrent boils (Primary Dx) Social History Tobacco [...] on file Legal Sex Female 10:18 AM PEDIATRIC OPHTHALMOLOGIST Gender Identity Female 09/21/2019 9:02 PM CDT Sexual Orientation Not on file 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 Not on file Not on file documented as of this encounter Last Filed Vital Signs Vital Sign Reading Time Taken Comments Blood Pressure - - Pulse - - Temperature - - Respiratory Rate - - Oxygen Saturation - - Inhaled Oxygen Concentration - - Weight 100.2 kg (220 lb 14.4 oz) 06/01/2021 2:44 PM CDT Height - - Body Mass Index 37.92 03/30/2021 1:34 PM PEDIATRIC OPHTHALMOLOGIST documented in this encounter Ordered Prescriptions Prescription Sig Dispense Quantity Refills Last Filled Start Date End Date doxycycline (doxycycline) 100 mg capsuleIndications: Chronic Suppression Take 1 tablet/caps ule (100 mg total) by mouth daily 90 capsule 3 06/01/2021 11/23/2021 documented in this encounter Progress Notes * Jessy Bonner, SOPHIA - 06/01/2021 2:45 PM CDT Subjective/Objective Patient ID: Alannah Ruano is a 41 y.o. female. Chief Complaint Chief Complaint Patient presents with ??? Boils HPI HPI Alannah Ruano is a 41-year old female with history of hypertension, diabetes mellitus type II, depression, s/p gastric sleeve presents today for follow-up regarding recurrent boils. She has been onsuppressive therapy with oral doxycycline for the past two years. She develops occasional episodes of breakthrough boils mostly associated with insulin pump sites. She reports that overall incidence remains much improved compared to prior to initiation of antibiotic suppression. Her most recently episode was 3 weeks ago in which ran a low-grade fever and boil eventually spontaneously drained and resolved. Last A1c on 03/30/21 was 5.6. She washes with Hibiclens ever so often as previously recommended. She also sometimes uses topical antibiotics to boils and cleanses new insulin pump sites with isopropyl alcohol prior to site rotation. Past Medical History: Diagnosis Date ??? Anxiety ??? Asthma Asthma ??? Back pain ??? Cough ??? Depression ??? Diarrhea ??? Fatigue ??? Headache ??? HX OTHER MEDICAL Migraines ??? Hypercholesterolemia High cholesterol ??? Hypertension ??? Migraines ??? Muscle pain ??? Numbness and tingling ??? Pain with urination ??? Seizure (CMS/HCC) (HCC) ??? Type 2 diabetes mellitus (HCC) Social History Socioeconomic History ??? Marital status: Single Spouse name: Not on file ??? Number of children: Not on file ??? Years of education: Not on file ??? Highest education level: Not on file Occupational History ??? 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 Smoking status: Former Smoker ??? Smokeless tobacco: Never Used ??? Tobacco comment: smoked for 3 years Substance and Sexual Activity ??? Alcohol use: Yes ??? Drug use: Not on file Comment: Rare alcohol use ??? Sexual activity: Not on file Other Topics Concern ??? Not on file Social History Narrative No alcohol use : (Added by TW Conv) Social Determinants of Health Financial Resource Strain: Not on file Food Insecurity: Not on file Transportation Needs: Not on file Physical Activity: Not on file Stress: Not on file Social Connections: Not on file Intimate Partner Violence: Not on file Housing Stability: Not on file Family History Problem Relation [...] Maternal Grandmother ??? Macular degeneration Maternal Grandmother Review of Systems Constitutional: Negative. HENT: Negative. Eyes: Negative. Respiratory: Negative. Cardiovascular: Negative. Gastrointestinal: Negative. Musculoskeletal: Negative. Skin: Negative. Neurological: Negative. Psychiatric/Behavioral: Negative. All other systems reviewed and are negative. Breast: Negative. Physical Exam Vitals reviewed. Constitutional: Appearance: Normal appearance. HENT: Head: Normocephalic. Nose: Nose normal. Mouth/Throat: Mouth: Mucous membranes are dry. Eyes: Conjunctiva/sclera: Conjunctivae normal. Cardiovascular: Rate and Rhythm: Normal rate and regular rhythm. Pulmonary: Effort: Pulmonary effort is normal. Abdominal: Palpations: Abdomen is soft. Skin: General: Skin is warm and dry. Neurological: General: No focal deficit present. Mental Status: She is alert and oriented to person, place, and time. Psychiatric: Mood and Affect: Mood normal. Behavior: Behavior normal. Thought Content: Thought content normal. Judgment: Judgment normal. Wt 100.2 kg (220 lb 14.4 oz) BMI 37.92 kg/m?? Diagnoses and all orders for this visit: Recurrent boils (Primary) - mupirocin (BACTROBAN) 2 % ointment - doxycycline (doxycycline) 100 mg capsule; Take 1 tablet/capsule (100 mg total) by mouth daily Alannah Ruano is a 41-year old female with history of hypertension, diabetes mellitus type II, depression, s/p gastric sleeve presents today for follow-up regarding recurrent boils. Continues to dorelatively well on oral suppressive therapy with doxycycline. Instructed patient to call if develops breakthrough boils w/wo fevers, chills as we may need to treat breakthrough episodes. Recommended showering with Hibiclens prior to insulin pump site rotation. Apply mupirocin topical oint to bilateral nares BID x 5 days for bacterial decolonization. Follow-up in 1 year or sooner if necessary. documented in this encounter Plan of Treatment Not on file documented as of this encounter Visit Diagnoses Diagnosis Recurrent boils- Primary Carbuncle and furuncle of unspecified site documented in this encounter Discontinued Medications Medication Sig Discontinue Reason Start Date End Da te esomeprazole DR (NexIUM) 20 mg capsule Nexium 20 mg capsule,delayed release Take 1 capsule every day by oral route. Therapy completed 05/25/2019 06/01/2021 fenofibrate (TRIGLIDE) 160 mg tablet daily. Therapy completed 02/16/2016 06/01/2021 doxycycline (doxycycline) 100 mg capsuleIndications:Skin/ Soft Tissue Infection Take 1 tablet/capsule (100 mg total) by mouth daily Duplicate order 05/26/2020 06/01/2021 documented as of this encounter Orders Medications Ordered That Jorje ht Not Have Been Administered Count Last Ordered Date First Ordered Date mupirocin (BACTROBAN) 2 % ointment 1 2021 documented in this encounter Care Teams Position Classifier Relationship Specialty Start Date End Date Deedee Low PA PCP - General 03/13/17 documented as of this encounter
--- OUTSIDE RECORDS SUMMARY | 2024-02-24 17:13 | XMS_ITS | Encounter Summary ---
Author Organization [facility] Address [address] [place] [address] Care Team Providers Care Auto Painter Helper Name Role Phone Deedee Low Primary Care Pr ovider Reason for Visit * Reason Onset Date Comments Prior Auth 01/31/2022 Ozempic Encounter Details Date Type Department Care Team (Late st Contact Info) Description 01/31/2022 [facility]phone [facility] [address] [facility] [address] [place] [phone] [place] [address] 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 Status: Approved Coverage Start Date: 01/31/2022 Coverage End Date: 01/31/2023 Kaur: [id number] LMOM at [facility] informing them of approval FFIN PLANT SWEATER OPERATOR documented in this encounter Plan of Treatment Not on file documented as of this encounter Visit Diagnoses Not on filedocumented in this encounter Care Teams Auto Painter Helper Relationship Specialty Start Date End Date Deedee Low PA PCP - General 03/13/17 documented as of this encounter
--- OUTSIDE RECORDS SUMMARY | 2024-02-24 17:13 | XMS_ITS | Encounter Summary ---
Author Organization [facility] Address [address] [place] [address] Care Team Providers Care Lean Manufacturing Specialist Name Role Phone Deedee Low Primary Care Pr ovider Encounter Details Date Type Department Care Team (Late st Contact Info) Description 06/09/2021 3:20 PM CDT Lab [address] [address] Peripheral vision loss, bilateral; Type 2 diabetes mellitus with hyperglycemia, with long-term current use of insulin ([facility]) (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) (HCC) VITAMIN A Routine 06/09/2021 8:40 AM CDT Peripheral vision loss, bilateral RPR Routine 06/09/2021 8:40 AM CDT Peripheral vision loss, bilateral VITAMIN B1 Routine 06/09/2021 8:40 AM CDT Peripheral vision loss, bilateral FOLATE Routine 06/09/2021 8:40 AM CDT Peripheral vision loss, bilateral VITAMIN B12 Routine 06/09/2021 8:40 AM CDT Peripheral vision loss, bilateral documented in this encounter Results * (ABNORMAL) Albumin Creatinine Ratio, Urine (06/09/2021 8:40 AM CDT) Albumin Ur 47.9 mg/L AI[facility] ZHAO Comment: Interpretive Data No reference range established. Current interpretive data was last revised 2018. Creatinine Ur 107.7 mg/dL [facility]O Comment: Interpretive Data No reference range established. Current interpretive data was last revised 2018. Albumin Creatinine Ratio, Ur 44(H) 1 - 29 mg/g [facility] Urine 06/09/2021 8:40 AM CDT 06/09/2021 3:48 PM CDT us Kurt Saini MD LAB URINE ORDERABLES Final Resul t AILEEN ZHAO [id number] [address] Department [place] [address] * Copper, serum (06/09/2021 8:40 AM CDT) Copper 1.43 0.75 - 1.45 mcg/mL AILEEN Comment: ADDITIONAL INFORMATION This test was developed and its performance characteristics determined by [facility] in a manner consistent with CLIA requirements. This test has not been cleared or approved by the U.S. Food and Drug Administration. Test Performed by: [facility] [address] [place] [address] Vat Washer: Alexander Cerrato M.D. Ph.D.; CLIA# [id number] Blood 06/09/2021 8:40 AM CDT 06/09/2021 3:48 PM CDT Chalo Santiago MD LAB BLOOD ORDERABLES Final R esult Performing Organization Address [facility] Co de Phone Number AILEEN [phone] [address] [employer] [place], [place] [phone] * Folate (06/09/2021 8:40 AM CDT) Folic acid 6.4 >=5.0 ng/mL [facility] Comment:Hemolysis present. R esults may be affected. Blood 06/09/2021 8:40 AM CDT 06/09/2021 3:48 PM CDT Chalo Santiago MD LAB BLOOD ORDERABLES Final R esult Performing Organization Address [facility] Co de Phone Number AILEEN [phone] [address] [facility] [place] [address] * RPR (06/09/2021 8:40 AM CDT) RPR Nonreactive Nonreactive [facility] Blood 06/09/2021 8:40 AM CDT 06/09/2021 3:48 PM CDT Chalo Santiago MD LAB MICROBIOLOGY - GENERAL O RDERABLES Final Result Performing Organization Address [facility] Co de Phone Number AILEEN ZHAO [phone] [address] [place] [address] * Vitamin B1 (06/09/2021 8:40 AM CDT) Pathologist [facility] Thiamine (Vit B1) 167 70 - 180 nmol/L [facility] Comment: ADDITIONAL INFORMATION This test was developed and its performance characteristics determined by [facility] in a manner consistent with CLIA requirements. This test has not been cleared or approved by the U.S. Food and Drug Administration. Test Performed by: [place] [address] Vat Washer: Alexander Cerrato M.D. Ph.D.; CLIA# [id number] Blood 06/09/2021 8:40 AM CDT 06/09/2021 3:48 PM CDT us Chalo Santiago MD LAB BLOOD ORDERABLES Final R esult Performing Organization Address [facility] de Phone Number AILEEN ZHAO [phone] [address] [facility] [id number] [address] * Vitamin B12 (06/09/2021 8:40 AM CDT) [facility] Vitamin B12 669 230 - 1,250 pg/mL [facility] Blood 06/09/2021 8:40 AM CDT 06/09/2021 3:48 PM CDT Chalo Santiago MD LAB BLOOD ORDERABLES Final R esult Performing Organization Address [facility] Co de Phone Number AILEEN ZHAO [phone] [address] [facility] [id number] [address] * HIV 1/2 Antibody plus p24 Antigen Blood (06/09/2021 8:40 AM CDT) [facility] HIV 1/2 ab + p24 ag Nonreactive Nonreactive [facility] Comment: Nonreactive for HIV-1 antigen and HIV-1/HIV-2 antibodies. No laboratory evidence of HIV infection. If acute HIV infection is suspected, consider testing for HIV-1 RNA. Blood 06/09/2021 8:40 AM CDT 06/09/2021 3:48 PM CDT Chalo Santiago MD LAB MICROBIOLOGY - GENERAL O RDERABLES Final Result Performing Organization Address [facility] Co de Phone Number [facility] [address] [address] Department [employer] [place], [place] [id number] * Vitamin A (06/09/2021 8:40 AM CDT) [facility] Vitamin A 48.1 32.5 - 78.0 mcg/dL AILEEN Comment: ADDITIONAL INFORMATION This test was developed and its performance characteristics determined by [facility] in a manner consistent with CLIA requirements. This test has not been cleared or approved by the U.S. Food and Drug Administration. Test Performed by: [facility] [place] [address] Vat Washer: Alexander Cerrato M.D. Ph.D.; CLIA# [id number] Blood 06/09/2021 8:40 AM CDT 06/09/2021 3:48 PM CDT Chalo Santiago MD LAB BLOOD ORDERABLES Final R esult Performing Organization Address [facility] de Phone Number [facility] [address] [address] Department [employer] [place], [place] [phone] documented in this encounter Visit Diagnoses Diagnosis Peripheral vision loss, bilateral Type 2 diabetes mellitus with hyperglycemia, with long-term current use of insulin (HCC) documented in this encounter Care Teams Lean Manufacturing Specialist Relationship Specialty Start Date End Date Deedee Low PA PCP - General 03/13/17 documented as of this encounter
--- OUTSIDE RECORDS SUMMARY | 2024-02-24 17:13 | XMS_ITS | Encounter Summary ---
Author Organization [facility] Address [address] [place] [address] Care Team Providers Care Research Coordinator Name Role Phone ZeyadDeedee العليjacob DOWELL Primary Care Pr ovider Reason for Visit * Reason Comments Fall Back Pain * Auth/Cert Specialty Diagnoses / Procedures Referred By Contac t Referred To Contact Diagnoses Lumbar puncture headache Procedures n/a Referral ID Status Reason Start Date Expiration Date Visits Re quested Visits Authorized [id number] 1 1 Encounter Details Date Type Department Care Team (Latest Contact Info) Description 09/09/2021 7:45 AM CDT - 09/12/2021 3:32 PM CDT Hospital Encounter [facility] [address] [place] [address] Dax Pickard MD [address] [place] [address] Virgilio Wright MD [address] [place] [address] Leland Brower MD [address] [facility] [address] [place] [address] Charleen Guzman MD [address] [place] [address] Lin Miles MD [address] [place] [address] Italia Ruiz MD [address] [place] [address] Lumbar puncture headache (Primary Dx); Fall, initial encounter; Head injury, initial encounter Discharge Disposition: Discharge to home or self [...] on file 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 Gender Identity Female 09/21/2019 9:02 PM CDT Sexual Orientation Not on file 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 Not on file Not on file Not on file documented as of this encounter Last Filed Vital Signs Vital Sign Reading Time Taken Comments Blood Pressure 144/85 09/12/2021 11:03 AM CDT Pulse 57 09/12/2021 11:03 AM CDT Temperature 36.4 ??C (97.52 ??F) 09/12/2021 8:03 AM C DT Respiratory Rate 16 09/12/2021 8:03 AM CDT Oxygen Saturation 98% 09/12/2021 11:03 AM CDT Inhaled Oxygen Concentration - - Weight 95.9 kg (211 lb 6.4 oz) 09/09/2021 9:24 P M CDT Height 162.6 cm (5' 4.02 ) 09/09/2021 9:24 PM CD T Body Mass Index 36.27 09/09/2021 9:24 PM CDT documented in this encounter Discharge Summaries * Debbie Smith, SOPHIA - 09/12/2021 3:32 PM CDT Inpatient Discharge Summary BRIEF OVERVIEW Admitting Provider: Dax Pickard MD Discharge Provider: No att. 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 DETAILS OF HOSPITAL STAY Presenting Problem/History of Present Illness: Ms Ruano, 41 yo female with hx of obesity, T2DM, diabetic macular edema, migraine, trigeminal neuralgia, HTN, HLD, who presented to the ED for 2 days of headache, n/v and an episode of syncope. ?? Hx is obtained from the patient and as per chart review of multiple EMR system. ?? Patient follows with Dr Hernandez at [facility] for her migraine, trigeminal neuralgia, optic neuropathy and hemibody numbness. As per his recommendation, she underwent brain MRI and LP to rule out Multiple sclerosis. Her MRI brain showed no IC abnormality. She underwent LP on 09/07/21 and since then ishaving intractable generalized throbbing positional headache (worse with sitting or standing up) that radiates to her back and almost all the way down to her toes. She denies any resemblance of her current headache to her usual migraine headaches. She also endorses associated dizziness, intractablenausea and bilious non bloody vomiting. She also reported that due to the above, she was not able to eat anything substantial apart from some water. She has not been also able to take any of her medications. ROS is also positive for mild sore throat etc. She denies fever, chills, runny nose, chest pain, SOB, bowel changes, abdominal pain etc. She was originally planning to follow-up with anesthesia at [place] were her procedure was performed in order to receive an epidural blood patch. ??However, she was in town today for an event and experienced dizziness and lightheadedness while in the bathroom sitting down and fell from a sitting position hitting her head on the floor. ??She believes she lost consciousness for a short period of time because her friends told her they were trying to get into the bathroom and she was not responding. ??She complains of right-sided head pain after the fall and believes that her nausea is worsened. ??She denies any other injuries,??including neck pain.She presented with the above mentioned symptoms to [facility] ED. ?? Vital signs are reviewed and are significant elevation of systolic (ranging from 117-170) and diastolic blood pressure (ranging from 67-114). Labs significant for mild neutrophilic leukocytosis (2.8), increased hemoglobin (15.8). CT head without evidence of acute intracranial abnormality or subarachnoid hemorrhage. Patient has received Tylenol 1 g x 2, Compazine 5 mg. Benadryl 25 mg, droperidol 0.625 mg, ketorolac 30 mg, LR bolus 1 L in the ED and is admitted for further medical management. Hospital Course: #Post LP headache Patient presented with intractable BATES and dizziness after recent outpatient LP. She was hydrated with IVF and treated with analgesics and antiemetics w/o improvement. Pain management was consulted and performed epidural blood patch. BATES resolved and she was discharged home. #DM Endocrine was consulted and managed her insulin pump while inpatient. Continued at home settings atco. Script sent to pharmacy for glucagon kit. #Hx of migraines Continued on home medications. #HTN Continued on lisinopril. Discharge Details Physical Exam at Discharge: Discharge Condition: good Pulse: 57 Resp: 16 BP: 144/85 Temp: 36.4 ??C (97.52 ??F) Weight: 95.9 kg (211 lb 6.4 oz) Discharge Disposition: Discharge to home or self care Code Status at Discharge: full code Discharge Instructions: Activity Instructions Discharge activity: Resume normal activity Diet Instructions Adult Discharge Diet Diet Type: Return to previous diet Other Instructions Call provider for: Temperature -Temperature greater than 101 degrees F Call provider for: difficulty breathing or chest pain Call provider for: persistent dizziness or light-headedness Call provider for: persistent nausea or vomiting Call provider for: redness, tenderness, or signs of infection (pain, swelling, redness, odor or green/yellow discharge around incision site) Call provider for: severe uncontrolled pain Call provider for: headache, visual disturbances, weakness and speech changes Discharge Medications: Current Medications TAKE these medications * albuterol 2.5 mg /3 mL (0.083 %) nebulizer solution albuterol sulfate 2.5 mg/3 mL (0.083 %) solution for nebulization PRN * albuterol ER 8 mg 12 hr tablet PATIENT TAKES 8.5 GM DAILY PRN Commonly known as: VOSPIRE ER atorvastatin 20 mg tablet atorvastatin 20 mg tablet TAKE 1 TABLET BY MOUTH EVERY DAY IN THE EVENING Commonly known as: LIPITOR azelastine 137 mcg (0.1 %) nasal spray azelastine 137 mcg (0.1 %) nasal spray aerosol [place] 2 sprays every day by nasal route for 31 days. Commonly known as: ASTELIN Baqsimi 3 mg/actuation spray,non-aerosol One spray into one nostril once as directed by provider for low blood sugar. Generic drug: glucagon blood glucose diagnostic strip Use to check bg 7 times daily blood-glucose meter misc Check bg daily buPROPion 100 mg tablet Take 100 mg by mouth 2 (two) times a day Commonly known as: WELLBUTRIN carBAMazepine 200 mg tablet Take 100 mg by mouth 3 (three) times a day Commonly known as: TEGretol cetirizine 10 mg tablet Take 10 mg by mouth daily Commonly known as: ZyrTEC dapagliflozin 10 mg tablet Take 1 tablet (10 mg total) by mouth daily Commonly known as: FARXIGA diazePAM 5 mg tablet Take 5 mg by mouth every 8 (eight) hours as needed Commonly known as: VALIUM diphenhydrAMINE 25 mg capsule Take 25 mg by mouth every 6 (six) hours as needed Commonly known as: BENADRYL doxycycline 100 mg capsule Take 1 tablet/capsule (100 mg total) by mouth daily For: Chronic Suppression Commonly known as: VIBRAMYCIN fenofibrate 160 mg tablet Take 160 mg by mouth daily Commonly known as: TRIGLIDE fexofenadine 180 mg tablet TAKE 1 TABLET DAILY NEEDED. Commonly known as: OCHOA hydrOXYzine 25 mg tablet Take 25 mg by mouth 1-2 nightly Commonly known as: ATARAX insulin aspart 100 unit/mL vial for injection Use up to 160 units per day in insulin pump Commonly known as: NovoLOG ketorolac 0.4 % drops Administer 1 drop into both eyes 2 (two) times a day Commonly known as: ACULAR LS lamoTRIgine 100 mg tablet Take 100 mg by mouth daily Commonly known as: LaMICtal lisinopriL 10 mg tablet Take 10 mg by mouth daily Commonly known as: PRINIVIL,ZESTRIL montelukast 10 mg tablet Commonly known as: SINGULAIR Omnipod Dash Pods (Gen 4) cartridge Omnipod Dash 5 Pack Insulin Pod subcutaneous cartridge Generic drug: insulin pump cart,cont inf,BT OneTouch Delica Plus Lancet 33 gauge misc Generic drug: lancets pantoprazole DR 40 mg EC tablet Take 40 mg by mouth 2 (two) times a day Commonly known as: PROTONIX pen needle, diabetic 32 gauge x /32 needle USE DIRECTED up to 7 times daily Commonly known as: BD Ultra-Fine Florina Pen Needle phentermine 37.5 mg tablet Commonly known as: ADIPEX-P propranoloL 20 mg tablet Take 20 mg by mouth 2 (two) times a day Commonly known as: INDERAL rimegepant tablet,disintegrating Take 75 mg by mouth daily as needed Commonly known as: NURTEC ODT rizatriptan 10 mg tablet Take 10 mg by mouth once as needed for migraine May repeat in 2 hours if unresolved. Do not exceed 30 mg in 24 hours. For: a migraine headache Commonly known as: MAXALT topiramate 200 mg tablet 200 mg 2 (two) times a day Commonly known as: TOPAMAX ziprasidone 20 mg capsule Take 20 mg by mouth 2 (two) times a day with meals Commonly known as: GEODON * This list has 2 medication(s) that are the same as other medications prescribed for you. Read the directions carefully, and ask your doctor or other care provider to review them with you. Outpatient Follow-Up: Future Appointments Date Time Provider Department Center 11/23/2021 1:00 PM Deedee Hussein PA ENDO [facility] 05/31/2022 1:00 PM Sergio Rios MD [facility] Contact Information for Follow-ups Deedee Low PA Specialty: Physician Barometers Calibrator, Internal Medicine Relationship: PCP - General [address] [address] Next Steps: Follow up Cosigned by Italia Ruiz MD at 09/12/2021 5:45 PM CDT documented in this encounter Medications at Time of Discharge albuterol 2.5 mg /3 mL (0.083 %) nebulizer solution albuterol sulfate 2.5 mg/3 mL (0.083 %) solution for nebulization PRN albuterol ER (VOSPIRE ER) 8 mg 12 hr tablet every 12 (twelve) hours 02/16/2016 atorvastatin (LIPITOR) 40 mg tablet 1 tablet (40 mg total) azelastine (ASTELIN) 137 mcg (0.1 %) nasal spray azelastine 137 mcg (0.1 %) nasal spray aerosol [place] 2 sprays every day by nasal route for 31 days. blood glucose diagnostic stripIndications: Type 2 diabetes mellitus with hyperglycemia, with long-term current use of insulin ([facility]) Use to check bg 7 times daily 500 each 1 09/24/2019 blood-glucose meter miscIndications:T ype 2 diabetes mellitus with hyperglycemia, with long-term current use of insulin ([facility]) Check bg daily 1 each 09/24/2019 buPROPion (WELLBUTRIN) 100 mg tablet Take 1 tablet (100 mg total) by mouth 2 (two) times a day carBAMazepine (TEGretol) 200 mg tablet Take 0.5 tablets (100 mg total) by mouth 3 (three) times a day 12/10/2019 cetirizine (ZyrTEC) 10 mg tablet Take 1 tablet (10 mg total) by mouth daily diazePAM (VALIUM) 5 mg tablet Take 1 tablet (5 mg total) by mouth every 8 (eight) hours as needed 07/25/2020 diphenhydrAMINE (BENADRYL) 25 mg capsule Take 1 tablet/capsule (25 mg total) by mouth every 6 (six) hours as needed fexofenadine (OCHOA) 180 mg tablet daily 02/16/2016 glucagon (Baqsimi) 3 mg/actuation spray,non-aerosol One spray into one nostril once as directed by provider for low blood sugar. 1 each 09/12/2021 hydrOXYzine (ATARAX) 25 mg tablet Take 1 tablet (25 mg total) by mouth 1-2 nightly lamoTRIgine (LaMICtal) 100 mg tablet Take 1 tablet (100 mg total) by mouth daily 05/29/2021 montelukast (SINGULAIR) 10 mg tablet nightly 07/11/2020 OneTouch Delica Plus Lancet 33 gauge misc 06/16/2021 pen needle, diabetic (BD Ultra-Fine Florina Pen Needle) 32 gauge x 32 needleIndications :Type 2 diabetes mellitus with hyperglycemia, with long-term current use of insulin ([facility]) USE DIRECTED up to 7 times daily 700 each 11/26/2019 propranoloL (INDERAL) 20 mg tablet Take 1 tablet (20 mg total) by mouth 2 (two) times a day 12/24/2019 rimegepant (NURTEC ODT) tablet,disintegra ting Take 1 tablet (75 mg total) by mouth daily as needed 08/08/2021 topiramate (TOPAMAX) 200 mg tablet 1 tablet (200 mg total) 2 (two) times a day 08/09/2021 blood-glucose sensor (Dexcom G6 Sensor) device Change q 10 days 9 each 3 09/27/2021 2 blood-glucose transmitter (Dexcom G6 Transmitter) device Change q 3 months 1 each 3 09/27/2021 2 dapagliflozin (FARXIGA) 10 mg tablet Take 1 tablet (10 mg total) by mouth daily 30 tablet 5 06/22/2021 3 doxycycline (doxycycline) 100 mg capsuleIndication s:Chronic Suppression Take 1 tablet/capsule (100 mg total) by mouth daily 90 capsule 3 06/01/2021 2 fenofibrate (TRIGLIDE) 160 mg tablet Take 1 tablet (160 mg total) by mouth daily 4 insulin aspart (NovoLOG) 100 unit/mL vial for injection Use up to 160 units per day in insulin pump 150 mL 3 04/25/2021 3 insulin pump cart,cont inf,BT (Omnipod Dash Pods, Gen 4,) cartridge Change q 3 days 30 each 3 09/27/2021 3 insulin pump cartridge (Omnipod Dash 5 Pack Pod) cartridge Omnipod Dash 5 Pack Insulin Pod subcutaneous cartridge 2 ketorolac (ACULAR LS) 0.4 % drops Administer 1 drop into both eyes 2 (two) times a day 3 lisinopriL (PRINIVIL,ZESTRIL ) 10 mg tablet Take 10 mg by mouth daily 02/16/[address] (PROTONIX) 40 mg EC tablet Take 1 tablet (40 mg total) by mouth 2 (two) times a day 3 phentermine (ADIPEX-P) 37.5 mg tablet 4 08/08/2021 2 rizatriptan (MAXALT) 10 mg tabletIndications :Migraine Take 1 tablet (10 mg total) by mouth once as needed for migraine May repeat in 2 hours if unresolved. Do not exceed 30 mg in 24 hours. 3 ziprasidone (GEODON) 20 mg capsule Take 1 capsule (20 mg total) by mouth 2 (two) times a day with meals 07/25/2020 3 documented as of this encounter Ordered Prescriptions Prescription Sig Dispense Quantity Refills Last Filled Start Date End Date glucagon (Baqsimi) 3 mg/actuation spray,non-aerosol One spray into one nostril once as directed by provider for low blood sugar. 1 each 09/12/2021 documented in this encounter Discharge Disposition Disposition Code Departure Means Destination Discharge to home or self care documented in this encounter Progress Notes * Akua Phillips RN - 09/12/2021 2:50 PM CDT 09/12/21 8747 Discharge Summary Chart reviewed For Medical Necessity Does patient have a planned readmission to hospital planned? No Discharge Disposition Home Equipment/Provider Needs (Patient refused any SNF recommendations) Discharge Additional Assistance Does the patient need discharge transport arranged? No (Per the patient will contact an [employer] or contact a friend, Phong Dudley at [phone] to take her to her car) Post Discharge Care Provider Post Discharge Care Plan DC Summary has been faxed to next level of care provider (see Follow Up Providers) Patient is medically stable to discharge home today. Patient will have transportation provided by the patient's friend or [employer]. Patient has PCP follow up with Dr. Low on September 19, 2021. No additional needs noted at this time. Akua Phillips RN, Sow Farm Technician [phone] * Debbie Smith NP - 09/12/2021 1:24 PM CDT Daily Progress Note Division of Hospital Medicine Name: Alannah Ruano Today: September 12, 2021 : 1980 Age: 41 y.o. female Admit: 09/09/2021 Bed: [id number] Subjective Chief complaint: BATES Interval History: Continues to complain of intractable BATES with nausea and dizziness. Pain consultedfor blood patch. Objective Medications: Scheduled: atorvastatin, 20 mg, oral, Nightly azelastine, 2 spray, each nostril, BID buPROPion, 100 mg, oral, BID carBAMazepine, 100 mg, oral, TID cetirizine, 10 mg, oral, Daily dapagliflozin, 10 mg, oral, Daily doxycycline, 100 mg, oral, Daily enoxaparin, 40 mg, subcutaneous, Daily-2100 insulin lispro, 8 Units, subcutaneous, TID with meals ketorolac, 1 drop, each eye, BID lamoTRIgine, 100 mg, oral, Daily lisinopriL, 10 mg, oral, Daily montelukast, 10 mg, oral, Nightly pantoprazole DR, 40 mg, oral, BID propranoloL, 20 mg, oral, BID topiramate, 200 mg, oral, BID ziprasidone, 20 mg, oral, BID with meals (bkfst, dinner) Infusions: INSULIN PUMP - insulin aspart (NovoLOG), 0-25 Units Lactated Ringer's, 75 mL/hr, Last Rate: 75 mL/hr (09/12/21 07) PRN: ??? acetaminophen ??? albuterol ??? dextrose OR dextrose ??? diazePAM ??? glucagon ??? hydrOXYzine ??? ketorolac ??? ondansetron ??? oxyCODONE Vitals: 24hr Min/Max: Temp Min: 36.4 ??C (97.52 ??F) Max: 36.8 ??C (98.2 ??F) Pulse Min: 57 Max: 78 BP Min: 116/56 Max: 144/85 Resp Min: 16 Max: 16 SpO2 Min: 97 % Max: 99 % Most Recent: Vitals: 09/12/21 1103 BP: 144/85 Pulse: 57 Resp: Temp: SpO2: 98% No intake or output data in the 24 hours ending 09/12/21 1310 Physical Exam Constitutional: NAD, well developed, morbidly obese Eyes: PERRL, EOMI, anicteric ENT: NCAT, oropharynx normal, moist mucus membranes Lungs: Clear to auscultation in all lung qiu, unlabored Cardiovascular: RRR, normal S1 and S2, no murmurs, no JVD GI: Soft, non-tender, non-distended, bowel sounds + Skin: No new rashes, lesions or bruises on visible skin Extremities: Normal without edema or cyanosis Lymph: No cervical, supraclavicular, axillary or inguinal adenopathy Neurologic: AOx4, CNII-XII intact, normal strength and sensation Psychiatric: Normal affect and mood I have reviewed the patient's vital signs. Lab/Diagnostic Review: Recent Results (from the past 36 hour(s)) POCT glucose Collection Time: 09/11/21 6:45 AM Result Value Ref Range Glucose, POC 64 (L) 70 - 199 mg/dL POCT glucose Collection Time: 09/11/21 7:04 AM Result Value Ref Range Glucose, POC 76 70 - 199 mg/dL POCT glucose Collection Time: 09/11/21 9:08 AM Result Value Ref Range Glucose, POC 63 (L) 70 - 199 mg/dL POCT glucose Collection Time: 09/11/21 12:23 PM Result Value Ref Range Glucose, POC 78 70 - 199 mg/dL POCT glucose Collection Time: 09/11/21 5:36 PM Result Value Ref Range Glucose, POC 73 70 - 199 mg/dL POCT glucose Collection Time: 09/11/21 8:42 PM Result Value Ref Range Glucose, POC 146 70 - 199 mg/dL Basic metabolic panel Collection Time: 09/12/21 5:14 AM Result Value Ref Range Sodium 140 135 - 145 mmol/L Potassium, pl 3.6 3.3 - 4.9 mmol/L Chloride 106 97 - 110 mmol/L CO2 28 22 - 32 mmol/L Anion gap 6 2 - 15 mmol/L BUN 15 8 - 25 mg/dL Creatinine 0.97 0.60 - 1.10 mg/dL Glucose 80 70 - 199 mg/dL Calcium 8.9 8.5 - 10.3 mg/dL CBC with auto differential Collection Time: 09/12/21 5:14 AM Result Value Ref Range WBC 8.0 3.8 - 9.9 K/cumm Hgb 12.3 11.9 - 15.5 g/dL Hct 36.5 35.6 - 45.5 % Plt 201 150 - 400 K/cumm MPV 9.4 9.1 - 12.3 fL RBC 4.13 3.90 - 5.20 M/cumm MCV 88.4 81.3 - 96.4 fL MCH 29.8 27.1 - 33.3 pg MCHC 33.7 32.3 - 35.7 g/dL RDW CV 12.8 11.1 - 14.9 % RDW SD 41.1 35.7 - 48.1 fL NRBC abs 0.00 0.00 - 0.01 K/cumm Differential, auto Collection Time: 09/12/21 5:14 AM Result Value Ref Range Neutrophil abs 4.1 1.7 - 6.5 K/cumm Imm gran abs 0.0 0.0 - 0.1 K/cumm Lymphocyte abs 3.2 0.8 - 3.3 K/cumm Monocyte abs 0.5 0.2 - 0.8 K/cumm Eosinophil abs 0.2 0.0 - 0.5 K/cumm Basophil abs 0.1 0.0 - 0.1 K/cumm Neutrophil pct 50.9 % Imm gran pct 0.2 % Lymphocyte pct 39.2 % Monocyte pct 6.7 % Eosinophil pct 2.1 % Basophil pct 0.9 % eGFR Collection Time: 09/12/21 5:14 AM Result Value Ref Range eGFR 76 (L) 90 - 130 mL/min/1.73 m2 POCT glucose Collection Time: 09/12/21 8:06 AM Result Value Ref Range Glucose, POC 65 (L) 70 - 199 mg/dL Glucose comment 1 Glu2: RN/ Notified POCT glucose Collection Time: 09/12/21 9:19 AM Result Value Ref Range Glucose, POC 117 70 - 199 mg/dL POCT glucose Collection Time: 09/12/21 12:02 PM Result Value Ref Range Glucose, POC 85 70 - 199 mg/dL I have reviewed the laboratory results. Imaging Results: ECG 12 lead Judy Morgan MD 09/11/2021 2:26 PM ECG 12 lead Date/Time: 09/09/2021 8:51 AM Performed by: Judy Morgan MD Authorized by: Romie Wilder MD PhD Quality: Tracing quality: Limited by artifact Rate: ECG rate: 92 ECG rate assessment: normal Rhythm: Rhythm: sinus rhythm Ectopy: Ectopy: none QRS: QRS axis: Normal Q waves: Q waves: III and aVF Previous ECG: Previous ECG: Unavailable Interpretation: Interpretation: non-specific Assessment/Plan * Lumbar puncture headache Assessment & Plan Developed severe generalized headache radiating all the [...] blood patch. - continue analgesics and antiemetics Type 2 diabetes mellitus with hyperglycemia, with long-term current use of insulin ([facility] ([facility]) Assessment & Plan Patient has well controlled T2DM on insulin pump. Follows with Kurt Saini. Her pump setting at home is: Basal 12a 1.0, 12p 1.2 ICR 1:8, SF 25, T 100-150 - will continue insulin pump. Endocrine managing. - continue [facility] Physical deconditioning Assessment & Plan Patient's friends concerned about ability to care for herself -PT ordered, but unable to participate d/t BATES Recurrent boils Assessment & Plan -Continue daily doxycycline. Trigeminal neuralgia Assessment & Plan -Continue home dose of lamotrigine. Migraine Assessment & Plan Patient has hx of migraines and is on prophylactic topamax, propranolol, lamictal. Also is on PRN maxalt. - will resume her prophylactic regimen and treatment of headache as above Hypertension associated with diabetes ([facility]) Assessment & Plan BP stable. -Continue home lisinopril. Cosigned by Italia Ruiz MD at 09/12/2021 2:00 PM CDT Associated attestation - Italia Ruiz MD - 09/12/2021 2:00 PM CDT I have seen and examined the patient on 09/12/21 in conjunction with the non- physician provider. * Carmelita Edmond, PT - 09/12/2021 10:47 AM CDT Physical Therapy Physical Therapy Initial Assessment NOTE: This is a summary note for the carmen assessments completed during the evaluation session. For full details, review chart review for all flowsheets documented on by this physical therapist on thisdate. Vital signs documented in vital signs flowsheet. Assessment Assessment Prognosis: Good Problem List: Pain, Decreased mobility Problem List Comments: PT Diagnosis: headache, nausea/vomiting, and syncope after lumbar punction 09/07 results in above listed activity deficits and impairments which prevent full participation in home and community mobility. Barriers to Discharge: Current Mobility Status, Decreased caregiver support Plan Plan Plan : Plan of care initiated, If this is the last note, consider this the discharge summary PT Recommendation and Plan Recommendation/Plan PT Recommendation/Plan: [facility] Facility (pending progress) Recommend SNF due to: (inability to tolerate ambulation or mobility) PT Recommendation/Plan Comments: PT POC was discussed with patient. PT Frequency: 3-5x/wk Treatment/Interventions: Balance Training, Functional activity, Functional transfer training, Gait training, Stair training, Therapeutic activity, Therapeutic exercise PT - Next Appointment: 09/13/21 PT Evaluation Complete: Yes General Information General Chart Reviewed: Yes Session Type: Evaluation PT Received On: 09/12/21 Subjective: Agreeable to Therapy Subjective Comment: My pain is in my head and radiates all the way down to my toes. Additional Pertinent History: PMH includes T2DM on insulin pump, c/b neuropathy and gastroparesis, obesity s/p gastric sleeve in 08/2020. Family/Caregiver Present: No Physical Therapy-Patient Goal: Patient reports no specific goals for PT; states I don't know. Prior Function Prior Function Level of Dunn: Independent with ambulation Lives With: Alone Receives Help From: Other (Comment) (reports no assistance available) Driving: Yes Fall within the last 6 months: Yes Fall within the last 6 months comment: Patient reports 3 falls; once due to dizziness and twice dueto loss of balance. Home Living Home Living Type of Home: House Home Layout: Two level, Laundry in basement, Stairs with rails # of Steps-Railed: 12 Home Access: Stairs to enter without rails Entrance Stairs-Rails: None Entrance Stairs-Number of Steps: 2 (2 stairs to enter from garage and 3 stairs at front) Home Mobility Equipment: None Additional Comments: Patient reports independence with all mobility. Precautions Precautions Precautions: Fall risk Pain Pain Assessment Pain Assessment: 0-10 Pain Score: 8 Pain Location: Head Pain Interventions: RN Notified (Olivia) Cognition Cognition Arousal/Alertness: Alert Orientation : Oriented X4 (person, place, time, situation) Following Commands: Follows all commands and directions without difficulty Compliance/Behavior: Easy to engage, Tearful 6 Clicks Basic Mobility - 6 Click How much difficulty does the patient have: Turning over in bed: None How much difficulty does the patient currently have: Sitting down and standing up from a chair witharms?: None How much difficulty does the patient have: Moving from lying on back to sitting on the side of the bed?: None How much difficulty does the patient have: Moving to and from a bed to a chair including wheelchair?: A little How much help does the patient currently need: Walk in hospital room?: A little How much help from another person does the patient currently need: Climbing 3-5 steps with a railing?: A little Total 6 Click Score (range 6-24): 21 Bed Mobility Bed Mobility Bed Mobility: Yes Bed Mobility 1 Bed Mobility From 1: Supine Bed Mobility Type 1: To and from Bed Mobility to 1: Edge of bed Level of Assistance 1: Modified Independent Bed Mobility Comments 1: with HOB elevated Transfers Transfers Transfer: No Transfer 1 Trials/Comments 1: Patient declines/unable to tolerate Balance Static Sitting Balance Static Sitting-Balance Support: Bilateral upper extremity supported, Feet supported Static Sitting-Sitting Surface: Bed Static Sitting-Level of Assistance: Independent Ambulation Ambulation Ambulation: No (Patient declines to attempt ambulation.) Stairs Stairs Stairs: No Curbs RLE Assessment RLE Assessment RLE Assessment: Within Functional Limits Strength RLE RLE Overall Strength: Within Functional Limits, Able to move through available range against gravity (pt demonstrates full AROM in supine; unable to tolerate MMT in sitting) LLE Assessment LLE Assessment LLE Assessment: Within Functional Limits Strength LLE LLE Overall Strength: Within Functional Limits, Able to move through available range against gravity (pt demonstrates full AROM in supine; unable to tolerate MMT in sitting) Equipment Used Other Comments Other Comments Other PT Comments: Once sitting edge of bed, patient c/o dizziness and worsening headache; BP stable. Patient becomes tearful and states I don't want to do this right now . Patient states she need to lie down and returns to supine; declines to attempt further mobility at this time. SILVER Baker notified. PT Goals Multi-Disciplinary Problems (from Physical Therapy) Active Problems Problem: Mobility Start Date: 09/12/21 Goal Start Date Expected End Date End Date LTG - Patient will ambulate household distance 09/12/21 11/07/21 -- Goal Details: Independently. Goal Start Date Expected End Date End Date STG - Patient will ambulate 09/12/21 09/26/21 -- Goal Details: 150 feet without device independently. Goal Start Date Expected End Date End Date STG - Patient will ascend and descend two stairs without hand rail 09/12/21 09/26/21 -- Goal Details: with standby assistance. Problem: Transfers Start Date: 09/12/21 Goal Start Date Expected End Date End Date STG - Patient will transfer sit to and from stand 09/12/21 09/26/21 -- Goal Details: With modified independence. For questions, please review the treatment team and contact the PT or GENERAL OFFICE ASSISTANT currently assigned to this patient. If a physical therapy clinician is not assigned to this patient, please call [phone]. * Akua Phillips RN - 09/12/2021 10:40 AM CDT CM Initial Assessment Interview Note Information Obtained From: Patient (09/12/211039) Admission Source: non health care facility Impression: 41 y/o female with c/o headache, n/v, and syncope Plan Includes:Collaboration with patient, clinical team to identify discharge needs to assure interventions completed for safe discharge. Return patient to optimal level of self care post discharge. Anticipate patient will discharge to home when medically stable. Primary Source of Transportation: patient own car Does the patient need discharge transport arranged?: No (09/12/211039) Health Insurance Coverage: [facility] [employer] Prescription Coverage: yes Pharmacy: [facility] in [place], [place] Primary Care Provider: Deedee Zaldivar PA Prior to Admission: Primary Caregiver: Self Support System: Friends/neighbors Support system contact info (name, phone, availablity): Friend, Kelly Watson at [phone] and Friend, Phong Dudley at [phone] Home Care Services: No Durable Medical Equipment: None Living Arrangements: Alone Type of Residence: Private residence Steps in home? : Yes, Outside of home, Yes, Inside home Number of steps inside:: 12 steps Number of steps outside:: 3 steps (09/12/211039) Potential discharge needs include: Unknown at this time.CM will continue to follow for referrals ordischarge planning needs. Addendum 12:05 p.m. PT recommended SNF Dialysis: NO Behavioral Health Services: Behavioral Health Services: No (09/12/211039) Patient expects to be Discharged to: Private residence, (09/12/211039) Additional Information: Address and phone numbers verified on the facesheet. Patient lives at home alone. Patient drove herself to the hospital and left her vehicle in the garage. Patient manages herown medications at home. Patient denies DME or Home Healthcare prior to admission. Patient's Identified Problem/Goal Problem: Ensure acute medical needs are met and that patient has a safe discharge plan. Goal: Secure a discharge plan that patient/family are agreeable with and ensure patient has continuum of care. Case management will follow for discharge planning and send referrals as needed. Goals include: To assure continuity of care, To maximize coping skills, To assure patient is in a safe environment and To assure access to community resources. Plan includes: 1. Collaboration with patient, MD, direct care nurse, Armored Machine Operator, Nurse Coordinator and other members of the health care team to assure needed interventions completed. 2. Return patient to optimal level of self-care post discharge. 3. Sow Farm Technician will follow for Discharge Planning - interventions as needed 4. Anticipated level of care at discharge 5. Planned Discharge Disposition Based on a comprehensive family assessment, assistance with instrumental activities of daily livingafter discharge will be provided by the patient Through the course of our work I determined that the patient possesses the skill and ability to provide and monitor the care of the patient when she returns home. Patient has the capacity to provide/monitor/arrange for the care of the patient. Finally, we determined that the patient has the knowledge of available resources and that combining them with their existing resources will suffice to sustain and care for the patient when she returns home. The treatment team is aware of this information.All are in agreement with the aftercare plan. Akua Phillips RN * Lydia Alvarado MD - 09/11/2021 7:10 AM CDT Daily Progress Note Division of Hospital Medicine Name: Alannah Ruano Today: September 11, 2021 : 1980 Age: 41 y.o. female Admit: 09/09/2021 Bed: [id number] Subjective Chief complaint: headache, nausea Interval History: - BG 64 this AM, basal pump rate reduced - headache is persistent, took oxycodone ~6am Objective Medications: Scheduled: atorvastatin, 20 mg, oral, Nightly azelastine, 2 spray, each nostril, BID buPROPion, 100 mg, oral, BID carBAMazepine, 100 mg, oral, TID cetirizine, 10 mg, oral, Daily dapagliflozin, 10 mg, oral, Daily doxycycline, 100 mg, oral, Daily enoxaparin, 40 mg, subcutaneous, Daily-2100 insulin lispro, 8 Units, subcutaneous, TID with meals ketorolac, 1 drop, each eye, BID lamoTRIgine, 100 mg, oral, Daily lisinopriL, 10 mg, oral, Daily montelukast, 10 mg, oral, Nightly pantoprazole DR, 40 mg, oral, BID propranoloL, 20 mg, oral, BID topiramate, 200 mg, oral, BID ziprasidone, 20 mg, oral, BID with meals (bkfst, dinner) Infusions: INSULIN PUMP - insulin aspart (NovoLOG), 0-25 Units Lactated Ringer's, 75 mL/hr, Last Rate: 75 mL/hr (09/11/21 0404) PRN: ??? acetaminophen ??? albuterol ??? dextrose OR dextrose ??? diazePAM ??? glucagon ??? hydrOXYzine ??? ondansetron ??? oxyCODONE Vitals: 24hr Min/Max: Temp Min: 36.7 ??C (98.06 ??F) Max: 36.8 ??C (98.24 ??F) Pulse Min: 64 Max: 82 BP Min: 96/57 Max: 141/83 Resp Min: 16 Max: 18 SpO2 Min: 96 % Max: 98 % Most Recent: Vitals: 09/10/21 2100 BP: 96/57 Pulse: 68 Resp: 18 Temp: 36.7 ??C (98.06 ??F) SpO2: 96% Intake/Output Summary (Last 24 hours) at 09/11/2021 0710 Last data filed at 09/10/2021 2155 Gross per 24 hour Intake 220 ml Output -- Net 220 ml Physical Exam General: NAD Eyes: sclera anicteric Neck: no JVD CV: rrr, no murmurs Lungs: ctab Abd: soft, ntnd Extremities: no LE edema Neuro: aox4 Psych: normal mood and affect Lab/Diagnostic Review: Recent Results (from the past 36 hour(s)) Basic metabolic panel Collection Time: 09/10/21 6:09 AM Result Value Ref Range Sodium 139 135 - 145 mmol/L Potassium, pl 3.6 3.3 - 4.9 mmol/L Chloride 102 97 - 110 mmol/L CO2 26 22 - 32 mmol/L Anion gap 11 2 - 15 mmol/L BUN 12 8 - 25 mg/dL Creatinine 0.66 0.60 - 1.10 mg/dL Glucose 81 70 - 199 mg/dL Calcium 9.8 8.5 - 10.3 mg/dL CBC with auto differential Collection Time: 09/10/21 6:09 AM Result Value Ref Range WBC 9.3 3.8 - 9.9 K/cumm Hgb 15.2 11.9 - 15.5 g/dL Hct 44.2 35.6 - 45.5 % Plt 238 150 - 400 K/cumm MPV 9.0 (L) 9.1 - 12.3 fL RBC 5.04 3.90 - 5.20 M/cumm MCV 87.7 81.3 - 96.4 fL MCH 30.2 27.1 - 33.3 pg MCHC 34.4 32.3 - 35.7 g/dL RDW CV 12.7 11.1 - 14.9 % RDW SD 40.7 35.7 - 48.1 fL NRBC abs 0.00 0.00 - 0.01 K/cumm Differential, auto Collection Time: 09/10/21 6:09 AM Result Value Ref Range Neutrophil abs 5.7 1.7 - 6.5 K/cumm Imm gran abs 0.0 0.0 - 0.1 K/cumm Lymphocyte abs 2.6 0.8 - 3.3 K/cumm Monocyte abs 0.7 0.2 - 0.8 K/cumm Eosinophil abs 0.2 0.0 - 0.5 K/cumm Basophil abs 0.1 0.0 - 0.1 K/cumm Neutrophil pct 61.3 % Imm gran pct 0.3 % Lymphocyte pct 27.9 % Monocyte pct 7.7 % Eosinophil pct 1.8 % Basophil pct 1.0 % eGFR Collection Time: 09/10/21 6:09 AM Result Value Ref Range eGFR >90 90 - 130 mL/min/1.73 m2 hCG, urine, qualitative Collection Time: 09/10/21 6:38 AM Result Value Ref Range HCG, ur Negative Negative POCT glucose Collection Time: 09/10/21 9:01 AM Result Value Ref Range Glucose, POC 85 70 - 199 mg/dL POCT glucose Collection Time: 09/10/21 1:22 PM Result Value Ref Range Glucose, POC 84 70 - 199 mg/dL POCT glucose Collection Time: 09/10/21 5:52 PM Result Value Ref Range Glucose, POC 75 70 - 199 mg/dL POCT glucose Collection Time: 09/10/21 9:02 PM Result Value Ref Range Glucose, POC 71 70 - 199 mg/dL POCT glucose Collection Time: 09/11/21 6:45 AM Result Value Ref Range Glucose, POC 64 (L) 70 - 199 mg/dL I have reviewed the laboratory results. Imaging Results: CT Head WO Contrast Narrative: EXAMINATION: CT head without contrast HISTORY: Mental status changes. Evaluate for subarachnoid hemorrhage TECHNIQUE: Noncontrast CT of the brain was performed with images acquired from skull base to vertex. COMPARISON: MRI 07/03/2021. FINDINGS: Topogram demonstrates no lytic lesions or fractures. There is no acute intracranial hemorrhage. Ventricles are of normal size and morphology. No mass effect or midline shift is present. The alva-white matter differentiation is normal. The visualized portions of the orbits are normal. The visualized portions of the mastoids are normal. The visualized portions of the paranasal sinuses are normal. No fractures are identified. Impression: No acute intracranial abnormality. No evidence for subarachnoid hemorrhage. Electronically signed by: Enrique Boyle M.D. Assessment/Plan Physical deconditioning Assessment & Plan Patient's friends concerned about ability to care for herself PT ordered Recurrent boils Assessment & Plan Continue daily doxycycline. Trigeminal neuralgia Assessment & Plan Continue home dose of lamotrigine. Migraine Assessment & Plan Patient has hx of migraine and is on prophylactic topamax, propranolol, lamictal. Also is on PRN maxalt (trying to wean of), nurtec (should be her first line). Patient concerned that her current symptoms are not consistent with her usual migraine headache. - will resume her prophylactic regimen and treatment of headache as above Macular edema, diabetic ([facility]/H[facility]) ([facility]) Assessment & Plan Patient has bilateral macular edema and thought to be 2/2 her underlying diabetes. She follows withDr Seth - continue Ketorolac ocular drop BID as reported by patient. Mixed hyperlipidemia Assessment & Plan Continue home lipitor. Hypertension associated with diabetes ([facility]) Assessment & Plan Continue home lisinopril. BMI 38.0-38.9,adult Assessment & Plan Patient is s/p gastric sleeve and has been intolerant of GLP 1. Currently on fraxiga, continue Type 2 diabetes mellitus with hyperglycemia, with long-term current use of insulin ([facility]) ([facility]) Assessment & Plan Patient has well controlled T2DM on insulin pump. Follows with Kurt Saini. Her pump setting at home is: Basal 12a 1.0, 12p 1.2 IC 8 SF 25 T 100 - will continue insulin pump. Endo consulted - decreased basal rate to 0.8 given episode of hypoglycemia in low 60s this AM * Lumbar puncture headache Assessment & Plan Developed severe generalized headache radiating all the [...] PRN zofran. Will treat headache with PRN tylenol/oxycodone - She was originally planning to follow-up with anesthesia at [facility] were her procedure was performed in order to receive an epidural blood patch. Encouraged patient to follow up out patient as planned, could consider neuro radiology consult if headache does not improve Cosigned by Lin Lerma MD at 09/11/2021 9:40 AM CDT Associated attestation - Lin Miles MD - 09/11/2021 9:40 AM CDT ATTENDING DOCUMENTATION I have seen and examined the patient on 09/11/2021. I agree with the findings and plan of care as documented in the resident's/fellow's note. Lin Lerma MD * Alley rGeco NP - 09/10/2021 12:15 PM CDT Daily Progress Note Division of Hospital Medicine Name: Alannah Ruano Today: September 10, 2021 : 1980 Age: 41 y.o. female Admit: 09/09/2021 Bed: [id number] Subjective Chief complaint: headache, nausea Interval History: Patient reports continued headache and nausea. States she is able to tolerate liquids. Says pain would be improved with oxycodone and thinks she could tolerate discharge if she had that at home. Understands this would be a short term prescription until she is able to follow up with outpatient providers. Later attending physician spoke with patients friends who came to visit. Concern for SI. Patient denies says she has been taking her medications as prescribed. Friends also have concerns about patients mobility and ability to care for herself at home. PT ordered for evaluation. Objective Medications: Scheduled: atorvastatin, 20 mg, oral, Nightly azelastine, 2 spray, each nostril, BID buPROPion, 100 mg, oral, BID carBAMazepine, 100 mg, oral, TID cetirizine, 10 mg, oral, Daily dapagliflozin, 10 mg, oral, Daily doxycycline, 100 mg, oral, Daily enoxaparin, 40 mg, subcutaneous, Daily-2100 insulin lispro, 8 Units, subcutaneous, TID with meals ketorolac, 1 drop, each eye, BID lamoTRIgine, 100 mg, oral, Daily lisinopriL, 10 mg, oral, Daily montelukast, 10 mg, oral, Nightly pantoprazole DR, 40 mg, oral, BID propranoloL, 20 mg, oral, BID topiramate, 200 mg, oral, BID ziprasidone, 20 mg, oral, BID with meals (bkfst, dinner) Infusions: INSULIN PUMP - insulin aspart (NovoLOG), 0-25 Units Lactated Ringer's, 75 mL/hr, Last Rate: 75 mL/hr (09/09/21 6834) PRN: ??? acetaminophen ??? albuterol ??? dextrose OR dextrose ??? diazePAM ??? glucagon ??? hydrOXYzine ??? ondansetron ??? oxyCODONE Vitals: 24hr Min/Max: Temp Min: 36.6 ??C (97.8 ??F) Max: 36.7 ??C (98.06 ??F) Pulse Min: 73 Max: 88 BP Min: 117/68 Max: 170/92 Resp Min: 16 Max: 20 SpO2 Min: 94 % Max: 100 % Most Recent: Vitals: 09/10/21 0815 BP: 141/83 Pulse: 82 Resp: 17 Temp: 36.7 ??C (98.06 ??F) SpO2: 98% No intake or output data in the 24 hours ending 09/10/21 1159 Physical Exam Vitals and nursing note reviewed. Constitutional: Appearance: Normal appearance. HENT: Head: Normocephalic and atraumatic. Eyes: Extraocular Movements: Extraocular movements intact. Conjunctiva/sclera: Conjunctivae normal. Cardiovascular: Rate and Rhythm: Normal rate and regular rhythm. Pulses: Normal pulses. Heart sounds: Normal heart sounds. Pulmonary: Effort: Pulmonary effort is normal. Breath sounds: Normal breath sounds. Abdominal: General: Bowel sounds are normal. Palpations: Abdomen is soft. Tenderness: There is no abdominal tenderness. There is no guarding. Musculoskeletal: General: No swelling or tenderness. Normal range of motion. Cervical back: Normal range of motion and neck supple. Skin: General: Skin is warm and dry. Neurological: General: No focal deficit present. Mental Status: She is alert and oriented to person, place, and time. Psychiatric: Mood and Affect: Mood normal. Behavior: Behavior normal. Thought Content: Thought content normal. Judgment: Judgment normal. Lab/Diagnostic Review: Recent Results (from the past 36 hour(s)) POCT glucose Collection Time: 09/09/21 6:34 AM Result Value Ref Range Glucose, POC 109 70 - 199 mg/dL CBC with auto differential Collection Time: 09/09/21 9:02 AM Result Value Ref Range WBC 12.8 (H) 3.8 - 9.9 K/cumm Hgb 15.8 (H) 11.9 - 15.5 g/dL Hct 46.4 (H) 35.6 - 45.5 % Plt 244 150 - 400 K/cumm MPV 9.8 9.1 - 12.3 fL RBC 5.33 (H) 3.90 - 5.20 M/cumm MCV 87.1 81.3 - 96.4 fL MCH 29.6 27.1 - 33.3 pg MCHC 34.1 32.3 - 35.7 g/dL RDW CV 12.7 11.1 - 14.9 % RDW SD 39.7 35.7 - 48.1 fL NRBC abs 0.00 0.00 - 0.01 K/cumm Basic metabolic panel Collection Time: 09/09/21 9:02 AM Result Value Ref Range Sodium 136 135 - 145 mmol/L Potassium, pl See Comment 3.3 - 4.9 mmol/L Chloride 100 97 - 110 mmol/L CO2 28 22 - 32 mmol/L Anion gap 8 2 - 15 mmol/L BUN 10 8 - 25 mg/dL Creatinine 0.62 0.60 - 1.10 mg/dL Glucose 99 70 - 199 mg/dL Calcium 9.7 8.5 - 10.3 mg/dL Troponin I high-sensitivity Collection Time: 09/09/21 9:02 AM Result Value Ref Range Trop I hs <4 <=17 ng/L Differential, auto Collection Time: 09/09/21 9:02 AM Result Value Ref Range Neutrophil abs 10.1 (H) 1.7 - 6.5 K/cumm Imm gran abs 0.1 0.0 - 0.1 K/cumm Lymphocyte abs 1.8 0.8 - 3.3 K/cumm Monocyte abs 0.8 0.2 - 0.8 K/cumm Eosinophil abs 0.1 0.0 - 0.5 K/cumm Basophil abs 0.1 0.0 - 0.1 K/cumm Neutrophil pct 78.7 % Imm gran pct 0.5 % Lymphocyte pct 13.8 % Monocyte pct 6.0 % Eosinophil pct 0.4 % Basophil pct 0.6 % eGFR Collection Time: 09/09/21 9:02 AM Result Value Ref Range eGFR >90 90 - 130 mL/min/1.73 m2 Hemoglobin A1c Collection Time: 09/09/21 9:02 AM Result Value Ref Range Hgb A1C 5.6 4.0 - 5.6 % Estimated Average Glucose 114 mg/dL Lipid panel Collection Time: 09/09/21 9:02 AM Result Value Ref Range Cholesterol 284 (H) 30 - 199 mg/dL Triglycerides See Comment <=149 mg/dL HDL 43 >=40 mg/dL LDL, calculated See Comment <=129 Non-HDL Cholesterol 241 mg/dL Chol/HDL ratio 7 COVID-19 Coronavirus RNA Nasopharyngeal Collection Time: 09/09/21 4:03 PM Specimen: Nasopharyngeal Result Value Ref Range COVID-19 RNA Negative Negative Basic metabolic panel Collection Time: 09/10/21 6:09 AM Result Value Ref Range Sodium 139 135 - 145 mmol/L Potassium, pl 3.6 3.3 - 4.9 mmol/L Chloride 102 97 - 110 mmol/L CO2 26 22 - 32 mmol/L Anion gap 11 2 - 15 mmol/L BUN 12 8 - 25 mg/dL Creatinine 0.66 0.60 - 1.10 mg/dL Glucose 81 70 - 199 mg/dL Calcium 9.8 8.5 - 10.3 mg/dL CBC with auto differential Collection Time: 09/10/21 6:09 AM Result Value Ref Range WBC 9.3 3.8 - 9.9 K/cumm Hgb 15.2 11.9 - 15.5 g/dL Hct 44.2 35.6 - 45.5 % Plt 238 150 - 400 K/cumm MPV 9.0 (L) 9.1 - 12.3 fL RBC 5.04 3.90 - 5.20 M/cumm MCV 87.7 81.3 - 96.4 fL MCH 30.2 27.1 - 33.3 pg MCHC 34.4 32.3 - 35.7 g/dL RDW CV 12.7 11.1 - 14.9 % RDW SD 40.7 35.7 - 48.1 fL NRBC abs 0.00 0.00 - 0.01 K/cumm Differential, auto Collection Time: 09/10/21 6:09 AM Result Value Ref Range Neutrophil abs 5.7 1.7 - 6.5 K/cumm Imm gran abs 0.0 0.0 - 0.1 K/cumm Lymphocyte abs 2.6 0.8 - 3.3 K/cumm Monocyte abs 0.7 0.2 - 0.8 K/cumm Eosinophil abs 0.2 0.0 - 0.5 K/cumm Basophil abs 0.1 0.0 - 0.1 K/cumm Neutrophil pct 61.3 % Imm gran pct 0.3 % Lymphocyte pct 27.9 % Monocyte pct 7.7 % Eosinophil pct 1.8 % Basophil pct 1.0 % eGFR Collection Time: 09/10/21 6:09 AM Result Value Ref Range eGFR >90 90 - 130 mL/min/1.73 m2 hCG, urine, qualitative Collection Time: 09/10/21 6:38 AM Result Value Ref Range HCG, ur Negative Negative POCT glucose Collection Time: 09/10/21 9:01 AM Result Value Ref Range Glucose, POC 85 70 - 199 mg/dL I have reviewed the laboratory results. Imaging Results: CT Head WO Contrast Narrative: EXAMINATION: CT head without contrast HISTORY: Mental status changes. Evaluate for subarachnoid hemorrhage TECHNIQUE: Noncontrast CT of the brain was performed with images acquired from skull base to vertex. COMPARISON: MRI 07/03/2021. FINDINGS: Topogram demonstrates no lytic lesions or fractures. There is no acute intracranial hemorrhage. Ventricles are of normal size and morphology. No mass effect or midline shift is present. The alva-white matter differentiation is normal. The visualized portions of the orbits are normal. The visualized portions of the mastoids are normal. The visualized portions of the paranasal sinuses are normal. No fractures are identified. Impression: No acute intracranial abnormality. No evidence for subarachnoid hemorrhage. Electronically signed by: Enrique Boyle M.D. I have independently reviewed and interpreted labs. Assessment/Plan * Lumbar puncture headache Assessment & Plan Developed severe generalized headache radiating all the [...] originally planning to follow-up with anesthesia at [facility] were her procedure was performed in order to receive an epidural blood patch. Encouraged patient to follow up out patient as planned, could consider neuro radiology consult if headache does not improve Recurrent boils Assessment & Plan Continue daily doxycycline. Trigeminal neuralgia Assessment & Plan Continue home dose of lamotrigine. Migraine Assessment & Plan Patient has hx of migraine and is on prophylactic topamax, propranolol, lamictal. Also is on PRN maxalt (trying to wean of), nurtec (should be her first line). Patient concerned that her current symptoms are not consistent with her usual migraine headache. - will resume her prophylactic regimen and treatment of headache as above Macular edema, diabetic ([facility]CC) ([facility]) Assessment & Plan Patient has bilateral macular edema and thought to be 2/2 her underlying diabetes. She follows withDr Seth - continue Ketorolac ocular drop BID as reported by patient. Hyperlipidemia associated with type 2 diabetes mellitus ([facility]) Assessment & Plan Continue home lipitor. Hypertension associated with diabetes ([facility]) Assessment & Plan Continue home lisinopril. BMI 38.0-38.9,adult Assessment & Plan Patient is s/p gastric sleeve and has been intolerant of GLP 1. Currently on fraxiga, continue Type 2 diabetes mellitus with hyperglycemia, with long-term current use of insulin ([facility] ([facility]) Assessment & Plan Patient has well controlled T2DM on insulin pump. Follows with Kurt Saini. Her pump setting is Basal 12a 1.0, 12p 1.2 IC 8 SF 25 T 100 - will continue insulin pump. Endo consulted Cosigned by Charleen Guzman MD at 09/10/2021 12:25 PM CDT Associated attestation - Charleen Guzman MD - 09/10/2021 12:25 PM CDT ATTENDING DOCUMENTATION I have seen and examined the patient on 09/10/2021 in conjunction with the non- physician provider. Ptat chronic risk of self harm with h/o MDD/anxiety and h/o suicidal thoughts and attempts. She has no active SI or self-harm thoughts. She is actively engaged with therapy and psychiatry. No c/f acutely elevated risk of self harm. Charleen Guzman MD documented in this encounter H&P Notes * Travon Shah MD - 09/09/2021 7:36 PM CDT History and Physical Division of Hospital Medicine Name: Alannah Ruano Today: September 10, 2021 : 1980 Age: 41 y.o. female Subjective The patient is a 41 y.o. female with chief complaint of headache, n/v, syncope HPI: Ms Ruano, 41 yo female with hx of obesity, T2DM, diabetic macular edema, migraine, trigeminal neuralgia, HTN, HLD, who presented to the ED for 2 days of headache, n/v and an episode of syncope. Hx is obtained from the patient and as per chart review of multiple EMR system. Patient follows with Dr Hernandez at [facility] for her migraine, trigeminal neuralgia, optic neuropathy and hemibody numbness. As per his recommendation, she underwent brain MRI and LP to rule out Multiple sclerosis. Her MRI brain showed no IC abnormality. She underwent LP on 09/07/21 and since then ishaving intractable generalized throbbing positional headache (worse with sitting or standing up) that radiates to her back and almost all the way down to her toes. She denies any resemblance of her current headache to her usual migraine headaches. She also endorses associated dizziness, intractablenausea and bilious non bloody vomiting. She also reported that due to the above, she was not able to eat anything substantial apart from some water. She has not been also able to take any of her medications. ROS is also positive for mild sore throat etc. She denies fever, chills, runny nose, chest pain, SOB, bowel changes, abdominal pain etc. She was originally planning to follow-up with anesthesia at [place] were her procedure was performed in order to receive an epidural blood patch. However, she was in town today for an event and experienced dizziness and lightheadedness while in the bathroom sitting down and fell from a sitting position hitting her head on the floor. She believes she lost consciousness for a short period of time because her friends told her they were trying to get into the bathroom and she was not responding. She complains of right-sided head pain after the fall and believes that her nausea is worsened. She denies any other injuries, including neck pain. She presented with the above mentioned symptoms to [facility] ED. Vital signs are reviewed and are significant elevation of systolic (ranging from 117-170) and diastolic blood pressure (ranging from 67-114). Labs significant for mild neutrophilic leukocytosis (2.8), increased hemoglobin (15.8). CT head without evidence of acute intracranial abnormality or subarachnoid hemorrhage. Patient has received Tylenol 1 g x 2, Compazine 5 mg. Benadryl 25 mg, droperidol 0.625 mg, ketorolac 30 mg, LR bolus 1 L in the ED and is admitted for further medical management. Past Medical History: Diagnosis Date ??? Anxiety ??? Asthma Asthma ??? Back pain ??? Cough ??? Depression ??? Diarrhea ??? Fatigue ??? Headache ??? HX OTHER MEDICAL Migraines ??? Hypercholesterolemia High cholesterol ??? Hypertension ??? Migraines ??? Muscle pain ??? Numbness and tingling ??? Pain with urination ??? Seizure (CMS/HCC) (HCC) ??? Type 2 diabetes mellitus (HCC) Past Surgical History: Procedure Laterality Date ??? ADENOIDECTOMY adenoidectomy ??? ORAL SURGERY Oral Surgery ??? TONSILLECTOMY tonsillectomy Medications Prior to Admission Medication Sig Dispense Refill Last Dose ??? albuterol 2.5 mg /3 mL (0.083 %) nebulizer solution albuterol sulfate 2.5 mg/3 mL (0.083 %) solution for nebulization PRN Past Week at Unknown time ??? albuterol ER (VOSPIRE ER) 8 mg 12 hr tablet PATIENT TAKES 8.5 GM DAILY PRN Past Week at Unknowntime ??? atorvastatin (LIPITOR) 20 mg tablet atorvastatin 20 mg tablet TAKE 1 TABLET BY MOUTH EVERY DAY IN THE EVENING 09/08/2021 at Unknown time ??? azelastine (ASTELIN) 137 mcg (0.1 %) nasal spray azelastine 137 mcg (0.1 %) nasal spray aerosol [place] 2 sprays every day by nasal route for 31 days. 09/08/2021 at Unknown time ??? blood glucose diagnostic strip Use to check bg 7 times daily 500 each 1 09/08/2021 at Unknown time ??? blood-glucose meter misc Check bg daily 1 each 0 09/08/2021 at Unknown time ??? buPROPion (WELLBUTRIN) 100 mg tablet Take 100 mg by mouth 2 (two) times a day 09/08/2021 at Unknown time ??? carBAMazepine (TEGretol) 200 mg tablet Take 100 mg by mouth 3 (three) times a day 09/08/2021 at Unknown time ??? cetirizine (ZyrTEC) 10 mg tablet Take 10 mg by mouth daily 09/08/2021 at Unknown time ??? dapagliflozin (FARXIGA) 10 mg tablet Take 1 tablet (10 mg total) by mouth daily 30 tablet 5 09/08/2021 at Unknown time ??? diazePAM (VALIUM) 5 mg tablet Take 5 mg by mouth every 8 (eight) hours as needed 09/08/2021 at Unknown time ??? diphenhydrAMINE (BENADRYL) 25 mg capsule Take 25 mg by mouth every 6 (six) hours as needed PastWeek at Unknown time ??? doxycycline (doxycycline) 100 mg capsule Take 1 tablet/capsule (100 mg total) by mouth daily 90capsule 3 09/08/2021 at Unknown time ??? hydrOXYzine (ATARAX) 25 mg tablet Take 25 mg by mouth 1-2 nightly 09/08/2021 at Unknown time ??? insulin pump cartridge (Omnipod Dash 5 Pack Pod) cartridge Omnipod Dash 5 Pack Insulin Pod subcutaneous cartridge 09/09/2021 at Unknown time ??? ketorolac (ACULAR LS) 0.4 % drops Administer 1 drop into both eyes 2 (two) times a day 09/08/2021t Unknown time ??? lamoTRIgine (LaMICtal) 100 mg tablet Take 100 mg by mouth daily 09/08/2021 at Unknown time ??? lisinopriL (PRINIVIL,ZESTRIL) 10 mg tablet Take 10 mg by mouth daily 09/08/2021 at Unknown time ??? montelukast (SINGULAIR) 10 mg tablet 09/08/2021 at Unknown time ??? OneTouch Delica Plus Lancet 33 gauge misc 09/08/2021 at Unknown time ??? pantoprazole DR (PROTONIX) 40 mg EC tablet Take 40 mg by mouth 2 (two) times a day 09/08/2021 at Unknown time ??? pen needle, diabetic (BD Ultra-Fine Florina Pen Needle) 32 gauge x 5/32 needle USE DIRECTED upto 7 times daily 700 each 0 09/08/2021 at Unknown time ??? phentermine (ADIPEX-P) 37.5 mg tablet 4 Past Month at Unknown time ??? propranoloL (INDERAL) 20 mg tablet Take 20 mg by mouth 2 (two) times a day 09/08/2021 at Unknown time ??? rimegepant (NURTEC ODT) tablet,disintegrating Take 75 mg by mouth daily as needed 09/08/2021 at Unknown time ??? rizatriptan (MAXALT) 10 mg tablet Take 10 mg by mouth once as needed for migraine May repeat in2 hours if unresolved. Do not exceed 30 mg in 24 hours. 09/08/2021 at Unknown time ??? topiramate (TOPAMAX) 200 mg tablet 200 mg 2 (two) times a day 09/08/2021 at Unknown time ??? ziprasidone (GEODON) 20 mg capsule Take 20 mg by mouth 2 (two) times a day with meals 09/08/2021 at Unknown time ??? fenofibrate (TRIGLIDE) 160 mg tablet Take 160 mg by mouth daily Unknown at Unknown time ??? fexofenadine (OCHOA) 180 mg tablet TAKE 1 TABLET DAILY NEEDED. Unknown at Unknown time ??? insulin aspart (NovoLOG) 100 unit/mL (3 mL) pen for injection Novolog Flexpen U-100 Insulin aspart 100 unit/mL (3 mL) subcutaneous INJECT UP TO 44 UNITS 3 TIMES A DAY BEFORE MEALS Unknown at Unknown time ??? insulin aspart (NovoLOG) 100 unit/mL vial for injection Use up to 160 units per day in insulin pump 150 mL 3 Unknown at Unknown time ??? insulin aspart (NovoLOG) 100 unit/mL vial for injection Novolog U-100 Insulin aspart 100 unit/mL subcutaneous solution Unknown at Unknown time ??? insulin aspart U-100 (NovoLOG Flexpen U-100 Insulin) 100 unit/mL (3 mL) insulin pen Inject up to 44 units TIDAC 15 pen 0 Unknown at Unknown time ??? insulin glargine (BASAGLAR) 100 unit/mL (3 mL) pen for injection Basaglar KwikPen U-100 [id number] unit/mL (3 mL) subcutaneous INJECT UP TO 60 UNITS UNDER THE SKIN AT BEDTIME Unknown at Unknown time ??? Levemir FlexTouch U-100 Insuln 100 unit/mL (3 mL) insulin pen INJECT 50 UNITS UNDER THE SKIN NIGHTLY 45 mL 1 Unknown at Unknown time Allergies Allergen Reactions ??? Mushroom Anaphylaxis ??? Nut Flavor Anaphylaxis MAINLY PECANS CAN TOLERATE PEANUTS Social History Tobacco Use ??? Smoking status: Former Smoker ??? Smokeless tobacco: Never Used ??? Tobacco comment: smoked for 3 years Substance and Sexual Activity ??? Drug use: Never Comment: Rare alcohol use ??? Sexual activity: Not on file Alcohol Use: Not on file Family History Problem Relation [...] Macular degeneration Maternal Grandmother Review of Systems All other systems were reviewed and are negative except for what is mentioned in HPI. Objective Vitals: 24hr Min/Max: Temp Min: 36.6 ??C (97.8 ??F) Max: 36.6 ??C (97.9 ??F) Pulse Min: 73 Max: 100 BP Min: 117/68 Max: 170/92 Resp Min: 16 Max: 18 SpO2 Min: 92 % Max: 100 % Most Recent Vitals: Vitals: 09/09/21 2145 BP: (!) 167/106 Pulse: 82 Resp: 18 Temp: 36.6 ??C (97.8 ??F) SpO2: 100% No intake or output data in the 24 hours ending 09/10/21 0039 Physical Exam Constitutional: General: She is not in acute distress. Appearance: She is well-developed. HENT: Head: Normocephalic. Has slight redness and swelling above the right temporal region. Mouth/Throat: Mouth: Mucous membranes are moist. Eyes: Extraocular Movements: Extraocular movements intact. Conjunctiva/sclera: Conjunctivae normal. Cardiovascular: Rate and Rhythm: Normal rate and regular rhythm. Pulmonary: Effort: Pulmonary effort is normal. No respiratory distress. Abdominal: General: Abdomen is flat. There is no distension. Musculoskeletal: Cervical back: Normal range of motion. Right lower leg: No edema. Left lower leg: No edema. Skin: General: Skin is warm and dry. Neurological: Mental Status: She is alert. Comments: Grossly nonfocal. Alert and oriented. PERRL. EOMI. No nystagmus. Sensation intact in upper and lower face. The face appears symmetric with intact eyebrow raise, palpebral mm strength and symmetric elevation of the angles of the mouth. Aural acuity grossly normal. Palate elevation symmetric. No tongue deviation. Normal shrug strength. [place] strength, push, pull, hip flexion, plantar flexion and dorsiflexion symmetric but generally decreased slightly. Sensation to light touch intact in all extremities. No hemisensory neglect. Ircins-zb-didw testing reveals some subtle discoordination on the left without dysmetria. I did not check her gait. Lab/Diagnostic Review: Labs significant for mild neutrophilic leukocytosis (2.8), increased hemoglobin (15.8). CT head without evidence of acute intracranial abnormality or subarachnoid hemorrhage. Recent Results (from the past 24 hour(s)) POCT glucose Collection Time: 09/09/21 6:34 AM Result Value Ref Range Glucose, POC 109 70 - 199 mg/dL CBC with auto differential Collection Time: 09/09/21 9:02 AM Result Value Ref Range WBC 12.8 (H) 3.8 - 9.9 K/cumm Hgb 15.8 (H) 11.9 - 15.5 g/dL Hct 46.4 (H) 35.6 - 45.5 % Plt 244 150 - 400 K/cumm MPV 9.8 9.1 - 12.3 fL RBC 5.33 (H) 3.90 - 5.20 M/cumm MCV 87.1 81.3 - 96.4 fL MCH 29.6 27.1 - 33.3 pg MCHC 34.1 32.3 - 35.7 g/dL RDW CV 12.7 11.1 - 14.9 % RDW SD 39.7 35.7 - 48.1 fL NRBC abs 0.00 0.00 - 0.01 K/cumm Basic metabolic panel Collection Time: 09/09/21 9:02 AM Result Value Ref Range Sodium 136 135 - 145 mmol/L Potassium, pl See Comment 3.3 - 4.9 mmol/L Chloride 100 97 - 110 mmol/L CO2 28 22 - 32 mmol/L Anion gap 8 2 - 15 mmol/L BUN 10 8 - 25 mg/dL Creatinine 0.62 0.60 - 1.10 mg/dL Glucose 99 70 - 199 mg/dL Calcium 9.7 8.5 - 10.3 mg/dL Troponin I high-sensitivity Collection Time: 09/09/21 9:02 AM Result Value Ref Range Trop I hs <4 <=17 ng/L Differential, auto Collection Time: 09/09/21 9:02 AM Result Value Ref Range Neutrophil abs 10.1 (H) 1.7 - 6.5 K/cumm Imm gran abs 0.1 0.0 - 0.1 K/cumm Lymphocyte abs 1.8 0.8 - 3.3 K/cumm Monocyte abs 0.8 0.2 - 0.8 K/cumm Eosinophil abs 0.1 0.0 - 0.5 K/cumm Basophil abs 0.1 0.0 - 0.1 K/cumm Neutrophil pct 78.7 % Imm gran pct 0.5 % Lymphocyte pct 13.8 % Monocyte pct 6.0 % Eosinophil pct 0.4 % Basophil pct 0.6 % eGFR Collection Time: 09/09/21 9:02 AM Result Value Ref Range eGFR >90 90 - 130 mL/min/1.73 m2 Lipid panel Collection Time: 09/09/21 9:02 AM Result Value Ref Range Cholesterol 284 (H) 30 - 199 mg/dL Triglycerides See Comment <=149 mg/dL HDL 43 >=40 mg/dL LDL, calculated See Comment <=129 Non-HDL Cholesterol 241 mg/dL Chol/HDL ratio 7 COVID-19 Coronavirus RNA Nasopharyngeal Collection Time: 09/09/21 4:03 PM Specimen: Nasopharyngeal Result Value Ref Range COVID-19 RNA Negative Negative I have reviewed the laboratory results. Imaging Results: CT Head WO Contrast Narrative: EXAMINATION: CT head without contrast HISTORY: Mental status changes. Evaluate for subarachnoid hemorrhage TECHNIQUE: Noncontrast CT of the brain was performed with images acquired from skull base to vertex. COMPARISON: MRI 07/03/2021. FINDINGS: Topogram demonstrates no lytic lesions or fractures. There is no acute intracranial hemorrhage. Ventricles are of normal size and morphology. No mass effect or midline shift is present. The alva-white matter differentiation is normal. The visualized portions of the orbits are normal. The visualized portions of the mastoids are normal. The visualized portions of the paranasal sinuses are normal. No fractures are identified. Impression: No acute intracranial abnormality. No evidence for subarachnoid hemorrhage. Electronically signed by: Enrique Boyle M.D. I have independently reviewed and interpreted labs and imaging. Assessment/Plan Recurrent boils Assessment & Plan Resumed daily doxycycline. Trigeminal neuralgia Assessment & Plan Resume home dose of lamotrigine. Migraine Assessment & Plan Patient has hx of migraine and is on prophylactic topamax, propranolol, lamictal. Also is on PRN maxalt (trying to wean of), nurtec (should be her first line). Patient reports that her current symptoms are not consistent with her usual migraine headache. - will resume her prophylactic regimen. Macular edema, diabetic ([facility]) ([facility]) Assessment & Plan Patient has bilateral macular edema and thought to be 2/2 her underlying diabetes. She follows withDr Seth - continue Ketorolac ocular drop BID as reported by patient. Hyperlipidemia associated with type 2 diabetes mellitus ([facility]) Assessment & Plan Resume lipitor. Hypertension associated with diabetes ([facility]) Assessment & Plan Resume home dose of lisinopril. BMI 38.0-38.9,adult Assessment & Plan Patient is s/p gastric sleeve and has been intolerant of GLP 1. Currently on fraxiga, which I will resume. Type 2 diabetes mellitus with hyperglycemia, with long-term current use of insulin ([facility] ([facility]) Assessment & Plan Patient has well controlled T2DM on insulin pump. Follows with [facility] Saini. Her pump setting is Basal 12a 1.0, 12p 1.2 IC 8 SF 25 T 100 - will continue insulin pump. Endo consulted, who will be seeing patient in the morning. * Lumbar puncture headache Assessment & Plan Developed severe generalized headache radiating all the [...] PRN zofran. Will treat headache with PRN tylenol. - She was originally planning to follow-up with anesthesia at [place] were her procedure was performed in order to receive an epidural blood patch. However in the setting of this admission, pain (considering holiday weekend)/neuro radiology consult in the morning for possible need for blood patch. Code Status: Full Code Diet: Adult Diet Restricted; Consistent Carbohydrate documented in this encounter Procedure Notes * Sung Workman MD - 09/12/2021 2:00 PM CDT Procedures PROCEDURE NOTE: Name: Alannah Ruano : 1980 Date of Procedure: 09/12/21 Attending Surgeon: Efrain Intranet Specialist: Sung Workman MD NAME OF PROCEDURE: Epidural Blood Patch (Lumbar) PREPROCEDURAL DIAGNOSIS: - Low pressure CSF headache - following lumbar puncture for CSF sample POSTPROCEDURAL DIAGNOSIS: - Low pressure CSF headache - following lumbar puncture for CSF sample INDICATION FOR PROCEDURE: Severe orthostatic headache INFORMED CONSENT: After reviewing the procedure with the patient, informed consent to proceed with the injection was obtained. A procedural permit was also signed. DESCRIPTION OF PROCEDURE: The patient was placed in the sitting position. The lumbar area was prepped with chlorhexidine solution and draped with sterile drape. Sterile technique was used throughout.At the L3-4 interspace, the skin and subcutaneous tissues were infiltrated with 1% lidocaine. An 18-gauge Tuohy needle was advanced to the epidural space, using the loss of resistance technique. No paresthesias were encountered during needle placement. Aspiration of the needle was negative for blood or other fluid. Attention was then turned to the left Forearm. This area was prepped with chlorhexidine solution and draped with sterile towels. The skin and subcutaneous tissues were infiltrated with 1% lidocaine. 20 ml of blood was drawn, using sterile technique. Maintaining sterile technique, the autologous blood was then slowly injected through the epidural needle for a total of 11 ml. Injection was discontinued at this point due to pressure paresthesias which subsequently readily resolved. The procedure was well tolerated, and there were no apparent complications. DISPOSITION: After a 45 minute period of rest in the supine position, the patient was to be discharged home. The patient was caution to avoid strain or heavy lifting for 3 days. Operative Findings: The epidural blood patch procedure was completed as planned. Complications: There were no apparent complications. Estimated Blood Loss: None Intraoperative Fluids: None Specimens: None TEACHING ATTESTATION : I was present and directly participated in the entire procedure (including opening and closing). Sung Workman MD Cosigned by Jesika Zuniga MD PhD at 09/12/2021 9:28 PM CDT Associated attestation - Jesika Zuniga MD PhD - 09/12/2021 9:28 PM CDT I was present for the entire procedure. documented in this encounter Consult Notes * Sung Workman MD - 09/12/2021 10:16 AM CDTAssociated Order(s): IP CONSULT TO PAIN MANAGEMENT Pain Service Consult Alannah Ruano, [id number] Reason for Consult: Epidural Blood Patch Requesting Provider: Debbie Smith NP Chief Complaint: Headache Subjective Alannah Ruano is a 41 y.o. year old female referred by Debbie Smith NP for consultation regarding her Headache pain. She has a history of DM2, Migraine, Trigeminal neuralgia, HTN. The Pain Service is consulted for headache pain. The pain is described as continuous, throbbing, stabbing, splitting and sickening. There is no radiation of symptoms. Her pain ranges in severity from 8-10/10. Pain right now is 8/10 on the numeric pain scale. Pain is worse during no specific time of the day. Pain is better during no specific time of the day. Provocative factors include standing, sitting and turning. Alleviating factors include lying, rest and medications. Current Inpatient Analgesic Regimen: Tegretol 100 TID Topamax 200 BID APAP 650 q6 PRN Toradol 30 q6 PRN Oxycodone 5 q4 PRN Past Medical History: Diagnosis Date ??? Anxiety ??? Asthma Asthma ??? Back pain ??? Cough ??? Depression ??? Diarrhea ??? Fatigue ??? Headache ??? HX OTHER MEDICAL Migraines ??? Hypercholesterolemia High cholesterol ??? Hypertension ??? Migraines ??? Muscle pain ??? Numbness and tingling ??? Pain with urination ??? Seizure (CMS/HCC) (HCC) ??? Type 2 diabetes mellitus (HCC) Past Surgical History: Procedure Laterality Date ??? ADENOIDECTOMY adenoidectomy ??? ORAL SURGERY Oral Surgery ??? TONSILLECTOMY tonsillectomy Medications Prior to Admission Medication Sig Dispense Refill Last Dose ??? albuterol 2.5 mg /3 mL (0.083 %) nebulizer solution albuterol sulfate 2.5 mg/3 mL (0.083 %) solution for nebulization PRN Past Week at Unknown time ??? albuterol ER (VOSPIRE ER) 8 mg 12 hr tablet PATIENT TAKES 8.5 GM DAILY PRN Past Week at Unknowntime ??? atorvastatin (LIPITOR) 20 mg tablet atorvastatin 20 mg tablet TAKE 1 TABLET BY MOUTH EVERY DAY IN THE EVENING 09/08/2021 at Unknown time ??? azelastine (ASTELIN) 137 mcg (0.1 %) nasal spray azelastine 137 mcg (0.1 %) nasal spray aerosol [place] 2 sprays every day by nasal route for 31 days. 09/08/2021 at Unknown time ??? blood glucose diagnostic strip Use to check bg 7 times daily 500 each 1 09/08/2021 at Unknown time ??? blood-glucose meter mis Check bg daily 1 each 0 09/08/2021 at Unknown time ??? buPROPion (WELLBUTRIN) 100 mg tablet Take 100 mg by mouth 2 (two) times a day 09/08/2021 at Unknown time ??? carBAMazepine (TEGretol) 200 mg tablet Take 100 mg by mouth 3 (three) times a day 09/08/2021 at Unknown time ??? cetirizine (ZyrTEC) 10 mg tablet Take 10 mg by mouth daily 09/08/2021 at Unknown time ??? dapagliflozin (FARXIGA) 10 mg tablet Take 1 tablet (10 mg total) by mouth daily 30 tablet 5 09/08/2021 at Unknown time ??? diazePAM (VALIUM) 5 mg tablet Take 5 mg by mouth every 8 (eight) hours as needed 09/08/2021 at Unknown time ??? diphenhydrAMINE (BENADRYL) 25 mg capsule Take 25 mg by mouth every 6 (six) hours as needed PastWeek at Unknown time ??? doxycycline (doxycycline) 100 mg capsule Take 1 tablet/capsule (100 mg total) by mouth daily 90capsule 3 09/08/2021 at Unknown time ??? hydrOXYzine (ATARAX) 25 mg tablet Take 25 mg by mouth 1-2 nightly 09/08/2021 at Unknown time ??? insulin pump cartridge (Omnipod Dash 5 Pack Pod) cartridge Omnipod Dash 5 Pack Insulin Pod subcutaneous cartridge 09/09/2021 at Unknown time ??? ketorolac (ACULAR LS) 0.4 % drops Administer 1 drop into both eyes 2 (two) times a day 09/08/2021t Unknown time ??? lamoTRIgine (LaMICtal) 100 mg tablet Take 100 mg by mouth daily 09/08/2021 at Unknown time ??? lisinopriL (PRINIVIL,ZESTRIL) 10 mg tablet Take 10 mg by mouth daily 09/08/2021 at Unknown time ??? montelukast (SINGULAIR) 10 mg tablet 09/08/2021 at Unknown time ??? OneTouch Delica Plus Lancet 33 gauge misc 09/08/2021 at Unknown time ??? pantoprazole DR (PROTONIX) 40 mg EC tablet Take 40 mg by mouth 2 (two) times a day 09/08/2021 at Unknown time ??? pen needle, diabetic (BD Ultra-Fine Florina Pen Needle) 32 gauge x 5/32 needle USE DIRECTED upto 7 times daily 700 each 0 09/08/2021 at Unknown time ??? phentermine (ADIPEX-P) 37.5 mg tablet 4 Past Month at Unknown time ??? propranoloL (INDERAL) 20 mg tablet Take 20 mg by mouth 2 (two) times a day 09/08/2021 at Unknown time ??? rimegepant (NURTEC ODT) tablet,disintegrating Take 75 mg by mouth daily as needed 09/08/2021 at Unknown time ??? rizatriptan (MAXALT) 10 mg tablet Take 10 mg by mouth once as needed for migraine May repeat in2 hours if unresolved. Do not exceed 30 mg in 24 hours. 09/08/2021 at Unknown time ??? topiramate (TOPAMAX) 200 mg tablet 200 mg 2 (two) times a day 09/08/2021 at Unknown time ??? ziprasidone (GEODON) 20 mg capsule Take 20 mg by mouth 2 (two) times a day with meals 09/08/2021 at Unknown time ??? fenofibrate (TRIGLIDE) 160 mg tablet Take 160 mg by mouth daily Unknown at Unknown time ??? fexofenadine (OCHOA) 180 mg tablet TAKE 1 TABLET DAILY NEEDED. Unknown at Unknown time ??? insulin aspart (NovoLOG) 100 unit/mL (3 mL) pen for injection Novolog Flexpen U-100 Insulin aspart 100 unit/mL (3 mL) subcutaneous INJECT UP TO 44 UNITS 3 TIMES A DAY BEFORE MEALS Unknown at Unknown time ??? insulin aspart (NovoLOG) 100 unit/mL vial for injection Use up to 160 units per day in insulin pump 150 mL 3 Unknown at Unknown time ??? insulin aspart (NovoLOG) 100 unit/mL vial for injection Novolog U-100 Insulin aspart 100 unit/mL subcutaneous solution Unknown at Unknown time ??? insulin aspart U-100 (NovoLOG Flexpen U-100 Insulin) 100 unit/mL (3 mL) insulin pen Inject up to 44 units TIDAC 15 pen 0 Unknown at Unknown time ??? insulin glargine (BASAGLAR) 100 unit/mL (3 mL) pen for injection Basaglar KwikPen U-100 [id number] unit/mL (3 mL) subcutaneous INJECT UP TO 60 UNITS UNDER THE SKIN AT BEDTIME Unknown at Unknown time ??? Levemir FlexTouch U-100 Insuln 100 unit/mL (3 mL) insulin pen INJECT 50 UNITS UNDER THE SKIN NIGHTLY 45 mL 1 Unknown at Unknown time Allergies Allergen Reactions ??? Mushroom Anaphylaxis ??? Nut Flavor Anaphylaxis MAINLY PECANS CAN TOLERATE PEANUTS Social History Tobacco Use ??? Smoking status: Former Smoker ??? Smokeless tobacco: Never Used ??? Tobacco comment: smoked for 3 years Substance and Sexual Activity ??? Drug use: Never Comment: Rare alcohol use ??? Sexual activity: Not on file Alcohol Use: Not on file Family History Problem Relation [...] Maternal Grandmother ??? Macular degeneration Maternal Grandmother None Review of Systems: Review of Systems Scheduled Medications: atorvastatin, 20 mg, oral, Nightly azelastine, 2 spray, each nostril, BID buPROPion, 100 mg, oral, BID carBAMazepine, 100 mg, oral, TID cetirizine, 10 mg, oral, Daily dapagliflozin, 10 mg, oral, Daily doxycycline, 100 mg, oral, Daily enoxaparin, 40 mg, subcutaneous, Daily-2100 insulin lispro, 8 Units, subcutaneous, TID with meals ketorolac, 1 drop, each eye, BID lamoTRIgine, 100 mg, oral, Daily lisinopriL, 10 mg, oral, Daily montelukast, 10 mg, oral, Nightly pantoprazole DR, 40 mg, oral, BID propranoloL, 20 mg, oral, BID topiramate, 200 mg, oral, BID ziprasidone, 20 mg, oral, BID with meals (bkfst, dinner) Continuous Medications: INSULIN PUMP - insulin aspart (NovoLOG), 0-25 Units Lactated Ringer's, 75 mL/hr, Last Rate: 75 mL/hr (09/12/21705) PRN Medications: ??? acetaminophen, 650 mg, 650 mg at 09/12/21 0705 ??? albuterol, 2.5 mg ??? dextrose, 15 g OR dextrose, 250 mL ??? diazePAM, 5 mg, 5 mg at 09/12/21 1013 ??? glucagon, 1 mg ??? hydrOXYzine, 25 mg, 25 mg at 09/11/212049 ??? ketorolac, 30 mg, 30 mg at 09/12/21 0824 ??? ondansetron, 4 mg, 4 mg at 09/10/21 1046 ??? oxyCODONE, 5 mg, 5 mg at 09/12/21 07 Current Facility-Administered Medications Medication Dose Route Frequency Provider Last Rate Last Admin ??? acetaminophen (TYLENOL) tablet 650 mg 650 mg oral Q6H PRN Travon Shah MD 650 mg at 09/12/21 07 ??? albuterol 2.5 mg/0.5 mL nebulizer solution 2.5 mg 2.5 mg nebulization Q4H PRN (RT) Travon Shah MD ??? atorvastatin (LIPITOR) tablet 20 mg 20 mg oral Nightly Travon Shah MD 20 mg at 09/11/212048 ??? azelastine (ASTELIN) 137 mcg (0.1 %) nasal spray 2 spray 2 spray each nostril BID Travon Shah MD 2 spray at 09/11/212051 ??? buPROPion (WELLBUTRIN) tablet 100 mg 100 mg oral BID Travon Shah MD 100 mg at 09/12/21 0825 ??? carBAMazepine (TEGretol) 20 mg/mL oral suspension 100 mg 100 mg oral TID Travon Shah MD 100 mg at 09/12/21 1014 ??? cetirizine (ZyrTEC) tablet 10 mg 10 mg oral Daily Travon Shah MD 10 mg at 09/12/21 1014 ??? dapagliflozin (FARXIGA) tablet 10 mg 10 mg oral Daily Travon Shah MD 10 mg at 09/11/21 0959 ??? dextrose gel in packet 15 g 15 g oral Q15 Min PRN Travon Shah MD Or ??? dextrose (D10W) 10% bolus 250 mL 250 mL intravenous Q15 Min PRN Travon Shah MD ??? diazePAM (VALIUM) tablet 5 mg 5 mg oral Q8H PRN Travon Shah MD 5 mg at 09/12/21 1013 ??? doxycycline (VIBRAMYCIN) tablet/capsule 100 mg 100 mg oral Daily Travon Shah MD 100 mg at09/12/21 0950 ??? enoxaparin (LOVENOX) syringe 40 mg 40 mg subcutaneous Daily-2100 Travon Shah MD 40 mg at 09/11/212051 ??? glucagon injection 1 mg 1 mg intramuscular Q30 Min PRN Travon Shah MD ??? hydrOXYzine (ATARAX) tablet 25 mg 25 mg oral QID PRN Travon Shah MD 25 mg at 09/11/212049 ??? insulin lispro (HumaLOG, ADMELOG) 100 unit/mL injection 8 Units 8 Units subcutaneous TID with meals Travon Shah MD ??? INSULIN SUBCUTANEOUS PUMP (NOVOLOG) 100 UNIT/ML INSULIN PUMP INFUSION (NovoLOG) patient supplied pump 0-25 Units 0-25 Units subcutaneous Continuous Shanon Unger MD 20.3 Units at 09/10/21 185 ??? ketorolac (ACULAR) 0.5 % ophthalmic solution 1 drop 1 drop each eye BID Travon Shah MD 1 drop at 09/11/212051 ??? ketorolac (TORADOL) 30 mg/mL (1 mL) injection 30 mg 30 mg intravenous Q6H PRN Lin Lerma MD 30 mg at 09/12/21 0824 ??? Lactated Ringer's (LR) infusion 75 mL/hr intravenous Continuous Travon Shah MD 75 mL/hr at 09/12/21705 75 mL/hr at 09/12/21 07 ??? lamoTRIgine (LaMICtal) tablet 100 mg 100 mg oral Daily Travon Shah MD 100 mg at 09/11/212048 ??? lisinopriL (PRINIVIL,ZESTRIL) tablet 10 mg 10 mg oral Daily Travon Shah MD 10 mg at 09/12/21 0950 ??? montelukast (SINGULAIR) tablet 10 mg 10 mg oral Nightly Travon Shah MD 10 mg at 09/11/212048 ??? ondansetron (ZOFRAN) injection 4 mg 4 mg intravenous Q6H PRN Travon Shah MD 4 mg at 09/10/21 1046 ??? oxyCODONE (ROXICODONE) tablet 5 mg 5 mg oral Q6H PRN Alley Greco NP 5 mg at 09/12/21 0705 ??? pantoprazole DR (PROTONIX) extended release tablet 40 mg 40 mg oral BID Travon Shah MD 40mg at 09/12/21 0824 ??? propranoloL (INDERAL) tablet 20 mg 20 mg oral BID Travon Shah MD 20 mg at 09/12/21 0950 ??? topiramate (TOPAMAX) tablet 200 mg 200 mg oral BID Travon Shah MD 200 mg at 09/11/212049 ??? ziprasidone (GEODON) capsule 20 mg 20 mg oral BID with meals (bkfst, dinner) Travon Shah MD 20 mg at 09/11/212147 Dietary: Dietary Orders (From admission, onward) Start Ordered 09/09/212124 Adult Diet Restricted; Consistent Carbohydrate Diet effective now Question Answer Comment ([facility]) Diet type Restricted Diabetic: Consistent Carbohydrate 09/09/212123 Objective Vitals: 24hr Min/Max: Temp Min: 36.4 ??C (97.52 ??F) Max: 36.8 ??C (98.2 ??F) Pulse Min: 63 Max: 78 BP Min: 116/56 Max: 130/63 Resp Min: 16 Max: 16 SpO2 Min: 97 % Max: 99 % Most Recent : Vitals: 09/12/2150 BP: 125/71 Pulse: 65 Resp: Temp: SpO2: No intake/output data recorded. No intake/output data recorded. CONSTITUTIONAL: general appearance normal EYES: conjunctivae/corneas clear. PERRL EARS / NOSE / MOUTH / THROAT: External inspection of ears normal. CARDIOVASCULAR: No lower extremity edema RESPIRATORY: Normal effort on room air CHEST: Symmetric. GASTROINTESTINAL: Normal abdomen SKIN: No rash PSYCHIATRIC: alert,oriented, in NAD with a full range of affect, normal behavior and no psychotic features MUSCULOSKELETAL EXAMINATION: No clubbing or cyanosis of digits. NEUROLOGIC EXAM: Defer. Sensory Exam: Intact to gross touch to bilateral upper and lower extremities. Lab/Radiology/Diagnostic Review: Recent Labs Lab Units 09/12/21 0514 WBC K/cumm 8.0 HEMOGLOBIN g/dL 12.3 HEMATOCRIT % 36.5 PLATELETS K/cumm 201 Recent Labs Lab Units 09/12/21 0919 09/12/21 0806 09/12/21 0514 SODIUM mmol/L -- -- 140 POTASSIUM PLASMA mmol/L -- -- 3.6 CHLORIDE mmol/L -- -- 106 CO2 mmol/L -- -- 28 ANIONGAP mmol/L -- -- 6 GLUCOSE mg/dL -- -- 80 POC GLUCOSE MONITOR mg/dL 117 < > -- BUN SERUM mg/dL -- -- 15 CREATININE mg/dL -- -- 0.97 CALCIUM mg/dL -- -- 8.9 < > = values in this interval not displayed. Assessment/Plan Alannah Ruano is a 41 y.o. female who presents with Headache. Plan 1. Intervention: Given the signs and symptoms of the above problem, we will proceed with Epidural Blood Patch. R/B/A discussed, including but not limited to bleeding, infection, and possible nerve injury/paralysis. Alternatives (risks) include: medication management (dependency), no intervention (increased pain). Patient understands risks/benefits/alternatives and agrees to proceed with injection. 2. Medications: a. Opioids: PO: continue Oxycodone 5mg q 4hr PRN IV: None IV/RESIDENT ASSISTANT: None SubQ: none b. Adjuvants: PO: APAP 1g q6 PRN, Lamotrigine 100 daily and Topirimate 200 BID and IV:Toradol 30 q6 PRN. We will continue to follow. Thank you for allowing us to participate in the care of this patient Sung Workman MD Acute Pain Service Department of Anesthesiology [facility], [facility] Please contact [phone] for questions - this number does not accept voice messages, enter your number and press #. After hours, this is not an in-house pager; please reserve non-urgent calls during the hours of [phone] till am. We are happy to address emergent calls 01/10. 09/12/2021 10:16 AM Cosigned by Jesika Zuniga MD PhD at 09/12/2021 9:27 PM CDT Associated attestation - Jesika Zuniga MD PhD - 09/12/2021 9:27 PM CDT I have seen and examined the patient on 09/12/21. I agree with the findings and plan of care as documented in the resident's/fellow's note.. * Shanon Unger MD - 09/10/2021 2:25 PM CDTAssociated Order(s): CONSULT TO ENDOCRINOLOGY DIABETES Endocrinology & Diabetes Consult Note Patient: Alannah Ruano, 41 y.o. female (: 1980) Room: [place] [id number] ( ) LOS: 1 Consult Question: Insulin Pump management (Requesting Provider: Charleen Guzman MD) Alannah Ruano is a 41 y.o. female with PMH of T2DM complicated by neuropathy with h/o gastroparesis, obesity s/p gastric sleeve in 08/29, HLD who presented with 2 days of headache, nausea and vomiting and an episode of syncope after a lumbar puncture. She underwent LP on 09/07/21 and has since been having intractable generalized throbbing positional headache. Endocrinology consulted for Insulinpump management Current Management: Insulin pump on home settings Pertinent info: Recent HbA1C - 5.6 Weight - 95.9 kg Cr - 0.66 Current Diet - Diet: Adult Diet Restricted; Consistent Carbohydrate Recent Labs Lab Units 09/10/21 1322 09/10/21 0901 09/10/21 0609 09/09/21 0902 09/09/21 0634 GLUCOSE mg/dL -- -- 81 99 -- POC GLUCOSE MONITOR mg/dL 84 85 -- -- 109 Lab Results Component Value Date HGBA1C 5.6 09/09/2021 Steroids: None Diabetes History Type: Type 2 Duration: Over 5 years Barometers Calibrator: Dr Kurt Saini Historical HbA1C: 5.6 - 11 Home regimen:Novolog via Omnipod insulin pump, Farxiga 10mg. Could not tolerate GLP1 due to GI sideeffects. Pump Settings: TDB: 26.4 units Basal rate: 12am: 1.0, 12pm: 1.2 ICR: 1:8 Insulin Sensitivity: 2 mg/dl Active Insulin Time: 4 Target glucose: 100 14 Day log: TDD: 33 units Basal: 21.4 units ( 65%) Bolus: 11.6 units ( 35%) Carbs: 98.[address] Gluc: 137 In range: 67 % Above: 33 % Hi: 172 Lo: 115 Home glucose monitoring: Continuous glucose monitoring: Dexcom G6, not linked to [facility], See media tab for phone tracing Range of BG: She reports less than 90 mg/dl fasting, premeal < 100, 2hr post meal in low 100s Hypoglycemic events: Admitted to the ED on 06/13/21 for persistent hypoglycemia, no new episodes Prior admissions: DKA/HHS/Hypoglycemia/Pancreatitis: Denies Micro- and macrovascular complications: Retinopathy: Denies CVA/PAD/CAD/MT/CHF: Denies, On Atorvastatin 20 mg and Fenofibrate 160 mg Neuropathy: h/o neuropathy Nephropathy: None, On Lisinopril 10 mg Gastropathy: h/o gastroparesis Foot ulcers: Denies Family history of DM: Father had T2DM PMH & PSH She has a past medical history of Anxiety, Asthma, Back pain, Cough, Depression, Diarrhea, Fatigue,Headache, OTHER MEDICAL, Hypercholesterolemia, Hypertension, Migraines, Muscle pain, Numbness and tingling, Pain with urination, Seizure (CMS/HCC) (HCC), and Type 2 diabetes mellitus (HCC). She has a past surgical history that includes ADENOIDECTOMY; Tonsillectomy; and Oral surgery. Social & Family History She reports that she has quit smoking. She has never used smokeless tobacco. She reports that she does not use drugs. Patient reports consuming alcoholic drinks , with a daily consumption of drinks. Patient also reports consumption of 6 or more alcoholic drinks at one occasion. Her family history includes Depression in her sister; Diabetes in her father; Glaucoma in her maternal grandmother; Heart attack in her father; Hypertension in her father, sister, and sister; Maculardegeneration in her maternal grandmother; Mental illness in her sister; Migraines in her father andsister; Stroke in her father. Review of Systems Twelve point ROS reviewed and negative except as noted in HPI. All other systems negative. Vitals & Physical Exam Temp: [36.6 ??C (97.9 ??F)-36.7 ??C (98.06 ??F)] 36.7 ??C (98.06 ??F) Pulse: [79-82] 82 BP: (139-141)/(83-95) 141/83 Resp: [17-20] 17 SpO2: [98 %-99 %] 98 % Body mass index is 36.27 kg/m??. No intake/output data recorded. Physical Exam Gen : no acute distress, drowsy, appropriate, cooperative, appears stated age, well-developed, obese HENT : normocephalic, atraumatic, moist mucus membranes Eyes : conjunctiva clear, anicteric, no proptosis, PERRL Pulm : clear to auscultation in anterior qiu, non-labored, on room air CV : regular rate & rhythm, no murmurs/rubs/gallops Abd : soft, non-tender, non-distended, normoactive bowel sounds, no striae Extr : atraumatic, no cyanosis/clubbing/edema Skin : turgor normal, no rashes/wounds/lesions Neuro : drowsy speech fluent, comprehension intact, moving all extremities Psych : cooperative, appropriate affect & mood, good insight & judgment Data Medications, labs, imaging, and diagnostics independently reviewed in [facility] and commented on below. Lab Results Component Value Date TSH 0.84 06/09/2021 FREET4 1.22 06/09/2021 Lab Results Component Value Date CHOL 284 (H) 09/09/2021 TRIG See Comment 09/09/2021 HDL 43 09/09/2021 LDLCALC See Comment 09/09/2021 Lab Results Component Value Date CORTISOL 0.6 07/26/2020 Lab Results Component Value Date HGBA1C 5.6 09/09/2021 Assessment & Plan # Type 2 diabetes, well controlled with correction use of insulin, on insulin pump complicated by neuropathy Home regimen:Novolog via Omnipod insulin pump, Farxiga 10mg. Pump Settings: TDB: 26.4 units Basal rate: 12am: 1.0, 12pm: 1.2 ICR: 1:8 Insulin Sensitivity: 2 mg/dl Active Insulin Time: 4 Target glucose: 100 HbA1C: 5.6 Recommendations: - Continue Insulin pump at above settings - Okay to continue Farxiga - Monitoring as per pharmacy - POC glucoses tid AC + qHS - Carb consistent diet - No juice or regular soda Discharge recommendations: - Insulin pump on home settings - Please send a prescription for Glucagon rescue kit e.g Basqimi or Gvoke # Insulin Pump Insulin pumps may be associated with adverse events, please consider the followin) Use must comply with appropriate institutional policies and procedures 2) Patient must sign insulin pump agreement and staff must provide pump log to document timing and amount of insulin administered 3) Patient must have physical and mental capacity for pump self-management 4) Primary Team must place initial pump orders in Epic 5) Consult Endocrinology for pump settings, parameter adjustments, and management 6) Confirm final pump settings with Endocrinology before discharging patient home on pump If above stipulations cannot be met; disallow pump, convert to basal-bolus SQ regimen: NPH 12 units q12h or Lantus 24 units daily Humalog 8 units TID AC Insulin resistant sliding scale AC HS - IF patient is hyperglycemic, please have the patient correct using the pump - IF patient is hypoglycemic, please treat (e.g. small amount of juice), and set a lower temporary basal rate (e.g. 80% temporary basal for 24 hours) - IF the pump is disconnected, please give 4 units of Humalog every 4 hours, until reconnected > This is his basal rate, multiplied by 4 (the rough duration of action of Humalog) - IF the patient is to be NPO for more than 12 hours, please contact endocrinology/diabetes for likely decrease in basal rate of pump - IF the patient is no longer capable of operating the pump or it is disconnected for more than 8h,convert to basal-bolus regimen listed above. # Mixed hyperlipidemia: Her diabetes and elevated cholesterol are indications for statin therapy. - On Atorvastatin 20 mg and Fenofibrate 160 mg # Essential Hypertension: MITESH/ARB use in diabetics can prevent the progression of renal disease. - On Lisinopril 10 mg daily # Obesity: This complicates all aspects of her care, predisposing her to hyperglycemia and increasing her insulin requirements. She was unable to tolerate GLP-1RA (Ozempic), consider lower dose or alternate medication as outpatient. ## Discharge Planning - F/U with her Barometers Calibrator - Dr Kurt Saini -- Shanon Unger MD Clinical Fellow Endocrinology, Metabolism, & Lipid Research Contact Info: New Consults: [phone]) General Endocrine (Non-Diabetes): [phone] (Check 'Treatment Team' assignment for Diabetes 1 vs 2 vs 3) Diabetes 1: Diabetes Fellow: [phone] Diabetes 2: Amy Rahman, ACCOUNT EXECUTIVE KEY ACCOUNTS: [phone] Diabetes 3: See Treatment Team Provider (or call Amy Rahman, above) Diabetes After-Hours & Weekends: Diabetes Fellow Cosigned by Jenny Kan MD at 09/10/2021 3:26 PM CDT Associated attestation - Jenny Kan MD - 09/10/2021 3:26 PM CDT I have seen and examined the patient on 09/10/21. I agree with the findings and plan of care with the following modifications: For from my history, she did not have actual syncope but had presyncope with some dizziness and lightheadedness; she fell and hit her occipital portion of the head but no loss of consciousness... Regarding her hypoglycemia, she does not have any glucagon nor does she have a medical alert identification. No history of driving mishaps. She has a Dexcom CGM which helps give her alerts to minimize the risk of hypoglycemia. She is adept in using and managing the insulin pump. Thank you for giving us the opportunity to participate in her care. documented in this encounter Nursing Notes * Olivia Nguyen RN - 09/12/2021 3:32 PM CDT Pt AA&Ox4, VSS. Pt given discharge instructions and verbalizes understanding. Pt sent home withall belongings. Pt picked up by friend. documented in this encounter ED Notes * Romie Wilder MD PhD - 09/09/2021 8:41 AM CDT HPI Chief Complaint Patient presents with ??? Fall ??? Back Pain Patient: 41 y.o. female a PMHx of HTN, T2DM, migraine headaches P/w: Headache HPI: Ms. Ruano has been having a constant headache since lumbar puncture that she underwent a weekago for assessment for possible MS. Positional headache that is worse when she is sitting upper standing accompanied by nausea and vomiting. She says this headache is significantly different from hermigraine headaches although she has several different semiology of her migraine. She was originally planning to follow-up with anesthesia at [facility] were her procedure was performed in order to receive an epidural blood patch. However, she was in town today for an event and experienced dizziness and lightheadedness while in the bathroom sitting down and fell from a sitting position hitting her head on the floor. She believes she lost consciousness for a short period of time because her friendstold her they were trying to get into the bathroom and she was not responding. She complains of right-sided head pain after the fall and believes that her nausea is worsened. She denies any other injuries, including neck pain. She notes that she was told she had a mini stroke years ago. Code status: Full Allergies: NKDA PMH/PSH: See patient summary above Family history: Non-contributory Social: Denies tobacco use, drug use HPI Patient History: Patient Active Problem List Diagnosis Date Noted ??? Lumbar puncture headache 09/09/2021 ??? Visual field constriction, bilateral 08/25/2021 ??? Macular edema, diabetic (CMS/HCC) (HCC) 08/25/2021 ??? Insulin pump status 12/25/2019 ??? Hypertension associated with diabetes (HCC) 12/10/2019 ??? Hyperlipidemia associated with type 2 diabetes mellitus ([facility]) 12/10/2019 ??? Type 2 diabetes mellitus with hyperglycemia, with long-term current use of insulin ([facility]) ([facility]) 06/04/2019 ??? BMI 38.0-38.9,adult 06/04/2019 ??? Morbid obesity ([facility]/HCC) ([facility]) 06/04/2019 Past Medical History: Diagnosis Date ??? Anxiety ??? Asthma Asthma ??? Back pain ??? Cough ??? Depression ??? Diarrhea ??? Fatigue ??? Headache ??? HX OTHER MEDICAL Migraines ??? Hypercholesterolemia High cholesterol ??? Hypertension ??? Migraines ??? Muscle pain ??? Numbness and tingling ??? Pain with urination ??? Seizure (CMS/HCC) ([facility]) ??? Type 2 diabetes mellitus ([facility]) Past Surgical History: Procedure Laterality Date ??? ADENOIDECTOMY adenoidectomy ??? ORAL SURGERY Oral Surgery ??? TONSILLECTOMY tonsillectomy Family History Problem Relation Age of Onset [...] Maternal Grandmother ??? Macular degeneration Maternal Grandmother Social History Tobacco Use ??? Smoking status: Former Smoker ??? Smokeless tobacco: Never Used ??? Tobacco comment: smoked for 3 years Substance Use Topics ??? Alcohol use: Yes ??? Drug use: Never Comment: Rare alcohol use Social History Social History Narrative No alcohol use : (Added by TW Conv) Review of Systems Review of Systems Constitutional: Negative for fever. HENT: Negative for congestion. Respiratory: Negative for cough, chest tightness and shortness of breath. Cardiovascular: Negative for chest pain. Gastrointestinal: Positive for nausea and vomiting. Negative for abdominal pain. All other systems reviewed and are negative. Physical Exam ED Triage Vitals Temp Pulse Resp BP SpO2 09/09/21 0632 09/09/21 0632 09/09/21 0632 09/09/21 0632 09/09/21 0632 36.6 ??C (97.9 ??F) 100 18 (!) 154/114 100 % Temp src Heart Rate Source Patient Position BP Location FiO2 (%) -- 09/09/21 0834 09/09/21 0834 09/09/21 0834 -- Monitor Lying Right arm Height Height Method Weight Weight Method -- -- -- -- Physical Exam Vitals and nursing note reviewed. Constitutional: General: She is not in acute distress. Appearance: She is well-developed. HENT: Head: Normocephalic and atraumatic. Mouth/Throat: Mouth: Mucous membranes are moist. Eyes: Extraocular Movements: Extraocular movements intact. Conjunctiva/sclera: Conjunctivae normal. Cardiovascular: Rate and Rhythm: Normal rate and regular rhythm. Pulmonary: Effort: Pulmonary effort is normal. No respiratory distress. Abdominal: General: Abdomen is flat. There is no distension. Musculoskeletal: Cervical back: Normal range of motion. Right lower leg: No edema. Left lower leg: No edema. Skin: General: Skin is warm and dry. Neurological: Mental Status: She is alert. Comments: Grossly nonfocal. Alert and oriented. PERRL. Formal visual acuity, field exam, and fundoscopy was not performed. EOMI. No nystagmus. Sensation intact in upper and lower face. The face appears symmetric with intact eyebrow raise, palpebral mm strength and symmetric elevation of the angles of the mouth. Aural acuity grossly normal. Formal auditory testing not performed. Palate elevation symmetric. No tongue deviation. Normal shrug strength. [place] strength, push, pull, hip flexion, plantar flexion and dorsiflexion symmetric but generally decreased slightly. Sensation to light touch intact in all extremities. No hemisensory neglect. [id number] testing reveals some subtle discoordination on the left without dysmetria. The gait is slow, shuffling and rising and seating are slow. Negative romberg sign and negative pronator drift. No asterixis. [facility] Medical Decision Making Differential Diagnosis or Management Options: Patient: 41 y.o. female with a PMHx of HTN, T2DM, migraine headaches presents with new type of headache. Their history is significant for nausea, vomiting, positional headache after lumbar puncture and their examination is significant for slight dysmetria on the left side. Top differential diagnoses include (among other considered diagnosis): Most likely: Post dural puncture headache, migraine, intracranial process, concussion Plan: Labs: CBC, BMP, trops Imaging: Head CT Diagnostics: EKG Consults: Pain management for possible epidural blood patch Treatments: Headache cocktail: initial compazine, benedryl, fluids, tylenol, will consider toradol or droperidol if there is no concern for ICH. Dispo: Pending symptom control Attending Summary of Care ED Course as of 09/09/211912 Time: 09/09 1151 Comment: Attending physician note: I have independently performed a history and physical examination of the patient. I have discussed management and disposition with the resident. I reviewed the resident's note and agree with the documented findings and plan of care, except where otherwise noted. 41 F with hx of chronic headaches, possible multiple sclerosis, underwent LP on at OSH, having positional headache, vomiting, worse this am. Had syncopal event while vomiting. Very uncomfortable with sitting up/movement. At this point after medication, symptoms improved whenlaying down, but still unable to sit/move. Given severity of symptoms, negative head CT, consistentwith PDPH, will plan to discuss with anesthesiology for consideration of blood patch. By: Judy Morgan MD Time: 09/09 1235 Comment: Resident discussed with anesthesia/pain management. Would only be able to do blood patch if patient admitted. By: Judy Morgan MD Time: 09/09 1436 Comment: Attg note: pt with post LP headache. Hard to get up and do things. Cannot do blood patch unless admitted per anesthesia. Pt will be admitted for procedure. By: Dax Pickard MD Time: 09/09 1512 Comment: Per Dr. Pickard, patient has a post-LP headache. Pain management states an epidural blood patch can be performed in patient. By: Virgilio Wright MD Time: 09/09 191 Comment: Pednign at sigout: admit to medicine for epidural blood patch tomorrow By: Tania Roberts MD Lumbar puncture headache Fall, initial encounter Head injury, initial encounter I have seen and examined the patient on 09/09/2021. I agree with the findings and plan of care as documented in the resident's note. Romie Wilder MD PhD Resident 09/09/211901 Cosigned by Dax Pickard MD at 09/11/2021 8:19 AM CDT * Nemo Beasley RN - 09/09/2021 6:33 AM CDT Pt presents to ED via EMS from hotel room. Pt reportedly was sitting on side of tub and felt like she was going to be sick, she then leaned forward and fell from sitting position to tile floor hitting her head. +/-LOC. Pt had friends attempt to lift her off the ground, unable to do so d/t back pain. Pt reports having LP at [facility], was scheduled procedure. She states if her headache was still this bad this afternoon they told her to call them. This headache is not new from when LP was preformed. documented in this encounter Miscellaneous Notes * Plan of Care - Olivia Nguyen RN - 09/12/2021 3:32 PM CDT Goals: Clinical Goals for the Shift: Monitor VS, admin meds Summary: VSS. Medications administered (see MAR). Problem: Lack of Knowledge: Goal: Ability to state ways to decrease the risk of falls will improve Outcome: Adequate for Discharge Problem: Safety: Goal: Will remain free from falls Outcome: Adequate for Discharge Goal: Will remain free from injury from falls Outcome: Adequate for Discharge Goal: Will remain free from falls and injury in home environment Outcome: Adequate for Discharge Problem: Activity: Goal: Risk for activity intolerance will decrease Outcome: Adequate for Discharge Problem: Lack of Knowledge: Goal: Knowledge of diagnostic tests will improve Outcome: Adequate for Discharge Goal: Knowledge of disease or condition will improve Outcome: Adequate for Discharge Goal: Knowledge of safety precautions will improve Outcome: Adequate for Discharge Problem: Health Behavior: Goal: Ability to state signs and symptoms to report to health care provider will improve Outcome: Adequate for Discharge Problem: Lack of Knowledge: Goal: Ability to describe self-care measures that may prevent or decrease complications will improve Outcome: Adequate for Discharge Goal: Knowledge of disease or condition will improve Outcome: Adequate for Discharge Goal: Knowledge of the prescribed therapeutic regimen will improve Outcome: Adequate for Discharge Goal: Knowledge of prevention and discharge planning will improve Outcome: Adequate for Discharge Problem: Coping: Goal: Ability to adjust to condition or change in health will improve Outcome: Adequate for Discharge Problem: Fluid Volume: Goal: Ability to maintain a balanced intake and output will improve Outcome: Adequate for Discharge Problem: Health Behavior: Goal: Ability to identify and alter actions that are detrimental to health will improve Outcome: Adequate for Discharge Goal: Ability to identify and utilize available resources and services will improve Outcome: Adequate for Discharge Goal: Ability to manage health-related needs will improve Outcome: Adequate for Discharge Problem: Nutritional: Goal: Maintenance of adequate nutrition will improve Outcome: Adequate for Discharge Goal: Progress toward achieving an optimal weight will improve Outcome: Adequate for Discharge Problem: Physical Regulation: Goal: Complications related to the disease process, condition or treatment will be avoided or minimized Outcome: Adequate for Discharge Goal: Diagnostic test results will improve Outcome: Adequate for Discharge Problem: Skin Integrity: Goal: Risk for impaired skin integrity will decrease Outcome: Adequate for Discharge Problem: Lack of Knowledge: Goal: Ability to develop a pain control plan will improve Outcome: Adequate for Discharge Goal: Ability to identify pain intensity on a pain scale and rate it consistently will improve Outcome: Adequate for Discharge Goal: Ability to notify healthcare provider of pain before it becomes unmanageable or unbearable will improve Outcome: Adequate for Discharge Problem: Medication: Goal: Satisfaction with pain management regimen will improve Outcome: Adequate for Discharge Problem: Sensory: Goal: Ability to identify factors that increase the pain will improve Outcome: Adequate for Discharge Goal: Pain level will decrease Outcome: Adequate for Discharge Problem: Lack of Knowledge: Goal: Verbalization of understanding the information provided will improve Outcome: Adequate for Discharge Problem: Fluid Volume: Goal: Maintenance of adequate hydration will improve Outcome: Adequate for Discharge Goal: Will show no signs and symptoms of electrolyte imbalance Outcome: Adequate for Discharge Problem: Nutritional: Goal: Maintenance of adequate nutrition will improve Outcome: Adequate for Discharge Problem: Sensory: Goal: Occurrences of nausea will decrease Outcome: Adequate for Discharge Problem: Activity: Goal: Ability to tolerate increased activity will improve Outcome: Adequate for Discharge Problem: Cardiac: Goal: Hemodynamic stability will improve Outcome: Adequate for Discharge Goal: Complications related to the disease process, condition or treatment will be avoided or minimized Outcome: Adequate for Discharge Goal: Cerebral tissue perfusion will improve Outcome: Adequate for Discharge Problem: Lack of Knowledge: Goal: Knowledge of disease or condition will improve Outcome: Adequate for Discharge Goal: Knowledge of the prescribed therapeutic regimen will improve Outcome: Adequate for Discharge Problem: Coping: Goal: Ability to identify and develop effective coping behavior will improve Outcome: Adequate for Discharge Problem: Health Behavior: Goal: Identification of resources available to assist in meeting health care needs will improve Outcome: Adequate for Discharge Problem: Nutritional: Goal: Ability to identify appropriate dietary choices will improve Outcome: Adequate for Discharge Problem: Health Behavior: Goal: Understanding of discharge needs will improve Outcome: Adequate for Discharge * Hospital Course - Debbie Smith NP - 09/12/2021 3:32 PM CDT #Post LP headache Patient presented with intractable BATES and dizziness after recent outpatient LP. She was hydrated with IVF and treated with analgesics and antiemetics w/o improvement. Pain management was consulted and performed epidural blood patch. BATES resolved and she was discharged home. #DM Endocrine was consulted and managed her insulin pump while inpatient. Continued at home settings atdc. Script sent to pharmacy for glucagon kit. #Hx of migraines Continued on home medications. #HTN Continued on lisinopril. * Plan of Care - Akua Phillips RN - 09/12/2021 2:03 PM CDT CM spoke with the patient regarding PT recommendation for SNF. The patient has refused at this time. * Subjective & Objective - Debbie Smith NP - 09/12/2021 1:10 PM CDT Daily Progress Note Division of Hospital Medicine Name: Alannah Ruano Today: September 12, 2021 : 1980 Age: 41 y.o. female Admit: 09/09/2021 Bed: [id number] Subjective Chief complaint: BATES Interval History: Continues to complain of intractable BATES with nausea and dizziness. Pain consultedfor blood patch. Objective Medications: Scheduled: atorvastatin, 20 mg, oral, Nightly azelastine, 2 spray, each nostril, BID buPROPion, 100 mg, oral, BID carBAMazepine, 100 mg, oral, TID cetirizine, 10 mg, oral, Daily dapagliflozin, 10 mg, oral, Daily doxycycline, 100 mg, oral, Daily enoxaparin, 40 mg, subcutaneous, Daily-2100 insulin lispro, 8 Units, subcutaneous, TID with meals ketorolac, 1 drop, each eye, BID lamoTRIgine, 100 mg, oral, Daily lisinopriL, 10 mg, oral, Daily montelukast, 10 mg, oral, Nightly pantoprazole DR, 40 mg, oral, BID propranoloL, 20 mg, oral, BID topiramate, 200 mg, oral, BID ziprasidone, 20 mg, oral, BID with meals (bkfst, dinner) Infusions: INSULIN PUMP - insulin aspart (NovoLOG), 0-25 Units Lactated Ringer's, 75 mL/hr, Last Rate: 75 mL/hr (09/12/21 0706) PRN: acetaminophen albuterol dextrose OR dextrose diazePAM glucagon hydrOXYzine ketorolac ondansetron oxyCODONE Vitals: 24hr Min/Max: Temp Min: 36.4 ??C (97.52 ??F) Max: 36.8 ??C (98.2 ??F) Pulse Min: 57 Max: 78 BP Min: 116/56 Max: 144/85 Resp Min: 16 Max: 16 SpO2 Min: 97 % Max: 99 % Most Recent: Vitals: 09/12/21 1103 BP: 144/85 Pulse: 57 Resp: Temp: SpO2: 98% No intake or output data in the 24 hours ending 09/12/21 1310 Physical Exam Constitutional: NAD, well developed, morbidly obese Eyes: PERRL, EOMI, anicteric ENT: NCAT, oropharynx normal, moist mucus membranes Lungs: Clear to auscultation in all lung qiu, unlabored Cardiovascular: RRR, normal S1 and S2, no murmurs, no JVD GI: Soft, non-tender, non-distended, bowel sounds + Skin: No new rashes, lesions or bruises on visible skin Extremities: Normal without edema or cyanosis Lymph: No cervical, supraclavicular, axillary or inguinal adenopathy Neurologic: AOx4, CNII-XII intact, normal strength and sensation Psychiatric: Normal affect and mood I have reviewed the patient's vital signs. Lab/Diagnostic Review: Recent Results (from the past 36 hour(s)) POCT glucose Collection Time: 09/11/21 6:45 AM Result Value Ref Range Glucose, POC 64 (L) 70 - 199 mg/dL POCT glucose Collection Time: 09/11/21 7:04 AM Result Value Ref Range Glucose, POC 76 70 - 199 mg/dL POCT glucose Collection Time: 09/11/21 9:08 AM Result Value Ref Range Glucose, POC 63 (L) 70 - 199 mg/dL POCT glucose Collection Time: 09/11/21 12:23 PM Result Value Ref Range Glucose, POC 78 70 - 199 mg/dL POCT glucose Collection Time: 09/11/21 5:36 PM Result Value Ref Range Glucose, POC 73 70 - 199 mg/dL POCT glucose Collection Time: 09/11/21 8:42 PM Result Value Ref Range Glucose, POC 146 70 - 199 mg/dL Basic metabolic panel Collection Time: 09/12/21 5:14 AM Result Value Ref Range Sodium 140 135 - 145 mmol/L Potassium, pl 3.6 3.3 - 4.9 mmol/L Chloride 106 97 - 110 mmol/L CO2 28 22 - 32 mmol/L Anion gap 6 2 - 15 mmol/L BUN 15 8 - 25 mg/dL Creatinine 0.97 0.60 - 1.10 mg/dL Glucose 80 70 - 199 mg/dL Calcium 8.9 8.5 - 10.3 mg/dL CBC with auto differential Collection Time: 09/12/21 5:14 AM Result Value Ref Range WBC 8.0 3.8 - 9.9 K/cumm Hgb 12.3 11.9 - 15.5 g/dL Hct 36.5 35.6 - 45.5 % Plt 201 150 - 400 K/cumm MPV 9.4 9.1 - 12.3 fL RBC 4.13 3.90 - 5.20 M/cumm MCV 88.4 81.3 - 96.4 fL MCH 29.8 27.1 - 33.3 pg MCHC 33.7 32.3 - 35.7 g/dL RDW CV 12.8 11.1 - 14.9 % RDW SD 41.1 35.7 - 48.1 fL NRBC abs 0.00 0.00 - 0.01 K/cumm Differential, auto Collection Time: 09/12/21 5:14 AM Result Value Ref Range Neutrophil abs 4.1 1.7 - 6.5 K/cumm Imm gran abs 0.0 0.0 - 0.1 K/cumm Lymphocyte abs 3.2 0.8 - 3.3 K/cumm Monocyte abs 0.5 0.2 - 0.8 K/cumm Eosinophil abs 0.2 0.0 - 0.5 K/cumm Basophil abs 0.1 0.0 - 0.1 K/cumm Neutrophil pct 50.9 % Imm gran pct 0.2 % Lymphocyte pct 39.2 % Monocyte pct 6.7 % Eosinophil pct 2.1 % Basophil pct 0.9 % eGFR Collection Time: 09/12/21 5:14 AM Result Value Ref Range eGFR 76 (L) 90 - 130 mL/min/1.73 m2 POCT glucose Collection Time: 09/12/21 8:06 AM Result Value Ref Range Glucose, POC 65 (L) 70 - 199 mg/dL Glucose comment 1 Glu2: RN/ Notified POCT glucose Collection Time: 09/12/21 9:19 AM Result Value Ref Range Glucose, POC 117 70 - 199 mg/dL POCT glucose Collection Time: 09/12/21 12:02 PM Result Value Ref Range Glucose, POC 85 70 - 199 mg/dL I have reviewed the laboratory results. Imaging Results: ECG 12 lead Judy Morgan MD 09/11/2021 2:26 PM ECG 12 lead Date/Time: 09/09/2021 8:51 AM Performed by: Judy Morgan MD Authorized by: Romie Wilder MD PhD Quality: Tracing quality: Limited by artifact Rate: ECG rate: 92 ECG rate assessment: normal Rhythm: Rhythm: sinus rhythm Ectopy: Ectopy: none QRS: QRS axis: Normal Q waves: Q waves: III and aVF Previous ECG: Previous ECG: Unavailable Interpretation: Interpretation: non-specific * Consults, Subsequent - Brianna Grajeda MD - 09/12/2021 7:45 AM CDT Endocrinology & Diabetes Progress Note Patient: Alannah Ruano, 41 y.o. female (: 1980) Room: [place] [address]/[place] [id number] ( ) LOS: 3 Alannah Ruano is a 41 y.o. female with history of T2DM on insulin pump, complicated by neuropathy and gastroparesis, obesity s/p gastric sleeve in 08/2020, hyperlipidemia, who presented with 2 days of headache, nausea and vomiting and an episode of syncope after a lumbar puncture. She underwent LP on 09/07/21 and has since been having intractable generalized throbbing positional headache. Endocrinology consulted for insulin pump management. Interval Events & Subjective Patient reports feeling a little bit better today but still in a lot of pain, crying during exam. She only ate a salad yesterday, did not bolus. Her appetite is still not great, denies nausea/vomiting. BG reviewed - still tightly controlled despite decreasing basal rate, in the range of 63 - 146. Pump interrogated: 20.9 units (basal 100%). Diet: Adult Diet Restricted; Consistent Carbohydrate Recent Labs Lab Units 09/12/21 0514 09/11/21 2042 09/11/21 1736 09/11/21 1223 09/11/21 0908 09/11/21 0704 09/11/21 0645 09/10/21 2102 09/10/21 1752 09/10/21 1322 GLUCOSE mg/dL 80 -- -- -- -- -- -- -- -- -- POC GLUCOSE MONITOR mg/dL -- 146 73 78 63* 76 64* 71 75 84 Interval Review of Systems Twelve point ROS reviewed and negative except as noted in HPI. All other systems negative. Vitals & Exam Temp: [36.8 ??C (98.2 ??F)] 36.8 ??C (98.2 ??F) Pulse: [75] 75 BP: (120)/(82) 120/82 Resp: [16] 16 SpO2: [99 %] 99 % No intake/output data recorded. Physical Exam Gen : in distress due to pain, alert, cooperative HENT : atraumatic, moist mucus membranes Eyes : conjunctiva anicteric, no proptosis Pulm : non-labored, on room air Extr : no cyanosis/edema Skin : turgor normal, no rashes Neuro : alert, speech fluent Data Medications, labs, imaging, and diagnostics independently reviewed in Epic and commented on below. Lab Results Component Value Date TSH 0.84 06/09/2021 FREET4 1.22 06/09/2021 Lab Results Component Value Date CHOL 284 (H) 09/09/2021 TRIG See Comment 09/09/2021 HDL 43 09/09/2021 LDLCALC See Comment 09/09/2021 No results found for: CPEPTIDE, LKE90VZ, IA2AB Lab Results Component Value Date HGBA1C 5.6 09/09/2021 Assessment & Plan # Type 2 diabetes, on insulin pump (Omnipod DASH), complicated by neuropathy - most recent HgbA1c is 5.6% - home regimen: Novolog via Omnipod DASH, Farxiga 10 mg daily Pump settings: Basal rate: 12 AM: 1.0, 12 PM: 1.2 (TDB: 26.4 units) ICR:1:8 Insulin Sensitivity: 25 Active Insulin Time: 4 Target glucose: 100 - 150 ?? Recommendations: - continue insulin pump with current settings >> adjusted to a lower basal rate (Basal 3 = 0.8 units/h >> 19.2 units total) - okay to continue Farxiga - please provide patient with a log so she can document bolus administration - POC glucoses TID AC + QHS - carb consistent diet - no juice or regular soda - in case pump is discontinued or malfunctioning, start lispro 4 units Q4h and let our team know (road traffic controller # [phone]) ?? Discharge recommendations: - insulin pump on home settings - please send a prescription for glucagon rescue kit e.g. Basqimi or Gvoke # Mixed hyperlipidemia - on atorvastatin 20 mg and fenofibrate 160 mg ?? # Essential hypertension - on lisinopril 10 mg daily ?? # Obesity, BMI 36.3 - complicated her care, predisposing her to hyperglycemia and increasing her insulin requirements - she was unable to tolerate GLP-1 RA (Ozempic), consider lower dose or alternate medication as outpatient ?? ## Discharge Planning - f/u with her Barometers Calibrator - Dr. Kurt Grajeda MD Clinical Fellow Endocrinology, Metabolism, & Lipid Research [phone] Cosigned by Henok Fleming Jr., MD at 09/12/2021 2:58 PM CDT Associated attestation - Henok Fleming Jr., MD - 09/12/2021 2:58 PM CDT I have seen and examined the patient on 09/12/21. I agree with the findings and plan of care as documented in the resident's/fellow's note. * Plan of Care - Brandyn Noble RN - 09/11/2021 11:14 PM CDT Goals: Clinical Goals for the Shift: Monitor VS, admin meds Summary: Problem: Lack of Knowledge: Goal: Ability to state ways to decrease the risk of falls will improve Outcome: Progressing Problem: Safety: Goal: Will remain free from falls Outcome: Progressing Goal: Will remain free from injury from falls Outcome: Progressing Goal: Will remain free from falls and injury in home environment Outcome: Progressing Problem: Activity: Goal: Risk for activity intolerance will decrease Outcome: Progressing Problem: Lack of Knowledge: Goal: Knowledge of diagnostic tests will improve Outcome: Progressing Goal: Knowledge of disease or condition will improve Outcome: Progressing Goal: Knowledge of safety precautions will improve Outcome: Progressing Problem: Health Behavior: Goal: Ability to state signs and symptoms to report to health care provider will improve Outcome: Progressing Problem: Lack of Knowledge: Goal: Ability to describe self-care measures that may prevent or decrease complications will improve Outcome: Progressing Goal: Knowledge of disease or condition will improve Outcome: Progressing Goal: Knowledge of the prescribed therapeutic regimen will improve Outcome: Progressing Goal: Knowledge of prevention and discharge planning will improve Outcome: Progressing Problem: Coping: Goal: Ability to adjust to condition or change in health will improve Outcome: Progressing Problem: Fluid Volume: Goal: Ability to maintain a balanced intake and output will improve Outcome: Progressing Problem: Health Behavior: Goal: Ability to identify and alter actions that are detrimental to health will improve Outcome: Progressing Goal: Ability to identify and utilize available resources and services will improve Outcome: Progressing Goal: Ability to manage health-related needs will improve Outcome: Progressing Problem: Nutritional: Goal: Maintenance of adequate nutrition will improve Outcome: Progressing Goal: Progress toward achieving an optimal weight will improve Outcome: Progressing Problem: Physical Regulation: Goal: Complications related to the disease process, condition or treatment will be avoided or minimized Outcome: Progressing Goal: Diagnostic test results will improve Outcome: Progressing Problem: Skin Integrity: Goal: Risk for impaired skin integrity will decrease Outcome: Progressing Problem: Lack of Knowledge: Goal: Ability to develop a pain control plan will improve Outcome: Progressing Goal: Ability to identify pain intensity on a pain scale and rate it consistently will improve Outcome: Progressing Goal: Ability to notify healthcare provider of pain before it becomes unmanageable or unbearable will improve Outcome: Progressing Problem: Medication: Goal: Satisfaction with pain management regimen will improve Outcome: Progressing Problem: Sensory: Goal: Ability to identify factors that increase the pain will improve Outcome: Progressing Goal: Pain level will decrease Outcome: Progressing Problem: Lack of Knowledge: Goal: Verbalization of understanding the information provided will improve Outcome: Progressing Problem: Fluid Volume: Goal: Maintenance of adequate hydration will improve Outcome: Progressing Goal: Will show no signs and symptoms of electrolyte imbalance Outcome: Progressing Problem: Nutritional: Goal: Maintenance of adequate nutrition will improve Outcome: Progressing Problem: Sensory: Goal: Occurrences of nausea will decrease Outcome: Progressing Problem: Activity: Goal: Ability to tolerate increased activity will improve Outcome: Progressing Problem: Cardiac: Goal: Hemodynamic stability will improve Outcome: Progressing Goal: Complications related to the disease process, condition or treatment will be avoided or minimized Outcome: Progressing Goal: Cerebral tissue perfusion will improve Outcome: Progressing Problem: Lack of Knowledge: Goal: Knowledge of disease or condition will improve Outcome: Progressing Goal: Knowledge of the prescribed therapeutic regimen will improve Outcome: Progressing Problem: Coping: Goal: Ability to identify and develop effective coping behavior will improve Outcome: Progressing Problem: Health Behavior: Goal: Identification of resources available to assist in meeting health care needs will improve Outcome: Progressing Problem: Nutritional: Goal: Ability to identify appropriate dietary choices will improve Outcome: Progressing * Plan of Josi - Olivia Nguyen RN - 09/11/2021 4:54 PM CDT Goals: Clinical Goals for the Shift: Monitor VS, admin meds Summary: VSS. Medications administered (see MAR). Problem: Lack of Knowledge: Goal: Ability to state ways to decrease the risk of falls will improve Outcome: Progressing Problem: Safety: Goal: Will remain free from falls Outcome: Progressing Goal: Will remain free from injury from falls Outcome: Progressing Goal: Will remain free from falls and injury in home environment Outcome: Progressing Problem: Activity: Goal: Risk for activity intolerance will decrease Outcome: Progressing Problem: Lack of Knowledge: Goal: Knowledge of diagnostic tests will improve Outcome: Progressing Goal: Knowledge of disease or condition will improve Outcome: Progressing Goal: Knowledge of safety precautions will improve Outcome: Progressing Problem: Health Behavior: Goal: Ability to state signs and symptoms to report to health care provider will improve Outcome: Progressing Problem: Lack of Knowledge: Goal: Ability to describe self-care measures that may prevent or decrease complications will improve Outcome: Progressing Goal: Knowledge of disease or condition will improve Outcome: Progressing Goal: Knowledge of the prescribed therapeutic regimen will improve Outcome: Progressing Goal: Knowledge of prevention and discharge planning will improve Outcome: Progressing Problem: Coping: Goal: Ability to adjust to condition or change in health will improve Outcome: Progressing Problem: Fluid Volume: Goal: Ability to maintain a balanced intake and output will improve Outcome: Progressing Problem: Health Behavior: Goal: Ability to identify and alter actions that are detrimental to health will improve Outcome: Progressing Goal: Ability to identify and utilize available resources and services will improve Outcome: Progressing Goal: Ability to manage health-related needs will improve Outcome: Progressing Problem: Nutritional: Goal: Maintenance of adequate nutrition will improve Outcome: Progressing Goal: Progress toward achieving an optimal weight will improve Outcome: Progressing Problem: Physical Regulation: Goal: Complications related to the disease process, condition or treatment will be avoided or minimized Outcome: Progressing Goal: Diagnostic test results will improve Outcome: Progressing Problem: Skin Integrity: Goal: Risk for impaired skin integrity will decrease Outcome: Progressing Problem: Lack of Knowledge: Goal: Ability to develop a pain control plan will improve Outcome: Progressing Goal: Ability to identify pain intensity on a pain scale and rate it consistently will improve Outcome: Progressing Goal: Ability to notify healthcare provider of pain before it becomes unmanageable or unbearable will improve Outcome: Progressing Problem: Medication: Goal: Satisfaction with pain management regimen will improve Outcome: Progressing Problem: Sensory: Goal: Ability to identify factors that increase the pain will improve Outcome: Progressing Goal: Pain level will decrease Outcome: Progressing Problem: Lack of Knowledge: Goal: Verbalization of understanding the information provided will improve Outcome: Progressing Problem: Fluid Volume: Goal: Maintenance of adequate hydration will improve Outcome: Progressing Goal: Will show no signs and symptoms of electrolyte imbalance Outcome: Progressing Problem: Nutritional: Goal: Maintenance of adequate nutrition will improve Outcome: Progressing Problem: Sensory: Goal: Occurrences of nausea will decrease Outcome: Progressing Problem: Activity: Goal: Ability to tolerate increased activity will improve Outcome: Progressing Problem: Cardiac: Goal: Hemodynamic stability will improve Outcome: Progressing Goal: Complications related to the disease process, condition or treatment will be avoided or minimized Outcome: Progressing Goal: Cerebral tissue perfusion will improve Outcome: Progressing Problem: Lack of Knowledge: Goal: Knowledge of disease or condition will improve Outcome: Progressing Goal: Knowledge of the prescribed therapeutic regimen will improve Outcome: Progressing Problem: Coping: Goal: Ability to identify and develop effective coping behavior will improve Outcome: Progressing Problem: Health Behavior: Goal: Identification of resources available to assist in meeting health care needs will improve Outcome: Progressing Problem: Nutritional: Goal: Ability to identify appropriate dietary choices will improve Outcome: Progressing * Significant Event - Min, Lin Del Valle MD - 09/11/2021 2:09 PM CDT I re-evalauted patient this afternoon. There was concern from patient's friends that she had expressed suicidal ideation in recent days. I spoke to patient she stated she has had passive SI in the past and has a history of depression. She states she has no active suicidal thoughts and no plans to harm her self. She wants to get better and seek the appropriate care for her headaches. She does endorse severe pain from headache which is why she presented here. She is actively engaged with her psychiatrist and therapist. I do not feel there is concern for elevated risk of self harm. We additionally spoke about her plan of care. She is agreeable to remain inpt to see PT tomorrow. She lives alone and does not have much home support, given her instability and pain it is important to be evaluated by therapy. Her friends are concerned about patient caring for self at this time. Sheis quite concerned about obtaining a blood patch tomorrow at [facility] per her outpatient team. We discussed that this blood patch could be rescheduled. Additionally we can have her evaluated byPT and possibly our anesthesia vs neurology team tomorrow if her headache pain is not improving,. Could see if blood patch is indicated / can be done here. Patient is agreeable and understanding and in stable condition. Lin Lerma MD [facility] [phone] * Consults, Subsequent - Brianna Grajeda MD - 09/11/2021 8:54 AM CDT Endocrinology & Diabetes Progress Note Patient: Alannah Ruano, 41 y.o. female (: 1980) Room: [place] [id number] ( ) LOS: 2 Alannah Ruano is a 41 y.o. female with history of T2DM on insulin pump, complicated by neuropathy and gastroparesis, obesity s/p gastric sleeve in 08/2020, hyperlipidemia, who presented with 2 days of headache, nausea and vomiting and an episode of syncope after a lumbar puncture. She underwent LP on 09/07/21 and has since been having intractable generalized throbbing positional headache. Endocrinology consulted for insulin pump management. Interval Events & Subjective Patient reports persistent severe headache, her appetite is poor due to pain. Reports mild nausea, no vomiting. She adjusted her pump settings earlier today to a lower basal rate (Basal 3 = 0.8 units/h >> 19.2 units total). BG reviewed - very tightly controlled, in the range of 64 - 85. Pump interrogated: TDD yesterday 26.4 units (100% basal). Diet: Adult Diet Restricted; Consistent Carbohydrate Recent Labs Lab Units 09/11/21 0704 09/11/21 0645 09/10/21 2102 09/10/21 1752 09/10/21 1322 09/10/21 0901 09/10/21 0609 09/09/21 0902 09/09/21 0634 GLUCOSE mg/dL -- -- -- -- -- -- 81 99 -- POC GLUCOSE MONITOR mg/dL 76 64* 71 75 84 85 -- -- 109 Interval Review of Systems Twelve point ROS reviewed and negative except as noted in HPI. All other systems negative. Vitals & Exam Temp: [36.6 ??C (97.88 ??F)-36.7 ??C (98.06 ??F)] 36.6 ??C (97.88 ??F) Pulse: [64-68] 64 BP: (96-116)/(57-67) 116/67 Resp: [18-19] 19 SpO2: [96 %-99 %] 99 % No intake/output data recorded. Physical Exam Gen : in distress due to pain, alert, cooperative HENT : atraumatic, moist mucus membranes Eyes : conjunctiva anicteric, no proptosis Pulm : non-labored, on room air Extr : no cyanosis/edema Skin : turgor normal, no rashes Neuro : alert, speech fluent Data Medications, labs, imaging, and diagnostics independently reviewed in Epic and commented on below. Lab Results Component Value Date TSH 0.84 06/09/2021 FREET4 1.22 06/09/2021 Lab Results Component Value Date CHOL 284 (H) 09/09/2021 TRIG See Comment 09/09/2021 HDL 43 09/09/2021 LDLCALC See Comment 09/09/2021 No results found for: CPEPTIDE, WUV16IV, IA2AB Lab Results Component Value Date HGBA1C 5.6 09/09/2021 Assessment & Plan # Type 2 diabetes, on insulin pump (Omnipod DASH), complicated by neuropathy - most recent HgbA1c is 5.6% - home regimen: Novolog via Omnipod DASH, Farxiga 10 mg daily Pump settings: Basal rate: 12 AM: 1.0, 12 PM: 1.2 (TDB: 26.4 units) ICR:1:8 Insulin Sensitivity: 25 Active Insulin Time: 4 Target glucose: 100 - 150 ?? Recommendations: - continue insulin pump, settings adjusted to a lower basal rate (Basal 3 = 0.8 units/h >> 19.2 units total) - okay to continue Farxiga - please provide patient with a log so she can document bolus administration - POC glucoses TID AC + QHS - carb consistent diet - no juice or regular soda - in case pump is discontinued or malfunctioning, start lispro 4 units Q4h and let our team know (road traffic controller # [phone]) ?? Discharge recommendations: - insulin pump on home settings - please send a prescription for glucagon rescue kit e.g Basqimi or Gvoke # Mixed hyperlipidemia - on Atorvastatin 20 mg and fenofibrate 160 mg ?? # Essential Hypertension - on Lisinopril 10 mg daily ?? # Obesity, BMI 36.3 - complicated her care, predisposing her to hyperglycemia and increasing her insulin requirements - she was unable to tolerate GLP-1 RA (Ozempic), consider lower dose or alternate medication as outpatient ?? ## Discharge Planning - f/u with her Barometers Calibrator - Dr. Kurt Grajeda MD Clinical Fellow Endocrinology, Metabolism, & Lipid Research [phone] Cosigned by Jenny Kan MD at 09/11/2021 1:43 PM CDT Associated attestation - Jenny Kan MD - 09/11/2021 1:43 PM CDT I have seen and examined the patient on 09/11/21. I agree with the findings and plan of care as documented in the resident's/fellow's note.. * Assessment & Plan Note - Lydia Alvarado MD - 09/11/2021 8:23 AM CDT Associated Problem(s): Physical deconditioning Patient's friends concerned about ability to care for herself -PT ordered, but unable to participate d/t BATES * Assessment & Plan Note - Lydia Alvarado MD - 09/10/2021 11:35 PM CDT Associated Problem(s): Recurrent boils -Continue daily doxycycline. * Assessment & Plan Note - Lydia Alvarado MD - 09/10/2021 11:35 PM CDT Associated Problem(s): Trigeminal neuralgia -Continue home dose of lamotrigine. * Assessment & Plan Note - Lydia Alvarado MD - 09/10/2021 11:34 PM CDT Associated Problem(s): Migraine Patient has hx of migraines and is on prophylactic topamax, propranolol, lamictal. Also is on PRN maxalt. - will resume her prophylactic regimen and treatment of headache as above * Assessment & Plan Note - Lydia Alvarado MD - 09/10/2021 11:34 PM CDT Associated Problem(s): Lumbar puncture headache Developed severe generalized headache radiating all the [...] blood patch. - continue analgesics and antiemetics * Assessment & Plan Note - Lydia Alvarado MD - 09/10/2021 11:34 PM CDT Associated Problem(s): Macular edema, diabetic (HCC) Patient has bilateral macular edema and thought to be 2/2 her underlying diabetes. She follows withDr Seth - continue Ketorolac ocular drop BID as reported by patient. * Assessment & Plan Note - Lydia Alvarado MD - 09/10/2021 11:34 PM CDT Associated Problem(s): Mixed hyperlipidemia Continue home lipitor. * Assessment & Plan Note - Lydia Alvarado MD - 09/10/2021 11:34 PM CDT Associated Problem(s): Hypertension associated with diabetes (HCC) BP stable. -Continue home lisinopril. * Assessment & Plan Note - Lydia Alvarado MD - 09/10/2021 11:34 PM CDT Associated Problem(s): BMI 38.0-38.9,adult Patient is s/p gastric sleeve and has been intolerant of GLP 1. Currently on fraxiga, continue * Assessment & Plan Note - Lydia Alvarado MD - 09/10/2021 11:34 PM CDT Associated Problem(s): Type 2 diabetes mellitus with hyperglycemia, with long- term current use of insulin (HCC) Patient has well controlled T2DM on insulin pump. Follows with Kurt Saini. Her pump setting at home is: Basal 12a 1.0, 12p 1.2 ICR 1:8, SF 25, T 100-150 - will continue insulin pump. Endocrine managing. - continue Farxiga * Plan of Care - Marcia Bal RN - 09/10/2021 7:30 PM CDT Problem: Lack of Knowledge: Goal: Ability to state ways to decrease the risk of falls will improve Outcome: Progressing Problem: Safety: Goal: Will remain free from falls Outcome: Progressing Goal: Will remain free from injury from falls Outcome: Progressing Goal: Will remain free from falls and injury in home environment Outcome: Progressing Problem: Activity: Goal: Risk for activity intolerance will decrease Outcome: Progressing Problem: Lack of Knowledge: Goal: Knowledge of diagnostic tests will improve Outcome: Progressing Goal: Knowledge of disease or condition will improve Outcome: Progressing Goal: Knowledge of safety precautions will improve Outcome: Progressing Problem: Health Behavior: Goal: Ability to state signs and symptoms to report to health care provider will improve Outcome: Progressing Problem: Lack of Knowledge: Goal: Ability to describe self-care measures that may prevent or decrease complications will improve Outcome: Progressing Goal: Knowledge of disease or condition will improve Outcome: Progressing Goal: Knowledge of the prescribed therapeutic regimen will improve Outcome: Progressing Goal: Knowledge of prevention and discharge planning will improve Outcome: Progressing Problem: Coping: Goal: Ability to adjust to condition or change in health will improve Outcome: Progressing Problem: Fluid Volume: Goal: Ability to maintain a balanced intake and output will improve Outcome: Progressing Problem: Health Behavior: Goal: Ability to identify and alter actions that are detrimental to health will improve Outcome: Progressing Goal: Ability to identify and utilize available resources and services will improve Outcome: Progressing Goal: Ability to manage health-related needs will improve Outcome: Progressing Problem: Nutritional: Goal: Maintenance of adequate nutrition will improve Outcome: Progressing Goal: Progress toward achieving an optimal weight will improve Outcome: Progressing Problem: Physical Regulation: Goal: Complications related to the disease process, condition or treatment will be avoided or minimized Outcome: Progressing Goal: Diagnostic test results will improve Outcome: Progressing Problem: Skin Integrity: Goal: Risk for impaired skin integrity will decrease Outcome: Progressing Problem: Lack of Knowledge: Goal: Ability to develop a pain control plan will improve Outcome: Progressing Goal: Ability to identify pain intensity on a pain scale and rate it consistently will improve Outcome: Progressing Goal: Ability to notify healthcare provider of pain before it becomes unmanageable or unbearable will improve Outcome: Progressing Problem: Medication: Goal: Satisfaction with pain management regimen will improve Outcome: Progressing Problem: Sensory: Goal: Ability to identify factors that increase the pain will improve Outcome: Progressing Goal: Pain level will decrease Outcome: Progressing Problem: Lack of Knowledge: Goal: Verbalization of understanding the information provided will improve Outcome: Progressing Problem: Fluid Volume: Goal: Maintenance of adequate hydration will improve Outcome: Progressing Goal: Will show no signs and symptoms of electrolyte imbalance Outcome: Progressing Problem: Nutritional: Goal: Maintenance of adequate nutrition will improve Outcome: Progressing Problem: Sensory: Goal: Occurrences of nausea will decrease Outcome: Progressing Problem: Activity: Goal: Ability to tolerate increased activity will improve Outcome: Progressing Problem: Cardiac: Goal: Hemodynamic stability will improve Outcome: Progressing Goal: Complications related to the disease process, condition or treatment will be avoided or minimized Outcome: Progressing Goal: Cerebral tissue perfusion will improve Outcome: Progressing Problem: Lack of Knowledge: Goal: Knowledge of disease or condition will improve Outcome: Progressing Goal: Knowledge of the prescribed therapeutic regimen will improve Outcome: Progressing Problem: Coping: Goal: Ability to identify and develop effective coping behavior will improve Outcome: Progressing Problem: Health Behavior: Goal: Identification of resources available to assist in meeting health care needs will improve Outcome: Progressing Problem: Nutritional: Goal: Ability to identify appropriate dietary choices will improve Outcome: Progressing Goals: Clinical Goals for the Shift: Monitor VS and BG. Alleviate pain. Administer medications as precribed. Promote safety and comfort Summary: Pt's vital signs were stable. Complained of pain from the head going down through her feet minimally relieved by pain medications. Had an episode of low blood sugar in the infusion pump. [facility] showed 64 given juice and increased to 76. Basal rate was not decreased after. 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 * Subjective & Objective - Alley Greco NP - 09/10/2021 11:59 AM CDT Daily Progress Note Division of Hospital Medicine Name: Alannah Ruano Today: September 10, 2021 : 1980 Age: 41 y.o. female Admit: 09/09/2021 Bed: [id number] Subjective Chief complaint: headache, nausea Interval History: Patient reports continued headache and nausea. States she is able to tolerate liquids. Says pain would be improved with oxycodone and thinks she could tolerate discharge if she had that at home. Understands this would be a short term prescription until she is able to follow up with outpatient providers. Later attending physician spoke with patients friends who came to visit. Concern for SI. Patient denies says she has been taking her medications as prescribed. Friends also have concerns about patients mobility and ability to care for herself at home. PT ordered for evaluation. Objective Medications: Scheduled: atorvastatin, 20 mg, oral, Nightly azelastine, 2 spray, each nostril, BID buPROPion, 100 mg, oral, BID carBAMazepine, 100 mg, oral, TID cetirizine, 10 mg, oral, Daily dapagliflozin, 10 mg, oral, Daily doxycycline, 100 mg, oral, Daily enoxaparin, 40 mg, subcutaneous, Daily-2100 insulin lispro, 8 Units, subcutaneous, TID with meals ketorolac, 1 drop, each eye, BID lamoTRIgine, 100 mg, oral, Daily lisinopriL, 10 mg, oral, Daily montelukast, 10 mg, oral, Nightly pantoprazole DR, 40 mg, oral, BID propranoloL, 20 mg, oral, BID topiramate, 200 mg, oral, BID ziprasidone, 20 mg, oral, BID with meals (bkfst, dinner) Infusions: INSULIN PUMP - insulin aspart (NovoLOG), 0-25 Units Lactated Ringer's, 75 mL/hr, Last Rate: 75 mL/hr (09/09/21 7725) PRN: acetaminophen albuterol dextrose OR dextrose diazePAM glucagon hydrOXYzine ondansetron oxyCODONE Vitals: 24hr Min/Max: Temp Min: 36.6 ??C (97.8 ??F) Max: 36.7 ??C (98.06 ??F) Pulse Min: 73 Max: 88 BP Min: 117/68 Max: 170/92 Resp Min: 16 Max: 20 SpO2 Min: 94 % Max: 100 % Most Recent: Vitals: 09/10/21 0815 BP: 141/83 Pulse: 82 Resp: 17 Temp: 36.7 ??C (98.06 ??F) SpO2: 98% No intake or output data in the 24 hours ending 09/10/21 1159 Physical Exam Vitals and nursing note reviewed. Constitutional: Appearance: Normal appearance. HENT: Head: Normocephalic and atraumatic. Eyes: Extraocular Movements: Extraocular movements intact. Conjunctiva/sclera: Conjunctivae normal. Cardiovascular: Rate and Rhythm: Normal rate and regular rhythm. Pulses: Normal pulses. Heart sounds: Normal heart sounds. Pulmonary: Effort: Pulmonary effort is normal. Breath sounds: Normal breath sounds. Abdominal: General: Bowel sounds are normal. Palpations: Abdomen is soft. Tenderness: There is no abdominal tenderness. There is no guarding. Musculoskeletal: General: No swelling or tenderness. Normal range of motion. Cervical back: Normal range of motion and neck supple. Skin: General: Skin is warm and dry. Neurological: General: No focal deficit present. Mental Status: She is alert and oriented to person, place, and time. Psychiatric: Mood and Affect: Mood normal. Behavior: Behavior normal. Thought Content: Thought content normal. Judgment: Judgment normal. Lab/Diagnostic Review: Recent Results (from the past 36 hour(s)) POCT glucose Collection Time: 09/09/21 6:34 AM Result Value Ref Range Glucose, POC 109 70 - 199 mg/dL CBC with auto differential Collection Time: 09/09/21 9:02 AM Result Value Ref Range WBC 12.8 (H) 3.8 - 9.9 K/cumm Hgb 15.8 (H) 11.9 - 15.5 g/dL Hct 46.4 (H) 35.6 - 45.5 % Plt 244 150 - 400 K/cumm MPV 9.8 9.1 - 12.3 fL RBC 5.33 (H) 3.90 - 5.20 M/cumm MCV 87.1 81.3 - 96.4 fL MCH 29.6 27.1 - 33.3 pg MCHC 34.1 32.3 - 35.7 g/dL RDW CV 12.7 11.1 - 14.9 % RDW SD 39.7 35.7 - 48.1 fL NRBC abs 0.00 0.00 - 0.01 K/cumm Basic metabolic panel Collection Time: 09/09/21 9:02 AM Result Value Ref Range Sodium 136 135 - 145 mmol/L Potassium, pl See Comment 3.3 - 4.9 mmol/L Chloride 100 97 - 110 mmol/L CO2 28 22 - 32 mmol/L Anion gap 8 2 - 15 mmol/L BUN 10 8 - 25 mg/dL Creatinine 0.62 0.60 - 1.10 mg/dL Glucose 99 70 - 199 mg/dL Calcium 9.7 8.5 - 10.3 mg/dL Troponin I high-sensitivity Collection Time: 09/09/21 9:02 AM Result Value Ref Range Trop I hs <4 <=17 ng/L Differential, auto Collection Time: 09/09/21 9:02 AM Result Value Ref Range Neutrophil abs 10.1 (H) 1.7 - 6.5 K/cumm Imm gran abs 0.1 0.0 - 0.1 K/cumm Lymphocyte abs 1.8 0.8 - 3.3 K/cumm Monocyte abs 0.8 0.2 - 0.8 K/cumm Eosinophil abs 0.1 0.0 - 0.5 K/cumm Basophil abs 0.1 0.0 - 0.1 K/cumm Neutrophil pct 78.7 % Imm gran pct 0.5 % Lymphocyte pct 13.8 % Monocyte pct 6.0 % Eosinophil pct 0.4 % Basophil pct 0.6 % eGFR Collection Time: 09/09/21 9:02 AM Result Value Ref Range eGFR >90 90 - 130 mL/min/1.73 m2 Hemoglobin A1c Collection Time: 09/09/21 9:02 AM Result Value Ref Range Hgb A1C 5.6 4.0 - 5.6 % Estimated Average Glucose 114 mg/dL Lipid panel Collection Time: 09/09/21 9:02 AM Result Value Ref Range Cholesterol 284 (H) 30 - 199 mg/dL Triglycerides See Comment <=149 mg/dL HDL 43 >=40 mg/dL LDL, calculated See Comment <=129 Non-HDL Cholesterol 241 mg/dL Chol/HDL ratio 7 COVID-19 Coronavirus RNA Nasopharyngeal Collection Time: 09/09/21 4:03 PM Specimen: Nasopharyngeal Result Value Ref Range COVID-19 RNA Negative Negative Basic metabolic panel Collection Time: 09/10/21 6:09 AM Result Value Ref Range Sodium 139 135 - 145 mmol/L Potassium, pl 3.6 3.3 - 4.9 mmol/L Chloride 102 97 - 110 mmol/L CO2 26 22 - 32 mmol/L Anion gap 11 2 - 15 mmol/L BUN 12 8 - 25 mg/dL Creatinine 0.66 0.60 - 1.10 mg/dL Glucose 81 70 - 199 mg/dL Calcium 9.8 8.5 - 10.3 mg/dL CBC with auto differential Collection Time: 09/10/21 6:09 AM Result Value Ref Range WBC 9.3 3.8 - 9.9 K/cumm Hgb 15.2 11.9 - 15.5 g/dL Hct 44.2 35.6 - 45.5 % Plt 238 150 - 400 K/cumm MPV 9.0 (L) 9.1 - 12.3 fL RBC 5.04 3.90 - 5.20 M/cumm MCV 87.7 81.3 - 96.4 fL MCH 30.2 27.1 - 33.3 pg MCHC 34.4 32.3 - 35.7 g/dL RDW CV 12.7 11.1 - 14.9 % RDW SD 40.7 35.7 - 48.1 fL NRBC abs 0.00 0.00 - 0.01 K/cumm Differential, auto Collection Time: 09/10/21 6:09 AM Result Value Ref Range Neutrophil abs 5.7 1.7 - 6.5 K/cumm Imm gran abs 0.0 0.0 - 0.1 K/cumm Lymphocyte abs 2.6 0.8 - 3.3 K/cumm Monocyte abs 0.7 0.2 - 0.8 K/cumm Eosinophil abs 0.2 0.0 - 0.5 K/cumm Basophil abs 0.1 0.0 - 0.1 K/cumm Neutrophil pct 61.3 % Imm gran pct 0.3 % Lymphocyte pct 27.9 % Monocyte pct 7.7 % Eosinophil pct 1.8 % Basophil pct 1.0 % eGFR Collection Time: 09/10/21 6:09 AM Result Value Ref Range eGFR >90 90 - 130 mL/min/1.73 m2 hCG, urine, qualitative Collection Time: 09/10/21 6:38 AM Result Value Ref Range HCG, ur Negative Negative POCT glucose Collection Time: 09/10/21 9:01 AM Result Value Ref Range Glucose, POC 85 70 - 199 mg/dL I have reviewed the laboratory results. Imaging Results: CT Head WO Contrast Narrative: EXAMINATION: CT head without contrast HISTORY: Mental status changes. Evaluate for subarachnoid hemorrhage TECHNIQUE: Noncontrast CT of the brain was performed with images acquired from skull base to vertex. COMPARISON: MRI 07/03/2021. FINDINGS: Topogram demonstrates no lytic lesions or fractures. There is no acute intracranial hemorrhage. Ventricles are of normal size and morphology. No mass effect or midline shift is present. The alva-white matter differentiation is normal. The visualized portions of the orbits are normal. The visualized portions of the mastoids are normal. The visualized portions of the paranasal sinuses are normal. No fractures are identified. Impression: No acute intracranial abnormality. No evidence for subarachnoid hemorrhage. Electronically signed by: Enrique Boyle M.D. I have independently reviewed and interpreted labs. * Plan of Care - Keila Adames RN - 09/10/2021 12:46 AM CDT Problem: Lack of Knowledge: Goal: Ability to state ways to decrease the risk of falls will improve 09/10/202145 by Keila Adames RN Outcome: Progressing 09/10/202144 by Keila Adames RN Outcome: Progressing Problem: Safety: Goal: Will remain free from falls 09/10/2021 004 by Keila Adames RN Outcome: Progressing 09/10/202144 by Keila Adames RN Outcome: Progressing Goal: Will remain free from injury from falls 09/10/2021 0046 by Keila Adames RN Outcome: Progressing 09/10/202144 by Keila dAames RN Outcome: Progressing Goal: Will remain free from falls and injury in home environment 09/10/2021 004 by Keila Adames RN Outcome: Progressing 09/10/202144 by Keila Adames RN Outcome: Progressing Problem: Activity: Goal: Risk for activity intolerance will decrease Outcome: Progressing Problem: Lack of Knowledge: Goal: Knowledge of diagnostic tests will improve Outcome: Progressing Goal: Knowledge of disease or condition will improve Outcome: Progressing Goal: Knowledge of safety precautions will improve Outcome: Progressing Problem: Health Behavior: Goal: Ability to state signs and symptoms to report to health care provider will improve Outcome: Progressing Goals: Clinical Goals for the Shift: [place] to unit, VSS Summary: Patient oriented to unit, VSS. Endorses head and upper back pain. Patient did not want oral meds right away as her appetite over the last 2-3 days has been decreased and stated even tylenol given in the ED was Rough on the stomach and said the pain was tolerable with rest and positioning. Patient did not want to take any other oral meds this even as well as she did not think her stomach could handle it tonight and would try taking everything in the morning, MD aware. Admission documentation completed and patient resting comfortably in bed. Will continue to monitor. * Assessment & Plan Note - Alley Greco NP - 09/10/2021 12:39 AM CDT Associated Problem(s): Recurrent boils Continue daily doxycycline. * Assessment & Plan Note - Alley Greco NP - 09/10/2021 12:38 AM CDT Associated Problem(s): BMI 38.0-38.9,adult Patient is s/p gastric sleeve and has been intolerant of GLP 1. Currently on fraxiga, continue * Assessment & Plan Note - Alley Greco NP - 09/10/2021 12:38 AM CDT Associated Problem(s): Trigeminal neuralgia Continue home dose of lamotrigine. * Assessment & Plan Note - Alley Greco NP - 09/10/2021 12:37 AM CDT Associated Problem(s): Mixed hyperlipidemia Continue home lipitor. * Assessment & Plan Note - Alley Greco NP - 09/10/2021 12:36 AM CDT Associated Problem(s): Hypertension associated with diabetes (HCC) Continue home lisinopril. * Assessment & Plan Note - Travon Shah MD - 09/10/2021 12:34 AM CDT Associated Problem(s): Macular edema, diabetic (HCC) Patient has bilateral macular edema and thought to be 2/2 her underlying diabetes. She follows withDr Seth - continue Ketorolac ocular drop BID as reported by patient. * Assessment & Plan Note - Alley Greco NP - 09/10/2021 12:32 AM CDT Associated Problem(s): Migraine Patient has hx of migraine and is on prophylactic topamax, propranolol, lamictal. Also is on PRN maxalt (trying to wean of), nurtec (should be her first line). Patient concerned that her current symptoms are not consistent with her usual migraine headache. - will resume her prophylactic regimen and treatment of headache as above * Assessment & Plan Note - Alley Greco NP - 09/10/2021 12:26 AM CDT Associated Problem(s): Type 2 diabetes mellitus with hyperglycemia, with long- term current use of insulin (HCC) Patient has well controlled T2DM on insulin pump. Follows with Kurt Saini. Her pump setting is Basal 12a 1.0, 12p 1.2 IC 8 SF 25 T 100 - will continue insulin pump. Endo consulted * Assessment & Plan Note - Alley Greco NP - 09/10/2021 12:02 AM CDT Associated Problem(s): Lumbar puncture headache Developed severe generalized headache radiating all the [...] originally planning to follow-up with anesthesia at [facility] were her procedure was performed in order to receive an epidural blood patch. Encouraged patient to follow up out patient as planned, could consider neuro radiology consult if headache does not improve * ED Procedure Note - Romie Wilder MD PhD - 09/09/2021 11:20 AM CDT Associated Order(s): Peripheral line insertion Procedure Peripheral line insertion Date/Time: 09/09/2021 11:20 AM Performed by: Romie Wilder MD PhD Authorized by: Judy Morgan MD Indications: Emergency venous access and nursing unable to obtain Pre-procedure details: Hand hygiene: Hand hygiene performed prior to insertion Skin preparation: Alcohol Anesthesia (see MAR for exact dosages): Anesthesia method: None Procedure details: Catheter size: 20 G Laterality: Right Location: Antecubital fossa Number of attempts: 1 Ultrasound guidance was used to confirm vessel patency and needle position: Yes Successful placement: yes Post-procedure details: Post-procedure: Dressing applied Patient tolerance of procedure: Tolerated well, no immediate complications Romie Wilder MD PhD Resident 09/09/21 1121 Cosigned by Dax Pickard MD at 09/14/2021 3:56 PM CDT Associated attestation - Dax Pickard MD - 09/14/2021 3:56 PM CDT I was present for the entire procedure * ED Procedure Note - Dax Pickard MD - 09/09/2021 8:51 AM CDTAssociated Order(s): ECG 12 lead Procedure ECG 12 lead Date/Time: 09/09/2021 8:51 AM Performed by: Judy Morgan MD Authorized by: Romie Wilder MD PhD Quality: Tracing quality: Limited by artifact Rate: ECG rate: 92 ECG rate assessment: normal Rhythm: Rhythm: sinus rhythm Ectopy: Ectopy: none QRS: QRS axis: Normal Q waves: Q waves: III and aVF Previous ECG: Previous ECG: Unavailable Interpretation: Interpretation: non-specific Judy Morgan MD 09/11/21 1426 I have personally reviewed the tracing and the resident's interpretation. I agree with the findings. Dax Pickard MD 09/25/21 0831 documented in this encounter Plan of Treatment Not on file documented as of this encounter Procedures Procedure Name Priority Date/Time Associated Diagnosis Comments POCT GLUCOSE DEVICE Routine 09/12/2021 1 2:02 PM CDT POCT GLUCOSE DEVICE Routine 09/12/2021 9 :19 AM CDT POCT GLUCOSE DEVICE Routine 09/12/2021 8 :06 AM CDT EGFR Routine 09/12/2021 5:14 AM CDT DIFFERENTIAL AUTO Routine 09/12/2021 5:1 4 AM CDT CBC WITH AUTO DIFFERENTIAL Routine 09/12/2021 5:14 AM CDT BASIC METABOLIC PANEL Routine 09/12/2021 5:14 AM CDT POCT GLUCOSE DEVICE Routine 09/11/2021 8 :42 PM CDT POCT GLUCOSE DEVICE Routine 09/11/2021 5 :36 PM CDT POCT GLUCOSE DEVICE Routine 09/11/2021 1 2:23 PM CDT POCT GLUCOSE DEVICE Routine 09/11/2021 9 :08 AM CDT POCT GLUCOSE DEVICE Routine 09/11/2021 7 :04 AM CDT POCT GLUCOSE DEVICE Routine 09/11/2021 6 :45 AM CDT POCT GLUCOSE DEVICE Routine 09/10/2021 9 :02 PM CDT POCT GLUCOSE DEVICE Routine 09/10/2021 5 :52 PM CDT POCT GLUCOSE DEVICE Routine 09/10/2021 1 :22 PM CDT POCT GLUCOSE DEVICE Routine 09/10/2021 9 :01 AM CDT HCG, URINE, QUALITATIVE STAT 09/10/2021 6:38 AM CDT EGFR Routine 09/10/2021 6:09 AM CDT DIFFERENTIAL AUTO Routine 09/10/2021 6:0 9 AM CDT CBC WITH AUTO DIFFERENTIAL Routine 09/10/2021 6:09 AM CDT BASIC METABOLIC PANEL Routine 09/10/2021 6:09 AM CDT COVID-19 CORONAVIRUS RNA Routine 09/09/2021 4:03 PM CDT ED PERIPHERAL LINE INSERTION Routine 09/09/2021 11:[address] HEAD WO CONTRAST ED 09/09/2021 1 0:42 AM CDT TROPONIN I HIGH-SENSITIVITY Routine 09/09/2021 9:02 AM CDT EGFR STAT 09/09/2021 9:02 AM CDT DIFFERENTIAL AUTO STAT 09/09/2021 9:0 2 AM CDT CBC WITH AUTO DIFFERENTIAL STAT 09/09/2021 9:02 AM CDT HEMOGLOBIN A1C STAT 09/09/2021 9:02 AM CDT LIPID PANEL STAT 09/09/2021 9:02 AM CDT BASIC METABOLIC PANEL STAT 09/09/2021 9:02 AM CDT ECG 12-LEAD Routine 09/09/2021 8:51 AM CDT POCT GLUCOSE DEVICE Routine 09/09/2021 6 :34 AM CDT documented in this encounter Results * POCT glucose (09/12/2021 12:02 PM CDT) Glucose, POC 85 70 - 199 mg/dL [facility] Blood 09/12/2021 12:0 2 PM CDT 09/12/2021 12:02 PM CDT us Italia Ruiz MD LAB POCT ORDERABLES - DEV ICE Final Result Performing Organization Address City/[facility] Co de Phone Number [facility] [place] [employer] [place] [address] * POCT glucose (09/12/2021 9:19 AM CDT) Glucose, POC 117 70 - 199 mg/dL [facility] Blood 09/12/2021 9:19 AM CDT 09/12/2021 9:19 AM CDT Italia Ruiz MD LAB POCT ORDERABLES - DEV ICE Final Result Performing Organization Address [facility] [place] [address] * (ABNORMAL) POCT glucose (09/12/2021 8:06 AM CDT) [facility] Glucose, POC 65(L) 70 - 199 mg/dL [facility] Glucose comment 1 Glu2: RN/MD Notified [facility] Blood 09/12/2021 8:06 AM CDT 09/12/2021 8:[address] [facility] Italia Ruiz MD LAB POCT ORDERABLES - DEV ICE Final Result Performing Organization Address [facility] de Phone Number [facility] [place] [address] * (ABNORMAL) eGFR (09/12/2021 5:14 AM CDT) eGFR 76(L) 90 - 130 mL/min/1. 73 m2 [facility] Comment: Interpretive Data Reference Interval Normal ?>/= [...] interpretive data was last reviewed 2021. Blood 09/12/2021 5:14 AM CDT 09/12/2021 5:33 AM CDT us Lin Miles MD LAB BLOOD ORDERABLES Final Result [facility] [place] [address] * Differential, auto (09/12/2021 5:14 AM CDT) Neutrophil abs 4.1 1.7 - 6.5 K/cumm [facility] Imm gran abs 0.0 0.0 - 0.1 K/cumm [facility] Lymphocyte abs 3.2 0.8 - 3.3 K/cumm [facility] Monocyte abs 0.5 0.2 - 0.8 K/cumm [facility] Eosinophil abs 0.2 0.0 - 0.5 K/cumm [facility] Basophil abs 0.1 0.0 - 0.1 K/cumm [facility] Neutrophil pct 50.9 % [facility] Comment: Interpretive Data Percent cell count reference ranges are not reported, since discordance with absolute values may lead to misinterpretation of CBC data. Current Interpretive Data was last revised on 2017. Imm gran pct 0.2 % [facility] Comment: Interpretive Data Percent cell count reference ranges are not reported, since discordance with absolute values may lead to misinterpretation of CBC data. Current Interpretive Data was last revised on 2017. Lymphocyte pct 39.2 % [facility] Comment: Interpretive Data Percent cell count reference ranges are not reported, since discordance with absolute values may lead to misinterpretation of CBC data. Current Interpretive Data was last revised on 2017. Monocyte pct 6.7 % [facility] Comment: Interpretive Data Percent cell count reference ranges are not reported, since discordance with absolute values may lead to misinterpretation of CBC data. Current Interpretive Data was last revised on 2017. Eosinophil pct 2.1 % [facility] Comment: Interpretive Data Percent cell count reference ranges are not reported, since discordance with absolute values may lead to misinterpretation of CBC data. Current Interpretive Data was last revised on 2017. Basophil pct 0.9 % [facility] Comment: Interpretive Data Percent cell count reference ranges are not reported, since discordance with absolute values may lead to misinterpretation of CBC data. Current Interpretive Data was last revised on 2017. Blood 09/12/2021 5:14 AM CDT 09/12/2021 5:33 AM CDT Lin Miles MD LAB BLOOD ORDERABLES Final Result Performing Organization Address City/State/[facility] Co de Phone Number [facility] [place] [address] * CBC with auto differential (09/12/2021 5:14 AM CDT) WBC 8.0 3.8 - 9.9 K/cumm [facility] Hgb 12.3 11.9 - 15.5 g/dL [facility] Hct 36.5 35.6 - 45.5 % [facility] Plt 201 150 - 400 K/cumm [facility] MPV 9.4 9.1 - 12.3 fL [facility] RBC 4.13 3.90 - 5.20 M/cumm [facility] MCV 88.4 81.3 - 96.4 fL [facility] MCH 29.8 27.1 - 33.3 pg [facility] MCHC 33.7 32.3 - 35.7 g/dL [facility] RDW CV 12.8 11.1 - 14.9 % [facility] RDW SD 41.1 35.7 - 48.1 fL [facility] NRBC abs 0.00 0.00 - 0.01 K/cumm [facility] Blood 09/12/2021 5:14 AM CDT 09/12/2021 5:33 AM CDT Lin Miles MD LAB BLOOD ORDERABLES Final Result [facility] [place] [address] * Basic metabolic panel (09/12/2021 5:14 AM CDT) Sodium 140 135 - 145 mmol/L [facility] Potassium, pl 3.6 3.3 - 4.9 mmol/L [facility] Chloride 106 97 - 110 mmol/L [facility] CO2 28 22 - 32 mmol/L [facility] Anion gap 6 2 - 15 mmol/L [facility] BUN 15 8 - 25 mg/dL [facility] Creatinine 0.97 0.60 - 1.10 mg/dL [facility] Glucose 80 70 - 199 mg/dL [facility] Comment: Interpretive Data Fasting glucose >/= [...] interpretive data was last revised 2017. Calcium 8.9 8.5 - 10.3 mg/dL [facility] Blood 09/12/2021 5:14 AM CDT 09/12/2021 5:33 AM CDT Lin Miles MD LAB BLOOD ORDERABLES Final Result Performing Organization Address [facility] Co de Phone Number [facility] [place] [address] * POCT glucose (09/11/2021 8:42 PM CDT) Glucose, POC 146 70 - 199 mg/dL [facility] Blood 09/11/2021 8:42 PM CDT 09/11/2021 8:42 PM CDT Lin Miles MD LAB POCT ORDERABLES - AMINTA CE Final Result Performing Organization Address [facility] Co de Phone Number [facility] [place] [address] * POCT glucose (09/11/2021 5:36 PM CDT) Glucose, POC 73 70 - 199 mg/dL [facility] Blood 09/11/2021 5:36 PM CDT 09/11/2021 5:36 PM CDT Lin Miles MD LAB POCT ORDERABLES - AMINTA CE Final Result Performing Organization Address City/[facility] Co de Phone Number [facility] [place] [address] * POCT glucose (09/11/2021 12:23 PM CDT) Glucose, POC 78 70 - 199 mg/dL [facility] Blood 09/11/2021 12:2 3 PM CDT 09/11/2021 12:23 PM CDT Lin Miles MD LAB POCT ORDERABLES - AMINTA CE Final Result Performing Organization Address [facility] Co de Phone Number [facility] [place] [address] * (ABNORMAL) POCT glucose (09/11/2021 9:08 AM CDT) Glucose, POC 63(L) 70 - 199 mg/dL [facility] Blood 09/11/2021 9:08 AM CDT 09/11/2021 9:08 AM CDT Lin Miles MD LAB POCT ORDERABLES - AMINTA CE Final Result Performing Organization Address [facility] de Phone Number [facility] [place] [address] * POCT glucose (09/11/2021 7:04 AM CDT) Glucose, POC 76 70 - 199 mg/dL [facility] Blood 09/11/2021 7:04 AM CDT 09/11/2021 7:04 AM CDT Lin Miles MD LAB POCT ORDERABLES - AMINTA CE Final Result Performing Organization Address [facility] Co de Phone Number [facility] [place] [address] * (ABNORMAL) POCT glucose (09/11/2021 6:45 AM CDT) Glucose, POC 64(L) 70 - 199 mg/dL [facility] Blood 09/11/2021 6:45 AM CDT 09/11/2021 6:45 AM CDT Lin Miles MD LAB POCT ORDERABLES - AMINTA CE Final Result Performing Organization Address [facility]/ZIP Co de Phone Number [facility] [place] [address] * POCT glucose (09/10/2021 9:02 PM CDT) Glucose, POC 71 70 - 199 mg/dL [facility] Blood 09/10/2021 9:02 PM CDT 09/10/2021 9:02 PM CDT Lin Miles MD LAB POCT ORDERABLES - AMINTA CE Final Result Performing Organization Address [facility] [place] [address] * POCT glucose (09/10/2021 5:52 PM CDT) Glucose, POC 75 70 - 199 mg/dL [facility] Blood 09/10/2021 5:52 PM CDT 09/10/2021 5:52 PM CDT Charleen Guzman MD LAB POCT ORDERABLES - AMINTA CE Final Result Performing Organization Address [facility]/ZIP Co de Phone Number [facility] [place] [address] * POCT glucose (09/10/2021 1:22 PM CDT) Glucose, POC 84 70 - 199 mg/dL [facility] Blood 09/10/2021 1:22 PM CDT 09/10/2021 1:22 PM CDT Charleen Guzman MD LAB POCT ORDERABLES - AMINTA CE Final Result Performing Organization Address City/[facility]/ZIP Co de Phone Number [facility] [place] [address] * POCT glucose (09/10/2021 9:01 AM CDT) Pathologist [facility] Glucose, POC 85 70 - 199 mg/dL [facility] Blood 09/10/2021 9:01 AM CDT 09/10/2021 9:01 AM CDT Charleen Guzman MD LAB POCT ORDERABLES - AMINTA CE Final Result Performing Organization Address [facility] de Phone Number [facility] [place] [address] * hCG, urine, qualitative (09/10/2021 6:38 AM CDT) [facility] HCG, ur Negative Negative [facility] Urine 09/10/2021 6:38 AM CDT 09/10/2021 6:48 AM CDT us Judy Morgan MD LAB URINE ORDERABLES Final Result Performing Organization Address [facility] de Phone Number [facility] [place] [address] * eGFR (09/10/2021 6:09 AM CDT) [facility] eGFR >90 90 - 130 mL/min/1. 73 m2 [facility] Comment: Interpretive Data Reference Interval Normal ?>/= [...] of Race in Diagnosing Kidney Disease, JASN 202). The CKD-EPI equation should not be used for patients with unstable renal function and has not been validated in children and those over 70. Current interpretive data was last reviewed 2021. Blood 09/10/2021 6:09 AM CDT 09/10/2021 6:17 AM CDT us Travon Shah MD LAB BLOOD ORDERABLES Final Re sult [facility] [place] [address] * Differential, auto (09/10/2021 6:09 AM CDT) Neutrophil abs 5.7 1.7 - 6.5 K/cumm [facility] Imm gran abs 0.0 0.0 - 0.1 K/cumm [facility] Lymphocyte abs 2.6 0.8 - 3.3 K/cumm [facility] Monocyte abs 0.7 0.2 - 0.8 K/cumm [facility] Eosinophil abs 0.2 0.0 - 0.5 K/cumm [facility] Basophil abs 0.1 0.0 - 0.1 K/cumm [facility] Neutrophil pct 61.3 % [facility] Comment: Interpretive Data Percent cell count reference ranges are not reported, since discordance with absolute values may lead to misinterpretation of CBC data. Current Interpretive Data was last revised on 2017. Imm gran pct 0.3 % [facility] Comment: Interpretive Data Percent cell count reference ranges are not reported, since discordance with absolute values may lead to misinterpretation of CBC data. Current Interpretive Data was last revised on 2017. Lymphocyte pct 27.9 % [facility] Comment: Interpretive Data Percent cell count reference ranges are not reported, since discordance with absolute values may lead to misinterpretation of CBC data. Current Interpretive Data was last revised on 2017. Monocyte pct 7.7 % [facility] Comment: Interpretive Data Percent cell count reference ranges are not reported, since discordance with absolute values may lead to misinterpretation of CBC data. Current Interpretive Data was last revised on 2017. Eosinophil pct 1.8 % [facility] Comment: Interpretive Data Percent cell count reference ranges are not reported, since discordance with absolute values may lead to misinterpretation of CBC data. Current Interpretive Data was last revised on 2017. Basophil pct 1.0 % [facility] Comment: Interpretive Data Percent cell count reference ranges are not reported, since discordance with absolute values may lead to misinterpretation of CBC data. Current Interpretive Data was last revised on 2017. Blood 09/10/2021 6:09 AM CDT 09/10/2021 6:17 AM CDT us Travon Shah MD LAB BLOOD ORDERABLES Final Re sult [facility] Department of Laboratories [place], [place] [id number] * (ABNORMAL) CBC with auto differential (09/10/2021 6:09 AM CDT) WBC 9.3 3.8 - 9.9 K/cumm [facility] Hgb 15.2 11.9 - 15.5 g/dL [facility] Hct 44.2 35.6 - 45.5 % [facility] Plt 238 150 - 400 K/cumm [facility] MPV 9.0(L) 9.1 - 12.3 fL [facility] RBC 5.04 3.90 - 5.20 M/cumm [facility] MCV 87.7 81.3 - 96.4 fL [facility] MCH 30.2 27.1 - 33.3 pg [facility] MCHC 34.4 32.3 - 35.7 g/dL [facility] RDW CV 12.7 11.1 - 14.9 % [facility] RDW SD 40.7 35.7 - 48.1 fL [facility] NRBC abs 0.00 0.00 - 0.01 K/cumm [facility] Blood 09/10/2021 6:09 AM CDT 09/10/2021 6:17 AM CDT Travon Shah MD LAB BLOOD ORDERABLES Final Re sult [facility] [place] [address] * Basic metabolic panel (09/10/2021 6:09 AM CDT) Sodium 139 135 - 145 mmol/L [facility] Potassium, pl 3.6 3.3 - 4.9 mmol/L [facility] Chloride 102 97 - 110 mmol/L [facility] CO2 26 22 - 32 mmol/L [facility] Anion gap 11 2 - 15 mmol/L [facility] BUN 12 8 - 25 mg/dL [facility] Creatinine 0.66 0.60 - 1.10 mg/dL [facility] Glucose 81 70 - 199 mg/dL [facility] Comment: Interpretive Data Fasting glucose >/= [...] interpretive data was last revised 2017. Calcium 9.8 8.5 - 10.3 mg/dL [facility] Blood 09/10/2021 6:0 9 AM CDT 09/10/2021 6:17 AM CDT Travon Shah MD LAB BLOOD ORDERABLES Final Re sult Performing Organization Address City/[facility]/ZIP Co de Phone Number [facility] [place] [address] * COVID-19 Coronavirus RNA Nasopharyngeal (09/09/2021 4:03 PM CDT) COVID-19 RNA Negative Negative [facility] Nasopharyngeal 09/09/2021 4: 03 PM CDT 09/09/2021 4:16 PM CDT Narrative [facility] - 09/09/2021 4:50 PM CDT Is the patient experiencing any symptoms consistent with COVID (eg. Fever, cough, shortness of breath)?->No What is the reason for testing?->Bed placement or semi-private room (Rapid) ??Interpretive data: Synonyms for this test include: PCR and NAAT . ??This test is performed using the [facility] Xpert Xpress plus assay. This is a real-time RT-PCR test intended for the qualitative detection of nucleic acid from the SARS-CoV-2. This assay has been reviewed by the FDA for Emergency Use Authorization (EUA). The performance characteristics have been verified by the performing laboratory. Results must be considered in the clinical context and a negative result does not rule out infection. Interpretive data last revised August 09, 2021. ??Interpretive data: Synonyms for this test include: PCR and NAAT . ??This test is performed using the [facility] Xpert Xpress plus assay. This is a real-time RT-PCR test intended for the qualitative detection of nucleic acid from the SARS-CoV-2. This assay has been reviewed by the FDA for Emergency Use Authorization (EUA). The performance characteristics have been verified by the performing laboratory. Results must be considered in the clinical context and a negative result does not rule out infection. Interpretive data last revised August 09, 2021. Romie Wilder MD PhD LAB MICROBIOLOGY - GENERAL ORDERABLES Final Result [facility] [place] [address] * ED PERIPHERAL LINE INSERTION (09/09/2021 11:20 AM CDT) Narrative Dax Pickard MD - 09/09/2021 11:20 AM CDT Romie Wilder MD PhD ? 09/09/2021 11:21 AM Peripheral line insertion Date/Time: 09/09/2021 11:20 AM Performed by: Romie Wilder MD PhD Authorized by: Judy Morgan MD Indications: ??Emergency venous access and nursing unable to obtain Pre-procedure details: ??Hand hygiene: Hand hygiene performed prior to insertion ?Skin preparation: ??Alcohol Anesthesia (see MAR for exact dosages): ??Anesthesia method: ??None Procedure details: ??Catheter size: ??20 G ??Laterality: ??Right ??Location: ??Antecubital fossa ??Number of attempts: ??1 ??Ultrasound guidance was used to confirm vessel patency and needle position: Yes ?Successful placement: yes ?? Post-procedure details: ??Post-procedure: ??Dressing applied ??Patient tolerance of procedure: ??Tolerated well, no immediate complications us Judy Morgan MD IN CLINIC/BEDSIDE ORD ERABLES Final Result * CT Head WO Contrast (09/09/2021 10:42 AM CDT) Anatomical Region Laterality Modality Head and Neck N/A Computed Tomogra phy 09/09/2021 10:5 4 AM CDT Impressions 09/09/2021 10:54 AM CDT No acute intracranial abnormality. ??No evidence for subarachnoid hemorrhage. Electronically signed by: Enrique Boyle M.D. Narrative 09/09/2021 10:54 AM CDT EXAMINATION: CT head without contrast HISTORY: Mental status changes. ??Evaluate for subarachnoid hemorrhage TECHNIQUE: Noncontrast CT of the brain was performed with images acquired from skull base to vertex. COMPARISON: MRI 07/03/2021. FINDINGS: Topogram demonstrates no lytic lesions or fractures. There is no acute intracranial hemorrhage. Ventricles are of normal size and morphology. No mass effect or midline shift is present. The alva-white matter differentiation is normal. The visualized portions of the orbits are normal. The visualized portions of the mastoids are normal. The visualized portions of the paranasal sinuses are normal. No fractures are identified. Procedure Note Enrique Boyle MD PhD - 09/09/2021 EXAMINATION: CT head without contrast HISTORY: Mental status changes. Evaluate for subarachnoid hemorrhage TECHNIQUE: Noncontrast CT of the brain was performed with images acquired from skull base to vertex. COMPARISON: MRI 07/03/2021. FINDINGS: Topogram demonstrates no lytic lesions or fractures. There is no acute intracranial hemorrhage. Ventricles are of normal size and morphology. No mass effect or midline shift is present. The alva-white matter differentiation is normal. The visualized portions of the orbits are normal. The visualized portions of the mastoids are normal. The visualized portions of the paranasal sinuses are normal. No fractures are identified. IMPRESSION: No acute intracranial abnormality. No evidence for subarachnoid hemorrhage. Electronically signed by: Enrique Boyle M.D. Romie Wilder MD PhD IMG CT PROCEDURES F inal Result * (ABNORMAL) Lipid panel (09/09/2021 9:02 AM CDT) Cholesterol 284(H) 30 - 199 mg/dL [facility] Comment: Hemolyzed; result may be falsely elevated Interpretive Data Ages < or = 19 [...] Data was last revised on 2017. Triglycerides See Comment <=149 mg/dL [facility] Comment: Credited; Hemolyzed Specimen Interpretive Data Ages < or = 9 [...] Data was last revised on 2017. HDL 43 >=40 mg/dL [facility] Comment: Interpretive Data Ages < or = [...] was last revised on 2017. LDL, calculated See Comment <=129 [facility] Comment: Unable to calculate Interpretive Data Ages < or = 19 [...] was last revised on 2017. Non-HDL Cholesterol 241 mg/dL [facility] Comment: Interpretive Data Ages < or = [...] last revised on 2017. Chol/HDL ratio 7 [facility] Blood 09/09/2021 9:02 AM CDT 09/09/2021 12:01 PM CDT us Leland Brower MD LAB BLOOD ORDERABLES F inal Result [facility] Department of Laboratories [place], [place] [id number] * Hemoglobin A1c (09/09/2021 9:02 AM CDT) Hgb A1C 5.6 4.0 - 5.6 % [facility] Estimated Average Glucose 114 mg/dL [facility] Comment: The ADA recommends reporting an estimated Average Glucose (eAG) with all Hemoglobin A1c results using the equation derived from a study of 507 normal and diabetic adults. ??Minority populations were underrepresented and children were not included. ?? (Diabetes Care 2020; 43(S1): S66-S76). ??The eAG is not equivalent to a fasting glucose. Blood 09/09/2021 9:02 AM CDT 09/09/2021 11:25 AM CDT Leland Brower MD LAB BLOOD ORDERABLES F inal Result [facility] [place] [address] * eGFR (09/09/2021 9:02 AM CDT) eGFR >90 90 - 130 mL/min/1. 73 m2 [facility] Comment: Interpretive Data Reference Interval Normal ?>/= [...] interpretive data was last reviewed 2021. Blood 09/09/2021 9:02 AM CDT 09/09/2021 12:01 PM CDT us Romie Wilder MD PhD LAB BLOOD ORDERABLE S Final Result [facility] [place] [address] * (ABNORMAL) Differential, auto (09/09/2021 9:02 AM CDT) Neutrophil abs 10.1(H) 1.7 - 6.5 K/cumm [facility] Imm gran abs 0.1 0.0 - 0.1 K/cumm [facility] Lymphocyte abs 1.8 0.8 - 3.3 K/cumm [facility] Monocyte abs 0.8 0.2 - 0.8 K/cumm [facility] Eosinophil abs 0.1 0.0 - 0.5 K/cumm [facility] Basophil abs 0.1 0.0 - 0.1 K/cumm [facility] Neutrophil pct 78.7 % [facility] Comment: Interpretive Data Percent cell count reference ranges are not reported, since discordance with absolute values may lead to misinterpretation of CBC data. Current Interpretive Data was last revised on 2017. Imm gran pct 0.5 % [facility] Comment: Interpretive Data Percent cell count reference ranges are not reported, since discordance with absolute values may lead to misinterpretation of CBC data. Current Interpretive Data was last revised on 2017. Lymphocyte pct 13.8 % [facility] Comment: Interpretive Data Percent cell count reference ranges are not reported, since discordance with absolute values may lead to misinterpretation of CBC data. Current Interpretive Data was last revised on 2017. Monocyte pct 6.0 % [facility] Comment: Interpretive Data Percent cell count reference ranges are not reported, since discordance with absolute values may lead to misinterpretation of CBC data. Current Interpretive Data was last revised on 2017. Eosinophil pct 0.4 % [facility] Comment: Interpretive Data Percent cell count reference ranges are not reported, since discordance with absolute values may lead to misinterpretation of CBC data. Current Interpretive Data was last revised on 2017. Basophil pct 0.6 % [facility] Comment: Interpretive Data Percent cell count reference ranges are not reported, since discordance with absolute values may lead to misinterpretation of CBC data. Current Interpretive Data was last revised on 2017. Blood 09/09/2021 9:02 AM CDT 09/09/2021 11:21 AM CDT Romie Wilder MD PhD LAB BLOOD ORDERABLE S Final Result Performing Organization Address [facility] de Phone Number [facility] [place] [address] * Troponin I high-sensitivity (09/09/2021 9:02 AM CDT) Pathologist [facility] Trop I hs <4 <=17 ng/L [facility] Comment: Interpretive Data For further [facility] resources including the diagnostic algorithm and an aid in interpretation, copy and paste this link: [email or web address] Current Interpretive Data last revised 2019. Blood 09/09/2021 9:02 AM CDT 09/09/2021 11:21 AM CDT Romie Wilder MD PhD LAB BLOOD ORDERABLE S Final Result Performing Organization Address [facility] de Phone Number [facility] [place] [address] * Basic metabolic panel (09/09/2021 9:02 AM CDT) Pathologist [facility] Sodium 136 135 - 145 mmol/L [facility] Potassium, pl See Comment 3.3 - 4.9 mmol/L [facility] Comment:Credited; Hemolyzed Specimen Chloride 100 97 - 110 mmol/L [facility] CO2 28 22 - 32 mmol/L [facility] Comment:Hemolyzed; result ma y be falsely decreased Anion gap 8 2 - 15 mmol/L [facility] BUN 10 8 - 25 mg/dL [facility] Creatinine 0.62 0.60 - 1.10 mg/dL [facility] Glucose 99 70 - 199 mg/dL [facility] Comment: Interpretive Data Fasting glucose >/= [...] interpretive data was last revised 2017. Calcium 9.7 8.5 - 10.3 mg/dL [facility] Blood 09/09/2021 9:02 AM CDT 09/09/2021 12:01 PM CDT us Romie Wilder MD PhD LAB BLOOD ORDERABLE S Final Result [facility] [place] [address] * (ABNORMAL) CBC with auto differential (09/09/2021 9:02 AM CDT) WBC 12.8(H) 3.8 - 9.9 K/cumm [facility] Hgb 15.8(H) 11.9 - 15.5 g/dL [facility] Hct 46.4(H) 35.6 - 45.5 % [facility] Plt 244 150 - 400 K/cumm [facility] MPV 9.8 9.1 - 12.3 fL [facility] RBC 5.33(H) 3.90 - 5.20 M/cumm [facility] MCV 87.1 81.3 - 96.4 fL [facility] MCH 29.6 27.1 - 33.3 pg [facility] MCHC 34.1 32.3 - 35.7 g/dL [facility] RDW CV 12.7 11.1 - 14.9 % [facility] RDW SD 39.7 35.7 - 48.1 fL [facility] NRBC abs 0.00 0.00 - 0.01 K/cumm [facility] Blood (Blood, Venous) 09/09/2021 9:02 AM CDT 09/09/2021 11:21 AM CDT Romie Wilder MD PhD LAB BLOOD ORDERABLE S Final Result Performing Organization Address [facility] Co de Phone Number [facility] [place] [address] * ECG 12-LEAD (09/09/2021 8:51 AM CDT) Narrative [facility] - 09/09/2021 8:51 AM CDT Dax Pickard MD ? 09/25/2021 ??8:31 AM ECG 12 lead Date/Time: 09/09/2021 8:51 AM Performed by: Judy Morgan MD Authorized by: Romie Wilder MD PhD Quality: ??Tracing quality: ??Limited by artifact Rate: ??ECG rate: ??92 ??ECG rate assessment: normal ?? Rhythm: ??Rhythm: sinus rhythm ?? Ectopy: ??Ectopy: none ?? QRS: ??QRS axis: ??Normal Q waves: ??Q waves: ??III and aVF Previous ECG: ??Previous ECG: ??Unavailable Interpretation: ??Interpretation: non-specific ?? us Romie Wilder MD PhD ECG ORDERABLES Reza erika Result - Final Performing Organization Address [facility] Co de Phone Number [facility] * POCT glucose (09/09/2021 6:34 AM CDT) Glucose, POC 109 70 - 199 mg/dL [facility] Blood 09/09/2021 6:34 AM CDT 09/09/2021 6:34 AM CDT us Notinfile Unknown LAB POCT ORDERABLES - DEVICE F inal Result [facility] [place] [address] documented in this encounter Visit Diagnoses Diagnosis Lumbar puncture headache- Primary Reaction to spinal or lumbar puncture Lumbar puncture headache Reaction to spinal or lumbar puncture Fall, initial encounter Head injury, initial encounter Type 2 diabetes mellitus with hyperglycemia, with long-term current use of insulin ([facility]) ([facility]) Migraine Migraine, unspecified, without mention of intractable migraine without mention of status migrainosus Macular edema, diabetic ([facility]) Type II or unspecified type diabetes mellitus with ophthalmic manifestations, not stated as uncontrolled Hypertension associated with diabetes ([facility]) Unspecified essential hypertension Mixed hyperlipidemia Trigeminal neuralgia BMI 38.0-38.9,adult Recurrent boils Carbuncle and furuncle of unspecified site Hypoglycemia due to type 1 diabetes mellitus ([facility]) ([facility]) 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 Physical deconditioning Muscular wasting and disuse atrophy, not elsewhere classified documented in this encounter Admitting Diagnoses Diagnosis Lumbar puncture headache Reaction to spinal or lumbar puncture documented in this encounter Administered Medications Inactive Administered Medications - up to 3 most recent administrations Medication Order MAR Action Action Date Dose Rate Site acetaminophen (TYLENOL) tablet 1,000 mg 1,000 mg, oral, Once, On 09/09/21 at 0830, For 1 dose Given 09/09/2021 9:03 AM CDT 1,000 mg acetaminophen (TYLENOL) tablet 1,000 mg 1,000 mg, oral, Once, On 09/09/21 at 1439, For 1 dose Given 09/09/2021 3:11 PM CDT 1,000 mg acetaminophen (TYLENOL) tablet 650 mg 650 mg, oral, Every 6 hours PRN, 1st line for pain, headaches, Starting on 09/09/21 at 2330 Given 09/12/2021 7:05 AM CDT 650 mg Given 09/11/2021 7:41 PM CDT 650 mg Given 09/11/2021 12:21 PM CDT 650 mg atorvastatin (LIPITOR) tablet 20 mg 20 mg, oral, Nightly, First dose on 09/09/21 at 2200 Given 09/11/2021 8:49 PM CDT 20 mg Given 09/10/2021 9:16 PM CDT 20 mg azelastine (ASTELIN) 137 mcg (0.1 %) nasal spray 2 spray 2 spray, each nostril, 2 times daily, First dose on [facility] 09/09/21 at 2200 Given 09/11/2021 8:52 PM CDT 2 sprays Given 09/10/2021 9:15 PM CDT 2 sprays Given 09/10/2021 10:20 AM CDT 2 sprays buPROPion (WELLBUTRIN) tablet 100 mg 100 mg, oral, 2 times daily, First dose on [facility] 09/09/21 at 2200 Given 09/12/2021 8:25 AM CDT 100 mg Given 09/11/2021 8:37 AM CDT 100 mg Given 09/10/2021 9:16 PM CDT 100 mg carBAMazepine (TEGretol) 20 mg/mL oral suspension 100 mg 100 mg, oral, 3 times daily, First dose on [facility] 09/09/21 at 2215 Given 09/12/2021 10:14 AM CDT 100 mg Given 09/11/2021 5:31 PM CDT 100 mg Given 09/11/2021 11:24 AM CDT 100 mg cetirizine (ZyrTEC) tablet 10 mg 10 mg, oral, Daily, First dose on [place] 09/10/21 at 0900 Given 09/12/2021 10:14 AM CDT 10 mg Given 09/11/2021 9:58 AM CDT 10 mg Given 09/10/2021 11:50 AM CDT 10 mg dapagliflozin (FARXIGA) tablet 10 mg 10 mg, oral, Daily, First dose on [place] 09/10/21 at 0900, Indications: type 2 diabetes mellitusIndications:type 2 diabetes mellitus Given 09/11/2021 9:59 AM CDT 10 mg Given 09/10/2021 10:18 AM CDT 10 mg dextrose (D10W) 10% bolus 250 mL 250 mL, intravenous, at 1,000 mL/hr, Administer over 15 Minutes, Every 15 min PRN, blood glucose less than 70 mg/dL and UNABLE to swallow/take PO glucose/juice., Starting on [facility] 09/09/21 at 2124, After treatment for hypoglycemia, recheck BG followed by treatment every 15 minutes until the BG is greater than 100 mg/dL. Then check BG 1 hour post treatment. If BG is less than 100 mg/dL, repeat Q15 minute BG checks and treatment. Call MD for each episode of hypoglycemia., Indications: hypoglycemic disorderIndications:hypoglycemic disorder dextrose gel in packet 15 g 15 g, oral, Every 15 min PRN, low blood sugar, blood glucose less than 70 mg/dL, Starting on 09/09/21 at 2124, If patient is alert and able to eat/drink, give 15 gm glucose or one juice (4 fluid ounces) NOT ORANGE JUICE. After treatment for hypoglycemia, recheck BG followed by treatment every 15 minutes until the BG is greater than 100 mg/dL. Then check BG 1 hour post-treatment. If BG is less than 100 mg/dL, repeat Q15 minute BG checks and treatment. Call MD for each episode of hypoglycemia., Indications: hypoglycemic disorderIndications:hypoglycemic disorder diazePAM (VALIUM) tablet 5 mg 5 mg, oral, Every 8 hours PRN, anxiety, Starting on 09/09/21 at 2124 Given 09/12/2021 10:13 AM CDT 5 mg diphenhydrAMINE (BENADRYL) injection 25 mg 25 mg, intravenous, Administer over 2 Minutes, Once, On 09/09/21 at 0830, For 1 dose Given 09/09/2021 9:05 AM CDT 25 mg doxycycline (VIBRAMYCIN) tablet/capsule 100 mg 100 mg, oral, Daily, First dose on 09/10/21 at 0900, Give 2 hrs before or 2 hrs after MVI, antacids, or other products containing sucralfate, magnesium, aluminum, iron, or zinc. May be taken without regard to meals., Indications: Chronic SuppressionIndications:Chronic Suppression Given 09/12/2021 9:50 AM CDT 1 00 mg Given 09/11/2021 9:59 AM CDT 100 mg Given 09/10/2021 10:19 AM CDT 100 mg droperidoL (INAPSINE) injection 0.625 mg 0.625 mg, intravenous, Administer over 5 Minutes, Once, On 09/09/21 at 1439, For 1 dose Given 09/09/2021 3:11 PM CDT 0.625 mg enoxaparin (LOVENOX) syringe 40 mg 40 mg, subcutaneous, Daily (for enoxaparin), First dose on 09/09/21 at 2200, Indications: Deep Vein Thrombosis PreventionIndications:De ep Vein Thrombosis Prevention Given 09/11/2021 8:52 PM CDT 40 mg Left Lower Abdomen HYDROmorphone (DILAUDID) injection 0.2 mg 0.2 mg, intravenous, Administer over 2 Minutes, Once, On 09/12/21 at 1245, For 1 dose Given 09/12/2021 12:12 PM CDT 0.2 mg hydrOXYzine (ATARAX) tablet 25 mg 25 mg, oral, 4 times daily PRN, allergies, 1st line, Starting on 09/09/21 at 2124 Given 09/11/2021 8:50 PM CDT 25 mg INSULIN SUBCUTANEOUS PUMP (NOVOLOG) 100 UNIT/ML INSULIN PUMP INFUSION (NovoLOG) patient supplied pump 0-25 Units 0-25 Units, subcutaneous, Continuous, Starting on 09/10/21 at 1545, Current pump settings will remain until a member of the Endocrine team, Maternal- Medicine (if applicable), or designee evaluates the patient and/or adjusts the pump settings., Attestation: Possesses no safety concerns (eg. diagnosis of DKA/HHS, admit to ICU, risk of self harm), Attestation: Possesses visual acuity and fine motor skills to operate pump, Attestation: Alert and oriented x 4, Attestation: Verbalizes desire to remain on insulin pump during hospitalization and understands insulin pump agreement, Insulin Pump: Insulin Pump Settings, Insulin Pump Settings: Basal Rate, Carbohydrate Ratio, High Glucose Correction, Basal Rate (units/hr): 1, From (hh:mm): 12:00 AM, To (hh:mm): 12:00 PM, Basal Rate (units/hr): 1.2, From (hh:mm): 12:00 PM, To (hh:mm): 12:00 AM, Carbohydrate Ratio: 1 unit per how many gm carbohydrate: 8, From: (hh:mm): 12:00 AM, To:(hh:mm): 12:00 AM, Carbohydrate Ratio: 1 unit per how many gm carbohydrate: 25, From: (hh:mm): 12:00 AM, To:(hh:mm): 12:00 AM, Indications: Diabetes MellitusIndications:Diab etes Mellitus Self Administered Via Pump 09/10/2021 6:55 PM CDT 20.3 Units Left Lower Abdomen ketorolac (ACULAR) 0.5 % ophthalmic solution 1 drop 1 drop, each eye, 2 times daily, First dose on 09/09/21 at 2200 Given 09/11/2021 8:52 PM CDT 1 drop Given 09/10/2021 9:14 PM CDT 1 drop Given 09/10/2021 10:22 AM CDT 1 drop ketorolac (TORADOL) 30 mg/mL (1 mL) injection 30 mg 30 mg, intravenous, Once, On 09/09/21 at 1439, For 1 dose, For Adult IV push, administer over 15 seconds Given 09/09/2021 3:11 PM CDT 30 mg ketorolac (TORADOL) 30 mg/mL (1 mL) injection 30 mg 30 mg, intravenous, Every 6 hours PRN, other, breatkthrough pain, Starting on 09/11/21 at 0954, For 119 hours, For Adult IV push, administer over 15 seconds Given 09/12/2021 8:24 AM CDT 30 mg Given 09/11/2021 5:31 PM CDT 30 mg Given 09/11/2021 9:58 AM CDT 30 mg Lactated Ringer's (LR) bolus 1,000 mL 1,000 mL, intravenous, Once, On 09/09/21 at 0830, For 1 dose New Bag 09/09/2021 9:10 AM CDT 1,000 mL Lactated Ringer's (LR) infusion 75 mL/hr, intravenous, Continuous, Starting on 09/09/21 at 2200 New Bag 09/12/2021 7:06 AM CDT 75 mL/hr 75 mL/hr New Bag 09/11/2021 5:32 PM CDT 75 mL/hr 75 mL/hr New Bag 09/11/2021 4:04 AM CDT 75 mL/hr 75 mL/hr lamoTRIgine (LaMICtal) tablet 100 mg 100 mg, oral, Daily, First dose on Sat09/10/21 at 0900 Given 09/11/2021 8:49 PM CDT 100 mg Given 09/10/2021 10:19 AM CDT 100 mg lisinopriL (PRINIVIL,ZESTRIL) tablet 10 mg 10 mg, oral, Daily, First dose on 09/10/21 at 0900 Given 09/12/2021 9:50 AM CDT 10 mg Given 09/11/2021 11:23 AM CDT 10 mg Given 09/10/2021 10:17 AM CDT 10 mg montelukast (SINGULAIR) tablet 10 mg 10 mg, oral, Nightly, First dose on 09/09/21 at 2200 Given 09/11/2021 8:49 PM CDT 10 mg Given 09/10/2021 9:16 PM CDT 10 mg ondansetron (ZOFRAN) injection 4 mg 4 mg, intravenous, Administer over 2 Minutes, Every 6 hours PRN, nausea, vomiting, Starting on 09/09/21 at 2124 Given 09/12/2021 12:00 PM CDT 4 mg Given 09/10/2021 10:46 AM CDT 4 mg Given 09/10/2021 5:51 AM CDT 4 mg oxyCODONE (ROXICODONE) tablet 5 mg 5 mg, oral, Every 6 hours PRN, 2nd line for pain, Starting on 09/10/21 at 1042, Indications: PainIndications:Pain Given 09/12/2021 7:05 AM CDT 5 mg Given 09/11/2021 7:41 PM CDT 5 mg Given 09/11/2021 12:21 PM CDT [address] (PROTONIX) extended release tablet 40 mg 40 mg, oral, 2 times daily, First dose on 09/09/21 at 2200, Do not crush, chew, cut, dissolve, open or otherwise manipulate tablet/capsule., Indications: Mucositis ProphylaxisIndications:Mucositis Prophylaxis Given 09/12/2021 8:24 AM CDT 40 mg Given 09/11/2021 8:50 PM CDT 40 mg Given 09/11/2021 8:37 AM CDT 40 mg prochlorperazine (COMPAZINE) injection 5 mg 5 mg, intravenous, Administer over 2 Minutes, Once, On 09/09/21 at 0830, For 1 dose Given 09/09/2021 9:04 AM CDT 5 mg prochlorperazine (COMPAZINE) injection 5 mg 5 mg, intravenous, Administer over 2 Minutes, Once, On 09/10/21 at 1215, For 1 dose Given 09/10/2021 11:51 AM CDT 5 m g propranoloL (INDERAL) tablet 20 mg 20 mg, oral, 2 times daily, First dose on 09/09/21 at 2200 Given 09/12/2021 9:50 AM CDT 20 mg Given 09/11/2021 8:49 PM CDT 20 mg Given 09/11/2021 11:23 AM CDT 20 mg topiramate (TOPAMAX) tablet 200 mg 200 mg, oral, 2 times daily, First dose on 09/09/21 at 2200 Given 09/11/2021 8:50 PM CDT 200 mg Given 09/11/2021 5:32 PM CDT 200 mg Given 09/10/2021 9:16 PM CDT 200 mg ziprasidone (GEODON) capsule 20 mg 20 mg, oral, 2 times daily with meals (bkfst, dinner), First dose on 09/10/21 at 0800, May cause prolongation of QT interval. Take with food. Given 09/11/2021 9:48 PM CDT 20 mg Given 09/11/2021 5:33 PM CDT 20 mg Given 09/10/2021 6:54 PM CDT 20 mg documented in this encounter Discontinued Medications Medication Sig Discontinue Reason Start Date End Da te hyoscyamine (LEVSIN) 0.125 mg tabletIndications:Urin hair Incontinence TAKE 1 TABLET 3 TIMES DAILY PRN for pain Therapy completed 03/13/2017 09/09/2021 insulin aspart U-100 (NovoLOG Flexpen U-100 Insulin) 100 unit/mL (3 mL) insulin pen Inject up to 44 units TIDAC Stop Taking at Discharge 12/14/2019 09/12/2021 Levemir FlexTouch U-100 Insuln 100 unit/mL (3 mL) insulin pen INJECT 50 UNITS UNDER THE SKIN NIGHTLY Stop Taking at Discharge 02/03/2020 09/12/2021 insulin glargine (BASAGLAR) 100 unit/mL (3 mL) pen for injection Basaglar KwikPen U-100 Insulin 100 unit/mL (3 mL) subcutaneous INJECT UP TO 60 UNITS UNDER THE SKIN AT BEDTIME Stop Taking at Discharge 09/12/2021 insulin aspart (NovoLOG) 100 unit/mL (3 mL) pen for injection Novolog Flexpen U-100 Insulin aspart 100 unit/mL (3 mL) subcutaneous INJECT UP TO 44 UNITS 3 TIMES A DAY BEFORE MEALS Stop Taking at Discharge 09/12/2021 insulin aspart (NovoLOG) 100 unit/mL vial for injection Novolog U-100 Insulin aspart 100 unit/mL subcutaneous solution Stop Taking at Discharge 09/12/2021 documented as of this encounter Historical Medications * This list may reflect changes made after this encounter. rizatriptan (MAXALT) 10 mg tabletIndication s:Migraine Take 1 tablet (10 mg total) by mouth once as needed for migraine May repeat in 2 hours if unresolved. Do not exceed 30 mg in 24 hours. 08/30/2022 added in this encounter Active and Recently Administered Medications Times are shown in CDT. Scheduled Medication Order 09/10/2021 09/11/2021 09/12/2021 atorvastatin (LIPITOR) tablet 20 mg 20 mg, oral, Nightly, First dose on 09/09/21 at 2200 2115 (Given - Provider: Marcia Bal RN) 2048 (Given - Provider: Brandyn [place] RN) azelastine (ASTELIN) 137 mcg (0.1 %) nasal spray 2 spray 2 spray, each nostril, 2 times daily, First dose on 09/09/21 at 2200 1020 (Given - Provider: Sharon Wyman RN)2114 (Given - Provider: Marcia Bal RN) 1233 (Not Given - Provider: Olivia Nguyen RN - Reason: Patient/family refused)2051 (Given - Provider: Brandyn [place] RN) 0900 (Due) buPROPion (WELLBUTRIN) tablet 100 mg 100 mg, oral, 2 times daily, First dose on 09/09/21 at 2200 1014 (Given - Provider: Sharon Wyman RN)2115 (Given - Provider: Marcia Bal RN) 0837 (Given - Provider: Olivia Nguyen RN)2055 (Not Given - Provider: Brandyn [place] RN - Reason: Patient/family refused) 0825 (Given - Provider: Olivia Nguyen RN) carBAMazepine (TEGretol) 20 mg/mL oral suspension 100 mg 100 mg, oral, 3 times daily, First dose on 09/09/21 at 2215 1020 (Given - Provider: Sharon Wyman RN)1538 (Given - Provider: Sharon Wyman RN)2117 (Given - Provider: Marcia Bal RN) 1124 (Given - Provider: Olivia Nguyen RN)1731 (Given - Provider: Olivia Nguyen RN)2056 (Not Given - Provider: Brandyn [place] RN - Reason: Patient/family refused) 1014 (Given - Provider: Olivia Nguyen RN) cetirizine (ZyrTEC) tablet 10 mg 10 mg, oral, Daily, First dose on 09/10/21 at 0900 1150 (Given - Provider: Sharon Wyman RN) 0958 (Given - Provider: Olivia Nguyen RN) 1014 (Given - Provider: Olivia Nguyen RN) dapagliflozin (FARXIGA) tablet 10 mg 10 mg, oral, Daily, First dose on 09/10/21 at 0900, Indications: type 2 diabetes mellitus 1018 (Given - Provider: Sharon Wyman RN) 0959 (Given - Provider: Olivia Nguyen RN) 0900 (Due) doxycycline (VIBRAMYCIN) tablet/capsule 100 mg 100 mg, oral, Daily, First dose on 09/10/21 at 0900, Give 2 hrs before or 2 hrs after MVI, antacids, or other products containing sucralfate, magnesium, aluminum, iron, or zinc. May be taken without regard to meals., Indications: Chronic Suppression 1019 (Given - Provider: Sharon Wyman RN) 0959 (Given - Provider: Olivia Nguyen RN) 0950 (Given - Provider: Olivia Nguyen RN) enoxaparin (LOVENOX) syringe 40 mg 40 mg, subcutaneous, Daily (for enoxaparin), First dose on 09/09/21 at 2200, Indications: Deep Vein Thrombosis Prevention 2115 (Not Given - Provider: Marcia Bal RN - Reason: Patient/family refused) 2051 (Given - Provider: Brandyn Noble, SILVER) HYDROmorphone (DILAUDID) injection 0.2 mg (COMPLETED) 0.2 mg, intravenous, Administer over 2 Minutes, Once, On Sat09/12/21 at 1245, For 1 dose 1212 (Given - Provider: Olivia Nguyen RN) insulin lispro (HumaLOG, ADMELOG) 100 unit/mL injection 8 Units 8 Units, subcutaneous, 3 times daily with meals, First dose on 09/10/21 at 0800, Administer back up dose if insulin pump is not functional. Call MD for alternate insulin regimen., Indications: Diabetes Mellitus 0800 (Not Given - Provider: Sharon Wyman RN - Reason: Order parameters not met)1200 (Not Given - Provider: Sharon Wyman RN - Reason: Order parameters not met)1811 (Not Given - Provider: Sharon Wyman RN - Reason: Order parameters not met) 1124 (Not Given - Provider: Olivia Nguyen RN - Reason: Order parameters not met)1251 (Not Given - Provider: Olivia Nguyen RN - Reason: Order parameters not met)1737 (Not Given - Provider: Olivia Nguyen RN - Reason: Order parameters not met) 0827 (Not Given - Provider: Olivia Nguyen RN - Reason: Order parameters not met)1227 (Not Given - Provider: Olivia Nguyen RN - Reason: Order parameters not met) ketorolac (ACULAR) 0.5 % ophthalmic solution 1 drop 1 drop, each eye, 2 times daily, First dose on 09/09/21 at 2200 1022 (Given - Provider: Sharon Wyman RN)2113 (Given - Provider: Marcia Bal RN) 1233 (Not Given - Provider: Olivia Nguyen RN - Reason: Patient/family refused)2051 (Given - Provider: Brandyn Noble, SILVER) 0900 (Due) lamoTRIgine (LaMICtal) tablet 100 mg 100 mg, oral, Daily, First dose on 7/3/22 at 0900 1019 (Given - Provider: Sharon Wyman RN) 0933 (Not Given - Provider: Olivia Nguyen RN - Reason: Other - Comment: orderchanged)2048 (Given - Provider: Brandyn Noble RN) lisinopriL (PRINIVIL,ZESTRIL) tablet 10 mg 10 mg, oral, Daily, First dose on 09/10/21 at 0900 1017 (Given - Provider: Sharon Wyman RN) 1123 (Given - Provider: Olivia Nguyen RN) 0950 (Given - Provider: Olivia Nguyen RN) montelukast (SINGULAIR) tablet 10 mg 10 mg, oral, Nightly, First dose on 09/09/21 at 2200 211 (Given - Provider: Marcia Bal RN) 2048 (Given - Provider: Brandyn Noble RN) pantoprazole DR (PROTONIX) extended release tablet 40 mg 40 mg, oral, 2 times daily, First dose on 09/09/21 at 2200, Do not crush, chew, cut, dissolve, open or otherwise manipulate tablet/capsule., Indications: Mucositis Prophylaxis 1017 (Given - Provider: Sharon Wyman RN)2111 (Given - Provider: Marcia Bal RN) 0837 (Given - Provider: Olivia Nguyen RN)2049 (Given - Provider: Brandyn Noble RN) 0824 (Given - Provider: Olivia Nguyen, SILVER) prochlorperazine (COMPAZINE) injection 5 mg (COMPLETED) 5 mg, intravenous, Administer over 2 Minutes, Once, On 09/10/21 at 1215, For 1 dose 1151 (Given - Provider: Sharon Wyman RN) propranoloL (INDERAL) tablet 20 mg 20 mg, oral, 2 times daily, First dose on 09/09/21 at 2200 1021 (Given - Provider: Sharon Wyman RN)2116 (Given - Provider: Marcia Bal RN) 112 (Given - Provider: Olivia Nguyen RN)2048 (Given - Provider: Brandyn Noble RN) 0950 (Given - Provider: Olivia Nguyen, SILVER) topiramate (TOPAMAX) tablet 200 mg 200 mg, oral, 2 times daily, First dose on 09/09/21 at 2200 1019 (Given - Provider: Sharon Wyman, SILVER)2116 (Given - Provider: Marcia Bal, SILVER) 1732 (Given - Provider: Olivia Nguyen, RN)2050 (Given - Provider: Brandyn Noble, RN) 0900 (Due) ziprasidone (GEODON) capsule 20 mg 20 mg, oral, 2 times daily with meals (bkfst, dinner), First dose on 09/10/21 at 0800, May cause prolongation of QT interval. Take with food. 1150 (Given - Provider: Sharon Wyman RN)1854 (Given - Provider: Sharon Wyman RN) 0800 (Due)1733 (Given - Provider: Olivia Nguyen, SILVER)214 (Given - Provider: Brandyn Noble, SILVER) Continuous Medication Order 09/10/2021 09/11/2021 09/12/2021 INSULIN SUBCUTANEOUS PUMP (NOVOLOG) 100 UNIT/ML INSULIN PUMP INFUSION (NovoLOG) patient supplied pump 0-25 Units 0-25 Units, subcutaneous, Continuous, Starting on 09/10/21 at 1545, Current pump settings will remain until a member of the Endocrine team, Maternal- Medicine (if applicable), or designee evaluates the patient and/or adjusts the pump settings., Attestation: Possesses no safety concerns (eg. diagnosis of DKA/HHS, admit to ICU, risk of self harm), Attestation: Possesses visual acuity and fine motor skills to operate pump, Attestation: Alert and oriented x 4, Attestation: Verbalizes desire to remain on insulin pump during hospitalization and understands insulin pump agreement, Insulin Pump: Insulin Pump Settings, Insulin Pump Settings: Basal Rate, Carbohydrate Ratio, High Glucose Correction, Basal Rate (units/hr): 1, From (hh:mm): 12:00 AM, To (hh:mm): 12:00 PM, Basal Rate (units/hr): 1.2, From (hh:mm): 12:00 PM, To (hh:mm): 12:00 AM, Carbohydrate Ratio: 1 unit per how many gm carbohydrate: 8, From: (hh:mm): 12:00 AM, To:(hh:mm): 12:00 AM, Carbohydrate Ratio: 1 unit per how many gm carbohydrate: 25, From: (hh:mm): 12:00 AM, To:(hh:mm): 12:00 AM, Indications: Diabetes Mellitus 185 (Self Administered Via Pump - Provider: Sharon Wyman RN) Lactated Ringer's (LR) infusion 75 mL/hr, intravenous, Continuous, Starting on 09/09/21 at 2200 1538 (New Bag - Provider: Sharon Wyman RN) 0404 (New Bag - Provider: Marcia Bal, SILVER)1732 (New Bag - Provider: Olivia Nguyen RN) 0706 (New Bag - Provider: Brandyn Noble, SILVER)193 (Due: Stopped) PRN Medication Order 09/10/2021 09/11/2021 09/12/2021 acetaminophen (TYLENOL) tablet 650 mg 650 mg, oral, Every 6 hours PRN, 1st line for pain, headaches, Starting on 09/09/21 at 2330 0551 (Not Given - Provider: Keila Adames RN - Reason: Other)1017 (Given - Provider: Sharon Wyman RN)211 (Given - Provider: Marcia Bal, SILVER) 0538 (Given - Provider: Vanesa Yañez RN)1221 (Given - Provider: Olivia Nguyen, SILVER)194 (Given - Provider: Brandyn Noble, SILVER) 0705 (Given - Provider: Brandyn Noble RN) albuterol 2.5 mg/0.5 mL nebulizer solution 2.5 mg 2.5 mg, nebulization, Every 4 hours PRN (correspondence clerk), wheezing, Starting on 09/09/21 at 4 dextrose (D10W) 10% bolus 250 mL(Linked Group 1) 250 mL, intravenous, at 1,000 mL/hr, Administer over 15 Minutes, Every 15 min PRN, blood glucose less than 70 mg/dL and UNABLE to swallow/take PO glucose/juice., Starting on 09/09/21 at 2124, After treatment for hypoglycemia, recheck BG followed by treatment every 15 minutes until the BG is greater than 100 mg/dL. Then check BG 1 hour post treatment. If BG is less than 100 mg/dL, repeat Q15 minute BG checks and treatment. Call MD for each episode of hypoglycemia., Indications: hypoglycemic disorder dextrose gel in packet 15 g(Linked Group 1) 15 g, oral, Every 15 min PRN, low blood sugar, blood glucose less than 70 mg/dL, Starting on 09/09/21 at 2123, If patient is alert and able to eat/drink, give 15 gm glucose or one juice (4 fluid ounces) NOT ORANGE JUICE. After treatment for hypoglycemia, recheck BG followed by treatment every 15 minutes until the BG is greater than 100 mg/dL. Then check BG 1 hour post-treatment. If BG is less than 100 mg/dL, repeat Q15 minute BG checks and treatment. Call MD for each episode of hypoglycemia., Indications: hypoglycemic disorder diazePAM (VALIUM) tablet 5 mg 5 mg, oral, Every 8 hours PRN, anxiety, Starting on 09/09/21 at 2123 0551 (Not Given - Provider: Keila Adames RN - Reason: Other) 1013 (Given - Provider: Olivia Nguyen RN) glucagon injection 1 mg 1 mg, intramuscular, Every 30 min PRN, low blood sugar, blood glucose less than 70 mg/dL AND no IV access AND unable to take PO glucose/juice., Starting on 09/09/21 at 2123, After Glucagon is administered, position patient on side if possible to avoid aspiration. Obtain IV access. Follow glucagon treatment with glucose treatment or IV dextrose. After treatment for hypoglycemia, recheck BG followed by treatment every 15 minutes until the BG is greater than 100 mg/dL. Then check BG 1 hour post treatment. If BG is less than 100 mg/dL, repeat Q15 minute BG checks and treatment. Call MD for each episode of hypoglycemia. Reconstitute 1 mg vial with 1 mL SWFI. Use immediately following reconstitution. hydrOXYzine (ATARAX) tablet 25 mg 25 mg, oral, 4 times daily PRN, allergies, 1st line, Starting on 09/09/21 at 2123 2050 (Given - Provider: Brandyn Noble RN) ketorolac (TORADOL) 30 mg/mL (1 mL) injection 30 mg 30 mg, intravenous, Every 6 hours PRN, other, breatkthrough pain, Starting on 09/11/21 at 0954, For 119 hours, For Adult IV push, administer over 15 seconds 0958 (Given - Provider: Olivia Nguyen, RN)1731 (Given - Provider: Olivia Nguyen, RN) 0824 (Given - Provider: Olivia Nguyen, RN) ondansetron (ZOFRAN) injection 4 mg 4 mg, intravenous, Administer over 2 Minutes, Every 6 hours PRN, nausea, vomiting, Starting on 09/09/21 at 2124 0551 (Given - Provider: Keila Adames, SILVER)1046 (Given - Provider: Sharon Wyman RN) 1200 (Given - Provider: Olivia Nguyen, SILVER) oxyCODONE (ROXICODONE) tablet 5 mg 5 mg, oral, Every 6 hours PRN, 2nd line for pain, Starting on Sat09/10/21 at 1042, Indications: Pain 0634 (Given - Provider: Marcia Bal RN)1221 (Given - Provider: Olivia Nguyen, SILVER)1941 (Given - Provider: Brandyn Noble, RN) 0705 (Given - Provider: Brandyn Noble, SILVER) Linked Groups Order Group 1: dextrose gel in packet 15 gJump to med 15 g, oral, Every 15 min PRN, low blood sugar, blood glucose less than 70 mg/dL, Starting on 09/09/21 at 2124, If patient is alert and able to eat/drink, give 15 gm glucose or one juice (4 fluid ounces) NOT ORANGE JUICE. After treatment for hypoglycemia, recheck BG followed by treatment every 15 minutes until the BG is greater than 100 mg/dL. Then check BG 1 hour post-treatment. If BG is less than 100 mg/dL, repeat Q15 minute BG checks and treatment. Call MD for each episode of hypoglycemia., Indications: hypoglycemic disorder Or dextrose (D10W) 10% bolus 250 mLJump to med 250 mL, intravenous, at 1,000 mL/hr, Administer over 15 Minutes, Every 15 min PRN, blood glucose less than 70 mg/dL and UNABLE to swallow/take PO glucose/juice., Starting on 09/09/21 at 2124, After treatment for hypoglycemia, recheck BG followed by treatment every 15 minutes until the BG is greater than 100 mg/dL. Then check BG 1 hour post treatment. If BG is less than 100 mg/dL, repeat Q15 minute BG checks and treatment. Call MD for each episode of hypoglycemia., Indications: hypoglycemic disorder documented in this encounter Orders Medications Ordered That Jorje ht Not Have Been Administered Count Last Ordered Date First Ordered Date ketorolac (TORADOL) 30 mg/mL (1 mL) injection 30 mg 1 09/11/2021 albuterol 2.5 mg/0.5 mL nebu lizer solution 2.5 mg 1 09/09/2021 carBAMazepine (TEGretol) tablet 100 mg 1 dextrose (D10W) 10% bolus 250 mL 1 09/10/19 dextrose gel in packet 15 g 1 09/09/2021 glucagon injection 1 mg 1 09/09/2021 insulin lispro (HumaLOG, ADM ELOG) 100 unit/mL injection 8 Units 1 09/09/2021 INSULIN SUBCUTANEOUS PUMP (N OVOLOG) 100 UNIT/ML INSULIN PUMP INFUSION (NovoLOG) patient supplied pump 0-25 Units 1 09/09/2021 Lab Orders Without Results Count Last Ordered D ate First Ordered Date POCT GLUCOSE DEVICE 11 09/12/2021 09/10/19 22 Diet Count Last Ordered Date First Orde red Date ADULT DISCHARGE DIET 1 09/12/2021 Nursing Count Last Ordered Date First Orde red Date DISCHARGE ACTIVITY 1 09/12/2021 DISCHARGE CALL PROVIDER 7 09/12/2021 WEIGH PATIENT 1 09/09/2021 Consult Count Last Ordered Date First Orde red Date IP CONSULT TO PAIN MANAGEMENT 1 09/12/2021 CONSULT TO ENDOCRINOLOGY DIABETES 1 022 Admission Count Last Ordered Date First Orde red Date ADMIT TO INPATIENT 1 09/09/2021 INITIATE OBSERVATION SERVICES 1 09/09/2021 Discharge Count Last Ordered Date First Orde red Date DISCHARGE PATIENT 1 09/12/2021 documented in this encounter Care Teams Research Coordinator Relationship Specialty Start Date End Date Deedee Low PA PCP - General 03/13/17 documented as of this encounter
--- OUTSIDE RECORDS SUMMARY | 2024-02-24 17:13 | XMS_ITS | Encounter Summary ---
Author Organization [facility] Address [address] [place] [address] Care Team Providers Care Senior Sql Developer Name Role Phone Deedee Low Primary Care Pr ovider Reason for Visit * Reason Comments Diabetes Type 2 Encounter Details Date Type Department Care Team (Late st Contact Info) Description 06/22/2021 1:00 PM CDT Office Visit [facility] Diabetes and Endocrinology [address] [place] [phone] [place] [address] 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 Not on file Not on file Not on file documented as of this encounter Last Filed Vital Signs Vital Sign Reading Time Taken Comments Blood Pressure 128/72 06/22/2021 1:01 PM CDT Pulse 101 06/22/2021 1:01 PM CDT Temperature - - Respiratory Rate 16 06/22/2021 1:01 PM CDT Oxygen Saturation - - Inhaled Oxygen Concentration - - Weight 100.5 kg (221 lb 9.6 oz) 06/22/2021 1:01 PM CDT Height 162.6 cm (5' 4 ) 06/22/2021 1:01 PM CDT Body Mass Index 38.04 06/22/2021 1:01 PM CDT documented in this encounter Patient Instructions * Patient Instructions* Deedee Hussein PA - 06/22/2021 1:00 PM CDT If blood sugars are dropping on the Farxiga, lower the insulin further as needed: If over night or between meals - lower basal rates to: 12a 0.9, 12p 1.1 If dropping after you eat, change your carb ratio to 10 documented in this encounter Ordered Prescriptions Prescription Sig Dispense Quantity Refills Last Filled Start Date End Date dapagliflozin (Farxiga) 10 mg tablet Take 1 tablet (10 mg total) by mouth daily SAMPLE LOT [id number] EXP 10/09/2023 X 1 BX= 7 TABLETS 7 tablet 06/22/2021 2 dapagliflozin (Farxiga) 10 mg tablet Take 1 tablet (10 mg total) by mouth daily Sample lot [id number] exp 10/09/2023 x 1 bx=7 tablets 76 tablet 06/22/2021 2 dapagliflozin (FARXIGA) 10 mg tablet Take 1 tablet (10 mg total) by mouth daily 30 tablet 5 06/22/2021 3 documented in this encounter Progress Notes * Deedee Hussein PA - 06/22/2021 1:00 PM CDT Images from the original note were not included. [facility] Diabetes Follow Up Visit Subjective/Objective Patient ID: Alannah Ruano is a 41 y.o. female who comes in today to our Endocrinology clinic tofollow up for DM management. Chief Complaint Diabetes Type 2 HPI Diabetes complications and/or comorbidity include: s/p gastric sleeve 08/29, h/o gastroparesis. She was in ED on 06/13 for persistent hypoglycemia. This is unusual for her. Current medications: Ozempic 0.5 mg weekly started last visit - but severe GI upset after only a few doses so stopped it. She has continued though on lower insulin settings in pump with good CBG control. Novolog via Omnipod insulin pump Basal 12a 1.1, 12p 1.3 IC 7 SF 20 T 100 Intolerant of GLP1 (GI side effects). Tried SGLT2i over a year ago and tolerated well but insurancedid not cover. Dietary habits: watches, has trouble with appetite - may start a meal and then only be able to eat a bite. Then might have low sugar due to the full aC bolus she gave. Uses extended bolus at most meals b/c then she can stop the delivery if needed. Home CBG monitoring results: dexcom. BG Average: 125 mg/dl with <1% very high, 7% high, and <2% low. Overnight pattern: flat, average runs about 80-90 Postprandial pattern: occasional pC excursions Rare hypoglycemia. Neuropathy: no complaints. Last foot exam: 10/29 Statin therapy: No. Last lipid panel: 06/30 - elevated. Started on atorvastatin recently with PCP. Nephropathy: On MITESH-I / ARB???s: Yes. lisinopril. Last MA: 06/30. Last creat/GFR: 06/30. Retinopathy: Date of last eye examination: 05/30 ([facility]) Wt Readings from Last 3 Encounters: 06/22/21 100.5 kg (221 lb 9.6 oz) 06/01/21 100.2 kg (220 lb 14.4 oz) 03/30/21 101.9 kg (224 lb 8.6 oz) Labs: Last A1c: Recent Labs Lab Units 06/22/21 1307 HEMOGLOBIN A1C 5.2 No lab exists for component: [id number] Component Latest Ref Rng & Units 07/28/2020 08/11/2020 10/27/2020 03/30/2021 Hgb A1C 6.4 6.2 (H) 5.7 5.6 % Lab Results Component Value Date MICROALBUR 18.3 12/07/2019 Lab Results Component Value Date ALBCREATRATU 44 (H) 06/09/2021 Lab Results Component Value Date MALBCRTRAT 173 (H) 12/07/2019 Lipid profile within the last year: Lab Results Component Value Date CHOL 221 (H) 06/09/2021 Lab Results Component Value Date TRIG 124 06/09/2021 Lab Results Component Value Date HDL 33 (L) 06/09/2021 Lab Results Component Value Date LDLCALC 163 (H) 06/09/2021 Review of Systems Constitutional: Negative. Eyes: Negative. Respiratory: Negative. Cardiovascular: Negative. Gastrointestinal: Negative. Endocrine: Negative. Genitourinary: Negative. Skin: Negative. Neurological: Negative. Psychiatric/Behavioral: Negative. Vitals: 06/22/21 1301 BP: 128/72 BP Location: Right arm Patient Position: Sitting Pulse: 101 Resp: 16 Weight: 100.5 kg (221 lb 9.6 oz) Height: 162.6 cm (5' 4 ) [...] hyperglycemia, with long-term current use of insulin ([facility]) ([facility]) (Primary) Assessment & Plan: Chronic problem. Per her history and download [...] with how this is working for her. Orders: - POCT glucose - POCT hemoglobin A1c Insulin pump status Assessment & Plan: Change settings per below: Basal 12a 1.0, 12p 1.2 IC 8 SF 25 T 100 I also wrote down further setting adjustments if sugars drop with SGLT2i despite the changes above.She is comfortable adjusting pump settings on her own as long as someone tells her what to adjust it to. Hypertension associated with diabetes (HCC) Assessment & Plan: Controlled on current medications, no changes. Hyperlipidemia associated with type 2 diabetes mellitus (HCC) Assessment & Plan: Chronic problem. On statin therapy, no changes. BMI 38.0-38.9,adult Morbid obesity (CMS/HCC) (HCC) Assessment & Plan: Chronic problem, improving s/p gastric sleeve. Intolerant of GLP1. Will try lowering insulin dose and adding SGLT2i to see if further benefit. Other orders - dapagliflozin (FARXIGA) 10 mg tablet; Take 1 tablet (10 mg total) by mouth daily DELMER Dong documented in this encounter Miscellaneous Notes * Assessment & Plan Note - Deedee Hussein PA - 06/22/2021 2:28 PM CDT Associated Problem(s): Type 2 diabetes mellitus with hyperglycemia, with long- term current use of insulin ([facility]) Chronic problem. Per her history and download [...] with how this is working for her. * Assessment & Plan Note - Deedee Hussein PA - 06/22/2021 2:27 PM CDT Associated Problem(s): Morbid obesity (HCC) (Resolved 07/25/2022) Chronic problem, improving s/p gastric sleeve. Intolerant of GLP1. Will try lowering insulin dose and adding SGLT2i to see if further benefit. * Assessment & Plan Note - Deedee Hussein PA - 06/22/2021 2:25 PM CDT Associated Problem(s): Mixed hyperlipidemia Chronic problem. On statin therapy, no changes. * Assessment & Plan Note - Deedee Hussein PA - 06/22/2021 2:25 PM CDT Associated Problem(s): Hypertension associated with diabetes (HCC) Controlled on current medications, no changes. * Assessment & Plan Note - Deedee Hussein PA - 06/22/2021 1:38 PM CDT Associated Problem(s): manager costing associated with adverse incidents Change settings per below: Basal 12a 1.0, 12p 1.2 IC 8 SF 25 T 100 I also wrote down further setting adjustments if sugars drop with SGLT2i despite the changes above.She is comfortable adjusting pump settings on her own as long as someone tells her what to adjust it to. * Addendum Note - Yancy Membreno MA - 06/22/2021 1:00 PM CDTAddended by: YANCY MEMBRENO on: 06/22/2021 03:29 PM Modules accepted: Orders documented in this encounter Plan of Treatment Not on file documented as of this encounter Procedures Procedure Name Priority Date/Time Associated Diagnosis Comments POCT HEMOGLOBIN A1C Routine 06/22/2021 1 :07 PM CDT Type 2 diabetes mellitus with hyperglycemia, with long-term current use of insulin ([facility]) ([facility]) POCT GLUCOSE Routine 06/22/2021 1:07 PM CDT Type 2 diabetes mellitus with hyperglycemia, with long-term current use of insulin ([facility]) ([facility]) documented in this encounter Results * POCT hemoglobin A1c (06/22/2021 1:07 PM CDT) Hemoglobin A1C, POC 5.2 Blood specimen (specimen) 06/22/2021 1:07 PM CDT Deedee DOWELL POINT OF CARE TEST ORDE RABLES Final Result * POCT glucose (06/22/2021 1:07 PM CDT) Glucose Blood, POC 96 mg/dL Blood specimen (specimen) 06/22/2021 1:07 PM CDT us Deedee DOWELL POINT OF CARE TEST ORDE RABLES Final Result documented in this encounter Visit Diagnoses Diagnosis Type 2 diabetes mellitus with hyperglycemia, with long-term current use of insulin (HCC)- Primary Insulin pump status Hypertension associated with diabetes ([facility]) Unspecified essential hypertension Hyperlipidemia associated with type 2 diabetes mellitus ([facility]) BMI 38.0-38.9,adult Morbid obesity (HCC) Morbid obesity documented in this encounter Care Teams Senior Sql Developer Relationship Specialty Start Date End Date Deedee Low PA PCP - General 03/13/17 documented as of this encounter
--- OUTSIDE RECORDS SUMMARY | 2024-02-24 17:14 | XMS_ITS | Encounter Summary ---
Author Organization [facility] Address [address] [address] [place] [address] Care Team Providers Care Door To Door Sales Representative Name Role Phone Deedee Low Primary Care Pr ovider Reason for Visit * Reason Comments Diabetes Type 2 Encounter Details Date Type Department Care Team (Late st Contact Info) Description 03/30/2021 1:15 PM EXCEPTIONAL CHILDREN TEACHER Office Visit [facility] Diabetes and Endocrinology [address] [place] [phone] [place] [address] [facility] [address] [place] [address] Type 2 diabetes mellitus with hyperglycemia, with long-term current use of insulin (CMS/HCC) (HCC) (Primary Dx) Social History Tobacco Use Types Packs/Day Years Used Date Smoking Tobacco: Former Smokeless Tobacco: Never Alcohol Use Standard Drinks/Week Comments Yes 0 (1 standard drink = 0.6 oz pur e alcohol) PHQ-2 Answer Date Recorded PHQ-2 Total Score (If total score is 3 or more points, staff should administer the PHQ-9) 1 10/27/2020 Comments No Sex and Gender Information Value Date Recorded Sex Assigned at Not on file Legal Sex Female 10:18 AM EXCEPTIONAL CHILDREN TEACHER Gender Identity Female 09/21/2019 9:02 PM CDT Sexual Orientation Not on file documented as of this encounter Last Filed Vital Signs Vital Sign Reading Time Taken Comments Blood Pressure 132/78 03/30/2021 1:34 PM EXCEPTIONAL CHILDREN TEACHER Pulse 78 03/30/2021 1:34 PM EXCEPTIONAL CHILDREN TEACHER Temperature - - Respiratory Rate 16 03/30/2021 1:34 PM EXCEPTIONAL CHILDREN TEACHER Oxygen Saturation - - Inhaled Oxygen Concentration - - Weight 101.9 kg (224 lb 8.6 oz) 03/30/2021 1:34 PM EXCEPTIONAL CHILDREN TEACHER Height 162.6 cm (5' 4 ) 03/30/2021 1:34 PM EXCEPTIONAL CHILDREN TEACHER Body Mass Index 38.54 03/30/2021 1:34 PM EXCEPTIONAL CHILDREN TEACHER documented in this encounter Patient Instructions * Patient Instructions* Kurt Saini MD - 03/30/2021 1:15 PM EXCEPTIONAL CHILDREN TEACHER BASALS 12AM 1.1 12PM 1.3 IC 7 CF 20 Start Ozempic 0.25 mg weekly x 4 weeks, then continue with 0.5 mg weekly If you have severe nausea, vomiting , abdominal pain and/or diarrhea, stop the medication and call the office. Send me a message in about 3-4 wks if you are tolerating well, before sending the prescription. PTIONAL CHILDREN TEACHER PTIONAL CHILDREN TEACHER documented in this encounter Ordered Prescriptions Prescription Sig Dispense Quantity Refills Last Filled Start Date End Date phentermine (ADIPEX-P) 37.5 mg tablet Take 1 tablet (37.5 mg total) by mouth daily before breakfast 30 tablet 4 03/30/2021 2 documented in this encounter Progress Notes * Kurt Saini MD - 03/30/2021 1:15 PM CST Images from the original note were not included. Subjective/Objective Patient ID: Alannah Ruano is a 41 y.o. female. Chief Complaint Diabetes Type 2 HPI DM Follow up. Diabetes complications and/or comorbidity includes : HyperTG, [place] s/p gastric sleeve 08/2020 Last hba1c : Today Hba1c : Recent Labs Lab Units 03/30/21 1350 HEMOGLOBIN A1C 5.6 % No lab exists for component: [id number] Currently taking : Novolog via Omnipod insulin pump Basal 1.35 units per hour = 76.8 TD basal ?? Bolus: IC 5 SF 15 T 100 BG monitoring : DEXCOM Hypoglycemia : Some nocturnal Exercise plan: walking regularly Diet plan includes: smaller portions, still dealing with increased appetite Lipid profile within the last year : 08/11/2020: Cholesterol 136; HDL 27; Triglycerides 358 Statin therapy : None Renal: currently on MITESH-I / ARB???s with : Lisinopril Microalbumin: No results found for: ALBCREATRATU Lab Results Component Value Date GIANFRANCO 173 (H) 12/07/2019 Review of Systems Constitutional: Negative for activity change and fatigue. HENT: Negative for congestion, hearing loss, trouble swallowing and voice change. Eyes: Negative for redness and visual disturbance. Respiratory: Negative for apnea, cough and chest tightness. Cardiovascular: Negative for chest pain, palpitations and leg swelling. Gastrointestinal: Negative for abdominal distention, abdominal pain, constipation, diarrhea and nausea. Endocrine: Negative for cold intolerance, heat intolerance, polydipsia, polyphagia and polyuria. Genitourinary: Negative for difficulty urinating, frequency and urgency. Musculoskeletal: Negative for arthralgias, back pain, gait problem and neck pain. Skin: Negative for color change. Allergic/Immunologic: Negative for food allergies. Neurological: Negative for dizziness, tremors, syncope, weakness, light- headedness and headaches. Hematological: Negative for adenopathy. Psychiatric/Behavioral: Negative for sleep disturbance. The patient is not nervous/anxious. Physical Exam Constitutional: Appearance: She is well-developed. She is obese. HENT: Head: Normocephalic and atraumatic. Eyes: Conjunctiva/sclera: Conjunctivae normal. Pupils: Pupils are equal, round, and reactive to light. Neck: Thyroid: No thyroid mass or thyromegaly. Trachea: Trachea and phonation normal. Cardiovascular: Rate and Rhythm: Normal rate and regular rhythm. Heart sounds: Normal heart sounds. No murmur heard. Pulmonary: Effort: Pulmonary effort is normal. Breath sounds: Normal breath sounds. Abdominal: General: There is no distension. Palpations: Abdomen is soft. Musculoskeletal: General: Normal range of motion. Skin: General: Skin is warm. Neurological: Mental Status: She is alert and oriented to person, place, and time. Motor: Motor function is intact. Psychiatric: Behavior: Behavior normal. Assessment/Plan Diagnoses and all orders for this visit: Type 2 diabetes mellitus with hyperglycemia, with long-term current use of insulin ([facility]) (HCC) (E11.65, Z79.4) (Primary) Assessment & Plan: Hba1c was Lab Results Component Value Date [...] Ozempic before sending the prescription. Start phentermine. Orders: - POCT glucose - POCT hemoglobin A1c - Albumin Creatinine Ratio, Urine; Future Other orders - phentermine (ADIPEX-P) 37.5 mg tablet; Take 1 tablet (37.5 mg total) by mouth daily before breakfast PTIONAL CHILDREN TEACHER documented in this encounter Procedure Notes * Kurt Saini MD - 03/30/2021 1:15 PM CST Images from the original note were not included. Procedures PTIONAL CHILDREN TEACHER documented in this encounter Miscellaneous Notes * Assessment & Plan Note - Kurt Saini MD - 03/30/2021 4:09 PM CSTAssociated Problem(s): Type 2 diabetes mellitus with hyperglycemia, with long-term current use of insulin ([facility]) Hba1c was Lab Results Component Value Date [...] Ozempic before sending the prescription. Start phentermine. PTIONAL CHILDREN TEACHER * Addendum Note - Esthela Torres - 03/30/2021 1:15 PM CSTAddended by: ESTHELA TORRES on: 06/09/2021 08:38 AM Modules accepted: Orders documented in this encounter Plan of Treatment Not on file documented as of this encounter Procedures Procedure Name Priority Date/Time Associated Diagnosis Comments POCT GLUCOSE Routine 03/30/2021 1:51 PM EXCEPTIONAL CHILDREN TEACHER Type 2 diabetes mellitus with hyperglycemia, with long-term current use of insulin ([facility]) ([facility]) POCT HEMOGLOBIN A1C Routine 03/30/2021 1 :50 PM EXCEPTIONAL CHILDREN TEACHER Type 2 diabetes mellitus with hyperglycemia, with long-term current use of insulin ([facility]) ([facility]) documented in this encounter Results [...] Ur 44(H) 1 - 29 mg/g AILEEN Urine 06/09/2021 8:40 AM CDT 06/09/2021 3:48 PM CDT us Kurt Saini MD LAB URINE ORDERABLES Final Resul t AILEEN ZHAO [address] [place] [address] * POCT glucose (03/30/2021 1:51 PM EXCEPTIONAL CHILDREN TEACHER) Glucose Blood, POC 103 mg/dL Blood specimen (specimen) 03/30/2021 1:51 PM EXCEPTIONAL CHILDREN TEACHER Result Shahana Saini MD POINT OF CARE TEST ORDERABLES Fi nal Result * POCT hemoglobin A1c (03/30/2021 1:50 PM EXCEPTIONAL CHILDREN TEACHER) Hemoglobin A1C, POC 5.6 % Blood specimen (specimen) 03/30/2021 1:50 PM EXCEPTIONAL CHILDREN TEACHER Result Shahana Saini MD POINT OF CARE TEST ORDERABLES Fi nal Result documented in this encounter Visit Diagnoses Diagnosis Type 2 diabetes mellitus with hyperglycemia, with long-term current use of insulin (HCC)- Primary documented in this encounter Discontinued Medications Medication Sig Discontinue Reason Start Date End Da te fenofibrate nanocrystallized (TRICOR) 145 mg tablet fenofibrate nanocrystallized 145 mg tablet Take 1 tablet every day by oral route. Therapy completed 03/30/2021 documented as of this encounter Care Teams Door To Door Sales Representative Relationship Specialty Start Date End Date Deedee Low PA PCP - General 03/13/17 documented as of this encounter
--- OUTSIDE RECORDS SUMMARY | 2024-02-24 17:14 | XMS_ITS | Encounter Summary ---
Author Organization [facility] Address [address] [facility] [address] [place] [address] Care Team Providers Care Pressure Control Supervisor Name Role Phone Deedee Low Primary Care Pr ovider Encounter Details Date Type Department Care Team (Late st Contact Info) Description 09/23/2019 Telephone [facility] [address] [facility] [address] [phone] [place] [address] [facility] [address] [address] Social History Tobacco Use Types Packs/Day Years Used Date Smoking Tobacco: Former Alcohol Use Standard Drinks/Week Comments Yes 0 (1 standard drink = 0.6 oz pur e alcohol) PHQ-2 Answer Date Recorded PHQ-2 Score 0 09/22/2019 Comments Unknown Sex and Gender Information Value Date Recorded Sex Assigned at Not on file Legal Sex Female 10:18 AM DIRECTOR PROJECT MANAGEMENT Gender Identity Female 09/21/2019 9:02 PM CDT Sexual Orientation Not on file documented as of this encounter Miscellaneous Notes * Telephone Encounter - Yoselin Pitts - 09/23/2019 12:14 PM CDT Sofie sent to pharmacy * Telephone Encounter - Yoselin Pitts - 09/23/2019 12:14 PM CDT ----- Message from Kurt Saini MD sent at 09/22/2019 11:50 AM CDT ----- Send rx for Sofie please documented in this encounter Plan of Treatment Not on file documented as of this encounter Visit Diagnoses Not on filedocumented in this encounter Care Teams Pressure Control Supervisor Relationship Specialty Start Date End Date Deedee Low PA PCP - General 03/13/17 documented as of this encounter
--- OUTSIDE RECORDS SUMMARY | 2024-02-24 17:14 | XMS_ITS | Encounter Summary ---
Author Organization [facility] Address [address] [facility] [address] [place] [address] Care Team Providers Care Fabrication Inspector Name Role Phone ZeyadDeedee العلي Aylin DOWELL Primary Care Pr ovider Reason for Visit * Reason Comments Skin Infection Encounter Details Date Type Department Care Team (Late st Contact Info) Description 10/01/2019 1:15 PM CDT Office Visit [facility] [address] [place] [address] [address], [place] [phone] Sergio Rios MD [address] [address] BMI 40.0-44.9, adult (CMS/HCC) (Primary Dx); Recurrent boils; Morbid obesity (CMS/HCC) Social History Tobacco Use Types Packs/Day Years Used Date Smoking Tobacco: Former Alcohol Use Standard Drinks/Week Comments Yes 0 (1 standard drink = 0.6 oz pur e alcohol) PHQ-2 Answer Date Recorded PHQ-2 Score 0 09/22/2019 Comments Unknown Sex and Gender Information Value Date Recorded Sex Assigned at Not on file Legal Sex Female 10:18 AM SAFETY TECHNICIAN Gender Identity Female 09/21/2019 9:02 PM CDT Sexual Orientation Not on file documented as of this encounter Last Filed Vital Signs Vital Sign Reading Time Taken Comments Blood Pressure - - Pulse - - Temperature 36.2 ??C (97.1 ??F) 10/01/2019 1:14 PM CD T Respiratory Rate - - Oxygen Saturation - - Inhaled Oxygen Concentration - - Weight 115 kg (253 lb 9.6 oz) 10/01/2019 1:14 PM CDT Height - - Body Mass Index 43.51 09/22/2019 11:06 AM CDT documented in this encounter Patient Instructions * Patient Instructions* Sergio Rios MD - 10/01/2019 1:15 PM CDT Continue oral doxycycline 100 mg daily for long-term. Return to clinic in 8 months. documented in this encounter Ordered Prescriptions Prescription Sig Dispense Quantity Refills Last Filled Start Date End Date doxycycline (doxycycline) 100 mg capsuleIndications: Skin/Soft Tissue Infection Take 1 tablet/caps ule (100 mg total) by mouth daily 90 tablet/capsule 2 10/01/2019 05/26/2020 documented in this encounter Progress Notes * Sergio Rios MD - 10/01/2019 1:15 PM CDT Subjective/Objective Patient ID: Alannah Ruano is a 39 y.o. female. Chief Complaint Chief Complaint Patient presents with ??? Skin Infection HPI HPI Patient is 39-year-old female history of hypertension diabetes mellitus type 2 depression, morbidlyobese, recurrent boils who recently started suppressive therapy with doxycycline along with topicalmupirocin and Hibiclens. Over the past 4 months patient had 1 outbreaks a small boil but overall doing much better. She reports no side effects with medications. Past Medical History: Diagnosis Date ??? Anxiety ??? Asthma Asthma ??? Back pain ??? Cough ??? Depression ??? Diarrhea ??? Fatigue ??? Headache ??? HX OTHER MEDICAL Migraines ??? Hypercholesterolemia High cholesterol ??? Hypertension ??? Migraines ??? Muscle pain ??? Numbness and tingling ??? Pain with urination ??? Seizure (CMS/HCC) ??? Type 2 diabetes mellitus (CMS/HCC) Social History Socioeconomic History ??? Marital status: Single Spouse name: Not on file ??? Number of children: Not on file ??? Years of education: Not on file ??? Highest education level: Not on file Occupational History ??? Not on file Social Needs ??? Financial resource strain: Not on file ??? Food insecurity Worry: Not on file Inability: Not on file ??? Transportation needs Medical: Not on file Non-medical: Not on file Tobacco Use ??? Smoking status: Former Smoker Substance and Sexual Activity ??? Alcohol use: Yes ??? Drug use: Not on file ??? Sexual activity: Not on file Lifestyle ??? Physical activity Days per week: Not on file Minutes per session: Not on file ??? Stress: Not on file Relationships ??? Social connections Talks on phone: Not on file Gets together: Not on file Attends buddhism service: Not on file Active member of club or organization: Not on file Attends meetings of clubs or organizations: Not on file Relationship status: Not on file ??? Intimate partner violence Fear of current or ex partner: Not on file Emotionally abused: Not on file Physically abused: Not on file Forced sexual activity: Not on file Other Topics Concern ??? Not on file Social History Narrative No alcohol use : (Added by TW Conv) Family History Problem Relation Age of Onset [...] of hypertension - (Added by TW Conv) Review of Systems Constitutional: Negative for fatigue [...] equal, round, and reactive to light. Neck: Musculoskeletal: Normal range of motion. Pulmonary: Effort: Pulmonary effort is normal. Breath sounds: Normal breath sounds. Abdominal: General: Bowel sounds are normal. There is no distension. Palpations: Abdomen is soft. Musculoskeletal: General: No deformity. Skin: General: Skin is warm and dry. Neurological: Mental Status: She is alert and oriented to person, place, and time. Psychiatric: Behavior: Behavior normal. Thought Content: Thought content normal. Judgment: Judgment normal. Temp 36.2 ??C (97.1 ??F) Wt 115 kg (253 lb 9.6 oz) BMI 43.51 kg/m?? Diagnoses and all orders for this visit: BMI 40.0-44.9, adult (CMS/HCC) (Primary) Recurrent boils Morbid obesity (CMS/HCC) Other orders - doxycycline (doxycycline) 100 mg capsule; Take 1 tablet/capsule (100 mg total) by mouth daily Patient is a 39-year-old female history of diabetes mellitus type 2, morbidly obese, here for follow-up after recurrent boils for a few months. She is on suppressive therapy with doxycycline with good response. Patient is satisfied with treatment at this time. We are planning to continue current approach for another 8 months at least. We are going to re-evaluate patient in 8m. documented in this encounter Plan of Treatment Not on file documented as of this encounter Visit Diagnoses Diagnosis BMI 40.0-44.9, adult (HCC)- Primary Recurrent boils Carbuncle and furuncle of unspecified site Morbid obesity (HCC) Morbid obesity documented in this encounter Discontinued Medications Medication Sig Discontinue Reason Start Date End Da te doxycycline (doxycycline) 100 mg capsuleIndications:Skin/S oft Tissue Infection Take 1 tablet/capsule (100 mg total) by mouth daily Reorder 06/04/2019 10/01/2019 documented as of this encounter Care Teams Fabrication Inspector Relationship Specialty Start Date End Date Deedee Low PA PCP - General 03/13/17 documented as of this encounter
--- OUTSIDE RECORDS SUMMARY | 2024-02-24 17:14 | XMS_ITS | Encounter Summary ---
Author Organization [facility] Address [address] [facility] [address] [place] [address] Care Team Providers Care Gas Cutter Name Role Phone JennifermaryDeedee Primary Care Pr ovider Reason for Visit * Reason Onset Date Comments Med Management 04/20/2020 Dash pods Encounter Details Date Type Department Care Team (Late st Contact Info) Description 04/20/2020 Telephone [facility] [place] [facility] [address] [facility] [address] [place] [address] Anyi Ocasio NEUROLOGY PROFESSOR [address] [place], [place] [id number] Med Management (Dash pods) Social History Tobacco Use Types Packs/Day Years Used Date Smoking Tobacco: Former Smokeless Tobacco: Never Alcohol Use Standard Drinks/Week Comments Yes 0 (1 standard drink = 0.6 oz pur e alcohol) PHQ-2 Answer Date Recorded PHQ-2 Total Score (If total score is 3 or more points, staff should administer the PHQ-9) 0 12/25/2019 Comments Unknown Sex and Gender Information Value Date Recorded Sex Assigned at Not on file Legal Sex Female 10:18 AM SCALLOP CUTTER MACHINE Gender Identity Female 09/21/2019 9:02 PM CDT Sexual Orientation Not on file documented as of this encounter Ordered Prescriptions Prescription Sig Dispense Quantity Refills Last Filled Start Date End Date Omnipod Dash 5 Pack Pod cartridgeIndicatio ns:Type 2 diabetes mellitus with hyperglycemia, with long-term current use of insulin (HCC) Change pod daily 90 each 3 04/20/2020 08/25/2021 documented in this encounter Miscellaneous Notes * Telephone Encounter - Anyi Ocasio NP - 04/20/2020 11:09 AM SCALLOP CUTTER MACHINE Sent. sh LOP CUTTER MACHINE * Telephone Encounter - Kate Chauhan - 04/20/2020 7:15 AM CST Incoming fax from [place] requesting prescription for patients pods [facility] [place]. LOP CUTTER MACHINE documented in this encounter Plan of Treatment Not on file documented as of this encounter Visit Diagnoses Diagnosis Type 2 diabetes mellitus with hyperglycemia, with long-term current use of insulin (HCC)- Primary documented in this encounter Care Teams Gas Cutter Relationship Specialty Start Date End Date Deedee Low PA PCP - General 03/13/17 documented as of this encounter
--- OUTSIDE RECORDS SUMMARY | 2024-02-24 17:14 | XMS_ITS | Encounter Summary ---
Author Organization [facility] Address [address] [place] [address] Care Team Providers Care Roll Coverer Name Role Phone ZeyadDeedee العلي Aylin DOWELL Primary Care Pr ovider Reason for Visit * Reason Comments Skin Infection Encounter Details Date Type Department Care Team (Late st Contact Info) Description 05/26/2020 1:00 PM CDT Office Visit [facility] [address] [place] [id number] Sergio Rios MD [address] [address] Type 2 diabetes mellitus with hyperglycemia, with long-term current use of insulin ([facility]) (Primary Dx); Recurrent boils Social History Tobacco Use Types Packs/Day Years [...] on file Legal Sex Female 10:18 AM PARTS ANALYST Gender Identity Female 09/21/2019 9:02 PM CDT Sexual Orientation Not on file documented as of this encounter Last Filed Vital Signs Vital Sign Reading Time Taken Comments Blood Pressure - - Pulse - - Temperature 36.3 ??C (97.3 ??F) 05/26/2020 1:28 PM CD T Respiratory Rate - - Oxygen Saturation - - Inhaled Oxygen Concentration - - Weight 129.5 kg (285 lb 8 oz) 05/26/2020 1:28 PM CDT Height - - Body Mass Index 49.01 2020 9:21 AM PARTS ANALYST documented in this encounter Patient Instructions * Patient Instructions* Sergio Rios MD - 05/26/2020 1:00 PM CDT Continue doxycycline suppressive therapy for another year. Return to clinic in 1 year. documented in this encounter Ordered Prescriptions Prescription Sig Dispense Quantity Refills Last Filled Start Date End Date doxycycline (doxycycline) 100 mg capsuleIndications: Skin/Soft Tissue Infection Take 1 tablet/caps ule (100 mg total) by mouth daily 90 tablet/capsule 3 05/26/2020 06/01/2021 documented in this encounter Progress Notes * Sergio Rios MD - 05/26/2020 1:00 PM CDT Subjective/Objective Patient ID: Alannah Ruano is a 40 y.o. female. Chief Complaint Chief Complaint Patient presents with ??? Skin Infection HPI HPI Patient is a 40-year-old female history of hypertension, diabetes mellitus type 2, morbidly obese, depression, here for follow-up regarding recurrent boils. Patient was started on oral doxycycline for chronic suppressive therapy a year ago. Since then patient reports improvement. She developed 2 or3 outbreaks in the past year which is much better than previously. Patient reports no side effects with the medication and good compliance. She reports increased blood sugars during the outbreaks. Past Medical History: Diagnosis Date ??? Anxiety [...] Former Smoker ??? Smokeless tobacco: Never Used Substance and Sexual Activity ??? Alcohol use: Yes ??? Drug use: Not on file ??? Sexual activity: Not on file Other Topics Concern ??? Not on file Social History Narrative No alcohol use : (Added by TW Conv) Social Determinants of Health Financial Resource Strain: ??? Difficulty of Paying Living Expenses: Food Insecurity: ??? Worried About Running Out of Food in the Last Year: ??? Ran Out of Food in the Last Year: Transportation Needs: ??? Lack of Transportation (Medical): ??? Lack of Transportation (Non-Medical): Physical Activity: ??? Days of Exercise per Week: ??? Minutes of Exercise per Session: Stress: ??? Feeling of Stress : Social Connections: ??? Frequency of Communication with Friends and Family: ??? Frequency of Social Gatherings with Friends and Family: ??? Attends Mandaen Services: ??? Active Member of Clubs or Organizations: ??? Attends Club or Organization Meetings: ??? Marital Status: Intimate Partner Violence: ??? Fear of Current or Ex-Partner: ??? Emotionally Abused: ??? Physically Abused: ??? Sexually Abused: Family History Problem Relation Age of Onset [...] Thought content normal. Judgment: Judgment normal. Temp 36.3 ??C (97.3 ??F) Wt 129.5 kg (285 lb 8 oz) BMI 49.01 kg/m?? Diagnoses and all orders for this visit: Type 2 diabetes mellitus with hyperglycemia, with long-term current use of insulin ([facility]) (Primary) Recurrent boils Other orders - doxycycline (doxycycline) 100 mg capsule; Take 1 tablet/capsule (100 mg total) by mouth daily Patient is a 40-year-old female with history of diabetes mellitus type 2, morbidly obese, here for follow-up regarding recurrent boils possibly secondary to staphylococcal infections. Patient startedon suppressive therapy with oral doxycycline with good response. The frequency of the outbreaks have significantly decreased. Elevation in the blood sugars during the outbreak most likely associated with response to infection. I recommended to discuss need to increase insulin dose with his primary care doctor. I believe doxycycline is working properly. We are going to continue with this approach for another year. documented in this encounter Plan of Treatment Not on file documented as of this encounter Visit Diagnoses Diagnosis Type 2 diabetes mellitus with hyperglycemia, with long-term current use of insulin ([facility])- Primary Recurrent boils Carbuncle and furuncle of unspecified site documented in this encounter Discontinued Medications Medication Sig Discontinue Reason Start Date End Da te doxycycline (doxycycline) 100 mg capsuleIndications:Skin/S oft Tissue Infection Take 1 tablet/capsule (100 mg total) by mouth daily Reorder 10/01/2019 05/26/2020 documented as of this encounter Care Teams Roll Coverer Relationship Specialty Start Date End Date Deedee Low PA PCP - General 03/13/17 documented as of this encounter
--- OUTSIDE RECORDS SUMMARY | 2024-02-24 17:14 | XMS_ITS | Encounter Summary ---
Author Organization [facility] Care Team Providers Care Food Court Team Member Name Role Phone Unavailable Primary Care Provider Unavailabl e Encounter Details Date Type Department Care Team (Latest Contact Info) Description 03/15/2009 3:24 PM LAP POLISHER - 03/15/2009 6:07 PM LAP POLISHER Hospital Encounter [facility] Dax Durham MD [address] [place] [address] Other type of migraine; Disturbance of skin sensation; Visual discomfort; Benign intracranial hypertension Social History Tobacco Use Types Packs/Day Years Used Date Smoking Tobacco: Never Assessed Comments Unknown Sex and Gender Information Value Date Recorded Sex Assigned at Not on file Legal Sex Female 10:18 AM LAP POLISHER Gender Identity Female 09/21/2019 9:02 PM CDT Sexual Orientation Not on file documented as of this encounter Plan of Treatment Not on file documented as of this encounter Visit Diagnoses Diagnosis Other type of migraine Disturbance of skin sensation Visual discomfort Benign intracranial hypertension documented in this encounter
--- OUTSIDE RECORDS SUMMARY | 2024-02-24 17:14 | XMS_ITS | Encounter Summary ---
Author Organization [facility] Medical [facility] Address [address] [place] [address] Care Team Providers Care Lawn Care Worker Name Role Phone JennifermaryDeedee Primary Care Pr ovider Reason for Visit * Reason Comments Diabetes Type 2 Encounter Details Date Type Department Care Team (Latest Contact Info) Description 2020 9:15 AM MATERIAL LOADER [facility] [address] [address] Anyi Ocasio, VETERINARY SURGERY TECHNOLOGIST [address] [place] [address] Type 2 diabetes mellitus with hyperglycemia, with long-term current use of insulin ([facility]) (Primary Dx); Insulin pump status; Hypertension associated with diabetes (CMS/HCC); Hyperlipidemia associated with type 2 diabetes mellitus (CMS/HCC); BMI 40.0-44.9, adult (CMS/HCC) Social History Tobacco Use Types Packs/Day [...] on file Legal Sex Female 10:18 AM MATERIAL LOADER Gender Identity Female 09/21/2019 9:02 PM CDT Sexual Orientation Not on file documented as of this encounter Last Filed Vital Signs Vital Sign Reading Time Taken Comments Blood Pressure 144/88 2020 9:21 AM MATERIAL LOADER Pulse 103 2020 9:21 AM MATERIAL LOADER Temperature - - Respiratory Rate 16 2020 9:21 AM MATERIAL LOADER Oxygen Saturation - - Inhaled Oxygen Concentration - - Weight 125.5 kg (276 lb 9.6 oz) 2020 9:21 AM MATERIAL LOADER Height 162.6 cm (5' 4 ) 2020 9:21 AM MATERIAL LOADER Body Mass Index 47.48 2020 9:21 AM MATERIAL LOADER documented in this encounter Ordered Prescriptions Prescription Sig Dispense Quantity Refills Last Filled Start Date End Date dexAMETHasone (DECADRON) 1 mg tablet Take 1 tablet when directed 1 tablet 1 2020 documented in this encounter Progress Notes * Anyi Ocasio, VETERINARY SURGERY TECHNOLOGIST - 2020 9:15 AM CST Images from the original note were not included. Subjective/Objective Patient ID: Alannah Ruano is a 40 y.o. female. Chief Complaint Diabetes Type 2 T2DM Has also asked about potential for adrenal insufficiency d/t sx. We attempted to contact her to do dexamethasone suppression test but were not able to reach her. Current medication: Novolog via Omnipod insulin pump Basal 3.0 units per hour = 72 TD basal Bolus: IC 5 SF 15 T 100 AI 5 . She has gastroparesis and also instructed on how to extend bolus for this. Basal 53% Bolus 47% HBGM: Has CGM. See procedure note. Diet: entering 160-250+ grams carb per day Exercise: Last A1c: Lab Results Component Value Date HGBA1C 8.0 (A) 12/2019 Last MA: Lab Results Component Value Date MICROALBUR 18.3 12/07/2019 On ACEI Last lipids:Lab Results Component Value Date CHOL 183 12/07/2019 Lab Results Component Value Date TRIG 401 (H) 12/07/2019 Lab Results Component Value Date HDL 32 (L) 12/07/2019 No results found for: LDLCALC Last eye exam: NA Last foot exam: 09/2019 2) HTN-lisinopril, propranolol 3) HLD-fenofibrate 4) Morbid obesity-BMI 47 Review of Systems Constitutional: Negative for appetite change and fatigue. Eyes: Negative for visual disturbance. Respiratory: Negative. Cardiovascular: Negative for chest pain, palpitations and leg swelling. Gastrointestinal: Negative for diarrhea, nausea and vomiting. Endocrine: Negative for polydipsia, polyphagia and polyuria. Genitourinary: Negative. Musculoskeletal: Negative. Allergic/Immunologic: Negative for environmental allergies and food allergies. Neurological: Negative for dizziness, weakness and headaches. Psychiatric/Behavioral: Negative. All other systems reviewed and are negative. Physical Exam Constitutional: General: She is not in acute distress. Appearance: She is well-developed. She is morbidly obese. HENT: Head: Normocephalic and atraumatic. Right Ear: Hearing normal. Left Ear: Hearing normal. Eyes: Conjunctiva/sclera: Conjunctivae normal. Cardiovascular: Rate and Rhythm: Normal rate and regular rhythm. Heart sounds: Normal heart sounds. Pulmonary: Effort: No respiratory distress. Breath sounds: Normal breath sounds. Skin: General: Skin is warm and dry. Findings: No bruising. Comments: Multiple abd stria, no redness noted. States they were red until she started using a cream on them nightly 1 year ago. No bruising noted. Connors facies noted. Cervical fat pad noted. Neurological: Mental Status: She is alert and oriented to person, place, and time. Psychiatric: Behavior: Behavior normal. Thought Content: Thought content normal. Judgment: Judgment normal. Assessment/Plan Diagnoses and all orders for this visit: Type 2 diabetes mellitus with hyperglycemia, with long-term current use of insulin ([facility]) (E11.65, Z79.4) (Primary) Assessment & Plan: A1c 6.7. Basal pattern above goal. Will increase basal rate. Will additionally order dexamethasone suppression test to r/o Mary's as this might also be impacting glycemic control. Conferred with Dr. Parveen VIRGEN to order Orders: - POCT glucose - POCT hemoglobin A1c - DEXAMETHASONE SUPPRESSION TEST (DST), 1 SPECIMEN; Future Insulin pump status (Z96.41) Assessment & Plan: Increase basal to 3.2 Hypertension associated with diabetes ([facility]) (E11.59, I10) Assessment & Plan: Monitor home BP. Hyperlipidemia associated with type 2 diabetes mellitus ([facility]) (E11.69, E78.5) Assessment & Plan: At goal on current medications. Continue statin therapy. BMI 40.0-44.9, adult ([facility]) (Z68.41) Assessment & Plan: Wt. Continues to increase. Importance of following diet and exercising discussed. Other orders - dexAMETHasone (DECADRON) 1 mg tablet; Take 1 tablet when directed RIAL LOADER documented in this encounter Procedure Notes * Anyi Ocasio NP - 2020 9:15 AM CST Images from the original note were not included. Procedures CGM Evaluation Sensor- Dexcom G6 % of wear 99% Low alert 80 Sloan alert 300 BG Average 206 % above goal 70% A: Pattern entire basal pattern above goal. P: Increase basal to 3.2 and if FBG > 150 after one week, increase to 3.4 RIAL LOADER documented in this encounter Miscellaneous Notes * Assessment & Plan Note - Anyi Ocasio NP - 03/26/2020 10:30 PM MATERIAL LOADER Associated Problem(s): BMI 38.0-38.9,adult Wt. Continues to increase. Importance of following diet and exercising discussed. RIAL LOADER * Assessment & Plan Note - Anyi Ocasio NP - 03/26/2020 10:26 PM MATERIAL LOADER Associated Problem(s): Type 2 diabetes mellitus with hyperglycemia, with long- term current use of insulin ([facility]) A1c 6.7. Basal pattern above goal. Will increase basal rate. Will additionally order dexamethasone suppression test to r/o Mary's as this might also be impacting glycemic control. Conferred with Dr. Parveen VIRGEN to order RIAL LOADER RIAL LOADER RIAL LOADER * Assessment & Plan Note - Anyi Ocasio NP - 03/26/2020 10:25 PM MATERIAL LOADER Associated Problem(s): Hypertension associated with diabetes (HCC) Monitor home BP. RIAL LOADER * Assessment & Plan Note - Anyi Ocasio NP - 03/26/2020 10:24 PM MATERIAL LOADER Associated Problem(s): Mixed hyperlipidemia At goal on current medications. Continue statin therapy. 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 Importance of following diet and exercising discussed. RIAL LOADER documented in this encounter Plan of Treatment Not on file documented as of this encounter Procedures Procedure Name Priority Date/Time Associated Diagnosis Comments DEXAMETHASONE SUPPRESSION TEST (DST), 1 SPECIMEN Routine 07/26/2020 8:49 AM CDT Type 2 diabetes mellitus with hyperglycemia, with long-term current use of insulin ([facility]) POCT HEMOGLOBIN A1C Routine 2020 9 :22 AM MATERIAL LOADER Type 2 diabetes mellitus with hyperglycemia, with long-term current use of insulin ([facility]) POCT GLUCOSE Routine 2020 9:22 AM MATERIAL LOADER Type 2 diabetes mellitus with hyperglycemia, with long-term current use of insulin ([facility]) documented in this encounter Results * DEXAMETHASONE SUPPRESSION TEST (DST), 1 SPECIMEN (07/26/2020 8:49 AM CDT) Cortisol 0.6 mcg/dL [employer] l[facility] Comment: Dexamethasone Suppression Test For 8 a.m. Specimen: ?? <2.0 - Normal Response ? 2.0-10.0 - Equivocal ? >10.0 - High probability of ? [place]'s Syndrome Further diagnostic tests must be performed to confirm the diagnosis and determine etiology. Values >2.0 mcg/dL can be seen in endogenous depression and pseudo-Mary's (alcoholism). Blood specimen (specimen) 07/26/2020 8:49 AM CDT 07/26/2020 8:50 AM CDT Narrative [facility] - 07/27/2020 1:28 AM CDT FASTING:NO FASTING: NO Anyi Ocasio NP LAB BLOOD ORDERABLES Final R esult [facility] [address] [place] [address] * (ABNORMAL) POCT hemoglobin A1c (2020 9:22 AM MATERIAL LOADER) Hemoglobin A1C, POC 6.7(A) 4.0 - 6.0 Blood specimen (specimen) 2020 9:22 AM MATERIAL LOADER Anyi Ocasio VETERINARY SURGERY TECHNOLOGIST POINT OF CARE TEST ORDERABLE S Final Result * (ABNORMAL) POCT glucose (2020 9:22 AM MATERIAL LOADER) Glucose Blood, POC 182(A) 70 - 140 mg/dL Blood specimen (specimen) 2020 9:22 AM MATERIAL LOADER Anyi Ocasio VETERINARY SURGERY TECHNOLOGIST POINT OF CARE TEST ORDERABLE S Final Result documented in this encounter Visit Diagnoses Diagnosis Type 2 diabetes mellitus with hyperglycemia, with long-term current use of insulin (HCC)- Primary Insulin pump status Hypertension associated with diabetes (HCC) Unspecified essential hypertension Hyperlipidemia associated with type 2 diabetes mellitus (HCC) BMI 40.0-44.9, adult (HCC) documented in this encounter Discontinued Medications Medication Sig Discontinue Reason Start Date End Da te flash glucose sensor (FreeStyle Sofie 2 Sensor) kit Apply one new sensor q 14 days 12/25/2019 2020 documented as of this encounter Care Teams Lawn Care Worker Relationship Specialty Start Date End Date Deedee Low PA PCP - General 03/13/17 documented as of this encounter
--- OUTSIDE RECORDS SUMMARY | 2024-02-24 17:14 | XMS_ITS | Encounter Summary ---
Author Organization [facility] Address [address] [place] [address] Care Team Providers Care Barbering Teacher Name Role Phone Deedee Low Primary Care Pr ovider Encounter Details Date Type Department Care Team (Late st Contact Info) Description 11/05/2020 Orders Only [facility] [address] [place] [phone] [place] [address] [place] [address] Type 2 diabetes mellitus with other specified complication, with long-term current use of insulin (HCC) (Primary Dx) Social History Tobacco Use Types Packs/Day Years Used Date Smoking Tobacco: Former Smokeless Tobacco: Never Alcohol Use Standard Drinks/Week Comments Yes 0 (1 standard drink = 0.6 oz pur e alcohol) PHQ-2 Answer Date Recorded PHQ-2 Total Score (If total score is 3 or more points, staff should administer the PHQ-9) 1 10/27/2020 Comments Unknown Sex and Gender Information Value Date Recorded Sex Assigned at Not on file Legal Sex Female 10:18 AM FLOUR INSPECTOR Gender Identity Female 09/21/2019 9:02 PM CDT Sexual Orientation Not on file documented as of this encounter Plan of Treatment Not on file documented as of this encounter Visit Diagnoses Diagnosis Type 2 diabetes mellitus with other specified complication, with long-term current use of insulin (HCC)- Primary documented in this encounter Care Teams Barbering Teacher Relationship Specialty Start Date End Date Deedee Low PA PCP - General 03/13/17 documented as of this encounter
--- OUTSIDE RECORDS SUMMARY | 2024-02-24 17:14 | XMS_ITS | Encounter Summary ---
Author Organization [facility] Address [address] [place] [address] Care Team Providers Care Flooring Installer Name Role Phone JennifermaryDeedee Primary Care Pr ovider Reason for Visit * Reason Onset Date Comments Med Refill 11/09/2019 Encounter Details Date Type Department Care Team (Late st Contact Info) Description 11/09/2019 Telephone [facility] [address], [place] [address] [place] [address], [place] [address] Med Refill Social History Tobacco Use Types Packs/Day Years Used Date Smoking Tobacco: Former Smokeless Tobacco: Never Alcohol Use Standard Drinks/Week Comments Yes 0 (1 standard drink = 0.6 oz pur e alcohol) PHQ-2 Answer Date Recorded PHQ-2 Score 0 09/22/2019 Comments Unknown Sex and Gender Information Value Date Recorded Sex Assigned at Not on file Legal Sex Female 10:18 AM ENGRAVER LETTERING Gender Identity Female 09/21/2019 9:02 PM CDT Sexual Orientation Not on file documented as of this encounter Ordered Prescriptions Prescription Sig Dispense Quantity Refills Last Filled Start Date End Date insulin detemir U-100 (Levemir FlexTouch U-100 Insuln) 100 unit/mL (3 mL) insulin pen Inject 50 Units under the skin nightly 15 pen 11/09/2019 0 documented in this encounter Miscellaneous Notes * Addendum Note - Jim Pitts - 11/09/2019 4:27 PM CDTAddended by: JIM PITTS on: 11/09/2019 04:27 PM Modules accepted: Orders * Telephone Encounter - Jim Pitts - 11/09/2019 4:26 PM CDT antonio 10/29/19 Nov 12/10/19 Refill * Telephone Encounter - Kurt Saini MD - 11/09/2019 3:02 PM CDT Send rx please * Telephone Encounter - Colin Babb - 11/09/2019 2:05 PM CDT The patient has called the office to request the prescription(s): Medication/Dosage: Levemir 41u BID Out of Medication: Yes Rx day: 30 day rx with refills Pharmacy: [facility] This is the 1st rx for FR documented in this encounter Plan of Treatment Not on file documented as of this encounter Visit Diagnoses Not on filedocumented in this encounter Care Teams Flooring Installer Relationship Specialty Start Date End Date Deedee Low PA PCP - General 03/13/17 documented as of this encounter
--- OUTSIDE RECORDS SUMMARY | 2024-02-24 17:14 | XMS_ITS | Encounter Summary ---
Author Organization [facility] Address [address] [place] [address] Phone Care Team Providers Care Cdl Bulk Driver Name Role Phone Deedee Low Primary Care Pr ovider Reason for Visit * Reason Onset Date Comments new pt appt req 05/05/2021 Encounter Details Date Type Department Care Team (Late st Contact Info) Description 05/05/[address] [facility] [address] [place], [place] [id number] Miscellaneous, Not In File new pt appt req Social History Tobacco Use Types Packs/Day Years [...] file Legal Sex Female 10:18 AM PARTS IDENTIFIER Gender Identity Female 09/21/2019 9:02 PM CDT Sexual Orientation Not on file documented as of this encounter Miscellaneous Notes * Telephone Encounter - Gia Baldwin - 05/08/2021 4:12 PM PARTS IDENTIFIER Referring notes received and reviewed. Called patient to schedule- New patient scheduled with Dr. Zurita on 05/24/2021 +testing HVF/OCT Instructed patient to bring outside imaging on a disc to their appointment if applicable. Patient aware of location and 3hr +/- appointment. Sent mychart S IDENTIFIER * Telephone Encounter - Carey Jolly COA - 05/05/2021 11:45 AM PARTS IDENTIFIER Notes in media S IDENTIFIER * Telephone Encounter - Ulysses Albright - 05/05/2021 9:53 AM CST New PT APPT Request: Who pt is being referred to: Neuro Op Reason/Diagnoses: visual disturances, severely constricted visual field, near total field loss, OU Referring doctor: Dr. Cody Seth Referring doctor contact information: [phone] How soon: 1 mon Transfer of care or 2nd opinion? transfer Were notes requested? yes Additional comments: Contact pt for scheduling following review, . S IDENTIFIER documented in this encounter Plan of Treatment Not on file documented as of this encounter Visit Diagnoses Not on filedocumented in this encounter Care Teams Cdl Bulk Driver Relationship Specialty Start Date End Date Deedee Low PA PCP - General 03/13/17 documented as of this encounter
--- OUTSIDE RECORDS SUMMARY | 2024-02-24 17:14 | XMS_ITS | Encounter Summary ---
Author Organization [facility] Address [address] [place] [address] Care Team Providers Care Sand Hauler Name Role Phone Deedee Low Primary Care Pr ovider Reason for Visit * Reason Comments Diabetes Type 2 Encounter Details Date Type Department Care Team (Latest Contact Info) Description 10/27/2020 1:00 PM CDT [facility] Of [address] [address] Anyi Ocasio, FIBERGLASS FABRICATOR [address] [place] [address] Type 2 diabetes mellitus with hyperglycemia, with long-term current use of insulin (CMS/HCC) (HCC) (Primary Dx); Insulin pump status; BMI 40.0-44.9, adult (CMS/HCC) (HCC); Hypertension associated with diabetes (HCC); Hyperlipidemia associated [...] on file Legal Sex Female 10:18 AM KNOCK OUT HAND Gender Identity Female 09/21/2019 9:02 PM CDT Sexual Orientation Not on file documented as of this encounter Last Filed Vital Signs Vital Sign Reading Time Taken Comments Blood Pressure 110/70 10/27/2020 12:58 PM CDT Pulse 80 10/27/2020 12:58 PM CDT Temperature - - Respiratory Rate 12 10/27/2020 12:5 8 PM CDT Oxygen Saturation - - Inhaled Oxygen Concentration - - Weight 110.3 kg (243 lb 3.2 oz) 021 12:58 PM CDT Height 162.6 cm (5' 4.02 ) 10/27/2020 1 2:58 PM CDT Body Mass Index 41.72 10/27/2020 12:58 PM CDT documented in this encounter Progress Notes * Anyi Ocasio, SOPHIA - 10/27/2020 1:00 PM CDT Images from the original note were not included. Subjective/Objective Patient ID: Alannah Ruano is a 40 y.o. female. Chief Complaint Diabetes Type 2 T2DM Gastric sleeve 09/07 at [facility] in [place] Current medication: Current medication: Novolog via Omnipod insulin pump Basal 3.2 units per hour = 76.8 TD basal Bolus: IC 5 SF 15 T 100-180 She did create a second basal since surgery of 1.35 = TDB 32.4 HBGM: Has CGM. See procedure note. Diet: just recently advanced to soft foods. Still not a lot of carbs. Reporting that she is trying to avoid binge eating as appetite increases. Exercise: started back to treadmill but stopped d/t large ketones in urine. No s/s of DKA. PCP thought may be due to lower carb diet coupled with increased exercise Last A1c: Lab Results Component Value Date HGBA1C 6.2 (H) 08/11/2020 Last MA: On ACEI Last lipids:Lab Results Component Value Date CHOL 136 08/11/2020 Lab Results Component Value Date TRIG 358 (H) 08/11/2020 Lab Results Component Value Date HDL 27 (L) 08/11/2020 LDL CALC 66 Last eye exam: NA Last foot exam: 09/2019 2) HTN-lisinopril, propranolol 3) HLD-fenofibrate 4) Morbid obesity-BMI 41 down from 47 Review of Systems Constitutional: Negative for [...] respiratory distress. Breath sounds: Normal breath sounds. Feet: Right Foot: Monofilament exam: normal. Protective Sensation: 6 sites tested. 6 sites sensed. Skin Integrity: Negative for ulcer or blister. Left Foot: Monofilament exam: normal. Protective Sensation: 6 sites tested. 6 sites sensed. Skin Integrity: Negative for ulcer or blister. Skin: General: Skin is warm and dry. Findings: No bruising. Neurological: Mental Status: She is alert and oriented to person, place, and time. Psychiatric: Behavior: Behavior normal. Thought Content: Thought content normal. Judgment: Judgment normal. Assessment/Plan Diagnoses and all orders for this visit: Type 2 diabetes mellitus with hyperglycemia, with long-term current use of insulin ([facility]) ([facility]) (E11.65, Z79.4) (Primary) Assessment & Plan: A1c 5.7 without hypoglycemia. Advised to check urine at home for ketones and strive to keep at trace to small. Add more carb to diet and increase exercise more slowly. BG goals ac and pc reviewed. Consider GLP1 at NOV once ketones resolved. Orders: - POCT glucose - POCT hemoglobin A1c Insulin pump status (Z96.41) Assessment & Plan: Change correction target to 150. Advised to adjust basal rates to keep BG in low 100's as continuesto lose wt. BMI 40.0-44.9, adult ([facility]/HCC) (HCC) (Z68.41) Assessment & Plan: Continue recommendations from surgeon Hypertension associated with diabetes ([facility]) (E11.59, I15.2) Assessment & Plan: Controlled on current medications. Continue plan. Hyperlipidemia associated with type 2 diabetes mellitus (HCC) (E11.69, E78.5) Assessment & Plan: At goal on current medications. Continue statin therapy. documented in this encounter Miscellaneous Notes * Assessment & Plan Note - Anyi Ocasio NP - 10/27/2020 3:04 PM CDT Associated Problem(s): Mixed hyperlipidemia At goal on current medications. Continue statin therapy. * Assessment & Plan Note - Anyi Ocasio NP - 10/27/2020 3:04 PM CDT Associated Problem(s): Hypertension associated with diabetes ([facility]) Controlled on current medications. Continue plan. 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 Advised to adjust basal rates to keep BG in low 100's as continuesto lose wt. * Assessment & Plan Note - Anyi Ocasio NP - 10/27/2020 3:00 PM CDT Associated Problem(s): Type 2 diabetes mellitus with hyperglycemia, with long- term current use of insulin ([facility]) A1c 5.7 without hypoglycemia. Advised to check urine at home for ketones and strive to keep at trace to small. Add more carb to diet and increase exercise more slowly. BG goals ac and pc reviewed. Consider GLP1 at NOV once ketones resolved. documented in this encounter Plan of Treatment Not on file documented as of this encounter Procedures Procedure Name Priority Date/Time Associated Diagnosis Comments POCT HEMOGLOBIN A1C Routine 10/27/2020 1 :10 PM CDT Type 2 diabetes mellitus with hyperglycemia, with long-term current use of insulin ([facility]) ([facility]) POCT GLUCOSE Routine 10/27/2020 1:06 PM CDT Type 2 diabetes mellitus with hyperglycemia, with long-term current use of insulin ([facility]) ([facility]) documented in this encounter Results * POCT hemoglobin A1c (10/27/2020 1:10 PM CDT) Hemoglobin A1C, POC 5.7 Blood specimen (specimen) 10/27/2020 1:10 PM CDT Anyi Ocasio NP POINT OF CARE TEST ORDERABLE S Final Result * POCT glucose (10/27/2020 1:06 PM CDT) Glucose Blood, POC 91 mg/dL Blood specimen (specimen) 10/27/2020 1:06 PM CDT Anyi Ocasio FIBERGLASS FABRICATOR POINT OF CARE TEST ORDERABLE S Final Result documented in this encounter Visit Diagnoses Diagnosis Type 2 diabetes mellitus with hyperglycemia, with long-term current use of insulin (HCC)- Primary Insulin pump status BMI 40.0-44.9, adult (HCC) Hypertension associated with diabetes (HCC) Unspecified essential hypertension Hyperlipidemia associated with type 2 diabetes mellitus (HCC) documented in this encounter Discontinued Medications Medication Sig Discontinue Reason Start Date End Da te dexAMETHasone (DECADRON) 1 mg tablet Take 1 tablet when directed Therapy completed 2020 10/27/2020 atorvastatin (LIPITOR) 40 mg tablet Take 1 tablet (40 mg total) by mouth daily Therapy completed 07/28/2020 10/27/2020 empagliflozin (JARDIANCE) 25 mg tabletIndications:type 2 diabetes mellitus Take 1 tablet (25 mg total) by mouth daily Therapy completed 07/28/2020 10/27/2020 Motegrity 2 mg tablet TAKE 1 TABLET BY MOUTH EVERY DAY Therapy completed 06/06/2020 10/27/2020 documented as of this encounter Care Teams Sand Hauler Relationship Specialty Start Date End Date Deedee Low PA PCP - General 03/13/17 documented as of this encounter
--- OUTSIDE RECORDS SUMMARY | 2024-02-24 17:14 | XMS_ITS | Encounter Summary ---
Author Organization [facility] Address [address] [place] [address] Care Team Providers Care Cut Off Machine Unloader Name Role Phone JennifermaryDeedee Primary Care Pr ovider Reason for Visit * Reason Onset Date Comments Med Management 10/25/2020 phentermine Encounter Details Date Type Department Care Team (Late st Contact Info) Description 10/25/2020 Telephone [facility] [id number] [place] [address] [address] [address] [place] Sain[place] MD [id number] [place] [address] [address] [address] Med Management (phentermine) Social History Tobacco Use Types Packs/Day Years [...] on file Legal Sex Female 10:18 AM C 13 CATAPULT OPERATOR Gender Identity Female 09/21/2019 9:02 PM CDT Sexual Orientation Not on file documented as of this encounter Miscellaneous Notes * Telephone Encounter - Kurt Saini MD - 10/25/2020 12:32 PM CDT She is coming on the so will discuss that day * Telephone Encounter - Kate Chauhan - 10/25/2020 8:27 AM CDT Last appointment 07/28/2020 Next appointment 10/27/2020 Incoming fax from pharmacy requesting refill on phentermine. Medication not on list so if discontinued it was canceled at the pharmacy. documented in this encounter Plan of Treatment Not on file documented as of this encounter Visit Diagnoses Not on filedocumented in this encounter Care Teams Cut Off Machine Unloader Relationship Specialty Start Date End Date Deedee Low PA PCP - General 03/13/17 documented as of this encounter
--- OUTSIDE RECORDS SUMMARY | 2024-02-24 17:14 | XMS_ITS | Encounter Summary ---
Author Organization [facility] Address [address] [place] [address] Care Team Providers Care Cyber Security Engineer Name Role Phone Zeyadseveriano Deedee DOWELL Primary Care Pr ovider Encounter Details Date Type Department Care Team (Late st Contact Info) Description 07/22/2020 Orders Only [facility] Cardiology [address] [place] [address] Romie Parkinson MD [address] [id number] Social History Tobacco Use Types Packs/Day Years [...] on file Legal Sex Female 10:18 AM 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 Gender Identity Female 09/21/2019 9:02 PM CDT Sexual Orientation Not on file documented as of this encounter Plan of Treatment Not on file documented as of this encounter Procedures Procedure Name Priority Date/Time Associated Diagnosis Comments CARDIOLOGY DOCUMENT SCAN Routine 07/22/2020 documented in this encounter Results * SCAN - CARDIOLOGY (07/22/2020) Anatomical Region Laterality Modality Other us Romie Parkinson MD [facility] Final Result documented in this encounter Visit Diagnoses Not on filedocumented in this encounter Care Teams Cyber Security Engineer Relationship Specialty Start Date End Date Deedee Low PA PCP - General 03/13/17 documented as of this encounter
--- OUTSIDE RECORDS SUMMARY | 2024-02-24 17:14 | XMS_ITS | Encounter Summary ---
Author Organization [facility] Address [address] [place] [address] Care Team Providers Care Oil Pumper Name Role Phone JennifermaryDeedee Primary Care Pr ovider Reason for Visit * Reason Comments Diabetes Type 2 Encounter Details Date Type Department Care Team (Latest Contact Info) Description 12/10/2019 10:00 AM CDT [facility] Of [address] [address] Anyi Ocasio, DOG WARDEN [address] [place] [address] Type 2 diabetes mellitus with hyperglycemia, with long-term current use of insulin (CMS/HCC) (Primary Dx); Hypertension associated with diabetes (CMS/HCC); Hyperlipidemia associated with type 2 diabetes mellitus (CMS/HCC); Morbid obesity (CMS/HCC) Social History Tobacco Use Types Packs/Day Years Used Date Smoking Tobacco: Former Smokeless Tobacco: Never Alcohol Use Standard Drinks/Week Comments Yes 0 (1 standard drink = 0.6 oz pur e alcohol) PHQ-2 Answer Date Recorded PHQ-2 Score 0 09/22/2019 Comments Unknown Sex and Gender Information Value Date Recorded Sex Assigned at Not on file Legal Sex Female 10:18 AM DATA KEYER Gender Identity Female 09/21/2019 9:02 PM CDT Sexual Orientation Not on file documented as of this encounter Last Filed Vital Signs Vital Sign Reading Time Taken Comments Blood Pressure 108/74 12/10/2019 10:21 AM CDT Pulse - - Temperature - - Respiratory Rate 12 12/10/2019 10:21 AM CDT Oxygen Saturation - - Inhaled Oxygen Concentration - - Weight 120.7 kg (266 lb) 12/10/2019 10:21 AM CDT Height 162.6 cm (5' 4 ) 12/10/2019 10:21 AM CDT Body Mass Index 45.66 12/10/2019 10:21 AM CDT documented in this encounter Patient Instructions * Patient Instructions* Anyi Ocasio NP - 12/10/2019 10:00 AM CDT Your A1c has come down to 8.0. documented in this encounter Progress Notes * Anyi Ocasio NP - 12/10/2019 10:00 AM CDT Images from the original note were not included. Subjective/Objective Patient ID: Alannah Ruano is a 39 y.o. female. Chief Complaint Diabetes Type 2 T2DM dx 3 years ago Current medication: Levemir up to 52 units bid Novolog 10 units tid plus CF 4:50>150 starting at 12 units HBGM: Has CGM. See procedure note. Diet: Has seen RD. + starch portions Exercise: mild walking. Not consistent Last A1c: Lab Results Component Value Date HGBA1C 11.0 09/2019 Last MA: Lab Results Component Value Date MICROALBUR 18.3 12/07/2019 Last lipids:Lab Results Component Value Date CHOL 183 12/07/2019 Lab Results Component Value Date TRIG 401 (H) 12/07/2019 Lab Results Component Value Date HDL 32 (L) 12/07/2019 No results found for: LDLCALC Last eye exam: NA Last foot exam: 09/2019 2) HTN-lisinopril 20 3) HLD-fenofibrate 4) Morbid obesity-BMI 45. Taking topiramate. Phentermine was stopped wasn't working States she was being worked up for [place]'s by previous endo but testing has not started. Connors face, stretch crews on abd but not dark in color. She states she did have purple abd stria at one time. Review of Systems Constitutional: Positive for fatigue. Negative for appetite change. Eyes: Negative for visual disturbance. Respiratory: Negative. [...] General: Skin is warm and dry. Comments: Light color stria on lateral sides of abd. Not present across entire abd. Face round Neurological: Mental Status: She is alert and oriented to person, place, and time. Psychiatric: Behavior: Behavior normal. Thought Content: Thought content normal. Judgment: Judgment normal. Assessment/Plan Diagnoses and all orders for this visit: Type 2 diabetes mellitus with hyperglycemia, with long-term current use of insulin ([facility]) (E11.65, Z79.4) (Primary) Assessment & Plan: A1c improved to 8.0, down 3%. Continue to adjust insulin as previously instructed to keep fasting/ac BG in lower 100's. Advised to scan sensor 2 hours pc and to make a concerted effort to manage dietand exercise better. Orders: - POCT glucose - POCT hemoglobin A1c - Comprehensive metabolic panel; Future Hypertension associated with diabetes ([facility]) (E11.59, I10) Assessment & Plan: Controlled on current medications. Continue plan. Hyperlipidemia associated with type 2 diabetes mellitus ([facility]) (E11.69, E78.5) Assessment & Plan: Hypertriglyceridemia. Needs to be more focused on blood glucose control and diet. Continue fenofibrate. Morbid obesity ([facility]) (E66.01) Assessment & Plan: Needs to be more focused on increasing to daily exercise and limiting calories. Cosigned by Kurt Saini MD at 12/17/2019 5:35 PM CDT documented in this encounter Procedure Notes * Anyi Ocasio NP - 12/10/2019 10:00 AM CDT Procedures CGM Evaluation Sensor- Sofie % of wear 97% Calibrating appropriately BG Average 174 % above goal 33% 59% at goal of 70-180 A: Pattern main pattern is pc excursions. P: Adjust insulin plan. Discuss carb portions. documented in this encounter Miscellaneous Notes * Assessment & Plan Note - Anyi Ocasio NP - 12/14/2019 3:46 PM CDT Associated Problem(s): Type 2 diabetes mellitus with hyperglycemia, with long- term current use of insulin (HCC) A1c improved to 8.0, down 3%. Continue to adjust insulin as previously instructed to keep fasting/ac BG in lower 100's. Advised to scan sensor 2 hours pc and to make a concerted effort to manage dietand exercise better. * Assessment & Plan Note - Anyi Ocasio NP - 12/14/2019 3:44 PM CDT Associated Problem(s): Hypertension associated with diabetes (HCC) Controlled on current medications. Continue plan. * Assessment & Plan Note - Anyi Ocasio NP - 12/14/2019 3:42 PM CDT Associated Problem(s): Mixed hyperlipidemia Hypertriglyceridemia. Needs to be more focused on blood glucose control and diet. Continue fenofibrate. * Assessment & Plan Note - Anyi Ocasio NP - 12/14/2019 3:41 PM CDT Associated Problem(s): Morbid obesity (HCC) (Resolved 07/25/2022) Needs to be more focused on increasing to daily exercise and limiting calories. documented in this encounter Plan of Treatment Not on file documented as of this encounter Procedures Procedure Name Priority Date/Time Associated Diagnosis Comments POCT HEMOGLOBIN A1C Routine 12/10/2019 1 0:28 AM CDT Type 2 diabetes mellitus with hyperglycemia, with long-term current use of insulin ([facility]) POCT GLUCOSE Routine 12/10/2019 10:25 AM CDT Type 2 diabetes mellitus with hyperglycemia, with long-term current use of insulin ([facility]) documented in this encounter Results * POCT hemoglobin A1c (12/10/2019 10:28 AM CDT) Hemoglobin A1C, POC 8.0 Blood specimen (specimen) 12/10/2019 10:28 AM CDT Anyi Ocasio NP POINT OF CARE TEST ORDERABLE S Final Result * POCT glucose (12/10/2019 10:25 AM CDT) Glucose Blood, POC 161 mg/dL Blood specimen (specimen) 12/10/2019 10:25 AM CDT Anyi Ocasio NP POINT OF CARE TEST ORDERABLE S Final Result documented in this encounter Visit Diagnoses Diagnosis Type 2 diabetes mellitus with hyperglycemia, with long-term current use of insulin ([facility])- Primary Hypertension associated with diabetes (HCC) Unspecified essential hypertension Hyperlipidemia associated with type 2 diabetes mellitus (HCC) Morbid obesity (HCC) Morbid obesity documented in this encounter Discontinued Medications Medication Sig Discontinue Reason Start Date End Da te insulin detemir (LEVEMIR FLEXPEN SUBQ) Inject 50 Units under the skin nightly 12/10/2019 documented as of this encounter Care Teams Oil Pumper Relationship Specialty Start Date End Date Deedee Low PA PCP - General 03/13/17 documented as of this encounter
--- OUTSIDE RECORDS SUMMARY | 2024-02-24 17:14 | XMS_ITS | Encounter Summary ---
Author Organization [facility] Address [address] [place] [address] Care Team Providers Care Senior Stack Engineer Name Role Phone Deedee Low Primary Care Pr ovider Reason for Visit * Reason Onset Date Comments doxycycline 08/24/2020 Encounter Details Date Type Department Care Team (Late st Contact Info) Description 08/24/2020 Telephone [facility] [address] [place] [id number] Sergio Rios MD [address] [facility] [address] [place] [address] doxycycline Social History Tobacco Use Types Packs/Day Years Used Date Smoking Tobacco: Former Smokeless Tobacco: Never Alcohol Use Standard Drinks/Week Comments Yes 0 (1 standard drink = 0.6 oz pur e alcohol) PHQ-2 Answer Date Recorded PHQ-2 Total Score (If total score is 3 or more points, staff should administer the PHQ-9) 0 07/28/2020 Comments Unknown Sex and Gender Information Value Date Recorded Sex Assigned at Not on file Legal Sex Female 10:18 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 Script called to new one. * Telephone Encounter - Sergio Rios MD - 08/24/2020 10:03 AM CDT Okay with me to switch to a tablet form, please send the prescription. I presume he is taking capsules this point * Telephone Encounter - Jia Addison - 08/24/2020 9:16 AM CDT Pt states she is having gastric sleeve surg 09/07/20. Would like to change doxy to a tab she can cutor a liquid to be able to tolerate. Please advise. documented in this encounter Plan of Treatment Not on file documented as of this encounter Visit Diagnoses Not on filedocumented in this encounter Care Teams Senior Stack Engineer Relationship Specialty Start Date End Date Deedee Low PA PCP - General 03/13/17 documented as of this encounter
--- OUTSIDE RECORDS SUMMARY | 2024-02-24 17:14 | XMS_ITS | Encounter Summary ---
Author Organization [facility] Address [address] [place] [address] Phone Care Team Providers Care Ribbon Cutter Name Role Phone Jennifermary Deedee DOWELL Primary Care Pr ovider Encounter Details Date Type Department Care Team (Late st Contact Info) Description 04/16/2019 Orders Only [facility] Scanning, Provider Social History Tobacco Use Types Packs/Day Years Used Date Smoking Tobacco: Former Alcohol Use Standard Drinks/Week Comments Yes 0 (1 standard drink = 0.6 oz pur e alcohol) Comments Unknown Sex and Gender Information Value Date Recorded Sex Assigned at Not on file Legal Sex Female 10:18 AM 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 OPERATOR BATCH OR CONTINUOUS Gender Identity Female 09/21/2019 9:02 PM CDT Sexual Orientation Not on file documented as of this encounter Plan of Treatment Not on file documented as of this encounter Procedures Procedure Name Priority Date/Time Associated Diagnosis Comments GI - RESULT 04/16/2019 documented in this encounter Results * GI - RESULT (04/16/2019) Anatomical Region Laterality Modality Other us Provider Scanning Final Result documented in this encounter Visit Diagnoses Not on filedocumented in this encounter Additional Health Concerns Infection Onset Date Last Indicated Resolved Time COVID: Suspected 12/24/2022 12/24/2022 12/24/2022 3:32 PM CDT COVID: Suspected 12/24/2022 12/24/2022 12/25/2022 12:54 AM CDT COVID: Suspected 10/07/2023 10/07/2023 10/07/2023 12:06 PM CDT COVID: Suspected 02/20/2024 02/20/2024 02/20/2024 11:38 AM STILL OPERATOR BATCH OR CONTINUOUS COVID: Suspected 02/20/2024 02/20/2024 02/20/2024 4:08 PM STILL OPERATOR BATCH OR CONTINUOUS documented as of this encounter Care Teams Ribbon Cutter Relationship Specialty Start Date End Date Deedee Low PA PCP - General 03/13/17 documented as of this encounter
--- OUTSIDE RECORDS SUMMARY | 2024-02-24 17:14 | XMS_ITS | Encounter Summary ---
Author Organization [facility] Address [address] [place] [address] Care Team Providers Care Manager Of Tax Name Role Phone Deedee Low Primary Care Pr ovider Reason for Visit * Reason Comments Diabetes Type 2 Encounter Details Date Type Department Care Team (Latest Contact Info) Description 07/28/2020 1:30 PM CDT Office Visit [facility] [address] [address] [place] [id number] [facility] [address] [place] [address] Type 2 diabetes mellitus with hyperglycemia, with long-term current use of insulin (CMS/HCC) (Primary Dx); Hyperlipidemia associated with type 2 [...] on file 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 Gender Identity Female 09/21/2019 9:02 PM CDT Sexual Orientation Not on file documented as of this encounter Last Filed Vital Signs Vital Sign Reading Time Taken Comments Blood Pressure 124/70 07/28/2020 1:39 PM CDT Pulse 84 07/28/2020 1:39 PM CDT Temperature - - Respiratory Rate 12 07/28/2020 1:39 PM CDT Oxygen Saturation - - Inhaled Oxygen Concentration - - Weight 127.5 kg (281 lb) 07/28/2020 1:39 PM CDT Height 162.6 cm (5' 4 ) 07/28/2020 1:39 PM CDT Body Mass Index 48.23 07/28/2020 1:39 PM CDT documented in this encounter Patient Instructions * Patient Instructions* Kurt Saini MD - 07/28/2020 1:30 PM CDT Images from the original note were not included. Start Jardiance 25 mg daily Start Phentermine once a day Start Atorvastatin 40 mg daily This are you insulin pump settings: documented in this encounter Ordered Prescriptions Prescription Sig Dispense Quantity Refills Last Filled Start Date End Date atorvastatin (LIPITOR) 40 mg tablet Take 1 tablet (40 mg total) by mouth daily 30 tablet 11 07/28/2020 1 phentermine 37.5 mg capsule Take 1 capsule (37.5 mg total) by mouth every morning 30 capsule 3 07/28/2020 1 empagliflozin (JARDIANCE) 25 mg tabletIndications: type 2 diabetes mellitus Take 1 tablet (25 mg total) by mouth daily 30 tablet 6 07/28/2020 1 documented in this encounter Progress Notes * Kurt Saini MD - 07/28/2020 1:30 PM CDT Images from the original note were not included. Subjective/Objective Patient ID: Alannah Ruano is a 40 y.o. female. Chief Complaint Diabetes Type 2 HPI DM Follow up. Diabetes complications and/or comorbidity includes : Morbid obesity Last hba1c : Recent Labs Lab Units 07/28/20 1354 HEMOGLOBIN A1C 6.4 No lab exists for component: CCOFBHM4T Currently taking : Novolog via OmniPod insulin pump BG monitoring : DEXCOM Hypoglycemia : None Exercise plan: walks regularly Diet plan includes: eats small portions Lipid profile within the last year : 12/07/2019: Cholesterol 183; HDL 32; Triglycerides 401 Statin therapy :none Renal: currently on MITESH-I / ARB???s with : Lisinopril Microalbumin: Lab Results Component Value Date MATEUSBCRTRAT 173 (H) 12/07/2019 Date of last eye examination: Not done Review of Systems Constitutional: Negative for activity change and fatigue. HENT: Negative for congestion, hearing loss, trouble swallowing and voice change. Eyes: Negative for redness and visual disturbance. Respiratory: Negative for apnea, cough and chest tightness. Cardiovascular: Negative for chest pain, palpitations and leg swelling. Gastrointestinal: Positive for nausea. Negative for abdominal distention, abdominal pain, constipation and diarrhea. Endocrine: Negative for cold intolerance, heat intolerance, [...] Constitutional: Appearance: She is well-developed. She is morbidly obese. HENT: Head: Normocephalic and atraumatic. Eyes: [...] and oriented to person, place, and time. Coordination: Coordination normal. Deep Tendon Reflexes: Reflexes are normal and symmetric. Reflexes normal. Comments: No tremors Psychiatric: Behavior: Behavior normal. Assessment/Plan Diagnoses and all orders for this visit: Type 2 diabetes mellitus with hyperglycemia, with long-term current use of insulin ([facility]) (E11.65, Z79.4) (Primary) Assessment & Plan: Hba1c [...] Might have to adjust dose of insulin Orders: - POCT glucose - POCT hemoglobin A1c - Lipid panel; Standing Hyperlipidemia associated with type 2 diabetes mellitus ([facility]) (E11.69, E78.5) Assessment & Plan: Goal of treatment , LDL cholesterol less [...] exercise Get fasting lipid profile Start Atorvastatin BMI 40.0-44.9, adult ([facility]) (Z68.41) Assessment & Plan: Diet and exercise were discussed. 1200 Calorie diet advised 45-60 min aerobic / resistance exercise most days of the week recommended. Bariatric surgery medically indicated Will send referral to bariatric center a [facility] Start Phentermine Other orders - empagliflozin (JARDIANCE) 25 mg tablet; Take 1 tablet (25 mg total) by mouth daily - phentermine 37.5 mg capsule; Take 1 capsule (37.5 mg total) by mouth every morning - atorvastatin (LIPITOR) 40 mg tablet; Take 1 tablet (40 mg total) by mouth daily documented in this encounter Procedure Notes * Kurt Saini MD - 07/28/2020 1:30 PM CDT Images from the original note were not included. Procedures CGMS data downloaded and analyzed as follows: See clinical note and scanned printout documented in this encounter Miscellaneous Notes * Assessment & Plan Note - Kurt Saini MD - 07/28/2020 3:23 PM CDTAssociated Problem(s): BMI 38.0-38.9,adult Diet and exercise were discussed. 1200 Calorie diet advised 45-60 min aerobic / resistance exercise most days of the week recommended. Bariatric surgery medically indicated Will send referral to bariatric center a [facility] Start Phentermine * Assessment & Plan Note - Kurt Saini MD - 07/28/2020 3:23 PM CDTAssociated Problem(s): Mixed hyperlipidemia Goal of treatment , LDL cholesterol less [...] exercise Get fasting lipid profile Start Atorvastatin * Assessment & Plan Note - Kutr Saini MD - 07/28/2020 3:22 PM CDTAssociated Problem(s): Type 2 diabetes mellitus with hyperglycemia, with long-term current use of insulin (HCC) Hba1c was Lab Results Component Value Date [...] Might have to adjust dose of insulin documented in this encounter Plan of Treatment Scheduled Orders Name Type Priority Associated Diagnoses Orde r Schedule Lipid panel Lab Routine Type 2 diabetes mellitus with hyperglycemia, with long-term current use of insulin ([facility]) 1 Occurrences starting 07/28/2020 until 07/28/2021 documented as of this encounter Procedures Procedure Name Priority Date/Time Associated Diagnosis Comments POCT HEMOGLOBIN A1C Routine 07/28/2020 1 :54 PM CDT Type 2 diabetes mellitus with hyperglycemia, with long-term current use of insulin ([facility]) POCT GLUCOSE Routine 07/28/2020 1:54 PM CDT Type 2 diabetes mellitus with hyperglycemia, with long-term current use of insulin ([facility]) documented in this encounter Results * POCT hemoglobin A1c (07/28/2020 1:54 PM CDT) Hemoglobin A1C, POC 6.4 Blood specimen (specimen) 07/28/2020 1:54 PM CDT Kurt Saini MD POINT OF CARE TEST ORDERABLES Fi nal Result * POCT glucose (07/28/2020 1:54 PM CDT) Glucose Blood, POC 253 mg/dL Blood specimen (specimen) 07/28/2020 1:54 PM CDT Kurt Saini MD POINT OF CARE TEST ORDERABLES Fi nal Result documented in this encounter Visit Diagnoses Diagnosis Type 2 diabetes mellitus with hyperglycemia, with long-term current use of insulin ([facility])- Primary Hyperlipidemia associated with type 2 diabetes mellitus ([facility]) BMI 40.0-44.9, adult ([facility]) documented in this encounter Discontinued Medications Medication Sig Discontinue Reason Start Date End Da te LORazepam (ATIVAN) 0.5 mg tablet Take 0.5 mg by mouth every 8 (eight) hours as needed for anxiety Therapy completed 07/28/2020 sertraline (ZOLOFT) 100 mg tablet TAKE 1 TABLET BY MOUTH EVERYDAY AT BEDTIME Therapy completed 01/22/2020 07/28/2020 risperiDONE (RisperDAL) 0.5 mg tablet TAKE 1 TABLET TWICE A DAY (OR MAY TAKE AT NIGHT) Therapy completed 01/25/2020 07/28/2020 flash glucose scanning reader (EdupathStyle Sofie 2 [place]) [facility] Use to scan BG qid Therapy completed 12/25/2019 07/28/2020 documented as of this encounter Historical Medications * This list may reflect changes made after this encounter. azelastine (ASTELIN) 137 mcg (0.1 %) nasal spray azelastine 137 mcg (0.1 %) nasal spray aerosol [place] 2 sprays every day by nasal route for 31 days. diazePAM (VALIUM) 5 mg tablet Take 1 tablet (5 mg total) by mouth every 8 (eight) hours as needed 07/26/19 montelukast (SINGULAIR) 10 mg tablet nightly 07/12/19 insulin pump cartridge (Omnipod Dash 5 Pack Pod) cartridge Omnipod Dash 5 Pack Insulin Pod subcutaneous cartridge fenofibrate nanocrystallized (TRICOR) 145 mg tablet fenofibrate nanocrystallized 145 mg tablet Take 1 tablet every day by oral route. esomeprazole DR (NexIUM) 20 mg capsule Nexium 20 mg capsule,delayed release Take 1 capsule every day by oral route. 05/25/19 lamoTRIgine (LaMICtal) 200 mg tablet 07/28/19 insulin glargine (BASAGLAR) 100 unit/mL (3 mL) pen for injection Basaglar KwikPen U-100 Insulin 100 unit/mL (3 mL) subcutaneous INJECT UP TO 60 UNITS UNDER THE SKIN AT BEDTIME ziprasidone (GEODON) 20 mg capsule Take 1 capsule (20 mg total) by mouth 2 (two) times a day with meals 07/26/19 023 added in this encounter Care Teams Manager Of Tax Relationship Specialty Start Date End Date Deedee Low PA PCP - General 03/13/17 documented as of this encounter
--- OUTSIDE RECORDS SUMMARY | 2024-02-24 17:14 | XMS_ITS | Encounter Summary ---
Author Organization [facility] Address [address] [place] [address] Care Team Providers Care Brilliandeer Lopper Name Role Phone Deedee Low Primary Care Pr ovider Reason for Visit * Reason Onset Date Comments Med Management 11/30/2019 Clarification of insulin Encounter Details Date Type Department Care Team (Late st Contact Info) Description 11/30/2019 Telephone [facility] [id number] [place] [address] [address] [id number] [place] [address] [facility] [address] [address] Med Management (Clarification of insulin) Social History Tobacco Use Types Packs/Day Years Used Date Smoking Tobacco: Former Smokeless Tobacco: Never Alcohol Use Standard Drinks/Week Comments Yes 0 (1 standard drink = 0.6 oz pur e alcohol) PHQ-2 Answer Date Recorded PHQ-2 Score 0 09/22/2019 Comments Unknown Sex and Gender Information Value Date Recorded Sex Assigned at Not on file 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 Updated prescription sent for correct dosing. documented in this encounter Plan of Treatment Not on file documented as of this encounter Visit Diagnoses Not on filedocumented in this encounter Discontinued Medications Medication Sig Discontinue Reason Start Date End Da te Levemir FlexTouch U-100 Insuln 100 unit/mL (3 mL) insulin pen INJECT 50 UNITS UNDER THE SKIN NIGHTLY Reorder 11/23/2019 11/30/2019 documented as of this encounter Care Teams Brilliandeer Lopper Relationship Specialty Start Date End Date Deedee Low PA PCP - General 03/13/17 documented as of this encounter
--- OUTSIDE RECORDS SUMMARY | 2024-02-24 17:14 | XMS_ITS | Encounter Summary ---
Author Organization [facility] Address [address] [place] [address] Care Team Providers Care Treatment Manager Name Role Phone JennifermaryDeedee Primary Care Pr ovider Reason for Visit * Reason Comments Diabetes Type 2 Encounter Details Date Type Department Care Team (Latest Contact Info) Description 10/29/2019 9:00 AM CDT [facility] [address] [address] [place] [address] 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 Gender Identity Female 09/21/2019 9:02 PM CDT Sexual Orientation Not on file documented as of this encounter Last Filed Vital Signs Vital Sign Reading Time Taken Comments Blood Pressure 138/96 10/29/2019 9:18 AM CDT Pulse 103 10/29/2019 9:18 AM CDT Temperature - - Respiratory Rate 16 10/29/2019 9:18 AM CDT Oxygen Saturation - - Inhaled Oxygen Concentration - - Weight 120 kg (264 lb 9.6 oz) 10/29/2019 9:18 AM CDT Height 162.6 cm (5' 4 ) 10/29/2019 9:18 AM CDT Body Mass Index 45.42 10/29/2019 9:18 AM CDT documented in this encounter Patient Instructions * Patient Instructions* Kurt Saini MD - 10/29/2019 9:00 AM CDT Adjust insulin as follows: Levemir, 35 units [...] Levemir by 3 units every 3 days untilmorning sugars are persistently under 150 documented in this encounter Progress Notes * Kurt Saini MD - 10/29/2019 9:00 AM CDT Subjective/Objective Patient ID: Alannah Ruano is a 39 y.o. female. Chief Complaint Diabetes Type 2 HPI Diabetes complications and/or comorbidity includes : Morbid obesity , frequent staph infection, abscesses . Diagnosed with DM over 3 years ago. Last hba1c : Over 10 DM Follow up. Diabetes complications and/or comorbidity includes : Last hba1c : 10 Currently taking : Levemir, 25 units twice a day, morning and bedtime ?? Novolog, 6 units before meals and add as follows: ?? For sugar over 150, add 4 units For sugars over 200, Add 6 units For sugars over 250, add 8 units For sugars over 300, add 10 units For sugars over 400 ( or HI ) , add 12 units ? She has tried Bydureon, causing severe GI side effects, also with Metformin . ?? BG monitoring : Sofie cgm LibreView AGP Report Dates Oct 7-20 % Time CGM is active Snapshot ( 14 days ) Average Glucose 282 GMI Glucose Variability 26 TIME IN RANGES Very high > 250 99 % High 181-250 Target Range 70-180 Low 54-69 Very low < 54 Patterns Hypoglycemia : some 41, not often, not recently . Exercise plan: some walking, not every day Diet plan includes: she is seeing a margarine maker, trying 30-60 carbs per meal,not eating now, cooking . Eating smaller portions, not feeling well. Date of last eye examination: within the last years, not aware of DR Review of Systems Constitutional: Positive for fatigue. Negative for activity change. HENT: Negative for congestion, hearing loss, trouble swallowing and voice change. Eyes: Negative for redness and visual disturbance. Respiratory: Negative for apnea, cough, chest tightness, shortness of breath and wheezing. Cardiovascular: Negative for chest pain, palpitations and leg swelling. Gastrointestinal: Positive for abdominal pain and nausea. Negative for abdominal distention, constipation and diarrhea. Endocrine: Negative for cold intolerance, heat intolerance, polydipsia, polyphagia and polyuria. Genitourinary: Negative for difficulty urinating, dysuria, frequency and urgency. Musculoskeletal: Positive for arthralgias and back pain. Negative for gait problem and neck pain. Skin: Negative for color change. Allergic/Immunologic: Negative for food allergies. Neurological: Positive for headaches. Negative for dizziness, tremors, syncope, weakness and light-headedness. Hematological: Negative for adenopathy. Psychiatric/Behavioral: Positive for sleep disturbance. The patient is nervous/anxious. Physical Exam Constitutional: Appearance: She is well-developed. She is obese. HENT: Head: Normocephalic and atraumatic. Eyes: Conjunctiva/sclera: Conjunctivae normal. Pupils: Pupils are equal, round, and reactive to light. Neck: Thyroid: No thyroid mass or thyromegaly. Trachea: Trachea and phonation normal. Cardiovascular: Rate and Rhythm: Normal rate and regular rhythm. Heart sounds: Normal heart sounds. No murmur. Pulmonary: Effort: Pulmonary effort is normal. Breath sounds: Normal breath sounds. Abdominal: General: Bowel sounds are normal. There is no distension. Palpations: Abdomen is soft. Musculoskeletal: Normal range of motion. Skin: General: Skin is warm. Neurological: Mental Status: She is alert and oriented to person, place, and time. Coordination: Coordination normal. Deep Tendon Reflexes: Reflexes are normal and symmetric. Reflexes normal. Comments: No tremors Psychiatric: Behavior: Behavior normal. Assessment/Plan Diagnoses and all orders for this visit: Type 2 diabetes mellitus with hyperglycemia, with long-term current use of insulin ([facility]) (E11.65, Z79.4) (Primary) - POCT glucose - POCT hemoglobin A1c Diabetes mellitus type 2 in obese ([facility]) (E11.69, E66.9) Assessment & Plan: Hba1c was Lab Results [...] Levemir by 3 units every 3 days untilmorning sugars are persistently under 150 Will also request OmniPod insulin pump paperwork to start Orders: - Lipid panel; Standing - Albumin Creatinine Ratio, Urine; Future documented in this encounter Procedure Notes * Kurt Saini MD - 10/29/2019 9:00 AM CDT Procedures CGMS data downloaded and analyzed as follows: See clinical note and scanned printout documented in this encounter Miscellaneous Notes * Assessment & Plan Note - Kurt Saini MD - 10/29/2019 12:11 PM CDTAssociated Problem(s): Type 2 diabetes mellitus with hyperglycemia, with long-term current use of insulin ([facility]) Hba1c was Lab Results Component Value Date [...] Levemir by 3 units every 3 days untilmorning sugars are persistently under 150 Will also request OmniPod insulin pump paperwork to start documented in this encounter Plan of Treatment Not on file documented as of this encounter Procedures Procedure Name Priority Date/Time Associated Diagnosis Comments ALBUMIN CREATININE RATIO, URINE Routine 12/07/2019 8:54 AM CDT Diabetes mellitus type 2 in obese ([facility]) LIPID PANEL Routine 12/07/2019 8:54 AM CDT Diabetes mellitus type 2 in obese ([facility]) POCT HEMOGLOBIN A1C Routine 10/29/2019 9 :22 AM CDT Type 2 diabetes mellitus with hyperglycemia, with long-term current use of insulin ([facility]) POCT GLUCOSE Routine 10/29/2019 9:22 AM CDT Type 2 diabetes mellitus with hyperglycemia, with long-term current use of insulin ([facility]) documented in this encounter Results * (ABNORMAL) Albumin Creatinine Ratio, Urine (12/07/2019 8:54 AM CDT) Creatinine, ur 106 20 - 275 mg/dL [facility] Microalbumin, ur 18.3 See Note: mg/dL [facility] Comment: Reference Range: Reference Range Not established Microalbumin/creat ratio 173(H) <30 mcg/mg creat [facility] Comment: The ADA defines abnormalities in albumin excretion as follows: Category ? Result (mcg/mg creatinine) Normal ?<30 Microalbuminuria ? 30-299 Clinical albuminuria ?? > OR = 300 The ADA recommends that at least two of three specimens collected within a 3-6 month period be abnormal before considering a patient to be within a diagnostic category. Urine 12/07/2019 8:54 AM CDT 12/07/2019 8:55 AM CDT Narrative [facility] - 12/08/2019 12:26 PM CDT NO DRAW FEE 2ND ORDER FASTING:YES FASTING: YES us Kurt Saini MD LAB URINE ORDERABLES Final Resul t [facility] [address] [place] [address] * (ABNORMAL) Lipid panel (12/07/2019 8:54 AM CDT) Cholesterol 183 <200 mg/dL [facility] HDL 32(L) > OR = 50 mg/dL [facility] Triglycerides 401(H) <150 mg/dL [facility] Comment: If a non-fasting specimen was collected, consider repeat triglyceride testing on a fasting specimen if clinically indicated. Chaz et al. J. of Clin. Lipidol. 2015;9:129-169. LDL mg/dL (calc) [facility] Comment: LDL cholesterol not calculated. Triglyceride levels greater than 400 mg/dL invalidate calculated LDL results. Reference range: <100 Desirable range <100 mg/dL for primary prevention; ?? <70 mg/dL for patients with CHD or diabetic patients with > or = 2 CHD risk factors. LDL-C is now calculated using the Leland-Joy calculation, which is a validated novel method providing better accuracy than the Friedewald equation in the estimation of LDL-C. Leland MADDEN et al. SEAN. 2013;310(19): 6517-0443 (http://education.Kelly Van [employer]ogh [employer]/faq/KQA495) Chol/HDL ratio 5.7(H) <5.0 (calc) [facility] Non-HDL, (LDL+VLDL) 151(H) <130 mg/dL (calc) [facility] Comment: For patients with diabetes plus 1 major ASCVD risk factor, treating to a non-HDL-C goal of <100 mg/dL (LDL-C of <70 mg/dL) is considered a therapeutic option. Blood specimen (specimen) 12/07/2019 8:54 AM CDT 12/07/2019 8:55 AM CDT Narrative [facility] - 12/08/2019 12:26 PM CDT NO DRAW FEE 2ND ORDER FASTING:YES FASTING: YES us Kurt Saini MD LAB BLOOD ORDERABLES Final Resul t [facility] [address] [place] [address] * (ABNORMAL) POCT hemoglobin A1c (10/29/2019 9:22 AM CDT) Hemoglobin A1C, POC 11.0(A) 4.0 - 7.0 Blood specimen (specimen) 10/29/2019 9:22 AM CDT us Kurt Saini MD POINT OF CARE TEST ORDERABLES Fi nal Result * (ABNORMAL) POCT glucose (10/29/2019 9:22 AM CDT) Glucose Blood, POC 330(A) 70 - 140 mg/dL Blood specimen (specimen) 10/29/2019 9:22 AM CDT us Kurt Saini MD POINT OF CARE TEST ORDERABLES Ed ited Result - Final documented in this encounter Visit Diagnoses Diagnosis Type 2 diabetes mellitus with hyperglycemia, with long-term current use of insulin (HCC)- Primary Diabetes mellitus type 2 in obese Type II or unspecified type diabetes mellitus without mention of complication, not stated as uncontrolled documented in this encounter Discontinued Medications Medication Sig Discontinue Reason Start Date End Da te sertraline (ZOLOFT) 100 mg tablet 2 times daily. 02/16/2016 10/29/2019 documented as of this encounter Care Teams Treatment Manager Relationship Specialty Start Date End Date Deedee Low PA PCP - General 03/13/17 documented as of this encounter
--- OUTSIDE RECORDS SUMMARY | 2024-02-24 17:14 | XMS_ITS | Encounter Summary ---
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 Name Role Phone JennifermaryDeedee Primary Care Pr ovider Encounter Details Date Type Department Care Team (Late st Contact Info) Description 02/17/2020 11:00 AM OUTREACH REPRESENTATIVE Office Visit [facility] [address] [place] [address] [place] [address] Yancy Desai MD [address] [place] [address] Chronic idiopathic constipation (Primary Dx); Gastroparesis; Hemorrhoids, unspecified hemorrhoid type Social History Tobacco Use Types Packs/Day [...] on file Legal Sex Female 10:18 AM OUTREACH REPRESENTATIVE Gender Identity Female 09/21/2019 9:02 PM CDT Sexual Orientation Not on file documented as of this encounter Last Filed Vital Signs Vital Sign Reading Time Taken Comments Blood Pressure 161/83 02/17/2020 11:25 AM OUTREACH REPRESENTATIVE Pulse 106 02/17/2020 11:25 AM OUTREACH REPRESENTATIVE Temperature 36.6 ??C (97.8 ??F) 02/17/2020 1 1:25 AM OUTREACH REPRESENTATIVE Respiratory Rate - - Oxygen Saturation - - Inhaled Oxygen Concentration - - Weight 124.1 kg (273 lb 9.6 oz) 020 11:25 AM OUTREACH REPRESENTATIVE Height 162.6 cm (5' 4 ) 02/17/2020 11:2 5 AM OUTREACH REPRESENTATIVE Body Mass Index 46.96 02/17/2020 11:25 AM OUTREACH REPRESENTATIVE documented in this encounter Ordered Prescriptions Prescription Sig Dispense Quantity Refills Last Filled Start Date End Date prucalopride (Motegrity) 2 mg tablet Take 1 tablet (2 mg total) by mouth daily 30 tablet 1 02/17/2020 06/06/2020 documented in this encounter Progress Notes * Stanford Hooper MD - 02/17/2020 11:00 AM CST Images from the original note were not included. [facility] Clinic Address: [address] [place] [address], [address] [place] [address] Mailing Address: [address] [place] [address], [place] [address] [place] [address] Clinic note NAME: Alannah Ruano : 1980 DOS: 02/17/2020 Reason for referral: gastroparesis concern Consult requested by: Deedee Low* Primary Care Physician: Deedee Low PA Subjective Chief complaint: bloating HPI Ms. Ruano is a 39 y.o. female with obesity, T2DM, HTN, HLD, MRSA infections (on chronic doxycycline) who is presenting for GI Clinic evaluation for reported diagnosis of gastroparesis and other nonspecific GI symptoms. Was initially seen in this clinic 2 years ago, for occurred in constipation. She was started on MiraLax and H2 myah. She did have no EGD and colonoscopy done as well, with findings listed below. Patient with systemic getting care at outside hospital at [facility]. She started noticing asignificant nausea on most days of the week. Patient stated having nausea on waking up, this would get worse after she would have food intake with early satiety and bloating. She tried to change her diet but did not work very well. In April she had episode of flare-up of his symptoms and also some lower abdominal pain. Reportedly patient had nuclear gastric emptying study and it was positive for gastroparesis. Was started on gastroparesis diet and she met with dietitian to get counseling, she is not able to follow very well because of the need to follow diabetic and gastroparesis diet. She continues to have bloating and postprandial fullness and nausea. Patient had previously tried her Reglan as needed with some relief temporarily. She has gained some weight trying to lose weight. She also has constipation on most days of the week. She had tried MiraLax but it that causes her tohave more nausea and abdominal discomfort. Patient also has blood on wiping, this happens likely related to hemorrhoids per patient. Patient Active Problem List Diagnosis ??? Type 2 diabetes mellitus with hyperglycemia, with long-term current use of insulin (CMS/HCC) ??? BMI 40.0-44.9, adult (CMS/HCC) ??? Morbid obesity (CMS/HCC) ??? Hypertension associated with diabetes (CMS/HCC) ??? Hyperlipidemia associated with type 2 diabetes mellitus (CMS/HCC) ??? Insulin pump status Past Medical History: Diagnosis Date ??? Anxiety ??? Asthma Asthma ??? Back pain ??? Cough ??? Depression ??? Diarrhea ??? Fatigue ??? Headache ??? HX OTHER MEDICAL Migraines ??? Hypercholesterolemia High cholesterol ??? Hypertension ??? Migraines ??? Muscle pain ??? Numbness and tingling ??? Pain with urination ??? Seizure (CMS/HCC) ??? Type 2 diabetes mellitus (CMS/HCC) Past Surgical History: Procedure Laterality Date ??? ADENOIDECTOMY adenoidectomy ??? ORAL SURGERY Oral Surgery ??? TONSILLECTOMY tonsillectomy Current Outpatient Medications: ??? albuterol ER (VOSPIRE ER) 8 mg 12 hr tablet, PATIENT TAKES 8.5 GM DAILY PRN, Disp: , Rfl: ??? blood glucose diagnostic strip, Use to check bg 7 times daily, Disp: 500 each, Rfl: 1 ??? blood-glucose meter misc, Check bg daily, Disp: 1 each, Rfl: 0 ??? carBAMazepine (TEGretol) 200 mg tablet, Take 200 mg by mouth 2 (two) times a day, Disp: , Rfl: ??? doxycycline (doxycycline) 100 mg capsule, Take 1 tablet/capsule (100 mg total) by mouth daily, Disp: 90 tablet/capsule, Rfl: 2 ??? ergocalciferol (VITAMIN D) 50,000 unit capsule, TAKE 1 CAPSULE WEEKLY., Disp: , Rfl: ??? fenofibrate (TRIGLIDE) 160 mg tablet, daily., Disp: , Rfl: ??? fexofenadine (OCHOA ALLERGY) 180 mg tablet, TAKE 1 TABLET DAILY NEEDED., Disp: , Rfl: ??? flash glucose scanning reader (AdmazelyStyle Sofei 2 [place]) [facility], Use to scan BG qid, Disp: 1 each, Rfl: 0 ??? flash glucose sensor (FreeStyle Sofie 2 Sensor) kit, Apply one new sensor q 14 days, Disp: 6 kit, Rfl: 3 ??? hydrOXYzine (ATARAX) 25 mg tablet, Take 25 mg by mouth 1-2 nightly, Disp: , Rfl: ??? insulin aspart U-100 (NovoLOG Flexpen U-100 Insulin) 100 unit/mL (3 mL) insulin pen, Inject up to 44 units TIDAC, Disp: 15 pen, Rfl: 0 ??? insulin aspart U-100 (NovoLOG U-100 Insulin aspart) 100 unit/mL injection, Use up to 160 units per day in insulin pump, Disp: 150 mL, Rfl: 3 ??? lancets [facility], Use to check bg 7 times a day, Disp: 500 each, Rfl: 1 ??? Levemir FlexTouch U-100 Insuln 100 unit/mL (3 mL) insulin pen, INJECT 50 UNITS UNDER THE SKIN NIGHTLY, Disp: 45 mL, Rfl: 1 ??? lisinopril (PRINIVIL,ZESTRIL) 20 mg tablet, daily., Disp: , Rfl: ??? LORazepam (ATIVAN) 0.5 mg tablet, Take 0.5 mg by mouth every 8 (eight) hours as needed for anxiety, Disp: , Rfl: ??? metoclopramide (REGLAN) 5 mg tablet, 2 times daily., Disp: , Rfl: ??? pen needle, diabetic (BD Ultra-Fine Florina Pen Needle) 32 gauge x 5/32 needle, USE DIRECTED up to 7 times daily, Disp: 700 each, Rfl: 0 ??? propranoloL (INDERAL) 20 mg tablet, , Disp: , Rfl: ??? risperiDONE (RisperDAL) 0.5 mg tablet, TAKE 1 TABLET TWICE A DAY (OR MAY TAKE AT NIGHT), Disp: , Rfl: ??? sertraline (ZOLOFT) 100 mg tablet, TAKE 1 TABLET BY MOUTH EVERYDAY AT BEDTIME, Disp: , Rfl: ??? topiramate (TOPAMAX) 50 mg tablet, 400 mg daily, Disp: , Rfl: ??? hyoscyamine (LEVSIN) 0.125 mg tablet, TAKE 1 TABLET 3 TIMES DAILY PRN for pain, Disp: , Rfl: ??? prucalopride (Motegrity) 2 mg tablet, Take 1 tablet (2 mg total) by mouth daily, Disp: 30 tablet, Rfl: 1 Allergies Allergen Reactions ??? Mushroom Anaphylaxis ??? Nut Flavor Anaphylaxis MAINLY PECANS CAN TOLERATE PEANUTS Family History Problem Relation Age of Onset [...] of hypertension - (Added by TW Conv) Social History Tobacco Use ??? Smoking status: Former Smoker ??? Smokeless tobacco: Never Used Substance Use Topics ??? Alcohol use: Yes ??? Drug use: Not on file ROS As outlined in HPI. All other systems negative. Objective Vital Signs BP 161/83 Pulse 106 Temp 36.6 ??C (97.8 ??F) Ht 162.6 cm (5' 4 ) Wt 124.1 kg (273 lb 9.6 oz) BMI 46.96 kg/m?? Physical Exam GENERAL: Obese female HEENT: Sclerae anicteric. Oropharynx without lesion. NECK: Supple without lymphadenopathy. LUNGS: Clear to auscultation bilaterally. CARDIOVASCULAR: Regular rate and rhythm with no murmur. ABDOMEN: obese abdomen, mild tenderness in lower abdomen, no guarding EXTREMITIES: No clubbing, cyanosis or edema, or evident deformity SKIN: No rash or jaundice. NEUROLOGIC: Grossly nonfocal on simple observation with normal insight, memory, affect, and orientation, and no focal weakness evident Results: No results found for: WBC, HGB, HCT, MCV, LABPLAT Lab Results Component Value Date GLUCOSE 171 11/05/2016 No results found for: ALT, AST, GGT, ALKPHOS, BILITOT Endoscopy EGD 11/05/2016:- normal findings Colonoscopy 10/2016: with 2-3 hyperplastic polyps, hemorrhoids Assessment/Plan Ms. Ruano is a 39 y.o. female with obesity, T2DM, HTN, HLD, MRSA infections (on chronic doxycycline), and hemorrhoids who is presenting for GI Clinic evaluation for reported diagnosis of gastroparesis and other nonspecific GI symptoms. Her current symptoms are consistent with possible IBS with predominant constipation, idiopathic constipation, hemorrhoid related bleeding. Her diagnosis of gastroparesis is presumed to be based on reported nuclear gastric emptying study done at outside hospital, we need to get the report to verify e xcept findings. However her symptoms do correlate with having possible dysmotility motility in upper GI tract which would support gastroparesis, and also having constipation. Will plan for managementas below. # Nausea, post-prandial pain # Concern for gastroparesis # Concern for IBS-C, chronic idiopathic constipation - As stated above likely overlapping diagnosis - we counseled about gastroparesis diet, diabetic control, provided inflammation about gastroparesis diet - patient will request report to be sent from outside hospital about gastric emptying study - we will recommend trial of Prucalopride to help with idiopathic constipation with concern for IBSin the also help with gastroparesis symptoms # GERD - continue PPI daily, 30 minutes before meals - precautions after taking doxy with upright sitting and plenty of water # Hemorrhoids - noted on 2017 scope - Anusol suppository as needed; if fails, may need CRS consult Pt was discussed with Dr. Desai. RTC in 4 months. Stanford Hooper MD GI Fellow Cosigned by Yancy Desai MD at 02/19/2020 5:57 PM OUTREACH REPRESENTATIVE EACH REPRESENTATIVE EACH REPRESENTATIVE Associated attestation - Yancy Desai MD - 02/19/2020 5:57 PM OUTREACH REPRESENTATIVE I have seen and examined the patient. I agree with the findings and plan of care as documented in the resident/fellow's note. Patient is a very pleasant 39-year-old woman who has had symptoms of constipation as well as abdominal bloating. She has had intermittent problems with nausea and vomiting. She did have a prior EGD in 07/2015 that showed a phyto bezoar and then a subsequent gastric emptying study around that time was normal. She reports more recently she had another gastric emptying study that supported a diagnosis of gastroparesis. Will plan to obtain that report. We reviewed that the mainstay of management of delayed gastric emptying is dietary. Will plan for gastroparesis diet. Working with a dietitian may be useful. Control of diabetes is another treatment goal. We discussed the pharmacologic management has potential pitfalls for agents like Reglan in terms ofits safety profile with long-term use. She has chronic constipation as well and I think a good potential laxative would be Prucalopride which has a promotility mechanism that might help her upper symptoms as well. She has also had problems with hemorrhoids. Would trial topical therapies and if they remain problematic we can refer to a colorectal surgeon. She did have a colonoscopy in 10/2016. In the past I had been somewhat suspicious for pelvic floor dyssynergia so there could be a role for anorectal manometry and pelvic floor physical therapy in the future if it seems that is contributing to some of her symptomatic problems. documented in this encounter Plan of Treatment Not on file documented as of this encounter Visit Diagnoses Diagnosis Chronic idiopathic constipation- Primary Unspecified constipation Gastroparesis Hemorrhoids, unspecified hemorrhoid type documented in this encounter Discontinued Medications Medication Sig Discontinue Reason Start Date End Da te clonazePAM (KlonoPIN) 0.5 mg tablet Patient Discharge 07/28/2017 02/10/2020 hydrocortisone (ANUSOL-HC) 2.5 % rectal cream Insert into the rectum 2 times daily. Patient Discharge 11/05/2016 02/10/2020 raNITIdine (ZANTAC) 150 mg tablet 2 times daily. Patient Discharge 02/16/2016 02/10/2020 documented as of this encounter Historical Medications * This list may reflect changes made after this encounter. LORazepam (ATIVAN) 0.5 mg tablet Take 0.5 mg by mouth every 8 (eight) hours as needed for anxiety 07/28/2020 sertraline (ZOLOFT) 100 mg tablet TAKE 1 TABLET BY MOUTH EVERYDAY AT BEDTIME 01/22/2020 07/28/2020 risperiDONE (RisperDAL) 0.5 mg tablet TAKE 1 TABLET TWICE A DAY (OR MAY TAKE AT NIGHT) 01/25/2020 07/28/2020 added in this encounter Care Teams Gas Distribution Plant Operator Relationship Specialty Start Date End Date Deedee Low PA PCP - General 03/13/17 documented as of this encounter
--- OUTSIDE RECORDS SUMMARY | 2024-02-24 17:14 | XMS_ITS | Encounter Summary ---
Author Organization [facility] Facility Care Team Providers Care Entry Level Java Developer Name Role Phone Unavailable Primary Care Provider Unavailabl e Encounter Details Date Type Department Care Team (Late st Contact Info) Description 11/19/2009 - 11/19/2009 11:59 PM CDT [facility] [address] [place] [address] Dizziness and giddiness; Pilonidal cyst Social History Tobacco Use Types Packs/Day Years Used Date Smoking Tobacco: Never Assessed Comments Unknown Sex and Gender Information Value Date Recorded Sex Assigned at Not on file 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
--- OUTSIDE RECORDS SUMMARY | 2024-02-24 17:14 | XMS_ITS | Encounter Summary ---
Author Organization [facility] Address [address] [facility] [address] [place] [address] Care Team Providers Care Vp Global Marketing [employer] Name Role Phone Deedee Low Primary Care Pr ovider Reason for Visit * Reason Comments Diabetes Type 2 Encounter Details Date Type Department Care Team (Latest Contact Info) Description 09/22/2019 11:00 AM CDT [place] [facility] [place] [facility] [address] [address] [place] [address] [facility] [address] [place] [address] Type 2 diabetes mellitus (CMS/HCC) (Primary Dx); Type 2 diabetes mellitus with hyperglycemia, with long-term current use of insulin (CMS/HCC); Diabetes mellitus type 2 in obese (CMS/HCC) Social History Tobacco Use Types Packs/Day Years Used Date Smoking Tobacco: Former Alcohol Use Standard Drinks/Week Comments Yes 0 (1 standard drink = 0.6 oz pur e alcohol) PHQ-2 Answer Date Recorded PHQ-2 Score 0 09/22/2019 Comments Unknown Sex and Gender Information Value Date Recorded Sex Assigned at Not on file Legal Sex Female 10:18 AM 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 Gender Identity Female 09/21/2019 9:02 PM CDT Sexual Orientation Not on file documented as of this encounter Last Filed Vital Signs Vital Sign Reading Time Taken Comments Blood Pressure 140/106 09/22/2019 11:06 AM CDT Pulse 98 09/22/2019 11:06 AM CDT Temperature - - Respiratory Rate 12 09/22/2019 11:0 6 AM CDT Oxygen Saturation - - Inhaled Oxygen Concentration - - Weight 115.4 kg (254 lb 6.4 oz) 020 11:06 AM CDT Height 162.6 cm (5' 4.02 ) 09/22/2019 1 1:06 AM CDT Body Mass Index 43.65 09/22/2019 11:06 AM CDT documented in this encounter Patient Instructions * Patient Instructions* Kurt Saini MD - 09/22/2019 11:00 AM CDT Your Hba1c today was: Lab Results Component Value Date HGBA1C 11.0 09/22/2019 meaning a 3 month average sugar of : 280 Your goal hba1c is under 7.0 to 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 Your goal sugars are in the 90-130 range Exercise recommendations: It is recommended that you do daily aerobic ( walking, riding a bike, swimming ) and resistance exercises ( light weight lifting, resistance band stretching ) for at least 30 minutes , most days of the week. If you can not walk, chair exercises for 10-15 min a day would help tremendously. As little as 15-20 minutes exercise , in one or two sessions a day, is still very helpful to improve your diabetes control . Diet recommendations: Eat small portion meals, trying not to consume more than 1800 calories a day . Try to eat not more than than 2 servings of carbs ( starches ) wiith your meals. Avoid soft drinks, including regular sodas , fruit juices and sweetened tea. Drink water instead. Eat plenty of green and leafy vegetables, including salads. Medications: Take your medications regularly. Setting phone alarms can help . Keep your medication on the kitchen dinner table, by the bedside table or by the sink where they are visible to you. If you are taking insulin : the insulin that you are currently using does not need to be refrigerated. Keep it where you can see it . Monitor your sugar levels with finger sticks regularly and keep a log sheet or book. Will start a Freestyle Sofie continuous glucose monitoring. Bring your sugar meter and /or a log book or log sheet to every office visit. Take Levemir, 25 units twice a day, [...] units Fax sugar logs weekly Stop glimepiride documented in this encounter Ordered Prescriptions Prescription Sig Dispense Quantity Refills Last Filled Start Date End Date flash glucose sensor (FreeStyle Sofie 14 Day Sensor) kitIndications:Typ e 2 diabetes mellitus with hyperglycemia, with long-term current use of insulin ([facility]) Change sensor every 14 days 3 kit 5 09/23/2019 12/25/2019 insulin aspart U-100 (NovoLOG Flexpen U-100 Insulin) 100 unit/mL (3 mL) insulin pen Inject 6-12 Units under the skin 3 (three) times a day before meals 5 pen 11 09/22/2019 12/11/2019 documented in this encounter Progress Notes * Kurt Saini MD - 09/22/2019 11:00 AM CDT Subjective/Objective Patient ID: Alannah Ruano is a 39 y.o. female. Chief Complaint Diabetes Type 2 HPI Consult requested by SOPHIA Suresh, for uncontrolled DM New patient, Diabetes complications and/or comorbidity includes : Morbid obesity , frequent staph infection, abscesses . Diagnosed with DM over 3 years ago. Last hba1c : Over 10 Currently taking : Glimepiride Levemir 50 units , at night, would skip BG monitoring : every 3 days, checks every 3 days, because of pain. Hypoglycemia : some 41, not often, not recently . Exercise plan: some walking, not every day Diet plan includes: she is seeing a construction superintendent, trying 30-60 carbs per meal,not eating now, cooking Date of last eye examination: within the last years, not aware of DR Review of Systems Constitutional: Positive for fatigue. Negative for activity change. HENT: Negative for congestion, hearing loss, trouble swallowing and voice change. Eyes: Negative for redness and visual disturbance. Respiratory: Positive for cough, shortness of breath and wheezing. Negative for apnea and chest tightness. Cardiovascular: Negative for chest pain, palpitations and leg swelling. Gastrointestinal: Positive for abdominal pain and nausea. Negative for abdominal distention, constipation and diarrhea. Endocrine: Positive for polyuria. Negative for cold intolerance, heat intolerance, polydipsia and polyphagia. Genitourinary: Positive for dysuria. Negative for difficulty urinating, frequency and urgency. Musculoskeletal: Positive for arthralgias [...] is soft. Musculoskeletal: Normal range of motion. Feet: Right Foot: Monofilament exam: normal. Protective Sensation: 4 sites tested. 4 sites sensed. Left Foot: Monofilament exam: normal. Protective Sensation: 4 sites tested. 4 sites sensed. Skin: General: Skin is warm. Neurological: Mental Status: She is alert and oriented to person, place, and time. Coordination: Coordination normal. Deep Tendon Reflexes: Reflexes are normal and symmetric. Reflexes normal. Comments: No tremors Psychiatric: Behavior: Behavior normal. Assessment/Plan Diagnoses and all orders for this visit: Type 2 diabetes mellitus ([facility]) (E11.9) (Primary) Type 2 diabetes mellitus with hyperglycemia, with long-term current use of insulin ([facility]) (E11.65, Z79.4) - POCT glucose - POCT hemoglobin A1c - flash glucose sensor (FreeStyle Sofie 14 Day Sensor) kit; Change sensor every 14 days Diabetes mellitus type 2 in obese ([facility]) (E11.69, E66.9) Assessment & Plan: Hba1c was [...] units Fax sugar logs weekly Stop glimepiride Other orders - insulin aspart U-100 (NovoLOG Flexpen U-100 Insulin) 100 unit/mL (3 mL) insulin pen; Inject 6-12 Units under the skin 3 (three) times a day before meals documented in this encounter Miscellaneous Notes * Assessment & Plan Note - Kurt Saini MD - 09/22/2019 1:04 PM CDTAssociated Problem(s): Type 2 diabetes mellitus with hyperglycemia, with long-term current use of insulin ([facility]) Hba1c was Lab Results Component [...] units Fax sugar logs weekly Stop glimepiride * Addendum Note - Jim Pitts - 09/22/2019 11:00 AM CDTAddended by: JIM PITTS on: 09/23/2019 12:14 PM Modules accepted: Orders documented in this encounter Plan of Treatment Not on file documented as of this encounter Procedures Procedure Name Priority Date/Time Associated Diagnosis Comments POCT HEMOGLOBIN A1C Routine 09/22/2019 1 1:27 AM CDT Type 2 diabetes mellitus with hyperglycemia, with long-term current use of insulin ([facility]) POCT GLUCOSE Routine 09/22/2019 11:27 AM CDT Type 2 diabetes mellitus with hyperglycemia, with long-term current use of insulin ([facility]) documented in this encounter Results * POCT hemoglobin A1c (09/22/2019 11:27 AM CDT) Hemoglobin A1C, POC 11.0 Blood specimen (specimen) 09/22/2019 11:27 AM CDT Result [facility] us Kurt Saini MD POINT OF CARE TEST ORDERABLES Fi nal Result * POCT glucose (09/22/2019 11:27 AM CDT) Glucose Blood, POC 437 mg/dL Blood specimen (specimen) 09/22/2019 11:27 AM CDT us Kurt Saini MD POINT OF CARE TEST ORDERABLES Fi nal Result documented in this encounter Visit Diagnoses Diagnosis Type 2 diabetes mellitus (HCC)- Primary Type 2 diabetes mellitus with hyperglycemia, with long-term current use of insulin (HCC) Diabetes mellitus type 2 in obese Type II or unspecified type diabetes mellitus without mention of complication, not stated as uncontrolled documented in this encounter Discontinued Medications Medication Sig Discontinue Reason Start Date End Da te diazePAM (VALIUM) 5 mg tablet Therapy completed 08/01/2017 09/22/2019 linaclotide (LINZESS) 72 mcg capsule pt given 32 tabs as dispensed sample Therapy completed 07/17/2017 09/22/2019 insulin glargine (TOUJEO SOLOSTAR U-300 INSULIN) 300 unit/mL (1.5 mL) insulin pen PATIENT INJECTS 20 UNITS SUBCUTANEOUSLY ONCE DAILY Therapy completed 02/16/2016 09/22/2019 GLIMEPIRIDE ORAL Take 2 mg by mouth Two pills bid Alternate therapy 09/22/2019 documented as of this encounter Historical Medications * This list may reflect changes made after this encounter. hydrOXYzine (ATARAX) 25 mg tablet Take 1 tablet (25 mg total) by mouth 1-2 nightly carBAMazepine (TEGretol) 100 mg chewable tablet Take 100 mg by mouth 3 (three) times a day 12/25/2019 GLIMEPIRIDE ORAL Take 2 mg by mouth Two pills bid 09/22/2019 insulin detemir (LEVEMIR FLEXPEN SUBQ) Inject 50 Units under the skin nightly 12/10/2019 added in this encounter Care Teams Vp Global Marketing [employer] Relationship Specialty Start Date End Date Deedee Low PA PCP - General 03/13/17 documented as of this encounter
--- OUTSIDE RECORDS SUMMARY | 2024-02-24 17:14 | XMS_ITS | Encounter Summary ---
Author Organization [facility] Address [address] [place] [address] Care Team Providers Care Supervisory Forester Name Role Phone Deedee Low Primary Care Pr ovider Encounter Details Date Type Department Care Team (Late st Contact Info) Description 12/25/2019 9:00 AM CDT [place] [facility] [place] [facility] [address] [place] [address] [place] [address] [place] [address] Type 2 diabetes mellitus with hyperglycemia, with long-term current use of insulin ([facility]) (Primary Dx); Insulin pump status Social History Tobacco Use Types Packs/Day Years [...] on file Legal Sex Female 10:18 AM TURN OUT Gender Identity Female 09/21/2019 9:02 PM CDT Sexual Orientation Not on file documented as of this encounter Last Filed Vital Signs Vital Sign Reading Time Taken Comments Blood Pressure - - Pulse - - Temperature - - Respiratory Rate 14 12/25/2019 9:21 AM CDT Oxygen Saturation - - Inhaled Oxygen Concentration - - Weight 124.3 kg (274 lb) 12/25/2019 9:21 AM CDT Height 162.6 cm (5' 4.02 ) 12/25/2019 9:21 AM CD T Body Mass Index 47.01 12/25/2019 9:21 AM CDT documented in this encounter Patient Instructions * Patient Instructions* Anyi Ocasio NP - 12/25/2019 9:00 AM CDT Keep a written copy of your current insulin insulin pump settings. Be sure that you have a fresh pen or bottle of basal insulin at home in case there is a problem with your insulin pump requiring removal. Basal insulin choices could include Lantus, Levemir, Basaglar, Toujeo or Tresiba. Call our office for specific instructions on how much to take. My insulin pump total daily basal amount is 70.5 running at 2.9 units per hour My insulin to carb ratio for meals is 5 My sensitivity is 15 My target is 120 Insulin pump issues can include 1) a bad infusion site, 2) a malfunctioning pump or 3) a bottle of insulin that has or is not working properly. If you bolus for a high blood sugar, be sure to check your sugar again in 30 minutes to 1 hour. If the blood sugar is not coming down or is continuing to rise, you need to remove your pump or pod from the current site and change to a new site. Check your blood sugar again in one hour. If it is still not lower or continuing to rise, remove the pump, open a new bottle of insulin and use your current insulin to carb ratio and correction scaleusing a pen/syringe. Always keep a copy of your insulin pump current settings available. Have the 800 phone number for your insulin pump customer service line available so that you can contact the master scheduler to trouble shoot any issues. When you insert a new infusion set, always check your blood sugars 1 to 2 hours after to be sure that you are receiving you insulin and that your sugars are not going up. Therefore we do not recommend that you change out your infusion site or set at bedtime. documented in this encounter Ordered Prescriptions Prescription Sig Dispense Quantity Refills Last Filled Start Date End Date flash glucose scanning reader (FreeStyle Sofie 2 [place]) [facility] Use to scan BG qid 1 each 12/25/2019 1 flash glucose sensor (FreeStyle Sofie 2 Sensor) kit Apply one new sensor q 14 days 6 kit 3 12/25/2019 1 insulin aspart U-100 (NovoLOG U-100 Insulin aspart) 100 unit/mL injection Use up to 160 units per day in insulin pump 150 mL 3 12/25/2019 2 documented in this encounter Progress Notes * Anyi Ocasio NP - 12/25/2019 9:00 AM CDT Images from the original note were not included. Subjective/Objective Patient ID: Alannah Ruano is a 39 y.o. female. Chief Complaint No chief complaint on file. Pt here today for insulin pump initiation and education. DM Hx- T2DM Starting on Omnipod Insulin pump. Current DM medications: Levemir 52 units bid. Last dose 10 pm last night Novolog 28 units tid ac plus CF 4:50>150 Review of Systems Constitutional: Negative for appetite [...] of insulin ([facility]) (E11.65, Z79.4) (Primary) Assessment & Plan: Demonstrates appropriate ability to fill and insert infusion set. Understands concepts of basal vs.Bolus and is able to enter BG and carbs into pump. Has been provided with contact information for insulin pump escrow representative and how to reach our office [...] of follow up appointment in 2 weeks. Orders: - POCT glucose Insulin pump status (Z96.41) Assessment & Plan: Insulin pump setting calculations as follows: Basal 2.9 units per hour = 70.5 TD basal She will run temp basal at 50% for 12 hours Bolus: IC 5 SF 15 T 120 AI 5 . She has gastroparesis and also instructed on how to extend bolus for this. Other orders - insulin aspart U-100 (NovoLOG U-100 Insulin aspart) 100 unit/mL injection; Use up to 160 units per day in insulin pump - flash glucose sensor (FreeStyle Sofie 2 Sensor) kit; Apply one new sensor q 14 days - flash glucose scanning reader (FreeStyle Sofie 2 [place]) [facility]; Use to scan BG qid documented in this encounter Miscellaneous Notes * Assessment & Plan Note - Anyi Ocasio NP - 12/25/2019 10:22 AM CDT Associated Problem(s): Type 2 diabetes mellitus with hyperglycemia, with long- term current use of insulin ([facility]) Demonstrates appropriate ability to fill and insert infusion set. Understands concepts of basal vs.Bolus and is able to enter BG and carbs into pump. Has been provided with contact information for insulin pump escrow representative and how to reach our office [...] of follow up appointment in 2 weeks. * Assessment & Plan Note - Anyi Ocasio NP - 12/25/2019 10:22 AM CDT Associated Problem(s): manager strategy associated with adverse incidents Insulin pump setting calculations as follows: Basal 2.9 units per hour = 70.5 TD basal She will run temp basal at 50% for 12 hours Bolus: IC 5 SF 15 T 120 AI 5 . She has gastroparesis and also instructed on how to extend bolus for this. documented in this encounter Plan of Treatment Not on file documented as of this encounter Procedures Procedure Name Priority Date/Time Associated Diagnosis Comments POCT GLUCOSE Routine 12/25/2019 9:24 AM CDT Type 2 diabetes mellitus with hyperglycemia, with long-term current use of insulin ([facility]) documented in this encounter Results * POCT glucose (12/25/2019 9:24 AM CDT) Glucose Blood, POC 192 mg/dL Blood specimen (specimen) 12/25/2019 9:24 AM CDT Anyi J. Amarjit DIVERSIFIED CROPS FARMER POINT OF CARE TEST ORDERABLE S Final Result documented in this encounter Visit Diagnoses Diagnosis Type 2 diabetes mellitus with hyperglycemia, with long-term current use of insulin ([facility])- Primary Insulin pump status documented in this encounter Discontinued Medications Medication Sig Discontinue Reason Start Date End Da te carBAMazepine (TEGretol) 100 mg chewable tablet Take 100 mg by mouth 3 (three) times a day Dose adjustment 12/25/2019 flash glucose sensor (FreeStyle Sofie 14 Day Sensor) kitIndications:Type 2 diabetes mellitus with hyperglycemia, with long-term current use of insulin ([facility]) Change sensor every 14 days 09/23/2019 12/25/2019 documented as of this encounter Historical Medications * This list may reflect changes made after this encounter. carBAMazepine (TEGretol) 200 mg tablet Take 0.5 tablets (100 mg total) by mouth 3 (three) times a day 12/10/2019 propranoloL (INDERAL) 20 mg tablet Take 1 tablet (20 mg total) by mouth 2 (two) times a day 12/24/2019 added in this encounter Care Teams Supervisory Forester Relationship Specialty Start Date End Date Deedee Low PA PCP - General 03/13/17 documented as of this encounter
--- OUTSIDE RECORDS SUMMARY | 2024-02-24 17:14 | XMS_ITS | Encounter Summary ---
Author Organization [facility] Care Team Providers Care Hatch Tender Name Role Phone Deedee Low Primary Care Pr ovider Encounter Details Date Type Department Care Team (Latest Contact Info) Description 06/04/2019 Travel Social History Tobacco Use Types Packs/Day Years Used Date Smoking Tobacco: Former Alcohol Use Standard Drinks/Week Comments Yes 0 (1 standard drink = 0.6 oz pur e alcohol) Comments Unknown Sex and Gender Information Value Date Recorded Sex Assigned at Not on file Legal Sex Female 10:18 AM RECLAMATION SUPERVISOR Gender Identity Female 09/21/2019 9:02 PM CDT Sexual Orientation Not on file COVID-19 Exposure Response Date Recorded In the last month, have you been in contact with someone who was confirmed or suspected to have Coronavirus / COVID-19? No / Unsure 06/04/2019 2:10 PM CDT documented as of this encounter Plan of Treatment Not on file documented as of this encounter Visit Diagnoses Not on filedocumented in this encounter Care Teams Hatch Tender Relationship Specialty Start Date End Date Deedee Low PA PCP - General 03/13/17 documented as of this encounter
--- OUTSIDE RECORDS SUMMARY | 2024-02-24 17:14 | XMS_ITS | Encounter Summary ---
Author Organization [facility] Address [address] [place] [address] Phone Care Team Providers Care Swimming Teacher Name Role Phone JennifermaryDeedee Primary Care Pr ovider Encounter Details Date Type Department Care Team (Late st Contact Info) Description 10/28/2017 Orders Only [facility] [address] [place] [address] [place] [id number] Cally Oconnor RMA Social History Tobacco Use Types Packs/Day Years Used Date Smoking Tobacco: Former Alcohol Use Standard Drinks/Week Comments Yes 0 (1 standard drink = 0.6 oz pur e alcohol) Comments Unknown Sex and Gender Information Value Date Recorded Sex Assigned at Not on file Legal Sex Female 10:18 AM JD EDWARDS Gender Identity Female 09/21/2019 9:02 PM CDT Sexual Orientation Not on file documented as of this encounter Plan of Treatment Not on file documented as of this encounter Visit Diagnoses Not on filedocumented in this encounter Historical Medications * This list may reflect changes made after this encounter. fexofenadine (OCHOA) 180 mg tablet daily 6 albuterol ER (VOSPIRE ER) 8 mg 12 hr tablet every 12 (twelve) hours 6 sertraline (ZOLOFT) 100 mg tablet 2 times daily. 6 10/29/19 20 raNITIdine (ZANTAC) 150 mg tablet 2 times daily. 6 02/10/20 20 ergocalciferol (VITAMIN D) 50,000 unit capsule 6 08/26/19 22 insulin glargine (TOUJEO SOLOSTAR U-300 INSULIN) 300 unit/mL (1.5 mL) insulin pen PATIENT INJECTS 20 UNITS SUBCUTANEOUSLY ONCE DAILY 6 09/22/19 20 topiramate (TOPAMAX) 50 mg tablet 400 mg daily 08/26/19 22 metoclopramide (REGLAN) 5 mg tablet 2 times daily. 6 08/26/19 22 lisinopriL (PRINIVIL,ZESTRIL ) 10 mg tablet Take 10 mg by mouth daily 6 03/22/19 23 linaclotide (LINZESS) 72 mcg capsule pt given 32 tabs as dispensed sample 8 09/22/19 20 hyoscyamine (LEVSIN) 0.125 mg tabletIndications :Urinary Incontinence TAKE 1 TABLET 3 TIMES DAILY PRN for pain 8 09/10/19 22 hydrocortisone (ANUSOL-HC) 2.5 % rectal cream Insert into the rectum 2 times daily. 7 02/10/20 20 fenofibrate (TRIGLIDE) 160 mg tablet daily. 6 06/02/19 22 diazePAM (VALIUM) 5 mg tablet 0 8 09/22/19 20 clonazePAM (KlonoPIN) 0.5 mg tablet 3 8 02/10/20 20 added in this encounter Care Teams Swimming Teacher Relationship Specialty Start Date End Date Deedee Low PA PCP - General 03/13/17 documented as of this encounter
--- OUTSIDE RECORDS SUMMARY | 2024-02-24 17:14 | XMS_ITS | Encounter Summary ---
Author Organization [facility] Address [address] [place] [address] Care Team Providers Care Farmworker Field Crop Name Role Phone Deedee Low Primary Care Pr ovider Reason for Visit * Reason Onset Date Comments OmniPod Pump Training 12/10/2019 Encounter Details Date Type Department Care Team (Late st Contact Info) Description 12/10/2019 Telephone [facility] Specialists [facility] [address] [place] [phone] Anyi Ocasio WIND PROJECT MANAGER [address] [facility] [address] [address] [place] [address] OmniPod Pump Training Social History Tobacco Use Types Packs/Day Years Used Date Smoking Tobacco: Former Smokeless Tobacco: Never Alcohol Use Standard Drinks/Week Comments Yes 0 (1 standard drink = 0.6 oz pur e alcohol) PHQ-2 Answer Date Recorded PHQ-2 Score 0 09/22/2019 Comments Unknown Sex and Gender Information Value Date Recorded Sex Assigned at Not on file Legal Sex Female 10:18 AM HOUSEKEEPING ROOM INSPECTOR Gender Identity Female 09/21/2019 9:02 PM CDT Sexual Orientation Not on file documented as of this encounter Miscellaneous Notes * Telephone Encounter - Colin Babb - 12/11/2019 1:08 PM CDT Pump Training Scheduled: Pump Type: OmniPod Insulin Pump Training Scheduled: Yes/12/25/19 at 9:00am Pump Training Location: [place] [facility] Registered Nurse Name: Darrel Lara Olivarez Patient Notified: Yes 1 week follow up appt schedule: 01/15/20 at 10:15 since Lucia will be out of the office 01/05-01/11/20 email has been sent to the wellness trainer to confirm the scheduled appts. * Telephone Encounter - Colin Babb - 12/10/2019 5:28 PM CDT Pump Received/Training Scheduling: Pump Type: OmniPod Insulin Pump Pump Location: [place] Office Patient Notified: yes Icu Registered Nurse Notified: yes Olivarez Given 3 Available Dates Below: The patient will be leaving town 12/30/19 and returning 01/06/20. So she is available anytime before those dates. So please let me know your availability. email has been sent to the wellness trainer for available dates documented in this encounter Plan of Treatment Not on file documented as of this encounter Visit Diagnoses Not on filedocumented in this encounter Care Teams Farmworker Field Crop Relationship Specialty Start Date End Date Deedee Low PA PCP - General 03/13/17 documented as of this encounter
--- OUTSIDE RECORDS SUMMARY | 2024-02-24 17:14 | XMS_ITS | Encounter Summary ---
Author Organization [facility] Address [address] [place] [address] Care Team Providers Care Mail Processing Machine Operator Name Role Phone Deedee Low Primary Care Pr ovider Reason for Visit * Reason Onset Date Comments Hyperglycemia 01/08/2020 Encounter Details Date Type Department Care Team (Late st Contact Info) Description 01/08/2020 [facility] [place] [address], [place] [phone] [place] [address] [facility] [address], [place] [address] Hyperglycemia Social History Tobacco Use Types Packs/Day Years [...] on file Legal Sex Female 10:18 AM BUSINESS OFFICE COORDINATOR Gender Identity Female 09/21/2019 9:02 PM CDT Sexual Orientation Not on file documented as of this encounter Miscellaneous Notes * Telephone Encounter - Kate Chauhan - 01/08/2020 10:09 AM CDT [facility] the lead trainer with [facility] called because she was doing follow up calls on her patients and patient wanted to know what she was supposed to do because she is sick and her blood sugars are running high. I informed Meah that the patient would need to contact the exchange as there are no endo providers in office. documented in this encounter Plan of Treatment Not on file documented as of this encounter Visit Diagnoses Not on filedocumented in this encounter Care Teams Mail Processing 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
--- OUTSIDE RECORDS SUMMARY | 2024-02-24 17:14 | XMS_ITS | Encounter Summary ---
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 Gender Identity Female 09/21/2019 9:02 PM CDT Sexual Orientation Not on file documented as of this encounter Plan of Treatment Not on file documented as of this encounter Procedures Procedure Name Priority Date/Time Associated Diagnosis Comments COPY RECEIVED FROM Routine 08/11/2020 9: 09 AM CDT TSH+FREE T4 Routine 08/11/2020 9:09 AM CDT LIPID PANEL WITH LDL/HDL RATIO Routine 08/11/2020 9:09 AM CDT URINALYSIS AND REFLEX TO MICROSCOPIC AND CULTURE Routine 08/11/2020 9:09 AM CDT CBC WITH AUTO DIFFERENTIAL Routine 08/11/2020 9:09 AM CDT HEMOGLOBIN A1C Routine 08/11/2020 9:09 AM CDT COMPREHENSIVE METABOLIC PANEL Routine 08/11/2020 9:09 AM CDT documented in this encounter Results * (ABNORMAL) Hemoglobin A1c (08/11/2020 9:09 AM CDT) [facility] Hgb A1C 6.2(H) <5.7 % of total Hgb [facility] 08/11/2020 9:09 AM CDT 08/11/2020 9:13 AM CDT Narrative [facility] - 08/12/2020 1:51 AM CDT PT VARIFIED ALL PT INFO FASTING:YES AN UPDATE OR CORRECTION HAS BEEN MADE TO NAME FASTING: YES us Deedee DOWELL LAB BLOOD ORDERA BLES Final Result [facility] [address] [place] [address] * (ABNORMAL) CBC with auto differential (08/11/2020 9:09 AM CDT) [facility] WBC 10.7 3.8 - 10.8 Thousand/ uL [facility] RBC, POC 4.63 3.80 - 5.10 Million/u L [facility] Hgb 13.4 11.7 - 15.5 g/dL [facility] Hct 40.9 35.0 - 45.0 % [facility] MCV 88.3 80.0 - 100.0 fL [facility] MCH 28.9 27.0 - 33.0 pg [facility] MCHC 32.8 32.0 - 36.0 g/dL [facility] Rdw 14.2 11.0 - 15.0 % [facility] Platelets 280 140 - 400 Thousand/ uL [facility] MPV 9.7 7.5 - 12.5 fL [facility] Neutrophils, abs 7,875(H) 1,500 - 7,800 cells/uL [facility] Neutrophil bands, abs CANCELED 0 - 750 cells/uL [facility] Comment:Result canceled by t he ancillary. Metamyelocytes, abs CANCELED 0 cells/uL [facility] Comment:Result canceled by t he ancillary. Myelocytes, abs CANCELED 0 cells/uL [facility] Comment:Result canceled by t he ancillary. Promyelocytes, abs CANCELED 0 cells/uL [facility] Comment:Result canceled by t he ancillary. Lymphocytes, abs 1,937 850 - 3,900 cells/uL [facility] Monocyte abs 663 200 - 950 cells/uL [facility] Eosinophils, abs 150 15 - 500 cells/uL [facility] Basophils, abs 75 0 - 200 cells/uL [facility] Blast, cell CANCELED 0 cells/uL [facility] Comment:Result canceled by t he ancillary. NRBC abs CANCELED 0 cells/uL [facility] Comment:Result canceled by t he ancillary. Neutrophils 73.6 % [facility] Neutrophilic bands CANCELED % [facility] Comment:Result canceled by t he ancillary. Metamyelocyte pct CANCELED % [facility] Comment:Result canceled by t he ancillary. Myelocyte pct CANCELED % [facility] Comment:Result canceled by t he ancillary. Promyelocyte pct CANCELED % [facility] Comment:Result canceled by t he ancillary. Lymphocyte pct 18.1 % [facility] Reactive lymph CANCELED 0 - 10 % [facility] Comment:Result canceled by t he ancillary. Monocytes 6.2 % [facility] Eosinophils 1.4 % [facility] Basophils 0.7 % [facility] Blast pct CANCELED % [facility] Comment:Result canceled by shira hilton ancillary. NRBC CANCELED 0 /100 WBC [facility] Comment:Result canceled by shira hilton ancillary. Comment CANCELED [facility] Comment:Result canceled by shira hilton ancillary. 08/11/2020 9:09 AM CDT 08/11/2020 9:13 AM CDT Narrative [facility] - 08/12/2020 1:51 AM CDT PT VARIFIED ALL PT INFO FASTING:YES AN UPDATE OR CORRECTION HAS BEEN MADE TO NAME FASTING: YES us Deedee Low PA LAB BLOOD ORDERA BLES Final Result [facility] [address] [place] [address] * (ABNORMAL) Urinalysis reflex to microscopic and culture (08/11/2020 9:09 AM CDT) Color, ur DARK YELLOW YELLOW [facility] Appearance, ur CLEAR CLEAR [facility] Specific gravity 1.029 1.001 - 1.035 [facility] pH, ur 5.5 5.0 - 8.0 [facility] Glucose, ur NEGATIVE NEGATIVE [facility] Bilirubin, ur NEGATIVE NEGATIVE [facility] Ketones, ur NEGATIVE NEGATIVE [facility] Blood, ur NEGATIVE NEGATIVE [facility] Protein, ur, quant TRACE(A) NEGATIVE [facility] Nitrites, ur NEGATIVE NEGATIVE [facility] Leukocyte esterase, ur NEGATIVE NEGATIVE [facility] WBC, ur NONE SEEN < OR = 5 /HPF [facility] RBC, ur NONE SEEN < OR = 2 /HPF [facility] Epithelial cells, squamous, ur 0-5 < OR = 5 /HPF [facility] Epithelial cells, transitional CANCELED < OR = 5 /HPF [facility] Comment:Result canceled by t he ancillary. Epithelial cells, renal, ur CANCELED < OR = 3 /HPF [facility] Comment:Result canceled by t he ancillary. Bacteria, ur, quant NONE SEEN NONE SEEN /HPF [facility] Calcium oxalate crystals, ur MANY(A) NONE OR FEW /HPF [facility] Triple phosphate crystals, ur CANCELED NONE OR FEW /HPF [facility] Comment:Result canceled by t he ancillary. Uric acid crystals, ur CANCELED NONE OR FEW /HPF [facility] Comment:Result canceled by t he ancillary. Amorphous crystals, ur CANCELED NONE OR FEW /HPF [facility] Comment:Result canceled by t he ancillary. Crystals, ur CANCELED NONE SEEN /HPF [facility] Comment:Result canceled by t he ancillary. Hyaline cast NONE SEEN NONE SEEN /LPF [facility] Granular casts, ur CANCELED NONE SEEN /LPF [facility] Comment:Result canceled by t he ancillary. Casts CANCELED NONE SEEN /LPF [facility] Comment:Result canceled by t he ancillary. Yeast, ur CANCELED NONE SEEN /HPF [facility] Comment:Result canceled by t he ancillary. Comments CANCELED [facility] Comment:Result canceled by t he ancillary. Note CANCELED [facility] Comment:Result canceled by t he ancillary. Urine culture [facility] Comment:NO CULTURE INDICATED 08/11/2020 9:09 AM CDT 08/11/2020 9:13 AM CDT Narrative [facility] - 08/12/2020 1:51 AM CDT PT VARIFIED ALL PT INFO FASTING:YES AN UPDATE OR CORRECTION HAS BEEN MADE TO NAME FASTING: YES us Deedee DOWELL LAB MICROBIOLOGY - GENERAL ORDERABLES Final Result [facility] [address] [place] [address] * (ABNORMAL) Comprehensive metabolic panel (08/11/2020 9:09 AM CDT) [facility] Glucose 113(H) 65 - 99 mg/dL [facility] Comment: ? Fasting reference interval For someone without known diabetes, a glucose value between 100 and 125 mg/dL is consistent with prediabetes and should be confirmed with a follow-up test. BUN 15 7 - 25 mg/dL [facility] Creatinine 0.84 0.50 - 1.10 mg/dL [facility] eGFR NON-AFR. ESTONIAN 88 > OR = 60 mL/min/1. 73m2 [facility] EGFR 101 > OR = 60 mL/min/1. 73m2 [facility] BUN/creat ratio NOT APPLICABLE 6 - 22 (calc) [facility] Sodium 136 135 - 146 mmol/L [facility] Potassium, pl 4.2 3.5 - 5.3 mmol/L [facility] Chloride 106 98 - 110 mmol/L [facility] CO2 23 20 - 32 mmol/L [facility] Calcium 9.4 8.6 - 10.2 mg/dL [facility] Protein, sr 6.6 6.1 - 8.1 g/dL [facility] Albumin 4.2 3.6 - 5.1 g/dL [facility] GLOBULIN 2.4 1.9 - 3.7 g/dL (calc) [facility] Alb/glob ratio 1.8 1.0 - 2.5 (calc) [facility] Bilirubin, total 0.4 0.2 - 1.2 mg/dL [facility] Alk phos 67 31 - 125 U/L [facility] AST 12 10 - 30 U/L [facility] ALT (SGPT) 15 6 - 29 U/L [facility] 08/11/2020 9:09 AM CDT 08/11/2020 9:13 AM CDT Narrative [facility] - 08/12/2020 1:51 AM CDT PT VARIFIED ALL PT INFO FASTING:YES AN UPDATE OR CORRECTION HAS BEEN MADE TO NAME FASTING: YES Deedee Aylin DOWELL LAB BLOOD ORDERA BLES Final Result Performing Organization Address [facility] de Phone Number [facility] [address] [place] [address] * TSH+Free T4 (08/11/2020 9:09 AM CDT) TSH 0.97 mIU/L [facility] Comment: ?Reference Range ?> or = 20 Years ??0.40-4.50 ? Ranges ?First trimester ?0.26-2.66 ?Second trimester ?? 0.55-2.73 ?Third trimester ?0.43-2.91 Free T4 1.2 0.8 - 1.8 ng/dL [facility] 08/11/2020 9:09 AM CDT 08/11/2020 9:13 AM CDT Narrative [facility] - 08/12/2020 1:51 AM CDT PT VARIFIED ALL PT INFO FASTING:YES AN UPDATE OR CORRECTION HAS BEEN MADE TO NAME FASTING: YES us Deedee DOWELL LAB BLOOD ORDERA BLES Final Result Performing Organization Address [facility]/ZIP Co de Phone Number [facility] [address] [place] [address] * (ABNORMAL) Lipid Panel With LDL/HDL Ratio (08/11/2020 9:09 AM CDT) Cholesterol 136 <200 mg/dL [facility] HDL 27(L) > OR = 50 mg/dL [facility] Triglycerides 358(H) <150 mg/dL [facility] Comment: If a non-fasting specimen was collected, consider repeat triglyceride testing on a fasting specimen if clinically indicated. Chaz et al. J. of Clin. Lipidol. 2015;9:129-169. LDL 66 mg/dL (calc) [facility] Comment: Reference range: <100 Desirable range <100 mg/dL for primary prevention; ?? <70 mg/dL for patients with CHD or diabetic patients with > or = 2 CHD risk factors. LDL-C is now calculated using the Jesus Manuel calculation, which is a validated novel method providing better accuracy than the Friedewald equation in the estimation of LDL-C. Leland MADDEN et al. SEAN. 2013;310(19): 6981-4427 (http://education.Locqus/faq/WQV818) Chol/HDL ratio 5.0(H) <5.0 (calc) [facility] LDL/HDL ratio 2.4 (calc) [facility] Comment: Below average Risk: ?? <2.34 Average Risk: ? 2.35-4.12 Moderate Risk: ?4.13-5.56 High Risk: ?>5.57 Non-HDL, (LDL+VLDL) 109 <130 mg/dL (calc) [facility] Comment: For patients with diabetes plus 1 major ASCVD risk factor, treating to a non-HDL-C goal of <100 mg/dL (LDL-C of <70 mg/dL) is considered a therapeutic option. 08/11/2020 9:09 AM CDT 08/11/2020 9:13 AM CDT Narrative [facility] - 08/12/2020 1:51 AM CDT PT VARIFIED ALL PT INFO FASTING:YES AN UPDATE OR CORRECTION HAS BEEN MADE TO NAME FASTING: YES us Deedee DOWELL LAB BLOOD ORDERA BLES Final Result [facility] [address] [address] * Copy received from (08/11/2020 9:09 AM CDT) Copy Rec'd from: [facility] Comment: ?[facility] ?[address] [place] [address] 08/11/2020 9:09 AM CDT 08/11/2020 9:13 AM CDT Narrative [facility] - 08/12/2020 1:51 AM CDT PT VARIFIED ALL PT INFO FASTING:YES AN UPDATE OR CORRECTION HAS BEEN MADE TO NAME FASTING: YES us Deedee DOWELL LAB BLOOD ORDERA BLES Final Result [facility] documented in this encounter Visit Diagnoses Not on filedocumented in this encounter Care Teams Vulcanized Fiber Unit Operator Relationship Specialty Start Date End Date Deedee Low PA PCP - General 03/13/17 documented as of this encounter
--- OUTSIDE RECORDS SUMMARY | 2024-02-24 17:14 | XMS_ITS | Encounter Summary ---
Author Organization [facility] Healthcare Address [address] [place] [address] Care Team Providers Care Football Pad Repairer Name Role Phone Phong Wilson DO Primary Care Provider [phone] Encounter Details Date Type Department Care Team (Late st Contact Info) Description 11/05/2016 10:27 AM CDT - 11/05/2016 2:00 PM T Hospital Encounter 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 02/16/2016 2 hydrocortisone (ANUSOL-HC) 2.5 % rectal cream Insert into the rectum 2 times daily. 11/05/2016 0 insulin glargine (TOUJEO SOLOSTAR U-300 INSULIN) 300 unit/mL (1.5 mL) insulin pen PATIENT INJECTS 20 UNITS SUBCUTANEOUSLY ONCE DAILY 02/16/2016 0 lisinopriL (PRINIVIL,ZESTR IL) 10 mg tablet Take 10 mg by mouth daily 02/16/2016 3 metoclopramide (REGLAN) 5 mg tablet 2 times daily. 02/16/2016 2 raNITIdine (ZANTAC) 150 mg tablet 2 times daily. 02/16/2016 0 sertraline (ZOLOFT) 100 mg tablet 2 times daily. 02/16/2016 0 documented as of this encounter Discharge Disposition Disposition Code Departure Means Destination Discharge to home or self care documented in this encounter Plan of Treatment Not on file documented as of this encounter Procedures Procedure Name Priority Date/Time Associated Diagnosis Comments SURGICAL PATHOLOGY Routine 11/05/2016 12:48 PM CDT GLUCOSE POC Routine Gen Lab 11/05/2016 12:26 PM CDT HCG, QUAL, URINE, POC Routine Gen Lab 11/05/2016 12:00 PM CDT UPPER GASTROINTESTINAL ENDOSCOPY REPORT 11/05/2016 COLONOSCOPY REPORT 11/05/2016 SURGICAL PATHOLOGY 11/05/2016 12:00 AM CDT documented in this encounter Results * Surgical pathology (11/05/2016 12:48 PM CDT) 11/05/2016 12:4 8 PM CDT 11/05/2016 2:46 PM CDT Narrative 11/07/2016 5:53 PM CDT [facility] [place] [address] SURGICAL PATHOLOGY REPORT FINAL Patient Name: JUANA RUANO ? Address: [address] ??Service: ??Gastro ??[place], [place] ??[address] ??Location: ??[facility] Taken: 11/05/2016 Gender: F ?? Received: 11/05/2016 : 1980 (Age: 36) ??Hospital #: [id number] Accessioned: 11/05/2016 ?Patient Type: ??[facility] SDS Reported: 11/07/2016 ? Physician(s): Salvatore Chandler ? Diagnosis: A. ??Stomach, endoscopic biopsy ? - Oxyntic mucosa with no histopathologic abnormality B. ??Large intestine, descending colon, polyps, polypectomy ? - Colonic mucosa with surface hyperplastic changes (see comment) [facility]/11/07/2016 14:08 By this signature, I attest that the above diagnosis is based upon my personal examination of the slides(and/or other material indicated in the diagnosis). ?? Lupe Aleman MD ??Report Electronically Reviewed and Signed Out By ??Lupe Aleman MD 11/07/2016 17:53:09 Microscopic Description and Comment: Additional levels (x3) were obtained on part B and show similar histologic findings. ?Tori Johnston MD PhD ?History: The patient is a 36-year-old woman who presents with upper abdominal pain, nausea with vomiting, and hematochezia. ??Operative procedure: Upper GI endoscopy and colonoscopy. ??Operative findings: Normal entire stomach and multiple polyps in the descending colon. Specimen(s) Received: A: Stomach B: Descending colon Gross Description: The specimen is received in a single formalin filled container labeled with the patient's name and cold biopsy gastric and contains a 0.3 x 0.3 x 0.1 cm reddy- pink soft tissue fragment. ??Wrapped. ??Labeled A1. ??Jar 0. The second container is labeled cold biopsy polyps descending and contains two reddy-pink soft tissue fragments measuring 0.5 x 0.3 x 0.1 cm in aggregate. ??Wrapped. ??Labeled B1. ??Jar 0. and/11/05/2016 15:40 ?A. Tamy Cheatham P.A. ? By this signature, I attest that the above diagnosis is based upon my personal examination of the slides(and/or other material). ?? Surgical Pathology report is available electronically in Clinical Desktop. The performance characteristics of some immunohistochemical stains, fluorescence in-situ hybridization tests and immunophenotyping by flow cytometry cited in this report (if any) were determined by the Surgical Pathology Department at [facility] as part of an ongoing quality process engineer program and in compliance with federally mandated [...] performance characteristics determined by the Surgical Pathology Department of [facility]. ??It has not been cleared or approved by the U. S. Food and Drug Administration. Yancy Desai MD LAB PATHOLOGY ORDERABLES Final Result * Glucose POC (11/05/2016 12:26 PM CDT) Glucose, POC 171 70 - 199 mg/dL [facility] Blood specimen (specimen) 11/05/2016 12:26 PM CDT 11/05/2016 12:26 PM CDT Result [facility] [place]ancy Desai MD POINT OF CARE TEST ORDER TOMMY Final Result Performing Organization Address [facility]/ZIP Co de Phone Number [facility] Department [place] [address] * hCG, Qual, Urine, POC (11/05/2016 12:00 PM CDT) HCG, ur, POC Negative [facility] Urine 11/05/2016 12:0 0 PM CDT 11/06/2016 1:45 PM CDT Result [facility] [place]ancy Desai MD LAB BLOOD ORDERABLES Fin al Result Performing Organization Address [facility] de Phone Number [facility] Department [place] [address] * SURGICAL PATHOLOGY (11/05/2016 12:00 AM CDT) Narrative 11/05/2016 12:00 AM CDT Ordered by an unspecified provider. Result [facility] LAB PATHOLOGY ORDERABLES Final Result * COLONOSCOPY REPORT (11/05/2016) Anatomical Region Laterality Modality Other Provider Scanning GI PROCEDURE ORDERABLES Final Result * UPPER GASTROINTESTINAL ENDOSCOPY REPORT (11/05/2016) Anatomical Region Laterality Modality Other Provider Scanning GI PROCEDURE ORDERABLES Final Result documented in this encounter Visit Diagnoses Not on filedocumented in this encounter Care Teams Football Pad Repairer Relationship Specialty Start Date End Date Phong Wilson DO [address] [place] [address] PCP - General 11/05/16 03/12/17 documented as of this encounter
--- OUTSIDE RECORDS SUMMARY | 2024-02-24 17:14 | XMS_ITS | Encounter Summary ---
Author Organization [facility] Medical Group Address [address] [place] [address] Care Team Providers Care Professor Of Environmental Engineering Name Role Phone Deedee Low Primary Care Pr ovider Reason for Visit * Reason Onset Date Comments Med Management 09/23/2019 Novolog Encounter Details Date Type Department Care Team (Late st Contact Info) Description 09/23/2019 Telephone [facility] [address] [facility] [address] [place] [phone] [place] [address] [facility] [address] [address] Med Management (Novolog) Social History Tobacco Use Types Packs/Day Years Used Date Smoking Tobacco: Former Alcohol Use Standard Drinks/Week Comments Yes 0 (1 standard drink = 0.6 oz pur e alcohol) PHQ-2 Answer Date Recorded PHQ-2 Score 0 09/22/2019 Comments Unknown Sex and Gender Information Value Date Recorded Sex Assigned at Not on file 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 Gender Identity Female 09/21/2019 9:02 PM CDT Sexual Orientation Not on file documented as of this encounter Miscellaneous Notes * Telephone Encounter - Tania Lux MA - 09/28/2019 1:56 PM CDT Form signed and faxed Confirmation scanned * Telephone Encounter - Olivia Gong MA - 09/23/2019 12:22 PM CDT Generic substitution request received from leroy for pts novolog Form given to FR To sign documented in this encounter Plan of Treatment Not on file documented as of this encounter Visit Diagnoses Not on filedocumented in this encounter Care Teams Professor Of Environmental Engineering Relationship Specialty Start Date End Date Deedee Low PA PCP - General 03/13/17 documented as of this encounter
--- OUTSIDE RECORDS SUMMARY | 2024-02-24 17:14 | XMS_ITS | Encounter Summary ---
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 Attn: Medical Records Department From: Rosa Angel Requesting Physician: Yancy Desai M.D. Patient Name: Alannah Ruano : 1980 Medical Records requested to facilitate treatment of our patient listed above for continuation of care. GASTRIC EMPTYING STUDY Please fax to [phone] If the patient is not seen at your facility, PLEASE NOTIFY US. According to HIPAA regulation, a signed patient request for release of information is NOT required WHEN the request is for TREATMENT or BILLING of a patient. Any and all assistance in returning the requested information in a timely fashion would be appreciated and would assist in expediting patientcare. TOOLING TECHNICIAN documented in this encounter Plan of Treatment Not on file documented as of this encounter Visit Diagnoses Not on filedocumented in this encounter Care Teams Green Marketing Analyst Relationship Specialty Start Date End Date Deedee Low PA PCP - General 03/13/17 documented as of this encounter
--- OUTSIDE RECORDS SUMMARY | 2024-02-24 17:14 | XMS_ITS | Encounter Summary ---
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 No / Unsure 05/27/2019 8:35 AM CDT documented as of this encounter Plan of Treatment Not on file documented as of this encounter Visit Diagnoses Not on filedocumented in this encounter Care Teams Wage And Salary Specialist Relationship Specialty Start Date End Date Deedee Low PA PCP - General 03/13/17 documented as of this encounter
--- OUTSIDE RECORDS SUMMARY | 2024-02-24 17:14 | XMS_ITS | Encounter Summary ---
Author Organization [facility] Medical Group Address [address] [place] [address] Care Team Providers Care Php Developer Name Role Phone Deedee Low Primary Care Pr ovider Encounter Details Date Type Department Care Team (Late st Contact Info) Description 10/30/2019 Telephone [facility] [address] [facility] [address], [place] [phone] [place] [address] [facility] [address] [address] Social History Tobacco Use Types Packs/Day Years Used Date Smoking Tobacco: Former Smokeless Tobacco: Never Alcohol Use Standard Drinks/Week Comments Yes 0 (1 standard drink = 0.6 oz pur e alcohol) PHQ-2 Answer Date Recorded PHQ-2 Score 0 09/22/2019 Comments Unknown Sex and Gender Information Value Date Recorded Sex Assigned at Not on file 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 Gender Identity Female 09/21/2019 9:02 PM CDT Sexual Orientation Not on file documented as of this encounter Miscellaneous Notes * Telephone Encounter - Brittny Ha MA - 12/08/2019 1:41 PM CDT Pt was denied Omnipod dash 5 pack * Telephone Encounter - Yoselin Pitts - 10/30/2019 8:31 AM CDT Sent demographics and antonio to kolton Chavez * Telephone Encounter - Yoselin Pitts - 10/30/2019 8:31 AM CDT ----- Message from Kurt Saini MD sent at 10/29/2019 12:13 PM CDT ----- Start paper work for Kolton brennan documented in this encounter Plan of Treatment Not on file documented as of this encounter Visit Diagnoses Not on filedocumented in this encounter Care Teams Php Developer Relationship Specialty Start Date End Date Deedee Low PA PCP - General 03/13/17 documented as of this encounter
--- OUTSIDE RECORDS SUMMARY | 2024-02-24 17:14 | XMS_ITS | Encounter Summary ---
Author Organization [facility] Healthcare Address [address] [place] [address] Care Team Providers Care Customer Management Specialist Name Role Phone Unavailable Primary Care Provider Unavailabl e Encounter Details Date Type Department Care Team (Late st Contact Info) Description 03/19/2011 9:55 AM PRECIPITATOR SUPERVISOR - 03/19/2011 11:59 PM PRECIPITATOR SUPERVISOR Hospital Encounter [facility] Phong Tuttle, DO [address] [address] Disturbance of skin sensation; Low back pain Social History Tobacco Use Types Packs/Day Years Used Date Smoking Tobacco: Never Assessed Comments Unknown Sex and Gender Information Value Date Recorded Sex Assigned at Not on file Legal Sex Female 10:18 AM PRECIPITATOR SUPERVISOR Gender Identity Female 09/21/2019 9:02 PM CDT Sexual Orientation Not on file documented as of this encounter Plan of Treatment Not on file documented as of this encounter Visit Diagnoses Diagnosis Disturbance of skin sensation Low back pain Lumbago documented in this encounter
--- OUTSIDE RECORDS SUMMARY | 2024-02-24 17:14 | XMS_ITS | Encounter Summary ---
Author Organization [facility] Medical Group Address [address] [place] [address] Care Team Providers Care Animal Daycare Provider Name Role Phone Deedee Low Primary Care Pr ovider Reason for Visit * Reason Onset Date Comments Forms/questionnaires 04/18/2021 Solara Encounter Details Date Type Department Care Team (Late st Contact Info) Description 04/18/2021 Telephone [facility] [address] [address] [address] [place] [address] [facility] [address] [address] Forms/questionnaires ([facility]) Social History Tobacco Use Types Packs/Day [...] on file Legal Sex Female 10:18 AM BIOMECHANICAL ENGINEER Gender Identity Female 09/21/2019 9:02 PM CDT Sexual Orientation Not on file documented as of this encounter Miscellaneous Notes * Telephone Encounter - Tania Lux MA - 04/18/2021 2:59 PM CST LMN form signed and faxed to [facility] along with last office note. Confirmation scanned ECHANICAL ENGINEER * Telephone Encounter - Tania Lux MA - 04/18/2021 11:02 AM CST LMN form received from [facility] Form completed and placed on FR desk in [place] office for signature ECHANICAL ENGINEER documented in this encounter Plan of Treatment Not on file documented as of this encounter Visit Diagnoses Not on filedocumented in this encounter Care Teams Animal Daycare Provider Relationship Specialty Start Date End Date Deedee Low PA PCP - General 03/13/17 documented as of this encounter
--- OUTSIDE RECORDS SUMMARY | 2024-02-24 17:14 | XMS_ITS | Encounter Summary ---
Author Organization [facility] Medical Group Address [address] [place] [address] Care Team Providers Care Race Car Driver Name Role Phone Deedee Low Primary Care Pr ovider Reason for Visit * Reason Onset Date Comments Med Refill 11/26/2019 Encounter Details Date Type Department Care Team (Late st Contact Info) Description 11/26/2019 Telephone [facility] [address] [facility] [address] [address] [place] [address] [facility] [address], [place] [address] Med Refill Social History Tobacco Use Types Packs/Day Years Used Date Smoking Tobacco: Former Smokeless Tobacco: Never Alcohol Use Standard Drinks/Week Comments Yes 0 (1 standard drink = 0.6 oz pur e alcohol) PHQ-2 Answer Date Recorded PHQ-2 Score 0 09/22/2019 Comments Unknown Sex and Gender Information Value Date Recorded Sex Assigned at Not on file Legal Sex Female 10:18 AM ENLISTED ADVISOR Gender Identity Female 09/21/2019 9:02 PM CDT Sexual Orientation Not on file documented as of this encounter Ordered Prescriptions Prescription Sig Dispense Quantity Refills Last Filled Start Date End Date pen needle, diabetic (BD Ultra-Fine Florina Pen Needle) 32 gauge x 5/32 needleIndications: Type 2 diabetes mellitus with hyperglycemia, with long-term current use of insulin (HCC) USE DIRECTED up to 7 times daily 700 each 11/26/2019 documented in this encounter Miscellaneous Notes * Addendum Note - Kaya Handy MA - 11/26/2019 11:55 AM CDTAddended by: KAYA HANDY on: 11/26/2019 11:55 AM Modules accepted: Orders * Telephone Encounter - Kaya Handy MA - 11/26/2019 11:49 AM CDT Ok she spoke to the pt, gave her the sliding scale from the last OV note, I also walked her throughhow to find you last note on MyChart so she can review what was discussed and she gave verbal understanding. Rx resent for pen needles. Thank you. * Telephone Encounter - Kurt Saini MD - 11/26/2019 11:22 AM CDT This sliding scale, was given during last OV and it is what she needs to be doing Yes, she needs mor e needles * Telephone Encounter - Kaya Handy MA - 11/26/2019 9:59 AM CDT Incoming call from pt stating her rx's were sent to the pharmacy with the incorrect dose. 1. Pen needles, she stated she is using them up to 7 times daily and we only sent her once daily rxwith quantity of 100. 2. She states her sliding scale was 26 units to 44 units but in the chart [facility] 10/29/19 it states - Take Humalog, 10 units with meals if sugars are over 100. ?? If sugars under 80, do not take any ? For sugars over 150, take 12 units For sugars over 200, take 16units For sugars over 250, take 20 units For sugars over 300, take 24 units For sugars over 350 , take 28 units Can you please advise as to what this pt is supposed to be taking and let me know if ok to send a new script? documented in this encounter Plan of Treatment Not on file documented as of this encounter Visit Diagnoses Diagnosis Type 2 diabetes mellitus with hyperglycemia, with long-term current use of insulin (HCC) documented in this encounter Discontinued Medications Medication Sig Discontinue Reason Start Date End Da te pen needle, diabetic (BD Ultra-Fine Florina Pen Needle) 32 gauge x 5/32 needleIndications:Type 2 diabetes mellitus with hyperglycemia, with long-term current use of insulin (HCC) USE DIRECTED Reorder 11/02/2019 11/26/2019 documented as of this encounter Care Teams Race Car Driver Relationship Specialty Start Date End Date Deedee Low PA PCP - General 03/13/17 documented as of this encounter
--- OUTSIDE RECORDS SUMMARY | 2024-02-24 17:14 | XMS_ITS | Encounter Summary ---
Author Organization [facility] Facility Care Team Providers Care Tracer Powder Blender Name Role Phone Deedee Low Primary Care Pr ovider Encounter Details Date Type Department Care Team (Latest Contact Info) Description 05/29/2019 Travel Social History Tobacco Use Types Packs/Day Years Used Date Smoking Tobacco: Former Alcohol Use Standard Drinks/Week Comments Yes 0 (1 standard drink = 0.6 oz pur e alcohol) Comments Unknown Sex and Gender Information Value Date Recorded Sex Assigned at Not on file Legal Sex Female 10:18 AM INTERNET ASSESSOR Gender Identity Female 09/21/2019 9:02 PM CDT Sexual Orientation Not on file COVID-19 Exposure Response Date Recorded In the last month, have you been in contact with someone who was confirmed or suspected to have Coronavirus / COVID-19? No / Unsure 05/29/2019 2:48 PM CDT documented as of this encounter Plan of Treatment Not on file documented as of this encounter Visit Diagnoses Not on filedocumented in this encounter Care Teams Tracer Powder Blender Relationship Specialty Start Date End Date Deedee Low PA PCP - General 03/13/17 documented as of this encounter
--- OUTSIDE RECORDS SUMMARY | 2024-02-24 17:14 | XMS_ITS | Encounter Summary ---
Author Organization [facility] Medical Group Address [address] [place] [address] Care Team Providers Care Nephrologist Name Role Phone Deedee Low Primary Care Pr ovider Reason for Visit * Reason Comments Diabetes Type 2 Encounter Details Date Type Department Care Team (Late st Contact Info) Description 01/15/2020 10:15 AM WALL TAPER HELPER [facility] [address] [place] [address] Anyi Ocasio CRYPTOLOGIC TECHNICIAN [address] [facility] [address] [facility] [address] [place] [address] Type 2 diabetes mellitus with hyperglycemia, with long-term current use of insulin ([facility]) (Primary Dx); Insulin pump status Social History [...] on file Legal Sex Female 10:18 AM WALL TAPER HELPER Gender Identity Female 09/21/2019 9:02 PM CDT Sexual Orientation Not on file documented as of this encounter Last Filed Vital Signs Vital Sign Reading Time Taken Comments Blood Pressure 149/94 01/15/2020 10:07 AM WALL TAPER HELPER Pulse 100 01/15/2020 10:07 AM WALL TAPER HELPER Temperature - - Respiratory Rate 16 01/15/2020 10:07 AM WALL TAPER HELPER Oxygen Saturation - - Inhaled Oxygen Concentration - - Weight 123 kg (271 lb 3.2 oz) 01/15/2020 10:07 A M WALL TAPER HELPER Height 162.6 cm (5' 4 ) 01/15/2020 10:07 AM WALL TAPER HELPER Body Mass Index 46.55 01/15/2020 10:07 AM WALL TAPER HELPER documented in this encounter Progress Notes * Anyi Ocasio NP - 01/15/2020 10:15 AM CST Images from the original note were not included. Subjective/Objective Patient ID: Alannah Ruano is a 39 y.o. female. Chief Complaint Diabetes Type 2 T2DM Insulin pump instruction follow up Current medication:Omnipod insulin pump Basal 2.9 units per hour = 70.5 TD basal She will run temp basal at 50% for 12 hours ?? Bolus: IC 5 SF 15 T 120 AI 5 . She has gastroparesis and also instructed on how to extend bolus for this. HBGM: Has CGM. See procedure note. Diet: ~ 100-150 grams CHO per day Last A1c: Lab Results Component Value Date HGBA1C 8.0 12/10/2019 Last MA: Lab Results Component Value Date MICROALBUR 18.3 12/07/2019 Last lipids:Lab Results Component Value Date CHOL 183 12/07/2019 Lab Results Component Value Date TRIG 401 (H) 12/07/2019 Lab Results Component Value Date HDL 32 (L) 12/07/2019 No results found for: LDLCALC Review of Systems Constitutional: Negative for appetite [...] with long-term current use of insulin ([facility]) (E11.65, Z79.4) (Primary) Assessment & Plan: Basal pattern above goal. PC excursions acceptable. Will adjust settings and advised to upload pumpq 2-4 weeks for evaluation. Insulin pump status (Z96.41) Assessment & Plan: Increase basal rate to 3.0 per hour = 72 units TDB Lower target to 100 TAPER HELPER documented in this encounter Procedure Notes * Anyi Ocasio NP - 01/15/2020 10:15 AM CST Images from the original note were not included. Procedures CGM Evaluation Sensor- Sofie 2 % of wear 49% BG Average 202 % above goal 60% 40% at goal A: Pattern. Basal pattern elevated Not wearing sensor enough P: Will increase basal rates. Advised to wear sensor at all times. TAPER HELPER documented in this encounter Miscellaneous Notes * Assessment & Plan Note - Anyi Ocasio NP - 01/27/2020 3:17 PM WALL TAPER HELPER Associated Problem(s): Type 2 diabetes mellitus with hyperglycemia, with long- term current use of insulin ([facility]) Basal pattern above goal. PC excursions acceptable. Will adjust settings and advised to upload pumpq 2-4 weeks for evaluation. TAPER HELPER * Assessment & Plan Note - Anyi Ocasio NP - 01/27/2020 3:16 PM WALL TAPER HELPER Associated Problem(s): track coach associated with adverse incidents Increase basal rate to 3.0 per hour = 72 units TDB Lower target to 100 TAPER HELPER documented in this encounter Plan of Treatment Not on file documented as of this encounter Visit Diagnoses Diagnosis Type 2 diabetes mellitus with hyperglycemia, with long-term current use of insulin (HCC)- Primary Insulin pump status documented in this encounter Care Teams Nephrologist Relationship Specialty Start Date End Date Deedee Low PA PCP - General 03/13/17 documented as of this encounter
--- OUTSIDE RECORDS SUMMARY | 2024-02-24 17:14 | XMS_ITS | Encounter Summary ---
Author Organization [facility] Address [address] [place] [address] Phone Care Team Providers Care Harvest Supervisor Name Role Phone Deedee Low Primary Care Pr ovider Encounter Details Date Type Department Care Team (Late st Contact Info) Description 02/22/2020 Documentation [facility] Gastroenterology [address] 8th [place] [address] [place] [address] Rosa Ortiz Social History Tobacco Use Types [...] on file Legal Sex Female 10:18 AM SURGICAL ASSISTANT Gender Identity Female 09/21/2019 9:02 PM CDT Sexual Orientation Not on file documented as of this encounter Progress Notes * Rosa Angel - 02/22/2020 3:11 PM CST Submitted PA for [employer] to patient's insurance. ICAL ASSISTANT documented in this encounter Plan of Treatment Not on file documented as of this encounter Visit Diagnoses Not on filedocumented in this encounter Care Teams Harvest Supervisor Relationship Specialty Start Date End Date Deedee Low PA PCP - General 03/13/17 documented as of this encounter
--- OUTSIDE RECORDS SUMMARY | 2024-02-24 17:14 | XMS_ITS | Encounter Summary ---
Author Organization [facility] Address [address] [place] [address] Care Team Providers Care Electronic Die Maker Name Role Phone ZeyadDeedee العلي Aylin DOWELL Primary Care Pr ovider Reason for Visit * Reason Comments Skin Infection Encounter Details Date Type Department Care Team (Late st Contact Info) Description 06/04/2019 2:00 PM CDT Office Visit [facility] [address] [place] [address] [address], [place] [id number] Sergio Rios MD [address] [address] Recurrent boils (Primary Dx); Diabetes mellitus type 2 in obese (CMS/HCC); BMI 40.0-44.9, adult (CMS/HCC); Morbid obesity (CMS/HCC) Social History Tobacco Use Types Packs/Day Years Used Date Smoking Tobacco: Former Alcohol Use Standard Drinks/Week Comments Yes 0 (1 standard drink = 0.6 oz pur e alcohol) Comments Unknown Sex and Gender Information Value Date Recorded Sex Assigned at Not on file Legal Sex Female 10:18 AM AEROPHYSICIST Gender Identity Female 09/21/2019 9:02 PM CDT [...] - Pulse - - Temperature 36.4 ??C (97.6 ??F) 06/04/2019 2:11 PM CD T Respiratory Rate - - Oxygen Saturation - - Inhaled Oxygen Concentration - - Weight 112.3 kg (247 lb 9.6 oz) 06/04/2019 2:11 PM CDT Height 162.6 cm (5' 4 ) 06/04/2019 2:11 PM CDT Body Mass Index 42.5 06/04/2019 2:11 PM CDT documented in this encounter Patient Instructions * Patient Instructions* Sergio Rios MD - 06/04/2019 2:00 PM CDT Hibiclens daily bath for 2 weeks, repeat in 2 months. Nasal mupirocin twice a day both nares for 5 days. Doxycycline 100 mg daily for long-term suppression. Return to clinic in 4 months. documented in this encounter Ordered Prescriptions Prescription Sig Dispense Quantity Refills Last Filled Start Date End Date mupirocin (BACTROBAN) 2 % cream Apply topically 2 (two) times a day for 5 days Apply both nares daily for 5 days 22 g 06/04/2019 0 doxycycline (doxycycline) 100 mg capsuleIndications :Skin/Soft Tissue Infection Take 1 tablet/capsule (100 mg total) by mouth daily 90 tablet/capsule 1 06/04/2019 0 documented in this encounter Progress Notes * Sergio Rios MD - 06/04/2019 2:00 PM CDT Subjective/Objective Patient ID: Alannah Ruano is a 39 y.o. female. Chief Complaint Chief Complaint Patient presents with ??? Skin Infection HPI HPI Patient is a 39-year-old female history of diabetes mellitus type 2, morbidly obese, she is here for evaluation of recurrent boils that started 4 months ago. At that time the patient was taking care of her father who developed sepsis with MRSA and ended up passing away. Patient reports boils in multiple areas including buttocks, genitals. Currently she has no boils. Past Medical History: Diagnosis Date ??? Asthma Asthma ??? HX OTHER MEDICAL Migraines ??? Hypercholesterolemia High cholesterol Social History Socioeconomic History ??? Marital status: [...] file Gets together: Not on file Attends protestant service: Not on file Active member of [...] infarction - (Added by TW Conv) ??? Hypertension [...] Appearance: She is well-developed. She is obese. She is not diaphoretic. HENT: Head: Normocephalic [...] Thought content normal. Judgment: Judgment normal. Temp 36.4 ??C (97.6 ??F) Ht 162.6 cm (5' 4 ) Wt 112.3 kg (247 lb 9.6 oz) BMI 42.50 kg/m?? Diagnoses and all orders for this visit: Recurrent boils (Primary) Diabetes mellitus type 2 in obese ([facility]) BMI 40.0-44.9, adult (CMS/[facility]) Morbid obesity ([facility]) Other orders - doxycycline (doxycycline) 100 mg capsule; Take 1 tablet/capsule (100 mg total) by mouth daily - mupirocin (BACTROBAN) 2 % cream; Apply topically 2 (two) times a day for 5 days Apply both nares daily for 5 days Patient is a 39-year-old female history of diabetes mellitus type 2 here for evaluation of recurrent boils possibly secondary to skin staphylococcal infection. I recommended skin the contamination using Hibiclens daily bath along with nasal mupirocin. I also recommended use low-dose of doxycycline for suppression for the following several months. Patient to contact this office if developed a newoutbreak otherwise will see her back in 4 months. We will consider continuing low-dose of antibiotics for a year or so before trying to stop. documented in this encounter Plan of Treatment Not on file documented as of this encounter Visit Diagnoses Diagnosis Recurrent boils- Primary Carbuncle and furuncle of unspecified site Diabetes mellitus type 2 in obese Type II or unspecified type diabetes mellitus without mention of complication, not stated as uncontrolled BMI 40.0-44.9, adult (HCC) Morbid obesity (HCC) Morbid obesity documented in this encounter Care Teams Electronic Die Maker Relationship Specialty Start Date End Date Deedee Low PA PCP - General 03/13/17 documented as of this encounter
--- OUTSIDE RECORDS SUMMARY | 2024-02-24 17:14 | XMS_ITS | Encounter Summary ---
Author Organization [facility] Address [address] [place] [address] Care Team Providers Care Vocational Teacher Name Role Phone Deedee Low Primary Care Pr ovider Encounter Details Date Type Department Care Team (Late st Contact Info) Description 04/19/2020 [facility]phone [facility] [address] [place] [address] [place] [address] [place] [address] Social History Tobacco Use Types [...] on file Legal Sex Female 10:18 AM WELL SERVICE FLOOR WORKER Gender Identity Female 09/21/2019 9:02 PM CDT Sexual Orientation Not on file documented as of this encounter Miscellaneous Notes * Telephone Encounter - Kate Chauhan - 04/22/2020 7:05 AM CST Completed form scanned to chart and faxed via [employer]. SERVICE FLOOR WORKER * Telephone Encounter - Kate Chauhan - 04/19/2020 3:18 PM CST Last appointment 2020 Next appointment 06/28/2020 Incoming fax from [employer] so patient can upgrade. Form completed and placed on desk for signature. SERVICE FLOOR WORKER documented in this encounter Plan of Treatment Not on file documented as of this encounter Visit Diagnoses Not on filedocumented in this encounter Care Teams Vocational Teacher Relationship Specialty Start Date End Date Deedee Low PA PCP - General 03/13/17 documented as of this encounter
--- OUTSIDE RECORDS SUMMARY | 2024-02-24 17:22 | XMS_ITS | Encounter Summary ---
Author Organization [facility] Address [address] [place]: Epic Prelude ADT [place] [address] Care Team Providers Care Cash Analyst Name Role Phone Deedee Low Primary Care Provider Encounter Details Date Type Department Care Team (Latest Contact Info) Description 10/12/2020 Travel Social History Tobacco Use Types Packs/Day Years Used Date Smoking Tobacco: Never Cigarettes 1 10 Smokeless Tobacco: Never Alcohol Use Standard Drinks/Week Comments No 0 (1 standard drink = 0.6 oz pur e alcohol) None; acid reflux is too bad Sex and Gender Information Value Date Recorded Sex Assigned at Not on file Gender Identity Not on file Sexual Orientation Not on file COVID-19 Exposure Response Date Recorded In the last month, have you been in contact with someone who was confirmed or suspected to have Coronavirus / COVID-19? Unable to assess 10/12/2020 7:06 PM CDT documented as of this encounter Plan of Treatment Not on file documented as of this encounter Visit Diagnoses Not on filedocumented in this encounter Care Teams Cash Analyst Relationship Specialty Start Date End Date Deedee Low PA PCP - General Physician Rustic Fence Builder 01/02/16 documented as of this encounter
--- OUTSIDE RECORDS SUMMARY | 2024-02-24 17:22 | XMS_ITS | Encounter Summary ---
Author Organization [facility] Address [address] Attn: Epic Prelude ADT [place] [address] Care Team Providers Care Final Dressing Cutter Name Role Phone Deedee Low Primary Care Provider [phone] Encounter Details Date Type Department Care Team (Latest Contact Info) Description 02/16/2024 Travel Social History Tobacco Use Types Packs/Day Years Used Date Smoking Tobacco: Never Cigarettes 1 10 Smokeless Tobacco: Never Alcohol Use Standard Drinks/Week Comments No 0 (1 standard drink = 0.6 oz pur e alcohol) None; acid reflux is too bad Feeling Safe Answer Date Recorded Are you in a relationship wi th someone who hurts you emotionally and/or physically? No 02/16/2024 Sex and Gender Information Value Date Recorded Sex Assigned at Not on file Gender Identity Not on file Sexual Orientation Not on file documented as of this encounter Plan of Treatment Not on file documented as of this encounter Visit Diagnoses Not on filedocumented in this encounter Care Teams Final Dressing Cutter Relationship Specialty Start Date End Date Deedee Low PA PCP - General Physician Customs And Border Protection Inspector 01/02/16 documented as of this encounter
--- OUTSIDE RECORDS SUMMARY | 2024-02-24 17:22 | XMS_ITS | Clinical Summary ---
Author Organization [facility] Address [address] [place] [address] Phone Care Team Providers Care Stand In Name Role Phone Deedee Low Primary Care Provider [phone] Allergies Active Allergy Reactions Criticality Noted Date Comments Mushroom Anaphylaxis High 01/04/2016 Nut Flavor Anaphylaxis High 01/04/2016 Medications Medication Sig Dispensed Refills Start Date End Date Status lisinopril (PRINIVIL) 10 mg tabletIndications:hyp ertension Take 10 mg by mouth daily at bedtime. Active fexofenadine (OCHOA) 180 mg tabletIndications:all ergic rhinitis due to grass pollen Take 180 mg by mouth daily with supper. Active albuterol HFA 90 mcg inhalerIndications:al lergic reaction Take 2 Puffs by inhalation every 6 hours as needed for Shortness of Breath. Active clonazePAM (KlonoPIN) 0.5 mg TabletIndications:anx iety Take 0.5 mg by mouth 3 times daily as needed for Anxiety. Active dapagliflozin-metFORM IN (XIGDUO XR) 5-1,000 mg tablet, IR & ER, biphasic 24hrIndications:diabe denita mellitus,home med verification takes at 5pm and 9pm Take 1 Tablet by mouth 2 times daily. Active famotidine (PEPCID) 20 mg tablet Take 20 mg by mouth daily. Active ondansetron (ZOFRAN ODT) 8 mg Tablet, Rapid Dissolve Take 8 mg by mouth every 6 hours as needed for Nausea, Emesis or Nausea/Emesis Dissolve tablet on top of tongue, then swallow with saliva. . Active fenofibrate (LOFIBRA) 160 mg TabletIndications:con stipation Take 160 mg by mouth daily. Active fluticasone (FLONASE) 50 mcg/spray [place], SuspensionIndications :allergic rhinitis,pt takes in the evening 5pm Administer 2 Sprays in each nostril daily. Active rizatriptan (MAXALT MEDICAL ASSISTANT INSTRUCTOR) 10 mg Tablet, Rapid DissolveIndications:h eadache disorder Place 10 mg inside cheek every 2 hours as needed for Migraine may repeat in 2 hours; max dose 30mg in 24 hours . Active insulin glargine (TOUJEO SOLOSTAR) 300 unit/mL pen syringe Inject 14 Units by subcutaneous injection daily at bedtime. Active sertraline (ZOLOFT) 100 mg tabletIndications:dep ression Take 2 Tablet (200 mg) by mouth daily. 30 Tablet 0 01/07/2016 Active traZODone (DESYREL) 50 mg tablet Take 1 Tablet (50 mg) by mouth nightly as needed for Insomnia. 15 Tablet 0 01/07/2016 Active prochlorperazine maleate (COMPAZINE) 10 mg tablet Take 1 Tablet (10 mg) by mouth every 6 hours as needed for Nausea, Emesis or Other (See Comment) (migraine). 30 Tablet 0 01/07/2016 Active cholecalciferol 50,000 unit CapsuleIndications:1/ wk Saturday Take 50,000 Units by mouth. Active tamsulosin (FLOMAX) 0.4 mg capsule Take 1 Capsule (0.4 mg) by mouth daily for 21 days. 21 Capsule 02/16/2024 Active HYDROcodone-acetamino phen (NORCO) 5-325 mg tabletIndications:Rig ht nephrolithiasis Take 1 Tablet by mouth every 4 hours as needed for Moderate Pain. Max Daily Amount: 6 Tablets 20 Tablet 02/16/2024 Active Active Problems Problem Noted Date Diagnosed Date Routine general medical exam ination at a health care facility 01/05/2016 Type 2 diabetes mellitus wit hout complication, without long-term current use of insulin 01/05/2016 Seasonal allergic rhinitis due to pollen 016 Benign hypertension 01/05/2016 Severe recurrent major depre ssion without psychotic features 01/03/2016 Encounters Date Type Department Care Team Description 02/18/2024 External Device Data [facility] ABSTRACTION Provider, Abstract 02/16/2024 2:27 PM DIGITAL ENGINEER - 02/16/2024 6:32 PM DIGITAL ENGINEER Emergency [facility] Emergency Department [address] [place] [id number] Robert Dunlap MD Right nephrolithiasis (Primary Dx) Discharge Disposition: Home or Self Care 02/16/2024 Travel from Last 3 Months Family History Medical History Relation Name Comments Healthy Father Healthy Mother Relation Name Status Comments Father Alive Mother Alive Social History Tobacco Use Types Packs/Day Years Used Date Smoking Tobacco: Never Cigarettes 1 10 Smokeless Tobacco: Never Tobacco Cessation:Counseling Given: Yes Alcohol Use Standard Drinks/Week Comments No 0 [...] Sign Reading Time Taken Comments Blood Pressure 145/89 02/16/2024 3:35 PM DIGITAL ENGINEER Pulse 90 02/16/2024 5:10 PM DIGITAL ENGINEER Temperature 36.3 ??C (97.3 ??F) 02/16/2024 12:[address] Respiratory Rate 20 02/16/2024 5:10 PM DIGITAL ENGINEER Oxygen Saturation 100% 02/16/2024 5:10 PM DIGITAL ENGINEER Inhaled Oxygen Concentration - - Weight 97.5 kg (215 lb) 02/16/2024 12:40 PM DIGITAL ENGINEER Height 162.6 cm (5' 4 ) 02/16/2024 12:40 PM DIGITAL ENGINEER Body Mass Index 36.9 02/16/2024 12:40 PM DIGITAL ENGINEER Plan of Treatment Health Maintenance Due Date Last Done Comments DIABETES MICROALBUMIN ANNUAL SCREEN 1999 LDL CHOLESTEROL ANNUAL 1999 HEPATITIS B VACCINES (1 of 3 - 19+ 3-dose series) 2000 PNEUMOCOCCAL VACCINE 0-64 YEARS (2 of 2 - PCV) 10/30/2014 10/30/2013, 03/11/2013 BREAST CANCER SCREENING 2021 DIABETES ANNUAL RETINAL EXAM 08/25/2022 08/25/2021 INFLUENZA VACCINE (#1) 2023 , 11/30/2020, 11/25/2014, Additional history exists DTAP/TDAP/TD VACCINES (7 - Td or Tdap) 10/31/2023 10/30/2013, 08/30/1986, 10/03/1983, Additional history exists COVID-19 Vaccine ( season) 2023 05/05/2021, 05/13/2020 DIABETES ANNUAL FOOT EXAM 01/03/2024 01/02/2023 DIABETES HBA1C Q 6 MONTHS 03/06/20242023, 08/11/2020, 07/28/2020, Additional history exists CERVICAL CANCER SCREENING 10/02/2026 10/03/2023 HPV VACCINES Aged Out No longer eligi ble based on patient's age to complete this topic Procedures Procedure Name Priority Date/Time Associated Diagnosis Comments CT ABDOMEN PELVIS W CONTRAST Stat 02/16/2024 4:26 PM DIGITAL ENGINEER EXTRA TUBE (URINE MOTTA) Stat 02/16/2024 2:37 PM DIGITAL ENGINEER HCG QUALITATIVE, URINE Stat 2:37 PM DIGITAL ENGINEER URINALYSIS W/REFLEX MICROSCOPIC Stat 02/16/2024 2:37 PM DIGITAL ENGINEER EXTRA TUBE (SST/GOLD) Stat 02/16/2024 12:41 PM DIGITAL ENGINEER EXTRA TUBE Stat 02/16/2024 12:41 PM DIGITAL ENGINEER LIPASE Stat 02/16/2024 12:41 PM DIGITAL ENGINEER COMPREHENSIVE METABOLIC PANEL Stat 02/16/2024 12:41 PM DIGITAL ENGINEER CBC WITH DIFFERENTIAL Stat 02/16/2024 12:41 PM DIGITAL ENGINEER HEMOGLOBIN A1C Routine 01/03/2016 11:00 PM CDT from Last 3 Months or Most Recently Relevant to Health Maintenance Results * CT ABDOMEN PELVIS W CONTRAST (02/16/2024 4:26 PM DIGITAL ENGINEER) Anatomical Region Laterality Modality Abdomen Computed Tomogra phy 02/16/2024 4:27 PM DIGITAL ENGINEER Impressions 02/16/2024 4:32 PM DIGITAL ENGINEER IMPRESSION: 4 mm obstructing right mid ureteral stone The examination was performed with the adjustment of mA according to the patient size and/or the use of Iterative Reconstruction Technique. ?? DICTATION LOCATION: Location [address] [place] [address] Narrative 02/16/2024 4:[address] ABDOMEN AND PELVIS WITH IV CONTRAST DATE: 02/16/2024 4:26 PM CLINICAL INDICATION: Right lower quadrant abdominal pain history of chronic constipation bloody stool with mucous TECHNIQUE: Axial CT images from the lung bases through the pubic symphysis were obtained following intravenous administration of Isovue-370 80 cc. ??Coronal and sagittal reconstructions. FINDINGS: Lung bases are clear. No free air. Moderate hydronephrosis and hydroureter. Stranding secondary to a 4 mm right mid ureteral stone. Additional 2 mm right midpole renal stone nonobstructing. Simple 5 cm right midpole renal cyst. No left-sided stone or hydronephrosis. Changes of gastric sleeve surgery. Remaining abdominal viscera are unremarkable. Normal appendix. Anterior device. Overlying stool within the colon. Procedure Note Amos Cordova MD - 02/16/2024 CT ABDOMEN AND PELVIS WITH IV CONTRAST DATE: 02/16/2024 4:26 PM CLINICAL INDICATION: Right lower quadrant abdominal pain history of chronic constipation bloody stool with mucous TECHNIQUE: Axial CT images from the lung bases through the pubic symphysis were obtained following intravenous administration of Isovue-370 80 cc. Coronal and sagittal reconstructions. FINDINGS: Lung bases are clear. No free air. Moderate hydronephrosis and hydroureter. Stranding secondary to a 4 mm right mid ureteral stone. Additional 2 mm right midpole renal stone nonobstructing. Simple 5 cm right midpole renal cyst. No left-sided stone or hydronephrosis. Changes of gastric sleeve surgery. Remaining abdominal viscera are unremarkable. Normal appendix. Anterior device. Overlying stool within the colon. IMPRESSION: 4 mm obstructing right mid ureteral stone The examination was performed with the adjustment of mA according to the patient size and/or the use of Iterative Reconstruction Technique. DICTATION LOCATION: [address] Robert Dunlap MD CT ORDERABLES * EXTRA TUBE (URINE MOTTA) (02/16/2024 2:37 PM DIGITAL ENGINEER) Urine URINE SPECIMEN OBTAINED BY CLEAN CATCH PROCEDURE / Unknown Collection / Unknown 02/16/2024 2:37 PM DIGITAL ENGINEER 02/16/2024 2:50 PM DIGITAL ENGINEER Robert Dunlap MD URINE ORDERABLE S [facility] CLIA# [id number] [place] [address] * (ABNORMAL) URINALYSIS WITH REFLEX MICROSCOPIC (02/16/2024 2:37 PM DIGITAL ENGINEER) COLOR UA Yellow Pale to Dark Yellow 02/16/2024 2:[address] [facility] CLARITY UA Clear Clear 02/16/2024 2:[address] [facility] SPECIFIC GRAVITY UA 1.033 1.003 - 1.035 02/16/2024 2:[address] [facility] PH UA 6.0 5.0 - 8.0 02/16/2024 2:[address] [facility] LEUKOCYTE ESTERASE UA Negative Negative 02/16/2024 2:[address] [facility] NITRITE UA Negative Negative 02/16/2024 2:[address] [facility] PROTEIN UA Negative Negative 02/16/2024 2:[address] [facility] GLUCOSE UA 3+(A) Negative 02/16/2024 2:[address] [facility] KETONES UA Negative Negative 02/16/2024 2:[address] [facility] UROBILINOGEN UA Normal <2.0 mg/dL 2:[address] [facility] BILIRUBIN UA Negative Negative 02/16/2024 2:[address] [facility] BLOOD UA 3+(A) Negative 02/16/2024 2:[address] [facility] WBC UA 0-2 0 - 2 /hpf 02/16/2024 2:[address] [facility] RBC UA >100(A) 0 - 2 /hpf 02/16/2024 2:[address] [facility] BACTERIA UA 1+(A) Negative /hpf 02/16/2024 2:[address] [facility] EPITHELIAL CELLS, URINE 0-5 0 - 5 /hpf 02/16/2024 2:[address] [facility] HYALINE CAST None Seen None Seen, 0-2 /lpf 02/16/2024 2:[address] [facility] Urine URINE SPECIMEN OBTAINED BY CLEAN CATCH PROCEDURE / Unknown Collection / Unknown 02/16/2024 2:37 PM DIGITAL ENGINEER 02/16/2024 2:49 PM DIGITAL ENGINEER Robert Dunlap MD URINE ORDERABLE S [facility] CLIA# [id number] [place] [address] * HCG QUALITATIVE, URINE (02/16/2024 2:37 PM DIGITAL ENGINEER) HCG QUAL URINE Negative Negative 02/16/2024 3:[address] [facility] COLOR UA Yellow Pale to Dark Yellow 02/16/2024 3:[address] [facility] CLARITY UA Clear Clear 02/16/2024 3:[address] [facility] Urine URINE SPECIMEN OBTAINED BY CLEAN CATCH PROCEDURE / Unknown Collection / Unknown 02/16/2024 2:37 PM DIGITAL ENGINEER 02/16/2024 2:49 PM DIGITAL ENGINEER Robert Dunlap MD URINE ORDERABLE S [facility] CLIA# [id number] [place] [address] * EXTRA TUBE (SST/GOLD) (02/16/2024 12:41 PM DIGITAL ENGINEER) Blood Venipuncture / Unknown 02/16/2024 12:41 PM DIGITAL ENGINEER 02/16/2024 12:50 PM DIGITAL ENGINEER Deedee DOWELL CHEMISTRY ORDERABLES [facility] CLIA# [id number] [place] [address] * (ABNORMAL) CBC WITH DIFFERENTIAL (02/16/2024 12:41 PM DIGITAL ENGINEER) WBC 8.6 4.5 - 10.5 K/uL 02/16/2024 12:[address] [facility] RBC 5.00(H) 3.90 - 4.90 M/uL 02/16/2024 12:[address] [facility] HEMOGLOBIN 15.6(H) 11.8 - 14.8 g/dL 02/16/2024 12:[address] [facility] HEMATOCRIT 45.6(H) 35.5 - 44.0 % 02/16/2024 12:56 PM DIGITAL ENGINEER [facility] [employer] [facility] MCV 91.1 82.0 - 99.0 fL 02/16/2024 12:56 PM DIGITAL ENGINEER [facility] LABORATORY [facility] MCH 31.1 27.8 - 34.5 pg 02/16/2024 12:56 PM DIGITAL ENGINEER [facility] MCHC 34.2 32.5 - 35.5 g/dL 02/16/2024 12:56 PM DIGITAL ENGINEER [facility] RDW 12.7 11.5 - 14.5 % 02/16/2024 12:56 PM DIGITAL ENGINEER [facility] PLATELETS 274 160 - 420 K/uL 02/16/2024 12:56 PM DIGITAL ENGINEER [facility] MPV 7.9(L) 8.7 - 12.7 fL 02/16/2024 12:56 PM DIGITAL ENGINEER [facility] NEUTROPHILS 78 % 02/16/2024 12:56 PM DIGITAL ENGINEER [facility] LYMPHOCYTES 15 % 02/16/2024 12:56 PM DIGITAL ENGINEER [facility] MONOCYTES 6 % 02/16/2024 12:56 PM DIGITAL ENGINEER [facility] EOSINOPHILS 1 % 02/16/2024 12:56 PM DIGITAL ENGINEER [facility] BASOPHILS 1 % 02/16/2024 12:56 PM DIGITAL ENGINEER [facility] LABORATORY SERVICES - [facility] NEUTROPHIL ABSOLUTE 6.70 1.90 - 7.00 K/uL 02/16/2024 12:56 PM DIGITAL ENGINEER [facility] LABORATORY SERVICES - [facility] LYMPHOCYTE ABSOLUTE 1.20 0.70 - 4.50 K/uL 02/16/2024 12:56 PM DIGITAL ENGINEER [facility] LABORATORY SERVICES - [facility] MONOCYTE ABSOLUTE 0.50 0.10 - 1.30 K/uL 02/16/2024 12:56 PM DIGITAL ENGINEER [facility]ORY [facility] - [facility] EOSINOPHIL ABSOLUTE 0.10 0.00 - 0.70 K/uL 02/16/2024 12:56 PM DIGITAL ENGINEER [facility] - [facility] BASOPHILS ABSOLUTE 0.00 0.00 - 0.20 K/uL 02/16/2024 12:56 PM DIGITAL ENGINEER [facility] LABORATORY SERVICES [facility] Blood Venipuncture / Unknown 02/16/2024 12:41 PM DIGITAL ENGINEER 02/16/2024 12:46 PM DIGITAL ENGINEER Robert Dunlap MD HEMATOLOGY ORDE ZHENLES [facility] CLIA# [id number] [place] [address] * LIPASE (02/16/2024 12:41 PM DIGITAL ENGINEER) Pathologist [facility] LIPASE 27 13 - 60 U/L 02/16/2024 1:[address] [facility] Blood Venipuncture / Unknown 02/16/2024 12:41 PM DIGITAL ENGINEER 02/16/2024 12:46 PM DIGITAL ENGINEER Robert Dunlap MD CHEMISTRY ORDER TOMMY Performing Organization Address City/[facility]/ZIP Co de Phone Number [facility] CLIA# [id number] [place] [address] * (ABNORMAL) COMPREHENSIVE METABOLIC PANEL (02/16/2024 12:41 PM DIGITAL ENGINEER) SODIUM 140 136 - 145 mmol/L 02/16/2024 1:18 PM [facility] POTASSIUM 4.2 3.4 - 5.1 mmol/L 02/16/2024 1:18 PM [facility] CHLORIDE 106 98 - 107 mmol/L 02/16/2024 1:18 PM [facility] CO2 24 22 - 29 mmol/L 02/16/2024 1:18 PM [facility] CALCIUM 9.1 8.6 - 10.4 mg/dL 02/16/2024 1:18 PM [facility] BUN 11 6 - 20 mg/dL 02/16/2024 1:18 PM [facility] CREATININE 1.00(H) 0.51 - 0.95 mg/dL 02/16/2024 1:18 PM [facility] GLUCOSE 138(H) 74 - 99 mg/dL 02/16/2024 1:18 PM [facility] TOTAL PROTEIN 6.7 6.3 - 8.7 g/dL 02/16/2024 1:18 PM [facility] ALBUMIN 4.0 3.5 - 5.2 g/dL 02/16/2024 1:18 PM [facility] BILIRUBIN TOTAL 0.5 0.3 - 1.2 mg/dL 02/16/2024 1:18 PM [facility] ALKALINE PHOSPHATASE 69 40 - 150 U/L 02/16/2024 1:18 PM [facility] AST 29 0 - 33 U/L 02/16/2024 1:18 PM [facility] [employer] [facility] ALT 23 0 - 33 U/L 02/16/2024 1:18 PM [facility] [employer] [facility] GFR >60 >=60 mL/min/1.7 3 sq meter 02/16/2024 1:18 PM [facility] [employer] [facility] Comment:eGFR calculated with 2020 CKD-EPI equation. Vegetarian diet, extremely high or low muscle mass, and may affect results. Cystatin C with Glomerular Filtration Rate is a suitable alternative for these patients. ANION GAP 10 8 - 16 mmol/L 02/16/2024 1:18 PM DIGITAL ENGINEER [facility] Blood Venipuncture / Unknown 02/16/2024 12:41 PM DIGITAL ENGINEER 02/16/2024 12:46 PM DIGITAL ENGINEER Robert Dunlap MD CHEMISTRY ORDER TOMMY [facility] CLIA# [id number] [address] * (ABNORMAL) HEMOGLOBIN A1C (01/03/2016 11:00 PM CDT) HEMOGLOBIN A1C 8.0(H) 4.0 - 6.0 % 01/04/2016 2:22 AM CDT [facility] Comment:Note: Effective as o f 04/01/2015 a new methodology, Turbidimetric inhibition immunoassay (TINIA),has been implemented. EST. AVG GLUCOSE, A1C 183 mg/dL 01/04/2016 2:22 AM CDT [facility] Blood 01/03/2016 11:0 0 PM CDT 01/04/2016 1:56 AM CDT Fina Lam NP CHEMISTRY ORDERABL ES Performing Organization Address City/[facility]/ZIP Co de Phone Number [facility] CLIA# [id number] [address] [place] [address] from Last 3 Months or Most Recently Relevant to Health Maintenance Care Teams Stand In Relationship Specialty Start Date End Date Deedee Low PA PCP - General Physician Lead Pl Sql Developer 01/02/16
--- OUTSIDE RECORDS SUMMARY | 2024-02-24 17:22 | XMS_ITS | Encounter Summary ---
Author Organization [facility] Address [address] [place] [address] Care Team Providers Care Thin Film Technician Name Role Phone Deedee Low Primary Care Provider [phone] Encounter Details Date Type Department Care Team (Late st Contact Info) Description 02/18/2024 External Device Data [facility] ABSTRACTION Provider, Abstract NO ADDRESS ON FILE Social History Tobacco Use Types Packs/Day Years [...] on filedocumented in this encounter Care Teams Thin Film Technician Relationship Specialty Start Date End Date Deedee Low PA PCP - General Physician Bacteriology Professor 01/02/16 documented as of this encounter
--- OUTSIDE RECORDS SUMMARY | 2024-02-24 17:22 | XMS_ITS | Encounter Summary ---
Author Organization [facility] Address [address] [place] [address] Care Team Providers Care Knitting Machine Fixer Head Name Role Phone Jennifermary Deedee DELMER Primary Care Provider [phone] Reason for Visit * Reason Comments Abdominal Pain Patient to ED report ing RLQ pain that radiates up. Pain started yesterday and was dull, now severe. Vomiting at time of triage. Tender to palpation. Hx gastric sleeve. * Auth/Cert (Routine) Specialty Diagnoses / Procedures Referred By Angelita silva Referred To Contact Emergency Medicine [facility] Emergency Department [address] [place] [address] Referral ID Status Reason Start Date Expiration Date Visits Re quested Visits Authorized [id number] 1 1 Encounter Details Date Type Department Care Team (Late st Contact Info) Description 02/16/2024 2:27 PM HAIRSPRING FABRICATION SUPERVISOR - 02/16/2024 6:32 PM [facility] Emergency [facility] Emergency Department [address] [place] [address] Robert Dunlap MD [address] [place] [address] Right nephrolithiasis (Primary Dx) Discharge Disposition: Home or Self Care Social History Tobacco Use Types Packs/Day Years [...] Comments Blood Pressure 145/89 02/16/2024 3:35 PM HAIRSPRING FABRICATION SUPERVISOR Pulse 90 02/16/2024 5:10 PM HAIRSPRING FABRICATION SUPERVISOR Temperature 36.3 ??C (97.3 ??F) 02/16/2024 12:[address] Respiratory Rate 20 02/16/2024 5:10 PM HAIRSPRING FABRICATION SUPERVISOR Oxygen Saturation 100% 02/16/2024 5:10 PM HAIRSPRING FABRICATION SUPERVISOR Inhaled Oxygen Concentration - - Weight 97.5 kg (215 lb) 02/16/2024 12:40 PM HAIRSPRING FABRICATION SUPERVISOR Height 162.6 cm (5' 4 ) 02/16/2024 12:40 PM HAIRSPRING FABRICATION SUPERVISOR Body Mass Index 36.9 02/16/2024 12:40 PM HAIRSPRING FABRICATION SUPERVISOR documented in this encounter Discharge Instructions * Discharge Instructions* Robert Dunlap MD - 02/16/2024 5:59 PM HAIRSPRING FABRICATION SUPERVISOR Use your home medicine and Tylenol for pain. You can use the prescribed pain medicine for additional relief. Flomax may help the stone to rule out faster. If you have a local urologist you are welcome to follow-up with them but I have provided the number for urology here as well. SPRING FABRICATION SUPERVISOR * Attachments The following attachments cannot be sent through Care Everywhere. * Kidney Stone ([place]) documented in this encounter Medications at Time of Discharge Medication Sig Dispensed Refills Start Date End Date tamsulosin (FLOMAX) 0.4 mg capsule Take 1 Capsule (0.4 mg) by mouth daily for 21 days. 21 Capsule 02/16/2024 03/08/2024 HYDROcodone-acetaminoph en (NORCO) 5-325 mg tabletIndications:Right nephrolithiasis Take 1 Tablet by mouth every 4 hours as needed for Moderate Pain. Max Daily Amount: 6 Tablets 20 Tablet 02/16/2024 cholecalciferol 50,000 unit CapsuleIndications:1/wk Saturday Take 50,000 Units by mouth. sertraline (ZOLOFT) 100 mg tabletIndications:depre ssion Take 2 Tablet (200 mg) by mouth daily. 30 Tablet 0 01/07/2016 traZODone (DESYREL) 50 mg tablet Take 1 Tablet (50 mg) by mouth nightly as needed for Insomnia. 15 Tablet 0 01/07/2016 prochlorperazine maleate (COMPAZINE) 10 mg tablet Take 1 Tablet (10 mg) by mouth every 6 hours as needed for Nausea, Emesis or Other (See Comment) (migraine). 30 Tablet 0 01/07/2016 insulin glargine (TOUJEO SOLOSTAR) 300 unit/mL pen syringe Inject 14 Units by subcutaneous injection daily at bedtime. lisinopril (PRINIVIL) 10 mg tabletIndications:hyper tension Take 10 mg by mouth daily at bedtime. fexofenadine (OCHOA) 180 mg tabletIndications:aller gic rhinitis due to grass pollen Take 180 mg by mouth daily with supper. albuterol HFA 90 mcg inhalerIndications:triny rgic reaction Take 2 Puffs by inhalation every 6 hours as needed for Shortness of Breath. clonazePAM (KlonoPIN) 0.5 mg TabletIndications:anxie ty Take 0.5 mg by mouth 3 times daily as needed for Anxiety. dapagliflozin-metFORMIN (XIGDUO XR) 5-1,000 mg tablet, IR & ER, biphasic 24hrIndications:diabete s mellitus,home med verification takes at 5pm and 9pm Take 1 Tablet by mouth 2 times daily. famotidine (PEPCID) 20 mg tablet Take 20 mg by mouth daily. ondansetron (ZOFRAN ODT) 8 mg Tablet, Rapid Dissolve Take 8 mg by mouth every 6 hours as needed for Nausea, Emesis or Nausea/Emesis Dissolve tablet on top of tongue, then swallow with saliva. . fenofibrate (LOFIBRA) 160 mg TabletIndications:const ipation Take 160 mg by mouth daily. fluticasone (FLONASE) 50 mcg/spray [place], SuspensionIndications:a llergic rhinitis,pt takes in the evening 5pm Administer 2 Sprays in each nostril daily. rizatriptan (MAXALT WIRE PREPARATION MACHINE TENDER) 10 mg Tablet, Rapid DissolveIndications:hea dache disorder Place 10 mg inside cheek every 2 hours as needed for Migraine may repeat in 2 hours; max dose 30mg in 24 hours . documented as of this encounter Progress Notes * Silvano Alexis, RT - 02/16/2024 4:21 PM CST IMAGING SERVICES - COMPUTED TOMOGRAPHY MEDICATION and FLUSH PROTOCOL [facility] THIS PROTOCOL IS IMPLEMENTED WHEN AN APPROVED PROVIDER ORDERS A CT SCAN WITH CONTRAST BY PAPER OR ELECTRONIC ORDER. The carbide grinder will order place an order in EPIC for contrast ???Scope of Practice - no cosignrequired?? . Enter the protocol in the patient???s electronic health record using [employer]: .[employer]nex[employer] Communication Orders: For ordered imaging procedures requiring intravenous access: Initiate a peripheral IV, if not already in place, and discontinue IV prior to discharge. Medication Orders: Sodium chloride 0.9% (normal saline) flush up to 10 mLs PRN for IV evaluation, saline lock, or medication administration. Sodium chloride 0.9% (normal saline) bolus up to 200 mLs PRN for power injection IV evaluation and IV Contrast flush. Procedure Specific Medications: CT ORAL CONTRAST PROTOCOLS FOR ADULTS Use Iopamidol (Isovue-370) for CT scan unless patient has a documented allergy to contrast dye. If allergy present, use Barium Sulfate (Creamy Vanilla Smoothie Readi-Cat 2) for procedure. If at any time the Shop Welder has a question about which option to administer, seek clarification from a Radiologist. Iopamidol (Isovue-370): 15ml added to 900mL of clear liquid of patient???s choice. Preferred route is oral. May use nasoenteric tube if needed. Administer 900mL of the diluted Iopamidol (Isovue-370),orally, one time only. Barium Sulfate (Creamy Vanilla Smoothie Readi-Cat 2) oral suspension: Preferred route is oral. May use nasoenteric tube if needed. Administer 450mL of barium sulfate, orally, one time only. For Enterography, give patient 450ml Breeza, a flavored beverage. CT ORAL CONTRAST PROTOCOLS FOR PEDIATRICS Pediatrics = up to age 18 Pediatric Radiologist will approve of one of the following products selected for procedure. Barium Sulfate (Creamy Vanilla Smoothie Readi-Cat 2) oral suspension: preferred route is oral. May use nasoenteric tube if needed. [place] to 3 months Administer up to 90mL of Barium Sulfate, Orally, one time only 4 months to 1 year old Administer up to 240mL of Barium sulfate , Orally, One Time Only 1 year old to 5 years old Administer up to 360mL of Barium sulfate , Orally, One Time Only 5 years old to 10 years old Administer up to 480mL of Barium sulfate , Orally, One Time Only Over 10 years old Administer up to 600mL of Barium sulfate , Orally, One Time Only Iopamidol (Isovue-370)oral solution Dilute 25mL of Iopamidol with 480mL of clear liquid of patient???s choice. Administer the diluted solution per age as follows: Preferred route is orally. May use nasoenteric tube if needed. Send any remaining diluted Iopamidol solution with the patient to CT. Administer 45mL of diluted Iopamidol oral solution, orally every 30 minutes x 2 doses. 1 month to 1 year old Administer 120mL of diluted Iopamidol oral solution, orally every 30 min x 2 doses. 1 year old to 5 years old Administer 180mL of diluted Iopamidol orally every 30 min x 2 doses. 5 years old to 10 years old Administer 240mL of diluted Iopamidol orally every 30 min x 2 doses. Over 10 years old Administer 300mL of diluted Iopamidol orally every 30 min x [address] IV CONTRAST PROTOCOLS ADULTS: (If patient is less than 55kg and confirm dose with radiologist) o Iopamidol (Isovue-370): Administer up to 2.2mL/kg (to MAX of 150mL) of Iopamidol 76%, intravenously, one time only PEDIATRICS: Use weight based dosing if patient is less than 55kg and confirm dose with radiologist.[place] to 15 years old Administer up to 2.2mL/kg (to MAX of 80 mL) of Iopamidol (Isovue-370) 76%, intravenously, one time only 15 years old and older Administer up to 2.2mL/kg (to MAX of 125mL) of Iopamidol (Isovue-370) 76%, intravenously, one time only Initiating Department(s): Imaging Services - CT Approved by: Dorie Morocho Date: 09/2021 Approved by: Mitch Sharpe MD, Grant Coordinator Date: 09/2021 Approved by: P&T Committee Date: 09/2021 Approved by: Medical Executive Committee Date: 09/2021 SPRING FABRICATION SUPERVISOR documented in this encounter ED Notes * Lisandra Horne RN - 02/16/2024 6:32 PM CST Team discharge completed with this RN and Dr. Dunlap. Pt denies any pain or questions upon discharge. Wheelchair offered, patient ambulatory to lobby with ED staff at this time. VSS and pt in NAD attime of discharge. BP (!) 145/89 Pulse 90 Temp 97.3 ??F (36.3 ??C) (Oral) Resp 20 Ht 5' 4 (1.626 m) Wt 97.5kg (215 lb) SpO2 100% BMI 36.90 kg/m?? SPRING FABRICATION SUPERVISOR * Michelle Carlson RN - 02/16/2024 5:58 PM CST Patient states she was able to tolerate jello and water and the pain medication helped. SPRING FABRICATION SUPERVISOR * Michelle Carlson RN - 02/16/2024 4:19 PM CST Patient to CT. SPRING FABRICATION SUPERVISOR * Robert Dunlap MD - 02/16/2024 12:21 PM CST HISTORY OF PRESENT ILLNESS Physician at bedside: [id number] Alannah Ruano is a 43 y.o. female, with past medical history of HTN, DM, PCOS, and GERD, who presents to the emergency department with abdominal pain which began yesterday. The patient states she started having dull right lower abdominal pain last night. This morning the pain became sharp and worsened, then she began vomiting. History of chronic constipation with flare last week, so she is currently passing bloody stool with mucous. Has IUD in place. Gastric sleeve placed in 2020. No history of hysterectomy or appendectomy. The patient denies any vaginal bleeding, vaginal discharge, dysuria, or fever. External Notes Reviewed: Outside office visit for gastroparesis and IBS last week Independent Historian: None Social Determinants of Health: None PAST MEDICAL HISTORY REVIEWED MEDICAL: Patient has a past medical history of Anxiety, Depression, Diabetes mellitus, GERD (gastroesophageal reflux disease), and HTN (hypertension). SURGICAL: Patient has a past surgical history that includes colonoscopy (11/01/2022) and esophagogastroduodenoscopy (11/01/2022). ALLERGIES Mushroom and Nut flavor PHYSICAL EXAM INITIAL VS BP: (!) 169/105 (02/16/24 1224), Heart Rate: 77 bpm (02/16/24 1224), Resp: 18 (02/16/24 1224), Pulse: 77 (02/16/24 1224), Temp: 97.3 ??F (36.3 ??C) (02/16/24 1224), Temp src: Oral (02/16/24 1224), SpO2: 98 % (02/16/24 1224), Height: 5' 4 (162.6 cm) (02/16/24 1240), Weight: 97.5 kg (215 lb) (02/16/24 1240), BMI (Calculated): (!) 36.88 (02/16/24 1240) No LMP recorded. Physical Exam Vitals and nursing note reviewed. Constitutional: General: She is not in acute distress. HENT: Head: Normocephalic and atraumatic. Right Ear: External ear normal. Left Ear: External ear normal. Nose: Nose normal. Mouth/Throat: Mouth: Mucous membranes are moist. Eyes: Pupils: Pupils are equal, round, and reactive to light. Pulmonary: Effort: Pulmonary effort is normal. Abdominal: Tenderness: There is abdominal tenderness. There is no guarding or rebound. Comments: Obese abdomen Right anterior abdominal tenderness No right flank tenderness Musculoskeletal: General: Normal range of motion. Cervical back: Normal range of motion. Skin: General: Skin is warm and dry. Neurological: Mental Status: She is alert. Mental status is at baseline. Psychiatric: Mood and Affect: Mood normal. Behavior: Behavior normal. DIAGNOSTICS LAB: CBC WITH DIFFERENTIAL - Abnormal Result Value WBC 8.6 RBC 5.00 (*) HEMOGLOBIN 15.6 (*) HEMATOCRIT 45.6 (*) MCV 91.1 MCH 31.1 MCHC 34.2 RDW 12.7 PLATELETS 274 MPV 7.9 (*) NEUTROPHILS 78 LYMPHOCYTES 15 MONOCYTES 6 EOSINOPHILS 1 BASOPHILS 1 NEUTROPHIL ABSOLUTE 6.70 LYMPHOCYTE ABSOLUTE 1.20 MONOCYTE ABSOLUTE 0.50 EOSINOPHIL ABSOLUTE 0.10 BASOPHILS ABSOLUTE 0.00 COMPREHENSIVE METABOLIC PANEL - Abnormal SODIUM 140 POTASSIUM 4.2 CHLORIDE 106 CO2 24 CALCIUM 9.1 BUN 11 CREATININE 1.00 (*) GLUCOSE 138 (*) TOTAL PROTEIN 6.7 ALBUMIN 4.0 BILIRUBIN TOTAL 0.5 ALKALINE PHOSPHATASE 69 AST 29 ALT 23 GFR >60 ANION GAP 10 URINALYSIS WITH REFLEX MICROSCOPIC - Abnormal COLOR UA Yellow CLARITY UA Clear SPECIFIC GRAVITY UA 1.033 PH UA 6.0 LEUKOCYTE ESTERASE UA Negative NITRITE UA Negative PROTEIN UA Negative GLUCOSE UA 3+ (*) KETONES UA Negative UROBILINOGEN UA Normal BILIRUBIN UA Negative BLOOD UA 3+ (*) WBC UA 0-2 RBC UA >100 (*) BACTERIA UA 1+ (*) EPITHELIAL CELLS, URINE 0-5 HYALINE CAST None Seen LIPASE - Normal LIPASE 27 HCG QUALITATIVE, URINE - Normal HCG QUAL URINE Negative COLOR UA Yellow CLARITY UA Clear EXTRA TUBE EXTRA TUBE (SST/GOLD) EXTRA TUBE (URINE MOTTA) RADIOLOGY: CT ABDOMEN PELVIS W CONTRAST Radiologist Impression IMPRESSION: 4 mm obstructing right mid ureteral stone The examination was performed with the adjustment of mA according to the patient size and/or the use of Iterative Reconstruction Technique. DICTATION LOCATION: Location [address] [place] [address] EKG: PROCEDURES Procedures MEDICAL DECISION MAKING AND PLAN OF CARE ED Course as of 02/16/24 1833 Sun Feb 16, 2024 1459 Patient seen by ED physician at bedside. History obtained and physical exam performed. Updatedthe patient on the expected course of treatment. They are agreeable. [SK] 1506 RBC UA(!): >100 [AM] 1624 Tiny right nephrolithiasis with some obstruction on my read of CT scan [AM] ED Course User Index [AM] Robert Dunlap MD [SK] Mariya Bartlett Scribe Medical Decision Making 43-year-old female with history of gastric sleeve and some chronic abdominal tenderness presenting with more acute onset right lower quadrant tenderness. Does have a history of kidney stones. Urinalysis with blood. Pain more anterior than flank so obtained a CT with contrast to ensure no other abnormalities such as perforated viscus or appendicitis or ovarian torsion. CT shows 4 mm right nephrolithiasis. Trying to avoid NSAIDs due to history of gastric sleeve. Feeling better after symptomatic management, tolerate p.o. and feels well enough to go home. Will try to find a local urologist with whom to follow-up with provided the number for urology here as well as signs and symptoms which would require return. List 1 or 2 critical diagnoses that were considered/evaluated (not all inclusive of differential diagnosis): As above Discussion/decision regarding admission vs outpatient management? Yes Amount and/or Complexity of Data Reviewed External Data Reviewed: notes. Labs: ordered. Decision-making details documented in ED Course. Radiology: ordered and independent interpretation performed. Decision-making details documented in ED Course. Risk OTC drugs. Prescription drug management. Parenteral controlled substances. Clinical Scoring & Consults Medications Administered During the ED Stay from 02/16/2024 1222 to 02/16/2024 1833 Date/Time Order Dose Route Action 02/16/2024 1245 HAIRSPRING FABRICATION SUPERVISOR sodium chloride flush injection 5 mL 5 mL IV Admin by Another Clinician (Comment) 02/16/2024 1245 HAIRSPRING FABRICATION SUPERVISOR ondansetron (ZOFRAN) 4 mg/2 mL injection 4 mg 4 mg IV Admin by Another Clinician (Comment) 02/16/2024 1245 HAIRSPRING FABRICATION SUPERVISOR ONDANSETRON HCL (PF) 4 MG/2 ML INJECTION SOLUTION (CABINET OVERRIDE) -- Not Given 02/16/2024 1537 HAIRSPRING FABRICATION SUPERVISOR morphine 4 mg/mL injection 4 mg 4 mg IV Given 02/16/2024 1537 HAIRSPRING FABRICATION SUPERVISOR metoclopramide (REGLAN) 5 mg/mL injection 10 mg 10 mg IV Given 02/16/2024 1627 HAIRSPRING FABRICATION SUPERVISOR iopamidoL (ISOVUE-370) 76% injection (drawn from multi-use bulk pack) 80 mL 80 mL IV Contrast Given 02/16/2024 1710 HAIRSPRING FABRICATION SUPERVISOR tamsulosin (FLOMAX) SR 24 hour capsule 0.4 mg 0.4 mg Oral Given 02/16/2024 1722 HAIRSPRING FABRICATION SUPERVISOR oxyCODONE (ROXICODONE) tablet 5 mg 5 mg Oral Given 02/16/2024 1722 HAIRSPRING FABRICATION SUPERVISOR acetaminophen (TYLENOL) tablet 1,000 mg 1,000 mg Oral Given . New Prescriptions for this Encounter HYDROCODONE-ACETAMINOPHEN (NORCO) 5-325 MG TABLET Take 1 Tablet by mouth every 4 hours as needed for Moderate Pain. Max Daily Amount: 6 Tablets TAMSULOSIN (FLOMAX) 0.4 MG CAPSULE Take 1 Capsule (0.4 mg) by mouth daily for 21 days. LAST VS BP: (!) 145/89 (02/16/24 1535), Heart Rate: 89 bpm (02/16/24 1710), Resp: 20 (02/16/24 171), Pulse: 90 (02/16/24 1710), Temp: 97.3 ??F (36.3 ??C) (02/16/24 1224), Temp src: Oral (02/16/24 1224), SpO2: 100 % (02/16/24 1710) CLINICAL IMPRESSION Final diagnoses: [N20.0] Right nephrolithiasis (Primary) DISPOSITION, EDUCATION AND MEDICATION RECONCILIATION Medications reconciled. See after visit summary for patient education on discharged patients. ED Disposition ED Disposition Discharge Condition Stable User Robert Dunlap MD Date/Time Sun Feb 16, 2024 6:00 PM Comment -- ATTESTATION STATEMENTS This note is prepared by Mariya Bartlett as a scribe for Robert Dunlap MD. The scribe's documentation has been prepared under my direction and personally reviewed by me in its entirety. I confirm that the note above accurately reflects all work, treatment, procedures, and medical decision making performed by me. Despite this, dictation software may have been utilized, andtherefore errors or substitutions may occur. SPRING FABRICATION SUPERVISOR documented in this encounter Plan of Treatment Not on file documented as of this encounter Procedures Procedure Name Priority Date/Time Associated Diagnosis Comments CT ABDOMEN PELVIS W CONTRAST Stat 02/16/2024 4:26 PM HAIRSPRING FABRICATION SUPERVISOR EXTRA TUBE (URINE MOTTA) Stat 02/16/2024 2:37 PM HAIRSPRING FABRICATION SUPERVISOR URINALYSIS W/REFLEX MICROSCOPIC Stat 02/16/2024 2:37 PM HAIRSPRING FABRICATION SUPERVISOR HCG QUALITATIVE, URINE Stat 2:37 PM HAIRSPRING FABRICATION SUPERVISOR EXTRA TUBE (SST/GOLD) Stat 02/16/2024 12:41 PM HAIRSPRING FABRICATION SUPERVISOR EXTRA TUBE Stat 02/16/2024 12:41 PM HAIRSPRING FABRICATION SUPERVISOR CBC WITH DIFFERENTIAL Stat 02/16/2024 12:41 PM HAIRSPRING FABRICATION SUPERVISOR LIPASE Stat 02/16/2024 12:41 PM HAIRSPRING FABRICATION SUPERVISOR COMPREHENSIVE METABOLIC PANEL Stat 02/16/2024 12:41 PM HAIRSPRING FABRICATION SUPERVISOR documented in this encounter Results * CT ABDOMEN PELVIS W CONTRAST (02/16/2024 4:26 PM HAIRSPRING FABRICATION SUPERVISOR) Anatomical Region Laterality Modality Abdomen Computed Tomogra phy 02/16/2024 4:27 PM HAIRSPRING FABRICATION SUPERVISOR Impressions 02/16/2024 4:32 PM HAIRSPRING FABRICATION SUPERVISOR IMPRESSION: 4 mm obstructing right mid ureteral stone The examination was performed with the adjustment of mA according to the patient size and/or the use of Iterative Reconstruction Technique. ?? DICTATION LOCATION: Location [address] [place] [address] 02/16/2024 4:[address] HAIRSPRING FABRICATION SUPERVISOR CT ABDOMEN AND PELVIS WITH IV CONTRAST [...] use of Iterative Reconstruction Technique. DICTATION LOCATION: Location [address] [place] [address] ORDERABLES * EXTRA TUBE (URINE MOTTA) (02/16/2024 2:37 PM HAIRSPRING FABRICATION SUPERVISOR) Urine URINE SPECIMEN OBTAINED BY CLEAN CATCH PROCEDURE / Unknown Collection / Unknown 02/16/2024 2:37 PM HAIRSPRING FABRICATION SUPERVISOR 02/16/2024 2:50 PM HAIRSPRING FABRICATION SUPERVISOR Robert Dunlap MD URINE ORDERABLE S Performing Organization Address [facility] Co de Phone Number [facility]# [id number] [address] [place] [address] * HCG QUALITATIVE, URINE (02/16/2024 2:37 PM HAIRSPRING FABRICATION SUPERVISOR) Pathologist [facility] HCG QUAL URINE Negative Negative 02/16/2024 3:19 PM HAIRSPRING FABRICATION SUPERVISOR [facility] COLOR UA Yellow Pale to Dark Yellow 02/16/2024 3:19 PM HAIRSPRING FABRICATION SUPERVISOR [facility] CLARITY UA Clear Clear 02/16/2024 3:19 PM HAIRSPRING FABRICATION SUPERVISOR [facility] Urine URINE SPECIMEN OBTAINED BY CLEAN CATCH PROCEDURE / Unknown Collection / Unknown 02/16/2024 2:37 PM HAIRSPRING FABRICATION SUPERVISOR 02/16/2024 2:49 PM HAIRSPRING FABRICATION SUPERVISOR Robert Dunlap MD URINE ORDERABLE S Performing Organization Address City/[facility]/ZIP Co de Phone Number [facility] CLIA# [id number] [place] [address] * (ABNORMAL) URINALYSIS WITH REFLEX MICROSCOPIC (02/16/2024 2:37 PM HAIRSPRING FABRICATION SUPERVISOR) Pathologist [facility] COLOR UA Yellow Pale to Dark Yellow 02/16/2024 2:53 PM [facility] CLARITY UA Clear Clear 02/16/2024 2:53 PM [facility] SPECIFIC GRAVITY UA 1.033 1.003 - 1.035 02/16/2024 2:53 PM [facility] PH UA 6.0 5.0 - 8.0 02/16/2024 2:53 PM [facility] LEUKOCYTE ESTERASE UA Negative Negative 02/16/2024 2:53 PM [facility] NITRITE UA Negative Negative 02/16/2024 2:53 PM [facility] PROTEIN UA Negative Negative 02/16/2024 2:53 PM [facility] GLUCOSE UA 3+(A) Negative 02/16/2024 2:53 PM [facility] KETONES UA Negative Negative 02/16/2024 2:53 PM [facility] UROBILINOGEN UA Normal <2.0 mg/dL 2:53 PM HAIRSPRING FABRICATION SUPERVISOR [facility] BILIRUBIN UA Negative Negative 02/16/2024 2:53 PM [facility] BLOOD UA 3+(A) Negative 02/16/2024 2:53 PM [facility] WBC UA 0-2 0 - 2 /hpf 02/16/2024 2:53 PM [facility] RBC UA >100(A) 0 - 2 /hpf 02/16/2024 2:53 PM HAIRSPRING FABRICATION SUPERVISOR [facility] BACTERIA UA 1+(A) Negative /hpf 02/16/2024 2:53 PM [facility] EPITHELIAL CELLS, URINE 0-5 0 - 5 /hpf 02/16/2024 2:53 PM [facility] HYALINE CAST None Seen None Seen, 0-2 /lpf 02/16/2024 2:53 PM [facility] Urine URINE SPECIMEN OBTAINED BY CLEAN CATCH PROCEDURE / Unknown Collection / Unknown 02/16/2024 2:37 PM HAIRSPRING FABRICATION SUPERVISOR 02/16/2024 2:49 PM HAIRSPRING FABRICATION SUPERVISOR Robert Dunlap MD URINE ORDERABLE S [facility]# [id number] [address] [place] [address] * EXTRA TUBE (SST/GOLD) (02/16/2024 12:41 PM HAIRSPRING FABRICATION SUPERVISOR) Blood Venipuncture / Unknown 02/16/2024 12:41 PM HAIRSPRING FABRICATION SUPERVISOR 02/16/2024 12:50 PM HAIRSPRING FABRICATION SUPERVISOR Deedee DOWELL CHEMISTRY ORDERABLES [facility]# [id number] [address] [place] [address] * LIPASE (02/16/2024 12:41 PM HAIRSPRING FABRICATION SUPERVISOR) LIPASE 27 13 - 60 U/L 02/16/2024 1:18 PM HAIRSPRING FABRICATION SUPERVISOR [facility] [employer] [facility] Blood Venipuncture / Unknown 02/16/2024 12:41 PM HAIRSPRING FABRICATION SUPERVISOR 02/16/2024 12:46 PM HAIRSPRING FABRICATION SUPERVISOR Robert Dunlap MD CHEMISTRY ORDER TOMMY Performing Organization Address City/[facility]/ZIP Co de Phone Number [facility]# [id number] [place] [address] * (ABNORMAL) COMPREHENSIVE METABOLIC PANEL (02/16/2024 12:41 PM HAIRSPRING FABRICATION SUPERVISOR) SODIUM 140 136 - 145 mmol/L 02/16/2024 1:18 PM HAIRSPRING FABRICATION SUPERVISOR [facility] POTASSIUM 4.2 3.4 - 5.1 mmol/L 02/16/2024 1:18 PM [employer] [facility] CHLORIDE 106 98 - 107 mmol/L 02/16/2024 1:18 PM [employer] [facility] CO2 24 22 - 29 mmol/L 02/16/2024 1:18 PM [facility] CALCIUM 9.1 8.6 - 10.4 mg/dL 02/16/2024 1:18 PM [facility] BUN 11 6 - 20 mg/dL 02/16/2024 1:18 PM [facility] CREATININE 1.00(H) 0.51 - 0.95 mg/dL 02/16/2024 1:18 PM [facility] GLUCOSE 138(H) 74 - 99 mg/dL 02/16/2024 1:18 PM [facility] TOTAL PROTEIN 6.7 6.3 - 8.7 g/dL 02/16/2024 1:18 PM [facility] ALBUMIN 4.0 3.5 - 5.2 g/dL 02/16/2024 1:18 PM [facility] BILIRUBIN TOTAL 0.5 0.3 - 1.2 mg/dL 02/16/2024 1:18 PM [facility] ALKALINE PHOSPHATASE 69 40 - 150 U/L 02/16/2024 1:18 PM [facility] AST 29 0 - 33 U/L 02/16/2024 1:18 PM [facility] ALT 23 0 - 33 U/L 02/16/2024 1:18 PM [facility] GFR >60 >=60 mL/min/1.7 3 sq meter 02/16/2024 1:18 PM [facility] Comment:eGFR calculated with 2020 CKD-EPI equation. Vegetarian diet, extremely high or low muscle mass, and may affect results. Cystatin C with Glomerular Filtration Rate is a suitable alternative for these patients. ANION GAP 10 8 - 16 mmol/L 02/16/2024 1:18 PM [facility] Blood Venipuncture / Unknown 02/16/2024 12:41 PM [employer] 02/16/2024 12:46 PM [employer] Robert Dunlap MD CHEMISTRY ORDER [facility] CLIA# [id number] [place] [address] * (ABNORMAL) CBC WITH DIFFERENTIAL (02/16/2024 12:41 PM [employer]PER[employer]) WBC 8.6 4.5 - 10.5 K/uL 02/16/2024 12:56 PM [employer] [facility] RBC 5.00(H) 3.90 - 4.90 M/uL 02/16/2024 12:56 PM [employer] [facility] HEMOGLOBIN 15.6(H) 11.8 - 14.8 g/dL 02/16/2024 12:56 PM [employer] [facility] HEMATOCRIT 45.6(H) 35.5 - 44.0 % 02/16/2024 12:56 PM [employer] [facility] MCV 91.1 82.0 - 99.0 fL 02/16/2024 12:56 PM [employer]PER[employer] [facility] [employer] [facility] MCH 31.1 27.8 - 34.5 pg 02/16/2024 12:56 PM [employer] [facility] [employer] [facility] MCHC 34.2 32.5 - 35.5 g/dL 02/16/2024 12:56 PM [employer]PER[employer] [facility] [employer] [facility] RDW 12.7 11.5 - 14.5 % 02/16/2024 12:56 PM [employer] [facility] [employer] [facility] PLATELETS 274 160 - 420 K/uL 02/16/2024 12:56 PM [employer] [facility] [employer] [facility] MPV 7.9(L) 8.7 - 12.7 fL 02/16/2024 12:56 PM [employer] [facility] NEUTROPHILS 78 % 02/16/2024 12:56 PM [employer] [facility] [employer] [facility] LYMPHOCYTES 15 % 02/16/2024 12:56 PM [employer] SUPER[employer] [facility] MONOCYTES 6 % 02/16/2024 12:56 PM [employer] [facility] EOSINOPHILS 1 % 02/16/2024 12:56 PM [employer] [facility] BASOPHILS 1 % 02/16/2024 12:56 PM [employer] [facility] NEUTROPHIL ABSOLUTE 6.70 1.90 - 7.00 K/uL 02/16/2024 12:56 PM [employer] [facility] LYMPHOCYTE ABSOLUTE 1.20 0.70 - 4.50 K/uL 02/16/2024 12:56 PM [employer] [facility] MONOCYTE ABSOLUTE 0.50 0.10 - 1.30 K/uL 02/16/2024 12:56 PM [employer] [facility] EOSINOPHIL ABSOLUTE 0.10 0.00 - 0.70 K/uL 02/16/2024 12:56 PM [employer] [facility] BASOPHILS ABSOLUTE 0.00 0.00 - 0.20 K/uL 02/16/2024 12:56 PM [employer]PER[employer] [facility] Blood Venipuncture / Unknown 02/16/2024 12:41 PM [employer] SUPER[employer] 02/16/2024 12:46 PM [employer] Robert Dunlap MD HEMATOLOGY [facility] CLIA# [id number] [place] [address] documented in this encounter Visit Diagnoses Diagnosis Right nephrolithiasis- Primary documented in this encounter Administered Medications Inactive Administered Medications - up to 3 most recent administrations Medication Order MAR Action Action Date Dose Rate Site acetaminophen (TYLENOL) tablet 1,000 mg 1,000 mg, Oral, ONE TIME ONLY, 1 dose, On 02/16/24 at 1730, Routine Given 02/16/2024 5:22 PM [employer] 1,000 mg dextrose 5 % in water 250 mL flush bag 25 mL 25 mL, IV, SEE ADMIN INSTRUCTIONS, Starting on 02/16/24 at 1230, Until 02/16/24 at 203, Routine iopamidoL (ISOVUE-370) 76% injection (drawn from multi-use bulk pack) 80 mL 80 mL, IV, INTRA-PROCEDURE ONCE, 1 dose, Starting on 02/16/24 at 1621, Until 02/16/24 at 1627, Routine Contrast Given 02/16/2024 4:27 PM [employer] 80 mL metoclopramide (REGLAN) 5 mg/mL injection 10 mg 10 mg, IV, ONE TIME ONLY, 1 dose, On 02/16/24 at 1515, Routine Given 02/16/2024 3:37 PM [employer] 10 mg morphine 4 mg/mL injection 4 mg 4 mg, IV, ONE TIME ONLY, 1 dose, On 02/16/24 at 1515, Routine Given 02/16/2024 3:37 PM [employer] 4 mg ondansetron (ZOFRAN) 4 mg/2 mL injection 4 mg 4 mg, IV, ONE TIME ONLY, 1 dose, On 02/16/24 at 1245, Routine Admin by Another Clinician (Comment) 02/16/2024 12:45 PM [employer] 4 mg oxyCODONE (ROXICODONE) tablet 5 mg 5 mg, Oral, ONE TIME ONLY, 1 dose, On 02/16/24 at 1715, Routine Given 02/16/2024 5:22 PM [employer] 5 mg sodium chloride 0.9 % flush bag 25 mL 25 mL, IV, SEE ADMIN INSTRUCTIONS, Starting on 02/16/24 at 1230, Until 02/16/24 at 2032, Routine sodium chloride flush injection 5 mL 5 mL, IV, EVERY 12 HOURS (BlD), First dose on 02/16/24 at 1245, Until Discontinued, Routine Admin by Another Clinician (Comment) 02/16/2024 12:45 PM [employer] 5 mL sodium chloride flush injection 5 mL 5 mL, IV, SEE ADMIN INSTRUCTIONS, Starting on 02/16/24 at 1230, Until 02/16/24 at 2032, Routine tamsulosin (FLOMAX) SR 24 hour capsule 0.4 mg 0.4 mg, Oral, ONE TIME ONLY, 1 dose, On 02/16/24 at 1700, Routine Given 02/16/2024 5:10 PM [employer] 0.4 mg documented in this encounter Active and Recently Administered Medications Times are shown in [employer]. Scheduled Medication Order 02/14/2024 02/15/2024 02/16/2024 acetaminophen (TYLENOL) tablet 1,000 mg (COMPLETED) 1,000 mg, Oral, ONE TIME ONLY, 1 dose, On 02/16/24 at 1730, Routine 1722 (Given - Provid er: Michelle Carlson RN) dextrose 5 % in water 250 mL flush bag 25 mL 25 mL, IV, SEE ADMIN INSTRUCTIONS, Starting on 02/16/24 at 1230, Until 02/16/24 at 2032, Routine iopamidoL (ISOVUE-370) 76% injection (drawn from multi-use bulk pack) 80 mL (COMPLETED) 80 mL, IV, INTRA-PROCEDURE ONCE, 1 dose, Starting on 02/16/24 at 1621, Until 02/16/24 at 1627, Routine 1627 (Contrast Given - Provider: Silvano Alexis, RT) metoclopramide (REGLAN) 5 mg/mL injection 10 mg (COMPLETED) 10 mg, IV, ONE TIME ONLY, 1 dose, On 02/16/24 at 1515, Routine 1537 (Given - Provid er: Michelle Carlson RN) morphine 4 mg/mL injection 4 mg (COMPLETED) 4 mg, IV, ONE TIME ONLY, 1 dose, On 02/16/24 at 1515, Routine 1537 (Given - Provid er: Michelle Carlson RN) ondansetron (ZOFRAN) 4 mg/2 mL injection 4 mg (COMPLETED) 4 mg, IV, ONE TIME ONLY, 1 dose, On 02/16/24 at 1245, Routine 1245 (Admin by [facility] Clinician (Comment) - Provider: Michelle Carlson RN) oxyCODONE (ROXICODONE) tablet 5 mg (COMPLETED) 5 mg, Oral, ONE TIME ONLY, 1 dose, On 02/16/24 at 1715, Routine 1722 (Given - Provid er: Michelle Carlson RN) sodium chloride 0.9 % flush bag 25 mL 25 mL, IV, SEE ADMIN INSTRUCTIONS, Starting on 02/16/24 at 1230, Until 02/16/24 at 2032, Routine sodium chloride flush injection 5 mL 5 mL, IV, EVERY 12 HOURS (BlD), First dose on 02/16/24 at 1245, Until Discontinued, Routine 1245 (Admin by [facility] er Clinician (Comment) - Provider: Michelle Carlson RN) sodium chloride flush injection 5 mL 5 mL, IV, SEE ADMIN INSTRUCTIONS, Starting on 02/16/24 at 1230, Until 02/16/24 at 2032, Routine tamsulosin (FLOMAX) SR 24 hour capsule 0.4 mg (COMPLETED) 0.4 mg, Oral, ONE TIME ONLY, 1 dose, On 02/16/24 at 1700, Routine 1710 (Given - Provid er: Michelle Carlson RN) documented in this encounter Care Teams Knitting Machine Fixer Head Relationship Specialty Start Date End Date Deedee Low PA PCP - General Physician Physiology Teacher 01/02/16 documented as of this encounter
--- OUTSIDE RECORDS SUMMARY | 2024-02-24 17:23 | XMS_ITS | Encounter Summary ---
Author Organization [facility] Address [address] [place] [address] Care Team Providers Care Body Masker Name Role Phone Deedee Low Primary Care Provider [phone] Reason for Visit * Behavioral Health - Outpatient (Routine) - Closed Specialty Diagnoses / Procedures Referred By Angelita silva Referred To Contact Behavioral Health Diagnoses MDD recurrent Mod Procedures [facility] Adult [facility] [address] [place] [address] Becca Almeida MD [address] [facility] [address] [place] [address] Referral ID Status Reason Start Date Expiration Date Visits Re quested Visits Authorized [id number] Closed 01/11/2016 02/10/2017 1 4 Encounter Details Date Type Department Care Team (Latest Contact Info) Description 01/11/2016 7:00 AM CDT - 01/11/2016 11:59 PM CDT Hospital Encounter [facility] IOP [facility] [address] [place] [phone] Becca Almeida MD [address] [facility] [address] [place] [address] Major depressive disorder, recurrent, moderate (CMS/HCC) Discharge Disposition: Home or Self Care Social History Tobacco Use Types Packs/Day Years Used Date Smoking Tobacco: Never Alcohol Use Standard Drinks/Week Comments [...] Sign Reading Time Taken Comments Blood Pressure 126/98 01/11/2016 11:51 AM CDT Pulse 90 01/11/2016 11:51 AM CDT Temperature 36.4 ??C (97.5 ??F) 01/11/2016 11:51 AM C DT Respiratory Rate 20 01/11/2016 11:51 AM CDT Oxygen Saturation - - Inhaled Oxygen Concentration - - Weight 115.2 kg (254 lb) 01/11/2016 11:51 AM CDT Height 162.6 cm (5' 4 ) 01/11/2016 11:51 AM CDT Body Mass Index 43.6 01/11/2016 11:51 AM CDT documented in this encounter Medications at Time of Discharge Medication Sig Dispensed Refills Start Date End Date cholecalciferol 50,000 unit CapsuleIndications:1/wk Saturday Take 50,000 [...] by mouth daily. fluticasone (FLONASE) 50 mcg/spray [place], SuspensionIndications:a llergic rhinitis,pt takes in the evening 5pm Administer 2 Sprays in each nostril daily. rizatriptan (MAXALT ETL LEAD) 10 mg Tablet, Rapid DissolveIndications:hea dache disorder Place 10 mg inside cheek every 2 hours as needed for Migraine may repeat in 2 hours; max dose 30mg in 24 hours . documented as of this encounter Progress Notes * Michelle Holden LPC - 01/12/2016 12:20 PM CDT All entries by JOSE ENRIQUE Tay from 01/11/2016 reviewed. Aydee Valenzuela LPC [facility] license #[id number] * Hamida Avendaño - 01/11/2016 5:15 PM CDT [facility] Note Group start time: 1050 Group end time: 1150 Type of Group: process group Alannah's primary Treatment Plan goal(s): pt's day Alannah's response to group therapy: Cognitive Function: oriented x3 Affect: mood-congruent Mood: depressed Functional Status: intact Interpersonal: interested Participation Level: minimally participated Safety issues of concern for Alannah Are there any safety concerns at this time for Alannah? no Medication Compliance as reported by Alannah: Are there any concerns with medication compliance at this time? no Clinical impressions for this session of group therapy, including progress toward Alannah's statedgoal: Pt did not share on a personal level. Pt was quiet but did make a joke in group. Pt seemed tobenefit from the discussion of the function of dreams. Pt listened while others talked about how their brain and how they process dreams. Therapist provided structure for group, asked questions, madesuggestions, and provided support. * Johana Diaz LPC - 01/11/2016 4:09 PM CDT [facility] Intensive Outpatient Therapy Note Group start time: 1230 Group end time: 1330 Type of Group: process group Alannah's primary Treatment Plan goal(s): pt first day Alannah's response to group therapy: Cognitive Function: oriented x3 Affect: mood-congruent Mood: within normal limits Functional Status: intact Interpersonal: normal and Intermittently interactive Participation Level: minimally participated Safety issues of concern for Alannah Are there any safety concerns at this time for Alannah? none Medication Compliance as reported by Alannah: Are there any concerns with medication compliance at this time? none Clinical impressions for this session of group therapy, including progress toward Alannah's statedgoal: Group members participated in communication exercise. Group members shared positive experiences, accomplishments, self statements with group members. Group members were able to gain insight into how positive thinking/thoughts can improve self esteem and decrease sx of depression, anxiety and anger. Alannah states I am proud that I got here this morning and was able to share. If I did not share today i don't think I would have come back. Group members gave encouraging and supportive feedback. * Johana Diaz LPC - 01/11/2016 3:23 PM CDT [facility] Intensive Outpatient Therapy Note Group start time: 935 Group end time: 1035 Type of Group: process group Alannah's primary Treatment Plan goal(s): pt first day Alannah's response to group therapy: Cognitive Function: tangential Affect: increased in intensity Mood: tearful and sad Functional Status: intact Interpersonal: normal and Interactive Participation Level: actively participated Safety issues of concern for Alannah Are there any safety concerns at this time for Alannah? Yes pt contracts to keep self safe Medication Compliance as reported by Alannah: Are there any concerns with medication compliance at this time? no Clinical impressions for this session of group therapy, including progress toward Alannah's statedgoal: Pt states I have struggled with depression and anxiety. I had a nervous breakdown in March. I took time off my work and i decided to get a dog to help with my anxiety. I was able to bring him to work. He got sick and in November. He of congestive heart failure. I questionif I did something wrong. My guilt and anxiety are so high. I feel I don't deserve to have another dog. I love him and I miss him. I use to struggle with self injury but have not done that in 4 years. Group members welcomed pt and gave supportive and encouraging feedback. Pt may have benefited by listening to group members share effective coping skills for depression, bipolar, and anxiety. * Johana Diaz LPC - 01/11/2016 2:27 PM CDT Assessment Integration All assessment data is analyzed to facilitate prioritizing of the patient's needs and to assist with development of the individualized plan of care. Alannah Ruano is a 35 y.o. female admitted to psych [facility] on 01/11/2016 from inpatient under the care of Dr. Becca Almeida for depression. Psychosocial: RFV/CC: I am having trouble with depression and anxiety/I thought about OD on pills today (01/02/16 7272) Narrative Summary/History of Present Illness: Precipitating event(s) within past 24-72 hours leading to presentation to the hospital: pt is 35 year old female presented to Intake for depression, anxiety, and SI with plan to OD alone via private vehicle.?? Pt has history of depression/anxiety and does not have a psychiatrist.?? Pt has an individual therapist she sees weekly and PCP for medication management.?? Pt reported increased depression, sadness, and anxiety since her dog in the past month.?? Pt reported being stressed, difficulty concentrating, and an overwhelming confusion which ends up in a panic attack.? not remembering things, headaches, crying a lot and panic attacks over stupid things ?? When asked what are stupid things, pt replied I forgot how to make spaghetti I forgot my classroom ?? I forgot my login on the computer ?? [facility] [employer] [facility] [employer], I forgot if I was by myself or if I am with someone. ?? Pt reported increased worthlessness, feelings of hopelessness, feelings of helplessness, increased crying, isolating, and impaired concentration.?? Pt reported increased anxiety and panic attacks.?? Pt reported not being able to function at home and community.?? Pt was not able to contract for safety and lives alone.?? Pt denies HI/Psychosis.?? Pt denies illicit drugs and EtOH use.?? Pt denies accessto guns/weapons.?? Pt reported medical history of HTN, Diabetes, and migraines.?? Pt was calm, cooperative, teary, flat affect with some eye contact.?? Per Dr. Mckay, pt to be admitted to [facility].?? Ptis agreeable with the plan.?? Major Change/Loss/Stressor: (01/02/16 161) Nursing assessment: Anxiety, Depression, GERD, Headaches, HTN, Headaches PCP/Last physical exam: Dr. Deedee Low/within one year Current meds: Current Outpatient Prescriptions Medication Sig Dispense Refill ??? cholecalciferol 50,000 unit Capsule Take 50,000 Units by mouth. ??? sertraline (ZOLOFT) 100 mg tablet Take 2 Tablet (200 mg) by mouth daily. 30 Tablet 0 ??? traZODone (DESYREL) 50 mg tablet Take 1 Tablet (50 mg) by mouth nightly as needed for Insomnia.15 Tablet 0 ??? prochlorperazine maleate (COMPAZINE) 10 mg tablet Take 1 Tablet (10 mg) by mouth every 6 hours as needed for Nausea, Emesis or Other (See Comment) (migraine). 30 Tablet 0 ??? insulin glargine (TOUJEO SOLOSTAR) 300 unit/mL pen syringe Inject 14 Units by subcutaneous injection daily at bedtime. ??? lisinopril (PRINIVIL) 10 mg tablet Take 10 mg by mouth daily at bedtime. ??? fexofenadine (OCHOA) 180 mg tablet Take 180 mg by mouth daily with supper. ??? albuterol HFA 90 mcg inhaler Take 2 Puffs by inhalation every 6 hours as needed for Shortness of Breath. ? ? dapagliflozin-metFORMIN (XIGDUO XR) 5-1,000 mg tablet, IR & ER, biphasic 24hr Take 1 Tabletby mouth 2 times daily. ??? famotidine (PEPCID) 20 mg tablet Take 20 mg by mouth daily. ??? ondansetron (ZOFRAN ODT) 8 mg Tablet, Rapid Dissolve Take 8 mg by mouth every 6 hours as neededfor Nausea, Emesis or Nausea/Emesis Dissolve tablet on top of tongue, then swallow with saliva. . ??? fenofibrate (LOFIBRA) 160 mg Tablet Take 160 mg by mouth daily. ??? fluticasone (FLONASE) 50 mcg/spray [place], Suspension Administer 2 Sprays in each nostril daily. ??? rizatriptan (MAXALT ETL LEAD) 10 mg Tablet, Rapid Dissolve Place 10 mg inside cheek every 2 hours asneeded for Migraine may repeat in 2 hours; max dose 30mg in 24 hours . ??? clonazePAM (KlonoPIN) 0.5 mg Tablet Take 0.5 mg by mouth 3 times daily as needed for Anxiety. No current facility-administered medications for this encounter. H&P: AXIS I:?? Major depressive disorder, recurrent. ?? AXIS II:?? Deferred. ?? AXIS III: 1. Diabetes mellitus. 2. Hypertension. 3. Asthma. 4. Migraines. ?? AXIS IV:?? School. ?? AXIS V:?? 50. CLINICAL IMPRESSION: Pt appears tearful and scared. Pt motivated for treatment and states she wantsto get better. Pt discussed triggers of depression (recent loss of her dog). Pt discussed several stressors that increases anxiety (new home, job, poor support system) Problem List: A S D 1. Depression, SI, Grief X 2. Anxiety X 3. 4. 5. A = Active problem S = Stable problem D = Deferred problem Deferred problem(s) will be addressed at discharge (summary & instructions) E HELPER * Shantelle Jaimes RN - 01/11/2016 12:23 PM CDT Patient Alannah Ruano admitted to [facility] today under the care of with complaint/reason for admission they recommended it when I left the hospital . Pt reports long history of depression and anxiety; was hospitalized recently with S/I and states this was her first since age 15. Pt identifies anxiety and numerous health problems as primary stressors. Pt reports she is insulin dependent diabetic possibly due to gastroparesis & that she is unable to check her blood sugar due to extreme panic attacks with needles (reports PCP checks monthly); also reports suffering from frequent migraines since adolescence and that migraines are accompanied by N/V and blurred vision. She st ates have had this migraine for days and rates pain at 5/10 scale even though she has had all morning medications. She rates current depression at 5/10 scale and anxiety at 7/10 scale. Nursing assessment completed. Pt denies any current SI/HI plan or intent. Pt denies any substance abuse issues. Pt is morbidly obese and tends to attribute this to gastroparesis. Pt is tearful during assessment but states I feel guilty for the blessed life I have been given and reports no relationship with parents or family support and identifies 1 friend. Rights given/ Consents signed/ Confidentiality discussed/ Pt safety addressed/ Questions answered. Both auditory and visual are patient's preferred learning styles. Barriers to learning identified as Pt's identified educational needs are specific to symptom management/stabalization and coping skills. Patient special needs are related to Diabetic care management. Pt oriented to unit and unit guidelines. Inpatient information reviewed. Vitals WNL except for B/P 126/98; pulse 90. PCP Toyin Low MD. Last physical - recent hospitalization. Nurse will continue to provide support; will provide diabetic care instruction and monitor patient throughout the course of treatment. documented in this encounter H&P Notes * Becca Almeida MD - 01/13/2016 8:28 AM CDT [place], [place] [address] Behavioral Health History and Physical CSN: [id number] IDENTIFYING DATA This is a 35-year-old, single, female. CHIEF COMPLAINT Anxiety and depression. HISTORY OF PRESENT ILLNESS A 35-year-old, female reports that she was admitted to [facility] last week from 01/01 to 01/06 for worsening depression and panic attacks. Per report, she presented to intake with complaints of worsening depression and suicidal ideations with plan to overdose or drive off the road. The patient endorsed several symptoms of severe depression including depressed mood, anhedonia, low energy, poor motivation, feelings of helplessness, hopelessness, worthlessness, and guilt. She deniedany symptoms of sharron, hypomania, or psychosis. Clearly denied current suicidal or homicidal ideas.Gave informed consent for treatment, agreed to comply with recommendations, and seek help as soon as needed. Talking about her stressors, she said that school is the big stressors. 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 Since then, she is having hard time to deal with stressors. Per intake note, the patient was brought to intake for depression, anxiety, and suicidal ideations with plan to overdose. The patient reports long history of depression and anxiety and does not have a psychiatrist and seeking primary care physician for medication management. The patient reported increasing depression, sadness, and anxiety since her dog in the past month. The patient complained of not remembering things, headaches, crying a lot, and panic attacks over stupid things. Talking about stupid things, the patient said that I forgot how to make spaghetti, I forgot my classroom, I forgot my login on [employer], when at [employer] I forgot if I was by myself or if I am with someone. The patient reported increased anxiety and panic attacks. The patient was admitted to hospital and discharged upon stabilization with recommendation to pursue IOP. PAST PSYCHIATRIC HISTORY First psychiatric contact at age 13. HOSPITALIZATIONS First at age 15 in [place], [place] and second last week at [facility]. SUICIDE ATTEMPTS Overdose attempt at age 15. SUBSTANCE ABUSE HISTORY Denied any. LEGAL PROBLEMS Denied any. PAST MEDICAL HISTORY Diabetes mellitus, hypertension, asthma, and migraines. ALLERGIES Mushrooms and nuts. FAMILY HISTORY Sister has bipolar disorder. Father has depression. Nephew has autism and schizophrenia. SOCIAL HISTORY Education: In college. 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 MARITAL HISTORY Denies ever being or having any children. MENTAL STATUS EXAMINATION The patient is alert and oriented x3. Pleasant, cooperative, made fair eye contact during interview. No psychomotor agitation or retardation during interview. Grooming and hygiene fair. Mood and affect normal. Flow of thought normal. Thought content, denied any auditory or visual hallucinations, del usions, obsessions, compulsions, paranoia, suicidal, or homicidal thoughts. Insight and judgment fair. DIAGNOSES AXIS I: Major depressive disorder, recurrent. AXIS II: Deferred. AXIS III: 1. Diabetes mellitus. 2. Hypertension. 3. Asthma. 4. Migraines. AXIS IV: School. AXIS V: 50. RECOMMENDATIONS 1. I discussed with the patient about available treatment options, risks and benefits of treatment,and need for followup. She gave informed consent to continue current medications including Zoloft 200 mg q.a.m. and Klonopin 0.5 mg t.i.d. The medications will be continued and response will be monitored. 2. Psychosocial education and support will be provided, collateral information will be obtained, and individualized treatment plan will be developed. RR:MEDQ DID: [id number] Dictated by: Becca Almeida M.D. * Becca Almeida MD - 01/11/2016 10:27 AM CDT Patient seen dictation will be done. DX-MDD,Rec documented in this encounter Plan of Treatment Not on file documented as of this encounter Visit Diagnoses Not on filedocumented in this encounter Care Teams Body Masker Relationship Specialty Start Date End Date Deedee Low PA PCP - General Physician Juvenile Court Liaison 01/02/16 documented as of this encounter
--- OUTSIDE RECORDS SUMMARY | 2024-02-24 17:23 | XMS_ITS | Encounter Summary ---
Author Organization [facility] Address [address] [place] [address] Care Team Providers Care Business Executive Name Role Phone Deedee Low Primary Care Provider [phone] Reason for Referral * Eval and Treat (Routine) - Closed Specialty Diagnoses / Procedures Referred By Angelita silva Referred To Contact Family Practice Diagnoses Palpitations Hamida Lal DO [address] [address] Referral ID Status Reason Start Date Expiration Date Visits Re quested Visits Authorized [id number] Closed 07/12/2020 07/12/2021 1 1 Reason for Visit * Reason Comments Chest Pain pain for about a day has been feeling her chest beating for about three days Encounter Details Date Type Department Care Team (Late st Contact Info) Description 07/12/2020 11:05 AM CDT Office Visit [facility] [place] [address] [place] [id number] Hamida Lal DO [address] [address] Palpitations (Primary Dx); Anxiety state Social History Tobacco Use Types Packs/Day Years [...] have Coronavirus / COVID-19? Unable to assess 07/12/2020 11:03 AM CDT documented as of this encounter Last Filed Vital Signs Vital Sign Reading Time Taken Comments Blood Pressure 136/88 07/12/2020 11:07 AM CDT Pulse 97 07/12/2020 11:07 AM CDT Temperature 37 ??C (98.6 ??F) 07/12/2020 11:07 AM CDT Respiratory Rate 19 07/12/2020 11:07 AM CDT Oxygen Saturation 98% 07/12/2020 11:07 AM CDT Inhaled Oxygen Concentration - - Weight 76.2 kg (168 lb) 07/12/2020 11:07 AM CDT Height 167.6 cm (5' 6 ) 07/12/2020 11:07 AM CDT Body Mass Index 27.12 07/12/2020 11:07 AM CDT documented in this encounter Progress Notes * Hamida Lal, - 07/12/2020 11:05 AM CDTAssociated Order(s): EKG Post-Procedure Diagnose(s): Palpitations HISTORY OF PRESENT ILLNESS Alannah Ruano, a 40 y.o. female presents with a Chief Complaint of Chest Pain (pain for about a day has been feeling her chest beating for about three days ) Subjective HPI Patient presents with complaints of palpitation and mild chest pain. Patient states her symptoms have been ongoing for a few days but worse today. Patient states she does have a history of being on abeta-myah for heart rate control in the past. She was taken off of it during the , and had not had any problems since. REVIEW OF SYSTEMS Review of Systems Respiratory: Positive for chest tightness. Cardiovascular: Positive for chest pain and palpitations. Gastrointestinal: Positive for nausea. Negative for vomiting. Skin: Negative for pallor. Neurological: Positive for dizziness and light-headedness. Psychiatric/Behavioral: The patient is nervous/anxious. Objective PHYSICAL EXAM BP 136/88 (BP Location: Left arm, Patient Position (BP): Sitting, BP Cuff Size: Adult) Pulse 97 Temp 98.6 ??F (37 ??C) (Temporal) Resp 19 Ht 5' 6 (1.676 m) Wt 76.2 kg (168 lb) SpO2 98% BMI 27.12 kg/m?? Physical Exam Vitals and nursing note reviewed. Constitutional: General: She is not in acute distress. Appearance: She is well-developed. She is not ill-appearing. HENT: Head: Normocephalic and atraumatic. Eyes: Extraocular Movements: Extraocular movements intact. Pupils: Pupils are equal, round, and reactive to light. Cardiovascular: Heart sounds: Normal heart sounds. Pulmonary: Effort: Pulmonary effort is normal. Breath sounds: Normal breath sounds. Abdominal: Palpations: Abdomen is soft. Skin: General: Skin is warm and dry. Capillary Refill: Capillary refill takes less than 2 seconds. Neurological: General: No focal deficit present. Mental Status: She is alert. Psychiatric: Mood and Affect: Mood normal. Behavior: Behavior normal. EKG Date/Time: 07/12/2020 11:26 AM Performed by: Hamida Lal DO Authorized by: Hamida Lal DO Comparison: not compared with previous ECG Rhythm: sinus rhythm Rate: normal QRS axis: normal Conduction: conduction normal ST Segments: ST segments normal Clinical impression: normal ECG Assessment ASSESSMENT and PLAN: ICD-10-CM ICD-9-CM 1. Palpitations R00.2 785.1 EKG AMB REFERRAL TO FAMILY PRACTICE 2. Anxiety state F41.1 300.00 Reviewed EKG with patient which looks normal. Discussed the fact the patient may need to be placed back on her medication and she should talk to her primary care provider about that. Patient wants a new referral to a new primary care doctor. Patient states she admits to some anxiety. Patient statesshe also probably drinks more caffeine than she should. Discussed the importance of decreasing caffeine or anything else that can cause stimulation to her heart. Follow-up here as needed. documented in this encounter Miscellaneous Notes * Patient Instructions - Hamida Lal DO - 07/12/2020 11:05 AM CDT Images from the original note were not included. Palpitations: Care Instructions Your Care Instructions Heart palpitations are the uncomfortable sensation that your heart is beating fast or irregularly. You might feel pounding or fluttering in your chest. It might feel like your heart is skipping a beat. Although palpitations may be caused by a heart problem, they also occur because of stress, fatigue,or use of alcohol, caffeine, or nicotine. Many medicines, including diet pills, antihistamines, decongestants, and some herbal products, can cause heart palpitations. Nearly everyone has palpitationsfrom time to time. Depending on your symptoms, your doctor may need to do more tests to try to find the cause of your palpitations. Follow-up care is a carmen part of your treatment and safety. Be sure to make and go to all appointments, and call your doctor if you are having problems. It's also a good idea to know your test resultsand keep a list of the medicines you take. How can you care for yourself at home? ?? Avoid caffeine, nicotine, and excess alcohol. ?? Do not take illegal drugs, such as methamphetamines and cocaine. ?? Do not take weight loss or diet medicines unless you talk with your doctor first. ?? Get plenty of sleep. ?? Do not overeat. ?? If you have palpitations again, take deep breaths and try to relax. This may slow a racing heart. ?? If you start to feel lightheaded, lie down to avoid injuries that might result if you pass out and fall down. ?? Keep a record of your palpitations and bring it to your next doctor's appointment. Write down: ? The date and time. ? Your pulse. (If your heart is beating fast, it may be hard to count your pulse.) ? What you were doing when the palpitations started. ? How long the palpitations lasted. ? Any other symptoms. ?? If an activity causes palpitations, slow down or stop. Talk to your doctor before you do that activity again. ?? Take your medicines exactly as prescribed. Call your doctor if you think you are having a problem with your medicine. When should you call for help? Call 911 anytime you think you may need emergency care. For example, call if: ? You passed out (lost consciousness). ? You have symptoms of a heart attack. These may include: ? Chest pain or pressure, or a strange feeling in the chest. ? Sweating. ? Shortness of breath. ? Pain, pressure, or a strange feeling in the back, neck, jaw, or upper belly or in one or both shoulders or arms. ? Lightheadedness or sudden weakness. ? A fast or irregular heartbeat. After you call 911, the paper machine operator may tell you to chew 1 adult-strength or 2 to 4 low-dose aspirin. Wait for an ambulance. Do not try to drive yourself. ? You have symptoms of a stroke. These may include: ? Sudden numbness, tingling, weakness, or loss of movement in your face, arm, or leg, especially ononly one side of your body. ? Sudden vision changes. ? Sudden trouble speaking. ? Sudden confusion or trouble understanding simple statements. ? Sudden problems with walking or balance. ? A sudden, severe headache that is different from past headaches. Call your doctor now or seek immediate medical care if: ? You have heart palpitations and: ? Are dizzy or lightheaded, or you feel like you may faint. ? Have new or increased shortness of breath. Watch closely for changes in your health, and be sure to contact your doctor if: ? You continue to have heart palpitations. Where can you learn more? Go to https://www.[employer].net/patiented Enter R508 in the search box to learn more about Palpitations: Care Instructions. Current as of: November 09, 2019?Content Version: 12.8 ?? [employer]. Care instructions adapted under license by your healthcare professional. If you have questions about a medical condition or this instruction, always ask your healthcare professional. These instructions may not represent the values of this healthcare organization. [employer] disclaims any warranty or liability for your use of this information. Learning About Anxiety Disorders What are anxiety disorders? Anxiety disorders are a type of medical problem. They cause severe anxiety. When you feel anxious, you feel that something bad is about to happen. This feeling interferes with your life. These disorders include: ?? Generalized anxiety disorder. You feel worried and stressed about many everyday events and activities. This goes on for several months and disrupts your life on most days. ?? Panic disorder. You have repeated panic attacks. A panic attack is a sudden, intense fear or anxiety. It may make you feel short of breath. Your heart may pound. ?? Social anxiety disorder. You feel very anxious about what you will say or do in front of people.For example, you may be scared to talk or eat in public. This problem affects your daily life. ?? Phobias. You are very scared of a specific object, situation, or activity. For example, you may fear spiders, high places, or small spaces. What are the symptoms? Generalized anxiety disorder Symptoms may include: ?? Feeling worried and stressed about many things almost every day. ?? Feeling tired or irritable. You may have a hard time concentrating. ?? Having headaches or muscle aches. ?? Having a hard time getting to sleep or staying asleep. Panic disorder You may have repeated panic attacks when there is no reason for feeling afraid. You may change yourdaily activities because you worry that you will have another attack. Symptoms may include: ?? Intense fear, terror, or anxiety. ?? Trouble breathing or very fast breathing. ?? Chest pain or tightness. ?? A heartbeat that races or is not regular. Social anxiety disorder Symptoms may include: ?? Fear about a social situation, such as eating in front of others or speaking in public. You may worry a lot. Or you may be afraid that something bad will happen. ?? Anxiety that can cause you to blush, sweat, and feel shaky. ?? A heartbeat that is faster than normal. ?? A hard time focusing. Phobias Symptoms may include: ?? More fear than most people of being around an object, being in a situation, or doing an activity. You might also be stressed about the chance of being around the thing you fear. ?? Worry about losing control, panicking, fainting, or having physical symptoms like a faster heartbeat when you are around the situation or object. How are these disorders treated? Anxiety disorders can be treated with medicines or counseling. A combination of both may be used. Medicines may include: ?? Antidepressants. These may help your symptoms by keeping chemicals in your brain in balance. ?? Benzodiazepines. These may give you short-term relief of your symptoms. Some people use cognitive-behavioral therapy. A therapist helps you learn to change stressful or bad thoughts into helpful thoughts. Lead a healthy lifestyle A healthy lifestyle may help you feel better. ?? Get at least 30 minutes of exercise on most days of the week. Walking is a good choice. ?? Eat a healthy diet. Include fruits, vegetables, lean proteins, and whole grains in your diet each day. ?? Try to go to bed at the same time every night. Try for 8 hours of sleep a night. ?? Find ways to manage stress. Try relaxation exercises. ?? Avoid alcohol and illegal drugs. Follow-up care is a carmen part of your treatment and safety. Be sure to make and go to all appointments, and call your doctor if you are having problems. It's also a good idea to know your test resultsand keep a list of the medicines you take. Where can you learn more? Go to https://www.M[employer].net/patiented Enter K667 in the search box to learn more about Learning About Anxiety Disorders. Current as of: December 02, 2019?Content Version: 12.8 ?? [id number] [employer]. Care instructions adapted under license by your healthcare professional. If you have questions about a medical condition or this instruction, always ask your healthcare professional. These instructions may not represent the values of this healthcare organization. [employer] disclaims any warranty or liability for your use of this information. documented in this encounter Plan of Treatment Scheduled Referrals Name Type Priority Associated Diagnoses Orde r Schedule AMB REFERRAL TO FAMILY PRACTICE Outpatient Referral Routine Palpitations Ordered: 07/12/2020 documented as of this encounter Procedures Procedure Name Priority Date/Time Associated Diagnosis Comments MI ECG ROUTINE ECG W/LEAST 12 LDS W/I&R Routine 07/12/2020 11:26 AM CDT Palpitations documented in this encounter Results * MI ECG ROUTINE ECG W/LEAST 12 LDS W/I&R (07/12/2020 11:26 AM CDT) Narrative [facility] [place] - 07/12/2020 11:26 AM CDT Hamida Lal, DO ? 07/12/2020 11:41 AM EKG Date/Time: 07/12/2020 11:26 AM Performed by: Hamida Lal DO Authorized by: Hamida Lal DO Comparison: not compared with previous ECG Rhythm: sinus rhythm Rate: normal QRS axis: normal Conduction: conduction normal ST Segments: ST segments normal Clinical impression: normal ECG Hamida Lal DO ECG ORDERABLES Performing Organization Address City/State/[facility] Co de Phone Number [facility] [place]# [id number] [address] [place] [id number] documented in this encounter Visit Diagnoses Diagnosis Palpitations- Primary Anxiety state Anxiety state, unspecified documented in this encounter Care Teams Business Executive Relationship Specialty Start Date End Date Deedee Low PA PCP - General Physician Cytology Supervisor 01/02/16 documented as of this encounter
--- OUTSIDE RECORDS SUMMARY | 2024-02-24 17:23 | XMS_ITS | Encounter Summary ---
Author Organization [facility] Address [address] [place] [address] Care Team Providers Care Methods Analyst Name Role Phone Deedee Low Primary Care Provider [phone] Reason for Visit * Reason Onset Date Comments Other 01/16/2016 Encounter Details Date Type Department Care Team (Late st Contact Info) Description 01/16/2016 Telephone [facility] [address] [place] [address] Deedee Low PA [address] [address] Other Social History Tobacco Use Types Packs/Day Years [...] encounter Miscellaneous Notes * Telephone Encounter - Johana Diaz LPC - 01/16/2016 9:08 AM CST Pt called stating she has a flat tire and is still in [place]. Pt states it will be several hours until tire will be fixed. Pt states she will be here tomorrow. TS DOCTOR documented in this encounter Plan of Treatment Not on file documented as of this encounter Visit Diagnoses Not on filedocumented in this encounter Care Teams Methods Analyst Relationship Specialty Start Date End Date Deedee Low PA PCP - General Physician Guard Immigration 01/02/16 documented as of this encounter
--- OUTSIDE RECORDS SUMMARY | 2024-02-24 17:23 | XMS_ITS | Encounter Summary ---
Author Organization [facility] [email or web address] Address [address] [place] [address] Care Team Providers Care Conservation Of Resources Commissioner Name Role Phone Deedee Low Primary Care Provider Reason for Visit * Reason Onset Date Comments Other 01/09/2016 Encounter Details Date Type Department Care Team (Late st Contact Info) Description 01/09/2016 Telephone [facility] [place] [address] [facility] [place] [address] Deedee Low PA [address] [address] Other Social History Tobacco Use Types Packs/Day Years Used Date Smoking Tobacco: Never Alcohol Use Standard Drinks/Week Comments No 0 (1 standard drink = 0.6 oz pur e alcohol) Sex and Gender Information Value Date Recorded Sex Assigned at Not on file Gender Identity Not on file Sexual Orientation Not on file documented as of this encounter Miscellaneous Notes * Telephone Encounter - Sandra Moore - 01/09/2016 8:09 AM CDT Patient unable to start today due to work obligations. Her admission moved to Saturday. Talked topatient and confirmed documented in this encounter Plan of Treatment Not on file documented as of this encounter Visit Diagnoses Not on filedocumented in this encounter Care Teams Conservation Of Resources Commissioner Relationship Specialty Start Date End Date Deedee Low PA PCP - General Physician Airport Ramp Agent 01/02/16 documented as of this encounter
--- OUTSIDE RECORDS SUMMARY | 2024-02-24 17:23 | XMS_ITS | Encounter Summary ---
Author Organization [facility] Address [address] [place] [address] Care Team Providers Care Machinist Instructor Name Role Phone Deedee Low Primary Care Provider [phone] Reason for Visit * Behavioral Health - Outpatient (Routine) - Closed Specialty Diagnoses / Procedures Referred By Angelita silva Referred To Contact Behavioral Health Diagnoses MDD recurrent Mod Procedures Adult IOP [facility] Health Adult [place] [address] [place] [address] Becca Almeida MD [address] [facility] [address] [place] [address] Referral ID Status Reason Start Date Expiration Date Visits Re quested Visits Authorized [id number] Closed 01/11/2016 02/10/2017 1 4 Encounter Details Date Type Department Care Team (Latest Contact Info) Description 01/13/2016 7:00 AM CDT - 01/13/2016 11:59 PM CDT Hospital Encounter [facility] Program [address] [facility] [place] [id number] Becca Almeida MD [address] [facility] [address] [place] [address] Discharge Disposition: Home or Self Care Social [...] by mouth daily. fluticasone (FLONASE) 50 mcg/spray [place], SuspensionIndications:a llergic rhinitis,pt takes in the evening 5pm Administer 2 Sprays in each nostril daily. rizatriptan (MAXALT TEAROOM HOST) 10 mg Tablet, Rapid DissolveIndications:hea dache disorder Place 10 mg inside cheek every 2 hours as needed for Migraine may repeat in 2 hours; max dose 30mg in 24 hours . documented as of this encounter Progress Notes * Johana Diaz LPC - 01/13/2016 2:13 PM CDT [facility] Group start time: 1230 Group end time: 1334 Type of Group: process group Alannah's primary Treatment Plan goal(s): coping skills for depression Alannah's response to group therapy: Cognitive Function: oriented x3 Affect: normal Mood: within normal limits Functional Status: intact Interpersonal: Guarded Participation Level: minimally participated Safety issues of concern for Alannah Are there any safety concerns at this time for Alannah? none Medication Compliance as reported by Alannah: Are there any concerns with medication compliance at this time? none Clinical impressions for this session of group therapy, including progress toward Alannah's statedgoal: Pt did not share on a personal level at this time. Pt gave feedback to group members. Pt appeared alert, attentive and maintained good eye contact with group members that did share on a personal level. Pt seemed to benefit from group therapy by listening to group members share effective coping skills for depression, grief and anxiety. Therapist provided structure, supportive feedback, encouragement, and asked question of group members during group therapy. * Bharath Goddard LCSW - 01/13/2016 12:42 PM CDT [facility] Note Group start time: 1050 Group end time: 1150 Type of Group: process group Alannah's primary Treatment Plan goal(s): coping skills for anxiety Alannah's response to group therapy: Cognitive Function: oriented x3 Affect: normal Mood: within normal limits Functional Status: intact Interpersonal: normal Participation Level: actively participated Safety issues of concern for Alannah Are there any safety concerns at this time for Alannah? no Medication Compliance as reported by Alannah: Are there any concerns with medication compliance at this time? no Clinical impressions for this session of group therapy, including progress toward Alannah's statedgoal: Patient stated that she has severe migraines. She feels better today, has tried all kinds of treatment. She was grieved when her dog . She is afraid of crowds. * Bharath Goddard LCSW - 01/13/2016 12:17 PM CDT [facility] Therapy Note Group start time: 930 Group end time: 1030 Type of Group: process group Alannah's primary Treatment Plan goal(s):coping skills for anxiety Alannah's response to group therapy: Cognitive Function: oriented x3 Affect: normal Mood: within normal limits Functional Status: intact Interpersonal: normal Participation Level: minimally participated Safety issues of concern for Alannah Are there any safety concerns at this time for Alannah? no Medication Compliance as reported by Alannah: Are there any concerns with medication compliance at this time? no Clinical impressions for this session of group therapy, including progress toward Alannah's statedgoal: Patient did not share on a personal level in this group but was attentive during discussion * Jen Aguilera LPC - 01/13/2016 12:05 PM CDT patient provided with behavioral health benefit information on 01/13/2016. Informed that verification of benefits is not a guarantee of payment by insurance company and uncovered portions will be responsibility of guarantor. For additional questions, the insurance carrier should be contacted directly. patient indicates understanding, benefits signed, see legal mediator for scanned copy with original signature. * Becca Almeida MD - 01/13/2016 10:18 AM CDT I went to bed with migraine and woke up with It,everything is still fuzzy today. Otherwise Feeling ok, alex/sleep-ok. I tried so many things for migraine, stretches,oils,maasage,floating,chiropracter-it helps but it comes right back Mood/anxiety-improving,denied psychosis,denied SI/HI. Feels IOP is hleping with coping skills. O:MSE: Alert O X 3, friendly, cooperative. No psychomotor retardation. Speech: normal in tone, volume, rate, and spontaneous. Mood : good Affect: appropriate Thought process: goal directed, logical, no flight of ideas or looseness of association. Thought content: No suicidal ideation, plan , or intent. No Homicidal ideation, plan, or intent. Nodelusions. No auditory or visual hallucinations. Insight: good. Judgement: good. A/P: continue current treatment,monitor. documented in this encounter Plan of Treatment Not on file documented as of this encounter Visit Diagnoses Not on filedocumented in this encounter Care Teams Machinist Instructor Relationship Specialty Start Date End Date Deedee Low PA PCP - General Physician Densitometrist 01/02/16 documented as of this encounter
--- OUTSIDE RECORDS SUMMARY | 2024-02-24 17:23 | XMS_ITS | Encounter Summary ---
Author Organization [facility] Address [address] [place]: Epic Prelude ADT [place] [id number] Care Team Providers Care Scales Inspector Name Role Phone Deedee Low Primary Care Provider [phone] Encounter Details Date Type Department Care Team (Latest Contact Info) Description 07/12/2020 Travel Social History Tobacco Use Types Packs/Day [...] on filedocumented in this encounter Care Teams Scales Inspector Relationship Specialty Start Date End Date Deedee Low PA PCP - General Physician Neon Sign Erector 01/02/16 documented as of this encounter
--- OUTSIDE RECORDS SUMMARY | 2024-02-24 17:23 | XMS_ITS | Encounter Summary ---
Author Organization [facility] Address [address] [place] [address] Care Team Providers Care Cushion Maker Hand Name Role Phone Jennifermary Deedee DELMER Primary Care Provider [phone] Reason for Visit * Auth/Cert Specialty Diagnoses / Procedures Referred By Angelita silva Referred To Contact Behavioral Health Diagnoses MDD, severe, w/out psychosis, [facility] Adult [facility] [address] [place] [address] Referral ID Status Reason Start Date Expiration Date Visits Re quested Visits Authorized [id number] Encounter Details Date Type Department Care Team (Latest Contact Info) Description 01/02/2016 4:56 PM CDT - 01/07/2016 1:00 PM CDT Hospital [facility] [address] [address] [address] [place] [address] Art Sierra MD [address] [place] [address] [facility] Intake, Nurse Nilsa Mckay MD [address] [place] [address] Severe recurrent major depression without psychotic features Discharge Disposition: Home or Self Care Social [...] Sign Reading Time Taken Comments Blood Pressure 133/77 01/07/2016 7:52 AM CDT Pulse 92 01/06/2016 8:11 PM CDT Temperature 36 ??C (96.8 ??F) 01/07/2016 7:52 AM CDT Respiratory Rate 12 01/07/2016 7:52 AM CDT Oxygen Saturation 97% 01/07/2016 7:52 AM CDT Inhaled Oxygen Concentration - - Weight 117.8 kg (259 lb 9.6 oz) 01/02/2016 4:57 PM CDT Height 164.3 cm (5' 4.69 ) 01/02/2016 4:57 PM CD T Body Mass Index 43.62 01/02/2016 4:57 PM CDT documented in this encounter Discharge Summaries * Art Sierra MD - 01/07/2016 8:03 AM CDT Discharge Summary: ADMIT: 01/02/2016 DISCHARGE: 01/07/2016 Assessment: For specifics prior to admission please refer to admission History & Physical, and Medical consultation. Reason For Hospitalization: depression/anxiety/SI Discharge DX:.Severe recurrent major depression without psychotic features Labs: Lab Results Component Value Date/Time WBC 10.4* 01/02/2016 08:50 PM HEMOGLOBIN 13.8 01/02/2016 08:50 PM HEMATOCRIT 40.7 01/02/2016 08:50 PM PLATELETS 361* 01/02/2016 08:50 PM MCV 85.7 01/02/2016 08:50 PM Lab Results Component Value Date/Time SODIUM 139 01/02/2016 08:50 PM POTASSIUM 4.1 01/02/2016 08:50 PM CHLORIDE 97* 01/02/2016 08:50 PM CO2 26 01/02/2016 08:50 PM CALCIUM 10.9* 01/02/2016 08:50 PM BUN 12 01/02/2016 08:50 PM CREATININE 0.72 01/02/2016 08:50 PM GLUCOSE 278* 01/02/2016 08:50 PM ANION GAP 16 01/02/2016 08:50 PM Hospital course: Patient was admitted. Patient was treated with individual psychotherapy, group therapy, and inpatient milieu. Patient showed a good response with stabilization of symptoms. Patient was felt to be able to transition to a lower level of care. Patient was provided with education regarding medication effects/ side effects- potential risks/benefits to increase knowledge and understanding to help insure compliance following discharge. Patient was able to contract to safety. Patient agreed to crisis plan. Agreed to return to hospital if signs of decompensation occurs.Patient has available family support. Client is willing to participate in after care plan. Patient was given action/safety plan of resources that are available if an emergency arises after discharge. [place]-Suicide Severity Rating Scale SUICIDE IDEATION DEFINITIONS AND PROMPTS: Currently Ask questions that are bolded and underlined. YES NO Ask Questions 1 and 2 1) Wish to be : Person endorses thoughts about a wish to be or not alive anymore, or wish to fall asleep and not wake up. Have you wished you were or wished you could go to sleep and not wake up? X 2) Suicidal Thoughts: General non-specific thoughts of wanting to end one???s life/commit suicide, ???I???ve thought about killing myself?? without general thoughts of ways to kill oneself/associated methods, intent, or plan.?? Have you actually had any thoughts of killing yourself? X If YES to 2, ask questions 3, 4, 5, and 6. If NO to 2, go directly to question 6. 3) Suicidal Thoughts with Method (without Specific Plan or Intent to Act): Person endorses thoughts of suicide and has thought of a least one method during the assessment period. This is different than a specific plan with time, place or method details worked out. ???I thought about taking an overdose but I never made a specific plan as to when where or how I would actually do it???.and I would never go through with it.?? Have you been thinking about how you might kill yourself? 4) Suicidal Intent (without Specific Plan): Active suicidal thoughts of killing oneself and patient reports having some intent to act on such thoughts, as opposed to ???I have the thoughts but I definitely will not do anything about them.?? Have you had these thoughts and had some intention of acting on them? 5) Suicide Intent with Specific Plan: Thoughts of killing oneself with details of plan fully or partially worked out and person has some intent to carry it out. Have you started to work out or worked out the details of how to kill yourself? Do you intend to carry out this plan? 6) Suicide Behavior Question Have you ever done anything, started to do anything, or prepared to do anything to end your life??? Examples: Collected pills, obtained a gun, gave away valuables, wrote a will or suicide note, took out pills but didn???t swallow any, held a gun but changed your mind or it was grabbed from your hand, went to the roof but didn???t jump; or actually took pills, tried to shoot yourself, cut yourself, tried to hang yourself, etc. If YES, ask: How long ago did you do any of these? ? Over a year ago? ? Between three months and a year ago? ? Within the last three months? X Client feels the suicidal crisis has resolved. Safety planning interventions were performed. Patient was able to note stressors that led to suicidal feelings. Patient was able to define and prioritize, the psychosocial interventions that the client could access to help decrease that risk should a crisis occur. Patient was sleeping better and anxiety/depression has been improved. MSE: Alert O X 3, friendly, cooperative. No psychomotor retardation. No agitation. Speech: normal in tone, volume, rate, and spontaneous. Mood : good Affect: appropriate Thought process: goal directed, logical, no flight of ideas or looseness of association. Thought content: No suicidal ideation, plan , or intent. No Homicidal ideation, plan, or intent. Nodelusions. No auditory or visual hallucinations. Insight: improved. Judgement: improved. Medication List START taking these medications prochlorperazine maleate 10 mg tablet Commonly known as: COMPAZINE Take 1 Tablet (10 mg) by mouth every 6 hours as needed for Nausea, Emesis or Other (See Comment) (migraine). Signed by: Art Sierra Quantity: 30 Tablet Refills: 0 traZODone 50 mg tablet Commonly known as: DESYREL Take 1 Tablet (50 mg) by mouth nightly as needed for Insomnia. Signed by: Art Sierra Quantity: 15 Tablet Refills: 0 CHANGE how you take these medications sertraline 100 mg tablet Commonly known as: ZOLOFT What changed: how much to take Take 2 Tablet (200 mg) by mouth daily. Signed by: Art Sierra Quantity: 30 Tablet Refills: 0 Indications of Use: DEPRESSION CONTINUE taking these medications albuterol sulfate 90 mcg/Actuation inhaler Take 2 Puffs by inhalation every 6 hours as needed for Shortness of Breath. Refills: 0 Indications of Use: ALLERGIC REACTION clonazePAM 0.5 mg Tablet Commonly known as: KlonoPIN Take 0.5 mg by mouth 3 times daily as needed for Anxiety. Refills: 0 Indications of Use: ANXIETY famotidine 20 mg tablet Commonly known as: PEPCID Take 20 mg by mouth daily. Refills: 0 Indication: For reflux fenofibrate 160 mg Tablet Commonly known as: LOFIBRA Take 160 mg by mouth daily. Refills: 0 Indications of Use: CONSTIPATION fexofenadine 180 mg tablet Commonly known as: OCHOA Take 180 mg by mouth daily with supper. Refills: 0 Indications of Use: ALLERGIC RHINITIS DUE TO GRASS POLLEN fluticasone 50 mcg/spray [place], Suspension Commonly known as: FLONASE Administer 2 Sprays in each nostril daily. Refills: 0 Indications of Use: ALLERGIC RHINITIS, pt takes in the evening 5pm lisinopril 10 mg tablet Commonly known as: PRINIVIL Take 10 mg by mouth daily at bedtime. Refills: 0 Indications of Use: HYPERTENSION ondansetron 8 mg Tablet, Rapid Dissolve Commonly known as: ZOFRAN ODT Take 8 mg by mouth every 6 hours as needed for Nausea, Emesis or Nausea/Emesis Dissolve tablet on top of tongue, then swallow with saliva. . Refills: 0 rizatriptan 10 mg Tablet, Rapid Dissolve Commonly known as: MAXALT SHUTTLELESS LOOM WEAVER Place 10 mg inside cheek every 2 hours as needed for Migraine may repeat in 2 hours; max dose 30mg in 24 hours . Refills: 0 Indications of Use: HEADACHE DISORDER TOUJEO SOLOSTAR 300 unit/mL pen syringe Inject 14 Units by subcutaneous injection daily at bedtime. Refills: 0 Generic drug: insulin glargine Indication: For Diabetes XIGDUO XR 5-1,000 mg tablet, IR & ER, biphasic 24hr Take 1 Tablet by mouth 2 times daily. Refills: 0 Indications of Use: DIABETES MELLITUS, home med verification takes at 5pm and 9pm Generic drug: dapagliflozin-metFORMIN STOP taking these medications diphenhydrAMINE 25 mg tablet Commonly known as: BENADRYL Where to Get Your Medications Information on where to get these meds is not yet available. Ask your nurse or doctor. - prochlorperazine maleate 10 mg tablet - sertraline 100 mg tablet - traZODone 50 mg tablet Outcome: stable Prognosis: fair Patient Discharged to: home Discharging Physician: Art Abdalla MD Time Spent: 31 Minutes. Next Level of Care Recommendations: You are enrolled in [facility] intensive outpatient treatment program. Please arrive at 8:30AM Saturday, January 09, 2016 to begin your intake: Contact: [address] [place] [address] Please follow up with your therapist, Maryjane Diamond at [facility] left a message and waiting call back to obtain appointment time and date. The office requests to speak to you directly to make your follow up appointment. Location: [facility] [address] [place] [address] Please follow up with therapist, Alycia Luna at [facility] Your new patient appointment is Sunday, February 07, 2016 at 11:30am [address] [place] [address] Please follow up with your PCP, Deedee Low for medication management within 1-2 weeks upon discharge. [address] [place], [address] documented in this encounter Discharge Instructions * Discharge Instructions* Alley Villanueva MATERIAL YARD CLERK - 01/06/2016 1:56 PM CDT You are enrolled in [facility] intensive outpatient treatment program. Please arrive at 8:30AM Saturday, January 09, 2016 to begin your intake: Contact: [address] [place] [address] Please follow up with your therapist, Maryjane Diamond at [facility] left a message and waiting call back to obtain appointment time and date. The office requests to speak to you directly to make your follow up appointment. Location: [address] [place] [address] Please follow up with therapist, Alycia Luna at [facility] Your new patient appointment is Sunday, February 07, 2016 at 11:30am [address] [place] [address] Please follow up with your PCP, Deedee Low for medication management within 1-2 weeks upon discharge. [address] [place], [address] Suicide Prevention/Crisis Hotlines [facility] - Behavioral Health Intake Department [phone] [facility] Behavioral Health Intake Department is professionally staffed and offers free, confidential evaluations for anyone needing assistance with a psychiatric, behavioral or addictive disorder. Evaluations, as well as referrals to physicians or community resources, are available 24 hours aday, 7 days a week. [facility] [phone] ([phone]) [facility] is one of the nation???s [facility] suicide prevention and crisis hotlines. [facility] operates 24 hours a day, 7 days a week, 365 days a year. [facility] ([facility]) [phone] (toll free) [facility] ([facility]) is a professionally staffed crisis response service. [facility] provides expert behavioral health, crisis response, and outreach services, 24 hours a day, seven days a week to agencies and companies worldwide. National Suicide Prevention Hotline 1-211-606-TALK (3588) A free, 24-hour hotline available to anyone in suicidal crisis or emotional distress. Your call will be routed to the nearest crisis center to you. National [facility] 0-941-OTWCMEH KUTO (Kids Under Twenty-One) Crisis Helpline 6-801-850-KUTO (7461) Youth staffed every day after 4pm TELEVISION AUDIO ENGINEER The [facility]O Crisis Helpline is a confidential telephone hotline available to any youth who may be in need of assistance, referral information or crisis services. The [facility]O Helpline is one of a handful ofhoines staffed exclusively by youth volunteers. National [place] [facility] Mental [facility] ([facility]) [phone] documented in this encounter Medications at Time of Discharge Medication Sig Dispensed Refills Start Date End Date sertraline (ZOLOFT) 100 mg tabletIndications:depre ssion Take [...] by mouth daily. fluticasone (FLONASE) 50 mcg/spray [place], SuspensionIndications:a llergic rhinitis,pt takes in the evening 5pm Administer 2 Sprays in each nostril daily. rizatriptan (MAXALT SHUTTLELESS LOOM WEAVER) 10 mg Tablet, Rapid DissolveIndications:hea dache disorder Place 10 mg inside cheek every 2 hours as needed for Migraine may repeat in 2 hours; max dose 30mg in 24 hours . documented as of this encounter Progress Notes * Yancy Poole RN - 01/07/2016 1:52 PM CDT During this shift, Alannah was given the prn medication zofran for nausea, as demonstrated by the following behavior: patient reports nausea (See MAR for administration time.) Approximately 1 hour after medication administration, Alannah appeared or reported the following: patient Verbalized relief During this shift, Alannah was given the prn medication Artifical tears for eye discomfort, as demonstrated by the following behavior: patient reports blurry vision and discomfort (See MAR for administration time.) Approximately 1 hour after medication administration, Alannah appeared or reportedthe following: patient reports relief when used with maxalt During this shift, Alannah was given the prn medication maxalt for migraine, as demonstrated by the following behavior: patient reports mild headache and migraine symptoms of nausea (See MAR for administration time.) Approximately 1 hour after medication administration, Alannah appeared or reported the following: patient reports relief During this shift, Alannah was given the prn medication clonazepam for anxiety, as demonstrated bythe following behavior: patient report of anxiety (See MAR for administration time.) Approximately 1 hour after medication administration, Alannah appeared or reported the following: patient verbalized relief * Lashell Rosario - 01/07/2016 9:12 AM CDT Referral from Yancy SHEPPARD for anxious pt, Alannah. I was not able to leave the hospital to attend to Alannah, but RN arranged for me to talk to Alannah by phone. Alannah was anxious about being unworthy before God. Her yazidi thoughts were causing her to doubt whether she was worthy of participating ing in oriental orthodox and if her depression was a result of her sinfulness. She was tearful because she felt that this was one issue about herself she did not have someone to talk to. We spoke for about 20 minutes about her need for acceptance of who she is and her worthiness. We strategized about positive thoughts that could remind her of her worthiness before God and other people. She was grateful and responded with hopefulness. She is being discharged so no follow up at this time. * Vidhi Mcdonald RN - 01/06/2016 10:06 PM CDT 2100 Alannah has been up and about on the unit. Social. maxalt 10 mg given po for c/o migraine BATES. 2200 Alannah expressed relief from BATES. 2204 Zofran ODT 4 mg given for c/o nausea. 2300 I feel better no more nausea. Remains sitting in the lounge talking with another peer. 0022 klonopin 0.5 mg given po. I'm not tired my mind is racing. Remains sitting in the lounge. 0130 Alannah remains in the lounge talking with a peer. Experienced some relief of anxiety from klonopin. 0325 Alannah finally went to her room and fell asleep.Will continue to monitor. 0600 Alannah slept for 2.5 hours. No falls reported or observed this shift. Staff will continue to monitor Alannah for safety and provide support as needed. * Art Sierra MD - 01/06/2016 11:35 AM CDT Chief Complaint: I am feeling better Detailed Interval History: Patient is doing better and denies SI Location : depression/anxiety/SI (Primary Problem) Problem is improving Context: loss of dog and CMI. Severity:6/10 with 10 being Best. Duration:month. Modifying Factors: sleeping . Associated Symptoms: MOOD:appropriate to circumstances. ANHEDONIA: no. APPETITE: normal. SLEEP: normal. Sleep/Rest/Relaxation: no problem identified (01/06/16 0600) CONCENTRATION: increased. FATIGUE: decreased. RESTLESSNESS: none. SUICIDAL IDEATION: no. SUICIDAL PLAN: no. SUICIDAL INTENT: no. HOMICIDAL IDEATION: no. HALLUCINATIONS: no. DELUSIONS: no. Past,Family, & Social History: [x] :check if no change from?? initial eval done 01/04/[address] Mario. BP 120/62 mmHg Pulse 88 Temp(Src) 97.6 ??F (36.4 ??C) (Temporal) Resp 18 Ht 5' 4.69 (1.643m) Wt 117.754 kg (259 lb 9.6 oz) BMI 43.62 kg/m2 SpO2 99% Current Facility-Administered Medications Ordered in Epic Medication Dose Route Frequency Provider Last Rate Last Dose ??? prochlorperazine maleate (COMPAZINE) tablet 10 mg 10 mg Oral q 6 hour PRN Jeimy Mario MD 10 mg at 01/06/16 0838 ??? rizatriptan (MAXALT) tablet 10 mg 10 mg Oral q 2 hour PRN Jeimy Mario MD 10 mg at [id number] ??? traZODone (DESYREL) tablet 50 mg 50 mg Oral HS PRN Art Sierra MD 50 mg at ??? dextromethorphan-guaiFENesin (ROBITUSSIN DM) 10-100 mg/5 mL oral solution 5 mL 5 mL Oral q 4 hour PRN Jeimy Mario MD 5 mL at 01/04/16 1654 ??? sertraline (ZOLOFT) tablet 150 mg 150 mg Oral Daily Art Sierra MD 150 mg at 01/05/16 1630 ??? insulin glargine (LANTUS) 100 unit/mL injection 8 Units 8 Units subCUT Daily BEDTIME Jeimy Mario MD 8 Units at 01/05/162041 ? ? dapagliflozin-metFORMIN 5-1,000 mg tablet, IR & ER, biphasic 24hr 1 Tablet 1 Tablet Oral BID Fina Lam NP 1 Tablet at 01/06/16 0940 ??? lisinopril (PRINIVIL) tablet 10 mg 10 mg Oral Daily BEDTIME Fina Lam NP 10 mg at 01/05/162039 ??? famotidine (PEPCID) tablet 20 mg 20 mg Oral Daily Fina Lam NP 20 mg at 01/06/16 0830 ??? fenofibrate (LOFIBRA) tablet 160 mg 160 mg Oral Daily Fina Lam NP 160 mg at 01/06/16 0830 ??? fluticasone (FLONASE) 50 mcg/spray nasal inhaler 2 [place] 2 [place] Both Nostrils Daily Fina Lam NP 2 [place] at 01/05/16 1621 ??? dextrose 5% infusion IV See Admin Notes Fina Lam NP ??? dextrose 50% (D50) syringe 12.5 Gram 12.5 Gram IV See Admin Notes Fina Lam NP ??? dextrose 50% (D50) syringe 25 Gram 25 Gram IV See Admin Notes Fina Lam NP ??? glucagon (Human Recombinant) (GLUCAGEN) 1 mg/mL injection 1 mg 1 mg IM See Admin Notes Fina Lam NP ??? insulin lispro (HumaLOG) 100 units/mL variable dose injection subCUT TID Meals Fina Lam NP 2 Units at 01/06/16 0744 ??? artificial tears(hypromellose) 0.5 % ophthalmic solution 1 Drop 1 Drop Both Eyes q 30 min PRN Fina Lam NP ??? ondansetron (ZOFRAN ODT) tablet 4 mg 4 mg Oral q 8 hour PRN Fina Lam NP 4 mg at 01/06/16 0732 ??? clonazePAM (KlonoPIN) tablet 0.5 mg 0.5 mg Oral TID PRN Nilsa Mckay MD 0.5 mg at 01/06/16 0940 ??? acetaminophen (TYLENOL) tablet 650 mg 650 mg Oral q 4 hour PRN Nilsa Mckay MD 650 mg at 01/05/16 0938 ??? aluminum - magnesium - simethicone (MYLANTA) 200-200-20 mg/5 mL oral suspension 30 mL 30 mL Oral q 6 hour PRN Nilsa Mckay MD ??? magnesium hydroxide (MILK OF MAGNESIA) oral suspension 30 mL 30 mL Oral Daily PRN Nilsa Mckay MD ??? cetirizine (ZyrTEC) tablet 10 mg 10 mg Oral Daily SUPPER Fina Lam NP 10 mg at 01/05/16 1621 ??? albuterol (PROVENTIL,VENTOLIN) 2.5 mg /3 mL (0.083 %) inhalation solution 2.5 mg 2.5 mg Inhalation Resp q 6 h PRN Fina Lam NP OBJECTIVE: ROS: Constitutional: Negative for fever and chills. Skin: Negative for rash and wound. GI: Negative for nausea and vomiting. Musculoskeletal: Negative for myalgias and back pain. Neurological: Negative but refer to psychiatric symptoms. All other were Negative. Mental Status Evaluation: Appearance: casually dressed Behavior: cooperative with exam Speech: normal pitch and normal volume Mood: euthymic Affect: normal Thought Process: within normal limits Thought Content: appropriate responses to questions asked Sensorium: person, place and time/date Cognition: grossly intact Insight & Judgement: improved Muscle strength and Tone: Normal/normal Gait:normal. Data Base: I have reviewed all labs and pertinent ones are noted below. Recent Results (from the past 24 hour(s)) POC GLUCOSE Collection Time: 01/05/16 11:59 AM Result Value Ref Range POC GLUCOSE 173 (H) 79-99 mg/dL POC GLUCOSE Collection Time: 01/05/16 4:33 PM Result Value Ref Range POC GLUCOSE 171 (H) 79-99 mg/dL COMMENT, GLU POC Notified RN/MD POC GLUCOSE Collection Time: 01/05/16 8:30 PM Result Value Ref Range POC GLUCOSE 153 (H) 79-99 mg/dL POC GLUCOSE Collection Time: 01/06/16 7:34 AM Result Value Ref Range POC GLUCOSE 181 (H) 79-99 mg/dL COMMENT, GLU POC Notified RN/MD ASSESSMENT: PRIMARY DIAGNOSIS:Severe recurrent major depression without psychotic features Patient Active Problem List Diagnosis Code ??? Severe recurrent major depression without psychotic features F33.2 ??? Routine general medical examination at a health care facility Z00.00 ??? Type 2 diabetes mellitus without complication, without long-term current use of insulin E11.9 ??? Seasonal allergic rhinitis due to pollen J30.1 ??? Benign hypertension I10 improving PLAN: Support given. Patient informed of importance of compliance with chosen options. Instruction for management/treatment and/or follow up. Provided education about condition and risk factor reduction. Coordination with: [x] Nursing [x] Nurse Obgyn [x] Social Work [] Physician [] Family Patient still needs continued inpatient treatment due to Needing risk assessment and provide clientwith safety interventions to help cope better with crisis that led to admission. Patient is tolerating the current medications and continues to consent to treatment plan. I discussed severity/complexity of Her illness which is high. Time spent: 35 Minutes. This may include time with patient , family , nursing staff, social service, consulting physician, treatment team, counseling&/or activities to coordinate the care of the patient . Greater than 50 % of patient time and floor time spent providing counseling and/or coordination of care. * Vidhi Mcdonald RN - 01/05/2016 8:14 PM CDT [id number] Alannah is sitting in her room reading a book. Voices no c/o. 2345 Alannah is asleep at this time. Will continue to monitor. * Art Sierra MD - 01/05/2016 7:12 AM CDT Chief Complaint: I don't feel good Detailed Interval History: Alannah states she feels the same. I asked her if she has suicidal thoughts and she smiled and said yes.she claims the trazodone helped her sleep. Location : depression/anxiety/SI (Primary Problem) Problem is the same Context: loss of dog and CMI. Severity:5/10 with 10 being Best. Duration:month. Modifying Factors: sleeping . Associated Symptoms: MOOD:anxious and depressed. ANHEDONIA: no. APPETITE: normal. SLEEP: normal. Sleep/Rest/Relaxation: no problem identified (01/05/16 0558) CONCENTRATION: normal. FATIGUE: varying. RESTLESSNESS: same SUICIDAL IDEATION: yes. SUICIDAL PLAN: no. SUICIDAL INTENT: no. HOMICIDAL IDEATION: no. HALLUCINATIONS: no. DELUSIONS: no. Past,Family, & Social History: [x] :check if no change from initial eval done 01/04/[address] Mario. BP 121/73 mmHg Pulse 75 Temp(Src) 97.6 ??F (36.4 ??C) (Temporal) Resp 18 Ht 5' 4.69 (1.643m) Wt 117.754 kg (259 lb 9.6 oz) BMI 43.62 kg/m2 SpO2 94% Current Facility-Administered Medications Ordered in Epic Medication Dose Route Frequency Provider Last Rate Last Dose ??? traZODone (DESYREL) tablet 50 mg 50 mg Oral HS PRN Art Sierra MD 50 mg at ??? dextromethorphan-guaiFENesin (ROBITUSSIN DM) 10-100 mg/5 mL oral solution 5 mL 5 mL Oral q 4 hour PRN Jeimy Mario MD 5 mL at 01/04/161653 ??? sertraline (ZOLOFT) tablet 150 mg 150 mg Oral Daily Art Sierra MD 150 mg at 01/04/161655 ??? insulin glargine (LANTUS) 100 unit/mL injection 8 Units 8 Units subCUT Daily BEDTIME Jeimy Mario MD 8 Units at 01/04/162123 ? ? dapagliflozin-metFORMIN 5-1,000 mg tablet, IR & ER, biphasic 24hr 1 Tablet 1 Tablet Oral BID Fina Lam NP 1 Tablet at 01/04/162127 ??? lisinopril (PRINIVIL) tablet 10 mg 10 mg Oral Daily BEDTIME Fina Lam NP 10 mg at 01/04/162126 ??? famotidine (PEPCID) tablet 20 mg 20 mg Oral Daily Fina Lam NP 20 mg at 01/04/16 0835 ??? fenofibrate (LOFIBRA) tablet 160 mg 160 mg Oral Daily Fina Lam NP 160 mg at 01/04/16 0835 ??? fluticasone (FLONASE) 50 mcg/spray nasal inhaler 2 [place] 2 [place] Both Nostrils Daily Fina Lam NP 2 [place] at 01/04/161655 ??? dextrose 5% infusion IV See Admin Notes Fina Lam NP ??? dextrose 50% (D50) syringe 12.5 Gram 12.5 Gram IV See Admin Notes Fina Lam SOPHIA ??? dextrose 50% (D50) syringe 25 Gram 25 Gram IV See Admin Notes Fina Lam NP ??? glucagon (Human Recombinant) (GLUCAGEN) 1 mg/mL injection 1 mg 1 mg IM See Admin Notes Fina Lam NP ??? insulin lispro (HumaLOG) 100 units/mL variable dose injection subCUT TID Meals Fina Lam NP 1 Units at 01/04/161654 ??? artificial tears(hypromellose) 0.5 % ophthalmic solution 1 Drop 1 Drop Both Eyes q 30 min PRN Fina Lam NP ??? ondansetron (ZOFRAN ODT) tablet 4 mg 4 mg Oral q 8 hour PRN Fina Lam NP 4 mg at 01/04/162144 ??? clonazePAM (KlonoPIN) tablet 0.5 mg 0.5 mg Oral TID PRN Nilsa Mckay MD 0.5 mg at 01/04/162128 ??? acetaminophen (TYLENOL) tablet 650 mg 650 mg Oral q 4 hour PRN Nlisa Mckay MD 650 mg at 01/04/162129 ??? aluminum - magnesium - simethicone (MYLANTA) 200-200-20 mg/5 mL oral suspension 30 mL 30 mL Oral q 6 hour PRN Nilsa Mckay MD ??? magnesium hydroxide (MILK OF MAGNESIA) oral suspension 30 mL 30 mL Oral Daily PRN Nilsa Mckay MD ??? cetirizine (ZyrTEC) tablet 10 mg 10 mg Oral Daily SUPPER Fina Lam NP 10 mg at 01/04/161657 ??? albuterol (PROVENTIL,VENTOLIN) 2.5 mg /3 mL (0.083 %) inhalation solution 2.5 mg 2.5 mg Inhalation Resp q 6 h PRN Fina Lam NP OBJECTIVE: ROS: Constitutional: Negative for fever and chills. Skin: Negative for rash and wound. GI: + for nausea and vomiting. Musculoskeletal: Negative for myalgias and back pain. Neurological:+ headaches but refer to psychiatric symptoms. All other were Negative. Mental Status Evaluation: Appearance: casually dressed Behavior: cooperative with exam Speech: normal pitch and normal volume Mood: anxious and depressed Affect: constricted Thought Process: within normal limits Thought Content: appropriate responses to questions asked and suicidal Sensorium: person, place and time/date Cognition: average for level of education Insight & Judgement: fair Muscle strength and Tone: Normal/normal Gait:normal. Data Base: I have reviewed all labs and pertinent ones are noted below. Recent Results (from the past 24 hour(s)) POC GLUCOSE Collection Time: 01/04/16 7:51 AM Result Value Ref Range POC GLUCOSE 192 (H) 79-99 mg/dL POC GLUCOSE Collection Time: 01/04/16 11:43 AM Result Value Ref Range POC GLUCOSE 161 (H) 79-99 mg/dL COMMENT, GLU POC Notified RN/MD POC GLUCOSE Collection Time: 01/04/16 4:38 PM Result Value Ref Range POC GLUCOSE 169 (H) 79-99 mg/dL POC GLUCOSE Collection Time: 01/04/16 8:36 PM Result Value Ref Range POC GLUCOSE 265 (H) 79-99 mg/dL ASSESSMENT: PRIMARY DIAGNOSIS:Severe recurrent major depression without psychotic features Patient Active Problem List Diagnosis Code ??? Severe recurrent major depression without psychotic features F33.2 Still depressed with + SI. She cannot contract to safety outside of hospital setting. PLAN: Support given. Patient informed of importance of compliance with chosen options. Instruction for management/treatment and/or follow up. Provided education about condition and risk factor reduction. Coordination with: [x] Nursing [x] Nurse Obgyn [x] Social Work [] Physician [] Family Patient still needs continued inpatient treatment due to Patient still has suicidal ideations and needs further inpatient observation and stabilization. Patient is tolerating the current medications and continues to consent to treatment plan. I discussed severity/complexity of Her illness which is high. Time spent: 35 Minutes. This may include time with patient , family , nursing staff, social service, consulting physician, treatment team, counseling&/or activities to coordinate the care of the patient . Greater than 50 % of patient time and floor time spent providing counseling and/or coordination of care. * Vidhi Rodriguez RD - 01/04/2016 4:49 PM CDT Didactic/Psychoeducation Group: Group topic: Nutrition Group Length of Group: 45 minutes During this group, Alannah discussed issues related to her primary treatment goal(s) for this hospitalization/goal of the group: healthy eating with gastroparesis and DM Staff intervention(s) provided that support Alannah in achieving her stated goal(s) were as follows: by discussion on healthy eating option to include CHO,protein and fat, and importance of eating meals and exercis The following observations were made during this group: It was noted that Alannah is making progress toward achieving their stated goal. By participating in group discussion. Alannah's level of participation in this group was good, affect was appropriate, behavior was normal, and response to teaching was Verbalizes understanding. * Jessi Mcallister LCSW - 01/04/2016 1:38 PM CDT This author contacted [facility] for outpatient Psychiatry - waiting call back. * Jessi Mcallister LCSW - 01/04/2016 9:07 AM CDT This author contacted [facility] for assistance in locating OP Psychiatrist - waiting call back. * Art Sierra MD - 01/04/2016 7:41 AM CDT Chief Complaint: not great Detailed Interval History: Alannah says she is depressed and still has + suicidal thoughts. I was talking to my roommate how I felt suicidal . Location : depression/anxiety/SI (Primary Problem) Problem is the same Context: loss of dog and CMI. Severity:5/10 with 10 being Best. Duration:month. Modifying Factors: sleeping . Associated Symptoms: MOOD:anxious and depressed. ANHEDONIA: no. APPETITE: normal. SLEEP: normal. Sleep/Rest/Relaxation: no problem identified (01/04/16 0557) CONCENTRATION: normal. FATIGUE: varying. RESTLESSNESS: moderate but looks not all nervous. SUICIDAL IDEATION: yes. SUICIDAL PLAN: no. SUICIDAL INTENT: no. HOMICIDAL IDEATION: no. HALLUCINATIONS: no. DELUSIONS: no. Past,Family, & Social History: [x] :check if no change from initial eval done 01/04/[address] Mario. Appreciate Hospitalist input BP 114/61 mmHg Pulse 75 Temp(Src) 97.6 ??F (36.4 ??C) (Temporal) Resp 18 Ht 5' 4.69 (1.643m) Wt 117.754 kg (259 lb 9.6 oz) BMI 43.62 kg/m2 SpO2 96% Current Facility-Administered Medications Ordered in Epic Medication Dose Route Frequency Provider Last Rate Last Dose ??? sertraline (ZOLOFT) tablet 150 mg 150 mg Oral Daily Art Sierra MD 150 mg at 01/03/161807 ??? insulin glargine (LANTUS) 100 unit/mL injection 8 Units 8 Units subCUT Daily BEDTIME Jeimy Mario MD 8 Units at 01/03/162028 ? ? dapagliflozin-metFORMIN 5-1,000 mg tablet, IR & ER, biphasic 24hr 1 Tablet 1 Tablet Oral BID Fina Lam NP 1 Tablet at 01/03/16 2100 ??? lisinopril (PRINIVIL) tablet 10 mg 10 mg Oral Daily BEDTIME Fina Lam NP 10 mg at 01/03/16 2030 ??? famotidine (PEPCID) tablet 20 mg 20 mg Oral Daily Fina Lam NP 20 mg at 01/03/16921 ??? fenofibrate (LOFIBRA) tablet 160 mg 160 mg Oral Daily Fina Lam NP 160 mg at 01/03/16921 ??? fluticasone (FLONASE) 50 mcg/spray nasal inhaler 2 [place] 2 [place] Both Nostrils Daily Fina Lam NP 2 [place] at 01/03/161807 ??? dextrose 5% infusion IV See Admin Notes Fina Lam NP ??? dextrose 50% (D50) syringe 12.5 Gram 12.5 Gram IV See Admin Notes Fina Lam NP ??? dextrose 50% (D50) syringe 25 Gram 25 Gram IV See Admin Notes Fina Lam NP ??? glucagon (Human Recombinant) (GLUCAGEN) 1 mg/mL injection 1 mg 1 mg IM See Admin Notes Fina Lam NP ??? insulin lispro (HumaLOG) 100 units/mL variable dose injection subCUT TID Meals Fina Lam NP 2 Units at 01/03/16 1645 ??? artificial tears(hypromellose) 0.5 % ophthalmic solution 1 Drop 1 Drop Both Eyes q 30 min PRN Fina Lam NP ??? ondansetron (ZOFRAN ODT) tablet 4 mg 4 mg Oral q 8 hour PRN Fina Lam NP ??? clonazePAM (KlonoPIN) tablet 0.5 mg 0.5 mg Oral TID PRN Nilsa Mckay MD 0.5 mg at 01/03/162027 ??? acetaminophen (TYLENOL) tablet 650 mg 650 mg Oral q 4 hour PRN Nilsa Mckay MD 650 mg at 01/03/162035 ??? aluminum - magnesium - simethicone (MYLANTA) 200-200-20 mg/5 mL oral suspension 30 mL 30 mL Oral q 6 hour PRN Nilsa Mckay MD ??? magnesium hydroxide (MILK OF MAGNESIA) oral suspension 30 mL 30 mL Oral Daily PRN Nilsa Mckay MD ??? cetirizine (ZyrTEC) tablet 10 mg 10 mg Oral Daily SUPPER Fina Lam NP 10 mg at 01/03/16 1808 ??? albuterol (PROVENTIL,VENTOLIN) 2.5 mg /3 mL (0.083 %) inhalation solution 2.5 mg 2.5 mg Inhalation Resp q 6 h PRN Fina Lam NP OBJECTIVE: ROS: Constitutional: Negative for fever and chills. Skin: Negative for rash and wound. GI: Negative for nausea and vomiting. Musculoskeletal: Negative for myalgias and back pain. Neurological: Negative but refer to psychiatric symptoms. All other were Negative. Mental Status Evaluation: Appearance: casually dressed Behavior: cooperative with exam Speech: normal pitch and normal volume Mood: anxious and depressed Affect: constricted Thought Process: within normal limits Thought Content: appropriate responses to questions asked and suicidal Sensorium: person, place and time/date Cognition: average for level of education Insight & Judgement: fair Muscle strength and Tone: Normal/normal Gait:normal. Data Base: I have reviewed all labs and pertinent ones are noted below. Recent Results (from the past 24 hour(s)) POC GLUCOSE Collection Time: 01/03/16 7:54 AM Result Value Ref Range POC GLUCOSE 216 (H) 79-99 mg/dL COMMENT, GLU POC Notified RN/MD POC GLUCOSE Collection Time: 01/03/16 11:47 AM Result Value Ref Range POC GLUCOSE 232 (H) 79-99 mg/dL COMMENT, GLU POC Notified RN/MD POC GLUCOSE Collection Time: 01/03/16 4:43 PM Result Value Ref Range POC GLUCOSE 209 (H) 79-99 mg/dL POC GLUCOSE Collection Time: 01/03/16 8:10 PM Result Value Ref Range POC GLUCOSE 169 (H) 79-99 mg/dL HEMOGLOBIN A1C Collection Time: 01/03/16 11:00 PM Result Value Ref Range HEMOGLOBIN A1C 8.0 (H) 4.0-6.0 % EST. AVG GLUCOSE, A1C 183 mg/dL ASSESSMENT: PRIMARY DIAGNOSIS:Severe recurrent major depression without psychotic features Patient Active Problem List Diagnosis Code ??? Severe recurrent major depression without psychotic features F33.2 Still depressed with + SI PLAN: Support given. Patient informed of importance of compliance with chosen options. Instruction for management/treatment and/or follow up. Provided education about condition and risk factor reduction. Coordination with: [x] Nursing [x] Nurse Obgyn [x] Social Work [] Physician [] Family Patient still needs continued inpatient treatment due to Patient still has suicidal ideations and needs further inpatient observation and stabilization. Patient is tolerating the current medications and continues to consent to treatment plan. I discussed severity/complexity of Her illness which is high. Time spent: 35 Minutes. This may include time with patient , family , nursing staff, social service, consulting physician, treatment team, counseling&/or activities to coordinate the care of the patient . Greater than 50 % of patient time and floor time spent providing counseling and/or coordination of care. * Vikki Morales - 01/02/2016 4:22 PM CDT Alannah Ruano is a 35 y.o. female who presents for Behavioral Health intake evaluation at location of Intake. Patient is alone and information was obtained from patient. Name of Drainman/Relationship/phone #: Dominic Zhang/[phone]; Maryjane Lobo (therapist)/[phone] Collateral information obtained from Drainman: Yes; Explain:verbal Collateral information obtained from other source: No: Explain:n/a Release of Info Signed: yes Referral Source: Referral Source: Primary care physician (01/02/161600) Referral Source Name and Number: Referral Source Name and Number: PCP (Deedee Low, [facility], [facility])/ [phone] (01/02/161600) Living Arrangements: Lives alone (01/02/161613) Current Living Situation: One-story home (01/02/161613) Legal Custody: Self (01/02/161613) RFV/CC: I am having trouble with depression and anxiety/I thought about OD on pills today (01/02/161603) Narrative Summary/History of Present Illness: Precipitating event(s) within past 24-72 hours leading to presentation to the hospital: pt is 35 year old female presented to Intake for depression, anxiety, and SI with plan to OD alone via private vehicle. Pt has history of depression/anxiety and does not have a psychiatrist. Pt has an individual therapist she sees weekly and PCP for medication management. Pt reported increased depression, sadness, and anxiety since her dog in the past month. Pt reported being stressed, difficultyconcentrating, and an overwhelming confusion which ends up in a panic attack. not remembering things, headaches, crying a lot and panic attacks over stupid things When asked what are stupid things,pt replied I forgot how to make spaghetti I forgot my classroom I forgot my login on the computer when at [employer], I forgot if I was by myself or if I am with someone. Pt reported increased worthlessness, feelings of hopelessness, feelings of helplessness, increased crying, isolating, and im paired concentration. Pt reported increased anxiety and panic attacks. Pt reported not being able to function at home and community. Pt was not able to contract for safety and lives alone. Pt denies HI/Psychosis. Pt denies illicit drugs and EtOH use. Pt denies access to guns/weapons. Pt reported medical history of HTN, Diabetes, and migraines. Pt was calm, cooperative, teary, flat affect with some eye contact. Per Dr. Mckay, pt to be admitted to [facility]. Pt is agreeable with the plan. Major Change/Loss/Stressor: (01/02/161611) Risk Assessment [place]-Suicide Severity Rating Scale 1. Do you currently wish you were or wished you could go to sleep and not wake up? : No (01/02/161605) 2. Have you actually had any thoughts of killing yourself? : Yes (01/02/161605) 3. Have you been thinking about how you might kill yourself? : Yes (01/02/161605) Non-Specific Active Suicidal Thought Description: OD on pills (01/02/161605) 4. Have you had these thoughts and had some intention of acting on them? : No (01/02/161605) 5. Have you started to work out or worked out the details of how to kill yourself? Do you intend tocarry out this plan? : No (01/02/161605) 6. Have you ever done anything, started to do anything, or prepared to do anything to end your life?: No (01/02/161605) Access to Firearms: no (01/02/161610) If yes, plan to limit access: denies Impairment in Functioning: moderate Support Sytem: Support System:friends Family/Support System Drainman(s) : Dominic Zhang/ [phone] (01/02/161612) Drainman(s) AUDI Signed: Yes (01/02/161612) Patient Strengths: Good Verbal Skills (01/02/161614) Patient Liabilities: Few/No Coping Skills;Lack of Insight (01/02/161614) Current Treatment Involvement: Current Mental Health Care providers/phone #: none Current Medical PCP: Deedee Low PA Past Treatment History: Previous psychiatric diagnoses and treatments: No (01/02/161605) Has patient been discharged from a hospital within the last 30 days:no All Current Home Medications (per parent/caregiver report): See Chart Family History of Mental Illness: Pt was not able to provide/pt stated family not supportive Pertinent Psychosocial History: Employment Status: Not Employed Legal Concerns Do you have any recent legal concerns?: pt denies (01/02/161611) Probation or Gun Repair Clerk Name (if applicable): pt denies (01/02/161611) Probation or Halfway House Office AUDI Signed: No (01/02/161611) Major Change/Loss/Stressor: (01/02/161611) Substance Abuse Screening: Chemical Abuse Screen History of Withdrawal Symptoms: Denies past symptoms (01/02/161610) Past Withdrawal Symptoms: Denies past symptoms (01/02/161610) Substance Abuse Treatment Hx: Denies past history (01/02/161610) Mental Status Evaluation:sorium/Orientation:person, place, time/date and situation Cog Appearance: Within normal limits (01/02/161611) Behavior: Cooperative (01/02/161611) Observed Emotional State: anxious;flat affect;quiet;sad;cooperative (01/02/161612) Speech: Normal rate/tone (01/02/161611) Thought Processes: Alert (01/02/161611) Social Judgement: Poor decisions (01/02/161611) Sennition:grossly intact Depression Symptoms: Appetite change;Change in energy level;Crying;Feelings of helplessness;Feelings of hopelessness;Feelings of worthlessness;Impaired concentration;Isolative;Loss of interest;Sleep disturbance (01/02/16 160) Anxiety Symptoms: Generalized;Panic attack (01/02/161603) Sharron Symptoms: No problems reported or observed (01/02/161603) Quality of Sleep:fair to poor with difficulty falling back asleep if awakened Current number of hours of sleep: varies Changes in Appetite:decreased Special Needs and Services: Plan/Disposition: [facility] Consulting Physician: Dr. Mckay Attending Physician: Dr. Sanford On-Call Psychiatrist: Dr. Mckay Hand-Off Report Given: no Provisional Diagnoses: ?? Primary Diagnosis: MDD, severe without psychosis; CEDRICK ?? Additional Diagnosis(es): none ?? Acute Medical: HTN; Diabetes: Asthma ?? Psychosocial: family and grief Legal Status: voluntarily Suicide Hotline Resources Provided: no - pt admitted documented in this encounter H&P Notes * Art Sierra MD - 01/03/2016 7:39 AM CDT Patient's Name: Alannah Ruano ADMISSION DATE: 01/02/2016 CHIEF COMPLAINT: ??? I have been having increased depression and anxiety HISTORY OF PRESENT ILLNESS: This is a case of a 35 y.o., female who presents with Worsening depression SI and anxiety present for about month. Patient was admitted to psychiatric unit voluntarily. Per initial assessment, pt is 35 year old female presented to Intake for depression, anxiety, and SI with plan to OD alone via private vehicle but I wouldn't do it .?? Pt has history of depression/anxiety and does not have a psychiatrist.?? Pt has an individual therapist she sees weekly andP for medication management.?? Pt reported increased depression, sadness, and anxiety since her dog in the past month.?? Pt reported being stressed, difficulty concentrating, and an over whelming confusion which ends up in a panic attack.? not remembering things, headaches, crying a lot and panic attacks over stupid things ?? When asked what are stupid things, pt replied I forgot how to make spaghetti I forgot my classroom ?? I forgot my login on the computer ?? when at [facility], I forgot if I was by myself or if I am with someone. ?? Pt reported increased worthlessness, feelings of hopelessness, feelings of helplessness, increased crying, isolating, and impaired concentration.?? Pt reported increased anxiety and panic attacks.?? Pt reported not being able to functionat home and community.?? Pt was not able to contract for safety and lives alone.?? Pt denies HI/Psychosis.?? Pt denies illicit drugs and EtOH use.?? Pt denies access to guns/weapons.?? Pt reported medical history of HTN, Diabetes, and migraines.?? Pt was calm, cooperative, teary, flat affect with some eye contact.?? Per Dr. Mckay, pt to be admitted to [facility].?? Pt is agreeable with the plan.?? Saturday she went to [facility] in [place] and was going to be admitted but left AMA before admission. She has no support from mother and or father of maternal GM. I can't count on any of them . Location : depression/anxiety/SI (Primary Problem) Context: loss of dog and CMI. Severity:4-5/10 with 10 being Best. Duration:month. Modifying Factors: sleeping . Associated Symptoms: Mood anxious and depressed . Worthlessness moderate. Appetite up and down . SLEEP: too much at times. Nervous, restless, or on edge:yes . Energy varying, Anhedonia yes. Concentration poor. Suicidal ideation:yes, Suicidal plan:no, Suicidal intent: no. Homicidal ideation: no, Homicidal plan:no. Homicidal intent: no. HALLUCINATIONS: no. DELUSIONS: no. No sharron or hypomania. PAST PSYCHIATRIC HISTORY: ?? O/P Psychiatrist/therapists: none /Maryjane Celeste Hamilton Counselor ?? Previous admissions:1 when 15 y/o in [place] [facility] after [place] ?? Previous suicide attempts:1 but has hx of self mutilation for 15 years ago and stopped 4 years ago ?? Past Medication History: zoloft and klonopin ?? Previous Rehab. Programs: none ?? Control:no control being used SUBSTANCE ABUSE HISTORY: Tobacco: History Smoking status ??? Never Smoker Smokeless tobacco ??? Not on file ?? . reports that she has never smoked. She does not have any smokeless tobacco history on file. ETOH: History Alcohol Use No ?? . reports that she does not drink alcohol. Illicit Drugs: History Drug Use No ?? . reports that she does not use illicit drugs.. PAST MEDICAL HISTORY: Past Medical History Diagnosis Date ??? Anxiety ??? Depression ??? Diabetes mellitus ??? HTN (hypertension) ??? GERD (gastroesophageal reflux disease) , No past surgical history on file. CURRENT MEDICATIONS: Outpatient Prescriptions Marked as Taking for the 01/02/16 encounter (Hospital Encounter) with [facility] INTAKE, NURSE Medication Sig Dispense Refill ??? lisinopril (PRINIVIL) 10 mg tablet Take 10 mg by mouth daily at bedtime. ??? fexofenadine (OCHOA) 180 mg tablet Take 180 mg by mouth daily with supper. ??? albuterol HFA 90 mcg inhaler Take 2 Puffs by inhalation every 6 hours as needed for Shortness of Breath. ??? clonazePAM (KlonoPIN) 0.5 mg Tablet Take 0.5 mg by mouth 3 times daily as needed for Anxiety. ? ? dapagliflozin-metFORMIN (XIGDUO XR) 5-1,000 mg [...] mouth daily. ??? fluticasone (FLONASE) 50 mcg/spray [place], Suspension Administer 2 Sprays in each nostril daily. ??? sertraline (ZOLOFT) 100 mg tablet Take 100 mg by mouth daily. ??? diphenhydrAMINE (BENADRYL) 25 mg tablet Take 25 mg by mouth every 6 hours as needed for Allergies. ??? rizatriptan (MAXALT SHUTTLELESS LOOM WEAVER) 10 mg Tablet, Rapid Dissolve Place 10 mg inside cheek every 2 hours asneeded for Migraine may repeat in 2 hours; max dose 30mg in 24 hours . ALLERGIES: No Known Allergies FAMILY &SOCIAL HISTORY: Social History Social History ??? Marital Status: Single Spouse Name: N/A ??? Number of Children: N/A ??? Years of Education: N/A Occupational History ??? Not on file. Social History Main Topics ??? Smoking status: Never Smoker ??? Smokeless tobacco: Not on file ??? Alcohol Use: No ??? Drug Use: No ??? Sexual Activity: Partners: Female Control/ Protection: None Other Topics Concern ??? Not on file Social History Narrative ??? No narrative on file . reports that she has never smoked. She does not have any smokeless tobacco history on file. She reports that she does not drink alcohol or use illicit drugs.. ?? Living Situation: Alone ?? Marital History: single ?? Children: none ?? 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 Education: some college ?? [employer] ?? Sexual Orientation: Heterosexual. ?? Abuse:[x] None, [] Emotional, [] Sexual, [] Physical ?? Legal:no ?? Family History of Psychiatric Illness: sister is bipolar and great uncle, Completed Suicide: no ROS: Constitutional: Negative for fever and chills. HENT: Negative for congestion, sore throat and rhinorrhea. Eyes: Negative for visual disturbance. Respiratory: Negative for cough and shortness of breath. Cardiovascular: Negative for chest pain and palpitations. Gastrointestinal: Negative for nausea, vomiting, abdominal pain and diarrhea. Genitourinary: Negative for dysuria and hematuria. Musculoskeletal: Negative for myalgias and back pain. Skin: Negative for rash and wound. Neurological: Negative but refer to psychiatric symptoms. Mental Status Evaluation: Appearance: casually dressed Behavior: cooperative with exam Speech: normal pitch and normal volume Mood: anxious and depressed Affect: constricted Thought Process: within normal limits Thought Content: appropriate responses to questions asked and suicidal Sensorium: person, place and time/date Cognition: Patient is of average intellectual functioning in the way that questions are answered and educational level, general fund of knowledge is adequate, & immediate, short, and retirement isintact. Attention and concentration is fair. Language was intact with ability to name objects and repeat phrases. Patient has capacity to understand the diagnosis and participate in treatment plan. Insight & Judgement: fair Muscle strength and Tone: Normal/normal Gait:normal. BP 137/84 mmHg Pulse 80 Temp(Src) 97.7 ??F (36.5 ??C) (Temporal) Resp 18 Ht 5' 4.69 (1.643m) Wt 117.754 kg (259 lb 9.6 oz) BMI 43.62 kg/m2 SpO2 95% Diagnosis: [place] I: Severe recurrent major depression without psychotic features?anxiety Disorder NOS [place] II:Borderline Personality Dis. [place] III: Past Medical History Diagnosis Date ??? Diabetes mellitus ??? HTN (hypertension) ??? GERD (gastroesophageal reflux disease) [place] IV: CMI and lack of support [place] V : 20 Patient Strengths X Potential for Insight [place] in ADL's Good Verbal Skills Motivation for Treatment Cognitively Intact Good Judgment X Able to Express Needs Good Social Skills X Good Intellectual Ability Good Physical Health Patient Liabilities Poor Physical Health Substance Cognitive Impairment Unmotivated Language/Speech Difficulties Socially Isolated Physical Limitations X Limited/Lack of Insight Visual Problems X Limited Coping Skills LABS ON ADMISSION: Results for orders placed or performed during the hospital encounter of 01/02/16 (from the past 24 hour(s)) POC GLUCOSE Result Value Ref Range POC GLUCOSE 283 (H) 79-99 mg/dL COMMENT, GLU POC Notified RN/MD DRUG SCREEN, URINE Result Value Ref Range AMPHETAMINE QUAL, URINE Negative Negative BARBITURATE QUAL, URINE Negative Negative BENZODIAZEPINE QUAL, URINE Negative Negative COCAINE QUAL URINE Negative Negative OPIATE QUAL, URINE Negative Negative CANNABINOIDS QUAL, URINE Negative Negative PCP QUAL, URINE Negative Negative CREATININE, URINE 51.1 29.0-226.0 mg/dL HCG QUALITATIVE, URINE Result Value Ref Range HCG QUAL URINE Negative Negative COLOR UA Yellow Pale to Dark Yellow CLARITY UA Clear Clear BASIC METABOLIC PANEL Result Value Ref Range SODIUM 139 136-145 mmol/L POTASSIUM 4.1 3.5-5.0 mmol/L CHLORIDE 97 (L) 98-107 mmol/L CO2 26 22-29 mmol/L CALCIUM 10.9 (H) 8.6-10.2 mg/dL BUN 12 6-20 mg/dL CREATININE 0.72 0.51-0.95 mg/dL GLUCOSE 278 (H) 74-99 mg/dL GFR >60 >=60 mL/min/1.73 sq meter GFR, >60 >=60 mL/min/1.73 sq meter ANION GAP 16 8-16 mmol/L CBC WITH DIFFERENTIAL Result Value Ref Range WBC 10.4 (H) 4.0-9.8 K/uL RBC 4.75 3.90-4.90 M/uL HEMOGLOBIN 13.8 11.8-14.8 g/dL HEMATOCRIT 40.7 35.5-44.0 % MCV 85.7 82.0-99.0 fL MCH 29.1 27.2-32.6 pg MCHC 33.9 31.5-35.5 g/dL RDW 12.6 11.5-14.5 % RDW-STDEV 38.8 37.1-48.7 fL PLATELETS 361 (H) 140-350 K/uL MPV 9.5 9.3-12.4 fL NEUTROPHILS 64 % LYMPHOCYTES 27 % MONOCYTES 6 % EOSINOPHILS 2 % BASOPHILS 1 % NEUTROPHIL ABSOLUTE 6.60 1.90-7.00 K/uL LYMPHOCYTE ABSOLUTE 2.85 0.70-4.50 K/uL MONOCYTE ABSOLUTE 0.60 0.10-1.30 K/uL EOSINOPHIL ABSOLUTE 0.22 0.00-0.70 K/uL BASOPHILS ABSOLUTE 0.08 0.00-0.20 K/uL IMMATURE GRANULOCYTES 0 % IMMATURE GRANULOCYTES ABSOLUTE 0.04 (H) 0.00-0.03 K/uL TSH Result Value Ref Range TSH 1.16 0.27-4.20 uIU/mL POC GLUCOSE Result Value Ref Range POC GLUCOSE 216 (H) 79-99 mg/dL COMMENT, GLU POC Notified RN/MD POC GLUCOSE Result Value Ref Range POC GLUCOSE 216 (H) 79-99 mg/dL COMMENT, GLU POC Notified RN/MD No results found. PLAN/RECOMMENDATIONS After discussing the risks and benefits of different types of therapy including medication management and its side effects, it was suggested to the patient to implement the following recommendations: 1. Admit to psychiatric am[facility] under my service. 2. Medical consultation with hospitalist to manage medical comorbidities. 3. Close observations for suicidal behaviors. 4. Social Work consult. 5. Engage the patient in the therapeutic milieu of the unit including groups and activities. 6. Provided psycho education. 7. Reinforced medication compliance. 8. Provided brief supportive psychotherapy. We will provide safety planning interventions including looking for warning signs of an impending suicidal crisis. We will help client with employing internal coping strategies. We will help client utilize social contacts and social settings as means of distraction from suicidal thoughts. We will try to organize family members &/or friends to help resolve the Crisis. We will provide the client with mental health professionals and available resources in the Community.I will increase zoloft to 150 mg daily. I discussed severity/complexity of Her illness which is high. Treatment options and alternatives reviewed with patient and agrees with the above plan. Greater than 50 % patient time and floor time providing counseling and/or coordination of care. Time Spent: 70 Minutes documented in this encounter Consult Notes * Vidhi Rodriguez, RD - 01/03/2016 5:31 PM CDTAssociated Order(s): IP CONSULT TO NUTRITION SERVICES Images from the original note were not included. CLINICAL DIETITIAN PROGRESS NOTE [facility] Nutrition Consult - ADA diet A: Height: 5' 4.69 (164.3 cm) (01/02/161656) Weight: 117.754 kg (259 lb 9.6 oz) (01/02/161656) Body mass index is 43.62 kg/(m^2). IBW/kg (Calculated) Female: 56.28 kg (01/02/161656) IBW/kg (Calculated) Male: 60.78 kg (01/02/161656) Wt Readings from Last 3 Encounters: 01/02/16 117.754 kg (259 lb 9.6 oz) Abdiaziz Score: 23 (01/02/16 1900) Skin:intact Lab Results Component Value Date/Time NA 139 01/02/2016 08:50 PM K 4.1 01/02/2016 08:50 PM CL 97* 01/02/2016 08:50 PM BUN 12 01/02/2016 08:50 PM CREAT 0.72 01/02/2016 08:50 PM GLUCOSE 278* 01/02/2016 08:50 PM CA 10.9* 01/02/2016 08:50 PM GFR >60 01/02/2016 08:50 PM No results found for: HGBA1C, [id number] Pert Meds:insulin,metformin,pepcid, PMH:DM,HTN,Anxiety,depression DIET DIABETIC PO:100% Has been instructed on ADA diet, however also has gastroparesis D: Nutrition education/counseling r/t need for diet education review as evidenced by Pt questions I: Nutritional Needs: 1755 calories (15 garima.kg) Nutrition Intervention: Provided written material and education on ADA diet May order food that is better tolerated May have Glucerna supplements for meal replacment Food Allergies: mushrooms per pt M/E: No further intervention unless otherwise consulted. * Jeimy Mario MD - 01/03/2016 11:46 AM CDTAssociated Order(s): IP CONSULT TO HOSPITALIST [facility] Hospitalist Consult Note Assessment and Plan with Recommendations: 1. Severe recurrent major depression without psychotic features - per psychiatry 2. Diabetes mellitus, type 2 with hyperglycemia - diet, monitor accu checks, resume outpatient PO meds and place on formulary equivalent for toujeo - adjust doses as needed; provide supplemental lispro as needed. Will decrease frequency of accu checks when BG improve. 3. Hypertension - continue lisinopril 4. Allergic rhinitis - resume zyrtec and flonase 5. Routine medical evaluation completed ??? DVT Prophylaxis: ambulating about the unit ??? Plan discussed with patient; questions answered; patient agrees with current plan. ??? Current Code Status: No Order Patient Name: Alannah Ruano Courtesy Copy PCP: Deedee Low PA Date of Admission: 01/02/2016 Date of Service: 01/03/2016 Reason for Consultation: diabetes and hypertension HPI: Patient is a 35 y.o. female admitted to inpatient psychiatry for evaluation and management of depression. Patient states that she is afraid of needles and does not check her sugars at home at itcauses too much anxiety - she thinks her diabetes is fairly well controlled and have done well since the addition of toujeo. She denies fevers, chills, chest pain or shortness of breath. Has difficulty with chronic sinus headaches for which she takes zyrtec, benadryl and flonase at home. PMHx: Past Medical History Diagnosis Date ??? Anxiety ??? Depression ??? Diabetes mellitus ??? HTN (hypertension) ??? GERD (gastroesophageal reflux disease) PSurgHx: No past surgical history on file. Outpt Meds: Prior to Admission Medications Prescriptions Last Dose Informant Patient Reported? Taking? albuterol HFA 90 mcg inhaler Yes Yes Sig: Take 2 Puffs by inhalation every 6 hours as needed for Shortness of Breath. clonazePAM (KlonoPIN) 0.5 mg Tablet Yes Yes Sig: Take 0.5 mg by mouth 3 times daily as needed for Anxiety. dapagliflozin-metFORMIN (XIGDUO XR) 5-1,000 mg tablet, IR & ER, biphasic 24hr Yes Yes Sig: Take 1 Tablet by mouth 2 times daily. diphenhydrAMINE (BENADRYL) 25 mg tablet Yes Yes Sig: Take 25 mg by mouth every 6 hours as needed for Allergies. famotidine (PEPCID) 20 mg tablet Yes Yes Sig: Take 20 mg by mouth daily. fenofibrate (LOFIBRA) 160 mg Tablet Yes Yes Sig: Take 160 mg by mouth daily. fexofenadine (OCHOA) 180 mg tablet Yes Yes Sig: Take 180 mg by mouth daily with supper. fluticasone (FLONASE) 50 mcg/spray [place], Suspension Yes Yes Sig: Administer 2 Sprays in each nostril daily. lisinopril (PRINIVIL) 10 mg tablet Yes Yes Sig: Take 10 mg by mouth daily at bedtime. ondansetron (ZOFRAN ODT) 8 mg Tablet, Rapid Dissolve Yes Yes Sig: Take 8 mg by mouth every 6 hours as needed for Nausea, Emesis or Nausea/Emesis Dissolve [place] top of tongue, then swallow with saliva. . rizatriptan (MAXALT SHUTTLELESS LOOM WEAVER) 10 mg Tablet, Rapid Dissolve Yes Yes Sig: Place 10 mg inside cheek every 2 hours as needed for Migraine may repeat in 2 hours; max dose 30mg in 24 hours . sertraline (ZOLOFT) 100 mg tablet Yes Yes Sig: Take 100 mg by mouth daily. Facility-Administered Medications: None Current Meds: Current Facility-Administered Medications Ordered in Epic Medication Dose Route Frequency Provider Last Rate Last Dose ??? sertraline (ZOLOFT) tablet 150 mg 150 mg Oral Daily Art Sierra MD ? ? dapagliflozin-metFORMIN 5-1,000 mg tablet, IR & ER, biphasic 24hr 1 Tablet 1 Tablet Oral BID Fina Lam NP 1 Tablet at 01/03/16 1001 ??? lisinopril (PRINIVIL) tablet 10 mg 10 mg Oral Daily BEDTIME Fina Lam NP 10 mg at 01/02/162045 ??? famotidine (PEPCID) tablet 20 mg 20 mg Oral Daily Fina Lam NP 20 mg at 01/03/16921 ??? fenofibrate (LOFIBRA) tablet 160 mg 160 mg Oral Daily Fina Lam NP 160 mg at 01/03/16921 ??? fluticasone (FLONASE) 50 mcg/spray nasal inhaler 2 [place] 2 [place] Both Nostrils Daily Fina Lam NP 2 [place] at 01/02/162026 ??? dextrose 5% infusion IV See Admin Notes Fina Lam NP ??? dextrose 50% (D50) syringe 12.5 Gram 12.5 Gram IV See Admin Notes Fina Lam NP ??? dextrose 50% (D50) syringe 25 Gram 25 Gram IV See Admin Notes Fina Lam NP ??? glucagon (Human Recombinant) (GLUCAGEN) 1 mg/mL injection 1 mg 1 mg IM See Admin Notes Fina Lam NP ??? insulin lispro (HumaLOG) 100 units/mL variable dose injection subCUT TID Meals iFna Lam NP 2 Units at 01/03/16 08 ??? artificial tears(hypromellose) 0.5 % ophthalmic solution 1 Drop 1 Drop Both Eyes q 30 min PRN Fina aLm NP ??? ondansetron (ZOFRAN ODT) tablet 4 mg 4 mg Oral q 8 hour PRN Fina Lam NP ??? clonazePAM (KlonoPIN) tablet 0.5 mg 0.5 mg Oral TID PRN Nilsa Mckay MD 0.5 mg at 01/03/16923 ??? acetaminophen (TYLENOL) tablet 650 mg 650 mg Oral q 4 hour PRN Nilsa Mckay MD 650 mg at 01/03/16923 ??? aluminum - magnesium - simethicone (MYLANTA) 200-200-20 mg/5 mL oral suspension 30 mL 30 mL Oral q 6 hour PRN Nilsa Mckay MD ??? magnesium hydroxide (MILK OF MAGNESIA) oral suspension 30 mL 30 mL Oral Daily PRN Nilsa Mckay MD ??? cetirizine (ZyrTEC) tablet 10 mg 10 mg Oral Daily SUPPER Fina Lam NP 10 mg at 01/02/162024 ??? albuterol (PROVENTIL,VENTOLIN) 2.5 mg /3 mL (0.083 %) inhalation solution 2.5 mg 2.5 mg Inhalation Resp q 6 h PRN Fina Lam NP All:No Known Allergies FamHx: notable for diabetes SocHx: Social History Substance Use Topics ??? Smoking status: Never Smoker ??? Smokeless tobacco: Not on file ??? Alcohol Use: No Review of Systems History from chart review and the patient General negative for weight changes, fever ENT Notable for nasal congestion; negative for ear pain Heme/Lymph negative for swollen glands or abnormal bleeding Endocrine negative for polyuria/polydipsia or new changes in weight CV negative for chest pain or dyspnea on exertion Respiratory negative for cough, shortness of breath, or wheezing GI negative for reflux, abdominal pain, change in bowel habits, or black or bloody stools negative for dysuria, trouble voiding, or hematuria MS negative for back pain, neck pain or joint pain or swelling Neuro negative for TIA or stroke symptoms Derm negative for skin rashes or unusual skin lesions All Other ROS Negative Physical Exam: BP 137/84 mmHg Pulse 80 Temp(Src) 97.7 ??F (36.5 ??C) (Temporal) Resp 18 Ht 5' 4.69 (1.643m) Wt 117.754 kg (259 lb 9.6 oz) BMI 43.62 kg/m2 SpO2 95% General appearance alert, cooperative, very anxious and tearful with accu check Head Normocephalic, without obvious abnormality, atraumatic Eyes conjunctivae/corneas clear. PERRL, EOM's intact. Throat Oropharynx clear Neck supple, no adenopathy, no palpable thyroid Back symmetric, no curvature. ROM normal. No CVA tenderness Lungs clear to auscultation bilaterally, no wheezes or rales Chest wall no tenderness to palpation Heart regular rate and rhythm, S1, S2 normal, no murmur Abdomen soft, non-tender. Bowel sounds normal. Extremities BLE without edema Skin No rashes or lesions Lymph nodes Cervical and supraclavicular nodes normal. 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; no abnormal gait noted Cranial Nerves: II: pupils equal, round, reactive to light and accommodation III,VII: ptosis is not present III,IV,: extraocular muscles extra-ocular motions intact V: facial light touch sensation normal bilaterally VII: facial muscle function - upper and lower normal bilaterally VIII: hearing normal IX: soft palate elevation normal bilaterally IX,X: gag reflex not tested XI: trapezius strength normal bilaterally XII: tongue protrudes midline Database: CBC: Recent Labs 01/02/162049 WBC 10.4* HGB 13.8 HCT 40.7 PLT 361* MCV 85.7 BMP: Recent Labs 01/02/162049 GLUCOSE 278* BUN 12 CREAT 0.72 NA 139 K 4.1 CL 97* CO2 26 ANIONGAP 16 CA 10.9* Assessment/Plan: See recommendations above. Thank you for the courtesy of this consult. I have taken the liberty of writing orders consistent with my recommendations. . Jeimy Mario MD [facility] Hospitalist documented in this encounter Miscellaneous Notes * Care Plan - Yancy Poole RN - 01/07/2016 1:50 PM CDT DISCHARGE NOTE The following items have been completed prior to discharge: [x]Discharge follow up plan completed by social work, and present in AVS. [x]Specific follow up appointment made by social work, and contact information in AVS. If the above 2 points are not marked as complete, the following action has been completed. []If discharge plan is incomplete, and manager social responsibility unavailable to see patient prior to discharge,clinical supervisor power reactor/charge nurse notified for review of discharge prior to patient leaving. Standard Suicide Risk Assessment (Developed from the [place] Suicide Rating Scale) Alannah agrees to participate in the following risk assessment. *If Alannah refuses to cooperate with risk assessment, consider notification of her psychiatrist and the clinical supervisor power reactor, also Alannah may be placed in staff view to provide for a safe environment. 1. Do you wish you were , or could go to sleep and not wake up? no 2. Do you currently have any thoughts of killing yourself? no . (If yes to 2, proceed with a-c. If no proceed to question 3.) a. Are you currently thinking about ways you would kill yourself? N/A If yes, explain. Not Applicable b. Do you have a detailed plan in place (time, place, method)? N/A If yes, explain. Not Applicable c. Do you have some intention of acting on this plan? N/A 3. Have you done anything, started to do anything, or prepared to do anything to end your life? unable to assess. If yes, explain. Not Applicable If yes to question 2-a, 2-b, or 2-c proceed to, and complete, High Risk Shift Assessment, and notify psychiatrist. If yes to question 3, consider use of High Risk suicide Assessment. Alannah???s progress toward care plan and treatment plan goals are adequate for discharge, or havebeen resolved. Education has been provided to Alannah in verbal and written form regarding discharge medications,follow up appointments, and outpatient and/or crisis resources available to her. Alannah and/or caregiver relay understanding of instructions, and she is discharged with belongings to home via private vehicle. * Care Plan - Alley Villanueva LMSW - 01/07/2016 8:32 AM CDT Problem: Discharge Planning Goal: Identify discharge needs upon admission and through discharge Outcome: Progressing Met w/ pt to discuss d/c plans. Discussed the importance of psychiatric follow up and medication adherence. Made pt a follow up appointment with IOP for Saturday. She stated she found out last night she has a work obligation she would like to attend on Saturday and would prefer to start IOP on . Informed [facility] is not open on weekends [place] [facility] and pt can discuss with her next available opening on Saturday. Pt agreeable and stated she will call them on Saturday morning. Pt is agreeable to this follow up. Recommended that pt abstain from drugs and alcohol. Explained to pt how to access psychiatrist/ crisis hotline numbers. Pt verbalized understanding ofd/c plans and safety plans. Pt feels safe to leave the hospital for [place] at [facility]. 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 She is pleasant, med compliant, she goes to groups and associates with other patients in the [facility] [place]. She denies SI and knows to come to staff. Precautions/Behavioral Health Precautions: Suicide precautions (01/06/16 173) Summary of Alannah's problems and interventions: (See flowsheets for more detailed summary) Plan of Care Reviewed with: patient (01/06/16 0964) Patient's Individualized Goal: I can't remember (01/04/16 2200) Alannah's response to interventions this shift: Accepting Alannah's perception of symptoms and progress toward goals: improved Discharge follow up plan reviewed/discussed during the 1:1 shift interview: yes Mental Health Assessment:: Since you were last asked, have you actually had thoughts about killing yourself? : No (01/06/161735); If yes, see full assessment in flowsheets. Mental Health Assess Major Change/Loss/Stressor: (01/02/16 161) Behavior: Cooperative;Appropriate to situation (01/06/161735) Verbalized Emotional State: anxiety (01/06/161735) Observed Emotional State: calm;cooperative;accepting (01/06/161735) Techniques Used to [place] with Loss/Stress or Change: counseling (01/02/16 161) Speech: Normal rate/tone (01/02/16 161) Thought Processes: Alert (01/06/161735) Social Judgement: Difficulty in problem solving (01/06/161735) Appearance: Within normal limits (01/06/16 173) Depressive Symptoms: Change in energy level (01/06/161735) Anxiety Symptoms: Generalized (01/06/161735) Manic Symptoms: No problems reported or observed (01/06/161735) Hallucination Type: No problems reported or observed (01/06/161735) Delusions (describe): none observed (01/04/16 0756) Sleep Hours Night (6p-6a): 9 (01/06/16 0600) Medical Issues/New Medication Teaching Alannah was informed about benefits and any potential clinically significant side effects or otherconcerns regarding the administration of the medication she was given. See separate notes for any prn medications provided during shift. * Care Plan - Gabi Castano RN - 01/06/2016 7:43 PM CDT Pathway Day 3 ??? Metabolic: Maintain glucose between 70-180 mg/dL when receiving subcutaneous insulin and between 110-160 mg/dL when receiving IV insulin. Not Met ??? Nutrition Management: Patient maintaining appropriate carbohydrate selections with each meal. Not Met ??? Symptom Management: Patient blood sugars are maintained between 70 mg/dL and 180 mg/dL without reporting signs and symptoms of hyperglycemic or hypoglycemic events. Not Met Nutrition/Endocrine ??? Achieve optimal nutrition and fluid status to meet metabolic needs throughout hospitalization [place] * Care Plan - Gabi Castano RN - 01/06/2016 5:46 PM CDT During this shift, Alannah was given the prn medication klonopin for anxiety, as demonstrated by the following behavior: patient rates her anxiety 6/10 (See MAR for administration time.) Approximately 1 hour after medication administration, Alannah appeared or reported the following: content and s miling. * Care Plan - Alexander Moseley - 01/06/2016 3:46 PM CDT Problem: Depressed Mood Intervention: Promote Coping Process Group Note Group Topic: Goals Group Length of Group: 1 hour Daily goal or treatment plan goal related to current hospitalization: Alannah identified her goal today as talk to a kristen today. Staff intervention(s) provided that support the patient in achieving their stated goal: Staff provided Alannah the opportunity to develop a therapeutic goal to work on today. Narrative of group process and patient's participation (include overall affect and behavior): Alannah fully participated in the session. Alannah's affect was calm and she was cooperative behaviorally. Alannah self reported feeling weepy, hopeful, anxious, apprehensive today. On a scale from 1 to 10 (with 1 being a bad day and 10 being a good day), Alannah rated her mood today a ???6.?? Stated sleeping habits are good and eating habits are alright. Didactic/Psychoeducation Group: Group topic: Cooperation Length of Group: 1 hour During this group, Alannah discussed issues related to her primary treatment goal(s) for this hospitalization/goal of the group: yes Staff intervention(s) provided that support Alannah in achieving her stated goal(s) were as follows: Staff provided Alannah a Cooperation Group to improve cooperation and communication skills. During this group, it was noted that Alannah is making progress toward achieving her stated goal. Alannah was fully engaged in the group and worked well with peers in the cooperation activity. Alannah was able to ask peers for assistance when needed and offered them help when they asked. During the activity, she was able to keep control of her temper / not get frustrated. At the end of the group, she talked about the importance of asking others for assistance when needed and not having to think she can do everything on her own. The following observations were made during this group: Alannah's level of participation in this group was good, affect was tearful, behavior was normal and response to teaching: Verbalizes understanding * Care Plan - Gia Luis - 01/06/2016 1:43 PM CDT Problem: Discharge Planning Goal: Identify discharge needs upon admission and through discharge Outcome: Progressing This tag writer attempted to contact customer care associateDominic # regarding dc planning. This tag writer lvm for customer care associate requesting call back and provided contact information. This tag writer received call from customer care associateDominic swift [phone] returning writers regarding dc planning. This tag writer informed dominic of tentative dc date for tomorrow and informed dominic of f/u care. Dominic is agreeable with dc plans. This tag writer spoke with pt regarding d/c plans and tentative dc date set for tomorrow. Pt and writerdiscussed IOP start date and meeting with new therapist, Alycia Luna. Pt is agreeable to this follow up. Recommended that pt abstain from drugs and alcohol. Explained to pt how to access psychiatrist/ crisis hotline numbers. Pt verbalized understanding of d/c plans and safety plans. Pt feels safe to leave the hospital at this time. * Care Plan - Charlotte Solorio - 01/06/2016 12:43 PM CDT Problem: Depressed Mood Intervention: Promote Coping Didactic/Psychoeducation Group: Group topic: support group information Length of Group: 35 minutes During this group, Alannah discussed issues related to her primary treatment goal(s) for this hospitalization/goal of the group: no Staff intervention(s) provided that support Alannah in achieving her stated goal(s) were as follows: the opportunity to a group discussion and education materials with contact information on supportgroups that are offered in the community to be utilized post discharge. The following observations were made during this group: It was noted that Alannah is making progress toward achieving their stated goal. Alannah's level of participation in this group was good, affect was appropriate, behavior was normal, and response to teaching was Verbalizes understanding. * Care Plan - Gabi Castano RN - 01/06/2016 10:18 AM CDT Shift Narrative: Alannah has low depression and moderate anxiety, she denies SI and knows to come to staff if her thoughts change. She has been managing her anxiety well and is currently going to group this AM. Precautions/Behavioral Health Precautions: Suicide precautions (01/06/16939) Summary of Alannah's problems and interventions: (See flowsheets for more detailed summary) Plan of Care Reviewed with: patient (01/06/16939) Patient's Individualized Goal: I can't remember (01/04/162199) Alannah's response to interventions this shift: Accepting Alannah's perception of symptoms and progress toward goals: improved Discharge follow up plan reviewed/discussed during the 1:1 shift interview: yes Mental Health Assessment:: Since you were last asked, have you actually had thoughts about killing yourself? : No (01/06/16939); If yes, see full assessment in flowsheets. Mental Health Assess Major Change/Loss/Stressor: (01/02/161611) Behavior: Cooperative;Appropriate to situation (01/06/16939) Verbalized Emotional State: anxiety (01/06/16939) Observed Emotional State: calm;cooperative (01/06/16939) Techniques Used to [place] with Loss/Stress or Change: counseling (01/02/16 161) Speech: Normal rate/tone (01/02/161611) Thought Processes: Alert (01/06/16939) Social Judgement: Difficulty in problem solving (01/06/16939) Appearance: Within normal limits (01/06/16939) Depressive Symptoms: Change in energy level (01/06/16939) Anxiety Symptoms: Generalized (01/06/16939) Manic Symptoms: No problems reported or observed (01/06/16939) Hallucination Type: No problems reported or observed (01/06/16939) Delusions (describe): none observed (01/04/16 0756) Sleep Hours Night (6p-6a): 9 (01/06/16 0600) Medical Issues/New Medication Teaching Alannah was informed about benefits and any potential clinically significant side effects or otherconcerns regarding the administration of the medication she was given. See separate notes for any prn medications provided during shift. * Care Plan - Gabi Castano RN - 01/06/2016 10:17 AM CDT Pathway Day 3 ??? Metabolic: Maintain glucose between 70-180 mg/dL when receiving subcutaneous insulin and between 110-160 mg/dL when receiving IV insulin. Not Met ??? Nutrition Management: Patient maintaining appropriate carbohydrate selections with each meal. Not Met ??? Symptom Management: Patient blood sugars are maintained between 70 mg/dL and 180 mg/dL without reporting signs and symptoms of hyperglycemic or hypoglycemic events. Not Met Nutrition/Endocrine ??? Achieve optimal nutrition and fluid status to meet metabolic needs throughout hospitalization [facility] * Care Plan - Gabi Castano RN - 01/06/2016 9:40 AM CDT During this shift, Alannah was given the prn medication klonopin for anxiety, as demonstrated by the following behavior: patient said she was anxious (See MAR for administration time.) Approximately1 hour after medication administration, Alannah appeared or reported the following: happy and relaxed. * Care Plan - Gia Luis - 01/05/2016 4:45 PM CDT Problem: Discharge Planning Goal: Identify discharge needs upon admission and through discharge Outcome: Progressing This tag writer met with pt regarding dc planning. Pt is agreeable to attend [facility]. THiswriter and pt contacted [facility] to set start date. This tag writer answered all questions pertaining to [facility] at this time. Pt and tag writer lvm for therapist, Maryjane Diamond regarding f/u appointment. Requested call back and provided contact information. Pt agreeable for f/u. F/u is as follows: You are enrolled in [facility], our intensive outpatient treatment program. Please arrive at 8:30AM Saturday, January 09, 2016 to begin your intake: Contact: Jazmín [address] [place] [address] Please follow up with your therapist, Maryjane Diamond at [facility] left a message and waiting call back to obtain appointment time and date [address] [place] [address] Please follow up with your PCP, Deedee Low for medication management 1-2 days following discharge [address] [place], [address] * Care Plan - Gabi Castano RN - 01/05/2016 4:21 PM CDT During this shift, Alannah was given the prn medication klonopin for anxiety, as demonstrated by the following behavior: patient said she had some anxiety (See MAR for administration time.) Approximately 1 hour after medication administration, Alannah appeared or reported the following: patient is content and relaxed. * Care Plan - Gabi Castano, RN - 01/05/2016 3:06 PM CDT Shift Narrative: Patient has not been going to groups but she is interacting with other patients inthe lounge, they have been coloring and socializing. She has had anxiety throughout the day but is coping well. She denies SI and knows to come to staff if her thoughts change. Precautions/Behavioral Health Precautions: Suicide precautions (01/05/16 1501) Summary of Alannah's problems and interventions: (See flowsheets for more detailed summary) Plan of Care Reviewed with: patient (01/05/16 7004) Patient's Individualized Goal: I can't remember (01/04/16 2200) Alannah's response to interventions this shift: Accepting Alannah's perception of symptoms and progress toward goals: improved Discharge follow up plan reviewed/discussed during the 1:1 shift interview: yes Mental Health Assessment:: Since you were last asked, have you actually had thoughts about killing yourself? : No (01/05/16 150); If yes, see full assessment in flowsheets. Mental Health Assess Major Change/Loss/Stressor: (01/02/16 1612) Behavior: Cooperative;Appropriate to situation (01/05/16 1501) Verbalized Emotional State: anxiety (01/05/16 1501) Observed Emotional State: calm;combative (01/05/16 1501) Techniques Used to [place] with Loss/Stress or Change: counseling (01/02/16 1612) Speech: Normal rate/tone (01/02/16 1612) Thought Processes: Alert (01/05/16 1501) Social Judgement: Difficulty in problem solving (01/05/16 1501) Appearance: Within normal limits (01/05/16 1501) Depressive Symptoms: Change in energy level (01/05/16 1501) Anxiety Symptoms: Generalized (01/05/16 1501) Manic Symptoms: No problems reported or observed (01/05/16 1501) Hallucination Type: No problems reported or observed (01/05/16 1501) Delusions (describe): none observed (01/04/16 6282) Sleep Hours Night (6p-6a): 7 (01/05/16 8731) Medical Issues/New Medication Teaching Alannah did not receive medications this shift. See separate notes for any prn medications provided during shift. * Care Plan - Gabi Castano RN - 01/05/2016 1:43 PM CDT During this shift, Alannah was given the prn medication maxalt for migraines, as demonstrated by the following behavior: patient complains of migraine (See MAR for administration time.) Approximately 1 hour after medication administration, Alannah appeared or reported the following: patient reports reduced pain. * Care Plan - Alexander Moseley - 01/05/2016 1:07 PM CDT Problem: Depressed Mood Intervention: Promote Coping Process Group Note Group Topic: Goals Group Length of Group: 1 hour Daily goal or treatment plan goal related to current hospitalization: Alannah identified her goal today as see the medical doctor so I can start to feel physically better. Staff intervention(s) provided that support the patient in achieving their stated goal: Staff provided Alannah the opportunity to develop a therapeutic goal to work on today. Narrative of group process and patient's participation (include overall affect and behavior): Alannah fully participated in the session. Alannah's affect was calm and she was cooperative behaviorally. Alannah self reported feeling missing my cats, overwhelmed, physically not well, like to be athome with my cats today. On a scale from 1 to 10 (with 1 being a bad day and 10 being a good day),Alannah rated her mood today a ???5.?? Stated sleeping habits are ok and eating habits are notso great. * Care Plan - Gabi Castano RN - 01/05/2016 1:03 PM CDT During this shift, Alannah was given the prn medication compazine for migraine, as demonstrated bythe following behavior: patient complains of a migraine from the back on her head through her sinuses (See MAR for administration time.) Approximately 1 hour after medication administration, Alannahappeared or reported the following: patient reports significant decrease in pain. * Care Plan - Alley Villanueva LMSW - 01/05/2016 11:06 AM CDT Problem: Discharge Planning Goal: Identify discharge needs upon admission and through discharge Outcome: Progressing [facility] for [facility] to obtain new pt psychiatrist office. ADEBAYO provided direct line for cb. * Care Plan - Gabi Castano RN - 01/05/2016 10:54 AM CDT Shift Narrative: Patient rates depression and anxiety on the lower side. When asked about hallucinations she said she doesn't really have that but her vision is a bit doubled and she will see waves out of the corner of her eyes, like when it looks something is moving when it is not. She said this may be due to a migraine that she has coming on. She denies SI and knows to come to staff if her thoughts change. Precautions/Behavioral Health Precautions: Suicide precautions (01/05/16937) Summary of Alannah's problems and interventions: (See flowsheets for more detailed summary) Plan of Care Reviewed with: patient (01/04/162199) Patient's Individualized Goal: I can't remember (01/04/162199) Alannah's response to interventions this shift: Accepting Alannah's perception of symptoms and progress toward goals: improved Discharge follow up plan reviewed/discussed during the 1:1 shift interview: yes Mental Health Assessment:: Since you were last asked, have you actually had thoughts about killing yourself? : No (01/05/16937); If yes, see full assessment in flowsheets. Mental Health Assess Major Change/Loss/Stressor: (01/02/161611) Behavior: Cooperative (01/05/16937) Verbalized Emotional State: anxiety (01/05/16937) Observed Emotional State: calm;cooperative (01/05/16937) Techniques Used to [place] with Loss/Stress or Change: counseling (01/02/161611) Speech: Normal rate/tone (01/02/161611) Thought Processes: Alert (01/05/16937) Social Judgement: Difficulty in problem solving (01/05/16937) Appearance: Within normal limits (01/05/16937) Depressive Symptoms: Change in energy level (01/05/16937) Anxiety Symptoms: Generalized (01/05/16937) Manic Symptoms: No problems reported or observed (01/05/16937) Hallucination Type: No problems reported or observed (01/05/16937) Delusions (describe): none observed (01/04/16 0756) Sleep Hours Night (6p-6a): 7 (01/05/16 0558) Medical Issues/New Medication Teaching Alannah was informed about benefits and any potential clinically significant side effects or otherconcerns regarding the administration of the medication she was given. See separate notes for any prn medications provided during shift. * Care Plan - Gabi Castano RN - 01/05/2016 10:53 AM CDT Pathway Day 2 ??? Metabolic: Maintain glucose between 70-180 mg/dL when receiving subcutaneous insulin and between 110-160 mg/dL when receiving IV insulin. Not Met ??? Nutrition Management: Patient maintaining appropriate carbohydrate selections with each meal. Not Met ??? Symptom Management: Patient blood sugars are maintained between 70 mg/dL and 180 mg/dL without reporting signs and symptoms of hyperglycemic/hypoglycemic events. Not Met Nutrition/Endocrine ??? Achieve optimal nutrition and fluid status to meet metabolic needs throughout hospitalization [facility] * Care Plan - Gabi Castano RN - 01/05/2016 9:32 AM CDT During this shift, Alannah was given the prn medication klonopin for anxiety, as demonstrated by the following behavior: patient said she is anxious 07/18 (See MAR for administration time.) Approximately 1 hour after medication administration, Alannah appeared or reported the following: patient iscontent and relaxed. * Care Plan - Idalia Austin, RN - 01/05/2016 6:21 AM CDT Alannah remained free from harm throughout shift. No signs or reports of discomfort or distress. Alannah maintained on rounds every fifteen minutes for safety. Staff will continue to monitor Alannah for safety and provide support as needed. Sleep Hours Night (6p-6a): 7 (01/05/16557) Sleep/Rest/Relaxation: no problem identified (01/05/16557) * Care Plan - Crystal Fitzgerald RN - 01/04/2016 11:53 PM CDT INTERDIS PW: HYPERGLYCEMIA, ADULT Pathway Day 2 ??? Nutrition Management: Patient maintaining appropriate carbohydrate selections with each meal. Met INTERDIS PW: HYPERGLYCEMIA, ADULT Pathway Day 2 ??? Symptom Management: Patient blood sugars are maintained between 70 mg/dL and 180 mg/dL without reporting signs and symptoms of hyperglycemic/hypoglycemic events. Not Met SERUM GLUCOSE GREATER THAN GOAL Depressed Mood ??? 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 Progressing Discharge Planning ??? Identify discharge needs upon admission and through discharge Progressing Gastrointestinal ??? Achieve optimal gastrointestinal function by discharge or maintain baseline function Progressing Infection Risk/Actual ??? Infection Risk/Actual: Infection prevention, control, or resolution by discharge Progressing Nutrition/Endocrine ??? Achieve optimal nutrition and fluid status to meet metabolic needs throughout hospitalization Progressing Pain, Potential/Actual ??? Verbalizes/displays acceptable comfort level or baseline comfort level Progressing Safety/Fall ??? Safety/Fall: Absence of fall, injury, harm during hospitalization Progressing Self Injury ??? Halfway: Reduction of self-violent behavior by discharge. Progressing Alannah started her day with significant sinus pain which reportedly triggered N/V not resolved until after dinner. Alannah was administered Zofran PO which she reported helped, and verbalized understanding resting of the gut to prevent further irritation. She denied SI, has been participating ingroups that are offered and making a conscious effort to be more social with unit peers. * Lon Mota RN - 01/04/2016 11:50 PM CDT During this shift, Alannah was given the prn medication Trazodone for sleep, as demonstrated by the following behavior: per pt request (See MAR for administration time.) Approximately 1 hour after medication administration, Alannah appeared or reported the following: asleep * Josi Gillespie - Lon Liang RN - 01/04/2016 10:35 PM CDT During this shift, Alannah was given the prn medication Klonopin for anxiety, Zofran for nausea and Tylenol for a headache. , as demonstrated by the following behavior:per pt request (See MAR for administration time.) Approximately 1 hour after medication administration, Alannah appeared or reported the following: States that she is less anxious and nausea has subsided but still has a headache. * Josi Gillespie - Jose Alberto RN - 01/04/2016 8:07 PM CDT During this shift, Alannah was given the prn medication klonopin for anxiety, as demonstrated by the following behavior: verbal c/o (See MAR for administration time.) Approximately 1 hour after medication administration, Alannah appeared or reported the following: resting in lounge. * Care Plan - Princess Ruelas (Two) - 01/04/2016 4:16 PM CDT Problem: Depressed Mood Intervention: Promote Coping Process Group Note Group Topic: art therapy/self-awareness Length of Group: 1 hour and 45 minutes During this group, Alannah discussed issues related to primary treatment goal(s) for this hospitalization/goal of the group: yes Staff intervention(s) provided that support in achieving stated goal(s) were as follows: art therapy/self-awareness process group Narrative of group process and patient's participation: Alannah fully participated in the creativeprocess during the art therapy group, by creating an emotions colors wheel, using words, colors andsymbols to represent eight emotions, Her image included; Insecure- leads to everything a black hole The following observations were made during this process group: level of participation in this group was good, affect was appropriate, behavior was normal, and response to teaching was Verbalizes understanding. * Care Plan - Alexander Moseley - 01/04/2016 3:28 PM CDT Problem: Depressed Mood Intervention: Promote Coping Process Group Note Group Topic: Goals Group Length of Group: 1 hour Daily goal or treatment plan goal related to current hospitalization: Alannah identified her goal today as go to more groups. Staff intervention(s) provided that support the patient in achieving their stated goal: Staff provided Alannah the opportunity to develop a therapeutic goal to work on today. Narrative of group process and patient's participation (include overall affect and behavior): Alannah fully participated in the session. Alannah's affect was depressed and she was cooperative behaviorally. Alannah self reported feeling miserable, anxious, nervous today. On a scale from 1 to 10(with 1 being a bad day and 10 being a good day), Alannah rated her mood today a ???4.?? Stated sl eeping habits are ok and eating habits are ok. * Care Plan - Jose Alberto RN - 01/04/2016 2:08 PM CDT INTERDIS PW: HYPERGLYCEMIA, ADULT Pathway Day 1 ??? Metabolic: Maintain glucose between 70-180 mg/dL when receiving subcutaneous insulin and between 110-160 mg/dL when receiving IV insulin. Not Met Shift Narrative: Alannah has been attending and participating in groups. Still tearful when havingBG checked/receiving insulin. Attempts to make better nutrition choices but options limited; has not requested a glucerna this shift. BG B:192, L:161. C/o sinus pressure. Denies SI/HI/AVH. Will continue to monitor and provide support. Summary of Alannah???s progress toward above stated goals: Alannah is calm and pleasant during shift. Alannah attends groups. Alannah denies suicidal ideation. Alannah contracts for safety at this time. Alannah is A&Ox4, appetite is good and was med compliant. Will continue to monitor andprovide support. Interventions discussed with Alannah to help her meet above stated goals. Reinforced appropriate use of positive coping skills to help Alannah with suicidal thoughts and medication adherence . Reinforced appropriate behavior expected while on unit. Precautions/Behavioral Health Precautions: Suicide precautions (01/04/16 1100) Summary of Alannah's problems and interventions: (See flowsheets for more detailed summary) Plan of Care Reviewed with: patient (01/04/16755) Patient's Individualized Goal: To get my blood sugars down (01/03/16 0803) Alannah's response to interventions this shift: Accepting Alannah's perception of symptoms and progress toward goals: improved Discharge follow up plan reviewed/discussed during the 1:1 shift interview: yes Mental Health Assessment:: Since you were last asked, have you actually had thoughts about killing yourself? : No (01/04/16755); If yes, see full assessment in flowsheets. Mental Health Assess Major Change/Loss/Stressor: (01/02/161611) Behavior: Cooperative;Fidgety (01/04/16755) Verbalized Emotional State: anxiety;depression (01/04/16755) Observed Emotional State: anxious;cooperative (01/04/16755) Techniques Used to [place] with Loss/Stress or Change: counseling (01/02/161611) Speech: Normal rate/tone (01/02/161611) Thought Processes: Alert;Organized (01/04/16755) Social Judgement: Difficulty in problem solving (01/04/16755) Appearance: Within normal limits (01/04/16755) Depressive Symptoms: Appetite change;Change in energy level;Loss of interest;Feelings of hopelessness (01/04/16755) Anxiety Symptoms: Generalized (01/04/16755) Manic Symptoms: No problems reported or observed (01/04/16755) Hallucination Type: No problems reported or observed (01/04/16755) Delusions (describe): none observed (01/04/16755) Sleep Hours Night (6p-6a): 6.5 (01/04/16 05) Medical Issues/New Medication Teaching Alannah was informed about benefits and any potential clinically significant side effects or otherconcerns regarding the administration of the medication she was given. See separate notes for any prn medications provided during shift. * Care Plan - Jose Alberto RN - 01/04/2016 2:04 PM CDT During this shift, Alannah was given the prn medication klonopin for anxiety, as demonstrated by the following behavior: verbal c/o (See MAR for administration time.) Approximately 1 hour after medication administration, Alannah appeared or reported the following: able to finish art therapy group; reports some nausea. Sitting in lounge, resting. * Care Plan - Alley Villanueva LMSW - 01/04/2016 1:24 PM CDT Problem: Discharge Planning Goal: Identify discharge needs upon admission and through discharge Outcome: Progressing SW received cb from pt's friend, Dominic. Dominic stated she has been friends with pt for over 10 years. She stated she keeps regular daily contact with pt to make sure she is doing ok. She stated pt is typically honest with any changes in symptoms to her and will let her know if she is having an struggles with SI. She stated she is concerned about pt's therapist and her clinical recommendations made. She stated her therapist is pushing pt to get another dog because that is the only thing that will help right now. She stated she is hopeful pt will consider IOP at d/c. She stated pt has a trip planned to go to [place] on January 15 for 5 days and will be with another close friend but wants to make sure there is no safety concerns with her going on this trip. She stated pt remained stable andwas doing really well when seen by a psychiatrist regularly so is glad pt is willing to f/u with a phsyican after d/c. Answered all questions. Discussed ELOS and she stated she thinks pt would be ready to d/c in 1-2 days. She stated she thinks pt is doing a little better. She thanked SW for time and plans to visit pt again this evening. * Care Plan - Jose Alberto RN - 01/04/2016 8:39 AM CDT During this shift, Alannah was given the prn medication klonopin for anxiety, as demonstrated by the following behavior: verbal c/o (See MAR for administration time.) Approximately 1 hour after medication administration, Alannah appeared or reported the following: resting quietly in the lounge, wa tching tv. * Care Plan - Flor Leo RN - 01/04/2016 6:06 AM CDT Alannah appears to have slept throughout the night with little difficulty. She had trouble fallingasleep and complained of mild congestion. Once asleep, she has remained asleep without difficulty. Sleep Hours Night (6p-6a): 6.5 (01/04/16556) Sleep/Rest/Relaxation: no problem identified (01/04/16556) Alannah remained free from harm throughout shift. No behavioral or management problems to report. No aggressive or hostile behavior. No signs or report of distress. No falls or injuries witnessed orreported.Staff will continue to monitor Alannah for safety and provide support as needed. * Care Plan - Flor Leo RN - 01/03/2016 8:37 PM CDT During this shift, Alannah was given the prn medication klonopin for anxiety, as demonstrated by the following behavior: pt request (See MAR for administration time.) Approximately 1 hour after medication administration, Alannah appeared or reported the following: Alannah verbalizes relief. She is resting quietly in bed at this time. * Care Plan - Flor Leo RN - 01/03/2016 8:33 PM CDT INTERDIS PW: HYPERGLYCEMIA, ADULT Pathway Day 1 ??? Metabolic: Maintain glucose between 70-180 mg/dL when receiving subcutaneous insulin and between 110-160 mg/dL when receiving IV insulin. Met ??? Nutrition Management: Patient maintains appropriate carbohydrate selections with each meal. Met ??? Symptom Management: Patient denies signs and symptoms of hyperglycemic or hypoglycemic events. Met * Care Plan - Flor Leo RN - 01/03/2016 8:32 PM CDT [place] Pathway: Behavioral Health Day 1 ??? Patient, family, or healthcare designee verbalizes understanding of admission reason Met ??? Patient seeks out a staff member if feeling unsafe Met ??? Patient displays compliance with medication regimen and understands side effects Met ??? Patient actively participating in plan of care and agrees with Treatment Plan Met * Care Plan - Jose Alberto RN - 01/03/2016 8:17 PM CDT Shift Narrative: Alannah has been attending groups and socializing appropriately. BG at: B:216 L:232 D:205. Denies SI/HI/AVH at this time. Will continue to monitor and provide support. Summary of Alannah???s progress toward above stated goals: Alannah is calm and pleasant during shift. Alannah has been attending groups. Alannah denies suicidal ideation. Alannah contracts for safety at this time. Alannah is A&Ox4, appetite is fair and was med compliant. Will continue to monitor and provide support. Interventions discussed with Alannah to help her meet above stated goals. Reinforced appropriate use of positive coping skills to help Alannah with suicidal thoughts and refraining from self harm .Reinforced appropriate behavior expected while on unit. Precautions/Safety Checks: Suicide precautions;Self mutilation precautions (01/03/162013) Summary of Alannah's problems and interventions: (See flowsheets for more detailed summary) Plan of Care Reviewed with: patient (01/03/16802) Patient's Individualized Goal: To get my blood sugars down (01/03/16802) Alannah's response to interventions this shift: Accepting Alannah's perception of symptoms and progress toward goals: improved Discharge follow up plan reviewed/discussed during the 1:1 shift interview: yes Mental Health Assessment:: Since you were last asked, have you actually had thoughts about killing yourself? : No (01/03/162013); If yes, see full assessment in flowsheets. Mental Health Assess Major Change/Loss/Stressor: (01/02/161611) Behavior: Cooperative (01/03/162013) Verbalized Emotional State: anxiety;depression (01/03/162013) Observed Emotional State: anxious;cooperative (01/03/162013) Techniques Used to [place] with Loss/Stress or Change: counseling (01/02/161611) Speech: Normal rate/tone (01/02/161611) Thought Processes: Alert;Organized (01/03/162013) Social Judgement: Difficulty in problem solving (01/03/162013) Appearance: Within normal limits (01/03/162013) Depressive Symptoms: Change in energy level;Loss of interest (01/03/162013) Anxiety Symptoms: Generalized (01/03/162013) Manic Symptoms: No problems reported or observed (01/03/162013) Hallucination Type: No problems reported or observed (01/03/162013) Delusions (describe): none observed (01/03/162013) Sleep Hours Night (6p-6a): 7 (01/03/16 0600) Medical Issues/New Medication Teaching Alannah was informed about benefits and any potential clinically significant side effects or otherconcerns regarding the administration of the medication she was given. See separate notes for any prn medications provided during shift. * Care Plan - Jose Alberto RN - 01/03/2016 8:10 PM CDT Shift Narrative: Alannah has been attending groups and socializing appropriately. Reported to thiswriter that she does not check blood glucose at home because she does not like pricking her fingers, and she was tearful this shift when having it done. BG at: B:216 L:232; educated on low carb food c hoices, but patient also adheres to what sounds like a low residue diet at home due to ongoing GI issues, and the difficulty figuring out what foods she can eat triggers her depression. Denies SI/HI/AVH at this time. Will continue to monitor and provide support. Summary of Alannah???s progress toward above stated goals: Alannah is calm and pleasant during shift. Alannah has been attending groups. Alannah denies suicidal ideation. Alannah contracts for safety at this time. Alannah is A&Ox4, appetite is fair and was med compliant. Will continue to monitor and provide support. Interventions discussed with Alannah to help her meet above stated goals. Reinforced appropriate use of positive coping skills to help Alannah with suicidal thoughts and refraining from self harm .Reinforced appropriate behavior expected while on unit. Precautions/Safety Checks: Suicide precautions;Self mutilation precautions (01/03/16802) Summary of Alannah's problems and interventions: (See flowsheets for more detailed summary) Plan of Care Reviewed with: patient (01/03/16802) Patient's Individualized Goal: To get my blood sugars down (01/03/16802) Alannah's response to interventions this shift: Accepting Alannah's perception of symptoms and progress toward goals: improved Discharge follow up plan reviewed/discussed during the 1:1 shift interview: yes Mental Health Assessment:: Since you were last asked, have you actually had thoughts about killing yourself? : No (01/03/16802); If yes, see full assessment in flowsheets. Mental Health Assess Major Change/Loss/Stressor: (01/02/161611) Behavior: Cooperative;Fidgety (01/03/16802) Verbalized Emotional State: anxiety;depression;hopelessness (01/03/16802) Observed Emotional State: anxious;sad;overwhelmed (01/03/16802) Techniques Used to [place] with Loss/Stress or Change: counseling (01/02/161611) Speech: Normal rate/tone (01/02/161611) Thought Processes: Alert;Organized (01/03/16802) Social Judgement: Difficulty in problem solving (01/03/16802) Appearance: Within normal limits (01/03/16802) Depressive Symptoms: Appetite change;Change in energy level;Feelings of hopelessness;Loss of interest (01/03/16802) Anxiety Symptoms: Generalized (01/03/16802) Manic Symptoms: No problems reported or observed (01/03/16802) Hallucination Type: No problems reported or observed (01/03/16802) Delusions (describe): no (01/03/16802) Sleep Hours Night (6p-6a): 7 (01/03/16 0600) Medical Issues/New Medication Teaching Alannah was informed about benefits and any potential clinically significant side effects or otherconcerns regarding the administration of the medication she was given. See separate notes for any prn medications provided during shift. * Care Plan - Ernestine Qiu SECONDARY SPECIAL EDUCATION TEACHER - 01/03/2016 3:43 PM CDT Left vm msg for pt's Drainman/OP therapist Maryjane Diamond # . Left phone # for unit & pt's code word. Also requested f/u appt prior to discharge. SW will f/u to obtain appt with an OP Psychiatrist for pt near [place], [place]. * Care Plan - Ernestine Qiu MSW - 01/03/2016 3:29 PM CDT Initial Discharge Planning Assessment completed. ADEBAYO met with alannah to review the psychosocial assessment, develop treatment goals as well as initiate dc plans. Patient was agreeable to meet with this tag writer and reports he/she was referred by self for admission. Patient's reported reason for admission and psychosocial stressors include Increased depression & anxiety attacks following of her dog last month. Pt does not have children & was very attached to the dog, stating he was my reason for everything Pt reports she is constantly fatigued,has trouble concentrating & remembering. . Substance Abuse issues: denies Hx of substance abuse treatment at n/a Patient does not discuss hx of sexual, physical, emotional abuse. Outpatient BH providers: No OP Psychiatrist - sees PCP for meds; sees OP therapist Maryjane Diamond Patient reports she is compliant with medications. PCP verified as Deedee Low PA. Patient's insurance verified as Payor: [employer] / Plan: NET PPO / Product Type: Commercial / Preferred pharmacy is unknown Prior to admission, patient resided at [facility] alone in [place], [place]. Patient reports that she will return to this residence at discharge. Patient has own vehicle for transportation at discharge. Support System includes: Friend Dominic Zhang Primary Emergency Contact: DOMINIC ZHANG Legal Custody/Guardianship/Durable Power of Elevator Attendant: self LG/DPOA Name/Number:??n/a Have legal documents been obtained:n/a If no, explain steps taken to obtain them: n/a Drainman Name and Number: Dominic Zhang friend # &therapist Maryjane Diamond # AUDI Signed: yes Collateral Information from [facility]: Left ms for therapist Maryjane Diamond Collateral information from other source: Employment/Disability Status: Not employed Prior to admission, patient's functional level independent. Prior to admission, patient received assistance with n/a, and had no services in home. Durable medical equipment at home includes none and is supplied by n/a. Patient has not had a stay at an acute care hospital in the last 30 days. Patient is admitted as Voluntary/Involuntary If yes, plan to limit access denies Discussed ELOS and unit programming, pt did sign the tx plan and it was placed in chart. Discharge goals and Needs include return home, f/u with OP Psychiatry as arranged & with OP therapist Maryjane Diamond. Magnetic Locater contact information provided. Magnetic Locater will continue to follow and assist as needed. * Care Plan - Keesha Meléndez - 01/03/2016 3:14 PM CDT Didactic/Psychoeducation Group: Group topic: Goals Length of Group: 45 minutes During this group, Alannah discussed issues related to her primary treatment goal(s) for this hospitalization/goal of the group: stay out of bed until at least 1:00 Staff intervention(s) provided that support Alannah in achieving her stated goal(s) were as follows: encouraged expression of feelings & discussed benefits of daily goal setting The following observations were made during this group: It was noted that Alannah is making limited progress toward achieving their stated goal. Alannah's level of participation in this group was good, affect was depressed, behavior was normal, and response to teaching was Verbalizes understanding. * Care Plan - Natalie Leyva RN - 01/03/2016 6:43 AM CDT Hospitalist notified of admission this morning. * Care Plan - Natalie Leyva RN - 01/03/2016 6:40 AM CDT Alannah remained free from harm throughout shift. No signs or reports of discomfort or distress. Alannah maintained on rounds every fifteen minutes for safety. Staff will continue to monitor Alannah for safety and provide support as needed. Sleep Hours Night (6p-6a): 7 (01/03/16 0600) Sleep/Rest/Relaxation: no problem identified (01/03/16 06) * Care Plan - Natalie Leyva RN - 01/02/2016 11:30 PM CDT During this shift, Alannah was given the prn medication Klonopin 0.5mg for anxiety, as demonstrated by the following behavior: anxiousness (See MAR for administration time.) Approximately 1 hour after medication administration, Alannah appeared or reported the following: sleeping at this time * Care Plan - Natalie Leyva RN - 01/02/2016 10:50 PM CDT During this shift, Alannah was given the prn medication Tylenol for headache, as demonstrated by the following behavior: report of pain (See MAR for administration time.) Approximately 1 hour after medication administration, Alannah appeared or reported the following: medication somewhat effective, pain level decreased to 5/10. * Care Plan - Soledad Oakley RN - 01/02/2016 7:45 PM CDT Arrival date and time to the floor: 01/02/16 Accompanied by: ED Staff/Intake counselor and Security Legal Status on Admission: Pt has been admitted voluntarily Chief Complaint/Reason for Admission: No chief complaint on file. Plan of Care Reviewed with: patient (01/02/161725) Patient's Individualized Goal: wake up and feel better (01/02/161725) Admission Note: Alannah arrived to the unit crying, tearful, suicidal, and distressed. She voiced feelings of hopelessness, helplessness, worthlessness, anxious feelings, suicidal thoughts to overdose and feelings of sadness. Triggers per pt are job related and losing her dog () approximately1 month ago. 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 She contracts for safety while hear and her goal is to feel better in the morning . Home meds inventoried and sent to security except for tuorjo insulin and long acting metformin which are in the med room locked in the refrigerator. Alannah was cooperative with the admission process. Nourishment offered. Alannah oriented to the inpatient unit, handbook, explanation of rights and responsibilities provided to patient. Search of belongings and person completed per policy. Alannah does not require isolation precautions. Staff will continue to monitor Alannah for safety and provide support as needed. Patient Search completed by: Whit Patient Belongings inventoried by: Beck Admission Behavioral Assessment: Since you were last asked, have you actually had thoughts about killing yourself? : No (01/02/161899) Mental Health Assess Major Change/Loss/Stressor: (01/02/161611) Behavior: Cooperative;Restless (01/02/161725) Verbalized Emotional State: anxiety;depression;hopelessness;loneliness;sadness;suicidal thoughts (01/02/161725) Observed Emotional State: anxious;accepting;calm;cooperative;overwhelmed;sad (01/02/161725) Techniques Used to [place] with Loss/Stress or Change: counseling (01/02/161611) Speech: Normal rate/tone (01/02/161611) Thought Processes: Alert;Organized;Coherent;Preoccupied (01/02/161725) Social Judgement: Difficulty in problem solving (01/02/161725) Appearance: Within normal limits (01/02/161725) Depressive Symptoms: Change in energy level;Crying;Feelings of helplessness;Feelings of hopelessness;Feelings of worthlessness;Impaired concentration;Loss of interest;Sleep disturbance (01/02/161725) Anxiety Symptoms: Generalized (01/02/161725) Manic Symptoms: No problems reported or observed (01/02/161725) Hallucination Type: No problems reported or observed (01/02/161725) Delusions (describe): none observed (01/02/161725) VITALS Last BP: (!) 166/97 mmHg (01/02/161656) Last Pulse: 98 (01/02/161656) Last Temp: (!) 96.3 ??F (35.7 ??C) (01/02/161656) Last Resp: 20 (01/02/161656) Safety precautions initiated: SLA, SM Safety precautions maintained per physician order and unit protocols. documented in this encounter Plan of Treatment Not on file documented as of this encounter Procedures Procedure Name Priority Date/Time Associated Diagnosis Comments POC GLUCOSE Routine 01/07/2016 11:48 AM CDT POC GLUCOSE Routine 01/07/2016 7:44 AM CDT POC GLUCOSE Routine 01/06/2016 8:11 PM CDT POC GLUCOSE Routine 01/06/2016 4:31 PM CDT POC GLUCOSE Routine 01/06/2016 11:48 AM CDT POC GLUCOSE Routine 01/06/2016 7:34 AM CDT POC GLUCOSE Routine 01/05/2016 8:30 PM CDT POC GLUCOSE Routine 01/05/2016 4:33 PM CDT POC GLUCOSE Routine 01/05/2016 11:59 AM CDT POC GLUCOSE Routine 01/05/2016 8:27 AM CDT POC GLUCOSE Routine 01/04/2016 8:36 PM CDT POC GLUCOSE Routine 01/04/2016 4:38 PM CDT POC GLUCOSE Routine 01/04/2016 11:43 AM CDT POC GLUCOSE Routine 01/04/2016 7:51 AM CDT HEMOGLOBIN A1C Routine 01/03/2016 11:00 PM CDT POC GLUCOSE Routine 01/03/2016 8:10 PM CDT POC GLUCOSE Routine 01/03/2016 4:43 PM CDT POC GLUCOSE Routine 01/03/2016 11:47 AM CDT POC GLUCOSE Routine 01/03/2016 7:54 AM CDT POC GLUCOSE Routine 01/02/2016 10:36 PM CDT EXTRA TUBE Routine 01/02/2016 8:50 PM CDT EXTRA TUBE (GREEN NO GEL) Routine 01/02/2016 8:50 PM CDT CBC WITH DIFFERENTIAL Routine 01/02/2016 8:50 PM CDT TSH Routine 01/02/2016 8:50 PM CDT BASIC METABOLIC PANEL Routine 01/02/2016 8:50 PM CDT DRUG SCREEN, URINE Routine 01/02/2016 6: 57 PM CDT HCG QUALITATIVE, URINE Routine 01/02/2016 6:57 PM CDT POC GLUCOSE Routine 01/02/2016 5:09 PM CDT documented in this encounter Results * (ABNORMAL) POC GLUCOSE (01/07/2016 11:48 AM CDT) [facility] Signature GLUCOSE POC 137(H) 79 - 99 mg/dL 01/07/2016 11:55 AM CDT [facility] Whole blood specimen (specimen) 01/07/2016 11:48 AM CDT 01/07/2016 11:55 AM CDT Art Abdalla MD POINT OF CARE T ESTING Performing Organization Address [facility]/ZIP Co de Phone Number [facility] [place] [facility] CLIA# [id number] [address] [place] [address] * (ABNORMAL) POC GLUCOSE (01/07/2016 7:44 AM CDT) GLUCOSE POC 159(H) 79 - 99 mg/dL 01/07/2016 7:55 AM CDT [facility] LABOR[facility] Whole blood specimen (specimen) 01/07/2016 7:44 AM CDT 01/07/2016 7:55 AM CDT Art Abdalla MD POINT OF CARE T ESTING Performing Organization Address [facility]/ZIP Co de Phone Number [facility] CLIA# [id number] [address] [place] [address] * (ABNORMAL) POC GLUCOSE (01/06/2016 8:11 PM CDT) GLUCOSE POC 179(H) 79 - 99 mg/dL 01/06/2016 8:15 PM CDT [facility] Whole blood specimen (specimen) 01/06/2016 8:11 PM CDT 01/06/2016 8:15 PM CDT Art Abdalla MD POINT OF CARE T ESTING Performing Organization Address [facility]/ZIP Co de Phone Number [facility] [place] [facility] CLIA# [id number] [address] [place] [address] * (ABNORMAL) POC GLUCOSE (01/06/2016 4:31 PM CDT) GLUCOSE POC 145(H) 79 - 99 mg/dL 01/06/2016 4:35 PM CDT [facility] COMMENT, GLU POC Notified RN/ 01/06/2016 4:35 PM CDT [facility] LABORATORY SERVICES [facility] Whole blood specimen (specimen) 01/06/2016 4:31 PM CDT 01/06/2016 4:35 PM CDT Art Abdalla MD POINT OF CARE T ESTING Performing Organization Address City/[facility]/ZIP Co de Phone Number [facility]# [id number] [address] [place] [address] * (ABNORMAL) POC GLUCOSE (01/06/2016 11:48 AM CDT) GLUCOSE POC 145(H) 79 - 99 mg/dL 01/06/2016 11:50 AM CDT [facility] LABOR[facility] COMMENT, GLU POC Notified SILVER/ 01/06/2016 11:50 AM CDT [facility] LABORATORY SERVICES [facility] Whole blood specimen (specimen) 01/06/2016 11:48 AM CDT 01/06/2016 11:50 AM CDT Art Abdalla MD POINT OF CARE T ESTING Performing Organization Address [facility] Co de Phone Number [facility]# [id number] [address] [place] [address] * (ABNORMAL) POC GLUCOSE (01/06/2016 7:34 AM CDT) GLUCOSE POC 181(H) 79 - 99 mg/dL 01/06/2016 7:40 AM CDT [facility] COMMENT, GLU POC Notified SILVER/ 01/06/2016 7:40 AM CDT [facility] Whole blood specimen (specimen) 01/06/2016 7:34 AM CDT 01/06/2016 7:40 AM CDT Art Abdalla MD POINT OF CARE T ESTING [facility]# [id number] [address] [place] [address] * (ABNORMAL) POC GLUCOSE (01/05/2016 8:30 PM CDT) GLUCOSE POC 153(H) 79 - 99 mg/dL 01/05/2016 8:35 PM CDT [facility] LABORATORY [facility] Whole blood specimen (specimen) 01/05/2016 8:30 PM CDT 01/05/2016 8:35 PM CDT Fina Lam NP POINT OF CARE TEST ING Performing Organization Address [facility] Co de Phone Number [facility]# [id number] [address] [place] [address] * (ABNORMAL) POC GLUCOSE (01/05/2016 4:33 PM CDT) GLUCOSE POC 171(H) 79 - 99 mg/dL 01/05/2016 4:40 PM CDT [facility] LABORATORY [facility] COMMENT, GLU POC Notified RN/ 01/05/2016 4:40 PM CDT [facility] LABOR[facility]ORY [facility] Whole blood specimen (specimen) 01/05/2016 4:33 PM CDT 01/05/2016 4:40 PM CDT Art Abdalla MD POINT OF CARE T ESTING Performing Organization Address [facility]/ZIP Co de Phone Number [facility] [place] [facility]# [id number] [address] [place] [address] * (ABNORMAL) POC GLUCOSE (01/05/2016 11:59 AM CDT) GLUCOSE POC 173(H) 79 - 99 mg/dL 01/05/2016 12:06 PM CDT [facility] LABORATORY [facility] Whole blood specimen (specimen) 01/05/2016 11:59 AM CDT 01/05/2016 12:06 PM CDT Art Abdalla MD POINT OF CARE T ESTING [facility] CLIA# [id number] [address] [place] [address] * (ABNORMAL) POC GLUCOSE (01/05/2016 8:27 AM CDT) GLUCOSE POC 183(H) 79 - 99 mg/dL 01/05/2016 8:40 AM CDT [facility] LABORATORY SERVICES [facility] COMMENT, GLU POC Notified RN/MD 01/05/2016 8:40 AM CDT [facility] LABORATORY [facility] Whole blood specimen (specimen) 01/05/2016 8:27 AM CDT 01/05/2016 8:40 AM CDT Art Abdalla MD POINT OF CARE T ESTING Performing Organization Address City/[facility]/ZIP Co de Phone Number [facility] [place] [facility] CLIA# [id number] [address] [place] [address] * (ABNORMAL) POC GLUCOSE (01/04/2016 8:36 PM CDT) GLUCOSE POC 265(H) 79 - 99 mg/dL 01/04/2016 8:50 PM CDT [facility] LABORATORY [facility] Whole blood specimen (specimen) 01/04/2016 8:36 PM CDT 01/04/2016 8:50 PM CDT Fina Lam NP POINT OF CARE TEST ING [facility] CLIA# [id number] [address] [place] [address] * (ABNORMAL) POC GLUCOSE (01/04/2016 4:38 PM CDT) GLUCOSE POC 169(H) 79 - 99 mg/dL 01/04/2016 4:45 PM CDT [facility] Whole blood specimen (specimen) 01/04/2016 4:38 PM CDT 01/04/2016 4:45 PM CDT Art Abdalla MD POINT OF CARE T ESTING Performing Organization Address [facility]/ZIP Co de Phone Number [facility] [place] [facility] CLIA# [id number] [address] [place] [address] * (ABNORMAL) POC GLUCOSE (01/04/2016 11:43 AM CDT) GLUCOSE POC 161(H) 79 - 99 mg/dL 01/04/2016 11:45 AM CDT [facility] LABORAT[facility] COMMENT, GLU POC Notified RN/MD 01/04/2016 11:45 AM CDT [facility] LABORATORY [facility] Whole blood specimen (specimen) 01/04/2016 11:43 AM CDT 01/04/2016 11:45 AM CDT Art Abdalla MD POINT OF CARE T ESTING Performing Organization Address [facility] Co de Phone Number [facility] [place] [facility] CLIA# [id number] [address] [place] [place] [address] * (ABNORMAL) POC GLUCOSE (01/04/2016 7:51 AM CDT) GLUCOSE POC 192(H) 79 - 99 mg/dL 01/04/2016 7:55 AM CDT [facility] LABORATORY [facility] Whole blood specimen (specimen) 01/04/2016 7:51 AM CDT 01/04/2016 7:55 AM CDT Art Abdalla MD POINT OF CARE T ESTING Performing Organization Address City/[facility]/ZIP Co de Phone Number [facility] [place] [facility] [place] CLIA# [id number] [address] [place] [address] * (ABNORMAL) HEMOGLOBIN A1C (01/03/2016 11:00 PM CDT) HEMOGLOBIN A1C 8.0(H) 4.0 - 6.0 % 01/04/2016 2:22 AM CDT [facility] Comment:Note: Effective as o f 04/01/2015 a new methodology, Turbidimetric inhibition immunoassay (TINIA),has been implemented. EST. AVG GLUCOSE, A1C 183 mg/dL 01/04/2016 2:22 AM CDT [facility] Blood 01/03/2016 11:0 0 PM CDT 01/04/2016 1:56 AM CDT Fina Lam NP CHEMISTRY ORDERABL ES [facility] CLIA# [id number] [address] [place] [address] * (ABNORMAL) POC GLUCOSE (01/03/2016 8:10 PM CDT) GLUCOSE POC 169(H) 79 - 99 mg/dL 01/03/2016 8:25 PM CDT [facility] Whole blood specimen (specimen) 01/03/2016 8:10 PM CDT 01/03/2016 8:25 PM CDT Art Abdalla MD POINT OF CARE T ESTING [facility] CLIA# [id number] [address] [place] [address] * (ABNORMAL) POC GLUCOSE (01/03/2016 4:43 PM CDT) GLUCOSE POC 209(H) 79 - 99 mg/dL 01/03/2016 4:45 PM CDT [facility] Whole blood specimen (specimen) 01/03/2016 4:43 PM CDT 01/03/2016 4:45 PM CDT Art Abdalla MD POINT OF CARE T ESTING [facility] CLIA# [id number] [address] [place] [address] * (ABNORMAL) POC GLUCOSE (01/03/2016 11:47 AM CDT) GLUCOSE POC 232(H) 79 - 99 mg/dL 01/03/2016 11:50 AM CDT [facility] SERVICES [facility] COMMENT, GLU POC Notified RN/MD 01/03/2016 11:50 AM CDT [facility] Whole blood specimen (specimen) 01/03/2016 11:47 AM CDT 01/03/2016 11:50 AM CDT Art Abdalla MD POINT OF CARE T ESTING [facility] [place] [facility] CLAZ# [id number] [address] [place] [address] * (ABNORMAL) POC GLUCOSE (01/03/2016 7:54 AM CDT) GLUCOSE POC 216(H) 79 - 99 mg/dL 01/03/2016 8:00 AM CDT [facility] SERVICES [facility] COMMENT, GLU POC Notified RN/MD 01/03/2016 8:00 AM CDT [facility] SERVICES [facility] Whole blood specimen (specimen) 01/03/2016 7:54 AM CDT 01/03/2016 8:00 AM CDT Art Abdalla MD POINT OF CARE T ESTING [facility] CLIA# [id number] [address] [place] [address] * (ABNORMAL) POC GLUCOSE (01/02/2016 10:36 PM CDT) GLUCOSE POC 216(H) 79 - 99 mg/dL 01/02/2016 10:40 PM CDT [facility] COMMENT, GLU POC Notified RN/MD 01/02/2016 10:40 PM CDT [facility] Whole blood specimen (specimen) 01/02/2016 10:36 PM CDT 01/02/2016 10:40 PM CDT Art Abdalla MD POINT OF CARE T ESTING [facility] CLIA# [id number] [address] [place] [address] * EXTRA TUBE (GREEN NO GEL) (01/02/2016 8:50 PM CDT) Blood Collection / Unknown 01/02/2016 8:50 PM CDT 01/02/2016 8:50 PM CDT External Provider [facility] CHEMISTRY ORDERA BLES Performing Organization Address [facility]/ZIP Co de Phone Number [facility] CLIA# [id number] [address] [place] [address] * TSH (01/02/2016 8:50 PM CDT) Pathologist [facility] TSH 1.16 0.27 - 4.20 uIU/mL 01/02/2016 9:47 PM CDT [facility] Blood Collection / Unknown 01/02/2016 8:50 PM CDT 01/02/2016 8:48 PM CDT Nilsa Mckay MD CHEMISTRY ORDERABLES Performing Organization Address City/[facility]/ZIP Co de Phone Number [id number] [address] [place] [address] * (ABNORMAL) CBC WITH DIFFERENTIAL (01/02/2016 8:50 PM CDT) WBC 10.4(H) 4.0 - 9.8 K/uL 01/02/2016 9:19 PM CDT [facility] RBC 4.75 3.90 - 4.90 M/uL 01/02/2016 9:19 PM CDT [facility] HEMOGLOBIN 13.8 11.8 - 14.8 g/dL 01/02/2016 9:19 PM CDT [facility] HEMATOCRIT 40.7 35.5 - 44.0 % 01/02/2016 9:19 PM CDT [facility] MCV 85.7 82.0 - 99.0 fL 01/02/2016 9:19 PM CDT [facility] MCH 29.1 27.2 - 32.6 pg 01/02/2016 9:19 PM CDT [facility] MCHC 33.9 31.5 - 35.5 g/dL 01/02/2016 9:19 PM CDT [facility] RDW 12.6 11.5 - 14.5 % 01/02/2016 9:19 PM CDT [facility] RDW-STDEV 38.8 37.1 - 48.7 fL 01/02/2016 9:19 PM CDT [employer] [facility] - [facility] PLATELETS 361(H) 140 - 350 K/uL 01/02/2016 9:19 PM CDT [facility] MPV 9.5 9.3 - 12.4 fL 01/02/2016 9:19 PM CDT [facility] NEUTROPHILS 64 % 01/02/2016 9:19 PM CDT [facility] LYMPHOCYTES 27 % 01/02/2016 9:19 PM CDT [facility] MONOCYTES 6 % 01/02/2016 9:19 PM CDT [facility] EOSINOPHILS 2 % 01/02/2016 9:19 PM CDT [facility] BASOPHILS 1 % 01/02/2016 9:19 PM CDT [facility]ATORY [facility] NEUTROPHIL ABSOLUTE 6.60 1.90 - 7.00 K/uL 01/02/2016 9:19 PM CDT [facility] LYMPHOCYTE ABSOLUTE 2.85 0.70 - 4.50 K/uL 01/02/2016 9:19 PM CDT [facility] MONOCYTE ABSOLUTE 0.60 0.10 - 1.30 K/uL 01/02/2016 9:19 PM CDT [facility] EOSINOPHIL ABSOLUTE 0.22 0.00 - 0.70 K/uL 01/02/2016 9:19 PM CDT [facility] BASOPHILS ABSOLUTE 0.08 0.00 - 0.20 K/uL 01/02/2016 9:19 PM CDT [facility] IMMATURE GRANULOCYTES 0 % 01/02/2016 9:19 PM CDT [employer] LABORATORY SERVICES - [facility] IMMATURE GRANULOCYTES ABSOLUTE 0.04(H) 0.00 - 0.03 K/uL 01/02/2016 9:19 PM CDT [employer] LABORATORY SERVICES - [facility] Blood Collection / Unknown 01/02/2016 8:50 PM CDT 01/02/2016 8:50 PM CDT Nilsa Mckay MD HEMATOLOGY ORDERABLE S [facility] - [facility]# [id number] [address] [place] [address] * (ABNORMAL) BASIC METABOLIC PANEL (01/02/2016 8:50 PM CDT) SODIUM 139 136 - 145 mmol/L 01/02/2016 9:40 PM CDT [facility] POTASSIUM 4.1 3.5 - 5.0 mmol/L 01/02/2016 9:40 PM CDT [facility] CHLORIDE 97(L) 98 - 107 mmol/L 01/02/2016 9:40 PM CDT [facility] CO2 26 22 - 29 mmol/L 01/02/2016 9:40 PM CDT [facility] CALCIUM 10.9(H) 8.6 - 10.2 mg/dL 01/02/2016 9:40 PM CDT [facility] LABORATORY SERVICES [facility] BUN 12 6 - 20 mg/dL 01/02/2016 9:40 PM CDT [facility] CREATININE 0.72 0.51 - 0.95 mg/dL 01/02/2016 9:40 PM CDT [facility] GLUCOSE 278(H) 74 - 99 mg/dL 01/02/2016 9:40 PM T [facility] GFR >60 >=60 mL/min/1.7 3 sq meter 01/02/2016 9:40 PM CDT [facility] Comment: eGFR has not been validated for use in the elderly (> 70 years of age), women, patients with serious co-morbid conditions, or persons with extremes of body size or muscle mass and should also be interpreted with caution in patients with acute kidney failure, dialysis dependent patients, patients reporting exceptional dietary intake (e.g. vegetarian diet, high protein diets, creatine supplementation), and patients with severe liver disease. Based on National Kidney Disease Education Program If patient is , please refer to the GFR result. GFR, >60 >=60 mL/min/1.7 3 sq meter 01/02/2016 9:40 PM CDT [facility] ANION GAP 16 8 - 16 mmol/L 01/02/2016 9:40 PM CDT [facility] Blood Collection / Unknown 01/02/2016 8:50 PM CDT 01/02/2016 8:48 PM CDT Nilsa Mckay MD CHEMISTRY ORDERABLES [facility]# [id number] [address] [facility] [address] [place] [address] * HCG QUALITATIVE, URINE (01/02/2016 6:57 PM CDT) HCG QUAL URINE Negative Negative 01/02/2016 10:06 PM CDT [facility] COLOR UA Yellow Pale to Dark Yellow 01/02/2016 10:06 PM CDT [facility] [place] [facility] CLARITY UA Clear Clear 01/02/2016 10:06 PM T [facility] [place] [facility] Urine URINE SPECIMEN OBTAINED BY CLEAN CATCH PROCEDURE / Unknown Collection / Unknown 01/02/2016 6:57 PM CDT 01/02/2016 9:53 PM CDT Nilsa Mckay MD URINE ORDERABLES [facility] [place] [facility] CLIA# [id number] [address] [facility] [place] [address] * DRUG SCREEN, URINE (01/02/2016 6:57 PM CDT) AMPHETAMINE QUAL, URINE Negative Negative 01/02/2016 10:36 PM CDT [facility] [place] [facility] BARBITURATE QUAL, URINE Negative Negative 01/02/2016 10:36 PM CDT [facility] [place] [facility] BENZODIAZEPINE QUAL, URINE Negative Negative 01/02/2016 10:36 PM CDT [facility] [place] [facility] COCAINE QUAL URINE Negative Negative 01/02/2016 10:36 PM CDT [facility] [place] [facility] OPIATE QUAL, URINE Negative Negative 01/02/2016 10:36 PM CDT [facility] [place] [facility] CANNABINOIDS QUAL, URINE Negative Negative 01/02/2016 10:36 PM CDT [facility] [place] [facility] PCP QUAL, URINE Negative Negative 01/02/2016 10:36 PM CDT [facility] [place] [facility] CREATININE, URINE 51.1 29.0 - 226.0 mg/dL 01/02/2016 10:36 PM CDT [facility] Comment: Reference Range varies with fluid intake and diet. Urine URINE SPECIMEN OBTAINED BY CLEAN CATCH PROCEDURE / Unknown Collection / Unknown 01/02/2016 6:57 PM CDT 01/02/2016 9:53 PM CDT Narrative [facility]ATORY SERVICES [facility] - 01/02/2016 10:36 PM CDT DOA INTERP: Urine sample was not handled as a legal specimen and was received without a chain of custody. ??The result should be used only for medical purposes. False positive and erroneous results can occur due to cross-reacting substances and other factors. Depending on the clinical context, confirmation of all presumptive positive results by a more specific alternate method is recommended. ??A negative result indicates the analyte, if present, is below the screening threshold. Drug ? Ref. Range ?Screening Threshold Amphetamines ?Negative ?1000 ng/mL Barbiturates ?Negative ? 200 ng/mL Benzodiazepines ? Negative ? 300 ng/mL Cannabinoids ?Negative ?50 ng/mL Cocaine Metabolites ?? Negative ? 300 ng/mL Opiates ? Negative ? 300 ng/mL Phencyclidine ? Negative ?25 ng/mL Nilsa Mckay MD URINE ORDERABLES Performing Organization Address [facility]/State/[facility] Co de Phone Number [facility]# [id number] [address] [facility] [place] [address] * (ABNORMAL) POC GLUCOSE (01/02/2016 5:09 PM CDT) GLUCOSE POC 283(H) 79 - 99 mg/dL 01/02/2016 5:15 PM CDT [facility] COMMENT, GLU POC Notified RN/ 01/02/2016 5:15 PM CDT [facility] Whole blood specimen (specimen) 01/02/2016 5:09 PM CDT 01/02/2016 5:15 PM CDT Art Abdalla MD POINT OF CARE T [facility] Organization Address City/State/ZIP Co de Phone Number [facility]# [id number] [address] [place] [address] documented in this encounter Visit Diagnoses Diagnosis Severe recurrent major depression without psychotic features- Primary Major depressive disorder, recurrent episode, severe, without mention of psychotic behavior Routine general medical examination at a health care facility Type 2 diabetes mellitus without complication, without long-term current use of insulin Seasonal allergic rhinitis due to pollen Benign hypertension Essential hypertension, benign documented in this encounter Administered Medications Inactive Administered Medications - up to 3 most recent administrations Medication Order MAR Action Action Date Dose Rate Site acetaminophen (TYLENOL) tablet 650 mg 650 mg, Oral, EVERY 4 HOURS PRN, Starting on Sat01/02/16 at 1840, Until 01/07/16 at 1603, Pain, Routine Given 01/05/2016 9:38 AM CDT 650 mg Given 01/04/2016 9:30 PM CDT 650 mg Given 01/04/2016 2:04 PM CDT 650 mg artificial tears(hypromellose) 0.5 % ophthalmic solution 1 Drop 1 Drop, Both Eyes, EVERY 30 MINUTES PRN, Starting on Sat01/02/16 at 1837, Until 01/07/16 at 1603, Discomfort, Routine Given 01/07/2016 10:06 AM CDT 1 [place] p cetirizine (ZyrTEC) tablet 10 mg 10 mg, Oral, DAILY WITH SUPPER, First dose on Sat01/02/16 at 1945, Until Discontinued, Routine Given 01/06/2016 5:36 PM CDT 10 mg Given 01/05/2016 4:21 PM CDT 10 mg Given 01/04/2016 4:58 PM CDT 10 mg clonazePAM (KlonoPIN) tablet 0.5 mg 0.5 mg, Oral, THREE TIMES DAILY PRN, Starting on Sat01/02/16 at 1839, Until 01/07/16 at 1603, Anxiety, Routine Given 01/07/2016 11:15 AM CDT 0.5 mg Given 01/07/2016 12:22 AM CDT 0.5 mg Given 01/06/2016 5:36 PM CDT 0.5 mg dapagliflozin-metFORMIN 5-1,000 mg tablet, IR & ER, biphasic 24hr 1 Tablet 1 Tablet, Oral, TWO TIMES DAILY, First dose on Sat01/02/16 at 2100, Until Discontinued, Routine, Previous Med: dapagliflozin-metFORMIN (XIGDUO XR) 5-1,000 mg tablet, IR & ER, biphasic 24hr - Orig Sig - Take 1 Tablet by mouth 2 times daily. Given 01/07/2016 9:00 AM CDT 1 Tablet Given 01/06/2016 9:00 PM CDT 1 Tablet Given 01/06/2016 9:40 AM CDT 1 Tablet dextromethorphan-guaiFENesin (ROBITUSSIN DM) 10-100 mg/5 mL oral solution 5 mL 5 mL, Oral, EVERY 4 HOURS PRN, Starting on Sat01/04/16 at 1438, Until Sat01/07/16 at 1603, Cough, Routine Given 01/04/2016 4:54 PM CDT 5 mL famotidine (PEPCID) tablet 20 mg 20 mg, Oral, DAILY, First dose on Sat01/03/16 at 0900, Until Discontinued, Routine Given 01/07/2016 8:27 AM CDT 20 mg Given 01/06/2016 8:30 AM CDT 20 mg Given 01/05/2016 9:32 AM CDT 20 mg fenofibrate (LOFIBRA) tablet 160 mg 160 mg, Oral, DAILY, First dose on Sat01/03/16 at 0900, Until Discontinued, Routine Given 01/07/2016 8:2 7 AM CDT 160 mg Given 01/06/2016 8:30 AM CDT 160 mg Given 01/05/2016 8:31 AM CDT 160 mg fluticasone (FLONASE) 50 mcg/spray nasal inhaler 2 [place] 2 [place], Both Nostrils, DAILY, First dose on Sat01/02/16 at 1945, Until Discontinued, Routine Given 01/06/2016 5:36 PM CDT 2 Sprays Given 01/05/2016 4:21 PM CDT 2 Sprays Given 01/04/2016 4:56 PM CDT 2 Sprays insulin glargine (LANTUS) 100 unit/mL injection 8 Units 8 Units, subCUT, DAILY AT BEDTIME, First dose on Sat01/03/16 at 2100, Until Discontinued, Routine Given 01/06/2016 8:54 PM CDT 8 Units Arm, Left Upper Given 01/05/2016 8:42 PM CDT 8 Units Ar m, Left Upper Given 01/04/2016 9:24 PM CDT 8 Units Ar m, Right Upper insulin lispro (HumaLOG) 100 units/mL variable dose injection subCUT, THREE TIMES DAILY WITH MEALS, First dose on Sat01/02/16 at 1845, Until Discontinued, Routine Given 01/07/2016 8:15 AM CDT 1 Units Right Arm Given 01/06/2016 4:38 PM CDT 1 Units Ar m, Right Upper Given 01/06/2016 11:50 AM CDT 1 Units A rm, Right Upper lisinopril (PRINIVIL) tablet 10 mg 10 mg, Oral, DAILY AT BEDTIME, First dose on Sat01/02/16 at 2100, Until Discontinued, Routine Given 01/06/2016 8:52 PM CDT 10 mg Given 01/05/2016 8:40 PM CDT 10 mg Given 01/04/2016 9:27 PM CDT 10 mg ondansetron (ZOFRAN ODT) tablet 4 mg 4 mg, Oral, EVERY 8 HOURS PRN, Starting on Sat01/02/16 at 1837, Until 01/07/16 at 1603, Nausea/Emesis, Routine Given 01/07/2016 8:27 AM CDT 4 mg Given 01/06/2016 10:04 PM CDT 4 mg Given 01/06/2016 7:32 AM CDT 4 mg prochlorperazine maleate (COMPAZINE) tablet 10 mg 10 mg, Oral, EVERY 6 HOURS PRN, Starting on Mariaelena 01/05/16 at 1211, Until 01/07/16 at 1603, Nausea, Other (See Comment), migraine, Routine Given 01/06/2016 5:36 PM CDT 10 mg Given 01/06/2016 8:38 AM CDT 10 mg Given 01/05/2016 1:03 PM CDT 10 mg rizatriptan (MAXALT) tablet 10 mg 10 mg, Oral, EVERY 2 HOURS PRN, Starting on Mariaelena 01/05/16 at 1251, Until 01/07/16 at 1603, Migraine, Routine Given 01/07/2016 10:10 AM CDT 10 mg Given 01/06/2016 9:00 PM CDT 10 mg Given 01/06/2016 7:28 AM CDT 10 mg sertraline (ZOLOFT) tablet 100 mg 100 mg, Oral, DAILY, First dose on Sat01/02/16 at 1945, Until Discontinued, Routine Given 01/02/2016 8:2 5 PM CDT 100 mg sertraline (ZOLOFT) tablet 150 mg 150 mg, Oral, DAILY, First dose (after last modification) on Sat01/03/16 at 1700, Until Discontinued, Routine Given 01/05/2016 4:30 PM CDT 150 mg Given 01/04/2016 4:56 PM CDT 150 mg Given 01/03/2016 6:08 PM CDT 150 mg sertraline (ZOLOFT) tablet 200 mg 200 mg, Oral, DAILY, First dose (after last modification) on Sat01/06/16 at 1700, Until Discontinued, Routine Given 01/06/2016 5:36 PM CDT 200 mg traZODone (DESYREL) tablet 50 mg 50 mg, Oral, NIGHTLY PRN, Starting on Sat01/04/16 at 0747, Until 01/07/16 at 1603, Insomnia, Routine Given 01/04/2016 10:51 PM CDT 50 mg documented in this encounter Active and Recently Administered Medications Times are shown in CDT. Scheduled Medication Order 01/05/2016 01/06/2016 01/07/2016 cetirizine (ZyrTEC) tablet 10 mg (CANCELED) 10 mg, Oral, DAILY WITH SUPPER, First dose on Sat01/02/16 at 1945, Until Discontinued, Routine 1621 (Given - Provider: Gabi Castano RN) 1736 (Given - Provider: Gabi Castano RN) dapagliflozin-metFORMI N 5-1,000 mg tablet, IR & ER, biphasic 24hr 1 Tablet (CANCELED) 1 Tablet, Oral, TWO TIMES DAILY, First dose on Sat01/02/16 at 2100, Until Discontinued, Routine, Previous Med: dapagliflozin-metFORMI N (XIGDUO XR) 5-1,000 mg tablet, IR & ER, biphasic 24hr - Orig Sig - Take 1 Tablet by mouth 2 times daily. 0932 (Given - Provider: Gabi Castano RN)2100 (Given - Provider: Vidhi Mcdonald RN) 0940 (Given - Provider: Gabi Castano RN)2100 (Given - Provider: Vidhi Mcdonald RN) 0900 (Given - Provider: Yancy Poole RN) famotidine (PEPCID) tablet 20 mg (CANCELED) 20 mg, Oral, DAILY, First dose on Sat01/03/16 at 0900, Until Discontinued, Routine 0932 (Given - Provider: Gabi Castano RN) 0830 (Given - Provider: Gabi Castano RN) 0827 (Given - Provider: Yancy Poole RN - Comment: medication given and scanned, not recorded) fenofibrate (LOFIBRA) tablet 160 mg (CANCELED) 160 mg, Oral, DAILY, First dose on Sat01/03/16 at 0900, Until Discontinued, Routine 0831 (Given - Provider: Gabi Castano RN) 0830 (Given - Provider: Gabi Castano RN) 0827 (Given - Provider: Yancy Poole RN) fluticasone (FLONASE) 50 mcg/spray nasal inhaler 2 [place] (CANCELED) 2 [place], Both Nostrils, DAILY, First dose on Sat01/02/16 at 1945, Until Discontinued, Routine 1621 (Given - Provider: Gabi Castano RN) 1736 (Given - Provider: Gabi Castano RN) insulin glargine (LANTUS) 100 unit/mL injection 8 Units (CANCELED) 8 Units, subCUT, DAILY AT BEDTIME, First dose on Sat01/03/16 at 2100, Until Discontinued, Routine 2041 (Given - Provider: Vidhi Mcdonald RN - Comment: Blood sugar 153) 2053 (Given - Provider: Vidhi Mcdonald, RN - Comment: blood sugar 179) insulin lispro (HumaLOG) 100 units/mL variable dose injection (CANCELED) subCUT, THREE TIMES DAILY WITH MEALS, First dose on Sat01/02/16 at 1845, Until Discontinued, Routine 0829 (Given - Provider: Gabi Castano RN)1203 (Given - Provider: Gabi Castano RN)1639 (Given - Provider: Gabi Castano RN) 0744 (Given - Provider: Gabi Castano RN)1150 (Given - Provider: Gabi Castano RN)1638 (Given - Provider: Gabi Castano RN) 0815 (Given - Provider: Yancy Poole RN - Comment: Blood glucose 159)1200 (Not Given - Provider: Yancy Poole RN - Reason: Lab results) lisinopril (PRINIVIL) tablet 10 mg (CANCELED) 10 mg, Oral, DAILY AT BEDTIME, First dose on Sat01/02/16 at 2100, Until Discontinued, Routine 2040 (Given - Provider: Vidhi Mcdonald RN) 205 (Given - Provider: Vidhi Mcdonald RN) sertraline (ZOLOFT) tablet 150 mg (CANCELED) 150 mg, Oral, DAILY, First dose (after last modification) on Sat01/03/16 at 1700, Until Discontinued, Routine 1630 (Given - Provider: Gabi Castano RN) sertraline (ZOLOFT) tablet 200 mg 200 mg, Oral, DAILY, First dose (after last modification) on Sat01/06/16 at 1700, Until Discontinued, Routine 1736 (Given - Provider: Gabi Castano RN) PRN Medication Order 01/05/2016 01/06/2016 01/07/2016 acetaminophen (TYLENOL) tablet 650 mg (CANCELED) 650 mg, Oral, EVERY 4 HOURS PRN, Starting on Sat01/02/16 at 1840, Until 01/07/16 at 1603, Pain, Routine 0938 (Given - Provider: Gabi Castano RN) artificial tears(hypromellose) 0.5 % ophthalmic solution 1 Drop (CANCELED) 1 Drop, Both Eyes, EVERY 30 MINUTES PRN, Starting on Sat01/02/16 at 1837, Until 01/07/16 at 1603, Discomfort, Routine 1006 (Given - Provider: Yancy Poole RN) clonazePAM (KlonoPIN) tablet 0.5 mg (CANCELED) 0.5 mg, Oral, THREE TIMES DAILY PRN, Starting on Sat01/02/16 at 1839, Until 01/07/16 at 1603, Anxiety, Routine 0932 (Given - Provider: Gabi Castano RN)1621 (Given - Provider: Gabi Castano RN) 0940 (Given - Provider: Gabi Castano RN)1736 (Given - Provider: Gabi Castano RN) 0022 (Given - Provider: Vidhi Mcdonald, RN - Comment: for c/o anxiety)1115 (Given - Provider: Yancy Poole, RN) ondansetron (ZOFRAN ODT) tablet 4 mg (CANCELED) 4 mg, Oral, EVERY 8 HOURS PRN, Starting on 01/02/16 at 1837, Until 01/07/16 at 1603, Nausea/Emesis, Routine 1742 (Given - Provider: Gabi Castano RN) 0732 (Given - Provider: Gabi Castano RN)2204 (Given - Provider: Vidhi Mcdonald, RN - Comment: for c/o nausea) 0827 (Given - Provider: Yancy Poole, RN) prochlorperazine maleate (COMPAZINE) tablet 10 mg 10 mg, Oral, EVERY 6 HOURS PRN, Starting on [place] 01/05/16 at 1211, Until 01/07/16 at 1603, Nausea, Other (See Comment), migraine, Routine 1303 (Given - Provider: Gabi Castano RN) 0838 (Given - Provider: Gabi Castano RN)1736 (Given - Provider: Gabi Castano RN) rizatriptan (MAXALT) tablet 10 mg (CANCELED) 10 mg, Oral, EVERY 2 HOURS PRN, Starting on [place] 01/05/16 at 1251, Until 01/07/16 at 1603, Migraine, Routine 1343 (Given - Provider: Gabi Castano RN)1741 (Given - Provider: Gabi Castano RN) 0728 (Given - Provider: Gabi Castano RN)2100 (Given - Provider: Vidhi Mcdonald, RN - Comment: c/o migraine [place]) 1010 (Given - Provider: Yancy Poole, SILVER) traZODone (DESYREL) tablet 50 mg 50 mg, Oral, NIGHTLY PRN, Starting on 01/04/16 at 0747, Until 01/07/16 at 1603, Insomnia, Routine documented in this encounter Care Teams Cushion Maker Hand Relationship Specialty Start Date End Date Deedee Low PA PCP - General Physician [employer] Lieutenant 01/02/16 documented as of this encounter
--- OUTSIDE RECORDS SUMMARY | 2024-02-24 17:23 | XMS_ITS | Encounter Summary ---
Author Organization [facility] Address [address] [place] [address] Care Team Providers Care Farmworker Dairy Name Role Phone Deedee Low Primary Care Provider [phone] Reason for Visit * Behavioral Health - Outpatient (Routine) - Closed Specialty Diagnoses / Procedures Referred By Angelita silva Referred To Contact Behavioral Health Diagnoses MDD recurrent Mod Procedures Adult [facility] Behavioral Health Adult [address] [address] [place] [address] Becca Almeida MD [address] [facility] [address] [place] [address] Referral ID Status Reason Start Date Expiration Date Visits Re quested Visits Authorized [id number] Closed 01/11/2016 02/10/2017 1 4 Encounter Details Date Type Department Care Team (Latest Contact Info) Description 01/17/2016 7:00 AM BIOLOGICAL PHOTOGRAPHER - 01/17/2016 11:59 PM [facility] Hospital Encounter [facility] IOP Program [address] [facility] [place] [id number] Becca Almeida MD [address] [facility] [address] [place] [address] Discharge Disposition: Home or Self Care Social [...] by mouth daily. fluticasone (FLONASE) 50 mcg/spray [place], SuspensionIndications:a llergic rhinitis,pt takes in the evening 5pm Administer 2 Sprays in each nostril daily. rizatriptan (MAXALT RETAIL CONSULTANT) 10 mg Tablet, Rapid DissolveIndications:hea dache disorder Place 10 mg inside cheek every 2 hours as needed for Migraine may repeat in 2 hours; max dose 30mg in 24 hours . documented as of this encounter Progress Notes * Michelle Holden LPC - 01/18/2016 8:31 AM CST All entries by JOSE ENRIQUE Tay from 01/17/2016 reviewed. Aydee Valenzuela LPC [place] LOCATED [facility]IN [facility] license #[id number] OGICAL PHOTOGRAPHER * Hamida Avendaño - 01/17/2016 2:49 PM CST [facility] Intensive Outpatient Therapy Note Group start time: 1230 Group end time: 1330?? Type of Group:?? process group Alannah's primary Treatment Plan goal(s): coping skills for depression Clinical impressions for this session of group therapy, including progress toward Alannah's statedgoal:??Pt was not in afternoon group. ? OGICAL PHOTOGRAPHER * Johana Diaz LPC - 01/17/2016 2:15 PM CST [facility] Intensive Outpatient Therapy Note Group start time: 1050 Group end time: 1153 Type of Group: process group Alannah's primary [...] a personal level at this time. Pt asked questions and gave supportive andencouraging feedback to group members. Pt appeared alert, attentive and maintained good eye contactwith group members that did share on a personal level. Pt seemed to benefit from group therapy by listening to group members share effective coping skills for depression and anxiety. Therapist provided structure, supportive feedback, encouragement, and asked question of group members during group therapy. OGICAL PHOTOGRAPHER * Johana Diaz LPC - 01/17/2016 1:13 PM CST [place] Intensive Outpatient Therapy Note Group start time: 930 Group end time: 1030 Type of Group: process group Alannah's primary Treatment Plan goal(s): coping skills for depression, anxiety Alannah's response to group therapy: Cognitive Function: oriented x3 Affect: blunted Mood: within normal limits Functional Status: intact Interpersonal: normal and Interactive Participation Level: actively participated Safety issues of concern for Alannah Are there any safety concerns at this time for Alannah? none Medication Compliance as reported by Alannah: Are there any concerns with medication compliance at this time? none Clinical impressions for this session of group therapy, including progress toward Alannah's statedgoal: Pt states I had a crazy weekend. I have several house guests which increased my anxiety. Theday after they left I had a migraine and I spent the day in bed. Yesterday i could not come becauseI had a flat tire and I had to wait 2.5 hours for it to get fixed. I did go back to school and I amgetting caught up. I made up my mid term exam. I am overwhelmed with getting everything done for school. I am leaving for [place] Saturday and I will not be back until next Saturday. Pt gave supportive and encouraging feedback to group members. Pt asked group members question. Pt may have benefited by listening to group members share healthy coping skills for anxiety and depression. OGICAL PHOTOGRAPHER documented in this encounter Plan of Treatment Not on file documented as of this encounter Visit Diagnoses Not on filedocumented in this encounter Care Teams Farmworker Dairy Relationship Specialty Start Date End Date Deedee Low PA PCP - General Physician Extruder Operator Multiple 01/02/16 documented as of this encounter
--- OUTSIDE RECORDS SUMMARY | 2024-02-24 17:23 | XMS_ITS | Encounter Summary ---
Author Organization [facility] Address [address] [place] [address] Care Team Providers Care Agency Legal Counsel Name Role Phone Deedee Low Primary Care Provider [phone] Reason for Visit * Behavioral Health - Outpatient (Routine) - Closed Specialty Diagnoses / Procedures Referred By Angelita silva Referred To Contact Behavioral Health Diagnoses MDD recurrent Mod Procedures [facility] Adult [address] [place] [address] Becca Almeida MD [address] 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 [facility] [address] [place] [address] Discharge Disposition: Home or Self Care Social [...] on file documented as of this encounter Discharge Instructions * Discharge Instructions* Johana Diaz, TECHNICAL OPERATIONS SPECIALIST - 01/18/2016 12:09 PM FISH HOUSE WORKER Discharge Instructions Follow Up Appointments: MD: Medication management with psychiatrist, list provided to family and despite staff recommendations to schedule follow up appointment prior to discharge no appointment has been scheduled. Pt getting meds from PCP Deedee Low Therapist: Maryjane Diamond Sunday January 31, 2016 @ 2:00 PM Support group: Other recommendations, if applicable: Call your psychiatrist/Counselor Immediately if you or your Family Members observe signs of relapse: threats/thoughts of harm to self or others, Increase in anxiety or panic attacks, Increase in depression, Isolation or inactivity , decreased ability to function/cope Activity and Socialization: >Establish a daily routine that is realistic >Obtaining adequate rest and sleep >Follow your doctor's advice on the best exercise for you >Participate in leisure and recreational activities every week >Avoid alcohol and drugs >Assertively communicate your thoughts and feelings >Maintain contact with at least one person you can talk with >Speak positively about self, emphasizing your strengths Suicide Prevention/Crisis Hotlines [facility] Health Intake Department [phone] [facility] Health Intake Department is professionally staffed and offers free, confidential evaluations for anyone needing assistance with a psychiatric, behavioral or addictive disorder. Evaluations, as well as referrals to physicians or community resources, are available 24 hours a day, 7 days a week. [facility] 316-253-BUMK (6508) [facility] is one of the nation???s [facility] suicide prevention and crisis hotlines. [facility] operates 24 hours a day, 7 days a week, 365 days a year. [facility] ([facility]) [phone] (toll free) [facility] ([facility]) is a professionally staffed crisis response service. [facility] provides expert behavioral health, crisis response, and outreach services, 24 hours a day, seven days a week to agencies and companies worldwide. National Suicide Prevention Hotline 6-515-513-TALK (8125) A free, 24-hour hotline available to anyone in suicidal crisis or emotional distress. Your call will be routed to the nearest crisis center to you. National [facility] Network 9-068-UNFHVTM KUTO (Kids Under Twenty-One) Crisis Helpline 2-837-917-LUCILLE (2689) Youth staffed every day after 4pm FISH HOUSE WORKER The [facility] Crisis Helpline is a confidential telephone hotline available to any youth who may be in need of assistance, referral information or crisis services. The [facility] Helpline is one of a handful offlowers hospital staffed exclusively by youth volunteers. [facility] on Mental Illness ([facility]) [phone] HOUSE WORKER documented in this encounter Medications at Time of Discharge Medication Sig Dispensed Refills Start Date End Date cholecalciferol 50,000 unit CapsuleIndications:1Saturday Take 50,000 Units by mouth. sertraline (ZOLOFT) [...] by mouth daily. fluticasone (FLONASE) 50 mcg/spray [place], SuspensionIndications:a llergic rhinitis,pt takes in the evening 5pm Administer 2 Sprays in each nostril daily. rizatriptan (MAXALT BALLOON PILOT) 10 mg Tablet, Rapid DissolveIndications:hea dache disorder Place 10 mg inside cheek every 2 hours as needed for Migraine may repeat in 2 hours; max dose 30mg in 24 hours . documented as of this encounter Progress Notes * Johana Diaz LPC - 01/18/2016 1:08 PM CST [place] Intensive Outpatient Therapy Note Group start time: 1230 Group end time: 1330 Type of Group: psycho-educational group Pt left early to go out of town. Pt did not attend afternoon group. HOUSE WORKER * Johana Diaz LPC - 01/18/2016 12:57 PM CST [place] Intensive Outpatient Therapy Note Group start time: 1055 Group end time: 1200 Type of Group: process group Alannah's primary Treatment Plan goal(s): pt to be discharged Alannah'vipul response to group therapy: Cognitive Function: oriented [...] a personal level at this time. Pt did give supportive and encouraging feedback to group members. Pt appeared alert, attentive and maintained good eye contact with group members that did share on a personal level. Pt seemed to benefit from group therapy by listening to group members share effective coping skills for depression, anger and anxiety. Therapist provided structure, supportive feedback, encouragement, and asked question of group members during group therapy. Pt to be discharged from [facility]. HOUSE WORKER * Johana Diaz LPC - 01/18/2016 12:53 PM CST [facility] Intensive Outpatient Therapy Note Group start time: 935 Group end time: 1035 Type of Group: process group Alannah's primary Treatment Plan goal(s): pt to be discharged Dianne response to group therapy: Cognitive Function: oriented x3, tangential Affect: normal Mood: within normal limits Functional [...] progress toward Alannah's statedgoal: Pt states I am getting discharged today. I am leaving for [place] this afternoon to visit a friend. I feel that the increase in zoloft has really helped my mood. I am trying to handle my anxiety without taking medications. I still have interrupted sleep. I am feeling excited, anxious and nervous. I had to take my friends dog to the vet this morning. I put in another application for a dog. I have not been back to [place] since November and I want to call one of the pastors to address my anxiety about returning. Pt gave supportive and encouraging feedback to group members. Pt to be discharged from [facility]. HOUSE WORKER * Johana Diaz LPC - 01/18/2016 12:45 PM CST DISCHARGE SUMMARY Patient: Alannah Ruano Admission Date: 01/11/2016 Discharge Date: 01/18/2016 Physician: Dr. Becca Almeida DISCHARGE MEDICATIONS Current Outpatient Prescriptions Medication Sig Dispense Refill [...] mouth daily. ??? fluticasone (FLONASE) 50 mcg/spray [place], Suspension Administer 2 Sprays in each nostril daily. ??? rizatriptan (MAXALT BALLOON PILOT) 10 mg Tablet, Rapid Dissolve Place 10 mg inside cheek every 2 hours asneeded for Migraine may repeat in 2 hours; max dose 30mg in 24 hours . No current facility-administered medications for this encounter. REASON FOR TREATMENT RFV/CC: I am having trouble with depression and anxiety/I thought about OD on pills today (01/02/16 1604) Narrative Summary/History of Present Illness: Precipitating event(s) [...] login on the computer ?? when at [facility], I forgot if I was by myself [...] [facility] M[facility] Ptis agreeable with the plan.?? Major Change/Loss/Stressor: (01/02/16 1612) COURSE OF TREATMENT During the course of treatment pt participated in group therapy and was provided a treatment plan. Pt came into tx with increased depression and anxiety. Pt was able to verbalize triggers of depression and anxiety while in group therapy. Pt able to implement healthy coping skills for depression andanxiety while in IOP. Pt Taking medications as prescribed by . Pt denies SI. Pt mood improved andpt to be discharged from IOP. H&P AXIS I:?? Major depressive disorder, recurrent. ?? AXIS II:?? Deferred. ?? AXIS III: 1. Diabetes mellitus. 2. Hypertension. 3. Asthma. 4. Migraines. ?? AXIS IV:?? School. ?? AXIS V:?? 50. DISCHARGE DIAGNOSIS AXIS I: Major Depressive Disorder, recurrent SERVICES PROVIDED 4 days of psych IOP Condition at Discharge: Pt mood stable. Pt had a decrease in sx of depression and anxiety. Pt taking medications as prescribed by MD. Follow-up Appointments: Medication management with psychiatrist, list provided to family and despite staff recommendations to schedule follow up appointment prior to discharge no appointment has been scheduled. Pt PCP )Deedee Low) prescribing medications. Maryjane Diamond Sunday January 31, 2016 @ 2:00 for individual therapy. Staff Signature: Johana Diaz LPC Date: 01/18/2016 HOUSE WORKER * Johana Diaz LPC - 01/18/2016 12:34 PM CST Discharge Note Start/end time: 1203/1213 Met 1:1 w/ Alannah to discuss d/c plan. Pt verbalized readiness for d/c. Discussed pt progress, txgoals and staff recommendations. Reviewed d/c instructions w/ Alannah who verbalized agreement andunderstanding. Alannah signed acknowledgement that written copy of discharge instructions was provided. Pt given opportunity to have questions answered. Support and encouragement provided. HOUSE WORKER * Becca Almeida MD - 01/18/2016 9:54 AM CST Reports feeling better, tolerating treatment well, feels current meds are helping with coping skills. Increase in zoloft dose helped a lot with depression Requesting for discharge because of difficulty with driving here every day. I will try to lessen klonapin use Denied psychosis, denied SI/HI, feels IOP helped with coping skills. O:MSE: Alert O X [...] visual hallucinations. Insight: good. Judgement: good. A/P: ok to discharge today, agreed to comply with after care. HOUSE WORKER documented in this encounter Plan of Treatment Not on file documented as of this encounter Visit Diagnoses Not on filedocumented in this encounter Care Teams Agency Legal Counsel Relationship Specialty Start Date End Date Deedee Low PA PCP - General Physician Textile Science Technician 01/02/16 documented as of this encounter
--- OUTSIDE RECORDS SUMMARY | 2024-02-24 17:23 | XMS_ITS | Encounter Summary ---
Author Organization [facility] Address [address] [place] [address] Care Team Providers Care Car Repairman Name Role Phone Deedee Low Primary Care Provider [phone] Reason for Visit * Reason Onset Date Comments Other 01/16/2016 Encounter Details Date Type Department Care Team (Late st Contact Info) Description 01/16/2016 Telephone [facility] IOP Program [address] [place] [address] Becca Almeida MD [address] [facility] [address] [place] [address] Other Social History Tobacco Use Types Packs/Day [...] encounter Miscellaneous Notes * Telephone Encounter - Shantelle Jaimes RN - 01/16/2016 11:05 AM ACUTE CARE OCCUPATIONAL THERAPIST Pt called and left message - has flat tire and unable to attend IOP; plans to attend tomorrow. E CARE OCCUPATIONAL THERAPIST documented in this encounter Plan of Treatment Not on file documented as of this encounter Visit Diagnoses Not on filedocumented in this encounter Care Teams Car Repairman Relationship Specialty Start Date End Date Deedee Low PA PCP - General Physician Chalk Molding Machine Operator 01/02/16 documented as of this encounter
--- OUTSIDE RECORDS SUMMARY | 2024-02-24 17:23 | XMS_ITS | Continuity of Care Document ---
Author Organization [facility] Address [address] [place] [address] [address] [place] [address] Phone Care Team Providers Care Body Maker Name Role Phone Milagro Hoyos OT Unavailable Unavailable Procedures Procedure Date Therapeutic Activities Neuromuscular Re-Ed Manual Therapy Hot or Cold Pack Therapeutic Activities Neuromuscular Re-Ed Manual Therapy Hot or Cold Pack Therapeutic Activities Therapeutic Exercise Manual Therapy Hot or Cold Pack Therapeutic Activities Neuromuscular Re-Ed Manual Therapy Hot or Cold Pack Therapeutic Activities Neuromuscular Re-Ed Manual Therapy Hot or Cold Pack Therapeutic Activities Neuromuscular Re-Ed Manual Therapy Hot or Cold Pack Therapeutic Activities Neuromuscular Re-Ed Manual Therapy Hot or Cold Pack Therapeutic Activities Neuromuscular Re-Ed Therapeutic Exercise Hot or Cold Pack Therapeutic Activities Neuromuscular Re-Ed Hot or Cold Pack Therapeutic Exercise Therapeutic Activities Therapeutic Exercise Neuromuscular Re-Ed Hot or Cold Pack Therapeutic Activities Neuromuscular Re-Ed Therapeutic Exercise Hot or Cold Pack Identified as not an unhealthy alcohol u ser Not identified as unhealthy alcohol via screening OT Evaluation Low Complexity Therapeutic Activities Manual Therapy Hot or Cold Pack Advance Directives Directive Yes / No Effective Date File Name No Information Encounters Encounter Description Practice Location Reason(s) For Visit Diagnoses Date Provider Providers Copied on Encounter [facility], [id number], tel:[phone] Gary No Information 4 Soha Agudeloe. . [facility], [id number], tel:[phone] [place] No Information 4 Hoyos Milagro. . Referring Provider: Raul Pool, [address], [place], [address]. tel:[phone] [facility] [address], [id number], tel:[phone] Gary No Information Nov- 4 Hoyos Milagro. . Referring Provider: [place], [address]. tel:[phone] [facility] [address] [facility] [address] [place] [address], [id number], tel:[phone] Gary No Information Nov- 4 Soha Abdallayenne. . Referring Provider: [place], [address]. tel:[phone] [place], [place] [address] [address], [place], [place], [id number], [place] tel:[phone] Gary No Information 4 Hoyos Milagro. . Referring Provider: Raul Pool, [address], [place], [address]. tel:[phone] [facility] [address], [place], [place], [id number], [place] tel:[phone] Gary No Information 4 Hoyos Milagro. . Referring Provider: Raul Pool, [address], [place], [address]. tel:[phone] [facility], [place], [place], [id number], tel:[phone] Gary No Information 4 Hoyos Milagro. . Referring Provider: Raul Pool, [address], [place], [address]. tel:[phone] [facility] [facility], [place], [id number], [place] tel:[phone] Gary No Information 4 Hoyos Milagro. . Referring Provider: Raul Pool, [address], [place], [address]. tel:[phone] [facility], [place], [place], [id number], [place] tel:[phone] Gary No Information 4 Hoyos Milagro. . Referring Provider: Raul Pool, [address], [place], [address]. tel:[phone] [facility], [place], [place], [id number], [place] tel:[phone] Gary No Information 4 Hoyos Milagro. . Referring Provider: Raul Pool, [address], [place], [address]. tel:[phone] [place] [address], [id number], tel:[phone] Gary No Information 4 Hoyos Milagro. . Referring Provider: Raul Pool, [address], [place], [address]. tel:[phone] [facility] [address] [facility] [address] [place] [address], [id number], tel:[phone] Gary No Information 4 Hoyos Milagro. . Referring Provider: Raul Pool, [address], [place], [address]. tel:[phone] [facility] [address], [id number], [phone] Gary No Information 4 Hoyos Milagro. . Referring Provider: Raul Pool, [address], [place], [address]. tel:[phone] Family History Family Member Type Diagnosis Age At Onset No Information Payers Payer name Insurance type Covered republican ID Mary menoncliff(s) [facility] CI [id number] Social History Type Description Quantity Date Captured Comments Sex Female Smoking Status No Information Chief Complaint And Reason For Visit No Information Reason For Referral Reason For Referral No Information History Of Present Illness Encounter Date Complaint History Of Prese nt Illness No Information Functional Status Date Functional Assessmen t No Information Instructions Date Instruction Additional Infor mation No Information Assessments Type Assessment Date No Information Patient Care Teams Name Effective Dates (start - stop) Status Members No Information
== END 2024-02-21 14:16 | disposition home or self-care (01) ==
PROVIDERS: PCP Physician Assistant; Visit Provider Urology
DX: N20.1 Calculus of ureter (principal); Z97.5 Presence of (intrauterine) contraceptive device
CPT/HCPCS: 74018

== ENCOUNTER 2024-02-24 16:56 | Outpatient (CLI) | payer OTHER, SELFPAY ==
[2024-02-24 17:30] LABS: Add Urine Microscopic? NO; Appearance Urine Clear (Clear); Bilirubin Urine Negative (Negative); Blood Urine Negative (Negative); Color Urine Yellow (Yellow); Glucose Urine UA 3+ mg/dL (Negative); Ketones Urine Negative (Negative); Leukocyte Esterase Ur Negative LEU/UL (Negative); Nitrate Urine Negative (Negative); Protein Urine Negative (Negative); Specific Grav Ur 1.041 (1.001-1.035); pH Urine 6.5 (5.0-9.0)
[2024-02-24 17:40] LABS: Anion Gap 3 mmol/L (4-12); Blood Urea Nitrogen 11 mg/dL (7-17); Calcium 9.6 mg/dL (8.4-10.2); Carbon Dioxide 32 mmol/L (22-30); Chloride 104 mmol/L (98-107); Estimated Glomerular Filt Rate > 60; Glucose 105 mg/dL (65-110); Potassium 3.6 mmol/L (3.4-5.0); Sodium 139 mmol/L (137-145)
[2024-02-28 15:43] LABS: Carbamazepine Tegretol <0.2 mcg/mL (4.0-12.0)
== END 2024-02-24 16:57 | disposition home or self-care (01) ==
PROVIDERS: Anesthesiology; PCP Physician Assistant; Visit Provider Urology
DX: N20.1 Calculus of ureter (principal); E11.9 Type 2 diabetes mellitus without complications; Z79.899 Other long term (current) drug therapy
CPT/HCPCS: 36415; 80048; 80156; 81003

== ENCOUNTER 2024-02-25 01:26 | Day surgery (SDC) | payer OTHER, SELFPAY ==
[2024-02-21 15:24] VITALS: BMI 36.9
--- NOTE | 2024-02-21 15:27 | PC.NURSE ---
Report to the Outpatient Waiting Room, entrance under the green pavilion located off [facility], at time _130pm_ on date _[id number]_. Planned Procedure Time: _330pm_.? Time changes happen often and if your time is changed the preop area will call you the afternoon before. - You and your visitor will be asked to self-screen and do not enter if you have any COVID symptoms. Please call surgeon if you need to reschedule. - A mask is optional within the hospital at this time. Patients may have clear liquids (water, carbonated beverages, clear teas, apple juice) until 3 hours prior to surgery with a maximum of 20 ounces. - No food from midnight until time of surgery and no smoking. This includes no chewing gum, candy or mints. Take only the following medications with a SIP of water on the morning of surgery: ____Bupropion, Carbamazine and Advair DO NOT STOP ANY OF YOUR OTHER PRESCRIPTION MEDICATIONS PRIOR TO SURGERY EXCEPT THE FOLLOWING Medications to discontinue per physician ___None Date to take last dose Please no make-up, nail thai, hairspray, perfume, deodorant, or body powder the day of surgery.? No jewelry (including any body piercings) or valuables the day of surgery, leave them at home.? Please take a shower or bath the night before, or the morning of, surgery with an antibacterial soap.? Wear comfortable, loose fitting clothing.? . - Jewelry must be removed prior to entering the operating room.? Rings and piercings that are not removed may be cut off. - The hospital will not accept responsibility for valuables.? - Please leave all valuables, including medications, at home the day of surgery. If you are going home after surgery, a licensed pick up driver must drive you home.? - NO public transportation without another adult if you receive anesthesia. - We recommend that an adult stay with you for 24 hours following discharge. - We also recommend that you do not drive, make important decision, drink alcoholic beverages, or take any drugs that were not prescribed by your health care provider for at least 24 hours after your discharge time. Follow any additional instructions given to you from your surgeon. Telephone instructions given to __Alannah__and asked if any additional questions and then verbalized understanding. Patient advised to call surgeon office or pre surgery nurse liaison [phone] if any additional questions.
--- NOTE | ~2024-02-25 | CT_ITS ---
EXAMINATION: CT abdomen pelvis wo con DATE: 02/25/2024 14:27 INDICATION: Renal stone TECHNIQUE: Computed tomography (CT) of the abdomen and pelvis was performed without intravenous contr ast. Automated exposure control and iterative reconstruction technique were employed. The dose-length product was 593.41 mGy-cm. COMPARISON: 11/05/2019 FINDINGS: There is new elevation of the left hemidiaphragm with left basilar atelectasis. Heart size is normal. No pericardial or pleural effusion. Small sliding-type hiatal hernia. Postoperative change of prior sleeve gastrectomy with suture line along the greater curvature of the stomach. Liver, gallbladder, s pleen, pancreas and left adrenal gland are normal. 2 x 1.4 cm low-attenuation left adrenal adenoma. 1 mm and 2 mm nonobstructing stones at the upper pole of the right kidney. No stones at the left kidne y or bilateral ureters with no hydronephrosis. No significant change in a 5.9 cm complex hernia/hemor rhagic cyst at the upper pole the right kidney which is isodense to the surrounding kidney but which demonstrated no enhancement on the prior pre and postcontrast imaging. Also unchanged is a second 1 c m low-attenuation cyst at the lower pole of the right kidney. Bowels including the appendix are scarlet l. Decompressed bladder and right adnexa are normal. 2.5 cm left ovarian cyst/follicle. IUD in expect ed position within the otherwise normal uterus. No free intraperitoneal gas or fluid. No pathological ly enlarged abdominal or pelvic lymphadenopathy. Moderate lower thoracic and mild lumbar spondylosis with chronic likely physiologic mild anterior wedging at T11 and T12. IMPRESSION: 1. A couple small nonobstructing right renal stones measuring up to 2 mm. 2. IUD in expected position. Reviewed, dictated and finalized at location A. [employer]
--- NOTE | 2024-02-25 12:41 | ECG_ITS ---
Test Date: 2024-02-25 14:06:40 Measurements Intervals [place] Rate: 81 P: 5 MD: 161 QRS: -37 QRSD: 80 T: 3 QT: 342 QTc: 398 Interpretive Statements SINUS RHYTHM POSSIBLE ANTERIOR MYOCARDIAL INFARCTION , PROBABLY OLD [30 ms Q WAVE IN V3/V4, OR R < 0.2 mV IN V4] INFERIOR MYOCARDIAL INFARCTION , PROBABLY OLD [40+ ms Q WAVE AND/OR ST/T ABNORMALITY IN II/aVF] No previous ECG available for comparison Electronically Signed On 02-25-2024 16:20:58 BILLBOARD POSTER HELPER by Jaja Hooper M.D.
[2024-02-25 15:00] VITALS: BP 142/92; PULSE 81; RESP 14; TEMP 36.2; O2SAT 100
== END 2024-02-25 15:18 | disposition home or self-care (01) ==
PROVIDERS: PCP Physician Assistant; Visit Provider Urology
PROC: (CPT 52352; principal; 2024-02-25 15:30)
DX: N20.1 Calculus of ureter (principal); Z53.9 Procedure and treatment not carried out, unspecified reason
CPT/HCPCS: 74176; 93005; 99212; G0463

== ENCOUNTER 2025-02-01 14:06 | Emergency (ER) | payer OTHER, SELFPAY ==
--- NOTE | 2025-02-01 14:09 | ED_ITS ---
HPI - URI/Sore Throat General Chief Complaint: Upper Respiratory Infection Stated Complaint: Sinus Infection Symptoms Time Seen by Provider: 02/01/25 14:09 Source: patient Mode of arrival: ambulatory Limitations: no limitations History of Present Illness HPI Narrative: patient is a 44-year-old female who presents with 6 days of cough, sore throat, headache, bilateral ear pain, fatigue and congestion. States she has been running a fever the last 3 days. Highs fever of 101. Did a home COVID test and it was negative. Has been taking Coricidin Related Data Home Medications ?Medication ?Instructions ?Recorded ?Confirmed ?Last Taken ?Type doxycycline hyclate 100 mg capsule 100 mg PO DAILY 02/21/24 Unknown History albuterol sulfate 2.5 mg/3 mL 2.5 mg continuous nebuli zation 03/02/22 02/21/24 Unknown History (0.083 %) solution for nebulization DIRECTED atorvastatin 40 mg tablet 40 mg PO DAILY 03/02/2202/08 Unknown History bupropion HCl 100 mg tablet 100 mg PO DAILY 03/02/22 1 04/23/23 Unknown History dapagliflozin propanediol 10 mg 10 mg PO DAILY 2 02/21/24 Unknown History tablet (Farxiga) ergocalciferol (vitamin D2) 1,250 1,250 mcg PO DAILY 1 05/03/21 02/21/24 Unknown History mcg (50,000 unit) capsule eszopiclone 3 mg tablet 3 mg PO DAILY 03/02/2202/20 Unknown History fluticasone 250 mcg-salmeterol 50 250 inh inhalation A S DIRECTED 03/02/22 02/21/24 Unknown History mcg/dose blistr powdr for inhalation (Advair Diskus) insulin aspart U-100 100 unit/mL 100 unit subcut DAILY 03/02/22 02/21/24 Unknown History subcutaneous solution (Novolog U-100 Insulin aspart) losartan 50 mg tablet 50 mg PO DAILY 03/02/2202/08 Unknown History montelukast 10 mg tablet 10 mg PO DAILY 03/02/2202/08 Unknown History pantoprazole 40 mg tablet,delayed 40 mg PO DAILY 03/0202/21/24 Unknown History release semaglutide 0.25 mg or 0.5 mg (2 0.25 mg subcut WEEKLY 03/02/22 02/21/24 Unknown History mg/1.5 mL) subcutaneous pen injector (Ozempic) topiramate 200 mg tablet 200 mg PO DAILY 03/02/22 Unknown History carbamazepine 200 mg tablet 100 mg PO TID 04/03/23 Unknown History oxymetazoline 1 % topical cream 1 applic topical DAILY 04/03/23 02/21/24 Unknown History (Rhofade) rabeprazole 20 mg tablet,delayed 20 mg PO BID 04/03/23 02/21/24 Unknown History release rimegepant 75 mg disintegrating 75 mg PO DAILY 4 02/21/24 Unknown History tablet (Nurtec ODT) ubrogepant 100 mg tablet (Ubrelvy) 100 mg PO PRN PRN M igraine Headache 04/03/23 02/21/24 Unknown History Allergies Allergy/AdvReac Type Severity Reaction Status Date / Time No Known Allergies Allergy Verified 02/01/25 14:28 Review of Systems Review of Systems: All systems reviewed & are unremarkable except as noted in HPI and below Constitutional: Constitutional: Denies chills, Reports fatigue, Reports f ever(s), Reports headache(s), Denies malaise and Denies weakness Eyes: Eyes: Denies blurry vision, Denies itchy eyes and Denies loss of vision ENT: Reports otalgia, Denies headache(s), Reports nasal congestion, Denies sinus pain and Reports sore throat Cardiovascular: Cardiovascular: Denies chest pain, Denies irregular heart rhythm and Denies dyspnea Respiratory: Respiratory: Reports cough and Denies dyspnea Gastrointestinal: Gastrointestinal: Denies abdominal pain, Denies diarrhea, Denies nausea and Denies vomiting Musculoskeletal: Musculoskeletal: Denies back pain, Denies myalgias and Denies arthralgias Integumentary/Breasts: Skin/Breast: Denies pruritus and Denies rash Neurologic: Denies headache(s), Denies loss of vision and Denies weakness Psychiatric: Psychiatric: Reports no additional psychiatric complaints Endocrine: Endocrine: Denies fatigue Allergic/Immunologic: Allergic/Immunologic: Denies itchy eyes PMFSH Past Medical History Medical History Chronic sinusitis HLD (hyperlipidemia) Essential (primary) hypertension Diabetes mellitus GERD (gastroesophageal reflux disease) Eczema Kidney stones PCOS (polycystic ovarian syndrome) Seasonal allergies Asthma Migraines Surgical History Surgical History S/P myringotomy with insertion of tube S/P nasal surgery Dr. Grimm for chronic sinusitis S/P tonsillectomy and adenoidectomy S/P cubital tunnel release Left Family History Family History Father Family history of heart disease in male family member before age 55 Diabetes mellitus Asthma Hypertension Acute myocardial infarction Cerebrovascular accident COPD (chronic obstructive pulmonary disease) Sibling Hypertension Mother COPD (chronic obstructive pulmonary disease) Grandparent Cerebrovascular accident Alzheimer disease Parkinson disease Social History Social History Smoking status: Never smoker Alcohol intake: current Substance use: never Living arrangements: with family Additional living arrangements comments: Lives in [place], [place] Occupation/Education: occupation Additional occupation/education comments: Works at [employer] Gender identity (if verbalized by the patient): Female Spiritual care concerns: No Agree to blood products: Yes Comments At time of signature, agree with nursing past medical, surgical, social and family history. There is no relevant family history pertinent to the presenting complaint. Exam Const: General: cooperative, healthy appearing, comfortable, no acute distress and well nourished Nutritional Appearance: well nourished Orientati on/consciousness: patient oriented x3 Limitations: no limitations HENMT: Head: normal to inspection, normocephalic and atraumatic Ears: hearing grossly normal bilaterally, external ears normal, TM's normal bilaterally, EAC's normal and no periauricular adenopathy Face/Nose/Sinus: Normal external nose present, Abnormal mucous membranes and turbinates present erythematous bilateral and diffuse, normal facial exam, sinuses nontender and face symmetric Face and sinus: normal facial exam, sinuses nontender and face symmetric Mouth: Yes Normal oral and palatal mucosa present, Yes lip normal, Yes tongue normal, Yes Normal salivary glands and ducts present, Yes oropharynx normal and Yes moist mucous membranes Teeth and gingiva: dentition normal Throat: posterior oropharynx normal, tonsils normal and uvula midline Eyes: General: appearance normal, both eyes and all related structures Alignment and Position: alignment normal and position normal Periorbital: periorbital findings normal Eyelids: eyelids normal Pupils: Equal, round and reactive pupils present Neck: Neck: normal visual inspection, full ROM, no lymphadenopathy and supple Chest: Chest palpation & inspection: normal inspection of the chest and normal palpation of entire chest wall Resp: Effort & Inspection: normal respiratory effort and able to speak in complete sentences Auscultation: clear to auscultation bilaterally, no crackles, no rales, no rhonchi and no wheezes Cardio: Rate: regular rate Rhythm: regular rhythm Heart sounds: S1 normal heart sound present and S2 normal heart sound present GI: Inspection: normal to inspection Skin: General skin exam: normal color and no rashes or lesions noted Neuro: General: patient oriented x3 and moves all extremities Cranial nerves: Yes Equal, round and reactive pupils present Speech: normal speech Gait exam (Neuro): Normal gait present Extrem: General: normal to inspection, full ROM and no edema Psych: Appearance: grossly normal and well kempt Mental Status: mental status grossly normal Speech and movement: Normal speech and movement present Affect: normal affect Attitude: cooperative Thought process: Normal thought process present Course Course Emergency Course: Discharge instructions reviewed with patient, as well as provided in writing per nursing staff. The instructions also include specific and strict return/GO TO THE ER as well as f/u information. All questions have been answered, and the patient deny any further questions with discharge and discharge plan. Portions of this record may have been created with voice recognition software Level of Care: Express Care Visit Vital Signs Vital signs: Vital Signs Temperature 36.2 C L 02/01/25 14:14 Pulse Rate 95 02/01/25 14:14 Respiratory Rate 19 02/01/25 14:14 Blood Pressure 161/84 H 02/01/25 14:14 Pulse Oximetry 100 02/01/25 14:14 Oxygen Delivery Room Air 02/01/25 14:14 Temperature 36.2 C L 02/01/25 14:14 Pulse Rate 95 02/01/25 14:14 Respiratory Rate 19 02/01/25 14:14 Blood Pressure 161/84 H 02/01/25 14:14 Pulse Oximetry 100 02/01/25 14:14 Oxygen Delivery Room Air 11/24/25 14:14 Reviewed MDM - URI/Sore Throat MDM Narrative Medical decision making narrative: Rapid strep was negative. A throat culture is pending. will treat with steroids and antibiotics since she has a history of asthma and bronchitis Pt well hydrated appearing, in no respiratory distress, hemodynamically stable. Recommend supportive care. The patient is stable at time of discharge the clinical impression was discussed and the patient was given the opportunity to ask questions, which were addressed as completely as possible given the information available at present. Anticipatory guidance and return to care precautions were discussed and the importance of primary care follow-up was stressed and encouraged. The patient voiced understanding of the plan, indications to return, and the need for follow-up. Exam findings show no acute concerns or changes Patient is appropriate for outpatient treatment and follow-up. Differential diagnosis considered: Noel virus, strep pharyngitis, allergic rhinitis, upper respiratory tract infection, sinusitis, rhinosinusitis, nasopharyngitis. viral pharyngitis, otitis media, otitis externa, otitis effusion, foreign body, cerumen impaction, viral syndrome, and influenza.? Medical Records Attestation: I reviewed the patient's medical records. Lab Data Attestation: I reviewed the patient's lab results. Labs: Lab Results 02/01/25 Range/Units 14:38 POC Grp A Strep Screen Negative (Negative) Discharge Plan Discharge Clinical Impression: Upper respiratory infection with cough and congestion, Family history of asthma Patient Disposition: Home Condition: Stable Instructions: Upper Respiratory Infection (ED) Additional Instructions: Take antibiotic as prescribed. Take steroids per package instructions, make sure to watch your blood sugar and adjust insulin accordingly. Use cough syrup as needed for cough. Other symptomatic treatments include: -Alternate Tylenol and Motrin per package directions for fever or pain: Tylenol 650-1000mg by mouth every 4-6 hours. Do not exceed 4000mg in 24 hours. Advil (Ibuprofen) 600 mg by mouth every 6 hours. Do not exceed 2400mg in 24 hours. 8 AM: Tylenol 11 AM: Ibuprofen 2 PM: Tylenol 5 PM: Ibuprofen 8 PM: Tylenol 11 PM: Ibuprofen 2 AM: Tylenol 5 AM: Ibuprofen -Antihistamine medication such as Benadryl at night and Zyrtec/Claritin/Sherri during the day can help improve symptoms. -Use Flonase twice a day for 5 days then daily to help reduce the inflammation and dry up your sinuses. -Eat and drink things that are easy to swallow, like tea or soup, or popsicles. -Oral rinses such as: Salt water gargles and/or may use topical anesthetic (eg. Chloraseptic spray) or lozenges to relieve dryness or throat pain). -Frequent hand washing or hand engine lathe set up operator tool is one of the best ways to prevent spread of infection. -Using a vaporizer or humidifier at night will also help thin secretions and help with coughing up phlegm. Call your Primary Care Doctor and make a follow-up appointment in 3 days. If your cough worsens, you develop a fever greater than 103, you develop shaking chills, a fast heartbeat, trouble breathing and/or feel you are are breathing much faster than usual, call your Primary Care Doctor or go to the ER. Your blood pressure was elevated above 120/80 today at Urgent Care. This puts you above the threshold for follow up visit with a primary care provider. High blood pressure does not usually cause any symptoms, however it may lead to kidney failure, stroke, heart disease just to name a few if untreated . Many people are anxious when seeing a provider or nurse. As a result, you are not diagnosed with hypertension at this time unless your blood pressure is persistently high at two office visits at least one week apart. Some things that can help lower blood pressure are lifestyle modifications, such as light exercise, decreased salt in diet, and weight loss. It is important to follow up with a PCP about this within 1 week. Patient Language: Bangladeshi Prescriptions: New promethazine-DM 6.25-15 mg/5 mL syrup 5 ml PO Q4-6H PRN (Reason: cough) Qty: 118 0RF azithromycin 250 mg tablet See Rx Instructions .ROUTE .COMPLEX Qty: 6 0RF Rx Instructions: For 250 mg dose pack: take 500 mg today (day 1), then 250 mg for 4 days (days 2-5) methylprednisolone [Medrol (Ino)] 4 mg tablets,dose pack See Rx Instructions .ROUTE .COMPLEX Qty: 21 0RF Rx Instructions: orally per package directions No Action losartan 50 mg tablet 50 mg PO DAILY atorvastatin 40 mg tablet 40 mg PO DAILY fluticasone propion-salmeterol [Advair Diskus] 250-50 mcg/dose blister with device 250 inh INHALATION DIRECTED albuterol sulfate 2.5 mg /3 mL (0.083 %) solution for nebulization 2.5 mg continuous nebulization DIRECTED insulin aspart U-100 [Novolog U-100 Insulin aspart] 100 unit/mL solution 100 unit subcut DAILY pantoprazole 40 mg tablet,delayed release (DR/EC) 40 mg PO DAILY montelukast 10 mg tablet 10 mg PO DAILY ergocalciferol (vitamin D2) 1,250 mcg (50,000 unit) capsule 1,250 mcg PO DAILY dapagliflozin propanediol [Farxiga] 10 mg tablet 10 mg PO DAILY Ozempic 0.25 mg or 0.5 mg(2 mg/1.5 mL) pen injector 0.25 mg SUBCUT WEEKLY Patient Comments: Fridays bupropion HCl 100 mg tablet 100 mg PO DAILY topiramate 200 mg tablet 200 mg PO DAILY eszopiclone 3 mg tablet 3 mg PO DAILY rabeprazole 20 mg tablet,delayed release (DR/EC) 20 mg PO BID carbamazepine 200 mg tablet 100 mg PO TID Patient Comments: Says takes only once a day. Rhofade 1 % cream 1 applic TOPICAL DAILY Ubrelvy 100 mg tablet 100 mg PO PRN PRN (Reason: Migraine Headache) Nurtec ODT 75 mg tablet,disintegrating 75 mg PO DAILY doxycycline hyclate 100 mg capsule 100 mg PO DAILY Follow-up/Referrals: Maranda,RUSS Mark [Primary Care Provider, Unknown] - 3 Days Stand Alone Forms: Work/School Release IP Time of Disposition: 14:55
[2025-02-01 14:14] VITALS: BP 161/84; PULSE 95; RESP 19; TEMP 36.2; O2SAT 100
[2025-02-01 14:40] LABS: EDSTREPNEGPOS1 Negative (Negative)
== END 2025-02-01 15:00 | disposition home or self-care (01) ==
PROVIDERS: Emergency Provider Nurse Practitioner Family; PCP Physician Assistant
DX: J06.9 Acute upper respiratory infection, unspecified (principal); R05.9 Cough, unspecified; J45.909 Unspecified asthma, uncomplicated; I10 Essential (primary) hypertension; E11.9 Type 2 diabetes mellitus without complications; Z79.4 Long term (current) use of insulin; E78.5 Hyperlipidemia, unspecified; K21.9 Gastro-esophageal reflux disease without esophagitis; E28.2 Polycystic ovarian syndrome
CPT/HCPCS: 87081; 87880; 99213; G0463